=== PATIENT | male | born 2000 | race Two or more races ===

== ENCOUNTER 2021-04-04 16:27 | Emergency (ER) | payer MEDICAID ==
[~2021-04-04] VITALS: Ht 167.6 cm; Wt 114.5 kg
[2021-04-04 16:40] VITALS: BP 131/98
== END 2021-04-04 19:57 | disposition left against medical advice (07) ==
LOC: ER 16:27
DX: R10.9 Unspecified abdominal pain (principal); Z53.21 Procedure and treatment not carried out due to patient leaving prior to being seen by health care provider

== ENCOUNTER 2025-01-29 09:26 | Inpatient (IN) | payer MEDICAID ==
[~2025-01-29] VITALS: Ht 172.7 cm; Wt 105.9 kg
[2025-01-29] VITALS (33 sets, daily range): BP systolic 71–131; BP diastolic 39–104; PULSE 104–149; RESP 17–26; TEMP 93–97; O2SAT 89–100
[2025-01-29] MEDS: MIDAZOLAM DRIP 50 mg/50mL 50 ML IV SCH ×2 (10:00→15:56)
[2025-01-29] MEDS ORDERED: SODIUM CHLORIDE 0.9% 1,000 ML IV ONE ×2 (10:00)
[2025-01-29] MEDS: NOREPINEPHRINE 8 MG/250ML KIT 250 ML IV SCH (10:00)
[2025-01-29] MEDS: SODIUM CHLORIDE 0.9% 1,000 ML IV ONE ×5 (10:00→14:32)
[2025-01-29] MEDS: NOREPINEPHRINE 8 MG/250ML KIT 250 ML IV ONE ×2 (10:03→15:48)
--- NOTE | 2025-01-29 10:04 | ED.PDOC ---
CPR-HPI HPI Comments 24-year-old male, with a history of asthma, is brought in by ambulance from private residence for chief complaint of witnessed cardiac arrest. Per EMS personnel report, mother called at 0837, this morning, after patient stopped breathing in his bed following recent laparoscopy he had performed via outpatient, yesterday. Patient was reported to have been complaining of difficulty breathing in addition to excessive vomiting after returning home from said procedure, last night and this morning. EMS interventions include: Continuous CPR, 1 bicarb, 1 calcium, 5 epinephrine rounds (3 via push), I/O, 7.0 endotracheal intubation at 24 cm at the lip, 2 500 mL NS bolus. Outcome: Spontaneous ROSC achieved after total downtime of 10 minutes; pupils still fixed and dilated. 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 Allergies: Coded Allergies: NO KNOWN ALLERGIES (Unverified , 01/21/14) Information Source: Relative (Mother), Emergency Med Personnel Mode of Arrival: EMS Timing: Hours Onset: At rest, Witnessed Available Hx: Other (Reason outpatient surgical procedure) Treatment: Other (See HPI) Associated signs and symptoms: Other (See HPI) Past Medical History PAST MEDICAL HISTORY: Asthma, Gallstones Surgical History (Other): Laparoscopy-gallstones Family History Family History: Unknown Social History Smoker: Non-Smoker Alcohol: Denies ETOH Use Drugs: Denies Drug Use Lives In: Home All Other Systems: Reviewed and Negative (Comprehensive review of systems are otherwise negative unless stated in HPI.) Physical Exam General Appearance: Severe Distress HEENT: Other (Pupils fixed and dilated) Neck: NOT DONE Respiratory: Respiratory Distress, Other (Intubated) Cardiovascular: Tachycardia Breast Exam: Deferred Gastrointestinal: Distended Genitalia: Deferred Pelvic: Deferred Rectal: Deferred Extremities: NOT DONE Musculoskeletal : Apperance: Normal Neurologic: Other (Unconscious) Cerebellar Function: NOT DONE Reflexes: NOT DONE Skin: Pallor Peripheral Pulses: 3+ Radial (R), 3+ Radial (L) Lymphatic: No Adenopathy Was a procedure done? 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 Indication: Hypotension, Volume resuscitation, Inability to obtain IV Room prepared for procedure: Yes Electron Beam Welder performed hand hygien: Yes Maximal sterile barrier precau: Mask/Eye shield, Sterile gown, Cap, Sterlie gloves, Large sterlie drape Skin Preparation: Chlorhexidine gluconate, Alcohol Skin preparation completely dr: Yes Insertion site: Right, Internal jugular Central line catheter type: [id number] dialysis Number of lumens: 3 Central line exchanged over a: No Antiseptic ointment applied to: No Post Assessment: Chest X-Ray, Proper placement Informed consent obtained: No Risks/benefits/alt described: No Intubation Indication: Respiratory Insufficiency, Airway Protection Prep: Preoxygenation Medicated with: Other (100 mg Rocuronium and 20 mg etomidate) Intubation Approach: Orotracheal (8.0) Intubation size: cm (24cm) Informed consent obtained: No Risks/benefits/alt described: No Notes Patient had to be reintubated, due to suspected airway leakage with previous intubation performed by EMS personnel Differential Dx CPR Differential Diagnosis: Cardiopulmonary arrest, Dysrhythmia, Electrolyte disorder, Myocardial Infarction, Pulmonary Embolus, Respiratory Failure X-Ray, Labs, Meds, VS Vital Signs Date Time Temp Pulse Resp B/P (MAP) Pulse Ox O2 Delivery O2 Flow Rate FiO2 01/29/25 12:00 93.0 127 36 156/56 (89) 100 93.0 01/29/25 12:00 156/56 01/29/25 12:00 156/56 01/29/25 11:55 126 37 134/76 (95) 100 50 01/29/25 11:45 92.8 126 37 134/76 (95) 100 92.8 01/29/25 11:45 134/76 01/29/25 11:30 135/50 01/29/25 11:30 92.8 126 36 117/73 (88) 100 92.8 01/29/25 11:15 127 36 131/55 (80) 100 01/29/25 11:15 165/148 01/29/25 11:10 131/55 01/29/25 11:00 128 34 127/55 (79) 99 01/29/25 11:00 127/55 01/29/25 11:00 127/55 01/29/25 10:45 129/51 01/29/25 10:45 128 29 129/51 (77) 100 01/29/25 10:30 120 14 101/32 (55) 100 01/29/25 10:25 101/32 01/29/25 10:21 120 01/29/25 10:20 82/28 01/29/25 10:15 67/33 01/29/25 10:15 120 11 82/28 (46) 99 01/29/25 10:10 77/32 01/29/25 10:05 68/29 01/29/25 10:00 66/30 01/29/25 10:00 66/30 01/29/25 10:00 121 19 66/30 (42) 94 01/29/25 09:55 116 17 57/33 (41) 97 01/29/25 09:50 116 17 127/71 (89) 97 100 01/29/25 09:50 114 11 64/42 (49) 98 01/29/25 09:42 104 17 99 Mechanical Ventilator+ 60 60 01/29/25 09:42 104 17 134/103 (113) 99 01/29/25 09:26 103 16 127/71 91 Lab Test 01/29/25 11:38 01/29/25 11:28 01/29/25 10:49 01/29/25 09:36 Range/Units Blood Gas Specimen Type Arterial Blood Gas Sample Site Right radial Blood Gas Patient Temperature 37.0 Arterial Blood Date Drawn [id number] Arterial Blood pH 6.856 *L 7.350-7.450 Arterial Blood Partial Pressure CO2 30.4 L 35.0-48.0 mmHg Arterial Blood Partial Pressure O2 334.8 *H 83.0-108.0 mmHg Arterial Blood HCO3 5.3 L 21.0-28.0 mmol/L Arterial Blood Oxygen Saturation 99.0 H 94.0-98.0 % Arterial Blood Base Excess -26.8 L -2.0-3.0 mmol/L Arterial Blood Oxyhemoglobin 97.5 94.0-98.0 % Arterial Blood Carboxyhemoglobin 0.2 L 0.5-1.5 % Arterial Blood Methemoglobin 1.3 0.0-1.5 % Markus Test Modified Blood Gas Total Hemoglobin 8.80 L 13.5-17.5 g/dL Blood Gas Set Respiration Rate 16.0 Blood Gas Modality Vent - ac FiO2 % 100.0 Blood Gas Tidal Volume 500.0 Blood Gas PEEP or CPAP 5.0 Blood Gas Critical Value Read Back Yes Blood Gas Notified Whom dia Abdi Blood Gas Notified Time [id number] Blood Gas Notified By Ballpoint Pen Cartridge Tester yvette gilmore Prothrombin Time 17.5 H 9.3-11.8 sec Prothrombin Time INR 1.74 H 0.9-1.15 Lactic Acid Level 17.9 *H 0.4-2.0 mmol/L Troponin I High Sensitivity 2712 *H 2973 *H </=54 ng/L White Blood Count 20.1 H 4.4-10.8 10^3/uL Red Blood Count 2.69 L 4.5-5.90 10^6/uL Hemoglobin 8.3 L 13.5-17.5 g/dL Hematocrit 28.8 L 41.0-53.0 % Mean Corpuscular Volume 107.4 H 80.0-100.0 fL Mean Corpuscular Hemoglobin 31.0 28.0-32.0 pg Mean Corpuscular Hemoglobin Concent 28.8 L 32.0-36.0 g/dL Red Cell Distribution Width 15.0 H 11.8-14.3 % Platelet Count 234 140-450 10^3/uL Mean Platelet Volume 10.6 6.9-10.8 fL Neutrophils (%) (Auto) 67.3 37.0-80.0 % Lymphocytes (%) (Auto) 19.9 10.0-50.0 % Monocytes (%) (Auto) 12.2 H 0.0-12.0 % Eosinophils (%) (Auto) 0.4 0.0-7.0 % Basophils (%) (Auto) 0.2 0.0-2.0 % Neutrophils # (Auto) 13.6 H 1.6-8.6 10 ^3/uL Lymphocytes # (Auto) 4.0 0.4-5.4 10 ^3/uL Monocytes # (Auto) 2.5 H 0-1.3 10 ^3/uL Eosinophils # (Auto) 0.1 0-0.8 10 ^3/uL Basophils # (Auto) 0 0-0.2 10 ^3/uL Nucleated Red Blood Cells 0.8 % Sodium Level 146 H 136-145 mmol/L Potassium Level 5.6 *H 3.5-5.1 mmol/L Chloride Level 106 98-107 mmol/L Carbon Dioxide Level < 10 *L 20-31 mmol/L Anion Gap 30.44499 H 5-15 Blood Urea Nitrogen 27 H 9-23 mg/dL Creatinine 4.02 H 0.700-1.30 mg/dL Glomerular Filtration Rate Calc 20 >90 mL/min BUN/Creatinine Ratio 6.7 L 10.0-20.0 Serum Glucose 120 H 74-106 mg/dL Calcium Level 10.8 H 8.7-10.4 mg/dL Total Bilirubin 1.3 H 0.2-1.0 mg/dL Aspartate Amino Transferase (AST) 676 H 13-40 U/L Alanine Aminotransferase (ALT) 700 H 7-40 U/L Alkaline Phosphatase 136 H 46-116 U/L Total Protein 4.5 L 5.7-8.2 g/dL Albumin 2.7 L 3.2-4.8 g/dL Current Medications Medications (Trade) Dose Ordered Sig/Serenity Route Start Time Stop Time Status Last Admin Midazolam HCl 50 ml @ 1 mls/hr Q24H IV 01/29/25 10:00 01/29/25 14:28 DC 01/29/25 10:00 Norepinephrine Bitartrate 250 ml @ 3.75 mls/hr Q24H IV 01/29/25 10:00 01/29/25 10:00 Sodium Chloride 1,000 ml @ 1,000 mls/hr Q1H ONCE IV 01/29/25 10:00 01/29/25 10:59 DC 01/29/25 10:00 Sodium Chloride 1,000 ml @ 150 mls/hr Q6H40M ONCE IV 01/29/25 10:00 01/29/25 16:39 DC 01/29/25 10:00 Sodium Bicarbonate 150 ml ONCE ONCE IV 01/29/25 11:00 01/29/25 11:01 DC 01/29/25 11:55 Cefoxitin Sodium 1 gm/Dextrose 50 ml @ 50 mls/hr ONCE ONCE IV 01/29/25 12:45 01/29/25 13:44 DC 01/29/25 13:00 [facility] [id number] [place] [id number] Ph: [phone] DIAGNOSTIC IMAGING Diagnostic Imaging Report : [id number] Signed PATIENT: MARLON PAYNE ACCT: [id number] UNIT: [id number] : 2000 LOC: ER ROOM / BED: / AGE / SEX: 24 / M ADM STATUS: REG ER SERVICE [id number] ORDERING PHYSICIAN: EMIR LIMON MD PROCEDURE(s): CXRP - CHEST PORTABLE REASON: POST INTUBATION ORDER NUMBER(s): [id number], ACCESSION NUMBER(s): [id number] EXAM: XY CHEST PORTABLE Indication: POST INTUBATION Technique: Single frontal view of the chest was obtained Comparison: CT CT CHEST/AB/PL W CON- IV ONLY on DOS: 01/29/25 FINDINGS: Lines and Tubes: Endotracheal tube projects 2.2 cm above the meghan. Right internal jugular central venous catheter tip projects over superior vena cava. Lungs: No focal consolidation. Low lung volumes. Pleura: No effusion. No pneumothorax. Cardiomediastinal contours: Unremarkable Bones: No acute osseous abnormality. IMPRESSION: Lines and tubes as above. Low lung volumes. ATED BY: YURI PURCELL MD DICTATED DATE/TIME: 01/29/25 1034 SIGNED BY: YURI PURCELL MD SIGNED DATE/TIME: 01/29/25 1034 CC: [place] [id number] Ph: [phone] DIAGNOSTIC IMAGING Diagnostic Imaging Report : [id number] Signed PATIENT: MARLON PAYNE ACCT: [id number] UNIT: [id number] : 2000 LOC: ER ROOM / BED: / AGE / SEX: 24 / M ADM STATUS: REG ER SERVICE [id number] ORDERING PHYSICIAN: EMIR LIMON MD PROCEDURE(s): HWOCT - HEAD WITHOUT CONTRAST REASON: altered ORDER NUMBER(s): [id number], ACCESSION NUMBER(s): [id number] EXAM: CT HEAD WITHOUT CONTRAST INDICATION: Altered TECHNIQUE: CT of the head without intravenous contrast. Coronal and sagittal reformatted images are submitted. Radiation Dose : 1. Head: CT Dose: CTDI volume is 20.7 mGy. Dose-length product is 1683.6 mGy*cm The dose indicators for CT are the volume Computed Tomography (CT) Dose Index (CTDIvol) and the Dose Length Product (DLP), and are measured in units of mGy and mGy-cm, respectively. These indicators are not patient dose, but values generated from the CT scanner acquisition factors. The report includes radiation exposure data for exposures received during this examination. All CT scans at this medical facility are performed using dose modulation techniques as appropriate to a performed exam including the following: Automated exposure control was utilized; adjustment of the MA and/or KV according to patient size; and use of iterative reconstruction technique. COMPARISON: None FINDINGS: There is no evidence of acute intracranial hemorrhage, extra-axial collection, mass effect, midline shift, herniation or hydrocephalus. The ventricles, sulci and cisterns are age appropriate. The mario-white differentiation is intact. The visualized paranasal sinuses and mastoid air cells are clear. No depressed calvarial fracture. The surrounding soft tissues are unremarkable. IMPRESSION: 1. No evidence of acute intracranial abnormality. ATED BY: SUSIE TRAORE MD DICTATED DATE/TIME: 01/29/25 111 SIGNED BY: SUSIE TRAORE MD SIGNED DATE/TIME: 01/29/25 1112 CC: Patient unconscious pain Had CPR prior to coming. Pulses return prior to coming to the ER. Pupils fixed and dilated. ET tube not in place. Had to place new ET tube. EKG does not show any acute changes possible CPR induced ischemia. Abdomen is distended. Spent 45 minutes stabilizing the patient at bedside. He will possibly need blood. Possibly bleeding. Will hold off any blood thinners. WBC elevated. Possible sepsis. Establish intravenous access. Was given fluids. Potassium elevated. Recently had surgery [facility]. CT scan of the abdomen reviewed does show bleeding. Blood transfusion. Contacted the surgeon. Continue monitoring. Time of 1ST Reevaluation: 09:57 Reevaluation 1ST: Unchanged Patient Education/Counseling: Other (patient intubated ) Family Education/Counseling: Treatment SEPSIS Sepsis Screen Physician Orders Chest Portable (01/29/25 09:44) Rass Sedation Scale Q1HR (01/29/25 09:47) Norepinephrine 8 Mg/250ml Kit (Levophed) (01/29/25 10:00) Head Without Contrast (01/29/25 09:54) Urinalysis (01/29/25 09:54) Blood Culture (01/29/25 09:54) Ct Chest/Ab/Pl W Con- Iv Only (01/29/25 09:54) Abg W/ Co-Ox (01/29/25 11:00) Respiratory Culture W/ Gs (01/29/25 10:00) Vent Ip Init (01/29/25 09:50) Communication Order (01/29/25 10:05) Electrocardigram (01/29/25 10:23) Sodium Chloride 0.9% (01/29/25 11:00) Packedcells -Active Bleeding (01/29/25 11:19) Type And Screen (01/29/25 11:19) Sepsis Reassesment After Fluid (01/29/25 ) Initiate Sepsis Protocol (01/29/25 ) Communication Order (01/29/25 12:31) Frozen Plasma (01/29/25 13:02) Vital Signs Date Time Temp Pulse Resp B/P (MAP) Pulse Ox O2 Delivery O2 Flow Rate FiO2 01/29/25 12:00 93.0 127 36 156/56 (89) 100 93.0 01/29/25 12:00 156/56 01/29/25 12:00 156/56 01/29/25 11:55 126 37 134/76 (95) 100 50 01/29/25 11:45 92.8 126 37 134/76 (95) 100 92.8 01/29/25 11:45 134/76 01/29/25 11:30 135/50 01/29/25 11:30 92.8 126 36 117/73 (88) 100 92.8 01/29/25 11:15 127 36 131/55 (80) 100 01/29/25 11:15 165/148 01/29/25 11:10 131/55 01/29/25 11:00 128 34 127/55 (79) 99 01/29/25 11:00 127/55 01/29/25 11:00 127/55 01/29/25 10:45 129/51 01/29/25 10:45 128 29 129/51 (77) 100 01/29/25 10:30 120 14 101/32 (55) 100 01/29/25 10:25 101/32 01/29/25 10:21 120 01/29/25 10:20 82/28 01/29/25 10:15 67/33 01/29/25 10:15 120 11 82/28 (46) 99 01/29/25 10:10 77/32 01/29/25 10:05 68/29 01/29/25 10:00 66/30 01/29/25 10:00 66/30 01/29/25 10:00 121 19 66/30 (42) 94 01/29/25 09:55 116 17 57/33 (41) 97 01/29/25 09:50 116 17 127/71 (89) 97 100 01/29/25 09:50 114 11 64/42 (49) 98 01/29/25 09:42 104 17 99 Mechanical Ventilator+ 60 60 01/29/25 09:42 104 17 134/103 (113) 99 01/29/25 09:26 103 16 127/71 91 Laboratory Tests Test 01/29/25 09:36 01/29/25 10:49 White Blood Count 20.1 10^3/uL (4.4-10.8) H Lactic Acid Level 17.9 mmol/L (0.4-2.0) *H Medications Medications Dose Ordered Sig/Serenity Route Start Time Stop Time Status Last Admin Dose Admin Bupivacaine HCl 30 ml STK-MED ONCE IJ 01/29/25 12:10 01/29/25 12:07 DC 01/29/25 12:41 Cefoxitin Sodium 1 gm/Dextrose 50 ml @ 50 mls/hr ONCE ONCE IV 01/29/25 12:45 01/29/25 13:44 DC 01/29/25 13:00 Lidocaine HCl 20 ml STK-MED ONCE .ROUTE 01/29/25 12:10 01/29/25 12:06 DC 01/29/25 12:41 Lidocaine HCl 20 ml STK-MED ONCE .ROUTE 01/29/25 12:48 01/29/25 12:44 DC 01/29/25 12:41 Midazolam HCl 50 ml @ 1 mls/hr Q24H IV 01/29/25 10:00 01/29/25 14:28 DC 01/29/25 10:00 Norepinephrine Bitartrate 250 ml @ 3.75 mls/hr Q24H IV 01/29/25 10:00 01/29/25 10:00 Sodium Bicarbonate 150 ml ONCE ONCE IV 01/29/25 11:00 01/29/25 11:01 DC 01/29/25 11:55 Sodium Chloride 1,000 ml @ 150 mls/hr Q6H40M ONCE IV 01/29/25 10:00 01/29/25 16:39 DC 01/29/25 10:00 Sodium Chloride 1,000 ml @ 1,000 mls/hr Q1H ONCE IV 01/29/25 10:00 01/29/25 10:59 DC 01/29/25 10:00 Departure 1 Departure Time of Disposition: 10:39 Impression: Primary Impression: Acute respiratory failure Qualified Codes: J96.01 - Acute respiratory failure with hypoxia Additional Impressions: Sepsis, unspecified organism Qualified Codes: A41.9 - Sepsis, unspecified organism Hyperkalemia Disposition: ADMITTED INPATIENT Admit to: Med Surg Condition: Guarded Critical Care Note Critical Care Time?: Yes (90 min-critical care time only) Heart Score Heart Score: Heart Score Response (Comments) Value History Highly Suspicious 2 EKG Normal 0 Age <45 0 Risk Factors 1 or 2 risk factors 1 Troponin >3 x's Normal limit 2 Total 5 Stability Stability form required: No I personally scribed for EMIR LIMON MD ([email or web address]) on 01/29/25 at 10:04. Electronically submitted by Dany Cruz ([email or web address]). I personally scribed for EMIR LIMON MD ([email or web address]) on 01/29/25 at 10:56. E lectronically submitted by Dany Cruz ([email or web address]). I personally scribed for EMIR LIMON MD ([email or web address]) on 01/29/25 at 15:30. Electronically submitted by Dany Cruz ([email or web address]). I personally scribed for EMIR LIMON MD ([email or web address]) on 01/29/25 at 15:32. Electronically submitted by Dany Cruz ([email or web address]). EMIR LIMON MD Jan 29, 2025 10:04
[2025-01-29 10:12] LABS: Hematocrit 28.8 % (41.0-53.0); Hemoglobin 8.3 g/dL (13.5-17.5); Mean Corpuscular Hemoglobin 31.0 pg (28.0-32.0); Mean Corpuscular Volume 107.4 fL (80.0-100.0); Nucleated Red Blood Cells % 0.8 %
--- NOTE | 2025-01-29 10:26 | ECG ---
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
[2025-01-29 10:32] LABS: Anion Gap 30.00001 (5-15); BUN/Creatinine Ratio 6.7 (10.0-20.0); Chloride 106 mmol/L (98-107)
[2025-01-29 10:33] LABS: Alanine Aminotransferase 700 U/L (7-40); Albumin 2.7 g/dL (3.2-4.8); Alkaline Phosphatase 136 U/L (46-116); Bilirubin, Total 1.3 mg/dL (0.2-1.0); Blood Urea Nitrogen 27 mg/dL (9-23); Calcium 10.8 mg/dL (8.7-10.4); Glucose 120 mg/dL (74-106); Sodium 146 mmol/L (136-145); Total Protein 4.5 g/dL (5.7-8.2)
--- NOTE | 2025-01-29 10:36 | DVH ---
EXAM: XY CHEST PORTABLE Indication: POST INTUBATION Technique: Single frontal view of the chest was obtained Comparison: CT CT CHEST/AB/PL W CON- IV ONLY on DOS: 01/29/25 FINDINGS: Lines and Tubes: Endotracheal tube projects 2.2 cm above the meghan. Right internal jugular central v enous catheter tip projects over superior vena cava. Lungs: No focal consolidation. Low lung volumes. Pleura: No effusion. No pneumothorax. Cardiomediastinal contours: Unremarkable Bones: No acute osseous abnormality. IMPRESSION: Lines and tubes as above. Low lung volumes.
[2025-01-29 10:38] LABS: Carbon Dioxide < 10 mmol/L (20-31); Potassium 5.6 mmol/L (3.5-5.1)
--- NOTE | 2025-01-29 11:14 | DVH ---
EXAM: CT HEAD WITHOUT CONTRAST INDICATION: Altered TECHNIQUE: CT of the head without intravenous contrast. Coronal and sagittal reformatted images are s ubmitted. Radiation Dose : 1. Head: CT Dose: CTDI volume is 20.7 mGy. Dose-length product is 1683.6 mGy*cm The dose indicators for CT are the volume Computed Tomography (CT) Dose Index (CTDIvol) and the Dose Length Product (DLP), and are measured in units of mGy and mGy-cm, respectively. These indicators are not patient dose, but values generated from the CT scanner acquisition factors. The report includes radiation exposure data for exposures received during this examination. All CT scans at this medical facility are performed using dose modulation techniques as appropriate to a performed exam including the following: Automated exposure control was utilized; adjustment of the MA and/or KV according to patient size; and use of iterative reconstruction technique. COMPARISON: None FINDINGS: There is no evidence of acute intracranial hemorrhage, extra-axial collection, mass effect, midline s hift, herniation or hydrocephalus. The ventricles, sulci and cisterns are age appropriate. The mario-white differentiation is intact. The visualized paranasal sinuses and mastoid air cells are clear. No depressed calvarial fracture. The surrounding soft tissues are unremarkable. IMPRESSION: 1. No evidence of acute intracranial abnormality.
--- NOTE | 2025-01-29 11:32 | DVH ---
CLINICAL INFORMATION: Bleeding. Acute loss of consciousness status post surgery. TECHNIQUE: Axial CT images of the chest, abdomen, and pelvis were obtained after the uneventful admin istration of 100 mL of Omnipaque 350 IV contrast. Coronal and sagittal reformatted images were obtain ed, reviewed, and stored. All CT scans at this medical facility are performed using dose modulation t echniques as appropriate to a performed exam including the following: Automated exposure control was utilized; adjustment of the MA and/or KV according to patient size; and use of iterative reconstructi on technique. CTDIvol = 59.91 mGy DLP = 2876.0 mGy-cm COMPARISON: XY CHEST PORTABLE on DOS: 01/29/25 FINDINGS: CT CHEST: Aorta: No aneurysm or dissection. Cardiac: Heart size is within normal limits. No significant calcification. Mediastinum/ana paula: No mass or adenopathy. Endotracheal tube in place, with the tip above the level of the meghan. Enteric tube reaches the stomach. Lungs: Dependent atelectasis. Respiratory motion artifact limits evaluation for subtle findings. No p neumothorax or pleural effusion visualized. Pulmonary arteries: No gross abnormality. Chest wall: No mass or other abnormality. Bones: No acute fracture or suspicious intraosseous lesions. CT ABDOMEN/PELVIS: Liver: There is a large hematoma involving the central aspect of the liver, including portions of the right and left hepatic lobes, poorly delineated from the adjacent liver parenchyma, but appears to m easure at least 7.6 x 8.6 cm, extending adjacent to the gallbladder fossa and communicating beyond th e anterior and lateral aspects of the liver capsule into the adjacent portions of the abdomen and alisia ng the right pericolic gutter. The hemorrhage appears acute. No definite active extravasation of cont rast demonstrated, although examination was not performed as a CTA. Biliary: Postsurgical changes of cholecystectomy with surgical clips at the gallbladder fossa. No aretha iary ductal dilatation. Spleen: Small amount of perisplenic fluid, may be tracking from the hemorrhage associated with the li mary described above. Pancreas: Unremarkable. No inflammatory changes, ductal dilatation, or mass identified. Adrenal glands: Unremarkable. No mass. Kidneys: Atrophic right kidney. There is no hydronephrosis in either kidney. Aorta: No abdominal aortic aneurysm or dissection. Retroperitoneum: No mass or lymphadenopathy. Bowel/mesentery: There are dilated fluid-filled small bowel loops. No transition point to suggest sma ll bowel obstruction. Appendix is visualized and appears unremarkable. Moderate hemorrhage adjacent to the liver, along the right pericolic gutter, and coursing into the pelvis. Small locules of free i ntraperitoneal gas are seen in the upper abdomen, likely due to recent surgery. Pelvic organs: Grossly unremarkable. Bladder: Underdistended and not well evaluated. Circumferential thickening of the bladder wall may b e due to underdistention. Abdominal wall: Small locules of gas in the upper ventral abdominal wall, likely due to recent surger y. Bones: No acute fracture or focal intraosseous lesion. IMPRESSION: 1. Hepatic hematoma measuring up to approximately 8.6 cm in greatest dimension, as described above, w ith hemorrhage extending beyond the liver capsule and into the right pericolic gutter as well as into the pelvis. No definite active arterial bleeding is seen on this exam, although limited evaluation d ue to the timing of contrast, as this was not a CTA exam. 2. Postsurgical changes of cholecystectomy. 3. Dilated fluid-filled small bowel loops, may be due to postoperative ileus. No small bowel obstruct ion. 4. Small volume pneumoperitoneum, likely due to recent surgery. Small volume of gas are seen in the u pper ventral abdomen from the recent surgery. 5. Dependent atelectasis in the lower lobes. Otherwise, no acute disease in the chest. 6. Endotracheal tube and enteric tube in place. 7. Atrophic right kidney incidentally noted. 8. Additional findings as described above. Critical findings Critical Result: Acute hepatic hematoma with hemorrhage extending beyond the liver capsule into the a djacent portions of the abdomen and into the pelvis as detailed above. Findings discussed with EMIR FLOWERS at 01/29/2025 01:15 PM CDT, and acknowledged receipt an d understanding of the findings. ..
[2025-01-29] MEDS: ROCURONIUM 10MG/ML 10ML VIAL IV ONE ×2 (11:39→12:14)
[2025-01-29] MEDS: MIDAZOLAM HCL 5 MG/ML-1ML VIAL ONE (11:39)
[2025-01-29] MEDS: ETOMIDATE (2MG/ML) 20ML VIAL IV ONE ×2 (11:39→12:13)
[2025-01-29] MEDS ORDERED: fentaNYL CITRATE 5 ML ONE (11:40)
[2025-01-29] MEDS ORDERED: MORPHINE SULF PF 5 MG/10 ML VIAL ONE (11:40)
[2025-01-29] MEDS ORDERED: fentaNYL CITRATE 100 MCG/2 ML VL ONE (11:40)
[2025-01-29] MEDS ORDERED: MIDAZOLAM HCL 2MG/2ML 2ml VIAL (1mg/ml) ONE (11:40)
[2025-01-29] MEDS ORDERED: ROCURONIUM 10MG/ML 10ML VIAL IV ONE (11:40)
[2025-01-29] MEDS ORDERED: KETAMINE 50mg/ML 10ml Vial 10 ML ONE (11:45)
[2025-01-29 11:50] LABS: Base Excess -26.8 mmol/L (-2.0-3.0)
[2025-01-29 11:52] LABS: INR 1.74 (0.9-1.15); Prothrombin Time 17.5 sec (9.3-11.8)
[2025-01-29 11:53] LABS: Lactic Acid w/Reflex 17.9 mmol/L (0.4-2.0)
[2025-01-29] MEDS: SODIUM BICARB 8.4% 50Meq/50ml SYR Vial IV ONE ×7 (11:55→20:00)
[2025-01-29] MEDS: IOHEXOL 300 MG/ML 100ML BOTTLE IJ ONE (12:37)
[2025-01-29] MEDS: MIDAZOLAM DRIP 50 mg/50mL 50 ML IV ONE (12:37)
[2025-01-29] MEDS: VASOPRESSIN 20 UNIT/ML ONE ×2 (12:39→21:17)
[2025-01-29] MEDS: MIDAZOLAM HCL 5 MG/ML-1ML VIAL IV ONE (12:40)
[2025-01-29] MEDS: LIDOCAINE 1% HCL (LOCAL ANESTH.) INJ 20ML MDV ONE ×2 (12:41)
[2025-01-29] MEDS: BUPIVACAINE 0.5% MPF INJ 30ML SDV IJ ONE (12:41)
[2025-01-29] MEDS: GELATIN 1 SPONGE SIZE 100 TOP ONE (12:48)
--- NOTE | 2025-01-29 12:55 | DVHINCON2 ---
DATE OF CONSULTATION: 01/29/2025 REQUESTING PHYSICIAN: Jet Monzon MD CONSULTING PHYSICIAN: Robbin Ledesma MD REASON FOR CONSULTATION: Cardiac arrest, postoperative bleeding. HISTORY OF PRESENT ILLNESS: The patient is a 24-year-old male who underwent an uneventful laparoscopic cholecystectomy yesterday. The patient was discharged with stable vital signs, no signs of hemodynamic instability or bleeding. The patient's mother called this morning stating that he was very somnolent, not waking up, and barely responsive. She was instructed to take him to the nearest Emergency Department. At that time, she had already called the emergency paramedics/personnel. The patient arrived to the hospital and developed a cardiac arrest and he was successfully resuscitated. Workup revealed findings consistent with postoperative bleeding in the gallbladder fossa. The patient's history was obtained from the patient's mother. The patient is currently intubated. The patient's mother stated that he was very hungry yesterday. He ate and drank. He developed some nausea and vomiting but no other symptoms. This morning when she went to see him, he was very lethargic. He did wake up but he was very weak. She denied any signs of bleeding from the dressings and denied any abdominal distention. PAST MEDICAL HISTORY: Significant for gallstone pancreatitis and obesity. No other medical history. SURGICAL HISTORY: Recent laparoscopic cholecystectomy. MEDICATIONS: None. ALLERGIES: No known drug allergies. SOCIAL HISTORY: Denies smoking cigarettes, alcohol use, drug use, marijuana use, or vaping. FAMILY HISTORY: Noncontributory. REVIEW OF SYSTEMS: Unobtainable. The patient is intubated with mechanical ventilatory support and sedated. PHYSICAL EXAMINATION: GENERAL: He is laying in bed. He is sedated. VITAL SIGNS: He is afebrile with hemodynamic instability. He is receiving vasopressor support Levophed 8 mcg. Blood pressure at the time was 156/56. Heart rate was in the 150s. HEART: As above. LUNGS: The patient is intubated with mechanical ventilatory support. ABDOMEN: Soft, distended, nontender. No palpable masses, hernias, or visceromegaly. Dressing is intact without signs of bleeding. EXTREMITIES: No edema or tenderness. LABORATORY DATA: Review of his labs demonstrate white blood cell count 20, hemoglobin 8, hematocrit 28. Sodium 146, potassium 5.6, chloride 106, CO2 less than 10, BUN 27, creatinine 4, glucose 120, alkaline phos 136, ALT 700, AST 776, total bilirubin 1.3, lactic acid 17.9. Troponin 29. INR 1.7, PT 17. ABG: pH 7.8, pCO2 30, PaO2 334, bicarb 5, oxygen saturation 99%, and -26 base deficit. IMAGING DATA: CT scan of the abdomen and pelvis reviewed. Postoperative changes consistent with a cholecystectomy. There is blood in the anterior aspect of the liver, gallbladder fossa extending to right paracolic gutter. ASSESSMENT: A 24-year-old male with postoperative bleeding. PLANS AND RECOMMENDATIONS: I had a very intense discussion with the patient's mother. I recommended an emergent exploratory laparotomy. The patient's mother was aware that the attempt will be to control the bleeding. He may require additional procedures. There is risk of injury, stroke, blood clots in legs/lungs, and/or . All questions were answered. She understood and agreed to proceed. MD LAYA Mora/KHADIJAH TID: [id number] RECEIPT: [id number]
[2025-01-29] MEDS ORDERED: HYDROmorphone HCL 2 MG/ML VL/or syr ONE (13:31)
[2025-01-29] MEDS: fentaNYL Drip 2500mCg/250mlNS 250 ML IV SCH (14:15)
--- NOTE | 2025-01-29 14:16 | DVHINCON2 ---
Date of service: Jan 29, 2025 Reason for Consultation Acute kidney injury History of Present Illness 24 years old male with past medical history gallstone pancreatitis, asthma who underwent laparoscopic cholecystectomy on 01/28/2025 in [facility] patient was discharged on same day,, as per medical records patient found to have nausea vomitings and shortness of breath last night and woke up very weak this morning found to have altered level of consciousness and paramedics were called and patient found to be in cardiac arrest CPR was done ROSc obtained however patient had fixed and dilated pupils per ER documentation on Arrival I was called to assess patient in PACU today after his repeat laparotomy, he is found to have gallbladder fossa bleeding, I am unable to assess his pupils as his eyes were covered in plasters , patient is on Levophed, intubated and sedated, has PATRIZIA drain, with Green catheter and no urine output. No family available bedside Past Medical History As per HPI Past Surgical History As per HPI Allergies: Coded Allergies: NO KNOWN ALLERGIES (Unverified , 01/21/14) Current Medications Current Medications Medications (Trade) Dose Ordered Sig/Serenity Route PRN Reason Start Time Stop Time Status Last Admin Midazolam HCl 50 ml @ 1 mls/hr Q24H IV 01/29/25 10:00 01/29/25 14:28 DC 01/29/25 10:00 Norepinephrine Bitartrate 250 ml @ 3.75 mls/hr Q24H IV 01/29/25 10:00 01/29/25 10:00 Midazolam HCl 50 ml @ 1 mls/hr Q24H IV 01/29/25 14:15 01/29/25 15:56 Fentanyl Citrate 250 ml @ 2.5 mls/hr Q24H IV 01/29/25 14:15 Piperacillin Sod/ Tazobactam Sod 50 ml @ 50 mls/hr Q12HR IV 01/29/25 22:00 01/29/25 15:01 DC Vasopressin 20 units/Sodium Chloride 100 ml @ 9 mls/hr Q11H7M IV 01/29/25 15:00 01/29/25 15:39 Piperacillin Sod/ Tazobactam Sod 100 ml @ 25 mls/hr Q12HR IV 01/29/25 22:00 Pantoprazole Sodium (Protonix) 40 mg DAILY IV 01/30/25 10:00 Review of Systems Unable to obtain H&P Exam Vital Signs/I&O Vital Sign Date Time Temp Pulse Resp B/P (MAP) Pulse Ox O2 Delivery O2 Flow Rate FiO2 01/29/25 16:11 119/62 01/29/25 15:58 93.0 139 18 100 93.0 01/29/25 14:20 50 01/29/25 09:42 Mechanical Ventilator+ Physical Exam General intubated and sedated,, overall very pale HEENT-normocephalic, Respiratory-fair air entry bilateral, [id number] heard, tachycardic Abdominal appears distended has PATRIZIA drain Labs/Diagnostic Data Labs/Diagnostic Data Laboratory Tests Test 01/29/25 15:23 01/29/25 14:30 01/29/25 11:38 01/29/25 11:28 Range/Units Blood Gas Specimen Type Arterial Arterial Blood Gas Sample Site Arterial line Right radial Blood Gas Patient Temperature 37.0 37.0 Arterial Blood Date Drawn [id number] Arterial Blood pH 6.956 *L 6.856 *L 7.350-7.450 Arterial Blood Partial Pressure CO2 39.2 30.4 L 35.0-48.0 mmHg Arterial Blood Partial Pressure O2 136.2 H 334.8 *H 83.0-108.0 mmHg Arterial Blood HCO3 8.5 L 5.3 L 21.0-28.0 mmol/L Arterial Blood Oxygen Saturation 95.9 99.0 H 94.0-98.0 % Arterial Blood Base Excess -21.7 L -26.8 L -2.0-3.0 mmol/L Arterial Blood Oxyhemoglobin 94.5 97.5 94.0-98.0 % Arterial Blood Carboxyhemoglobin 0.3 L 0.2 L 0.5-1.5 % Arterial Blood Methemoglobin 1.2 1.3 0.0-1.5 % Markus Test N/a Modified Blood Gas Total Hemoglobin 6.80 *L 8.80 L 13.5-17.5 g/dL Blood Gas Set Respiration Rate 16.0 16.0 Blood Gas Modality Vent - ac Vent - ac FiO2 % 50.0 100.0 Blood Gas Tidal Volume 550.0 500.0 Blood Gas PEEP or CPAP 5.0 5.0 Blood Gas Critical Value Read Back Yes Yes Blood Gas Notified Whom aranza Landa Md t Blood Gas Notified Time [id number] Blood Gas Notified By Supervisor [facility] yvette gilmore Supervisor [facility] yvette gilmore White Blood Count 19.0 H 4.4-10.8 10^3/uL Red Blood Count 2.11 L 4.5-5.90 10^6/uL Hemoglobin 6.5 #*L 13.5-17.5 g/dL Hematocrit 20.0 #L 41.0-53.0 % Mean Corpuscular Volume 94.6 # 80.0-100.0 fL Mean Corpuscular Hemoglobin 30.9 28.0-32.0 pg Mean Corpuscular Hemoglobin Concent 32.6 32.0-36.0 g/dL Red Cell Distribution Width 13.6 11.8-14.3 % Platelet Count 223 140-450 10^3/uL Mean Platelet Volume 9.3 6.9-10.8 fL Neutrophils (%) (Auto) 37.0-80.0 % Lymphocytes (%) (Auto) 10.0-50.0 % Monocytes (%) (Auto) 0.0-12.0 % Basophils (%) (Auto) 0.0-2.0 % Neutrophils # (Auto) 1.6-8.6 10 ^3/uL Lymphocytes # (Auto) 0.4-5.4 10 ^3/uL Monocytes # (Auto) 0-1.3 10 ^3/uL Differential Total Cells Counted 100.0 100 Neutrophils % (Manual) 54 37.0-80.0 Band Neutrophils % (Manual) 14 Lymphocytes % (Manual) 24 10.0-50.0 Monocytes % (Manual) 7 0-12 Eosinophils % (Manual) 0 0-7 Basophils % (Manual) 0 0.0-2.0 Metamyelocytes % (manual) 1 Myelocytes % (Manual) 0 Promyelocytes % (Manual) 0 Blast Cells % (Manual) 0 Nucleated Red Blood Cells 1.0 % Reactive Lymphocytes 0 Platelet Estimate Adequate Anisocytosis (manual) Slight Prothrombin Time 19.6 H 17.5 H 9.3-11.8 sec Prothrombin Time INR 1.98 H 1.74 H 0.9-1.15 Activated Partial Thromboplast Time 53.8 H 24.5-34.5 SEC Sodium Level 152 #H 136-145 mmol/L Potassium Level 4.6 3.5-5.1 mmol/L Chloride Level 108 H 98-107 mmol/L Carbon Dioxide Level 13 L 20-31 mmol/L Anion Gap 31 H 5-15 Blood Urea Nitrogen 30 H 9-23 mg/dL Creatinine 3.78 H 0.700-1.30 mg/dL Glomerular Filtration Rate Calc 22 >90 mL/min BUN/Creatinine Ratio 7.9 L 10.0-20.0 Serum Glucose 53 L 74-106 mg/dL Lactic Acid Level 17.2 *H 0.4-2.0 mmol/L Calcium Level 7.0 L 8.7-10.4 mg/dL Total Bilirubin 1.3 H 0.2-1.0 mg/dL Aspartate Amino Transferase (AST) 2327 H 13-40 U/L Alanine Aminotransferase (ALT) 2056 H 7-40 U/L Alkaline Phosphatase 160 H 46-116 U/L Troponin I High Sensitivity 4364 *H </=54 ng/L Total Protein 3.1 L 5.7-8.2 g/dL Albumin 1.9 L 3.2-4.8 g/dL Test 01/29/25 10:49 01/29/25 09:36 Range/Units Lactic Acid Level 17.9 *H 0.4-2.0 mmol/L Troponin I High Sensitivity 2712 *H 2973 *H </=54 ng/L White Blood Count 20.1 H 4.4-10.8 10^3/uL Red Blood Count 2.69 L 4.5-5.90 10^6/uL Hemoglobin 8.3 L 13.5-17.5 g/dL Hematocrit 28.8 L 41.0-53.0 % Mean Corpuscular Volume 107.4 H 80.0-100.0 fL Mean Corpuscular Hemoglobin 31.0 28.0-32.0 pg Mean Corpuscular Hemoglobin Concent 28.8 L 32.0-36.0 g/dL Red Cell Distribution Width 15.0 H 11.8-14.3 % Platelet Count 234 140-450 10^3/uL Mean Platelet Volume 10.6 6.9-10.8 fL Neutrophils (%) (Auto) 67.3 37.0-80.0 % Lymphocytes (%) (Auto) 19.9 10.0-50.0 % Monocytes (%) (Auto) 12.2 H 0.0-12.0 % Eosinophils (%) (Auto) 0.4 0.0-7.0 % Basophils (%) (Auto) 0.2 0.0-2.0 % Neutrophils # (Auto) 13.6 H 1.6-8.6 10 ^3/uL Lymphocytes # (Auto) 4.0 0.4-5.4 10 ^3/uL Monocytes # (Auto) 2.5 H 0-1.3 10 ^3/uL Eosinophils # (Auto) 0.1 0-0.8 10 ^3/uL Basophils # (Auto) 0 0-0.2 10 ^3/uL Nucleated Red Blood Cells 0.8 % Sodium Level 146 H 136-145 mmol/L Potassium Level 5.6 *H 3.5-5.1 mmol/L Chloride Level 106 98-107 mmol/L Carbon Dioxide Level < 10 *L 20-31 mmol/L Anion Gap 30.24699 H 5-15 Blood Urea Nitrogen 27 H 9-23 mg/dL Creatinine 4.02 H 0.700-1.30 mg/dL Glomerular Filtration Rate Calc 20 >90 mL/min BUN/Creatinine Ratio 6.7 L 10.0-20.0 Serum Glucose 120 H 74-106 mg/dL Calcium Level 10.8 H 8.7-10.4 mg/dL Total Bilirubin 1.3 H 0.2-1.0 mg/dL Aspartate Amino Transferase (AST) 676 H 13-40 U/L Alanine Aminotransferase (ALT) 700 H 7-40 U/L Alkaline Phosphatase 136 H 46-116 U/L Total Protein 4.5 L 5.7-8.2 g/dL Albumin 2.7 L 3.2-4.8 g/dL Assessment Acute kidney injury likely ischemic ATN in the setting of shock Hyperkalemia secondary to above Metabolic acidosis anion gap secondary to lactic acidosis secondary to reduced perfusion from hemorrhage Hemodynamic shock from bleeding Acute blood loss anemia/post op Status post laparoscopic cholecystectomy on 01/28/25 Positive troponins NSTEMI--likely demand ischemia Ventilator-dependent hypoxic respiratory failure Obesity Recommendations IV bicarb pushes as ordered three amps Bicarb drip for 1 L PH severely acidotic 6.8 Bumex IV one time dose/k better on repeat labs Check BMP later today Consideration for renal replacement therapy if renal parameters get worse by tomorrow No indication for urgent hemodialysis today Reviewed vital signs, lab work, imaging studies, medications, microbiology, other physician recommendations Total time spent 80 minutes More than 50% of the time spent providing direct [id number] care . Thank you for allowing me to participate in the care of your patient. Plan discussed with: Other SILVIA NOONAN MD Jan 29, 2025 14:16
[2025-01-29] MEDS: PIPERACILLIN-TAZOB 3.375GM 100 ML IV ONE (14:33)
[2025-01-29] MEDS: VANCOMYCIN 1GM/250ML KIT 250 ML IV ONE (14:33)
[2025-01-29] MEDS: CALCIUM GLUC 1,000mg/50ml-NS 50 ML IV ONE (14:33)
[2025-01-29 14:42] LABS: Hematocrit 20.0 % (41.0-53.0)
[2025-01-29 14:44] LABS: Mean Corpuscular Hemoglobin 30.9 pg (28.0-32.0); Mean Corpuscular Volume 94.6 fL (80.0-100.0)
--- NOTE | 2025-01-29 14:52 | DVH ---
CHEST RADIOGRAPH Indication: VDRF Technique: Single frontal view of the chest was obtained COMPARISON: CT CT CHEST/AB/PL W CON- IV ONLY on DOS: 01/29/25, XY CHEST PORTABLE on DOS: 01/29/25 FINDINGS: Lines and Tubes: Endotracheal tube, enteric catheter and right central venous catheter in satisfactor y position. Lungs: Congestion Pleura: No effusion. No pneumothorax. Cardiomediastinal contours: Cardiomegaly Bones: Unremarkable IMPRESSION: Lines and tubes in satisfactory position. Mild increased pulmonary vascular congestion
[2025-01-29 14:57] LABS: INR 1.98 (0.9-1.15); Partial Thromboplastin Time 53.8 SEC (24.5-34.5); Prothrombin Time 19.6 sec (9.3-11.8)
[2025-01-29 14:59] LABS: Hemoglobin 6.5 g/dL (13.5-17.5)
[2025-01-29] MEDS: SODIUM BICARB 50mEq/50ml Vial 150 ML in D5W 5% 1,000 ML IV ONE (15:05)
[2025-01-29 15:18] LABS: Anion Gap 31 (5-15)
[2025-01-29 15:24] LABS: BUN/Creatinine Ratio 7.9 (10.0-20.0)
[2025-01-29 15:34] LABS: Alanine Aminotransferase 2056 U/L (7-40); Albumin 1.9 g/dL (3.2-4.8); Alkaline Phosphatase 160 U/L (46-116); Bilirubin, Total 1.3 mg/dL (0.2-1.0); Blood Urea Nitrogen 30 mg/dL (9-23); Calcium 7.0 mg/dL (8.7-10.4); Carbon Dioxide 13 mmol/L (20-31); Chloride 108 mmol/L (98-107); Glucose 53 mg/dL (74-106); Potassium 4.6 mmol/L (3.5-5.1); Sodium 152 mmol/L (136-145); Total Protein 3.1 g/dL (5.7-8.2)
[2025-01-29 15:35] LABS: Base Excess -21.7 mmol/L (-2.0-3.0)
[2025-01-29] MEDS: VASOPRESSIN 20 UNITS in SODIUM CHL 0.9% 99 ML IV SCH (15:39)
[2025-01-29 16:09] LABS: Total Cells Counted 100.0 (100)
[2025-01-29 16:10] LABS: Anisocytosis Slight; Nucleated Red Blood Cells % 1.0 %
[2025-01-29] MEDS: BUMETANIDE 2.5mg/10ml (0.25 mg/ml) INJ IV ONE (16:11)
[2025-01-29] MEDS: PROTHROMBIN COMPLEX CONCENTRAT 2,000 UNIT in STERILE WATER 80 ML IV ONE (16:16)
[2025-01-29] MEDS: PANTOPRAZOLE 40 MG/10 ML VIAL INJ IV ONE (16:20)
[2025-01-29] MEDS: D5W/SOD CHL 0.45% 1,000 ML IV SCH (16:30)
[2025-01-29] MEDS: TRANEXAMIC ACID 1,000 MG in SODIUM CHL 0.9% 100 ML IV ONE (16:35)
--- NOTE | 2025-01-29 16:38 | DVHOP ---
DATE OF SURGERY: 01/29/2025 DATE OF SURGERY: 01/29/2025. PREOPERATIVE DIAGNOSIS: Postoperative bleeding with hemorrhagic shock. POSTOPERATIVE DIAGNOSIS: Postoperative bleeding with hemorrhagic shock. PROCEDURE: Exploratory laparotomy, evacuation of hemoperitoneum. SURGEON: Robbin Ledesma MD. UPHOLSTERY TECHNICIAN: None. ANESTHESIOLOGIST: Dr. Cantu. ANESTHESIA: General by means of endotracheal intubation. INTRAOPERATIVE FINDINGS: Approximately 500-750 mL of thrombus and dark blood. No evidence of active bleeding. ESTIMATED BLOOD LOSS: Minimal from the procedure itself. Approximately 500-750 mL of thrombus and liquefied dark blood in the peritoneal cavity. IV FLUIDS: Per Anesthesia charting. BLOOD PRODUCTS: Per Anesthesia charting. URINE OUTPUT: Not recorded given Green catheter had not been inserted. SPECIMENS: None. COMPLICATIONS: None. DISPOSITION: Procedure well tolerated. Transferred to the recovery room in a critical condition. INDICATIONS FOR PROCEDURE: The patient is a 24-year-old male who underwent an uneventful laparoscopic cholecystectomy yesterday. He remained stable throughout his postoperative course in the recovery room and was discharged home in a stable condition. The patient returned to the emergency department at this institution. Per the patient's mother's report, he was extremely weak and somnolent. He would respond but will fall asleep and therefore, the ambulance was called. He was brought to the emergency department. Reportedly, he developed cardiac arrest requiring resuscitation as well as intubation. The patient was noted to have hemoperitoneum. I was immediately informed about the findings after the CT scan was obtained and immediately scheduled him for emergent intervention. Upon my arrival to the ER, the patient was intubated with mechanical ventilator support as well as vasopressor support. His abdomen was distended. He was found to be anemic with metabolic acidosis, renal failure, and elevated LFTs, all secondary to shock. White blood cell count elevated, likely secondary to hemorrhagic shock and hemoperitoneum. CT scan images were reviewed, identified hemoperitoneum. A lengthy discussion was held with the patient's mother as he was not able to consent for himself. I recommended an emergent laparotomy. The patient's mother was aware that the goal was to identify the source of bleeding and control. She was aware of potential complications such as bleeding, infection, need for additional procedures, injury to internal organs, blood vessels, and/or nerves, requiring additional procedures in the future, blood clot in legs/lungs, heart attack, stroke, and/or . All questions were answered. She understood and agreed to proceed. DESCRIPTION OF PROCEDURE: The patient was taken to the operating room. He was placed in the dorsal decubitus position on the operative room table. Once adequate anesthesia was achieved, all dressings were removed and the abdomen was widely prepped and draped in the usual sterile fashion. The patient received prophylactic antibiotic therapy. My attention was directed to the right subcostal region. A right subcostal incision was made using a #10 blade. The dermis and subcutaneous tissue were incised to the level of the fascia with electrocautery to the full extent of the skin incision. The fascia was then incised to the full extent of the skin incision with electrocautery, gaining access to the musculature. The musculature was divided with electrocautery, obtaining adequate hemostasis. This gained access to the posterior sheath and peritoneum, which were carefully incised with electrocautery while providing anterior abdominal wall retraction to avoid injury to internal organs. Once access to the peritoneal cavity was obtained, I inserted my index finger into the abdominal cavity and retracted the remaining portion of the abdominal wall anteriorly. I incised the remaining portion of the abdominal wall with the electrocautery over my finger to avoid injury to internal structures. At this time, a Bookwalter retractor was placed obtaining excellent visualization of the right upper quadrant region. Dark blood was evacuated with a pool sucker. The patient was noted to have significant thrombus in the gallbladder fossa. The thrombus was evacuated. Approximately 250-300 mL of thrombus were evacuated from the gallbladder fossa. The gallbladder fossa was inspected. There was no evidence of active bleeding from the cystic artery stump or any other area. The area was copiously irrigated with warm sterile saline solution. The fluid was evacuated, obtaining a clear effluent. The abdominal cavity was inspected and observed for over 30 minutes in order to ensure no active bleeding. None was identified. Given that the likely source of bleeding was the operative site, at this time, the gallbladder fossa and given that the most likely etiology of the site of bleeding would be the operative site, particularly the gallbladder fossa and the area of the hepatoduodenal ligament where the cystic artery stump was located, Surgiflo and Surgicel SNoW was applied to the area. A #19 Robby drain was placed in the right upper quadrant region in the posterior aspect of the right hepatic lobe in the area of the gallbladder fossa as well as the hepatoduodenal ligament. It was exteriorized via the right medial laparoscopic trocar site. The drain was secured to the skin by means of a 2-0 silk suture. The abdominal cavity was inspected again for one last time. There was no evidence of active bleeding. The abdominal cavity was inspected for any retained sponges or instruments. None were identified. The instrument and sponge count were correct. At this time, the Bookwalter retractor was removed. The posterior sheath was closed with #0 Vicryl suture x 2. The anterior sheath was closed with double-stranded 0 PDS suture x 2. The wound was washed and dried. Skin was closed with vic. The patient tolerated well the procedure. He was transferred to the recovery room, intubated with mechanical ventilator support and vasopressor support in a critical condition. After the procedure, several consultants were requested to assist in the patient's care. Orders were placed and discussion was held with the patient's family with regard to the intraoperative findings, procedure and they were made aware that the prognosis at this point was uncertain as he remains in a very critical condition. The patient's family understood and were appreciative of the care the patient is receiving. MD LAYA Mora/CLAYTON TID: [id number] RECEIPT: [id number]
--- NOTE | 2025-01-29 16:55 | DVHINCON2 ---
Date of service: Jan 29, 2025 History of Present Illness HPI Patient is a 24-year-old gentleman who was originally brought to the hospital for post arrest. Patient is seen in postop area. Patient is intubated and on multiple pressor supports. Patient is not source of history. Information was obtained by reviewing the chart, talking to patient's family/mother and communicating with staff and reviewing outside records ([facility]). Patient did have elective outpatient laparoscopic cholecystectomy in [facility] on January 28 2025. As per mother, after going home, patient was feeling very hungry and was eating and drinking a lot. He started feeling abdominal pain with nausea at night and in the morning was short of breath. As per mother: patient has stopped breathing in the morning and ad jammie called 911. As per mother, as per guidance of 911, family started CPR until EMS arrived. Patient was intubated and was brought to the hospital by EMS. Since arrival to [facility], patient was seen by surgeon who took the patient to operating room and performed laparotomy (there was hepatic hematoma). Postoperatively, the patient has remained hypotensive. There is signs for multiorgan involvement. Patient was not alert and did not complain of any chest pains. Labs revealed increased troponin. Cardiology is involved for cardiac aspects of care and abnormal troponin. First available EKG reveals sinus tachycardia with no specific ST-T changes. Telemetry had revealed sinus tachycardia throughout the stay. Patient is found to have significant anemia and is receiving blood transfusion at the time of evaluation. It is of note that at the time of evaluation patient does not have any reflexes. Past Medical History Others Reported past medical history includes asthma and obesity. Reportedly, on January 23, 2025: Patient presented to [facility] for abdominal pain/nausea/vomiting. At that point the problems were ongoing for few weeks. In [facility], CT of the abdomen and [facility] were performed. Patient was seen by GI/surgery. Patient was found to have gallstones. Patient was discharged and later on January 28, 2025 presented back to [facility] for elective laparoscopy cholecystectomy. Patient was discharged home from [facility] after laparoscopic cholecystectomy. As per mother, patient does not have baseline history of any cardiac history. As per mother, patient was using marijuana. Mother denies any previous substance abuse besides marijuana. No specific family history is reported Review of Systems Comments Patient is intubated and is not source of history. Details past medical history/family history/review of systems/social history can not be obtained. H&P Exam Vital Signs Vital Signs Date Time Temp Pulse Resp B/P (MAP) Pulse Ox O2 Delivery O2 Flow Rate FiO2 01/29/25 16:11 119/62 01/29/25 15:58 93.0 139 18 100 93.0 01/29/25 14:20 50 01/29/25 09:42 Mechanical Ventilator+ Eye Exam: bilateral eye Other (Nonreflective to light) Pulmonary/Respiratory: Rhonci Cardiovascular/Chest: Tachycardia Labs/Xrays Labs Test 01/29/25 15:23 01/29/25 14:30 01/29/25 09:36 Range/Units Blood Gas Specimen Type Arterial Blood Gas Sample Site Arterial line Blood Gas Patient Temperature 37.0 Arterial Blood Date Drawn [id number] Arterial Blood pH 6.956 *L 7.350-7.450 Arterial Blood Partial Pressure CO2 39.2 35.0-48.0 mmHg Arterial Blood Partial Pressure O2 136.2 H 83.0-108.0 mmHg Arterial Blood HCO3 8.5 L 21.0-28.0 mmol/L Arterial Blood Oxygen Saturation 95.9 94.0-98.0 % Arterial Blood Base Excess -21.7 L -2.0-3.0 mmol/L Arterial Blood Oxyhemoglobin 94.5 94.0-98.0 % Arterial Blood Carboxyhemoglobin 0.3 L 0.5-1.5 % Arterial Blood Methemoglobin 1.2 0.0-1.5 % Markus Test N/a Blood Gas Total Hemoglobin 6.80 *L 13.5-17.5 g/dL Blood Gas Set Respiration Rate 16.0 Blood Gas Modality Vent - ac FiO2 % 50.0 Blood Gas Tidal Volume 550.0 Blood Gas PEEP or CPAP 5.0 Blood Gas Critical Value Read Back Yes Blood Gas Notified Whom aranza Landa Blood Gas Notified Time [id number] Blood Gas Notified By yvette Shepherd White Blood Count 19.0 H 4.4-10.8 10^3/uL Red Blood Count 2.11 L 4.5-5.90 10^6/uL Hemoglobin 6.5 #*L 13.5-17.5 g/dL Hematocrit 20.0 #L 41.0-53.0 % Mean Corpuscular Volume 94.6 # 80.0-100.0 fL Mean Corpuscular Hemoglobin 30.9 28.0-32.0 pg Mean Corpuscular Hemoglobin Concent 32.6 32.0-36.0 g/dL Red Cell Distribution Width 13.6 11.8-14.3 % Platelet Count 223 140-450 10^3/uL Mean Platelet Volume 9.3 6.9-10.8 fL Neutrophils (%) (Auto) 37.0-80.0 % Lymphocytes (%) (Auto) 10.0-50.0 % Monocytes (%) (Auto) 0.0-12.0 % Basophils (%) (Auto) 0.0-2.0 % Neutrophils # (Auto) 1.6-8.6 10 ^3/uL Lymphocytes # (Auto) 0.4-5.4 10 ^3/uL Monocytes # (Auto) 0-1.3 10 ^3/uL Differential Total Cells Counted 100.0 100 Neutrophils % (Manual) 54 37.0-80.0 Band Neutrophils % (Manual) 14 Lymphocytes % (Manual) 24 10.0-50.0 Monocytes % (Manual) 7 0-12 Eosinophils % (Manual) 0 0-7 Basophils % (Manual) 0 0.0-2.0 Metamyelocytes % (manual) 1 Myelocytes % (Manual) 0 Promyelocytes % (Manual) 0 Blast Cells % (Manual) 0 Nucleated Red Blood Cells 1.0 % Reactive Lymphocytes 0 Platelet Estimate Adequate Anisocytosis (manual) Slight Prothrombin Time 19.6 H 9.3-11.8 sec Prothrombin Time INR 1.98 H 0.9-1.15 Activated Partial Thromboplast Time 53.8 H 24.5-34.5 SEC Sodium Level 152 #H 136-145 mmol/L Potassium Level 4.6 3.5-5.1 mmol/L Chloride Level 108 H 98-107 mmol/L Carbon Dioxide Level 13 L 20-31 mmol/L Anion Gap 31 H 5-15 Blood Urea Nitrogen 30 H 9-23 mg/dL Creatinine 3.78 H 0.700-1.30 mg/dL Glomerular Filtration Rate Calc 22 >90 mL/min BUN/Creatinine Ratio 7.9 L 10.0-20.0 Serum Glucose 53 L 74-106 mg/dL Lactic Acid Level 17.2 *H 0.4-2.0 mmol/L Calcium Level 7.0 L 8.7-10.4 mg/dL Total Bilirubin 1.3 H 0.2-1.0 mg/dL Aspartate Amino Transferase (AST) 2327 H 13-40 U/L Alanine Aminotransferase (ALT) 2056 H 7-40 U/L Alkaline Phosphatase 160 H 46-116 U/L Troponin I High Sensitivity 4364 *H </=54 ng/L Total Protein 3.1 L 5.7-8.2 g/dL Albumin 1.9 L 3.2-4.8 g/dL Eosinophils (%) (Auto) 0.4 0.0-7.0 % Eosinophils # (Auto) 0.1 0-0.8 10 ^3/uL Basophils # (Auto) 0 0-0.2 10 ^3/uL Assessment/Plan Plan Patient is a 24-year-old gentleman who was originally brought to the hospital for post arrest. Patient is seen in postop area. Patient is intubated and on multiple pressor supports. Patient is not source of history. Information was obtained by reviewing the chart, talking to patient's family/mother and communicating with staff and reviewing outside records ([facility]). Patient did have elective outpatient laparoscopic cholecystectomy in [facility] on January 28 2025. As per mother, after going home, patient was feeling very hungry and was eating and drinking a lot. He started feeling abdominal pain with nausea at night and in the morning was short of breath. As per mother: patient has stopped breathing in the morning and family called 911. As per mother, as per guidance of 911, family started CPR until EMS arrived. Patient was intubated and was brought to the hospital by EMS. Since arrival to [facility], patient was seen by surgeon who took the patient to operating room and performed laparotomy (there was hepatic hematoma). Postoperatively, the patient has remained hypotensive. There is signs for multiorgan involvement. Patient was not alert and did not complain of any chest pains. Labs revealed increased troponin. Cardiology is involved for cardiac aspects of care and abnormal troponin. First available EKG reveals sinus tachycardia with no specific ST-T changes. Telemetry had revealed sinus tachycardia throughout the stay. Patient is found to have significant anemia and is receiving blood transfusion at the time of evaluation. It is of note that at the time of evaluation patient does not have any reflexes. Intubated. Mucosa pale. Scattered rhonchi in the lungs. Cardiac: Tachycardic. No murmur. Abdomen is covered by dressing. Extremities do not reveal any edema. Dorsalis pedis is 1+ bilateral. Pupils are not reflective to light. Patient does not respond to any painful stimuli Reported past medical history includes asthma and obesity. Reportedly, on January 23, 2025: Patient presented to [facility] for abdominal pain/nausea/vomiting. At that point the problems were ongoing for few weeks. In [facility], CT of the abdomen and MRCP were performed. Patient was seen by GI/surgery. Patient was found to have gallstones. Patient was discharged and later on January 28, 2025 presented back to [facility] for elective laparoscopy cholecystectomy. Patient was discharged home from [facility] after laparoscopic cholecystectomy. As per mother, patient does not have baseline history of any cardiac history. As per mother, patient was using marijuana. Mother denies any previous substance abuse besides marijuana. No specific family history is reported On January 23, 2025, labs in [facility] revealed creatinine of 0.84, hemoglobin of 15.2 and troponin (high sensitive) of <3. At that point EKG was normal WBC: 20.1 - 19.0 Hemoglobin: 8.3 - 6.5 INR: 1.74 - 1.98 Creatinine: 4.02 - 3.78 Potassium: 5.6 - 4.6 AST/ALT: 676/700 - 2327/6 Lactic acid: 17.9 - 17.2 Troponin (high sensitive): 9393 - 3216 - 8282 Chest x-ray revealed: Lines and Tubes: Endotracheal tube projects 2.2 cm above the meghan. Right internal jugular central venous catheter tip projects over superior vena cava. Lungs: No focal consolidation. Low lung volumes. Pleura: No effusion. No pneumothorax. Cardiomediastinal contours: Unremarkable Bones: No acute osseous abnormality. IMPRESSION: Lines and tubes as above. Low lung volumes. Repeat chest x-ray revealed: IMPRESSION: Lines and tubes in satisfactory position. Mild increased pulmonary vascular congestion CT of the chest/abdomen/pelvis revealed: IMPRESSION: 1. Hepatic hematoma measuring up to approximately 8.6 cm in greatest dimension, as described above, with hemorrhage extending beyond the liver capsule and into the right pericolic gutter as well as into the pelvis. No definite active arterial bleeding is seen on this exam, although limited evaluation due to the timing of contrast, as this was not a CTA exam. 2. Postsurgical changes of cholecystectomy. 3. Dilated fluid-filled small bowel loops, may be due to postoperative ileus. No small bowel obstruction. 4. Small volume pneumoperitoneum, likely due to recent surge ry. Small volume of gas are seen in the upper ventral abdomen from the recent surgery. 5. Dependent atelectasis in the lower lobes. Otherwise, no acute disease in the chest. 6. Endotracheal tube and enteric tube in place. 7. Atrophic right kidney incidentally noted. 8. Additional findings as described above. Critical findings Critical Result: Acute hepatic hematoma with hemorrhage extending beyond the liver capsule into the adjacent portions of the abdomen and into the pelvis as detailed above. CT of the head revealed: IMPRESSION: 1. No evidence of acute intracranial abnormality. Arrival EKG revealed sinus tachycardia with nonspecific ST-T changes Tele reveals sinus tachycardia Patient is a 24-year-old gentleman who presented with post arrest. It seems that the patient had hemorrhagic (intra-abdominal) presentation. Patient did have elective laparoscopic cholecystectomy the day before presentation. On the day of presentation, the patient was taken back to operating room and this time brought tati was done for hepatic hematoma. Patient does have multiorgan involvement. Clinically there is no brainstem reflexes. Shock liver/acute renal failure is considered. Troponin has been high. EKG did not reveal any STEMI. Presentation could be high troponin secondary to demand physiology. Patient does not have any risk factors for baseline coronary artery disease. In ideal scenario, ischemic workup/cardiac catheterization could be more revealing. Unfortunately, the patient does have acute renal failure which could be worsened by cardiac catheterization at this point. As there was no higher brain functions the suggestion is to wait and see if patient regains any higher brain function. It is of note that during cardiac catheterization, the patient may need some anticoagulation/antiplatelets. At this point patient is having significant anemia/bleeding and receiving blood transfusion and holding off of scenario forcing Anticoagulation/antiplatelets is advised. I had a long d iscussion with family members and Mother. They also want to wait before any repeat invasive evaluation/management. Clinically patient has multiorgan failure. Secondary to active bleeding, we will avoid anticoagulation/antiplatelets for now s/ p Arrest Intra-abdominal bleeding Hepatic hematoma Multiorgan failure Shock liver Acute renal failure Acute respiratory failure, on vent support Status post laparotomy Status post laparoscopic cholecystectomy Abnormal troponin, evaluated to reflect possible demand physiology History of gallstones History of asthma Obesity History of marijuana abuse Cardiac suggestion for management: Manage in ICU Pressure support (patient on Levophed/vasopressor at the time) Follow-up electrolytes and kidney function tests and correct abnormalities Evaluation and management of respiratory failure as per primary team/Pulmonary Request for urine toxicology Request for echocardiogram Fluid resuscitation/PRBC transfusion Thyroid function tests Neurology evaluation Surgical follow up Secondary to active bleeding, we will avoid anticoagulation/antiplatelets for now Long-term prognosis depends on the above and most importantly regaining of the higher brain function Ischemic workup may be considered only after regaining higher brain function or any special change in clinical presentation Further evaluation and management depends on the above and clinical course A total of 75 minutes was spent reviewing the patient record, examining the patient, making a diagnostic and therapeutic plan, discussing this plan with medical personnel, following up on diagnostic studies and following the patient for clinical stability excluding any and all procedures. At least 50% of this time was spent in direct, [id number] contact. Thank you for allowing me to participate in this patient's care. Further recommendations will depend on patient's clinical course. Please do not hesitate to contact me if you have any questions or concerns. This medical document was created using electronic medical record system with [email or web address] computerized dictation system. Although this document has been carefully reviewed, there may still be some phonetic and typographical errors. These areas are purely typographical due to the imperfection of the software programs, and do not reflect any compromise in the patient's medical care. Plan discussed with: Other (nurse, mother, primary team) KATHLEEN COHEN MD Jan 29, 2025 16:55
--- NOTE | 2025-01-29 17:39 | DVH ---
INDICATION: HARLEEN TECHNIQUE: Multiple real-time sonographic images of the kidneys and bladder were obtained. COMPARISON: None FINDINGS: RIGHT kidney: Not visible. LEFT kidney measures 14.06 cm in length. No hydronephrosis. No large intraluminal masses are seen in the bladder. Green catheter in the bladder in the bladder is empty IMPRESSION: 1. Right kidney not visible. 2. Left kidney is enlarged. 3. No hydronephrosis.
[2025-01-29 17:41] LABS: Base Excess -21.7 mmol/L (-2.0-3.0)
--- NOTE | 2025-01-29 17:49 | DVHHPRES ---
History of Present Illness Resident Creating Document: BLANQUITA DAVILA RESIDENT History of Present Illness This is a 24-year-old male without any significant past medical history, who underwent an elective outpatient laparoscopic cholecystectomy yesterday at [facility] for right upper quadrant pain and cholelithiasis. Postoperative period was uneventful and the patient was discharged around 1:00 p.m. in the afternoon. To the mother the patient was very lethargic but was able to eat p.o. intake. She noticed around 2:00 a.m. in the morning that her son was progressively very lethargic and 8 3:00 a.m. approximately in the morning patient became unresponsive. Mother perform CPR in the field until the EMS arrived and they brought the patient to the [facility] ER for further evaluation. In the ED CT abdomen pelvis without contrast revealed a hepatic hematoma measuring 8.6 cm with hemorrhage extending beyond the liver capsule into the right paracolic gutter as well as the pelvis. The patient was emergently taken back to the surgery by Dr. Ledesma at 4:30 p.m. in the afternoon. There was an evacuation of a large hemoperitoneum and subsequently admitted to ICU. Patient was seen and examined in the recovery room. He is on mechanical ventilation with FiO2 50%, tidal volume 550 mL, peep 5. Currently the patient is on maximum dose of Levophed, vasopressin and phenylephrine. ABG showed severe metabolic acidosis, increase the respiratory rate to 24 and started bicarb drip. Past Medical History Cholelithiasis Past Surgical History: Cholecystectomy Family History: None Past Social History Lives with family Nonsmoker, nonalcoholic and smoke marijuana Review of Systems Review of Systems Could not be assessed as patient is on mechanical ventilation. Allergies: Coded Allergies: NO KNOWN ALLERGIES (Unverified , 01/21/14) Medications Current Medications Medications Dose Ordered Sig/Serenity Route Start Time Stop Time Status Last Admin Dose Admin Norepinephrine Bitartrate 250 ml @ 3.75 mls/hr Q24H IV 01/29/25 10:00 01/29/25 10:00 3.75 MLS/HR Midazolam HCl 50 ml @ 1 mls/hr Q24H IV 01/29/25 14:15 01/29/25 15:56 5 MLS/HR Fentanyl Citrate 250 ml @ 2.5 mls/hr Q24H IV 01/29/25 14:15 Vasopressin 20 units/Sodium Chloride 100 ml @ 9 mls/hr Q11H7M IV 01/29/25 15:00 01/29/25 15:39 9 MLS/HR Piperacillin Sod/ Tazobactam Sod 100 ml @ 25 mls/hr Q12HR IV 01/29/25 22:00 Pantoprazole Sodium 40 mg DAILY IV 01/30/25 10:00 Dextrose/Sodium Chloride 1,000 ml @ 100 mls/hr Q10H IV 01/29/25 16:30 UNV Bumetanide 2.5 mg BIDD IV 01/29/25 18:00 UNV Exam Vital Signs Vital Signs Date Time Temp Pulse Resp B/P (MAP) Pulse Ox O2 Delivery O2 Flow Rate FiO2 01/29/25 17:43 82/54 01/29/25 16:15 140 22 100 50 01/29/25 15:58 93.0 93.0 01/29/25 09:42 Mechanical Ventilator+ Exam General: RASS -3, afebrile, mucosae are moist Cardiovascular: Normal S1 and S2. No murmurs, gallops or rubs Respiratory: Mechanically assisted ventilation, equal bilateral airway entree. Clear lung sounds on auscultation Abdomen: Soft, nontender, no organomegaly, normal bowel sounds MSK/skin: Mobilization of limbs cannot be evaluated. Skin is dry and warm. Neurological: Orientation cannot be assessed. No apparent motor no sensitive deficits. Absent gag reflex, Pupils are dilated and nonreactive Labs/Xrays Labs Test 01/29/25 17:26 01/29/25 14:30 01/29/25 09:36 Range/Units Blood Gas Specimen Type Arterial Blood Gas Sample Site Arterial line Blood Gas Patient Temperature 37.0 Arterial Blood Date Drawn [id number] Arterial Blood pH 7.009 *L 7.350-7.450 Arterial Blood Partial Pressure CO2 33.9 L 35.0-48.0 mmHg Arterial Blood Partial Pressure O2 109.6 H 83.0-108.0 mmHg Arterial Blood HCO3 8.3 L 21.0-28.0 mmol/L Arterial Blood Oxygen Saturation 95.6 94.0-98.0 % Arterial Blood Base Excess -21.7 L -2.0-3.0 mmol/L Arterial Blood Oxyhemoglobin 94.7 94.0-98.0 % Arterial Blood Carboxyhemoglobin 0.2 L 0.5-1.5 % Arterial Blood Methemoglobin 0.7 0.0-1.5 % Markus Test N/a Blood Gas Total Hemoglobin 10.90 L 13.5-17.5 g/dL Blood Gas Set Respiration Rate 22.0 Blood Gas Modality Vent - ac FiO2 % 50.0 Blood Gas Tidal Volume 550.0 Blood Gas PEEP or CPAP 5.0 Specimen Drawn By Laryngologist aileen jhaveri Blood Gas Critical Value Read Back Yes Blood Gas Notified Whom jay Delcid Blood Gas Notified Time [id number] Blood Gas Notified By Laryngologist aileen jhaveri White Blood Count 19.0 H 4.4-10.8 10^3/uL Red Blood Count 2.11 L 4.5-5.90 10^6/uL Hemoglobin 6.5 #*L 13.5-17.5 g/dL Hematocrit 20.0 #L 41.0-53.0 % Mean Corpuscular Volume 94.6 # 80.0-100.0 fL Mean Corpuscular Hemoglobin 30.9 28.0-32.0 pg Mean Corpuscular Hemoglobin Concent 32.6 32.0-36.0 g/dL Red Cell Distribution Width 13.6 11.8-14.3 % Platelet Count 223 140-450 10^3/uL Mean Platelet Volume 9.3 6.9-10.8 fL Neutrophils (%) (Auto) 37.0-80.0 % Lymphocytes (%) (Auto) 10.0-50.0 % Monocytes (%) (Auto) 0.0-12.0 % Basophils (%) (Auto) 0.0-2.0 % Neutrophils # (Auto) 1.6-8.6 10 ^3/uL Lymphocytes # (Auto) 0.4-5.4 10 ^3/uL Monocytes # (Auto) 0-1.3 10 ^3/uL Differential Total Cells Counted 100.0 100 Neutrophils % (Manual) 54 37.0-80.0 Band Neutrophils % (Manual) 14 Lymphocytes % (Manual) 24 10.0-50.0 Monocytes % (Manual) 7 0-12 Eosinophils % (Manual) 0 0-7 Basophils % (Manual) 0 0.0-2.0 Metamyelocytes % (manual) 1 Myelocytes % (Manual) 0 Promyelocytes % (Manual) 0 Blast Cells % (Manual) 0 Nucleated Red Blood Cells 1.0 % Reactive Lymphocytes 0 Platelet Estimate Adequate Anisocytosis (manual) Slight Prothrombin Time 19.6 H 9.3-11.8 sec Prothrombin Time INR 1.98 H 0.9-1.15 Activated Partial Thromboplast Time 53.8 H 24.5-34.5 SEC Fibrinogen 108 L 177-375 mg/dL Sodium Level 152 #H 136-145 mmol/L Potassium Level 4.6 3.5-5.1 mmol/L Chloride Level 108 H 98-107 mmol/L Carbon Dioxide Level 13 L 20-31 mmol/L Anion Gap 31 H 5-15 Blood Urea Nitrogen 30 H 9-23 mg/dL Creatinine 3.78 H 0.700-1.30 mg/dL Glomerular Filtration Rate Calc 22 >90 mL/min BUN/Creatinine Ratio 7.9 L 10.0-20.0 Serum Glucose 53 L 74-106 mg/dL Lactic Acid Level 17.2 *H 0.4-2.0 mmol/L Calcium Level 7.0 L 8.7-10.4 mg/dL Total Bilirubin 1.3 H 0.2-1.0 mg/dL Aspartate Amino Transferase (AST) 2327 H 13-40 U/L Alanine Aminotransferase (ALT) 2056 H 7-40 U/L Alkaline Phosphatase 160 H 46-116 U/L Troponin I High Sensitivity 4364 *H </=54 ng/L Total Protein 3.1 L 5.7-8.2 g/dL Albumin 1.9 L 3.2-4.8 g/dL Thyroid Stimulating Hormone (TSH) 11.05 H 0.55-4.78 uIU/mL Eosinophils (%) (Auto) 0.4 0.0-7.0 % Eosinophils # (Auto) 0.1 0-0.8 10 ^3/uL Basophils # (Auto) 0 0-0.2 10 ^3/uL SEPSIS Sepsis Screen Date sepsis recognized/suspect: Jan 29, 2025 Time Sepsis recognized/suspect: 941 Recent Procedure: Yes (CHOLECYSTECMY 12/28/24) On Antibiotic Therapy: No Respiratory Rate >20: No Heart Rate >90: Yes Temp<36 C (96.8 F) or >38.3 C: No SBP <90 or MAP <65 mmHG: No New Acute Mental Status Change: Yes Is the patient on CPAP, BIPAP,: Yes Physician Orders Rass Sedation Scale Q1HR (01/29/25 09:47) Norepinephrine 8 Mg/250ml Kit (Levophed) (01/29/25 10:00) Head Without Contrast (01/29/25 09:54) Urinalysis (01/29/25 09:54) Blood Culture (01/29/25 09:54) Ct Chest/Ab/Pl W Con- Iv Only (01/29/25 09:54) Abg W/ Co-Ox (01/29/25 11:00) Respiratory Culture W/ Gs (01/29/25 10:00) Vent Ip Init (01/29/25 09:50) Communication Order (01/29/25 10:05) Electrocardigram (01/29/25 10:23) Packedcells -Active Bleeding (01/29/25 11:19) Type And Screen (01/29/25 11:19) Sepsis Reassesment After Fluid (01/29/25 ) Initiate Sepsis Protocol (01/29/25 ) Communication Order (01/29/25 12:31) Frozen Plasma (01/29/25 13:02) Admit (01/29/25 13:50) Notify Md Of Changes From Base (01/29/25 13:50) Regional Transfer Liaison For 24 Hours (01/29/25 13:50) Emergency Dysrhythmia Protocol (01/29/25 13:50) Rhythm Strips Once Every Shift (01/29/25 13:50) Chest Portable (01/29/25 13:50) A Line W/ Monitoring Abp (01/29/25 13:50) Strict I & O QSHIFT (01/29/25 13:50) Ventilator Orders (01/29/25 13:50) Insert/Manage Urinary Catheter QSHIFT (01/29/25 13:50) Zachary Drain To Closed Suction (01/29/25 13:50) Complete Blood Count (01/30/25 04:00) Comprehensive Metabolic Panel (01/30/25 04:00) Prothrombin Time W/ Inr (01/30/25 04:00) Partial Thromboplastin Time (01/30/25 04:00) Abg W/ Co-Ox (01/29/25 13:50) Abg W/ Co-Ox (01/30/25 04:00) Sodium Bicarb 50meq/50ml Vial (01/29/25 14:15) Urinalysis (01/29/25 14:15) Urine Protein (01/29/25 14:15) Urine Sodium (01/29/25 14:15) Urine Creatinine (01/29/25 14:15) Midazolam Drip 50 Mg/50ml (Versed Drip 5 (01/29/25 14:15) Fentanyl Drip 2500mcg/250mlns (01/29/25 14:15) Rass Sedation Scale Q1HR (01/29/25 14:10) Chest Portable (01/30/25 04:00) * Neurology Consult (01/29/25 14:10) *Consult / (01/29/25 14:10) *Dr. Pa [facility] (01/29/25 14:10) Communication Order (01/29/25 14:22) * Cardiology Consult (01/29/25 14:35) * Surgical Consult (01/29/25 ) Sequential Compression Device (01/29/25 14:45) Famotidine Injection (Pepcid Injection) (01/29/25 22:00) Sodium Chl 0.9% (So... W/Vasopressin (01/29/25 15:00) Lactic Acid W/ Reflex Order (01/30/25 04:00) Piperacillin-Tazob 3.375gm (Zosyn 3.375g (01/29/25 22:00) Full Code (01/29/25 15:06) Echo 2d Mode Cardiac Dop (01/29/25 15:06) Electrocardigram (01/29/25 15:06) Frozen Plasma (01/29/25 15:12) Cryoprecipitate (01/29/25 15:12) * Critical Care Consult (01/29/25 15:12) * Internal Medicine Consult (01/29/25 ) Urinalysis (01/29/25 16:49) Pantoprazole (Protonix) (01/30/25 10:00) Troponin-I Hs (01/29/25 18:00) Troponin-I Hs (01/29/25 19:00) Troponin-I Hs (01/29/25 20:00) Troponin-I Hs (01/29/25 21:00) Troponin-I Hs (01/30/25 00:00) Troponin-I Hs (01/30/25 01:00) Troponin-I Hs (01/30/25 02:00) Troponin-I Hs (01/30/25 03:00) Troponin-I Hs (01/30/25 04:00) Troponin-I Hs (01/30/25 05:00) Troponin-I Hs (01/30/25 06:00) Troponin-I Hs (01/30/25 07:00) Troponin-I Hs (01/30/25 08:00) Troponin-I Hs (01/30/25 09:00) Troponin-I Hs (01/30/25 10:00) Troponin-I Hs (01/30/25 11:00) Troponin-I Hs (01/30/25 12:00) Troponin-I Hs (01/30/25 13:00) Troponin-I Hs (01/30/25 14:00) Troponin-I Hs (01/30/25 15:00) Troponin-I Hs (01/30/25 16:00) Troponin-I Hs (01/30/25 17:00) Troponin-I Hs (01/30/25 18:00) Troponin-I Hs (01/30/25 19:00) Troponin-I Hs (01/30/25 20:00) Troponin-I Hs (01/30/25 21:00) Troponin-I Hs (01/30/25 22:00) Troponin-I Hs (01/30/25 23:00) Troponin-I Hs (01/31/25 00:00) Troponin-I Hs (01/31/25 01:00) Troponin-I Hs (01/31/25 02:00) Troponin-I Hs (01/31/25 03:00) Troponin-I Hs (01/31/25 04:00) Troponin-I Hs (01/31/25 05:00) Troponin-I Hs (01/31/25 06:00) Troponin-I Hs (01/31/25 07:00) Troponin-I Hs (01/31/25 08:00) Troponin-I Hs (01/31/25 09:00) Troponin-I Hs (01/31/25 10:00) Troponin-I Hs (01/31/25 11:00) Troponin-I Hs (01/31/25 12:00) Troponin-I Hs (01/31/25 13:00) Troponin-I Hs (01/31/25 14:00) Troponin-I Hs (01/31/25 15:00) Troponin-I Hs (01/31/25 16:00) Troponin-I Hs (01/31/25 17:00) Troponin-I Hs (01/31/25 18:00) Troponin-I Hs (01/31/25 19:00) Troponin-I Hs (01/31/25 20:00) Troponin-I Hs (01/31/25 21:00) Troponin-I Hs (01/31/25 22:00) Troponin-I Hs (01/31/25 23:00) Electrocardigram (01/29/25 16:09) Ventilator Orders (01/29/25 15:40) Pharmacy Clarification: (01/29/25 16:10) Ventilator Orders (01/29/25 16:10) Drug Screen (01/29/25 16:16) Kidney (01/29/25 16:29) D5w/Sod Chl 0.45% (D5w 1/2ns) (01/29/25 16:30) Communication Order (01/29/25 16:29) Basic Metabolic Panel (01/29/25 18:00) Magnesium (01/29/25 18:00) Phosphorus (01/29/25 18:00) Vitamin D, 25-Hydroxy (01/29/25 18:00) Bumetanide Injection (Bumex Injection) (01/29/25 18:00) Abg W/ Co-Ox (01/29/25 17:15) Communication Order (01/29/25 16:57) Communication Order (01/29/25 16:57) * Hematology/Oncology Consult (01/29/25 17:34) Vital Signs Date Time Temp Pulse Resp B/P (MAP) Pulse Ox O2 Delivery O2 Flow Rate FiO2 01/29/25 17:43 82/54 01/29/25 16:59 120/66 01/29/25 16:15 140 22 117/61 (79) 100 50 01/29/25 16:11 119/62 01/29/25 15:58 93.0 139 18 111/40 100 93.0 01/29/25 15:56 103/55 01/29/25 15:39 97/41 01/29/25 14:20 138 16 107/60 (76) 100 50 01/29/25 12:00 93.0 127 36 156/56 (89) 100 93.0 01/29/25 12:00 156/56 01/29/25 12:00 156/56 01/29/25 11:55 126 37 134/76 (95) 100 50 01/29/25 11:45 92.8 126 37 134/76 (95) 100 92.8 01/29/25 11:45 134/76 01/29/25 11:30 135/50 01/29/25 11:30 92.8 126 36 117/73 (88) 100 92.8 01/29/25 11:15 127 36 131/55 (80) 100 01/29/25 11:15 165/148 01/29/25 11:10 131/55 01/29/25 11:00 128 34 127/55 (79) 99 01/29/25 11:00 127/55 01/29/25 11:00 127/55 01/29/25 10:45 129/51 01/29/25 10:45 128 29 129/51 (77) 100 01/29/25 10:30 120 14 101/32 (55) 100 01/29/25 10:25 101/32 01/29/25 10:21 120 01/29/25 10:20 82/28 01/29/25 10:15 67/33 01/29/25 10:15 120 11 82/28 (46) 99 01/29/25 10:10 77/32 01/29/25 10:05 68/29 01/29/25 10:00 66/30 01/29/25 10:00 66/30 01/29/25 10:00 121 19 66/30 (42) 94 01/29/25 09:55 116 17 57/33 (41) 97 01/29/25 09:50 116 17 127/71 (89) 97 100 01/29/25 09:50 114 11 64/42 (49) 98 Laboratory Tests Test 01/29/25 09:36 01/29/25 10:49 9/17/25 14:30 White Blood Count 20.1 10^3/uL (4.4-10.8) H 19.0 10^3/uL (4.4-10.8) H Lactic Acid Level 17.9 mmol/L (0.4-2.0) *H 17.2 mmol/L (0.4-2.0) *H Medications Medications Dose Ordered Sig/Serenity Route Start Time Stop Time Status Last Admin Dose Admin Bumetanide 2 mg ONCE ONCE IV 01/29/25 14:30 01/29/25 14:39 DC 01/29/25 16:11 2 MG Bupivacaine HCl 30 ml STK-MED ONCE IJ 01/29/25 12:10 01/29/25 12:07 DC 01/29/25 12:41 30 ML Cefoxitin Sodium 1 gm/Dextrose 50 ml @ 50 mls/hr ONCE ONCE IV 01/29/25 12:45 01/29/25 13:44 DC 01/29/25 13:00 Lidocaine HCl 20 ml STK-MED ONCE .ROUTE 01/29/25 12:10 01/29/25 12:06 DC 01/29/25 12:41 20 ML Lidocaine HCl 20 ml STK-MED ONCE .ROUTE 01/29/25 12:48 01/29/25 12:44 DC 01/29/25 12:41 10 ML Midazolam HCl 50 ml @ 1 mls/hr Q24H IV 01/29/25 10:00 01/29/25 14:28 DC 01/29/25 10:00 5 MLS/HR Midazolam HCl 50 ml @ 1 mls/hr Q24H IV 01/29/25 14:15 01/29/25 15:56 5 MLS/HR Norepinephrine Bitartrate 250 ml @ 3.75 mls/hr Q24H IV 01/29/25 10:00 01/29/25 10:00 3.75 MLS/HR Pantoprazole Sodium 40 mg ONCE ONCE IV 01/29/25 16:15 01/29/25 16:16 DC 01/29/25 16:20 40 MG Prothrombin Complex Concent (Human) 2000 unit/ Purified Water 80 ml @ 320 mls/hr ONCE ONCE IV 01/29/25 15:45 01/29/25 15:59 DC 01/29/25 16:16 320 MLS/HR Sodium Bicarbonate 150 ml/Dextrose 1,150 ml @ 100 mls/hr ONCE ONCE IV 01/29/25 14:15 01/30/25 01:44 01/29/25 15:05 100 MLS/HR Sodium Bicarbonate 50 ml ONCE ONCE IV 01/29/25 14:15 01/29/25 14:29 DC 01/29/25 15:27 50 ML Sodium Bicarbonate 100 ml ONCE ONCE IV 01/29/25 14:15 01/29/25 14:20 DC 01/29/25 14:30 100 ML Sodium Bicarbonate 150 ml ONCE ONCE IV 01/29/25 11:00 01/29/25 11:01 DC 01/29/25 11:55 150 ML Sodium Chloride 1,000 ml @ 150 mls/hr Q6H40M ONCE IV 01/29/25 10:00 01/29/25 16:39 DC 01/29/25 10:00 150 MLS/HR Sodium Chloride 1,000 ml @ 1,000 mls/hr Q1H ONCE IV 01/29/25 10:00 01/29/25 10:59 DC 01/29/25 10:00 1,000 MLS/HR Sodium Chloride 1,000 ml @ 1,000 mls/hr Q1H ONCE IV 01/29/25 14:30 01/29/25 15:29 DC 01/29/25 14:32 1,000 MLS/HR Tranexamic Acid 1000 mg/Sodium Chloride 110 ml @ 300 mls/hr ONCE ONCE IV 01/29/25 15:15 01/29/25 15:36 DC 01/29/25 16:35 300 MLS/HR Vasopressin 20 units/Sodium Chloride 100 ml @ 9 mls/hr Q11H7M IV 01/29/25 15:00 01/29/25 15:39 9 MLS/HR Assessment/Plan Assessment/Plan Assessment and plan: NEURO: Status post cardiac arrest On mechanical ventilation Possible anoxic brain injury RASS score: -3 CT head without contrast demonstrated no evidence of acute intracranial abnormality. CARDIOVASCULAR: NSTEMI possible type 2 Hypovolemic shock - cardiology on board - Due to recent active bleeding patient is not a suitable candidate for antiplatelet/anticoagulant and has multiorgan failure and coronary angiogram is not possible right now - Pending echo - EKG revealed sinus tachycardia - troponin trends were [id number] PULMONARY: Acute hypoxic respiratory failure on mechanical ventilation - Cxr showed bilateral mild pulmonary vascular congestion GASTROINTESTINAL: Acute transaminitis secondary to hypovolemic shock Coagulopathy Hypoalbuminemia Status post laparoscopic cholecystectomy Status post exploratory laparotomy for hemoperitoneum - CT abdomen pelvis without contrast demonstrated Hepatic hematoma measuring up to approximately 8.6 cm in greatest dimension, as described above, with hemorrhage extending beyond the liver capsule and into the right pericolic gutter as well as into the pelvis. Postsurgical changes of cholecystectomy.Dilated fluid-filled small bowel loops, may be due to postoperative ileus. No small bowel obstruction. Small volume pneumoperitoneum, likely due to recent surgery. Small volume of gas are seen in the upper ventral abdomen from the recent surgery. - Received 3 units of PRBC, 2 units of FFP and 1 unit of cryoprecipitate - GI on board GENITOURINARY: HARLEEN secondary to hypovolemic shock - Nephrology on board - IV Bumex 2.5 mg b.i.d. - Renal ultrasound showed atrophic right kidney, enlarged left kidney and no evidence of hydronephrosis. - continue vasopressor - strict I&O METABOLIC: Severe anion gap metabolic acidosis due to lactic acidosis Hypernatremia Grade 2 obesity, BMI 35.7 kg per m2 Hypoglycemia HEME: Acute blood loss anemia - Received 3 units of PRBC, 2 units of FFP and 1 unit of cryoprecipitate - Monitor H&H INFECTIOUS DISEASE: Leucocytosis Lactic acidosis - cultures are pending - IV Zosyn 3.375 g Q 8 hours DIET: NPO DVT prophylax: Hold GI prophylaxis: Protonix Bowel regimen: Code status: Full code LINES/DRAINS/ACCESS: ETT: Intubated on 01/29/25 IV access: Lt IJ placed on 01/29/25 Drips: Levophed, vasopressin, phenylephrine, Versed, fentanyl, bicarb drip Green catheter: Placed on DISPOSITION: ICU Patient's status discussed with MARY ANN Keatingpersonal care worker time spent more than 83 minutes, including patient care, chart review, and updating the family. Excluding any procedures. Case discussed with Dr. Juan Plan discussed with: Other (Rishabh, RN) BLANQUITA DAVILA RESIDENT Jan 29, 2025 17:49
[2025-01-29] MEDS ORDERED: BUMETANIDE 2.5mg/10ml (0.25 mg/ml) INJ IV SCH (18:00)
--- NOTE | 2025-01-29 18:46 | DVHINCON2 ---
Date of service: Jan 29, 2025 Referring Physician Robbin Ledesma MD Reason for Consultation Post-operative bleeding and coagulopathy management following laparoscopic cholecystectomy History of Present Illness Mr. Gillis is a 24-year-old previously healthy male who underwent an outpatient laparoscopic cholecystectomy on 01/28/25. The procedure was reported as uneventful. However, he returned to the emergency department the following day with progressive weakness, somnolence, and hypotension. On arrival, he was found to be in shock and experienced a cardiac arrest, requiring resuscitation and intubation. He was urgently taken back to the operating room by Dr. Ledesma on 01/29/25. Operative findings included large hemoperitoneum (with ~285523 mL thrombus in the gallbladder fossa). The cystic artery stump and surrounding tissues were visualized and appeared hemostatic. No active arterial or venous source of bleeding was identified. Hemostasis was reinforced, the abdomen irrigated, and a PATRIZIA drain was placed in the RUQ, which has since drained ~150 mL serosanguineous fluid. Following surgery, he remains critically ill in the ICU. He is intubated, sedated, and on vasopressor support (norepinephrine and vasopressin). He demonstrates progressive anemia, coagulopathy, hypofibrinogenemia, lactic acidosis, acute kidney injury, ischemic hepatitis, and elevated troponins consistent with myocardial injury in the setting of hemorrhagic shock. Labs highlight: Hb fell from 8.8 --> 6.5 g/dL Platelets 159k PT 17.519.6 sec, INR 1.741.98, aPTT 53.8 sec Fibrinogen 108 mg/dL Lactate 17.2 mmol/L, pH 6.94, HCO3 8.5 mmol/L AST 2377 U/L, ALT 2056 U/L (shock liver) Cr 3.78 mg/dL (HARLEEN) Troponin I 2712 --> 4364 ng/L Management so far: Transfusions: 3 PRBC, 2 FFP Hemostatic agents: PCC 2000 units, TXA 1000 mg IV Cryoprecipitate ordered but not yet administered Mechanical ventilation + vasopressors ongoing Imaging revealed: CT abdomen/pelvis: 8.6 cm hepatic hematoma with hemorrhage extending beyond capsule into pelvis, but no definite active arterial extravasation. Head CT: no acute intracranial abnormality. CXR: mild pulmonary vascular congestion, tubes/lines in place. Renal US: right kidney not visualized, left kidney enlarged, no hydronephrosis. Renal: Acute kidney injury with creatinine 3.78 mg/dL, oliguria, left kidney enlarged on ultrasound. Hepatic: Transaminitis (AST 2377 U/L, ALT 2056 U/L), consistent with ischemic hepatitis (shock liver). Cardiac: Troponin I markedly elevated (2712 --> 4364 ng/L), consistent with myocardial injury in the setting of shock. Hematologic: Progressive anemia (Hb 8.8 --> 5.1 g/dL), thrombocytopenia borderline (159k), elevated PT/INR (INR ~1.98), prolonged aPTT (53.8 sec), and hypofibrinogenemia (108 mg/dL). Findings are highly concerning for acute consumptive coagulopathy/DIC physiology. Metabolic: Severe lactic acidosis (lactate 17.2 mmol/L, pH 6.94, HCO3 8.5 mmol/L). Pulmonary: Mechanically ventilated, FiO2 50%, ABG showing severe metabolic acidosis with partial compensation. CXR with mild pulmonary vascular congestion. Of note, patient's mother denied any prior history of bleeding in patient. No prior surgical history noted, however no history of epistaxis, easy bruising, or hemarthrosis. Past Medical History Asthma Obesity Past Surgical History Laparoscopic cholecystectomy - 01/28/2025. Exploratory laparotomy for post-op hemorrhage - 01/29/25 Allergies: Coded Allergies: NO KNOWN ALLERGIES (Unverified , 01/21/14) Current Medications Current Medications Medications (Trade) Dose Ordered Sig/Serenity Route PRN Reason Start Time Stop Time Status Last Admin Midazolam HCl 50 ml @ 1 mls/hr Q24H IV 01/29/25 10:00 01/29/25 14:28 DC 01/29/25 10:00 Norepinephrine Bitartrate 250 ml @ 3.75 mls/hr Q24H IV 01/29/25 10:00 01/29/25 10:00 Midazolam HCl 50 ml @ 1 mls/hr Q24H IV 01/29/25 14:15 01/29/25 15:56 Fentanyl Citrate 250 ml @ 2.5 mls/hr Q24H IV 01/29/25 14:15 Piperacillin Sod/ Tazobactam Sod 50 ml @ 50 mls/hr Q12HR IV 01/29/25 22:00 01/29/25 15:01 DC Vasopressin 20 units/Sodium Chloride 100 ml @ 9 mls/hr Q11H7M IV 01/29/25 15:00 01/29/25 15:39 Piperacillin Sod/ Tazobactam Sod 100 ml @ 25 mls/hr Q12HR IV 01/29/25 22:00 Pantoprazole Sodium (Protonix) 40 mg DAILY IV 01/30/25 10:00 Dextrose/Sodium Chloride 1,000 ml @ 100 mls/hr Q10H IV 01/29/25 16:30 Bumetanide (Bumex Injection) 2.5 mg BIDD IV 01/29/25 18:00 Review of Systems Unable to obtain, as patient is intubated and sedated. Vital Signs Vital Signs Date Time Temp Pulse Resp B/P (MAP) Pulse Ox O2 Delivery O2 Flow Rate FiO2 01/29/25 17:43 82/54 01/29/25 16:15 140 22 100 50 01/29/25 15:58 93.0 93.0 01/29/25 09:42 Mechanical Ventilator+ Physical Exam General: Critically ill, intubated, sedated. Neck: No JVD, no lymphadenopathy. Cardiac: Tachycardic, regular. No murmurs. Respiratory: Mechanically ventilated. Breath sounds clear. Abdomen: PATRIZIA drain in RUQ with serosanguinous fluid. Post-op changes. No distension. Extremities: No cyanosis, clubbing, edema. Pulses palpable. Skin: No petechiae, purpura, or ecchymosis. Neuro: Intubated, sedated, no responsiveness. Labs/Diagnostic Data Labs Test 01/29/25 18:05 01/29/25 17:26 01/29/25 14:30 01/29/25 09:36 Range/Units Blood Gas Specimen Type Arterial Blood Gas Sample Site Arterial line Blood Gas Patient Temperature 37.0 Arterial Blood Date Drawn [id number] Arterial Blood pH 7.009 *L 7.350-7.450 Arterial Blood Partial Pressure CO2 33.9 L 35.0-48.0 mmHg Arterial Blood Partial Pressure O2 109.6 H 83.0-108.0 mmHg Arterial Blood HCO3 8.3 L 21.0-28.0 mmol/L Arterial Blood Oxygen Saturation 95.6 94.0-98.0 % Arterial Blood Base Excess -21.7 L -2.0-3.0 mmol/L Arterial Blood Oxyhemoglobin 94.7 94.0-98.0 % Arterial Blood Carboxyhemoglobin 0.2 L 0.5-1.5 % Arterial Blood Methemoglobin 0.7 0.0-1.5 % Markus Test N/a Blood Gas Total Hemoglobin 10.90 L 13.5-17.5 g/dL Blood Gas Set Respiration Rate 22.0 Blood Gas Modality Vent - ac FiO2 % 50.0 Blood Gas Tidal Volume 550.0 Blood Gas PEEP or CPAP 5.0 Specimen Drawn By Destination Specialist aileen jhaveri Blood Gas Critical Value Read Back Yes Blood Gas Notified Whom jay Delcid Blood Gas Notified Time [id number] Blood Gas Notified By Destination Specialist aileen jhaveri White Blood Count 19.0 H 4.4-10.8 10^3/uL Red Blood Count 2.11 L 4.5-5.90 10^6/uL Hemoglobin 6.5 #*L 13.5-17.5 g/dL Hematocrit 20.0 #L 41.0-53.0 % Mean Corpuscular Volume 94.6 # 80.0-100.0 fL Mean Corpuscular Hemoglobin 30.9 28.0-32.0 pg Mean Corpuscular Hemoglobin Concent 32.6 32.0-36.0 g/dL Red Cell Distribution Width 13.6 11.8-14.3 % Platelet Count 223 140-450 10^3/uL Mean Platelet Volume 9.3 6.9-10.8 fL Neutrophils (%) (Auto) 37.0-80.0 % Lymphocytes (%) (Auto) 10.0-50.0 % Monocytes (%) (Auto) 0.0-12.0 % Basophils (%) (Auto) 0.0-2.0 % Neutrophils # (Auto) 1.6-8.6 10 ^3/uL Lymphocytes # (Auto) 0.4-5.4 10 ^3/uL Monocytes # (Auto) 0-1.3 10 ^3/uL Differential Total Cells Counted 100.0 100 Neutrophils % (Manual) 54 37.0-80.0 Band Neutrophils % (Manual) 14 Lymphocytes % (Manual) 24 10.0-50.0 Monocytes % (Manual) 7 0-12 Eosinophils % (Manual) 0 0-7 Basophils % (Manual) 0 0.0-2.0 Metamyelocytes % (manual) 1 Myelocytes % (Manual) 0 Promyelocytes % (Manual) 0 Blast Cells % (Manual) 0 Nucleated Red Blood Cells 1.0 % Reactive Lymphocytes 0 Platelet Estimate Adequate Anisocytosis (manual) Slight Prothrombin Time 19.6 H 9.3-11.8 sec Prothrombin Time INR 1.98 H 0.9-1.15 Activated Partial Thromboplast Time 53.8 H 24.5-34.5 SEC Fibrinogen 108 L 177-375 mg/dL Sodium Level 152 #H 136-145 mmol/L Potassium Level 4.6 3.5-5.1 mmol/L Chloride Level 108 H 98-107 mmol/L Carbon Dioxide Level 13 L 20-31 mmol/L Anion Gap 31 H 5-15 Blood Urea Nitrogen 30 H 9-23 mg/dL Creatinine 3.78 H 0.700-1.30 mg/dL Glomerular Filtration Rate Calc 22 >90 mL/min BUN/Creatinine Ratio 7.9 L 10.0-20.0 Serum Glucose 53 L 74-106 mg/dL Lactic Acid Level 17.2 *H 0.4-2.0 mmol/L Calcium Level 7.0 L 8.7-10.4 mg/dL Total Bilirubin 1.3 H 0.2-1.0 mg/dL Aspartate Amino Transferase (AST) 2327 H 13-40 U/L Alanine Aminotransferase (ALT) 2056 H 7-40 U/L Alkaline Phosphatase 160 H 46-116 U/L Total Protein 3.1 L 5.7-8.2 g/dL Albumin 1.9 L 3.2-4.8 g/dL Thyroid Stimulating Hormone (TSH) 11.05 H 0.55-4.78 uIU/mL Eosinophils (%) (Auto) 0.4 0.0-7.0 % Eosinophils # (Auto) 0.1 0-0.8 10 ^3/uL Basophils # (Auto) 0 0-0.2 10 ^3/uL Assessment Post-Operative Hemorrhage (s/p laparoscopic cholecystectomy 01/28/25, exploratory laparotomy 01/29/25): --Patient presented with large volume hemoperitoneum (704008 mL organized thrombus) without an identifiable arterial or venous bleeding source. --Current drainage output remains serosanguinous. Consumptive Coagulopathy / Disseminated Intravascular Coagulation (DIC physiology): --Lab findings: INR 1.98, aPTT 53.8, fibrinogen 108 mg/dL, Hb 5.1 g/dL. Platelets are currently preserved (159K) but may trend downward. --Consistent with shock-induced consumptive coagulopathy aggravated by surgery, massive tissue injury, and hypoperfusion. --Patient already received: - 3 PRBCs, 2 FFP - PCC (Kcentra 2000 units) for rapid INR correction - TXA 1 g IV --Next critical intervention is cryoprecipitate to raise fibrinogen >200 mg/dL. Multi-Organ Dysfunction due to Shock: --Renal: Acute kidney injury (Cr 3.8, oliguria, left kidney enlargement) likely ischemic ATN. --Hepatic: Severe transaminitis (AST/ALT >2000) consistent with ischemic hepatitis (shock liver). --Cardiac: Elevated troponin (>4300 ng/L), likely type II myocardial injury/demand ischemia in shock setting. --Metabolic: Severe lactic acidosis (lactate 17.2, pH 6.94, HCO?? 8.5) ? ongoing poor tissue perfusion. Hemodynamic Instability: --Currently intubated and sedated, on norepinephrine + vasopressin. --At high risk for further decompensation if bleeding continues or acidosis worsens. Prognosis: --Overall guarded given degree of multi-organ dysfunction, consumptive coagulopathy, and critical illness --Close coordination with ICU, surgery, and nephrology essential. Plan/Recommendation 1. Hemostatic / Transfusion Support --Cryoprecipitate: Administer immediately (goal fibrinogen >200 mg/dL). Recheck fibrinogen in 24 hours (after cryo has been admnistered) and repeat dosing as n eeded. Discussed with nurse. --Fresh Frozen Plasma (FFP): Continue to replace clotting factors (goal INR <1.5). Repeat as guided by INR/PT. --Platelets: Transfuse if platelet count falls <50,000/L in setting of bleeding. Consider higher threshold (>75-100K) if re-exploration is anticipated. --Packed Red Blood Cells (PRBCs): Continue transfusion support to maintain Hb >7 g/dL; given ongoing myocardial injury and shock, a higher target (8 g/dL) may be reasonable. --Monitor labs every 6 hours: CBC, PT/INR, aPTT, fibrinogen, lactate, electrolytes. Trend closely to guide transfusion. --Avoid overcorrection with PCC: Patient has already received Kcentra. No further PCC unless life-threatening bleeding recurs with INR >2. Risk of thrombosis is high in DIC physiology. 2. Pharmacologic Adjuncts --TXA: Already administered. No further doses recommended (limited benefit beyond initial window, higher thrombosis risk with PCC already given). --Desmopressin (DDAVP): Not indicated at present (no antiplatelet use, no chronic uremia, platelets preserved). Could consider if suspicion for platelet dysfunction develops. --Vitamin K: Give 10 mg IV empirically. While coagulopathy here is not vitamin Kdriven, it is safe, and may help if theres any perioperative cholestasis component. 3. Hemodynamic and Critical Care Support --Vasopressors: Continue norepinephrine; titrate vasopressin down if BP stabilizes. Maintain MAP >65 mmHg. --Volume resuscitation: Balanced approach continue transfusion-based resuscitation, avoid excessive crystalloids to minimize dilutional coagulopathy. --Acidosis correction: - Treat underlying shock/bleeding. - Sodium bicarbonate infusion per nephrology. 4. Acute renal injury --Nephrology following. --Avoid nephrotoxins. 5. Demand ischemia --Serial troponins and continuous telemetry. --Elevated troponin most likely type II (demand ischemia) but requires monitoring. --Maintain Hb >8 g/dL in setting of myocardial strain. 6. Shock liver --Transaminases >2000 = shock liver. No specific intervention beyond optimizing perfusion. --Avoid hepatotoxic meds. --Daily LFTs. 9. Post-operative --PATRIZIA drain output: monitor hourly for volume. --If bleeding worsens despite correction of coagulopathy, discuss with surgery/interventional radiology for re-exploration or embolization. Plan discussed with: Other (Discussed with patient's mother with multiple other family members present. Case also discussed with Dr. Ledesma and ICU nurse. ) MARCIN ARCINIEGA MD Jan 29, 2025 18:46
--- NOTE | 2025-01-29 19:03 | RESUS ---
CODE BLUE ASSESSSMENT Initial Information Date: Jan 29, 2025 Time: 16:25 Location of Arrest: Corrine Gastelum Jan 29, 2025 19:03
[2025-01-29 19:06] LABS: Urine Amorphous Crystal FEW /hpf (None Seen); Urine Protein, UAD 2+ (Negative)
[2025-01-29 19:09] LABS: Protein, Urine 245.5 mg/dL (1-14)
[2025-01-29 19:12] LABS: Cannabinoid Screen, Urine Neg (NEGATIVE); Opiate Scree,Urine Neg (NEGATIVE)
[2025-01-29 19:13] LABS: Barbiturate Scree,Urine Neg (NEGATIVE); Phencyclidine Screen, Urine Neg (NEGATIVE)
[2025-01-29 19:14] LABS: Amphetamine Screen, Urine Neg (NEGATIVE); Benzodiazephine Screen, Urine Pos (NEGATIVE); Cocaine Screen, Urine Neg (NEGATIVE)
[2025-01-29] MEDS: PHENYLEPHRINE IV 250 ML IV SCH (19:30)
[2025-01-29] MEDS: PHENYLEPHRINE IV 250 ML IV ONE (19:59)
--- NOTE | 2025-01-29 20:08 | DVHPN2 ---
Progress Note Date Seen: Jan 29, 2025 Has the PT tested + for MRSA If YES, has PT been informed?: No Medical Necessity Reason Pt with a Central, PICC or Fol: Yes The following are medically ne: Central Line, Mora Catheter Reason for mora catheter: Nakul. Abd Surgery Subjective Review of Systems Pt in SDU as ICU overflow. Per RN, A line and Cuff not correlating. A line SBP 74, cuff SBP 119. Sedation has been stopped. He remains with mechanical ventilator and vasopressor support. A lengthy discussion with the patient's mother was had. Inquired about events, as it was relayed to my that the patient had only coded at the ED. Per pt's mother, the patient. was conscious but stopped breathing, She then called 911 and he underwent CPR by EMS, gaining a pulse. She estimated the time to be an hour. Objective vital signs Vital Sign Date Time Temp Pulse Resp B/P (MAP) Pulse Ox O2 Delivery O2 Flow Rate FiO2 01/29/25 19:24 149 22 108/39 (62) 93 50 01/29/25 15:58 93.0 93.0 01/29/25 09:42 Mechanical Ventilator+ medications Current Medications Medications Dose Ordered Sig/Serenity Route Start Time Stop Time Status Last Admin Dose Admin Norepinephrine Bitartrate 250 ml @ 3.75 mls/hr Q24H IV 01/29/25 10:00 01/29/25 10:00 3.75 MLS/HR Midazolam HCl 50 ml @ 1 mls/hr Q24H IV 01/29/25 14:15 01/29/25 15:56 5 MLS/HR Fentanyl Citrate 250 ml @ 2.5 mls/hr Q24H IV 01/29/25 14:15 Vasopressin 20 units/Sodium Chloride 100 ml @ 9 mls/hr Q11H7M IV 01/29/25 15:00 01/29/25 15:39 9 MLS/HR Piperacillin Sod/ Tazobactam Sod 100 ml @ 25 mls/hr Q12HR IV 01/29/25 22:00 Pantoprazole Sodium 40 mg DAILY IV 01/30/25 10:00 Dextrose/Sodium Chloride 1,000 ml @ 100 mls/hr Q10H IV 01/29/25 16:30 Bumetanide 2.5 mg BIDD IV 01/29/25 18:00 Phenylephrine HCl 250 ml @ 30 mls/hr Q8H20M IV 01/29/25 19:30 Examination Neuro. Pupils fixed and dilated. No cough reflex or response to painful stimuli. CV. Tachycardic 130s and hypotensive. Hemodynamically unstable on vasopressor support. Pulmonary: Intubated with mechanical ventilator support. 550/22/40%/+5. GI: Soft, obese, non distended and non tender. Incision C/D/I. Drain with sanguineous fluid. Reportedly approximately 250 mL since surgery. OGT in place. Bilious fluid within. . Moar catheter in place. Scant amount of clear urine. Extremities; No edema. SCD in place. laboratory and microbiology Laboratory Tests 01/29/25 14:30 Test 01/29/25 14:30 Range/Units Serum Glucose 53 L 74-106 mg/dL Labs and/or images reviewed: Labs reviewed by me Problem List/Assessment/Plan Problems(with codes): (1) Hemorrhagic shock (2) Shock liver (3) ARF (acute renal failure) (4) Ventilator dependent (5) Coagulopathy Problem List/Assessment/Plan Neuro: Dilated pupils, no gag reflex or response to painful stimuli. Pending neuro consultation. Poor prognosis. Prolonged CPR (per mother's report). R/O MARGARETTE. CT Brain. Unfortunately, no contrast study given ARF CV: Hemodynamic instability secondary to hemorrhagic shock. Continue vasopressor support.Titrate as needed to maintain MAP 65. Elevated troponin, likely secondary to stress and CPR. Cardiology assistance appreciated. Mechanical DVT prophylaxis.Continue resuscitation with IVF/blood products. Pulmonary: VDRF. Continue ventilator. Pending pulmonary medicine consultation. R/O PE. VQ scan. Can't consider CTA chest given ARF GI: NPO. GI prophylaxis.Hepatic shock. . ARF secondary to hemorrhagic shock. Strict I&O. Mora to gravity. Metabolic acidosis. Appreciate nephrology assistance. Replace/correct electrolytes and NaHCO3 per nephrology. Heme/ID. Hemorrhagic shock and coagulopathy. Correct coagulopathy. Appreciate hematology assistance. Pt's mother made aware he may require additional surgical interventions. However, coagulopathy must be corrected. Prophylactic antibiotics. Endocrine: Tight glycemic control. Skin: Skin care and pressure ulcer precautions. Plan discussed with: Other (Mother) My Orders My Orders Orders - JITENDRA ZAMORA MD Procedure Category Date Status Time Frozen Plasma BBK 01/29/25 Logged 13:02 Admit ADMIT 01/29/25 Transmitted 13:50 Notify Of Changes YANET 01/29/25 In Process From Base 13:50 Peel Oven Tender For YANET 01/29/25 In Process 24 Hours 13:50 Emergency Dysrhythmia YANET 01/29/25 In Process Protocol 13:50 Rhythm Strips Once YANET 01/29/25 In Process Every Shift 13:50 Chest Portable XY 01/29/25 Resulted 13:50 A Line W/ Monitoring ORDERS 01/29/25 Transmitted ABP 13:50 Strict I & O YANET 01/29/25 In Process 13:50 Ventilator Orders RT 01/29/25 Transmitted 13:50 Insert/Manage Urinary YANET 01/29/25 In Process Catheter 13:50 Zachary Drain To Closed YANET 01/29/25 In Process Suction 13:50 Complete Blood Count LAB 01/30/25 Verified 04:00 Comprehensive LAB 01/30/25 Verified Metabolic Panel 04:00 Prothrombin Time W/ LAB 01/30/25 Verified INR 04:00 Partial LAB 01/30/25 Verified Thromboplastin Time 04:00 Abg W/ Co-Ox RT 01/29/25 Logged 13:50 Abg W/ Co-Ox RT 01/30/25 Logged 04:00 Midazolam Drip 50 PHA 01/29/25 In Process Mg/50ml (Versed Drip 5 14:15 Fentanyl Drip PHA 01/29/25 In Process 2500mcg/250mlns 14:15 Rass Sedation Scale YANET 01/29/25 In Process 14:10 Chest Portable XY 01/30/25 Logged 04:00 * Neurology Consult CONS 01/29/25 Transmitted 14:10 *Consult CONS 01/29/25 Transmitted / 14:10 *Dr. [facility] CONS 01/29/25 Transmitted -[place] 14:10 Communication Order ORDERS 01/29/25 Transmitted 14:22 * Cardiology Consult CONS 01/29/25 Transmitted 14:35 * Surgical Consult CONS 01/29/25 Transmitted Sequential YANET 01/29/25 In Process Compression Device 14:45 Famotidine Injection PHA 01/29/25 In Process (Pepcid Injection) 22:00 Lactic Acid W/ Reflex LAB 01/30/25 Verified Order 04:00 Piperacillin-Tazob PHA 01/29/25 In Process 3.375gm (Zosyn 3.375g 22:00 Full Code YANET 01/29/25 In Process 15:06 Electrocardigram EKG 01/29/25 Logged 15:06 Frozen Plasma BBK 01/29/25 Logged 15:12 Cryoprecipitate BBK 01/29/25 Logged 15:12 * Critical Care CONS 01/29/25 Transmitted Consult 15:12 * Internal Medicine CONS 01/29/25 Transmitted Consult Ventilator Orders RT 01/29/25 Transmitted 15:40 Pharmacy YANET 01/29/25 In Process Clarification: 16:10 Ventilator Orders RT 01/29/25 Transmitted 16:10 Abg W/ Co-Ox RT 01/29/25 Logged 17:15 Communication Order ORDERS 01/29/25 Transmitted 16:57 Communication Order ORDERS 01/29/25 Transmitted 16:57 * Hematology/Oncology CONS 01/29/25 Transmitted Consult 17:34 Complete Blood Count LAB 01/29/25 Logged 19:09 Basic Metabolic Panel LAB 01/29/25 Logged 19:09 PTPTT LAB 01/29/25 Logged 19:09 Prothrombin Time W/ LAB 01/29/25 Logged INR 19:09 Phenylephrine Iv PHA 01/29/25 In Process (Phenylephrine/Ns) 19:30 JITENDRA ZAMORA MD Jan 29, 2025 20:08
[2025-01-29] MEDS: IPRATROPIUM BROM 0.5 MG/2.5ML INH SOL ONE (20:13)
[2025-01-29] MEDS: LEVALBUTEROL HCL 1.25 MG/3 ML NEB ONE (20:13)
[2025-01-29] MEDS: VASOPRESSIN 100 UNITS in D5W 5% 495 ML IV SCH (20:15)
[2025-01-29 20:18] LABS: Hematocrit 38.3 % (41.0-53.0); Hemoglobin 12.1 g/dL (13.5-17.5); Mean Corpuscular Hemoglobin 29.6 pg (28.0-32.0); Mean Corpuscular Volume 93.3 fL (80.0-100.0); Nucleated Red Blood Cells % 0.9 %
[2025-01-29] MEDS: SODIUM BICARB 8.4% 50Meq/50ml SYR INJ ONE (20:19)
[2025-01-29 20:21] LABS: Anion Gap 28.00001 (5-15); Potassium 4.8 mmol/L (3.5-5.1)
[2025-01-29 20:27] LABS: BUN/Creatinine Ratio 6.9 (10.0-20.0); Magnesium 1.9 mg/dL (1.6-2.6)
[2025-01-29 20:30] LABS: INR 1.42 (0.9-1.15); Partial Thromboplastin Time 34.0 SEC (24.5-34.5); Prothrombin Time 14.5 sec (9.3-11.8)
[2025-01-29] MEDS ORDERED: VASOPRESSIN 40 UNITS in D5W 5% 198 ML IV SCH (20:30)
[2025-01-29] MEDS ORDERED: VASOPRESSIN 100 UNITS in D5W 5% 495 ML IV SCH (20:45)
--- NOTE | 2025-01-29 20:53 | DVHINCON2 ---
DATE OF CONSULTATION: 01/29/2025 GASTROENTEROLOGY CONSULTATION REFERRING PHYSICIAN: Robbin Ledesma MD REASON FOR CONSULTATION: Evaluation of acute transaminitis. HISTORY OF PRESENT ILLNESS: The patient is a very unfortunate 24-year-old male who underwent an elective outpatient laparoscopic cholecystectomy yesterday at [facility] for right upper quadrant pain and cholelithiasis. The patient was discharged in stable condition without any bleeding complications. The patient was discharged around 1:00 p.m. in the afternoon. The patient's mother, who was at bedside and is the primary historian, states the patient was very lethargic but was able to eat p.o. intake. She noticed at 2:00 this morning he was still very lethargic but requesting food. At approximately 8:30 this morning, the patient became further lethargic and eventually became unresponsive. The patient's mother had to perform CPR in the field up until the time EMS services arrived, at which point he was brought back to [facility] emergently for evaluation. Labs on admission revealed a serum hemoglobin of 6.5, hematocrit 20.0, white blood cell count 19.0, platelet count of 223,000. Diagnostic CT scan of the chest, abdomen, and pelvis revealed a hepatic hematoma measuring 8.6 cm with hemorrhage extending beyond the liver capsule into the right pericolic gutter as well as the pelvis. There is also a small volume pneumoperitoneum, and dependent atelectasis of the lower lobes. The patient was emergently taken back to surgery today by Dr. Ledesma at approximately 4:30 this afternoon. There was an evacuation of a large hemoperitoneum that was noted. He was subsequently admitted to the intensive care unit. At present, the patient is currently on maximum dose of Levophed, vasopressin, and Basilio-Synephrine. The patient does not have any prior history of liver issues preceding this hospital admission. He is currently not on any medication aside from an inhaler. He denies any drugs or alcohol, but the patient's mother stated that the patient did smoke marijuana up until 3 weeks ago due to his right upper quadrant pain. Gastroenterology service has been asked to provide input regarding his symptoms. DRUG ALLERGIES: None listed. HOME MEDICATIONS: None. PAST MEDICAL HISTORY: Recent laparoscopic cholecystectomy yesterday at [facility]. SOCIAL HISTORY: No drugs, alcohol, or tobacco. Recent cannabis use. FAMILY HISTORY: Noncontributory. REVIEW OF SYSTEMS: A 12-point review of systems is unobtainable as the patient is intubated. PHYSICAL EXAMINATION: VITAL SIGNS: He is afebrile. Heart rate is 149. Respiratory rate 22. Blood pressure is 108/39 on vasopressor support. O2 saturation is 93% on 50% FiO2. GENERAL: This is an obese 24-year-old male. He is intubated, sedated. He is unresponsive to verbal or tactile stimuli. HEENT: He has an endotracheal tube. CARDIOVASCULAR EXAM: Tachycardic. RESPIRATORY EXAM: Ventilated breath sounds. GASTROINTESTINAL: Obese abdomen. Recent laparotomy site. EXTREMITIES: No clubbing, no cyanosis. LABORATORY EVALUATION: Most recent hemoglobin is white blood cell count 19.0, hemoglobin 6.5 as of 4:30 p.m., hematocrit 20.0, MCV 94.6, platelet count is 223,000. Basic metabolic panel revealed a sodium of 152, potassium 4.6, chloride 108, bicarbonate 13, BUN 30, creatinine 3.78, blood glucose 53, calcium 7.0, bilirubin 1.3, AST is 2327, ALT is 2056, alkaline phosphatase 160, troponin is 7493, protein is 3.1, albumin 1.9, TSH 11.05, INR is 1.98, protime is 19.6, PTT is 53.8. Toxicology screen is positive for fentanyl and benzodiazepines. Blood gas as of 5:26 p.m. shows a pH of 7.009, pCO2 is 33.9, pO2 is 109.6. ASSESSMENT: * Acute transaminitis secondary to hypovolemic shock resulting in acute transaminitis. * Status post laparoscopic cholecystectomy complicated by hemoperitoneum. * Acute hypoxic respiratory failure. * Cardiogenic shock. * Acute renal failure. * Coagulopathy. * Hypoglycemia. * Hypoalbuminemia. * Leukocytosis. RECOMMENDATIONS: * Aggressive volume resuscitation of packed red blood cells and normal saline. * Correct coagulopathy with fresh frozen plasma and cryoprecipitate. * Obviously strict n.p.o. * Cardiogenic support. * Monitor LFTs with daily labs. * Cardiology evaluation for demand ischemia. * Overall prognosis remains critical. * We will continue to follow up closely. DO ALEXANDRA Garcia TID: [id number] RECEIPT: [id number]
[2025-01-29 21:10] LABS: Blood Urea Nitrogen 27 mg/dL (9-23); Calcium 6.7 mg/dL (8.7-10.4); Carbon Dioxide < 10 mmol/L (20-31); Chloride 109 mmol/L (98-107); Glucose 113 mg/dL (74-106); Sodium 147 mmol/L (136-145)
[2025-01-29] MEDS: SODIUM BICARB 50mEq/50ml Vial 100 ML in D5W 5% 1,000 ML IV SCH (21:30)
[2025-01-29] MEDS ORDERED: PIPERACILLIN-TAZOB 2.25GM 50 ML IV SCH (22:00)
[2025-01-29 22:01] LABS: Base Excess -16.1 mmol/L (-2.0-3.0)
[2025-01-29] MEDS: FAMOTIDINE (10MG/ML) 2ML VL IV ONE (23:10)
[2025-01-29] MEDS: PIPERACILLIN-TAZOB 3.375GM 100 ML IV SCH (23:11)
[2025-01-30] VITALS (97 sets, daily range): BP systolic 75–215; BP diastolic 53–176; PULSE 120–137; RESP 17–27; TEMP 96.1–97.8; O2SAT 96–100
[2025-01-30] MEDS: IPRATROPIUM BROM 0.5 MG/2.5ML INH SOL NEB PRN (00:08)
[2025-01-30] MEDS: LEVALBUTEROL HCL 1.25 MG/3 ML NEB NEB PRN (00:08)
[2025-01-30] MEDS: EPINEPHrine HCL 250 ML IV SCH (00:15)
[2025-01-30 00:46] LABS: Hematocrit 34.5 % (41.0-53.0); Hemoglobin 11.1 g/dL (13.5-17.5); Mean Corpuscular Hemoglobin 29.9 pg (28.0-32.0); Mean Corpuscular Volume 93.1 fL (80.0-100.0)
[2025-01-30 00:49] LABS: Chloride 106 mmol/L (98-107); Potassium 3.9 mmol/L (3.5-5.1)
[2025-01-30 00:50] LABS: Anion Gap 30 (5-15)
[2025-01-30 00:53] LABS: Calcium 6.4 mg/dL (8.7-10.4); Carbon Dioxide 11 mmol/L (20-31); Sodium 147 mmol/L (136-145)
[2025-01-30 00:55] LABS: BUN/Creatinine Ratio 7.6 (10.0-20.0)
[2025-01-30 00:58] LABS: Blood Urea Nitrogen 30 mg/dL (9-23); Glucose 267 mg/dL (74-106)
[2025-01-30 01:01] LABS: INR 1.34 (0.9-1.15); Partial Thromboplastin Time 29.8 SEC (24.5-34.5); Prothrombin Time 13.8 sec (9.3-11.8)
[2025-01-30 01:36] LABS: Total Cells Counted 100.0 (100)
[2025-01-30] MEDS: ROCURONIUM 10MG/ML 10ML VIAL IV ONE (02:45)
[2025-01-30] MEDS ORDERED: SODIUM CHLORIDE LOCK 50 ML ONE (02:48)
[2025-01-30] MEDS ORDERED: KETAMINE 50mg/ML 10ml Vial 10 ML ONE (02:48)
[2025-01-30] MEDS ORDERED: fentaNYL CITRATE 100 MCG/2 ML VL ONE ×2 (02:48→02:49)
[2025-01-30] MEDS ORDERED: ETOMIDATE (2MG/ML) 20ML VIAL IV ONE (02:48)
[2025-01-30] MEDS ORDERED: MIDAZOLAM HCL 2MG/2ML 2ml VIAL (1mg/ml) ONE ×2 (02:48→04:31)
[2025-01-30] MEDS ORDERED: MORPHINE SULF PF 5 MG/10 ML VIAL ONE ×2 (02:48→04:25)
[2025-01-30] MEDS: CALCIUM CHL(10%) 100MG/ML 10ML VIAL IV ONE (03:07)
[2025-01-30] MEDS ORDERED: CALCIUM CHL(10%) 100MG/ML 10ML VIAL IV ONE (03:30)
--- NOTE | 2025-01-30 03:38 | DVHPN2 ---
Progress Note Date Seen: Jan 30, 2025 Has the PT tested + for MRSA If YES, has PT been informed?: No Medical Necessity Reason Pt with a Central, PICC or Fol: Yes The following are medically ne: Central Line, Mora Catheter Reason for mora catheter: Nakul. Abd Surgery Subjective Review of Systems Called by RN at 150 AM with lab and clinical update. Improved coagulation parameters and Hgb. Remains with renal failure and with metabolic acidosis. 300 mL of sanguineous fluid from drain and increased distention. Further discussion was held with mother with regards to timing of events.She stated he was conscious but stopped breathing, She then called 911, the dispatcher recommended to initiate CPR and coached her how to. This was done while he was on his bed until EMS arrived and moved him to the floor and "worked on him for about an hour" before gaining a pulse. Patient's mother states having a strong mosque nicko. She inquired whether if she had called sooner, outcome would have been different. I asked her to not think about that. Brother asked to pray together. We prayed in his room before taking him to the operating room. Objective vital signs Vital Sign Date Time Temp Pulse Resp B/P (MAP) Pulse Ox O2 Delivery O2 Flow Rate FiO2 01/30/25 01:02 116/89 01/30/25 00:30 97.2 129 26 99 207.0 01/30/25 00:14 50 01/29/25 23:56 Mechanical Ventilator+ Total Intake and Output 01/29/25 01/29/25 01/30/25 15:00 23:00 07:00 Intake Total 360 ml 3269.75 ml Output Total 0 ml 180 ml Balance 360 ml 3089.75 ml medications Current Medications Medications Dose Ordered Sig/Serenity Route Start Time Stop Time Status Last Admin Dose Admin Norepinephrine Bitartrate 250 ml @ 3.75 mls/hr Q24H IV 01/29/25 10:00 01/30/25 01:02 56.25 MLS/HR Midazolam HCl 50 ml @ 1 mls/hr Q24H IV 01/29/25 14:15 01/29/25 15:56 5 MLS/HR Fentanyl Citrate 250 ml @ 2.5 mls/hr Q24H IV 01/29/25 14:15 Piperacillin Sod/ Tazobactam Sod 100 ml @ 25 mls/hr Q12HR IV 01/29/25 22:00 01/29/25 23:11 25 MLS/HR Pantoprazole Sodium 40 mg DAILY IV 01/30/25 10:00 Dextrose/Sodium Chloride 1,000 ml @ 100 mls/hr Q10H IV 01/29/25 16:30 01/29/25 16:30 100 MLS/HR Bumetanide 2.5 mg BIDD IV 01/29/25 18:00 Phenylephrine HCl 250 ml @ 30 mls/hr Q8H20M IV 01/29/25 19:30 01/29/25 19:30 30 MLS/HR Levalbuterol HCl 0.625 mg Q4HR PRN NEB 01/29/25 20:00 01/30/25 00:08 0.625 MG Ipratropium [place] 0.5 mg Q4HPRN PRN NEB 01/29/25 20:00 01/30/25 00:08 0.5 MG Sodium Bicarbonate 100 ml/Dextrose 1,100 ml @ 100 mls/hr Q11H IV 01/29/25 20:00 Vasopressin 100 units/Dextrose 500 ml @ 60 mls/hr Q8H20M IV 01/29/25 21:15 01/29/25 20:15 60 MLS/HR Epinephrine HCl 250 ml @ 7.5 mls/hr Q24H IV 01/30/25 00:15 Examination Neuro. Pupils remain fixed and dilated. No gag reflex or response to painful stimuli. CV. Tachycardic 120s and hypotensive. Hemodynamically unstable on vasopressor support. Levophed, Vasopressin and Phenylephrine.A line and BP cuff not correlating. Cuff SBP off (high) by 50 to 60 points. A line with adequate waveform. Pulmonary: Intubated with mechanical ventilator support. 550/26/40%/+5. GI: Soft, obese, distended and non tender. Incision C/D/I. Drain with thin sanguineous fluid. OGT in place. Scant bilious fluid within. . Mora catheter in place. Small amount of clear urine in collection meter. Extremities; No edema. SCD in place. laboratory and microbiology Laboratory Tests 01/30/25 00:23 Test 01/30/25 00:23 Range/Units Serum Glucose 267 #H 74-106 mg/dL Labs and/or images reviewed: Labs reviewed by me Problem List/Assessment/Plan Problems(with codes): (1) Hemorrhagic shock (2) Coagulopathy (3) ARF (acute renal failure) (4) Ventilator dependent (5) Shock liver Problem List/Assessment/Plan Neuro: Dilated pupils, no gag reflex or response to painful stimuli. Pending neuro consultation. Poor prognosis. Prolonged CPR (per mother's report). R/O MARGARETTE. Pending CT Brain. Unfortunately, no contrast study given ARF. Patient's mother and brother aware that prolonged CPR has neurologic sequelae, possibly permanent. At this time uncertain but not reassuring. Waiting for Neuro evaluation. CV: Hemodynamic instability secondary to hemorrhagic shock. Continue vasopressor support.Titrate as needed to maintain MAP 65. Elevated troponin, likely secondary and/or worsened by hemodynamic stress and CPR. Can't rule out ischemia. Cardiology assistance appreciated. Mechanical DVT prophylaxis.Continue resuscitation with IVF/blood products as needed to maintain adequate hemodynamics/perfusion. Pulmonary: VDRF. Continue ventilator. Pending pulmonary medicine consultation. R/O PE. Pending VQ scan. Can't consider CTA chest given ARF. GI: NPO. GI prophylaxis.Hepatic shock. Appreciate GI input . ARF secondary to hemorrhagic shock. Strict I&O. Mora to gravity. Metabolic acidosis. Appreciate nephrology assistance. Replace/correct electrolytes and NaHCO3 gtt per nephrology. Heme/ID. Received TXA, PCC, 3 u PRBC. 3 FFP and 2 u Cryoprecipitate. Hemorrhagic shock and coagulopathy. Hgb 11. Improved coagulopathy. Appreciate hematology assistance. Doubt sepsis. Prophylactic antibiotics. Endocrine: Tight glycemic control. Skin: Skin care and pressure ulcer precautions. I had a lengthy discussion with the patient's mother and brother who were present in the room. They were updated with regards to the improvement of his coagulopathy and hemoglobin. They are aware that his condition still remains critical and prognosis is guarded, as he still has renal failure, liver ischemia and his neurological function remains unchanged. Given abdominal distention and persistent sanguineous fluid drain output, I recommended an exploratory laparotomy, possible packing, possible second look laparotomy to remove packing. They are aware that intraoperative finding will dictate end result of the procedure. They were informed about the procedure, risks and benefits. Questions were answered. They understood and agreed to proceed. Mother signed consent. Plan discussed with: Other (Mother and brother) My Orders My Orders Orders - JITENDRA ZAMORA MD Procedure Category Date Status Time Frozen Plasma BBK 01/29/25 Logged 13:02 Admit ADMIT 01/29/25 Transmitted 13:50 Notify Of Changes YANET 01/29/25 In Process From Base 13:50 Telephone Operator Receptionist For YANET 01/29/25 In Process 24 Hours 13:50 Emergency Dysrhythmia YANET 01/29/25 In Process Protocol 13:50 Rhythm Strips Once YANET 01/29/25 In Process Every Shift 13:50 Chest Portable XY 01/29/25 Resulted 13:50 A Line W/ Monitoring ORDERS 01/29/25 Transmitted ABP 13:50 Strict I & O YANET 01/29/25 In Process 13:50 Ventilator Orders RT 01/29/25 Transmitted 13:50 Insert/Manage Urinary YANET 01/29/25 In Process Catheter 13:50 Zachary Drain To Closed YANET 01/29/25 In Process Suction 13:50 Complete Blood Count LAB 01/30/25 Logged 04:00 Comprehensive LAB 01/30/25 Logged Metabolic Panel 04:00 Prothrombin Time W/ LAB 01/30/25 Logged INR 04:00 Partial LAB 01/30/25 Logged Thromboplastin Time 04:00 Abg W/ Co-Ox RT 01/29/25 Logged 13:50 Abg W/ Co-Ox RT 01/30/25 Logged 04:00 Midazolam Drip 50 PHA 01/29/25 In Process Mg/50ml (Versed Drip 5 14:15 Fentanyl Drip PHA 01/29/25 In Process 2500mcg/250mlns 14:15 * Neurology Consult CONS 01/29/25 Transmitted 14:10 *Consult CONS 01/29/25 Transmitted / 14:10 *Dr. [facility] CONS 01/29/25 Transmitted -[place] 14:10 Communication Order ORDERS 01/29/25 Transmitted 14:22 * Cardiology Consult CONS 01/29/25 Transmitted 14:35 * Surgical Consult CONS 01/29/25 Transmitted Sequential YANET 01/29/25 In Process Compression Device 14:45 Lactic Acid W/ Reflex LAB 01/30/25 Logged Order 04:00 Piperacillin-Tazob PHA 01/29/25 In Process 3.375gm (Zosyn 3.375g 22:00 Full Code YANET 01/29/25 In Process 15:06 Electrocardigram EKG 01/29/25 Logged 15:06 Frozen Plasma BBK 01/29/25 Logged 15:12 Cryoprecipitate BBK 01/29/25 In Process 15:12 * Critical Care CONS 01/29/25 Transmitted Consult 15:12 * Internal Medicine CONS 01/29/25 Transmitted Consult Ventilator Orders RT 01/29/25 Transmitted 15:40 Pharmacy YANET 01/29/25 In Process Clarification: 16:10 Ventilator Orders RT 01/29/25 Transmitted 16:10 Abg W/ Co-Ox RT 01/29/25 Logged 17:15 Communication Order ORDERS 01/29/25 Transmitted 16:57 Communication Order ORDERS 01/29/25 Transmitted 16:57 * Hematology/Oncology CONS 01/29/25 Transmitted Consult 17:34 Phenylephrine Iv PHA 01/29/25 In Process (Phenylephrine/Ns) 19:[address] 01/29/25 Logged 19:40 Nm Vq Scan NM 01/29/25 Logged 19:40 D5w 5% (Dextrose 5%) PHA 01/29/25 In Process W/Vasopressin 21:15 JITENDRA ZAMORA MD Jan 30, 2025 03:38
[2025-01-30] MEDS: LIDOCAINE 1% HCL (LOCAL ANESTH.) INJ 20ML MDV ONE (03:39)
[2025-01-30] MEDS: BUPIVACAINE 0.5% MPF INJ 30ML SDV IJ ONE (03:39)
[2025-01-30] MEDS: VASOPRESSIN 20 UNIT/ML ONE (03:52)
[2025-01-30] MEDS ORDERED: ROCURONIUM 10MG/ML 10ML VIAL IV ONE (04:16)
[2025-01-30 07:22] LABS: Base Excess -13.5 mmol/L (-2.0-3.0)
[2025-01-30] MEDS: VASOPRESSIN 20 UNITS in SODIUM CHL 0.9% 99 ML IV SCH (07:30)
--- NOTE | 2025-01-30 07:43 | DVHPN ---
DATE: 01/30/2025 GASTROENTEROLOGY PROGRESS NOTE REFERRING PHYSICIAN: Dr. Robbin Ledesma SUBJECTIVE: The patient is examined. The patient remains intubated and sedated. He is currently on Levophed and vasopressin. Basilio-Synephrine was discontinued yesterday. The patient was taken back to the OR for abdominal distention yesterday evening. Next, there was no source of the patient's distention. The patient's family at the bedside. ICU nursing staff reports that he has been making urine. PHYSICAL EXAMINATION: Vital signs: Temperature is afebrile, heart rate 125, respirations 26, blood pressure is 151/110, O2 saturation 100% on 55% FiO2. He is a 24-year-old obese male. Intubated, sedated. GI exam is soft. Hyperactive bowel sounds. Recent laparotomy site was not open for evaluation. LABORATORY EVALUATION: White blood cell count 20.6, hemoglobin 11.5, hematocrit 34.5, MCV 93.1, platelet count is 161,000. Basic metabolic panel: Sodium 147, potassium 3.9, chloride 106, bicarbonate 11, BUN 30, creatinine 3.95, blood glucose is 267, calcium is 6.4. His INR 1.34. ProTime is 13.8. ASSESSMENT AND RECOMMENDATIONS: * Transaminitis secondary to hypovolemic shock resulting in transaminitis. * Status post laparoscopic cholecystectomy complicated by hemoperitoneum. * Acute hypoxic respiratory failure. * Cardiogenic shock. * Renal failure. * Coagulopathy. * Hyperglycemia. * Hypoalbuminemia. * Leukocytosis. RECOMMENDATIONS: * He is postoperative day #2. The patient underwent a second surgery for abdominal distention. No evidence of obstruction. * Coagulopathy has been corrected with blood products. * Keep n.p.o. * The patient remains on vasopressin and Levophed. * Monitor LFTs with daily labs. * Overall prognosis remains critical. * Consider TPN over the next 3 days. DO SATHYA Garcia TID: [id number] RECEIPT: [id number]
--- NOTE | 2025-01-30 07:52 | DVHSR ---
APPROVED REPORT EXAM: LIMITED Two-dimensional and M-mode echocardiogram with Doppler and color Doppler. Blood Pressure: 120/66 mmHg INDICATION Elevated Troponin RISK FACTORS Obesity: Height: 5' 8", Weight: 200 DIMENSIONS LVDd4.1 (3.8-5.7cm)LA (2D)3.3 (1.9-4.0cm)Aortic Root (2.0-3.7cm) LVDs2.9 (2.5-4.0cm)LA (MM) (1.9-4.0cm)Aortic Cusp Exc (1.5-2.0cm) EF (%) 56.0 (55-70%)Rt. Atrium4.3 (1.9-4.0cm)Asc. Aorta cm IVSd1.0 (0.7-1.1cm)RV (D) (1.8-2.4cm) PWd0.8 (0.7-1.1cm) Mitral Valve MitralMitral Stenosis E/A ratio0.02D MVAcm2 Tricuspid Valve TR Velocity3.28m/s [id number] Other Information Quality : Technically LimitedRhythm : Technically limited study due to body habitus. Conclusion Technically limited study secondary to poor acoustic windows. Left ventricle: Left ventricle was normal-sized with normal systolic function. LVEF was 55-60%. No gross wall motion abnormality was seen. Right ventricle was mildly dilated with normal systolic function. Left atrium was normal-sized. Rig ht atrium was mildly dilated. Aortic valve: Aortic valve was not well visualized. There was no aortic insufficiency/stenosis. Th ere was no mitral regurgitation. There was trace tricuspid regurgitation. Pulmonary valve was not w ell visualized. IVC was not visualized. Right ventricular systolic pressure was assessed around 48 mm Hg. There was no pericardial effusion.
[2025-01-30 07:59] LABS: Hematocrit 35.7 % (41.0-53.0); Hemoglobin 12.1 g/dL (13.5-17.5); Mean Corpuscular Hemoglobin 30.8 pg (28.0-32.0); Mean Corpuscular Volume 91.2 fL (80.0-100.0); Nucleated Red Blood Cells % 0.2 %
--- NOTE | 2025-01-30 07:59 | ECG ---
[facility] Test Date: 2025-01-29 Test Time: 16:11:50 Pat Name: MARLON PAYNE Department: Room: [address] [place] [address] A Gender: M [employer] Winder: VANDANA : 2000 Requested By: JITENDRA DE JESUS Order Number: [id number] Reading MD: Alex Nguyen Measurements Intervals [place] Rate: 141 P: 69 MT: 132 QRS: 20 QRSD: 92 T: 37 QT: 284 QTc: 434 Interpretive Statements Sinus tachycardia Cannot rule out Inferior infarct , age undetermined Electronically Signed On 01-30-2025 15:09:37 PDT by Alex Nguyen Please click the below link to view image of tracing.
[2025-01-30 08:08] LABS: Anion Gap 24 (5-15)
[2025-01-30 08:09] LABS: Calcium 6.7 mg/dL (8.7-10.4); Carbon Dioxide 14 mmol/L (20-31); Chloride 108 mmol/L (98-107); Potassium 2.9 mmol/L (3.5-5.1); Sodium 146 mmol/L (136-145)
[2025-01-30 08:10] LABS: INR 1.32 (0.9-1.15); Partial Thromboplastin Time 28.7 SEC (24.5-34.5); Prothrombin Time 13.6 sec (9.3-11.8)
[2025-01-30 08:12] LABS: BUN/Creatinine Ratio 6.7 (10.0-20.0)
[2025-01-30 08:13] LABS: Blood Urea Nitrogen 29 mg/dL (9-23); Glucose 279 mg/dL (74-106)
[2025-01-30 08:18] LABS: Lactic Acid w/Reflex 11.4 mmol/L (0.4-2.0)
[2025-01-30 08:28] LABS: Alkaline Phosphatase 137 U/L (46-116)
[2025-01-30 08:29] LABS: Alanine Aminotransferase 2521 U/L (7-40); Albumin 2.5 g/dL (3.2-4.8); Bilirubin, Total 2.6 mg/dL (0.2-1.0); Total Protein 4.3 g/dL (5.7-8.2)
--- NOTE | 2025-01-30 09:00 | DVHPN2 ---
Progress Note - Dictate Date Seen: Jan 30, 2025 Has the PT tested + for MRSA If YES, has PT been informed?: No Medical Necessity Reason Pt with a Central, PICC or Fol: Yes The following are medically ne: Central Line, Mora Catheter Reason for mora catheter: Nakul. Abd Surgery vital signs Vital Sign Date Time Temp Pulse Resp B/P (MAP) Pulse Ox O2 Delivery O2 Flow Rate FiO2 01/30/25 08:09 128 26 142/107 (119) 98 55 01/30/25 06:00 96.8 96.8 01/30/25 06:00 Mechanical Ventilator+ Total Intake and Output 01/29/25 01/29/25 01/30/25 15:00 23:00 07:00 Intake Total 360 ml 3343.75 ml 1166.25 ml Output Total 0 ml 180 ml 1030 ml Balance 360 ml 3163.75 ml 136.25 ml medications Current Medications Medications Dose Ordered Sig/Serenity Route Start Time Stop Time Status Last Admin Dose Admin Norepinephrine Bitartrate 250 ml @ 3.75 mls/hr Q24H IV 01/29/25 10:00 01/30/25 06:00 56.25 MLS/HR Midazolam HCl 50 ml @ 1 mls/hr Q24H IV 01/29/25 14:15 01/29/25 15:56 5 MLS/HR Fentanyl Citrate 250 ml @ 2.5 mls/hr Q24H IV 01/29/25 14:15 Piperacillin Sod/ Tazobactam Sod 100 ml @ 25 mls/hr Q12HR IV 01/29/25 22:00 01/29/25 23:11 25 MLS/HR Pantoprazole Sodium 40 mg DAILY IV 01/30/25 10:00 Dextrose/Sodium Chloride 1,000 ml @ 100 mls/hr Q10H IV 01/29/25 16:30 01/30/25 06:30 100 MLS/HR Bumetanide 2.5 mg BIDD IV 01/29/25 18:00 Phenylephrine HCl 250 ml @ 30 mls/hr Q8H20M IV 01/29/25 19:30 01/30/25 06:05 97.5 MLS/HR Levalbuterol HCl 0.625 mg Q4HR PRN NEB 01/29/25 20:00 01/30/25 00:08 0.625 MG Ipratropium [place] 0.5 mg Q4HPRN PRN NEB 01/29/25 20:00 01/30/25 00:08 0.5 MG Sodium Bicarbonate 100 ml/Dextrose 1,100 ml @ 100 mls/hr Q11H IV 01/29/25 20:00 01/29/25 21:30 100 MLS/HR Epinephrine HCl 250 ml @ 7.5 mls/hr Q24H IV 01/30/25 00:15 Vasopressin 20 units/Sodium Chloride 100 ml @ 9 mls/hr Q11H7M IV 01/30/25 07:30 laboratory and microbiology Laboratory Tests 01/30/25 07:37 Test 01/30/25 07:37 Range/Units Serum Glucose 279 H 74-106 mg/dL Assessment/Plan Being managed in ICU. Was taken to OR again in early AM. Still intubated and on pressure and vent supports. Still no reflexes. Echocardiogram revealed no WMA and also revealed good EF. It also revealed increased Pulmonary Artery Pressure in favor of component of Pulmonary Hypertension. Patient is a 24-year-old gentleman who was originally brought to the hospital for post arrest. Patient is seen in postop area. Patient is intubated and on multiple pressor supports. Patient is not source of history. Information was obtained by reviewing the chart, talking to patient's family/mother and communicating with staff and reviewing outside records ([facility]). Patient did have elective outpatient laparoscopic cholecystectomy in [facility] on January 28 2025. As per mother, after going home, patient was feeling very hungry and was eating and drinking a lot. He started feeling abdominal pain with nausea at night and in the morning was short of breath. As per mother: patient has stopped breathing in the morning and family called 911. As per mother, as per guidance of 911, family started CPR until EMS arrived. Patient was intubated and was brought to the hospital by EMS. Since arrival to [facility], patient was seen by surgeon who took the patient to operating room and performed laparotomy (there was hepatic hematoma). Postoperatively, the patient has remained hypotensive. There is signs for multiorgan involvement. Patient was not alert and did not complain of any chest pains. Labs revealed increased troponin. Cardiology is involved for cardiac aspects of care and abnormal troponin. First available EKG reveals sinus tachycardia with no specific ST-T changes. Telemetry had revealed sinus tachycardia throughout the stay. Patient is found to have significant anemia and is receiving blood transfusion at the time of evaluation. It is of note that at the time of evaluation patient does not have any reflexes. Intubated. Mucosa pale. Scattered rhonchi in the lungs. Cardiac: Tachycardic. No murmur. Abdomen is covered by dressing. Extremities do not reveal any edema. Dorsalis pedis is 1+ bilateral. Pupils are not reflective to light. Patient does not respond to any painful stimuli Reported past medical history includes asthma and obesity. Reportedly, on January 23, 2025: Patient presented to [facility] for abdominal pain/nausea/vomiting. At that point the problems were ongoing for few weeks. In [facility], CT of the abdomen and MRCP were performed. Patient was seen by GI/surgery. Patient was found to have gallstones. Patient was discharged and later on January 28, 2025 presented back to [facility] for elective laparoscopy cholecystectomy. Patient was discharged home from [facility] after laparoscopic cholecystectomy. As per mother, patient does not have baseline history of any cardiac history. As per mother, patient was using marijuana. Mother denies any previous substance abuse besides marijuana. No specific family history is reported On January 23, 2025, labs in [facility] revealed creatinine of 0.84, hemoglobin of 15.2 and troponin (high sensitive) of <3. At that point EKG was normal WBC: 20.1 - 19.0 - 22.7 - 20.6 - 28.4 Hemoglobin: 8.3 - 6.5 - 12.1 - 11.1 - 12.1 INR: 1.74 - 1.98 - 1.42 - 1.34 - 1.32 Fibrinogen: 108 Creatinine: 4.02 - 3.78 - 3.90 - 3.95 - 4.34 Potassium: 5.6 - 4.6 - 4.8 - 3.9 - 2.9 AST/ALT: 676/700 - 2327/2056 - 4636/2521 Lactic acid: 17.9 - 17.2 Troponin (high sensitive): 6603 - 2372 - 4616 - 7086 - 7182 TSH: 11.05 Urine Toxicology: positive for Fentanyl and Benzodiazepine Chest x-ray revealed: Lines and Tubes: Endotracheal tube projects 2.2 cm above the meghan. Right internal jugular central venous catheter tip projects over superior vena cava. Lungs: No focal consolidation. Low lung volumes. Pleura: No effusion. No pneumothorax. Cardiomediastinal contours: Unremarkable Bones: No acute osseous abnormality. IMPRESSION: Lines and tubes as above. Low lung volumes. Repeat chest x-ray revealed: IMPRESSION: Lines and tubes in satisfactory position. Mild increased pulmonary vascular congestion CT of the chest/abdomen/pelvis revealed: IMPRESSION: 1. Hepatic hematoma measuring up to approximately 8.6 cm in greatest dimension, as described above, with hemorrhage extending beyond the liver capsule and into the right pericolic gutter as well as into the pelvis. No definite active arterial bleeding is seen on this exam, although limited evaluation due to the timing of contrast, as this was not a CTA exam. 2. Postsurgical changes of cholecystectomy. 3. Dilated fluid-filled small bowel loops, may be due to postoperative ileus. No small bowel obstruction. 4. Small volume pneumoperitoneum, likely due to recent surgery. Small volume of gas are seen in the upper ventral abdomen from the recent surgery. 5. Dependent atelectasis in the lower lobes. Otherwise, no acute disease in the chest. 6. Endotracheal tube and enteric tube in place. 7. Atrophic right kidney incidentally noted. 8. Additional findings as described above. Critical findings Critical Result: Acute hepatic hematoma with hemorrhage extending beyond the liver capsule into the adjacent portions of the abdomen and into the pelvis as detailed above. CT of the head revealed: IMPRESSION: 1. No evidence of acute intracranial abnormality. Renal Ultrasound revealed: IMPRESSION: 1. Right kidney not visible. 2. Left kidney is enlarged. 3. No hydronephrosis. Arrival EKG revealed sinus tachycardia with nonspecific ST-T changes Tele reveals sinus tachycardia Echocardiogram revealed: Technically limited study secondary to poor acoustic windows. Left ventricle: Left ventricle was normal-sized with normal systolic function. LVEF was 55-60%. No gross wall motion abnormality was seen. Right ventricle was mildly dilated with normal systolic function. Left atrium was normal-sized. Right atrium was mildly dilated. Aortic valve: Aortic valve was not well visualized. There was no aortic insufficiency/stenosis. There was no mitral regurgitation. There was trace tricuspid regurgitation. Pulmonary valve was not well visualized. IVC was not visualized. Right ventricular systolic pressure was assessed around 48 mm Hg. There was no pericardial effusion. Patient is a 24-year-old gentleman who presented with post arrest. It seems that the patient had hemorrhagic (intra-abdominal) presentation. Patient did have elective laparoscopic cholecystectomy the day before presentation. On the day of presentation, the patient was taken back to operating room and this time Laparotomy was done for hepatic hematoma. Patient does have multiorgan involvement. Clinically there is no brainstem reflexes. Shock liver/acute renal failure is considered. Troponin has been high. EKG did not reveal any STEMI. Presentation could be high troponin secondary to demand physiology. Patient does not have any risk factors for baseline coronary artery disease. In ideal scenario, ischemic workup/cardiac catheterization could be more revealing. Unfortunately, the patient does have acute renal failure which could be worsened by cardiac catheterization at this point. As there was no higher brain functions the suggestion is to wait and see if patient regains any higher brain function. It is of note that during cardiac catheterization, the patient may need some anticoagulation/antiplatelets. At this point patient is having significant anemia/bleeding and receiving blood transfusion and holding off of scenario forcing Anticoagulation/antiplatelets is advised. I had a long discussion with family members and Mother (repeatedly). They also want to wait before any repeat invasive evaluation/management. Clinically patient has multiorgan failure. Secondary to active bleeding, we will avoid anticoagulation/antiplatelets for now. Being managed in ICU. Was taken to OR again. Still no reflexes. Echocardiogram revealed no WMA and also revealed good EF. It also revealed increased Pulmonary Artery Pressure in favor of component of Pulmonary Hypertension. Review of Echo images revealed good right ventricular systolic function. Not typical for Pulmonary Emboli. Still, PE cannot be ruled out. If PE is ruled out, then it is possible that patient had Pulmonary Hypertension from before (Baseline history of Asthma may actually reflect it). s/p PRBC transfusion (multiple). Being followed by Surgery, Nephrology, Hematology and GI. Primary team is managing the pulmonary issues s/ p Arrest Intra-abdominal bleeding Hepatic hematoma Multiorgan failure, due to shock Shock liver Lactic Acidosis Acute renal failure Acute respiratory failure, on vent support Status post laparotomy Status post laparoscopic cholecystectomy Abnormal troponin, evaluated to reflect possible demand physiology History of gallstones History of asthma Obesity History of marijuana abuse Consumptive Coagulopathy / DIC Pulmonary Hypertension Cardiac suggestion for management: Manage in ICU Pressure support (patient on Levophed/vasopressor at the time) Follow-up electrolytes and kidney function tests and correct abnormalities Evaluation and management of respiratory failure as per primary team/Pulmonary V/Q scan is suggested. Consider Neurology Evaluation Echocardiogram revealed no WMA and also revealed good EF. It also revealed increased Pulmonary Artery Pressure in favor of component of Pulmonary Hypertension. Hematology follow up (to comment on prophylaxis / treatment of Pulmonary Emboli) Neurology evaluation Surgical follow up Nephrology and Hematology follow up Secondary to active bleeding, we will avoid anticoagulation/antiplatelets for now Long-term prognosis depends on the above and most importantly regaining of the higher brain function Ischemic workup may be considered only after regaining higher brain function or any special change in clinical presentation Further evaluation and management depends on the above and clinical course A total of 75 minutes was spent reviewing the patient record, examining the patient, making a diagnostic and therapeutic plan, discussing this plan with medical personnel, following up on diagnostic studies and following the patient for clinical stability excluding any and all procedures. At least 50% of this time was spent in direct, [id number] contact. Thank you for allowing me to participate in this patient's care. Further recommendations will depend on patient's clinical course. Please do not hesitate to contact me if you have any questions or concerns. This medical document was created using electronic medical record system with [employer] computerized dictation system. Although this document has been carefully reviewed, there may still be some phonetic and typographical errors. These areas are purely typographical due to the imperfection of the software programs, and do not reflect any compromise in the patient's medical care. Plan discussed with: Other (nurse, Mother: at bedside) KATHLEEN COHEN MD Jan 30, 2025 09:00
--- NOTE | 2025-01-30 09:35 | DVHINCON2 ---
Date of service: Jan 30, [address] Baltazar Fried Reason for Consultation CPR, R/O MARGARETTE History of Present Illness Mr. Gillis is a 24 years old gentleman with a history of asthma, gallstone, obesity, the patient was brought to the [facility] on 01/29/2025 with a chief complaint of witnessed cardiopulmonary arrest. At this time, the patient is nonresponsive to strong painful stimuli. The history obtained from his mother He had endoscopic gallstone surgery in the [facility] on 01/28/2025, and the patient was discharged home the same day. At home, the patient was sleepy, he ate a little bit beginning, but later he developed nausea, vomiting, and he sleepiness was worse. Around 830 a.m. on 01/29/2025, the family noticed cardiopulmonary arrest (restless, pulseless) and CPR started by the family, EMS came over in about 5 minutes, but the patient is not resuscitated till 1 hour later In the hospital, the patient is found to have hepatic hematoma, and he was not through exploratory laparoscopy He received 3 units RBC, 2 units of FFP He is on pressor drips for unstable vitals UDS, 01/29/2025 1616: Fentanyl, benzo Urinalysis, 01/29/2025: WBC: 1, urine leukocyte esterase: Negative ABG, 01/29/2025: Metabolic acidosis, 01/30/25: Metabolic acidosis WBC/HB/PLT/MCV, 01/29/2025: 20.1/8.3/234/107.4. 01/30/2025: 28.4/12.1/127/91.2 PT/INR/PTT, 01/29/2025: 19.6/1.98/53.8. 01/30/2025: 13.6/1.32/28.7 Na 01/29/2025: 146, 152, 01/30/2025: 147 BUN/CR, 01/30/2025: 29/4.34 Lactic acid, 01/29/2025: 1749, 01/30/2025: 11.4 Troponin one high sensitivity, 01/29/2025: 2273, 4364, 7474 TBI/AST/ALT/AP, 01/29/2025: 1.3/676/700/136. 9/: 2.10/4635/2521/137 CT head, 01/29/2025:No evidence of acute intracranial abnormality (I see signs suggestive of diffuse brain edema) CT abdomen, pelvis, 01/29/2025: 1. Hepatic hematoma measuring up to approximately 8.6 cm in greatest dimension, as described above, with hemorrhage extending beyond the liver capsule and into the right pericolic gutter as well as into the pelvis. No definite active arterial bleeding is seen on this exam, although limited evaluation due to the timing of contrast, as this was not a CTA exam. 2. Postsurgical changes of cholecystectomy. 3. Dilated fluid-filled small bowel loops, may be due to postoperative ileus. No small bowel obstruction. 4. Small volume pneumoperitoneum, likely due to recent surgery. Small volume of gas are seen in the upper ventral abdomen from the recent surgery. 5. Dependent atelectasis in the lower lobes. Otherwise, no acute disease in the chest. 6. Endotracheal tube and enteric tube in place. 7. Atrophic right kidney incidentally noted. 8. Additional findings as described above. Past Medical History Asthma, gallstone, obesity Past Surgical History Laparoscopy-gallstones reasonably in the [facility], laparotomy in [facility] Family History No major medical problems Social History He smokes marijuana, but no history of tobacco smoke, drug or alcohol abuse Allergies: Coded Allergies: NO KNOWN ALLERGIES (Unverified , 01/21/14) Current Medications Current Medications Medications (Trade) Dose Ordered Sig/Serenity Route PRN Reason Start Time Stop Time Status Last Admin Midazolam HCl 50 ml @ 1 mls/hr Q24H IV 01/29/25 10:00 01/29/25 14:28 DC 01/29/25 10:00 Norepinephrine Bitartrate 250 ml @ 3.75 mls/hr Q24H IV 01/29/25 10:00 01/30/25 06:00 Midazolam HCl 50 ml @ 1 mls/hr Q24H IV 01/29/25 14:15 01/29/25 15:56 Fentanyl Citrate 250 ml @ 2.5 mls/hr Q24H IV 01/29/25 14:15 Piperacillin Sod/ Tazobactam Sod 50 ml @ 50 mls/hr Q12HR IV 01/29/25 22:00 01/29/25 15:01 DC Vasopressin 20 units/Sodium Chloride 100 ml @ 9 mls/hr Q11H7M IV 01/29/25 15:00 01/29/25 20:29 DC 01/29/25 15:39 Piperacillin Sod/ Tazobactam Sod 100 ml @ 25 mls/hr Q12HR IV 01/29/25 22:00 01/29/25 23:11 Pantoprazole Sodium (Protonix) 40 mg DAILY IV 01/30/25 10:00 Dextrose/Sodium Chloride 1,000 ml @ 100 mls/hr Q10H IV 01/29/25 16:30 01/30/25 06:30 Bumetanide (Bumex Injection) 2.5 mg BIDD IV 01/29/25 18:00 Phenylephrine HCl 250 ml @ 30 mls/hr Q8H20M IV 01/29/25 19:30 01/30/25 06:05 Levalbuterol HCl (Xopenex Medneb) 0.625 mg Q4HR PRN NEB SHORTNESS OF BREATH 01/29/25 20:00 01/30/25 00:08 Ipratropium [place] (Atrovent Medneb) 0.5 mg Q4HPRN PRN NEB SHORTNESS OF BREATH 01/29/25 20:00 01/30/25 00:08 Sodium Bicarbonate 100 ml/Dextrose 1,100 ml @ 100 mls/hr Q11H IV 01/29/25 20:00 01/29/25 21:30 Vasopressin 40 units/Dextrose 200 ml @ 60 mls/hr Q3H20M IV 01/29/25 20:30 01/29/25 20:43 DC Vasopressin 100 units/Dextrose 500 ml @ 60 mls/hr Q8H20M IV 01/29/25 20:45 01/29/25 21:10 DC Vasopressin 100 units/Dextrose 500 ml @ 60 mls/hr Q8H20M IV 01/29/25 21:15 01/30/25 07:52 DC 01/30/25 05:15 Epinephrine HCl 250 ml @ 7.5 mls/hr Q24H IV 01/30/25 00:15 Vasopressin 20 units/Sodium Chloride 100 ml @ 9 mls/hr Q11H7M IV 01/30/25 07:30 Review of Systems As above, the other systems are negative Vital Signs Vital Signs Date Time Temp Pulse Resp B/P (MAP) Pulse Ox O2 Delivery O2 Flow Rate FiO2 01/30/25 08:09 128 26 142/107 (119) 98 55 01/30/25 06:00 96.8 96.8 01/30/25 06:00 Mechanical Ventilator+ Physical Exam The patient is well-nourished and well-developed with no distress, he has jaundice. The patient is intubated HEENT: Normocephalic, neck supple, no carotid bruits Lungs: Clear to auscultation Cardiovascular: Regular rate and region, S1, S2, no murmurs Abdomen: Soft, nontender, normal bowel sounds MENTAL STATUS: Not responsive to the surroundings, CRANIAL NERVES: Pupils are equal, round, a and fixed. There are no corneal reflexes, he has questionable doll's eyes phenomenon. No signs of facial weakness. There are no gagging or coughing reflexes SENSATION: No responses to pain stimuli. MOTOR: Normal tone in the upper and lower extremity. Normal muscle bulk. No fasciculations. No spontaneous movement. REFLEXES: Deep tendon reflexes are symmetrical. No pathological reflexes. CEREBELLAR/COORDINATION: Deferred GAIT/STATION: deferred. Labs/Diagnostic Data Labs Test 01/30/25 07:37 01/30/25 07:12 01/30/25 00:23 01/29/25 21:45 Range/Units White Blood Count 28.4 #H 4.4-10.8 10^3/uL Red Blood Count 3.92 L 4.5-5.90 10^6/uL Hemoglobin 12.1 L 13.5-17.5 g/dL Hematocrit 35.7 L 41.0-53.0 % Mean Corpuscular Volume 91.2 80.0-100.0 fL Mean Corpuscular Hemoglobin 30.8 28.0-32.0 pg Mean Corpuscular Hemoglobin Concent 33.7 32.0-36.0 g/dL Red Cell Distribution Width 15.4 H 11.8-14.3 % Platelet Count 127 L 140-450 10^3/uL Mean Platelet Volume 10.2 6.9-10.8 fL Neutrophils (%) (Auto) 93.1 H 37.0-80.0 % Lymphocytes (%) (Auto) 3.1 L 10.0-50.0 % Monocytes (%) (Auto) 3.6 0.0-12.0 % Eosinophils (%) (Auto) 0.1 0.0-7.0 % Basophils (%) (Auto) 0.1 0.0-2.0 % Neutrophils # (Auto) 26.5 H 1.6-8.6 10 ^3/uL Lymphocytes # (Auto) 0.9 0.4-5.4 10 ^3/uL Monocytes # (Auto) 1.0 0-1.3 10 ^3/uL Eosinophils # (Auto) 0 0-0.8 10 ^3/uL Basophils # (Auto) 0 0-0.2 10 ^3/uL Nucleated Red Blood Cells 0.2 % Prothrombin Time 13.6 H 9.3-11.8 sec Prothrombin Time INR 1.32 H 0.9-1.15 Activated Partial Thromboplast Time 28.7 24.5-34.5 SEC Sodium Level 146 H 136-145 mmol/L Potassium Level 2.9 L 3.5-5.1 mmol/L Chloride Level 108 H 98-107 mmol/L Carbon Dioxide Level 14 L 20-31 mmol/L Anion Gap 24 H 5-15 Blood Urea Nitrogen 29 H 9-23 mg/dL Creatinine 4.34 H 0.700-1.30 mg/dL Glomerular Filtration Rate Calc 18 >90 mL/min BUN/Creatinine Ratio 6.7 L 10.0-20.0 Serum Glucose 279 H 74-106 mg/dL Lactic Acid Level 11.4 *H 0.4-2.0 mmol/L Calcium Level 6.7 L 8.7-10.4 mg/dL Total Bilirubin 2.6 H 0.2-1.0 mg/dL Aspartate Amino Transferase (AST) 4636 H 13-40 U/L Alanine Aminotransferase (ALT) 2521 H 7-40 U/L Alkaline Phosphatase 137 H 46-116 U/L Total Protein 4.3 L 5.7-8.2 g/dL Albumin 2.5 L 3.2-4.8 g/dL Blood Gas Specimen Type Arterial Blood Gas Sample Site Arterial line Blood Gas Patient Temperature 37.0 Arterial Blood Date Drawn [id number] Arterial Blood pH 7.274 L 7.350-7.450 Arterial Blood Partial Pressure CO2 26.0 L 35.0-48.0 mmHg Arterial Blood Partial Pressure O2 92.6 83.0-108.0 mmHg Arterial Blood HCO3 11.8 L 21.0-28.0 mmol/L Arterial Blood Oxygen Saturation 96.1 94.0-98.0 % Arterial Blood Base Excess -13.5 L -2.0-3.0 mmol/L Arterial Blood Oxyhemoglobin 95.7 94.0-98.0 % Arterial Blood Carboxyhemoglobin 0.1 L 0.5-1.5 % Arterial Blood Methemoglobin 0.3 0.0-1.5 % Markus Test N/a Blood Gas Total Hemoglobin 11.80 L 13.5-17.5 g/dL Blood Gas Set Respiration Rate 26.0 Blood Gas Modality Vent - ac FiO2 % 55.0 Blood Gas Tidal Volume 550.0 Blood Gas PEEP or CPAP 5.0 Differential Total Cells Counted 100.0 100 Neutrophils % (Manual) 65 37.0-80.0 Band Neutrophils % (Manual) 20 Lymphocytes % (Manual) 10 10.0-50.0 Monocytes % (Manual) 2 0-12 Eosinophils % (Manual) 0 0-7 Basophils % (Manual) 0 0.0-2.0 Metamyelocytes % (manual) 2 Myelocytes % (Manual) 1 Promyelocytes % (Manual) 0 Blast Cells % (Manual) 0 Reactive Lymphocytes 0 Platelet Estimate Adequate Large Platelets Few Specimen Drawn By Postal Clerk aileen jhaveri Blood Gas Critical Value Read Back Yes Blood Gas Notified Whom peterson Levine Blood Gas Notified Time [id number] Blood Gas Notified By Postal Clerk aileen jhaveri Test 01/29/25 20:43 01/29/25 19:50 01/29/25 16:16 01/29/25 14:30 Range/Units Troponin I High Sensitivity 7474 *H </=54 ng/L Vitamin D 25-Hydroxy 16.0 L 30.0-100 ng/mL Phosphorus Level 10.8 H 2.4-5.1 mg/dL Magnesium Level 1.9 1.6-2.6 mg/dL Urine Opiates Screen Neg NEGATIVE Urine Fentanyl Screen Pos NEGATIVE Urine Barbiturates Screen Neg NEGATIVE Urine Phencyclidine Screen Neg NEGATIVE Urine Amphetamines Screen Neg NEGATIVE Urine Benzodiazepines Screen Pos NEGATIVE Urine Cocaine Screen Neg NEGATIVE Urine Cannabinoids Screen Neg NEGATIVE Anisocytosis (manual) Slight Fibrinogen 108 L 177-375 mg/dL Thyroid Stimulating Hormone (TSH) 11.05 H 0.55-4.78 uIU/mL Test 01/29/25 14:15 01/29/25 09:54 Range/Units Urine Creatinine 19.64 L 30.0-125.0 mg/dL Urine Sodium 98 40-220 mmol/L Urine Total Protein 245.5 H 1-14 mg/dL Urine Color Light-orange Yellow Urine Clarity Turbid H Clear Urine pH 5.5 5.0-9.0 Urine Specific [place] 1.017 1.001-1.035 Urine Protein 2+ H Negative Urine Ketones Trace Negative Urine Blood 3+ H Negative /uL Urine Nitrite Negative Negative Urine Bilirubin Negative Negative Urine Urobilinogen Normal Negative mg/dL Urine Leukocyte Esterase Negative Negative /uL Urine RBC 130 0 - 3 /hpf Urine Microscopic WBC < 1 0-3 /HPF Urine Squamous Epithelial Cells Mod <5 /hpf Urine Amorphous Crystals Few None Seen /hpf Urine Bacteria Few H None Seen /hpf Urine Glucose Trace Normal mg/dL Assessment Cardiopulmonary arrest Status post CPR Coma Hypoxic encephalopathy Metabolic encephalopathy Diffuse brain edema Brain herniation Hepatic hematoma Sepsis Septic shock Hypovolemic shock Liver failure Acute kidney failure Anemia Plan/Recommendation Monitoring Supportive treatment Follow-up labs ICU care Respiratory support/vent management Stabilize vitals/pressor drip Oxygen IV antibiotics GI prophylaxis Surgery on case Hematology evaluation Cardiology evaluation Nephrology evaluation More recommendation per clinical course Prognosis: Guarded I have spent time discussing with his mother and brother about his poor prognosis Critical care time spent is 50 minutes This medical document was created using an electronic medical record system with [employer] dictation system. Although this document has been carefully reviewed, there may still be some phonetic and typographical errors. These area s are purely typographical due to imperfections of the software programs, and do not reflect any compromise in the patient's medical care. More recommendation per clinical course Plan discussed with: Other ALONZO MILLARD MD Jan 30, 2025 09:35
--- NOTE | 2025-01-30 09:54 | DVH ---
CT HEAD WITHOUT CONTRAST INDICATION: Unresposiveness. EXAM DATE: 01/30/2025 08:59 AM COMPARISON: CT NECK WITHOUT CONTRAST on DOS: 01/30/25, CT HEAD WITHOUT CONTRAST on DOS: 01/29/25 RADIATION DOSE: CTDIvol: 63 mGy, DLP: 1020 mGy*cm PROCEDURE: CT scans of the head were obtained from the vertex to the skull base. Sagittal and coronal reconstructions were provided. All CT scans at this medical facility are performed using dose modulation techniques as appropriate t o a performed exam including the following: Automated exposure control was utilized; adjustment of th e MA and/or KV according to patient size; and use of iterative reconstruction technique. FINDINGS: Cerebellar tonsilar herniation. There is sulcal and ventricular effacement. The basal cis terns are effaced. Loss of mario-white matter differentiation is noted. The skull and visible facial b ones are intact. The paranasal sinuses, mastoid air cells and middle ear cavities are well-aerated. T he soft tissues of the scalp are unremarkable. IMPRESSION: Diffuse cerebral edema with cerebellar tonsillar herniation. Recommend MRI brain for further evaluati on. Critical Result: above finding Findings discussed with dr. crenshaw at 01/30/2025 09:51 AM and acknowledged receipt and understanding o f the findings.
[2025-01-30] MEDS: PANTOPRAZOLE 40 MG/10 ML VIAL INJ IV SCH (10:28)
[2025-01-30] MEDS: POTASSIUM CHL 20MEQ/100ML 100 ML IV SCH ×2 (10:29→21:22)
--- NOTE | 2025-01-30 11:38 | DVH ---
INDICATION: Mechanical Ventilation TECHNIQUE: Single frontal view of the chest was obtained COMPARISON: XY CHEST PORTABLE on DOS: 01/29/25, CT CT CHEST/AB/PL W CON- IV ONLY on DOS: 01/29/25, XY C HEST PORTABLE on DOS: 01/29/25, XY CHEST PORTABLE on DOS: 01/29/25 FINDINGS: Lines and Tubes: Endotracheal tube, enteric catheter and right central venous catheter in satisfactor y position. Lungs: Congestion Pleura: No effusion. No pneumothorax. Cardiomediastinal contours: Cardiomegaly Bones: Unremarkable IMPRESSION: Lines and tubes in satisfactory position. Mild increased pulmonary vascular congestion
--- NOTE | 2025-01-30 11:44 | DVHINCON2 ---
Date of service: Jan 29, [address] Ledesma History of Present Illness This is a 24-year-old male without any significant past medical history, who underwent an elective outpatient laparoscopic cholecystectomy yesterday at [facility] for right upper quadrant pain and cholelithiasis. Postoperative period was uneventful and the patient was discharged around 1:00 p.m. in the afternoon. To the mother the patient was very lethargic but was able to eat p.o. intake. She noticed around 2:00 a.m. in the morning that her son was progressively very lethargic and 8 3:00 a.m. approximately in the morning patient became unresponsive. Mother perform CPR in the field until the EMS arrived and they brought the patient to the [facility] ER for further evaluation. In the ED CT abdomen pelvis without contrast revealed a hepatic hematoma measuring 8.6 cm with hemorrhage extending beyond the liver capsule into the right paracolic gutter as well as the pelvis. The patient was emergently taken back to the surgery by Dr. Ledesma at 4:30 p.m. in the afternoon. There was an evacuation of a large hemoperitoneum and subsequently admitted to ICU. Patient was seen and examined in the recovery room. He is on mechanical ventilation with FiO2 50%, tidal volume 550 mL, peep 5. Currently the patient is on maximum dose of Levophed, vasopressin and phenylephrine. ABG showed severe metabolic acidosis, increase the respiratory rate to 24 and started bicarb drip. Past Medical History Cholelithiasis Past Surgical History Laparoscopic cholecystectomy Family History Unknown Social History Lives with family Nonsmoker, nonalcoholic and smoke marijuana Allergies: Coded Allergies: NO KNOWN ALLERGIES (Unverified , 01/21/14) Current Medications Current Medications Medications (Trade) Dose Ordered Sig/Serenity Route PRN Reason Start Time Stop Time Status Last Admin Midazolam HCl 50 ml @ 1 mls/hr Q24H IV 01/29/25 14:15 01/29/25 15:56 Fentanyl Citrate 250 ml @ 2.5 mls/hr Q24H IV 01/29/25 14:15 Piperacillin Sod/ Tazobactam Sod 50 ml @ 50 mls/hr Q12HR IV 01/29/25 22:00 01/29/25 15:01 DC Vasopressin 20 units/Sodium Chloride 100 ml @ 9 mls/hr Q11H7M IV 01/29/25 15:00 01/29/25 20:29 DC 01/29/25 15:39 Piperacillin Sod/ Tazobactam Sod 100 ml @ 25 mls/hr Q12HR IV 01/29/25 22:00 01/30/25 10:29 Pantoprazole Sodium (Protonix) 40 mg DAILY IV 01/30/25 10:00 01/30/25 10:28 Dextrose/Sodium Chloride 1,000 ml @ 100 mls/hr Q10H IV 01/29/25 16:30 01/30/25 06:30 Bumetanide (Bumex Injection) 2.5 mg BIDD IV 01/29/25 18:00 Phenylephrine HCl 250 ml @ 30 mls/hr Q8H20M IV 01/29/25 19:30 01/30/25 06:05 Levalbuterol HCl (Xopenex Medneb) 0.625 mg Q4HR PRN NEB SHORTNESS OF BREATH 01/29/25 20:00 01/30/25 00:08 Ipratropium [place] (Atrovent Medneb) 0.5 mg Q4HPRN PRN NEB SHORTNESS OF BREATH 01/29/25 20:00 01/30/25 00:08 Sodium Bicarbonate 100 ml/Dextrose 1,100 ml @ 100 mls/hr Q11H IV 01/29/25 20:00 01/29/25 21:30 Vasopressin 40 units/Dextrose 200 ml @ 60 mls/hr Q3H20M IV 01/29/25 20:30 01/29/25 20:43 DC Vasopressin 100 units/Dextrose 500 ml @ 60 mls/hr Q8H20M IV 01/29/25 20:45 01/29/25 21:10 DC Vasopressin 100 units/Dextrose 500 ml @ 60 mls/hr Q8H20M IV 01/29/25 21:15 01/30/25 07:52 DC 01/30/25 05:15 Epinephrine HCl 250 ml @ 7.5 mls/hr Q24H IV 01/30/25 00:15 Vasopressin 20 units/Sodium Chloride 100 ml @ 9 mls/hr Q11H7M IV 01/30/25 07:30 Potassium Chloride 100 ml @ 50 mls/hr Q2H IV 01/30/25 09:30 01/30/25 13:29 01/30/25 10:29 Review of Systems Could not be assessed as patient is intubated and on ventilator Vital Signs Vital Signs Date Time Temp Pulse Resp B/P (MAP) Pulse Ox O2 Delivery O2 Flow Rate FiO2 01/30/25 09:43 127 26 140/103 (115) 97 55 01/30/25 06:00 96.8 96.8 01/30/25 06:00 Mechanical Ventilator+ Physical Exam Exam General: RASS -3, afebrile, mucosae are moist Cardiovascular: Normal S1 and S2. No murmurs, gallops or rubs Respiratory: Mechanically assisted ventilation, equal bilateral airway entree. Clear lung sounds on auscultation Abdomen: Soft, nontender, no organomegaly, normal bowel sounds MSK/skin: Mobilization of limbs cannot be evaluated. Skin is dry and warm. Neurological: Orientation cannot be assessed. No apparent motor no sensitive deficits. Absent gag reflex, Pupils are dilated and nonreactive Labs/Diagnostic Data Labs Test 01/30/25 07:37 01/30/25 07:12 01/30/25 00:23 01/29/25 21:45 Range/Units White Blood Count 28.4 #H 4.4-10.8 10^3/uL Red Blood Count 3.92 L 4.5-5.90 10^6/uL Hemoglobin 12.1 L 13.5-17.5 g/dL Hematocrit 35.7 L 41.0-53.0 % Mean Corpuscular Volume 91.2 80.0-100.0 fL Mean Corpuscular Hemoglobin 30.8 28.0-32.0 pg Mean Corpuscular Hemoglobin Concent 33.7 32.0-36.0 g/dL Red Cell Distribution Width 15.4 H 11.8-14.3 % Platelet Count 127 L 140-450 10^3/uL Mean Platelet Volume 10.2 6.9-10.8 fL Neutrophils (%) (Auto) 93.1 H 37.0-80.0 % Lymphocytes (%) (Auto) 3.1 L 10.0-50.0 % Monocytes (%) (Auto) 3.6 0.0-12.0 % Eosinophils (%) (Auto) 0.1 0.0-7.0 % Basophils (%) (Auto) 0.1 0.0-2.0 % Neutrophils # (Auto) 26.5 H 1.6-8.6 10 ^3/uL Lymphocytes # (Auto) 0.9 0.4-5.4 10 ^3/uL Monocytes # (Auto) 1.0 0-1.3 10 ^3/uL Eosinophils # (Auto) 0 0-0.8 10 ^3/uL Basophils # (Auto) 0 0-0.2 10 ^3/uL Nucleated Red Blood Cells 0.2 % Prothrombin Time 13.6 H 9.3-11.8 sec Prothrombin Time INR 1.32 H 0.9-1.15 Activated Partial Thromboplast Time 28.7 24.5-34.5 SEC Sodium Level 146 H 136-145 mmol/L Potassium Level 2.9 L 3.5-5.1 mmol/L Chloride Level 108 H 98-107 mmol/L Carbon Dioxide Level 14 L 20-31 mmol/L Anion Gap 24 H 5-15 Blood Urea Nitrogen 29 H 9-23 mg/dL Creatinine 4.34 H 0.700-1.30 mg/dL Glomerular Filtration Rate Calc 18 >90 mL/min BUN/Creatinine Ratio 6.7 L 10.0-20.0 Serum Glucose 279 H 74-106 mg/dL Lactic Acid Level 11.4 *H 0.4-2.0 mmol/L Calcium Level 6.7 L 8.7-10.4 mg/dL Total Bilirubin 2.6 H 0.2-1.0 mg/dL Aspartate Amino Transferase (AST) 4636 H 13-40 U/L Alanine Aminotransferase (ALT) 2521 H 7-40 U/L Alkaline Phosphatase 137 H 46-116 U/L Total Protein 4.3 L 5.7-8.2 g/dL Albumin 2.5 L 3.2-4.8 g/dL Blood Gas Specimen Type Arterial Blood Gas Sample Site Arterial line Blood Gas Patient Temperature 37.0 Arterial Blood Date Drawn [id number] Arterial Blood pH 7.274 L 7.350-7.450 Arterial Blood Partial Pressure CO2 26.0 L 35.0-48.0 mmHg Arterial Blood Partial Pressure O2 92.6 83.0-108.0 mmHg Arterial Blood HCO3 11.8 L 21.0-28.0 mmol/L Arterial Blood Oxygen Saturation 96.1 94.0-98.0 % Arterial Blood Base Excess -13.5 L -2.0-3.0 mmol/L Arterial Blood Oxyhemoglobin 95.7 94.0-98.0 % Arterial Blood Carboxyhemoglobin 0.1 L 0.5-1.5 % Arterial Blood Methemoglobin 0.3 0.0-1.5 % Markus Test N/a Blood Gas Total Hemoglobin 11.80 L 13.5-17.5 g/dL Blood Gas Set Respiration Rate 26.0 Blood Gas Modality Vent - ac FiO2 % 55.0 Blood Gas Tidal Volume 550.0 Blood Gas PEEP or CPAP 5.0 Differential Total Cells Counted 100.0 100 Neutrophils % (Manual) 65 37.0-80.0 Band Neutrophils % (Manual) 20 Lymphocytes % (Manual) 10 10.0-50.0 Monocytes % (Manual) 2 0-12 Eosinophils % (Manual) 0 0-7 Basophils % (Manual) 0 0.0-2.0 Metamyelocytes % (manual) 2 Myelocytes % (Manual) 1 Promyelocytes % (Manual) 0 Blast Cells % (Manual) 0 Reactive Lymphocytes 0 Platelet Estimate Adequate Large Platelets Few Specimen Drawn By Social Secretary aileen jhaveri Blood Gas Critical Value Read Back Yes Blood Gas Notified Whom peterson Levine Blood Gas Notified Time [id number] Blood Gas Notified By Social Secretary aileen jhaveir Test 01/29/25 20:43 01/29/25 19:50 01/29/25 16:16 01/29/25 14:30 Range/Units Troponin I High Sensitivity 7474 *H </=54 ng/L Vitamin D 25-Hydroxy 16.0 L 30.0-100 ng/mL Phosphorus Level 10.8 H 2.4-5.1 mg/dL Magnesium Level 1.9 1.6-2.6 mg/dL Urine Opiates Screen Neg NEGATIVE Urine Fentanyl Screen Pos NEGATIVE Urine Barbiturates Screen Neg NEGATIVE Urine Phencyclidine Screen Neg NEGATIVE Urine Amphetamines Screen Neg NEGATIVE Urine Benzodiazepines Screen Pos NEGATIVE Urine Cocaine Screen Neg NEGATIVE Urine Cannabinoids Screen Neg NEGATIVE Anisocytosis (manual) Slight Fibrinogen 108 L 177-375 mg/dL Thyroid Stimulating Hormone (TSH) 11.05 H 0.55-4.78 uIU/mL Test 01/29/25 14:15 01/29/25 09:54 Range/Units Urine Creatinine 19.64 L 30.0-125.0 mg/dL Urine Sodium 98 40-220 mmol/L Urine Total Protein 245.5 H 1-14 mg/dL Urine Color Light-orange Yellow Urine Clarity Turbid H Clear Urine pH 5.5 5.0-9.0 Urine Specific [place] 1.017 1.001-1.035 Urine Protein 2+ H Negative Urine Ketones Trace Negative Urine Blood 3+ H Negative /uL Urine Nitrite Negative Negative Urine Bilirubin Negative Negative Urine Urobilinogen Normal Negative mg/dL Urine Leukocyte Esterase Negative Negative /uL Urine RBC 130 0 - 3 /hpf Urine Microscopic WBC < 1 0-3 /HPF Urine Squamous Epithelial Cells Mod <5 /hpf Urine Amorphous Crystals Few None Seen /hpf Urine Bacteria Few H None Seen /hpf Urine Glucose Trace Normal mg/dL Microbiology Date/Time Source Procedure Growth Status 01/29/25 10:49 Blood Blood Culture - Preliminary NO GROWTH AFTER 24 HOURS OF INCUBATION. Resulted Assessment Assessment and plan: NEURO: Status post cardiac arrest On mechanical ventilation Possible anoxic brain injury RASS score: -3 CT head without contrast demonstrated no evidence of acute intracranial abnormality. CARDIOVASCULAR: NSTEMI possible type 2 Hypovolemic shock - cardiology on board - Due to recent active bleeding patient is not a suitable candidate for antiplatelet/anticoagulant and has multiorgan failure and coronary angiogram is not possible right now - Pending echo - EKG revealed sinus tachycardia - troponin trends were [id number] PULMONARY: Acute hypoxic respiratory failure on mechanical ventilation - Cxr showed bilateral mild pulmonary vascular congestion GASTROINTESTINAL: Acute transaminitis secondary to hypovolemic shock Coagulopathy Hypoalbuminemia Status post laparoscopic cholecystectomy Status post exploratory laparotomy for hemoperitoneum - CT abdomen pelvis without contrast demonstrated Hepatic hematoma measuring up to approximately 8.6 cm in greatest dimension, as described above, with hemorrhage extending beyond the liver capsule and into the right pericolic gutter as well as into the pelvis. Postsurgical changes of cholecystectomy.Dilated fluid-filled small bowel loops, may be due to postoperative ileus. No small bowel obstruction. Small volume pneumoperitoneum, likely due to recent surgery. Small volume of gas are seen in the upper ventral abdomen from the recent surgery. - Received 3 units of PRBC, 2 units of FFP and 1 unit of cryoprecipitate - GI on board GENITOURINARY: HARLEEN secondary to hypovolemic shock - Nephrology on board - IV Bumex 2.5 mg b.i.d. - Renal ultrasound showed atrophic right kidney, enlarged left kidney and no evidence of hydronephrosis. - continue vasopressor - strict I&O METABOLIC: Severe anion gap metabolic acidosis due to lactic acidosis Hypernatremia Grade 2 obesity, BMI 35.7 kg per m2 Hypoglycemia HEME: Acute blood loss anemia - Received 3 units of PRBC, 2 units of FFP and 1 unit of cryoprecipitate - Monitor H&H INFECTIOUS DISEASE: Leucocytosis Lactic acidosis - cultures are pending - IV Zosyn 3.375 g Q 8 hours DIET: NPO DVT prophylax: Hold GI prophylaxis: Protonix Bowel regimen: Code status: Full code LINES/DRAINS/ACCESS: ETT: Intubated on 01/29/25 IV access: Lt IJ placed on 01/29/25 Drips: Levophed, vasopressin, phenylephrine, Versed, fentanyl, bicarb drip Grene catheter: Placed on DISPOSITION: ICU Patient's status discussed with Rishabh personal carer time spent more than 83 minutes, including patient care, chart review, and updating the family. Excluding any procedures. Case discussed with Dr. Juan Plan discussed with: Other (rishabh, RN) BLANQUITA DAVILA RESIDENT Jan 30, 2025 11:44
--- NOTE | 2025-01-30 11:54 | DVH ---
Indication: RECENT XLAP Technique: CT axial images of the chest, abdomen and pelvis are obtained without contrast. Coronal an d sagittal reformats were obtained. Radiation Dose Information: CTDI volume is 27.82 mGy. Dose-length product is 4.61 mGy*cm Comparison: 01/29/2025 FINDINGS: There is limited interpretation of the chest, abdomen and pelvis without administration of intravenou s contrast. Endotracheal tube tip terminates just at the meghan / left main bronchus. Diffuse bilateral pulmonary airspace consolidation bilaterally significantly increased. Bilateral lo wer lobe lobar consolidation/ atelectasis, increased from prior. Small bilateral pleural effusions. There is extensive edema/ stranding within the upper anterior chest, neck region/supraclavicular dee on. There is some hyperdensity within this region which could represent components of hematoma / blo od products. Heterogeneous appearance of the thyroid gland. Right IJ catheter terminating at the cavoatrial junct ion. Adrenal glands unremarkable in shape. Perisplenic hematoma. Interval postsurgical changes in the right upper quadrant of the abdomen. There appears to be surgice l/gaseous collection within the previous hematoma cavity, likely representing surgicel. There is a r adiopaque density within the resection cavity as well which measures 6.2 x 4.6 cm.. Postoperative ch anges of the right anterior abdomen with soft tissue emphysema. Small amount of pneumoperitoneum Surgical drainage catheter terminating in the right upper quadrant of the abdomen Right renal parenchymal atrophy. Left kidney demonstrates perinephric edema / stranding. No left hydronephrosis. Nasogastric tube projects towards the distal stomach. Moderate distention small bowel loops. Rectal catheter. Moderate distention of the large bowel loops. Normal appendix. Abdominal aorta normal in caliber. Small amount of ascites fluid/ mesenteric edema. Bladder decompressed by Green catheter. Soft tissue edema /anasarca. Mesenteric edema. Small amount of ascites fluid. The osseous structures are stable. IMPRESSION: Limited evaluation without contrast. Interval evacuation of the right upper quadrant hematoma. Surgicel within the resection cavity. No si gnificant interval development of new hematoma. There are 2 radiopaque lap pads within the resection cavity . Findings reviewed with Dr. Ledesma at 1 1:51 a.m. on 01/30/2025 Perisplenic hematoma, similar to previous examination. Extensive bilateral pulmonary airspace consolidation, significantly increased from previous examinati on. Small bilateral pleural effusions. Right upper quadrant drainage catheter. Pneumoperitoneum. Soft tissue edema / anasarca. Small amount of ascites fluid/ mesenteric edema. Extensive edema within the anterior chest, neck region. Heterogeneous appearance thyroid gland. Other findings as described.
--- NOTE | 2025-01-30 11:58 | DVH ---
Indication: SUDDEN NECK SWELLING Technique: CT axial images of the neck are obtained without contrast. Coronal and sagittal reformats were obtained. Radiation Dose Information: CTDI volume is 29 mGy. Dose-length product is 740 mGy*cm Comparison: None FINDINGS: There is limited interpretation of the neck without administration of intravenous contrast. Parotid, histologic technician and parapharyngeal spaces preserved. Right IJ catheter. Endotracheal, orogastric tubes which limits evaluation of the nasopharynx, oropharynx, prevertebral t issues. Extensive soft tissue edema diffusely involving the neck extending into the upper anterior ch est and mediastinum. Opacification of the nasal cavity. Mucosal thickening maxillary sinuses. Retrop haryngeal edema Heterogeneous appearance of the thyroid gland Diffuse edema within the supraclavicular tissues. Bilateral pulmonary airspace consolidation and small bilateral pleural effusions. No acute osseous abnormality. Inferior cerebellar tonsil herniation better seen on the prior CT. IMPRESSION: Limited evaluation without contrast. Extensive soft tissue edema within the neck extending into the anterior / upper chest and anterior me diastinum . Retropharyngeal edema. Heterogeneous appearance of the thyroid gland. Inferior cerebellar tonsillar herniation better seen on the prior CT
[2025-01-30] MEDS ORDERED: BUMETANIDE INJECTION 12.5 MG in GIVE UN-DILUTED 0 ML IV SCH (14:30)
--- NOTE | 2025-01-30 15:52 | DVHPN2 ---
Progress Note Date Seen: Jan 30, 2025 Has the PT tested + for MRSA If YES, has PT been informed?: No Medical Necessity Reason Pt with a Central, PICC or Fol: Yes The following are medically ne: Central Line, Mora Catheter Reason for mora catheter: Nakul. Abd Surgery Subjective Review of Systems: RESPIRATORY:Abnormal Other Systems: Patient seen and examined by myself today in follow-up, patient remained intubated on ventilator Objective vital signs Vital Sign Date Time Temp Pulse Resp B/P (MAP) Pulse Ox O2 Delivery O2 Flow Rate FiO2 01/30/25 14:30 97.7 129 25 94/67 (76) 99 97.7 01/30/25 14:19 55 01/30/25 14:00 Mechanical Ventilator+ Total Intake and Output 01/29/25 01/29/25 01/30/25 14:59 22:59 06:59 Intake Total 360 ml 2932.50 ml 1577.50 ml Output Total 0 ml 180 ml 1030 ml Balance 360 ml 2752.50 ml 547.50 ml medications Current Medications Medications Dose Ordered Sig/Serenity Route Start Time Stop Time Status Last Admin Dose Admin Norepinephrine Bitartrate 250 ml @ 3.75 mls/hr Q24H IV 01/29/25 10:00 01/30/25 06:00 56.25 MLS/HR Midazolam HCl 50 ml @ 1 mls/hr Q24H IV 01/29/25 14:15 01/29/25 15:56 5 MLS/HR Fentanyl Citrate 250 ml @ 2.5 mls/hr Q24H IV 01/29/25 14:15 Piperacillin Sod/ Tazobactam Sod 100 ml @ 25 mls/hr Q12HR IV 01/29/25 22:00 01/30/25 10:29 25 MLS/HR Pantoprazole Sodium 40 mg DAILY IV 01/30/25 10:00 01/30/25 10:28 40 MG Phenylephrine HCl 250 ml @ 30 mls/hr Q8H20M IV 01/29/25 19:30 01/30/25 06:05 97.5 MLS/HR Levalbuterol HCl 0.625 mg Q4HR PRN NEB 01/29/25 20:00 01/30/25 00:08 0.625 MG Ipratropium [place] 0.5 mg Q4HPRN PRN NEB 01/29/25 20:00 01/30/25 00:08 0.5 MG Epinephrine HCl 250 ml @ 7.5 mls/hr Q24H IV 01/30/25 00:15 Vasopressin 20 units/Sodium Chloride 100 ml @ 9 mls/hr Q11H7M IV 01/30/25 07:30 Sodium Bicarbonate 150 ml/Dextrose 1,150 ml @ 120 mls/hr Q9H35M IV 01/30/25 14:30 Bumetanide 12.5 mg/Miscellaneous 50 ml @ 2 mls/hr Q24H IV 01/30/25 14:30 Examination: LUNGS:Normal, CVS:Normal, MSK:Normal laboratory and microbiology Laboratory Tests 01/30/25 07:37 Test 01/30/25 07:37 Range/Units Serum Glucose 279 H 74-106 mg/dL Microbiology Date/Time Source Procedure Growth Status 01/29/25 10:49 Blood Blood Culture - Preliminary NO GROWTH AFTER 24 HOURS OF INCUBATION. Resulted 01/29/25 10:43 Sputum Gram Stain - Final Resulted 01/29/25 10:43 Sputum Respiratory Culture - Preliminary Resulted Problem List/Assessment/Plan Problem List/Assessment/Plan Acute kidney injury likely ischemic ATN in the setting of shock, FeNa > 2%, nonoliguric Acute respiratory failure, intubated on ventilator Status post cardiac arrest Hyperkalemia secondary to above Metabolic acidosis anion gap secondary to lactic acidosis secondary to reduced perfusion from hemorrhage Hemodynamic shock from bleeding Acute blood loss anemia/post op Status post laparoscopic cholecystectomy on 01/28/25 On license of [facility] Status post ex lap, 01/29 Positive troponins NSTEMI--likely demand ischemia Shock liver Hypokalemia Recommendations Kidney function worsened today Increased urine output Mora catheter strict I&Os IVF D5W with three amps of bicarb 120 cc/hour Packed red blood cell transfusion p.r.n. IV antibiotics IV pressors for blood pressure support We will continue to follow closely and assess for need for hemodialysis on daily basis I discussed my plan of care with mother and the primary nurse at the bedside Plan discussed with: Other (Nurse) My Orders My Orders Orders - FELICIANO KHAN MD Procedure Category Date Status Time D5w 5% (Dextrose 5%) PHA 01/30/25 In Process W/Sodium Bicarb 50m 14:30 Give Un-Diluted PHA 01/30/25 In Process (Gi... W/Bumetanide 14:30 Potassium LAB 01/30/25 Logged 15:40 Communication Order ORDERS 01/30/25 Transmitted 15:40 Rt Lower Dvt US 01/30/25 Logged 15:40 FELICIANO KHAN MD Jan 30, 2025 15:52
--- NOTE | 2025-01-30 16:53 | DVH ---
CLINICAL HISTORY: LEG PAIN PRIOR TO ADMISSION PER FAMILY TECHNIQUE: Color and duplex doppler imagine of the right lower extremity veins was performed. Vessel compression if possible was also performed. COMPARISON: None FINDINGS: Right common femoral vein: Normal compressibility and flow. Right superficial femoral vein: Normal compressibility and flow. Right popliteal vein: Normal compressibility and flow. Proximal calf veins are normally compressible. IMPRESSION: NO SONOGRAPHIC EVIDENCE FOR DEEP VENOUS THROMBOSIS IN THE RIGHT LOWER EXTREMITY VEINS.
[2025-01-30] MEDS: SODIUM BICARB 50mEq/50ml Vial 150 ML in D5W 5% 1,000 ML IV SCH (16:55)
--- NOTE | 2025-01-30 17:37 | DVHPN2 ---
Progress Note Date Seen: Jan 30, 2025 Has the PT tested + for MRSA If YES, has PT been informed?: No Medical Necessity Reason Pt with a Central, PICC or Fol: Yes The following are medically ne: Central Line, Mora Catheter Reason for mora catheter: Nakul. Abd Surgery Subjective Review of Systems Called by RN earlier today after CT scan of the brain was completed and read by radiologist. RN stated that the patient had cerebral edema and I was under the impression that there was impending herniation. For this reason I requested emergent transfer to [address] [place] [address] for NeuroSx decompression. However, RN also stated that Dr. Guillen has reviewed the CT and held a conversation with the patient's mother with regards to the findings and basically told her nothing could be done. Clarification was obtained from the mattress spring encaser, stating that Dr. Guillen had stated that the patient had already herniated and surgical treatment would be futile. Therefore, transfer arrangements were canceled. Per RN, Pt has decreased vasopressor requirements. Also has had slight increase in urine output. Per RN only 40 mL of thin sanguineous fluid from drain. I inquired whether the patient had taken prescribed analgesics. The patient's mother stated he did not take any of the tablets, that he had some pain but not enough to take any medications at the time. However, he did complain of right leg pain, pointing to the anterior thigh at 3 or 4 AM. The mother was not able to determine which part of the leg he was having pain. The patient's daughter showed up slightly later with another friend/relative (middle aged woman). She brought it up the leg pain and inquired whether he could have had a PE. I explained to her that I had ordered a VQ scan and CT of the brain yesterday but reportedly the patient was too unstable to undergo the studies. In addition, she was made aware that if he had a PE, we would have not been able to treat it as he had been bleeding. A duplex US was ordered earlier by Dr. Hazel as he had also just found out that the patient had complained of right leg pain during the night before his admission. I discussed with Dr. Hazel whether Mannitol could be considered. His concern was with regards to increased volume and not being able to diurese. He recommended a Bumex gtt and if no improvement, consider HD, which he had already discussed with her, and she accepted. I had a very lengthy discussion with the patient's mother, brother and sister (there was another middle aged female in the room), I discussed the brain CT scan findings and explained that the clinical prognosis was confirmed/concordant with the CT scan findings. They were made aware that his prognosis is extremely poor with regards to survival or even meaningful recovery. MRI of brain not necessary per Dr. Guillen. The patient's mother was made of the high possibility of given tonsillar herniation. She wants to pursue all measure and options. They are aware that the plan will be to remove the packing on Monday. Possible hemodialysis tomorrow if renal function does not improve The patient's sister asked us to pray together. We prayed for him in his room. Objective vital signs Vital Sign Date Time Temp Pulse Resp B/P (MAP) Pulse Ox O2 Delivery O2 Flow Rate FiO2 01/30/25 16:18 132 26 101/76 (84) 98 55 01/30/25 14:30 97.7 97.7 01/30/25 14:00 Mechanical Ventilator+ Total Intake and Output 01/29/25 01/29/25 01/30/25 15:00 23:00 07:00 Intake Total 360 ml 3343.75 ml 1166.25 ml Output Total 0 ml 180 ml 1030 ml Balance 360 ml 3163.75 ml 136.25 ml medications Current Medications Medications Dose Ordered Sig/Serenity Route Start Time Stop Time Status Last Admin Dose Admin Norepinephrine Bitartrate 250 ml @ 3.75 mls/hr Q24H IV 01/29/25 10:00 01/30/25 06:00 56.25 MLS/HR Midazolam HCl 50 ml @ 1 mls/hr Q24H IV 01/29/25 14:15 01/29/25 15:56 5 MLS/HR Fentanyl Citrate 250 ml @ 2.5 mls/hr Q24H IV 01/29/25 14:15 Piperacillin Sod/ Tazobactam Sod 100 ml @ 25 mls/hr Q12HR IV 01/29/25 22:00 01/30/25 10:29 25 MLS/HR Pantoprazole Sodium 40 mg DAILY IV 01/30/25 10:00 01/30/25 10:28 40 MG Phenylephrine HCl 250 ml @ 30 mls/hr Q8H20M IV 01/29/25 19:30 01/30/25 06:05 97.5 MLS/HR Levalbuterol HCl 0.625 mg Q4HR PRN NEB 01/29/25 20:00 01/30/25 00:08 0.625 MG Ipratropium Fowler 0.5 mg Q4HPRN PRN NEB 01/29/25 20:00 01/30/25 00:08 0.5 MG Epinephrine HCl 250 ml @ 7.5 mls/hr Q24H IV 01/30/25 00:15 Vasopressin 20 units/Sodium Chloride 100 ml @ 9 mls/hr Q11H7M IV 01/30/25 07:30 Sodium Bicarbonate 150 ml/Dextrose 1,150 ml @ 120 mls/hr Q9H35M IV 01/30/25 14:30 Bumetanide 12.5 mg/Miscellaneous 50 ml @ 4 mls/hr [id number] IV 01/30/25 16:15 UNV laboratory and microbiology Laboratory Tests 01/30/25 07:37 Test 01/30/25 07:37 Range/Units Serum Glucose 279 H 74-106 mg/dL Microbiology Date/Time Source Procedure Growth Status 01/29/25 10:49 Blood Blood Culture - Preliminary NO GROWTH AFTER 24 HOURS OF INCUBATION. Resulted 01/29/25 10:43 Sputum Gram Stain - Final Resulted 01/29/25 10:43 Sputum Respiratory Culture - Preliminary Resulted Labs and/or images reviewed: Labs reviewed by me, Image(s) reviewed by me Problem List/Assessment/Plan Problems(with codes): (1) Cerebral edema (2) Tonsillar hernia into foramen magnum (3) ARF (acute renal failure) (4) Ventilator dependent (5) Shock liver (6) Coagulopathy (7) Hemorrhagic shock Problem List/Assessment/Plan Neuro: Dilated pupils, no gag reflex or response to painful stimuli. Appreciate neurology input and assistance. CT revealed Cerebral edema and tonsillar herniation. Poor prognosis. Pt too unstable for prolonged MRI study. Per neurology, no surgical decompression indicated. Patient's mother, sister, brother in law and brother aware of CT findings, limited treatment options and poor prognosis. CV: Hemodynamic instability secondary to hemorrhagic shock. Continue vasopressor support.Titrate as needed to maintain MAP 65. Decreased vasopressor requirements. Elevated troponin, likely secondary and/or worsened by hemodynamic stress and CPR. Can't rule out ischemia. Cardiology assistance appreciated. Mechanical DVT prophylaxis. Pulmonary: VDRF. Continue ventilator. Appreciate pulmonary medicine assistance. R/O PE. Pending VQ scan. Unfortunately Pt too unstable for VQ scan and can't consider CTA chest given ARF. GI: NPO. No TF given high vasopressor requirements. No TPN given high fluid volume. Continue GI prophylaxis. Hepatic shock. Appreciate GI assistance. . ARF secondary to hemorrhagic shock. Strict I&O. Mora to gravity. Improving metabolic acidosis. Appreciate nephrology assistance. Replace/correct electrolytes and IVFs per nephrology. Bumex gtt Heme/ID. Received TXA, PCC, 3 u PRBC. 3 FFP and 2 u Cryoprecipitate. Hemorrhagic shock and coagulopathy. Stable Hgb up to 12. Improved coagulopathy. Appreciate hematology assistance. Doubt sepsis. Prophylactic antibiotics. Endocrine: Tight glycemic control. Skin :Skin care and pressure ulcer precautions. CT scan of the neck demonstrated edema. The CT chest edema and pulmonary infiltrates. CT of the of the abdomen and pelvis demonstrated no evidence of bleeding/hematoma, besides unchanged hemoperitoneum in the perisplenic region, intraabdominal packing and hemostatic agents (Surgiflo and Surgicel Snow). Patient's mother/ family wish to pursue with al possible treatment options. They are aware that his condition still remains critical and prognosis is poor. Will proceed with full code and all treatment options available. Patient has been schedule for 2nd look laparotomy and removal of packing on Monday at 7 amI They are aware that intraoperative finding will dictate end result of the procedure. Patient's family questions have been answered. I spent approximately an hour with the patient's family. Plan discussed with: Other (RN, pt's mother, brother, sister and brother in law) My Orders My Orders Orders - JITENDRA ZAMORA MD Procedure Category Date Status Time Abg W/ Co-Ox RT 01/29/25 Logged 17:15 Communication Order ORDERS 01/29/25 Transmitted 16:57 Communication Order ORDERS 01/29/25 Transmitted 16:57 * Hematology/Oncology CONS 01/29/25 Transmitted Consult 17:34 Phenylephrine Iv PHA 01/29/25 In Process (Phenylephrine/Ns) 19:30 Nm Vq Scan NM 01/29/25 Logged 19:40 Obtain Consent For: ORDERS 01/30/25 Transmitted 04:39 Obtain Consent For YANET 01/30/25 In Process Anesthesia 04:[address] 01/30/25 Resulted 05:[address] 01/30/25 Resulted 07:00 Communication Order ORDERS 01/30/25 Transmitted 07:32 Chst Ab Pel Wo Con-No CT 01/30/25 Resulted Iv/Oral 07:38 JITENDRA ZAMORA MD Jan 30, 2025 17:37
--- NOTE | 2025-01-30 17:40 | DVHPNRES ---
Progress Note Date Seen: Jan 30, 2025 Resident Creating Document: BLANQUITA DAVILA RESIDENT Has the PT tested + for MRSA If YES, has PT been informed?: No Medical Necessity Reason Pt with a Central, PICC or Fol: Yes The following are medically ne: Central Line, Mora Catheter Reason for mora catheter: Nakul. Abd Surgery Subjective Review of Systems This is a 24-year-old male without any significant past medical history, who underwent an elective outpatient laparoscopic cholecystectomy yesterday at [facility] for right upper quadrant pain and cholelithiasis. Postoperative period was uneventful and the patient was discharged around 1:00 p.m. in the afternoon. To the mother the patient was very lethargic but was able to eat p.o. intake. She noticed around 2:00 a.m. in the morning that her son was progressively very lethargic and 8 3:00 a.m. approximately in the morning patient became unresponsive. Mother perform CPR in the field until the EMS arrived and they brought the patient to the [facility] ER for further evaluation. In the ED CT abdomen pelvis without contrast revealed a hepatic hematoma measuring 8.6 cm with hemorrhage extending beyond the liver capsule into the right paracolic gutter as well as the pelvis. The patient was emergently taken back to the surgery by Dr. Ldeesma at 4:30 p.m. in the afternoon. There was an evacuation of a large hemoperitoneum and subsequently admitted to ICU. Patient was seen and examined on the bedside. He is on mechanical ventilation with FiO2 45%, tidal volume 550 mL, peep 5. Currently the patient is on Levophed and vasopressin . CT head without contrast showed Diffuse cerebral edema with cerebellar tonsillar herniation. Dr. Zafar discussed the brain CT scan findings and explained that the clinical prognosis was confirmed/concordant with the CT scan findings. They were made aware that his prognosis is extremely poor with regards to survival or even meaningful recovery. MRI of brain not necessary per Dr. Guillen. The patient's mother was made of the high possibility of given tonsillar herniation. She wants to pursue all measure and options. Objective vital signs Vital Sign Date Time Temp Pulse Resp B/P (MAP) Pulse Ox O2 Delivery O2 Flow Rate FiO2 01/30/25 16:18 132 26 101/76 (84) 98 55 01/30/25 14:30 97.7 97.7 01/30/25 14:00 Mechanical Ventilator+ Total Intake and Output 01/29/25 01/29/25 01/30/25 15:00 23:00 07:00 Intake Total 360 ml 3343.75 ml 1332.50 ml Output Total 0 ml 180 ml 1030 ml Balance 360 ml 3163.75 ml 302.50 ml medications Current Medications Medications Dose Ordered Sig/Serenity Route Start Time Stop Time Status Last Admin Dose Admin Norepinephrine Bitartrate 250 ml @ 3.75 mls/hr Q24H IV 01/29/25 10:00 01/30/25 06:00 56.25 MLS/HR Midazolam HCl 50 ml @ 1 mls/hr Q24H IV 01/29/25 14:15 01/29/25 15:56 5 MLS/HR Fentanyl Citrate 250 ml @ 2.5 mls/hr Q24H IV 01/29/25 14:15 Piperacillin Sod/ Tazobactam Sod 100 ml @ 25 mls/hr Q12HR IV 01/29/25 22:00 01/30/25 10:29 25 MLS/HR Pantoprazole Sodium 40 mg DAILY IV 01/30/25 10:00 01/30/25 10:28 40 MG Phenylephrine HCl 250 ml @ 30 mls/hr Q8H20M IV 01/29/25 19:30 01/30/25 06:05 97.5 MLS/HR Levalbuterol HCl 0.625 mg Q4HR PRN NEB 01/29/25 20:00 01/30/25 00:08 0.625 MG Ipratropium [place] 0.5 mg Q4HPRN PRN NEB 01/29/25 20:00 01/30/25 00:08 0.5 MG Epinephrine HCl 250 ml @ 7.5 mls/hr Q24H IV 01/30/25 00:15 Vasopressin 20 units/Sodium Chloride 100 ml @ 9 mls/hr Q11H7M IV 01/30/25 07:30 01/30/25 07:30 9 MLS/HR Sodium Bicarbonate 150 ml/Dextrose 1,150 ml @ 120 mls/hr Q9H35M IV 01/30/25 14:30 01/30/25 16:55 120 MLS/HR Bumetanide 12.5 mg/Miscellaneous 50 ml @ 4 mls/hr [id number] IV 01/30/25 16:15 Examination Exam General: RASS -3, afebrile, mucosae are moist Cardiovascular: Normal S1 and S2. No murmurs, gallops or rubs Respiratory: Soft tissue edema around the neck, Mechanically assisted ventilation, equal bilateral airway entree. Clear lung sounds on auscultation Abdomen: Soft, nontender, no organomegaly, bowel sounds absent MSK/skin: Mobilization of limbs cannot be evaluated. Skin is dry and warm. Neurological: Orientation cannot be assessed. No apparent motor no sensitive deficits. Absent gag reflex, Pupils are dilated and nonreactive laboratory and microbiology Laboratory Tests 01/30/25 16:42 01/30/25 07:37 Test 01/30/25 07:37 Range/Units Serum Glucose 279 H 74-106 mg/dL Microbiology Date/Time Source Procedure Growth Status 01/29/25 10:49 Blood Blood Culture - Preliminary NO GROWTH AFTER 24 HOURS OF INCUBATION. Resulted 01/29/25 10:43 Sputum Gram Stain - Final Resulted 01/29/25 10:43 Sputum Respiratory Culture - Preliminary Resulted Labs and/or images reviewed: Labs reviewed by me, Image(s) reviewed by me Problem List/Assessment/Plan Problem List/Assessment/Plan Assessment and plan: NEURO: Status post cardiac arrest On mechanical ventilation Possible anoxic brain injury RASS score: -3 CT head without contrast demonstrated no evidence of acute intracranial abnormality. CARDIOVASCULAR: NSTEMI possible type 2 Hypovolemic shock - cardiology on board - Due to recent active bleeding patient is not a suitable candidate for antiplatelet/anticoagulant and has multiorgan failure and coronary angiogram is not possible right now - Pending echo - EKG revealed sinus tachycardia - troponin trends were [id number] PULMONARY: Acute hypoxic respiratory failure on mechanical ventilation - Cxr showed bilateral mild pulmonary vascular congestion GASTROINTESTINAL: Acute transaminitis secondary to hypovolemic shock Coagulopathy Hypoalbuminemia Status post laparoscopic cholecystectomy Status post exploratory laparotomy for hemoperitoneum - CT abdomen pelvis without contrast demonstrated Hepatic hematoma measuring up to approximately 8.6 cm in greatest dimension, as described above, with hemorrhage extending beyond the liver capsule and into the right pericolic gutter as well as into the pelvis. Postsurgical changes of cholecystectomy.Dilated fluid-filled small bowel loops, may be due to postoperative ileus. No small bowel obstruction. Small volume pneumoperitoneum, likely due to recent surgery. Small volume of gas are seen in the upper ventral abdomen from the recent surgery. - Received 3 units of PRBC, 2 units of FFP and 1 unit of cryoprecipitate - GI on board GENITOURINARY: HARLEEN secondary to hypovolemic shock - Nephrology on board - IV Bumex 2.5 mg b.i.d. - Renal ultrasound showed atrophic right kidney, enlarged left kidney and no evidence of hydronephrosis. - continue vasopressor - strict I&O METABOLIC: Severe anion gap metabolic acidosis due to lactic acidosis Hypernatremia Grade 2 obesity, BMI 35.7 kg per m2 Hypoglycemia HEME: Acute blood loss anemia - Received 3 units of PRBC, 2 units of FFP and 1 unit of cryoprecipitate - Monitor H&H INFECTIOUS DISEASE: Leucocytosis Lactic acidosis - cultures are pending - IV Zosyn 3.375 g Q 8 hours DIET: NPO DVT prophylax: Hold GI prophylaxis: Protonix Bowel regimen: Code status: Full code LINES/DRAINS/ACCESS: ETT: Intubated on 01/29/25 IV access: Lt IJ placed on 01/29/25 Drips: Levophed, vasopressin, Versed, fentanyl, bicarb drip Mora catheter: Placed on DISPOSITION: ICU Patient's status discussed with Mom, resident care manager time spent more than 83 minutes, including patient care, chart review, and updating the family. Excluding any procedures. Case discussed with Dr. Troy Plan discussed with: Other (Mom, brother, sister, RN) My Orders My Orders Orders - BLANQUITA DAVILA RESIDENT Procedure Category Date Status Time Abg W/ Co-Ox RT 01/30/25 Logged 04:00 Abg W/ Co-Ox RT 01/29/25 Logged 22:00 Ventilator Setup RT 01/29/25 Logged 19:51 Levalbuterol Hcl PHA 01/29/25 In Process (Xopenex Medneb) 20:00 Ipratropium Medneb PHA 01/29/25 In Process (Atrovent Medneb) 20:00 Chest Portable XY 01/30/25 Resulted 09:31 Date of Service: Jan 30, 2025 Billing Provider: JEFFREY TORY MD Common Visit Codes: 59884-JALUMOGK CARE 30-74 MIN, 77964-VOWJBJWE CARE-EACH +30MIN BLANQUITA DAVILA Jan 30, 2025 17:40 JEFFREY TROY MD Feb 01, 2025 12:39
[2025-01-30] MEDS: BUMETANIDE INJECTION 12.5 MG in GIVE UN-DILUTED 0 ML IV SCH (17:55)
[2025-01-30] MEDS: ALBUMIN 25% 100 ML IV ONE (18:36)
--- NOTE | 2025-01-30 20:32 | DVHOP ---
DATE OF SURGERY: 01/30/2025 PREOPERATIVE DIAGNOSIS: Hemoperitoneum. POSTOPERATIVE DIAGNOSIS: Hemoperitoneum. PROCEDURE: Exploratory laparotomy and intra-abdominal packing. SURGEON: Robbin Ledesma MD BLEACHING SUPERVISOR: None. ANESTHESIOLOGIST: Dr. Cantu. ANESTHESIA: General by use of endotracheal intubation. INTRAOPERATIVE FINDINGS: No active source of bleeding identified. No significant hemoperitoneum or thrombus. Distended small bowel. Viable visualized small bowel, colon, and liver. ESTIMATED BLOOD LOSS: Minimal. INTRAVENOUS FLUIDS: Per Anesthesia charting. URINE OUTPUT: Per RN charting. DRAINS: A 19 Robby drain. SPECIMEN: None. COMPLICATIONS: None. DISPOSITION: Procedure well tolerated. Transferred to the Intensive Care Unit in critical condition. INDICATIONS FOR PROCEDURE: The patient is a 24-year-old male who underwent a laparoscopic cholecystectomy on 01/29. He was discharged home. The following morning, the patient became unresponsive, requiring CPR at the site and again in the Emergency Department. Upon arrival to the Emergency Department, he required to be resuscitated. Once again, he was successfully resuscitated. He was hemodynamically unstable, initiated on pressors and intubated, with mechanical ventilatory support. He was noted to have a distended abdomen. His labs revealed anemia, with hemoglobin of 8.3, coagulopathic with severe metabolic acidosis and renal failure. Elevated transaminases and alkaline phosphatase with slightly elevated total bilirubin. A CT scan of the abdomen and pelvis revealed evidence of hemoperitoneum. As soon as I was contacted, I arrived to the Emergency Department, evaluated the patient and reviewed labs and images, and had a lengthy discussion with the patient's mother, recommended an emergent laparotomy. The patient had a laparotomy intraoperatively, approximately 500-750 mL of thrombus and dark blood was identified without an obvious source of bleeding. Hemostatic agents were applied. The patient was taken to the recovery room in a critical condition after the procedure. The patient's coagulopathy worsened. For this reason, Hematology consultation was requested after. He was given prothrombin complex concentrate, tranexamic acid, FFP, and cryoprecipitate. Hematology consultation was requested, who agreed with the actions taken. The patient was subsequently transferred to the Intensive Care Unit. This morning at approximately 1:50 in the morning, I was called by Intensive Care Unit nurse stating that the patient's abdomen appeared to be slightly more distended and he had approximately 300 mL of sanguineous fluid since the patient was transferred to SDU. Given the above-mentioned conditions and findings, I came to the patient's bedside and evaluated the labs. The patient was noted to be significantly improved hemoglobin as well as coagulation parameters. However, remained hemodynamically unstable, with vasopressor support as well as severe metabolic acidosis and renal failure. The patient's neurological condition was unchanged. A lengthy discussion with the patient's mother and brother was held. The clinical condition was discussed. Based on improvement of the coagulation parameters as well as hemoglobin, I recommended a laparotomy to assess for potential bleeding. If identified, then packing will be performed. The procedure, risks and benefits were explained in a detailed and extensive fashion. All of her questions were answered. She understood and agreed to proceed. DESCRIPTION OF PROCEDURE: The patient was taken to the operating room and placed on the operating room table in the dorsal decubitus position. Once adequate anesthesia was achieved, the drain was removed. The abdomen and pelvis were widely prepped and draped in the usual sterile fashion. [place] were removed. The incision was opened. The anterior sheath sutures were cut, gaining access to posterior sheath closure, which was also opened by cutting the suture, gaining access to the peritoneal cavity. A Bookwalter retractor was placed. Approximately 20 mL of thin sanguineous fluid was observed in the gallbladder fossa/posterior aspect of the right lobe of the liver. Hemostatic agents were removed. The area was inspected. There was no obvious source of bleeding observed. The visualized small bowel was distended. However, it was also viable. The portion of the right colon and transverse colon was also viable. The liver was viable. The area was irrigated. The fluid was evacuated. There was no evidence of any arterial bleeding or clear source. FloSeal was again applied to the gallbladder fossa and the hepatoduodenal, where the cystic duct and cystic artery stumps were identified. Then, Surgicel SNoW was applied and to ensure hemostasis, and 2 lap pads used as intra-abdominal packing. These were left in place. The Bookwalter retractor was removed. The posterior sheath was closed with 0 Vicryl x 2. A 19 Robby drain was placed in the posterior aspect of the right hepatic lobe and externalized via the right upper quadrant medial trocar site incision, where the previous drain was located. The drain was secured to the skin by means of a 2-0 silk suture. The posterior sheath was then closed with 0 Vicryl x 2. The anterior sheath was closed with double-stranded 0 PDS suture x 2. The wound was washed and dried. The skin was closed with vic. The abdomen was washed and dried. Sterile dressings were applied. The patient tolerated well the procedure. He was transferred to the Intensive Care Unit remaining in a critical condition. After completion of the procedure, I met with the patient's mother and brother and explained the intraoperative findings and the procedure. They were made aware that he will be taken back to the operating room on Monday morning to remove the packing and reassess. Again, they were informed about the patient's critical condition and the concern for his neurologic function. Once the patient stabilizes, a CT scan of the brain will be obtained pending Neurology consultation. MD LAYA Mora/KELBY/MARIA LUZ TID: [id number] RECEIPT: [id number]
[2025-01-31] VITALS (108 sets, daily range): BP systolic 89–169; BP diastolic 42–120; PULSE 110–128; RESP 13–28; TEMP 96.3–97.8; O2SAT 91–100
[2025-01-31] MEDS: BUMETANIDE INJECTION 50 ML ONE (00:47)
[2025-01-31 04:22] LABS: Hematocrit 27.3 % (41.0-53.0); Hemoglobin 9.3 g/dL (13.5-17.5); Mean Corpuscular Hemoglobin 30.2 pg (28.0-32.0); Mean Corpuscular Volume 88.4 fL (80.0-100.0); Nucleated Red Blood Cells % 0.2 %
[2025-01-31 04:43] LABS: INR 1.5 (0.9-1.15); Partial Thromboplastin Time 36.1 SEC (24.5-34.5); Prothrombin Time 15.3 sec (9.3-11.8)
[2025-01-31 04:44] LABS: Alkaline Phosphatase 103 U/L (46-116); Anion Gap 16 (5-15); BUN/Creatinine Ratio 7.0 (10.0-20.0); Carbon Dioxide 24 mmol/L (20-31); Chloride 103 mmol/L (98-107); Potassium 3.6 mmol/L (3.5-5.1); Sodium 143 mmol/L (136-145)
[2025-01-31 04:53] LABS: Albumin 2.5 g/dL (3.2-4.8); Bilirubin, Total 3.1 mg/dL (0.2-1.0); Blood Urea Nitrogen 38 mg/dL (9-23); Calcium 6.5 mg/dL (8.7-10.4); Glucose 176 mg/dL (74-106); Total Protein 4.0 g/dL (5.7-8.2)
[2025-01-31 04:58] LABS: Alanine Aminotransferase 1996 U/L (7-40)
--- NOTE | 2025-01-31 05:42 | DVH ---
CHEST RADIOGRAPH Indication: MECHANICAL VENTILATION Technique: Single frontal view of the chest was obtained COMPARISON: XY CHEST PORTABLE on DOS: 01/30/25, XY CHEST PORTABLE on DOS: 01/29/25, CT CT CHEST/AB/PL W CON- IV ONLY on DOS: 01/29/25, XY CHEST PORTABLE on DOS: 01/29/25 FINDINGS: Lines and Tubes: Lines and tubes unchanged. Lungs: Low lung volumes with concomitant crowding of the pulmonary vasculature. No evidence of focal consolidation. Pleura: No effusion. No pneumothorax. Cardiomediastinal contours: Unremarkable Bones: Unremarkable IMPRESSION: 1. Low lung volumes with concomitant crowding of the pulmonary vasculature. 2. No evidence of focal consolidation. 3. Lines and tubes unchanged.
[2025-01-31 07:03] LABS: Base Excess 0.3 mmol/L (-2.0-3.0)
--- NOTE | 2025-01-31 10:04 | DVHPN2 ---
Progress Note - Dictate Date Seen: Jan 31, 2025 Has the PT tested + for MRSA If YES, has PT been informed?: No Medical Necessity Reason Pt with a Central, PICC or Fol: Yes The following are medically ne: Central Line, Mora Catheter Reason for mora catheter: Nakul. Abd Surgery vital signs Vital Sign Date Time Temp Pulse Resp B/P (MAP) Pulse Ox O2 Delivery O2 Flow Rate FiO2 01/31/25 09:30 125 22 120/83 (95) 100 30 01/31/25 07:30 97.0 97.0 01/31/25 06:00 Mechanical Ventilator+ Total Intake and Output 01/30/25 01/30/25 01/31/25 15:00 23:00 07:00 Intake Total 1480.00 ml 1002.00 ml 1337.75 ml Output Total 515 ml 610 ml Balance 1480.00 ml 487.00 ml 727.75 ml medications Current Medications Medications Dose Ordered Sig/Serenity Route Start Time Stop Time Status Last Admin Dose Admin Norepinephrine Bitartrate 250 ml @ 3.75 mls/hr Q24H IV 01/29/25 10:00 01/31/25 02:20 30 MLS/HR Midazolam HCl 50 ml @ 1 mls/hr Q24H IV 01/29/25 14:15 01/29/25 15:56 5 MLS/HR Fentanyl Citrate 250 ml @ 2.5 mls/hr Q24H IV 01/29/25 14:15 Piperacillin Sod/ Tazobactam Sod 100 ml @ 25 mls/hr Q12HR IV 01/29/25 22:00 01/30/25 22:23 25 MLS/HR Pantoprazole Sodium 40 mg DAILY IV 01/30/25 10:00 01/30/25 10:28 40 MG Phenylephrine HCl 250 ml @ 30 mls/hr Q8H20M IV 01/29/25 19:30 01/30/25 01:39 116.25 MLS/HR Levalbuterol HCl 0.625 mg Q4HR PRN NEB 01/29/25 20:00 01/30/25 00:08 0.625 MG Ipratropium [place] 0.5 mg Q4HPRN PRN NEB 01/29/25 20:00 01/30/25 00:08 0.5 MG Epinephrine HCl 250 ml @ 7.5 mls/hr Q24H IV 01/30/25 00:15 Vasopressin 20 units/Sodium Chloride 100 ml @ 9 mls/hr Q11H7M IV 01/30/25 07:30 01/30/25 07:30 9 MLS/HR Bumetanide 12.5 mg/Miscellaneous 50 ml @ 4 mls/hr [id number] IV 01/30/25 16:15 01/31/25 00:34 4 MLS/HR laboratory and microbiology Laboratory Tests 01/31/25 03:53 Test 01/31/25 03:53 Range/Units Serum Glucose 176 #H 74-106 mg/dL Assessment/Plan Still being managed in ICU. Still intubated and on pressure and vent supports. Still no reflexes. Has been evaluated by Neurology: hypoxic/metabolic Encephalopathy Echocardiogram revealed no WMA and also revealed good EF. It also revealed increased Pulmonary Artery Pressure in favor of component of Pulmonary Hypertension. Has not been stable to go for V/Q scan. Kidney function has worsened. Patient is a 24-year-old gentleman who was originally brought to the hospital for post arrest. Patient is seen in postop area. Patient is intubated and on multiple pressor supports. Patient is not source of history. Information was obtained by reviewing the chart, talking to patient's family/mother and communicating with staff and reviewing outside records ([facility]). Patient did have elective outpatient laparoscopic cholecystectomy in [facility] on January 28 2025. As per mother, after going home, patient was feeling very hungry and was eating and drinking a lot. He started feeling abdominal pain with nausea at night and in the morning was short of breath. As per mother: patient has stopped breathing in the morning and family called 911. As per mother, as per guidance of 911, family started CPR until EMS arrived. Patient was intubated and was brought to the hospital by EMS. Since arrival to [facility], patient was seen by surgeon who took the patient to operating room and performed laparotomy (there was hepatic hematoma). Postoperatively, the patient has remained hypotensive. There is signs for multiorgan involvement. Patient was not alert and did not complain of any chest pains. Labs revealed increased troponin. Cardiology is involved for cardiac aspects of care and abnormal troponin. First available EKG reveals sinus tachycardia with no specific ST-T changes. Telemetry had revealed sinus tachycardia throughout the stay. Patient is found to have significant anemia and is receiving blood transfusion at the time of evaluation. It is of note that at the time of evaluation patient does not have any reflexes. Intubated. Mucosa pale. Scattered rhonchi in the lungs. Cardiac: Tachycardic. No murmur. Abdomen is covered by dressing. Extremities do not reveal any edema. Dorsalis pedis is 1+ bilateral. Pupils are not reflective to light. Patient does not respond to any painful stimuli Reported past medical history includes asthma and obesity. Reportedly, on January 23, 2025: Patient presented to [facility] for abdominal pain/nausea/vomiting. At that point the problems were ongoing for few weeks. In [facility], CT of the abdomen and MRCP were performed. Patient was seen by GI/surgery. Patient was found to have gallstones. Patient was discharged and later on January 28, 2025 presented back to [facility] for elective laparoscopy cholecystectomy. Patient was discharged home from [facility] after laparoscopic cholecystectomy. As per mother, patient does not have baseline history of any cardiac history. As per mother, patient was using marijuana. Mother denies any previous substance abuse besides marijuana. No specific family history is reported On January 23, 2025, labs in [facility] revealed creatinine of 0.84, hemoglobin of 15.2 and troponin (high sensitive) of <3. At that point EKG was normal WBC: 20.1 - 19.0 - 22.7 - 20.6 - 28.4 - 20.3 Hemoglobin: 8.3 - 6.5 - 12.1 - 11.1 - 12.1 - 9.3 Fibrinogen: 108 Creatinine: 4.02 - 3.78 - 3.90 - 3.95 - 4.34 - 5.44 Potassium: 5.6 - 4.6 - 4.8 - 3.9 - 2.9 - 2.9 - 3.6 AST/ALT: 676/700 - 2327/6 - 7136/2521 - /1995 Lactic acid: 17.9 - 17.2 - 11.4 Troponin (high sensitive): 5648 - 8400 - 3724 - 1667 - 9066 TSH: 11.05 Urine Toxicology: positive for Fentanyl and Benzodiazepine Chest x-ray revealed: Lines and Tubes: Endotracheal tube projects 2.2 cm above the meghan. Right internal jugular central venous catheter tip projects over superior vena cava. Lungs: No focal consolidation. Low lung volumes. Pleura: No effusion. No pneumothorax. Cardiomediastinal contours: Unremarkable Bones: No acute osseous abnormality. IMPRESSION: Lines and tubes as above. Low lung volumes. Repeat chest x-ray revealed: IMPRESSION: Lines and tubes in satisfactory position. Mild increased pulmonary vascular congestion Repeat chest xry revealed: IMPRESSION: Lines and tubes in satisfactory position. Mild increased pulmonary vascular congestion Repeat chest xry revealed: IMPRESSION: 1. Low lung volumes with concomitant crowding of the pulmonary vasculature. 2. No evidence of focal consolidation. 3. Lines and tubes unchanged. CT of the chest/abdomen/pelvis revealed: IMPRESSION: 1. Hepatic hematoma measuring up to approximately 8.6 cm in greatest dimension, as described above, with hemorrhage extending beyond the liver capsule and into the right pericolic gutter as well as into the pelvis. No definite active arterial bleeding is seen on this exam, although limited evaluation due to the timing of contrast, as this was not a CTA exam. 2. Postsurgical changes of cholecystectomy. 3. Dilated fluid-filled small bowel loops, may be due to postoperative ileus. No small bowel obstruction. 4. Small volume pneumoperitoneum, likely due to recent surgery. Small volume of gas are seen in the upper ventral abdomen from the recent surgery. 5. Dependent atelectasis in the lower lobes. Otherwise, no acute disease in the chest. 6. Endotracheal tube and enteric tube in place. 7. Atrophic right kidney incidentally noted. 8. Additional findings as described above. Critical findings Critical Result: Acute hepatic hematoma with hemorrhage extending beyond the liver capsule into the adjacent portions of the abdomen and into the pelvis as detailed above. Repeat CT of chest/abdomen/pelvis revealed: There is limited interpretation of the chest, abdomen and pelvis without administration of intravenous contrast. Endotracheal tube tip terminates just at the meghan / left main bronchus. Diffuse bilateral pulmonary airspace consolidation bilaterally significantly increased. Bilateral lower lobe lobar consolidation/ atelectasis, increased from prior. Small bilateral pleural effusions. There is extensive edema/ stranding within the upper anterior chest, neck region/supraclavicular region. There is some hyperdensity within this region which could represent components of hematoma / blood products. Heterogeneous appearance of the thyroid gland. Right IJ catheter terminating at the cavoatrial junction. Adrenal glands unremarkable in shape. Perisplenic hematoma. Interval postsurgical changes in the right upper quadrant of the abdomen. There appears to be surgicel/gaseous collection within the previous hematoma cavity, likely representing surgicel. There is a radiopaque density within the resection cavity as well which measures 6.2 x 4.6 cm.. Postoperative changes of the right anterior abdomen with soft tissue emphysema. Small amount of pneumoperitoneum Surgical drainage catheter terminating in the right upper quadrant of the abdomen Right renal parenchymal atrophy. Left kidney demonstrates perinephric edema / stranding. No left hydronephrosis. Nasogastric tube projects towards the distal stomach. Moderate distention small bowel loops. Rectal catheter. Moderate distention of the large bowel loops. Normal appendix. Abdominal aorta normal in caliber. Small amount of ascites fluid/ mesenteric edema. Bladder decompressed by Mora catheter. Soft tissue edema /anasarca. Mesenteric edema. Small amount of ascites fluid. The osseous structures are stable. IMPRESSION: Limited evaluation without contrast. Interval evacuation of the right upper quadrant hematoma. Surgicel within the resection cavity. No significant interval development of new hematoma. There are 2 radiopaque lap pads within the resection cavity . Findings reviewed with Dr. Ledesma at 11:51 a.m. on 01/30/2025 Perisplenic hematoma, similar to previous examination. Extensive bilateral pulmonary airspace consolidation, significantly increased from previous examination. Small bilateral pleural effusions. Right upper quadrant drainage catheter. Pneumoperitoneum. Soft tissue edema / anasarca. Small amount of ascites fluid/ mesenteric edema. Extensive edema within the anterior chest, neck region. Heterogeneous appearance thyroid gland. Other findings as described. CT of the head revealed: IMPRESSION: 1. No evidence of acute intracranial abnormality. Repeat CT of head revealed: FINDINGS: Cerebellar tonsilar herniation. There is sulcal and ventricular effacement. The basal cisterns are effaced. Loss of mario-white matter differentiation is noted. The skull and visible facial bones are intact. The paranasal sinuses, mastoid air cells and middle ear cavities are well-aerated. The soft tissues of the scalp are unremarkable. IMPRESSION: Diffuse cerebral edema with cerebellar tonsillar herniation. Recommend MRI brain for further evaluation. CT of Neck revealed: IMPRESSION: Limited evaluation without contrast. Extensive soft tissue edema within the neck extending into the anterior / upper chest and anterior mediastinum . Retropharyngeal edema. Heterogeneous appearance of the thyroid gland. Inferior cerebellar tonsillar herniation better seen on the prior CT Renal Ultrasound revealed: IMPRESSION: 1. Right kidney not visible. 2. Left kidney is enlarged. 3. No hydronephrosis. Venous duplex of lower ext revealed: IMPRESSION: NO SONOGRAPHIC EVIDENCE FOR DEEP VENOUS THROMBOSIS IN THE RIGHT LOWER EXTREMITY VEINS. Arrival EKG revealed sinus tachycardia with nonspecific ST-T changes Tele reveals sinus tachycardia Echocardiogram revealed: Technically limited study secondary to poor acoustic windows. Left ventricle: Left ventricle was normal-sized with normal systolic function. LVEF was 55-60%. No gross wall motion abnormality was seen. Right ventricle was mildly dilated with normal systolic function. Left atrium was normal-sized. Right atrium was mildly dilated. Aortic valve: Aortic valve was not well visualized. There was no aortic insufficiency/stenosis. There was no mitral regurgitation. There was trace tricuspid regurgitation. Pulmonary valve was not well visualized. IVC was not visualized. Right ventricular systolic pressure was assessed around 48 mm Hg. There was no pericardial effusion. Patient is a 24-year-old gentleman who presented with post arrest. It seems that the patient had hemorrhagic (intra-abdominal) presentation. Patient did have elective laparoscopic cholecystectomy the day before presentation. On the day of presentation, the patient was taken back to operating room and this time Laparotomy was done for hepatic hematoma. Patient does have multiorgan involvement. Clinically there is no brainstem reflexes. Shock liver/acute renal failure is considered. Troponin has been high. EKG did not reveal any STEMI. Presentation could be high troponin secondary to demand physiology. Patient does not have any risk factors for baseline coronary artery disease. In ideal scenario, ischemic workup/cardiac catheterization could be more revealing. Unfortunately, the patient does have acute renal failure which could be worsened by cardiac catheterization at this point. As there was no higher brain functions the suggestion is to wait and see if patient regains any higher brain function. It is of note that during cardiac catheterization, the patient may need some anticoagulation/antiplatelets. At this point patient is having significant anemia/bleeding and receiving blood transfusion and holding off of scenario forcing Anticoagulation/antiplatelets is advised. I had a long discussion with family members and Mother (repeatedly). They also want to wait before any repeat invasive evaluation/management. Clinically patient has multiorgan failure. Secondary to active bleeding, we will avoid anticoagulation/antiplatelets for now. Being managed in ICU. Was taken to OR again. Still no reflexes. Echocardiogram revealed no WMA and also revealed good EF. It also revealed increased Pulmonary Artery Pressure in favor of component of Pulmonary Hypertension. Review of Echo images revealed good right ventricular systolic function. Not typical for Pulmonary Emboli. Still, PE cannot be ruled out. If PE is ruled out, then it is possible that patient had Pulmonary Hypertension from before (Baseline history of Asthma may actually reflect it). s/p PRBC transfusion (multiple). Being followed by Surgery, Nephrology, Hematology and GI. Primary team is managing the pulmonary issues. Repeat imaging revealed cerebellar tonsillar herniation. Patient is being followed by Neurology also. Neurology diagnosed Hypoxic/Metabolic Encephalopathy also. s/ p Arrest Intra-abdominal bleeding Hepatic hematoma Multiorgan failure, due to shock Shock liver Lactic Acidosis Acute renal failure Acute respiratory failure, on vent support Status post laparotomy Status post laparoscopic cholecystectomy Abnormal troponin, evaluated to reflect possible demand physiology History of gallstones History of asthma Obesity History of marijuana abuse Consumptive Coagulopathy / DIC Pulmonary Hypertension Cerebellar tonsillar Herniation. Cardiac suggestion for management: Manage in ICU Pressure support (patient on Levophed/vasopressor at the time) Follow-up electrolytes and kidney function tests and correct abnormalities Evaluation and management of respiratory failure as per primary team/Pulmonary Evaluation and management of Cerebellar tonsillar herniation as per Neurology/surgery V/Q scan is suggested. Neurology follow up Echocardiogram revealed no WMA and also revealed good EF. It also revealed increased Pulmonary Artery Pressure in favor of component of Pulmonary Hypertension. Hematology follow up (to comment on prophylaxis / treatment of Pulmonary Emboli) Surgical follow up Nephrology (may need dialysis) and Hematology follow up Secondary to active bleeding, we will avoid anticoagulation/antiplatelets for now Long-term prognosis depends on the above and most importantly regaining of the higher brain function Ischemic workup may be considered only after regaining higher brain function or any special change in clinical presentation Further evaluation and management depends on the above and clinical course A total of 75 minutes was spent reviewing the patient record, examining the patient, making a diagnostic and therapeutic plan, discussing this plan with medical personnel, following up on diagnostic studies and following the patient for clinical stability excluding any and all procedures. At least 50% of this time was spent in direct, [id number] contact. Thank you for allowing me to participate in this patient's care. Further recommendations will depend on patient's clinical course. Please do not hesitate to contact me if you have any questions or concerns. This medical document was created using electronic medical record system with [employer] computerized dictation system. Although this document has been carefully reviewed, there may still be some phonetic and typographical errors. These areas are purely typographical due to the imperfection of the software programs, and do not reflect any compromise in the patient's medical care. Plan discussed with: Other (nurse, mother at bedside) KATHLEEN COHEN MD Jan 31, 2025 10:04
[2025-01-31] MEDS: PHYTONADIONE (VIT K)10 MG/ML 1ML VIAL SUBCUT ONE (10:19)
--- NOTE | 2025-01-31 11:26 | DVHPN2 ---
Progress Note Date Seen: Jan 31, 2025 Has the PT tested + for MRSA If YES, has PT been informed?: No Medical Necessity Reason Pt with a Central, PICC or Fol: Yes The following are medically ne: Central Line, Mora Catheter Reason for mora catheter: Nakul. Abd Surgery Subjective Patient reports: Other (Patient remains intubated mother is bedside) Review of Systems: Deferred Objective vital signs Vital Sign Date Time Temp Pulse Resp B/P (MAP) Pulse Ox O2 Delivery O2 Flow Rate FiO2 01/31/25 09:30 125 22 120/83 (95) 100 30 01/31/25 07:30 97.0 97.0 01/31/25 06:00 Mechanical Ventilator+ Total Intake and Output 01/30/25 01/30/25 01/31/25 15:00 23:00 07:00 Intake Total 1480.00 ml 1002.00 ml 1337.75 ml Output Total 515 ml 610 ml Balance 1480.00 ml 487.00 ml 727.75 ml medications Current Medications Medications Dose Ordered Sig/Serenity Route Start Time Stop Time Status Last Admin Dose Admin Norepinephrine Bitartrate 250 ml @ 3.75 mls/hr Q24H IV 01/29/25 10:00 01/31/25 02:20 30 MLS/HR Midazolam HCl 50 ml @ 1 mls/hr Q24H IV 01/29/25 14:15 01/29/25 15:56 5 MLS/HR Fentanyl Citrate 250 ml @ 2.5 mls/hr Q24H IV 01/29/25 14:15 Piperacillin Sod/ Tazobactam Sod 100 ml @ 25 mls/hr Q12HR IV 01/29/25 22:00 01/31/25 10:20 25 MLS/HR Pantoprazole Sodium 40 mg DAILY IV 01/30/25 10:00 01/31/25 10:19 40 MG Phenylephrine HCl 250 ml @ 30 mls/hr Q8H20M IV 01/29/25 19:30 01/30/25 01:39 116.25 MLS/HR Levalbuterol HCl 0.625 mg Q4HR PRN NEB 01/29/25 20:00 01/30/25 00:08 0.625 MG Ipratropium [place] 0.5 mg Q4HPRN PRN NEB 01/29/25 20:00 01/30/25 00:08 0.5 MG Epinephrine HCl 250 ml @ 7.5 mls/hr Q24H IV 01/30/25 00:15 Vasopressin 20 units/Sodium Chloride 100 ml @ 9 mls/hr Q11H7M IV 01/30/25 07:30 01/30/25 07:30 9 MLS/HR Bumetanide 12.5 mg/Miscellaneous 50 ml @ 4 mls/hr [id number] IV 01/30/25 16:15 01/31/25 00:34 4 MLS/HR Examination: GENERAL:Abnormal, LUNGS:Abnormal, MSK:Abnormal, NEURO:Abnormal laboratory and microbiology Laboratory Tests 01/31/25 03:53 Test 01/31/25 03:53 Range/Units Serum Glucose 176 #H 74-106 mg/dL Microbiology Date/Time Source Procedure Growth Status 01/29/25 10:49 Blood Blood Culture - Preliminary NO GROWTH AFTER 48 HOURS OF INCUBATION. Resulted 01/29/25 10:43 Sputum Gram Stain - Final Resulted 01/29/25 10:43 Sputum Respiratory Culture - Preliminary Resulted Problem List/Assessment/Plan Problem List/Assessment/Plan Acute kidney injury likely ischemic ATN in the setting of shock, FeNa > 2%, nonoliguric Acute respiratory failure, intubated on ventilator Status post cardiac arrest Hyperkalemia secondary to above Metabolic acidosis anion gap secondary to lactic acidosis secondary to reduced perfusion from hemorrhage Hemodynamic shock from bleeding Acute blood loss anemia/post op Status post laparoscopic cholecystectomy on 01/28/25 [facility] Status post ex lap, 01/29 Positive troponins NSTEMI--likely demand ischemia Shock liver Hypokalemia Recommendations Kidney function worsened today Past 24 hours 850 cc urine output around 200 MN from this morning Mora catheter strict I&Os DC bicarb drip,continue diuretics Remains nonoliguric CT scan showing brain herniation--evaluate [employer] needs daily although futile family wants to do everything Plan discussed with: Other Critical Care Time (mins): 50 SILVIA NOONAN MD Jan 31, 2025 11:26
--- NOTE | 2025-01-31 13:26 | DVHPNRES ---
Progress Note Date Seen: Jan 31, 2025 Resident Creating Document: BLANQUITA DAVILA RESIDENT Has the PT tested + for MRSA If YES, has PT been informed?: No Medical Necessity Reason Pt with a Central, PICC or Fol: Yes The following are medically ne: Central Line, Mora Catheter Reason for mora catheter: Nakul. Abd Surgery Subjective Review of Systems This is a 24-year-old male without any significant past medical history, who underwent an elective outpatient laparoscopic cholecystectomy yesterday at [facility] for right upper quadrant pain and cholelithiasis. Postoperative period was uneventful and the patient was discharged around 1:00 p.m. in the afternoon. To the mother the patient was very lethargic but was able to eat p.o. intake. She noticed around 2:00 a.m. in the morning that her son was progressively very lethargic and 8 3:00 a.m. approximately in the morning patient became unresponsive. Mother perform CPR in the field until the EMS arrived and they brought the patient to the [facility] ER for further evaluation. In the ED CT abdomen pelvis without contrast revealed a hepatic hematoma measuring 8.6 cm with hemorrhage extending beyond the liver capsule into the right paracolic gutter as well as the pelvis. The patient was emergently taken back to the surgery by Dr. Ledesma at 4:30 p.m. in the afternoon. There was an evacuation of a large hemoperitoneum and subsequently admitted to ICU. Patient was seen and examined on the bedside. He is on mechanical ventilation with FiO2 30%, tidal volume 500 mL, peep 5, RR 16. Currently the patient is on Levophed and vasopressin . CT head without contrast showed Diffuse cerebral edema with cerebellar tonsillar herniation. Dr. Zafar discussed the brain CT scan findings and explained that the clinical prognosis was confirmed/concordant with the CT scan findings. They were made aware that his prognosis is extremely poor with regards to survival or even meaningful recovery. MRI of brain not necessary per Dr. Guillen. The patient's mother was made of the high possibility of given tonsillar herniation. She wants to pursue all measure and options. she is very adventist and have nicko that her son will come back The patient has 400 mL urine output in last 12 hours, BUN ,creatinine going up. Nephrology will monitor kidney function 1 more days and if needed will start dialysis from tomorrow. Objective vital signs Vital Sign Date Time Temp Pulse Resp B/P (MAP) Pulse Ox O2 Delivery O2 Flow Rate FiO2 01/31/25 12:20 102/73 01/31/25 11:23 125 22 95 30 01/31/25 07:30 97.0 97.0 01/31/25 06:00 Mechanical Ventilator+ Total Intake and Output 01/30/25 01/30/25 01/31/25 15:00 23:00 07:00 Intake Total 1480.00 ml 1002.00 ml 1337.75 ml Output Total 515 ml 610 ml Balance 1480.00 ml 487.00 ml 727.75 ml medications Current Medications Medications Dose Ordered Sig/Serentiy Route Start Time Stop Time Status Last Admin Dose Admin Norepinephrine Bitartrate 250 ml @ 3.75 mls/hr Q24H IV 01/29/25 10:00 01/31/25 02:20 30 MLS/HR Midazolam HCl 50 ml @ 1 mls/hr Q24H IV 01/29/25 14:15 01/29/25 15:56 5 MLS/HR Fentanyl Citrate 250 ml @ 2.5 mls/hr Q24H IV 01/29/25 14:15 Piperacillin Sod/ Tazobactam Sod 100 ml @ 25 mls/hr Q12HR IV 01/29/25 22:00 01/31/25 10:20 25 MLS/HR Pantoprazole Sodium 40 mg DAILY IV 01/30/25 10:00 01/31/25 10:19 40 MG Phenylephrine HCl 250 ml @ 30 mls/hr Q8H20M IV 01/29/25 19:30 01/30/25 01:39 116.25 MLS/HR Levalbuterol HCl 0.625 mg Q4HR PRN NEB 01/29/25 20:00 01/30/25 00:08 0.625 MG Ipratropium [place] 0.5 mg Q4HPRN PRN NEB 01/29/25 20:00 01/30/25 00:08 0.5 MG Epinephrine HCl 250 ml @ 7.5 mls/hr Q24H IV 01/30/25 00:15 Vasopressin 20 units/Sodium Chloride 100 ml @ 9 mls/hr Q11H7M IV 01/30/25 07:30 01/30/25 07:30 9 MLS/HR Bumetanide 12.5 mg/Miscellaneous 50 ml @ 4 mls/hr [id number] IV 01/30/25 16:15 01/31/25 12:20 4 MLS/HR Examination Exam General: RASS -3, afebrile, mucosae are moist Cardiovascular: Normal S1 and S2. No murmurs, gallops or rubs Respiratory: Soft tissue edema around the neck, Mechanically assisted ventilation, equal bilateral airway entree. Clear lung sounds on auscultation Abdomen: Soft, nontender, no organomegaly, bowel sounds absent MSK/skin: Mobilization of limbs cannot be evaluated. Skin is dry and warm. Neurological: Orientation cannot be assessed. No apparent motor no sensitive deficits. Absent gag reflex, Pupils are dilated and nonreactive laboratory and microbiology Laboratory Tests 01/31/25 03:53 Test 01/31/25 03:53 Range/Units Serum Glucose 176 #H 74-106 mg/dL Microbiology Date/Time Source Procedure Growth Status 01/29/25 10:49 Blood Blood Culture - Preliminary NO GROWTH AFTER 48 HOURS OF INCUBATION. Resulted 01/29/25 10:43 Sputum Gram Stain - Final Resulted 01/29/25 10:43 Sputum Respiratory Culture - Preliminary Resulted Labs and/or images reviewed: Labs reviewed by me, Image(s) reviewed by me Problem List/Assessment/Plan Problem List/Assessment/Plan Assessment and plan: NEURO: Status post cardiac arrest On mechanical ventilation Possible anoxic brain injury RASS score: -3 CT head without contrast demonstrated no evidence of acute intracranial abnormality. CARDIOVASCULAR: NSTEMI possible type 2 Hypovolemic shock - cardiology on board - Due to recent active bleeding patient is not a suitable candidate for antiplatelet/anticoagulant and has multiorgan failure and coronary angiogram is not possible right now - Pending echo - EKG revealed sinus tachycardia - troponin trends were [id number] PULMONARY: Acute hypoxic respiratory failure on mechanical ventilation - Cxr showed bilateral mild pulmonary vascular congestion GASTROINTESTINAL: Acute transaminitis secondary to hypovolemic shock Coagulopathy Hypoalbuminemia Status post laparoscopic cholecystectomy Status post exploratory laparotomy for hemoperitoneum - CT abdomen pelvis without contrast demonstrated Hepatic hematoma measuring up to approximately 8.6 cm in greatest dimension, as described above, with hemorrhage extending beyond the liver capsule and into the right pericolic gutter as well as into the pelvis. Postsurgical changes of cholecystectomy.Dilated fluid-filled small bowel loops, may be due to postoperative ileus. No small bowel obstruction. Small volume pneumoperitoneum, likely due to recent surgery. Small volume of gas are seen in the upper ventral abdomen from the recent surgery. - Received 3 units of PRBC, 2 units of FFP and 1 unit of cryoprecipitate - GI on board GENITOURINARY: HARLEEN secondary to hypovolemic shock - Nephrology on board - IV Bumex drip - Renal ultrasound showed atrophic right kidney, enlarged left kidney and no evidence of hydronephrosis. - continue vasopressor - strict I&O METABOLIC: Severe anion gap metabolic acidosis due to lactic acidosis Hypernatremia Grade 2 obesity, BMI 35.7 kg per m2 Hypoglycemia HEME: Acute blood loss anemia - Received 3 units of PRBC, 2 units of FFP and 1 unit of cryoprecipitate - Monitor H&H INFECTIOUS DISEASE: Leucocytosis Lactic acidosis - cultures are pending - IV Zosyn 3.375 g Q 8 hours DIET: NPO DVT prophylax: Hold GI prophylaxis: Protonix Bowel regimen: Code status: Full code LINES/DRAINS/ACCESS: ETT: Intubated on 01/29/25 IV access: Lt IJ placed on 01/29/25 Drips: Levophed, vasopressin, Versed, fentanyl, bicarb drip Mora catheter: Placed on DISPOSITION: ICU Patient's status discussed with Rishabh, special needs caregiver time spent more than 83 minutes, including patient care, chart review, and updating the family. Excluding any procedures. Case discussed with Dr. Juarez Plan discussed with: Other (Mom, brother, RN) My Orders My Orders Orders - BLANQUITA DAVILA Procedure Category Date Status Time Abg W/ Co-Ox RT 01/31/25 Logged 06:00 Ventilator Orders RT 01/31/25 Transmitted 08:50 Date of Service: Jan 31, 2025 Billing Provider: WILL JUAREZ MD Common Visit Codes: NOT BILLABLE BLANQUITA DAVILA Jan 31, 2025 13:26 WILL JUAREZ MD Feb 27, 2025 16:23
[2025-01-31 15:18] LABS: Base Excess 0.4 mmol/L (-2.0-3.0)
--- NOTE | 2025-01-31 15:58 | DVHPN2 ---
Progress Note Date Seen: Jan 31, 2025 Has the PT tested + for MRSA If YES, has PT been informed?: No Medical Necessity Reason Pt with a Central, PICC or Fol: Yes The following are medically ne: Central Line, Mora Catheter Reason for mora catheter: Nakul. Abd Surgery Subjective Review of Systems Pt was seen at 6 AM mother and brother at the room. Sister on the telephone. Per RN this morning, Levo was decreased to 12 (it had been as high as 16 mcg/kg) and vasopressin remained the same. He diuresed with Bumex and facial and neck swelling significantly improved. Labs were reviewed. Will repeat labs later today. I had a lengthy discussion with the family with regards to Derrek still remaining in a critical condition, in spite of small improvements. They are aware that his organ/systems may improve. However, if he survives, it would be unlikely he would gain meaningful neurological recovery, remaining in a coma. They understand and are aware. They have a strong nicko and buddhist beliefs. Mother states he is a fighter and he will get through this. His family still wish to pursue with full code and treatment, including removal of packing which is scheduled for Monday. The patient's family have expressed their gratitude towards the attention, care and services received from all physician's and hospital staff. Only expressed discontent with the delivery of news from the neurologist. They were aware of the findings, they were mainly upset with this approach. I explained to them that I know Dr. 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 He is a kind hearted physician and it could perhaps be a cultural difference. However, I understand the family's concern and I have explained that in this area we are limited with certain specialists, and unfortunately, we don't have an option for a second opinion. They expresed understanding and are appreciative of my presence, service, time and attention. Earlier today Dr. Hernandes inquired about the previously ordered VQ scan. RN stated she called nuclear medicine department and it can't be done because the patient is intubated. It is to be noted he is also hemodynamically unstable on vasopressor support. Patient's sister inquired about VQ scan. They have been informed it can't be done. She asked what could be the consequences of an untreated PE. They were made aware that it could cause his demise if untreated. She then asked if he could be treated for it. I explained to her that I would not recommend pursuing empiric treatment for PE in the current setting. It would be something it could be considered if confirmed, but after the removal of packing and if it does not worsen other systems, particularly from the neurology standpoint. Current shift RN has come down on the Levophed to 10 mcg. HR has been less than 120. He continues diuresing. Objective vital signs Vital Sign Date Time Temp Pulse Resp B/P (MAP) Pulse Ox O2 Delivery O2 Flow Rate FiO2 01/31/25 14:30 116 22 100/69 (79) 95 105/63 (77) 01/31/25 13:37 30 01/31/25 12:00 97.2 97.2 01/31/25 08:15 Mechanical Ventilator+ Total Intake and Output 01/30/25 01/30/25 01/31/25 15:00 23:00 07:00 Intake Total 1480.00 ml 1002.00 ml 1337.75 ml Output Total 515 ml 610 ml Balance 1480.00 ml 487.00 ml 727.75 ml medications Current Medications Medications Dose Ordered Sig/Serenity Route Start Time Stop Time Status Last Admin Dose Admin Norepinephrine Bitartrate 250 ml @ 3.75 mls/hr Q24H IV 01/29/25 10:00 01/31/25 14:17 18.75 MLS/HR Midazolam HCl 50 ml @ 1 mls/hr Q24H IV 01/29/25 14:15 01/29/25 15:56 5 MLS/HR Fentanyl Citrate 250 ml @ 2.5 mls/hr Q24H IV 01/29/25 14:15 Piperacillin Sod/ Tazobactam Sod 100 ml @ 25 mls/hr Q12HR IV 01/29/25 22:00 01/31/25 10:20 25 MLS/HR Pantoprazole Sodium 40 mg DAILY IV 01/30/25 10:00 01/31/25 10:19 40 MG Phenylephrine HCl 250 ml @ 30 mls/hr Q8H20M IV 01/29/25 19:30 01/30/25 01:39 116.25 MLS/HR Levalbuterol HCl 0.625 mg Q4HR PRN NEB 01/29/25 20:00 01/30/25 00:08 0.625 MG Ipratropium [place] 0.5 mg Q4HPRN PRN NEB 01/29/25 20:00 01/30/25 00:08 0.5 MG Epinephrine HCl 250 ml @ 7.5 mls/hr Q24H IV 01/30/25 00:15 Vasopressin 20 units/Sodium Chloride 100 ml @ 9 mls/hr Q11H7M IV 01/30/25 07:30 01/30/25 07:30 9 MLS/HR Bumetanide 12.5 mg/Miscellaneous 50 ml @ 4 mls/hr [id number] IV 01/30/25 16:15 01/31/25 12:20 4 MLS/HR Examination Neuro. Per RN unchanged. Eyes taped. CV. Tachycardic 110s and hypotensive. Hemodynamically unstable on vasopressor support. Levophed and Vasopressin. A line and BP cuff are now correlating. Pulmonary: Intubated with mechanical ventilator support. 550/26/40%/+5. GI: Soft, obese, distended and non tender. Incision C/D/I. Drain with serosanguineous fluid. OGT in place. Small amount of bilious fluid within collection canister. . Mora catheter in place. Improving UO Extremities; No edema. SCD in place. Resolved facial and neck edema. laboratory and microbiology Laboratory Tests 01/31/25 03:53 Test 01/31/25 03:53 Range/Units Serum Glucose 176 #H 74-106 mg/dL Microbiology Date/Time Source Procedure Growth Status 01/30/25 00:00 Nose MRSA Screen - Final Complete 01/29/25 10:49 Blood Blood Culture - Preliminary NO GROWTH AFTER 48 HOURS OF INCUBATION. Resulted 01/29/25 10:43 Sputum Gram Stain - Final Resulted 01/29/25 10:43 Sputum Respiratory Culture - Preliminary Resulted Labs and/or images reviewed: Labs reviewed by me Problem List/Assessment/Plan Problems(with codes): (1) Cerebral edema (2) Tonsillar hernia into foramen magnum (3) Shock liver (4) Ventilator dependent (5) ARF (acute renal failure) (6) Coagulopathy (7) Hemorrhagic shock Problem List/Assessment/Plan Neuro: Dilated pupils, no gag reflex or response to painful stimuli. Appreciate neurology input and assistance. CT revealed Cerebral edema and tonsillar herniation. Poor prognosis. Pt too unstable for prolonged MRI study. Per neurology, no need ror MRI and surgical decompression not indicated. Patient's mother, sister, brother in law and brother aware of CT findings, limited treatment options and poor prognosis. CV: Hemodynamic instability secondary to hemorrhagic shock,improving. Continue vasopressor support.Titrate as needed to maintain MAP 65. Decreasing vasopressor requirements. Elevated troponin, likely secondary and/or worsened by hemodynamic stress and CPR. Can't rule out ischemia. Cardiology assistance appreciated. Mechanical DVT prophylaxis. Pulmonary: VDRF. Continue ventilator. Appreciate pulmonary medicine assistance. R/O PE. VQ scan can't be done. Can't consider CTA chest given ARF. GI: NPO. No TF given high vasopressor requirements. Possible TPN. Would have to discuss with nephrology. Continue GI prophylaxis. Hepatic shock. Improving transaminases. Appreciate GI assistance. . ARF secondary to hemorrhagic shock. Strict I&O. Mora to gravity. Improving metabolic acidosis. Gap is closing. Appreciate nephrology assistance. Replace/correct electrolytes, Bumex gtt and IVFs per nephrology. No HD for now anticipated. Heme/ID. Received TXA, PCC, 3 u PRBC. 3 FFP and 2 u Cryoprecipitate. Hemorrhagic shock and coagulopathy. Hgb 9, thrombocytopenia slightly elevated INR. Repeat labs PM. Appreciate hematology assistance. Doubt sepsis. Prophylactic antibiotics. Endocrine: Tight glycemic control. Skin :Skin care and pressure ulcer precautions. CT scan of the neck demonstrated edema. The CT chest edema and pulmonary infiltrates. CT of the of the abdomen and pelvis demonstrated no evidence of bleeding/hematoma, besides unchanged hemoperitoneum in the perisplenic region, intraabdominal packing and hemostatic agents (Surgiflo and Surgicel Snow). Patient's mother/ family still wish to pursue with all possible treatment options. They are aware that his condition still remains critical and prognosis is poor. Will proceed with full code and all treatment options available. Patient has been schedule for 2nd look laparotomy and removal of packing on Monday at 7 am. They are aware that intraoperative finding will dictate end result of the procedure. Patient's family questions have been answered. I spent approximately an hour this morning and 30-45 mins in the afternoon with the patient and his patient's family. RNs present as well Plan discussed with: Other (Pt's mother, brother, sister and RNs) My Orders My Orders Orders - JITENDRA ZAMORA MD Procedure Category Date Status Time Chest Portable XY 01/31/25 Resulted 04:55 Complete Blood Count LAB 01/31/25 Logged 16:00 Comprehensive LAB 01/31/25 Logged Metabolic Panel 16:00 PTPTT LAB 01/31/25 Logged 16:00 Prothrombin Time W/ LAB 01/31/25 Logged INR 16:00 Pheresis Platelets BBK 02/02/25 Logged 07:00 Frozen Plasma BBK 01/31/25 Logged 06:40 Type And Screen BBK 02/02/25 Logged 04:00 Fibrinogen LAB 01/31/25 Logged 16:00 Cvp Monitoring ED NURSING 01/31/25 Transmitted JITENDRA ZAMORA MD Jan 31, 2025 15:58
[2025-01-31 16:49] LABS: Hematocrit 27.1 % (41.0-53.0); Hemoglobin 9.2 g/dL (13.5-17.5); Mean Corpuscular Hemoglobin 29.5 pg (28.0-32.0); Mean Corpuscular Volume 87.1 fL (80.0-100.0); Nucleated Red Blood Cells % 0.3 %
[2025-01-31 17:01] LABS: Alkaline Phosphatase 116 U/L (46-116); Anion Gap 15 (5-15); BUN/Creatinine Ratio 7.9 (10.0-20.0); Carbon Dioxide 27 mmol/L (20-31); Chloride 101 mmol/L (98-107); Potassium 3.8 mmol/L (3.5-5.1); Sodium 143 mmol/L (136-145)
[2025-01-31 17:03] LABS: Fibrinogen 316.0 mg/dL (177-375); INR 1.41 (0.9-1.15); Partial Thromboplastin Time 36.2 SEC (24.5-34.5); Prothrombin Time 14.4 sec (9.3-11.8)
[2025-01-31 17:13] LABS: Alanine Aminotransferase 1990 U/L (7-40); Albumin 2.6 g/dL (3.2-4.8); Bilirubin, Total 2.9 mg/dL (0.2-1.0); Blood Urea Nitrogen 48 mg/dL (9-23); Calcium 6.5 mg/dL (8.7-10.4); Glucose 136 mg/dL (74-106); Total Protein 4.2 g/dL (5.7-8.2)
--- NOTE | 2025-01-31 23:57 | DVHPN2 ---
Progress Note - Dictate Date Seen: Jan 31, 2025 Has the PT tested + for MRSA If YES, has PT been informed?: No Medical Necessity Reason Pt with a Central, PICC or Fol: Yes The following are medically ne: Central Line, Mora Catheter Reason for mora catheter: Nakul. Abd Surgery Subjective Mr. Gillis is a 24 years old gentleman with a history of asthma, gallstone, obesity, the patient was brought to the [facility] on 01/29/2025 with a chief complaint of witnessed cardiopulmonary arrest. I have seen and examined the patient, I have discussed with his nurse, he is intubated, company nonresponsive to his surroundings, pupil is dilated and nonreactive, no gag reflexes UDS, 01/29/2025 1616: Fentanyl, benzo Urinalysis, 01/29/2025: WBC: 1, urine leukocyte esterase: Negative ABG, 01/29/2025: Metabolic acidosis, 01/30/25: Metabolic acidosis WBC/HB/PLT/MCV, 01/29/2025: 20.1/8.3/234/107.4. 01/30/2025: 28.4/12.1/127/91.2 PT/INR/PTT, 01/29/2025: 19.6/1.98/53.8. 01/30/2025: 13.6/1.32/28.7 Na 01/29/2025: 146, 152, 01/30/2025: 147 BUN/CR, 01/30/2025: 29/4.34 Lactic acid, 01/29/2025: 1749, 01/30/2025: 11.4 Troponin one high sensitivity, 01/29/2025: 2273, 4364, 7474 TBI/AST/ALT/AP, 01/29/2025: 1.3/676/700/136. 01/30/25: 2.10/4635/2521/137 CT head, 01/29/2025:No evidence of acute intracranial abnormality (I see signs suggestive of diffuse brain edema) CT abdomen, pelvis, 01/29/2025: 1. Hepatic hematoma measuring up to approximately 8.6 cm in greatest dimension, as described above, with hemorrhage extending beyond the liver capsule and into the right pericolic gutter as well as into the pelvis. No definite active arterial bleeding is seen on this exam, although limited evaluation due to the timing of contrast, as this was not a CTA exam. 2. Postsurgical changes of cholecystectomy. 3. Dilated fluid-filled small bowel loops, may be due to postoperative ileus. No small bowel obstruction. 4. Small volume pneumoperitoneum, likely due to recent surgery. Small volume of gas are seen in the upper ventral abdomen from the recent surgery. 5. Dependent atelectasis in the lower lobes. Otherwise, no acute disease in the chest. 6. Endotracheal tube and enteric tube in place. 7. Atrophic right kidney incidentally noted. 8. Additional findings as described above vital signs Vital Sign Date Time Temp Pulse Resp B/P (MAP) Pulse Ox O2 Delivery O2 Flow Rate FiO2 01/31/25 22:22 111 14 97/54 (68) 100 35 01/31/25 20:15 97.7 97.7 01/31/25 20:00 Mechanical Ventilator+ Total Intake and Output 01/30/25 01/30/25 01/31/25 15:00 23:00 07:00 Intake Total 1480.00 ml 1002.00 ml 1337.75 ml Output Total 515 ml 610 ml Balance 1480.00 ml 487.00 ml 727.75 ml medications Current Medications Medications Dose Ordered Sig/Serenity Route Start Time Stop Time Status Last Admin Dose Admin Norepinephrine Bitartrate 250 ml @ 3.75 mls/hr Q24H IV 01/29/25 10:00 01/31/25 14:17 18.75 MLS/HR Midazolam HCl 50 ml @ 1 mls/hr Q24H IV 01/29/25 14:15 01/29/25 15:56 5 MLS/HR Fentanyl Citrate 250 ml @ 2.5 mls/hr Q24H IV 01/29/25 14:15 Piperacillin Sod/ Tazobactam Sod 100 ml @ 25 mls/hr Q12HR IV 01/29/25 22:00 01/31/25 21:24 25 MLS/HR Pantoprazole Sodium 40 mg DAILY IV 01/30/25 10:00 01/31/25 10:19 40 MG Phenylephrine HCl 250 ml @ 30 mls/hr Q8H20M IV 01/29/25 19:30 01/30/25 01:39 116.25 MLS/HR Levalbuterol HCl 0.625 mg Q4HR PRN NEB 01/29/25 20:00 01/30/25 00:08 0.625 MG Ipratropium [place] 0.5 mg Q4HPRN PRN NEB 01/29/25 20:00 01/30/25 00:08 0.5 MG Epinephrine HCl 250 ml @ 7.5 mls/hr Q24H IV 01/30/25 00:15 Vasopressin 20 units/Sodium Chloride 100 ml @ 9 mls/hr Q11H7M IV 01/30/25 07:30 01/31/25 17:59 9 MLS/HR Bumetanide 12.5 mg/Miscellaneous 50 ml @ 4 mls/hr [id number] IV 01/30/25 16:15 01/31/25 12:20 4 MLS/HR objective The patient is well-nourished and well-developed with no distress, he has jaundice. The patient is intubated MENTAL STATUS: Subjective CRANIAL NERVES: Pupils are equal, round, dilated and fixed. There are no corneal reflexes, he has questionable doll's eyes phenomenon. No signs of facial weakness. There are no gagging or coughing reflexes SENSATION: No responses to pain stimuli. MOTOR: Normal tone in the upper and lower extremity. Normal muscle bulk. No fasciculations. No spontaneous movement. REFLEXES: Deep tendon reflexes are symmetrical. No pathological reflexes. CEREBELLAR/COORDINATION: Deferred GAIT/STATION: deferred. laboratory and microbiology Laboratory Tests 01/31/25 16:31 Test 01/31/25 16:31 Range/Units Serum Glucose 136 H 74-106 mg/dL Problem List Cardiopulmonary arrest Status post CPR Coma Hypoxic encephalopathy Metabolic encephalopathy Diffuse brain edema Brain herniation Hepatic hematoma Sepsis Septic shock Hypovolemic shock Liver failure Acute kidney failure Anemia Assessment/Plan Monitoring Supportive treatment Follow-up labs EEG Cerebral perfusion tests ICU care Respiratory support/vent management Stabilize vitals/pressor drip Oxygen IV antibiotics GI prophylaxis Surgery on case Hematology evaluation Cardiology evaluation Nephrology evaluation More recommendation per clinical course This medical document was created using an electronic medical record system with [employer] system. Although this document has been carefully reviewed, there may still be some phonetic and typographical errors. These areas are purely typographical due to imperfections of the software programs, and do not reflect any compromise in the patient's medical care. More recommendation per clinical course Prognosis guarded Plan discussed with: Other Critical Care Time(min): 35 ALONZO MILLARD MD Jan 31, 2025 23:57
[2025-02-01] VITALS (109 sets, daily range): BP systolic 80–152; BP diastolic 47–104; PULSE 77–115; RESP 10–15; TEMP 96.4–97.4; O2SAT 96–100
[2025-02-01 03:52] LABS: Hematocrit 26.8 % (41.0-53.0); Hemoglobin 9.1 g/dL (13.5-17.5); Mean Corpuscular Hemoglobin 30.5 pg (28.0-32.0); Mean Corpuscular Volume 89.6 fL (80.0-100.0); Nucleated Red Blood Cells % 0.3 %
[2025-02-01 04:02] LABS: INR 1.29 (0.9-1.15); Partial Thromboplastin Time 34.7 SEC (24.5-34.5); Prothrombin Time 13.3 sec (9.3-11.8)
[2025-02-01 04:04] LABS: Anion Gap 13 (5-15); BUN/Creatinine Ratio 7.6 (10.0-20.0); Carbon Dioxide 28 mmol/L (20-31); Chloride 102 mmol/L (98-107); Potassium 4.9 mmol/L (3.5-5.1); Sodium 143 mmol/L (136-145)
[2025-02-01 04:18] LABS: Alanine Aminotransferase 1821 U/L (7-40); Albumin 2.7 g/dL (3.2-4.8); Alkaline Phosphatase 127 U/L (46-116); Bilirubin, Total 2.4 mg/dL (0.2-1.0); Blood Urea Nitrogen 51 mg/dL (9-23); Calcium 6.7 mg/dL (8.7-10.4); Glucose 130 mg/dL (74-106); Total Protein 4.6 g/dL (5.7-8.2)
--- NOTE | 2025-02-01 05:32 | DVH ---
CHEST RADIOGRAPH Indication: MECHANICAL VENTILATION Technique: Single frontal view of the chest was obtained COMPARISON: XY CHEST PORTABLE on DOS: 01/31/25, XY CHEST PORTABLE on DOS: 01/30/25, XY CHEST PORTABLE o n DOS: 01/29/25, CT CT CHEST/AB/PL W CON- IV ONLY on DOS: 01/29/25, XY CHEST PORTABLE on DOS: 01/29/25 FINDINGS: Lines and Tubes: Slight interval retraction of the endotracheal tube such that the tip now projects a pproximately 4.7 cm above the level of the meghan. Remaining lines and tubes unchanged. Lungs: Persistently diminished lung volumes with concomitant crowding of the pulmonary vasculature. N o evidence of focal consolidation. Pleura: No definite effusion. No pneumothorax. Cardiomediastinal contours: Unremarkable Bones: Unremarkable IMPRESSION: 1. Slight interval retraction of the endotracheal tube such that the tip now projects approximately 4 .7 cm above the level of the meghan. Remaining lines and tubes unchanged. 2. Otherwise no significant change compared to prior exam.
--- NOTE | 2025-02-01 08:06 | DVHPN2 ---
Progress Note Date Seen: Feb 01, 2025 Has the PT tested + for MRSA If YES, has PT been informed?: No Medical Necessity Reason Pt with a Central, PICC or Fol: Yes The following are medically ne: Central Line, Mora Catheter Reason for mora catheter: Nakul. Abd Surgery Subjective Review of Systems Patient was seen earlier this morning. Per RN, mother was comfortable to go home to rest. No changes overnight except decreased u/o. Dr. Guillen requested brain perfusion study and EEG at the request of [facility], as patient is a registered organ donor. However, patient's mother still wants full care/full code. She has not been informed about the purpose the studies. I asked RN to hold the studies until I discuss the purpose of the tests, so she is aware. Per RN 100 mL from NGT. No BM. no facial or neck swelling or abdominal distention. Per RN present during Dr. Mack consultation, pt's mother had stated to Dr. Mack that the patient was having difficulty breathing throughout the night, nausea or vomiting which she had attributed to anesthesia or vomiting. This was verified with her today. She stated he asked her why he was breathing fast.She described the difficulty of breathing as breathing fast at around 10 or 11 PM. She asked him whether she should call an ambulance then. She attributed to the nausea or vomiting. She said he did not complaint of chest pain or pressure. His dressings were clean. No blood. She did not look for abdominal distention. She continues to ask nurses and has asked me a few times whether things would have been different should have she called sooner. She admitted to feeling guilty. I have asked her to please not think about that. Pt's mother witnessed foot twitching and neurologist had told her he had eye movements, she's is taking this as a positive neurologic sign.Per RN, neurologist was referring to "doll's eyes sign", which is not a positive sign and she is aware that the foot twitching was likely an involuntary movement. She remains strong in her nicko in spite of all and wants to continue with full care. RN's informed about the above mentioned information. Per patient's mother's request,l I called her. She feels better and got some rest. I have updated her with regards to his condition. She was made aware of the following. Neurological status hasn't changed, aware the prognosis for meaningful recovery is poor. Accepted brain perfusion study and EEG. Hemodynamic status hasn't changed. Cardio stable within condition, still requiring support. Echo results discussed, mild mitral stenosis, elevated RVSP uncertain etiology but could be secondary to PE. Hence neighborhood aide requesting whether already ordered VQ scan could be done. Unfortunately VQ scan cannot be done secondary to patient's current clinical condition. Family aware empiric treatment for PE increases risk of bleeding, Stable pulmonary function with less support/requirement. GI stable, considering TPN, pending nephrology recommendation. No BM yet Can't be fed via GI tract yet secondary to ileus and still on pressors. Renal function worsening with decreased U/O, may need HD, pending nephrology recommendations. Heme/ID cultures negative, Hgb stable. Slightly decreased platelets, transfuse 1 Plts. 2FFP, 2 PRBC and 1 Plt on hold for tomorrow for packing removal. Stable coagulation parameters. At the end of the telephone conversation She asked if I could pray form him in his room. A prayer will be held in private with his RN (Martha). Objective vital signs Vital Sign Date Time Temp Pulse Resp B/P (MAP) Pulse Ox O2 Delivery O2 Flow Rate FiO2 02/01/25 06:11 110 14 115/72 (86) 100 30 02/01/25 06:00 96.4 96.4 02/01/25 06:00 Mechanical Ventilator+ Total Intake and Output 01/31/25 01/31/25 02/01/25 15:00 23:00 07:00 Intake Total 601.50 ml 254.00 ml 222.25 ml Output Total 525 ml 410 ml Balance 601.50 ml -271.00 ml -187.75 ml medications Current Medications Medications Dose Ordered Sig/Serenity Route Start Time Stop Time Status Last Admin Dose Admin Norepinephrine Bitartrate 250 ml @ 3.75 mls/hr Q24H IV 01/29/25 10:00 02/01/25 04:23 18.75 MLS/HR Midazolam HCl 50 ml @ 1 mls/hr Q24H IV 01/29/25 14:15 01/29/25 15:56 5 MLS/HR Fentanyl Citrate 250 ml @ 2.5 mls/hr Q24H IV 01/29/25 14:15 Piperacillin Sod/ Tazobactam Sod 100 ml @ 25 mls/hr Q12HR IV 01/29/25 22:00 01/31/25 21:24 25 MLS/HR Pantoprazole Sodium 40 mg DAILY IV 01/30/25 10:00 01/31/25 10:19 40 MG Phenylephrine HCl 250 ml @ 30 mls/hr Q8H20M IV 01/29/25 19:30 01/30/25 01:39 116.25 MLS/HR Levalbuterol HCl 0.625 mg Q4HR PRN NEB 01/29/25 20:00 01/30/25 00:08 0.625 MG Ipratropium Tracy 0.5 mg Q4HPRN PRN NEB 01/29/25 20:00 01/30/25 00:08 0.5 MG Epinephrine HCl 250 ml @ 7.5 mls/hr Q24H IV 01/30/25 00:15 Vasopressin 20 units/Sodium Chloride 100 ml @ 9 mls/hr Q11H7M IV 01/30/25 07:30 02/01/25 05:15 9 MLS/HR Bumetanide 12.5 mg/Miscellaneous 50 ml @ 4 mls/hr [id number] IV 01/30/25 16:15 02/01/25 03:24 4 MLS/HR Examination Neuro. Per RN unchanged. Eyes taped. CV. Tachycardic 110s and hypotensive. Hemodynamically unstable on vasopressor support. Levophed and Vasopressin unchanged dose. A line and BP cuff are now correlating. BP cuff on left leg Pulmonary: Intubated with mechanical ventilator support.500/14/30%/+7. GI: Soft, obese, distended and non tender. Incision C/D/I. Drain with serosanguineous fluid. OGT in place. 100mL of bilious fluid within collection canister. . Mora catheter in place. Decreased u/o Extremities; No edema. SCD removed for BP cuff. Requested replacement Resolved facial and neck edema. laboratory and microbiology Laboratory Tests 02/01/25 03:05 Test 02/01/25 03:05 Range/Units Serum Glucose 130 H 74-106 mg/dL Microbiology Date/Time Source Procedure Growth Status 01/30/25 00:00 Nose MRSA Screen - Final Complete 01/29/25 10:49 Blood Blood Culture - Preliminary NO GROWTH AFTER 48 HOURS OF INCUBATION. Resulted 01/29/25 10:43 Sputum Gram Stain - Final Resulted 01/29/25 10:43 Sputum Respiratory Culture - Preliminary Resulted Labs and/or images reviewed: Labs reviewed by me Problem List/Assessment/Plan Problems(with codes): (1) Hemorrhagic shock (2) Coagulopathy (3) ARF (acute renal failure) (4) Ventilator dependent (5) Shock liver (6) Tonsillar hernia into foramen magnum (7) Cerebral edema Problem List/Assessment/Plan Neuro: Appreciate neurology input and assistance. CT revealed Cerebral edema and tonsillar herniation. Poor prognosis. Pt too unstable for prolonged MRI study. Per neurology, no need for MRI and surgical decompression not indicated. Patient's mother, sister, brother in law and brother aware of CT findings, limited treatment options and poor prognosis.Brain studies ordered. Will discuss with patient's mother before proceeding. CV: Hemodynamic instability secondary to hemorrhagic shock,stable. Continue vasopressor support.Titrate as needed to maintain MAP 65. Decreasing vasopressor requirements. Elevated troponin, likely secondary and/or worsened by hemodynamic stress and CPR. Can't rule out ischemia. Cardiology assistance appreciated. Mechanical DVT prophylaxis. Pulmonary: VDRF. Continue ventilator. Appreciate pulmonary medicine assistance. R/O PE. VQ scan can't be done. Can't consider CTA chest given ARF. ETT 4 cm above meghan. Will defer to Pulmonary medicine GI: NPO. No TF given high vasopressor requirements. Possible TPN. will discuss with nephrology. Continue GI prophylaxis. Hepatic shock, improving. Improving transaminases. Appreciate GI assistance. . ARF secondary to hemorrhagic shock. worsening. May need HD. Awaiting nephrology recommendations. Strict I&O. Mora to gravity. Resolved metabolic acidosis. Appreciate nephrology assistance. Replace/correct electrolytes, Bumex gtt and IVFs per nephrology. Heme/ID. Received TXA, PCC, 3 u PRBC. 3 FFP and 2 u Cryoprecipitate. Hemorrhagic shock and coagulopathy. Hgb 9. Stable. proper response to PRBC transfusion given initial postoperative Hgb 6. Expected Hgb would be at 9, not 11 or 12. Thrombocytopenia, slight decrease, possible consumptive.Will transfuse 1 pack. Slightly elevated INR. Repeat labs PM. Appreciate hematology assistance. Cultures negative todate. Prophylactic antibiotics.1 pack of Plts, FFP and 2 u PRBC on hold in preparation for packing removal tomorrow. Endocrine: Tight glycemic control. Skin :Skin care and pressure ulcer precautions. CT scan of the neck demonstrated edema. The CT chest edema and pulmonary infiltrates. CT of the of the abdomen and pelvis demonstrated no evidence of bleeding/hematoma, besides unchanged hemoperitoneum in the perisplenic region, intraabdominal packing and hemostatic agents (Surgiflo and Surgicel Snow). Patient's mother/ family still wish to pursue with all possible treatment options. They are aware that his condition still remains critical and prognosis is poor. Will proceed with full code and all treatment options available. Patient has been schedule for 2nd look laparotomy and removal of packing on Monday at 7 am. They are aware that intraoperative finding will dictate end result of the procedure. Patient's family questions have been answered. I spent approximately 30-45 mins with the patient and RN Plan discussed with: Other (Mother and RNs) My Orders My Orders Orders - JITENDRA ZAMORA MD Procedure Category Date Status Time Pheresis Platelets K 02/02/25 Logged 07:00 Frozen Plasma K 01/31/25 Logged 06:40 Type And Screen K 02/02/25 Logged 04:00 Cvp Monitoring ED NURSING 01/31/25 Transmitted * Wound Consult CONS 01/31/25 Transmitted JITENDRA ZAMORA MD Feb 01, 2025 08:06
--- NOTE | 2025-02-01 09:05 | DVHPN2 ---
Progress Note - Dictate Date Seen: Feb 01, 2025 Has the PT tested + for MRSA If YES, has PT been informed?: No Medical Necessity Reason Pt with a Central, PICC or Fol: Yes The following are medically ne: Central Line, Mora Catheter Reason for mora catheter: Nakul. Abd Surgery vital signs Vital Sign Date Time Temp Pulse Resp B/P (MAP) Pulse Ox O2 Delivery O2 Flow Rate FiO2 02/01/25 08:16 109 14 116/75 (89) 98 30 02/01/25 06:00 96.4 96.4 02/01/25 06:00 Mechanical Ventilator+ Total Intake and Output 01/31/25 01/31/25 02/01/25 15:00 23:00 07:00 Intake Total 601.50 ml 254.00 ml 222.25 ml Output Total 525 ml 410 ml Balance 601.50 ml -271.00 ml -187.75 ml medications Current Medications Medications Dose Ordered Sig/Serenity Route Start Time Stop Time Status Last Admin Dose Admin Norepinephrine Bitartrate 250 ml @ 3.75 mls/hr Q24H IV 01/29/25 10:00 02/01/25 04:23 18.75 MLS/HR Midazolam HCl 50 ml @ 1 mls/hr Q24H IV 01/29/25 14:15 01/29/25 15:56 5 MLS/HR Fentanyl Citrate 250 ml @ 2.5 mls/hr Q24H IV 01/29/25 14:15 Piperacillin Sod/ Tazobactam Sod 100 ml @ 25 mls/hr Q12HR IV 01/29/25 22:00 01/31/25 21:24 25 MLS/HR Pantoprazole Sodium 40 mg DAILY IV 01/30/25 10:00 01/31/25 10:19 40 MG Phenylephrine HCl 250 ml @ 30 mls/hr Q8H20M IV 01/29/25 19:30 01/30/25 01:39 116.25 MLS/HR Levalbuterol HCl 0.625 mg Q4HR PRN NEB 01/29/25 20:00 01/30/25 00:08 0.625 MG Ipratropium Heidrick 0.5 mg Q4HPRN PRN NEB 01/29/25 20:00 01/30/25 00:08 0.5 MG Epinephrine HCl 250 ml @ 7.5 mls/hr Q24H IV 01/30/25 00:15 Vasopressin 20 units/Sodium Chloride 100 ml @ 9 mls/hr Q11H7M IV 01/30/25 07:30 02/01/25 05:15 9 MLS/HR Bumetanide 12.5 mg/Miscellaneous 50 ml @ 4 mls/hr [id number] IV 01/30/25 16:15 02/01/25 03:24 4 MLS/HR laboratory and microbiology Laboratory Tests 02/01/25 03:05 Test 02/01/25 03:05 Range/Units Serum Glucose 130 H 74-106 mg/dL Assessment/Plan Still being managed in ICU. Still intubated and on pressure and vent supports. Still no reflexes. Has been evaluated by Neurology: hypoxic/metabolic Encephalopathy Echocardiogram revealed no WMA and also revealed good EF. It also revealed increased Pulmonary Artery Pressure in favor of component of Pulmonary Hypertension. Has not been stable to go for V/Q scan. Kidney function has worsened. Patient is a 24-year-old gentleman who was originally brought to the hospital for post arrest. Patient is seen in postop area. Patient is intubated and on multiple pressor supports. Patient is not source of history. Information was obtained by reviewing the chart, talking to patient's family/mother and communicating with staff and reviewing outside records ([facility]). Patient did have elective outpatient laparoscopic cholecystectomy in [facility] on January 28 2025. As per mother, after going home, patient was feeling very hungry and was eating and drinking a lot. He started feeling abdominal pain with nausea at night and in the morning was short of breath. As per mother: patient has stopped breathing in the morning and family called 911. As per mother, as per guidance of 911, family started CPR until EMS arrived. Patient was intubated and was brought to the hospital by EMS. Since arrival to [facility], patient was seen by surgeon who took the patient to operating room and performed laparotomy (there was hepatic hematoma). Postoperatively, the patient has remained hypotensive. There is signs for multiorgan involvement. Patient was not alert and did not complain of any chest pains. Labs revealed increased troponin. Cardiology is involved for cardiac aspects of care and abnormal troponin. First available EKG reveals sinus tachycardia with no specific ST-T changes. Telemetry had revealed sinus tachycardia throughout the stay. Patient is found to have significant anemia and is receiving blood transfusion at the time of evaluation. It is of note that at the time of evaluation patient does not have any reflexes. Intubated. Mucosa pale. Scattered rhonchi in the lungs. Cardiac: Tachycardic. No murmur. Abdomen is covered by dressing. Extremities do not reveal any edema. Dorsalis pedis is 1+ bilateral. Pupils are not reflective to light. Patient does not respond to any painful stimuli Reported past medical history includes asthma and obesity. Reportedly, on January 23, 2025: Patient presented to [facility] for abdominal pain/nausea/vomiting. At that point the problems were ongoing for few weeks. In [facility], CT of the abdomen and MRCP were performed. Patient was seen by GI/surgery. Patient was found to have gallstones. Patient was discharged and later on January 28, 2025 presented back to [facility] for elective laparoscopy cholecystectomy. Patient was discharged home from [facility] after laparoscopic cholecystectomy. As per mother, patient does not have baseline history of any cardiac history. As per mother, patient was using marijuana. Mother denies any previous substance abuse besides marijuana. No specific family history is reported On January 23, 2025, labs in [facility] revealed creatinine of 0.84, hemoglobin of 15.2 and troponin (high sensitive) of <3. At that point EKG was normal WBC: 20.1 - 19.0 - 22.7 - 20.6 - 28.4 - 20.3 - 21.0 - 25.2 Hemoglobin: 8.3 - 6.5 - 12.1 - 11.1 - 12.1 - 9.3 - 9.2 - 9.1 Fibrinogen: 108 Creatinine: 4.02 - 3.78 - 3.90 - 3.95 - 4.34 - 5.44 - 6.05 - 6.73 Potassium: 5.6 - 4.6 - 4.8 - 3.9 - 2.9 - 2.9 - 3.6 - 3.8 - 4.9 AST/ALT: 676/700 - 0607/2055 - 2236/5301 - -/1995 - 2499/1989 - 1779/1820 Lactic acid: 17.9 - 17.2 - 11.4 Troponin (high sensitive): 2973 - 2712 - 4364 - 7493 - 7474 TSH: 11.05 Urine Toxicology: positive for Fentanyl and Benzodiazepine Chest x-ray revealed: Lines and Tubes: Endotracheal tube projects 2.2 cm above the meghan. Right internal jugular central venous catheter tip projects over superior vena cava. Lungs: No focal consolidation. Low lung volumes. Pleura: No effusion. No pneumothorax. Cardiomediastinal contours: Unremarkable Bones: No acute osseous abnormality. IMPRESSION: Lines and tubes as above. Low lung volumes. Repeat chest x-ray revealed: IMPRESSION: Lines and tubes in satisfactory position. Mild increased pulmonary vascular congestion Repeat chest xry revealed: IMPRESSION: Lines and tubes in satisfactory position. Mild increased pulmonary vascular congestion Repeat chest xry revealed: IMPRESSION: 1. Low lung volumes with concomitant crowding of the pulmonary vasculature. 2. No evidence of focal consolidation. 3. Lines and tubes unchanged. Repeat chest xry revealed: IMPRESSION: 1. Slight interval retraction of the endotracheal tube such that the tip now projects approximately 4.7 cm above the level of the meghan. Remaining lines and tubes unchanged. 2. Otherwise no significant change compared to prior exam. CT of the chest/abdomen/pelvis revealed: IMPRESSION: 1. Hepatic hematoma measuring up to approximately 8.6 cm in greatest dimension, as described above, with hemorrhage extending beyond the liver capsule and into the right pericolic gutter as well as into the pelvis. No definite active arterial bleeding is seen on this exam, although limited evaluation due to the timing of contrast, as this was not a CTA exam. 2. Postsurgical changes of cholecystectomy. 3. Dilated fluid-filled small bowel loops, may be due to postoperative ileus. No small bowel obstruction. 4. Small volume pneumoperitoneum, likely due to recent surgery. Small volume of gas are seen in the upper ventral abdomen from the recent surgery. 5. Dependent atelectasis in the lower lobes. Otherwise, no acute disease in the chest. 6. Endotracheal tube and enteric tube in place. 7. Atrophic right kidney incidentally noted. 8. Additional findings as described above. Critical findings Critical Result: Acute hepatic hematoma with hemorrhage extending beyond the liver capsule into the adjacent portions of the abdomen and into the pelvis as detailed above. Repeat CT of chest/abdomen/pelvis revealed: There is limited interpretation of the chest, abdomen and pelvis without administration of intravenous contrast. Endotracheal tube tip terminates just at the meghan / left main bronchus. Diffuse bilateral pulmonary airspace consolidation bilaterally significantly increased. Bilateral lower lobe lobar consolidation/ atelectasis, increased from prior. Small bilateral pleural effusions. There is extensive edema/ stranding within the upper anterior chest, neck region/supraclavicular region. There is some hyperdensity within this region which could represent components of hematoma / blood products. Heterogeneous appearance of the thyroid gland. Right IJ catheter terminating at the cavoatrial junction. Adrenal glands unremarkable in shape. Perisplenic hematoma. Interval postsurgical changes in the right upper quadrant of the abdomen. There appears to be surgicel/gaseous collection within the previous hematoma cavity, likely representing surgicel. There is a radiopaque density within the resection cavity as well which measures 6.2 x 4.6 cm.. Postoperative changes of the right anterior abdomen with soft tissue emphysema. Small amount of pneumoperitoneum Surgical drainage catheter terminating in the right upper quadrant of the abdomen Right renal parenchymal atrophy. Left kidney demonstrates perinephric edema / stranding. No left hydronephrosis. Nasogastric tube projects towards the distal stomach. Moderate distention small bowel loops. Rectal catheter. Moderate distention of the large bowel loops. Normal appendix. Abdominal aorta normal in caliber. Small amount of ascites fluid/ mesenteric edema. Bladder decompressed by Mora catheter. Soft tissue edema /anasarca. Mesenteric edema. Small amount of ascites fluid. The osseous structures are stable. IMPRESSION: Limited evaluation without contrast. Interval evacuation of the right upper quadrant hematoma. Surgicel within the resection cavity. No significant interval development of new hematoma. There are 2 radiopaque lap pads within the resection cavity . Findings reviewed with Dr. Ledesma at 11:51 a.m. on 01/30/2025 Perisplenic hematoma, similar to previous examination. Extensive bilateral pulmonary airspace consolidation, significantly increased from previous examination. Small bilateral pleural effusions. Right upper quadrant drainage catheter. Pneumoperitoneum. Soft tissue edema / anasarca. Small amount of ascites fluid/ mesenteric edema. Extensive edema within the anterior chest, neck region. Heterogeneous appearance thyroid gland. Other findings as described. CT of the head revealed: IMPRESSION: 1. No evidence of acute intracranial abnormality. Repeat CT of head revealed: FINDINGS: Cerebellar tonsilar herniation. There is sulcal and ventricular effacement. The basal cisterns are effaced. Loss of mario-white matter differentiation is noted. The skull and visible facial bones are intact. The paranasal sinuses, mastoid air cells and middle ear cavities are well-aerated. The soft tissues of the scalp are unremarkable. IMPRESSION: Diffuse cerebral edema with cerebellar tonsillar herniation. Recommend MRI brain for further evaluation. CT of Neck revealed: IMPRESSION: Limited evaluation without contrast. Extensive soft tissue edema within the neck extending into the anterior / upper chest and anterior mediastinum . Retropharyngeal edema. Heterogeneous appearance of the thyroid gland. Inferior cerebellar tonsillar herniation better seen on the prior CT Renal Ultrasound revealed: IMPRESSION: 1. Right kidney not visible. 2. Left kidney is enlarged. 3. No hydronephrosis. Venous duplex of lower ext revealed: IMPRESSION: NO SONOGRAPHIC EVIDENCE FOR DEEP VENOUS THROMBOSIS IN THE RIGHT LOWER EXTREMITY VEINS. Arrival EKG revealed sinus tachycardia with nonspecific ST-T changes Tele reveals sinus tachycardia Echocardiogram revealed: Technically limited study secondary to poor acoustic windows. Left ventricle: Left ventricle was normal-sized with normal systolic function. LVEF was 55-60%. No gross wall motion abnormality was seen. Right ventricle was mildly dilated with normal systolic function. Left atrium was normal-sized. Right atrium was mildly dilated. Aortic valve: Aortic valve was not well visualized. There was no aortic insufficiency/stenosis. There was no mitral regurgitation. There was trace tricuspid regurgitation. Pulmonary valve was not well visualized. IVC was not visualized. Right ventricular systolic pressure was assessed around 48 mm Hg. There was no pericardial effusion. Patient is a 24-year-old gentleman who presented with post arrest. It seems that the patient had hemorrhagic (intra-abdominal) presentation. Patient did have elective laparoscopic cholecystectomy the day before presentation. On the day of presentation, the patient was taken back to operating room and this time Laparotomy was done for hepatic hematoma. Patient does have multiorgan involvement. Clinically there is no brainstem reflexes. Shock liver/acute renal failure is considered. Troponin has been high. EKG did not reveal any STEMI. Presentation could be high troponin secondary to demand physiology. Patient does not have any risk factors for baseline coronary artery disease. In ideal scenario, ischemic workup/cardiac catheterization could be more revealing. Unfortunately, the patient does have acute renal failure which could be worsened by cardiac catheterization at this point. As there was no higher brain functions the suggestion is to wait and see if patient regains any higher brain function. It is of note that during cardiac catheterization, the patient may need some anticoagulation/antiplatelets. At this point patient is having significant anemia/bleeding and receiving blood transfusion and holding off of scenario forcing Anticoagulation/antiplatelets is advised. I had a long discussion with family members and Mother (repeatedly). They also want to wait before any repeat invasive evaluation/management. Clinically patient has multiorgan failure. Secondary to active bleeding, we will avoid anticoagulation/antiplatelets for now. Being managed in ICU. Was taken to OR again. Still no reflexes. Echocardiogram revealed no WMA and also revealed good EF. It also revealed increased Pulmonary Artery Pressure in favor of component of Pulmonary Hypertension. Review of Echo images revealed good right ventricular systolic function. Not typical for Pulmonary Emboli. Still, PE cannot be ruled out. If PE is ruled out, then it is possible that patient had Pulmonary Hypertension from before (Baseline history of Asthma may actually reflect it). s/p PRBC transfusion (multiple). Being followed by Surgery, Nephrology, Hematology and GI. Primary team is managing the pulmonary issues. Repeat imaging revealed cerebellar tonsillar herniation. Patient is being followed by Neurology also. Neurology diagnosed Hypoxic/Metabolic Encephalopathy also. s/ p Arrest Intra-abdominal bleeding Hepatic hematoma Multiorgan failure, due to shock Shock liver Lactic Acidosis Acute renal failure Acute respiratory failure, on vent support Status post laparotomy Status post laparoscopic cholecystectomy Abnormal troponin, evaluated to reflect possible demand physiology History of gallstones History of asthma Obesity History of marijuana abuse Consumptive Coagulopathy / DIC Pulmonary Hypertension Cerebellar tonsillar Herniation. Cardiac suggestion for management: Manage in ICU Pressure support (patient on Levophed/vasopressor at the time) Follow-up electrolytes and kidney function tests and correct abnormalities Evaluation and management of respiratory failure as per primary team/Pulmonary Evaluation and management of Cerebellar tonsillar herniation as per Neurology/surgery V/Q scan could not be completed Neurology follow up Echocardiogram revealed no WMA and also revealed good EF. It also revealed increased Pulmonary Artery Pressure in favor of component of Pulmonary Hypertension. Hematology follow up (to comment on prophylaxis / treatment of Pulmonary Emboli) Surgical follow up Nephrology (may need dialysis) and Hematology follow up Secondary to active bleeding, we will avoid anticoagulation/antiplatelets for now Long-term prognosis depends on the above and most importantly regaining of the higher brain function Ischemic workup may be considered only after regaining higher brain function or any special change in clinical presentation Further evaluation and management depends on the above and clinical course A total of 75 minutes was spent reviewing the patient record, examining the patient, making a diagnostic and therapeutic plan, discussing this plan with medical personnel, following up on diagnostic studies and following the patient for clinical stability excluding any and all procedures. At least 50% of this time was spent in direct, [id number] contact. Thank you for allowing me to participate in this patient's care. Further recommendations will depend on patient's clinical course. Please do not hesitate to contact me if you have any questions or concerns. This medical document was created using electronic medical record system with [employer] computerized dictation system. Although this document has been carefully reviewed, there may still be some phonetic and typographical errors. These areas are purely typographical due to the imperfection of the software programs, and do not reflect any compromise in the patient's medical care. Plan discussed with: Other (nurse) KATHLEEN COHEN MD Feb 01, 2025 09:05
[2025-02-01] MEDS ORDERED: TPN PER PHARMACY 0 ML IV SCH (11:15)
[2025-02-01] MEDS ORDERED: DEXTROSE (50%) 50ML SYRG IV SCH (12:30)
[2025-02-01 13:17] LABS: Magnesium 1.5 mg/dL (1.6-2.6)
[2025-02-01] MEDS: CALCIUM GLUC 1,000mg/50ml-NS 50 ML IV SCH (14:49)
[2025-02-01] MEDS: BUMETANIDE INJECTION 25 MG in GIVE UN-DILUTED 0 ML IV SCH (15:53)
[2025-02-01] MEDS: MAGNESIUM SULFATE 1GM/100ML 100 ML IV SCH (16:00)
--- NOTE | 2025-02-01 16:10 | DVHPN2 ---
Progress Note - Dictate Date Seen: Feb 01, 2025 Has the PT tested + for MRSA If YES, has PT been informed?: No Medical Necessity Reason Pt with a Central, PICC or Fol: Yes The following are medically ne: Central Line, Mora Catheter Reason for mora catheter: Nakul. Abd Surgery Subjective Mr. Gillis is a 24 years old gentleman with a history of asthma, gallstone, obesity, the patient was brought to the [facility] on 01/29/2025 with a chief complaint of witnessed cardiopulmonary arrest. I have seen and examined the patient, I have discussed with his nurse, he is intubated, nonresponsive to stroke painful stimuli, pupil is dilated and nonreactive, no gag reflexes On pressor drip Light happened meeting with the family, he mother stepmother, stepfather, brother and sister, discussed about his severe brain injury, and the likely poor prognosis for overall/meaningful recovery UDS, 01/29/2025 1616: Fentanyl, benzo Urinalysis, 01/29/2025: WBC: 1, urine leukocyte esterase: Negative ABG, 01/29/2025: Metabolic acidosis, 01/30/25: Metabolic acidosis WBC/HB/PLT/MCV, 01/29/2025: 20.1/8.3/234/107.4. 01/30/2025: 28.4/12.1/127/91.2 PT/INR/PTT, 01/29/2025: 19.6/1.98/53.8. 01/30/2025: 13.6/1.32/28.7 Na 01/29/2025: 146, 152, 01/30/2025: 147 BUN/CR, 01/30/2025: 29/4.34 Lactic acid, 01/29/2025: 1749, 01/30/2025: 11.4 Troponin one high sensitivity, 01/29/2025: 2273, 4364, 7474 TBI/AST/ALT/AP, 01/29/2025: 1.3/676/700/136. 01/30/25: 2.10/4635/2521/137 CT head, 01/29/2025:No evidence of acute intracranial abnormality (I see signs suggestive of diffuse brain edema) CT head 01/30/2025: Diffuse cerebral edema with cerebellar tonsillar herniation. Recommend MRI brain for further evaluation. Critical Result: above finding CT abdomen, pelvis, 01/29/2025: 1. Hepatic hematoma measuring up to approximately 8.6 cm in greatest dimension, as described above, with hemorrhage extending beyond the liver capsule and into the right pericolic gutter as well as into the pelvis. No definite active arterial bleeding is seen on this exam, although limited evaluation due to the timing of contrast, as this was not a CTA exam. 2. Postsurgical changes of cholecystectomy. 3. Dilated fluid-filled small bowel loops, may be due to postoperative ileus. No small bowel obstruction. 4. Small volume pneumoperitoneum, likely due to recent surgery. Small volume of gas are seen in the upper ventral abdomen from the recent surgery. 5. Dependent atelectasis in the lower lobes. Otherwise, no acute disease in the chest. 6. Endotracheal tube and enteric tube in place. 7. Atrophic right kidney incidentally noted. 8. Additional findings as described above vital signs Vital Sign Date Time Temp Pulse Resp B/P (MAP) Pulse Ox O2 Delivery O2 Flow Rate FiO2 02/01/25 15:53 122/80 02/01/25 15:27 77 14 30 02/01/25 14:08 98 02/01/25 13:22 97.0 97.0 02/01/25 06:00 Mechanical Ventilator+ Total Intake and Output 01/31/25 01/31/25 02/01/25 15:00 23:00 07:00 Intake Total 601.50 ml 254.00 ml 222.25 ml Output Total 525 ml 410 ml Balance 601.50 ml -271.00 ml -187.75 ml medications Current Medications Medications Dose Ordered Sig/Serenity Route Start Time Stop Time Status Last Admin Dose Admin Norepinephrine Bitartrate 250 ml @ 3.75 mls/hr Q24H IV 01/29/25 10:00 02/01/25 04:23 18.75 MLS/HR Midazolam HCl 50 ml @ 1 mls/hr Q24H IV 01/29/25 14:15 01/29/25 15:56 5 MLS/HR Fentanyl Citrate 250 ml @ 2.5 mls/hr Q24H IV 01/29/25 14:15 Piperacillin Sod/ Tazobactam Sod 100 ml @ 25 mls/hr Q12HR IV 01/29/25 22:00 02/01/25 11:24 25 MLS/HR Pantoprazole Sodium 40 mg DAILY IV 01/30/25 10:00 02/01/25 11:22 40 MG Phenylephrine HCl 250 ml @ 30 mls/hr Q8H20M IV 01/29/25 19:30 01/30/25 01:39 116.25 MLS/HR Levalbuterol HCl 0.625 mg Q4HR PRN NEB 01/29/25 20:00 01/30/25 00:08 0.625 MG Ipratropium [place] 0.5 mg Q4HPRN PRN NEB 01/29/25 20:00 01/30/25 00:08 0.5 MG Epinephrine HCl 250 ml @ 7.5 mls/hr Q24H IV 01/30/25 00:15 Vasopressin 20 units/Sodium Chloride 100 ml @ 9 mls/hr Q11H7M IV 01/30/25 07:30 02/01/25 11:21 9 MLS/HR Amino Acids 0 ml @ 0 mls/hr PER PHARMACY IV 02/01/25 11:15 Diagnostic Test (Pha) 1 strip Q6HR 02/01/25 18:00 Insulin Human Regular FOLLOW SLIDING SCALE Q6HR SC 02/01/25 18:00 Dextrose 50 ml UD IV 02/01/25 12:30 Magnesium Sulfate/ Dextrose 100 ml @ 100 mls/hr Q1HR IV 02/01/25 15:00 02/01/25 16:59 Calcium Gluconate 4.65 meq/ Magnesium Sulfate 16 meq/ Multivitamins 10 ml/Amino Acids/ Dextrose 824 ml @ 34 mls/hr [id number] IV 02/01/25 22:00 02/02/25 21:59 Bumetanide 25 mg/ Miscellaneous 100 ml @ 4 mls/hr Q24H IV 02/01/25 14:00 02/01/25 15:53 4 MLS/HR objective The patient is well-nourished and well-developed with no distress, he has jaundice. The patient is intubated MENTAL STATUS: Subjective CRANIAL NERVES: Pupils are equal, round, dilated and fixed. There are no corneal reflexes, he has questionable doll's eyes phenomenon. No signs of facial weakness. There are no gagging or coughing reflexes SENSATION: No responses to pain stimuli. MOTOR: Normal tone in the upper and lower extremity. Normal muscle bulk. No fasciculations. No spontaneous movement. REFLEXES: Deep tendon reflexes are symmetrical. No pathological reflexes. CEREBELLAR/COORDINATION: Deferred GAIT/STATION: deferred. laboratory and microbiology Laboratory Tests 02/01/25 03:05 Test 02/01/25 03:05 Range/Units Serum Glucose 130 H 74-106 mg/dL Problem List Cardiopulmonary arrest Status post CPR Coma Hypoxic encephalopathy Metabolic encephalopathy Diffuse brain edema Brain herniation Hepatic hematoma Sepsis Septic shock Hypovolemic shock Liver failure Acute kidney failure Anemia Assessment/Plan Monitoring Supportive treatment Follow-up labs EEG Cerebral perfusion tests ICU care Respiratory support/vent management Stabilize vitals/pressor drip Oxygen IV antibiotics GI prophylaxis Surgery on case Hematology evaluation Cardiology evaluation Nephrology evaluation More recommendation per clinical course This medical document was created using an electronic medical record system with Dinn[employer] dictation system. Although this document has been carefully reviewed, there may still be some phonetic and typographical errors. These areas are purely typographical due to imperfections of the software programs, and do not reflect any compromise in the patient's medical care. More recommendation per clinical course Prognosis Guarded Plan discussed with: Other Critical Care Time(min): 40 ALONZO MILLARD MD Feb 01, 2025 16:10
--- NOTE | 2025-02-01 16:31 | DVHEEG2 ---
Neurology EEG Procedural Note Procedural Note EXAM DATE: 02/01/2025 REFERRING DOCTOR: Dr. Millard TECHNIQUE: Eighteen channels of EEG, 2 channels of EOG, and 1 channel of EKG were recorded using the International 10/20 system. CLINICAL DATA: The patient was referred for an EEG evaluation for the evidence of seizure disorder. MEDICATIONS: Sedated chart BACKGROUND ACTIVITY: There was significant amount of environmental and electrode artifacts. This record showed low-amplitude mixed delta and theta activity that was not reactive to external stimuli ACTIVATION: Hyperventilation: Not done Photic Stimulation: Not done Sleep: Nonresponsiveness IMPRESSION: This is a remarkably abnormal EEG, this EEG seen in severe cerebral dysfunction due to metabolic/hypoxic encephalopathy or medication effects, unless this is caused by reversible etiology, this EEG is suggestive of a poor prognosis for meaningful recovery, please correlate clinically. The EKG channel showed a regular heart rate of 108 per minute. [place] [address] ALOZNO MILLARD MD Feb 01, 2025 16:31
--- NOTE | 2025-02-01 16:44 | DVHPN2 ---
Progress Note Date Seen: Feb 01, 2025 Has the PT tested + for MRSA If YES, has PT been informed?: No Medical Necessity Reason Pt with a Central, PICC or Fol: Yes The following are medically ne: Central Line, Mora Catheter Reason for mora catheter: Nakul. Abd Surgery Subjective Patient reports: Other (intubated) Review of Systems: Deferred Objective vital signs Vital Sign Date Time Temp Pulse Resp B/P (MAP) Pulse Ox O2 Delivery O2 Flow Rate FiO2 02/01/25 15:53 122/80 02/01/25 15:27 77 14 30 02/01/25 14:08 98 02/01/25 13:22 97.0 97.0 02/01/25 06:00 Mechanical Ventilator+ Total Intake and Output 01/31/25 01/31/25 02/01/25 15:00 23:00 07:00 Intake Total 601.50 ml 254.00 ml 222.25 ml Output Total 525 ml 410 ml Balance 601.50 ml -271.00 ml -187.75 ml medications Current Medications Medications Dose Ordered Sig/Serenity Route Start Time Stop Time Status Last Admin Dose Admin Norepinephrine Bitartrate 250 ml @ 3.75 mls/hr Q24H IV 01/29/25 10:00 02/01/25 04:23 18.75 MLS/HR Midazolam HCl 50 ml @ 1 mls/hr Q24H IV 01/29/25 14:15 01/29/25 15:56 5 MLS/HR Fentanyl Citrate 250 ml @ 2.5 mls/hr Q24H IV 01/29/25 14:15 Piperacillin Sod/ Tazobactam Sod 100 ml @ 25 mls/hr Q12HR IV 01/29/25 22:00 02/01/25 11:24 25 MLS/HR Pantoprazole Sodium 40 mg DAILY IV 01/30/25 10:00 02/01/25 11:22 40 MG Phenylephrine HCl 250 ml @ 30 mls/hr Q8H20M IV 01/29/25 19:30 01/30/25 01:39 116.25 MLS/HR Levalbuterol HCl 0.625 mg Q4HR PRN NEB 01/29/25 20:00 01/30/25 00:08 0.625 MG Ipratropium [place] 0.5 mg Q4HPRN PRN NEB 01/29/25 20:00 01/30/25 00:08 0.5 MG Epinephrine HCl 250 ml @ 7.5 mls/hr Q24H IV 01/30/25 00:15 Vasopressin 20 units/Sodium Chloride 100 ml @ 9 mls/hr Q11H7M IV 01/30/25 07:30 02/01/25 11:21 9 MLS/HR Amino Acids 0 ml @ 0 mls/hr PER PHARMACY IV 02/01/25 11:15 Diagnostic Test (Pha) 1 strip Q6HR 02/01/25 18:00 Insulin Human Regular FOLLOW SLIDING SCALE Q6HR SC 02/01/25 18:00 Dextrose 50 ml UD IV 02/01/25 12:30 Magnesium Sulfate/ Dextrose 100 ml @ 100 mls/hr Q1HR IV 02/01/25 15:00 02/01/25 16:59 Calcium Gluconate 4.65 meq/ Magnesium Sulfate 16 meq/ Multivitamins 10 ml/Amino Acids/ Dextrose 824 ml @ 34 mls/hr [id number] IV 02/01/25 22:00 02/02/25 21:59 Bumetanide 25 mg/ Miscellaneous 100 ml @ 4 mls/hr Q24H IV 02/01/25 14:00 02/01/25 15:53 4 MLS/HR Examination: GENERAL:Abnormal, LUNGS:Abnormal, MSK:Abnormal, SKIN:Abnormal, NEURO:Abnormal laboratory and microbiology Laboratory Tests 02/01/25 03:05 Test 02/01/25 03:05 Range/Units Serum Glucose 130 H 74-106 mg/dL Microbiology Date/Time Source Procedure Growth Status 01/30/25 00:00 Nose MRSA Screen - Final Complete 01/29/25 10:49 Blood Blood Culture - Preliminary NO GROWTH AFTER 72 HOURS OF INCUBATION. Resulted 01/29/25 10:43 Sputum Gram Stain - Final Complete 01/29/25 10:43 Sputum Respiratory Culture - Final Complete Problem List/Assessment/Plan Problem List/Assessment/Plan Acute kidney injury likely ischemic ATN in the setting of shock, FeNa > 2%, nonoliguric Acute respiratory failure, intubated on ventilator Status post cardiac arrest Hyperkalemia secondary to above Metabolic acidosis anion gap secondary to lactic acidosis secondary to reduced perfusion from hemorrhage Hemodynamic shock from bleeding Acute blood loss anemia/post op Status post laparoscopic cholecystectomy on 01/28/25 examined [facility] Status post ex lap, 01/29 Positive troponins NSTEMI--likely demand ischemia Shock liver Hypokalemia Recommendations Kidney function worsened today Mora catheter strict I&Os DC bicarb drip,continue diuretics Remains nonoliguric CT scan showing brain herniation-- HD pending cath placement --for solute clearance Plan discussed with: Other My Orders My Orders Orders - SILVIA NOONAN MD Procedure Category Date Status Time Communication Order ORDERS 02/01/25 Transmitted 07:52 SILVIA NOONAN MD Feb 01, 2025 16:44
[2025-02-01] MEDS: ACCU-CHEK COMFORT CURVE STRIP VI SCH (16:58)
[2025-02-01] MEDS: InsuLIN REG 1unit/0.01ml Soln (100units/ml) SC SCH (17:02)
[2025-02-01 18:17] LABS: Hemoglobin 8.4 g/dL (13.5-17.5)
[2025-02-01 18:19] LABS: Hematocrit 25.0 % (41.0-53.0); Mean Corpuscular Hemoglobin 30.3 pg (28.0-32.0); Mean Corpuscular Volume 90.6 fL (80.0-100.0)
[2025-02-01 18:22] LABS: Chloride 104 mmol/L (98-107); Sodium 142 mmol/L (136-145)
[2025-02-01 18:23] LABS: Anion Gap 11 (5-15); Carbon Dioxide 27 mmol/L (20-31)
[2025-02-01 18:26] LABS: Calcium 7.0 mg/dL (8.7-10.4); Potassium 5.4 mmol/L (3.5-5.1)
[2025-02-01 18:28] LABS: BUN/Creatinine Ratio 8.5 (10.0-20.0)
[2025-02-01 18:31] LABS: Blood Urea Nitrogen 62 mg/dL (9-23); Glucose 128 mg/dL (74-106)
[2025-02-01 18:38] LABS: Total Cells Counted 100.0 (100)
[2025-02-01 18:39] LABS: Anisocytosis Slight
--- NOTE | 2025-02-01 19:18 | DVHPN2 ---
Progress Note Date Seen: Feb 01, 2025 Has the PT tested + for MRSA If YES, has PT been informed?: No Medical Necessity Reason Pt with a Central, PICC or Fol: Yes The following are medically ne: Central Line, Mora Catheter Reason for mora catheter: Nakul. Abd Surgery Subjective Review of Systems Earlier today Dr. Marie had a discussion with the pt's mother, brother and sister with regards to the patient's current condition and prognosis. EEG was done demonstrating no electrical activity. I came at approximately 4:47 PM. We went to the quiet room with Martha REESE and addressed the same information with them and gave them their options without any coercion. They were made again aware that his prognosis is extremely poor with regards to meaningful recovery. However, patient's family would like to complete the neurologic workup recommended before making any decisions. They would like to continue with full code and full treatment until completing studies. The family remains with strong sabianism beliefs and nicko. They acknowledged the conditions and prognosis but they would like to proceed with confirmatory brain perfusion scan. Family made aware of Echo results and Dr. Hernandes's assessment. Pulmonary HTN (acute vs chronic) Can't exclude PE or pre-existing condition. Since he is initiating HD, could proceed with CTA to R/O PE. However cannot exclude possibility of further affecting his kidneys. Pt's mother refused for now. Dr. Guillen recommended against the apnea test, as he feels it would be counterproductive. He recommended to pursue the brain perfusion study. We will wait until Monday to determine whether it can be done. The patient has been scheduled for removal of packing tomorrow morning. It was an emotional meeting. We prayed for his wellbeing as well as wellbeing of the family. Afterwards, mother and son expressed gratitude for my care and attention, stated they had no ill will against me and were not faulting me for this. We had a very lengthy discussion about nicko and purpose. They are also very appreciative of Corinne, Adams, and are grateful for all other physician's assisting in Derrek's care. They then asked me to speak to Derrek. Upon arrival to the room. A prayer was held with the the family, Martha REESE and the Generator Assembler in which he applied holy rites (holy water and oil). I spoke to Derrek with the family. I spent approximately 2 hrs with the family. Levo now 8. Vasopressin unchanged. CVP 15. HR 100s. Dr. Javier will place HD catheter. TPN will initiate tonight. Hgb 8.4. Plts slightly over 50. Worsening renal Fx. Drain remains with ss fluid 55 mL Objective vital signs Vital Sign Date Time Temp Pulse Resp B/P (MAP) Pulse Ox O2 Delivery O2 Flow Rate FiO2 02/01/25 18:17 105 14 132/87 (102) 97 30 02/01/25 16:00 97.3 97.3 02/01/25 06:00 Mechanical Ventilator+ Total Intake and Output 01/31/25 01/31/25 02/01/25 15:00 23:00 07:00 Intake Total 601.50 ml 254.00 ml 250.00 ml Output Total 525 ml 410 ml Balance 601.50 ml -271.00 ml -160.00 ml medications Current Medications Medications Dose Ordered Sig/Serenity Route Start Time Stop Time Status Last Admin Dose Admin Norepinephrine Bitartrate 250 ml @ 3.75 mls/hr Q24H IV 01/29/25 10:00 02/01/25 17:06 15 MLS/HR Midazolam HCl 50 ml @ 1 mls/hr Q24H IV 01/29/25 14:15 01/29/25 15:56 5 MLS/HR Fentanyl Citrate 250 ml @ 2.5 mls/hr Q24H IV 01/29/25 14:15 Piperacillin Sod/ Tazobactam Sod 100 ml @ 25 mls/hr Q12HR IV 01/29/25 22:00 02/01/25 11:24 25 MLS/HR Pantoprazole Sodium 40 mg DAILY IV 01/30/25 10:00 02/01/25 11:22 40 MG Phenylephrine HCl 250 ml @ 30 mls/hr Q8H20M IV 01/29/25 19:30 01/30/25 01:39 116.25 MLS/HR Levalbuterol HCl 0.625 mg Q4HR PRN NEB 01/29/25 20:00 01/30/25 00:08 0.625 MG Ipratropium [place] 0.5 mg Q4HPRN PRN NEB 01/29/25 20:00 01/30/25 00:08 0.5 MG Epinephrine HCl 250 ml @ 7.5 mls/hr Q24H IV 01/30/25 00:15 Vasopressin 20 units/Sodium Chloride 100 ml @ 9 mls/hr Q11H7M IV 01/30/25 07:30 02/01/25 15:05 9 MLS/HR Amino Acids 0 ml @ 0 mls/hr PER PHARMACY IV 02/01/25 11:15 Diagnostic Test (Pha) 1 strip Q6HR 02/01/25 18:00 02/01/25 16:58 1 STRIP Insulin Human Regular FOLLOW SLIDING SCALE Q6HR SC 02/01/25 18:00 Dextrose 50 ml UD IV 02/01/25 12:30 Calcium Gluconate 4.65 meq/ Magnesium Sulfate 16 meq/ Multivitamins 10 ml/Amino Acids/ Dextrose 824 ml @ 34 mls/hr [id number] IV 02/01/25 22:00 02/02/25 21:59 Bumetanide 25 mg/ Miscellaneous 100 ml @ 4 mls/hr Q24H IV 02/01/25 14:00 02/01/25 15:53 4 MLS/HR laboratory and microbiology Laboratory Tests 02/01/25 17:53 Test 02/01/25 17:53 Range/Units Serum Glucose Pending Microbiology Date/Time Source Procedure Growth Status 01/30/25 00:00 Nose MRSA Screen - Final Complete 01/29/25 10:49 Blood Blood Culture - Preliminary NO GROWTH AFTER 72 HOURS OF INCUBATION. Resulted 01/29/25 10:43 Sputum Gram Stain - Final Complete 01/29/25 10:43 Sputum Respiratory Culture - Final Complete Labs and/or images reviewed: Labs reviewed by me Problem List/Assessment/Plan Problem List/Assessment/Plan Neuro: Appreciate neurology input and assistance. CT revealed Cerebral edema and tonsillar herniation. Poor prognosis. Pt too unstable for prolonged MRI study. Per neurology, no need for MRI and surgical decompression not indicated. Patient's mother, sister, brother in law and brother aware of CT findings, limited treatment options and poor prognosis.Brain studies ordered. Will discuss with patient's mother before proceeding. CV: Hemodynamic instability secondary to hemorrhagic shock,stable. Continue vasopressor support.Titrate as needed to maintain MAP 65. Decreasing vasopressor requirements. Elevated troponin, likely secondary and/or worsened by hemodynamic stress and CPR. Can't rule out ischemia. Cardiology assistance appreciated. Mechanical DVT prophylaxis. Pulmonary: VDRF. Continue ventilator. Appreciate pulmonary medicine assistance. R/O PE. VQ scan can't be done. Can't consider CTA chest given ARF. ETT 4 cm above meghan. Will defer to Pulmonary medicine GI: NPO. No TF given high vasopressor requirements. Possible TPN. will discuss with nephrology. Continue GI prophylaxis. Hepatic shock, improving. Improving transaminases. Appreciate GI assistance. . ARF secondary to hemorrhagic shock. worsening. May need HD. Awaiting nephrology recommendations. Strict I&O. Mora to gravity. Resolved metabolic acidosis. Appreciate nephrology assistance. Replace/correct electrolytes, Bumex gtt and IVFs per nephrology. Heme/ID. Received TXA, PCC, 3 u PRBC. 3 FFP and 2 u Cryoprecipitate. Hemorrhagic shock and coagulopathy. Hgb 9. Stable. proper response to PRBC transfusion given initial postoperative Hgb 6. Expected Hgb would be at 9, not 11 or 12. Thrombocytopenia, slight decrease, possible consumptive.Will transfuse 1 pack. Slightly elevated INR. Repeat labs PM. Appreciate hematology assistance. Cultures negative todate. Prophylactic antibiotics.1 pack of Plts, FFP and 2 u PRBC on hold in preparation for packing removal tomorrow. Endocrine: Tight glycemic control. Skin :Skin care and pressure ulcer precautions. CT scan of the neck demonstrated edema. The CT chest edema and pulmonary infiltrates. CT of the of the abdomen and pelvis demonstrated no evidence of bleeding/hematoma, besides unchanged hemoperitoneum in the perisplenic region, intraabdominal packing and hemostatic agents (Surgiflo and Surgicel Snow). Patient's mother/ family still wish to pursue with all possible treatment options. They are aware that his condition still remains critical and prognosis is poor. Will proceed with full code and all treatment options available. Patient has been schedule for 2nd look laparotomy and removal of packing on Monday at 7 am. They are aware that intraoperative finding will dictate end result of the procedure. Patient's family questions have been answered. I spent approximately 30-45 mins with the patient and RN Plan discussed with: Other (RN, Mother, sister, brother in law and brother.) My Orders My Orders Orders - JITENDRA ZAMORA MD Procedure Category Date Status Time * Wound Consult CONS 01/31/25 Transmitted Complete Blood Count LAB 02/01/25 In Process 18:00 Comprehensive LAB 02/02/25 Verified Metabolic Panel 04:00 Basic Metabolic Panel LAB 02/01/25 In Process 18:00 Complete Blood Count LAB 02/02/25 Verified 04:00 Prothrombin Time W/ LAB 02/02/25 Verified INR 04:00 Partial LAB 02/02/25 Verified Thromboplastin Time 04:00 Fibrinogen LAB 02/02/25 Verified 04:00 Type And Screen BBK 02/01/25 In Process 07:25 Tpn Per Pharmacy PHA 02/01/25 In Process 11:15 Glucose Blood PHA 02/01/25 In Process (Accu-Chek Comfort 18:00 Insulin R (Human) PHA 02/01/25 In Process (Insulin R) 18:00 Dextrose 50% Syringe PHA 02/01/25 In Process 12:30 Amino Acid PHA 02/01/25 In Process Infusion... W/Calcium 22:00 Magnesium LAB 02/02/25 Verified 04:00 Phosphorus LAB 02/02/25 Verified 04:00 Triglycerides LAB 02/02/25 Verified 04:00 Tpn Per Pharmacy YANET 02/01/25 In Process 22:00 Manual Differential LAB 02/01/25 In Process 17:53 Dietary Evaluation Review Recommendations by RD: PPN/TPN Comments: 1) Increase TPN rate to meet at least 75% of estimated daily needs 2) Advance to renal cardiac diet when medically feasible, pending ST approval 3) Follow-up with cardiology, pulmonology, nephrology, neurology, and gastroenterology 4) Continue to monitor I&O, labs, and skin integrity Expected Outcomes/Goals: 1) nutritional support to meet at least 75% of estimated daily needs 2) labs and wound to improve 3) diet to advance 4) gradual wt loss 5) f/u in 2-3 days JITENDRA ZAMORA MD Feb 01, 2025 19:18
--- NOTE | 2025-02-01 20:14 | DVHPN2 ---
Subjective DOS: 02/01/2025 Patient seen and examined at bedside. Sedated, intubated on mechanical ventilator. Overnight events reviewed. HPI: A 24-year-old man with past medical history of asthma and gallstone pancreatitis who underwent laparoscopic cholecystectomy on 01/28/2025 in [facility]. Patient was discharged on same day; and as per medical records he developed nausea, vomiting and shortness of breath the night prior to presentation and woke up very weak; noted on AM of presentation with altered level of consciousness. Paramedics were called and patient was found to be in cardiac arrest. CPR was done, ROSC obtained; however patient had fixed and dilated pupils per ER documentation on arrival. CT abdomen/pelvis without contrast in ED revealed a hepatic hematoma measuring 8.6 cm with hemorrhage extending beyond the liver capsule into the right paracolic gutter as well as the pelvis. The patient was emergently taken back to surgery and underwent evacuation of a large hemoperitoneum,. was subsequently admitted to ICU. Pulmonary consultation is requested for evaluation and management of acute hypoxic respiratory failure requiring mechanical ventilator. Past Medical History: Asthma and gallstone pancreatitis Past Surgical History: Laparoscopic cholecystectomy on 01/28/2025 at [facility] Medications: Reviewed. Allergies: No known drug allergies. Family History: No family history of premature CAD. No family history of lung disorders. Social History: Nonsmoker. No alcohol or illicit drug use. Changes from previous H/P or p: No Changes Objective Vitals Vital Signs Date Time Temp Pulse Resp B/P (MAP) Pulse Ox O2 Delivery O2 Flow Rate FiO2 02/01/25 20:03 124/81 02/01/25 18:17 105 14 97 30 02/01/25 16:00 97.3 97.3 02/01/25 06:00 Mechanical Ventilator+ Intake/Output Intake and Output 02/01/25 07:00 Intake Total 1105.50 ml Output Total 935 ml Balance 170.50 ml Intake Oral 0 ml IV Total 1105.50 ml Output Urine Total 650 ml Gastric Drainage Total 150 ml Drainage Total 135 ml Exam Gen.: Patient lying in bed in medical ICU. Sedated, intubated on mechanical ventilator. Head: Normocephalic, atraumatic. Eyes: PERRLA. Ears: Normal external anatomy. Throat: Endotracheal tube and orogastric tube in place. Neck: Supple, trachea midline. Chest: Transmitted breath sounds bilaterally. Decreased air entry bilaterally. No wheezing. Bibasilar crackles. Cardiovascular: Positive S1, positive S2. Regular rate and rhythm. Abdomen: Positive bowel sounds in all 4 quadrants. Soft, nontender, nondistended. : Green in place. Normal external genitalia. Rectal: Deferred. Skin: Warm, dry. Intact. Extremities: 2+ radial pulses bilaterally. No lower extremity edema. Neuro: Sedated. Medications Current Medications Medications Dose Ordered Sig/Serenity Route Start Time Stop Time Status Last Admin Dose Admin Norepinephrine Bitartrate 250 ml @ 3.75 mls/hr Q24H IV 01/29/25 10:00 02/01/25 17:06 15 MLS/HR Midazolam HCl 50 ml @ 1 mls/hr Q24H IV 01/29/25 14:15 01/29/25 15:56 5 MLS/HR Fentanyl Citrate 250 ml @ 2.5 mls/hr Q24H IV 01/29/25 14:15 Piperacillin Sod/ Tazobactam Sod 100 ml @ 25 mls/hr Q12HR IV 01/29/25 22:00 02/01/25 11:24 25 MLS/HR Pantoprazole Sodium 40 mg DAILY IV 01/30/25 10:00 02/01/25 11:22 40 MG Phenylephrine HCl 250 ml @ 30 mls/hr Q8H20M IV 01/29/25 19:30 01/30/25 01:39 116.25 MLS/HR Levalbuterol HCl 0.625 mg Q4HR PRN NEB 01/29/25 20:00 01/30/25 00:08 0.625 MG Ipratropium Finger 0.5 mg Q4HPRN PRN NEB 01/29/25 20:00 01/30/25 00:08 0.5 MG Epinephrine HCl 250 ml @ 7.5 mls/hr Q24H IV 01/30/25 00:15 Vasopressin 20 units/Sodium Chloride 100 ml @ 9 mls/hr Q11H7M IV 01/30/25 07:30 02/01/25 15:05 9 MLS/HR Amino Acids 0 ml @ 0 mls/hr PER PHARMACY IV 02/01/25 11:15 Diagnostic Test (Pha) 1 strip Q6HR 02/01/25 18:00 02/01/25 16:58 1 STRIP Insulin Human Regular FOLLOW SLIDING SCALE Q6HR SC 02/01/25 18:00 Dextrose 50 ml UD IV 02/01/25 12:30 Calcium Gluconate 4.65 meq/ Magnesium Sulfate 16 meq/ Multivitamins 10 ml/Amino Acids/ Dextrose 824 ml @ 34 mls/hr [id number] IV 02/01/25 22:00 02/02/25 21:59 Bumetanide 25 mg/ Miscellaneous 100 ml @ 4 mls/hr Q24H IV 02/01/25 14:00 02/01/25 15:53 4 MLS/HR Laboratory Results Laboratory Tests 02/01/25 17:53 Chemistry Test 02/01/25 03:05 02/01/25 12:51 02/01/25 17:53 Albumin 2.7 g/dL (3.2-4.8) L Calcium Level 6.7 mg/dL (8.7-10.4) L 7.0 mg/dL (8.7-10.4) L Total Protein 4.6 g/dL (5.7-8.2) L Magnesium Level 1.5 mg/dL (1.6-2.6) L Phosphorus Level 3.7 mg/dL (2.4-5.1) Coagulation Test 02/01/25 03:05 Prothrombin Time 13.3 sec (9.3-11.8) H Prothrombin Time INR 1.29 (0.9-1.15) H Activated Partial Thromboplast Time 34.7 SEC (24.5-34.5) H LFT Test 02/01/25 03:05 Alanine Aminotransferase (ALT) 1821 U/L (7-40) H Alkaline Phosphatase 127 U/L (46-116) H Aspartate Amino Transferase (AST) 1780 U/L (13-40) H Total Bilirubin 2.4 mg/dL (0.2-1.0) H Urinalysis Test 01/29/25 09:54 01/29/25 14:15 01/30/25 16:16 Urine Amorphous Crystals Few /hpf (None Seen) Urine Creatinine 19.64 mg/dL (30.0-125.0) L Urine Sodium 98 mmol/L (40-220) Urine Total Protein 245.5 mg/dL (1-14) H Urine Color Pending Urine Clarity Pending Urine pH Pending Urine Specific [place] Pending Urine Protein Pending Urine Ketones Pending Urine Blood Pending Urine Nitrite Pending Urine Bilirubin Pending Urine Urobilinogen Pending Urine Leukocyte Esterase Pending Urine RBC Pending Urine Microscopic WBC Pending Urine Squamous Epithelial Cells Pending Urine Bacteria Pending Urine Glucose Pending Microbiology Microbiology Date/Time Source Procedure Growth Status 01/30/25 00:00 Nose MRSA Screen - Final Complete 01/29/25 10:49 Blood Blood Culture - Preliminary NO GROWTH AFTER 72 HOURS OF INCUBATION. Resulted 01/29/25 10:43 Sputum Gram Stain - Final Complete 01/29/25 10:43 Sputum Respiratory Culture - Final Complete Assessment/Plan Assessment/Plan Impression: Acute hypoxic respiratory failure On mechanical ventilator Status post cardiac arrest Possible anoxic brain injury NSTEMI, possible type 2 Hypovolemic shock Acute kidney injury secondary to hypovolemic shock Obesity, BMI 30.4 Multiorgan failure Plan: s/p intubation on mechanical ventilator CXR image and report reviewed. ABG reviewed. Compensated On assist control with respiratory rate of 14, tidal 500, PEEP of 7, FiO2 of 40% Titrate FIO2 to keep O2 saturation above 92%. VAP bundle Daily ABG and CXR while intubated. Sedate for ventilatory synchrony Start pressors if necessary for hemodynamic support. On pressors for hemodynamic support. Titrate to keep MAP above 65 mmHg/SBP above 90 mmHg. Continue antibiotics. F/u cultures. Blood cultures no growth after 72 hours Sputum culture grew normal oropharyngeal slava. Monitor hemoglobin Monitor renal function due to Acute kidney injury. Monitor electrolytes. Supplement as necessary. Continue diuresis per Nephrology Monitor ins and outs HD per nephrology Plan for large-bore central line placement of hemodialysis access Nutritional support. Accu-Cheks, ISS. GI/DVT prophylaxis. Condition: Critical Prognosis: Poor given multiple comorbidities. Rest of plan per hospitalist and other consultants. A total of 35 minutes of critical care time was spent reviewing the patient record, examining the patient, making a diagnostic and therapeutic plan, discussing this plan with the medical personnel, following up on diagnostic studies and following the patient for clinical stability excluding any and all procedures. At least 50% of this time was spent in direct, [id number] contact. Thank you for allowing me to participate in this patient's care. Further recommendations will depend on patient's clinical course. Please do not hesitate to contact me if you have any questions or concerns. This medical document was created using an electronic medical record system with [employer] computerized dictation system. Although this document has been carefully reviewed, there may still be some phonetic and typographical errors. These areas are purely typographical due to imperfections of the software programs, and do not reflect any compromise in the patient's medical care. Plan discussed with: Other (MARY ANN Damon) Date of Service: Feb 01, 2025 Billing Provider: NEHEMIAS BEASLEY MD Common Visit Codes: 35033-[id number] INP/OBS CARE(HIGH), 11828-[id number] CARE 30-74 MIN Procedure Codes: 99981-HBDYUC NON-TUNNEL CV CATH (22045 US ADD ON) NEHEMIAS BEASLEY MD Feb 01, 2025 20:14
[2025-02-01] MEDS: [UNRECOGNIZED DRUG - OTHER] IV SCH (22:37)
[2025-02-01] MEDS: MAGNESIUM SULF IV SCH (22:37)
[2025-02-01] MEDS: CALCIUM GLUC IV SCH (22:37)
[2025-02-01] MEDS ORDERED: HEPARIN 1,000 UNITS/ml 1ML VIAL IV ONE (22:45)
--- NOTE | 2025-02-01 23:05 | DVH ---
CHEST RADIOGRAPH Indication: YOLIS CATH PLACEMENT VERIFICATION Technique: Single frontal view of the chest was obtained Comparison: XY CHEST PORTABLE on DOS: 02/01/25, XY CHEST PORTABLE on DOS: 01/31/25, XY CHEST PORTABLE o n DOS: 01/30/25 FINDINGS: Lines and Tubes: Endotracheal tube 3.1 cm above the meghan. Right internal jugular catheter in place within the right atrium or cavoatrial junction. Enteric tube below the left diaphragm in the stomach Lungs: Bibasilar areas of atelectasis or airspace disease Pleura: No effusion. No pneumothorax. Cardiomediastinal contours: Unremarkable Bones: No acute osseous abnormality. IMPRESSION: 1. . Endotracheal tube 3.1 cm above the meghan 2. Enteric tube in the stomach 3. Internal jugular catheter(Yolis catheter) in place at the cavoatrial junction or within the righ t atrium. 4. Bibasilar areas atelectasis or airspace disease
--- NOTE | 2025-02-01 23:49 | DVHNC2 ---
Procedure - Procedure: Left Subclavian Vein Kevin Catheter placement Date: 02/01/2025 Time: 10:16 PM. Procedure Performed by Physician performing procedure: Nehemias Javier MD Procedure Summary Procedure Summary: Left Subclavian Vein Large bore Central Line Procedure Note INDICATION: Administration of medications, hemodynamic monitoring, Access for Hemodialysis PROCEDURE PATTERN CHANGER: Dr Ro Javier CONSENT: Consent was obtained from patient's health care proxy prior to the procedure. Indications, risks, and benefits were explained at length. Time out time: Risks and benefits of the procedure and sedation options and risks were discussed with the patient/patient's HCP. All questions were answered and informed consent was obtained. Patient identification and proposed procedure were verified prior to the procedure by the physician, and the nurse in the patient's room. PROCEDURE SUMMARY: A time out was performed. My hands were washed immediately prior to the procedure. I wore a surgical cap, mask with protective eyewear, full gown and sterile gloves throughout the procedure. The patient was placed in Trendelenburg position. LEFT chest region was prepped using chlorhexidine scrub and draped in sterile fashion using a full drape and sterile probe cover employed. The medial and lateral heads of the sternocleidomastoid muscle were identified as was the carotid pulse. The Subclavian vein was identified using the ultrasound. Anesthesia was achieved over the vein using 1% lidocaine. Using real-time out of plane guidance, the introducer needle was inserted into the Subclavian vein under direct ultrasound visualization. Venous blood was withdrawn. The syringe was removed and a guidewire was advanced into the introducer needle. The gu idewire was visualized in the Subclavian vein by ultrasound. A small incision was made at the skin surface with a scalpel and the introducer needle was exchanged for a dilator over the guidewire. After appropriate dilation was obtained, the dilator was exchanged over the wire for a 12 Turkish double lumen central venous catheter. The wire was removed and the catheter was sutured in place at 13 cm. A sterile BIO-PATCH and Tegaderm were placed over the catheter at the insertion site. The patient tolerated the procedure without any hemodynamic compromise. At time of procedure completion, all ports aspirated and flushed properly. Post-procedure chest x-ray image is pending at time of writing this note. Estimated blood loss is less than 5 mL. CPT 11034 Central venous catheter insertion CPT 19904 US Add On CPT 98314 CXR interpretation NEHEMIAS JAVIER MD Feb 01, 2025 23:49
[2025-02-02] VITALS (106 sets, daily range): BP systolic 86–151; BP diastolic 51–100; PULSE 87–114; RESP 12–28; TEMP 96.5–98.8; O2SAT 95–98
[2025-02-02] MEDS: HEPARIN 1,000 UNITS/ml 1ML VIAL IV ONE (00:16)
[2025-02-02 05:04] LABS: Anion Gap 12 (5-15); BUN/Creatinine Ratio 8.4 (10.0-20.0); Carbon Dioxide 27 mmol/L (20-31); Chloride 102 mmol/L (98-107); Magnesium 2.1 mg/dL (1.6-2.6); Sodium 141 mmol/L (136-145); Triglycerides 97 mg/dL (< 150)
[2025-02-02 05:14] LABS: Hematocrit 26.4 % (41.0-53.0); Hemoglobin 9.0 g/dL (13.5-17.5); Mean Corpuscular Hemoglobin 29.8 pg (28.0-32.0); Mean Corpuscular Volume 87.8 fL (80.0-100.0)
[2025-02-02 05:16] LABS: INR 1.14 (0.9-1.15); Partial Thromboplastin Time 34.7 SEC (24.5-34.5); Prothrombin Time 11.9 sec (9.3-11.8)
[2025-02-02 05:28] LABS: Alanine Aminotransferase 995 U/L (7-40); Albumin 2.8 g/dL (3.2-4.8); Alkaline Phosphatase 153 U/L (46-116); Bilirubin, Total 1.3 mg/dL (0.2-1.0); Blood Urea Nitrogen 65 mg/dL (9-23); Calcium 7.3 mg/dL (8.7-10.4); Glucose 135 mg/dL (74-106); Total Protein 5.0 g/dL (5.7-8.2)
[2025-02-02 05:29] LABS: Potassium 6.0 mmol/L (3.5-5.1)
[2025-02-02] MEDS: DEXTROSE (50%) 50ML SYRG IV ONE (05:44)
[2025-02-02] MEDS: InsuLIN REG 1unit/0.01ml Soln (100units/ml) IV ONE (05:45)
--- NOTE | 2025-02-02 06:09 | DVH ---
CHEST RADIOGRAPH Indication: INTUBATED Technique: Single frontal view of the chest was obtained COMPARISON: XY CHEST PORTABLE on DOS: 02/01/25, XY CHEST PORTABLE on DOS: 02/01/25, XY CHEST PORTABLE o n DOS: 01/31/25, XY CHEST PORTABLE on DOS: 01/30/25, XY CHEST PORTABLE on DOS: 01/29/25 FINDINGS: Lines and Tubes: Slight interval advancement of endotracheal tube such that the tip now projects appr oximately 1.7 cm above the level of the meghan. Remaining lines and tubes are unchanged. Lungs: Persistently diminished lung volumes with concomitant crowding of the pulmonary vasculature. N o evidence of focal consolidation. Pleura: No effusion. No pneumothorax. Cardiomediastinal contours: Unremarkable Bones: Unremarkable IMPRESSION: 1. Slight interval advancement of endotracheal tube such that the tip now projects approximately 1.7 cm above the level of the meghan. Remaining lines and tubes unchanged. 2. Otherwise no significant change compared to prior exam.
[2025-02-02 06:37] LABS: Nucleated Red Blood Cells % 2.0 %; Total Cells Counted 100.0 (100)
[2025-02-02] MEDS: SODIUM CHL 0.9% 1000 ML BAG XX ONE (07:00)
[2025-02-02 07:13] LABS: Base Excess 0.4 mmol/L (-2.0-3.0)
[2025-02-02 08:47] LABS: Fibrinogen 537.0 mg/dL (177-375)
[2025-02-02] MEDS: CALCIUM GLUC 1,000mg/50ml-NS 50 ML IV ONE (13:44)
[2025-02-02] MEDS: ALBUMIN 25% 100 ML IV PRN (13:52)
--- NOTE | 2025-02-02 16:20 | DVHPN2 ---
Progress Note - Dictate Date Seen: Feb 02, 2025 Has the PT tested + for MRSA If YES, has PT been informed?: No Medical Necessity Reason Pt with a Central, PICC or Fol: Yes The following are medically ne: Central Line, Mora Catheter Reason for mora catheter: Nakul. Abd Surgery vital signs Vital Sign Date Time Temp Pulse Resp B/P (MAP) Pulse Ox O2 Delivery O2 Flow Rate FiO2 02/02/25 15:51 103 14 114/68 (83) 96 30 02/02/25 14:00 Mechanical Ventilator+ 02/02/25 07:30 97.0 97.0 Total Intake and Output 02/01/25 02/01/25 02/02/25 15:00 23:00 07:00 Intake Total 782.50 ml 667.25 ml 1077.25 ml Output Total 405 ml 460 ml Balance 782.50 ml 262.25 ml 617.25 ml medications Current Medications Medications Dose Ordered Sig/Serenity Route Start Time Stop Time Status Last Admin Dose Admin Norepinephrine Bitartrate 250 ml @ 3.75 mls/hr Q24H IV 01/29/25 10:00 02/01/25 17:06 15 MLS/HR Midazolam HCl 50 ml @ 1 mls/hr Q24H IV 01/29/25 14:15 01/29/25 15:56 5 MLS/HR Fentanyl Citrate 250 ml @ 2.5 mls/hr Q24H IV 01/29/25 14:15 Piperacillin Sod/ Tazobactam Sod 100 ml @ 25 mls/hr Q12HR IV 01/29/25 22:00 02/02/25 09:57 25 MLS/HR Pantoprazole Sodium 40 mg DAILY IV 01/30/25 10:00 02/02/25 09:57 40 MG Phenylephrine HCl 250 ml @ 30 mls/hr Q8H20M IV 01/29/25 19:30 01/30/25 01:39 116.25 MLS/HR Levalbuterol HCl 0.625 mg Q4HR PRN NEB 01/29/25 20:00 02/02/25 06:23 0.625 MG Ipratropium [place] 0.5 mg Q4HPRN PRN NEB 01/29/25 20:00 02/02/25 06:23 0.5 MG Epinephrine HCl 250 ml @ 7.5 mls/hr Q24H IV 01/30/25 00:15 Vasopressin 20 units/Sodium Chloride 100 ml @ 9 mls/hr Q11H7M IV 01/30/25 07:30 02/02/25 10:41 9 MLS/HR Amino Acids 0 ml @ 0 mls/hr PER PHARMACY IV 02/01/25 11:15 Diagnostic Test (Pha) 1 strip Q6HR 02/01/25 18:00 02/02/25 11:33 1 STRIP Insulin Human Regular FOLLOW SLIDING SCALE Q6HR SC 02/01/25 18:00 02/02/25 11:36 2 UNITS Dextrose 50 ml UD IV 02/01/25 12:30 Calcium Gluconate 4.65 meq/ Magnesium Sulfate 16 meq/ Multivitamins 10 ml/Amino Acids/ Dextrose 824 ml @ 34 mls/hr [id number] IV 02/01/25 22:00 02/02/25 21:59 02/01/25 22:37 34 MLS/HR Bumetanide 25 mg/ Miscellaneous 100 ml @ 4 mls/hr Q24H IV 02/01/25 14:00 02/02/25 14:25 4 MLS/HR Albumin Human 100 ml @ 100 mls/hr PRN PRN IV 02/02/25 09:45 02/02/25 13:52 100 MLS/HR Sodium Chloride 10 meq/Calcium Gluconate 4.65 meq/Magnesium Sulfate 8 meq/ Multivitamins 10 ml/Amino Acids/ Dextrose 924.5 ml @ 39 mls/hr [id number] IV 02/02/25 22:00 02/03/25 21:59 laboratory and microbiology Laboratory Tests 02/02/25 06:10 02/02/25 04:40 Test 02/02/25 04:40 Range/Units Serum Glucose 135 H 74-106 mg/dL Assessment/Plan Still being managed in ICU. Still intubated and on pressure and vent supports. Still no reflexes. Undergone another procedure by surgeon today Has been evaluated by Neurology: hypoxic/metabolic Encephalopathy Echocardiogram revealed no WMA and also revealed good EF. It also revealed increased Pulmonary Artery Pressure in favor of component of Pulmonary Hypertension. s/p Hemodialysis Patient is a 24-year-old gentleman who was originally brought to the hospital for post arrest. Patient is seen in postop area. Patient is intubated and on multiple pressor supports. Patient is not source of history. Information was obtained by reviewing the chart, talking to patient's family/mother and communicating with staff and reviewing outside records ([facility]). Patient did have elective outpatient laparoscopic cholecystectomy in [facility] on January 28 2025. As per mother, after going home, patient was feeling very hungry and was eating and drinking a lot. He started feeling abdominal pain with nausea at night and in the morning was short of breath. As per mother: patient has stopped breathing in the morning and family called 911. As per mother, as per guidance of 911, family started CPR until EMS arrived. Patient was intubated and was brought to the hospital by EMS. Since arrival to [facility], patient was seen by surgeon who took the patient to operating room and performed laparotomy (there was hepatic hematoma). Postoperatively, the patient has remained hypotensive. There is signs for multiorgan involvement. Patient was not alert and did not complain of any chest pains. Labs revealed increased troponin. Cardiology is involved for cardiac aspects of care and abnormal troponin. First available EKG reveals sinus tachycardia with no specific ST-T changes. Telemetry had revealed sinus tachycardia throughout the stay. Patient is found to have significant anemia and is receiving blood transfusion at the time of evaluation. It is of note that at the time of evaluation patient does not have any reflexes. Intubated. Mucosa pale. Scattered rhonchi in the lungs. Cardiac: Tachycardic. No murmur. Abdomen is covered by dressing. Extremities do not reveal any edema. Dorsalis pedis is 1+ bilateral. Pupils are not reflective to light. Patient does not respond to any painful stimuli Reported past medical history includes asthma and obesity. Reportedly, on January 23, 2025: Patient presented to [facility] for abdominal pain/nausea/vomiting. At that point the problems were ongoing for few weeks. In [facility], CT of the abdomen and MRCP were performed. Patient was seen by GI/surgery. Patient was found to have gallstones. Patient was discharged and later on January 28, 2025 presented back to [facility] for elective laparoscopy cholecystectomy. Patient was discharged home from [facility] after laparoscopic cholecystectomy. As per mother, patient does not have baseline history of any cardiac history. As per mother, patient was using marijuana. Mother denies any previous substance abuse besides marijuana. No specific family history is reported On January 23, 2025, labs in [facility] revealed creatinine of 0.84, hemoglobin of 15.2 and troponin (high sensitive) of <3. At that point EKG was normal WBC: 20.1 - 19.0 - 22.7 - 20.6 - 28.4 - 20.3 - 21.0 - 25.2 Hemoglobin: 8.3 - 6.5 - 12.1 - 11.1 - 12.1 - 9.3 - 9.2 - 9.1 Fibrinogen: 108 Creatinine: 4.02 - 3.78 - 3.90 - 3.95 - 4.34 - 5.44 - 6.05 - 6.73 Potassium: 5.6 - 4.6 - 4.8 - 3.9 - 2.9 - 2.9 - 3.6 - 3.8 - 4.9 AST/ALT: 676/700 - 2327/2055 - 4636/2521 - -/1995 - 2499/1989 - 1779/1820 Lactic acid: 17.9 - 17.2 - 11.4 Troponin (high sensitive): 2973 - 1242 - 4363 - 2248 - 0389 TSH: 11.05 Urine Toxicology: positive for Fentanyl and Benzodiazepine Chest x-ray revealed: Lines and Tubes: Endotracheal tube projects 2.2 cm above the meghan. Right internal jugular central venous catheter tip projects over superior vena cava. Lungs: No focal consolidation. Low lung volumes. Pleura: No effusion. No pneumothorax. Cardiomediastinal contours: Unremarkable Bones: No acute osseous abnormality. IMPRESSION: Lines and tubes as above. Low lung volumes. Repeat chest x-ray revealed: IMPRESSION: Lines and tubes in satisfactory position. Mild increased pulmonary vascular congestion Repeat chest xry revealed: IMPRESSION: Lines and tubes in satisfactory position. Mild increased pulmonary vascular congestion Repeat chest xry revealed: IMPRESSION: 1. Low lung volumes with concomitant crowding of the pulmonary vasculature. 2. No evidence of focal consolidation. 3. Lines and tubes unchanged. Repeat chest xry revealed: IMPRESSION: 1. Slight interval retraction of the endotracheal tube such that the tip now projects approximately 4.7 cm above the level of the meghan. Remaining lines and tubes unchanged. 2. Otherwise no significant change compared to prior exam. CT of the chest/abdomen/pelvis revealed: IMPRESSION: 1. Hepatic hematoma measuring up to approximately 8.6 cm in greatest dimension, as described above, with hemorrhage extending beyond the liver capsule and into the right pericolic gutter as well as into the pelvis. No definite active arterial bleeding is seen on this exam, although limited evaluation due to the timing of contrast, as this was not a CTA exam. 2. Postsurgical changes of cholecystectomy. 3. Dilated fluid-filled small bowel loops, may be due to postoperative ileus. No small bowel obstruction. 4. Small volume pneumoperitoneum, likely due to recent surgery. Small volume of gas are seen in the upper ventral abdomen from the recent surgery. 5. Dependent atelectasis in the lower lobes. Otherwise, no acute disease in the chest. 6. Endotracheal tube and enteric tube in place. 7. Atrophic right kidney incidentally noted. 8. Additional findings as described above. Critical findings Critical Result: Acute hepatic hematoma with hemorrhage extending beyond the liver capsule into the adjacent portions of the abdomen and into the pelvis as detailed above. Repeat CT of chest/abdomen/pelvis revealed: There is limited interpretation of the chest, abdomen and pelvis without administration of intravenous contrast. Endotracheal tube tip terminates just at the meghan / left main bronchus. Diffuse bilateral pulmonary airspace consolidation bilaterally significantly increased. Bilateral lower lobe lobar consolidation/ atelectasis, increased from prior. Small bilateral pleural effusions. There is extensive edema/ stranding within the upper anterior chest, neck region/supraclavicular region. There is some hyperdensity within this region which could represent components of hematoma / blood products. Heterogeneous appearance of the thyroid gland. Right IJ catheter terminating at the cavoatrial junction. Adrenal glands unremarkable in shape. Perisplenic hematoma. Interval postsurgical changes in the right upper quadrant of the abdomen. There appears to be surgicel/gaseous collection within the previous hematoma cavity, likely representing surgicel. There is a radiopaque density within the resection cavity as well which measures 6.2 x 4.6 cm.. Postoperative changes of the right anterior abdomen with soft tissue emphysema. Small amount of pneumoperitoneum Surgical drainage catheter terminating in the right upper quadrant of the abdomen Right renal parenchymal atrophy. Left kidney demonstrates perinephric edema / stranding. No left hydronephrosis. Nasogastric tube projects towards the distal stomach. Moderate distention small bowel loops. Rectal catheter. Moderate distention of the large bowel loops. Normal appendix. Abdominal aorta normal in caliber. Small amount of ascites fluid/ mesenteric edema. Bladder decompressed by Mora catheter. Soft tissue edema /anasarca. Mesenteric edema. Small amount of ascites fluid. The osseous structures are stable. IMPRESSION: Limited evaluation without contrast. Interval evacuation of the right upper quadrant hematoma. Surgicel within the resection cavity. No significant interval development of new hematoma. There are 2 radiopaque lap pads within the resection cavity . Findings reviewed with Dr. Ledesma at 11:51 a.m. on 01/30/2025 Perisplenic hematoma, similar to previous examination. Extensive bilateral pulmonary airspace consolidation, significantly increased from previous examination. Small bilateral pleural effusions. Right upper quadrant drainage catheter. Pneumoperitoneum. Soft tissue edema / anasarca. Small amount of ascites fluid/ mesenteric edema. Extensive edema within the anterior chest, neck region. Heterogeneous appearance thyroid gland. Other findings as described. CT of the head revealed: IMPRESSION: 1. No evidence of acute intracranial abnormality. Repeat CT of head revealed: FINDINGS: Cerebellar tonsilar herniation. There is sulcal and ventricular effacement. The basal cisterns are effaced. Loss of mario-white matter differentiation is noted. The skull and visible facial bones are intact. The paranasal sinuses, mastoid air cells and middle ear cavities are well-aerated. The soft tissues of the scalp are unremarkable. IMPRESSION: Diffuse cerebral edema with cerebellar tonsillar herniation. Recommend MRI brain for further evaluation. CT of Neck revealed: IMPRESSION: Limited evaluation without contrast. Extensive soft tissue edema within the neck extending into the anterior / upper chest and anterior mediastinum . Retropharyngeal edema. Heterogeneous appearance of the thyroid gland. Inferior cerebellar tonsillar herniation better seen on the prior CT Renal Ultrasound revealed: IMPRESSION: 1. Right kidney not visible. 2. Left kidney is enlarged. 3. No hydronephrosis. Venous duplex of lower ext revealed: IMPRESSION: NO SONOGRAPHIC EVIDENCE FOR DEEP VENOUS THROMBOSIS IN THE RIGHT LOWER EXTREMITY VEINS. EEG reported: This is a remarkably abnormal EEG, this EEG seen in severe cerebral dysfunction due to metabolic/hypoxic encephalopathy or medication effects, unless this is caused by reversible etiology, this EEG is suggestive of a poor prognosis for meaningful recovery, please correlate clinically. Arrival EKG revealed sinus tachycardia with nonspecific ST-T changes Tele reveals sinus tachycardia Echocardiogram revealed: Technically limited study secondary to poor acoustic windows. Left ventricle: Left ventricle was normal-sized with normal systolic function. LVEF was 55-60%. No gross wall motion abnormality was seen. Right ventricle was mildly dilated with normal systolic function. Left atrium was normal-sized. Right atrium was mildly dilated. Aortic valve: Aortic valve was not well visualized. There was no aortic insufficiency/stenosis. There was no mitral regurgitation. There was trace tricuspid regurgitation. Pulmonary valve was not well visualized. IVC was not visualized. Right ventricular systolic pressure was assessed around 48 mm Hg. There was no pericardial effusion. Patient is a 24-year-old gentleman who presented with post arrest. It seems that the patient had hemorrhagic (intra-abdominal) presentation. Patient did have elective laparoscopic cholecystectomy the day before presentation. On the day of presentation, the patient was taken back to operating room and this time Laparotomy was done for hepatic hematoma. Patient does have multiorgan involvement. Clinically there is no brainstem reflexes. Shock liver/acute renal failure is considered. Troponin has been high. EKG did not reveal any STEMI. Presentation could be high troponin secondary to demand physiology. Patient does not have any risk factors for baseline coronary artery disease. In ideal scenario, ischemic workup/cardiac catheterization could be more revealing. Unfortunately, the patient does have acute renal failure which could be worsened by cardiac catheterization at this point. As there was no higher brain functions the suggestion is to wait and see if patient regains any higher brain function. It is of note that during cardiac catheterization, the patient may need some anticoagulation/antiplatelets. At this point patient is having significant anemia/bleeding and receiving blood transfusion and holding off of scenario forcing Anticoagulation/antiplatelets is advised. I had a long discussion with family members and Mother (repeatedly). Clinically patient has multiorgan failure. Secondary to active bleeding, we will avoid anticoagulation/antiplatelets for now. Being managed in ICU. Was taken to OR repeatedly. Still no reflexes. Echocardiogram revealed no WMA and also revealed good EF. It also revealed increased Pulmonary Artery Pressure in favor of component of Pulmonary Hypertension. Review of Echo images revealed good right ventricular systolic function. Not typical for Pulmonary Emboli. Still, PE cannot be ruled out. If PE is ruled out, then it is possible that patient had Pulmonary Hypertension from before (Baseline history of Asthma may actually reflect it). s/p PRBC transfusion (multiple). Being followed by Surgery, Nephrology, Hematology, Pulmonary, Neurology and GI. . Repeat imaging revealed cerebellar tonsillar herniation. Neurology diagnosed Hypoxic/Metabolic Encephalopathy also. EEG findings question meaningful recovery. s/ p Arrest Intra-abdominal bleeding Hepatic hematoma Multiorgan failure, due to shock Shock liver Lactic Acidosis Acute renal failure Acute respiratory failure, on vent support Status post laparotomy Status post laparoscopic cholecystectomy Abnormal troponin, evaluated to reflect possible demand physiology History of gallstones History of asthma Obesity History of marijuana abuse Consumptive Coagulopathy / DIC Pulmonary Hypertension Cerebellar tonsillar Herniation. Cardiac suggestion for management: Manage in ICU Pressure support (patient on Levophed/vasopressor at the time) Follow-up electrolytes and kidney function tests and correct abnormalities Evaluation and management of respiratory failure as per Pulmonary Evaluation and management of Cerebellar tonsillar herniation as per Neurology/surgery V/Q scan could not be completed Neurology follow up Echocardiogram revealed no WMA and also revealed good EF. It also revealed increased Pulmonary Artery Pressure in favor of component of Pulmonary Hypertension. Hematology follow up (to comment on prophylaxis / treatment of Pulmonary Emboli) Surgical follow up Nephrology (may need dialysis) and Hematology follow up Secondary to active bleeding, we will avoid anticoagulation/antiplatelets for now Long-term prognosis depends on the above and most importantly regaining of the higher brain function: looks very grim Ischemic workup may be considered only after regaining higher brain function or any special change in clinical presentation Further evaluation and management depends on the above and clinical course A total of 75 minutes was spent reviewing the patient record, examining the patient, making a diagnostic and therapeutic plan, discussing this plan with medical personnel, following up on diagnostic studies and following the patient for clinical stability excluding any and all procedures. At least 50% of this time was spent in direct, [id number] contact. Thank you for allowing me to participate in this patient's care. Further recommendations will depend on patient's clinical course. Please do not hesitate to contact me if you have any questions or concerns. This medical document was created using electronic medical record system with [employer] computerized dictation system. Although this document has been carefully reviewed, there may still be some phonetic and typographical errors. These areas are purely typographical due to the imperfection of the software programs, and do not reflect any compromise in the patient's medical care. Dietary Evaluation Review Recommendations by RD: PPN/TPN Comments: 1) Increase TPN rate to meet at least 75% of estimated daily needs 2) Advance to renal cardiac diet when medically feasible, pending ST approval 3) Follow-up with cardiology, pulmonology, nephrology, neurology, and gastroenterology 4) Continue to monitor I&O, labs, and skin integrity Expected Outcomes/Goals: 1) nutritional support to meet at least 75% of estimated daily needs 2) labs and wound to improve 3) diet to advance 4) gradual wt loss 5) f/u in 2-3 days Plan discussed with: Other (nurse) KATHLEEN COHEN MD Feb 02, 2025 16:20
--- NOTE | 2025-02-02 17:07 | DVHINCON2 ---
Date of service: Feb 02, [address] Ledesma Reason for Consultation Critically ill patient desired by Dr. Ledesma to be taken to surgery. Allergies: Coded Allergies: NO KNOWN ALLERGIES (Unverified , 01/21/14) Current Medications Current Medications Medications (Trade) Dose Ordered Sig/Serenity Route PRN Reason Start Time Stop Time Status Last Admin Diagnostic Test (Pha) (Accu-Chek Comfort Curve T) 1 strip Q6HR 02/01/25 18:00 02/02/25 11:33 Insulin Human Regular (InsuLIN R) FOLLOW SLIDING SCALE Q6HR SC 02/01/25 18:00 02/02/25 11:36 Calcium Gluconate 4.65 meq/ Magnesium Sulfate 16 meq/ Multivitamins 10 ml/Amino Acids/ Dextrose 824 ml @ 34 mls/hr [id number] IV 02/01/25 22:00 02/02/25 21:59 02/01/25 22:37 Albumin Human 100 ml @ 100 mls/hr PRN PRN IV HYPOTENSION DURING HD TX 02/02/25 09:45 02/02/25 13:52 Sodium Chloride 10 meq/Calcium Gluconate 4.65 meq/Magnesium Sulfate 8 meq/ Multivitamins 10 ml/Amino Acids/ Dextrose 924.5 ml @ 39 mls/hr [id number] IV 02/02/25 22:00 02/03/25 21:59 Vital Signs Vital Signs Date Time Temp Pulse Resp B/P (MAP) Pulse Ox O2 Delivery O2 Flow Rate FiO2 02/02/25 16:00 30 02/02/25 16:00 14 96 Mechanical Ventilator+ 02/02/25 15:51 103 114/68 (83) 02/02/25 07:30 97.0 97.0 Labs/Diagnostic Data Labs Test 02/02/25 13:30 02/02/25 11:31 02/02/25 07:05 02/02/25 06:10 Range/Units POC Glucose 135 H 70-106 mg/dl Blood Gas Specimen Type Arterial Blood Gas Sample Site Left radial Blood Gas Patient Temperature 37.0 Arterial Blood Date Drawn [id number] Arterial Blood pH 7.350 7.350-7.450 Arterial Blood Partial Pressure CO2 48.8 H 35.0-48.0 mmHg Arterial Blood Partial Pressure O2 90.4 83.0-108.0 mmHg Arterial Blood HCO3 26.3 21.0-28.0 mmol/L Arterial Blood Oxygen Saturation 95.8 94.0-98.0 % Arterial Blood Base Excess 0.4 -2.0-3.0 mmol/L Arterial Blood Oxyhemoglobin 95.3 94.0-98.0 % Arterial Blood Carboxyhemoglobin 0.3 L 0.5-1.5 % Arterial Blood Methemoglobin 0.2 0.0-1.5 % Markus Test Yes Blood Gas Total Hemoglobin 10.10 L 13.5-17.5 g/dL Blood Gas Set Respiration Rate 14.0 Blood Gas Modality Vent - ac FiO2 % 30.0 Blood Gas Tidal Volume 500.0 Blood Gas PEEP or CPAP 7.0 Potassium Level 5.1 3.5-5.1 mmol/L Test 02/02/25 04:40 02/01/25 17:53 02/01/25 03:05 01/31/25 06:37 Range/Units White Blood Count 29.5 H 4.4-10.8 10^3/uL Red Blood Count 3.01 L 4.5-5.90 10^6/uL Hemoglobin 9.0 L 13.5-17.5 g/dL Hematocrit 26.4 L 41.0-53.0 % Mean Corpuscular Volume 87.8 80.0-100.0 fL Mean Corpuscular Hemoglobin 29.8 28.0-32.0 pg Mean Corpuscular Hemoglobin Concent 34.0 32.0-36.0 g/dL Red Cell Distribution Width 15.2 H 11.8-14.3 % Platelet Count 61 L 140-450 10^3/uL Mean Platelet Volume 9.3 6.9-10.8 fL Neutrophils (%) (Auto) 37.0-80.0 % Lymphocytes (%) (Auto) 10.0-50.0 % Monocytes (%) (Auto) 0.0-12.0 % Basophils (%) (Auto) 0.0-2.0 % Neutrophils # (Auto) 1.6-8.6 10 ^3/uL Lymphocytes # (Auto) 0.4-5.4 10 ^3/uL Monocytes # (Auto) 0-1.3 10 ^3/uL Differential Total Cells Counted 100.0 100 Neutrophils % (Manual) 90 H 37.0-80.0 Band Neutrophils % (Manual) 0 Lymphocytes % (Manual) 6 L 10.0-50.0 Monocytes % (Manual) 4 0-12 Eosinophils % (Manual) 0 0-7 Basophils % (Manual) 0 0.0-2.0 Metamyelocytes % (manual) 0 Myelocytes % (Manual) 0 Promyelocytes % (Manual) 0 Blast Cells % (Manual) 0 Nucleated Red Blood Cells 2.0 % Reactive Lymphocytes 0 Platelet Estimate Decreased Prothrombin Time 11.9 H 9.3-11.8 sec Prothrombin Time INR 1.14 0.9-1.15 Activated Partial Thromboplast Time 34.7 H 24.5-34.5 SEC Fibrinogen 537 H 177-375 mg/dL Sodium Level 141 136-145 mmol/L Chloride Level 102 98-107 mmol/L Carbon Dioxide Level 27 20-31 mmol/L Anion Gap 12 5-15 Blood Urea Nitrogen 65 H 9-23 mg/dL Creatinine 7.77 H 0.700-1.30 mg/dL Glomerular Filtration Rate Calc 9 >90 mL/min BUN/Creatinine Ratio 8.4 L 10.0-20.0 Serum Glucose 135 H 74-106 mg/dL Calcium Level 7.3 L 8.7-10.4 mg/dL Phosphorus Level 4.8 2.4-5.1 mg/dL Magnesium Level 2.1 1.6-2.6 mg/dL Total Bilirubin 1.3 H 0.2-1.0 mg/dL Aspartate Amino Transferase (AST) 808 H 13-40 U/L Alanine Aminotransferase (ALT) 995 H 7-40 U/L Alkaline Phosphatase 153 H 46-116 U/L Total Protein 5.0 L 5.7-8.2 g/dL Albumin 2.8 L 3.2-4.8 g/dL Triglycerides Level 97 < 150 mg/dL Anisocytosis (manual) Slight Vicky Cells Few Schistocytes Few Eosinophils (%) (Auto) 0.0 0.0-7.0 % Eosinophils # (Auto) 0 0-0.8 10 ^3/uL Basophils # (Auto) 0 0-0.2 10 ^3/uL Blood Gas Critical Value Read Back Yes Blood Gas Notified Whom Lola pearce md Blood Gas Notified Time [id number] Blood Gas Notified By Tufting Creeler lola Morris 01/30/25 07:37 01/30/25 00:23 01/29/25 21:45 01/29/25 20:43 Range/Units Lactic Acid Level 11.4 *H 0.4-2.0 mmol/L Large Platelets Few Specimen Drawn By Tufting Creeler aileen jhaveri Troponin I High Sensitivity 7474 *H </=54 ng/L Vitamin D 25-Hydroxy 16.0 L 30.0-100 ng/mL Test 01/29/25 16:16 01/29/25 14:30 01/29/25 14:15 01/29/25 09:54 Range/Units Urine Opiates Screen Neg NEGATIVE Urine Fentanyl Screen Pos NEGATIVE Urine Barbiturates Screen Neg NEGATIVE Urine Phencyclidine Screen Neg NEGATIVE Urine Amphetamines Screen Neg NEGATIVE Urine Benzodiazepines Screen Pos NEGATIVE Urine Cocaine Screen Neg NEGATIVE Urine Cannabinoids Screen Neg NEGATIVE Thyroid Stimulating Hormone (TSH) 11.05 H 0.55-4.78 uIU/mL Urine Creatinine 19.64 L 30.0-125.0 mg/dL Urine Sodium 98 40-220 mmol/L Urine Total Protein 245.5 H 1-14 mg/dL Urine Color Light-orange Yellow Urine Clarity Turbid H Clear Urine pH 5.5 5.0-9.0 Urine Specific [place] 1.017 1.001-1.035 Urine Protein 2+ H Negative Urine Ketones Trace Negative Urine Blood 3+ H Negative /uL Urine Nitrite Negative Negative Urine Bilirubin Negative Negative Urine Urobilinogen Normal Negative mg/dL Urine Leukocyte Esterase Negative Negative /uL Urine RBC 130 0 - 3 /hpf Urine Microscopic WBC < 1 0-3 /HPF Urine Squamous Epithelial Cells Mod <5 /hpf Urine Amorphous Crystals Few None Seen /hpf Urine Bacteria Few H None Seen /hpf Urine Glucose Trace Normal mg/dL Microbiology Date/Time Source Procedure Growth Status 01/30/25 00:00 Nose MRSA Screen - Final Complete 01/29/25 10:49 Blood Blood Culture - Preliminary NO GROWTH AFTER 72 HOURS OF INCUBATION. Resulted 01/29/25 10:43 Sputum Gram Stain - Final Complete 01/29/25 10:43 Sputum Respiratory Culture - Final Complete Plan discussed with: Other ADDENDUM ADDENDUM ADDENDUM At 0655 this morning, met with Dr. Ledesma to discuss status of patient and the desire to proceed with surgery. Patient history, current status, and current medical history were discussed. After reviewing the completed treatments, current status and most recent labs, it is decided that the patient is a high risk candidate for surgery but is still a candidate. Vital signs have improved with the patient no longer requiring 3 vasopressor medications to maintain homeostasis, he is currently on one. Coagulation studies have improved. Unfortunately, hepatic and renal measures are continuing to worsen. Upon conclusion of our discussion, I go to the ICU to assess the patient further and obtain consents. Once in the ICU (07), patient is ID'd, reports and updates are obtained from MAR[facility] RUBBER and RT. Chart is reviewed extensively. Patient's mother is at the bedside. She is greeted and the anesthesia plan is discussed. Time was allowed for questions to be asked and answered. The seriousness of proceeding with surgery and the high risk nature of proceeding were discussed at length. Mother is accepting of the risks and wishes to proceed with the surgery. All medication infusions were checked, airway states was checked, and current vent setting obtained. Surgical team arrives at the bedside. Patient is placed on transport monitors and oxygen via ambubag/ett. Vital signs are stable. Patient is unevent fully transported to the OR. SRUTHI HAND CRNA Feb 02, 2025 17:07
[2025-02-02 18:05] LABS: Hematocrit 28.3 % (41.0-53.0); Hemoglobin 9.5 g/dL (13.5-17.5); Mean Corpuscular Hemoglobin 30.6 pg (28.0-32.0); Mean Corpuscular Volume 91.4 fL (80.0-100.0)
[2025-02-02 18:10] LABS: Chloride 102 mmol/L (98-107); Sodium 141 mmol/L (136-145)
[2025-02-02 18:11] LABS: Anion Gap 10 (5-15); Carbon Dioxide 29 mmol/L (20-31)
[2025-02-02 18:16] LABS: BUN/Creatinine Ratio 8.4 (10.0-20.0)
[2025-02-02 18:20] LABS: Blood Urea Nitrogen 56 mg/dL (9-23); Calcium 7.6 mg/dL (8.7-10.4); Glucose 118 mg/dL (74-106); Potassium 5.3 mmol/L (3.5-5.1)
[2025-02-02 18:43] LABS: Total Cells Counted 100.0 (100)
--- NOTE | 2025-02-02 19:06 | DVHPN2 ---
Progress Note Date Seen: Feb 02, 2025 Has the PT tested + for MRSA If YES, has PT been informed?: No Medical Necessity Reason Pt with a Central, PICC or Fol: Yes The following are medically ne: Central Line, Mora Catheter Reason for mora catheter: Nakul. Abd Surgery Subjective Patient reports: Other (remains intubated) Review of Systems: Deferred Objective vital signs Vital Sign Date Time Temp Pulse Resp B/P (MAP) Pulse Ox O2 Delivery O2 Flow Rate FiO2 02/02/25 18:45 103 16 118/71 (87) 96 121/75 (90) 02/02/25 18:26 30 02/02/25 18:00 Mechanical Ventilator+ 02/02/25 16:00 97.6 97.6 Total Intake and Output 02/01/25 02/01/25 02/02/25 14:59 22:59 06:59 Intake Total 786.25 ml 604.25 ml 1117.25 ml Output Total 405 ml 460 ml Balance 786.25 ml 199.25 ml 657.25 ml medications Current Medications Medications Dose Ordered Sig/Serenity Route Start Time Stop Time Status Last Admin Dose Admin Norepinephrine Bitartrate 250 ml @ 3.75 mls/hr Q24H IV 01/29/25 10:00 02/01/25 17:06 15 MLS/HR Midazolam HCl 50 ml @ 1 mls/hr Q24H IV 01/29/25 14:15 01/29/25 15:56 5 MLS/HR Fentanyl Citrate 250 ml @ 2.5 mls/hr Q24H IV 01/29/25 14:15 Piperacillin Sod/ Tazobactam Sod 100 ml @ 25 mls/hr Q12HR IV 01/29/25 22:00 02/02/25 09:57 25 MLS/HR Pantoprazole Sodium 40 mg DAILY IV 01/30/25 10:00 02/02/25 09:57 40 MG Phenylephrine HCl 250 ml @ 30 mls/hr Q8H20M IV 01/29/25 19:30 01/30/25 01:39 116.25 MLS/HR Levalbuterol HCl 0.625 mg Q4HR PRN NEB 01/29/25 20:00 02/02/25 06:23 0.625 MG Ipratropium [place] 0.5 mg Q4HPRN PRN NEB 01/29/25 20:00 02/02/25 06:23 0.5 MG Epinephrine HCl 250 ml @ 7.5 mls/hr Q24H IV 01/30/25 00:15 Vasopressin 20 units/Sodium Chloride 100 ml @ 9 mls/hr Q11H7M IV 01/30/25 07:30 02/02/25 10:41 9 MLS/HR Amino Acids 0 ml @ 0 mls/hr PER PHARMACY IV 02/01/25 11:15 Diagnostic Test (Pha) 1 strip Q6HR 02/01/25 18:00 02/02/25 17:50 1 STRIP Insulin Human Regular FOLLOW SLIDING SCALE Q6HR SC 02/01/25 18:00 02/02/25 11:36 2 UNITS Dextrose 50 ml UD IV 02/01/25 12:30 Calcium Gluconate 4.65 meq/ Magnesium Sulfate 16 meq/ Multivitamins 10 ml/Amino Acids/ Dextrose 824 ml @ 34 mls/hr [id number] IV 02/01/25 22:00 02/02/25 21:59 02/01/25 22:37 34 MLS/HR Bumetanide 25 mg/ Miscellaneous 100 ml @ 4 mls/hr Q24H IV 02/01/25 14:00 02/02/25 14:25 4 MLS/HR Albumin Human 100 ml @ 100 mls/hr PRN PRN IV 02/02/25 09:45 02/02/25 13:52 100 MLS/HR Sodium Chloride 10 meq/Calcium Gluconate 4.65 meq/Magnesium Sulfate 8 meq/ Multivitamins 10 ml/Amino Acids/ Dextrose 924.5 ml @ 39 mls/hr [id number] IV 02/02/25 22:00 02/03/25 21:59 Examination: GENERAL:Abnormal, HEENT:Abnormal, MSK:Abnormal, SKIN:Abnormal, NEURO:Abnormal laboratory and microbiology Laboratory Tests 02/02/25 17:47 Test 02/02/25 17:47 Range/Units Serum Glucose 118 H 74-106 mg/dL Microbiology Date/Time Source Procedure Growth Status 01/30/25 00:00 Nose MRSA Screen - Final Complete 01/29/25 10:49 Blood Blood Culture - Preliminary NO GROWTH AFTER 72 HOURS OF INCUBATION. Resulted 01/29/25 10:43 Sputum Gram Stain - Final Complete 01/29/25 10:43 Sputum Respiratory Culture - Final Complete Problem List/Assessment/Plan Problem List/Assessment/Plan Acute kidney injury likely ischemic ATN in the setting of shock, FeNa > 2%, nonoliguric Acute respiratory failure, intubated on ventilator Status post cardiac arrest Anoxic encephalopathy//brain herniation Hyperkalemia secondary to above Metabolic acidosis anion gap secondary to lactic acidosis secondary to reduced perfusion from hemorrhage Hemodynamic shock from bleeding Acute blood loss anemia/post op Status post laparoscopic cholecystectomy on 01/28/25 [facility] Status post ex lap, 01/29 Positive troponins NSTEMI--likely demand ischemia Shock liver Hypokalemia Recommendations Hemodialysis today for solute clearance Family aware dialysis is futile and does not fix his underlying condition--however patient family wanted to continue everything for now Pending brain perfusion study Anoxic encephalopathy/pupils fixed and dilated Next dialysis will be on Monday Kevin catheter by Dr. Javier Plan discussed with: Other My Orders My Orders Orders - SILVIA NOONAN MD Procedure Category Date Status Time Hemodialysis Orders ORDERS 02/02/25 Transmitted 07:00 Dialysis Nursing YANET 02/02/25 In Process Message 07:00 Document Fluid Input YANET 02/02/25 In Process And Outpu 07:00 Albumin 25% (Albutein) PHA 02/02/25 In Process 09:45 Hepatitis B Surface LAB 02/02/25 In Process Antigen 09:44 Dietary Evaluation Review Recommendations by RD: PPN/TPN Comments: 1) Increase TPN rate to meet at least 75% of estimated daily needs 2) Advance to renal cardiac diet when medically feasible, pending ST approval 3) Follow-up with cardiology, pulmonology, nephrology, neurology, and gastroenterology 4) Continue to monitor I&O, labs, and skin integrity Expected Outcomes/Goals: 1) nutritional support to meet at least 75% of estimated daily needs 2) labs and wound to improve 3) diet to advance 4) gradual wt loss 5) f/u in 2-3 days Critical Care Time (mins): 39 SILVIA NOONAN MD Feb 02, 2025 19:06
--- NOTE | 2025-02-02 19:25 | DVHPN2 ---
Progress Note Date Seen: Feb 02, 2025 Has the PT tested + for MRSA If YES, has PT been informed?: No Medical Necessity Reason Pt with a Central, PICC or Fol: Yes The following are medically ne: Central Line, Mora Catheter Reason for mora catheter: Nakul. Abd Surgery Subjective Review of Systems Pt's condition unchanged.Per RN. underwent HD. 3 L withdrawn. Tolerated well. However, required Levophed support in addition to Vasopressin. Currently 2 mgg/kg of Levo. 300 mL u/o. 40 mL of ss fluid from drain. Pt's mother and brother at the bedside. Mother asked for a prayer. Prayer held with mother, brother and Scott (RN). Objective vital signs Vital Sign Date Time Temp Pulse Resp B/P (MAP) Pulse Ox O2 Delivery O2 Flow Rate FiO2 02/02/25 18:45 103 16 118/71 (87) 96 121/75 (90) 02/02/25 18:26 30 02/02/25 18:00 Mechanical Ventilator+ 02/02/25 16:00 97.6 97.6 Total Intake and Output 02/01/25 02/01/25 02/02/25 15:00 23:00 07:00 Intake Total 782.50 ml 667.25 ml 1077.25 ml Output Total 405 ml 460 ml Balance 782.50 ml 262.25 ml 617.25 ml medications Current Medications Medications Dose Ordered Sig/Serenity Route Start Time Stop Time Status Last Admin Dose Admin Norepinephrine Bitartrate 250 ml @ 3.75 mls/hr Q24H IV 01/29/25 10:00 02/01/25 17:06 15 MLS/HR Midazolam HCl 50 ml @ 1 mls/hr Q24H IV 01/29/25 14:15 01/29/25 15:56 5 MLS/HR Fentanyl Citrate 250 ml @ 2.5 mls/hr Q24H IV 01/29/25 14:15 Piperacillin Sod/ Tazobactam Sod 100 ml @ 25 mls/hr Q12HR IV 01/29/25 22:00 02/02/25 09:57 25 MLS/HR Pantoprazole Sodium 40 mg DAILY IV 01/30/25 10:00 02/02/25 09:57 40 MG Phenylephrine HCl 250 ml @ 30 mls/hr Q8H20M IV 01/29/25 19:30 01/30/25 01:39 116.25 MLS/HR Levalbuterol HCl 0.625 mg Q4HR PRN NEB 01/29/25 20:00 02/02/25 06:23 0.625 MG Ipratropium [place] 0.5 mg Q4HPRN PRN NEB 01/29/25 20:00 02/02/25 06:23 0.5 MG Epinephrine HCl 250 ml @ 7.5 mls/hr Q24H IV 01/30/25 00:15 Vasopressin 20 units/Sodium Chloride 100 ml @ 9 mls/hr Q11H7M IV 01/30/25 07:30 02/02/25 10:41 9 MLS/HR Amino Acids 0 ml @ 0 mls/hr PER PHARMACY IV 02/01/25 11:15 Diagnostic Test (Pha) 1 strip Q6HR 02/01/25 18:00 02/02/25 17:50 1 STRIP Insulin Human Regular FOLLOW SLIDING SCALE Q6HR SC 02/01/25 18:00 02/02/25 11:36 2 UNITS Dextrose 50 ml UD IV 02/01/25 12:30 Calcium Gluconate 4.65 meq/ Magnesium Sulfate 16 meq/ Multivitamins 10 ml/Amino Acids/ Dextrose 824 ml @ 34 mls/hr [id number] IV 02/01/25 22:00 02/02/25 21:59 02/01/25 22:37 34 MLS/HR Bumetanide 25 mg/ Miscellaneous 100 ml @ 4 mls/hr Q24H IV 02/01/25 14:00 02/02/25 14:25 4 MLS/HR Albumin Human 100 ml @ 100 mls/hr PRN PRN IV 02/02/25 09:45 02/02/25 13:52 100 MLS/HR Sodium Chloride 10 meq/Calcium Gluconate 4.65 meq/Magnesium Sulfate 8 meq/ Multivitamins 10 ml/Amino Acids/ Dextrose 924.5 ml @ 39 mls/hr [id number] IV 02/02/25 22:00 02/03/25 21:59 Examination Neuro. Unchanged. Dilated fixed pupils. CV. Tachycardic 100s and hypotensive. Hemodynamically unstable on vasopressor support. Levophed at 2 mcg/kg and Vasopressin unchanged dose. CVP 5-8 Pulmonary: Intubated with mechanical ventilator support. GI: Soft, obese, non distended and non tender. Dressing C/D/I. Drain with scant serosanguineous fluid. OGT in place. . Mora catheter in place. Extremities; No edema Resolved facial and neck edema. laboratory and microbiology Laboratory Tests 02/02/25 17:47 Test 02/02/25 17:47 Range/Units Serum Glucose 118 H 74-106 mg/dL Microbiology Date/Time Source Procedure Growth Status 01/30/25 00:00 Nose MRSA Screen - Final Complete 01/29/25 10:49 Blood Blood Culture - Preliminary NO GROWTH AFTER 72 HOURS OF INCUBATION. Resulted 01/29/25 10:43 Sputum Gram Stain - Final Complete 01/29/25 10:43 Sputum Respiratory Culture - Final Complete Labs and/or images reviewed: Labs reviewed by me Problem List/Assessment/Plan Problems(with codes): (1) Thrombocytopenia (2) Cerebral edema (3) Tonsillar hernia into foramen magnum (4) Shock liver (5) Ventilator dependent (6) ARF (acute renal failure) Problem List/Assessment/Plan Neuro: Appreciate neurology input and assistance. CT revealed Cerebral edema and tonsillar herniation. Poor prognosis. Pt too unstable for prolonged MRI study. Per neurology, no need for MRI and surgical decompression not indicated. Patient's mother, sister, brother in law and brother aware of CT findings, limited treatment options and poor prognosis. Dr. Guillen and I met with pt's family yesterday/. EEG no electric activity. Family requested to proceed with cerebral perfusion study. Pt's mother discussed her feelings about her interaction with him during his initial consultation. He apologized, stating he was affected by the situation, that he did not realize nor he intended to come across in a non empathetic manner. He was emotionally affected by the current patient's situation. He stated he would remember this from now on. Pt's mother and son were very grateful for the discussion and accepted his apology. CV: Hemodynamic instability secondary to hemorrhagic shock,stable. Continue vasopressor support.Titrate as needed to maintain MAP 65. Decreasing vasopressor requirements. Elevated troponin, likely secondary and/or worsened by hemodynamic stress and CPR. Can't rule out ischemia. Cardiology assistance appreciated. Mechanical DVT prophylaxis. Pulmonary: VDRF. Continue ventilator. Appreciate pulmonary medicine assistance. R/O PE. VQ scan can't be done. Can't consider CTA chest given ARF. Now that he is on HD, option given to patient's mother to proceed with CTA. However iit could further affect kidneys. She refused at the time. GI: NPO. No TF given high vasopressor requirements. Continue TPN. Continue GI prophylaxis. Hepatic shock, improving. Improving transaminases. Appreciate GI assistance. . ARF secondary to hemorrhagic shock. worsening. May need HD. Awaiting nephrology recommendations. Strict I&O. Mora to gravity. Resolved metabolic acidosis. Appreciate nephrology assistance. Replace/correct electrolytes, Bumex gtt and IVFs per nephrology. Heme/ID. Received TXA, PCC, 4 u PRBC. 3 FFP and 2 u Cryoprecipitate, 1 Plt. Hemorrhagic shock and coagulopathy.Coagulopathy resolving. Hgb stable. Thrombocytopenia, possible consumptive. Repeat labs AM. Appreciate hematology assistance. Leukocytosis, likely reactie. Repeat Blood Cx and obtain UCx. Prophylactic antibiotics. Endocrine: Tight glycemic control. Skin :Skin care and pressure ulcer precautions. Patient's mother/ family still wish to pursue with all possible treatment options. They are aware that his condition still remains critical and prognosis is poor. Will proceed with full code and all treatment options available. Tolerated packing removal well. Patient's family questions have been answered. I spent approximately 30-45 mins with the patient and RN Plan discussed with: Other (Mother, brother and RN) My Orders My Orders Orders - JITENDRA ZAMORA MD Procedure Category Date Status Time Chest Portable XY 02/02/25 Resulted 04:00 Complete Blood Count LAB 02/03/25 Verified 04:00 Comprehensive LAB 02/03/25 Verified Metabolic Panel 04:00 Prothrombin Time W/ LAB 02/03/25 Verified INR 04:00 Partial LAB 02/03/25 Verified Thromboplastin Time 04:00 Amino Acid PHA 02/02/25 In Process Infusion... W/Sodium 22:00 Phosphorus LAB 02/03/25 Verified 04:00 Magnesium LAB 02/03/25 Verified 04:00 Triglycerides LAB 02/03/25 Verified 04:00 Tpn Per Pharmacy YANET 02/02/25 In Process 22:00 Blood Culture EDMUNDO 02/02/25 Logged 19:02 Urine Bacterial EDMUNDO 02/02/25 Logged Culture 19:04 Dietary Evaluation Review Recommendations by RD: PPN/TPN Comments: 1) Increase TPN rate to meet at least 75% of estimated daily needs 2) Advance to renal cardiac diet when medically feasible, pending ST approval 3) Follow-up with cardiology, pulmonology, nephrology, neurology, and gastroenterology 4) Continue to monitor I&O, labs, and skin integrity Expected Outcomes/Goals: 1) nutritional support to meet at least 75% of estimated daily needs 2) labs and wound to improve 3) diet to advance 4) gradual wt loss 5) f/u in 2-3 days JITENDRA ZAMORA MD Feb 02, 2025 19:25
[2025-02-02] MEDS: CALCIUM GLUC IV NR (21:52)
[2025-02-02] MEDS: [UNRECOGNIZED DRUG - OTHER] IV NR (21:52)
[2025-02-02] MEDS: SODIUM CHLORIDE IV NR (21:52)
[2025-02-03] VITALS (104 sets, daily range): BP systolic 95–135; BP diastolic 54–85; PULSE 92–122; RESP 13–21; TEMP 97.2–98.4; O2SAT 92–100
[2025-02-03 03:52] LABS: Hematocrit 26.4 % (41.0-53.0); Hemoglobin 8.8 g/dL (13.5-17.5); Mean Corpuscular Hemoglobin 29.9 pg (28.0-32.0); Mean Corpuscular Volume 90.2 fL (80.0-100.0)
[2025-02-03 04:00] LABS: INR 1.04 (0.9-1.15); Partial Thromboplastin Time 31.4 SEC (24.5-34.5); Prothrombin Time 11.0 sec (9.3-11.8)
[2025-02-03 04:04] LABS: Anion Gap 10 (5-15); BUN/Creatinine Ratio 8.5 (10.0-20.0); Chloride 100 mmol/L (98-107); Sodium 141 mmol/L (136-145); Triglycerides 93 mg/dL (< 150)
[2025-02-03 04:05] LABS: Bilirubin, Total 1.0 mg/dL (0.2-1.0)
[2025-02-03 04:25] LABS: Magnesium 2.2 mg/dL (1.6-2.6)
[2025-02-03 04:26] LABS: Alanine Aminotransferase 735 U/L (7-40); Albumin 3.2 g/dL (3.2-4.8); Alkaline Phosphatase 172 U/L (46-116); Blood Urea Nitrogen 62 mg/dL (9-23); Calcium 7.7 mg/dL (8.7-10.4); Carbon Dioxide 31 mmol/L (20-31); Glucose 115 mg/dL (74-106); Potassium 6.1 mmol/L (3.5-5.1); Total Protein 5.4 g/dL (5.7-8.2)
[2025-02-03 04:38] LABS: Nucleated Red Blood Cells % 3.0 %; Smudge Cells 1 /100 WBC; Total Cells Counted 100.0 (100)
[2025-02-03] MEDS: DEXTROSE (50%) 50ML SYRG IV ONE (05:00)
[2025-02-03] MEDS: InsuLIN REG 1unit/0.01ml Soln (100units/ml) SC ONE (05:02)
--- NOTE | 2025-02-03 05:26 | DVH ---
CHEST RADIOGRAPH Indication: PT IS INTUBATED Technique: Single frontal view of the chest was obtained COMPARISON: XY CHEST PORTABLE on DOS: 02/02/25, XY CHEST PORTABLE on DOS: 02/01/25, XY CHEST PORTABLE o n DOS: 02/01/25, XY CHEST PORTABLE on DOS: 01/31/25, XY CHEST PORTABLE on DOS: 01/30/25 FINDINGS: Lines and Tubes: Slight interval retraction of the endotracheal tube such that the tip now projects a pproximately 3.3 cm above the level of the [place]ghan. Remaining lines and tubes unchanged. Lungs: Clear Pleura: No effusion. No pneumothorax. Cardiomediastinal contours: Unremarkable Bones: Unremarkable IMPRESSION: 1. Slight interval retraction of the endotracheal tube such that the tip now projects approximately 3 .3 cm above the level of the [place]ghan. Remaining lines and tubes unchanged. 2. No evidence of acute cardiopulmonary process.
--- NOTE | 2025-02-03 05:54 | DVHOP ---
DATE OF SURGERY: 02/02/2025 PREOPERATIVE DIAGNOSES: Hemoperitoneum, status post laparotomy with intra-abdominal packing. POSTOPERATIVE DIAGNOSES: Hemoperitoneum, status post laparotomy with intra-abdominal packing. PROCEDURE: Exploratory laparotomy with removal of intra-abdominal packing. SURGEON: Robbin Ledesma MD FOOD AND BEVERAGE SERVER: None. ANESTHESIOLOGIST: Clayton Zuleta CRNA ANESTHESIA: General by mean of endotracheal intubation. INTRAOPERATIVE FINDINGS: Two lap pads within the abdominal wall, which were removed at the completion of the procedure. Upon removal of the packing, there was no active bleeding from the liver bed. There was a very small oozing from the hepatoduodenal ligament, suspected to be from removing the packing from the posterior aspect of the liver, visualized parts of small bowel, colon and liver are viable. No small bowel distention. No active source of bleeding identified. ESTIMATED BLOOD LOSS: Minimal. IV FLUIDS: Per anesthesia charting. URINE OUTPUT: Per RN charting. DRAINS: A 19 Robby drain. SPECIMENS: None. COMPLICATIONS: None. DISPOSITION: Procedure well tolerated, transferred to the Intensive Care Unit in critical condition. INDICATIONS FOR PROCEDURE: The patient is a 24-year-old male who underwent a laparoscopic cholecystectomy on 01/29. Postoperatively, he was stable for discharge. He was discharged home. Per mother, the patient was hungry, but had some nausea and vomiting. He developed some shortness of breath and right leg pain approximately 10:00 to 11:00 p.m. She called at 8:30 in the morning stating that he was short of breath. Shortly thereafter, the patient collapsed, calling 911. The patient's mother provided CPR to the best of her abilities. EMS arrived to the patient's house, placed him on the floor, and proceed with CPR. Per the patient's mother, it took approximately an hour to gain a pulse. He was then transported to the Emergency Department at this institution where he once again arrested, requiring resuscitation. Reported downtime was 10 minutes at that time. The patient, upon arrival, had fixed and dilated pupils, clinically consistent with anoxic brain injury. His workup revealed a low hemoglobin, severe acidosis, cardiomyopathy, and elevated transaminases consistent with hepatic shock. The patient was immediately taken to the operating room, where a laparotomy was performed. Approximately 500-750 mL of thrombus and dark pink sanguineous fluid was identified. The thrombus and dark sanguineous fluid was evacuated without any active source of bleeding. At that time, the patient had Surgiflo and FloSeal placed, and he was transferred to the recovery room after completion of the procedure. He was given packed red blood cells, FFP, prothrombin complex concentrate, as well as tranexamic acid as he was found to be further coagulopathic. He was then transferred to the Step-Down Unit as overflow ICU. Night labs demonstrated improvement of the coagulopathy, with stable hemoglobin. The nurse's assessment at the time was the patient had developed a distended midabdomen and the drain had collected 300 mL of thin red sanguineous fluid. Given the assessment of the nurse, the patient was taken back to the operating room for a laparotomy. At that time, no active source was identified without any hemoperitoneum or thrombus. The decision was made to pack the operative site with 2 lap pads and closed the abdomen for a take back in 48 hours. The patient's condition has somewhat improved from the hepatic standpoint and coagulopathy. His drain has collected serosanguineous fluid throughout the procedure. Hemoglobin had been stable. This morning, hemoglobin was 8.4, suspected to be from multiple blood draws as the drain still collected serosanguineous fluid. However, the renal function has worsened and the patient will be initiating hemodialysis. A very lengthy discussion also had with the patient yesterday along with Dr. Guillen. The patient's family are aware of the extremely poor prognosis with regards to meaningful recovery. EEG supports the clinical findings. However, the patient's mother states that she would like to proceed with the serial perfusion test and remain with full treatment and Full Code until the completion of the studies in order to make final decisions. She still has a very strong hoahaoism belief and nicko. Given the patient's family's request, we will continue with her wishes. Therefore, the patient was scheduled for removal of the packing as planned. I met with the patient's mother this morning. The procedure, risks, and benefits were explained. She had no questions at that time. She still has very strong nicko and believes that he can recover, although she has been made aware since admission of his poor prognosis. At the time, the patient remained intubated on mechanical ventilator support. Levophed drip has been discontinued. He has been initiated on TPN. A left subclavian hemodialysis catheter was placed. He remains on vasopressin. The drain observed serosanguineous fluid within the bulb. Abdomen remained nondistended. Face and neck are not swollen. Potassium this morning was 6. He was given 10 units of insulin and 0.5 amp of D50, with a repeat potassium of 5.1. Shortly after assessment and discussion with the patient's mother, the patient was taken to the operating room in order to proceed with the scheduled intervention. Again, the patient's mother had no questions at the time and she agreed to proceed. DESCRIPTION OF PROCEDURE: The patient was taken to the operating room and placed in the dorsal decubitus position on the operating table. Once adequate anesthesia was achieved, the drain was removed. The abdomen and pelvis were widely prepped and draped in the usual sterile fashion. The vic were removed. The skin was , getting access to the anterior sheath suture, which was cut, and unraveled/removed giving access to the posterior sheath closure, which suture was cut, also unraveled and removed, gaining access to the peritoneal cavity. A Bookwalter retractor was placed, obtaining adequate visualization of the abdominal cavity. Upon opening, there was no serosanguineous fluid within the abdominal cavity observed. The omentum was retracted, observing a very small amount of thin serosanguineous-appearing fluid in the posterior aspect of the right hepatic lobe . The omentum was observing the previously placed lap pads in the right upper quadrant region/posterior aspect of the right hepatic lobe. The abdominal cavity was copiously irrigated with warm sterile saline solution. The sponges were carefully and slowly removed from the abdominal cavity. Two sponges in total were removed. The fluid was evacuated, showing a small amount of serosanguineous fluid in the area. The gallbladder fossa was found to be hemostatic. There was no evidence of any active bleeding at the time. However, upon careful inspection, a small amount of bleeding was noted from the hepatoduodenal ligament, which I suspected to be from the retrieval of the lap pads. At this time, Surgiflo was applied to the hepatoduodenal ligament as well as the right posterior aspect of the right hepatic lobe/gallbladder fossa. Surgicel SNoW was also applied to the area. The abdominal cavity was carefully observed for approximately 20-30 minutes. There was no clear source of active bleeding after a careful detailed inspection. A 19 Robby was placed in the posterior aspect of the right hepatic lobe. It was exteriorized through the right upper quadrant medial trocar site and fixated through the skin by means of 2-0 silk suture. The posterior sheath was closed with double-stranded 0 Vicryl suture. The anterior sheath was closed with a double-stranded 1 PDS suture x 2. The wound was washed and dried and skin was closed with vic. The abdomen was washed and dried and sterile dressings were applied. The patient tolerated well the procedure. He was transferred to the Intensive Care Unit, remaining in a critical condition. The patient's mother will be informed about the intraoperative findings and procedure. MD LAYA Mora/PRASANNA TID: [id number] RECEIPT: [id number] MTDD
--- NOTE | 2025-02-03 06:23 | DVHPN2 ---
Progress Note Date Seen: Feb 03, 2025 Has the PT tested + for MRSA If YES, has PT been informed?: No Medical Necessity Reason Pt with a Central, PICC or Fol: Yes The following are medically ne: Central Line, Mora Catheter Reason for mora catheter: Nakul. Abd Surgery Subjective Review of Systems Per RN, pt's condition unchanged. Pt's mother sleeping at the bedside. I did not want to disturb her, as she in probably not getting much rest. Objective vital signs Vital Sign Date Time Temp Pulse Resp B/P (MAP) Pulse Ox O2 Delivery O2 Flow Rate FiO2 02/03/25 05:47 14 97 Mechanical Ventilator+ 30 30 02/03/25 05:47 99 02/03/25 05:45 112/66 (81) 120/73 (89) 02/03/25 00:00 97.3 97.3 Total Intake and Output 02/02/25 02/02/25 02/03/25 14:59 22:59 06:59 Intake Total 624.75 ml 347.50 ml 154 ml Output Total 3000 ml 540 ml 380 ml Balance -2375.25 ml -192.50 ml -226 ml medications Current Medications Medications Dose Ordered Sig/Serenity Route Start Time Stop Time Status Last Admin Dose Admin Norepinephrine Bitartrate 250 ml @ 3.75 mls/hr Q24H IV 01/29/25 10:00 02/01/25 17:06 15 MLS/HR Midazolam HCl 50 ml @ 1 mls/hr Q24H IV 01/29/25 14:15 01/29/25 15:56 5 MLS/HR Fentanyl Citrate 250 ml @ 2.5 mls/hr Q24H IV 01/29/25 14:15 Piperacillin Sod/ Tazobactam Sod 100 ml @ 25 mls/hr Q12HR IV 01/29/25 22:00 02/02/25 21:31 25 MLS/HR Pantoprazole Sodium 40 mg DAILY IV 01/30/25 10:00 02/02/25 09:57 40 MG Phenylephrine HCl 250 ml @ 30 mls/hr Q8H20M IV 01/29/25 19:30 01/30/25 01:39 116.25 MLS/HR Levalbuterol HCl 0.625 mg Q4HR PRN NEB 01/29/25 20:00 02/02/25 06:23 0.625 MG Ipratropium Cotuit 0.5 mg Q4HPRN PRN NEB 01/29/25 20:00 02/02/25 06:23 0.5 MG Epinephrine HCl 250 ml @ 7.5 mls/hr Q24H IV 01/30/25 00:15 Vasopressin 20 units/Sodium Chloride 100 ml @ 9 mls/hr Q11H7M IV 01/30/25 07:30 02/02/25 21:30 9 MLS/HR Amino Acids 0 ml @ 0 mls/hr PER PHARMACY IV 02/01/25 11:15 Diagnostic Test (Pha) 1 strip Q6HR 02/01/25 18:00 02/03/25 05:07 1 STRIP Insulin Human Regular FOLLOW SLIDING SCALE Q6HR SC 02/01/25 18:00 02/02/25 11:36 2 UNITS Dextrose 50 ml UD IV 02/01/25 12:30 Bumetanide 25 mg/ Miscellaneous 100 ml @ 4 mls/hr Q24H IV 02/01/25 14:00 02/02/25 14:25 4 MLS/HR Albumin Human 100 ml @ 100 mls/hr PRN PRN IV 02/02/25 09:45 02/02/25 13:52 100 MLS/HR Sodium Chloride 10 meq/Calcium Gluconate 4.65 meq/Magnesium Sulfate 8 meq/ Multivitamins 10 ml/Amino Acids/ Dextrose 924.5 ml @ 39 mls/hr [id number] IV 02/02/25 22:00 02/03/25 21:59 02/02/25 21:52 39 MLS/HR Examination Neuro. Unchanged. Dilated fixed pupils. CV. Mildly tachycardic 90s and hypotensive. Hemodynamically unstable on vasopressor support. Levophed off and Vasopressin unchanged dose. CVP 8 Pulmonary: Intubated with mechanical ventilator support 500/14/30%/+7. GI: Soft, obese, non distended and non tender. Dressing C/D/I. Drain with thin serosanguineous fluid. OGT in place. . Mora catheter in place.U/O 300 mL Extremities; No edema Resolved facial and neck edema. Mild orbital edema laboratory and microbiology Laboratory Tests 02/03/25 03:15 Test 02/03/25 03:15 Range/Units Serum Glucose 115 H 74-106 mg/dL Microbiology Date/Time Source Procedure Growth Status 01/30/25 00:00 Nose MRSA Screen - Final Complete 01/29/25 10:49 Blood Blood Culture - Preliminary NO GROWTH AFTER 72 HOURS OF INCUBATION. Resulted 01/29/25 10:43 Sputum Gram Stain - Final Complete 01/29/25 10:43 Sputum Respiratory Culture - Final Complete Labs and/or images reviewed: Labs reviewed by me Problem List/Assessment/Plan Problems(with codes): (1) ARF (acute renal failure) (2) Ventilator dependent (3) Shock liver (4) Tonsillar hernia into foramen magnum (5) Cerebral edema (6) Thrombocytopenia Problem List/Assessment/Plan Neuro: Appreciate neurology input and assistance. CT revealed Cerebral edema and tonsillar herniation. Poor prognosis. Pt too unstable for prolonged MRI study. Per neurology, no need for MRI and surgical decompression not indicated. Patient's mother, sister, brother in law and brother aware of CT findings, limited treatment options and poor prognosis. Dr. Guillen and I met with pt's family. EEG no electric activity. Family requested to proceed with cerebral perfusion study. If not possible only other option would be CTA brain. Would have to discuss with the pt's mother, to inform her about kidney effects. CV: Hemodynamic instability secondary to hemorrhagic shock, stable. Continue vasopressor support.Titrate as needed to maintain MAP 65. Decreasing vasopressor requirements. Elevated troponin, likely secondary and/or worsened by hemodynamic stress and CPR. Can't rule out ischemia. Cardiology assistance appreciated. Mechanical DVT prophylaxis. Pulmonary: VDRF. Continue ventilator. Appreciate pulmonary medicine assistance. R/O PE. VQ scan can't be done. Can't consider CTA chest given ARF. Now that he is on HD, option given to patient's mother to proceed with CTA. However iit could further affect kidneys. She refused at the time. GI: NPO. No TF given high vasopressor requirements. Continue TPN. Continue GI prophylaxis. Hepatic shock, improving. Improving transaminases. Appreciate GI assistance. . ARF secondary to hemorrhagic shock. worsening. May need HD. Awaiting nephrology recommendations. Strict I&O. Mora to gravity. Resolved metabolic acidosis. Appreciate nephrology assistance. Replace/correct electrolytes. HD Bumex gtt and IVFs per nephrology. Hyperkalemia. Insulin and 1/2 amp D50 given. Heme/ID. Received TXA, PCC, 4 u PRBC. 3 FFP and 2 u Cryoprecipitate, 1 Plt. Hemorrhagic shock and coagulopathy.Coagulopathy resolving. Hgb stable. Thrombocytopenia, possible consumptive. Repeat labs AM. Appreciate hematology assistance. Leukocytosis, likely reactive. Previous Cx negative todate. Pending Blood Cx and UCx. Prophylactic antibiotics. Endocrine: Tight glycemic control. Skin :Skin care and pressure ulcer precautions. Patient's mother/ family still wish to pursue with all possible treatment options. They are aware that his condition still remains critical and prognosis is poor. Will proceed with full code and all treatment options available. Tolerated packing removal well. Will discuss pt status with mother later today and address any questions. I spent approximately 25 mins with the patient and RN Plan discussed with: Other (RN) My Orders My Orders Orders - JITENDRA ZAMORA MD Procedure Category Date Status Time Amino Acid PHA 02/02/25 In Process Infusion... W/Sodium 22:00 Tpn Per Pharmacy YANET 02/02/25 In Process 22:00 Blood Culture EDMUNDO 02/02/25 In Process 19:02 Urine Bacterial EDMUNDO 02/02/25 In Process Culture 19:04 Chest Portable XY 02/03/25 Resulted 04:00 Dietary Evaluation Review Recommendations by RD: PPN/TPN Comments: 1) Increase TPN rate to meet at least 75% of estimated daily needs 2) Advance to renal cardiac diet when medically feasible, pending ST approval 3) Follow-up with cardiology, pulmonology, nephrology, neurology, and gastroenterology 4) Continue to monitor I&O, labs, and skin integrity Expected Outcomes/Goals: 1) nutritional support to meet at least 75% of estimated daily needs 2) labs and wound to improve 3) diet to advance 4) gradual wt loss 5) f/u in 2-3 days JITENDRA ZAMORA MD Feb 03, 2025 06:22
[2025-02-03 07:13] LABS: Base Excess 4.7 mmol/L (-2.0-3.0)
--- NOTE | 2025-02-03 08:27 | DVHPN2 ---
Progress Note - Dictate Date Seen: Feb 03, 2025 Has the PT tested + for MRSA If YES, has PT been informed?: No Medical Necessity Reason Pt with a Central, PICC or Fol: Yes The following are medically ne: Central Line, Mora Catheter Reason for mora catheter: Nakul. Abd Surgery vital signs Vital Sign Date Time Temp Pulse Resp B/P (MAP) Pulse Ox O2 Delivery O2 Flow Rate FiO2 02/03/25 08:00 92 14 120/75 (90) 98 30 02/03/25 05:47 Mechanical Ventilator+ 02/03/25 04:00 97.3 97.3 Total Intake and Output 02/02/25 02/02/25 02/03/25 15:00 23:00 07:00 Intake Total 636.00 ml 366.25 ml 77 ml Output Total 3000 ml 540 ml 380 ml Balance -2364.00 ml -173.75 ml -303 ml medications Current Medications Medications Dose Ordered Sig/Serenity Route Start Time Stop Time Status Last Admin Dose Admin Norepinephrine Bitartrate 250 ml @ 3.75 mls/hr Q24H IV 01/29/25 10:00 02/01/25 17:06 15 MLS/HR Midazolam HCl 50 ml @ 1 mls/hr Q24H IV 01/29/25 14:15 01/29/25 15:56 5 MLS/HR Fentanyl Citrate 250 ml @ 2.5 mls/hr Q24H IV 01/29/25 14:15 Piperacillin Sod/ Tazobactam Sod 100 ml @ 25 mls/hr Q12HR IV 01/29/25 22:00 02/02/25 21:31 25 MLS/HR Pantoprazole Sodium 40 mg DAILY IV 01/30/25 10:00 02/02/25 09:57 40 MG Phenylephrine HCl 250 ml @ 30 mls/hr Q8H20M IV 01/29/25 19:30 01/30/25 01:39 116.25 MLS/HR Levalbuterol HCl 0.625 mg Q4HR PRN NEB 01/29/25 20:00 02/02/25 06:23 0.625 MG Ipratropium Carmel 0.5 mg Q4HPRN PRN NEB 01/29/25 20:00 02/02/25 06:23 0.5 MG Epinephrine HCl 250 ml @ 7.5 mls/hr Q24H IV 01/30/25 00:15 Vasopressin 20 units/Sodium Chloride 100 ml @ 9 mls/hr Q11H7M IV 01/30/25 07:30 02/02/25 21:30 9 MLS/HR Amino Acids 0 ml @ 0 mls/hr PER PHARMACY IV 02/01/25 11:15 Diagnostic Test (Pha) 1 strip Q6HR 02/01/25 18:00 02/03/25 05:07 1 STRIP Insulin Human Regular FOLLOW SLIDING SCALE Q6HR SC 02/01/25 18:00 02/02/25 11:36 2 UNITS Dextrose 50 ml UD IV 02/01/25 12:30 Bumetanide 25 mg/ Miscellaneous 100 ml @ 4 mls/hr Q24H IV 02/01/25 14:00 02/02/25 14:25 4 MLS/HR Albumin Human 100 ml @ 100 mls/hr PRN PRN IV 02/02/25 09:45 02/02/25 13:52 100 MLS/HR Sodium Chloride 10 meq/Calcium Gluconate 4.65 meq/Magnesium Sulfate 8 meq/ Multivitamins 10 ml/Amino Acids/ Dextrose 924.5 ml @ 39 mls/hr [id number] IV 02/02/25 22:00 02/03/25 21:59 02/02/25 21:52 39 MLS/HR laboratory and microbiology Laboratory Tests 02/03/25 03:15 Test 02/03/25 03:15 Range/Units Serum Glucose 115 H 74-106 mg/dL Assessment/Plan Still being managed in ICU. Still intubated and on pressure and vent supports. Still no reflexes. Pupils dilated and fixed Has been evaluated by Neurology: hypoxic/metabolic Encephalopathy Echocardiogram revealed no WMA and also revealed good EF. It also revealed increased Pulmonary Artery Pressure in favor of component of Pulmonary Hypertension. s/p Hemodialysis Patient is a 24-year-old gentleman who was originally brought to the hospital for post arrest. Patient is seen in postop area. Patient is intubated and on multiple pressor supports. Patient is not source of history. Information was obtained by reviewing the chart, talking to patient's family/mother and communicating with staff and reviewing outside records ([facility]). Patient did have elective outpatient laparoscopic cholecystectomy in [facility] on January 28 2025. As per mother, after going home, patient was feeling very hungry and was eating and drinking a lot. He started feeling abdominal pain with nausea at night and in the morning was short of breath. As per mother: patient has stopped breathing in the morning and family called 911. As per mother, as per guidance of 911, family started CPR until EMS arrived. Patient was intubated and was brought to the hospital by EMS. Since arrival to [facility], patient was seen by surgeon who took the patient to operating room and performed laparotomy (there was hepatic hematoma). Postoperatively, the patient has remained hypotensive. There is signs for multiorgan involvement. Patient was not alert and did not complain of any chest pains. Labs revealed increased troponin. Cardiology is involved for cardiac aspects of care and abnormal troponin. First available EKG reveals sinus tachycardia with no specific ST-T changes. Telemetry had revealed sinus tachycardia throughout the stay. Patient is found to have significant anemia and is receiving blood transfusion at the time of evaluation. It is of note that at the time of evaluation patient does not have any reflexes. Intubated. Mucosa pale. Dilated and fixed pupils, Scattered rhonchi in the lungs. Cardiac: Tachycardic. No murmur. Abdomen is covered by dressing. Extremities do not reveal any edema. Dorsalis pedis is 1+ bilateral. Patient does not respond to any stimuli. Reported past medical history includes asthma and obesity. Reportedly, on January 23, 2025: Patient presented to [facility] for abdominal pain/nausea/vomiting. At that point the problems were ongoing for few weeks. In [facility], CT of the abdomen and MRCP were performed. Patient was seen by GI/surgery. Patient was found to have gallstones. Patient was discharged and later on January 28, 2025 presented back to [facility] for elective laparoscopy cholecystectomy. Patient was discharged home from [facility] after laparoscopic cholecystectomy. As per mother, patient does not have baseline history of any cardiac history. As per mother, patient was using marijuana. Mother denies any previous substance abuse besides marijuana. No specific family history is reported On January 23, 2025, labs in [facility] revealed creatinine of 0.84, hemoglobin of 15.2 and troponin (high sensitive) of <3. At that point EKG was normal WBC: 20.1 - 19.0 - 22.7 - 20.6 - 28.4 - 20.3 - 21.0 - 25.2 - 29.8 - 29.5 - 29.0 - 26.2 Hemoglobin: 8.3 - 6.5 - 12.1 - 11.1 - 12.1 - 9.3 - 9.2 - 9.1 - 8.4 - 9.0 - 9.5 - 8.8 Fibrinogen: 108 - 316 - 537 Creatinine: 4.02 - 3.78 - 3.90 - 3.95 - 4.34 - 5.44 - 6.05 - 6.73 - 7.31 - 7.77 - 6.64 - 7.30 Potassium: 5.6 - 4.6 - 4.8 - 3.9 - 2.9 - 2.9 - 3.6 - 3.8 - 4.9 - 5.4 - 6.0 - 5.1 - 5.3 - 6.1 AST/ALT: 676/700 - 2327/6 - 4636/2521 - -/1995 - 2500/1989 - 1780/1821 - 808/995 - 586/735 Lactic acid: 17.9 - 17.2 - 11.4 Troponin (high sensitive): 4450 - 6666 - 5104 - 3099 - 6115 TSH: 11.05 Urine Toxicology: positive for Fentanyl and Benzodiazepine Chest x-ray revealed: Lines and Tubes: Endotracheal tube projects 2.2 cm above the meghan. Right internal jugular central venous catheter tip projects over superior vena cava. Lungs: No focal consolidation. Low lung volumes. Pleura: No effusion. No pneumothorax. Cardiomediastinal contours: Unremarkable Bones: No acute osseous abnormality. IMPRESSION: Lines and tubes as above. Low lung volumes. Repeat chest x-ray revealed: IMPRESSION: Lines and tubes in satisfactory position. Mild increased pulmonary vascular congestion Repeat chest xry revealed: IMPRESSION: Lines and tubes in satisfactory position. Mild increased pulmonary vascular congestion Repeat chest xry revealed: IMPRESSION: 1. Low lung volumes with concomitant crowding of the pulmonary vasculature. 2. No evidence of focal consolidation. 3. Lines and tubes unchanged. Repeat chest xry revealed: IMPRESSION: 1. Slight interval retraction of the endotracheal tube such that the tip now projects approximately 4.7 cm above the level of the meghan. Remaining lines and tubes unchanged. 2. Otherwise no significant change compared to prior exam. Repeat chest xry revealed: IMPRESSION: 1. Slight interval advancement of endotracheal tube such that the tip now projects approximately 1.7 cm above the level of the meghan. Remaining lines and tubes unchanged. 2. Otherwise no significant change compared to prior exam. Repeat chest xry revealed: IMPRESSION: 1. Slight interval retraction of the endotracheal tube such that the tip now projects approximately 3.3 cm above the level of the meghan. Remaining lines and tubes unchanged. 2. No evidence of acute cardiopulmonary process. CT of the chest/abdomen/pelvis revealed: IMPRESSION: 1. Hepatic hematoma measuring up to approximately 8.6 cm in greatest dimension, as described above, with hemorrhage extending beyond the liver capsule and into the right pericolic gutter as well as into the pelvis. No definite active arterial bleeding is seen on this exam, although limited evaluation due to the timing of contrast, as this was not a CTA exam. 2. Postsurgical changes of cholecystectomy. 3. Dilated fluid-filled small bowel loops, may be due to postoperative ileus. No small bowel obstruction. 4. Small volume pneumoperitoneum, likely due to recent surgery. Small volume of gas are seen in the upper ventral abdomen from the recent surgery. 5. Dependent atelectasis in the lower lobes. Otherwise, no acute disease in the chest. 6. Endotracheal tube and enteric tube in place. 7. Atrophic right kidney incidentally noted. 8. Additional findings as described above. Critical findings Critical Result: Acute hepatic hematoma with hemorrhage extending beyond the liver capsule into the adjacent portions of the abdomen and into the pelvis as detailed above. Repeat CT of chest/abdomen/pelvis revealed: There is limited interpretation of the chest, abdomen and pelvis without administration of intravenous contrast. Endotracheal tube tip terminates just at the meghan / left main bronchus. Diffuse bilateral pulmonary airspace consolidation bilaterally significantly increased. Bilateral lower lobe lobar consolidation/ atelectasis, increased from prior. Small bilateral pleural effusions. There is extensive edema/ stranding within the upper anterior chest, neck region/supraclavicular region. There is some hyperdensity within this region which could represent components of hematoma / blood products. Heterogeneous appearance of the thyroid gland. Right IJ catheter terminating at the cavoatrial junction. Adrenal glands unremarkable in shape. Perisplenic hematoma. Interval postsurgical changes in the right upper quadrant of the abdomen. There appears to be surgicel/gaseous collection within the previous hematoma cavity, likely representing surgicel. There is a radiopaque density within the resection cavity as well which measures 6.2 x 4.6 cm.. Postoperative changes of the right anterior abdomen with soft tissue emphysema. Small amount of pneumoperitoneum Surgical drainage catheter terminating in the right upper quadrant of the abdomen Right renal parenchymal atrophy. Left kidney demonstrates perinephric edema / stranding. No left hydronephrosis. Nasogastric tube projects towards the distal stomach. Moderate distention small bowel loops. Rectal catheter. Moderate distention of the large bowel loops. Normal appendix. Abdominal aorta normal in caliber. Small amount of ascites fluid/ mesenteric edema. Bladder decompressed by Mora catheter. Soft tissue edema /anasarca. Mesenteric edema. Small amount of ascites fluid. The osseous structures are stable. IMPRESSION: Limited evaluation without contrast. Interval evacuation of the right upper quadrant hematoma. Surgicel within the resection cavity. No significant interval development of new hematoma. There are 2 radiopaque lap pads within the resection cavity . Findings reviewed with Dr. Ledesma at 11:51 a.m. on 01/30/2025 Perisplenic hematoma, similar to previous examination. Extensive bilateral pulmonary airspace consolidation, significantly increased from previous examination. Small bilateral pleural effusions. Right upper quadrant drainage catheter. Pneumoperitoneum. Soft tissue edema / anasarca. Small amount of ascites fluid/ mesenteric edema. Extensive edema within the anterior chest, neck region. Heterogeneous appearance thyroid gland. Other findings as described. CT of the head revealed: IMPRESSION: 1. No evidence of acute intracranial abnormality. Repeat CT of head revealed: FINDINGS: Cerebellar tonsilar herniation. There is sulcal and ventricular effacement. The basal cisterns are effaced. Loss of mario-white matter differentiation is noted. The skull and visible facial bones are intact. The paranasal sinuses, mastoid air cells and middle ear cavities are well-aerated. The soft tissues of the scalp are unremarkable. IMPRESSION: Diffuse cerebral edema with cerebellar tonsillar herniation. Recommend MRI brain for further evaluation. CT of Neck revealed: IMPRESSION: Limited evaluation without contrast. Extensive soft tissue edema within the neck extending into the anterior / upper chest and anterior mediastinum . Retropharyngeal edema. Heterogeneous appearance of the thyroid gland. Inferior cerebellar tonsillar herniation better seen on the prior CT Renal Ultrasound revealed: IMPRESSION: 1. Right kidney not visible. 2. Left kidney is enlarged. 3. No hydronephrosis. Venous duplex of lower ext revealed: IMPRESSION: NO SONOGRAPHIC EVIDENCE FOR DEEP VENOUS THROMBOSIS IN THE RIGHT LOWER EXTREMITY VEINS. EEG reported: This is a remarkably abnormal EEG, this EEG seen in severe cerebral dysfunction due to metabolic/hypoxic encephalopathy or medication effects, unless this is caused by reversible etiology, this EEG is suggestive of a poor prognosis for meaningful recovery, please correlate clinically. Arrival EKG revealed sinus tachycardia with nonspecific ST-T changes Tele reveals sinus tachycardia Echocardiogram revealed: Technically limited study secondary to poor acoustic windows. Left ventricle: Left ventricle was normal-sized with normal systolic function. LVEF was 55-60%. No gross wall motion abnormality was seen. Right ventricle was mildly dilated with normal systolic function. Left atrium was normal-sized. Right atrium was mildly dilated. Aortic valve: Aortic valve was not well visualized. There was no aortic insufficiency/stenosis. There was no mitral regurgitation. There was trace tricuspid regurgitation. Pulmonary valve was not well visualized. IVC was not visualized. Right ventricular systolic pressure was assessed around 48 mm Hg. There was no pericardial effusion. Patient is a 24-year-old gentleman who presented with post arrest. It seems that the patient had hemorrhagic (intra-abdominal) presentation. Patient did have elective laparoscopic cholecystectomy the day before presentation. On the day of presentation, the patient was taken back to operating room and this time Laparotomy was done for hepatic hematoma. Patient does have multiorgan involvement. Clinically there is no brainstem reflexes. Shock liver/acute renal failure is considered. Troponin has been high. EKG did not reveal any STEMI. Presentation could be high troponin secondary to demand physiology. Patient does not have any risk factors for baseline coronary artery disease. In ideal scenario, ischemic workup/cardiac catheterization could be more revealing. Unfortunately, the patient does have acute renal failure which could be worsened by cardiac catheterization at this point. As there was no higher brain functions the suggestion is to wait and see if patient regains any higher brain function. It is of note that during cardiac catheterization, the patient may need some anticoagulation/antiplatelets. At this point patient is having significant anemia/bleeding and receiving blood transfusion and holding off of scenario forcing Anticoagulation/antiplatelets is advised. I had a long discussion with family members and Mother (repeatedly). Clinically patient has multiorgan failure. Secondary to active bleeding, we will avoid anticoagulation/antiplatelets for now. Being managed in ICU. Was taken to OR repeatedly. Still no reflexes. Echocardiogram revealed no WMA and also revealed good EF. It also revealed increased Pulmonary Artery Pressure in favor of component of Pulmonary Hypertension. Review of Echo images revealed good right ventricular systolic function. Not typical for Pulmonary Emboli. Still, PE cannot be ruled out. If PE is ruled out, then it is possible that patient had Pulmonary Hypertension from before (Baseline history of Asthma may actually reflect it). s/p PRBC transfusion (multiple). Being followed by Surgery, Nephrology, Hematology, Pulmonary, Neurology and GI. . Repeat imaging revealed cerebellar tonsillar herniation. Neurology diagnosed Hypoxic/Metabolic Encephalopathy also. EEG findings question meaningful recovery. s/ p Arrest Intra-abdominal bleeding Hepatic hematoma Multiorgan failure, due to shock Shock liver Lactic Acidosis Acute renal failure Acute respiratory failure, on vent support Status post laparotomy Status post laparoscopic cholecystectomy Abnormal troponin, evaluated to reflect possible demand physiology History of gallstones History of asthma Obesity History of marijuana abuse Consumptive Coagulopathy / DIC Pulmonary Hypertension Cerebellar tonsillar Herniation. Encephalopathy, hypoxic/metabolic Renal failure, started on hemodialysis Cardiac suggestion for management: Manage in ICU Pressure support (patient on Levophed/vasopressor at the time) Follow-up electrolytes and kidney function tests and correct abnormalities Evaluation and management of respiratory failure as per Pulmonary Evaluation and management of Cerebellar tonsillar herniation as per Neurology/surgery V/Q scan could not be completed Neurology follow up, to comment on possibility of brain ? Echocardiogram revealed no WMA and also revealed good EF. It also revealed increased Pulmonary Artery Pressure in favor of component of Pulmonary Hypertension. Hematology follow up (to comment on prophylaxis / treatment of Pulmonary Emboli) Surgical follow up Nephrology follow up (started on hemodialysis) and Hematology follow up Secondary to active bleeding, we will avoid anticoagulation/antiplatelets for now Long-term prognosis depends on the above and most importantly regaining of the higher brain function: looks very grim Ischemic workup may be considered only after regaining higher brain function or any special change in clinical presentation Further evaluation and management depends on the above and clinical course A total of 75 minutes was spent reviewing the patient record, examining the patient, making a diagnostic and therapeutic plan, discussing this plan with medical personnel, following up on diagnostic studies and following the patient for clinical stability excluding any and all procedures. At least 50% of this time was spent in direct, [id number] contact. Thank you for allowing me to participate in this patient's care. Further recommendations will depend on patient's clinical course. Please do not hesitate to contact me if you have any questions or concerns. This medical document was created using electronic medical record system with [employer] computerized dictation system. Although this document has been carefully reviewed, there may still be some phonetic and typographical errors. These areas are purely typographical due to the imperfection of the software programs, and do not reflect any compromise in the patient's medical care. Dietary Evaluation Review Recommendations by RD: PPN/TPN Comments: 1) Increase TPN rate to meet at least 75% of estimated daily needs 2) Advance to renal cardiac diet when medically feasible, pending ST approval 3) Follow-up with cardiology, pulmonology, nephrology, neurology, and gastroenterology 4) Continue to monitor I&O, labs, and skin integrity Expected Outcomes/Goals: 1) nutritional support to meet at least 75% of estimated daily needs 2) labs and wound to improve 3) diet to advance 4) gradual wt loss 5) f/u in 2-3 days Plan discussed with: Other (nurse) KTAHLEEN COHEN MD Feb 03, 2025 08:27
--- NOTE | 2025-02-03 08:40 | DVHPN2 ---
Subjective DOS: 02/02/2025 [facility] Patient seen and examined at bedside. Sedated, intubated on mechanical ventilator. Overnight events reviewed. HPI: A 24-year-old man with past medical history of asthma and gallstone pancreatitis who underwent laparoscopic cholecystectomy on 01/28/2025 in [facility]. Patient was discharged on same day; and as per medical records he developed nausea, vomiting and shortness of breath the night prior to presentation and woke up very weak; noted on AM of presentation with altered level of consciousness. Paramedics were called and patient was found to be in cardiac arrest. CPR was done, ROSC obtained; however patient had fixed and dilated pupils per ER documentation on arrival. CT abdomen/pelvis without contrast in ED revealed a hepatic hematoma measuring 8.6 cm with hemorrhage extending beyond the liver capsule into the right paracolic gutter as well as the pelvis. The patient was emergently taken back to surgery and underwent evacuation of a large hemoperitoneum,. was subsequently admitted to ICU. Pulmonary consultation is requested for evaluation and management of acute hypoxic respiratory failure requiring mechanical ventilator. Past Medical History: Asthma and gallstone pancreatitis Past Surgical History: Laparoscopic cholecystectomy on 01/28/2025 at [facility] Medications: Reviewed. Allergies: No known drug allergies. Family History: No family history of premature CAD. No family history of lung disorders. Social History: Nonsmoker. No alcohol or illicit drug use. Changes from previous H/P or p: No Changes Objective Vitals Vital Signs Date Time Temp Pulse Resp B/P (MAP) Pulse Ox O2 Delivery O2 Flow Rate FiO2 02/03/25 08:00 92 14 120/75 (90) 98 30 02/03/25 05:47 Mechanical Ventilator+ 02/03/25 04:00 97.3 97.3 Intake/Output Intake and Output 02/03/25 07:00 Intake Total 1079.25 ml Output Total 3920 ml Balance -2840.75 ml IV Total 1079.25 ml Output Urine Total 725 ml Gastric Drainage Total 75 ml Drainage Total 120 ml Other 3000 ml Exam Gen.: Patient lying in bed in medical ICU. Sedated, intubated on mechanical ventilator. Head: Normocephalic, atraumatic. Eyes: PERRLA. Ears: Normal external anatomy. Throat: Endotracheal tube and orogastric tube in place. Neck: Supple, trachea midline. Chest: Transmitted breath sounds bilaterally. Decreased air entry bilaterally. No wheezing. Bibasilar crackles. Cardiovascular: Positive S1, positive S2. Regular rate and rhythm. Abdomen: Positive bowel sounds in all 4 quadrants. Soft, nontender, nondistended. : Green in place. Normal external genitalia. Rectal: Deferred. Skin: Warm, dry. Intact. Extremities: 2+ radial pulses bilaterally. No lower extremity edema. Neuro: Sedated. Medications Current Medications Medications Dose Ordered Sig/Serenity Route Start Time Stop Time Status Last Admin Dose Admin Norepinephrine Bitartrate 250 ml @ 3.75 mls/hr Q24H IV 01/29/25 10:00 02/01/25 17:06 15 MLS/HR Midazolam HCl 50 ml @ 1 mls/hr Q24H IV 01/29/25 14:15 01/29/25 15:56 5 MLS/HR Fentanyl Citrate 250 ml @ 2.5 mls/hr Q24H IV 01/29/25 14:15 Piperacillin Sod/ Tazobactam Sod 100 ml @ 25 mls/hr Q12HR IV 01/29/25 22:00 02/02/25 21:31 25 MLS/HR Pantoprazole Sodium 40 mg DAILY IV 01/30/25 10:00 02/02/25 09:57 40 MG Phenylephrine HCl 250 ml @ 30 mls/hr Q8H20M IV 01/29/25 19:30 01/30/25 01:39 116.25 MLS/HR Levalbuterol HCl 0.625 mg Q4HR PRN NEB 01/29/25 20:00 02/02/25 06:23 0.625 MG Ipratropium [place] 0.5 mg Q4HPRN PRN NEB 01/29/25 20:00 02/02/25 06:23 0.5 MG Epinephrine HCl 250 ml @ 7.5 mls/hr Q24H IV 01/30/25 00:15 Vasopressin 20 units/Sodium Chloride 100 ml @ 9 mls/hr Q11H7M IV 01/30/25 07:30 02/02/25 21:30 9 MLS/HR Amino Acids 0 ml @ 0 mls/hr PER PHARMACY IV 02/01/25 11:15 Diagnostic Test (Pha) 1 strip Q6HR 02/01/25 18:00 02/03/25 05:07 1 STRIP Insulin Human Regular FOLLOW SLIDING SCALE Q6HR SC 02/01/25 18:00 02/02/25 11:36 2 UNITS Dextrose 50 ml UD IV 02/01/25 12:30 Bumetanide 25 mg/ Miscellaneous 100 ml @ 4 mls/hr Q24H IV 02/01/25 14:00 02/02/25 14:25 4 MLS/HR Albumin Human 100 ml @ 100 mls/hr PRN PRN IV 02/02/25 09:45 02/02/25 13:52 100 MLS/HR Sodium Chloride 10 meq/Calcium Gluconate 4.65 meq/Magnesium Sulfate 8 meq/ Multivitamins 10 ml/Amino Acids/ Dextrose 924.5 ml @ 39 mls/hr [id number] IV 02/02/25 22:00 02/03/25 21:59 02/02/25 21:52 39 MLS/HR Laboratory Results Laboratory Tests 02/03/25 03:15 Chemistry Test 02/02/25 17:47 02/03/25 03:15 Calcium Level 7.6 mg/dL (8.7-10.4) L 7.7 mg/dL (8.7-10.4) L Albumin 3.2 g/dL (3.2-4.8) Magnesium Level 2.2 mg/dL (1.6-2.6) Phosphorus Level 5.6 mg/dL (2.4-5.1) H Total Protein 5.4 g/dL (5.7-8.2) L Coagulation Test 02/03/25 03:15 Prothrombin Time 11.0 sec (9.3-11.8) Prothrombin Time INR 1.04 (0.9-1.15) Activated Partial Thromboplast Time 31.4 SEC (24.5-34.5) Lipid panel Test 02/03/25 03:15 Triglycerides Level 93 mg/dL (< 150) LFT Test 02/03/25 03:15 Alanine Aminotransferase (ALT) 735 U/L (7-40) H Alkaline Phosphatase 172 U/L (46-116) H Aspartate Amino Transferase (AST) 586 U/L (13-40) H Total Bilirubin 1.0 mg/dL (0.2-1.0) Urinalysis Test 01/29/25 09:54 01/29/25 14:15 Urine Color Light-orange (Yellow) Urine Clarity Turbid (Clear) H Urine pH 5.5 (5.0-9.0) Urine Specific [place] 1.017 (1.001-1.035) Urine Protein 2+ (Negative) H Urine Ketones Trace (Negative) Urine Blood 3+ /uL (Negative) H Urine Nitrite Negative (Negative) Urine Bilirubin Negative (Negative) Urine Urobilinogen Normal mg/dL (Negative) Urine Leukocyte Esterase Negative /uL (Negative) Urine RBC 130 /hpf (0 - 3) Urine Microscopic WBC < 1 /HPF (0-3) Urine Squamous Epithelial Cells Mod /hpf (<5) Urine Amorphous Crystals Few /hpf (None Seen) Urine Bacteria Few /hpf (None Seen) H Urine Glucose Trace mg/dL (Normal) Urine Creatinine 19.64 mg/dL (30.0-125.0) L Urine Sodium 98 mmol/L (40-220) Urine Total Protein 245.5 mg/dL (1-14) H Blood Gas Results Test 02/03/25 07:08 Arterial Blood pH 7.344 (7.350-7.450) FiO2 % 30.0 Microbiology Microbiology Date/Time Source Procedure Growth Status 01/30/25 00:00 Nose MRSA Screen - Final Complete 01/29/25 10:49 Blood Blood Culture - Preliminary NO GROWTH AFTER 72 HOURS OF INCUBATION. Resulted 01/29/25 10:43 Sputum Gram Stain - Final Complete 01/29/25 10:43 Sputum Respiratory Culture - Final Complete Assessment/Plan Assessment/Plan Impression: Acute hypoxic respiratory failure On mechanical ventilator Status post cardiac arrest Possible anoxic brain injury NSTEMI, possible type 2 Hypovolemic shock Acute kidney injury secondary to hypovolemic shock Obesity, BMI 30.4 Multiorgan failure Events: Remains on vent support AC mode with RR 14, VT 500, PEEP 7, FiO2 30% Improved FIO2 requirements ABG notable for acidemia CXR reviewed; Slight interval retraction of the endotracheal tube such that the tip now projects approximately 3.3 cm above the level of the meghan. No evidence of acute cardiopulmonary process. Continue antibiotics. Continue Protonix for GI ppx HD per Nephrology Monitor renal function Monitor electrolytes. Supplement as necessary. Monitor ins and outs. Monitor hemoglobin - currently 8.8 g/dL Transfuse if less than 7.0 g/dL Labs and imaging reviewed. Rest of plan as noted below. Plan: s/p intubation on mechanical ventilator On assist control with respiratory rate of 14, tidal volume 500, PEEP of 7, FiO2 of 30% Titrate FIO2 to keep O2 saturation above 92%. VAP bundle Daily ABG and CXR while intubated. Sedate for ventilatory synchrony Start pressors if necessary for hemodynamic support. On pressors for hemodynamic support. Titrate to keep MAP above 65 mmHg/SBP above 90 mmHg. Continue antibiotics. F/u cultures. Blood cultures no growth thus far Sputum culture grew normal oropharyngeal slava. Monitor hemoglobin Monitor renal function due to acute kidney injury. Monitor electrolytes. Supplement as necessary. Continue diuresis per Nephrology Monitor ins and outs HD per nephrology Plan for large-bore central line placement of hemodialysis access Nutritional support. Accu-Cheks, ISS. GI/DVT prophylaxis. Condition: Critical Prognosis: Poor given multiple comorbidities. Rest of plan per hospitalist and other consultants. A total of 35 minutes of critical care time was spent reviewing the patient record, examining the patient, making a diagnostic and therapeutic plan, discussing this plan with the medical personnel, following up on diagnostic studies and following the patient for clinical stability excluding any and all procedures. At least 50% of this time was spent in direct, [id number] contact. Thank you for allowing me to participate in this patient's care. Further recommendations will depend on patient's clinical course. Please do not hesitate to contact me if you have any questions or concerns. This medical document was created using an electronic medical record system with [employer] dictation system. Although this document has been carefully reviewed, there may still be some phonetic and typographical errors. These areas are purely typographical due to imperfections of the software programs, and do not reflect any compromise in the patient's medical care. Plan discussed with: Other (RN) My Orders Orders - NEHEMIAS BEASLEY MD Procedure Category Date Status Time Abg W/ Co-Ox RT 02/03/25 Logged 05:39 Ventilator Orders RT 02/03/25 Transmitted 05:39 Date of Service: Feb 02, 2025 Billing Provider: NEHEMIAS BEASLEY MD Common Visit Codes: [id number] INP/OBS CARE(HIGH) NEHEMIAS BEASLEY MD Feb 03, 2025 08:40
[2025-02-03] MEDS: ALBUTEROL SULF 2.5 MG/0.5ML(0.5%) NEB SOLN NEB ONE (09:17)
[2025-02-03] MEDS ORDERED: SODIUM BICARB 8.4% 50Meq/50ml SYR Vial IV ONE (09:45)
[2025-02-03] MEDS ORDERED: DEXTROSE (50%) 50ML SYRG IV ONE (09:45)
[2025-02-03] MEDS ORDERED: InsuLIN REG 1unit/0.01ml Soln (100units/ml) IV ONE (09:45)
--- NOTE | 2025-02-03 09:53 | DVHPN2 ---
Progress Note Date Seen: Feb 03, 2025 Has the PT tested + for MRSA If YES, has PT been informed?: No Medical Necessity Reason Pt with a Central, PICC or Fol: Yes The following are medically ne: Central Line, Mora Catheter Reason for mora catheter: Nakul. Abd Surgery Subjective Changes from previous H/P or p: Changes (K still elevated) Review of Systems: Deferred Objective vital signs Vital Sign Date Time Temp Pulse Resp B/P (MAP) Pulse Ox O2 Delivery O2 Flow Rate FiO2 02/03/25 09:25 96 14 126/66 (86) 99 30 02/03/25 05:47 Mechanical Ventilator+ 02/03/25 04:00 97.3 97.3 Total Intake and Output 02/02/25 02/02/25 02/03/25 15:00 23:00 07:00 Intake Total 636.00 ml 366.25 ml 77 ml Output Total 3000 ml 540 ml 380 ml Balance -2364.00 ml -173.75 ml -303 ml medications Current Medications Medications Dose Ordered Sig/Serenity Route Start Time Stop Time Status Last Admin Dose Admin Norepinephrine Bitartrate 250 ml @ 3.75 mls/hr Q24H IV 01/29/25 10:00 02/01/25 17:06 15 MLS/HR Midazolam HCl 50 ml @ 1 mls/hr Q24H IV 01/29/25 14:15 01/29/25 15:56 5 MLS/HR Fentanyl Citrate 250 ml @ 2.5 mls/hr Q24H IV 01/29/25 14:15 Piperacillin Sod/ Tazobactam Sod 100 ml @ 25 mls/hr Q12HR IV 01/29/25 22:00 02/03/25 09:29 25 MLS/HR Pantoprazole Sodium 40 mg DAILY IV 01/30/25 10:00 02/03/25 09:28 40 MG Phenylephrine HCl 250 ml @ 30 mls/hr Q8H20M IV 01/29/25 19:30 01/30/25 01:39 116.25 MLS/HR Levalbuterol HCl 0.625 mg Q4HR PRN NEB 01/29/25 20:00 02/02/25 06:23 0.625 MG Ipratropium [place] 0.5 mg Q4HPRN PRN NEB 01/29/25 20:00 02/02/25 06:23 0.5 MG Epinephrine HCl 250 ml @ 7.5 mls/hr Q24H IV 01/30/25 00:15 Vasopressin 20 units/Sodium Chloride 100 ml @ 9 mls/hr Q11H7M IV 01/30/25 07:30 02/02/25 21:30 9 MLS/HR Amino Acids 0 ml @ 0 mls/hr PER PHARMACY IV 02/01/25 11:15 Diagnostic Test (Pha) 1 strip Q6HR 02/01/25 18:00 02/03/25 05:07 1 STRIP Insulin Human Regular FOLLOW SLIDING SCALE Q6HR SC 02/01/25 18:00 02/02/25 11:36 2 UNITS Dextrose 50 ml UD IV 02/01/25 12:30 Bumetanide 25 mg/ Miscellaneous 100 ml @ 4 mls/hr Q24H IV 02/01/25 14:00 02/02/25 14:25 4 MLS/HR Albumin Human 100 ml @ 100 mls/hr PRN PRN IV 02/02/25 09:45 02/02/25 13:52 100 MLS/HR Sodium Chloride 10 meq/Calcium Gluconate 4.65 meq/Magnesium Sulfate 8 meq/ Multivitamins 10 ml/Amino Acids/ Dextrose 924.5 ml @ 39 mls/hr [id number] IV 02/02/25 22:00 02/03/25 21:59 02/02/25 21:52 39 MLS/HR Fat Emulsion Intravenous 50 ml/ Calcium Gluconate 7 meq/Magnesium Sulfate 8 meq/ Multivitamins 10 ml/Amino Acids/ Dextrose 1,177.0537 ml @ 49 mls/hr Q24H2M IV 02/03/25 22:00 02/04/25 21:59 Examination: LUNGS:Abnormal, NEURO:Abnormal laboratory and microbiology Laboratory Tests 02/03/25 08:10 02/03/25 03:15 Test 02/03/25 03:15 Range/Units Serum Glucose 115 H 74-106 mg/dL Microbiology Date/Time Source Procedure Growth Status 01/30/25 00:00 Nose MRSA Screen - Final Complete 01/29/25 10:49 Blood Blood Culture - Preliminary NO GROWTH AFTER 72 HOURS OF INCUBATION. Resulted 01/29/25 10:43 Sputum Gram Stain - Final Complete 01/29/25 10:43 Sputum Respiratory Culture - Final Complete Problem List/Assessment/Plan Problem List/Assessment/Plan Acute kidney injury likely ischemic ATN in the setting of shock, FeNa > 2%, nonoliguric Acute respiratory failure, intubated on ventilator Status post cardiac arrest Anoxic encephalopathy//brain herniation Hyperkalemia secondary to above Metabolic acidosis anion gap secondary to lactic acidosis secondary to reduced perfusion from hemorrhage Hemodynamic shock from bleeding Acute blood loss anemia/post op Status post laparoscopic cholecystectomy on 01/28/25 [facility] Status post ex lap, 01/29 Positive troponins NSTEMI--likely demand ischemia Shock liver Hemodialysis today for solute clearance, no fluid removal today. treatment of elevated potassium Pending brain perfusion study Anoxic encephalopathy/pupils fixed and dilated uop slight response to bumex drip surgery recs noted will monitor fluid balance YARY for anemia poor overall prognosis, medical decisions based on new information as it presents Plan discussed with: Other (mother) My Orders My Orders Orders - SABINE ALLEN MD Procedure Category Date Status Time Insulin R (Human) PHA 02/03/25 Logged (Insulin R) 09:45 Dextrose 50% Syringe PHA 02/03/25 Logged 09:45 Sodium Bicarb PHA 02/03/25 Logged 50meq/50ml Vial 09:45 Complete Blood Count LAB 02/03/25 Logged 09:44 Dietary Evaluation Review Recommendations by RD: PPN/TPN Comments: 1) Increase TPN rate to meet at least 75% of estimated daily needs 2) Advance to renal cardiac diet when medically feasible, pending ST approval 3) Follow-up with cardiology, pulmonology, nephrology, neurology, and gastroenterology 4) Continue to monitor I&O, labs, and skin integrity Expected Outcomes/Goals: 1) nutritional support to meet at least 75% of estimated daily needs 2) labs and wound to improve 3) diet to advance 4) gradual wt loss 5) f/u in 2-3 days Critical Care Time (mins): 33 SABINE ALLEN MD Feb 03, 2025 09:53
[2025-02-03] MEDS: SODIUM CHL 0.9% 1000 ML BAG XX ONE (10:00)
--- NOTE | 2025-02-03 12:20 | DVHPNRES ---
Progress Note Date Seen: Feb 04, 2025 Resident Creating Document: ARNOLD MUHAMMAD DALE Has the PT tested + for MRSA If YES, has PT been informed?: No Medical Necessity Reason Pt with a Central, PICC or Fol: Yes The following are medically ne: Central Line, Mora Catheter Reason for mora catheter: Nakul. Abd Surgery Subjective Review of Systems Patient seen and examined at the bedside. Patient is sedated and on mechanical ventilation Objective vital signs Vital Sign Date Time Temp Pulse Resp B/P (MAP) Pulse Ox O2 Delivery O2 Flow Rate FiO2 02/03/25 11:10 113 14 109/58 (75) 94 30 02/03/25 10:00 Mechanical Ventilator+ 02/03/25 08:00 97.2 97.2 Total Intake and Output 02/02/25 02/02/25 02/03/25 14:59 22:59 06:59 Intake Total 624.75 ml 347.50 ml 154 ml Output Total 3000 ml 540 ml 380 ml Balance -2375.25 ml -192.50 ml -226 ml medications Current Medications Medications Dose Ordered Sig/Serenity Route Start Time Stop Time Status Last Admin Dose Admin Norepinephrine Bitartrate 250 ml @ 3.75 mls/hr Q24H IV 01/29/25 10:00 02/01/25 17:06 15 MLS/HR Midazolam HCl 50 ml @ 1 mls/hr Q24H IV 01/29/25 14:15 01/29/25 15:56 5 MLS/HR Fentanyl Citrate 250 ml @ 2.5 mls/hr Q24H IV 01/29/25 14:15 Pantoprazole Sodium 40 mg DAILY IV 01/30/25 10:00 02/03/25 09:28 40 MG Phenylephrine HCl 250 ml @ 30 mls/hr Q8H20M IV 01/29/25 19:30 01/30/25 01:39 116.25 MLS/HR Levalbuterol HCl 0.625 mg Q4HR PRN NEB 01/29/25 20:00 02/02/25 06:23 0.625 MG Ipratropium [place] 0.5 mg Q4HPRN PRN NEB 01/29/25 20:00 02/02/25 06:23 0.5 MG Epinephrine HCl 250 ml @ 7.5 mls/hr Q24H IV 01/30/25 00:15 Vasopressin 20 units/Sodium Chloride 100 ml @ 9 mls/hr Q11H7M IV 01/30/25 07:30 02/02/25 21:30 9 MLS/HR Amino Acids 0 ml @ 0 mls/hr PER PHARMACY IV 02/01/25 11:15 Diagnostic Test (Pha) 1 strip Q6HR 02/01/25 18:00 02/03/25 11:27 1 STRIP Insulin Human Regular FOLLOW SLIDING SCALE Q6HR [place] 02/01/25 18:00 02/02/25 11:36 2 UNITS Dextrose 50 ml UD IV 02/01/25 12:30 Bumetanide 25 mg/ Miscellaneous 100 ml @ 4 mls/hr Q24H IV 02/01/25 14:00 02/02/25 14:25 4 MLS/HR Albumin Human 100 ml @ 100 mls/hr PRN PRN IV 02/02/25 09:45 02/02/25 13:52 100 MLS/HR Sodium Chloride 10 meq/Calcium Gluconate 4.65 meq/Magnesium Sulfate 8 meq/ Multivitamins 10 ml/Amino Acids/ Dextrose 924.5 ml @ 39 mls/hr [id number] IV 02/02/25 22:00 02/03/25 21:59 02/02/25 21:52 39 MLS/HR Fat Emulsion Intravenous 50 ml/ Calcium Gluconate 7 meq/Magnesium Sulfate 8 meq/ Multivitamins 10 ml/Amino Acids/ Dextrose 1,177.0537 ml @ 49 mls/hr Q24H2M IV 02/03/25 22:00 02/04/25 21:59 Epoetin Gunnar-epbx 4,000 unit MWF@2100 MN 02/03/25 21:00 Piperacillin Sod/ Tazobactam Sod 100 ml @ 25 mls/hr Q8HR IV 02/03/25 14:00 Examination General: RASS -5, afebrile, mucosae are moist Cardiovascular: Normal S1 and S2. No murmurs, gallops or rubs Respiratory: Mechanically assisted ventilation, equal bilateral airway entree. Clear lung sounds on auscultation Abdomen: Soft, nontender, no organomegaly, with surgical wound on abdomin MSK/skin: Mobilization of limbs cannot be evaluated. Skin is dry and warm. Neurological: Orientation cannot be assessed. Pupils are dilated and nonreactive to light, absent brainstem reflexes laboratory and microbiology Laboratory Tests 02/03/25 08:10 02/03/25 03:15 Test 02/03/25 03:15 Range/Units Serum Glucose 115 H 74-106 mg/dL Microbiology Date/Time Source Procedure Growth Status 02/02/25 22:00 Urine - [place] Urine Culture - Preliminary Resulted 01/30/25 00:00 Nose MRSA Screen - Final Complete 01/29/25 10:49 Blood Blood Culture - Final NO GROWTH AFTER 5 DAYS OF INCUBATION. Complete 01/29/25 10:43 Sputum Gram Stain - Final Complete 01/29/25 10:43 Sputum Respiratory Culture - Final Complete Problem List/Assessment/Plan Problem List/Assessment/Plan This is a 24-year-old male with no significant past medical history underwent elective laparoscopic cholecystectomy on 01/28 at [facility] (due to cholelithiasis), on 2nd day postop at home became lethargic and subsequently coded. ROSC was achieved with CPR, abdominal CT scan showed intra-abdominal hematoma, underwent emergent laparotomy and drained about 500-750 thrombosed and dark blood. NEURO: Hypoxic encephalopathy, due to cardiac arrest Possible anoxic brain injury * RASS Score -5 * Head CT from 01/30 shows, Cerebellar tonsilar herniation. There is sulcal and ventricular effacement. The basal cisterns are effaced. Loss of mario-white matter differentiation is noted. * BRNNM-brain imaging flu, shows absence of serum blood flow- findings suggest brain in the appropriate clinical setting CARDIOVASCULAR: NSTEMI possible type 2 Status post cardiac arrest Distributive shock (vasoplegia)/neurogenic shock/septic shock vasopressin * Cardiology on the board, recommended medical management * Echo from 01/30 shows,Technically limited study secondary to poor acoustic windows, normal LV size and function, 55-60% PULMONARY: Acute hypoxic respiratory failure, likely due to anoxic brain injury Cxr showed bilateral mild pulmonary vascular congestion GASTROINTESTINAL: Acute transaminitis secondary to hypovolemic shock Coagulopathy Hypoalbuminemia Status post laparoscopic cholecystectomy Status post exploratory laparotomy for hemoperitoneum GENITOURINARY: HARLEEN secondary to hypovolemic shock * Nephrology on the board, performed dialysis on 02/03 * IV Bumex drip METABOLIC: Severe anion gap metabolic acidosis due to lactic acidosis Hypernatremia Grade 2 obesity, BMI 35.7 kg per m2 Hypoglycemia HEME: Severe anemia, due to bleeding * Received 3 units of PRBC, 2 units of FFP and 1 unit of cryoprecipitate * Monitor H&H INFECTIOUS DISEASE: Leucocytosis Lactic acidosis * Urine culture, blood culture and respiratory culture shows no growth * On Zosyn DIET: TPN DVT prophylax: Hold GI prophylaxis: Protonix Code status: Full code LINES/DRAINS/ACCESS: ETT: Intubated on 01/29 IV access: Lt IJ placed on 01/29/25 left subclavian Drips: On vasopressin Mora catheter: Placed on 01/29 DISPOSITION: ICU status Patient's status discussed with the patient's mother at the bedside. Critical care time spent more than 54 minutes, including patient care, chart review, and updating the family. Excluding any procedures. Case discussed with Dr. Troy Plan discussed with: Patient, Other (On) Dietary Evaluation Review Recommendations by RD: PPN/TPN Comments: 1) Increase TPN rate to meet at least 75% of estimated daily needs 2) Advance to renal cardiac diet when medically feasible, pending ST approval 3) Follow-up with cardiology, pulmonology, nephrology, neurology, and gastroenterology 4) Continue to monitor I&O, labs, and skin integrity Expected Outcomes/Goals: 1) nutritional support to meet at least 75% of estimated daily needs 2) labs and wound to improve 3) diet to advance 4) gradual wt loss 5) f/u in 2-3 days Date of Service: Feb 03, 2025 Billing Provider: JEFFREY TROY MD Common Visit Codes: [id number] CARE 30-74 MIN ARNOLD MUHAMMAD RESDIENT Feb 03, 2025 12:20 JEFFREY TROY MD Feb 04, 2025 15:10
--- NOTE | 2025-02-03 15:50 | DVH ---
CLINICAL INFORMATION: Brain diagnosis. TECHNIQUE: 30.4 mCi of technetium DTPA was injected. Frontal view images of the head and neck were o btained at 4 second intervals for a total of 1 minute. Anterior, posterior, left lateral, and bilateral delayed images of the head and neck were also obtain ed. COMPARISON: CT HEAD WITHOUT CONTRAST on DOS: 01/30/25, CT HEAD WITHOUT CONTRAST on DOS: 01/29/25 FINDINGS: Absence of cerebral blood flow is noted along with no brain parenchymal radiotracer uptake . Increased activity is seen in the central face likely representing vascular shunting consistent wit h the so-called "hot nose" sign. Findings suggest brain however clinical correlation is necessa ry. IMPRESSION: Findings described above, which would be consistent with brain in the appropriate clinical sett ing, however clinical correlation is needed.
[2025-02-03] MEDS: PIPERACILLIN-TAZOB 2.25GM 100 ML IV SCH (15:56)
[2025-02-03 18:17] LABS: Chloride 101 mmol/L (98-107); Potassium 4.6 mmol/L (3.5-5.1); Sodium 141 mmol/L (136-145)
[2025-02-03 18:19] LABS: Anion Gap 8 (5-15); Hematocrit 25.5 % (41.0-53.0); Hemoglobin 8.4 g/dL (13.5-17.5); Mean Corpuscular Hemoglobin 30.3 pg (28.0-32.0); Mean Corpuscular Volume 91.4 fL (80.0-100.0)
[2025-02-03 18:24] LABS: BUN/Creatinine Ratio 6.5 (10.0-20.0)
[2025-02-03 18:26] LABS: Blood Urea Nitrogen 32 mg/dL (9-23); Calcium 7.9 mg/dL (8.7-10.4); Carbon Dioxide 32 mmol/L (20-31); Glucose 126 mg/dL (74-106)
[2025-02-03 19:35] LABS: Total Cells Counted 100.0 (100)
[2025-02-03 19:36] LABS: Anisocytosis Slight
--- NOTE | 2025-02-03 20:56 | DVHPN2 ---
Progress Note - Dictate Date Seen: Feb 03, 2025 Has the PT tested + for MRSA If YES, has PT been informed?: No Medical Necessity Reason Pt with a Central, PICC or Fol: Yes The following are medically ne: Central Line, Mora Catheter Reason for mora catheter: Nakul. Abd Surgery Subjective Mr. Gillis is a 24 years old gentleman with a history of asthma, gallstone, obesity, the patient was brought to the [facility] on 01/29/2025 with a chief complaint of witnessed cardiopulmonary arrest. I have seen and examined the patient, I have discussed with his nurse, I have discussed with his nurse and family. He is intubated, nonresponsive to stroke painful stimuli, pupil is dilated and nonreactive, no gag reflexes I have discussed with nuclear medicine UDS, 01/29/2025 1616: Fentanyl, benzo Urinalysis, 01/29/2025: WBC: 1, urine leukocyte esterase: Negative ABG, 01/29/2025: Metabolic acidosis, 01/30/25: Metabolic acidosis WBC/HB/PLT/MCV, 01/29/2025: 20.1/8.3/234/107.4. 01/30/2025: 28.4/12.1/127/91.2 PT/INR/PTT, 01/29/2025: 19.6/1.98/53.8. 01/30/2025: 13.6/1.32/28.7 Na 01/29/2025: 146, 152, 01/30/2025: 147 BUN/CR, 01/30/2025: 29/4.34 Lactic acid, 01/29/2025: 1749, 01/30/2025: 11.4 Troponin one high sensitivity, 01/29/2025: 2273, 4364, 7474 TBI/AST/ALT/AP, 01/29/2025: 1.3/676/700/136. /: 2.10/4635/2521/137 CT head, 01/29/2025:No evidence of acute intracranial abnormality (I see signs suggestive of diffuse brain edema) CT head 01/30/2025: Diffuse cerebral edema with cerebellar tonsillar herniation. Recommend MRI brain for further evaluation. Critical Result: above finding CT abdomen, pelvis, 01/29/2025: 1. Hepatic hematoma measuring up to approximately 8.6 cm in greatest dimension, as described above, with hemorrhage extending beyond the liver capsule and into the right pericolic gutter as well as into the pelvis. No definite active arterial bleeding is seen on this exam, although limited evaluation due to the timing of contrast, as this was not a CTA exam. 2. Postsurgical changes of cholecystectomy. 3. Dilated fluid-filled small bowel loops, may be due to postoperative ileus. No small bowel obstruction. 4. Small volume pneumoperitoneum, likely due to recent surgery. Small volume of gas are seen in the upper ventral abdomen from the recent surgery. 5. Dependent atelectasis in the lower lobes. Otherwise, no acute disease in the chest. 6. Endotracheal tube and enteric tube in place. 7. Atrophic right kidney incidentally noted. 8. Additional findings as described above Brain imaging flow, 02/03/2025: Findings described above, which would be consistent with brain in the appropriate clinical setting, however clinical correlation is needed. vital signs Vital Sign Date Time Temp Pulse Resp B/P (MAP) Pulse Ox O2 Delivery O2 Flow Rate FiO2 02/03/25 19:30 105 17 108/62 (77) 97 30 02/03/25 18:00 Mechanical Ventilator+ 02/03/25 16:00 97.5 97.5 Total Intake and Output 02/02/25 02/02/25 02/03/25 14:59 22:59 06:59 Intake Total 624.75 ml 347.50 ml 154 ml Output Total 3000 ml 540 ml 380 ml Balance -2375.25 ml -192.50 ml -226 ml medications Current Medications Medications Dose Ordered Sig/Serenity Route Start Time Stop Time Status Last Admin Dose Admin Norepinephrine Bitartrate 250 ml @ 3.75 mls/hr Q24H IV 01/29/25 10:00 02/01/25 17:06 15 MLS/HR Midazolam HCl 50 ml @ 1 mls/hr Q24H IV 01/29/25 14:15 01/29/25 15:56 5 MLS/HR Fentanyl Citrate 250 ml @ 2.5 mls/hr Q24H IV 01/29/25 14:15 Pantoprazole Sodium 40 mg DAILY IV 01/30/25 10:00 02/03/25 09:28 40 MG Phenylephrine HCl 250 ml @ 30 mls/hr Q8H20M IV 01/29/25 19:30 01/30/25 01:39 116.25 MLS/HR Levalbuterol HCl 0.625 mg Q4HR PRN NEB 01/29/25 20:00 02/02/25 06:23 0.625 MG Ipratropium [place] 0.5 mg Q4HPRN PRN NEB 01/29/25 20:00 02/02/25 06:23 0.5 MG Epinephrine HCl 250 ml @ 7.5 mls/hr Q24H IV 01/30/25 00:15 Vasopressin 20 units/Sodium Chloride 100 ml @ 9 mls/hr Q11H7M IV 01/30/25 07:30 02/03/25 13:09 9 MLS/HR Amino Acids 0 ml @ 0 mls/hr PER PHARMACY IV 02/01/25 11:15 Diagnostic Test (Pha) 1 strip Q6HR 02/01/25 18:00 02/03/25 17:28 1 STRIP Insulin Human Regular FOLLOW SLIDING SCALE Q6HR [place] 02/01/25 18:00 02/02/25 11:36 2 UNITS Dextrose 50 ml UD IV 02/01/25 12:30 Bumetanide 25 mg/ Miscellaneous 100 ml @ 4 mls/hr Q24H IV 02/01/25 14:00 02/03/25 13:09 4 MLS/HR Albumin Human 100 ml @ 100 mls/hr PRN PRN IV 02/02/25 09:45 02/02/25 13:52 100 MLS/HR Sodium Chloride 10 meq/Calcium Gluconate 4.65 meq/Magnesium Sulfate 8 meq/ Multivitamins 10 ml/Amino Acids/ Dextrose 924.5 ml @ 39 mls/hr [id number] IV 02/02/25 22:00 02/03/25 21:59 02/02/25 21:52 39 MLS/HR Fat Emulsion Intravenous 50 ml/ Calcium Gluconate 7 meq/Magnesium Sulfate 8 meq/ Multivitamins 10 ml/Amino Acids/ Dextrose 1,177.0537 ml @ 49 mls/hr Q24H2M IV 02/03/25 22:00 02/04/25 21:59 Epoetin Gunnar-epbx 4,000 unit MWF@2100 AK 02/03/25 21:00 Piperacillin Sod/ Tazobactam Sod 100 ml @ 25 mls/hr Q8HR IV 02/03/25 14:00 02/03/25 15:56 25 MLS/HR objective The patient is well-nourished and well-developed with no distress, he has jaundice. The patient is intubated MENTAL STATUS: Subjective CRANIAL NERVES: Pupils are equal, round, dilated and fixed. There are no corneal reflexes, no doll's eyes phenomenon. No signs of facial weakness. There are no gagging or coughing reflexes SENSATION: No responses to pain stimuli. MOTOR: Normal tone in the upper and lower extremity. Normal muscle bulk. No fasciculations. No spontaneous movement. REFLEXES: Deep tendon reflexes are symmetrical. No pathological reflexes. CEREBELLAR/COORDINATION: Deferred GAIT/STATION: deferred. laboratory and microbiology Laboratory Tests 02/03/25 18:00 Test 02/03/25 18:00 Range/Units Serum Glucose 126 H 74-106 mg/dL Problem List Cardiopulmonary arrest Status post CPR Coma Hypoxic encephalopathy Metabolic encephalopathy Diffuse brain edema Brain herniation Hepatic hematoma Sepsis Septic shock Hypovolemic shock Liver failure Acute kidney failure Anemia Brain Assessment/Plan Monitoring Supportive treatment Follow-up labs ICU care Respiratory support/vent management Stabilize vitals/pressor drip Oxygen IV antibiotics GI prophylaxis Surgery on case Infectious disease on case Cardiology on case Nephrology on case Pulmonolog on case More recommendation per clinical course This medical document was created using an electronic medical record system with [employer] dictation system. Although this document has been carefully reviewed, there may still be some phonetic and typographical errors. These areas are purely typographical due to imperfections of the software programs, and do not reflect any compromise in the patient's medical care. More recommendation per clinical course Prognosis Guarded Dietary Evaluation Review Recommendations by RD: PPN/TPN Comments: 1) Increase TPN rate to meet at least 75% of estimated daily needs 2) Advance to renal cardiac diet when medically feasible, pending ST approval 3) Follow-up with cardiology, pulmonology, nephrology, neurology, and gastroenterology 4) Continue to monitor I&O, labs, and skin integrity Expected Outcomes/Goals: 1) nutritional support to meet at least 75% of estimated daily needs 2) labs and wound to improve 3) diet to advance 4) gradual wt loss 5) f/u in 2-3 days Plan discussed with: Other Critical Care Time(min): 45 ALONZO MILLARD MD Feb 03, 2025 20:56
[2025-02-03 21:04] LABS: Base Excess 6.2 mmol/L (-2.0-3.0)
--- NOTE | 2025-02-03 21:28 | DVHPN2 ---
Progress Note Date Seen: Feb 03, 2025 Has the PT tested + for MRSA If YES, has PT been informed?: No Medical Necessity Reason Pt with a Central, PICC or Fol: Yes The following are medically ne: Central Line, Mora Catheter Reason for mora catheter: Nakul. Abd Surgery Subjective Review of Systems Arrived at 620 PM. Pt's mother, sister and brother at the bedside. Per RN. No changes. Unfortunately Plts have not been administered. Have to get them from [place]. Still pending. Decreased Vasopressin requirements. Had volume neutral HD for hyperkalemia. Cerebral perfusion scan results discussed with the pt's mother, sister and brother. Aware of no cerebral perfusion, concordant with clinical findings and EEG. I spent nearly 3 hrs with the patient and his family.Comforted mother, brother and sister separately as they comforted me as well. They exprressed gratitude for everything done for him. We all prayed together with the High Rigger, RN present as well. Last rites were administered. Had a separate discussion with Angely (pt's older sister). She inquired about next steps. Given 3 options. I made he aware that he was identified as a registered organ donor. [facility] [employer] has been informed and they will make their assessment with regards to candidacy when pt's family is ready. Angely and I agree the patient's mother is not ready at this time. She believes organ donation is a beautiful thing as he would continue living on as he helps someone else in need. the other option is comfort measure/compassionate extubation, which would likely lead to respiratory arrest and his physical demise. The last option would be to proceed with tracheostomy and PEG, likely remaining on a ventilator in persistent vegetative state (coma). The patient's mother had already refused this option as she does not want to extend his suffering. Angely, agrees with this. Objective vital signs Vital Sign Date Time Temp Pulse Resp B/P (MAP) Pulse Ox O2 Delivery O2 Flow Rate FiO2 02/03/25 19:30 105 17 108/62 (77) 97 30 02/03/25 18:00 Mechanical Ventilator+ 02/03/25 16:00 97.5 97.5 Total Intake and Output 02/02/25 02/02/25 02/03/25 15:00 23:00 07:00 Intake Total 636.00 ml 366.25 ml 129 ml Output Total 3000 ml 540 ml 380 ml Balance -2364.00 ml -173.75 ml -251 ml medications Current Medications Medications Dose Ordered Sig/Serenity Route Start Time Stop Time Status Last Admin Dose Admin Norepinephrine Bitartrate 250 ml @ 3.75 mls/hr Q24H IV 01/29/25 10:00 02/01/25 17:06 15 MLS/HR Midazolam HCl 50 ml @ 1 mls/hr Q24H IV 01/29/25 14:15 01/29/25 15:56 5 MLS/HR Fentanyl Citrate 250 ml @ 2.5 mls/hr Q24H IV 01/29/25 14:15 Pantoprazole Sodium 40 mg DAILY IV 01/30/25 10:00 02/03/25 09:28 40 MG Phenylephrine HCl 250 ml @ 30 mls/hr Q8H20M IV 01/29/25 19:30 01/30/25 01:39 116.25 MLS/HR Levalbuterol HCl 0.625 mg Q4HR PRN NEB 01/29/25 20:00 02/02/25 06:23 0.625 MG Ipratropium [place] 0.5 mg Q4HPRN PRN NEB 01/29/25 20:00 02/02/25 06:23 0.5 MG Epinephrine HCl 250 ml @ 7.5 mls/hr Q24H IV 01/30/25 00:15 Vasopressin 20 units/Sodium Chloride 100 ml @ 9 mls/hr Q11H7M IV 01/30/25 07:30 02/03/25 13:09 9 MLS/HR Amino Acids 0 ml @ 0 mls/hr PER PHARMACY IV 02/01/25 11:15 Diagnostic Test (Pha) 1 strip Q6HR 02/01/25 18:00 02/03/25 17:28 1 STRIP Insulin Human Regular FOLLOW SLIDING SCALE Q6HR SC 02/01/25 18:00 02/02/25 11:36 2 UNITS Dextrose 50 ml UD IV 02/01/25 12:30 Bumetanide 25 mg/ Miscellaneous 100 ml @ 4 mls/hr Q24H IV 02/01/25 14:00 02/03/25 13:09 4 MLS/HR Albumin Human 100 ml @ 100 mls/hr PRN PRN IV 02/02/25 09:45 02/02/25 13:52 100 MLS/HR Sodium Chloride 10 meq/Calcium Gluconate 4.65 meq/Magnesium Sulfate 8 meq/ Multivitamins 10 ml/Amino Acids/ Dextrose 924.5 ml @ 39 mls/hr [id number] IV 02/02/25 22:00 02/03/25 21:59 02/02/25 21:52 39 MLS/HR Fat Emulsion Intravenous 50 ml/ Calcium Gluconate 7 meq/Magnesium Sulfate 8 meq/ Multivitamins 10 ml/Amino Acids/ Dextrose 1,177.0537 ml @ 49 mls/hr Q24H2M IV 02/03/25 22:00 02/04/25 21:59 Epoetin Gunnar-epbx 4,000 unit MWF@2100 [place] 02/03/25 21:00 Piperacillin Sod/ Tazobactam Sod 100 ml @ 25 mls/hr Q8HR IV 02/03/25 14:00 02/03/25 15:56 25 MLS/HR Examination Neuro. Unable to examine at the time. Pt's mother grieving at the pt's side. CV. Mildly tachycardic 100s and hypotensive. Hemodynamically unstable on vasopressor support. Levophed off and Vasopressin down to 0.2. Pulmonary: Intubated with mechanical ventilator support 500/14/30%/+7. Changed rate to 16 GI: Deferred . Mora catheter in place. Extremities; No edema Resolved facial and neck edema. laboratory and microbiology Laboratory Tests 02/03/25 18:00 Test 02/03/25 18:00 Range/Units Serum Glucose 126 H 74-106 mg/dL Microbiology Date/Time Source Procedure Growth Status 02/02/25 22:00 Urine - [place] Urine Culture - Preliminary Resulted 02/02/25 19:20 Blood Blood Culture - Preliminary NO GROWTH AFTER 24 HOURS OF INCUBATION. Resulted 01/30/25 00:00 Nose MRSA Screen - Final Complete 01/29/25 10:43 Sputum Gram Stain - Final Complete 01/29/25 10:43 Sputum Respiratory Culture - Final Complete Labs and/or images reviewed: Labs reviewed by me Problem List/Assessment/Plan Problems(with codes): (1) Thrombocytopenia (2) Cerebral edema (3) Tonsillar hernia into foramen magnum (4) Shock liver (5) Ventilator dependent (6) ARF (acute renal failure) Problem List/Assessment/Plan Neuro: Appreciate neurology input and assistance. CT revealed Cerebral edema and tonsillar herniation.EEG no electric activity. Cerebral perfusion study confirmed no perfusion concordant with clinical diagnosis and EEG. CV: Hemodynamic instability secondary to hemorrhagic shock Continue vasopressor support.Titrate as needed to maintain MAP 65. Decreasing vasopressor requirements. Elevated troponin, likely secondary and/or worsened by hemodynamic stress and CPR. Can't rule out ischemia. Cardiology assistance appreciated. Mechanical DVT prophylaxis. Pulmonary: VDRF. Continue ventilator. Appreciate pulmonary medicine assistance. GI: NPO. Continue TPN. Continue GI prophylaxis. Hepatic shock, improving. Improving transaminases. Appreciate GI assistance. . ARF secondary to hemorrhagic shock. Strict I&O. Mora to gravity. Appreciate nephrology assistance. Replace/correct electrolytes. HD Bumex gtt and IVFs per nephrology. Heme/ID. Received TXA, PCC, 4 u PRBC. 3 FFP and 2 u Cryoprecipitate, 1 Plt. Pending 1 u Plts from [place]. Hemorrhagic shock and coagulopathy. Coagulopathy resolved. Hgb slowly decreasing. Thrombocytopenia may be impacting ability to form thrombus given recent surgery and plats below 50k. Thrombocytopenia, possible consumptive and compounded with hepatic shock, lack of thrombopoietin. Repeat labs AM. Appreciate hematology assistance. Leukocytosis, likely reactive. All Cx negative todate. Continue prophylactic antibiotics. Endocrine: Tight glycemic control. Skin :Skin care and pressure ulcer precautions. Plan discussed with: Other (RN, mother, brother and sister) My Orders My Orders Orders - JITENDRA ZAMORA MD Procedure Category Date Status Time Complete Blood Count LAB 02/04/25 Verified 04:00 Comprehensive LAB 02/04/25 Verified Metabolic Panel 04:00 Amino Acid PHA 02/03/25 In Process Infusion... W/Fat 22:00 Tpn Per Pharmacy YANET 02/03/25 In Process 22:00 Comprehensive LAB 02/04/25 Verified Metabolic Panel 05:00 Magnesium LAB 02/04/25 Verified 05:00 Phosphorus LAB 02/04/25 Verified 05:00 Piperacillin-Tazob PHA 02/03/25 In Process 2.25gm (Zosyn 2.25gm) 14:00 Ventilator Orders RT 02/03/25 Transmitted 19:23 Abg W/ Co-Ox RT 02/03/25 Logged 21:00 Dietary Evaluation Review Recommendations by RD: PPN/TPN Comments: 1) Increase TPN rate to meet at least 75% of estimated daily needs 2) Advance to renal cardiac diet when medically feasible, pending ST approval 3) Follow-up with cardiology, pulmonology, nephrology, neurology, and gastroenterology 4) Continue to monitor I&O, labs, and skin integrity Expected Outcomes/Goals: 1) nutritional support to meet at least 75% of estimated daily needs 2) labs and wound to improve 3) diet to advance 4) gradual wt loss 5) f/u in 2-3 days JITENDRA ZAMORA MD Feb 03, 2025 21:28
[2025-02-03] MEDS: EPOETIN ALFA-EPBX 4,000 UNIT/ML VIAL SC SCH (22:04)
[2025-02-03] MEDS: TPN PER PHARMACY IV NR (22:16)
--- NOTE | 2025-02-03 22:58 | DVHPN2 ---
Subjective DOS: 02/03/2025 [facility] Patient seen and examined at bedside. Intubated on mechanical ventilator. Overnight events reviewed. HPI: A 24-year-old man with past medical history of asthma and gallstone pancreatitis who underwent laparoscopic cholecystectomy on 01/28/2025 in [facility]. Patient was discharged on same day; and as per medical records he developed nausea, vomiting and shortness of breath the night prior to presentation and woke up very weak; noted on AM of presentation with altered level of consciousness. Paramedics were called and patient was found to be in cardiac arrest. CPR was done, ROSC obtained; however patient had fixed and dilated pupils per ER documentation on arrival. CT abdomen/pelvis without contrast in ED revealed a hepatic hematoma measuring 8.6 cm with hemorrhage extending beyond the liver capsule into the right paracolic gutter as well as the pelvis. The patient was emergently taken back to surgery and underwent evacuation of a large hemoperitoneum,. was subsequently admitted to ICU. Pulmonary consultation is requested for evaluation and management of acute hypoxic respiratory failure requiring mechanical ventilator. Past Medical History: Asthma and gallstone pancreatitis Past Surgical History: Laparoscopic cholecystectomy on 01/28/2025 at [facility] Medications: Reviewed. Allergies: No known drug allergies. Family History: No family history of premature CAD. No family history of lung disorders. Social History: Nonsmoker. No alcohol or illicit drug use. Changes from previous H/P or p: No Changes Objective Vitals Vital Signs Date Time Temp Pulse Resp B/P (MAP) Pulse Ox O2 Delivery O2 Flow Rate FiO2 02/03/25 22:40 98.4 103 18 123/71 98.4 02/03/25 22:10 97 30 02/03/25 18:00 Mechanical Ventilator+ Intake/Output Intake and Output 02/03/25 07:00 Intake Total 1131.25 ml Output Total 3920 ml Balance -2788.75 ml IV Total 1131.25 ml Output Urine Total 725 ml Gastric Drainage Total 75 ml Drainage Total 120 ml Other 3000 ml Exam Gen.: Patient lying in bed in medical ICU. Sedated, intubated on mechanical ventilator. Head: Normocephalic, atraumatic. Eyes: Pupils fixed and blown Ears: Normal external anatomy. Throat: Endotracheal tube and orogastric tube in place. Neck: Supple, trachea midline. Chest: Transmitted breath sounds bilaterally. Decreased air entry bilaterally. No wheezing. Bibasilar crackles. Cardiovascular: Positive S1, positive S2. Regular rate and rhythm. Abdomen: Positive bowel sounds in all 4 quadrants. Soft, nontender, nondistended. : Green in place. Normal external genitalia. Rectal: Deferred. Skin: Warm, dry. Intact. Extremities: 2+ radial pulses bilaterally. No lower extremity edema. Neuro: No responses to painful stimuli. Medications Current Medications Medications Dose Ordered Sig/Serenity Route Start Time Stop Time Status Last Admin Dose Admin Norepinephrine Bitartrate 250 ml @ 3.75 mls/hr Q24H IV 01/29/25 10:00 02/01/25 17:06 15 MLS/HR Midazolam HCl 50 ml @ 1 mls/hr Q24H IV 01/29/25 14:15 01/29/25 15:56 5 MLS/HR Fentanyl Citrate 250 ml @ 2.5 mls/hr Q24H IV 01/29/25 14:15 Pantoprazole Sodium 40 mg DAILY IV 01/30/25 10:00 02/03/25 09:28 40 MG Phenylephrine HCl 250 ml @ 30 mls/hr Q8H20M IV 01/29/25 19:30 01/30/25 01:39 116.25 MLS/HR Levalbuterol HCl 0.625 mg Q4HR PRN NEB 01/29/25 20:00 02/02/25 06:23 0.625 MG Ipratropium [place] 0.5 mg Q4HPRN PRN NEB 01/29/25 20:00 02/02/25 06:23 0.5 MG Epinephrine HCl 250 ml @ 7.5 mls/hr Q24H IV 01/30/25 00:15 Vasopressin 20 units/Sodium Chloride 100 ml @ 9 mls/hr Q11H7M IV 01/30/25 07:30 02/03/25 13:09 9 MLS/HR Amino Acids 0 ml @ 0 mls/hr PER PHARMACY IV 02/01/25 11:15 Diagnostic Test (Pha) 1 strip Q6HR 02/01/25 18:00 02/03/25 17:28 1 STRIP Insulin Human Regular FOLLOW SLIDING SCALE Q6HR SC 02/01/25 18:00 02/02/25 11:36 2 UNITS Dextrose 50 ml UD IV 02/01/25 12:30 Bumetanide 25 mg/ Miscellaneous 100 ml @ 4 mls/hr Q24H IV 02/01/25 14:00 02/03/25 13:09 4 MLS/HR Albumin Human 100 ml @ 100 mls/hr PRN PRN IV 02/02/25 09:45 02/02/25 13:52 100 MLS/HR Fat Emulsion Intravenous 50 ml/ Calcium Gluconate 7 meq/Magnesium Sulfate 8 meq/ Multivitamins 10 ml/Amino Acids/ Dextrose 1,177.0537 ml @ 49 mls/hr Q24H2M IV 02/03/25 22:00 02/04/25 21:59 02/03/25 22:16 49 MLS/HR Epoetin Gunnar-epbx 4,000 unit MWF@2100 SC 02/03/25 21:00 02/03/25 22:04 4,000 UNIT Piperacillin Sod/ Tazobactam Sod 100 ml @ 25 mls/hr Q8HR IV 02/03/25 14:00 02/03/25 22:03 25 MLS/HR Laboratory Results Laboratory Tests 02/03/25 18:00 Chemistry Test 02/03/25 03:15 02/03/25 18:00 Albumin 3.2 g/dL (3.2-4.8) Calcium Level 7.7 mg/dL (8.7-10.4) L 7.9 mg/dL (8.7-10.4) L Magnesium Level 2.2 mg/dL (1.6-2.6) Phosphorus Level 5.6 mg/dL (2.4-5.1) H Total Protein 5.4 g/dL (5.7-8.2) L Coagulation Test 02/03/25 03:15 Prothrombin Time 11.0 sec (9.3-11.8) Prothrombin Time INR 1.04 (0.9-1.15) Activated Partial Thromboplast Time 31.4 SEC (24.5-34.5) Lipid panel Test 02/03/25 03:15 Triglycerides Level 93 mg/dL (< 150) LFT Test 02/03/25 03:15 Alanine Aminotransferase (ALT) 735 U/L (7-40) H Alkaline Phosphatase 172 U/L (46-116) H Aspartate Amino Transferase (AST) 586 U/L (13-40) H Total Bilirubin 1.0 mg/dL (0.2-1.0) Urinalysis Test 01/29/25 09:54 01/29/25 14:15 Urine Color Light-orange (Yellow) Urine Clarity Turbid (Clear) H Urine pH 5.5 (5.0-9.0) Urine Specific [place] 1.017 (1.001-1.035) Urine Protein 2+ (Negative) H Urine Ketones Trace (Negative) Urine Blood 3+ /uL (Negative) H Urine Nitrite Negative (Negative) Urine Bilirubin Negative (Negative) Urine Urobilinogen Normal mg/dL (Negative) Urine Leukocyte Esterase Negative /uL (Negative) Urine RBC 130 /hpf (0 - 3) Urine Microscopic WBC < 1 /HPF (0-3) Urine Squamous Epithelial Cells Mod /hpf (<5) Urine Amorphous Crystals Few /hpf (None Seen) Urine Bacteria Few /hpf (None Seen) H Urine Glucose Trace mg/dL (Normal) Urine Creatinine 19.64 mg/dL (30.0-125.0) L Urine Sodium 98 mmol/L (40-220) Urine Total Protein 245.5 mg/dL (1-14) H Blood Gas Results Test 02/03/25 07:08 02/03/25 20:50 Arterial Blood pH 7.344 (7.350-7.450) 7.468 (7.350-7.450) FiO2 % 30.0 30.0 Microbiology Microbiology Date/Time Source Procedure Growth Status 02/02/25 22:00 Urine - [place] Urine Culture - Preliminary Resulted 02/02/25 19:20 Blood Blood Culture - Preliminary NO GROWTH AFTER 24 HOURS OF INCUBATION. Resulted 01/30/25 00:00 Nose MRSA Screen - Final Complete 01/29/25 10:43 Sputum Gram Stain - Final Complete 01/29/25 10:43 Sputum Respiratory Culture - Final Complete Assessment/Plan Assessment/Plan Impression: Acute hypoxic respiratory failure On mechanical ventilator Status post cardiac arrest Possible anoxic brain injury NSTEMI, possible type 2 Hypovolemic shock Acute kidney injury secondary to hypovolemic shock Obesity, BMI 30.4 Multiorgan failure Events: Remains on vent support AC mode with RR 14, VT 500, PEEP 7, FiO2 30% Improved FIO2 requirements ABG notable for acidemia CXR reviewed; Slight interval retraction of the endotracheal tube such that the tip now projects approximately 3.3 cm above the level of the meghan. No evidence of acute cardiopulmonary process. Continue antibiotics. Continue Protonix for GI ppx HD per Nephrology - HD per Nephro yesterday and today Monitor renal function Monitor electrolytes. Supplement as necessary. Monitor ins and outs. Monitor hemoglobin - currently 8.4 g/dL Transfuse if less than 7.0 g/dL Note, patient with pupils fixed and blown NM brain perfusion study c/w anoxic brain injury Poor chance of meaningful recovery Neurology recommendations appreciated. Labs and imaging reviewed. Rest of plan as noted below. Plan: s/p intubation on mechanical ventilator On assist control with respiratory rate of 14, tidal volume 500, PEEP of 7, FiO2 of 30% Titrate FIO2 to keep O2 saturation above 92%. VAP bundle Daily ABG and CXR while intubated. Start pressors if necessary for hemodynamic support. On pressors for hemodynamic support. Titrate to keep MAP above 65 mmHg/SBP above 90 mmHg. Continue antibiotics. F/u cultures. Blood cultures no growth thus far Sputum culture grew normal oropharyngeal slava. Monitor hemoglobin Monitor renal function due to acute kidney injury. Monitor electrolytes. Supplement as necessary. Continue diuresis per Nephrology Monitor ins and outs Hemodialysis per nephrology Nutritional support. Accu-Cheks, ISS. GI/DVT prophylaxis. Condition: Critical Prognosis: Poor given multiple comorbidities. Rest of plan per hospitalist and other consultants. A total of 35 minutes of critical care time was spent reviewing the patient record, examining the patient, making a diagnostic and therapeutic plan, discussing this plan with the medical personnel, following up on diagnostic studies and following the patient for clinical stability excluding any and all procedures. At least 50% of this time was spent in direct, [id number] contact. Thank you for allowing me to participate in this patient's care. Further recommendations will depend on patient's clinical course. Please do not hesitate to contact me if you have any questions or concerns. This medical document was created using an electronic medical record system with [employer] system. Although this document has been carefully reviewed, there may still be some phonetic and typographical errors. These areas are purely typographical due to imperfections of the software programs, and do not reflect any compromise in the patient's medical care. Plan discussed with: Other (MARY ANN Berrios) My Orders Orders - NEHEMIAS BEASLEY MD Procedure Category Date Status Time Abg W/ Co-Ox RT 02/03/25 Logged 05:39 Ventilator Orders RT 02/03/25 Transmitted 05:39 Date of Service: Feb 03, 2025 Billing Provider: NEHEIMAS BEASLEY MD Common Visit Codes: [id number] INP/OBS CARE(HIGH), 84102-UPTAQSSM CARE 30-74 MIN NEHEMIAS BEASLEY MD Feb 03, 2025 22:58
[2025-02-04] VITALS (114 sets, daily range): BP systolic 106–145; BP diastolic 51–86; PULSE 87–106; RESP 14–22; TEMP 97.5–98.8; O2SAT 94–99
[2025-02-04 04:23] LABS: Hematocrit 23.9 % (41.0-53.0); Hemoglobin 8.0 g/dL (13.5-17.5); Mean Corpuscular Hemoglobin 30.1 pg (28.0-32.0); Mean Corpuscular Volume 89.6 fL (80.0-100.0)
[2025-02-04 04:35] LABS: Anion Gap 10 (5-15); BUN/Creatinine Ratio 8.8 (10.0-20.0); Carbon Dioxide 30 mmol/L (20-31); Chloride 102 mmol/L (98-107); Glucose 101 mg/dL (74-106); Magnesium 2.2 mg/dL (1.6-2.6); Potassium 4.4 mmol/L (3.5-5.1); Sodium 142 mmol/L (136-145)
[2025-02-04 04:36] LABS: Bilirubin, Total 0.9 mg/dL (0.2-1.0)
--- NOTE | 2025-02-04 04:41 | DVH ---
CHEST RADIOGRAPH Indication: intubated patient Technique: Single frontal view of the chest was obtained COMPARISON: XY CHEST PORTABLE on DOS: 02/03/25, XY CHEST PORTABLE on DOS: 02/02/25, XY CHEST PORTABLE o n DOS: 02/01/25, XY CHEST PORTABLE on DOS: 02/01/25, XY CHEST PORTABLE on DOS: 01/31/25 FINDINGS: Lines and Tubes: Endotracheal tube tip projects approximately 1.9 cm above the level of the meghan. Remaining lines and tubes unchanged. Lungs: Clear Pleura: No effusion. No pneumothorax. Cardiomediastinal contours: Unremarkable Bones: Unremarkable IMPRESSION: 1. Endotracheal tube in appropriate position. Remaining lines and tubes unchanged. 2. No evidence of acute cardiopulmonary process.
[2025-02-04 04:42] LABS: Alanine Aminotransferase 444 U/L (7-40); Albumin 2.9 g/dL (3.2-4.8); Alkaline Phosphatase 175 U/L (46-116); Blood Urea Nitrogen 47 mg/dL (9-23); Calcium 8.0 mg/dL (8.7-10.4); Total Protein 5.1 g/dL (5.7-8.2)
[2025-02-04 05:31] LABS: Nucleated Red Blood Cells % 1.0 %; Total Cells Counted 100.0 (100)
[2025-02-04] MEDS ORDERED: TRANEXAMIC ACID 1,000 MG in SODIUM CHL 0.9% 100 ML IV ONE (06:00)
--- NOTE | 2025-02-04 06:33 | DVHPN2 ---
Progress Note Date Seen: Feb 04, 2025 Has the PT tested + for MRSA If YES, has PT been informed?: No Medical Necessity Reason Pt with a Central, PICC or Fol: Yes The following are medically ne: Central Line, Mora Catheter Reason for mora catheter: Nakul. Abd Surgery Subjective Review of Systems No significant events overnight. Per RN. Pt's mother and brother went home to rest. A sister from [place] came to stay with him. Already went home. He is off pressors. 35mL ss fluid from drain. Hgb 8. Plts 60. Blood Cx GPC clustes in two sets Objective vital signs Vital Sign Date Time Temp Pulse Resp B/P (MAP) Pulse Ox O2 Delivery O2 Flow Rate FiO2 02/04/25 04:05 105 20 126/72 (90) 95 30 02/04/25 04:00 Mechanical Ventilator+ 02/04/25 00:48 98.2 98.2 Total Intake and Output 02/03/25 02/03/25 02/04/25 14:59 22:59 06:59 Intake Total 416 ml 495 ml 546 ml Output Total 550 ml 545 ml Balance 416 ml -55 ml 1 ml medications Current Medications Medications Dose Ordered Sig/Serenity Route Start Time Stop Time Status Last Admin Dose Admin Norepinephrine Bitartrate 250 ml @ 3.75 mls/hr Q24H IV 01/29/25 10:00 02/01/25 17:06 15 MLS/HR Midazolam HCl 50 ml @ 1 mls/hr Q24H IV 01/29/25 14:15 01/29/25 15:56 5 MLS/HR Fentanyl Citrate 250 ml @ 2.5 mls/hr Q24H IV 01/29/25 14:15 Pantoprazole Sodium 40 mg DAILY IV 01/30/25 10:00 02/03/25 09:28 40 MG Phenylephrine HCl 250 ml @ 30 mls/hr Q8H20M IV 01/29/25 19:30 01/30/25 01:39 116.25 MLS/HR Levalbuterol HCl 0.625 mg Q4HR PRN NEB 01/29/25 20:00 02/02/25 06:23 0.625 MG Ipratropium [place] 0.5 mg Q4HPRN PRN NEB 01/29/25 20:00 02/02/25 06:23 0.5 MG Epinephrine HCl 250 ml @ 7.5 mls/hr Q24H IV 01/30/25 00:15 Vasopressin 20 units/Sodium Chloride 100 ml @ 9 mls/hr Q11H7M IV 01/30/25 07:30 02/03/25 13:09 9 MLS/HR Amino Acids 0 ml @ 0 mls/hr PER PHARMACY IV 02/01/25 11:15 Diagnostic Test (Pha) 1 strip Q6HR 02/01/25 18:00 02/04/25 05:53 1 STRIP Insulin Human Regular FOLLOW SLIDING SCALE Q6HR NV 02/01/25 18:00 02/02/25 11:36 2 UNITS Dextrose 50 ml UD IV 02/01/25 12:30 Bumetanide 25 mg/ Miscellaneous 100 ml @ 4 mls/hr Q24H IV 02/01/25 14:00 02/03/25 13:09 4 MLS/HR Albumin Human 100 ml @ 100 mls/hr PRN PRN IV 02/02/25 09:45 02/02/25 13:52 100 MLS/HR Fat Emulsion Intravenous 50 ml/ Calcium Gluconate 7 meq/Magnesium Sulfate 8 meq/ Multivitamins 10 ml/Amino Acids/ Dextrose 1,177.0537 ml @ 49 mls/hr Q24H2M IV 02/03/25 22:00 02/04/25 21:59 02/03/25 22:16 49 MLS/HR Epoetin Gunnar-epbx 4,000 unit MWF@2100 NV 02/03/25 21:00 02/03/25 22:04 4,000 UNIT Piperacillin Sod/ Tazobactam Sod 100 ml @ 25 mls/hr Q8HR IV 02/03/25 14:00 02/04/25 05:46 25 MLS/HR Vancomycin HCl 0 ml @ 0 mls/hr UD IV 02/04/25 09:00 UNV Examination Neuro. Unchanged. Dilated fixed pupils. No refleses CV. Mildly tachycardic 100s and normotensive. Hemodynamically stable.Vasopressors held. CVP 10-11. A line, RIJ TLC and LSCV catheter exit sites clean, willy and intact. No erythema Pulmonary: Intubated with mechanical ventilator support 500/14/30%/+7. GI: Soft, obese, non distended and non tender. Dressing C/D/I. Drain with thin serosanguineous fluid. OGT in place. Bilious fluid within . Mora catheter in place. Extremities; No edema Resolved facial and neck edema. Mild orbital edema laboratory and microbiology Laboratory Tests 02/04/25 03:30 Test 02/04/25 03:30 Range/Units Serum Glucose 101 74-106 mg/dL Microbiology Date/Time Source Procedure Growth Status 02/02/25 22:00 Urine - [place] Urine Culture - Preliminary Resulted 02/02/25 19:20 Blood Blood Culture - Preliminary Resulted 01/30/25 00:00 Nose MRSA Screen - Final Complete 01/29/25 10:43 Sputum Gram Stain - Final Complete 01/29/25 10:43 Sputum Respiratory Culture - Final Complete Labs and/or images reviewed: Labs reviewed by me Problem List/Assessment/Plan Problems(with codes): (1) Thrombocytopenia (2) Cerebral edema (3) Tonsillar hernia into foramen magnum (4) Ventilator dependent (5) ARF (acute renal failure) Problem List/Assessment/Plan Neuro: Appreciate neurology input and assistance. CT revealed Cerebral edema and tonsillar herniation.EEG no electric activity. Cerebral perfusion study confirmed no perfusion radiographically consistent with brain , and concordant with initial clinical diagnosis and EEG.Neuro to confirm, in the event pt's becomes organ donor. Awaiting family to grieve and process. Will keep in touch with pt's family later today. CV: Hemodynamic instability secondary to hemorrhagic shock. Resolved. Vasopressors on hold. Elevated troponin, likely secondary and/or worsened by hemodynamic stress and CPR. Can't rule out ischemia. Cardiology assistance appreciated. Mechanical DVT prophylaxis. Pulmonary: VDRF. Continue ventilator. Appreciate pulmonary medicine assistance. GI: NPO. Continue TPN. Continue GI prophylaxis. Hepatic shock, improving. Improving transaminases. Appreciate GI assistance. . ARF secondary to hemorrhagic shock. Strict I&O. Mora to gravity. Appreciate nephrology assistance. Replace/correct electrolytes. HD Bumex gtt and IVFs per nephrology. Heme/ID. Received TXA, PCC, 4 u PRBC. 3 FFP and 2 u Cryoprecipitate, 1 pack of Plts transfused. Hemorrhagic shock and coagulopathy. Coagulopathy resolved. Hgb 8. No signs of bleeding. Will give 500 mg of TXA (renal dose) and 1 u PRBC.. Thrombocytopenia may be impacting ability to form thrombus given recent surgery and plts below 50k. Thrombocytopenia, possible consumptive and compounded with hepatic shock, lack of thrombopoietin. Plts 60 today. Repeat labs AM. Appreciate hematology assistance. Leukocytosis, slightly improved. Repeat set of Bld Cx GPC clusters. Will add Vancomycin renal dose to antibiotic regimen. Change TLC to PICC. May have to consider changing LSCV HD catheter and L radial A line. Endocrine: Tight glycemic control. Skin: Skin care and pressure ulcer precautions. Plan discussed with: Other (RN) My Orders My Orders Orders - JITENDRA ZAMORA MD Procedure Category Date Status Time Amino Acid PHA 02/03/25 In Process Infusion... W/Fat 22:00 Tpn Per Pharmacy YANET 02/03/25 In Process 22:00 Piperacillin-Tazob PHA 02/03/25 In Process 2.25gm (Zosyn 2.25gm) 14:00 Ventilator Orders RT 02/03/25 Transmitted 19:23 Abg W/ Co-Ox RT 02/03/25 Logged 21:00 Chest Portable XY 02/04/25 Resulted 04:00 Vancomycin Per PHA 02/04/25 Pending Pharmacy 09:00 Tranexamic Acid PHA 02/04/25 In Process (Tranexamic Acid) 06:00 Dietary Evaluation Review Recommendations by RD: PPN/TPN Comments: 1) Increase TPN rate to meet at least 75% of estimated daily needs 2) Advance to renal cardiac diet when medically feasible, pending ST approval 3) Follow-up with cardiology, pulmonology, nephrology, neurology, and gastroenterology 4) Continue to monitor I&O, labs, and skin integrity Expected Outcomes/Goals: 1) nutritional support to meet at least 75% of estimated daily needs 2) labs and wound to improve 3) diet to advance 4) gradual wt loss 5) f/u in 2-3 days JITENDRA ZAMORA MD Feb 04, 2025 06:33
[2025-02-04] MEDS: TRANEXAMIC ACID IV ONE (07:40)
[2025-02-04] MEDS: SODIUM CHL 0.9% IV ONE (07:40)
--- NOTE | 2025-02-04 08:20 | DVHPN2 ---
Progress Note - Dictate Date Seen: Feb 04, 2025 Has the PT tested + for MRSA If YES, has PT been informed?: No Medical Necessity Reason Pt with a Central, PICC or Fol: Yes The following are medically ne: Central Line, Mora Catheter Reason for mora catheter: Nakul. Abd Surgery vital signs Vital Sign Date Time Temp Pulse Resp B/P (MAP) Pulse Ox O2 Delivery O2 Flow Rate FiO2 02/04/25 07:05 98.8 106 16 129/73 98.8 02/04/25 06:30 95 02/04/25 06:12 30 02/04/25 06:00 Mechanical Ventilator+ Total Intake and Output 02/03/25 02/03/25 02/04/25 15:00 23:00 07:00 Intake Total 416 ml 527 ml 752 ml Output Total 550 ml 545 ml Balance 416 ml -23 ml 207 ml medications Current Medications Medications Dose Ordered Sig/Serenity Route Start Time Stop Time Status Last Admin Dose Admin Norepinephrine Bitartrate 250 ml @ 3.75 mls/hr Q24H IV 01/29/25 10:00 02/01/25 17:06 15 MLS/HR Midazolam HCl 50 ml @ 1 mls/hr Q24H IV 01/29/25 14:15 01/29/25 15:56 5 MLS/HR Fentanyl Citrate 250 ml @ 2.5 mls/hr Q24H IV 01/29/25 14:15 Pantoprazole Sodium 40 mg DAILY IV 01/30/25 10:00 02/03/25 09:28 40 MG Phenylephrine HCl 250 ml @ 30 mls/hr Q8H20M IV 01/29/25 19:30 01/30/25 01:39 116.25 MLS/HR Levalbuterol HCl 0.625 mg Q4HR PRN NEB 01/29/25 20:00 02/02/25 06:23 0.625 MG Ipratropium [place] 0.5 mg Q4HPRN PRN NEB 01/29/25 20:00 02/02/25 06:23 0.5 MG Epinephrine HCl 250 ml @ 7.5 mls/hr Q24H IV 01/30/25 00:15 Vasopressin 20 units/Sodium Chloride 100 ml @ 9 mls/hr Q11H7M IV 01/30/25 07:30 02/03/25 13:09 9 MLS/HR Amino Acids 0 ml @ 0 mls/hr PER PHARMACY IV 02/01/25 11:15 Diagnostic Test (Pha) 1 strip Q6HR 02/01/25 18:00 02/04/25 05:53 1 STRIP Insulin Human Regular FOLLOW SLIDING SCALE Q6HR SC 02/01/25 18:00 02/02/25 11:36 2 UNITS Dextrose 50 ml UD IV 02/01/25 12:30 Bumetanide 25 mg/ Miscellaneous 100 ml @ 4 mls/hr Q24H IV 02/01/25 14:00 02/03/25 13:09 4 MLS/HR Albumin Human 100 ml @ 100 mls/hr PRN PRN IV 02/02/25 09:45 02/02/25 13:52 100 MLS/HR Fat Emulsion Intravenous 50 ml/ Calcium Gluconate 7 meq/Magnesium Sulfate 8 meq/ Multivitamins 10 ml/Amino Acids/ Dextrose 1,177.0537 ml @ 49 mls/hr Q24H2M IV 02/03/25 22:00 02/04/25 21:59 02/03/25 22:16 49 MLS/HR Epoetin Gunnar-epbx 4,000 unit MWF@2100 MI 02/03/25 21:00 02/03/25 22:04 4,000 UNIT Piperacillin Sod/ Tazobactam Sod 100 ml @ 25 mls/hr Q8HR IV 02/03/25 14:00 02/04/25 05:46 25 MLS/HR Vancomycin HCl 0 ml @ 0 mls/hr UD IV 02/04/25 09:00 UNV laboratory and microbiology Laboratory Tests 02/04/25 03:30 Test 02/04/25 03:30 Range/Units Serum Glucose 101 74-106 mg/dL Assessment/Plan Still being managed in ICU. Still intubated and on vent support. Still no reflexes. Pupils dilated and fixed Has been evaluated by Neurology: hypoxic/metabolic Encephalopathy Echocardiogram revealed no WMA and also revealed good EF. It also revealed increased Pulmonary Artery Pressure in favor of component of Pulmonary Hypertension. s/p Hemodialysis Received blood and platelet transfusion Brain scan questions brain , needs Neurology follow up Patient is a 24-year-old gentleman who was originally brought to the hospital for post arrest. Patient is seen in postop area. Patient is intubated and on multiple pressor supports. Patient is not source of history. Information was obtained by reviewing the chart, talking to patient's family/mother and communicating with staff and reviewing outside records ([facility]). Patient did have elective outpatient laparoscopic cholecystectomy in [facility] on January 28 2025. As per mother, after going home, patient was feeling very hungry and was eating and drinking a lot. He started feeling abdominal pain with nausea at night and in the morning was short of breath. As per mother: patient has stopped breathing in the morning and family called 911. As per mother, as per guidance of 911, family started CPR until EMS arrived. Patient was intubated and was brought to the hospital by EMS. Since arrival to [facility], patient was seen by surgeon who took the patient to operating room and performed laparotomy (there was hepatic hematoma). Postoperatively, the patient has remained hypotensive. There is signs for multiorgan involvement. Patient was not alert and did not complain of any chest pains. Labs revealed increased troponin. Cardiology is involved for cardiac aspects of care and abnormal troponin. First available EKG reveals sinus tachycardia with no specific ST-T changes. Telemetry had revealed sinus tachycardia throughout the stay. Patient is found to have significant anemia and is receiving blood transfusion at the time of evaluation. It is of note that at the time of evaluation patient does not have any reflexes. Intubated. Mucosa pale. Dilated and fixed pupils, Scattered rhonchi in the lungs. Cardiac: Tachycardic. No murmur. Abdomen is covered by dressing. Extremities do not reveal any edema. Dorsalis pedis is 1+ bilateral. Patient does not respond to any stimuli. Reported past medical history includes asthma and obesity. Reportedly, on January 23, 2025: Patient presented to [facility] for abdominal pain/nausea/vomiting. At that point the problems were ongoing for few weeks. In [facility], CT of the abdomen and MRCP were performed. Patient was seen by GI/surgery. Patient was found to have gallstones. Patient was discharged and later on January 28, 2025 presented back to [facility] for elective laparoscopy cholecystectomy. Patient was discharged home from [facility] after laparoscopic cholecystectomy. As per mother, patient does not have baseline history of any cardiac history. As per mother, patient was using marijuana. Mother denies any previous substance abuse besides marijuana. No specific family history is reported On January 23, 2025, labs in [facility] revealed creatinine of 0.84, hemoglobin of 15.2 and troponin (high sensitive) of <3. At that point EKG was normal WBC: 20.1 - 19.0 - 22.7 - 20.6 - 28.4 - 20.3 - 21.0 - 25.2 - 29.8 - 29.5 - 29.0 - 26.2 - 21.7 - 19.7 Hemoglobin: 8.3 - 6.5 - 12.1 - 11.1 - 12.1 - 9.3 - 9.2 - 9.1 - 8.4 - 9.0 - 9.5 - 8.8 - 8.4 - 8.0 Fibrinogen: 108 - 316 - 537 Creatinine: 4.02 - 3.78 - 3.90 - 3.95 - 4.34 - 5.44 - 6.05 - 6.73 - 7.31 - 7.77 - 6.64 - 7.30 - 4.91 - 5.32 Potassium: 5.6 - 4.6 - 4.8 - 3.9 - 2.9 - 2.9 - 3.6 - 3.8 - 4.9 - 5.4 - 6.0 - 5.1 - 5.3 - 6.1 - 6.0 - 4.6 - 4.4 AST/ALT: 676/700 - 2327/6 - 4636/2521 - -/1995 - 2500/1989 - 1780/1821 - 808/995 - 586/735 - 456/444 Lactic acid: 17.9 - 17.2 - 11.4 Troponin (high sensitive): 2973 - 2712 - 4364 - 7493 - 7474 TSH: 11.05 Urine Toxicology: positive for Fentanyl and Benzodiazepine Chest x-ray revealed: Lines and Tubes: Endotracheal tube projects 2.2 cm above the meghan. Right internal jugular central venous catheter tip projects over superior vena cava. Lungs: No focal consolidation. Low lung volumes. Pleura: No effusion. No pneumothorax. Cardiomediastinal contours: Unremarkable Bones: No acute osseous abnormality. IMPRESSION: Lines and tubes as above. Low lung volumes. Repeat chest x-ray revealed: IMPRESSION: Lines and tubes in satisfactory position. Mild increased pulmonary vascular congestion Repeat chest xry revealed: IMPRESSION: Lines and tubes in satisfactory position. Mild increased pulmonary vascular congestion Repeat chest xry revealed: IMPRESSION: 1. Low lung volumes with concomitant crowding of the pulmonary vasculature. 2. No evidence of focal consolidation. 3. Lines and tubes unchanged. Repeat chest xry revealed: IMPRESSION: 1. Slight interval retraction of the endotracheal tube such that the tip now projects approximately 4.7 cm above the level of the meghan. Remaining lines and tubes unchanged. 2. Otherwise no significant change compared to prior exam. Repeat chest xry revealed: IMPRESSION: 1. Slight interval advancement of endotracheal tube such that the tip now projects approximately 1.7 cm above the level of the meghan. Remaining lines and tubes unchanged. 2. Otherwise no significant change compared to prior exam. Repeat chest xry revealed: IMPRESSION: 1. Slight interval retraction of the endotracheal tube such that the tip now projects approximately 3.3 cm above the level of the meghan. Remaining lines and tubes unchanged. 2. No evidence of acute cardiopulmonary process. Repeat chest xry revealed: IMPRESSION: 1. Endotracheal tube in appropriate position. Remaining lines and tubes unchanged. 2. No evidence of acute cardiopulmonary process. Brain scan revealed: FINDINGS: Absence of cerebral blood flow is noted along with no brain parenchymal radiotracer uptake. Increased activity is seen in the central face likely representing vascular shunting consistent with the so-called "hot nose" sign. Findings suggest brain however clinical correlation is necessary. IMPRESSION: Findings described above, which would be consistent with brain in the appropriate clinical setting, however clinical correlation is needed. CT of the chest/abdomen/pelvis revealed: IMPRESSION: 1. Hepatic hematoma measuring up to approximately 8.6 cm in greatest dimension, as described above, with hemorrhage extending beyond the liver capsule and into the right pericolic gutter as well as into the pelvis. No definite active arterial bleeding is seen on this exam, although limited evaluation due to the timing of contrast, as this was not a CTA exam. 2. Postsurgical changes of cholecystectomy. 3. Dilated fluid-filled small bowel loops, may be due to postoperative ileus. No small bowel obstruction. 4. Small volume pneumoperitoneum, likely due to recent surgery. Small volume of gas are seen in the upper ventral abdomen from the recent surgery. 5. Dependent atelectasis in the lower lobes. Otherwise, no acute disease in the chest. 6. Endotracheal tube and enteric tube in place. 7. Atrophic right kidney incidentally noted. 8. Additional findings as described above. Critical findings Critical Result: Acute hepatic hematoma with hemorrhage extending beyond the liver capsule into the adjacent portions of the abdomen and into the pelvis as detailed above. Repeat CT of chest/abdomen/pelvis revealed: There is limited interpretation of the chest, abdomen and pelvis without administration of intravenous contrast. Endotracheal tube tip terminates just at the meghan / left main bronchus. Diffuse bilateral pulmonary airspace consolidation bilaterally significantly increased. Bilateral lower lobe lobar consolidation/ atelectasis, increased from prior. Small bilateral pleural effusions. There is extensive edema/ stranding within the upper anterior chest, neck region/supraclavicular region. There is some hyperdensity within this region which could represent components of hematoma / blood products. Heterogeneous appearance of the thyroid gland. Right IJ catheter terminating at the cavoatrial junction. Adrenal glands unremarkable in shape. Perisplenic hematoma. Interval postsurgical changes in the right upper quadrant of the abdomen. There appears to be surgicel/gaseous collection within the previous hematoma cavity, likely representing surgicel. There is a radiopaque density within the resection cavity as well which measures 6.2 x 4.6 cm.. Postoperative changes of the right anterior abdomen with soft tissue emphysema. Small amount of pneumoperitoneum Surgical drainage catheter terminating in the right upper quadrant of the abdomen Right renal parenchymal atrophy. Left kidney demonstrates perinephric edema / stranding. No left hydronephrosis. Nasogastric tube projects towards the distal stomach. Moderate distention small bowel loops. Rectal catheter. Moderate distention of the large bowel loops. Normal appendix. Abdominal aorta normal in caliber. Small amount of ascites fluid/ mesenteric edema. Bladder decompressed by Mora catheter. Soft tissue edema /anasarca. Mesenteric edema. Small amount of ascites fluid. The osseous structures are stable. IMPRESSION: Limited evaluation without contrast. Interval evacuation of the right upper quadrant hematoma. Surgicel within the resection cavity. No significant interval development of new hematoma. There are 2 radiopaque lap pads within the resection cavity . Findings reviewed with Dr. Ledesma at 11:51 a.m. on 01/30/2025 Perisplenic hematoma, similar to previous examination. Extensive bilateral pulmonary airspace consolidation, significantly increased from previous examination. Small bilateral pleural effusions. Right upper quadrant drainage catheter. Pneumoperitoneum. Soft tissue edema / anasarca. Small amount of ascites fluid/ mesenteric edema. Extensive edema within the anterior chest, neck region. Heterogeneous appearance thyroid gland. Other findings as described. CT of the head revealed: IMPRESSION: 1. No evidence of acute intracranial abnormality. Repeat CT of head revealed: FINDINGS: Cerebellar tonsilar herniation. There is sulcal and ventricular effacement. The basal cisterns are effaced. Loss of mario-white matter differentiation is noted. The skull and visible facial bones are intact. The paranasal sinuses, mastoid air cells and middle ear cavities are well-aerated. The soft tissues of the scalp are unremarkable. IMPRESSION: Diffuse cerebral edema with cerebellar tonsillar herniation. Recommend MRI brain for further evaluation. CT of Neck revealed: IMPRESSION: Limited evaluation without contrast. Extensive soft tissue edema within the neck extending into the anterior / upper chest and anterior mediastinum . Retropharyngeal edema. Heterogeneous appearance of the thyroid gland. Inferior cerebellar tonsillar herniation better seen on the prior CT Renal Ultrasound revealed: IMPRESSION: 1. Right kidney not visible. 2. Left kidney is enlarged. 3. No hydronephrosis. Venous duplex of lower ext revealed: IMPRESSION: NO SONOGRAPHIC EVIDENCE FOR DEEP VENOUS THROMBOSIS IN THE RIGHT LOWER EXTREMITY VEINS. EEG reported: This is a remarkably abnormal EEG, this EEG seen in severe cerebral dysfunction due to metabolic/hypoxic encephalopathy or medication effects, unless this is caused by reversible etiology, this EEG is suggestive of a poor prognosis for meaningful recovery, please correlate clinically. Arrival EKG revealed sinus tachycardia with nonspecific ST-T changes Tele reveals sinus tachycardia Echocardiogram revealed: Technically limited study secondary to poor acoustic windows. Left ventricle: Left ventricle was normal-sized with normal systolic function. LVEF was 55-60%. No gross wall motion abnormality was seen. Right ventricle was mildly dilated with normal systolic function. Left atrium was normal-sized. Right atrium was mildly dilated. Aortic valve: Aortic valve was not well visualized. There was no aortic insufficiency/stenosis. There was no mitral regurgitation. There was trace tricuspid regurgitation. Pulmonary valve was not well visualized. IVC was not visualized. Right ventricular systolic pressure was assessed around 48 mm Hg. There was no pericardial effusion. Patient is a 24-year-old gentleman who presented with post arrest. It seems that the patient had hemorrhagic (intra-abdominal) presentation. Patient did have elective laparoscopic cholecystectomy the day before presentation. On the day of presentation, the patient was taken back to operating room and this time Laparotomy was done for hepatic hematoma. Patient does have multiorgan involvement. Clinically there is no brainstem reflexes. Shock liver/acute renal failure is considered. Troponin has been high. EKG did not reveal any STEMI. Presentation could be high troponin secondary to demand physiology. Patient does not have any risk factors for baseline coronary artery disease. In ideal scenario, ischemic workup/cardiac catheterization could be more revealing. Unfortunately, the patient does have acute renal failure which could be worsened by cardiac catheterization at this point. As there was no higher brain functions the suggestion is to wait and see if patient regains any higher brain function. It is of note that during cardiac catheterization, the patient may need some anticoagulation/antiplatelets. At this point patient is having significant anemia/bleeding and receiving blood transfusion and holding off of scenario forcing Anticoagulation/antiplatelets is advised. I had a long discussion with family members and Mother (repeatedly). Clinically patient has multiorgan failure. Secondary to active bleeding, we will avoid anticoagulation/antiplatelets for now. Being managed in ICU. Was taken to OR repeatedly. Still no reflexes. Echocardiogram revealed no WMA and also revealed good EF. It also revealed increased Pulmonary Artery Pressure in favor of component of Pulmonary Hypertension. Review of Echo images revealed good right ventricular systolic function. Not typical for Pulmonary Emboli. Still, PE cannot be ruled out. If PE is ruled out, then it is possible that patient had Pulmonary Hypertension from before (Baseline history of Asthma may actually reflect it). s/p PRBC transfusion (multiple). Being followed by Surgery, Nephrology, Hematology, Pulmonary, Neurology and GI. . Repeat imaging revealed cerebellar tonsillar herniation. Neurology diagnosed Hypoxic/Metabolic Encephalopathy also. EEG findings question meaningful recovery. s/ p Arrest Intra-abdominal bleeding Hepatic hematoma Multiorgan failure, due to shock Shock liver Lactic Acidosis Acute renal failure Acute respiratory failure, on vent support Status post laparotomy Status post laparoscopic cholecystectomy Abnormal troponin, evaluated to reflect possible demand physiology History of gallstones History of asthma Obesity History of marijuana abuse Consumptive Coagulopathy / DIC Pulmonary Hypertension Cerebellar tonsillar Herniation. Encephalopathy, hypoxic/metabolic Renal failure, started on hemodialysis Brain scan questions brain Cardiac suggestion for management: Manage in ICU Pressure support (patient on Levophed/vasopressor at the time) Follow-up electrolytes and kidney function tests and correct abnormalities Evaluation and management of respiratory failure as per Pulmonary Evaluation and management of Cerebellar tonsillar herniation as per Neurology/surgery V/Q scan could not be completed Neurology follow up, to comment on possibility of brain ? Brain scan questions brain , needs Neurology follow up Echocardiogram revealed no WMA and also revealed good EF. It also revealed increased Pulmonary Artery Pressure in favor of component of Pulmonary Hypertension. Hematology follow up (to comment on prophylaxis / treatment of Pulmonary Emboli) Surgical follow up Nephrology follow up (started on hemodialysis) and Hematology follow up Secondary to active bleeding, we will avoid anticoagulation/antiplatelets for now Long-term prognosis depends on the above and most importantly regaining of the higher brain function: looks very grim Ischemic workup may be considered only after regaining higher brain function or any special change in clinical presentation Further evaluation and management depends on the above and clinical course A total of 75 minutes was spent reviewing the patient record, examining the patient, making a diagnostic and therapeutic plan, discussing this plan with medical personnel, following up on diagnostic studies and following the patient for clinical stability excluding any and all procedures. At least 50% of this time was spent in direct, [id number] contact. Thank you for allowing me to participate in this patient's care. Further recommendations will depend on patient's clinical course. Please do not hesitate to contact me if you have any questions or concerns. This medical document was created using electronic medical record system with [employer] computerized dictation system. Although this document has been carefully reviewed, there may still be some phonetic and typographical errors. These areas are purely typographical due to the imperfection of the software programs, and do not reflect any compromise in the patient's medical care. Dietary Evaluation Review Recommendations by RD: PPN/TPN Comments: 1) Increase TPN rate to meet at least 75% of estimated daily needs 2) Advance to renal cardiac diet when medically feasible, pending ST approval 3) Follow-up with cardiology, pulmonology, nephrology, neurology, and gastroenterology 4) Continue to monitor I&O, labs, and skin integrity Expected Outcomes/Goals: 1) nutritional support to meet at least 75% of estimated daily needs 2) labs and wound to improve 3) diet to advance 4) gradual wt loss 5) f/u in 2-3 days Plan discussed with: Other (nurse) KATHLEEN COHEN MD Feb 04, 2025 08:20
[2025-02-04] MEDS ORDERED: VANCOMYCIN PER PHARMACY 0 MG IV SCH (09:00)
--- NOTE | 2025-02-04 09:32 | DVHPN2 ---
Progress Note Date Seen: Feb 04, 2025 Has the PT tested + for MRSA If YES, has PT been informed?: No Medical Necessity Reason Pt with a Central, PICC or Fol: Yes The following are medically ne: Central Line, Mora Catheter Reason for mora catheter: Nakul. Abd Surgery Subjective Changes from previous H/P or p: No Changes Review of Systems: NEURO:Abnormal Objective vital signs Vital Sign Date Time Temp Pulse Resp B/P (MAP) Pulse Ox O2 Delivery O2 Flow Rate FiO2 02/04/25 08:44 98.4 101 16 125/68 98.4 02/04/25 08:18 97 30 02/04/25 06:00 Mechanical Ventilator+ Total Intake and Output 02/03/25 02/03/25 02/04/25 15:00 23:00 07:00 Intake Total 416 ml 527 ml 752 ml Output Total 550 ml 545 ml Balance 416 ml -23 ml 207 ml medications Current Medications Medications Dose Ordered Sig/Serenity Route Start Time Stop Time Status Last Admin Dose Admin Norepinephrine Bitartrate 250 ml @ 3.75 mls/hr Q24H IV 01/29/25 10:00 02/01/25 17:06 15 MLS/HR Midazolam HCl 50 ml @ 1 mls/hr Q24H IV 01/29/25 14:15 01/29/25 15:56 5 MLS/HR Fentanyl Citrate 250 ml @ 2.5 mls/hr Q24H IV 01/29/25 14:15 Pantoprazole Sodium 40 mg DAILY IV 01/30/25 10:00 02/03/25 09:28 40 MG Phenylephrine HCl 250 ml @ 30 mls/hr Q8H20M IV 01/29/25 19:30 01/30/25 01:39 116.25 MLS/HR Levalbuterol HCl 0.625 mg Q4HR PRN NEB 01/29/25 20:00 02/02/25 06:23 0.625 MG Ipratropium [place] 0.5 mg Q4HPRN PRN NEB 01/29/25 20:00 02/02/25 06:23 0.5 MG Epinephrine HCl 250 ml @ 7.5 mls/hr Q24H IV 01/30/25 00:15 Vasopressin 20 units/Sodium Chloride 100 ml @ 9 mls/hr Q11H7M IV 01/30/25 07:30 02/03/25 13:09 9 MLS/HR Amino Acids 0 ml @ 0 mls/hr PER PHARMACY IV 02/01/25 11:15 Diagnostic Test (Pha) 1 strip Q6HR 02/01/25 18:00 02/04/25 05:53 1 STRIP Insulin Human Regular FOLLOW SLIDING SCALE Q6HR SC 02/01/25 18:00 02/02/25 11:36 2 UNITS Dextrose 50 ml UD IV 02/01/25 12:30 Bumetanide 25 mg/ Miscellaneous 100 ml @ 4 mls/hr Q24H IV 02/01/25 14:00 02/03/25 13:09 4 MLS/HR Albumin Human 100 ml @ 100 mls/hr PRN PRN IV 02/02/25 09:45 02/02/25 13:52 100 MLS/HR Fat Emulsion Intravenous 50 ml/ Calcium Gluconate 7 meq/Magnesium Sulfate 8 meq/ Multivitamins 10 ml/Amino Acids/ Dextrose 1,177.0537 ml @ 49 mls/hr Q24H2M IV 02/03/25 22:00 02/04/25 21:59 02/03/25 22:16 49 MLS/HR Epoetin Gunnar-epbx 4,000 unit MWF@2100 MN 02/03/25 21:00 02/03/25 22:04 4,000 UNIT Piperacillin Sod/ Tazobactam Sod 100 ml @ 25 mls/hr Q8HR IV 02/03/25 14:00 02/04/25 05:46 25 MLS/HR Vancomycin HCl 0 ml @ 0 mls/hr UD IV 02/04/25 09:00 Examination: GENERAL:Abnormal, LUNGS:Abnormal, NEURO:Abnormal laboratory and microbiology Laboratory Tests 02/04/25 03:30 Test 02/04/25 03:30 Range/Units Serum Glucose 101 74-106 mg/dL Microbiology Date/Time Source Procedure Growth Status 02/02/25 22:00 Urine - Mora Port Urine Culture - Preliminary Resulted 02/02/25 19:20 Blood Blood Culture - Preliminary Resulted 01/30/25 00:00 Nose MRSA Screen - Final Complete 01/29/25 10:43 Sputum Gram Stain - Final Complete 01/29/25 10:43 Sputum Respiratory Culture - Final Complete Problem List/Assessment/Plan Problem List/Assessment/Plan Acute kidney injury likely ischemic ATN in the setting of shock, FeNa > 2%, nonoliguric Acute respiratory failure, intubated on ventilator Status post cardiac arrest Anoxic encephalopathy//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 Status post ex lap, 01/29 Positive troponins NSTEMI--likely demand ischemia Shock liver no indication for dialysis today, will eval condition daily brain perfusion study consistent with brain surgery recs noted will monitor fluid balance YARY for anemia grim overall prognosis, medical decisions and end of life care to be considered Plan discussed with: Other My Orders My Orders Orders - SABINE ALLEN MD Procedure Category Date Status Time Hemodialysis Orders ORDERS 02/03/25 Transmitted 09:53 Dialysis Nursing YANET 02/03/25 In Process Message 09:53 Document Fluid Input YANET 02/03/25 In Process And Outpu 09:53 Epoetin Gunnar-Epbx PHA 02/03/25 In Process (Retacrit) 21:00 Dietary Evaluation Review Recommendations by RD: PPN/TPN Comments: 1) Increase TPN rate to meet at least 75% of estimated daily needs 2) Advance to renal cardiac diet when medically feasible, pending ST approval 3) Follow-up with cardiology, pulmonology, nephrology, neurology, and gastroenterology 4) Continue to monitor I&O, labs, and skin integrity Expected Outcomes/Goals: 1) nutritional support to meet at least 75% of estimated daily needs 2) labs and wound to improve 3) diet to advance 4) gradual wt loss 5) f/u in 2-3 days Critical Care Time (mins): 33 SABINE ALLEN MD Feb 04, 2025 09:32
[2025-02-04] MEDS: VANCOMYCIN 1.75GM/350ML 350 ML IV ONE (10:18)
[2025-02-04 10:21] LABS: Base Excess 7.9 mmol/L (-2.0-3.0)
--- NOTE | 2025-02-04 10:25 | DVHPN2 ---
Progress Note - Dictate Date Seen: Feb 04, 2025 Has the PT tested + for MRSA If YES, has PT been informed?: No Medical Necessity Reason Pt with a Central, PICC or Fol: Yes The following are medically ne: Central Line, Mora Catheter Reason for mora catheter: Nakul. Abd Surgery Subjective Mr. Gillis is a 24 years old gentleman with a history of asthma, gallstone, obesity, the patient was brought to the [facility] on 01/29/2025 with a chief complaint of witnessed cardiopulmonary arrest. I have seen and examined the patient, I have discussed with his nurse, I have discussed with his nurse and family. He is intubated, nonresponsive to stroke painful stimuli, pupils are dilated and fixed, no corneal reflexes, no doll's eye, no gag reflexes UDS, 01/29/2025 1616: Fentanyl, benzo Urinalysis, 01/29/2025: WBC: 1, urine leukocyte esterase: Negative ABG, 01/29/2025: Metabolic acidosis, 01/30/25: Metabolic acidosis WBC/HB/PLT/MCV, 01/29/2025: 20.1/8.3/234/107.4. 01/30/2025: 28.4/12.1/127/91.2 PT/INR/PTT, 01/29/2025: 19.6/1.98/53.8. 01/30/2025: 13.6/1.32/28.7 Na 01/29/2025: 146, 152, 01/30/2025: 147 BUN/CR, 01/30/2025: 29/4.34 Lactic acid, 01/29/2025: 1749, 01/30/2025: 11.4 Troponin one high sensitivity, 01/29/2025: 2273, 4364, 7474 TBI/AST/ALT/AP, 01/29/2025: 1.3/676/700/136. /: 2.10/4635/2521/137 EEG, 02/01/2025: This is a remarkably abnormal EEG, this EEG seen in severe cerebral dysfunction due to metabolic/hypoxic encephalopathy or medication effects, unless this is caused by reversible etiology, this EEG is suggestive of a poor prognosis for meaningful recovery, please correlate clinically. CT head, 01/29/2025:No evidence of acute intracranial abnormality (I see signs suggestive of diffuse brain edema) CT head 01/30/2025: Diffuse cerebral edema with cerebellar tonsillar herniation. Recommend MRI brain for further evaluation. Critical Result: above finding CT abdomen, pelvis, 01/29/2025: 1. Hepatic hematoma measuring up to approximately 8.6 cm in greatest dimension, as described above, with hemorrhage extending beyond the liver capsule and into the right pericolic gutter as well as into the pelvis. No definite active arterial bleeding is seen on this exam, although limited evaluation due to the timing of contrast, as this was not a CTA exam. 2. Postsurgical changes of cholecystectomy. 3. Dilated fluid-filled small bowel loops, may be due to postoperative ileus. No small bowel obstruction. 4. Small volume pneumoperitoneum, likely due to recent surgery. Small volume of gas are seen in the upper ventral abdomen from the recent surgery. 5. Dependent atelectasis in the lower lobes. Otherwise, no acute disease in the chest. 6. Endotracheal tube and enteric tube in place. 7. Atrophic right kidney incidentally noted. 8. Additional findings as described above Brain imaging flow, 02/03/2025: Findings described above, which would be consistent with brain in the appropriate clinical setting, however clinical correlation is needed. vital signs Vital Sign Date Time Temp Pulse Resp B/P (MAP) Pulse Ox O2 Delivery O2 Flow Rate FiO2 02/04/25 09:48 98.1 98 16 123/70 98.1 02/04/25 08:18 97 30 02/04/25 06:00 Mechanical Ventilator+ Total Intake and Output 02/03/25 02/03/25 02/04/25 15:00 23:00 07:00 Intake Total 416 ml 527 ml 752 ml Output Total 550 ml 545 ml Balance 416 ml -23 ml 207 ml medications Current Medications Medications Dose Ordered Sig/Serenity Route Start Time Stop Time Status Last Admin Dose Admin Norepinephrine Bitartrate 250 ml @ 3.75 mls/hr Q24H IV 01/29/25 10:00 02/01/25 17:06 15 MLS/HR Midazolam HCl 50 ml @ 1 mls/hr Q24H IV 01/29/25 14:15 01/29/25 15:56 5 MLS/HR Fentanyl Citrate 250 ml @ 2.5 mls/hr Q24H IV 01/29/25 14:15 Pantoprazole Sodium 40 mg DAILY IV 01/30/25 10:00 02/04/25 09:33 40 MG Phenylephrine HCl 250 ml @ 30 mls/hr Q8H20M IV 01/29/25 19:30 01/30/25 01:39 116.25 MLS/HR Levalbuterol HCl 0.625 mg Q4HR PRN NEB 01/29/25 20:00 02/02/25 06:23 0.625 MG Ipratropium [place] 0.5 mg Q4HPRN PRN NEB 01/29/25 20:00 02/02/25 06:23 0.5 MG Epinephrine HCl 250 ml @ 7.5 mls/hr Q24H IV 01/30/25 00:15 Vasopressin 20 units/Sodium Chloride 100 ml @ 9 mls/hr Q11H7M IV 01/30/25 07:30 02/03/25 13:09 9 MLS/HR Amino Acids 0 ml @ 0 mls/hr PER PHARMACY IV 02/01/25 11:15 Diagnostic Test (Pha) 1 strip Q6HR 02/01/25 18:00 02/04/25 05:53 1 STRIP Insulin Human Regular FOLLOW SLIDING SCALE Q6HR SC 02/01/25 18:00 02/02/25 11:36 2 UNITS Dextrose 50 ml UD IV 02/01/25 12:30 Bumetanide 25 mg/ Miscellaneous 100 ml @ 4 mls/hr Q24H IV 02/01/25 14:00 02/03/25 13:09 4 MLS/HR Albumin Human 100 ml @ 100 mls/hr PRN PRN IV 02/02/25 09:45 02/02/25 13:52 100 MLS/HR Fat Emulsion Intravenous 50 ml/ Calcium Gluconate 7 meq/Magnesium Sulfate 8 meq/ Multivitamins 10 ml/Amino Acids/ Dextrose 1,177.0537 ml @ 49 mls/hr Q24H2M IV 02/03/25 22:00 02/04/25 21:59 02/03/25 22:16 49 MLS/HR Epoetin Gunnar-epbx 4,000 unit MWF@2100 SC 02/03/25 21:00 02/03/25 22:04 4,000 UNIT Piperacillin Sod/ Tazobactam Sod 100 ml @ 25 mls/hr Q8HR IV 02/03/25 14:00 02/04/25 05:46 25 MLS/HR Vancomycin HCl 0 ml @ 0 mls/hr UD IV 02/04/25 09:00 Fat Emulsion Intravenous 50 ml/ Calcium Gluconate 4.65 meq/ Magnesium Sulfate 8 meq/ Multivitamins 10 ml/Amino Acids/ Dextrose 1,272 ml @ 53 mls/hr Q24H IV 02/04/25 22:00 02/05/25 21:59 objective The patient is well-nourished and well-developed with no distress, he has jaundice. The patient is intubated MENTAL STATUS: Subjective CRANIAL NERVES: Pupils are equal, round, dilated and fixed. There are no corneal reflexes, no doll's eyes phenomenon. No signs of facial weakness. There are no gagging or coughing reflexes SENSATION: No responses to pain stimuli. MOTOR: Normal tone in the upper and lower extremity. Normal muscle bulk. No fasciculations. No spontaneous movement. REFLEXES: Deep tendon reflexes are symmetrical. No pathological reflexes. CEREBELLAR/COORDINATION: Deferred GAIT/STATION: deferred. laboratory and microbiology Laboratory Tests 02/04/25 03:30 Test 02/04/25 03:30 Range/Units Serum Glucose 101 74-106 mg/dL Problem List Cardiopulmonary arrest Status post CPR Coma Hypoxic encephalopathy Metabolic encephalopathy Diffuse brain edema Brain herniation Hepatic hematoma Sepsis Septic shock Hypovolemic shock Liver failure Acute kidney failure Anemia Brain Assessment/Plan Monitoring Supportive treatment Follow-up labs ICU care Respiratory support/vent management Stabilize vitals/pressor drip Oxygen IV antibiotics GI prophylaxis Surgery on case Infectious disease on case Cardiology on case Nephrology on case Pulmonolog on case More recommendation per clinical course This medical document was created using an electronic medical record system with [employer] dictation system. Although this document has been carefully reviewed, there may still be some phonetic and typographical errors. These areas are purely typographical due to imperfections of the software programs, and do not reflect any compromise in the patient's medical care. More recommendation per clinical course Prognosis Guarded Dietary Evaluation Review Recommendations by RD: PPN/TPN Comments: 1) Increase TPN rate to meet at least 75% of estimated daily needs 2) Advance to renal cardiac diet when medically feasible, pending ST approval 3) Follow-up with cardiology, pulmonology, nephrology, neurology, and gastroenterology 4) Continue to monitor I&O, labs, and skin integrity Expected Outcomes/Goals: 1) nutritional support to meet at least 75% of estimated daily needs 2) labs and wound to improve 3) diet to advance 4) gradual wt loss 5) f/u in 2-3 days Plan discussed with: Other ALONZO MILLARD MD Feb 04, 2025 10:25
[2025-02-04] MEDS: LIDOCAINE 1% (LOCAL ANESTH.) PF 5ml SDV ID ONE (13:19)
[2025-02-04 13:25] LABS: Base Excess 6.1 mmol/L (-2.0-3.0)
--- NOTE | 2025-02-04 18:39 | DVHPN2 ---
Progress Note Date Seen: Feb 04, 2025 Has the PT tested + for MRSA If YES, has PT been informed?: No Medical Necessity Reason Pt with a Central, PICC or Fol: Yes The following are medically ne: Central Line, Mora Catheter Reason for mora catheter: Nakul. Abd Surgery Subjective Review of Systems Pt seen this evening. Mother and brother at the bedside. Per RN. 45 mL of ss fluid. RTLC removed, PICC placed.Condition remains unchanged and with poor prognosis. Mother asked to pray. RN, Mother and sister on the phone prayed. Pt's mother and son still have nicko that Derrek will recover. Mother has asked for patience. I have told her there is no robledo for her to make any decisions. They were made again aware that statistically/medically and humanly speaking his recovery prognosis is nil. They understand but they still believe that God is the only on who can see ahead and they have hope he will recover. Objective vital signs Vital Sign Date Time Temp Pulse Resp B/P (MAP) Pulse Ox O2 Delivery O2 Flow Rate FiO2 02/04/25 18:10 98 Mechanical Ventilator+ 30 30 02/04/25 18:10 91 17 123/57 (79) 02/04/25 15:17 15.0 02/04/25 12:00 98.2 98.2 Total Intake and Output 02/03/25 02/03/25 02/04/25 15:00 23:00 07:00 Intake Total 416 ml 527 ml 905 ml Output Total 550 ml 545 ml Balance 416 ml -23 ml 360 ml medications Current Medications Medications Dose Ordered Sig/Serenity Route Start Time Stop Time Status Last Admin Dose Admin Norepinephrine Bitartrate 250 ml @ 3.75 mls/hr Q24H IV 01/29/25 10:00 02/01/25 17:06 15 MLS/HR Midazolam HCl 50 ml @ 1 mls/hr Q24H IV 01/29/25 14:15 01/29/25 15:56 5 MLS/HR Fentanyl Citrate 250 ml @ 2.5 mls/hr Q24H IV 01/29/25 14:15 Pantoprazole Sodium 40 mg DAILY IV 01/30/25 10:00 02/04/25 09:33 40 MG Phenylephrine HCl 250 ml @ 30 mls/hr Q8H20M IV 01/29/25 19:30 01/30/25 01:39 116.25 MLS/HR Levalbuterol HCl 0.625 mg Q4HR PRN NEB 01/29/25 20:00 02/02/25 06:23 0.625 MG Ipratropium [place] 0.5 mg Q4HPRN PRN NEB 01/29/25 20:00 02/02/25 06:23 0.5 MG Epinephrine HCl 250 ml @ 7.5 mls/hr Q24H IV 01/30/25 00:15 Vasopressin 20 units/Sodium Chloride 100 ml @ 9 mls/hr Q11H7M IV 01/30/25 07:30 02/03/25 13:09 9 MLS/HR Amino Acids 0 ml @ 0 mls/hr PER PHARMACY IV 02/01/25 11:15 Diagnostic Test (Pha) 1 strip Q6HR 02/01/25 18:00 02/04/25 17:47 1 STRIP Insulin Human Regular FOLLOW SLIDING SCALE Q6HR IN 02/01/25 18:00 02/02/25 11:36 2 UNITS Dextrose 50 ml UD IV 02/01/25 12:30 Bumetanide 25 mg/ Miscellaneous 100 ml @ 4 mls/hr Q24H IV 02/01/25 14:00 02/04/25 14:26 4 MLS/HR Albumin Human 100 ml @ 100 mls/hr PRN PRN IV 02/02/25 09:45 02/02/25 13:52 100 MLS/HR Fat Emulsion Intravenous 50 ml/ Calcium Gluconate 7 meq/Magnesium Sulfate 8 meq/ Multivitamins 10 ml/Amino Acids/ Dextrose 1,177.0537 ml @ 49 mls/hr Q24H2M IV 02/03/25 22:00 02/04/25 21:59 02/03/25 22:16 49 MLS/HR Epoetin Gunnar-epbx 4,000 unit MWF@2100 [place] 02/03/25 21:00 02/03/25 22:04 4,000 UNIT Piperacillin Sod/ Tazobactam Sod 100 ml @ 25 mls/hr Q8HR IV 02/03/25 14:00 02/04/25 13:39 25 MLS/HR Vancomycin HCl 0 ml @ 0 mls/hr UD IV 02/04/25 09:00 Fat Emulsion Intravenous 50 ml/ Calcium Gluconate 4.65 meq/ Magnesium Sulfate 8 meq/ Multivitamins 10 ml/Amino Acids/ Dextrose 1,272 ml @ 53 mls/hr Q24H IV 02/04/25 22:00 02/05/25 21:59 Sodium Chloride 10 ml QSHIFT@10,22 IV 02/04/25 22:00 Examination Neuro. Unchanged. Dilated fixed pupils. No refleXes CV. Mildly tachycardic 90s and normotensive. Hemodynamically stable.Vasopressors held. CVP 8-9. Before Right TLC. A line, LSCV catheter exit sites clean, dry and intact. No erythema Pulmonary: Intubated with mechanical ventilator support 500/14/30%/+7. GI: Soft, obese, non distended and non tender. Dressing C/D/I. Drain with thin serosanguineous fluid. OGT in place. Bilious fluid within . Mora catheter in place. Extremities; No edema Resolved facial and neck edema. Mild orbital edema laboratory and microbiology Laboratory Tests 02/04/25 03:30 Test 02/04/25 03:30 Range/Units Serum Glucose 101 74-106 mg/dL Microbiology Date/Time Source Procedure Growth Status 02/02/25 22:00 Urine - Mora [place] Urine Culture - Preliminary Resulted 02/02/25 19:20 Blood Blood Culture - Preliminary Resulted 01/30/25 00:00 Nose MRSA Screen - Final Complete 01/29/25 10:43 Sputum Gram Stain - Final Complete 01/29/25 10:43 Sputum Respiratory Culture - Final Complete Labs and/or images reviewed: Labs reviewed by ct Problem List/Assessment/Plan Problems(with codes): (1) Thrombocytopenia (2) Cerebral edema (3) Tonsillar hernia into foramen magnum (4) Shock liver (5) Ventilator dependent (6) ARF (acute renal failure) (7) Coagulopathy Problem List/Assessment/Plan Neuro: Appreciate neurology input and assistance. CT revealed Cerebral edema and tonsillar herniation.EEG no electric activity. Cerebral perfusion study confirmed no perfusion radiographically consistent with brain , and concordant with initial clinical diagnosis and EEG. Based on above adjunct and clinical assessment, pt's condition is compatible with brain . Pt has been identified as organ donor. Awaiting family to grieve and process. [employer] representative has scheduled meeting tomorrow with pt's daughter to address process and any questions she may have. CV: Hemodynamic instability secondary to hemorrhagic shock. Resolved. Vasopressors on hold. Elevated troponin, likely secondary and/or worsened by hemodynamic stress and CPR. Can't rule out ischemia. Cardiology assistance appreciated. Mechanical DVT prophylaxis. Pulmonary: VDRF. Continue ventilator. Appreciate pulmonary medicine assistance. GI: NPO. Continue TPN. Continue GI prophylaxis. Hepatic shock, improving. Improving transaminases. Appreciate GI assistance. . ARF secondary to hemorrhagic shock. Strict I&O. Mora to gravity. Appreciate nephrology assistance. Replace/correct electrolytes. HD Bumex gtt and IVFs per nephrology. Heme/ID. Received TXA, PCC, 4 u PRBC. 3 FFP and 2 u Cryoprecipitate, 1 pack of Plts transfused last night. Hemorrhagic shock and coagulopathy. Coagulopathy resolved. Hgb 8. No signs of bleeding. 500 mg of TXA (renal dose) and 1 u PRBC given. Thrombocytopenia may be impacting ability to form thrombus given recent surgery and plts below 50k. Thrombocytopenia, possible consumptive and compounded with hepatic shock, lack of thrombopoietin. Plts 60 today. Repeat labs AM. Appreciate hematology assistance. Leukocytosis, slightly improved. Repeat set of Bld Cx GPC clusters. Vancomycin renal dose and Zosyn.PICC placed and RTLC removed. May have to consider changing LSCV HD catheter. Dr. Javier will change a line later today. Endocrine: Tight glycemic control. Skin: Skin care and pressure ulcer precautions. Plan discussed with: Other (Mother, brother, RN) My Orders My Orders Orders - JITENDRA ZAMORA MD Procedure Category Date Status Time Ventilator Orders RT 02/03/25 Transmitted 19:23 Abg W/ Co-Ox RT 02/03/25 Logged 21:00 Chest Portable XY 02/04/25 Resulted 04:00 Vancomycin Per PHA 02/04/25 In Process Pharmacy 09:00 * Picc Line Consult CONS 02/04/25 Transmitted 06:29 Complete Blood Count LAB 02/05/25 Verified 04:00 Creatinine LAB 02/05/25 Verified 04:00 Vancomycin,Random LAB 02/05/25 Verified 04:00 Amino Acid PHA 02/04/25 In Process Infusion... W/Fat 22:00 Comprehensive LAB 02/05/25 Verified Metabolic Panel 04:00 Magnesium LAB 02/05/25 Verified 04:00 Phosphorus LAB 02/05/25 Verified 04:00 Tpn Per Pharmacy [facility] 02/04/25 In Process 22:00 Ventilator Orders RT 02/04/25 Transmitted 10:54 Abg W/ Co-Ox RT 02/04/25 Logged 11:59 Us Guided Vascular US 02/04/25 Logged Access 12:50 Nursing Protocol Picc YANET 02/04/25 In Process 12:50 PICC BD 02/04/25 Transmitted 12:50 Sodium Chloride Lock PHA 02/04/25 In Process (Saline Lock Ns) 22:00 Do Not Use Picc For [facility] 02/04/25 In Process Blood Cult 12:50 May Draw Blood From [facility] 02/04/25 In Process Picc 12:50 Ok To Use Picc [facility] 02/04/25 In Process 12:50 Change Picc Dressing [facility] 02/04/25 In Process Q7 Days 12:50 Dietary Evaluation Review Recommendations by RD: PPN/TPN Comments: 1) Increase TPN rate to meet at least 75% of estimated daily needs 2) Advance to renal cardiac diet when medically feasible, pending ST approval 3) Follow-up with cardiology, pulmonology, nephrology, neurology, and gastroenterology 4) Continue to monitor I&O, labs, and skin integrity Expected Outcomes/Goals: 1) nutritional support to meet at least 75% of estimated daily needs 2) labs and wound to improve 3) diet to advance 4) gradual wt loss 5) f/u in 2-3 days JITENDRA ZAMORA MD Feb 04, 2025 18:39
--- NOTE | 2025-02-04 19:16 | DVHPNRES ---
Progress Note Date Seen: Feb 04, 2025 Resident Creating Document: ARNOLD MUHAMMAD DALE Has the PT tested + for MRSA If YES, has PT been informed?: No Medical Necessity Reason Pt with a Central, PICC or Fol: Yes The following are medically ne: Central Line, Mora Catheter Reason for mora catheter: Nakul. Abd Surgery Subjective Review of Systems Patient seen and examined at the bedside. Patient is sedated and on mechanical ventilation Objective vital signs Vital Sign Date Time Temp Pulse Resp B/P (MAP) Pulse Ox O2 Delivery O2 Flow Rate FiO2 02/04/25 18:45 92 18 122/56 (78) 97 02/04/25 18:10 Mechanical Ventilator+ 30 30 02/04/25 16:00 97.5 97.5 02/04/25 15:17 15.0 Total Intake and Output 02/03/25 02/03/25 02/04/25 15:00 23:00 07:00 Intake Total 416 ml 527 ml 905 ml Output Total 550 ml 545 ml Balance 416 ml -23 ml 360 ml medications Current Medications Medications Dose Ordered Sig/Serenity Route Start Time Stop Time Status Last Admin Dose Admin Norepinephrine Bitartrate 250 ml @ 3.75 mls/hr Q24H IV 01/29/25 10:00 02/01/25 17:06 15 MLS/HR Midazolam HCl 50 ml @ 1 mls/hr Q24H IV 01/29/25 14:15 01/29/25 15:56 5 MLS/HR Fentanyl Citrate 250 ml @ 2.5 mls/hr Q24H IV 01/29/25 14:15 Pantoprazole Sodium 40 mg DAILY IV 01/30/25 10:00 02/04/25 09:33 40 MG Phenylephrine HCl 250 ml @ 30 mls/hr Q8H20M IV 01/29/25 19:30 01/30/25 01:39 116.25 MLS/HR Levalbuterol HCl 0.625 mg Q4HR PRN NEB 01/29/25 20:00 02/02/25 06:23 0.625 MG Ipratropium Mott 0.5 mg Q4HPRN PRN NEB 01/29/25 20:00 02/02/25 06:23 0.5 MG Epinephrine HCl 250 ml @ 7.5 mls/hr Q24H IV 01/30/25 00:15 Vasopressin 20 units/Sodium Chloride 100 ml @ 9 mls/hr Q11H7M IV 01/30/25 07:30 02/03/25 13:09 9 MLS/HR Amino Acids 0 ml @ 0 mls/hr PER PHARMACY IV 02/01/25 11:15 Diagnostic Test (Pha) 1 strip Q6HR 02/01/25 18:00 02/04/25 17:47 1 STRIP Insulin Human Regular FOLLOW SLIDING SCALE Q6HR [place] 02/01/25 18:00 02/02/25 11:36 2 UNITS Dextrose 50 ml UD IV 02/01/25 12:30 Bumetanide 25 mg/ Miscellaneous 100 ml @ 4 mls/hr Q24H IV 02/01/25 14:00 02/04/25 14:26 4 MLS/HR Albumin Human 100 ml @ 100 mls/hr PRN PRN IV 02/02/25 09:45 02/02/25 13:52 100 MLS/HR Fat Emulsion Intravenous 50 ml/ Calcium Gluconate 7 meq/Magnesium Sulfate 8 meq/ Multivitamins 10 ml/Amino Acids/ Dextrose 1,177.0537 ml @ 49 mls/hr Q24H2M IV 02/03/25 22:00 02/04/25 21:59 02/03/25 22:16 49 MLS/HR Epoetin Gunnar-epbx 4,000 unit MWF@2100 [place] 02/03/25 21:00 02/03/25 22:04 4,000 UNIT Piperacillin Sod/ Tazobactam Sod 100 ml @ 25 mls/hr Q8HR IV 02/03/25 14:00 02/04/25 13:39 25 MLS/HR Vancomycin HCl 0 ml @ 0 mls/hr UD IV 02/04/25 09:00 Fat Emulsion Intravenous 50 ml/ Calcium Gluconate 4.65 meq/ Magnesium Sulfate 8 meq/ Multivitamins 10 ml/Amino Acids/ Dextrose 1,272 ml @ 53 mls/hr Q24H IV 02/04/25 22:00 02/05/25 21:59 Sodium Chloride 10 ml QSHIFT@10,22 IV 02/04/25 22:00 Examination General: RASS -5, afebrile, mucosae are moist Cardiovascular: Normal S1 and S2. No murmurs, gallops or rubs Respiratory: Mechanically assisted ventilation, equal bilateral airway entree. Clear lung sounds on auscultation Abdomen: Soft, nontender, no organomegaly, with surgical wound on abdomin MSK/skin: Mobilization of limbs cannot be evaluated. Skin is dry and warm. Neurological: Orientation cannot be assessed. Pupils are dilated and nonreactive to light, absent brainstem reflexes laboratory and microbiology Laboratory Tests 02/04/25 03:30 Test 02/04/25 03:30 Range/Units Serum Glucose 101 74-106 mg/dL Microbiology Date/Time Source Procedure Growth Status 02/02/25 22:00 Urine - Mora Port Urine Culture - Preliminary Resulted 02/02/25 19:20 Blood Blood Culture - Preliminary Resulted 01/30/25 00:00 Nose MRSA Screen - Final Complete 01/29/25 10:43 Sputum Gram Stain - Final Complete 01/29/25 10:43 Sputum Respiratory Culture - Final Complete Problem List/Assessment/Plan Problem List/Assessment/Plan This is a 24-year-old male with no significant past medical history underwent elective laparoscopic cholecystectomy on 01/28 at [facility] (due to cholelithiasis), on 2nd day postop at home became lethargic and subsequently coded. ROSC was achieved with CPR, abdominal CT scan showed intra-abdominal hematoma, underwent emergent laparotomy and drained about 500-750 thrombosed and dark blood. NEURO: Hypoxic encephalopathy, due to cardiac arrest Possible anoxic brain injury * RASS Score -5 * Head CT from 01/30 shows, Cerebellar tonsilar herniation. There is sulcal and ventricular effacement. The basal cisterns are effaced. Loss of mario-white matter differentiation is noted. * BRNNM-brain imaging flu, shows absence of serum bili flu findings suggest brain in the appropriate clinical setting CARDIOVASCULAR: NSTEMI possible type 2 Status post cardiac arrest Distributive shock (vasoplegia)/neurogenic shock/septic shock vasopressin * Cardiology on the board, recommended medical management * Echo from 01/30 shows,Technically limited study secondary to poor acoustic windows, normal LV size and function, 55-60% PULMONARY: Acute hypoxic respiratory failure, likely due to anoxic brain injury Cxr showed bilateral mild pulmonary vascular congestion GASTROINTESTINAL: Acute transaminitis secondary to hypovolemic shock Coagulopathy Hypoalbuminemia Status post laparoscopic cholecystectomy Status post exploratory laparotomy for hemoperitoneum GENITOURINARY: HARLEEN secondary to hypovolemic shock * Nephrology on the board, performed dialysis on 02/03 * IV Bumex drip METABOLIC: Severe anion gap metabolic acidosis due to lactic acidosis Hypernatremia Grade 2 obesity, BMI 35.7 kg per m2 Hypoglycemia HEME: Severe anemia, due to bleeding * Received 3 units of PRBC, 2 units of FFP and 1 unit of cryoprecipitate * Monitor H&H INFECTIOUS DISEASE: Leucocytosis Lactic acidosis * Urine culture, blood culture and respiratory culture shows no growth * On Zosyn DIET: TPN DVT prophylax: Hold GI prophylaxis: Protonix Code status: Full code LINES/DRAINS/ACCESS: ETT: Intubated on 01/29 IV access: Lt IJ placed on 01/29/25 left subclavian Drips: On vasopressin Mora catheter: Placed on 01/29 DISPOSITION: ICU status Patient's status discussed with the patient's mother at the bedside. Critical care time spent more than 52 minutes, including patient care, chart review, and updating the family. Excluding any procedures. Case discussed with Dr. Troy Plan discussed with: Patient Dietary Evaluation Review Recommendations by RD: PPN/TPN Comments: 1) Increase TPN rate to meet at least 75% of estimated daily needs 2) Advance to renal cardiac diet when medically feasible, pending ST approval 3) Follow-up with cardiology, pulmonology, nephrology, neurology, and gastroenterology 4) Continue to monitor I&O, labs, and skin integrity Expected Outcomes/Goals: 1) nutritional support to meet at least 75% of estimated daily needs 2) labs and wound to improve 3) diet to advance 4) gradual wt loss 5) f/u in 2-3 days Date of Service: Feb 04, 2025 Billing Provider: JEFFREY TROY MD Common Visit Codes: [id number] CARE 30-74 MIN ARNOLD MUHAMMAD RESDIENT Feb 04, 2025 19:16 JEFFREY TROY MD Feb 05, 2025 15:14
--- NOTE | 2025-02-04 21:03 | DVHNC2 ---
Procedure - Radial arterial line procedure note Indication: Hemodynamic monitoring, frequent blood ABG draws. Liaison Inspection Laboratory Assistant: Dr. Javier Date: 02/04/2025 Time: 2044 pm Consent: Consent was obtained from patient's healthcare proxy prior to procedure. Indications, risks, and benefits were explained at length. Patient medications and allergies reviewed. The risks and benefits of the procedure and the sedation options and risk were discussed with the patient's healthcare proxy. All questions were answered and informed consent was obtained. Patient identification and proposed procedure were verified prior to the procedure by the physician, and a nurse in the patient's room. The heart rate, respiratory rate, oxygen saturations, blood pressure, adequacy of pulmonary ventilation, and response to care were monitored throughout the procedure. The physical status of the patient was reassessed after the procedure. Procedure summary: A time-out was performed. My hands were washed immediately prior to the procedure. I wore surgical cap, mask with protective eyewear, sterile gown and sterile gloves throughout the procedure. After an Markus test was performed to ensure adequate perfusion, the RIGHT wrist was prepped using chlorhexidine scrub and draped in sterile fashion using sterile towels. The radial pulse was identified with the use of ultrasound. The wrist was positioned in the usual fashion. Anesthesia was achieved using 1% lidocaine. Using the radial arterial line kit, needle was inserted into the radial artery using ultrasound guidance. Arterial blood flow was seen to pulsate in the flash chamber. The internal guidewire was advanced easily into the radial artery. The catheter was then advanced over the wire and the needle and wire were withdrawn. The catheter was sutured into place with 1 sutures. A sterile Biopatch and Tegaderm was placed over the catheter at the insertion site. The patient tolerated the procedure without any hemodynamic compromise. At the time of procedure completion, the catheter was connected to the monitoring coordinator and calibrated. Appropriate waveform and blood pressure tracing was observed. Estimated blood loss is less than 5 mL. CPT: 01722 Arterial line insertion CPT: 74857 US add-on NEHEMIAS JAVIER MD Feb 04, 2025 21:03
--- NOTE | 2025-02-04 21:04 | DVHPN2 ---
Subjective DOS: 02/04/2025 [facility] Patient seen and examined at bedside. Intubated on mechanical ventilator. Overnight events reviewed. HPI: A 24-year-old man with past medical history of asthma and gallstone pancreatitis who underwent laparoscopic cholecystectomy on 01/28/2025 in [facility]. Patient was discharged on same day; and as per medical records he developed nausea, vomiting and shortness of breath the night prior to presentation and woke up very weak; noted on AM of presentation with altered level of consciousness. Paramedics were called and patient was found to be in cardiac arrest. CPR was done, ROSC obtained; however patient had fixed and dilated pupils per ER documentation on arrival. CT abdomen/pelvis without contrast in ED revealed a hepatic hematoma measuring 8.6 cm with hemorrhage extending beyond the liver capsule into the right paracolic gutter as well as the pelvis. The patient was emergently taken back to surgery and underwent evacuation of a large hemoperitoneum,. was subsequently admitted to ICU. Pulmonary consultation is requested for evaluation and management of acute hypoxic respiratory failure requiring mechanical ventilator. Past Medical History: Asthma and gallstone pancreatitis Past Surgical History: Laparoscopic cholecystectomy on 01/28/2025 at [facility] Medications: Reviewed. Allergies: No known drug allergies. Family History: No family history of premature CAD. No family history of lung disorders. Social History: Nonsmoker. No alcohol or illicit drug use. Changes from previous H/P or p: No Changes Objective Vitals Vital Signs Date Time Temp Pulse Resp B/P (MAP) Pulse Ox O2 Delivery O2 Flow Rate FiO2 02/04/25 19:56 91 17 125/58 (80) 96 30 02/04/25 18:10 Mechanical Ventilator+ 02/04/25 16:00 97.5 97.5 02/04/25 15:17 15.0 Intake/Output Intake and Output 02/04/25 07:00 Intake Total 1848 ml Output Total 1095 ml Balance 753 ml IV Total 1548 ml Blood Product 300 ml Output Urine Total 875 ml Gastric Drainage Total 125 ml Drainage Total 95 ml Exam Gen.: Patient lying in bed in medical ICU. Sedated, intubated on mechanical ventilator. Head: Normocephalic, atraumatic. Eyes: Pupils fixed and blown Ears: Normal external anatomy. Throat: Endotracheal tube and orogastric tube in place. Neck: Supple, trachea midline. Chest: Transmitted breath sounds bilaterally. Decreased air entry bilaterally. No wheezing. Bibasilar crackles. Cardiovascular: Positive S1, positive S2. Regular rate and rhythm. Abdomen: Positive bowel sounds in all 4 quadrants. Soft, nontender, nondistended. : Green in place. Normal external genitalia. Rectal: Deferred. Skin: Warm, dry. Intact. Extremities: 2+ radial pulses bilaterally. No lower extremity edema. Neuro: No responses to painful stimuli. Medications Current Medications Medications Dose Ordered Sig/Serenity Route Start Time Stop Time Status Last Admin Dose Admin Norepinephrine Bitartrate 250 ml @ 3.75 mls/hr Q24H IV 01/29/25 10:00 02/01/25 17:06 15 MLS/HR Midazolam HCl 50 ml @ 1 mls/hr Q24H IV 01/29/25 14:15 01/29/25 15:56 5 MLS/HR Fentanyl Citrate 250 ml @ 2.5 mls/hr Q24H IV 01/29/25 14:15 Pantoprazole Sodium 40 mg DAILY IV 01/30/25 10:00 02/04/25 09:33 40 MG Phenylephrine HCl 250 ml @ 30 mls/hr Q8H20M IV 01/29/25 19:30 01/30/25 01:39 116.25 MLS/HR Levalbuterol HCl 0.625 mg Q4HR PRN NEB 01/29/25 20:00 02/02/25 06:23 0.625 MG Ipratropium [place] 0.5 mg Q4HPRN PRN NEB 01/29/25 20:00 02/02/25 06:23 0.5 MG Epinephrine HCl 250 ml @ 7.5 mls/hr Q24H IV 01/30/25 00:15 Vasopressin 20 units/Sodium Chloride 100 ml @ 9 mls/hr Q11H7M IV 01/30/25 07:30 02/03/25 13:09 9 MLS/HR Amino Acids 0 ml @ 0 mls/hr PER PHARMACY IV 02/01/25 11:15 Diagnostic Test (Pha) 1 strip Q6HR 02/01/25 18:00 02/04/25 17:47 1 STRIP Insulin Human Regular FOLLOW SLIDING SCALE Q6HR SC 02/01/25 18:00 02/02/25 11:36 2 UNITS Dextrose 50 ml UD IV 02/01/25 12:30 Bumetanide 25 mg/ Miscellaneous 100 ml @ 4 mls/hr Q24H IV 02/01/25 14:00 02/04/25 14:26 4 MLS/HR Albumin Human 100 ml @ 100 mls/hr PRN PRN IV 02/02/25 09:45 02/02/25 13:52 100 MLS/HR Fat Emulsion Intravenous 50 ml/ Calcium Gluconate 7 meq/Magnesium Sulfate 8 meq/ Multivitamins 10 ml/Amino Acids/ Dextrose 1,177.0537 ml @ 49 mls/hr Q24H2M IV 02/03/25 22:00 02/04/25 21:59 02/03/25 22:16 49 MLS/HR Epoetin Gunnar-epbx 4,000 unit MWF@2100 [place] 02/03/25 21:00 02/03/25 22:04 4,000 UNIT Piperacillin Sod/ Tazobactam Sod 100 ml @ 25 mls/hr Q8HR IV 02/03/25 14:00 02/04/25 13:39 25 MLS/HR Vancomycin HCl 0 ml @ 0 mls/hr UD IV 02/04/25 09:00 Fat Emulsion Intravenous 50 ml/ Calcium Gluconate 4.65 meq/ Magnesium Sulfate 8 meq/ Multivitamins 10 ml/Amino Acids/ Dextrose 1,272 ml @ 53 mls/hr Q24H IV 02/04/25 22:00 02/05/25 21:59 Sodium Chloride 10 ml QSHIFT@10,22 IV 02/04/25 22:00 Laboratory Results Laboratory Tests 02/04/25 03:30 Chemistry Test 02/04/25 03:30 Albumin 2.9 g/dL (3.2-4.8) L Calcium Level 8.0 mg/dL (8.7-10.4) L Magnesium Level 2.2 mg/dL (1.6-2.6) Phosphorus Level 3.2 mg/dL (2.4-5.1) Total Protein 5.1 g/dL (5.7-8.2) L LFT Test 02/04/25 03:30 Alanine Aminotransferase (ALT) 444 U/L (7-40) H Alkaline Phosphatase 175 U/L (46-116) H Aspartate Amino Transferase (AST) 456 U/L (13-40) H Total Bilirubin 0.9 mg/dL (0.2-1.0) Urinalysis Test 01/29/25 09:54 01/29/25 14:15 Urine Color Light-orange (Yellow) Urine Clarity Turbid (Clear) H Urine pH 5.5 (5.0-9.0) Urine Specific Buckner 1.017 (1.001-1.035) Urine Protein 2+ (Negative) H Urine Ketones Trace (Negative) Urine Blood 3+ /uL (Negative) H Urine Nitrite Negative (Negative) Urine Bilirubin Negative (Negative) Urine Urobilinogen Normal mg/dL (Negative) Urine Leukocyte Esterase Negative /uL (Negative) Urine RBC 130 /hpf (0 - 3) Urine Microscopic WBC < 1 /HPF (0-3) Urine Squamous Epithelial Cells Mod /hpf (<5) Urine Amorphous Crystals Few /hpf (None Seen) Urine Bacteria Few /hpf (None Seen) H Urine Glucose Trace mg/dL (Normal) Urine Creatinine 19.64 mg/dL (30.0-125.0) L Urine Sodium 98 mmol/L (40-220) Urine Total Protein 245.5 mg/dL (1-14) H Blood Gas Results Test 02/04/25 10:15 02/04/25 13:12 Arterial Blood pH 7.491 (7.350-7.450) 7.467 (7.350-7.450) FiO2 % 30.0 30.0 Microbiology Microbiology Date/Time Source Procedure Growth Status 02/02/25 22:00 Urine - [place] Urine Culture - Preliminary Resulted 02/02/25 19:20 Blood Blood Culture - Preliminary Resulted 01/30/25 00:00 Nose MRSA Screen - Final Complete 01/29/25 10:43 Sputum Gram Stain - Final Complete 01/29/25 10:43 Sputum Respiratory Culture - Final Complete Assessment/Plan Assessment/Plan Impression: Acute hypoxic respiratory failure On mechanical ventilator Status post cardiac arrest Possible anoxic brain injury NSTEMI, possible type 2 Hypovolemic shock Acute kidney injury secondary to hypovolemic shock Obesity, BMI 30.4 Multiorgan failure Events: Remains on vent support AC mode with RR 14, VT 500, PEEP 7, FiO2 30% S/p PICC line exchange Replaced arterial line - see separate procedure note for details. ABG notable for acidemia Continue antibiotics. Monitor cultures Continue Protonix for GI ppx HD per Nephrology - s/p HD yesterday Monitor renal function Monitor electrolytes. Supplement as necessary. Monitor ins and outs. Monitor hemoglobin - currently 8.4 g/dL Transfuse if less than 7.0 g/dL Note, patient with pupils fixed and blown NM brain perfusion study c/w anoxic brain injury Poor chance of meaningful recovery Patient declared brain . Neurology recommendations appreciated. Labs and imaging reviewed. Rest of plan as noted below. Plan: s/p intubation on mechanical ventilator On assist control with respiratory rate of 14, tidal volume 500, PEEP of 7, FiO2 of 30% Titrate FIO2 to keep O2 saturation above 92%. VAP bundle Daily ABG and CXR while intubated. Start pressors if necessary for hemodynamic support. On pressors for hemodynamic support. Titrate to keep MAP above 65 mmHg/SBP above 90 mmHg. Continue antibiotics. F/u cultures. Blood cultures no growth thus far Sputum culture grew normal oropharyngeal slava. Monitor hemoglobin Monitor renal function due to acute kidney injury. Monitor electrolytes. Supplement as necessary. Continue diuresis per Nephrology Monitor ins and outs Hemodialysis per nephrology Nutritional support. Accu-Cheks, ISS. GI/DVT prophylaxis. Condition: Critical Prognosis: Poor given multiple comorbidities. Rest of plan per hospitalist and other consultants. A total of 35 minutes of critical care time was spent reviewing the patient record, examining the patient, making a diagnostic and therapeutic plan, discussing this plan with the medical personnel, following up on diagnostic studies and following the patient for clinical stability excluding any and all procedures. At least 50% of this time was spent in direct, [id number] contact. Thank you for allowing me to participate in this patient's care. Further recommendations will depend on patient's clinical course. Please do not hesitate to contact me if you have any questions or concerns. This medical document was created using an electronic medical record system with Stripe dictation system. Although this document has been carefully reviewed, there may still be some phonetic and typographical errors. These areas are purely typographical due to imperfections of the software programs, and do not reflect any compromise in the patient's medical care. Plan discussed with: Other (MARY ANN Pulliam) My Orders Orders - NEHEMIAS BEASLEY MD Procedure Category Date Status Time Abg W/ Co-Ox RT 02/04/25 Logged 05:19 Date of Service: Feb 04, 2025 Billing Provider: NEHEMIAS BEASLEY MD Common Visit Codes: [id number] INP/OBS CARE(HIGH), [id number] CARE 30-74 MIN Procedure Codes: [id number] LINE ([place] [address]) NEHEMIAS BEASLEY MD Feb 04, 2025 21:04
[2025-02-04] MEDS: TPN PER PHARMACY IV NR (21:59)
[2025-02-04] MEDS: SODIUM CHLOR 0.9% PF (SALINE LOCK) 10ML VIAL/SYR IV SCH (22:00)
[2025-02-05] VITALS (113 sets, daily range): BP systolic 97–200; BP diastolic 42–162; PULSE 85–177; RESP 14–32; TEMP 97.3–98.4; O2SAT 95–100
[2025-02-05 04:13] LABS: Hematocrit 28.8 % (41.0-53.0); Hemoglobin 9.7 g/dL (13.5-17.5); Mean Corpuscular Hemoglobin 29.5 pg (28.0-32.0); Mean Corpuscular Volume 87.5 fL (80.0-100.0)
[2025-02-05 04:21] LABS: Anion Gap 13 (5-15); BUN/Creatinine Ratio 10.7 (10.0-20.0); Carbon Dioxide 29 mmol/L (20-31); Chloride 98 mmol/L (98-107); Glucose 90 mg/dL (74-106); Magnesium 2.5 mg/dL (1.6-2.6); Potassium 4.3 mmol/L (3.5-5.1); Sodium 140 mmol/L (136-145)
[2025-02-05 04:22] LABS: Alanine Aminotransferase 290 U/L (7-40); Albumin 2.9 g/dL (3.2-4.8); Alkaline Phosphatase 160 U/L (46-116); Blood Urea Nitrogen 79 mg/dL (9-23); Calcium 8.4 mg/dL (8.7-10.4); Total Protein 5.2 g/dL (5.7-8.2)
[2025-02-05 04:31] LABS: Bilirubin, Total 0.8 mg/dL (0.2-1.0)
[2025-02-05 04:49] LABS: Total Cells Counted 100.0 (100)
--- NOTE | 2025-02-05 05:18 | DVH ---
CHEST RADIOGRAPH Indication: intubated patient Technique: Single frontal view of the chest was obtained COMPARISON: XY CHEST PORTABLE on DOS: 02/04/25, XY CHEST PORTABLE on DOS: 02/03/25, XY CHEST PORTABLE o n DOS: 02/02/25, XY CHEST PORTABLE on DOS: 02/01/25, XY CHEST PORTABLE on DOS: 02/01/25 FINDINGS: Lines and Tubes: Unchanged. Lungs: Small right pleural effusion. Otherwise clear lungs. No pneumothorax. Cardiomediastinal contours: Unremarkable Bones: Unremarkable IMPRESSION: 1. Small right pleural effusion. 2. Lines and tubes unchanged.
[2025-02-05 06:44] LABS: Base Excess 2.9 mmol/L (-2.0-3.0)
--- NOTE | 2025-02-05 06:48 | DVHPN2 ---
Progress Note Date Seen: Feb 05, 2025 Has the PT tested + for MRSA If YES, has PT been informed?: No Medical Necessity Reason Pt with a Central, PICC or Fol: Yes The following are medically ne: Central Line, Mora Catheter Reason for mora catheter: Nakul. Abd Surgery Subjective Review of Systems Pt's condition unchanged. Per RN 40 mL drain output. Yesterday evening I spent some time with the pt's mother and brother. They still have strong tenriism belief and hope he will recover. They were kindly reminded that medically statistically his meaningful recover is extremely unlikely, medically nil. They understand but believe God will make a miracle. Objective vital signs Vital Sign Date Time Temp Pulse Resp B/P (MAP) Pulse Ox O2 Delivery O2 Flow Rate FiO2 02/05/25 05:56 88 18 143/67 (92) 97 30 02/05/25 04:00 Mechanical Ventilator+ 02/05/25 04:00 97.3 97.3 02/04/25 15:17 15.0 Total Intake and Output 02/04/25 02/04/25 02/05/25 14:59 22:59 06:59 Intake Total 1029 ml 424 ml 499 ml Output Total 595 ml Balance 1029 ml -171 ml 499 ml medications Current Medications Medications Dose Ordered Sig/Serenity Route Start Time Stop Time Status Last Admin Dose Admin Norepinephrine Bitartrate 250 ml @ 3.75 mls/hr Q24H IV 01/29/25 10:00 02/01/25 17:06 15 MLS/HR Midazolam HCl 50 ml @ 1 mls/hr Q24H IV 01/29/25 14:15 01/29/25 15:56 5 MLS/HR Fentanyl Citrate 250 ml @ 2.5 mls/hr Q24H IV 01/29/25 14:15 Pantoprazole Sodium 40 mg DAILY IV 01/30/25 10:00 02/04/25 09:33 40 MG Phenylephrine HCl 250 ml @ 30 mls/hr Q8H20M IV 01/29/25 19:30 01/30/25 01:39 116.25 MLS/HR Levalbuterol HCl 0.625 mg Q4HR PRN NEB 01/29/25 20:00 02/02/25 06:23 0.625 MG Ipratropium [place] 0.5 mg Q4HPRN PRN NEB 01/29/25 20:00 02/02/25 06:23 0.5 MG Epinephrine HCl 250 ml @ 7.5 mls/hr Q24H IV 01/30/25 00:15 Vasopressin 20 units/Sodium Chloride 100 ml @ 9 mls/hr Q11H7M IV 01/30/25 07:30 02/03/25 13:09 9 MLS/HR Amino Acids 0 ml @ 0 mls/hr PER PHARMACY IV 02/01/25 11:15 Diagnostic Test (Pha) 1 strip Q6HR 02/01/25 18:00 02/05/25 06:26 1 STRIP Insulin Human Regular FOLLOW SLIDING SCALE Q6HR SC 02/01/25 18:00 02/02/25 11:36 2 UNITS Dextrose 50 ml UD IV 02/01/25 12:30 Bumetanide 25 mg/ Miscellaneous 100 ml @ 4 mls/hr Q24H IV 02/01/25 14:00 02/04/25 14:26 4 MLS/HR Albumin Human 100 ml @ 100 mls/hr PRN PRN IV 02/02/25 09:45 02/02/25 13:52 100 MLS/HR Epoetin Gunnar-epbx 4,000 unit MWF@2100 RI 02/03/25 21:00 02/03/25 22:04 4,000 UNIT Piperacillin Sod/ Tazobactam Sod 100 ml @ 25 mls/hr Q8HR IV 02/03/25 14:00 02/05/25 06:26 25 MLS/HR Vancomycin HCl 0 ml @ 0 mls/hr UD IV 02/04/25 09:00 Fat Emulsion Intravenous 50 ml/ Calcium Gluconate 4.65 meq/ Magnesium Sulfate 8 meq/ Multivitamins 10 ml/Amino Acids/ Dextrose 1,272 ml @ 53 mls/hr Q24H IV 02/04/25 22:00 02/05/25 21:59 02/04/25 21:59 53 MLS/HR Sodium Chloride 10 ml QSHIFT@10,22 IV 02/04/25 22:00 02/04/25 22:00 10 ML Examination Neuro. Unchanged. Dilated fixed pupils. No reflexes. CV. Normal HR 80's and normotensive. Hemodynamically stable. LSCV catheter exit sites clean, dry and intact. No erythema Pulmonary: Intubated with mechanical ventilator support 500/14/30%/+7. RR17 to 18 GI: Soft, obese, non distended and non tender. Dressing C/D/I. Drain with thin serosanguineous fluid, slightly more sanguineous today. OGT in place. Bilious fluid within. No BM per RN . Mora catheter in place. Extremities; No edema Resolved facial and neck edema. Orbital edema resolved laboratory and microbiology Laboratory Tests 02/05/25 03:30 Test 02/05/25 03:30 Range/Units Serum Glucose 90 74-106 mg/dL Microbiology Date/Time Source Procedure Growth Status 02/02/25 22:00 Urine - Mor[place] Urine Culture - Preliminary Resulted 02/02/25 19:20 Blood Blood Culture - Preliminary Resulted 01/30/25 00:00 Nose MRSA Screen - Final Complete 01/29/25 10:43 Sputum Gram Stain - Final Complete 01/29/25 10:43 Sputum Respiratory Culture - Final Complete Labs and/or images reviewed: Labs reviewed by me, Image(s) reviewed by me Problem List/Assessment/Plan Problems(with codes): (1) Thrombocytopenia (2) Cerebral edema (3) Tonsillar hernia into foramen magnum (4) Shock liver (5) Ventilator dependent (6) ARF (acute renal failure) Problem List/Assessment/Plan Neuro: Appreciate neurology input and assistance. CT revealed Cerebral edema and tonsillar herniation.EEG no electric activity. Cerebral perfusion study confirmed no perfusion radiographically consistent with brain , and concordant with initial clinical diagnosis and EEG. Based on above adjunct and clinical assessment, pt's condition is compatible with brain . Pt has been identified as organ donor. Awaiting family to grieve and process. [employer] claims representative has scheduled meeting tomorrow with pt's daughter to address process and any questions she may have. CV: Hemodynamic instability secondary to hemorrhagic shock. Resolved. Vasopressors on hold. Elevated troponin, likely secondary and/or worsened by hemodynamic stress and CPR. Can't rule out ischemia. Cardiology assistance appreciated. Mechanical DVT prophylaxis. Pulmonary: VDRF. Continue ventilator. Appreciate pulmonary medicine assistance. CXR R pleural effusion. Pending ABG results GI: NPO. Continue TPN. Continue GI prophylaxis. Hepatic shock, continues improving. Improving transaminases. Appreciate GI assistance. . ARF secondary to hemorrhagic shock. Strict I&O. Mora to gravity. Appreciate nephrology assistance. Replace/correct electrolytes. HD Bumex gtt and IVFs per nephrology. Heme/ID. Hemorrhagic shock resolved. Hgb 9.7. Drain with slightly more sanguineous appearance.Thrombocytopenia, possible consumptive and compounded with hepatic shock, lack of thrombopoietin. Plts improving >70. Attempting to decrease blood draw frequency to avoid worsening iatrogenic induced anemia. Will reserve blood draws for daily and only if clinically indicated at any given moment. Repeat labs AM. Appreciate hematology assistance. Leukocytosis, improving. Repeat set of Bld Cx GPC clusters, pending ID. Vancomycin renal dose and Zosyn.High Vanco trough. Will need to be held. Endocrine: Tight glycemic control. Skin: Skin care and pressure ulcer precautions. Plan discussed with: Other (RN) My Orders My Orders Orders - JITENDRA ZAMORA MD Procedure Category Date Status Time Amino Acid PHA 02/04/25 In Process Infusion... W/Fat 22:00 Tpn Per Pharmacy YANET 02/04/25 In Process 22:00 Ventilator Orders RT 02/04/25 Transmitted 10:54 Abg W/ Co-Ox RT 02/04/25 Logged 11:59 Us Guided Vascular US 02/04/25 Logged Access 12:50 Nursing Protocol Picc YANET 02/04/25 In Process 12:50 PICC BD 02/04/25 Transmitted 12:50 Sodium Chloride Lock PHA 02/04/25 In Process (Saline Lock Ns) 22:00 Do Not Use Picc For [facility] 02/04/25 In Process Blood Cult 12:50 May Draw Blood From [facility] 02/04/25 In Process Picc 12:50 Ok To Use Picc [facility] 02/04/25 In Process 12:50 Change Picc Dressing [facility] 02/04/25 In Process Q7 Days 12:50 Chest Portable XY 02/05/25 Resulted 04:00 Abg W/ Co-Ox RT 02/05/25 Logged 05:38 Complete Blood Count LAB 02/06/25 Verified 04:00 Prothrombin Time W/ LAB 02/06/25 Verified INR 04:00 Partial LAB 02/06/25 Verified Thromboplastin Time 04:00 Comprehensive LAB 02/06/25 Verified Metabolic Panel 04:00 Dietary Evaluation Review Recommendations by RD: PPN/TPN Comments: 1) Increase TPN rate to meet at least 75% of estimated daily needs 2) Advance to renal cardiac diet when medically feasible, pending ST approval 3) Follow-up with cardiology, pulmonology, nephrology, neurology, and gastroenterology 4) Continue to monitor I&O, labs, and skin integrity Expected Outcomes/Goals: 1) nutritional support to meet at least 75% of estimated daily needs 2) labs and wound to improve 3) diet to advance 4) gradual wt loss 5) f/u in 2-3 days JITENDRA ZAMORA MD Feb 05, 2025 06:48
--- NOTE | 2025-02-05 07:29 | DVHPN2 ---
Progress Note - Dictate Date Seen: Feb 05, 2025 Has the PT tested + for MRSA If YES, has PT been informed?: No Medical Necessity Reason Pt with a Central, PICC or Fol: Yes The following are medically ne: Central Line, Mora Catheter Reason for mora catheter: Nakul. Abd Surgery vital signs Vital Sign Date Time Temp Pulse Resp B/P (MAP) Pulse Ox O2 Delivery O2 Flow Rate FiO2 02/05/25 06:45 88 17 133/64 (87) 97 02/05/25 06:00 Mechanical Ventilator+ 30 30 02/05/25 04:00 97.3 97.3 02/04/25 15:17 15.0 Total Intake and Output 02/04/25 02/04/25 02/05/25 15:00 23:00 07:00 Intake Total 929 ml 453 ml 474 ml Output Total 595 ml 665 ml Balance 929 ml -142 ml -191 ml medications Current Medications Medications Dose Ordered Sig/Serenity Route Start Time Stop Time Status Last Admin Dose Admin Norepinephrine Bitartrate 250 ml @ 3.75 mls/hr Q24H IV 01/29/25 10:00 02/01/25 17:06 15 MLS/HR Midazolam HCl 50 ml @ 1 mls/hr Q24H IV 01/29/25 14:15 01/29/25 15:56 5 MLS/HR Fentanyl Citrate 250 ml @ 2.5 mls/hr Q24H IV 01/29/25 14:15 Pantoprazole Sodium 40 mg DAILY IV 01/30/25 10:00 02/04/25 09:33 40 MG Phenylephrine HCl 250 ml @ 30 mls/hr Q8H20M IV 01/29/25 19:30 01/30/25 01:39 116.25 MLS/HR Levalbuterol HCl 0.625 mg Q4HR PRN NEB 01/29/25 20:00 02/02/25 06:23 0.625 MG Ipratropium Hamilton 0.5 mg Q4HPRN PRN NEB 01/29/25 20:00 02/02/25 06:23 0.5 MG Epinephrine HCl 250 ml @ 7.5 mls/hr Q24H IV 01/30/25 00:15 Vasopressin 20 units/Sodium Chloride 100 ml @ 9 mls/hr Q11H7M IV 01/30/25 07:30 02/03/25 13:09 9 MLS/HR Amino Acids 0 ml @ 0 mls/hr PER PHARMACY IV 02/01/25 11:15 Diagnostic Test (Pha) 1 strip Q6HR 02/01/25 18:00 02/05/25 06:26 1 STRIP Insulin Human Regular FOLLOW SLIDING SCALE Q6HR SC 02/01/25 18:00 02/02/25 11:36 2 UNITS Dextrose 50 ml UD IV 02/01/25 12:30 Bumetanide 25 mg/ Miscellaneous 100 ml @ 4 mls/hr Q24H IV 02/01/25 14:00 02/04/25 14:26 4 MLS/HR Albumin Human 100 ml @ 100 mls/hr PRN PRN IV 02/02/25 09:45 02/02/25 13:52 100 MLS/HR Epoetin Gunnar-epbx 4,000 unit MWF@2100 MD 02/03/25 21:00 02/03/25 22:04 4,000 UNIT Piperacillin Sod/ Tazobactam Sod 100 ml @ 25 mls/hr Q8HR IV 02/03/25 14:00 02/05/25 06:26 25 MLS/HR Vancomycin HCl 0 ml @ 0 mls/hr UD IV 02/04/25 09:00 Fat Emulsion Intravenous 50 ml/ Calcium Gluconate 4.65 meq/ Magnesium Sulfate 8 meq/ Multivitamins 10 ml/Amino Acids/ Dextrose 1,272 ml @ 53 mls/hr Q24H IV 02/04/25 22:00 02/05/25 21:59 02/04/25 21:59 53 MLS/HR Sodium Chloride 10 ml QSHIFT@10,22 IV 02/04/25 22:00 02/04/25 22:00 10 ML laboratory and microbiology Laboratory Tests 02/05/25 03:30 Test 02/05/25 03:30 Range/Units Serum Glucose 90 74-106 mg/dL Assessment/Plan Patient is declared brain by Neurology. Cardiac vidales, will sign off. Please call for follow up if any change in clinical presentation. Still being managed in ICU. Still intubated and on vent support. Still no reflexes. Pupils dilated and fixed Has been evaluated by Neurology: hypoxic/metabolic Encephalopathy Echocardiogram revealed no WMA and also revealed good EF. It also revealed increased Pulmonary Artery Pressure in favor of component of Pulmonary Hypertension. s/p Hemodialysis Received blood and platelet transfusion Brain scan questions brain , needs Neurology follow up Patient is a 24-year-old gentleman who was originally brought to the hospital for post arrest. Patient is seen in postop area. Patient is intubated and on multiple pressor supports. Patient is not source of history. Information was obtained by reviewing the chart, talking to patient's family/mother and communicating with staff and reviewing outside records ([facility]). Patient did have elective outpatient laparoscopic cholecystectomy in [facility] on January 28 2025. As per mother, after going home, patient was feeling very hungry and was eating and drinking a lot. He started feeling abdominal pain with nausea at night and in the morning was short of breath. As per mother: patient has stopped breathing in the morning and family called 911. As per mother, as per guidance of 911, family started CPR until EMS arrived. Patient was intubated and was brought to the hospital by EMS. Since arrival to [facility], patient was seen by surgeon who took the patient to operating room and performed laparotomy (there was hepatic hematoma). Postoperatively, the patient has remained hypotensive. There is signs for multiorgan involvement. Patient was not alert and did not complain of any chest pains. Labs revealed increased troponin. Cardiology is involved for cardiac aspects of care and abnormal troponin. First available EKG reveals sinus tachycardia with no specific ST-T changes. Telemetry had revealed sinus tachycardia throughout the stay. Patient is found to have significant anemia and is receiving blood transfusion at the time of evaluation. It is of note that at the time of evaluation patient does not have any reflexes. Intubated. Mucosa pale. Dilated and fixed pupils, Scattered rhonchi in the lungs. Cardiac: Tachycardic. No murmur. Abdomen is covered by dressing. Extremities do not reveal any edema. Dorsalis pedis is 1+ bilateral. Patient does not respond to any stimuli. Reported past medical history includes asthma and obesity. Reportedly, on January 23, 2025: Patient presented to [facility] for abdominal pain/nausea/vomiting. At that point the problems were ongoing for few weeks. In [facility], CT of the abdomen and MRCP were performed. Patient was seen by GI/surgery. Patient was found to have gallstones. Patient was discharged and later on January 28, 2025 presented back to [facility] for elective laparoscopy cholecystectomy. Patient was discharged home from [facility] after laparoscopic cholecystectomy. As per mother, patient does not have baseline history of any cardiac history. As per mother, patient was using marijuana. Mother denies any previous substance abuse besides marijuana. No specific family history is reported On January 23, 2025, labs in [facility] revealed creatinine of 0.84, hemoglobin of 15.2 and troponin (high sensitive) of <3. At that point EKG was normal WBC: 20.1 - 19.0 - 22.7 - 20.6 - 28.4 - 20.3 - 21.0 - 25.2 - 29.8 - 29.5 - 29.0 - 26.2 - 21.7 - 19.7 - 17.7 Hemoglobin: 8.3 - 6.5 - 12.1 - 11.1 - 12.1 - 9.3 - 9.2 - 9.1 - 8.4 - 9.0 - 9.5 - 8.8 - 8.4 - 8.0 - 9.7 Fibrinogen: 108 - 316 - 537 Creatinine: 4.02 - 3.78 - 3.90 - 3.95 - 4.34 - 5.44 - 6.05 - 6.73 - 7.31 - 7.77 - 6.64 - 7.30 - 4.91 - 5.32 - 7.40 Potassium: 5.6 - 4.6 - 4.8 - 3.9 - 2.9 - 2.9 - 3.6 - 3.8 - 4.9 - 5.4 - 6.0 - 5.1 - 5.3 - 6.1 - 6.0 - 4.6 - 4.4 - 4.3 AST/ALT: 676/700 - 1217/6 - 5436/2521 - -/1995 - 2499/1989 - 0/1821 - 808/995 - 586/735 - 456/444 - 312/290 Lactic acid: 17.9 - 17.2 - 11.4 Troponin (high sensitive): 8683 - 1328 - 7841 - 2957 - 1918 TSH: 11.05 Urine Toxicology: positive for Fentanyl and Benzodiazepine Chest x-ray revealed: Lines and Tubes: Endotracheal tube projects 2.2 cm above the meghan. Right internal jugular central venous catheter tip projects over superior vena cava. Lungs: No focal consolidation. Low lung volumes. Pleura: No effusion. No pneumothorax. Cardiomediastinal contours: Unremarkable Bones: No acute osseous abnormality. IMPRESSION: Lines and tubes as above. Low lung volumes. Repeat chest x-ray revealed: IMPRESSION: Lines and tubes in satisfactory position. Mild increased pulmonary vascular congestion Repeat chest xry revealed: IMPRESSION: Lines and tubes in satisfactory position. Mild increased pulmonary vascular congestion Repeat chest xry revealed: IMPRESSION: 1. Low lung volumes with concomitant crowding of the pulmonary vasculature. 2. No evidence of focal consolidation. 3. Lines and tubes unchanged. Repeat chest xry revealed: IMPRESSION: 1. Slight interval retraction of the endotracheal tube such that the tip now projects approximately 4.7 cm above the level of the meghan. Remaining lines and tubes unchanged. 2. Otherwise no significant change compared to prior exam. Repeat chest xry revealed: IMPRESSION: 1. Slight interval advancement of endotracheal tube such that the tip now projects approximately 1.7 cm above the level of the meghan. Remaining lines and tubes unchanged. 2. Otherwise no significant change compared to prior exam. Repeat chest xry revealed: IMPRESSION: 1. Slight interval retraction of the endotracheal tube such that the tip now projects approximately 3.3 cm above the level of the meghan. Remaining lines and tubes unchanged. 2. No evidence of acute cardiopulmonary process. Repeat chest xry revealed: IMPRESSION: 1. Endotracheal tube in appropriate position. Remaining lines and tubes unchanged. 2. No evidence of acute cardiopulmonary process. Repeat chest xry revealed: IMPRESSION: 1. Small right pleural effusion. 2. Lines and tubes unchanged. Brain scan revealed: FINDINGS: Absence of cerebral blood flow is noted along with no brain parenchymal radiotracer uptake. Increased activity is seen in the central face likely representing vascular shunting consistent with the so-called "hot nose" sign. Findings suggest brain however clinical correlation is necessary. IMPRESSION: Findings described above, which would be consistent with brain in the appropriate clinical setting, however clinical correlation is needed. CT of the chest/abdomen/pelvis revealed: IMPRESSION: 1. Hepatic hematoma measuring up to approximately 8.6 cm in greatest dimension, as described above, with hemorrhage extending beyond the liver capsule and into the right pericolic gutter as well as into the pelvis. No definite active arterial bleeding is seen on this exam, although limited evaluation due to the timing of contrast, as this was not a CTA exam. 2. Postsurgical changes of cholecystectomy. 3. Dilated fluid-filled small bowel loops, may be due to postoperative ileus. No small bowel obstruction. 4. Small volume pneumoperitoneum, likely due to recent surgery. Small volume of gas are seen in the upper ventral abdomen from the recent surgery. 5. Dependent atelectasis in the lower lobes. Otherwise, no acute disease in the chest. 6. Endotracheal tube and enteric tube in place. 7. Atrophic right kidney incidentally noted. 8. Additional findings as described above. Critical findings Critical Result: Acute hepatic hematoma with hemorrhage extending beyond the liver capsule into the adjacent portions of the abdomen and into the pelvis as detailed above. Repeat CT of chest/abdomen/pelvis revealed: There is limited interpretation of the chest, abdomen and pelvis without administration of intravenous contrast. Endotracheal tube tip terminates just at the meghan / left main bronchus. Diffuse bilateral pulmonary airspace consolidation bilaterally significantly increased. Bilateral lower lobe lobar consolidation/ atelectasis, increased from prior. Small bilateral pleural effusions. There is extensive edema/ stranding within the upper anterior chest, neck region/supraclavicular region. There is some hyperdensity within this region which could represent components of hematoma / blood products. Heterogeneous appearance of the thyroid gland. Right IJ catheter terminating at the cavoatrial junction. Adrenal glands unremarkable in shape. Perisplenic hematoma. Interval postsurgical changes in the right upper quadrant of the abdomen. There appears to be surgicel/gaseous collection within the previous hematoma cavity, likely representing surgicel. There is a radiopaque density within the resection cavity as well which measures 6.2 x 4.6 cm.. Postoperative changes of the right anterior abdomen with soft tissue emphysema. Small amount of pneumoperitoneum Surgical drainage catheter terminating in the right upper quadrant of the abdomen Right renal parenchymal atrophy. Left kidney demonstrates perinephric edema / stranding. No left hydronephrosis. Nasogastric tube projects towards the distal stomach. Moderate distention small bowel loops. Rectal catheter. Moderate distention of the large bowel loops. Normal appendix. Abdominal aorta normal in caliber. Small amount of ascites fluid/ mesenteric edema. Bladder decompressed by Mora catheter. Soft tissue edema /anasarca. Mesenteric edema. Small amount of ascites fluid. The osseous structures are stable. IMPRESSION: Limited evaluation without contrast. Interval evacuation of the right upper quadrant hematoma. Surgicel within the resection cavity. No significant interval development of new hematoma. There are 2 radiopaque lap pads within the resection cavity . Findings reviewed with Dr. Ledesma at 11:51 a.m. on 01/30/2025 Perisplenic hematoma, similar to previous examination. Extensive bilateral pulmonary airspace consolidation, significantly increased from previous examination. Small bilateral pleural effusions. Right upper quadrant drainage catheter. Pneumoperitoneum. Soft tissue edema / anasarca. Small amount of ascites fluid/ mesenteric edema. Extensive edema within the anterior chest, neck region. Heterogeneous appearance thyroid gland. Other findings as described. CT of the head revealed: IMPRESSION: 1. No evidence of acute intracranial abnormality. Repeat CT of head revealed: FINDINGS: Cerebellar tonsilar herniation. There is sulcal and ventricular effacement. The basal cisterns are effaced. Loss of mario-white matter differentiation is noted. The skull and visible facial bones are intact. The paranasal sinuses, mastoid air cells and middle ear cavities are well-aerated. The soft tissues of the scalp are unremarkable. IMPRESSION: Diffuse cerebral edema with cerebellar tonsillar herniation. Recommend MRI brain for further evaluation. CT of Neck revealed: IMPRESSION: Limited evaluation without contrast. Extensive soft tissue edema within the neck extending into the anterior / upper chest and anterior mediastinum . Retropharyngeal edema. Heterogeneous appearance of the thyroid gland. Inferior cerebellar tonsillar herniation better seen on the prior CT Renal Ultrasound revealed: IMPRESSION: 1. Right kidney not visible. 2. Left kidney is enlarged. 3. No hydronephrosis. Venous duplex of lower ext revealed: IMPRESSION: NO SONOGRAPHIC EVIDENCE FOR DEEP VENOUS THROMBOSIS IN THE RIGHT LOWER EXTREMITY VEINS. EEG reported: This is a remarkably abnormal EEG, this EEG seen in severe cerebral dysfunction due to metabolic/hypoxic encephalopathy or medication effects, unless this is caused by reversible etiology, this EEG is suggestive of a poor prognosis for meaningful recovery, please correlate clinically. Arrival EKG revealed sinus tachycardia with nonspecific ST-T changes Tele reveals sinus tachycardia Echocardiogram revealed: Technically limited study secondary to poor acoustic windows. Left ventricle: Left ventricle was normal-sized with normal systolic function. LVEF was 55-60%. No gross wall motion abnormality was seen. Right ventricle was mildly dilated with normal systolic function. Left atrium was normal-sized. Right atrium was mildly dilated. Aortic valve: Aortic valve was not well visualized. There was no aortic insufficiency/stenosis. There was no mitral regurgitation. There was trace tricuspid regurgitation. Pulmonary valve was not well visualized. IVC was not visualized. Right ventricular systolic pressure was assessed around 48 mm Hg. There was no pericardial effusion. Patient is a 24-year-old gentleman who presented with post arrest. It seems that the patient had hemorrhagic (intra-abdominal) presentation. Patient did have elective laparoscopic cholecystectomy the day before presentation. On the day of presentation, the patient was taken back to operating room and this time Laparotomy was done for hepatic hematoma. Patient does have multiorgan involvement. Clinically there is no brainstem reflexes. Shock liver/acute renal failure is considered. Troponin has been high. EKG did not reveal any STEMI. Presentation could be high troponin secondary to demand physiology. Patient does not have any risk factors for baseline coronary artery disease. In ideal scenario, ischemic workup/cardiac catheterization could be more revealing. Unfortunately, the patient does have acute renal failure which could be worsened by cardiac catheterization at this point. As there was no higher brain functions the suggestion is to wait and see if patient regains any higher brain function. It is of note that during cardiac catheterization, the patient may need some anticoagulation/antiplatelets. At this point patient is having significant anemia/bleeding and receiving blood transfusion and holding off of scenario forcing Anticoagulation/antiplatelets is advised. I had a long discussion with family members and Mother (repeatedly). Clinically patient has multiorgan failure. Secondary to active bleeding, we will avoid anticoagulation/antiplatelets for now. Being managed in ICU. Was taken to OR repeatedly. Still no reflexes. Echocardiogram revealed no WMA and also revealed good EF. It also revealed increased Pulmonary Artery Pressure in favor of component of Pulmonary Hypertension. Review of Echo images revealed good right ventricular systolic function. Not typical for Pulmonary Emboli. Still, PE cannot be ruled out. If PE is ruled out, then it is possible that patient had Pulmonary Hypertension from before (Baseline history of Asthma may actually reflect it). s/p PRBC transfusion (multiple). Being followed by Surgery, Nephrology, Hematology, Pulmonary, Neurology and GI. . Repeat imaging revealed cerebellar tonsillar herniation. Neurology diagnosed Hypoxic/Metabolic Encephalopathy also. EEG findings question meaningful recovery. Neurology declared patient: brain . s/ p Arrest Intra-abdominal bleeding Hepatic hematoma Multiorgan failure, due to shock Shock liver Lactic Acidosis Acute renal failure Acute respiratory failure, on vent support Status post laparotomy Status post laparoscopic cholecystectomy Abnormal troponin, evaluated to reflect possible demand physiology History of gallstones History of asthma Obesity History of marijuana abuse Consumptive Coagulopathy / DIC Pulmonary Hypertension Cerebellar tonsillar Herniation. Encephalopathy, hypoxic/metabolic Renal failure, started on hemodialysis Brain scan questions brain Cardiac suggestion for management: Manage in ICU Pressure support (patient on Levophed/vasopressor at the time) Follow-up electrolytes and kidney function tests and correct abnormalities Evaluation and management of respiratory failure as per Pulmonary Evaluation and management of Cerebellar tonsillar herniation as per Neurology/surgery V/Q scan could not be completed Patient is declared brain by Neurology. Cardiac vidales, will sign off. Please call for follow up if any change in clinical presentation. Echocardiogram revealed no WMA and also revealed good EF. It also revealed increased Pulmonary Artery Pressure in favor of component of Pulmonary Hypertension. Hematology follow up (to comment on prophylaxis / treatment of Pulmonary Emboli) Surgical follow up Nephrology follow up (started on hemodialysis) and Hematology follow up Secondary to active bleeding, we will avoid anticoagulation/antiplatelets for now Long-term prognosis depends on the above and most importantly regaining of the higher brain function: looks very grim Ischemic workup may be considered only after regaining higher brain function or any special change in clinical presentation Further evaluation and management depends on the above and clinical course A total of 75 minutes was spent reviewing the patient record, examining the patient, making a diagnostic and therapeutic plan, discussing this plan with medical personnel, following up on diagnostic studies and following the patient for clinical stability excluding any and all procedures. At least 50% of this time was spent in direct, [id number] contact. Thank you for allowing me to participate in this patient's care. Further recommendations will depend on patient's clinical course. Please do not hesitate to contact me if you have any questions or concerns. This medical document was created using electronic medical record system with [employer] computerized dictation system. Although this document has been carefully reviewed, there may still be some phonetic and typographical errors. These areas are purely typographical due to the imperfection of the software programs, and do not reflect any compromise in the patient's medical care. Dietary Evaluation Review Recommendations by RD: PPN/TPN Comments: 1) Increase TPN rate to meet at least 75% of estimated daily needs 2) Advance to renal cardiac diet when medically feasible, pending ST approval 3) Follow-up with cardiology, pulmonology, nephrology, neurology, and gastroenterology 4) Continue to monitor I&O, labs, and skin integrity Expected Outcomes/Goals: 1) nutritional support to meet at least 75% of estimated daily needs 2) labs and wound to improve 3) diet to advance 4) gradual wt loss 5) f/u in 2-3 days Plan discussed with: Other (nurse) KATHLEEN COHEN MD Feb 05, 2025 07:29
--- NOTE | 2025-02-05 10:36 | DVHPN2 ---
Progress Note - Dictate Date Seen: Feb 05, 2025 Has the PT tested + for MRSA If YES, has PT been informed?: No Medical Necessity Reason Pt with a Central, PICC or Fol: Yes The following are medically ne: Central Line, Mora Catheter Reason for mora catheter: Nakul. Abd Surgery Subjective Mr. Gillis is a 24 years old gentleman with a history of asthma, gallstone, obesity, the patient was brought to the [facility] on 01/29/2025 with a chief complaint of witnessed cardiopulmonary arrest. I have seen and examined the patient, I have discussed with his nurse, I have discussed with his nurse and family. He is intubated, nonresponsive to strong painful stimuli, pupils are fixed, no corneal reflexes, no doll's eye, no gag reflexes He is going through hemodialysis UDS, 01/29/2025 1616: Fentanyl, benzo Urinalysis, 01/29/2025: WBC: 1, urine leukocyte esterase: Negative ABG, 01/29/2025: Metabolic acidosis, 01/30/25: Metabolic acidosis WBC/HB/PLT/MCV, 01/29/2025: 20.1/8.3/234/107.4. 01/30/2025: 28.4/12.1/127/91.2 PT/INR/PTT, 01/29/2025: 19.6/1.98/53.8. 01/30/2025: 13.6/1.32/28.7 Na 01/29/2025: 146, 152, 01/30/2025: 147 BUN/CR, 01/30/2025: 29/4.34 Lactic acid, 01/29/2025: 1749, 01/30/2025: 11.4 Troponin one high sensitivity, 01/29/2025: 2273, 4364, 7474 TBI/AST/ALT/AP, 01/29/2025: 1.3/676/700/136. /: 2.10/4635/2521/137 EEG, 02/01/2025: This is a remarkably abnormal EEG, this EEG seen in severe cerebral dysfunction due to metabolic/hypoxic encephalopathy or medication effects, unless this is caused by reversible etiology, this EEG is suggestive of a poor prognosis for meaningful recovery, please correlate clinically. CT head, 01/29/2025:No evidence of acute intracranial abnormality (I see signs suggestive of diffuse brain edema) CT head 01/30/2025: Diffuse cerebral edema with cerebellar tonsillar herniation. Recommend MRI brain for further evaluation. Critical Result: above finding CT abdomen, pelvis, 01/29/2025: 1. Hepatic hematoma measuring up to approximately 8.6 cm in greatest dimension, as described above, with hemorrhage extending beyond the liver capsule and into the right pericolic gutter as well as into the pelvis. No definite active arterial bleeding is seen on this exam, although limited evaluation due to the timing of contrast, as this was not a CTA exam. 2. Postsurgical changes of cholecystectomy. 3. Dilated fluid-filled small bowel loops, may be due to postoperative ileus. No small bowel obstruction. 4. Small volume pneumoperitoneum, likely due to recent surgery. Small volume of gas are seen in the upper ventral abdomen from the recent surgery. 5. Dependent atelectasis in the lower lobes. Otherwise, no acute disease in the chest. 6. Endotracheal tube and enteric tube in place. 7. Atrophic right kidney incidentally noted. 8. Additional findings as described above Brain imaging flow, 02/03/2025: Findings described above, which would be consistent with brain in the appropriate clinical setting, however clinical correlation is needed. vital signs Vital Sign Date Time Temp Pulse Resp B/P (MAP) Pulse Ox O2 Delivery O2 Flow Rate FiO2 02/05/25 10:00 90 02/05/25 10:00 30 02/05/25 09:40 18 165/89 (114) 99 02/05/25 06:00 Mechanical Ventilator+ 02/05/25 04:00 97.3 97.3 02/04/25 15:17 15.0 Total Intake and Output 02/04/25 02/04/25 02/05/25 15:00 23:00 07:00 Intake Total 929 ml 453 ml 474 ml Output Total 595 ml 665 ml Balance 929 ml -142 ml -191 ml medications Current Medications Medications Dose Ordered Sig/Serenity Route Start Time Stop Time Status Last Admin Dose Admin Norepinephrine Bitartrate 250 ml @ 3.75 mls/hr Q24H IV 01/29/25 10:00 02/01/25 17:06 15 MLS/HR Midazolam HCl 50 ml @ 1 mls/hr Q24H IV 01/29/25 14:15 01/29/25 15:56 5 MLS/HR Fentanyl Citrate 250 ml @ 2.5 mls/hr Q24H IV 01/29/25 14:15 Pantoprazole Sodium 40 mg DAILY IV 01/30/25 10:00 02/04/25 09:33 40 MG Phenylephrine HCl 250 ml @ 30 mls/hr Q8H20M IV 01/29/25 19:30 01/30/25 01:39 116.25 MLS/HR Levalbuterol HCl 0.625 mg Q4HR PRN NEB 01/29/25 20:00 02/02/25 06:23 0.625 MG Ipratropium [place] 0.5 mg Q4HPRN PRN NEB 01/29/25 20:00 02/02/25 06:23 0.5 MG Epinephrine HCl 250 ml @ 7.5 mls/hr Q24H IV 01/30/25 00:15 Vasopressin 20 units/Sodium Chloride 100 ml @ 9 mls/hr Q11H7M IV 01/30/25 07:30 02/03/25 13:09 9 MLS/HR Amino Acids 0 ml @ 0 mls/hr PER PHARMACY IV 02/01/25 11:15 Diagnostic Test (Pha) 1 strip Q6HR 02/01/25 18:00 02/05/25 06:26 1 STRIP Insulin Human Regular FOLLOW SLIDING SCALE Q6HR MS 02/01/25 18:00 02/02/25 11:36 2 UNITS Dextrose 50 ml UD IV 02/01/25 12:30 Bumetanide 25 mg/ Miscellaneous 100 ml @ 4 mls/hr Q24H IV 02/01/25 14:00 02/04/25 14:26 4 MLS/HR Albumin Human 100 ml @ 100 mls/hr PRN PRN IV 02/02/25 09:45 02/02/25 13:52 100 MLS/HR Epoetin Gunnar-epbx 4,000 unit MWF@2100 MS 02/03/25 21:00 02/03/25 22:04 4,000 UNIT Piperacillin Sod/ Tazobactam Sod 100 ml @ 25 mls/hr Q8HR IV 02/03/25 14:00 02/05/25 06:26 25 MLS/HR Vancomycin HCl 0 ml @ 0 mls/hr UD IV 02/04/25 09:00 Fat Emulsion Intravenous 50 ml/ Calcium Gluconate 4.65 meq/ Magnesium Sulfate 8 meq/ Multivitamins 10 ml/Amino Acids/ Dextrose 1,272 ml @ 53 mls/hr Q24H IV 02/04/25 22:00 02/05/25 21:59 02/04/25 21:59 53 MLS/HR Sodium Chloride 10 ml QSHIFT@10,22 IV 02/04/25 22:00 02/04/25 22:00 10 ML Fat Emulsion Intravenous 50 ml/ Calcium Gluconate 4.65 meq/ Magnesium Sulfate 8 meq/ Multivitamins 10 ml/Chromium/ Copper/Manganese/ Zinc 1 ml/Amino Acids/Dextrose 1,323 ml @ 56 mls/hr [id number] IV 02/05/25 22:00 02/06/25 21:59 objective The patient is well-nourished and well-developed with no distress, he has jaundice. The patient is intubated MENTAL STATUS: Subjective CRANIAL NERVES: Pupils are equal, round, dilated and fixed. There are no corneal reflexes, no doll's eyes phenomenon. No signs of facial weakness. There are no gagging or coughing reflexes SENSATION: No responses to pain stimuli. MOTOR: Normal tone in the upper and lower extremity. Normal muscle bulk. No fasciculations. No spontaneous movement. REFLEXES: Deep tendon reflexes are symmetrical. No pathological reflexes. CEREBELLAR/COORDINATION: Deferred GAIT/STATION: deferred. laboratory and microbiology Laboratory Tests 02/05/25 03:30 Test 02/05/25 03:30 Range/Units Serum Glucose 90 74-106 mg/dL Problem List Cardiopulmonary arrest Status post CPR Coma Hypoxic encephalopathy Metabolic encephalopathy Diffuse brain edema Brain herniation Hepatic hematoma Sepsis Septic shock Hypovolemic shock Liver failure Acute kidney failure Anemia Brain Assessment/Plan Monitoring Supportive treatment Follow-up labs ICU care Respiratory support/vent management Stabilize vitals/pressor drip Oxygen IV antibiotics GI prophylaxis Surgery on case Infectious disease on case Cardiology on case Nephrology on case Pulmonolog on case More recommendation per clinical course This medical document was created using an electronic medical record system with Dashbook dictation system. Although this document has been carefully reviewed, there may still be some phonetic and typographical errors. These areas are purely typographical due to imperfections of the software programs, and do not reflect any compromise in the patient's medical care. More recommendation per clinical course Prognosis guarded Dietary Evaluation Review Recommendations by RD: PPN/TPN Comments: 1) Increase TPN rate to meet at least 75% of estimated daily needs 2) Advance to renal cardiac diet when medically feasible, pending ST approval 3) Follow-up with cardiology, pulmonology, nephrology, neurology, and gastroenterology 4) Continue to monitor I&O, labs, and skin integrity Expected Outcomes/Goals: 1) nutritional support to meet at least 75% of estimated daily needs 2) labs and wound to improve 3) diet to advance 4) gradual wt loss 5) f/u in 2-3 days Plan discussed with: Other ALONZO MILLARD MD Feb 05, 2025 10:36
--- NOTE | 2025-02-05 14:47 | DVHPN2 ---
Progress Note Date Seen: Feb 05, 2025 Has the PT tested + for MRSA If YES, has PT been informed?: No Medical Necessity Reason Pt with a Central, PICC or Fol: Yes The following are medically ne: Central Line, Mora Catheter Reason for mora catheter: Nakul. Abd Surgery Subjective Changes from previous H/P or p: No Changes Review of Systems: Deferred Objective vital signs Vital Sign Date Time Temp Pulse Resp B/P (MAP) Pulse Ox O2 Delivery O2 Flow Rate FiO2 02/05/25 13:35 89 16 130/64 (86) 96 30 02/05/25 08:00 98.2 98.2 02/05/25 08:00 Mechanical Ventilator+ 02/04/25 15:17 15.0 Total Intake and Output 02/04/25 02/04/25 02/05/25 15:00 23:00 07:00 Intake Total 929 ml 453 ml 474 ml Output Total 595 ml 665 ml Balance 929 ml -142 ml -191 ml medications Current Medications Medications Dose Ordered Sig/Serenity Route Start Time Stop Time Status Last Admin Dose Admin Norepinephrine Bitartrate 250 ml @ 3.75 mls/hr Q24H IV 01/29/25 10:00 02/01/25 17:06 15 MLS/HR Midazolam HCl 50 ml @ 1 mls/hr Q24H IV 01/29/25 14:15 01/29/25 15:56 5 MLS/HR Fentanyl Citrate 250 ml @ 2.5 mls/hr Q24H IV 01/29/25 14:15 Pantoprazole Sodium 40 mg DAILY IV 01/30/25 10:00 02/05/25 11:17 40 MG Phenylephrine HCl 250 ml @ 30 mls/hr Q8H20M IV 01/29/25 19:30 01/30/25 01:39 116.25 MLS/HR Levalbuterol HCl 0.625 mg Q4HR PRN NEB 01/29/25 20:00 02/02/25 06:23 0.625 MG Ipratropium [place] 0.5 mg Q4HPRN PRN NEB 01/29/25 20:00 02/02/25 06:23 0.5 MG Epinephrine HCl 250 ml @ 7.5 mls/hr Q24H IV 01/30/25 00:15 Vasopressin 20 units/Sodium Chloride 100 ml @ 9 mls/hr Q11H7M IV 01/30/25 07:30 02/03/25 13:09 9 MLS/HR Amino Acids 0 ml @ 0 mls/hr PER PHARMACY IV 02/01/25 11:15 Diagnostic Test (Pha) 1 strip Q6HR 02/01/25 18:00 02/05/25 11:47 1 STRIP Insulin Human Regular FOLLOW SLIDING SCALE Q6HR SC 02/01/25 18:00 02/02/25 11:36 2 UNITS Dextrose 50 ml UD IV 02/01/25 12:30 Bumetanide 25 mg/ Miscellaneous 100 ml @ 4 mls/hr Q24H IV 02/01/25 14:00 02/05/25 11:08 4 MLS/HR Albumin Human 100 ml @ 100 mls/hr PRN PRN IV 02/02/25 09:45 02/05/25 11:13 100 MLS/HR Epoetin Gunnar-epbx 4,000 unit MWF@2100 [place] 02/03/25 21:00 02/03/25 22:04 4,000 UNIT Piperacillin Sod/ Tazobactam Sod 100 ml @ 25 mls/hr Q8HR IV 02/03/25 14:00 02/05/25 14:30 25 MLS/HR Vancomycin HCl 0 ml @ 0 mls/hr UD IV 02/04/25 09:00 Fat Emulsion Intravenous 50 ml/ Calcium Gluconate 4.65 meq/ Magnesium Sulfate 8 meq/ Multivitamins 10 ml/Amino Acids/ Dextrose 1,272 ml @ 53 mls/hr Q24H IV 02/04/25 22:00 02/05/25 21:59 02/04/25 21:59 53 MLS/HR Sodium Chloride 10 ml QSHIFT@10,22 IV 02/04/25 22:00 02/05/25 11:17 10 ML Fat Emulsion Intravenous 50 ml/ Calcium Gluconate 4.65 meq/ Multivitamins 10 ml/Chromium/ Copper/Manganese/ Zinc 1 ml/Amino Acids/Dextrose 1,271 ml @ 53 mls/hr [id number] IV 02/05/25 22:00 02/06/25 21:59 Examination: GENERAL:Abnormal, LUNGS:Abnormal, CVS:Abnormal, ABDOMEN:Abnormal, SKIN:Abnormal, NEURO:Abnormal laboratory and microbiology Laboratory Tests 02/05/25 03:30 Test 02/05/25 03:30 Range/Units Serum Glucose 90 74-106 mg/dL Microbiology Date/Time Source Procedure Growth Status 02/02/25 22:00 Urine - [place] Urine Culture - Final Complete 02/02/25 19:20 Blood Blood Culture - Final Staphylococcus epidermidis Complete 01/30/25 00:00 Nose MRSA Screen - Final Complete 01/29/25 10:43 Sputum Gram Stain - Final Complete 01/29/25 10:43 Sputum Respiratory Culture - Final Complete Problem List/Assessment/Plan Problem List/Assessment/Plan Acute kidney injury likely ischemic ATN in the setting of shock, FeNa > 2%, nonoliguric Acute respiratory failure, intubated on ventilator Status post cardiac arrest Anoxic encephalopathy//brain herniation--> brain Hyperkalemia secondary to above Metabolic acidosis anion gap secondary to lactic acidosis secondary to reduced perfusion from hemorrhage Hemodynamic shock from bleeding Acute blood loss anemia/post op Status post laparoscopic cholecystectomy on 01/28/25 [facility] Status post ex lap, 01/29 Positive troponins NSTEMI--likely demand ischemia Shock liver HD for metabolic clearance today, dialysis will not change patient overall prognosis brain perfusion study consistent with brain surgery recs noted will monitor fluid balance YARY for anemia grim overall prognosis, medical decisions and end of life care to be considered Plan discussed with: Other (nurse) Dietary Evaluation Review Recommendations by RD: PPN/TPN Comments: 1) Increase TPN rate to meet at least 75% of estimated daily needs 2) Advance to renal cardiac diet when medically feasible, pending ST approval 3) Follow-up with cardiology, pulmonology, nephrology, neurology, and gastroenterology 4) Continue to monitor I&O, labs, and skin integrity Expected Outcomes/Goals: 1) nutritional support to meet at least 75% of estimated daily needs 2) labs and wound to improve 3) diet to advance 4) gradual wt loss 5) f/u in 2-3 days Critical Care Time (mins): 33 SABINE ALLEN MD Feb 05, 2025 14:47
--- NOTE | 2025-02-05 17:41 | DVHPN2 ---
Progress Note Date Seen: Feb 05, 2025 Has the PT tested + for MRSA If YES, has PT been informed?: No Medical Necessity Reason Pt with a Central, PICC or Fol: Yes The following are medically ne: Central Line, Mora Catheter Reason for mora catheter: Nakul. Abd Surgery Subjective Review of Systems Pt seen earlier today. Per RN 80 mL from drain. Had HD today.No heparin during HD. Otherwise unchanged. RN notified me that pt has has RR above set rate on ventilator. Conversation held with [facility] representative phlebotomy services. Organ donation processes will be held as he seems to be demonstrating brain stem function. Will request neurology follow up evaluation. Pt's family also requested a second opinion from neurologist. site manager arranged tele-neurologist, which just stated he cannot do brain assessment via telemedicine. I spoke to Dr. Meneses to see if he could assist with the assessment and address any questions the family may have. He will try to come tomorrow. Family still hanging on to shinto beliefs and nicko and still believe he will recover. They are still aware that brain stem function does not necessarily mean he will have meaningful recovery. Objective vital signs Vital Sign Date Time Temp Pulse Resp B/P (MAP) Pulse Ox O2 Delivery O2 Flow Rate FiO2 02/05/25 15:34 89 17 117/51 (73) 97 30 02/05/25 08:00 98.2 98.2 02/05/25 08:00 Mechanical Ventilator+ 02/04/25 15:17 15.0 Total Intake and Output 02/04/25 02/04/25 02/05/25 15:00 23:00 07:00 Intake Total 929 ml 453 ml 474 ml Output Total 595 ml 665 ml Balance 929 ml -142 ml -191 ml medications Current Medications Medications Dose Ordered Sig/Serenity Route Start Time Stop Time Status Last Admin Dose Admin Norepinephrine Bitartrate 250 ml @ 3.75 mls/hr Q24H IV 01/29/25 10:00 02/01/25 17:06 15 MLS/HR Midazolam HCl 50 ml @ 1 mls/hr Q24H IV 01/29/25 14:15 01/29/25 15:56 5 MLS/HR Fentanyl Citrate 250 ml @ 2.5 mls/hr Q24H IV 01/29/25 14:15 Pantoprazole Sodium 40 mg DAILY IV 01/30/25 10:00 02/05/25 11:17 40 MG Phenylephrine HCl 250 ml @ 30 mls/hr Q8H20M IV 01/29/25 19:30 01/30/25 01:39 116.25 MLS/HR Levalbuterol HCl 0.625 mg Q4HR PRN NEB 01/29/25 20:00 02/02/25 06:23 0.625 MG Ipratropium [place] 0.5 mg Q4HPRN PRN NEB 01/29/25 20:00 02/02/25 06:23 0.5 MG Epinephrine HCl 250 ml @ 7.5 mls/hr Q24H IV 01/30/25 00:15 Vasopressin 20 units/Sodium Chloride 100 ml @ 9 mls/hr Q11H7M IV 01/30/25 07:30 02/03/25 13:09 9 MLS/HR Amino Acids 0 ml @ 0 mls/hr PER PHARMACY IV 02/01/25 11:15 Diagnostic Test (Pha) 1 strip Q6HR 02/01/25 18:00 02/05/25 11:47 1 STRIP Insulin Human Regular FOLLOW SLIDING SCALE Q6HR [place] 02/01/25 18:00 02/02/25 11:36 2 UNITS Dextrose 50 ml UD IV 02/01/25 12:30 Bumetanide 25 mg/ Miscellaneous 100 ml @ 4 mls/hr Q24H IV 02/01/25 14:00 02/05/25 11:08 4 MLS/HR Albumin Human 100 ml @ 100 mls/hr PRN PRN IV 02/02/25 09:45 02/05/25 11:13 100 MLS/HR Epoetin Gunnar-epbx 4,000 unit MWF@2100 [place] 02/03/25 21:00 02/03/25 22:04 4,000 UNIT Piperacillin Sod/ Tazobactam Sod 100 ml @ 25 mls/hr Q8HR IV 02/03/25 14:00 02/05/25 14:30 25 MLS/HR Vancomycin HCl 0 ml @ 0 mls/hr UD IV 02/04/25 09:00 Fat Emulsion Intravenous 50 ml/ Calcium Gluconate 4.65 meq/ Magnesium Sulfate 8 meq/ Multivitamins 10 ml/Amino Acids/ Dextrose 1,272 ml @ 53 mls/hr Q24H IV 02/04/25 22:00 02/05/25 21:59 02/04/25 21:59 53 MLS/HR Sodium Chloride 10 ml QSHIFT@10,22 IV 02/04/25 22:00 02/05/25 11:17 10 ML Fat Emulsion Intravenous 50 ml/ Calcium Gluconate 4.65 meq/ Multivitamins 10 ml/Chromium/ Copper/Manganese/ Zinc 1 ml/Amino Acids/Dextrose 1,271 ml @ 53 mls/hr [id number] IV 02/05/25 22:00 02/06/25 21:59 Examination Set vent RR 14. Pt RR 17 to 18 at bedside. Drain has more sanguineous appearing fluid. laboratory and microbiology Laboratory Tests 02/05/25 03:30 Test 02/05/25 03:30 Range/Units Serum Glucose 90 74-106 mg/dL Microbiology Date/Time Source Procedure Growth Status 02/02/25 22:00 Urine - [place] Urine Culture - Final Complete 02/02/25 19:20 Blood Blood Culture - Final Staphylococcus epidermidis Complete 01/30/25 00:00 Nose MRSA Screen - Final Complete 01/29/25 10:43 Sputum Gram Stain - Final Complete 01/29/25 10:43 Sputum Respiratory Culture - Final Complete Problem List/Assessment/Plan Problems(with codes): (1) Thrombocytopenia (2) Cerebral edema (3) Tonsillar hernia into foramen magnum (4) Shock liver (5) Ventilator dependent (6) ARF (acute renal failure) Problem List/Assessment/Plan Neuro: Appreciate neurology input and assistance. CT revealed Cerebral edema and tonsillar herniation.EEG no electric activity. Cerebral perfusion study confirmed no perfusion radiographically consistent with brain , concordant with initial clinical diagnosis and EEG. However, pt has demonstrated brain stem function as he is breathing over vent set rate of 14. RR 17 to 18. RN witnessed up to 21. Pt has been identified as organ donor. Awaiting family to grieve and process. [facility] representative phlebotomy services has been informed and process has been placed on hold.Pt family requested second neurology opinion. Pending tomorrow from Dr. Meneses. CV: Hemodynamic instability secondary to hemorrhagic shock. Resolved. Vasopressors on hold. Elevated troponin, likely secondary and/or worsened by hemodynamic stress and CPR. Can't rule out ischemia. Cardiology assistance appreciated. Mechanical DVT prophylaxis. Pulmonary: VDRF. Continue ventilator. Appreciate pulmonary medicine assistance. CXR R pleural effusion. Pending ABG results GI: NPO. Continue TPN. Continue GI prophylaxis. Hepatic shock, continues improving. Improving transaminases. Appreciate GI assistance. . ARF secondary to hemorrhagic shock. Strict I&O. Mora to gravity. Appreciate nephrology assistance. Replace/correct electrolytes. HD Bumex gtt and IVFs per nephrology. Heme/ID. Hemorrhagic shock resolved. Hgb 9.7. Drain increased sanguineous output.Thrombocytopenia, possible consumptive and compounded with hepatic shock, lack of thrombopoietin. Plts improving >70. Attempting to decrease blood draw frequency to avoid worsening iatrogenic induced anemia. Will reserve blood draws for daily and only if clinically indicated at any given moment. Repeat labs AM. Appreciate hematology assistance. Leukocytosis, improving. Repeat set of Bld Cx St[place]h epi, sensitive to Vancomycin renal dose. Continue Zosyn.High Vanco trough. Will need to be held. Endocrine: Tight glycemic control. Skin: Skin care and pressure ulcer precautions. Plan discussed with: Other (RN, Mother, sister, brother and [employer] representative phlebotomy services.) My Orders My Orders Orders - JITENDRA ZAMORA MD Procedure Category Date Status Time Chest Portable XY 02/05/25 Resulted 04:00 Abg W/ Co-Ox RT 02/05/25 Logged 05:38 Complete Blood Count LAB 02/06/25 Verified 04:00 Prothrombin Time W/ LAB 02/06/25 Verified INR 04:00 Partial LAB 02/06/25 Verified Thromboplastin Time 04:00 Comprehensive LAB 02/06/25 Verified Metabolic Panel 04:00 Amino Acid PHA 02/05/25 In Process Infusion... W/Fat 22:00 Magnesium LAB 02/06/25 Verified 04:00 Phosphorus LAB 02/06/25 Verified 04:00 Tpn Per Pharmacy YANET 02/05/25 In Process 22:00 Vancomycin,Random LAB 02/06/25 Verified 04:00 [place] Neuro Consult CONS 02/05/25 Transmitted 15:25 Dietary Evaluation Review Recommendations by RD: PPN/TPN Comments: 1) Increase TPN rate to meet at least 75% of estimated daily needs 2) Advance to renal cardiac diet when medically feasible, pending ST approval 3) Follow-up with cardiology, pulmonology, nephrology, neurology, and gastroenterology 4) Continue to monitor I&O, labs, and skin integrity Expected Outcomes/Goals: 1) nutritional support to meet at least 75% of estimated daily needs 2) labs and wound to improve 3) diet to advance 4) gradual wt loss 5) f/u in 2-3 days JITENDRA ZAMORA MD Feb 05, 2025 17:40
--- NOTE | 2025-02-05 18:46 | DVHPNRES ---
Progress Note Date Seen: Feb 05, 2025 Resident Creating Document: ARNOLD MUHAMMAD DALE Has the PT tested + for MRSA If YES, has PT been informed?: No Medical Necessity Reason Pt with a Central, PICC or Fol: Yes The following are medically ne: Central Line, Mora Catheter Reason for mora catheter: Nakul. Abd Surgery Subjective Review of Systems Patient seen and examined at the bedside. Patient is sedated and on mechanical ventilation Objective vital signs Vital Sign Date Time Temp Pulse Resp B/P (MAP) Pulse Ox O2 Delivery O2 Flow Rate FiO2 02/05/25 18:30 90 18 129/72 (91) 98 30 02/05/25 16:30 98.2 98.2 02/05/25 16:10 Mechanical Ventilator+ 02/04/25 15:17 15.0 Total Intake and Output 02/04/25 02/04/25 02/05/25 15:00 23:00 07:00 Intake Total 929 ml 453 ml 531 ml Output Total 595 ml 665 ml Balance 929 ml -142 ml -134 ml medications Current Medications Medications Dose Ordered Sig/[place] Route Start Time Stop Time Status Last Admin Dose Admin Norepinephrine Bitartrate 250 ml @ 3.75 mls/hr Q24H IV 01/29/25 10:00 02/01/25 17:06 15 MLS/HR Midazolam HCl 50 ml @ 1 mls/hr Q24H IV 01/29/25 14:15 01/29/25 15:56 5 MLS/HR Fentanyl Citrate 250 ml @ 2.5 mls/hr Q24H IV 01/29/25 14:15 Pantoprazole Sodium 40 mg DAILY IV 01/30/25 10:00 02/05/25 11:17 40 MG Phenylephrine HCl 250 ml @ 30 mls/hr Q8H20M IV 01/29/25 19:30 01/30/25 01:39 116.25 MLS/HR Levalbuterol HCl 0.625 mg Q4HR PRN NEB 01/29/25 20:00 02/02/25 06:23 0.625 MG Ipratropium [place] 0.5 mg Q4HPRN PRN NEB 01/29/25 20:00 02/02/25 06:23 0.5 MG Epinephrine HCl 250 ml @ 7.5 mls/hr Q24H IV 01/30/25 00:15 Vasopressin 20 units/Sodium Chloride 100 ml @ 9 mls/hr Q11H7M IV 01/30/25 07:30 02/03/25 13:09 9 MLS/HR Amino Acids 0 ml @ 0 mls/hr PER PHARMACY IV 02/01/25 11:15 Diagnostic Test (Pha) 1 strip Q6HR 02/01/25 18:00 02/05/25 18:07 1 STRIP Insulin Human Regular FOLLOW SLIDING SCALE Q6HR HI 02/01/25 18:00 02/02/25 11:36 2 UNITS Dextrose 50 ml UD IV 02/01/25 12:30 Bumetanide 25 mg/ Miscellaneous 100 ml @ 4 mls/hr Q24H IV 02/01/25 14:00 02/05/25 11:08 4 MLS/HR Albumin Human 100 ml @ 100 mls/hr PRN PRN IV 02/02/25 09:45 02/05/25 11:13 100 MLS/HR Epoetin Gunnar-epbx 4,000 unit MWF@2100 HI 02/03/25 21:00 02/03/25 22:04 4,000 UNIT Piperacillin Sod/ Tazobactam Sod 100 ml @ 25 mls/hr Q8HR IV 02/03/25 14:00 02/05/25 14:30 25 MLS/HR Vancomycin HCl 0 ml @ 0 mls/hr UD IV 02/04/25 09:00 Fat Emulsion Intravenous 50 ml/ Calcium Gluconate 4.65 meq/ Magnesium Sulfate 8 meq/ Multivitamins 10 ml/Amino Acids/ Dextrose 1,272 ml @ 53 mls/hr Q24H IV 02/04/25 22:00 02/05/25 21:59 02/04/25 21:59 53 MLS/HR Sodium Chloride 10 ml QSHIFT@10,22 IV 02/04/25 22:00 02/05/25 11:17 10 ML Fat Emulsion Intravenous 50 ml/ Calcium Gluconate 4.65 meq/ Multivitamins 10 ml/Chromium/ Copper/Manganese/ Zinc 1 ml/Amino Acids/Dextrose 1,271 ml @ 53 mls/hr [id number] IV 02/05/25 22:00 02/06/25 21:59 Examination General: RASS -5, afebrile, mucosae are moist Cardiovascular: Normal S1 and S2. No murmurs, gallops or rubs Respiratory: Mechanically assisted ventilation, equal bilateral airway entree. Clear lung sounds on auscultation Abdomen: Soft, nontender, no organomegaly, with surgical wound on abdomin MSK/skin: Mobilization of limbs cannot be evaluated. Skin is dry and warm. Neurological: Orientation cannot be assessed. Pupils are dilated and nonreactive to light, absent brainstem reflexes laboratory and microbiology Laboratory Tests 02/05/25 03:30 Test 02/05/25 03:30 Range/Units Serum Glucose 90 74-106 mg/dL Microbiology Date/Time Source Procedure Growth Status 02/02/25 22:00 Urine - [place] Urine Culture - Final Complete 02/02/25 19:20 Blood Blood Culture - Final Staphylococcus epidermidis Complete 01/30/25 00:00 Nose MRSA Screen - Final Complete 01/29/25 10:43 Sputum Gram Stain - Final Complete 01/29/25 10:43 Sputum Respiratory Culture - Final Complete Problem List/Assessment/Plan Problem List/Assessment/Plan This is a 24-year-old male with no significant past medical history underwent elective laparoscopic cholecystectomy on 01/28 at [facility] (due to cholelithiasis), on 2nd day postop at home became lethargic and subsequently coded. ROSC was achieved with CPR, abdominal CT scan showed intra-abdominal hematoma, underwent emergent laparotomy and drained about 500-750 thrombosed and dark blood. NEURO: Hypoxic encephalopathy, due to cardiac arrest Possible anoxic brain injury * RASS Score -5 * Head CT from 01/30 shows, Cerebellar tonsilar herniation. There is sulcal and ventricular effacement. The basal cisterns are effaced. Loss of mario-white matter differentiation is noted. * BRNNM-brain imaging, shows absence blood flow, findings suggest brain in the appropriate clinical setting CARDIOVASCULAR: NSTEMI possible type 2 Status post cardiac arrest Distributive shock (vasoplegia)/neurogenic shock/septic shock vasopressin * Cardiology on the board, recommended medical management * Echo from 01/30 shows,Technically limited study secondary to poor acoustic windows, normal LV size and function, 55-60% PULMONARY: Acute hypoxic respiratory failure, likely due to anoxic brain injury Cxr showed bilateral mild pulmonary vascular congestion GASTROINTESTINAL: Acute transaminitis secondary to hypovolemic shock Coagulopathy Hypoalbuminemia Status post laparoscopic cholecystectomy Status post exploratory laparotomy for hemoperitoneum GENITOURINARY: HARLEEN secondary to hypovolemic shock * Nephrology on the board, performed dialysis on 02/03 * IV Bumex drip METABOLIC: Severe anion gap metabolic acidosis due to lactic acidosis Hypernatremia Grade 2 obesity, BMI 35.7 kg per m2 Hypoglycemia HEME: Severe anemia, due to bleeding * Received 3 units of PRBC, 2 units of FFP and 1 unit of cryoprecipitate * Monitor H&H INFECTIOUS DISEASE: Leucocytosis Lactic acidosis * Urine culture, blood culture and respiratory culture shows no growth * On Zosyn DIET: TPN DVT prophylax: Hold GI prophylaxis: Protonix Code status: Full code LINES/DRAINS/ACCESS: ETT: Intubated on 01/29 IV access: Lt IJ placed on 01/29/25 left subclavian Drips: On Levophed Mora catheter: Placed on 01/29 DISPOSITION: ICU status Patient's status discussed with the patient's mother at the bedside. Critical care time spent more than 51 minutes, including patient care, chart review, and updating the family. Excluding any procedures. Case discussed with Dr. Troy Plan discussed with: Patient Dietary Evaluation Review Recommendations by RD: PPN/TPN Comments: 1) Increase TPN rate to meet at least 75% of estimated daily needs 2) Advance to renal cardiac diet when medically feasible, pending ST approval 3) Follow-up with cardiology, pulmonology, nephrology, neurology, and gastroenterology 4) Continue to monitor I&O, labs, and skin integrity Expected Outcomes/Goals: 1) nutritional support to meet at least 75% of estimated daily needs 2) labs and wound to improve 3) diet to advance 4) gradual wt loss 5) f/u in 2-3 days Date of Service: Feb 05, 2025 Billing Provider: JEFFREY TROY MD Common Visit Codes: [id number] CARE 30-74 MIN ARNOLD MUHAMMAD RESDIENT Feb 05, 2025 18:46 JEFFREY TROY MD Feb 06, 2025 11:51
--- NOTE | 2025-02-05 20:29 | BSKYNEURO ---
[place] [facility] Note # Demographics Consult Type: General Neurology Patient Location: Inpatient First Name: Derrek Last Name: Carlin Date of : 2000 Age: 24 Gender: Male Facility: [facility] Time of Initial Page (): 02/05/2025 16:41 First Contact with Site (): 02/05/2025 16:42 Phone Only Consult: I discussed with the team that it would be an incomplete/inaccurate exam to perform it over the tele and that I would be unable to declare brain . Phone Agreement: - phone consult deemed mutually sufficient for patient care # Assessment Impression: - Encephalopathy Differential Diagnosis: - Encephalopathy # Plan Other: - If patient has any neurological deterioration please call me back immediately # Logistics Attestation of consult completion: The patient is located at: [facility]. I performed this phone consultation from my offsite office Total time spent in telemedicine encounter: I spent 20 minutes in reviewing clinical data and/or imaging, obtaining history, communicating with the onsite care team, and in preparation of this report. # Demographics First Name: Derrek Last Name: Carlin Facility: [facility] Electronically signed at 02/05/2025 19:04 () by MD Hawa Garvin VAMSHI KRISHNA SAI III [facility] [place] 2024 20:29
[2025-02-05] MEDS: TPN PER PHARMACY IV NR (21:43)
--- NOTE | 2025-02-05 22:55 | DVHPN2 ---
Subjective DOS: 02/05/2025 [facility] Patient seen and examined at bedside. Intubated on mechanical ventilator. Overnight events reviewed. HPI: A 24-year-old man with past medical history of asthma and gallstone pancreatitis who underwent laparoscopic cholecystectomy on 01/28/2025 in [facility]. Patient was discharged on same day; and as per medical records he developed nausea, vomiting and shortness of breath the night prior to presentation and woke up very weak; noted on AM of presentation with altered level of consciousness. Paramedics were called and patient was found to be in cardiac arrest. CPR was done, ROSC obtained; however patient had fixed and dilated pupils per ER documentation on arrival. CT abdomen/pelvis without contrast in ED revealed a hepatic hematoma measuring 8.6 cm with hemorrhage extending beyond the liver capsule into the right paracolic gutter as well as the pelvis. The patient was emergently taken back to surgery and underwent evacuation of a large hemoperitoneum,. was subsequently admitted to ICU. Pulmonary consultation is requested for evaluation and management of acute hypoxic respiratory failure requiring mechanical ventilator. Past Medical History: Asthma and gallstone pancreatitis Past Surgical History: Laparoscopic cholecystectomy on 01/28/2025 at [facility] Medications: Reviewed. Allergies: No known drug allergies. Family History: No family history of premature CAD. No family history of lung disorders. Social History: Nonsmoker. No alcohol or illicit drug use. Changes from previous H/P or p: No Changes Objective Vitals Vital Signs Date Time Temp Pulse Resp B/P (MAP) Pulse Ox O2 Delivery O2 Flow Rate FiO2 02/05/25 22:34 89 18 108/69 (82) 95 30 02/05/25 18:10 Mechanical Ventilator+ 02/05/25 16:30 98.2 98.2 02/04/25 15:17 15.0 Intake/Output Intake and Output 02/05/25 07:00 Intake Total 1913 ml Output Total 1260 ml Balance 653 ml IV Total 1613 ml Blood Product 300 ml Output Urine Total 1000 ml Gastric Drainage Total 150 ml Drainage Total 110 ml Exam Gen.: Patient lying in bed in medical ICU. Intubated on mechanical ventilator. Head: Normocephalic, atraumatic. Eyes: Pupils fixed and blown Ears: Normal external anatomy. Throat: Endotracheal tube and orogastric tube in place. Neck: Supple, trachea midline. Chest: Transmitted breath sounds bilaterally. Decreased air entry bilaterally. No wheezing. Bibasilar crackles. Cardiovascular: Positive S1, positive S2. Regular rate and rhythm. Abdomen: Positive bowel sounds in all 4 quadrants. Soft, nontender, nondistended. : Green in place. Normal external genitalia. Rectal: Deferred. Skin: Warm, dry. Intact. Extremities: 2+ radial pulses bilaterally. No lower extremity edema. Neuro: No responses to painful stimuli. Medications Current Medications Medications Dose Ordered Sig/[facility] Route Start Time Stop Time Status Last Admin Dose Admin Norepinephrine Bitartrate 250 ml @ 3.75 mls/hr Q24H IV 01/29/25 10:00 02/05/25 08:10 3.75 MLS/HR Midazolam HCl 50 ml @ 1 mls/hr Q24H IV 01/29/25 14:15 01/29/25 15:56 5 MLS/HR Fentanyl Citrate 250 ml @ 2.5 mls/hr Q24H IV 01/29/25 14:15 Pantoprazole Sodium 40 mg DAILY IV 01/30/25 10:00 02/05/25 11:17 40 MG Phenylephrine HCl 250 ml @ 30 mls/hr Q8H20M IV 01/29/25 19:30 01/30/25 01:39 116.25 MLS/HR Levalbuterol HCl 0.625 mg Q4HR PRN NEB 01/29/25 20:00 02/02/25 06:23 0.625 MG Ipratropium [place] 0.5 mg Q4HPRN PRN NEB 01/29/25 20:00 02/02/25 06:23 0.5 MG Epinephrine HCl 250 ml @ 7.5 mls/hr Q24H IV 01/30/25 00:15 Vasopressin 20 units/Sodium Chloride 100 ml @ 9 mls/hr Q11H7M IV 01/30/25 07:30 02/03/25 13:09 9 MLS/HR Amino Acids 0 ml @ 0 mls/hr PER PHARMACY IV 02/01/25 11:15 Diagnostic Test (Pha) 1 strip Q6HR 02/01/25 18:00 02/05/25 18:07 1 STRIP Insulin Human Regular FOLLOW SLIDING SCALE Q6HR SC 02/01/25 18:00 02/02/25 11:36 2 UNITS Dextrose 50 ml UD IV 02/01/25 12:30 Bumetanide 25 mg/ Miscellaneous 100 ml @ 4 mls/hr Q24H IV 02/01/25 14:00 02/05/25 11:08 4 MLS/HR Albumin Human 100 ml @ 100 mls/hr PRN PRN IV 02/02/25 09:45 02/05/25 11:13 100 MLS/HR Epoetin Gunnar-epbx 4,000 unit MWF@2100 SC 02/03/25 21:00 02/05/25 21:42 4,000 UNIT Piperacillin Sod/ Tazobactam Sod 100 ml @ 25 mls/hr Q8HR IV 02/03/25 14:00 02/05/25 21:43 25 MLS/HR Vancomycin HCl 0 ml @ 0 mls/hr UD IV 02/04/25 09:00 Sodium Chloride 10 ml QSHIFT@10,22 IV 02/04/25 22:00 02/05/25 21:43 10 ML Fat Emulsion Intravenous 50 ml/ Calcium Gluconate 4.65 meq/ Multivitamins 10 ml/Chromium/ Copper/Manganese/ Zinc 1 ml/Amino Acids/Dextrose 1,271 ml @ 53 mls/hr [id number] IV 02/05/25 22:00 02/06/25 21:59 02/05/25 21:43 53 MLS/HR Neomycin/ Polymyxin/ Bacitracin 1 applic DAILY TOP 02/06/25 10:00 Laboratory Results Laboratory Tests 02/05/25 03:30 Chemistry Test 02/05/25 03:30 Albumin 2.9 g/dL (3.2-4.8) L Calcium Level 8.4 mg/dL (8.7-10.4) L Magnesium Level 2.5 mg/dL (1.6-2.6) Phosphorus Level 3.4 mg/dL (2.4-5.1) Total Protein 5.2 g/dL (5.7-8.2) L LFT Test 02/05/25 03:30 Alanine Aminotransferase (ALT) 290 U/L (7-40) H Alkaline Phosphatase 160 U/L (46-116) H Aspartate Amino Transferase (AST) 312 U/L (13-40) H Total Bilirubin 0.8 mg/dL (0.2-1.0) Urinalysis Test 01/29/25 09:54 01/29/25 14:15 Urine Color Light-orange (Yellow) Urine Clarity Turbid (Clear) H Urine pH 5.5 (5.0-9.0) Urine Specific [place] 1.017 (1.001-1.035) Urine Protein 2+ (Negative) H Urine Ketones Trace (Negative) Urine Blood 3+ /uL (Negative) H Urine Nitrite Negative (Negative) Urine Bilirubin Negative (Negative) Urine Urobilinogen Normal mg/dL (Negative) Urine Leukocyte Esterase Negative /uL (Negative) Urine RBC 130 /hpf (0 - 3) Urine Microscopic WBC < 1 /HPF (0-3) Urine Squamous Epithelial Cells Mod /hpf (<5) Urine Amorphous Crystals Few /hpf (None Seen) Urine Bacteria Few /hpf (None Seen) H Urine Glucose Trace mg/dL (Normal) Urine Creatinine 19.64 mg/dL (30.0-125.0) L Urine Sodium 98 mmol/L (40-220) Urine Total Protein 245.5 mg/dL (1-14) H Blood Gas Results Test 02/05/25 06:40 Arterial Blood pH 7.462 (7.350-7.450) FiO2 % 30.0 Microbiology Microbiology Date/Time Source Procedure Growth Status 02/02/25 22:00 Urine - [place] Urine Culture - Final Complete 02/02/25 19:20 Blood Blood Culture - Final Staphylococcus epidermidis Complete 01/30/25 00:00 Nose MRSA Screen - Final Complete 01/29/25 10:43 Sputum Gram Stain - Final Complete 01/29/25 10:43 Sputum Respiratory Culture - Final Complete Assessment/Plan Assessment/Plan Impression: Acute hypoxic respiratory failure On mechanical ventilator Status post cardiac arrest Possible anoxic brain injury NSTEMI, possible type 2 Hypovolemic shock Acute kidney injury secondary to hypovolemic shock Obesity, BMI 30.4 Multiorgan failure Events: Remains on vent support AC mode with RR 14, VT 500, PEEP 7, FiO2 30% Patient noted to be overbreathing the vent Absent brainstem reflexes Signs of anoxic brain injury Poor chance of meaningful recovery. Follow up second opinion Neurology consult ABG notable for alkalemia d/t metabolic alkalosis. Continue antibiotics. Monitor cultures Continue bronchodilators Continue Protonix for GI ppx TPN for nutritional support Bumex drip for diuresis Follow up Nephrology recs Monitor renal function Monitor electrolytes. Supplement as necessary. Monitor ins and outs. Monitor hemoglobin - 8.4 g/dL Transfuse if less than 7.0 g/dL Note, patient with pupils fixed and blown NM brain perfusion study c/w anoxic brain injury Poor chance of meaningful recovery Patient declared brain - f/u second-opinion Neurology consult Labs and imaging reviewed. Rest of plan as noted below. Plan: s/p intubation on mechanical ventilator On assist control with respiratory rate of 14, tidal volume 500, PEEP of 7, FiO2 of 30% Titrate FIO2 to keep O2 saturation above 92%. VAP bundle Daily ABG and CXR while intubated. Start pressors if necessary for hemodynamic support. On pressors for hemodynamic support. Titrate to keep MAP above 65 mmHg/SBP above 90 mmHg. Continue antibiotics. F/u cultures. Blood cultures no growth thus far Sputum culture grew normal oropharyngeal slava. Monitor hemoglobin Monitor renal function due to acute kidney injury. Monitor electrolytes. Supplement as necessary. Continue diuresis per Nephrology Monitor ins and outs Hemodialysis per nephrology Nutritional support. Accu-Cheks, ISS. GI/DVT prophylaxis. Condition: Critical Prognosis: Poor given multiple comorbidities. Rest of plan per hospitalist and other consultants. A total of 35 minutes of critical care time was spent reviewing the patient record, examining the patient, making a diagnostic and therapeutic plan, discussing this plan with the medical personnel, following up on diagnostic studies and following the patient for clinical stability excluding any and all procedures. At least 50% of this time was spent in direct, [id number] contact. Thank you for allowing me to participate in this patient's care. Further recommendations will depend on patient's clinical course. Please do not hesitate to contact me if you have any questions or concerns. This medical document was created using an electronic medical record system with [employer] dictation system. Although this document has been carefully reviewed, there may still be some phonetic and typographical errors. These areas are purely typographical due to imperfections of the software programs, and do not reflect any compromise in the patient's medical care. Plan discussed with: Other (MARY ANN Turner) Date of Service: Feb 05, 2025 Billing Provider: NEHEMIAS BEASLEY MD Common Visit Codes: [id number] INP/OBS CARE(HIGH), [id number] CARE 30-74 MIN NEHEMIAS BEASLEY MD Feb 05, 2025 22:55
[2025-02-06] VITALS (110 sets, daily range): BP systolic 83–228; BP diastolic -4–109; PULSE 81–91; RESP 16–20; TEMP 97.2–98.8; O2SAT 95–99
[2025-02-06 04:42] LABS: Hematocrit 28.8 % (41.0-53.0); Hemoglobin 9.6 g/dL (13.5-17.5); Mean Corpuscular Hemoglobin 29.9 pg (28.0-32.0); Mean Corpuscular Volume 89.4 fL (80.0-100.0)
[2025-02-06 04:49] LABS: INR 1.11 (0.9-1.15); Partial Thromboplastin Time 34.5 SEC (24.5-34.5); Prothrombin Time 11.6 sec (9.3-11.8)
[2025-02-06 04:59] LABS: Anion Gap 14 (5-15); BUN/Creatinine Ratio 10.4 (10.0-20.0); Carbon Dioxide 29 mmol/L (20-31); Glucose 98 mg/dL (74-106); Magnesium 2.4 mg/dL (1.6-2.6); Potassium 3.5 mmol/L (3.5-5.1); Sodium 141 mmol/L (136-145)
[2025-02-06 05:00] LABS: Bilirubin, Total 1.1 mg/dL (0.2-1.0)
[2025-02-06 05:02] LABS: Alanine Aminotransferase 163 U/L (7-40); Albumin 3.0 g/dL (3.2-4.8); Alkaline Phosphatase 317 U/L (46-116); Blood Urea Nitrogen 62 mg/dL (9-23); Calcium 8.6 mg/dL (8.7-10.4); Chloride 98 mmol/L (98-107); Total Protein 5.2 g/dL (5.7-8.2)
[2025-02-06 05:44] LABS: Total Cells Counted 100.0 (100)
--- NOTE | 2025-02-06 07:35 | DVHPN2 ---
Progress Note Date Seen: Feb 06, 2025 Has the PT tested + for MRSA If YES, has PT been informed?: No Medical Necessity Reason Pt with a Central, PICC or Fol: Yes The following are medically ne: Central Line, Mora Catheter Reason for mora catheter: Nakul. Abd Surgery Subjective Review of Systems Pt seen earlier. Family is not present. RN giving report. Objective vital signs Vital Sign Date Time Temp Pulse Resp B/P (MAP) Pulse Ox O2 Delivery O2 Flow Rate FiO2 02/06/25 05:50 83 17 126/67 (86) 98 30 02/06/25 04:00 97.7 97.7 02/06/25 04:00 Mechanical Ventilator+ 02/04/25 15:17 15.0 Total Intake and Output 02/05/25 02/05/25 02/06/25 15:00 23:00 07:00 Intake Total 763.25 ml 506 ml 392 ml Output Total 1230 ml 640 ml Balance 763.25 ml -724 ml -248 ml medications Current Medications Medications Dose Ordered Sig/Serenity Route Start Time Stop Time Status Last Admin Dose Admin Norepinephrine Bitartrate 250 ml @ 3.75 mls/hr Q24H IV 01/29/25 10:00 02/05/25 08:10 3.75 MLS/HR Midazolam HCl 50 ml @ 1 mls/hr Q24H IV 01/29/25 14:15 01/29/25 15:56 5 MLS/HR Fentanyl Citrate 250 ml @ 2.5 mls/hr Q24H IV 01/29/25 14:15 Pantoprazole Sodium 40 mg DAILY IV 01/30/25 10:00 02/05/25 11:17 40 MG Phenylephrine HCl 250 ml @ 30 mls/hr Q8H20M IV 01/29/25 19:30 01/30/25 01:39 116.25 MLS/HR Levalbuterol HCl 0.625 mg Q4HR PRN NEB 01/29/25 20:00 02/02/25 06:23 0.625 MG Ipratropium [place] 0.5 mg Q4HPRN PRN NEB 01/29/25 20:00 02/02/25 06:23 0.5 MG Epinephrine HCl 250 ml @ 7.5 mls/hr Q24H IV 01/30/25 00:15 Vasopressin 20 units/Sodium Chloride 100 ml @ 9 mls/hr Q11H7M IV 01/30/25 07:30 02/03/25 13:09 9 MLS/HR Amino Acids 0 ml @ 0 mls/hr PER PHARMACY IV 02/01/25 11:15 Diagnostic Test (Pha) 1 strip Q6HR 02/01/25 18:00 02/06/25 06:08 1 STRIP Insulin Human Regular FOLLOW SLIDING SCALE Q6HR SC 02/01/25 18:00 02/02/25 11:36 2 UNITS Dextrose 50 ml UD IV 02/01/25 12:30 Bumetanide 25 mg/ Miscellaneous 100 ml @ 4 mls/hr Q24H IV 02/01/25 14:00 02/05/25 11:08 4 MLS/HR Albumin Human 100 ml @ 100 mls/hr PRN PRN IV 02/02/25 09:45 02/05/25 11:13 100 MLS/HR Epoetin Gunnar-epbx 4,000 unit MWF@2100 TN 02/03/25 21:00 02/05/25 21:42 4,000 UNIT Piperacillin Sod/ Tazobactam Sod 100 ml @ 25 mls/hr Q8HR IV 02/03/25 14:00 02/06/25 06:08 25 MLS/HR Vancomycin HCl 0 ml @ 0 mls/hr UD IV 02/04/25 09:00 Sodium Chloride 10 ml QSHIFT@10,22 IV 02/04/25 22:00 02/05/25 21:43 10 ML Fat Emulsion Intravenous 50 ml/ Calcium Gluconate 4.65 meq/ Multivitamins 10 ml/Chromium/ Copper/Manganese/ Zinc 1 ml/Amino Acids/Dextrose 1,271 ml @ 53 mls/hr [id number] IV 02/05/25 22:00 02/06/25 21:59 02/05/25 21:43 53 MLS/HR Neomycin/ Polymyxin/ Bacitracin 1 applic DAILY TOP 02/06/25 10:00 Examination Neuro. Unchanged. Dilated fixed pupils. No reflexes. CV. Normal HR 80's and normotensive. Hemodynamically stable. LSCV catheter exit sites clean, dry and intact. No erythema Pulmonary: Intubated with mechanical ventilator support 500/14/30%/+7. RR17 to 18 GI: Soft, obese, non distended and non tender. Dressing C/D/I. Drain with scant sanguineous fluid. Uncertain output. RN not availabel at this moment and can't find drain output record. OGT in place. Bilious fluid within, low output. . Mora catheter in place. Extremities; No edema Resolved facial and neck edema. Orbital edema resolved laboratory and microbiology Laboratory Tests 02/06/25 03:23 Test 02/06/25 03:23 Range/Units Serum Glucose 98 74-106 mg/dL Microbiology Date/Time Source Procedure Growth Status 02/02/25 22:00 Urine - [place] Urine Culture - Final Complete 02/02/25 19:20 Blood Blood Culture - Final Staphylococcus epidermidis Complete 01/30/25 00:00 Nose MRSA Screen - Final Complete 01/29/25 10:43 Sputum Gram Stain - Final Complete 01/29/25 10:43 Sputum Respiratory Culture - Final Complete Labs and/or images reviewed: Labs reviewed by me Problem List/Assessment/Plan Problems(with codes): (1) Cerebral edema (2) Thrombocytopenia (3) Tonsillar hernia into foramen magnum (4) Shock liver (5) Ventilator dependent (6) ARF (acute renal failure) Problem List/Assessment/Plan Neuro: Appreciate neurology input and assistance. CT revealed Cerebral edema and tonsillar herniation.EEG no electric activity. Cerebral perfusion study confirmed no perfusion radiographically consistent with brain , concordant with initial clinical diagnosis and EEG. However, pt has demonstrated brain stem function as he is breathing over vent set rate of 14. RR remains 17 to 18. RR witnessed up to 20s by family. Pt has been identified as organ donor. However, given breathing over vent set RR, he is demonstrating some neurological activity which voids previous brain assessment. [employer] client account representative has been informed and process has been placed on hold.Pt family requested second neurology opinion. Pending for later from Dr. Meneses. CV: Hemodynamic instability secondary to hemorrhagic shock. Resolved. Elevated troponin, likely secondary and/or worsened by hemodynamic stress and CPR. Can't rule out ischemia. Cardiology assistance appreciated. Mechanical DVT prophylaxis. Pulmonary: VDRF. Continue ventilator. Appreciate pulmonary medicine assistance. CXR R pleural effusion. Pending new CXR and ABG results. May need tracheostomy. Pending second neuro evaluation. A discussion will be held with the patient's family afterwards to determine the course of action. GI: NPO. Continue TPN. Continue GI prophylaxis. Hepatic shock, continues improving. Improving transaminases. Appreciate GI assistance. May need PEG/gastrostomy. Pending second neuro evaluation. A discussion will be mari with pt's family afterwards to determine course of action. . ARF secondary to hemorrhagic shock. Strict I&O. Mora to gravity. Appreciate nephrology assistance. Replace/correct electrolytes. HD Bumex gtt and IVFs per nephrology. Heme/ID. Hemorrhagic shock resolved. Drain had increased sanguineous appearing output. Appears to have intermittent bleeding. However, Hgb remains stable. Thrombocytopenia, remains stable. Possible consumptive and compounded with hepatic shock, lack of thrombopoietin. Plts remain>70. Minimizing blood draw frequency to avoid worsening anemia. Will reserve blood draws for daily and only if clinically indicated at any given moment. Repeat labs AM. Appreciate hematology assistance. Leukocytosis continues improving. Repeat set of Bld Cx Staph epi, sensitive to Vancomycin renal dose. Continue Zosyn and Vancomycin. Vancomycin adjustment by pharmacy. Endocrine: Tight glycemic control. Skin: Skin care and pressure ulcer precautions. Will update family later Plan discussed with: Other (N/A) My Orders My Orders Orders - JITENDRA ZAMORA MD Procedure Category Date Status Time Amino Acid PHA 02/05/25 In Process Infusion... W/Fat 22:00 Tpn Per Pharmacy YANET 02/05/25 In Process 22:00 [place] Neuro Consult CONS 02/05/25 Transmitted 15:25 * Neurology Consult CONS 02/05/25 Transmitted 17:32 [id number] PHA 02/06/25 In Process (Triple An 10:00 Abg W/ Co-Ox RT 02/06/25 Logged 05:15 Dietary Evaluation Review Recommendations by RD: PPN/TPN Comments: 1) Increase TPN rate to meet at least 75% of estimated daily needs 2) Advance to renal cardiac diet when medically feasible, pending ST approval 3) Follow-up with cardiology, pulmonology, nephrology, neurology, and gastroenterology 4) Continue to monitor I&O, labs, and skin integrity Expected Outcomes/Goals: 1) nutritional support to meet at least 75% of estimated daily needs 2) labs and wound to improve 3) diet to advance 4) gradual wt loss 5) f/u in 2-3 days JITENDRA ZAMORA MD Feb 06, 2025 07:35
[2025-02-06 07:42] LABS: Base Excess 3.9 mmol/L (-2.0-3.0)
--- NOTE | 2025-02-06 07:58 | DVHPN2 ---
Progress Note - Dictate Date Seen: Feb 06, 2025 Has the PT tested + for MRSA If YES, has PT been informed?: No Medical Necessity Reason Pt with a Central, PICC or Fol: Yes The following are medically ne: Central Line, Mora Catheter Reason for mora catheter: Nakul. Abd Surgery vital signs Vital Sign Date Time Temp Pulse Resp B/P (MAP) Pulse Ox O2 Delivery O2 Flow Rate FiO2 02/06/25 07:15 81 17 165/103 (123) 97 126/68 (87) 02/06/25 06:00 30 02/06/25 06:00 Mechanical Ventilator+ 02/06/25 04:00 97.7 97.7 02/04/25 15:17 15.0 Total Intake and Output 02/05/25 02/05/25 02/06/25 15:00 23:00 07:00 Intake Total 763.25 ml 506 ml 531 ml Output Total 1230 ml 640 ml Balance 763.25 ml -724 ml -109 ml medications Current Medications Medications Dose Ordered Sig/Serenity Route Start Time Stop Time Status Last Admin Dose Admin Norepinephrine Bitartrate 250 ml @ 3.75 mls/hr Q24H IV 01/29/25 10:00 02/05/25 08:10 3.75 MLS/HR Midazolam HCl 50 ml @ 1 mls/hr Q24H IV 01/29/25 14:15 01/29/25 15:56 5 MLS/HR Fentanyl Citrate 250 ml @ 2.5 mls/hr Q24H IV 01/29/25 14:15 Pantoprazole Sodium 40 mg DAILY IV 01/30/25 10:00 02/05/25 11:17 40 MG Phenylephrine HCl 250 ml @ 30 mls/hr Q8H20M IV 01/29/25 19:30 01/30/25 01:39 116.25 MLS/HR Levalbuterol HCl 0.625 mg Q4HR PRN NEB 01/29/25 20:00 02/02/25 06:23 0.625 MG Ipratropium [place] 0.5 mg Q4HPRN PRN NEB 01/29/25 20:00 02/02/25 06:23 0.5 MG Epinephrine HCl 250 ml @ 7.5 mls/hr Q24H IV 01/30/25 00:15 Vasopressin 20 units/Sodium Chloride 100 ml @ 9 mls/hr Q11H7M IV 01/30/25 07:30 02/03/25 13:09 9 MLS/HR Amino Acids 0 ml @ 0 mls/hr PER PHARMACY IV 02/01/25 11:15 Diagnostic Test (Pha) 1 strip Q6HR 02/01/25 18:00 02/06/25 06:08 1 STRIP Insulin Human Regular FOLLOW SLIDING SCALE Q6HR SC 02/01/25 18:00 02/02/25 11:36 2 UNITS Dextrose 50 ml UD IV 02/01/25 12:30 Bumetanide 25 mg/ Miscellaneous 100 ml @ 4 mls/hr Q24H IV 02/01/25 14:00 02/05/25 11:08 4 MLS/HR Albumin Human 100 ml @ 100 mls/hr PRN PRN IV 02/02/25 09:45 02/05/25 11:13 100 MLS/HR Epoetin Gunnar-epbx 4,000 unit MWF@2100 GA 02/03/25 21:00 02/05/25 21:42 4,000 UNIT Piperacillin Sod/ Tazobactam Sod 100 ml @ 25 mls/hr Q8HR IV 02/03/25 14:00 02/06/25 06:08 25 MLS/HR Vancomycin HCl 0 ml @ 0 mls/hr UD IV 02/04/25 09:00 Sodium Chloride 10 ml QSHIFT@10,22 IV 02/04/25 22:00 02/05/25 21:43 10 ML Fat Emulsion Intravenous 50 ml/ Calcium Gluconate 4.65 meq/ Multivitamins 10 ml/Chromium/ Copper/Manganese/ Zinc 1 ml/Amino Acids/Dextrose 1,271 ml @ 53 mls/hr [id number] IV 02/05/25 22:00 02/06/25 21:59 02/05/25 21:43 53 MLS/HR Neomycin/ Polymyxin/ Bacitracin 1 applic DAILY TOP 02/06/25 10:00 laboratory and microbiology Laboratory Tests 02/06/25 03:23 Test 02/06/25 03:23 Range/Units Serum Glucose 98 74-106 mg/dL Assessment/Plan Patient is declared brain by Neurology. It seems that they want second opinion on Brain status. Still in ICU. On vent support. Blood pressure stable. Off any pressure support. No gross higher brain reflexes. Pupils are dilated and fixed. No reported arrhythmia overnight If proven Brain , no Cardiac intervention will be successful to change any outcome. Echocardiogram revealed no WMA and also revealed good EF. It also revealed increased Pulmonary Artery Pressure in favor of component of Pulmonary Hypertension. s/p Hemodialysis Received blood and platelet transfusion Brain scan questions brain , needs Neurology follow up Patient is a 24-year-old gentleman who was originally brought to the hospital for post arrest. Patient is seen in postop area. Patient is intubated and on multiple pressor supports. Patient is not source of history. Information was obtained by reviewing the chart, talking to patient's family/mother and communicating with staff and reviewing outside records ([facility]). Patient did have elective outpatient laparoscopic cholecystectomy in [facility] on January 28 2025. As per mother, after going home, patient was feeling very hungry and was eating and drinking a lot. He started feeling abdominal pain with nausea at night and in the morning was short of breath. As per mother: patient has stopped breathing in the morning and family called 911. As per mother, as per guidance of 911, family started CPR until EMS arrived. Patient was intubated and was brought to the hospital by EMS. Since arrival to [facility], patient was seen by surgeon who took the patient to operating room and performed laparotomy (there was hepatic hematoma). Postoperatively, the patient has remained hypotensive. There is signs for multiorgan involvement. Patient was not alert and did not complain of any chest pains. Labs revealed increased troponin. Cardiology is involved for cardiac aspects of care and abnormal troponin. First available EKG reveals sinus tachycardia with no specific ST-T changes. Telemetry had revealed sinus tachycardia throughout the stay. Patient is found to have significant anemia and is receiving blood transfusion at the time of evaluation. It is of note that at the time of evaluation patient does not have any reflexes. Intubated. Mucosa pale. Dilated and fixed pupils, Scattered rhonchi in the lungs. Cardiac: Tachycardic. No murmur. Abdomen is covered by dressing. Extremities do not reveal any edema. Dorsalis pedis is 1+ bilateral. Patient does not respond to any stimuli. Reported past medical history includes asthma and obesity. Reportedly, on January 23, 2025: Patient presented to [facility] for abdominal pain/nausea/vomiting. At that point the problems were ongoing for few weeks. In [facility], CT of the abdomen and MRCP were performed. Patient was seen by GI/surgery. Patient was found to have gallstones. Patient was discharged and later on January 28, 2025 presented back to [facility] for elective laparoscopy cholecystectomy. Patient was discharged home from [facility] after laparoscopic cholecystectomy. As per mother, patient does not have baseline history of any cardiac history. As per mother, patient was using marijuana. Mother denies any previous substance abuse besides marijuana. No specific family history is reported On January 23, 2025, labs in [facility] revealed creatinine of 0.84, hemoglobin of 15.2 and troponin (high sensitive) of <3. At that point EKG was normal WBC: 20.1 - 19.0 - 22.7 - 20.6 - 28.4 - 20.3 - 21.0 - 25.2 - 29.8 - 29.5 - 29.0 - 26.2 - 21.7 - 19.7 - 17.7 - 15.3 Hemoglobin: 8.3 - 6.5 - 12.1 - 11.1 - 12.1 - 9.3 - 9.2 - 9.1 - 8.4 - 9.0 - 9.5 - 8.8 - 8.4 - 8.0 - 9.7 - 9.6 Fibrinogen: 108 - 316 - 537 Creatinine: 4.02 - 3.78 - 3.90 - 3.95 - 4.34 - 5.44 - 6.05 - 6.73 - 7.31 - 7.77 - 6.64 - 7.30 - 4.91 - 5.32 - 7.40 - 5.98 Potassium: 5.6 - 4.6 - 4.8 - 3.9 - 2.9 - 2.9 - 3.6 - 3.8 - 4.9 - 5.4 - 6.0 - 5.1 - 5.3 - 6.1 - 6.0 - 4.6 - 4.4 - 4.3 - 3.5 AST/ALT: 676/324 - 5706/4781 - 3493/0871 - -/1995 - 2499/1989 - 0/1820 - 808/995 - 586/735 - 456/444 - 312/290 - 237/163 Lactic acid: 17.9 - 17.2 - 11.4 Troponin (high sensitive): 8563 - 3551 - 9713 - 0298 - 6521 TSH: 11.05 Urine Toxicology: positive for Fentanyl and Benzodiazepine Chest x-ray revealed: Lines and Tubes: Endotracheal tube projects 2.2 cm above the meghan. Right internal jugular central venous catheter tip projects over superior vena cava. Lungs: No focal consolidation. Low lung volumes. Pleura: No effusion. No pneumothorax. Cardiomediastinal contours: Unremarkable Bones: No acute osseous abnormality. IMPRESSION: Lines and tubes as above. Low lung volumes. Repeat chest x-ray revealed: IMPRESSION: Lines and tubes in satisfactory position. Mild increased pulmonary vascular congestion Repeat chest xry revealed: IMPRESSION: Lines and tubes in satisfactory position. Mild increased pulmonary vascular congestion Repeat chest xry revealed: IMPRESSION: 1. Low lung volumes with concomitant crowding of the pulmonary vasculature. 2. No evidence of focal consolidation. 3. Lines and tubes unchanged. Repeat chest xry revealed: IMPRESSION: 1. Slight interval retraction of the endotracheal tube such that the tip now projects approximately 4.7 cm above the level of the meghan. Remaining lines and tubes unchanged. 2. Otherwise no significant change compared to prior exam. Repeat chest xry revealed: IMPRESSION: 1. Slight interval advancement of endotracheal tube such that the tip now projects approximately 1.7 cm above the level of the meghan. Remaining lines and tubes unchanged. 2. Otherwise no significant change compared to prior exam. Repeat chest xry revealed: IMPRESSION: 1. Slight interval retraction of the endotracheal tube such that the tip now projects approximately 3.3 cm above the level of the meghan. Remaining lines and tubes unchanged. 2. No evidence of acute cardiopulmonary process. Repeat chest xry revealed: IMPRESSION: 1. Endotracheal tube in appropriate position. Remaining lines and tubes unchanged. 2. No evidence of acute cardiopulmonary process. Repeat chest xry revealed: IMPRESSION: 1. Small right pleural effusion. 2. Lines and tubes unchanged. Brain scan revealed: FINDINGS: Absence of cerebral blood flow is noted along with no brain parenchymal radiotracer uptake. Increased activity is seen in the central face likely representing vascular shunting consistent with the so-called "hot nose" sign. Findings suggest brain however clinical correlation is necessary. IMPRESSION: Findings described above, which would be consistent with brain in the appropriate clinical setting, however clinical correlation is needed. CT of the chest/abdomen/pelvis revealed: IMPRESSION: 1. Hepatic hematoma measuring up to approximately 8.6 cm in greatest dimension, as described above, with hemorrhage extending beyond the liver capsule and into the right pericolic gutter as well as into the pelvis. No definite active arterial bleeding is seen on this exam, although limited evaluation due to the timing of contrast, as this was not a CTA exam. 2. Postsurgical changes of cholecystectomy. 3. Dilated fluid-filled small bowel loops, may be due to postoperative ileus. No small bowel obstruction. 4. Small volume pneumoperitoneum, likely due to recent surgery. Small volume of gas are seen in the upper ventral abdomen from the recent surgery. 5. Dependent atelectasis in the lower lobes. Otherwise, no acute disease in the chest. 6. Endotracheal tube and enteric tube in place. 7. Atrophic right kidney incidentally noted. 8. Additional findings as described above. Critical findings Critical Result: Acute hepatic hematoma with hemorrhage extending beyond the liver capsule into the adjacent portions of the abdomen and into the pelvis as detailed above. Repeat CT of chest/abdomen/pelvis revealed: There is limited interpretation of the chest, abdomen and pelvis without administration of intravenous contrast. Endotracheal tube tip terminates just at the meghan / left main bronchus. Diffuse bilateral pulmonary airspace consolidation bilaterally significantly increased. Bilateral lower lobe lobar consolidation/ atelectasis, increased from prior. Small bilateral pleural effusions. There is extensive edema/ stranding within the upper anterior chest, neck region/supraclavicular region. There is some hyperdensity within this region which could represent components of hematoma / blood products. Heterogeneous appearance of the thyroid gland. Right IJ catheter terminating at the cavoatrial junction. Adrenal glands unremarkable in shape. Perisplenic hematoma. Interval postsurgical changes in the right upper quadrant of the abdomen. There appears to be surgicel/gaseous collection within the previous hematoma cavity, likely representing surgicel. There is a radiopaque density within the resection cavity as well which measures 6.2 x 4.6 cm.. Postoperative changes of the right anterior abdomen with soft tissue emphysema. Small amount of pneumoperitoneum Surgical drainage catheter terminating in the right upper quadrant of the abdomen Right renal parenchymal atrophy. Left kidney demonstrates perinephric edema / stranding. No left hydronephrosis. Nasogastric tube projects towards the distal stomach. Moderate distention small bowel loops. Rectal catheter. Moderate distention of the large bowel loops. Normal appendix. Abdominal aorta normal in caliber. Small amount of ascites fluid/ mesenteric edema. Bladder decompressed by Mora catheter. Soft tissue edema /anasarca. Mesenteric edema. Small amount of ascites fluid. The osseous structures are stable. IMPRESSION: Limited evaluation without contrast. Interval evacuation of the right upper quadrant hematoma. Surgicel within the resection cavity. No significant interval development of new hematoma. There are 2 radiopaque lap pads within the resection cavity . Findings reviewed with Dr. Ledesma at 11:51 a.m. on 01/30/2025 Perisplenic hematoma, similar to previous examination. Extensive bilateral pulmonary airspace consolidation, significantly increased from previous examination. Small bilateral pleural effusions. Right upper quadrant drainage catheter. Pneumoperitoneum. Soft tissue edema / anasarca. Small amount of ascites fluid/ mesenteric edema. Extensive edema within the anterior chest, neck region. Heterogeneous appearance thyroid gland. Other findings as described. CT of the head revealed: IMPRESSION: 1. No evidence of acute intracranial abnormality. Repeat CT of head revealed: FINDINGS: Cerebellar tonsilar herniation. There is sulcal and ventricular effacement. The basal cisterns are effaced. Loss of mario-white matter differentiation is noted. The skull and visible facial bones are intact. The paranasal sinuses, mastoid air cells and middle ear cavities are well-aerated. The soft tissues of the scalp are unremarkable. IMPRESSION: Diffuse cerebral edema with cerebellar tonsillar herniation. Recommend MRI brain for further evaluation. CT of Neck revealed: IMPRESSION: Limited evaluation without contrast. Extensive soft tissue edema within the neck extending into the anterior / upper chest and anterior mediastinum . Retropharyngeal edema. Heterogeneous appearance of the thyroid gland. Inferior cerebellar tonsillar herniation better seen on the prior CT Renal Ultrasound revealed: IMPRESSION: 1. Right kidney not visible. 2. Left kidney is enlarged. 3. No hydronephrosis. Venous duplex of lower ext revealed: IMPRESSION: NO SONOGRAPHIC EVIDENCE FOR DEEP VENOUS THROMBOSIS IN THE RIGHT LOWER EXTREMITY VEINS. EEG reported: This is a remarkably abnormal EEG, this EEG seen in severe cerebral dysfunction due to metabolic/hypoxic encephalopathy or medication effects, unless this is caused by reversible etiology, this EEG is suggestive of a poor prognosis for meaningful recovery, please correlate clinically. Arrival EKG revealed sinus tachycardia with nonspecific ST-T changes Tele reveals sinus tachycardia Echocardiogram revealed: Technically limited study secondary to poor acoustic windows. Left ventricle: Left ventricle was normal-sized with normal systolic function. LVEF was 55-60%. No gross wall motion abnormality was seen. Right ventricle was mildly dilated with normal systolic function. Left atrium was normal-sized. Right atrium was mildly dilated. Aortic valve: Aortic valve was not well visualized. There was no aortic insufficiency/stenosis. There was no mitral regurgitation. There was trace tricuspid regurgitation. Pulmonary valve was not well visualized. IVC was not visualized. Right ventricular systolic pressure was assessed around 48 mm Hg. There was no pericardial effusion. Patient is a 24-year-old gentleman who presented with post arrest. It seems that the patient had hemorrhagic (intra-abdominal) presentation. Patient did have elective laparoscopic cholecystectomy the day before presentation. On the day of presentation, the patient was taken back to operating room and this time Laparotomy was done for hepatic hematoma. Patient does have multiorgan involvement. Clinically there is no brainstem reflexes. Shock liver/acute renal failure is considered. Troponin has been high. EKG did not reveal any STEMI. Presentation could be high troponin secondary to demand physiology. Patient does not have any risk factors for baseline coronary artery disease. In ideal scenario, ischemic workup/cardiac catheterization could be more revealing. Unfortunately, the patient does have acute renal failure which could be worsened by cardiac catheterization at this point. As there was no higher brain functions the suggestion is to wait and see if patient regains any higher brain function. It is of note that during cardiac catheterization, the patient may need some anticoagulation/antiplatelets. At this point patient is having significant anemia/bleeding and receiving blood transfusion and holding off of scenario forcing Anticoagulation/antiplatelets is advised. I had a long discussion with family members and Mother (repeatedly). Clinically patient has multiorgan failure. Secondary to active bleeding, we will avoid anticoagulation/antiplatelets for now. Being managed in ICU. Was taken to OR repeatedly. Still no reflexes. Echocardiogram revealed no WMA and also revealed good EF. It also revealed increased Pulmonary Artery Pressure in favor of component of Pulmonary Hypertension. Review of Echo images revealed good right ventricular systolic function. Not typical for Pulmonary Emboli. Still, PE cannot be ruled out. If PE is ruled out, then it is possible that patient had Pulmonary Hypertension from before (Baseline history of Asthma may actually reflect it). s/p PRBC transfusion (multiple). Being followed by Surgery, Nephrology, Hematology, Pulmonary, Neurology and GI. . Repeat imaging revealed cerebellar tonsillar herniation. Neurology diagnosed Hypoxic/Metabolic Encephalopathy also. EEG findings question meaningful recovery. Neurology declared patient: brain . s/ p Arrest Intra-abdominal bleeding Hepatic hematoma Multiorgan failure, due to shock Shock liver Lactic Acidosis Acute renal failure Acute respiratory failure, on vent support Status post laparotomy Status post laparoscopic cholecystectomy Abnormal troponin, evaluated to reflect possible demand physiology History of gallstones History of asthma Obesity History of marijuana abuse Consumptive Coagulopathy / DIC Pulmonary Hypertension Cerebellar tonsillar Herniation. Encephalopathy, hypoxic/metabolic Renal failure, started on hemodialysis Brain scan questions brain Cardiac suggestion for management: Manage in ICU Follow-up electrolytes and kidney function tests and correct abnormalities Evaluation and management of respiratory failure as per Pulmonary Evaluation and management of Cerebellar tonsillar herniation as per Neurology/surgery V/Q scan could not be completed Patient is declared brain by Neurology. It seems that they want second opinion on Brain status. If proven Brain , no Cardiac intervention will be successful to change any outcome. Echocardiogram revealed no WMA and also revealed good EF. It also revealed increased Pulmonary Artery Pressure in favor of component of Pulmonary Hypertension. Hematology follow up (to comment on prophylaxis / treatment of Pulmonary Emboli) Surgical follow up Nephrology follow up (started on hemodialysis) and Hematology follow up Secondary to active bleeding, we will avoid anticoagulation/antiplatelets for now Long-term prognosis depends on the above and most importantly regaining of the higher brain function: looks very grim Ischemic workup may be considered only after regaining higher brain function or any special change in clinical presentation Further evaluation and management depends on the above and clinical course A total of 75 minutes was spent reviewing the patient record, examining the patient, making a diagnostic and therapeutic plan, discussing this plan with medical personnel, following up on diagnostic studies and following the patient for clinical stability excluding any and all procedures. At least 50% of this time was spent in direct, [id number] contact. Thank you for allowing me to participate in this patient's care. Further recommendations will depend on patient's clinical course. Please do not hesitate to contact me if you have any questions or concerns. This medical document was created using electronic medical record system with [employer] dictation system. Although this document has been carefully reviewed, there may still be some phonetic and typographical errors. These areas are purely typographical due to the imperfection of the software programs, and do not reflect any compromise in the patient's medical care. Dietary Evaluation Review Recommendations by RD: PPN/TPN Comments: 1) Increase TPN rate to meet at least 75% of estimated daily needs 2) Advance to renal cardiac diet when medically feasible, pending ST approval 3) Follow-up with cardiology, pulmonology, nephrology, neurology, and gastroenterology 4) Continue to monitor I&O, labs, and skin integrity Expected Outcomes/Goals: 1) nutritional support to meet at least 75% of estimated daily needs 2) labs and wound to improve 3) diet to advance 4) gradual wt loss 5) f/u in 2-3 days Plan discussed with: Other (nurse) KATHLEEN COHEN MD Feb 06, 2025 07:58
[2025-02-06] MEDS: NEOMYCIN-BACITRACIN-POLYM UNITDOSE PKG TOP OINT TOP SCH (10:07)
--- NOTE | 2025-02-06 10:55 | MEDREC ---
[facility] ASP Intervention Section I [facility] ASP Intervention: Review courses of therapy (Blood cultures 2/2 bottle final for staphylococcus epidermidis. Vancomycin is sensitive to the organism however EDMUNOD = 2, the upper limit. May consider repeat blood cultures as S.epidermidis is typically due to contamination and may consider changing vancomycin to daptomycin if/when clinically appropriate.) BOBBI MENA [facility] RESIDENT Feb 06, 2025 10:55
--- NOTE | 2025-02-06 13:05 | DVH ---
CHEST RADIOGRAPH Indication: ASSESS PICC LINE PLACEMENT Technique: Single frontal view of the chest was obtained Comparison: XY CHEST PORTABLE on DOS: 02/05/25, XY CHEST PORTABLE on DOS: 02/04/25, XY CHEST PORTABLE o n DOS: 02/03/25, XY CHEST PORTABLE on DOS: 02/02/25, XY CHEST PORTABLE on DOS: 02/01/25, XY CHEST PORTAB LE on DOS: 02/05/25 FINDINGS: Lines and Tubes: Unchanged. Lungs: Small right pleural effusion. Otherwise clear lungs. No pneumothorax. Cardiomediastinal contours: Unremarkable Bones: Unremarkable IMPRESSION: 1. Small right pleural effusion. 2. Lines and tubes unchanged.
--- NOTE | 2025-02-06 15:19 | DVHPN2 ---
Progress Note Date Seen: Feb 06, 2025 Has the PT tested + for MRSA If YES, has PT been informed?: No Medical Necessity Reason Pt with a Central, PICC or Fol: Yes The following are medically ne: Central Line, Mora Catheter Reason for mora catheter: Nakul. Abd Surgery Subjective Changes from previous H/P or p: Changes (over breathing vent per nurse) Review of Systems: Deferred Objective vital signs Vital Sign Date Time Temp Pulse Resp B/P (MAP) Pulse Ox O2 Delivery O2 Flow Rate FiO2 02/06/25 15:00 98.6 89 18 111/48 (69) 97 98.6 110/58 (75) 02/06/25 14:08 30 02/06/25 13:35 Mechanical Ventilator+ 02/04/25 15:17 15.0 Total Intake and Output 02/05/25 02/05/25 02/06/25 15:00 23:00 07:00 Intake Total 763.25 ml 506 ml 588 ml Output Total 1230 ml 640 ml Balance 763.25 ml -724 ml -52 ml medications Current Medications Medications Dose Ordered Sig/Serenity Route Start Time Stop Time Status Last Admin Dose Admin Norepinephrine Bitartrate 250 ml @ 3.75 mls/hr Q24H IV 01/29/25 10:00 02/05/25 08:10 3.75 MLS/HR Midazolam HCl 50 ml @ 1 mls/hr Q24H IV 01/29/25 14:15 01/29/25 15:56 5 MLS/HR Fentanyl Citrate 250 ml @ 2.5 mls/hr Q24H IV 01/29/25 14:15 Pantoprazole Sodium 40 mg DAILY IV 01/30/25 10:00 02/06/25 10:08 40 MG Phenylephrine HCl 250 ml @ 30 mls/hr Q8H20M IV 01/29/25 19:30 01/30/25 01:39 116.25 MLS/HR Levalbuterol HCl 0.625 mg Q4HR PRN NEB 01/29/25 20:00 02/02/25 06:23 0.625 MG Ipratropium [place] 0.5 mg Q4HPRN PRN NEB 01/29/25 20:00 02/02/25 06:23 0.5 MG Epinephrine HCl 250 ml @ 7.5 mls/hr Q24H IV 01/30/25 00:15 Vasopressin 20 units/Sodium Chloride 100 ml @ 9 mls/hr Q11H7M IV 01/30/25 07:30 02/03/25 13:09 9 MLS/HR Amino Acids 0 ml @ 0 mls/hr PER PHARMACY IV 02/01/25 11:15 Diagnostic Test (Pha) 1 strip Q6HR 02/01/25 18:00 02/06/25 12:11 1 STRIP Insulin Human Regular FOLLOW SLIDING SCALE Q6HR SC 02/01/25 18:00 02/02/25 11:36 2 UNITS Dextrose 50 ml UD IV 02/01/25 12:30 Bumetanide 25 mg/ Miscellaneous 100 ml @ 4 mls/hr Q24H IV 02/01/25 14:00 02/06/25 07:59 4 MLS/HR Albumin Human 100 ml @ 100 mls/hr PRN PRN IV 02/02/25 09:45 02/05/25 11:13 100 MLS/HR Epoetin Gunnar-epbx 4,000 unit MWF@2100 [place] 02/03/25 21:00 02/05/25 21:42 4,000 UNIT Piperacillin Sod/ Tazobactam Sod 100 ml @ 25 mls/hr Q8HR IV 02/03/25 14:00 02/06/25 14:25 25 MLS/HR Vancomycin HCl 0 ml @ 0 mls/hr UD IV 02/04/25 09:00 Sodium Chloride 10 ml QSHIFT@10,22 IV 02/04/25 22:00 02/06/25 10:08 10 ML Fat Emulsion Intravenous 50 ml/ Calcium Gluconate 4.65 meq/ Multivitamins 10 ml/Chromium/ Copper/Manganese/ Zinc 1 ml/Amino Acids/Dextrose 1,271 ml @ 53 mls/hr [id number] IV 02/05/25 22:00 02/06/25 21:59 02/05/25 21:43 53 MLS/HR Neomycin/ Polymyxin/ Bacitracin 1 applic DAILY TOP 02/06/25 10:00 02/06/25 10:07 1 APPLIC Fat Emulsion Intravenous 50 ml/ Potassium Phosphate 11 meq/ Calcium Gluconate 4.6 meq/ Multivitamins 10 ml/Amino Acids/ Dextrose 1,272.3924 ml @ 53 mls/hr Q24H1M IV 02/06/25 22:00 02/07/25 21:59 Examination: GENERAL:Abnormal, LUNGS:Abnormal, NEURO:Abnormal laboratory and microbiology Laboratory Tests 02/06/25 03:23 Test 02/06/25 03:23 Range/Units Serum Glucose 98 74-106 mg/dL Microbiology Date/Time Source Procedure Growth Status 02/02/25 22:00 Urine - [place] Urine Culture - Final Complete 02/02/25 19:20 Blood Blood Culture - Final Staphylococcus epidermidis Complete 01/30/25 00:00 Nose MRSA Screen - Final Complete 01/29/25 10:43 Sputum Gram Stain - Final Complete 01/29/25 10:43 Sputum Respiratory Culture - Final Complete Problem List/Assessment/Plan Problem List/Assessment/Plan Acute kidney injury likely ischemic ATN in the setting of shock, FeNa > 2%, nonoliguric Acute respiratory failure, intubated on ventilator Status post cardiac arrest Anoxic encephalopathy//brain herniation--> first MRI reported brain Hemodynamic shock from bleeding Acute blood loss anemia/post op Status post laparoscopic cholecystectomy on 01/28/25 [facility] Status post ex lap, 01/29 Positive troponins NSTEMI--likely demand ischemia Shock liver per nurse over breathing vent today, neurology second opinion is noted planned for brain eval continue diuretics, HD assessment will be made based on labs no treatment today surgery recs noted will monitor fluid balance YARY for anemia grim overall prognosis/ rec palliative care Plan discussed with: Other (family) My Orders My Orders Orders - SABINE ALLEN MD Procedure Category Date Status Time Hemodialysis Orders ORDERS 02/05/25 Transmitted 08:08 Dietary Evaluation Review Recommendations by RD: PPN/TPN Comments: 1) Increase TPN rate to meet at least 75% of estimated daily needs 2) Advance to renal cardiac diet when medically feasible, pending ST approval 3) Follow-up with cardiology, pulmonology, nephrology, neurology, and gastroenterology 4) Continue to monitor I&O, labs, and skin integrity Expected Outcomes/Goals: 1) nutritional support to meet at least 75% of estimated daily needs 2) labs and wound to improve 3) diet to advance 4) gradual wt loss 5) f/u in 2-3 days Critical Care Time (mins): 33 SABINE ALLEN MD Feb 06, 2025 15:19
--- NOTE | 2025-02-06 16:41 | DVHPN2 ---
Progress Note Date Seen: Feb 06, 2025 Has the PT tested + for MRSA If YES, has PT been informed?: No Medical Necessity Reason Pt with a Central, PICC or Fol: Yes The following are medically ne: Central Line, Mora Catheter Reason for mora catheter: Nakul. Abd Surgery Subjective Review of Systems Pt was seen earlier today at around 9 AM, then at around 11AM and now, with mother at the bedside. Mother updated. Essentially no changes. At around 11 Am she was concerned because he had bleeding from the R PICC site. Dressing removed and there was no further bleeding at the time. RN replaced dressing. No further bleeding noted. Pending Second Neurology opinion from Dr. Meneses. Objective vital signs Vital Sign Date Time Temp Pulse Resp B/P (MAP) Pulse Ox O2 Delivery O2 Flow Rate FiO2 02/06/25 16:05 89 17 107/52 (70) 97 30 02/06/25 15:44 Mechanical Ventilator+ 02/06/25 15:00 98.6 98.6 02/04/25 15:17 15.0 Total Intake and Output 02/05/25 02/05/25 02/06/25 15:00 23:00 07:00 Intake Total 763.25 ml 506 ml 588 ml Output Total 1230 ml 640 ml Balance 763.25 ml -724 ml -52 ml medications Current Medications Medications Dose Ordered Sig/Serenity Route Start Time Stop Time Status Last Admin Dose Admin Norepinephrine Bitartrate 250 ml @ 3.75 mls/hr Q24H IV 01/29/25 10:00 02/05/25 08:10 3.75 MLS/HR Midazolam HCl 50 ml @ 1 mls/hr Q24H IV 01/29/25 14:15 01/29/25 15:56 5 MLS/HR Fentanyl Citrate 250 ml @ 2.5 mls/hr Q24H IV 01/29/25 14:15 Pantoprazole Sodium 40 mg DAILY IV 01/30/25 10:00 02/06/25 10:08 40 MG Phenylephrine HCl 250 ml @ 30 mls/hr Q8H20M IV 01/29/25 19:30 01/30/25 01:39 116.25 MLS/HR Levalbuterol HCl 0.625 mg Q4HR PRN NEB 01/29/25 20:00 02/02/25 06:23 0.625 MG Ipratropium [place] 0.5 mg Q4HPRN PRN NEB 01/29/25 20:00 02/02/25 06:23 0.5 MG Epinephrine HCl 250 ml @ 7.5 mls/hr Q24H IV 01/30/25 00:15 Vasopressin 20 units/Sodium Chloride 100 ml @ 9 mls/hr Q11H7M IV 01/30/25 07:30 02/03/25 13:09 9 MLS/HR Amino Acids 0 ml @ 0 mls/hr PER PHARMACY IV 02/01/25 11:15 Diagnostic Test (Pha) 1 strip Q6HR 02/01/25 18:00 02/06/25 12:11 1 STRIP Insulin Human Regular FOLLOW SLIDING SCALE Q6HR SC 02/01/25 18:00 02/02/25 11:36 2 UNITS Dextrose 50 ml UD IV 02/01/25 12:30 Bumetanide 25 mg/ Miscellaneous 100 ml @ 4 mls/hr Q24H IV 02/01/25 14:00 02/06/25 07:59 4 MLS/HR Albumin Human 100 ml @ 100 mls/hr PRN PRN IV 02/02/25 09:45 02/05/25 11:13 100 MLS/HR Epoetin [place]-epbx 4,000 unit MWF@2100 [place] 02/03/25 21:00 02/05/25 21:42 4,000 UNIT Piperacillin Sod/ Tazobactam Sod 100 ml @ 25 mls/hr Q8HR IV 02/03/25 14:00 02/06/25 14:25 25 MLS/HR Vancomycin HCl 0 ml @ 0 mls/hr UD IV 02/04/25 09:00 Sodium Chloride 10 ml QSHIFT@10,22 IV 02/04/25 22:00 02/06/25 10:08 10 ML Fat Emulsion Intravenous 50 ml/ Calcium Gluconate 4.65 meq/ Multivitamins 10 ml/Chromium/ Copper/Manganese/ Zinc 1 ml/Amino Acids/Dextrose 1,271 ml @ 53 mls/hr [id number] IV 02/05/25 22:00 02/06/25 21:59 02/05/25 21:43 53 MLS/HR Neomycin/ Polymyxin/ Bacitracin 1 applic DAILY TOP 02/06/25 10:00 02/06/25 10:07 1 APPLIC Fat Emulsion Intravenous 50 ml/ Potassium Phosphate 11 meq/ Calcium Gluconate 4.6 meq/ Multivitamins 10 ml/Amino Acids/ Dextrose 1,272.3924 ml @ 53 mls/hr Q24H1M IV 02/06/25 22:00 02/07/25 21:59 Examination Neuro. Unchanged. Dilated fixed pupils. No reflexes. CV. Normal HR 80's and normotensive. Hemodynamically stable. LSCV catheter exit sites clean, dry and intact. No erythema. Pulmonary: Intubated with mechanical ventilator support 500/14/30%/+7. RR17 to 19 GI: Soft, obese, non distended and non tender. Dressing C/D/I. Drain with scant sanguineous fluid. Minimal output up to now. RN not available at this moment and can't find drain output record. OGT in place. Bilious fluid within, low output. . Mora catheter in place. Extremities; No edema Resolved facial and neck edema. Orbital edema resolved laboratory and microbiology Laboratory Tests 02/06/25 03:23 Test 02/06/25 03:23 Range/Units Serum Glucose 98 74-106 mg/dL Microbiology Date/Time Source Procedure Growth Status 02/02/25 22:00 Urine - [place] Urine Culture - Final Complete 02/02/25 19:20 Blood Blood Culture - Final Staphylococcus epidermidis Complete 01/30/25 00:00 Nose MRSA Screen - Final Complete 01/29/25 10:43 Sputum Gram Stain - Final Complete 01/29/25 10:43 Sputum Respiratory Culture - Final Complete Labs and/or images reviewed: Labs reviewed by me, Image(s) reviewed by me Problem List/Assessment/Plan Problems(with codes): (1) Thrombocytopenia (2) Cerebral edema (3) Tonsillar hernia into foramen magnum (4) Shock liver (5) Ventilator dependent (6) ARF (acute renal failure) (7) Coagulopathy Problem List/Assessment/Plan Neuro: Appreciate neurology input and assistance. CT revealed Cerebral edema and tonsillar herniation.EEG no electric activity. Cerebral perfusion study confirmed no perfusion radiographically consistent with brain , concordant with initial clinical diagnosis and EEG. However, pt has demonstrated brain stem function as he is breathing over vent set rate of 14. RR remains 17 to 18. RR witnessed up to 20s by family. Pt has been identified as organ donor. However, given breathing over vent set RR, he is demonstrating some neurological activity which voids previous brain assessment. [employer] sales representative has been informed and process has been placed on hold.Pt family requested second neurology opinion. Dr. Meneses soon to see pt.. CV: Hemodynamic instability secondary to hemorrhagic shock. Resolved. Elevated troponin, likely secondary and/or worsened by hemodynamic stress and CPR. Can't rule out ischemia. Cardiology assistance appreciated. Mechanical DVT prophylaxis. Pulmonary: VDRF. Continue ventilator. Appreciate pulmonary medicine assistance. CXR R pleural effusion. Pending new CXR and ABG results. May need tracheostomy. Pending second neuro evaluation. A discussion will be held with the patient's family afterwards to determine the course of action. GI: NPO. Continue TPN. Continue GI prophylaxis. Hepatic shock, continues improving. Improving transaminases. Appreciate GI assistance. May need PEG/gastrostomy. Pending second neuro evaluation. A discussion will be mari with pt's family afterwards to determine course of action. . ARF secondary to hemorrhagic shock. Strict I&O. Mora to gravity. Appreciate nephrology assistance. Replace/correct electrolytes. HD Bumex gtt and IVFs per nephrology. Heme/ID. Hemorrhagic shock resolved. Drain had decreased sanguineous appearing output. Appears to have intermittent bleeding. Bled from PICC site as well. Currently not bleeding. Hgb remains stable. Thrombocytopenia, remains stable. Possible consumptive and compounded with hepatic shock, lack of thrombopoietin. Plts remain>70. Minimizing blood draw frequency to avoid worsening anemia. Will reserve blood draws for daily and only if clinically indicated at any given moment. Repeat labs AM. Appreciate hematology assistance. Leukocytosis continues improving. Repeat set of Bld Cx Staph epi, sensitive to Vancomycin renal dose. Continue Zosyn and Vancomycin. Vancomycin adjustment by pharmacy. Endocrine: Tight glycemic control. Skin: Skin care and pressure ulcer precautions. Family updated. Plan discussed with: Other (RN, Mother and brother) My Orders My Orders Orders - JITENDRA ZAMORA MD Procedure Category Date Status Time * Neurology Consult CONS 02/05/25 Transmitted 17:32 Rfgtihrw-Efailynyls-Drossiyrq PHA 02/06/25 In Process (Triple An 10:00 Abg W/ Co-Ox RT 02/06/25 Logged 05:15 Complete Blood Count LAB 02/07/25 Verified 04:00 Comprehensive LAB 02/07/25 Verified Metabolic Panel 04:00 Amino Acid PHA 02/06/25 In Process Infusion... W/Fat 22:00 Magnesium LAB 02/07/25 Verified 04:00 Phosphorus LAB 02/07/25 Verified 04:00 Tpn Per Pharmacy YANET 02/06/25 In Process 10:28 Vancomycin,Random LAB 02/07/25 Verified 04:00 Dietary Evaluation Review Recommendations by RD: PPN/TPN Comments: 1) Increase TPN rate to meet at least 75% of estimated daily needs 2) Advance to renal cardiac diet when medically feasible, pending ST approval 3) Follow-up with cardiology, pulmonology, nephrology, neurology, and gastroenterology 4) Continue to monitor I&O, labs, and skin integrity Expected Outcomes/Goals: 1) nutritional support to meet at least 75% of estimated daily needs 2) labs and wound to improve 3) diet to advance 4) gradual wt loss 5) f/u in 2-3 days JITENDRA ZAMORA MD Feb 06, 2025 16:41
--- NOTE | 2025-02-06 16:57 | DVHINCON2 ---
Date of service: Feb 06, 2025 Referring Physician Bunny Ledesma MD Reason for Consultation Unresponsiveness History of Present Illness The patient is a 24-year-old male seen for evaluation regarding unresponsiveness. The patient is seen today for second opinion regarding determination of neurological prognosis. In brief, the patient recently underwent uncomplicated laparoscopic cholecystectomy at [facility] on January 28, which was reportedly uneventful. Subsequently, the patient went home with no significant problems aside from abdominal discomfort. Within a short time, was noted to be increasingly lethargic and weak on the day of admission, progressing to shortness of breath and was found to become apneic. CPR was reportedly done at home prior to EMS arrival, who found the patient in full cardiopulmonary arrest. He was subsequently brought to [facility] for further care. He was successfully eventually resuscitated with ROSC, intubated and put on ventilator support. He was eventually seen by surgery service, and exploratory laparotomy was carried out. Initial head CT scan performed on admission was unremarkable, however, a repeat head CT scan done the day after revealed diffuse cerebral edema consistent with severe anoxic encephalopathy. The patient had remained unresponsive since admission, with apparently no spontaneous respirations. A nuclear medicine cerebral perfusion scan was performed subsequently, which reportedly showed no cerebral blood flow. Of note is that an apnea test could not be performed prior to this, due to the fact that the patient was too hemodynamically unstable. Sedation has been weaned off over the past couple of days, and it had been noted that the patient had been having spontaneous respiratory effort, overbreathing the ventilator. However, no concomitant further,more meaningful responses have been noted. Past Medical History Sniffing for asthma, obesity Past Surgical History Uncomplicated laparoscopic cholecystectomy on January 28 Family History Noncontributory Social History Apparently no recent smoking or alcohol history Allergies: Coded Allergies: NO KNOWN ALLERGIES (Unverified , 01/21/14) Current Medications Current Medications Medications (Trade) Dose Ordered Sig/Serenity Route PRN Reason Start Time Stop Time Status Last Admin Fat Emulsion Intravenous 50 ml/ Calcium Gluconate 4.65 meq/ Multivitamins 10 ml/Chromium/ Copper/Manganese/ Zinc 1 ml/Amino Acids/Dextrose 1,271 ml @ 53 mls/hr [id number] IV 02/05/25 22:00 02/06/25 21:59 02/05/25 21:43 Neomycin/ Polymyxin/ Bacitracin (Triple Antibiotic) 1 applic DAILY TOP 02/06/25 10:00 02/06/25 10:07 Fat Emulsion Intravenous 50 ml/ Potassium Phosphate 11 meq/ Calcium Gluconate 4.6 meq/ Multivitamins 10 ml/Amino Acids/ Dextrose 1,272.3924 ml @ 53 mls/hr Q24H1M IV 02/06/25 22:00 02/07/25 21:59 Review of Systems Unobtainable Vital Signs Vital Signs Date Time Temp Pulse Resp B/P (MAP) Pulse Ox O2 Delivery O2 Flow Rate FiO2 02/06/25 16:05 89 17 107/52 (70) 97 30 02/06/25 15:44 Mechanical Ventilator+ 02/06/25 15:00 98.6 98.6 02/04/25 15:17 15.0 Physical Exam Mental status: The patient is totally unresponsive to any form of stimulation. Cranial nerves II through XII: Pupils are 5 mm nonreactive to light. No doll's eye reflex elicited. No gag reflex elicited. No corneal reflex elicited. Motor examination: No movements of arms and legs to pain stimulation. Sensory examination: No response to deep sternal pressure. Deep tendon reflexes: Absent all over. Toes neutral to plantar stimulation. Cerebellar: Unable to assess. Labs/Diagnostic Data Labs Test 02/06/25 12:10 02/06/25 07:37 02/06/25 03:23 02/04/25 03:30 Range/Units POC Glucose 83 70-106 mg/dl Blood Gas Specimen Type Arterial Blood Gas Sample Site Arterial line Blood Gas Patient Temperature 37.0 Arterial Blood Date Drawn [id number] Arterial Blood pH 7.474 H 7.350-7.450 Arterial Blood Partial Pressure CO2 38.5 35.0-48.0 mmHg Arterial Blood Partial Pressure O2 101.9 83.0-108.0 mmHg Arterial Blood HCO3 27.6 21.0-28.0 mmol/L Arterial Blood Oxygen Saturation 97.5 94.0-98.0 % Arterial Blood Base Excess 3.9 H -2.0-3.0 mmol/L Arterial Blood Oxyhemoglobin 96.9 94.0-98.0 % Arterial Blood Carboxyhemoglobin 0.6 0.5-1.5 % Arterial Blood Methemoglobin 0.0 0.0-1.5 % Markus Test N/a Blood Gas Total Hemoglobin 11.00 L 13.5-17.5 g/dL Blood Gas Set Respiration Rate 14.0 Blood Gas Modality Vent - ac FiO2 % 30.0 Blood Gas Tidal Volume 500.0 Blood Gas PEEP or CPAP 7.0 White Blood Count 15.3 H 4.4-10.8 10^3/uL Red Blood Count 3.22 L 4.5-5.90 10^6/uL Hemoglobin 9.6 L 13.5-17.5 g/dL Hematocrit 28.8 L 41.0-53.0 % Mean Corpuscular Volume 89.4 80.0-100.0 fL Mean Corpuscular Hemoglobin 29.9 28.0-32.0 pg Mean Corpuscular Hemoglobin Concent 33.5 32.0-36.0 g/dL Red Cell Distribution Width 16.0 H 11.8-14.3 % Platelet Count 72 L 140-450 10^3/uL Mean Platelet Volume 10.0 6.9-10.8 fL Neutrophils (%) (Auto) 37.0-80.0 % Lymphocytes (%) (Auto) 10.0-50.0 % Monocytes (%) (Auto) 0.0-12.0 % Basophils (%) (Auto) 0.0-2.0 % Neutrophils # (Auto) 1.6-8.6 10 ^3/uL Lymphocytes # (Auto) 0.4-5.4 10 ^3/uL Monocytes # (Auto) 0-1.3 10 ^3/uL Differential Total Cells Counted 100.0 100 Neutrophils % (Manual) 71 37.0-80.0 Band Neutrophils % (Manual) 3 Lymphocytes % (Manual) 12 10.0-50.0 Monocytes % (Manual) 11 0-12 Eosinophils % (Manual) 3 0-7 Basophils % (Manual) 0 0.0-2.0 Metamyelocytes % (manual) 0 Myelocytes % (Manual) 0 Promyelocytes % (Manual) 0 Blast Cells % (Manual) 0 Reactive Lymphocytes 0 Platelet Estimate Decreased Large Platelets Few Prothrombin Time 11.6 9.3-11.8 sec Prothrombin Time INR 1.11 0.9-1.15 Activated Partial Thromboplast Time 34.5 24.5-34.5 SEC Sodium Level 141 136-145 mmol/L Potassium Level 3.5 3.5-5.1 mmol/L Chloride Level 98 98-107 mmol/L Carbon Dioxide Level 29 20-31 mmol/L Anion Gap 14 5-15 Blood Urea Nitrogen 62 #H 9-23 mg/dL Creatinine 5.98 H 0.700-1.30 mg/dL Glomerular Filtration Rate Calc 13 >90 mL/min BUN/Creatinine Ratio 10.4 10.0-20.0 Serum Glucose 98 74-106 mg/dL Calcium Level 8.6 L 8.7-10.4 mg/dL Phosphorus Level 2.5 2.4-5.1 mg/dL Magnesium Level 2.4 1.6-2.6 mg/dL Total Bilirubin 1.1 H 0.2-1.0 mg/dL Aspartate Amino Transferase (AST) 237 H 13-40 U/L Alanine Aminotransferase (ALT) 163 H 7-40 U/L Alkaline Phosphatase 317 H 46-116 U/L Total Protein 5.2 L 5.7-8.2 g/dL Albumin 3.0 L 3.2-4.8 g/dL Random Vancomycin Level 19.0 H 5-10 ug/mL Nucleated Red Blood Cells 1.0 % Test 02/03/25 18:00 02/03/25 11:25 02/03/25 03:15 02/02/25 13:30 Range/Units Anisocytosis (manual) Slight Ammonia < 10 L 11-32 umol/L Smudge Cells 1 /100 WBC Triglycerides Level 93 < 150 mg/dL Hepatitis B Surface Antigen Negative Negative Test 02/02/25 04:40 02/01/25 17:53 02/01/25 03:05 01/31/25 06:37 Range/Units Fibrinogen 537 H 177-375 mg/dL Vicky Cells Few Schistocytes Few Eosinophils (%) (Auto) 0.0 0.0-7.0 % Eosinophils # (Auto) 0 0-0.8 10 ^3/uL Basophils # (Auto) 0 0-0.2 10 ^3/uL Blood Gas Critical Value Read Back Yes Blood Gas Notified Whom Lola pearce md Blood Gas Notified Time [id number] Blood Gas Notified By Mowing Machine Operator lola alanis Test 01/30/25 07:37 01/29/25 21:45 01/29/25 20:43 01/29/25 16:16 Range/Units Lactic Acid Level 11.4 *H 0.4-2.0 mmol/L Specimen Drawn By Mowing Machine Operator aileen jhaveri Troponin I High Sensitivity 7474 *H </=54 ng/L Vitamin D 25-Hydroxy 16.0 L 30.0-100 ng/mL Urine Opiates Screen Neg NEGATIVE Urine Fentanyl Screen Pos NEGATIVE Urine Barbiturates Screen Neg NEGATIVE Urine Phencyclidine Screen Neg NEGATIVE Urine Amphetamines Screen Neg NEGATIVE Urine Benzodiazepines Screen Pos NEGATIVE Urine Cocaine Screen Neg NEGATIVE Urine Cannabinoids Screen Neg NEGATIVE Test 01/29/25 14:30 01/29/25 14:15 01/29/25 09:54 Range/Units Thyroid Stimulating Hormone (TSH) 11.05 H 0.55-4.78 uIU/mL Urine Creatinine 19.64 L 30.0-125.0 mg/dL Urine Sodium 98 40-220 mmol/L Urine Total Protein 245.5 H 1-14 mg/dL Urine Color Light-orange Yellow Urine Clarity Turbid H Clear Urine pH 5.5 5.0-9.0 Urine Specific [place] 1.017 1.001-1.035 Urine Protein 2+ H Negative Urine Ketones Trace Negative Urine Blood 3+ H Negative /uL Urine Nitrite Negative Negative Urine Bilirubin Negative Negative Urine Urobilinogen Normal Negative mg/dL Urine Leukocyte Esterase Negative Negative /uL Urine RBC 130 0 - 3 /hpf Urine Microscopic WBC < 1 0-3 /HPF Urine Squamous Epithelial Cells Mod <5 /hpf Urine Amorphous Crystals Few None Seen /hpf Urine Bacteria Few H None Seen /hpf Urine Glucose Trace Normal mg/dL Microbiology Date/Time Source Procedure Growth Status 02/02/25 22:00 Urine - [place] Urine Culture - Final Complete 02/02/25 19:20 Blood Blood Culture - Final Staphylococcus epidermidis Complete 01/30/25 00:00 Nose MRSA Screen - Final Complete 01/29/25 10:43 Sputum Gram Stain - Final Complete 01/29/25 10:43 Sputum Respiratory Culture - Final Complete Problems(with codes): (1) Hypoxic ischemic encephalopathy due to cardiac arrest (2) Cardiopulmonary arrest with successful resuscitation (3) Coma after cardiorespiratory arrest (4) Cerebral edema due to anoxia (5) Acute respiratory failure (6) Cerebral edema (7) Shock liver (8) Ventilator dependent (9) ARF (acute renal failure) Plan/Recommendation By definition, declaration of brain cannot be made at this point in time due to persistence of respiratory effort, signifying some amount of brainstem functioning. It should be said however, that totality of clinical picture implies the presence of irreversible severe hypoxic ischemic encephalopathy and prognosis for any meaningful neurological recovery or survival is dismal, and the foreseeable best case scenario, if the patient survives, will be a severe persistent vegetative state. It was explained to the patient's family that no further intervention, at this time, can be done to reverse severe anoxic brain injury. All questions were answered to the family satisfaction. Plan discussed with: Other (Mother, sister, brother) LÓPEZ ATKINS MD Feb 06, 2025 16:56
[2025-02-06] MEDS: BUMETANIDE 1mg/4ml VIAL (0.25mg/ml) IV SCH (18:42)
--- NOTE | 2025-02-06 19:36 | DVHPNRES ---
Progress Note Date Seen: Feb 06, 2025 Resident Creating Document: ARNOLD MUHAMMAD DALE Has the PT tested + for MRSA If YES, has PT been informed?: No Medical Necessity Reason Pt with a Central, PICC or Fol: Yes The following are medically ne: Central Line, Mora Catheter Reason for mora catheter: Nakul. Abd Surgery Subjective Review of Systems Patient seen and examined at the bedside. Patient is sedated and on mechanical ventilation Objective vital signs Vital Sign Date Time Temp Pulse Resp B/P (MAP) Pulse Ox O2 Delivery O2 Flow Rate FiO2 02/06/25 18:46 90 18 98/46 (63) 96 02/06/25 18:06 30 02/06/25 18:00 Mechanical Ventilator+ 02/06/25 16:00 98.8 98.8 02/04/25 15:17 15.0 Total Intake and Output 02/05/25 02/05/25 02/06/25 15:00 23:00 07:00 Intake Total 763.25 ml 506 ml 588 ml Output Total 1230 ml 640 ml Balance 763.25 ml -724 ml -52 ml medications Current Medications Medications Dose Ordered Sig/Serenity Route Start Time Stop Time Status Last Admin Dose Admin Norepinephrine Bitartrate 250 ml @ 3.75 mls/hr Q24H IV 01/29/25 10:00 02/05/25 08:10 3.75 MLS/HR Midazolam HCl 50 ml @ 1 mls/hr Q24H IV 01/29/25 14:15 01/29/25 15:56 5 MLS/HR Fentanyl Citrate 250 ml @ 2.5 mls/hr Q24H IV 01/29/25 14:15 Pantoprazole Sodium 40 mg DAILY IV 01/30/25 10:00 02/06/25 10:08 40 MG Phenylephrine HCl 250 ml @ 30 mls/hr Q8H20M IV 01/29/25 19:30 01/30/25 01:39 116.25 MLS/HR Levalbuterol HCl 0.625 mg Q4HR PRN NEB 01/29/25 20:00 02/02/25 06:23 0.625 MG Ipratropium [place] 0.5 mg Q4HPRN PRN NEB 01/29/25 20:00 02/02/25 06:23 0.5 MG Epinephrine HCl 250 ml @ 7.5 mls/hr Q24H IV 01/30/25 00:15 Vasopressin 20 units/Sodium Chloride 100 ml @ 9 mls/hr Q11H7M IV 01/30/25 07:30 02/03/25 13:09 9 MLS/HR Amino Acids 0 ml @ 0 mls/hr PER PHARMACY IV 02/01/25 11:15 Diagnostic Test (Pha) 1 strip Q6HR 02/01/25 18:00 02/06/25 17:17 1 STRIP Insulin Human Regular FOLLOW SLIDING SCALE Q6HR SC 02/01/25 18:00 02/02/25 11:36 2 UNITS Dextrose 50 ml UD IV 02/01/25 12:30 Albumin Human 100 ml @ 100 mls/hr PRN PRN IV 02/02/25 09:45 02/05/25 11:13 100 MLS/HR Epoetin Gunnar-epbx 4,000 unit MWF@2100 CT 02/03/25 21:00 02/05/25 21:42 4,000 UNIT Piperacillin Sod/ Tazobactam Sod 100 ml @ 25 mls/hr Q8HR IV 02/03/25 14:00 02/06/25 14:25 25 MLS/HR Vancomycin HCl 0 ml @ 0 mls/hr UD IV 02/04/25 09:00 Sodium Chloride 10 ml QSHIFT@10,22 IV 02/04/25 22:00 02/06/25 10:08 10 ML Fat Emulsion Intravenous 50 ml/ Calcium Gluconate 4.65 meq/ Multivitamins 10 ml/Chromium/ Copper/Manganese/ Zinc 1 ml/Amino Acids/Dextrose 1,271 ml @ 53 mls/hr [id number] IV 02/05/25 22:00 02/06/25 21:59 02/05/25 21:43 53 MLS/HR Neomycin/ Polymyxin/ Bacitracin 1 applic DAILY TOP 02/06/25 10:00 02/06/25 10:07 1 APPLIC Fat Emulsion Intravenous 50 ml/ Potassium Phosphate 11 meq/ Calcium Gluconate 4.6 meq/ Multivitamins 10 ml/Amino Acids/ Dextrose 1,272.3924 ml @ 53 mls/hr Q24H1M IV 02/06/25 22:00 02/07/25 21:59 Bumetanide 2 mg BIDD IV 02/06/25 18:00 02/06/25 18:42 2 MG Examination General: RASS -5, afebrile, mucosae are moist Cardiovascular: Normal S1 and S2. No murmurs, gallops or rubs Respiratory: Mechanically assisted ventilation, equal bilateral airway entree. Clear lung sounds on auscultation Abdomen: Soft, nontender, no organomegaly, with surgical wound on abdomin MSK/skin: Mobilization of limbs cannot be evaluated. Skin is dry and warm. Neurological: Orientation cannot be assessed. Pupils are dilated and nonreactive to light, absent brainstem reflexes laboratory and microbiology Laboratory Tests 02/06/25 03:23 Test 02/06/25 03:23 Range/Units Serum Glucose 98 74-106 mg/dL Microbiology Date/Time Source Procedure Growth Status 02/02/25 22:00 Urine - [place] Urine Culture - Final Complete 02/02/25 19:20 Blood Blood Culture - Final Staphylococcus epidermidis Complete 01/30/25 00:00 Nose MRSA Screen - Final Complete 01/29/25 10:43 Sputum Gram Stain - Final Complete 01/29/25 10:43 Sputum Respiratory Culture - Final Complete Labs and/or images reviewed: Labs reviewed by me Problem List/Assessment/Plan Problem List/Assessment/Plan This is a 24-year-old male with no significant past medical history underwent elective laparoscopic cholecystectomy on 01/28 at [facility] (due to cholelithiasis), on 2nd day postop at home became lethargic and subsequently coded. ROSC was achieved with CPR, abdominal CT scan showed intra-abdominal hematoma, underwent emergent laparotomy and drained about 500-750 thrombosed and dark blood. NEURO: Hypoxic encephalopathy, due to cardiac arrest Possible anoxic brain injury * RASS Score -5 * Head CT from 01/30 shows, Cerebellar tonsilar herniation. There is sulcal and ventricular effacement. The basal cisterns are effaced. Loss of mario-white matter differentiation is noted. * BRNNM-brain imaging, shows absence blood flow, findings suggest brain in the appropriate clinical setting CARDIOVASCULAR: NSTEMI possible type 2 Status post cardiac arrest Distributive shock (vasoplegia)/neurogenic shock/septic shock vasopressin * Cardiology on the board, recommended medical management * Echo from 01/30 shows,Technically limited study secondary to poor acoustic windows, normal LV size and function, 55-60% PULMONARY: Acute hypoxic respiratory failure, likely due to anoxic brain injury Cxr showed bilateral mild pulmonary vascular congestion GASTROINTESTINAL: Acute transaminitis secondary to hypovolemic shock Coagulopathy Hypoalbuminemia Status post laparoscopic cholecystectomy Status post exploratory laparotomy for hemoperitoneum GENITOURINARY: HARLEEN secondary to hypovolemic shock * Nephrology on the board, performed dialysis on 02/03 * IV Bumex drip METABOLIC: Severe anion gap metabolic acidosis due to lactic acidosis Hypernatremia Grade 2 obesity, BMI 35.7 kg per m2 Hypoglycemia HEME: Severe anemia, due to bleeding * Received 3 units of PRBC, 2 units of FFP and 1 unit of cryoprecipitate * Monitor H&H INFECTIOUS DISEASE: Leucocytosis Lactic acidosis * Urine culture, blood culture and respiratory culture shows no growth * On Zosyn and vancomycin DIET: TPN DVT prophylax: Hold GI prophylaxis: Protonix Code status: Full code LINES/DRAINS/ACCESS: ETT: Intubated on 01/29 IV access: Lt IJ placed on 01/29/25 left subclavian Drips: On Levophed Mora catheter: Placed on 01/29 DISPOSITION: ICU status Patient's status discussed with the patient's mother at the bedside. Critical care time spent more than 53 minutes, including patient care, chart review, and updating the family. Excluding any procedures. Case discussed with Dr. Troy Plan discussed with: Patient Dietary Evaluation Review Recommendations by RD: PPN/TPN Comments: 1) Increase TPN rate to meet at least 75% of estimated daily needs 2) Advance to renal cardiac diet when medically feasible, pending ST approval 3) Follow-up with cardiology, pulmonology, nephrology, neurology, and gastroenterology 4) Continue to monitor I&O, labs, and skin integrity Expected Outcomes/Goals: 1) nutritional support to meet at least 75% of estimated daily needs 2) labs and wound to improve 3) diet to advance 4) gradual wt loss 5) f/u in 2-3 days Date of Service: Feb 06, 2025 Billing Provider: JEFFREY TROY MD Common Visit Codes: [id number] CARE 30-74 MIN SABINAMARAMULU RESDIENT Feb 06, 2025 19:36 JEFFREY TROY MD Feb 09, 2025 11:05
[2025-02-06] MEDS: TPN PER PHARMACY IV NR (22:03)
--- NOTE | 2025-02-06 22:53 | DVHPN2 ---
Subjective DOS: 02/06/2025 [facility] Patient seen and examined at bedside. Intubated on mechanical ventilator. Overnight events reviewed. HPI: A 24-year-old man with past medical history of asthma and gallstone pancreatitis who underwent laparoscopic cholecystectomy on 01/28/2025 in [facility]. Patient was discharged on same day; and as per medical records he developed nausea, vomiting and shortness of breath the night prior to presentation and woke up very weak; noted on AM of presentation with altered level of consciousness. Paramedics were called and patient was found to be in cardiac arrest. CPR was done, ROSC obtained; however patient had fixed and dilated pupils per ER documentation on arrival. CT abdomen/pelvis without contrast in ED revealed a hepatic hematoma measuring 8.6 cm with hemorrhage extending beyond the liver capsule into the right paracolic gutter as well as the pelvis. The patient was emergently taken back to surgery and underwent evacuation of a large hemoperitoneum,. was subsequently admitted to ICU. Pulmonary consultation is requested for evaluation and management of acute hypoxic respiratory failure requiring mechanical ventilator. Past Medical History: Asthma and gallstone pancreatitis Past Surgical History: Laparoscopic cholecystectomy on 01/28/2025 at [facility] Medications: Reviewed. Allergies: No known drug allergies. Family History: No family history of premature CAD. No family history of lung disorders. Social History: Nonsmoker. No alcohol or illicit drug use. Changes from previous H/P or p: No Changes Objective Vitals Vital Signs Date Time Temp Pulse Resp B/P (MAP) Pulse Ox O2 Delivery O2 Flow Rate FiO2 02/06/25 20:21 90 17 104/47 (66) 97 30 02/06/25 20:00 Mechanical Ventilator+ 02/06/25 20:00 98.8 98.8 02/04/25 15:17 15.0 Intake/Output Intake and Output 02/06/25 07:00 Intake Total 1857.25 ml Output Total 1870 ml Balance -12.75 ml IV Total 1857.25 ml Output Urine Total 900 ml Gastric Drainage Total 100 ml Drainage Total 120 ml Other 750 ml Exam Gen.: Patient lying in bed in medical ICU. Intubated on mechanical ventilator. Head: Normocephalic, atraumatic. Eyes: Pupils fixed and blown Ears: Normal external anatomy. Throat: Endotracheal tube and orogastric tube in place. Neck: Supple, trachea midline. Chest: Transmitted breath sounds bilaterally. Decreased air entry bilaterally. No wheezing. Bibasilar crackles. Cardiovascular: Positive S1, positive S2. Regular rate and rhythm. Abdomen: Positive bowel sounds in all 4 quadrants. Soft, nontender, nondistended. : Green in place. Normal external genitalia. Rectal: Deferred. Skin: Warm, dry. Intact. Extremities: 2+ radial pulses bilaterally. No lower extremity edema. Neuro: No responses to painful stimuli. Medications Current Medications Medications Dose Ordered Sig/Serenity Route Start Time Stop Time Status Last Admin Dose Admin Norepinephrine Bitartrate 250 ml @ 3.75 mls/hr Q24H IV 01/29/25 10:00 02/05/25 08:10 3.75 MLS/HR Midazolam HCl 50 ml @ 1 mls/hr Q24H IV 01/29/25 14:15 01/29/25 15:56 5 MLS/HR Fentanyl Citrate 250 ml @ 2.5 mls/hr Q24H IV 01/29/25 14:15 Pantoprazole Sodium 40 mg DAILY IV 01/30/25 10:00 02/06/25 10:08 40 MG Phenylephrine HCl 250 ml @ 30 mls/hr Q8H20M IV 01/29/25 19:30 01/30/25 01:39 116.25 MLS/HR Levalbuterol HCl 0.625 mg Q4HR PRN NEB 01/29/25 20:00 02/02/25 06:23 0.625 MG Ipratropium [place] 0.5 mg Q4HPRN PRN NEB 01/29/25 20:00 02/02/25 06:23 0.5 MG Epinephrine HCl 250 ml @ 7.5 mls/hr Q24H IV 01/30/25 00:15 Vasopressin 20 units/Sodium Chloride 100 ml @ 9 mls/hr Q11H7M IV 01/30/25 07:30 02/03/25 13:09 9 MLS/HR Amino Acids 0 ml @ 0 mls/hr PER PHARMACY IV 02/01/25 11:15 Diagnostic Test (Pha) 1 strip Q6HR 02/01/25 18:00 02/06/25 17:17 1 STRIP Insulin Human Regular FOLLOW SLIDING SCALE Q6HR SC 02/01/25 18:00 02/02/25 11:36 2 UNITS Dextrose 50 ml UD IV 02/01/25 12:30 Albumin Human 100 ml @ 100 mls/hr PRN PRN IV 02/02/25 09:45 02/05/25 11:13 100 MLS/HR Epoetin Gunnar-epbx 4,000 unit MWF@2100 SC 02/03/25 21:00 02/05/25 21:42 4,000 UNIT Piperacillin Sod/ Tazobactam Sod 100 ml @ 25 mls/hr Q8HR IV 02/03/25 14:00 02/06/25 22:02 25 MLS/HR Vancomycin HCl 0 ml @ 0 mls/hr UD IV 02/04/25 09:00 Sodium Chloride 10 ml QSHIFT@10,22 IV 02/04/25 22:00 02/06/25 22:02 10 ML Neomycin/ Polymyxin/ Bacitracin 1 applic DAILY TOP 02/06/25 10:00 02/06/25 10:07 1 APPLIC Fat Emulsion Intravenous 50 ml/ Potassium Phosphate 11 meq/ Calcium Gluconate 4.6 meq/ Multivitamins 10 ml/Amino Acids/ Dextrose 1,272.3924 ml @ 53 mls/hr Q24H1M IV 02/06/25 22:00 02/07/25 21:59 02/06/25 22:03 53 MLS/HR Bumetanide 2 mg BIDD IV 02/06/25 18:00 02/06/25 18:42 2 MG Laboratory Results Laboratory Tests 02/06/25 03:23 Chemistry Test 02/06/25 03:23 Albumin 3.0 g/dL (3.2-4.8) L Calcium Level 8.6 mg/dL (8.7-10.4) L Magnesium Level 2.4 mg/dL (1.6-2.6) Phosphorus Level 2.5 mg/dL (2.4-5.1) Total Protein 5.2 g/dL (5.7-8.2) L Coagulation Test 02/06/25 03:23 Prothrombin Time 11.6 sec (9.3-11.8) Prothrombin Time INR 1.11 (0.9-1.15) Activated Partial Thromboplast Time 34.5 SEC (24.5-34.5) LFT Test 02/06/25 03:23 Alanine Aminotransferase (ALT) 163 U/L (7-40) H Alkaline Phosphatase 317 U/L (46-116) H Aspartate Amino Transferase (AST) 237 U/L (13-40) H Total Bilirubin 1.1 mg/dL (0.2-1.0) H Urinalysis Test 01/29/25 09:54 01/29/25 14:15 Urine Color Light-orange (Yellow) Urine Clarity Turbid (Clear) H Urine pH 5.5 (5.0-9.0) Urine Specific [place] 1.017 (1.001-1.035) Urine Protein 2+ (Negative) H Urine Ketones Trace (Negative) Urine Blood 3+ /uL (Negative) H Urine Nitrite Negative (Negative) Urine Bilirubin Negative (Negative) Urine Urobilinogen Normal mg/dL (Negative) Urine Leukocyte Esterase Negative /uL (Negative) Urine RBC 130 /hpf (0 - 3) Urine Microscopic WBC < 1 /HPF (0-3) Urine Squamous Epithelial Cells Mod /hpf (<5) Urine Amorphous Crystals Few /hpf (None Seen) Urine Bacteria Few /hpf (None Seen) H Urine Glucose Trace mg/dL (Normal) Urine Creatinine 19.64 mg/dL (30.0-125.0) L Urine Sodium 98 mmol/L (40-220) Urine Total Protein 245.5 mg/dL (1-14) H Blood Gas Results Test 02/06/25 07:37 Arterial Blood pH 7.474 (7.350-7.450) FiO2 % 30.0 Microbiology Microbiology Date/Time Source Procedure Growth Status 02/02/25 22:00 Urine - [place] Urine Culture - Final Complete 02/02/25 19:20 Blood Blood Culture - Final Staphylococcus epidermidis Complete 01/30/25 00:00 Nose MRSA Screen - Final Complete 01/29/25 10:43 Sputum Gram Stain - Final Complete 01/29/25 10:43 Sputum Respiratory Culture - Final Complete Assessment/Plan Assessment/Plan Impression: Acute hypoxic respiratory failure On mechanical ventilator Status post cardiac arrest Possible anoxic brain injury NSTEMI, possible type 2 Hypovolemic shock Acute kidney injury secondary to hypovolemic shock Obesity, BMI 30.4 Multiorgan failure Events: Remains on vent support AC mode with RR 14, VT 500, PEEP 7, FiO2 30% Patient noted to be overbreathing the vent Absent brainstem reflexes Signs of anoxic brain injury Poor chance of meaningful recovery. Second opinion Neurology consult recs appreciated - findings not c/w brain per Neuro ABG notable for alkalemia d/t metabolic alkalosis. Chest x-ray demonstrates small right pleural effusion. Devices in place. Continue antibiotics - Zosyn. Monitor cultures Continue bronchodilators Continue Protonix for GI ppx TPN for nutritional support Continue Bumex drip for diuresis Follow up Nephrology recs Monitor renal function Monitor electrolytes. Supplement as necessary. Monitor ins and outs. TPN for nutritional support Monitor hemoglobin - 9.6 g/dL Transfuse if less than 7.0 g/dL Note, patient with pupils fixed and blown NM brain perfusion study c/w anoxic brain injury Poor chance of meaningful recovery Neurology recommendations appreciated Consider LTAC vs. trach/PEG vs. compassionate extubation. Labs and imaging reviewed. Rest of plan as noted below. Plan: s/p intubation on mechanical ventilator On assist control with respiratory rate of 14, tidal volume 500, PEEP of 7, FiO2 of 30% Titrate FIO2 to keep O2 saturation above 92%. VAP bundle Daily ABG and CXR while intubated. Pressors as necessary for hemodynamic support. Titrate to keep MAP above 65 mmHg/SBP above 90 mmHg. Continue antibiotics. F/u cultures. Blood cultures no growth thus far Sputum culture grew normal oropharyngeal slava. Monitor hemoglobin Monitor renal function due to acute kidney injury. Monitor electrolytes. Supplement as necessary. Continue diuresis per Nephrology Monitor ins and outs Hemodialysis per nephrology Nutritional support. Accu-Cheks, ISS. GI/DVT prophylaxis. Condition: Critical Prognosis: Poor given multiple comorbidities. Rest of plan per hospitalist and other consultants. A total of 35 minutes of critical care time was spent reviewing the patient record, examining the patient, making a diagnostic and therapeutic plan, discussing this plan with the medical personnel, following up on diagnostic studies and following the patient for clinical stability excluding any and all procedures. At least 50% of this time was spent in direct, [id number] contact. Thank you for allowing me to participate in this patient's care. Further recommendations will depend on patient's clinical course. Please do not hesitate to contact me if you have any questions or concerns. This medical document was created using an electronic medical record system with [employer] system. Although this document has been carefully reviewed, there may still be some phonetic and typographical errors. These areas are purely typographical due to imperfections of the software programs, and do not reflect any compromise in the patient's medical care. Plan discussed with: Other (MARY ANN Turner) Date of Service: Feb 06, 2025 Billing Provider: NEHEMIAS BEASLEY MD Common Visit Codes: [id number] INP/OBS CARE(HIGH), [id number] CARE 30-74 MIN NEHEMIAS BEASLEY MD Feb 06, 2025 22:53
[2025-02-07] VITALS (109 sets, daily range): BP systolic 78–204; BP diastolic 40–118; PULSE 81–103; RESP 13–24; TEMP 97–98.6; O2SAT 96–100
[2025-02-07 03:57] LABS: Hematocrit 28.8 % (41.0-53.0); Hemoglobin 9.8 g/dL (13.5-17.5); Mean Corpuscular Hemoglobin 30.0 pg (28.0-32.0); Mean Corpuscular Volume 88.6 fL (80.0-100.0)
[2025-02-07 04:08] LABS: Anion Gap 14 (5-15); BUN/Creatinine Ratio 11.4 (10.0-20.0); Calcium 8.8 mg/dL (8.7-10.4); Carbon Dioxide 28 mmol/L (20-31); Glucose 103 mg/dL (74-106); Magnesium 2.4 mg/dL (1.6-2.6); Sodium 139 mmol/L (136-145)
[2025-02-07 04:12] LABS: Alanine Aminotransferase 125 U/L (7-40); Albumin 2.8 g/dL (3.2-4.8); Alkaline Phosphatase 574 U/L (46-116); Bilirubin, Total 3.2 mg/dL (0.2-1.0); Chloride 97 mmol/L (98-107); Potassium 3.4 mmol/L (3.5-5.1); Total Protein 5.3 g/dL (5.7-8.2)
[2025-02-07 04:14] LABS: Blood Urea Nitrogen 87 mg/dL (9-23)
[2025-02-07 05:13] LABS: Nucleated Red Blood Cells % 1.0 %; Total Cells Counted 100.0 (100)
--- NOTE | 2025-02-07 06:37 | DVHPN2 ---
Progress Note - Dictate Date Seen: Feb 07, 2025 Has the PT tested + for MRSA If YES, has PT been informed?: No Medical Necessity Reason Pt with a Central, PICC or Fol: Yes The following are medically ne: Central Line, Mora Catheter Reason for mora catheter: Nakul. Abd Surgery vital signs Vital Sign Date Time Temp Pulse Resp B/P (MAP) Pulse Ox O2 Delivery O2 Flow Rate FiO2 02/07/25 06:10 83 16 113/60 (77) 97 30 02/07/25 02:33 Mechanical Ventilator+ 02/07/25 00:00 97.7 97.7 Total Intake and Output 02/06/25 02/06/25 02/07/25 15:00 23:00 07:00 Intake Total 556 ml 536 ml 234 ml Output Total 585 ml Balance 556 ml -49 ml 234 ml medications Current Medications Medications Dose Ordered Sig/Serenity Route Start Time Stop Time Status Last Admin Dose Admin Norepinephrine Bitartrate 250 ml @ 3.75 mls/hr Q24H IV 01/29/25 10:00 02/05/25 08:10 3.75 MLS/HR Midazolam HCl 50 ml @ 1 mls/hr Q24H IV 01/29/25 14:15 01/29/25 15:56 5 MLS/HR Fentanyl Citrate 250 ml @ 2.5 mls/hr Q24H IV 01/29/25 14:15 Pantoprazole Sodium 40 mg DAILY IV 01/30/25 10:00 02/06/25 10:08 40 MG Phenylephrine HCl 250 ml @ 30 mls/hr Q8H20M IV 01/29/25 19:30 01/30/25 01:39 116.25 MLS/HR Levalbuterol HCl 0.625 mg Q4HR PRN NEB 01/29/25 20:00 02/02/25 06:23 0.625 MG Ipratropium [place] 0.5 mg Q4HPRN PRN NEB 01/29/25 20:00 02/02/25 06:23 0.5 MG Epinephrine HCl 250 ml @ 7.5 mls/hr Q24H IV 01/30/25 00:15 Vasopressin 20 units/Sodium Chloride 100 ml @ 9 mls/hr Q11H7M IV 01/30/25 07:30 02/03/25 13:09 9 MLS/HR Amino Acids 0 ml @ 0 mls/hr PER PHARMACY IV 02/01/25 11:15 Diagnostic Test (Pha) 1 strip Q6HR 02/01/25 18:00 02/07/25 05:45 1 STRIP Insulin Human Regular FOLLOW SLIDING SCALE Q6HR SC 02/01/25 18:00 02/02/25 11:36 2 UNITS Dextrose 50 ml UD IV 02/01/25 12:30 Albumin Human 100 ml @ 100 mls/hr PRN PRN IV 02/02/25 09:45 02/05/25 11:13 100 MLS/HR Epoetin Gunnar-epbx 4,000 unit MWF@2100 [place] 02/03/25 21:00 02/05/25 21:42 4,000 UNIT Piperacillin Sod/ Tazobactam Sod 100 ml @ 25 mls/hr Q8HR IV 02/03/25 14:00 02/07/25 05:45 25 MLS/HR Vancomycin HCl 0 ml @ 0 mls/hr UD IV 02/04/25 09:00 Sodium Chloride 10 ml QSHIFT@10,22 IV 02/04/25 22:00 02/06/25 22:02 10 ML Neomycin/ Polymyxin/ Bacitracin 1 applic DAILY TOP 02/06/25 10:00 02/06/25 10:07 1 APPLIC Fat Emulsion Intravenous 50 ml/ Potassium Phosphate 11 meq/ Calcium Gluconate 4.6 meq/ Multivitamins 10 ml/Amino Acids/ Dextrose 1,272.3924 ml @ 53 mls/hr Q24H1M IV 02/06/25 22:00 02/07/25 21:59 02/06/25 22:03 53 MLS/HR Bumetanide 2 mg BIDD IV 02/06/25 18:00 02/07/25 05:45 2 MG laboratory and microbiology Laboratory Tests 02/07/25 03:32 Test 02/07/25 03:32 Range/Units Serum Glucose 103 74-106 mg/dL Assessment/Plan Patient was declared brain by Neurology. As patient was breathing over the vent, Neurology second opinion was requested. Awaiting Neurology second opinion Still in ICU. On vent support. Blood pressure stable. Off any pressure support. No gross higher brain reflexes. Pupils are dilated and fixed. No reported arrhythmia overnight If proven Brain , no Cardiac intervention will be successful to change any outcome. Echocardiogram revealed no WMA and also revealed good EF. It also revealed increased Pulmonary Artery Pressure in favor of component of Pulmonary Hypertension. s/p Hemodialysis Received blood and platelet transfusion Brain scan questions brain , needs Neurology follow up Patient is a 24-year-old gentleman who was originally brought to the hospital for post arrest. Patient is seen in postop area. Patient is intubated and on multiple pressor supports. Patient is not source of history. Information was obtained by reviewing the chart, talking to patient's family/mother and communicating with staff and reviewing outside records ([facility]). Patient did have elective outpatient laparoscopic cholecystectomy in [facility] on January 28 2025. As per mother, after going home, patient was feeling very hungry and was eating and drinking a lot. He started feeling abdominal pain with nausea at night and in the morning was short of breath. As per mother: patient has stopped breathing in the morning and family called 911. As per mother, as per guidance of 911, family started CPR until EMS arrived. Patient was intubated and was brought to the hospital by EMS. Since arrival to [facility], patient was seen by surgeon who took the patient to operating room and performed laparotomy (there was hepatic hematoma). Postoperatively, the patient has remained hypotensive. There is signs for multiorgan involvement. Patient was not alert and did not complain of any chest pains. Labs revealed increased troponin. Cardiology is involved for cardiac aspects of care and abnormal troponin. First available EKG reveals sinus tachycardia with no specific ST-T changes. Telemetry had revealed sinus tachycardia throughout the stay. Patient is found to have significant anemia and is receiving blood transfusion at the time of evaluation. It is of note that at the time of evaluation patient does not have any reflexes. Intubated. Mucosa pale. Dilated and fixed pupils, Scattered rhonchi in the lungs. Cardiac: Tachycardic. No murmur. Abdomen is covered by dressing. Extremities do not reveal any edema. Dorsalis pedis is 1+ bilateral. Patient does not respond to any stimuli. Reported past medical history includes asthma and obesity. Reportedly, on January 23, 2025: Patient presented to [facility] for abdominal pain/nausea/vomiting. At that point the problems were ongoing for few weeks. In [facility], CT of the abdomen and MRCP were performed. Patient was seen by GI/surgery. Patient was found to have gallstones. Patient was discharged and later on January 28, 2025 presented back to [facility] for elective laparoscopy cholecystectomy. Patient was discharged home from [facility] after laparoscopic cholecystectomy. As per mother, patient does not have baseline history of any cardiac history. As per mother, patient was using marijuana. Mother denies any previous substance abuse besides marijuana. No specific family history is reported On January 23, 2025, labs in [facility] revealed creatinine of 0.84, hemoglobin of 15.2 and troponin (high sensitive) of <3. At that point EKG was normal WBC: 20.1 - 19.0 - 22.7 - 20.6 - 28.4 - 20.3 - 21.0 - 25.2 - 29.8 - 29.5 - 29.0 - 26.2 - 21.7 - 19.7 - 17.7 - 15.3 - 12.2 Hemoglobin: 8.3 - 6.5 - 12.1 - 11.1 - 12.1 - 9.3 - 9.2 - 9.1 - 8.4 - 9.0 - 9.5 - 8.8 - 8.4 - 8.0 - 9.7 - 9.6 - 9.8 Fibrinogen: 108 - 316 - 537 Creatinine: 4.02 - 3.78 - 3.90 - 3.95 - 4.34 - 5.44 - 6.05 - 6.73 - 7.31 - 7.77 - 6.64 - 7.30 - 4.91 - 5.32 - 7.40 - 5.98 - 7.66 Potassium: 5.6 - 4.6 - 4.8 - 3.9 - 2.9 - 2.9 - 3.6 - 3.8 - 4.9 - 5.4 - 6.0 - 5.1 - 5.3 - 6.1 - 6.0 - 4.6 - 4.4 - 4.3 - 3.5 - 3.4 AST/ALT: 676/871 - 8607/4501 - 1436/0101 - -/1995 - 2500/1990 - 1780/1821 - 808/995 - 586/735 - 456/444 - 312/290 - 237/163 - 215/125 Lactic acid: 17.9 - 17.2 - 11.4 Troponin (high sensitive): 5243 - 6774 - 2845 - 1363 - 7499 TSH: 11.05 Urine Toxicology: positive for Fentanyl and Benzodiazepine Chest x-ray revealed: Lines and Tubes: Endotracheal tube projects 2.2 cm above the meghan. Right internal jugular central venous catheter tip projects over superior vena cava. Lungs: No focal consolidation. Low lung volumes. Pleura: No effusion. No pneumothorax. Cardiomediastinal contours: Unremarkable Bones: No acute osseous abnormality. IMPRESSION: Lines and tubes as above. Low lung volumes. Repeat chest x-ray revealed: IMPRESSION: Lines and tubes in satisfactory position. Mild increased pulmonary vascular congestion Repeat chest xry revealed: IMPRESSION: Lines and tubes in satisfactory position. Mild increased pulmonary vascular congestion Repeat chest xry revealed: IMPRESSION: 1. Low lung volumes with concomitant crowding of the pulmonary vasculature. 2. No evidence of focal consolidation. 3. Lines and tubes unchanged. Repeat chest xry revealed: IMPRESSION: 1. Slight interval retraction of the endotracheal tube such that the tip now projects approximately 4.7 cm above the level of the meghan. Remaining lines and tubes unchanged. 2. Otherwise no significant change compared to prior exam. Repeat chest xry revealed: IMPRESSION: 1. Slight interval advancement of endotracheal tube such that the tip now projects approximately 1.7 cm above the level of the meghan. Remaining lines and tubes unchanged. 2. Otherwise no significant change compared to prior exam. Repeat chest xry revealed: IMPRESSION: 1. Slight interval retraction of the endotracheal tube such that the tip now projects approximately 3.3 cm above the level of the meghan. Remaining lines and tubes unchanged. 2. No evidence of acute cardiopulmonary process. Repeat chest xry revealed: IMPRESSION: 1. Endotracheal tube in appropriate position. Remaining lines and tubes unchanged. 2. No evidence of acute cardiopulmonary process. Repeat chest xry revealed: IMPRESSION: 1. Small right pleural effusion. 2. Lines and tubes unchanged. Repeat chest xry revealed: IMPRESSION: 1. Small right pleural effusion. 2. Lines and tubes unchanged. Brain scan revealed: FINDINGS: Absence of cerebral blood flow is noted along with no brain parenchymal radiotracer uptake. Increased activity is seen in the central face likely representing vascular shunting consistent with the so-called "hot nose" sign. Findings suggest brain however clinical correlation is necessary. IMPRESSION: Findings described above, which would be consistent with brain in the appropriate clinical setting, however clinical correlation is needed. CT of the chest/abdomen/pelvis revealed: IMPRESSION: 1. Hepatic hematoma measuring up to approximately 8.6 cm in greatest dimension, as described above, with hemorrhage extending beyond the liver capsule and into the right pericolic gutter as well as into the pelvis. No definite active arterial bleeding is seen on this exam, although limited evaluation due to the timing of contrast, as this was not a CTA exam. 2. Postsurgical changes of cholecystectomy. 3. Dilated fluid-filled small bowel loops, may be due to postoperative ileus. No small bowel obstruction. 4. Small volume pneumoperitoneum, likely due to recent surgery. Small volume of gas are seen in the upper ventral abdomen from the recent surgery. 5. Dependent atelectasis in the lower lobes. Otherwise, no acute disease in the chest. 6. Endotracheal tube and enteric tube in place. 7. Atrophic right kidney incidentally noted. 8. Additional findings as described above. Critical findings Critical Result: Acute hepatic hematoma with hemorrhage extending beyond the liver capsule into the adjacent portions of the abdomen and into the pelvis as detailed above. Repeat CT of chest/abdomen/pelvis revealed: There is limited interpretation of the chest, abdomen and pelvis without administration of intravenous contrast. Endotracheal tube tip terminates just at the meghan / left main bronchus. Diffuse bilateral pulmonary airspace consolidation bilaterally significantly increased. Bilateral lower lobe lobar consolidation/ atelectasis, increased from prior. Small bilateral pleural effusions. There is extensive edema/ stranding within the upper anterior chest, neck region/supraclavicular region. There is some hyperdensity within this region which could represent components of hematoma / blood products. Heterogeneous appearance of the thyroid gland. Right IJ catheter terminating at the cavoatrial junction. Adrenal glands unremarkable in shape. Perisplenic hematoma. Interval postsurgical changes in the right upper quadrant of the abdomen. There appears to be surgicel/gaseous collection within the previous hematoma cavity, likely representing surgicel. There is a radiopaque density within the resection cavity as well which measures 6.2 x 4.6 cm.. Postoperative changes of the right anterior abdomen with soft tissue emphysema. Small amount of pneumoperitoneum Surgical drainage catheter terminating in the right upper quadrant of the abdomen Right renal parenchymal atrophy. Left kidney demonstrates perinephric edema / stranding. No left hydronephrosis. Nasogastric tube projects towards the distal stomach. Moderate distention small bowel loops. Rectal catheter. Moderate distention of the large bowel loops. Normal appendix. Abdominal aorta normal in caliber. Small amount of ascites fluid/ mesenteric edema. Bladder decompressed by Mora catheter. Soft tissue edema /anasarca. Mesenteric edema. Small amount of ascites fluid. The osseous structures are stable. IMPRESSION: Limited evaluation without contrast. Interval evacuation of the right upper quadrant hematoma. Surgicel within the resection cavity. No significant interval development of new hematoma. There are 2 radiopaque lap pads within the resection cavity . Findings reviewed with Dr. Ledesma at 11:51 a.m. on 01/30/2025 Perisplenic hematoma, similar to previous examination. Extensive bilateral pulmonary airspace consolidation, significantly increased from previous examination. Small bilateral pleural effusions. Right upper quadrant drainage catheter. Pneumoperitoneum. Soft tissue edema / anasarca. Small amount of ascites fluid/ mesenteric edema. Extensive edema within the anterior chest, neck region. Heterogeneous appearance thyroid gland. Other findings as described. CT of the head revealed: IMPRESSION: 1. No evidence of acute intracranial abnormality. Repeat CT of head revealed: FINDINGS: Cerebellar tonsilar herniation. There is sulcal and ventricular effacement. The basal cisterns are effaced. Loss of mario-white matter differentiation is noted. The skull and visible facial bones are intact. The paranasal sinuses, mastoid air cells and middle ear cavities are well-aerated. The soft tissues of the scalp are unremarkable. IMPRESSION: Diffuse cerebral edema with cerebellar tonsillar herniation. Recommend MRI brain for further evaluation. CT of Neck revealed: IMPRESSION: Limited evaluation without contrast. Extensive soft tissue edema within the neck extending into the anterior / upper chest and anterior mediastinum . Retropharyngeal edema. Heterogeneous appearance of the thyroid gland. Inferior cerebellar tonsillar herniation better seen on the prior CT Renal Ultrasound revealed: IMPRESSION: 1. Right kidney not visible. 2. Left kidney is enlarged. 3. No hydronephrosis. Venous duplex of lower ext revealed: IMPRESSION: NO SONOGRAPHIC EVIDENCE FOR DEEP VENOUS THROMBOSIS IN THE RIGHT LOWER EXTREMITY VEINS. EEG reported: This is a remarkably abnormal EEG, this EEG seen in severe cerebral dysfunction due to metabolic/hypoxic encephalopathy or medication effects, unless this is caused by reversible etiology, this EEG is suggestive of a poor prognosis for meaningful recovery, please correlate clinically. Arrival EKG revealed sinus tachycardia with nonspecific ST-T changes Tele reveals sinus tachycardia Echocardiogram revealed: Technically limited study secondary to poor acoustic windows. Left ventricle: Left ventricle was normal-sized with normal systolic function. LVEF was 55-60%. No gross wall motion abnormality was seen. Right ventricle was mildly dilated with normal systolic function. Left atrium was normal-sized. Right atrium was mildly dilated. Aortic valve: Aortic valve was not well visualized. There was no aortic insufficiency/stenosis. There was no mitral regurgitation. There was trace tricuspid regurgitation. Pulmonary valve was not well visualized. IVC was not visualized. Right ventricular systolic pressure was assessed around 48 mm Hg. There was no pericardial effusion. Patient is a 24-year-old gentleman who presented with post arrest. It seems that the patient had hemorrhagic (intra-abdominal) presentation. Patient did have elective laparoscopic cholecystectomy the day before presentation. On the day of presentation, the patient was taken back to operating room and this time Laparotomy was done for hepatic hematoma. Patient does have multiorgan involvement. Clinically there is no brainstem reflexes. Shock liver/acute renal failure is considered. Troponin has been high. EKG did not reveal any STEMI. Presentation could be high troponin secondary to demand physiology. Patient does not have any risk factors for baseline coronary artery disease. In ideal scenario, ischemic workup/cardiac catheterization could be more revealing. Unfortunately, the patient does have acute renal failure which could be worsened by cardiac catheterization at this point. As there was no higher brain functions the suggestion is to wait and see if patient regains any higher brain function. It is of note that during cardiac catheterization, the patient may need some anticoagulation/antiplatelets. At this point patient is having significant anemia/bleeding and receiving blood transfusion and holding off of scenario forcing Anticoagulation/antiplatelets is advised. I had a long discussion with family members and Mother (repeatedly). Clinically patient has multiorgan failure. Secondary to active bleeding, we will avoid anticoagulation/antiplatelets for now. Being managed in ICU. Was taken to OR repeatedly. Still no reflexes. Echocardiogram revealed no WMA and also revealed good EF. It also revealed increased Pulmonary Artery Pressure in favor of component of Pulmonary Hypertension. Review of Echo images revealed good right ventricular systolic function. Not typical for Pulmonary Emboli. Still, PE cannot be ruled out. If PE is ruled out, then it is possible that patient had Pulmonary Hypertension from before (Baseline history of Asthma may actually reflect it). s/p PRBC transfusion (multiple). Being followed by Surgery, Nephrology, Hematology, Pulmonary, Neurology and GI. . Repeat imaging revealed cerebellar tonsillar herniation. Neurology diagnosed Hypoxic/Metabolic Encephalopathy also. EEG findings question meaningful recovery. Neurology declared patient: brain . s/ p Arrest Intra-abdominal bleeding Hepatic hematoma Multiorgan failure, due to shock Shock liver Lactic Acidosis Acute renal failure Acute respiratory failure, on vent support Status post laparotomy Status post laparoscopic cholecystectomy Abnormal troponin, evaluated to reflect possible demand physiology History of gallstones History of asthma Obesity History of marijuana abuse Consumptive Coagulopathy / DIC Pulmonary Hypertension Cerebellar tonsillar Herniation. Encephalopathy, hypoxic/metabolic Renal failure, started on hemodialysis Brain scan questions brain Anoxic Encephalopathy Cardiac suggestion for management: Manage in ICU Follow-up electrolytes and kidney function tests and correct abnormalities Evaluation and management of respiratory failure as per Pulmonary Evaluation and management of Cerebellar tonsillar herniation as per Neurology/surgery V/Q scan could not be completed Patient was declared brain by Neurology. As patient was breathing over the vent, Neurology second opinion was requested. Awaiting Neurology second opinion If proven Brain , no Cardiac intervention will be successful to change any outcome. At least: Anoxic Encephalopathy Echocardiogram revealed no WMA and also revealed good EF. It also revealed increased Pulmonary Artery Pressure in favor of component of Pulmonary Hypertension. Hematology follow up (to comment on prophylaxis / treatment of Pulmonary Emboli) Surgical follow up Nephrology follow up (started on hemodialysis) and Hematology follow up Secondary to active bleeding, we will avoid anticoagulation/antiplatelets for now Long-term prognosis depends on the above and most importantly regaining of the higher brain function: looks very grim Ischemic workup may be considered only after regaining higher brain function or any special change in clinical presentation Further evaluation and management depends on the above and clinical course A total of 75 minutes was spent reviewing the patient record, examining the patient, making a diagnostic and therapeutic plan, discussing this plan with medical personnel, following up on diagnostic studies and following the patient for clinical stability excluding any and all procedures. At least 50% of this time was spent in direct, [id number] contact. Thank you for allowing me to participate in this patient's care. Further recommendations will depend on patient's clinical course. Please do not hesitate to contact me if you have any questions or concerns. This medical document was created using electronic medical record system with [employer] dictation system. Although this document has been carefully reviewed, there may still be some phonetic and typographical errors. These areas are purely typographical due to the imperfection of the software programs, and do not reflect any compromise in the patient's medical care. Dietary Evaluation Review Recommendations by RD: PPN/TPN Comments: 1) Increase TPN rate to meet at least 75% of estimated daily needs 2) Advance to renal cardiac diet when medically feasible, pending ST approval 3) Follow-up with cardiology, pulmonology, nephrology, neurology, and gastroenterology 4) Continue to monitor I&O, labs, and skin integrity Expected Outcomes/Goals: 1) nutritional support to meet at least 75% of estimated daily needs 2) labs and wound to improve 3) diet to advance 4) gradual wt loss 5) f/u in 2-3 days Plan discussed with: Other (nurse) KATHLEEN COHEN MD Feb 07, 2025 06:37
--- NOTE | 2025-02-07 07:13 | DVHPN2 ---
Progress Note Date Seen: Feb 07, 2025 Has the PT tested + for MRSA If YES, has PT been informed?: No Medical Necessity Reason Pt with a Central, PICC or Fol: Yes The following are medically ne: Central Line, Mora Catheter Reason for mora catheter: Nakul. Abd Surgery Subjective Review of Systems Pt seen this morning. Per RN no events overnight. 40 mL drain output Objective vital signs Vital Sign Date Time Temp Pulse Resp B/P (MAP) Pulse Ox O2 Delivery O2 Flow Rate FiO2 02/07/25 06:10 83 16 113/60 (77) 97 30 02/07/25 02:33 Mechanical Ventilator+ 02/07/25 00:00 97.7 97.7 Total Intake and Output 02/06/25 02/06/25 02/07/25 15:00 23:00 07:00 Intake Total 556 ml 536 ml 234 ml Output Total 585 ml Balance 556 ml -49 ml 234 ml medications Current Medications Medications Dose Ordered Sig/Serenity Route Start Time Stop Time Status Last Admin Dose Admin Norepinephrine Bitartrate 250 ml @ 3.75 mls/hr Q24H IV 01/29/25 10:00 02/05/25 08:10 3.75 MLS/HR Midazolam HCl 50 ml @ 1 mls/hr Q24H IV 01/29/25 14:15 01/29/25 15:56 5 MLS/HR Fentanyl Citrate 250 ml @ 2.5 mls/hr Q24H IV 01/29/25 14:15 Pantoprazole Sodium 40 mg DAILY IV 01/30/25 10:00 02/06/25 10:08 40 MG Phenylephrine HCl 250 ml @ 30 mls/hr Q8H20M IV 01/29/25 19:30 01/30/25 01:39 116.25 MLS/HR Levalbuterol HCl 0.625 mg Q4HR PRN NEB 01/29/25 20:00 02/02/25 06:23 0.625 MG Ipratropium [place] 0.5 mg Q4HPRN PRN NEB 01/29/25 20:00 02/02/25 06:23 0.5 MG Epinephrine HCl 250 ml @ 7.5 mls/hr Q24H IV 01/30/25 00:15 Vasopressin 20 units/Sodium Chloride 100 ml @ 9 mls/hr Q11H7M IV 01/30/25 07:30 02/03/25 13:09 9 MLS/HR Amino Acids 0 ml @ 0 mls/hr PER PHARMACY IV 02/01/25 11:15 Diagnostic Test (Pha) 1 strip Q6HR 02/01/25 18:00 02/07/25 05:45 1 STRIP Insulin Human Regular FOLLOW SLIDING SCALE Q6HR SC 02/01/25 18:00 02/02/25 11:36 2 UNITS Dextrose 50 ml UD IV 02/01/25 12:30 Albumin Human 100 ml @ 100 mls/hr PRN PRN IV 02/02/25 09:45 02/05/25 11:13 100 MLS/HR Epoetin Gunnar-epbx 4,000 unit MWF@2100 [place] 02/03/25 21:00 02/05/25 21:42 4,000 UNIT Piperacillin Sod/ Tazobactam Sod 100 ml @ 25 mls/hr Q8HR IV 02/03/25 14:00 02/07/25 05:45 25 MLS/HR Vancomycin HCl 0 ml @ 0 mls/hr UD IV 02/04/25 09:00 Sodium Chloride 10 ml QSHIFT@10,22 IV 02/04/25 22:00 02/06/25 22:02 10 ML Neomycin/ Polymyxin/ Bacitracin 1 applic DAILY TOP 02/06/25 10:00 02/06/25 10:07 1 APPLIC Fat Emulsion Intravenous 50 ml/ Potassium Phosphate 11 meq/ Calcium Gluconate 4.6 meq/ Multivitamins 10 ml/Amino Acids/ Dextrose 1,272.3924 ml @ 53 mls/hr Q24H1M IV 02/06/25 22:00 02/07/25 21:59 02/06/25 22:03 53 MLS/HR Bumetanide 2 mg BIDD IV 02/06/25 18:00 02/07/25 05:45 2 MG Examination Neuro. Unchanged. Dilated fixed pupils. No reflexes. CV. Normal HR 80's and normotensive. Hemodynamically stable. LSCV catheter exit site with dry blood stain.No erythema. Pulmonary: Intubated with mechanical ventilator support 500/14/30%/+7. RR 14 GI: Soft, obese, non distended and non tender. Dressing C/D/I. Drain with scant sanguineous fluid. 40 mL output overnight. OGT in place. Bilious fluid within, low output. . Mora catheter in place. Extremities; No edema Resolved facial and neck edema. Mild orbital edema laboratory and microbiology Laboratory Tests 02/07/25 03:32 Test 02/07/25 03:32 Range/Units Serum Glucose 103 74-106 mg/dL Microbiology Date/Time Source Procedure Growth Status 02/02/25 22:00 Urine - [place] Urine Culture - Final Complete 02/02/25 19:20 Blood Blood Culture - Final Staphylococcus epidermidis Complete 01/30/25 00:00 Nose MRSA Screen - Final Complete 01/29/25 10:43 Sputum Gram Stain - Final Complete 01/29/25 10:43 Sputum Respiratory Culture - Final Complete Labs and/or images reviewed: Labs reviewed by me Problem List/Assessment/Plan Problems(with codes): (1) Thrombocytopenia (2) Cerebral edema (3) Tonsillar hernia into foramen magnum (4) Shock liver (5) Ventilator dependent (6) ARF (acute renal failure) Problem List/Assessment/Plan Neuro: Appreciate neurology input and assistance. CT revealed Cerebral edema and tonsillar herniation.EEG no electric activity. Cerebral perfusion study confirmed no perfusion radiographically consistent with brain , concordant with initial clinical diagnosis and EEG. However, pt has demonstrated brain stem function as he is breathing over vent set rate of 14. RR witnessed up to 20s by family. Pt has been identified as organ donor. However, given breathing over vent set RR, he is demonstrating some neurological activity which voids previous brain assessment. [employer] sales representative has been informed and process has been placed on hold.Pt family requested second neurology opinion. Dr. Meneses evaluated the patient. He then informed the family Mother, brother present and sister (Angely) on telephone) about his findings being concordant with previous assessments. They are aware that the patient's prognosis is poor with regards to meaningful recovery, that he will likely remain in a comatose state. I was present during the examination and discussion At the completion of the discussion, they were given time for questions. they had none. In the evening mother asked for Dr. Meneses to speak to pt's sister (Angely), as she had some questions. I can't provide is personal number without his authorization. However, I provided his office number and also told her I would try to facilitate a call from Dr. Zaira Au. CV: Hemodynamic instability secondary to hemorrhagic shock. Resolved. Elevated troponin, likely secondary and/or worsened by hemodynamic stress and CPR. Can't rule out ischemia. Cardiology assistance appreciated. Mechanical DVT prophylaxis. Unlikely PE (can't rulet it out) but patient oxygenating well, no tachycardia. Pulmonary hypertension possibly unknowingly preexistent. Pulmonary: VDRF. Continue ventilator. Appreciate pulmonary medicine assistance. CXR small R pleural effusion. Pending today's CXR and ABG. Will have a discussion with family to discuss course of action. Pt's mother had previously stated she did not want the patient to remain on PVS (coma) as she didn't want to prolong his suffering. However, per RN. After conversation with Branden Gray (we had already left) pt's mother made a comment with regards to her thoughts moving forward seemingly wanting to continue with full code, in which case, he will need a tracheostomy. GI: NPO. Continue TPN. Continue GI prophylaxis. Hepatic shock, transaminases continues improving, although TB and ALP slightly higher. Appreciate GI assistance. May need PEG/gastrostomy. A discussion will be held with pt's family to determine course of action. Seems mother is leaning towards continuing care, in spite of previously stating she would not want to prolong his suffering if he remained in a coma. . ARF secondary to hemorrhagic shock. Strict I&O. Mora to gravity. Appreciate nephrology assistance. Replace/correct electrolytes. HD Bumex and IVFs per nephrology. Heme/ID. Hemorrhagic shock resolved. Drain with sanguineous appearing output. Appears to have intermittent bleeding. Bled from PICC site yesterday, currently no bleeding. Blood stain at LSCV HD catheter site. However, Hgb remains stable. Thrombocytopenia, remains stable. Possible consumptive and compounded with hepatic shock, lack of thrombopoietin and uremia. Plts >90. Minimizing blood draw frequency to avoid worsening anemia. Will reserve blood draws for daily and only if clinically indicated at any given moment. Repeat labs AM. Appreciate hematology assistance. Leukocytosis continues improving. Repeat set of Bld Cx Staph epi, sensitive to Vancomycin renal dose. Continue Zosyn and Vancomycin. Vancomycin adjustment by pharmacy. Endocrine: Tight glycemic control. Skin: Skin care and pressure ulcer precautions. Plan discussed with: Other (RN) My Orders My Orders Orders - JITENDRA ZAMORA MD Procedure Category Date Status Time Amino Acid PHA 02/06/25 In Process Infusion... W/Fat 22:00 Tpn Per Pharmacy YANET 02/06/25 In Process 10:28 Abg W/ Co-Ox RT 02/07/25 Logged 05:29 Dietary Evaluation Review Recommendations by RD: PPN/TPN Comments: 1) Increase TPN rate to meet at least 75% of estimated daily needs 2) Advance to renal cardiac diet when medically feasible, pending ST approval 3) Follow-up with cardiology, pulmonology, nephrology, neurology, and gastroenterology 4) Continue to monitor I&O, labs, and skin integrity Expected Outcomes/Goals: 1) nutritional support to meet at least 75% of estimated daily needs 2) labs and wound to improve 3) diet to advance 4) gradual wt loss 5) f/u in 2-3 days JITENDRA ZAMORA MD Feb 07, 2025 07:13
[2025-02-07 08:25] LABS: Base Excess 2.6 mmol/L (-2.0-3.0)
[2025-02-07] MEDS ORDERED: ALBUMIN 25% 100 ML IV PRN (10:00)
[2025-02-07] MEDS: NOREPINEPHRINE 8 MG/250ML KIT 250 ML IV SCH (10:20)
--- NOTE | 2025-02-07 14:10 | DVHPN2 ---
Progress Note - Dictate Date Seen: Feb 07, 2025 Has the PT tested + for MRSA If YES, has PT been informed?: No Medical Necessity Reason Pt with a Central, PICC or Fol: Yes The following are medically ne: Central Line, Mora Catheter Reason for mora catheter: Nakul. Abd Surgery Subjective Intubated, unresponsive, isovolemic dialysis treatment this morning noteable for labile swings in blood pressure. vital signs Vital Sign Date Time Temp Pulse Resp B/P (MAP) Pulse Ox O2 Delivery O2 Flow Rate FiO2 02/07/25 12:00 84 02/07/25 12:00 30 02/07/25 12:00 97.0 18 151/83 (105) 98 97.0 163/87 (112) 02/07/25 12:00 Mechanical Ventilator+ Total Intake and Output 02/06/25 02/06/25 02/07/25 15:00 23:00 07:00 Intake Total 556 ml 536 ml 524 ml Output Total 585 ml 490 ml Balance 556 ml -49 ml 34 ml medications Current Medications Medications Dose Ordered Sig/Serenity Route Start Time Stop Time Status Last Admin Dose Admin Midazolam HCl 50 ml @ 1 mls/hr Q24H IV 01/29/25 14:15 01/29/25 15:56 5 MLS/HR Fentanyl Citrate 250 ml @ 2.5 mls/hr Q24H IV 01/29/25 14:15 Pantoprazole Sodium 40 mg DAILY IV 01/30/25 10:00 02/07/25 09:12 40 MG Phenylephrine HCl 250 ml @ 30 mls/hr Q8H20M IV 01/29/25 19:30 01/30/25 01:39 116.25 MLS/HR Levalbuterol HCl 0.625 mg Q4HR PRN NEB 01/29/25 20:00 02/02/25 06:23 0.625 MG Ipratropium [place] 0.5 mg Q4HPRN PRN NEB 01/29/25 20:00 02/02/25 06:23 0.5 MG Epinephrine HCl 250 ml @ 7.5 mls/hr Q24H IV 01/30/25 00:15 Vasopressin 20 units/Sodium Chloride 100 ml @ 9 mls/hr Q11H7M IV 01/30/25 07:30 02/03/25 13:09 9 MLS/HR Amino Acids 0 ml @ 0 mls/hr PER PHARMACY IV 02/01/25 11:15 Diagnostic Test (Pha) 1 strip Q6HR 02/01/25 18:00 02/07/25 12:34 1 STRIP Insulin Human Regular FOLLOW SLIDING SCALE Q6HR SC 02/01/25 18:00 02/02/25 11:36 2 UNITS Dextrose 50 ml UD IV 02/01/25 12:30 Albumin Human 100 ml @ 100 mls/hr PRN PRN IV 02/02/25 09:45 02/07/25 23:59 02/07/25 11:25 100 MLS/HR Epoetin Gunnar-epbx 4,000 unit MWF@2100 [place] 02/03/25 21:00 02/05/25 21:42 4,000 UNIT Piperacillin Sod/ Tazobactam Sod 100 ml @ 25 mls/hr Q8HR IV 02/03/25 14:00 02/07/25 05:45 25 MLS/HR Vancomycin HCl 0 ml @ 0 mls/hr UD IV 02/04/25 09:00 Sodium Chloride 10 ml QSHIFT@10,22 IV 02/04/25 22:00 02/07/25 09:12 10 ML Neomycin/ Polymyxin/ Bacitracin 1 applic DAILY TOP 02/06/25 10:00 02/07/25 09:11 1 APPLIC Fat Emulsion Intravenous 50 ml/ Potassium Phosphate 11 meq/ Calcium Gluconate 4.6 meq/ Multivitamins 10 ml/Amino Acids/ Dextrose 1,272.3924 ml @ 53 mls/hr Q24H1M IV 02/06/25 22:00 02/07/25 21:59 02/06/25 22:03 53 MLS/HR Bumetanide 2 mg BIDD IV 02/06/25 18:00 02/07/25 05:45 2 MG Albumin Human 100 ml @ 100 mls/hr ONCE PRN IV 02/07/25 10:00 02/07/25 23:59 Fat Emulsion Intravenous 50 ml/ Potassium Chloride 10 meq/ Potassium Phosphate 5 meq/ Calcium Gluconate 4 meq/Magnesium Sulfate 2 meq/ Multivitamins 10 ml/Amino Acids/ Dextrose 1,175.2385 ml @ 49 mls/hr Q24H IV 02/07/25 22:00 9/27/25 21:59 Norepinephrine Bitartrate 250 ml @ 0.938 mls/ hr Q24H IV 02/07/25 11:30 02/07/25 10:30 0.938 MLS/HR objective gen: intubated, lungs: occ ronchi cvs: no rub ext: trace edema laboratory and microbiology Laboratory Tests 02/07/25 03:32 Test 02/07/25 03:32 Range/Units Serum Glucose 103 74-106 mg/dL Assessment/Plan Problem List/Assessment/Plan 1) HARLEEN / ischemic ATN. 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 4) Respiratory failure REC: - will continue to monitor for signs of meaningful kidney recovery - daily evaluation for [facility] needs Dietary Evaluation Review Recommendations by RD: PPN/TPN Comments: 1) Increase TPN rate to meet at least 75% of estimated daily needs 2) Advance to renal cardiac diet when medically feasible, pending ST approval 3) Follow-up with cardiology, pulmonology, nephrology, neurology, and gastroenterology 4) Continue to monitor I&O, labs, and skin integrity Expected Outcomes/Goals: 1) nutritional support to meet at least 75% of estimated daily needs 2) labs and wound to improve 3) diet to advance 4) gradual wt loss 5) f/u in 2-3 days Plan discussed with: Other JACINDA RUSH MD Feb 07, 2025 14:10
[2025-02-07] MEDS: POTASSIUM CHL 20MEQ/100ML 100 ML IV ONE (14:18)
--- NOTE | 2025-02-07 16:11 | DVHPN2 ---
Progress Note Date Seen: Feb 07, 2025 Has the PT tested + for MRSA If YES, has PT been informed?: No Medical Necessity Reason Pt with a Central, PICC or Fol: Yes The following are medically ne: Central Line, Mora Catheter Reason for mora catheter: Nakul. Abd Surgery Subjective Review of Systems Pt seen again. Mother and brother at the bedside. Per RN has had a labile blood pressure, becoming hypotensive (SBP 80s) and hypertensive (190s) during HD. Required Levophed for some period of time. Currently off. Objective vital signs Vital Sign Date Time Temp Pulse Resp B/P (MAP) Pulse Ox O2 Delivery O2 Flow Rate FiO2 02/07/25 14:27 84 19 137/76 96 30 02/07/25 12:00 97.0 97.0 02/07/25 12:00 Mechanical Ventilator+ Total Intake and Output 02/06/25 02/06/25 02/07/25 15:00 23:00 07:00 Intake Total 556 ml 536 ml 524 ml Output Total 585 ml 490 ml Balance 556 ml -49 ml 34 ml medications Current Medications Medications Dose Ordered Sig/Serenity Route Start Time Stop Time Status Last Admin Dose Admin Midazolam HCl 50 ml @ 1 mls/hr Q24H IV 01/29/25 14:15 01/29/25 15:56 5 MLS/HR Fentanyl Citrate 250 ml @ 2.5 mls/hr Q24H IV 01/29/25 14:15 Pantoprazole Sodium 40 mg DAILY IV 01/30/25 10:00 02/07/25 09:12 40 MG Phenylephrine HCl 250 ml @ 30 mls/hr Q8H20M IV 01/29/25 19:30 01/30/25 01:39 116.25 MLS/HR Levalbuterol HCl 0.625 mg Q4HR PRN NEB 01/29/25 20:00 02/02/25 06:23 0.625 MG Ipratropium [place] 0.5 mg Q4HPRN PRN NEB 01/29/25 20:00 02/02/25 06:23 0.5 MG Epinephrine HCl 250 ml @ 7.5 mls/hr Q24H IV 01/30/25 00:15 Vasopressin 20 units/Sodium Chloride 100 ml @ 9 mls/hr Q11H7M IV 01/30/25 07:30 02/03/25 13:09 9 MLS/HR Amino Acids 0 ml @ 0 mls/hr PER PHARMACY IV 02/01/25 11:15 Diagnostic Test (Pha) 1 strip Q6HR 02/01/25 18:00 02/07/25 12:34 1 STRIP Insulin Human Regular FOLLOW SLIDING SCALE Q6HR SC 02/01/25 18:00 02/02/25 11:36 2 UNITS Dextrose 50 ml UD IV 02/01/25 12:30 Albumin Human 100 ml @ 100 mls/hr PRN PRN IV 02/02/25 09:45 02/07/25 23:59 02/07/25 11:25 100 MLS/HR Epoetin Gunnar-epbx 4,000 unit MWF@2100 [place] 02/03/25 21:00 02/05/25 21:42 4,000 UNIT Piperacillin Sod/ Tazobactam Sod 100 ml @ 25 mls/hr Q8HR IV 02/03/25 14:00 02/07/25 15:07 25 MLS/HR Vancomycin HCl 0 ml @ 0 mls/hr UD IV 02/04/25 09:00 Sodium Chloride 10 ml QSHIFT@10,22 IV 02/04/25 22:00 02/07/25 09:12 10 ML Neomycin/ Polymyxin/ Bacitracin 1 applic DAILY TOP 02/06/25 10:00 02/07/25 09:11 1 APPLIC Fat Emulsion Intravenous 50 ml/ Potassium Phosphate 11 meq/ Calcium Gluconate 4.6 meq/ Multivitamins 10 ml/Amino Acids/ Dextrose 1,272.3924 ml @ 53 mls/hr Q24H1M IV 02/06/25 22:00 02/07/25 21:59 02/06/25 22:03 53 MLS/HR Bumetanide 2 mg BIDD IV 02/06/25 18:00 02/07/25 05:45 2 MG Albumin Human 100 ml @ 100 mls/hr ONCE PRN IV 02/07/25 10:00 02/07/25 23:59 Fat Emulsion Intravenous 50 ml/ Potassium Chloride 10 meq/ Potassium Phosphate 5 meq/ Calcium Gluconate 4 meq/Magnesium Sulfate 2 meq/ Multivitamins 10 ml/Amino Acids/ Dextrose 1,175.2385 ml @ 49 mls/hr Q24H IV 02/07/25 22:00 02/08/25 21:59 Norepinephrine Bitartrate 250 ml @ 0.938 mls/ hr Q24H IV 02/07/25 11:30 02/07/25 10:20 0.938 MLS/HR Examination Neuro. Unchanged. Dilated fixed pupils. No reflexes. CV. Normal HR 80's and normotensive. Hemodynamically stable. LSCV catheter exit site with stable dry blood stain. RN instructed to change. Pulmonary: Intubated with mechanical ventilator support %/+7. RR 14 GI: Soft, obese, non distended and non tender. Incision and dressing C/D/I. Drain with scant serosanguineous fluid. OGT in place. Bilious fluid within, low output. . Mora catheter in place. Extremities; No edema Resolved facial and neck edema. Mild orbital edema laboratory and microbiology Laboratory Tests 02/07/25 03:32 Test 02/07/25 03:32 Range/Units Serum Glucose 103 74-106 mg/dL Microbiology Date/Time Source Procedure Growth Status 02/02/25 22:00 Urine - [place] Urine Culture - Final Complete 02/02/25 19:20 Blood Blood Culture - Final Staphylococcus epidermidis Complete 01/30/25 00:00 Nose MRSA Screen - Final Complete 01/29/25 10:43 Sputum Gram Stain - Final Complete 01/29/25 10:43 Sputum Respiratory Culture - Final Complete Problem List/Assessment/Plan Problems(with codes): (1) Thrombocytopenia (2) Cerebral edema (3) Tonsillar hernia into foramen magnum (4) Shock liver (5) Ventilator dependent (6) ARF (acute renal failure) Problem List/Assessment/Plan Neuro: Appreciate neurology input and assistance. CT revealed Cerebral edema and tonsillar herniation.EEG no electric activity. Cerebral perfusion study confirmed no perfusion radiographically consistent with brain , concordant with initial clinical diagnosis and EEG. However, pt has demonstrated brain stem function as he is breathing over vent set rate of 14. RR witnessed up to 20s by family. Pt has been identified as organ donor. However, given breathing over vent set RR, he is demonstrating some neurological activity which voids previous brain assessment. [facility] sales representative has been informed and process has been placed on hold.Pt family requested second neurology opinion. Dr. Meneses evaluated the patient. He then informed the family Mother, brother present and sister (Angely) on telephone) about his findings being concordant with previous assessments. They are aware that the patient's prognosis is poor with regards to meaningful recovery, that he will likely remain in a comatose state. I was present during the examination and discussion At the completion of the discussion, they were given time for questions. they had none. In the evening mother asked for Dr. Meneses to speak to pt's sister (Angely), as she had some questions.Dr. Meneses called Angely and addressed her questions. Angely and pt's mother are requesting a neurosurgery consultation to address some questions. Unfortunately those services are not available in this institution.An attempt was previously made by casework manager and it was rejected by [facility] secondary to herniation has already occurred. However, casework manager will find out if she can have that arrangement done with insurance for tele neurosurgery, if services availabel and ultimately approved by insurance. However, she isn't optimistic this will be possible, but she will do her best. She will have some information on Monday morning, and we will reconvene in the afternoon to discuss limited options. I was also asked by Angely and mother to contact a cousin (Minda) to update her and answer any questions she may have. I called, she did not pickup. A message was left on her vm with instructions on how to get a hold of me. CV: Hemodynamic instability secondary to hemorrhagic shock. Resolved. Elevated troponin, likely secondary and/or worsened by hemodynamic stress and CPR. Can't rule out ischemia. Cardiology assistance appreciated. Mechanical DVT prophylaxis. Unlikely PE (can't rulet it out) but patient oxygenating well, no tachycardia. Pulmonary hypertension possibly unknowingly preexistent. Hyper/hypotension possibly autonomic dysregulation from brain injury. Currently stable. Will continue to observe. Pulmonary: VDRF. Continue ventilator. Appreciate pulmonary medicine assistance. CXR small R pleural effusion. Pending today's CXR and ABG. Will have a discussion with family to discuss course of action. Pt's mother had previously stated she did not want the patient to remain on PVS (coma) as she didn't want to prolong his suffering. However, per RN. After conversation with Branden Gray (we had already left) pt's mother made a comment with regards to her thoughts moving forward seemingly wanting to continue with full code, in which case, he will need a tracheostomy. GI: NPO. Continue TPN. Continue GI prophylaxis. Hepatic shock, transaminases continues improving, although TB and ALP slightly higher. Appreciate GI assistance. May need PEG/gastrostomy. A discussion will be held with pt's family to determine course of action. Seems mother is leaning towards continuing care, in spite of previously stating she would not want to prolong his suffering if he remained in a coma. . ARF secondary to hemorrhagic shock. Strict I&O. Mora to gravity. Appreciate nephrology assistance. Replace/correct electrolytes. HD Bumex and IVFs per nephrology. Heme/ID. Hemorrhagic shock resolved. Drain with thin serosanguineous fluid. Currently, no bleeding. Hgb remains stable. Thrombocytopenia, improving. Plts >90. Minimizing blood draw frequency to avoid worsening anemia. Will reserve blood draws for daily and only if clinically indicated at any given moment. Repeat labs AM. Appreciate hematology assistance. Leukocytosis continues improving. Repeat set of Bld Cx Staph epi, sensitive to Vancomycin renal dose. Continue Zosyn and Vancomycin. Vancomycin adjustment by pharmacy. Endocrine: Tight glycemic control. Skin: Skin care and pressure ulcer precautions. Plan discussed with: Other (RN, mother, brother and Angely (over telephone)) My Orders My Orders Orders - JITENDRA ZAMORA MD Procedure Category Date Status Time Abg W/ Co-Ox RT 02/07/25 Logged 05:29 Abg W/ Co-Ox RT 02/07/25 Logged 05:00 Abg W/ Co-Ox RT 02/08/25 Logged 05:00 Abg W/ Co-Ox RT 02/09/25 Logged 05:00 Abg W/ Co-Ox RT 02/10/25 Logged 05:00 Abg W/ Co-Ox RT 02/11/25 Logged 05:00 Abg W/ Co-Ox RT 02/12/25 Logged 05:00 Abg W/ Co-Ox RT 02/13/25 Logged 05:00 Abg W/ Co-Ox RT 02/14/25 Logged 05:00 Complete Blood Count LAB 02/08/25 Verified 04:00 Comprehensive LAB 02/08/25 Verified Metabolic Panel 04:00 Vancomycin,Random LAB 02/08/25 Verified 04:00 Amino Acid PHA 02/07/25 In Process Infusion... W/Fat 22:00 Magnesium LAB 02/08/25 Verified 04:00 Phosphorus LAB 02/08/25 Verified 04:00 Tpn Per Pharmacy YANET 02/07/25 In Process 22:00 Dietary Evaluation Review Recommendations by RD: PPN/TPN Comments: 1) Increase TPN rate to meet at least 75% of estimated daily needs 2) Advance to renal cardiac diet when medically feasible, pending ST approval 3) Follow-up with cardiology, pulmonology, nephrology, neurology, and gastroenterology 4) Continue to monitor I&O, labs, and skin integrity Expected Outcomes/Goals: 1) nutritional support to meet at least 75% of estimated daily needs 2) labs and wound to improve 3) diet to advance 4) gradual wt loss 5) f/u in 2-3 days JITENDRA ZAMORA MD Feb 07, 2025 16:11
--- NOTE | 2025-02-07 17:25 | DVHPNRES ---
Progress Note Date Seen: Feb 07, 2025 Resident Creating Document: ARNOLD MUHAMMAD RESDIENT Has the PT tested + for MRSA If YES, has PT been informed?: No Medical Necessity Reason Pt with a Central, PICC or Fol: Yes The following are medically ne: Central Line, Mora Catheter Reason for mora catheter: Nakul. Abd Surgery Subjective Review of Systems Patient seen and examined at the bedside. Patient is on mechanical ventilation, off from sedation. Objective vital signs Vital Sign Date Time Temp Pulse Resp B/P (MAP) Pulse Ox O2 Delivery O2 Flow Rate FiO2 02/07/25 16:08 83 20 132/76 (94) 97 30 02/07/25 16:00 Mechanical Ventilator+ 02/07/25 16:00 97.9 97.9 Total Intake and Output 02/06/25 02/06/25 02/07/25 14:59 22:59 06:59 Intake Total 613 ml 540 ml 524 ml Output Total 585 ml 490 ml Balance 613 ml -45 ml 34 ml medications Current Medications Medications Dose Ordered Sig/Serenity Route Start Time Stop Time Status Last Admin Dose Admin Midazolam HCl 50 ml @ 1 mls/hr Q24H IV 01/29/25 14:15 01/29/25 15:56 5 MLS/HR Pantoprazole Sodium 40 mg DAILY IV 01/30/25 10:00 02/07/25 09:12 40 MG Phenylephrine HCl 250 ml @ 30 mls/hr Q8H20M IV 01/29/25 19:30 01/30/25 01:39 116.25 MLS/HR Levalbuterol HCl 0.625 mg Q4HR PRN NEB 01/29/25 20:00 02/02/25 06:23 0.625 MG Ipratropium [place] 0.5 mg Q4HPRN PRN NEB 01/29/25 20:00 02/02/25 06:23 0.5 MG Epinephrine HCl 250 ml @ 7.5 mls/hr Q24H IV 01/30/25 00:15 Vasopressin 20 units/Sodium Chloride 100 ml @ 9 mls/hr Q11H7M IV 01/30/25 07:30 02/03/25 13:09 9 MLS/HR Amino Acids 0 ml @ 0 mls/hr PER PHARMACY IV 02/01/25 11:15 Diagnostic Test (Pha) 1 strip Q6HR 02/01/25 18:00 02/07/25 12:34 1 STRIP Insulin Human Regular FOLLOW SLIDING SCALE Q6HR SC 02/01/25 18:00 02/02/25 11:36 2 UNITS Dextrose 50 ml UD IV 02/01/25 12:30 Albumin Human 100 ml @ 100 mls/hr PRN PRN IV 02/02/25 09:45 02/07/25 23:59 02/07/25 11:25 100 MLS/HR Epoetin Gunnar-epbx 4,000 unit MWF@2100 [place] 02/03/25 21:00 02/05/25 21:42 4,000 UNIT Piperacillin Sod/ Tazobactam Sod 100 ml @ 25 mls/hr Q8HR IV 02/03/25 14:00 02/07/25 15:07 25 MLS/HR Vancomycin HCl 0 ml @ 0 mls/hr UD IV 02/04/25 09:00 Sodium Chloride 10 ml QSHIFT@10,22 IV 02/04/25 22:00 02/07/25 09:12 10 ML Neomycin/ Polymyxin/ Bacitracin 1 applic DAILY TOP 02/06/25 10:00 02/07/25 09:11 1 APPLIC Fat Emulsion Intravenous 50 ml/ Potassium Phosphate 11 meq/ Calcium Gluconate 4.6 meq/ Multivitamins 10 ml/Amino Acids/ Dextrose 1,272.3924 ml @ 53 mls/hr Q24H1M IV 02/06/25 22:00 02/07/25 21:59 02/06/25 22:03 53 MLS/HR Bumetanide 2 mg BIDD IV 02/06/25 18:00 02/07/25 05:45 2 MG Albumin Human 100 ml @ 100 mls/hr ONCE PRN IV 02/07/25 10:00 02/07/25 23:59 Fat Emulsion Intravenous 50 ml/ Potassium Chloride 10 meq/ Potassium Phosphate 5 meq/ Calcium Gluconate 4 meq/Magnesium Sulfate 2 meq/ Multivitamins 10 ml/Amino Acids/ Dextrose 1,175.2385 ml @ 49 mls/hr Q24H IV 02/07/25 22:00 02/08/25 21:59 Norepinephrine Bitartrate 250 ml @ 0.938 mls/ hr Q24H IV 02/07/25 11:30 02/07/25 10:20 0.938 MLS/HR Examination General: RASS -5, afebrile, mucosae are moist Cardiovascular: Normal S1 and S2. No murmurs, gallops or rubs Respiratory: Mechanically assisted ventilation, equal bilateral airway entree. Clear lung sounds on auscultation Abdomen: Soft, nontender, no organomegaly, with surgical wound on abdomin MSK/skin: Mobilization of limbs cannot be evaluated. Skin is dry and warm. Neurological: Orientation cannot be assessed. Pupils are dilated and nonreactive to light, absent brainstem reflexes laboratory and microbiology Laboratory Tests 02/07/25 03:32 Test 02/07/25 03:32 Range/Units Serum Glucose 103 74-106 mg/dL Microbiology Date/Time Source Procedure Growth Status 02/02/25 22:00 Urine - [place] Urine Culture - Final Complete 02/02/25 19:20 Blood Blood Culture - Final Staphylococcus epidermidis Complete 01/30/25 00:00 Nose MRSA Screen - Final Complete 01/29/25 10:43 Sputum Gram Stain - Final Complete 01/29/25 10:43 Sputum Respiratory Culture - Final Complete Problem List/Assessment/Plan Problem List/Assessment/Plan This is a 24-year-old male with no significant past medical history underwent elective laparoscopic cholecystectomy on 01/28 at [facility] (due to cholelithiasis), on 2nd day postop at home became lethargic and subsequently coded. ROSC was achieved with CPR, abdominal CT scan showed intra-abdominal hematoma, underwent emergent laparotomy and drained about 500-750 thrombosed and dark blood. NEURO: Hypoxic encephalopathy, due to cardiac arrest Possible anoxic brain injury * RASS Score -5 * Head CT from 01/30 shows, Cerebellar tonsilar herniation. There is sulcal and ventricular effacement. The basal cisterns are effaced. Loss of mario-white matter differentiation is noted. * BRNNM-brain imaging, shows absence blood flow, findings suggest brain in the appropriate clinical setting * Due to some brainstem reflexes (overriding the ventilation), brain can not be confirmed, family is requesting neurosurgery evaluation CARDIOVASCULAR: NSTEMI possible type 2 Status post cardiac arrest Distributive shock (vasoplegia)/neurogenic shock/septic shock vasopressin * Cardiology on the board, recommended medical management * Echo from 01/30 shows,Technically limited study secondary to poor acoustic windows, normal LV size and function, 55-60% PULMONARY: Acute hypoxic respiratory failure, likely due to anoxic brain injury Cxr showed bilateral mild pulmonary vascular congestion GASTROINTESTINAL: Acute transaminitis secondary to hypovolemic shock Coagulopathy Hypoalbuminemia Status post laparoscopic cholecystectomy Status post exploratory laparotomy for hemoperitoneum GENITOURINARY: HARLEEN secondary to hypovolemic shock * Nephrology on the board, performed dialysis on 02/03 * IV Bumex drip METABOLIC: Severe anion gap metabolic acidosis due to lactic acidosis Hypernatremia Grade 2 obesity, BMI 35.7 kg per m2 Hypoglycemia HEME: Severe anemia, due to bleeding * Received 3 units of PRBC, 2 units of FFP and 1 unit of cryoprecipitate * Monitor H&H INFECTIOUS DISEASE: Leucocytosis Lactic acidosis * Urine culture, blood culture and respiratory culture shows no growth * On Zosyn and vancomycin DIET: TPN DVT prophylax: Hold GI prophylaxis: Protonix Code status: Full code LINES/DRAINS/ACCESS: ETT: Intubated on 01/29 IV access: Lt IJ placed on 01/29/25 left subclavian Drips: On Levophed Mora catheter: Placed on 01/29 DISPOSITION: ICU status Patient's status discussed with the patient's mother at the bedside. Critical care time spent more than 53 minutes, including patient care, chart review, and updating the family. Excluding any procedures. Case discussed with Dr. Moss Plan discussed with: Other Dietary Evaluation Review Recommendations by RD: PPN/TPN Comments: 1) Increase TPN rate to meet at least 75% of estimated daily needs 2) Advance to renal cardiac diet when medically feasible, pending ST approval 3) Follow-up with cardiology, pulmonology, nephrology, neurology, and gastroenterology 4) Continue to monitor I&O, labs, and skin integrity Expected Outcomes/Goals: 1) nutritional support to meet at least 75% of estimated daily needs 2) labs and wound to improve 3) diet to advance 4) gradual wt loss 5) f/u in 2-3 days ARNOLD MUHAMMAD Feb 07, 2025 17:25
[2025-02-07] MEDS: SODIUM CHL 0.9% 1000 ML BAG XX ONE (19:49)
[2025-02-07] MEDS: TPN PER PHARMACY IV NR (21:45)
[2025-02-08] VITALS (114 sets, daily range): BP systolic 68–212; BP diastolic 30–142; PULSE 77–109; RESP 13–22; TEMP 97–97.7; O2SAT 96–100
[2025-02-08 03:47] LABS: Hematocrit 28.2 % (41.0-53.0); Hemoglobin 9.6 g/dL (13.5-17.5); Mean Corpuscular Hemoglobin 29.7 pg (28.0-32.0); Mean Corpuscular Volume 87.3 fL (80.0-100.0); Nucleated Red Blood Cells % 0.0 %
[2025-02-08 04:02] LABS: Anion Gap 12 (5-15); BUN/Creatinine Ratio 11.0 (10.0-20.0); Calcium 8.9 mg/dL (8.7-10.4); Carbon Dioxide 28 mmol/L (20-31); Chloride 100 mmol/L (98-107); Glucose 105 mg/dL (74-106); Magnesium 2.1 mg/dL (1.6-2.6); Potassium 3.7 mmol/L (3.5-5.1); Sodium 140 mmol/L (136-145)
[2025-02-08 04:03] LABS: Alanine Aminotransferase 87 U/L (7-40); Albumin 3.0 g/dL (3.2-4.8); Alkaline Phosphatase 421 U/L (46-116); Bilirubin, Total 2.4 mg/dL (0.2-1.0); Blood Urea Nitrogen 69 mg/dL (9-23); Total Protein 5.4 g/dL (5.7-8.2)
--- NOTE | 2025-02-08 05:45 | DVH ---
CHEST RADIOGRAPH Indication: VDRF Technique: Single frontal view of the chest was obtained COMPARISON: XY CHEST XRAY 1 VIEW on DOS: 02/06/25, XY CHEST PORTABLE on DOS: 02/05/25, XY CHEST PORTABL E on DOS: 02/04/25, XY CHEST PORTABLE on DOS: 02/03/25, XY CHEST PORTABLE on DOS: 02/02/25 FINDINGS: Lines and Tubes: Unchanged. Lungs: Diminished lung volumes with concomitant crowding of the pulmonary vasculature. Small bilatera l pleural effusions. No pneumothorax. Cardiomediastinal contours: Unremarkable Bones: Unremarkable IMPRESSION: 1. Small bilateral pleural effusions. 2. Lines and tubes unchanged.
[2025-02-08 07:00] LABS: Base Excess 2.4 mmol/L (-2.0-3.0)
--- NOTE | 2025-02-08 07:43 | DVHPN2 ---
Progress Note Date Seen: Feb 08, 2025 Has the PT tested + for MRSA If YES, has PT been informed?: No Medical Necessity Reason Pt with a Central, PICC or Fol: Yes The following are medically ne: Central Line, Mora Catheter Reason for mora catheter: Nakul. Abd Surgery Subjective Review of Systems Pt seen earlier this morning. No family atbedside. Per RN 10 mL of ss drainaeg from drain. Improving u/o and remains with labile BP, requiring intermittent vasopressor support. No further bleeding from any site Objective vital signs Vital Sign Date Time Temp Pulse Resp B/P (MAP) Pulse Ox O2 Delivery O2 Flow Rate FiO2 02/08/25 06:20 79 22 107/71 (83) 98 30 02/08/25 06:00 Mechanical Ventilator+ 02/08/25 04:00 97.0 97.0 Total Intake and Output 02/07/25 02/07/25 02/08/25 15:00 23:00 07:00 Intake Total 561.189 ml 541 ml 395.876 ml Output Total 620 ml 660 ml Balance 561.189 ml -79 ml -264.124 ml medications Current Medications Medications Dose Ordered Sig/Serenity Route Start Time Stop Time Status Last Admin Dose Admin Midazolam HCl 50 ml @ 1 mls/hr Q24H IV 01/29/25 14:15 01/29/25 15:56 5 MLS/HR Pantoprazole Sodium 40 mg DAILY IV 01/30/25 10:00 02/07/25 09:12 40 MG Phenylephrine HCl 250 ml @ 30 mls/hr Q8H20M IV 01/29/25 19:30 01/30/25 01:39 116.25 MLS/HR Levalbuterol HCl 0.625 mg Q4HR PRN NEB 01/29/25 20:00 02/02/25 06:23 0.625 MG Ipratropium [place] 0.5 mg Q4HPRN PRN NEB 01/29/25 20:00 02/02/25 06:23 0.5 MG Epinephrine HCl 250 ml @ 7.5 mls/hr Q24H IV 01/30/25 00:15 Vasopressin 20 units/Sodium Chloride 100 ml @ 9 mls/hr Q11H7M IV 01/30/25 07:30 02/03/25 13:09 9 MLS/HR Amino Acids 0 ml @ 0 mls/hr PER PHARMACY IV 02/01/25 11:15 Diagnostic Test (Pha) 1 strip Q6HR 02/01/25 18:00 02/08/25 05:16 1 STRIP Insulin Human Regular FOLLOW SLIDING SCALE Q6HR SC 02/01/25 18:00 02/02/25 11:36 2 UNITS Dextrose 50 ml UD IV 02/01/25 12:30 Epoetin Gunnar-epbx 4,000 unit MWF@2100 [place] 02/03/25 21:00 02/07/25 21:38 4,000 UNIT Piperacillin Sod/ Tazobactam Sod 100 ml @ 25 mls/hr Q8HR IV 02/03/25 14:00 02/08/25 05:18 25 MLS/HR Vancomycin HCl 0 ml @ 0 mls/hr UD IV 02/04/25 09:00 Sodium Chloride 10 ml QSHIFT@10,22 IV 02/04/25 22:00 02/08/25 00:00 10 ML Neomycin/ Polymyxin/ Bacitracin 1 applic DAILY TOP 02/06/25 10:00 02/07/25 09:11 1 APPLIC Bumetanide 2 mg BIDD IV 02/06/25 18:00 02/08/25 05:18 2 MG Fat Emulsion Intravenous 50 ml/ Potassium Chloride 10 meq/ Potassium Phosphate 5 meq/ Calcium Gluconate 4 meq/Magnesium Sulfate 2 meq/ Multivitamins 10 ml/Amino Acids/ Dextrose 1,175.2385 ml @ 49 mls/hr Q24H IV 02/07/25 22:00 02/08/25 21:59 02/07/25 21:45 49 MLS/HR Norepinephrine Bitartrate 250 ml @ 0.938 mls/ hr Q24H IV 02/07/25 11:30 02/07/25 10:20 0.938 MLS/HR Examination Neuro. Unchanged. Dilated fixed pupils. No reflexes. CV. Normal HR 80's and normotensive. Hemodynamically stable. Episodes of hypotension requiering intermittend vasopressor support. SBP as low an 80s. LSCV and right PICC catheter exit site C/D/I. Pulmonary: Intubated with mechanical ventilator support 450/14/30%/+7. RR 20s GI: Soft, obese, non distended and non tender. Incision and dressing C/D/I. Drain with scant serosanguineous fluid. OGT in place. Bilious fluid within, low output. . Mora catheter in place. Extremities; No edema Resolved facial and neck edema. Mild orbital edema laboratory and microbiology Laboratory Tests 02/08/25 03:00 Test 02/08/25 03:00 Range/Units Serum Glucose 105 74-106 mg/dL Microbiology Date/Time Source Procedure Growth Status 02/02/25 22:00 Urine - [place] Urine Culture - Final Complete 02/02/25 19:20 Blood Blood Culture - Final Staphylococcus epidermidis Complete 01/30/25 00:00 Nose MRSA Screen - Final Complete 01/29/25 10:43 Sputum Gram Stain - Final Complete 01/29/25 10:43 Sputum Respiratory Culture - Final Complete Labs and/or images reviewed: Labs reviewed by me, Image(s) reviewed by me Problem List/Assessment/Plan Problems(with codes): (1) Thrombocytopenia (2) Tonsillar hernia into foramen magnum (3) Cerebral edema (4) Shock liver (5) Ventilator dependent (6) ARF (acute renal failure) Problem List/Assessment/Plan Neuro: Appreciate neurology input and assistance. CT revealed cerebral edema and tonsilar herniation.EEG no electric activity. Cerebral perfusion study confirmed no perfusion radiographically consistent with brain which was concordant with initial clinical diagnosis and EEG. However, pt continues demonstrating brain stem function as he is breathing over vent set rate of 14. RR, also witnessed up to 20s by family. 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 However, given breathing over vent set RR, he is demonstrating some neurological activity which voids previous brain assessment. [facility] inbound call center representative has been informed and process has been placed on hold.Pt family requested second neurology opinion. Dr. Meneses evaluated the patient. He then informed the family Mother, brother present and sister (Angely, on telephone) about his findings being concordant with previous assessments. They are aware that the patient's prognosis is poor with regards to meaningful recovery, that he will likely remain in a comatose state. I was present during the examination and discussion At the completion of the discussion, they were given time for questions. they had none. In the evening mother asked for Dr. Meneses to speak to pt's sister (Angely), as she had some questions. Dr. Meneses called Angely and addressed her questions. Angely and pt's mother are requesting a neurosurgery consultation to address some questions. Unfortunately those services are not available in this institution. An attempt was previously made by insurance case manager and it was rejected by [facility] secondary to herniation had already occurred. However, insurance case manager will find out if she can have a neurosurgery tele consult arranged with insurance. She will have some information on Monday morning, and we will reconvene in the afternoon to discuss limited options. I was also asked by Angely and mother to contact a cousin (Minda) to update her and answer any questions she may have. I called, she did not pickup. A message was left on her voice mail with instructions on how to get a hold of me to address any questions she may have. CV: Hemodynamically stable at this time. Episodes of hypo/hypertension, likely autonomic deregulation secondary to brain injury. Intermittent vasopressor support. Cardiology assistance appreciated. Mechanical DVT prophylaxis. Unlikely PE (can't rulet it out) but patient oxygenating well, no tachycardia. Pulmonary hypertension possibly unknowingly preexistent. Pulmonary: VDRF. Continue ventilator. Appreciate pulmonary medicine assistance. CXR R pleural effusion. Respiratory alkalosis. May need to further decrease RR. Defer to pulmonary medicine.Will have a discussion with family on Monday to discuss course of action.outreach manager will attempt to make arrangments for neurosurgery teleconsultation to address family's questions. Pt's mother had previously stated she did not want the patient to remain on PVS (coma) as she didn't want to prolong his suffering. Mother and family still feel they have not exhausted all possibilities, in spite of multiple discussions about his meaningful recovery expectations and prognosis. GI: Continue NPO. Continue TPN. Continue GI prophylaxis. Hepatic shock, LFT improving. Appreciate GI assistance. May need PEG/gastrostomy. A discussion will be held on Monday with pt's family to determine course of action. Mother and family continuing full care, in spite of multiple discussions about his prognosis. They still have strong nicko and beliefs he will recover. . ARF secondary to hemorrhagic shock. Strict I&O. Improving u/o. Mora to gravity. Appreciate nephrology assistance. Replace/correct electrolytes. HD Bumex and IVFs per nephrology. Heme/ID. Hemorrhagic shock resolved. Drain with thin serosanguineous fluid. Currently, no bleeding. Hgb remains stable. Thrombocytopenia, improving. Plts >110. Minimizing blood draw frequency to avoid worsening anemia. Will reserve blood draws for daily and only if clinically indicated at any given moment. Repeat labs AM. Appreciate hematology assistance. Leukocytosis resolved. Repeat set of Bld Cx tomorrow. Staph epi bacteremia, sensitive to Vancomycin renal dose. Continue Zosyn and Vancomycin. Vancomycin adjustment by pharmacy. Endocrine: Tight glycemic control. Skin: Skin care and pressure ulcer precautions. Plan discussed with: Other (RN) My Orders My Orders Orders - JITENDRA ZAMORA MD Procedure Category Date Status Time Amino Acid PHA 02/07/25 In Process Infusion... W/Fat 22:00 Tpn Per Pharmacy YANET 02/07/25 In Process 22:00 Chest Portable XY 02/08/25 Resulted 05:00 Chest Portable XY 02/09/25 Logged 05:00 Chest Portable XY 02/10/25 Logged 05:00 Chest Portable XY 02/11/25 Logged 05:00 Chest Portable XY 02/12/25 Logged 05:00 Chest Portable XY 02/13/25 Logged 05:00 Chest Portable XY 02/14/25 Logged 05:00 Abg W/ Co-Ox RT 02/08/25 Logged 05:39 Dietary Evaluation Review Recommendations by RD: PPN/TPN Comments: 1) Increase TPN rate to meet at least 75% of estimated daily needs 2) Advance to renal cardiac diet when medically feasible, pending ST approval 3) Follow-up with cardiology, pulmonology, nephrology, neurology, and gastroenterology 4) Continue to monitor I&O, labs, and skin integrity Expected Outcomes/Goals: 1) nutritional support to meet at least 75% of estimated daily needs 2) labs and wound to improve 3) diet to advance 4) gradual wt loss 5) f/u in 2-3 days JITENDRA ZAMORA MD Feb 08, 2025 07:43
[2025-02-08] MEDS: POTASSIUM PHOSPHATE 22 MEQ in SODIUM CHL 0.9% 100 ML IV ONE (14:02)
--- NOTE | 2025-02-08 14:06 | DVHPN2 ---
Progress Note - Dictate Date Seen: Feb 08, 2025 Has the PT tested + for MRSA If YES, has PT been informed?: No Medical Necessity Reason Pt with a Central, PICC or Fol: Yes The following are medically ne: Central Line, Mora Catheter Reason for mora catheter: Nakul. Abd Surgery Subjective Clinically unchanged, urine volumes nonoliguric vital signs Vital Sign Date Time Temp Pulse Resp B/P (MAP) Pulse Ox O2 Delivery O2 Flow Rate FiO2 02/08/25 12:20 17 98 Mechanical Ventilator+ 30 30 02/08/25 11:59 80 92/43 (59) 02/08/25 08:00 97.3 97.3 Total Intake and Output 02/07/25 02/07/25 02/08/25 15:00 23:00 07:00 Intake Total 561.189 ml 541 ml 395.876 ml Output Total 620 ml 660 ml Balance 561.189 ml -79 ml -264.124 ml medications Current Medications Medications Dose Ordered Sig/Serenity Route Start Time Stop Time Status Last Admin Dose Admin Midazolam HCl 50 ml @ 1 mls/hr Q24H IV 01/29/25 14:15 01/29/25 15:56 5 MLS/HR Pantoprazole Sodium 40 mg DAILY IV 01/30/25 10:00 02/08/25 09:37 40 MG Phenylephrine HCl 250 ml @ 30 mls/hr Q8H20M IV 01/29/25 19:30 01/30/25 01:39 116.25 MLS/HR Levalbuterol HCl 0.625 mg Q4HR PRN NEB 01/29/25 20:00 02/02/25 06:23 0.625 MG Ipratropium [place] 0.5 mg Q4HPRN PRN NEB 01/29/25 20:00 02/02/25 06:23 0.5 MG Epinephrine HCl 250 ml @ 7.5 mls/hr Q24H IV 01/30/25 00:15 Vasopressin 20 units/Sodium Chloride 100 ml @ 9 mls/hr Q11H7M IV 01/30/25 07:30 02/03/25 13:09 9 MLS/HR Amino Acids 0 ml @ 0 mls/hr PER PHARMACY IV 02/01/25 11:15 Diagnostic Test (Pha) 1 strip Q6HR 02/01/25 18:00 02/08/25 12:07 1 STRIP Insulin Human Regular FOLLOW SLIDING SCALE Q6HR [place] 02/01/25 18:00 02/02/25 11:36 2 UNITS Dextrose 50 ml UD IV 02/01/25 12:30 Epoetin Gunnar-epbx 4,000 unit MWF@2100 [place] 02/03/25 21:00 02/07/25 21:38 4,000 UNIT Piperacillin Sod/ Tazobactam Sod 100 ml @ 25 mls/hr Q8HR IV 02/03/25 14:00 02/08/25 14:02 25 MLS/HR Vancomycin HCl 0 ml @ 0 mls/hr UD IV 02/04/25 09:00 Sodium Chloride 10 ml QSHIFT@, IV 02/04/25 22:00 02/08/25 09:38 10 ML Neomycin/ Polymyxin/ Bacitracin 1 applic DAILY TOP 02/06/25 10:00 02/08/25 09:37 1 APPLIC Bumetanide 2 mg BIDD IV 02/06/25 18:00 02/08/25 05:18 2 MG Fat Emulsion Intravenous 50 ml/ Potassium Chloride 10 meq/ Potassium Phosphate 5 meq/ Calcium Gluconate 4 meq/Magnesium Sulfate 2 meq/ Multivitamins 10 ml/Amino Acids/ Dextrose 1,175.2385 ml @ 49 mls/hr Q24H IV 02/07/25 22:00 02/08/25 21:59 02/07/25 21:45 49 MLS/HR Norepinephrine Bitartrate 250 ml @ 0.938 mls/ hr Q24H IV 02/07/25 11:30 02/07/25 10:20 0.938 MLS/HR Artificial Tears 1 drop Q4HP PRN EACHEYE 02/08/25 07:30 Fat Emulsion Intravenous 50 ml/ Potassium Chloride 10 meq/ Potassium Phosphate 11 meq/ Magnesium Sulfate 2 meq/ Multivitamins 10 ml/Amino Acids/ Dextrose 1,168 ml @ 49 mls/hr [id number] IV 02/08/25 22:00 02/09/25 21:59 objective gen: intubated, unresponsive lungs: occ ronchi cvs: no rub ext: Without significant edema laboratory and microbiology Laboratory Tests 02/08/25 03:00 Test 02/08/25 03:00 Range/Units Serum Glucose 105 74-106 mg/dL Assessment/Plan Problem List/Assessment/Plan 1) HARLEEN / ischemic ATN. 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 4) Respiratory failure REC: -urine volumes slightly increased when compared to previous 24 hours. -we will monitor off of dialysis to evaluate current degree of renal function, possible recovery from ATN. Dietary Evaluation Review Recommendations by RD: PPN/TPN Comments: 1) Increase TPN rate to meet at least 75% of estimated daily needs 2) Advance to renal cardiac diet when medically feasible, pending ST approval 3) Follow-up with cardiology, pulmonology, nephrology, neurology, and gastroenterology 4) Continue to monitor I&O, labs, and skin integrity Expected Outcomes/Goals: 1) nutritional support to meet at least 75% of estimated daily needs 2) labs and wound to improve 3) diet to advance 4) gradual wt loss 5) f/u in 2-3 days Plan discussed with: Other JACINDA RUSH MD Feb 08, 2025 14:06
--- NOTE | 2025-02-08 17:08 | DVHPN2 ---
Progress Note Date Seen: Feb 08, 2025 Has the PT tested + for MRSA If YES, has PT been informed?: No Medical Necessity Reason Pt with a Central, PICC or Fol: Yes The following are medically ne: Central Line, Mora Catheter Reason for mora catheter: [place]. Abd Surgery Subjective Review of Systems Pt seen slightly earlier. Angely walked in with me. She had arrived at around 10 AM. No changes since this morning. Angely still has nicko and hope he can get better. She states she doesn't know what to do. She is aware that options are limited, if they decide to maintain current course, he will need a tracheostomy and PEG. We will discuss on Monday. manager urgent care will attempt to make arrangements for a tele NeurSx session to address any questions they may have. However, she expressed that those services may not be available. Minda (cousin" BEATRIZ MCKEON from [place] called and I discussed the pt's case with her, based on Pt's sister's and mother's request. She agrees prognosis is poor and understood why neurosx intervention not possible (tonsilar herniation). She would like to talk to Dr. Guillen. Unfortunately, I do not have his contact information. I directed her to the hospital staff, they may be able to arrange a call with him. Objective vital signs Vital Sign Date Time Temp Pulse Resp B/P (MAP) Pulse Ox O2 Delivery O2 Flow Rate FiO2 02/08/25 16:38 79 20 99/63 (75) 97 30 02/08/25 12:20 Mechanical Ventilator+ 02/08/25 08:00 97.3 97.3 Total Intake and Output 02/07/25 02/07/25 02/08/25 15:00 23:00 07:00 Intake Total 561.189 ml 541 ml 395.876 ml Output Total 620 ml 660 ml Balance 561.189 ml -79 ml -264.124 ml medications Current Medications Medications Dose Ordered Sig/Serenity Route Start Time Stop Time Status Last Admin Dose Admin Midazolam HCl 50 ml @ 1 mls/hr Q24H IV 01/29/25 14:15 01/29/25 15:56 5 MLS/HR Phenylephrine HCl 250 ml @ 30 mls/hr Q8H20M IV 01/29/25 19:30 01/30/25 01:39 116.25 MLS/HR Levalbuterol HCl 0.625 mg Q4HR PRN NEB 01/29/25 20:00 02/02/25 06:23 0.625 MG Ipratropium [place] 0.5 mg Q4HPRN PRN NEB 01/29/25 20:00 02/02/25 06:23 0.5 MG Epinephrine HCl 250 ml @ 7.5 mls/hr Q24H IV 01/30/25 00:15 Vasopressin 20 units/Sodium Chloride 100 ml @ 9 mls/hr Q11H7M IV 01/30/25 07:30 02/03/25 13:09 9 MLS/HR Amino Acids 0 ml @ 0 mls/hr PER PHARMACY IV 02/01/25 11:15 Diagnostic Test (Pha) 1 strip Q6HR 02/01/25 18:00 02/08/25 12:07 1 STRIP Insulin Human Regular FOLLOW SLIDING SCALE Q6HR NV 02/01/25 18:00 02/02/25 11:36 2 UNITS Dextrose 50 ml UD IV 02/01/25 12:30 Epoetin Gunnar-epbx 4,000 unit MWF@2100 NV 02/03/25 21:00 02/07/25 21:38 4,000 UNIT Piperacillin Sod/ Tazobactam Sod 100 ml @ 25 mls/hr Q8HR IV 02/03/25 14:00 02/08/25 14:02 25 MLS/HR Vancomycin HCl 0 ml @ 0 mls/hr UD IV 02/04/25 09:00 Sodium Chloride 10 ml QSHIFT@10,22 IV 02/04/25 22:00 02/08/25 09:38 10 ML Neomycin/ Polymyxin/ Bacitracin 1 applic DAILY TOP 02/06/25 10:00 02/08/25 09:37 1 APPLIC Bumetanide 2 mg BIDD IV 02/06/25 18:00 02/08/25 05:18 2 MG Fat Emulsion Intravenous 50 ml/ Potassium Chloride 10 meq/ Potassium Phosphate 5 meq/ Calcium Gluconate 4 meq/Magnesium Sulfate 2 meq/ Multivitamins 10 ml/Amino Acids/ Dextrose 1,175.2385 ml @ 49 mls/hr Q24H IV 02/07/25 22:00 02/08/25 21:59 02/07/25 21:45 49 MLS/HR Norepinephrine Bitartrate 250 ml @ 0.938 mls/ hr Q24H IV 02/07/25 11:30 02/07/25 10:20 0.938 MLS/HR Artificial Tears 1 drop Q4HP PRN EACHEYE 02/08/25 07:30 Fat Emulsion Intravenous 50 ml/ Potassium Chloride 10 meq/ Potassium Phosphate 11 meq/ Magnesium Sulfate 2 meq/ Multivitamins 10 ml/Amino Acids/ Dextrose 1,168 ml @ 49 mls/hr [id number] IV 02/08/25 22:00 02/09/25 21:59 Pantoprazole Sodium 40 mg Q12HR IV 02/08/25 22:00 UNV Examination Neuro. Unchanged. Dilated fixed pupils. No reflexes. CV. Hr 90 to 100 and normotensive. Remains hemodynamically stable. Episodes of hypotension requiring intermitted vasopressor support. SBP as low an 80s. LSCV and right PICC catheter exit site C/D/I. Pulmonary: Intubated with mechanical ventilator support 450/14/30%/+7. RR 14 now. GI: Soft, obese, non distended and non tender. Incision and dressing C/D/I. Drain with approximately 20 mL of sanguineous fluid. OGT in place. small amount of sanguineous fluid. . Mora catheter in place. Extremities; No edema Resolved facial and neck edema. Mild orbital edema laboratory and microbiology Laboratory Tests 02/08/25 03:00 Test 02/08/25 03:00 Range/Units Serum Glucose 105 74-106 mg/dL Microbiology Date/Time Source Procedure Growth Status 02/02/25 22:00 Urine - [place] Urine Culture - Final Complete 02/02/25 19:20 Blood Blood Culture - Final Staphylococcus epidermidis Complete 01/30/25 00:00 Nose MRSA Screen - Final Complete 01/29/25 10:43 Sputum Gram Stain - Final Complete 01/29/25 10:43 Sputum Respiratory Culture - Final Complete Problem List/Assessment/Plan Problems(with codes): (1) Thrombocytopenia (2) Cerebral edema (3) Tonsillar hernia into foramen magnum (4) Shock liver (5) Cerebral edema due to anoxia (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 CT revealed cerebral edema and tonsillar herniation.EEG no electric activity. Cerebral perfusion study confirmed no perfusion radiographically consistent with brain which was concordant with initial clinical diagnosis and EEG. However, pt continues demonstrating brain stem function as he is breathing over vent set rate of 14. RR, also witnessed up to 20s by family. 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 However, given breathing over vent set RR, he is demonstrating some neurological activity which voids previous brain assessment. [facility] provider relations representative has been informed and process has been placed on hold.Pt family requested second neurology opinion. Dr. Meneses evaluated the patient. He then informed the family Mother, brother present and sister (Angely, on telephone) about his findings being concordant with previous assessments. They are aware that the patient's prognosis is poor with regards to meaningful recovery, that he will likely remain in a comatose state. I was present during the examination and discussion At the completion of the discussion, they were given time for questions. they had none. In the evening mother asked for Dr. Meneses to speak to pt's sister (Angely), as she had some questions. Dr. Meneses called Angely and addressed her questions. Angely and pt's mother are requesting a neurosurgery consultation to address some questions. Unfortunately those services are not available in this institution. An attempt was previously made by medical case worker and it was rejected by [facility] secondary to herniation had already occurred. However, medical case worker will find out if she can have a neurosurgery tele consult arranged with insurance. She will have some information on Monday morning, and we will reconvene in the afternoon to discuss limited options. As requested per Pt's mother and sister, I received a call from her cousin, Minda (BEATRIZ MCKEON form [place]). The case was discussed to the best of my abilities as I can't speak for the neuro aspect of his condition, other than the basic information that has already been disclosed to the family before. CV: Hemodynamically stable at this time. 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 Intermittent vasopressor support. Cardiology assistance appreciated. Mechanical DVT prophylaxis. Unlikely PE (can't rulet it out) but patient oxygenating well, no tachycardia. Pulmonary hypertension possibly unknowingly preexistent. Pulmonary: VDRF. Continue ventilator. Appreciate pulmonary medicine assistance. CXR R pleural effusion. Respiratory alkalosis. May need to further decrease RR. Deferred to pulmonary medicine.Will get ABG now to assess current status. Will have a discussion with family on Monday to discuss course of action.manager urgent care will attempt to make arrangements for neurosurgery teleconsultation to address family's questions. Pt's mother had previously stated she did not want the patient to remain on PVS (coma) as she didn't want to prolong his suffering. Mother and family still feel they have not exhausted all possibilities, in spite of multiple discussions about his meaningful recovery expectations and prognosis. GI: Continue NPO. Continue TPN. BID GI prophylaxis (small amount of blood in OGT). Hepatic shock, LFT improving. Appreciate GI assistance. May need PEG/gastrostomy. A discussion will be held on Monday with pt's family to determine course of action. Mother and family continuing full care, in spite of multiple discussions about his prognosis. They still have strong nicko and beliefs he will recover. . ARF secondary to hemorrhagic shock. Strict I&O. Improving u/o. Mora to gravity. Appreciate nephrology assistance. Replace/correct electrolytes. HD Bumex and IVFs per nephrology. Heme/ID. Hemorrhagic shock resolved. Drain with sanguineous fluid again, only 20 mL. Very small amount of blood in OGT. Hgb remains stable. Thrombocytopenia, improving. Plts >110. Minimizing blood draw frequency to avoid worsening anemia. Will reserve blood draws for daily and only if clinically indicated at any given moment. Repeat labs AM. Appreciate hematology assistance. Leukocytosis resolved. Repeat set of Bld Cx tomorrow. Staph epi bacteremia, sensitive to Vancomycin renal dose. Continue Zosyn and Vancomycin. Vancomycin adjustment by pharmacy. Endocrine: Tight glycemic control. Skin: Skin care and pressure ulcer precautions. Plan discussed with: Other (Mother, sister, brother and RN) My Orders My Orders Orders - JITENDRA ZAMORA MD Procedure Category Date Status Time Abg W/ Co-Ox RT 02/08/25 Logged 05:39 Blood Culture EDMUNDO 02/09/25 Logged (Pediatric) 04:00 Artificial Tear 15ml PHA 02/08/25 In Process Opthalmic (Tears Na 07:30 Comprehensive LAB 02/09/25 Verified Metabolic Panel 04:00 Magnesium LAB 02/09/25 Verified 04:00 Phosphorus LAB 02/09/25 Verified 04:00 Amino Acid PHA 02/08/25 In Process Infusion... W/Fat 22:00 Tpn Per Pharmacy YANET 02/08/25 In Process 22:00 Cleanse Wound With YANET 02/08/25 In Process Wound Clean 12:43 Vancomycin 500mg/100ml PHA 02/08/25 In Process 17:00 Vancomycin,Random LAB 02/09/25 Verified 04:00 Pantoprazole PHA 02/08/25 Logged (Protonix) 22:00 Prothrombin Time W/ LAB 02/09/25 Verified INR 04:00 Partial LAB 02/09/25 Verified Thromboplastin Time 04:00 Fibrinogen LAB 02/09/25 Verified 04:00 Dietary Evaluation Review Recommendations by RD: PPN/TPN Comments: 1) Increase TPN rate to meet at least 75% of estimated daily needs 2) Advance to renal cardiac diet when medically feasible, pending ST approval 3) Follow-up with cardiology, pulmonology, nephrology, neurology, and gastroenterology 4) Continue to monitor I&O, labs, and skin integrity Expected Outcomes/Goals: 1) nutritional support to meet at least 75% of estimated daily needs 2) labs and wound to improve 3) diet to advance 4) gradual wt loss 5) f/u in 2-3 days JITENDRA ZAMORA MD Feb 08, 2025 17:08
[2025-02-08 17:18] LABS: Base Excess 0.7 mmol/L (-2.0-3.0)
[2025-02-08] MEDS: VANCOMYCIN 500mg/100mL 100 ML IV ONE (18:11)
[2025-02-08 19:12] LABS: Base Excess 1.2 mmol/L (-2.0-3.0)
--- NOTE | 2025-02-08 20:23 | DVHPN2 ---
Progress Note - Dictate Date Seen: Feb 08, 2025 Has the PT tested + for MRSA If YES, has PT been informed?: No Medical Necessity Reason Pt with a Central, PICC or Fol: Yes The following are medically ne: Central Line, Mora Catheter Reason for mora catheter: Nakul. Abd Surgery Subjective Patient seen and examined at the bedside within ICU. Vital signs stable. Chart reviewed. Patient's medications, allergies, past medical, surgical, social and family histories were obtained and reviewed as appropriate. vital signs Vital Sign Date Time Temp Pulse Resp B/P (MAP) Pulse Ox O2 Delivery O2 Flow Rate FiO2 02/08/25 20:08 80 14 109/54 (72) 98 30 02/08/25 18:26 Mechanical Ventilator+ 02/08/25 16:45 97.2 97.2 Total Intake and Output 02/07/25 02/07/25 02/08/25 15:00 23:00 07:00 Intake Total 561.189 ml 541 ml 444.876 ml Output Total 620 ml 660 ml Balance 561.189 ml -79 ml -215.124 ml medications Current Medications Medications Dose Ordered Sig/Serenity Route Start Time Stop Time Status Last Admin Dose Admin Midazolam HCl 50 ml @ 1 mls/hr Q24H IV 01/29/25 14:15 01/29/25 15:56 5 MLS/HR Phenylephrine HCl 250 ml @ 30 mls/hr Q8H20M IV 01/29/25 19:30 01/30/25 01:39 116.25 MLS/HR Levalbuterol HCl 0.625 mg Q4HR PRN NEB 01/29/25 20:00 02/02/25 06:23 0.625 MG Ipratropium [place] 0.5 mg Q4HPRN PRN NEB 01/29/25 20:00 02/02/25 06:23 0.5 MG Epinephrine HCl 250 ml @ 7.5 mls/hr Q24H IV 01/30/25 00:15 Vasopressin 20 units/Sodium Chloride 100 ml @ 9 mls/hr Q11H7M IV 01/30/25 07:30 02/03/25 13:09 9 MLS/HR Amino Acids 0 ml @ 0 mls/hr PER PHARMACY IV 02/01/25 11:15 Diagnostic Test (Pha) 1 strip Q6HR 02/01/25 18:00 02/08/25 17:52 1 STRIP Insulin Human Regular FOLLOW SLIDING SCALE Q6HR SC 02/01/25 18:00 02/02/25 11:36 2 UNITS Dextrose 50 ml UD IV 02/01/25 12:30 Epoetin Gunnar-epbx 4,000 unit MWF@2100 MA 02/03/25 21:00 02/07/25 21:38 4,000 UNIT Piperacillin Sod/ Tazobactam Sod 100 ml @ 25 mls/hr Q8HR IV 02/03/25 14:00 02/08/25 14:02 25 MLS/HR Vancomycin HCl 0 ml @ 0 mls/hr UD IV 02/04/25 09:00 Sodium Chloride 10 ml QSHIFT@10,22 IV 02/04/25 22:00 02/08/25 09:38 10 ML Neomycin/ Polymyxin/ Bacitracin 1 applic DAILY TOP 02/06/25 10:00 02/08/25 09:37 1 APPLIC Bumetanide 2 mg BIDD IV 02/06/25 18:00 02/08/25 18:14 2 MG Fat Emulsion Intravenous 50 ml/ Potassium Chloride 10 meq/ Potassium Phosphate 5 meq/ Calcium Gluconate 4 meq/Magnesium Sulfate 2 meq/ Multivitamins 10 ml/Amino Acids/ Dextrose 1,175.2385 ml @ 49 mls/hr Q24H IV 02/07/25 22:00 02/08/25 21:59 02/07/25 21:45 49 MLS/HR Norepinephrine Bitartrate 250 ml @ 0.938 mls/ hr Q24H IV 02/07/25 11:30 02/07/25 10:20 0.938 MLS/HR Artificial Tears 1 drop Q4HP PRN EACHEYE 02/08/25 07:30 Fat Emulsion Intravenous 50 ml/ Potassium Chloride 10 meq/ Potassium Phosphate 11 meq/ Magnesium Sulfate 2 meq/ Multivitamins 10 ml/Amino Acids/ Dextrose 1,168 ml @ 49 mls/hr [id number] IV 02/08/25 22:00 02/09/25 21:59 Pantoprazole Sodium 40 mg Q12HR IV 02/08/25 22:00 objective Review of Systems: Review of systems unable to be completed as the patient is intubated. Physical Exam: Heart: S1 and S2 present. The patient is in sinus rhythm. Lungs: Clear to auscultation Abdomen: Benign. Extremities: Distal pulses palpable, 2+. Trace pedal edema laboratory and microbiology Laboratory Tests 02/08/25 03:00 Test 02/08/25 03:00 Range/Units Serum Glucose 105 74-106 mg/dL Assessment/Plan Patient was declared brain by Neurology. As patient was breathing over the vent, Neurology second opinion was requested. Awaiting Neurology second opinion Still in ICU. On vent support. Blood pressure stable. Off any pressure support. No gross higher brain reflexes. Pupils are dilated and fixed. No reported arrhythmia overnight If proven Brain , no Cardiac intervention will be successful to change any outcome. Echocardiogram revealed no WMA and also revealed good EF. It also revealed increased Pulmonary Artery Pressure in favor of component of Pulmonary Hypertension. s/p Hemodialysis Received blood and platelet transfusion Brain scan questions brain , needs Neurology follow up Patient is a 24-year-old gentleman who was originally brought to the hospital for post arrest. Patient is seen in postop area. Patient is intubated and on multiple pressor supports. Patient is not source of history. Information was obtained by reviewing the chart, talking to patient's family/mother and communicating with staff and reviewing outside records ([facility]). Patient did have elective outpatient laparoscopic cholecystectomy in [facility] on January 28 2025. As per mother, after going home, patient was feeling very hungry and was eating and drinking a lot. He started feeling abdominal pain with nausea at night and in the morning was short of breath. As per mother: patient has stopped breathing in the morning and family called 911. As per mother, as per guidance of 911, family started CPR until EMS arrived. Patient was intubated and was brought to the hospital by EMS. Since arrival to [facility], patient was seen by surgeon who took the patient to operating room and performed laparotomy (there was hepatic hematoma). Postoperatively, the patient has remained hypotensive. There is signs for multiorgan involvement. Patient was not alert and did not complain of any chest pains. Labs revealed increased troponin. Cardiology is involved for cardiac aspects of care and abnormal troponin. First available EKG reveals sinus tachycardia with no specific ST-T changes. Telemetry had revealed sinus tachycardia throughout the stay. Patient is found to have significant anemia and is receiving blood transfusion at the time of evaluation. It is of note that at the time of evaluation patient does not have any reflexes. Intubated. Mucosa pale. Dilated and fixed pupils, Scattered rhonchi in the lungs. Cardiac: Tachycardic. No murmur. Abdomen is covered by dressing. Extremities do not reveal any edema. Dorsalis pedis is 1+ bilateral. Patient does not respond to any stimuli. Reported past medical history includes asthma and obesity. Reportedly, on January 23, 2025: Patient presented to [facility] for abdominal pain/nausea/vomiting. At that point the problems were ongoing for few weeks. In [facility], CT of the abdomen and MRCP were performed. Patient was seen by GI/surgery. Patient was found to have gallstones. Patient was discharged and later on January 28, 2025 presented back to [facility] for elective laparoscopy cholecystectomy. Patient was discharged home from [facility] after laparoscopic cholecystectomy. As per mother, patient does not have baseline history of any cardiac history. As per mother, patient was using marijuana. Mother denies any previous substance abuse besides marijuana. No specific family history is reported On January 23, 2025, labs in [facility] revealed creatinine of 0.84, hemoglobin of 15.2 and troponin (high sensitive) of <3. At that point EKG was normal WBC: 20.1 - 19.0 - 22.7 - 20.6 - 28.4 - 20.3 - 21.0 - 25.2 - 29.8 - 29.5 - 29.0 - 26.2 - 21.7 - 19.7 - 17.7 - 15.3 - 12.2 Hemoglobin: 8.3 - 6.5 - 12.1 - 11.1 - 12.1 - 9.3 - 9.2 - 9.1 - 8.4 - 9.0 - 9.5 - 8.8 - 8.4 - 8.0 - 9.7 - 9.6 - 9.8 Fibrinogen: 108 - 316 - 537 Creatinine: 4.02 - 3.78 - 3.90 - 3.95 - 4.34 - 5.44 - 6.05 - 6.73 - 7.31 - 7.77 - 6.64 - 7.30 - 4.91 - 5.32 - 7.40 - 5.98 - 7.66 Potassium: 5.6 - 4.6 - 4.8 - 3.9 - 2.9 - 2.9 - 3.6 - 3.8 - 4.9 - 5.4 - 6.0 - 5.1 - 5.3 - 6.1 - 6.0 - 4.6 - 4.4 - 4.3 - 3.5 - 3.4 AST/ALT: 676/700 - 2327/2055 - 4636/2521 - -/1995 - 2499/1989 - 1780/1821 - 808/995 - 586/735 - 456/444 - 312/290 - 237/163 - 215/125 Lactic acid: 17.9 - 17.2 - 11.4 Troponin (high sensitive): 5938 - 2560 - 1801 - 3712 - 7727 TSH: 11.05 Urine Toxicology: positive for Fentanyl and Benzodiazepine Chest x-ray revealed: Lines and Tubes: Endotracheal tube projects 2.2 cm above the meghan. Right internal jugular central venous catheter tip projects over superior vena cava. Lungs: No focal consolidation. Low lung volumes. Pleura: No effusion. No pneumothorax. Cardiomediastinal contours: Unremarkable Bones: No acute osseous abnormality. IMPRESSION: Lines and tubes as above. Low lung volumes. Repeat chest x-ray revealed: IMPRESSION: Lines and tubes in satisfactory position. Mild increased pulmonary vascular congestion Repeat chest xry revealed: IMPRESSION: Lines and tubes in satisfactory position. Mild increased pulmonary vascular congestion Repeat chest xry revealed: IMPRESSION: 1. Low lung volumes with concomitant crowding of the pulmonary vasculature. 2. No evidence of focal consolidation. 3. Lines and tubes unchanged. Repeat chest xry revealed: IMPRESSION: 1. Slight interval retraction of the endotracheal tube such that the tip now projects approximately 4.7 cm above the level of the meghan. Remaining lines and tubes unchanged. 2. Otherwise no significant change compared to prior exam. Repeat chest xry revealed: IMPRESSION: 1. Slight interval advancement of endotracheal tube such that the tip now projects approximately 1.7 cm above the level of the meghan. Remaining lines and tubes unchanged. 2. Otherwise no significant change compared to prior exam. Repeat chest xry revealed: IMPRESSION: 1. Slight interval retraction of the endotracheal tube such that the tip now projects approximately 3.3 cm above the level of the meghan. Remaining lines and tubes unchanged. 2. No evidence of acute cardiopulmonary process. Repeat chest xry revealed: IMPRESSION: 1. Endotracheal tube in appropriate position. Remaining lines and tubes unchanged. 2. No evidence of acute cardiopulmonary process. Repeat chest xry revealed: IMPRESSION: 1. Small right pleural effusion. 2. Lines and tubes unchanged. Repeat chest xry revealed: IMPRESSION: 1. Small right pleural effusion. 2. Lines and tubes unchanged. Brain scan revealed: FINDINGS: Absence of cerebral blood flow is noted along with no brain parenchymal radiotracer uptake. Increased activity is seen in the central face likely representing vascular shunting consistent with the so-called "hot nose" sign. Findings suggest brain however clinical correlation is necessary. IMPRESSION: Findings described above, which would be consistent with brain in the appropriate clinical setting, however clinical correlation is needed. CT of the chest/abdomen/pelvis revealed: IMPRESSION: 1. Hepatic hematoma measuring up to approximately 8.6 cm in greatest dimension, as described above, with hemorrhage extending beyond the liver capsule and into the right pericolic gutter as well as into the pelvis. No definite active arterial bleeding is seen on this exam, although limited evaluation due to the timing of contrast, as this was not a CTA exam. 2. Postsurgical changes of cholecystectomy. 3. Dilated fluid-filled small bowel loops, may be due to postoperative ileus. No small bowel obstruction. 4. Small volume pneumoperitoneum, likely due to recent surgery. Small volume of gas are seen in the upper ventral abdomen from the recent surgery. 5. Dependent atelectasis in the lower lobes. Otherwise, no acute disease in the chest. 6. Endotracheal tube and enteric tube in place. 7. Atrophic right kidney incidentally noted. 8. Additional findings as described above. Critical findings Critical Result: Acute hepatic hematoma with hemorrhage extending beyond the liver capsule into the adjacent portions of the abdomen and into the pelvis as detailed above. Repeat CT of chest/abdomen/pelvis revealed: There is limited interpretation of the chest, abdomen and pelvis without administration of intravenous contrast. Endotracheal tube tip terminates just at the meghan / left main bronchus. Diffuse bilateral pulmonary airspace consolidation bilaterally significantly increased. Bilateral lower lobe lobar consolidation/ atelectasis, increased from prior. Small bilateral pleural effusions. There is extensive edema/ stranding within the upper anterior chest, neck region/supraclavicular region. There is some hyperdensity within this region which could represent components of hematoma / blood products. Heterogeneous appearance of the thyroid gland. Right IJ catheter terminating at the cavoatrial junction. Adrenal glands unremarkable in shape. Perisplenic hematoma. Interval postsurgical changes in the right upper quadrant of the abdomen. There appears to be surgicel/gaseous collection within the previous hematoma cavity, likely representing surgicel. There is a radiopaque density within the resection cavity as well which measures 6.2 x 4.6 cm.. Postoperative changes of the right anterior abdomen with soft tissue emphysema. Small amount of pneumoperitoneum Surgical drainage catheter terminating in the right upper quadrant of the abdomen Right renal parenchymal atrophy. Left kidney demonstrates perinephric edema / stranding. No left hydronephrosis. Nasogastric tube projects towards the distal stomach. Moderate distention small bowel loops. Rectal catheter. Moderate distention of the large bowel loops. Normal appendix. Abdominal aorta normal in caliber. Small amount of ascites fluid/ mesenteric edema. Bladder decompressed by Mora catheter. Soft tissue edema /anasarca. Mesenteric edema. Small amount of ascites fluid. The osseous structures are stable. IMPRESSION: Limited evaluation without contrast. Interval evacuation of the right upper quadrant hematoma. Surgicel within the resection cavity. No significant interval development of new hematoma. There are 2 radiopaque lap pads within the resection cavity . Findings reviewed with Dr. Ledesma at 11:51 a.m. on 01/30/2025 Perisplenic hematoma, similar to previous examination. Extensive bilateral pulmonary airspace consolidation, significantly increased from previous examination. Small bilateral pleural effusions. Right upper quadrant drainage catheter. Pneumoperitoneum. Soft tissue edema / anasarca. Small amount of ascites fluid/ mesenteric edema. Extensive edema within the anterior chest, neck region. Heterogeneous appearance thyroid gland. Other findings as described. CT of the head revealed: IMPRESSION: 1. No evidence of acute intracranial abnormality. Repeat CT of head revealed: FINDINGS: Cerebellar tonsilar herniation. There is sulcal and ventricular effacement. The basal cisterns are effaced. Loss of mario-white matter differentiation is noted. The skull and visible facial bones are intact. The paranasal sinuses, mastoid air cells and middle ear cavities are well-aerated. The soft tissues of the scalp are unremarkable. IMPRESSION: Diffuse cerebral edema with cerebellar tonsillar herniation. Recommend MRI brain for further evaluation. CT of Neck revealed: IMPRESSION: Limited evaluation without contrast. Extensive soft tissue edema within the neck extending into the anterior / upper chest and anterior mediastinum . Retropharyngeal edema. Heterogeneous appearance of the thyroid gland. Inferior cerebellar tonsillar herniation better seen on the prior CT Renal Ultrasound revealed: IMPRESSION: 1. Right kidney not visible. 2. Left kidney is enlarged. 3. No hydronephrosis. Venous duplex of lower ext revealed: IMPRESSION: NO SONOGRAPHIC EVIDENCE FOR DEEP VENOUS THROMBOSIS IN THE RIGHT LOWER EXTREMITY VEINS. EEG reported: This is a remarkably abnormal EEG, this EEG seen in severe cerebral dysfunction due to metabolic/hypoxic encephalopathy or medication effects, unless this is caused by reversible etiology, this EEG is suggestive of a poor prognosis for meaningful recovery, please correlate clinically. Arrival EKG revealed sinus tachycardia with nonspecific ST-T changes Tele reveals sinus tachycardia Echocardiogram revealed: Technically limited study secondary to poor acoustic windows. Left ventricle: Left ventricle was normal-sized with normal systolic function. LVEF was 55-60%. No gross wall motion abnormality was seen. Right ventricle was mildly dilated with normal systolic function. Left atrium was normal-sized. Right atrium was mildly dilated. Aortic valve: Aortic valve was not well visualized. There was no aortic insufficiency/stenosis. There was no mitral regurgitation. There was trace tricuspid regurgitation. Pulmonary valve was not well visualized. IVC was not visualized. Right ventricular systolic pressure was assessed around 48 mm Hg. There was no pericardial effusion. Patient is a 24-year-old gentleman who presented with post arrest. It seems that the patient had hemorrhagic (intra-abdominal) presentation. Patient did have elective laparoscopic cholecystectomy the day before presentation. On the day of presentation, the patient was taken back to operating room and this time Laparotomy was done for hepatic hematoma. Patient does have multiorgan involvement. Clinically there is no brainstem reflexes. Shock liver/acute renal failure is considered. Troponin has been high. EKG did not reveal any STEMI. Presentation could be high troponin secondary to demand physiology. Patient does not have any risk factors for baseline coronary artery disease. In ideal scenario, ischemic workup/cardiac catheterization could be more revealing. Unfortunately, the patient does have acute renal failure which could be worsened by cardiac catheterization at this point. As there was no higher brain functions the suggestion is to wait and see if patient regains any higher brain function. It is of note that during cardiac catheterization, the patient may need some anticoagulation/antiplatelets. At this point patient is having significant anemia/bleeding and receiving blood transfusion and holding off of scenario forcing Anticoagulation/antiplatelets is advised. I had a long discussion with family members and Mother (repeatedly). Clinically patient has multiorgan failure. Secondary to active bleeding, we will avoid anticoagulation/antiplatelets for now. Being managed in ICU. Was taken to OR repeatedly. Still no reflexes. Echocardiogram revealed no WMA and also revealed good EF. It also revealed increased Pulmonary Artery Pressure in favor of component of Pulmonary Hypertension. Review of Echo images revealed good right ventricular systolic function. Not typical for Pulmonary Emboli. Still, PE cannot be ruled out. If PE is ruled out, then it is possible that patient had Pulmonary Hypertension from before (Baseline history of Asthma may actually reflect it). s/p PRBC transfusion (multiple). Being followed by Surgery, Nephrology, Hematology, Pulmonary, Neurology and GI. . Repeat imaging revealed cerebellar tonsillar herniation. Neurology diagnosed Hypoxic/Metabolic Encephalopathy also. EEG findings question meaningful recovery. Neurology declared patient: brain . s/ p Arrest Intra-abdominal bleeding Hepatic hematoma Multiorgan failure, due to shock Shock liver Lactic Acidosis Acute renal failure Acute respiratory failure, on vent support Status post laparotomy Status post laparoscopic cholecystectomy Abnormal troponin, evaluated to reflect possible demand physiology History of gallstones History of asthma Obesity History of marijuana abuse Consumptive Coagulopathy / DIC Pulmonary Hypertension Cerebellar tonsillar Herniation. Encephalopathy, hypoxic/metabolic Renal failure, started on hemodialysis Brain scan questions brain Anoxic Encephalopathy Cardiac suggestion for management: Evaluation and management of respiratory failure as per Pulmonary Evaluation and management of Cerebellar tonsillar herniation as per Neurology/surgery V/Q scan could not be completed Patient was declared brain by Neurology. As patient was breathing over the vent, Neurology second opinion was requested. Awaiting Neurology second opinion If proven Brain , no Cardiac intervention will be successful to change any outcome. At least: Anoxic Encephalopathy Echocardiogram revealed no WMA and also revealed good EF. It also revealed increased Pulmonary Artery Pressure in favor of component of Pulmonary Hypertension. Hematology follow up (to comment on prophylaxis / treatment of Pulmonary Emboli) Surgical follow up Nephrology follow up (started on hemodialysis) and Hematology follow up Secondary to active bleeding, we will avoid anticoagulation/antiplatelets for now Long-term prognosis depends on the above and most importantly regaining of the higher brain function: looks very grim Ischemic workup may be considered only after regaining higher brain function or any special change in clinical presentation Further evaluation and management depends on the above and clinical course Proceed with close observation for overt signs of fluid overload Proceed with strict intakes, outputs, and daily weights Proceed with close rate and rhythm surveillance Proceed with close hemodynamic surveillance Proceed with optimized blood pressure control Transfuse to sustain HGB levels above 7.0 Sustain Magnesium level greater than 2.0 Sustain Potassium level greater than 4.0 Follow up renal function and electrolytes Management in ICU Follow up recruiting operations consultant recommendations Will proceed to follow from a cardiac perspective Further recommendations per clinical progression All available labs, EKGs, and images were personally reviewed Patient's status, findings, and plan of care was discussed and reviewed with supervising physician Dr. Hall, who is in agreement with current plan of care. Plan of care discussed with and agreed upon by patient/family/Primary RN. Prognosis: Guarded Thank you for allowing me to participate in the care of this patient. Further recommendations will depend on clinical progression, hospitalist, and other consultants. Will continue to follow with Primary. If you have any questions, please do not hesitate to contact me. A total of 75 minutes was spent reviewing the patient record, examining the patient, making a diagnostic and therapeutic plan, discussing this plan with medical personnel, following up on diagnostic studies and following the patient for clinical stability excluding any and all procedures. At least 50% of this time was spent in direct, [id number] contact. Dietary Evaluation Review Recommendations by RD: PPN/TPN Comments: 1) Increase TPN rate to meet at least 75% of estimated daily needs 2) Advance to renal cardiac diet when medically feasible, pending ST approval 3) Follow-up with cardiology, pulmonology, nephrology, neurology, and gastroenterology 4) Continue to monitor I&O, labs, and skin integrity Expected Outcomes/Goals: 1) nutritional support to meet at least 75% of estimated daily needs 2) labs and wound to improve 3) diet to advance 4) gradual wt loss 5) f/u in 2-3 days Plan discussed with: Other (Mother ) [employer] Feb 08, 2025 20:23
[2025-02-08] MEDS: PANTOPRAZOLE 40 MG/10 ML VIAL INJ IV SCH (21:28)
[2025-02-08] MEDS: TPN PER PHARMACY IV NR (21:31)
[2025-02-09] VITALS (112 sets, daily range): BP systolic 74–200; BP diastolic 35–111; PULSE 82–115; RESP 13–17; TEMP 97–97.8; O2SAT 95–99
[2025-02-09 04:45] LABS: Anion Gap 14 (5-15); BUN/Creatinine Ratio 11.3 (10.0-20.0); Calcium 9.1 mg/dL (8.7-10.4); Carbon Dioxide 27 mmol/L (20-31); Chloride 98 mmol/L (98-107); Glucose 95 mg/dL (74-106); Magnesium 2.2 mg/dL (1.6-2.6); Potassium 4.5 mmol/L (3.5-5.1); Sodium 139 mmol/L (136-145); Total Protein 5.9 g/dL (5.7-8.2)
[2025-02-09 04:48] LABS: INR 1.08 (0.9-1.15); Partial Thromboplastin Time 33.3 SEC (24.5-34.5); Prothrombin Time 11.4 sec (9.3-11.8)
[2025-02-09 04:54] LABS: Alanine Aminotransferase 74 U/L (7-40); Albumin 3.0 g/dL (3.2-4.8); Alkaline Phosphatase 416 U/L (46-116); Bilirubin, Total 2.1 mg/dL (0.2-1.0)
[2025-02-09 04:55] LABS: Blood Urea Nitrogen 87 mg/dL (9-23)
[2025-02-09 05:07] LABS: Fibrinogen 689.0 mg/dL (177-375)
--- NOTE | 2025-02-09 05:36 | DVH ---
CHEST RADIOGRAPH Indication: VDRF Technique: Single frontal view of the chest was obtained COMPARISON: XY CHEST PORTABLE on DOS: 02/08/25, XY CHEST XRAY 1 VIEW on DOS: 02/06/25, XY CHEST PORTABL E on DOS: 02/05/25, XY CHEST PORTABLE on DOS: 02/04/25, XY CHEST PORTABLE on DOS: 02/03/25 FINDINGS: Lines and Tubes: Slight interval advancement of the endotracheal tube such that the tip now projects approximately 2.1 cm above the level of the meghan. Remaining lines and tubes unchanged. Lungs: Persistently diminished lung volumes without evidence of acute cardiopulmonary process. Pleura: No effusion. No pneumothorax. Cardiomediastinal contours: Unremarkable Bones: Unremarkable IMPRESSION: 1. Slight interval advancement of the endotracheal tube. Remaining lines and tubes unchanged. 2. No evidence of acute cardiopulmonary process.
--- NOTE | 2025-02-09 06:37 | DVHPN2 ---
Progress Note Date Seen: Feb 09, 2025 Has the PT tested + for MRSA If YES, has PT been informed?: No Medical Necessity Reason Pt with a Central, PICC or Fol: Yes The following are medically ne: Central Line, Mora Catheter Reason for mora catheter: Nakul. Abd Surgery Subjective Review of Systems Pt seen this morning. Per. RN became hypotensive with SBP as low as 70. Currently on Levophed at .5mcg/kg with SBP >100. HR 90s. U/O 500 mL, OGT non sanguineous 20 mL and drain with 20 mL. BP has been labile. Objective vital signs Vital Sign Date Time Temp Pulse Resp B/P (MAP) Pulse Ox O2 Delivery O2 Flow Rate FiO2 02/09/25 06:00 30 02/09/25 06:00 97.5 91 15 128/69 (88) 99 97.5 110/65 (80) 02/09/25 06:00 Mechanical Ventilator+ Total Intake and Output 02/08/25 02/08/25 02/09/25 15:00 23:00 07:00 Intake Total 646 ml 595.75 ml 365.50 ml Output Total 570 ml 550 ml Balance 646 ml 25.75 ml -184.50 ml medications Current Medications Medications Dose Ordered Sig/Serenity Route Start Time Stop Time Status Last Admin Dose Admin Midazolam HCl 50 ml @ 1 mls/hr Q24H IV 01/29/25 14:15 01/29/25 15:56 5 MLS/HR Phenylephrine HCl 250 ml @ 30 mls/hr Q8H20M IV 01/29/25 19:30 01/30/25 01:39 116.25 MLS/HR Levalbuterol HCl 0.625 mg Q4HR PRN NEB 01/29/25 20:00 02/09/25 02:14 0.625 MG Ipratropium [place] 0.5 mg Q4HPRN PRN NEB 01/29/25 20:00 02/09/25 02:14 0.5 MG Epinephrine HCl 250 ml @ 7.5 mls/hr Q24H IV 01/30/25 00:15 Vasopressin 20 units/Sodium Chloride 100 ml @ 9 mls/hr Q11H7M IV 01/30/25 07:30 02/03/25 13:09 9 MLS/HR Amino Acids 0 ml @ 0 mls/hr PER PHARMACY IV 02/01/25 11:15 Diagnostic Test (Pha) 1 strip Q6HR 02/01/25 18:00 02/09/25 05:08 1 STRIP Insulin Human Regular FOLLOW SLIDING SCALE Q6HR ND 02/01/25 18:00 02/02/25 11:36 2 UNITS Dextrose 50 ml UD IV 02/01/25 12:30 Epoetin Gunnar-epbx 4,000 unit MWF@2100 ND 02/03/25 21:00 02/07/25 21:38 4,000 UNIT Piperacillin Sod/ Tazobactam Sod 100 ml @ 25 mls/hr Q8HR IV 02/03/25 14:00 02/09/25 05:09 25 MLS/HR Vancomycin HCl 0 ml @ 0 mls/hr UD IV 02/04/25 09:00 Sodium Chloride 10 ml QSHIFT@10,22 IV 02/04/25 22:00 02/08/25 21:29 10 ML Neomycin/ Polymyxin/ Bacitracin 1 applic DAILY TOP 02/06/25 10:00 02/08/25 09:37 1 APPLIC Bumetanide 2 mg BIDD IV 02/06/25 18:00 02/09/25 05:50 2 MG Norepinephrine Bitartrate 250 ml @ 0.938 mls/ hr Q24H IV 02/07/25 11:30 02/07/25 10:20 0.938 MLS/HR Artificial Tears 1 drop Q4HP PRN EACHEYE 02/08/25 07:30 Fat Emulsion Intravenous 50 ml/ Potassium Chloride 10 meq/ Potassium Phosphate 11 meq/ Magnesium Sulfate 2 meq/ Multivitamins 10 ml/Amino Acids/ Dextrose 1,168 ml @ 49 mls/hr [id number] IV 02/08/25 22:00 02/09/25 21:59 02/08/25 21:31 49 MLS/HR Pantoprazole Sodium 40 mg Q12HR IV 02/08/25 22:00 02/08/25 21:28 40 MG Examination Neuro. Unchanged. Dilated fixed pupils. No reflexes. CV. Hr 90 to 100 and hypotensive. Levophed at 0.5 mcg/kg. SBP fluctuating between 80s to 212 last 24 hrs. LSCV and right PICC catheter exit sites remain C/D/I. Pulmonary: Intubated with mechanical ventilator support 500/14/30%/+7. RR 14 to 19 last 24 hrs. Currently 14/min.. GI: Soft, obese, non distended and non tender. Incision and dressing C/D/I. Drain with approximately 20 mL of thinner sanguineous/serosanguienous fluid. OGT in place, flushed/irrigated with 60 mL of saline solution, no further sanguineous ouput.. . Mora catheter in place. Extremities; No edema Resolved facial and neck edema. Mild orbital edema laboratory and microbiology Laboratory Tests 02/09/25 04:00 02/08/25 03:00 Test 02/09/25 04:00 Range/Units Serum Glucose 95 74-106 mg/dL Microbiology Date/Time Source Procedure Growth Status 02/02/25 22:00 Urine - Mora [place] Urine Culture - Final Complete 02/02/25 19:20 Blood Blood Culture - Final Staphylococcus epidermidis Complete 01/30/25 00:00 Nose MRSA Screen - Final Complete 01/29/25 10:43 Sputum Gram Stain - Final Complete 01/29/25 10:43 Sputum Respiratory Culture - Final Complete Labs and/or images reviewed: Labs reviewed by me, Image(s) reviewed by me Problem List/Assessment/Plan Problems(with codes): (1) Coma after cardiorespiratory arrest (2) 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 CT revealed cerebral edema and tonsillar herniation.EEG no electric activity. Cerebral perfusion study confirmed no perfusion radiographically consistent with brain which was concordant with initial clinical diagnosis and EEG. However, pt continues demonstrating brain stem function as he is breathing over vent set rate of 14. RR, also witnessed up to 20s by family. 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 However, given breathing over vent set RR, he is demonstrating some neurological activity which voids previous brain assessment. [employer] service representative has been informed and process has been placed on hold.Pt family requested second neurology opinion. Dr. Meneses evaluated the patient. He then informed the family Mother, brother present and sister (Angely, on telephone) about his findings being concordant with previous assessments. They are aware that the patient's prognosis is poor with regards to meaningful recovery, that he will likely remain in a comatose state. I was present during the examination and discussion At the completion of the discussion, they were given time for questions. they had none. In the evening mother asked for Dr. Meneses to speak to pt's sister (Angely), as she had some questions. Dr. Meneses called Angely and addressed her questions. Angely and pt's mother are requesting a neurosurgery consultation to address some questions. Unfortunately those services are not available in this institution. An attempt for transfer had been made was previously made by immigration case manager and it was rejected by [facility] secondary to herniation had already occurred. However, immigration case manager will find out if she can have a neurosurgery tele consult arranged with insurance. She will have some information on Monday morning, and we will reconvene in the afternoon to discuss limited options. As requested per Pt's mother and sister, I received a call from her cousin, Minda (BEATRIZ MCKEON form [place]). The case was discussed to the best of my abilities as I can't speak for the neuro aspect of his condition, other than the basic information that has already been disclosed to the family before. CV: Hemodynamically stable at this time. 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 Now requiring vasopressor support. Cardiology assistance appreciated. Mechanical DVT prophylaxis. Unlikely PE (can't rulet it out) but patient oxygenating well, no tachycardia. Pulmonary hypertension possibly unknowingly preexistent. Pulmonary: VDRF. Continue ventilator. Appreciate pulmonary medicine assistance. CXR no effusion. Respiratory alkalosis resolved spontanouesly. Follow up ABG revealed respiratory acidosis. Therefore, increased Vt to 500. F/U ABG stable. Pulmonary medicine following.Will ask if VQ scan can be done to complete workup. Will have a discussion with family on Monday to discuss course of action.housing manager will attempt to make arrangements for neurosurgery teleconsultation to address family's questions. Pt's mother had previously stated she did not want the patient to remain on PVS (coma) as she didn't want to prolong his suffering. Mother and family still feel they have not exhausted all possibilities, in spite of multiple discussions about his meaningful recovery expectations and prognosis. GI: Continue NPO. Continue TPN. Continue BID GI prophylaxis. Hepatic shock, LFTs improving. Appreciate GI assistance. May need PEG/gastrostomy. A discussion will be held on Monday with pt's family to determine course of action. Mother and family continuing full care, in spite of multiple discussions about his prognosis. They still have strong nicko and beliefs he will recover. . ARF secondary to hemorrhagic shock. Worsening uremia. Strict I&O. Improving u/o. Mora to gravity. Appreciate nephrology assistance. Replace/correct electrolytes. HD Bumex and IVFs per nephrology. Heme/ID. Hemorrhagic shock resolved. Worsening uremia, which may impact platelet function. Drain with sanguineous fluid again, thinner today, only 20 mL last shift. CBC will be ordered. RN was asked to call me with results. No further sanguineous drainage from OGT. Pending CBC. Thrombocytopenia, has been improving. Plts >110 yesterday RN instructed to call with results. Minimizing blood draw frequency to avoid worsening anemia. Will reserve blood draws for daily and only if clinically indicated at any given moment. Repeat labs AM. Appreciate hematology assistance. Leukocytosis resolved. Repeat Bld Cx done, pending results. Staph epi bacteremia, sensitive to Vancomycin renal dose. Continue Zosyn and Vancomycin. Vancomycin adjustment by pharmacy. Endocrine: Tight glycemic control. Skin: Skin care and pressure ulcer precautions. Plan discussed with: Other (RN) My Orders My Orders Orders - JITENDRA ZAMORA MD Procedure Category Date Status Time Blood Culture EDMUNDO 02/09/25 In Process (Pediatric) 04:00 Artificial Tear 15ml PHA 02/08/25 In Process Opthalmic (Tears Na 07:30 Amino Acid PHA 02/08/25 In Process Infusion... W/Fat 22:00 Tpn Per Pharmacy YANET 02/08/25 In Process 22:00 Cleanse Wound With YANET 02/08/25 In Process Wound Clean 12:43 Pantoprazole PHA 02/08/25 In Process (Protonix) 22:00 Abg W/ Co-Ox RT 02/08/25 Logged 16:28 Ventilator Orders RT 02/08/25 Transmitted 17:20 Abg W/ Co-Ox RT 02/08/25 Logged 18:30 Abg W/ Co-Ox RT 02/08/25 Logged 18:30 Complete Blood Count LAB 02/10/25 Verified 05:00 Complete Blood Count LAB 02/11/25 Verified 05:00 Complete Blood Count LAB 02/12/25 Verified 05:00 Complete Blood Count LAB 02/13/25 Verified 05:00 Complete Blood Count LAB 02/14/25 Verified 05:00 Dietary Evaluation Review Recommendations by RD: PPN/TPN Comments: 1) Increase TPN rate to meet at least 75% of estimated daily needs 2) Advance to renal cardiac diet when medically feasible, pending ST approval 3) Follow-up with cardiology, pulmonology, nephrology, neurology, and gastroenterology 4) Continue to monitor I&O, labs, and skin integrity Expected Outcomes/Goals: 1) nutritional support to meet at least 75% of estimated daily needs 2) labs and wound to improve 3) diet to advance 4) gradual wt loss 5) f/u in 2-3 days JITENDRA ZAMORA MD Feb 09, 2025 06:37
[2025-02-09 08:17] LABS: Base Excess 0.7 mmol/L (-2.0-3.0)
[2025-02-09 09:43] LABS: Hematocrit 28.8 % (41.0-53.0); Hemoglobin 9.7 g/dL (13.5-17.5); Mean Corpuscular Hemoglobin 29.4 pg (28.0-32.0); Mean Corpuscular Volume 87.2 fL (80.0-100.0); Nucleated Red Blood Cells % 0.0 %
--- NOTE | 2025-02-09 11:19 | DVHPN2 ---
Progress Note - Dictate Date Seen: Feb 09, 2025 Has the PT tested + for MRSA If YES, has PT been informed?: No Medical Necessity Reason Pt with a Central, PICC or Fol: Yes The following are medically ne: Central Line, Mora Catheter Reason for mora catheter: Nakul. Abd Surgery Subjective Continues to generate proximally 400-500 mL of urine per 12 hour shift. Has required therapy with low-dose norepinephrine. vital signs Vital Sign Date Time Temp Pulse Resp B/P (MAP) Pulse Ox O2 Delivery O2 Flow Rate FiO2 02/09/25 10:22 97 Mechanical Ventilator+ 30 30 02/09/25 10:15 91 14 140/77 (98) 02/09/25 08:00 97.8 97.8 Total Intake and Output 02/08/25 02/08/25 02/09/25 15:00 23:00 07:00 Intake Total 646 ml 595.75 ml 365.50 ml Output Total 570 ml 550 ml Balance 646 ml 25.75 ml -184.50 ml medications Current Medications Medications Dose Ordered Sig/Serenity Route Start Time Stop Time Status Last Admin Dose Admin Midazolam HCl 50 ml @ 1 mls/hr Q24H IV 01/29/25 14:15 01/29/25 15:56 5 MLS/HR Phenylephrine HCl 250 ml @ 30 mls/hr Q8H20M IV 01/29/25 19:30 01/30/25 01:39 116.25 MLS/HR Levalbuterol HCl 0.625 mg Q4HR PRN NEB 01/29/25 20:00 02/09/25 10:20 0.625 MG Ipratropium [place] 0.5 mg Q4HPRN PRN NEB 01/29/25 20:00 02/09/25 10:20 0.5 MG Epinephrine HCl 250 ml @ 7.5 mls/hr Q24H IV 01/30/25 00:15 Vasopressin 20 units/Sodium Chloride 100 ml @ 9 mls/hr Q11H7M IV 01/30/25 07:30 02/03/25 13:09 9 MLS/HR Amino Acids 0 ml @ 0 mls/hr PER PHARMACY IV 02/01/25 11:15 Diagnostic Test (Pha) 1 strip Q6HR 02/01/25 18:00 02/09/25 05:08 1 STRIP Insulin Human Regular FOLLOW SLIDING SCALE Q6HR CA 02/01/25 18:00 02/02/25 11:36 2 UNITS Dextrose 50 ml UD IV 02/01/25 12:30 Epoetin Gunnar-epbx 4,000 unit MWF@2100 CA 02/03/25 21:00 02/07/25 21:38 4,000 UNIT Piperacillin Sod/ Tazobactam Sod 100 ml @ 25 mls/hr Q8HR IV 02/03/25 14:00 02/09/25 05:09 25 MLS/HR Vancomycin HCl 0 ml @ 0 mls/hr UD IV 02/04/25 09:00 Sodium Chloride 10 ml QSHIFT@10,22 IV 02/04/25 22:00 02/09/25 10:39 10 ML Neomycin/ Polymyxin/ Bacitracin 1 applic DAILY TOP 02/06/25 10:00 02/09/25 10:39 1 APPLIC Bumetanide 2 mg BIDD IV 02/06/25 18:00 02/09/25 05:50 2 MG Norepinephrine Bitartrate 250 ml @ 0.938 mls/ hr Q24H IV 02/07/25 11:30 02/07/25 10:20 0.938 MLS/HR Artificial Tears 1 drop Q4HP PRN EACHEYE 02/08/25 07:30 Fat Emulsion Intravenous 50 ml/ Potassium Chloride 10 meq/ Potassium Phosphate 11 meq/ Magnesium Sulfate 2 meq/ Multivitamins 10 ml/Amino Acids/ Dextrose 1,168 ml @ 49 mls/hr [id number] IV 02/08/25 22:00 02/09/25 21:59 02/08/25 21:31 49 MLS/HR Pantoprazole Sodium 40 mg Q12HR IV 02/08/25 22:00 02/09/25 10:39 40 MG Fat Emulsion Intravenous 100 ml/Sodium Chloride 20 meq/ Potassium Chloride 10 meq/ Magnesium Sulfate 2 meq/ Multivitamins 10 ml/Amino Acids/ Dextrose 1,220.5 ml @ 51 mls/hr [id number] IV 02/09/25 22:00 02/10/25 21:59 objective gen: intubated, unresponsive lungs: occ ronchi cvs: no rub ext: no edema laboratory and microbiology Laboratory Tests 02/09/25 09:27 02/09/25 04:00 Test 02/09/25 04:00 Range/Units Serum Glucose 95 74-106 mg/dL Assessment/Plan Problem List/Assessment/Plan 1) HARLEEN / ischemic ATN. 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 4) Respiratory failure REC: - rate of rise in serum creatinine in BUN still indicative of poor [place] kidney function and need for ongoing intermittent dialysis support - tentatively for dialysis MondayFebruary 10. Dietary Evaluation Review Recommendations by RD: PPN/TPN Comments: 1) Increase TPN rate to meet at least 75% of estimated daily needs 2) Advance to renal cardiac diet when medically feasible, pending ST approval 3) Follow-up with cardiology, pulmonology, nephrology, neurology, and gastroenterology 4) Continue to monitor I&O, labs, and skin integrity Expected Outcomes/Goals: 1) nutritional support to meet at least 75% of estimated daily needs 2) labs and wound to improve 3) diet to advance 4) gradual wt loss 5) f/u in 2-3 days Plan discussed with: Other JACINDA RUSH MD Feb 09, 2025 11:18
--- NOTE | 2025-02-09 12:02 | DVHPN2 ---
Progress Note - Dictate Date Seen: Feb 09, 2025 Has the PT tested + for MRSA If YES, has PT been informed?: No Medical Necessity Reason Pt with a Central, PICC or Fol: Yes The following are medically ne: Central Line, Mora Catheter Reason for mora catheter: Nakul. Abd Surgery Subjective Patient seen and examined at the bedside within ICU. Patient was hypotensive, Levophed currently infusing at 0.9 mls/hr. Chart reviewed. Otherwise no changes. Patient's medications, allergies, past medical, surgical, social and family histories were obtained and reviewed as appropriate. vital signs Vital Sign Date Time Temp Pulse Resp B/P (MAP) Pulse Ox O2 Delivery O2 Flow Rate FiO2 02/09/25 11:30 98 14 123/64 (83) 97 117/67 (84) 02/09/25 10:22 Mechanical Ventilator+ 02/09/25 08:00 97.8 97.8 Total Intake and Output 02/08/25 02/08/25 02/09/25 15:00 23:00 07:00 Intake Total 646 ml 595.75 ml 365.50 ml Output Total 570 ml 550 ml Balance 646 ml 25.75 ml -184.50 ml medications Current Medications Medications Dose Ordered Sig/Serenity Route Start Time Stop Time Status Last Admin Dose Admin Midazolam HCl 50 ml @ 1 mls/hr Q24H IV 01/29/25 14:15 01/29/25 15:56 5 MLS/HR Phenylephrine HCl 250 ml @ 30 mls/hr Q8H20M IV 01/29/25 19:30 01/30/25 01:39 116.25 MLS/HR Levalbuterol HCl 0.625 mg Q4HR PRN NEB 01/29/25 20:00 02/09/25 10:20 0.625 MG Ipratropium [place] 0.5 mg Q4HPRN PRN NEB 01/29/25 20:00 02/09/25 10:20 0.5 MG Epinephrine HCl 250 ml @ 7.5 mls/hr Q24H IV 01/30/25 00:15 Vasopressin 20 units/Sodium Chloride 100 ml @ 9 mls/hr Q11H7M IV 01/30/25 07:30 02/03/25 13:09 9 MLS/HR Amino Acids 0 ml @ 0 mls/hr PER PHARMACY IV 02/01/25 11:15 Diagnostic Test (Pha) 1 strip Q6HR 02/01/25 18:00 02/09/25 05:08 1 STRIP Insulin Human Regular FOLLOW SLIDING SCALE Q6HR SC 02/01/25 18:00 02/02/25 11:36 2 UNITS Dextrose 50 ml UD IV 02/01/25 12:30 Epoetin Gunnar-epbx 4,000 unit MWF@2100 TN 02/03/25 21:00 02/07/25 21:38 4,000 UNIT Piperacillin Sod/ Tazobactam Sod 100 ml @ 25 mls/hr Q8HR IV 02/03/25 14:00 02/09/25 05:09 25 MLS/HR Vancomycin HCl 0 ml @ 0 mls/hr UD IV 02/04/25 09:00 Sodium Chloride 10 ml QSHIFT@10,22 IV 02/04/25 22:00 02/09/25 10:39 10 ML Neomycin/ Polymyxin/ Bacitracin 1 applic DAILY TOP 02/06/25 10:00 02/09/25 10:39 1 APPLIC Bumetanide 2 mg BIDD IV 02/06/25 18:00 02/09/25 05:50 2 MG Norepinephrine Bitartrate 250 ml @ 0.938 mls/ hr Q24H IV 02/07/25 11:30 02/07/25 10:20 0.938 MLS/HR Artificial Tears 1 drop Q4HP PRN EACHEYE 02/08/25 07:30 Fat Emulsion Intravenous 50 ml/ Potassium Chloride 10 meq/ Potassium Phosphate 11 meq/ Magnesium Sulfate 2 meq/ Multivitamins 10 ml/Amino Acids/ Dextrose 1,168 ml @ 49 mls/hr [id number] IV 02/08/25 22:00 02/09/25 21:59 02/08/25 21:31 49 MLS/HR Pantoprazole Sodium 40 mg Q12HR IV 02/08/25 22:00 02/09/25 10:39 40 MG Fat Emulsion Intravenous 100 ml/Sodium Chloride 20 meq/ Potassium Chloride 10 meq/ Magnesium Sulfate 2 meq/ Multivitamins 10 ml/Amino Acids/ Dextrose 1,220.5 ml @ 51 mls/hr [id number] IV 02/09/25 22:00 02/10/25 21:59 objective Review of Systems: Review of systems unable to be completed as the patient is intubated. Physical Exam: Heart: S1 and S2 present. The patient is in sinus rhythm. Lungs: Clear to auscultation Abdomen: Benign. Extremities: Distal pulses palpable, 2+. Trace pedal edema laboratory and microbiology Laboratory Tests 02/09/25 09:27 02/09/25 04:00 Test 02/09/25 04:00 Range/Units Serum Glucose 95 74-106 mg/dL Assessment/Plan Patient was declared brain by Neurology. As patient was breathing over the vent, Neurology second opinion was requested. Awaiting Neurology second opinion Still in ICU. On vent support. Blood pressure stable. Off any pressure support. No gross higher brain reflexes. Pupils are dilated and fixed. No reported arrhythmia overnight If proven Brain , no Cardiac intervention will be successful to change any outcome. Echocardiogram revealed no WMA and also revealed good EF. It also revealed increased Pulmonary Artery Pressure in favor of component of Pulmonary Hypertension. s/p Hemodialysis Received blood and platelet transfusion Brain scan questions brain , needs Neurology follow up Patient is a 24-year-old gentleman who was originally brought to the hospital for post arrest. Patient is seen in postop area. Patient is intubated and on multiple pressor supports. Patient is not source of history. Information was obtained by reviewing the chart, talking to patient's family/mother and communicating with staff and reviewing outside records ([facility]). Patient did have elective outpatient laparoscopic cholecystectomy in [facility] on January 28 2025. As per mother, after going home, patient was feeling very hungry and was eating and drinking a lot. He started feeling abdominal pain with nausea at night and in the morning was short of breath. As per mother: patient has stopped breathing in the morning and family called 911. As per mother, as per guidance of 911, family started CPR until EMS arrived. Patient was intubated and was brought to the hospital by EMS. Since arrival to [facility], patient was seen by surgeon who took the patient to operating room and performed laparotomy (there was hepatic hematoma). Postoperatively, the patient has remained hypotensive. There is signs for multiorgan involvement. Patient was not alert and did not complain of any chest pains. Labs revealed increased troponin. Cardiology is involved for cardiac aspects of care and abnormal troponin. First available EKG reveals sinus tachycardia with no specific ST-T changes. Telemetry had revealed sinus tachycardia throughout the stay. Patient is found to have significant anemia and is receiving blood transfusion at the time of evaluation. It is of note that at the time of evaluation patient does not have any reflexes. Intubated. Mucosa pale. Dilated and fixed pupils, Scattered rhonchi in the lungs. Cardiac: Tachycardic. No murmur. Abdomen is covered by dressing. Extremities do not reveal any edema. Dorsalis pedis is 1+ bilateral. Patient does not respond to any stimuli. Reported past medical history includes asthma and obesity. Reportedly, on January 23, 2025: Patient presented to [facility] for abdominal pain/nausea/vomiting. At that point the problems were ongoing for few weeks. In [facility], CT of the abdomen and MRCP were performed. Patient was seen by GI/surgery. Patient was found to have gallstones. Patient was discharged and later on January 28, 2025 presented back to [facility] for elective laparoscopy cholecystectomy. Patient was discharged home from [facility] after laparoscopic cholecystectomy. As per mother, patient does not have baseline history of any cardiac history. As per mother, patient was using marijuana. Mother denies any previous substance abuse besides marijuana. No specific family history is reported On January 23, 2025, labs in [facility] revealed creatinine of 0.84, hemoglobin of 15.2 and troponin (high sensitive) of <3. At that point EKG was normal WBC: 20.1 - 19.0 - 22.7 - 20.6 - 28.4 - 20.3 - 21.0 - 25.2 - 29.8 - 29.5 - 29.0 - 26.2 - 21.7 - 19.7 - 17.7 - 15.3 - 12.2 Hemoglobin: 8.3 - 6.5 - 12.1 - 11.1 - 12.1 - 9.3 - 9.2 - 9.1 - 8.4 - 9.0 - 9.5 - 8.8 - 8.4 - 8.0 - 9.7 - 9.6 - 9.8 Fibrinogen: 108 - 316 - 537 Creatinine: 4.02 - 3.78 - 3.90 - 3.95 - 4.34 - 5.44 - 6.05 - 6.73 - 7.31 - 7.77 - 6.64 - 7.30 - 4.91 - 5.32 - 7.40 - 5.98 - 7.66 Potassium: 5.6 - 4.6 - 4.8 - 3.9 - 2.9 - 2.9 - 3.6 - 3.8 - 4.9 - 5.4 - 6.0 - 5.1 - 5.3 - 6.1 - 6.0 - 4.6 - 4.4 - 4.3 - 3.5 - 3.4 AST/ALT: 676/700 - 2327/2055 - 4636/2521 - -/1995 - 2500/1989 - 1780/1821 - 808/995 - 586/735 - 456/444 - 312/290 - 237/163 - 215/125 Lactic acid: 17.9 - 17.2 - 11.4 Troponin (high sensitive): 6993 - 0059 - 9694 - 9055 - 1549 TSH: 11.05 Urine Toxicology: positive for Fentanyl and Benzodiazepine Chest x-ray revealed: Lines and Tubes: Endotracheal tube projects 2.2 cm above the meghan. Right internal jugular central venous catheter tip projects over superior vena cava. Lungs: No focal consolidation. Low lung volumes. Pleura: No effusion. No pneumothorax. Cardiomediastinal contours: Unremarkable Bones: No acute osseous abnormality. IMPRESSION: Lines and tubes as above. Low lung volumes. Repeat chest x-ray revealed: IMPRESSION: Lines and tubes in satisfactory position. Mild increased pulmonary vascular congestion Repeat chest xry revealed: IMPRESSION: Lines and tubes in satisfactory position. Mild increased pulmonary vascular congestion Repeat chest xry revealed: IMPRESSION: 1. Low lung volumes with concomitant crowding of the pulmonary vasculature. 2. No evidence of focal consolidation. 3. Lines and tubes unchanged. Repeat chest xry revealed: IMPRESSION: 1. Slight interval retraction of the endotracheal tube such that the tip now projects approximately 4.7 cm above the level of the meghan. Remaining lines and tubes unchanged. 2. Otherwise no significant change compared to prior exam. Repeat chest xry revealed: IMPRESSION: 1. Slight interval advancement of endotracheal tube such that the tip now projects approximately 1.7 cm above the level of the meghan. Remaining lines and tubes unchanged. 2. Otherwise no significant change compared to prior exam. Repeat chest xry revealed: IMPRESSION: 1. Slight interval retraction of the endotracheal tube such that the tip now projects approximately 3.3 cm above the level of the meghan. Remaining lines and tubes unchanged. 2. No evidence of acute cardiopulmonary process. Repeat chest xry revealed: IMPRESSION: 1. Endotracheal tube in appropriate position. Remaining lines and tubes unchanged. 2. No evidence of acute cardiopulmonary process. Repeat chest xry revealed: IMPRESSION: 1. Small right pleural effusion. 2. Lines and tubes unchanged. Repeat chest xry revealed: IMPRESSION: 1. Small right pleural effusion. 2. Lines and tubes unchanged. Brain scan revealed: FINDINGS: Absence of cerebral blood flow is noted along with no brain parenchymal radiotracer uptake. Increased activity is seen in the central face likely representing vascular shunting consistent with the so-called "hot nose" sign. Findings suggest brain however clinical correlation is necessary. IMPRESSION: Findings described above, which would be consistent with brain in the appropriate clinical setting, however clinical correlation is needed. CT of the chest/abdomen/pelvis revealed: IMPRESSION: 1. Hepatic hematoma measuring up to approximately 8.6 cm in greatest dimension, as described above, with hemorrhage extending beyond the liver capsule and into the right pericolic gutter as well as into the pelvis. No definite active arterial bleeding is seen on this exam, although limited evaluation due to the timing of contrast, as this was not a CTA exam. 2. Postsurgical changes of cholecystectomy. 3. Dilated fluid-filled small bowel loops, may be due to postoperative ileus. No small bowel obstruction. 4. Small volume pneumoperitoneum, likely due to recent surgery. Small volume of gas are seen in the upper ventral abdomen from the recent surgery. 5. Dependent atelectasis in the lower lobes. Otherwise, no acute disease in the chest. 6. Endotracheal tube and enteric tube in place. 7. Atrophic right kidney incidentally noted. 8. Additional findings as described above. Critical findings Critical Result: Acute hepatic hematoma with hemorrhage extending beyond the liver capsule into the adjacent portions of the abdomen and into the pelvis as detailed above. Repeat CT of chest/abdomen/pelvis revealed: There is limited interpretation of the chest, abdomen and pelvis without administration of intravenous contrast. Endotracheal tube tip terminates just at the meghan / left main bronchus. Diffuse bilateral pulmonary airspace consolidation bilaterally significantly increased. Bilateral lower lobe lobar consolidation/ atelectasis, increased from prior. Small bilateral pleural effusions. There is extensive edema/ stranding within the upper anterior chest, neck region/supraclavicular region. There is some hyperdensity within this region which could represent components of hematoma / blood products. Heterogeneous appearance of the thyroid gland. Right IJ catheter terminating at the cavoatrial junction. Adrenal glands unremarkable in shape. Perisplenic hematoma. Interval postsurgical changes in the right upper quadrant of the abdomen. There appears to be surgicel/gaseous collection within the previous hematoma cavity, likely representing surgicel. There is a radiopaque density within the resection cavity as well which measures 6.2 x 4.6 cm.. Postoperative changes of the right anterior abdomen with soft tissue emphysema. Small amount of pneumoperitoneum Surgical drainage catheter terminating in the right upper quadrant of the abdomen Right renal parenchymal atrophy. Left kidney demonstrates perinephric edema / stranding. No left hydronephrosis. Nasogastric tube projects towards the distal stomach. Moderate distention small bowel loops. Rectal catheter. Moderate distention of the large bowel loops. Normal appendix. Abdominal aorta normal in caliber. Small amount of ascites fluid/ mesenteric edema. Bladder decompressed by Mora catheter. Soft tissue edema /anasarca. Mesenteric edema. Small amount of ascites fluid. The osseous structures are stable. IMPRESSION: Limited evaluation without contrast. Interval evacuation of the right upper quadrant hematoma. Surgicel within the resection cavity. No significant interval development of new hematoma. There are 2 radiopaque lap pads within the resection cavity . Findings reviewed with Dr. Ledesma at 11:51 a.m. on 01/30/2025 Perisplenic hematoma, similar to previous examination. Extensive bilateral pulmonary airspace consolidation, significantly increased from previous examination. Small bilateral pleural effusions. Right upper quadrant drainage catheter. Pneumoperitoneum. Soft tissue edema / anasarca. Small amount of ascites fluid/ mesenteric edema. Extensive edema within the anterior chest, neck region. Heterogeneous appearance thyroid gland. Other findings as described. CT of the head revealed: IMPRESSION: 1. No evidence of acute intracranial abnormality. Repeat CT of head revealed: FINDINGS: Cerebellar tonsilar herniation. There is sulcal and ventricular effacement. The basal cisterns are effaced. Loss of mario-white matter differentiation is noted. The skull and visible facial bones are intact. The paranasal sinuses, mastoid air cells and middle ear cavities are well-aerated. The soft tissues of the scalp are unremarkable. IMPRESSION: Diffuse cerebral edema with cerebellar tonsillar herniation. Recommend MRI brain for further evaluation. CT of Neck revealed: IMPRESSION: Limited evaluation without contrast. Extensive soft tissue edema within the neck extending into the anterior / upper chest and anterior mediastinum . Retropharyngeal edema. Heterogeneous appearance of the thyroid gland. Inferior cerebellar tonsillar herniation better seen on the prior CT Renal Ultrasound revealed: IMPRESSION: 1. Right kidney not visible. 2. Left kidney is enlarged. 3. No hydronephrosis. Venous duplex of lower ext revealed: IMPRESSION: NO SONOGRAPHIC EVIDENCE FOR DEEP VENOUS THROMBOSIS IN THE RIGHT LOWER EXTREMITY VEINS. EEG reported: This is a remarkably abnormal EEG, this EEG seen in severe cerebral dysfunction due to metabolic/hypoxic encephalopathy or medication effects, unless this is caused by reversible etiology, this EEG is suggestive of a poor prognosis for meaningful recovery, please correlate clinically. Arrival EKG revealed sinus tachycardia with nonspecific ST-T changes Tele reveals sinus tachycardia Echocardiogram revealed: Technically limited study secondary to poor acoustic windows. Left ventricle: Left ventricle was normal-sized with normal systolic function. LVEF was 55-60%. No gross wall motion abnormality was seen. Right ventricle was mildly dilated with normal systolic function. Left atrium was normal-sized. Right atrium was mildly dilated. Aortic valve: Aortic valve was not well visualized. There was no aortic insufficiency/stenosis. There was no mitral regurgitation. There was trace tricuspid regurgitation. Pulmonary valve was not well visualized. IVC was not visualized. Right ventricular systolic pressure was assessed around 48 mm Hg. There was no pericardial effusion. Patient is a 24-year-old gentleman who presented with post arrest. It seems that the patient had hemorrhagic (intra-abdominal) presentation. Patient did have elective laparoscopic cholecystectomy the day before presentation. On the day of presentation, the patient was taken back to operating room and this time Laparotomy was done for hepatic hematoma. Patient does have multiorgan involvement. Clinically there is no brainstem reflexes. Shock liver/acute renal failure is considered. Troponin has been high. EKG did not reveal any STEMI. Presentation could be high troponin secondary to demand physiology. Patient does not have any risk factors for baseline coronary artery disease. In ideal scenario, ischemic workup/cardiac catheterization could be more revealing. Unfortunately, the patient does have acute renal failure which could be worsened by cardiac catheterization at this point. As there was no higher brain functions the suggestion is to wait and see if patient regains any higher brain function. It is of note that during cardiac catheterization, the patient may need some anticoagulation/antiplatelets. At this point patient is having significant anemia/bleeding and receiving blood transfusion and holding off of scenario forcing Anticoagulation/antiplatelets is advised. I had a long discussion with family members and Mother (repeatedly). Clinically patient has multiorgan failure. Secondary to active bleeding, we will avoid anticoagulation/antiplatelets for now. Being managed in ICU. Was taken to OR repeatedly. Still no reflexes. Echocardiogram revealed no WMA and also revealed good EF. It also revealed increased Pulmonary Artery Pressure in favor of component of Pulmonary Hypertension. Review of Echo images revealed good right ventricular systolic function. Not typical for Pulmonary Emboli. Still, PE cannot be ruled out. If PE is ruled out, then it is possible that patient had Pulmonary Hypertension from before (Baseline history of Asthma may actually reflect it). s/p PRBC transfusion (multiple). Being followed by Surgery, Nephrology, Hematology, Pulmonary, Neurology and GI. . Repeat imaging revealed cerebellar tonsillar herniation. Neurology diagnosed Hypoxic/Metabolic Encephalopathy also. EEG findings question meaningful recovery. Neurology declared patient: brain . s/ p Arrest Intra-abdominal bleeding Hepatic hematoma Multiorgan failure, due to shock Shock liver Lactic Acidosis Acute renal failure Acute respiratory failure, on vent support Status post laparotomy Status post laparoscopic cholecystectomy Abnormal troponin, evaluated to reflect possible demand physiology History of gallstones History of asthma Obesity History of marijuana abuse Consumptive Coagulopathy / DIC Pulmonary Hypertension Cerebellar tonsillar Herniation. Encephalopathy, hypoxic/metabolic Renal failure, started on hemodialysis Brain scan questions brain Anoxic Encephalopathy Cardiac suggestion for management: Evaluation and management of respiratory failure as per Pulmonary Evaluation and management of Cerebellar tonsillar herniation as per Neurology/surgery V/Q scan could not be completed Patient was declared brain by Neurology. As patient was breathing over the vent, Neurology second opinion was requested. Awaiting Neurology second opinion If proven Brain , no Cardiac intervention will be successful to change any outcome. At least: Anoxic Encephalopathy Echocardiogram revealed no WMA and also revealed good EF. It also revealed increased Pulmonary Artery Pressure in favor of component of Pulmonary Hypertension. Hematology follow up (to comment on prophylaxis / treatment of Pulmonary Emboli) Surgical follow up Nephrology follow up (started on hemodialysis) and Hematology follow up Secondary to active bleeding, we will avoid anticoagulation/antiplatelets for now Long-term prognosis depends on the above and most importantly regaining of the higher brain function: looks very grim Ischemic workup may be considered only after regaining higher brain function or any special change in clinical presentation Further evaluation and management depends on the above and clinical course Proceed with close observation for overt signs of fluid overload Proceed with strict intakes, outputs, and daily weights Proceed with close rate and rhythm surveillance Proceed with close hemodynamic surveillance Proceed with optimized blood pressure control Transfuse to sustain HGB levels above 7.0 Sustain Magnesium level greater than 2.0 Sustain Potassium level greater than 4.0 Follow up renal function and electrolytes Management in ICU Follow up wardrobe image consultant recommendations Will proceed to follow from a cardiac perspective Further recommendations per clinical progression All available labs, EKGs, and images were personally reviewed Patient's status, findings, and plan of care was discussed and reviewed with supervising physician Dr. Hall, who is in agreement with current plan of care. Plan of care discussed with and agreed upon by patient/family/Primary RN. Prognosis: Guarded Thank you for allowing me to participate in the care of this patient. Further recommendations will depend on clinical progression, hospitalist, and other consultants. Will continue to follow with Primary. If you have any questions, please do not hesitate to contact me. A total of 75 minutes was spent reviewing the patient record, examining the patient, making a diagnostic and therapeutic plan, discussing this plan with medical personnel, following up on diagnostic studies and following the patient for clinical stability excluding any and all procedures. At least 50% of this time was spent in direct, [id number] contact. Dietary Evaluation Review Recommendations by RD: PPN/TPN Comments: 1) Increase TPN rate to meet at least 75% of estimated daily needs 2) Advance to renal cardiac diet when medically feasible, pending ST approval 3) Follow-up with cardiology, pulmonology, nephrology, neurology, and gastroenterology 4) Continue to monitor I&O, labs, and skin integrity Expected Outcomes/Goals: 1) nutritional support to meet at least 75% of estimated daily needs 2) labs and wound to improve 3) diet to advance 4) gradual wt loss 5) f/u in 2-3 days Plan discussed with: Other (Mother ) EPIFANIO WHITAKER NP Feb 09, 2025 12:02
--- NOTE | 2025-02-09 19:17 | DVHPN2 ---
Progress Note Date Seen: Feb 09, 2025 Has the PT tested + for MRSA If YES, has PT been informed?: No Medical Necessity Reason Pt with a Central, PICC or Fol: Yes The following are medically ne: Central Line, Mora Catheter Reason for mora catheter: Nakul. Abd Surgery Subjective Review of Systems Pt seen at approximately 6 PM. Mother and brother present and updated. No changes. Remains with .5mcg/kg Levophed with labile BP. 550 mL u/o. 20 mL ss drain output. Objective vital signs Vital Sign Date Time Temp Pulse Resp B/P (MAP) Pulse Ox O2 Delivery O2 Flow Rate FiO2 02/09/25 18:45 98 14 149/79 (102) 97 145/87 (106) 02/09/25 18:10 Mechanical Ventilator+ 30 30 02/09/25 16:45 97.7 97.7 Total Intake and Output 02/08/25 02/08/25 02/09/25 15:00 23:00 07:00 Intake Total 646 ml 595.75 ml 415.438 ml Output Total 570 ml 550 ml Balance 646 ml 25.75 ml -134.562 ml medications Current Medications Medications Dose Ordered Sig/Serenity Route Start Time Stop Time Status Last Admin Dose Admin Midazolam HCl 50 ml @ 1 mls/hr Q24H IV 01/29/25 14:15 01/29/25 15:56 5 MLS/HR Phenylephrine HCl 250 ml @ 30 mls/hr Q8H20M IV 01/29/25 19:30 01/30/25 01:39 116.25 MLS/HR Levalbuterol HCl 0.625 mg Q4HR PRN NEB 01/29/25 20:00 02/09/25 10:20 0.625 MG Ipratropium [place] 0.5 mg Q4HPRN PRN NEB 01/29/25 20:00 02/09/25 10:20 0.5 MG Epinephrine HCl 250 ml @ 7.5 mls/hr Q24H IV 01/30/25 00:15 Vasopressin 20 units/Sodium Chloride 100 ml @ 9 mls/hr Q11H7M IV 01/30/25 07:30 02/03/25 13:09 9 MLS/HR Amino Acids 0 ml @ 0 mls/hr PER PHARMACY IV 02/01/25 11:15 Diagnostic Test (Pha) 1 strip Q6HR 02/01/25 18:00 02/09/25 18:06 1 STRIP Insulin Human Regular FOLLOW SLIDING SCALE Q6HR SC 02/01/25 18:00 02/02/25 11:36 2 UNITS Dextrose 50 ml UD IV 02/01/25 12:30 Epoetin Gunnar-epbx 4,000 unit MWF@2100 [place] 02/03/25 21:00 02/07/25 21:38 4,000 UNIT Piperacillin Sod/ Tazobactam Sod 100 ml @ 25 mls/hr Q8HR IV 02/03/25 14:00 02/09/25 14:04 25 MLS/HR Vancomycin HCl 0 ml @ 0 mls/hr UD IV 02/04/25 09:00 Sodium Chloride 10 ml QSHIFT@10,22 IV 02/04/25 22:00 02/09/25 10:39 10 ML Neomycin/ Polymyxin/ Bacitracin 1 applic DAILY TOP 02/06/25 10:00 02/09/25 10:39 1 APPLIC Bumetanide 2 mg BIDD IV 02/06/25 18:00 02/09/25 18:06 2 MG Norepinephrine Bitartrate 250 ml @ 0.938 mls/ hr Q24H IV 02/07/25 11:30 02/09/25 10:20 0.938 MLS/HR Artificial Tears 1 drop Q4HP PRN EACHEYE 02/08/25 07:30 Fat Emulsion Intravenous 50 ml/ Potassium Chloride 10 meq/ Potassium Phosphate 11 meq/ Magnesium Sulfate 2 meq/ Multivitamins 10 ml/Amino Acids/ Dextrose 1,168 ml @ 49 mls/hr [id number] IV 02/08/25 22:00 02/09/25 21:59 02/08/25 21:31 49 MLS/HR Pantoprazole Sodium 40 mg Q12HR IV 02/08/25 22:00 02/09/25 10:39 40 MG Fat Emulsion Intravenous 100 ml/Sodium Chloride 20 meq/ Potassium Chloride 10 meq/ Magnesium Sulfate 2 meq/ Multivitamins 10 ml/Amino Acids/ Dextrose 1,220.5 ml @ 51 mls/hr [id number] IV 02/09/25 22:00 02/10/25 21:59 Examination Neuro. Unchanged. Dilated fixed pupils. No reflexes. CV. Hr 90s, mildly hypotensive. Levophed at 0.5 mcg/kg. SBP fluctuating between 80s to 200s. LSCV and right PICC catheter exit sites remain C/D/I. Pulmonary: Intubated with mechanical ventilator support 500/14/30%/+7. RR 14.min now. GI: Soft, obese, non distended and non tender. Incision and dressing C/D/I. Drain with approximately 20 mL of thin serosanguienous fluid. OGT in place, 100 mL output, no further sanguineous ouput. ETT suction tubing with some sanguineous fluid. . Mora catheter in place. Clear yellow urine in collection bag Extremities; No edema Resolved facial and neck edema. Mild orbital edema laboratory and microbiology Laboratory Tests 02/09/25 09:27 02/09/25 04:00 Test 02/09/25 04:00 Range/Units Serum Glucose 95 74-106 mg/dL Microbiology Date/Time Source Procedure Growth Status 02/02/25 22:00 Urine - Mora Port Urine Culture - Final Complete 02/02/25 19:20 Blood Blood Culture - Final Staphylococcus epidermidis Complete 01/30/25 00:00 Nose MRSA Screen - Final Complete 01/29/25 10:43 Sputum Gram Stain - Final Complete 01/29/25 10:43 Sputum Respiratory Culture - Final Complete Labs and/or images reviewed: Labs reviewed by me Problem List/Assessment/Plan Problem List/Assessment/Plan Neuro: Appreciate neurology input and assistance. CT revealed cerebral edema and tonsillar herniation.EEG no electric activity. Cerebral perfusion study confirmed no perfusion radiographically consistent with brain which was concordant with initial clinical diagnosis and EEG. However, pt continues demonstrating brain stem function as he is breathing over vent set rate of 14. RR, also witnessed up to 20s by family. 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 However, given breathing over vent set RR, he is demonstrating some neurological activity which voids previous brain assessment. [employer] business representative has been informed and process has been placed on hold.Pt family requested second neurology opinion. Dr. Meneses evaluated the patient. He then informed the family Mother, brother present and sister (Angely, on telephone) about his findings being concordant with previous assessments. They are aware that the patient's prognosis is poor with regards to meaningful recovery, that he will likely remain in a comatose state. I was present during the examination and discussion At the completion of the discussion, they were given time for questions. they had none. In the evening mother asked for Dr. Meneses to speak to pt's sister (Angely), as she had some questions. Dr. Meneses called Angely and addressed her questions. Angely and pt's mother are requesting a neurosurgery consultation to address some questions. Unfortunately those services are not available in this institution. An attempt for transfer had been made was previously made by clinical case manager and it was rejected by [facility] secondary to herniation had already occurred. However, clinical case manager will find out if she can have a neurosurgery tele consult arranged with insurance. She will have some information on Monday morning, and we will reconvene in the afternoon to discuss limited options. As requested per Pt's mother and sister, I received a call from her cousin, Minda (BEATRIZ MCKEON form [employer]). The case was discussed to the best of my abilities as I can't speak for the neuro aspect of his condition, other than the basic information that has already been disclosed to the family before. CV: Hemodynamically stable at this time. 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 Now requiring vasopressor support. Cardiology assistance appreciated. Mechanical DVT prophylaxis. Unlikely PE (can't rulet it out) but patient oxygenating well, no tachycardia. Pulmonary hypertension possibly unknowingly preexistent. Pulmonary: VDRF. Continue ventilator. Appreciate pulmonary medicine assistance. CXR no effusion. Respiratory alkalosis resolved spontanouesly. Follow up ABG revealed respiratory acidosis. Therefore, increased Vt to 500. F/U ABG stable. Pulmonary medicine following.Will ask if VQ scan can be done to complete workup. Will have a discussion with family on Monday to discuss course of action.manager in training will attempt to make arrangements for neurosurgery teleconsultation to address family's questions. Pt's mother had previously stated she did not want the patient to remain on PVS (coma) as she didn't want to prolong his suffering. Mother and family still feel they have not exhausted all possibilities, in spite of multiple discussions about his meaningful recovery expectations and prognosis. GI: Continue NPO. Continue TPN. Continue BID GI prophylaxis. Hepatic shock, LFTs improving. Appreciate GI assistance. May need PEG/gastrostomy. A discussion will be held on Monday with pt's family to determine course of action. Mother and family continuing full care, in spite of multiple discussions about his prognosis. They still have strong nicko and beliefs he will recover. . ARF/ATN secondary to hemorrhagic shock. Worsening uremia. HD scheduled for tomorrow. Strict I&O. Stable u/o. Mora to gravity. Appreciate nephrology assistance. Replace/correct electrolytes. HD, Bumex and IVFs per nephrology. Heme/ID. Hemorrhagic shock resolved. Uremia, which may impact platelet function. Drain back to thin serosanguineous fluid, 20 mL this shift.No further sanguineous drainage from OGT. some sanguineous drainage from ETT suction tubing. Stable Hgb and thrombocytopenia, has resolved. Plts >150. Minimizing blood draw frequency to avoid worsening anemia. Will reserve blood draws for daily and only if clinically indicated at any given moment. Repeat labs AM. Appreciate hematology assistance. Mild leukocytosis. Repeat Bld Cx done, pending results. Staph epi bacteremia, sensitive to Vancomycin renal dose. Continue Zosyn and Vancomycin. Vancomycin adjustment by pharmacy. Endocrine: Tight glycemic control. Skin: Skin care and pressure ulcer precautions. Plan discussed with: Other (Mother, brother and RN) My Orders My Orders Orders - JITENDRA ZAMORA MD Procedure Category Date Status Time Complete Blood Count LAB 02/10/25 Verified 05:00 Complete Blood Count LAB 02/11/25 Verified 05:00 Complete Blood Count LAB 02/12/25 Verified 05:00 Complete Blood Count LAB 02/13/25 Verified 05:00 Complete Blood Count LAB 02/14/25 Verified 05:00 Nm Vq Scan NM 02/09/25 Logged 06:18 Amino Acid PHA 02/09/25 In Process Infusion... W/Fat 22:00 Comprehensive LAB 02/10/25 Verified Metabolic Panel 04:00 Magnesium LAB 02/10/25 Verified 04:00 Phosphorus LAB 02/10/25 Verified 04:00 Triglycerides LAB 02/10/25 Verified 04:00 Tpn Per Pharmacy YANET 02/09/25 In Process 22:00 Vancomycin,Random LAB 02/10/25 Verified 04:00 Dietary Evaluation Review Recommendations by RD: PPN/TPN Comments: 1) Increase TPN rate to meet at least 75% of estimated daily needs 2) Advance to renal cardiac diet when medically feasible, pending ST approval 3) Follow-up with cardiology, pulmonology, nephrology, neurology, and gastroenterology 4) Continue to monitor I&O, labs, and skin integrity Expected Outcomes/Goals: 1) nutritional support to meet at least 75% of estimated daily needs 2) labs and wound to improve 3) diet to advance 4) gradual wt loss 5) f/u in 2-3 days JITENDRA ZAMORA MD Feb 09, 2025 19:17
--- NOTE | 2025-02-09 19:24 | DVHPN2 ---
Subjective DOS: 02/07/2025 [facility] Patient seen and examined at bedside. Intubated on mechanical ventilator. Overnight events reviewed. HPI: A 24-year-old man with past medical history of asthma and gallstone pancreatitis who underwent laparoscopic cholecystectomy on 01/28/2025 in [facility]. Patient was discharged on same day; and as per medical records he developed nausea, vomiting and shortness of breath the night prior to presentation and woke up very weak; noted on AM of presentation with altered level of consciousness. Paramedics were called and patient was found to be in cardiac arrest. CPR was done, ROSC obtained; however patient had fixed and dilated pupils per ER documentation on arrival. CT abdomen/pelvis without contrast in ED revealed a hepatic hematoma measuring 8.6 cm with hemorrhage extending beyond the liver capsule into the right paracolic gutter as well as the pelvis. The patient was emergently taken back to surgery and underwent evacuation of a large hemoperitoneum,. was subsequently admitted to ICU. Pulmonary consultation is requested for evaluation and management of acute hypoxic respiratory failure requiring mechanical ventilator. Past Medical History: Asthma and gallstone pancreatitis Past Surgical History: Laparoscopic cholecystectomy on 01/28/2025 at [facility] Medications: Reviewed. Allergies: No known drug allergies. Family History: No family history of premature CAD. No family history of lung disorders. Social History: Nonsmoker. No alcohol or illicit drug use. Changes from previous H/P or p: No Changes Objective Vitals Vital Signs Date Time Temp Pulse Resp B/P (MAP) Pulse Ox O2 Delivery O2 Flow Rate FiO2 02/09/25 18:53 96 Mechanical Ventilator+ 30 30 02/09/25 18:53 97 14 131/67 (88) 02/09/25 16:45 97.7 97.7 Intake/Output Intake and Output 02/09/25 07:00 Intake Total 1657.188 ml Output Total 1120 ml Balance 537.188 ml IV Total 1657.188 ml Output Urine Total 1000 ml Gastric Drainage Total 80 ml Drainage Total 40 ml Exam Gen.: Patient lying in bed in medical ICU. Intubated on mechanical ventilator. Head: Normocephalic, atraumatic. Eyes: Pupils fixed and blown Ears: Normal external anatomy. Throat: Endotracheal tube and orogastric tube in place. Neck: Supple, trachea midline. Chest: Transmitted breath sounds bilaterally. Decreased air entry bilaterally. No wheezing. Bibasilar crackles. Cardiovascular: Positive S1, positive S2. Regular rate and rhythm. Abdomen: Positive bowel sounds in all 4 quadrants. Soft, nontender, nondistended. : Green in place. Normal external genitalia. Rectal: Deferred. Skin: Warm, dry. Intact. Extremities: 2+ radial pulses bilaterally. No lower extremity edema. Neuro: No responses to painful stimuli. Medications Current Medications Medications Dose Ordered Sig/Serenity Route Start Time Stop Time Status Last Admin Dose Admin Midazolam HCl 50 ml @ 1 mls/hr Q24H IV 01/29/25 14:15 01/29/25 15:56 5 MLS/HR Phenylephrine HCl 250 ml @ 30 mls/hr Q8H20M IV 01/29/25 19:30 01/30/25 01:39 116.25 MLS/HR Levalbuterol HCl 0.625 mg Q4HR PRN NEB 01/29/25 20:00 02/09/25 10:20 0.625 MG Ipratropium [place] 0.5 mg Q4HPRN PRN NEB 01/29/25 20:00 02/09/25 10:20 0.5 MG Epinephrine HCl 250 ml @ 7.5 mls/hr Q24H IV 01/30/25 00:15 Vasopressin 20 units/Sodium Chloride 100 ml @ 9 mls/hr Q11H7M IV 01/30/25 07:30 02/03/25 13:09 9 MLS/HR Amino Acids 0 ml @ 0 mls/hr PER PHARMACY IV 02/01/25 11:15 Diagnostic Test (Pha) 1 strip Q6HR 02/01/25 18:00 02/09/25 18:06 1 STRIP Insulin Human Regular FOLLOW SLIDING SCALE Q6HR [place] 02/01/25 18:00 02/02/25 11:36 2 UNITS Dextrose 50 ml UD IV 02/01/25 12:30 Epoetin Gunnar-epbx 4,000 unit MWF@2100 [place] 02/03/25 21:00 02/07/25 21:38 4,000 UNIT Piperacillin Sod/ Tazobactam Sod 100 ml @ 25 mls/hr Q8HR IV 02/03/25 14:00 02/09/25 14:04 25 MLS/HR Vancomycin HCl 0 ml @ 0 mls/hr UD IV 02/04/25 09:00 Sodium Chloride 10 ml QSHIFT@10,22 IV 02/04/25 22:00 02/09/25 10:39 10 ML Neomycin/ Polymyxin/ Bacitracin 1 applic DAILY TOP 02/06/25 10:00 02/09/25 10:39 1 APPLIC Bumetanide 2 mg BIDD IV 02/06/25 18:00 02/09/25 18:06 2 MG Norepinephrine Bitartrate 250 ml @ 0.938 mls/ hr Q24H IV 02/07/25 11:30 02/09/25 10:20 0.938 MLS/HR Artificial Tears 1 drop Q4HP PRN EACHEYE 02/08/25 07:30 Fat Emulsion Intravenous 50 ml/ Potassium Chloride 10 meq/ Potassium Phosphate 11 meq/ Magnesium Sulfate 2 meq/ Multivitamins 10 ml/Amino Acids/ Dextrose 1,168 ml @ 49 mls/hr [id number] IV 02/08/25 22:00 02/09/25 21:59 02/08/25 21:31 49 MLS/HR Pantoprazole Sodium 40 mg Q12HR IV 02/08/25 22:00 02/09/25 10:39 40 MG Fat Emulsion Intravenous 100 ml/Sodium Chloride 20 meq/ Potassium Chloride 10 meq/ Magnesium Sulfate 2 meq/ Multivitamins 10 ml/Amino Acids/ Dextrose 1,220.5 ml @ 51 mls/hr [id number] IV 02/09/25 22:00 02/10/25 21:59 Laboratory Results Laboratory Tests 02/09/25 04:00 02/09/25 09:27 Chemistry Test 02/09/25 04:00 Albumin 3.0 g/dL (3.2-4.8) L Calcium Level 9.1 mg/dL (8.7-10.4) Magnesium Level 2.2 mg/dL (1.6-2.6) Phosphorus Level 4.6 mg/dL (2.4-5.1) Total Protein 5.9 g/dL (5.7-8.2) Coagulation Test 02/09/25 04:00 Prothrombin Time 11.4 sec (9.3-11.8) Prothrombin Time INR 1.08 (0.9-1.15) Activated Partial Thromboplast Time 33.3 SEC (24.5-34.5) Fibrinogen 689 mg/dL (177-375) H LFT Test 02/09/25 04:00 Alanine Aminotransferase (ALT) 74 U/L (7-40) H Alkaline Phosphatase 416 U/L (46-116) H Aspartate Amino Transferase (AST) 200 U/L (13-40) H Total Bilirubin 2.1 mg/dL (0.2-1.0) H Urinalysis Test 01/29/25 09:54 01/29/25 14:15 Urine Color Light-orange (Yellow) Urine Clarity Turbid (Clear) H Urine pH 5.5 (5.0-9.0) Urine Specific [place] 1.017 (1.001-1.035) Urine Protein 2+ (Negative) H Urine Ketones Trace (Negative) Urine Blood 3+ /uL (Negative) H Urine Nitrite Negative (Negative) Urine Bilirubin Negative (Negative) Urine Urobilinogen Normal mg/dL (Negative) Urine Leukocyte Esterase Negative /uL (Negative) Urine RBC 130 /hpf (0 - 3) Urine Microscopic WBC < 1 /HPF (0-3) Urine Squamous Epithelial Cells Mod /hpf (<5) Urine Amorphous Crystals Few /hpf (None Seen) Urine Bacteria Few /hpf (None Seen) H Urine Glucose Trace mg/dL (Normal) Urine Creatinine 19.64 mg/dL (30.0-125.0) L Urine Sodium 98 mmol/L (40-220) Urine Total Protein 245.5 mg/dL (1-14) H Blood Gas Results Test 02/09/25 08:06 Arterial Blood pH 7.383 (7.350-7.450) FiO2 % 30.0 Microbiology Microbiology Date/Time Source Procedure Growth Status 02/02/25 22:00 Urine - [place] Urine Culture - Final Complete 02/02/25 19:20 Blood Blood Culture - Final Staphylococcus epidermidis Complete 01/30/25 00:00 Nose MRSA Screen - Final Complete 01/29/25 10:43 Sputum Gram Stain - Final Complete 01/29/25 10:43 Sputum Respiratory Culture - Final Complete Assessment/Plan Assessment/Plan Impression: Acute hypoxic respiratory failure On mechanical ventilator Status post cardiac arrest Possible anoxic brain injury NSTEMI, possible type 2 Hypovolemic shock Acute kidney injury secondary to hypovolemic shock Obesity, BMI 30.4 Multiorgan failure Events: Remains on vent support AC mode with RR 14, VT 500, PEEP 7, FiO2 30% ABG notable for alkalemia d/t metabolic alkalosis. VT was reduced to 450 mL. Pressors for hemodynamic support. On Levophed 3 mcg/min Titrate to keep MAP above 65 mmHg/SBP above 90 mmHg. Continue antibiotics - Zosyn. Monitor cultures Continue bronchodilators Continue Protonix for GI ppx TPN for nutritional support Continue Bumex drip for diuresis Follow up Nephrology recs Monitor renal function Monitor electrolytes. Supplement as necessary. Monitor ins and outs. TPN for nutritional support Monitor hemoglobin Transfuse if less than 7.0 g/dL Absent brainstem reflexes Signs of anoxic brain injury Poor chance of meaningful recovery. Second opinion Neurology consult recs appreciated - findings not c/w brain per Neuro Note, patient with pupils fixed and blown NM brain perfusion study c/w anoxic brain injury Poor chance of meaningful recovery Neurology recommendations appreciated Consider LTAC vs. trach/PEG vs. compassionate extubation. No cough or gag. Placed on CPAP with PS 20, PEEP 7. Patient noted to be overbreathing the vent Note, signing off care. Please re-consult as necessary. Dr. Moss, Dr. Juan covering. Please re-consult as necessary Labs and imaging reviewed. Rest of plan as noted below. Plan: s/p intubation on mechanical ventilator On assist control with respiratory rate of 14, tidal volume 500-->450, PEEP of 7, FiO2 of 30% Titrate FIO2 to keep O2 saturation above 92%. VAP bundle Daily ABG and CXR while intubated. Pressors as necessary for hemodynamic support. Titrate to keep MAP above 65 mmHg/SBP above 90 mmHg. Continue antibiotics. F/u cultures. Blood cultures no growth thus far Sputum culture grew normal oropharyngeal slava. Monitor hemoglobin Monitor renal function due to acute kidney injury. Monitor electrolytes. Supplement as necessary. Continue diuresis per Nephrology Monitor ins and outs Hemodialysis per nephrology Nutritional support. Accu-Cheks, ISS. GI/DVT prophylaxis. Condition: Critical Prognosis: Poor given multiple comorbidities. Rest of plan per hospitalist and other consultants. A total of 35 minutes of critical care time was spent reviewing the patient record, examining the patient, making a diagnostic and therapeutic plan, discussing this plan with the medical personnel, following up on diagnostic studies and following the patient for clinical stability excluding any and all procedures. At least 50% of this time was spent in direct, [id number] contact. Thank you for allowing me to participate in this patient's care. Further recommendations will depend on patient's clinical course. Please do not hesitate to contact me if you have any questions or concerns. This medical document was created using an electronic medical record system with [employer] dictation system. Although this document has been carefully reviewed, there may still be some phonetic and typographical errors. These areas are purely typographical due to imperfections of the software programs, and do not reflect any compromise in the patient's medical care. Plan discussed with: Other (MARY ANN Wood/) Date of Service: Feb 07, 2025 Billing Provider: NEHEMIAS BEASLEY MD Common Visit Codes: [id number] INP/OBS CARE(HIGH), [id number] CARE 30-74 MIN NEHEMIAS BEASLEY MD Feb 09, 2025 19:24
[2025-02-09] MEDS: TPN PER PHARMACY IV NR (21:49)
--- NOTE | 2025-02-09 23:01 | DVHPN2 ---
Subjective DOS: 02/08/2025 [facility] Patient seen and examined at bedside. Intubated on mechanical ventilator. Overnight events reviewed. HPI: A 24-year-old man with past medical history of asthma and gallstone pancreatitis who underwent laparoscopic cholecystectomy on 01/28/2025 in [facility]. Patient was discharged on same day; and as per medical records he developed nausea, vomiting and shortness of breath the night prior to presentation and woke up very weak; noted on AM of presentation with altered level of consciousness. Paramedics were called and patient was found to be in cardiac arrest. CPR was done, ROSC obtained; however patient had fixed and dilated pupils per ER documentation on arrival. CT abdomen/pelvis without contrast in ED revealed a hepatic hematoma measuring 8.6 cm with hemorrhage extending beyond the liver capsule into the right paracolic gutter as well as the pelvis. The patient was emergently taken back to surgery and underwent evacuation of a large hemoperitoneum,. was subsequently admitted to ICU. Pulmonary consultation is requested for evaluation and management of acute hypoxic respiratory failure requiring mechanical ventilator. Past Medical History: Asthma and gallstone pancreatitis Past Surgical History: Laparoscopic cholecystectomy on 01/28/2025 at [facility] Medications: Reviewed. Allergies: No known drug allergies. Family History: No family history of premature CAD. No family history of lung disorders. Social History: Nonsmoker. No alcohol or illicit drug use. Changes from previous H/P or p: No Changes Objective Vitals Vital Signs Date Time Temp Pulse Resp B/P (MAP) Pulse Ox O2 Delivery O2 Flow Rate FiO2 02/09/25 22:09 97 14 139/73 (95) 97 30 02/09/25 18:53 Mechanical Ventilator+ 02/09/25 16:45 97.7 97.7 Intake/Output Intake and Output 02/09/25 07:00 Intake Total 1657.188 ml Output Total 1120 ml Balance 537.188 ml IV Total 1657.188 ml Output Urine Total 1000 ml Gastric Drainage Total 80 ml Drainage Total 40 ml Exam Gen.: Patient lying in bed in medical ICU. Intubated on mechanical ventilator. Head: Normocephalic, atraumatic. Eyes: Pupils fixed and blown Ears: Normal external anatomy. Throat: Endotracheal tube and orogastric tube in place. Neck: Supple, trachea midline. Chest: Transmitted breath sounds bilaterally. Decreased air entry bilaterally. No wheezing. Bibasilar crackles. Cardiovascular: Positive S1, positive S2. Regular rate and rhythm. Abdomen: Positive bowel sounds in all 4 quadrants. Soft, nontender, nondistended. : Green in place. Normal external genitalia. Rectal: Deferred. Skin: Warm, dry. Intact. Extremities: 2+ radial pulses bilaterally. No lower extremity edema. Neuro: No responses to painful stimuli. Medications Current Medications Medications Dose Ordered Sig/Serenity Route Start Time Stop Time Status Last Admin Dose Admin Midazolam HCl 50 ml @ 1 mls/hr Q24H IV 01/29/25 14:15 01/29/25 15:56 5 MLS/HR Phenylephrine HCl 250 ml @ 30 mls/hr Q8H20M IV 01/29/25 19:30 01/30/25 01:39 116.25 MLS/HR Levalbuterol HCl 0.625 mg Q4HR PRN NEB 01/29/25 20:00 02/09/25 22:14 0.625 MG Ipratropium [place] 0.5 mg Q4HPRN PRN NEB 01/29/25 20:00 02/09/25 22:14 0.5 MG Epinephrine HCl 250 ml @ 7.5 mls/hr Q24H IV 01/30/25 00:15 Vasopressin 20 units/Sodium Chloride 100 ml @ 9 mls/hr Q11H7M IV 01/30/25 07:30 02/03/25 13:09 9 MLS/HR Amino Acids 0 ml @ 0 mls/hr PER PHARMACY IV 02/01/25 11:15 Diagnostic Test (Pha) 1 strip Q6HR 02/01/25 18:00 02/09/25 18:06 1 STRIP Insulin Human Regular FOLLOW SLIDING SCALE Q6HR AR 02/01/25 18:00 02/02/25 11:36 2 UNITS Dextrose 50 ml UD IV 02/01/25 12:30 Epoetin Gunnar-epbx 4,000 unit MWF@2100 [place] 02/03/25 21:00 02/07/25 21:38 4,000 UNIT Piperacillin Sod/ Tazobactam Sod 100 ml @ 25 mls/hr Q8HR IV 02/03/25 14:00 02/09/25 21:47 25 MLS/HR Vancomycin HCl 0 ml @ 0 mls/hr UD IV 02/04/25 09:00 Sodium Chloride 10 ml QSHIFT@10,22 IV 02/04/25 22:00 02/09/25 21:50 10 ML Neomycin/ Polymyxin/ Bacitracin 1 applic DAILY TOP 02/06/25 10:00 02/09/25 10:39 1 APPLIC Bumetanide 2 mg BIDD IV 02/06/25 18:00 02/09/25 18:06 2 MG Norepinephrine Bitartrate 250 ml @ 0.938 mls/ hr Q24H IV 02/07/25 11:30 02/09/25 10:20 0.938 MLS/HR Artificial Tears 1 drop Q4HP PRN EACHEYE 02/08/25 07:30 Pantoprazole Sodium 40 mg Q12HR IV 02/08/25 22:00 02/09/25 21:47 40 MG Fat Emulsion Intravenous 100 ml/Sodium Chloride 20 meq/ Potassium Chloride 10 meq/ Magnesium Sulfate 2 meq/ Multivitamins 10 ml/Amino Acids/ Dextrose 1,220.5 ml @ 51 mls/hr [id number] IV 02/09/25 22:00 02/10/25 21:59 02/09/25 21:49 51 MLS/HR Laboratory Results Laboratory Tests 02/09/25 04:00 02/09/25 09:27 Chemistry Test 02/09/25 04:00 Albumin 3.0 g/dL (3.2-4.8) L Calcium Level 9.1 mg/dL (8.7-10.4) Magnesium Level 2.2 mg/dL (1.6-2.6) Phosphorus Level 4.6 mg/dL (2.4-5.1) Total Protein 5.9 g/dL (5.7-8.2) Coagulation Test 02/09/25 04:00 Prothrombin Time 11.4 sec (9.3-11.8) Prothrombin Time INR 1.08 (0.9-1.15) Activated Partial Thromboplast Time 33.3 SEC (24.5-34.5) Fibrinogen 689 mg/dL (177-375) H LFT Test 02/09/25 04:00 Alanine Aminotransferase (ALT) 74 U/L (7-40) H Alkaline Phosphatase 416 U/L (46-116) H Aspartate Amino Transferase (AST) 200 U/L (13-40) H Total Bilirubin 2.1 mg/dL (0.2-1.0) H Urinalysis Test 01/29/25 09:54 01/29/25 14:15 Urine Color Light-orange (Yellow) Urine Clarity Turbid (Clear) H Urine pH 5.5 (5.0-9.0) Urine Specific [place] 1.017 (1.001-1.035) Urine Protein 2+ (Negative) H Urine Ketones Trace (Negative) Urine Blood 3+ /uL (Negative) H Urine Nitrite Negative (Negative) Urine Bilirubin Negative (Negative) Urine Urobilinogen Normal mg/dL (Negative) Urine Leukocyte Esterase Negative /uL (Negative) Urine RBC 130 /hpf (0 - 3) Urine Microscopic WBC < 1 /HPF (0-3) Urine Squamous Epithelial Cells Mod /hpf (<5) Urine Amorphous Crystals Few /hpf (None Seen) Urine Bacteria Few /hpf (None Seen) H Urine Glucose Trace mg/dL (Normal) Urine Creatinine 19.64 mg/dL (30.0-125.0) L Urine Sodium 98 mmol/L (40-220) Urine Total Protein 245.5 mg/dL (1-14) H Blood Gas Results Test 02/09/25 08:06 Arterial Blood pH 7.383 (7.350-7.450) FiO2 % 30.0 Microbiology Microbiology Date/Time Source Procedure Growth Status 02/02/25 22:00 Urine - [place] Urine Culture - Final Complete 02/02/25 19:20 Blood Blood Culture - Final Staphylococcus epidermidis Complete 01/30/25 00:00 Nose MRSA Screen - Final Complete 01/29/25 10:43 Sputum Gram Stain - Final Complete 01/29/25 10:43 Sputum Respiratory Culture - Final Complete Assessment/Plan Assessment/Plan Impression: Acute hypoxic respiratory failure On mechanical ventilator Status post cardiac arrest Possible anoxic brain injury NSTEMI, possible type 2 Hypovolemic shock Acute kidney injury secondary to hypovolemic shock Obesity, BMI 30.4 Multiorgan failure Events: Remains on vent support AC mode with RR 14, VT 450, PEEP 7, FiO2 30% Pressors for hemodynamic support. On Levophed 0.5 mcg/min Titrate to keep MAP above 65 mmHg/SBP above 90 mmHg. Improved pressor requirements Continue antibiotics - Zosyn. Monitor cultures Continue bronchodilators Continue Protonix for GI ppx TPN for nutritional support Continue Bumex drip for diuresis Follow up Nephrology recs Monitor renal function Monitor electrolytes. Supplement as necessary. Monitor ins and outs. TPN for nutritional support Monitor hemoglobin Transfuse if less than 7.0 g/dL Absent brainstem reflexes Signs of anoxic brain injury Second opinion Neurology consult recs appreciated - findings not c/w brain per Neuro Note, patient with pupils fixed and blown NM brain perfusion study c/w anoxic brain injury Poor chance of meaningful recovery Neurology recommendations appreciated Consider LTAC vs. trach/PEG vs. compassionate extubation. No cough or gag. Patient noted to be overbreathing the vent Overall poor prognosis w/ poor chance of meaningful recovery Labs and imaging reviewed. Rest of plan as noted below. Plan: s/p intubation on mechanical ventilator On assist control with respiratory rate of 14, tidal volume 450, PEEP of 7, FiO2 of 30% Titrate FIO2 to keep O2 saturation above 92%. VAP bundle Daily ABG and CXR while intubated. Pressors as necessary for hemodynamic support. Titrate to keep MAP above 65 mmHg/SBP above 90 mmHg. Continue antibiotics. F/u cultures. Blood cultures no growth thus far Sputum culture grew normal oropharyngeal slava. Monitor hemoglobin Monitor renal function due to acute kidney injury. Monitor electrolytes. Supplement as necessary. Continue diuresis per Nephrology Monitor ins and outs Hemodialysis per nephrology Nutritional support. Accu-Cheks, ISS. GI/DVT prophylaxis. Condition: Critical Prognosis: Poor given multiple comorbidities. Rest of plan per hospitalist and other consultants. A total of 35 minutes of critical care time was spent reviewing the patient record, examining the patient, making a diagnostic and therapeutic plan, discussing this plan with the medical personnel, following up on diagnostic studies and following the patient for clinical stability excluding any and all procedures. At least 50% of this time was spent in direct, [id number] contact. Thank you for allowing me to participate in this patient's care. Further recommendations will depend on patient's clinical course. Please do not hesitate to contact me if you have any questions or concerns. This medical document was created using an electronic medical record system with [employer] system. Although this document has been carefully reviewed, there may still be some phonetic and typographical errors. These areas are purely typographical due to imperfections of the software programs, and do not reflect any compromise in the patient's medical care. Plan discussed with: Other (MARY ANN Ospina) Date of Service: Feb 08, 2025 Billing Provider: NEHEMIAS BEASLEY MD Common Visit Codes: [id number] INP/OBS CARE(HIGH), [id number] CARE 30-74 MIN NEHEMIAS BEASLEY MD Feb 09, 2025 23:01
--- NOTE | 2025-02-09 23:36 | DVHPN2 ---
Subjective DOS: 02/09/2025 [facility] Patient seen and examined at bedside. Intubated on mechanical ventilator. Overnight events reviewed. HPI: A 24-year-old man with past medical history of asthma and gallstone pancreatitis who underwent laparoscopic cholecystectomy on 01/28/2025 in [facility]. Patient was discharged on same day; and as per medical records he developed nausea, vomiting and shortness of breath the night prior to presentation and woke up very weak; noted on AM of presentation with altered level of consciousness. Paramedics were called and patient was found to be in cardiac arrest. CPR was done, ROSC obtained; however patient had fixed and dilated pupils per ER documentation on arrival. CT abdomen/pelvis without contrast in ED revealed a hepatic hematoma measuring 8.6 cm with hemorrhage extending beyond the liver capsule into the right paracolic gutter as well as the pelvis. The patient was emergently taken back to surgery and underwent evacuation of a large hemoperitoneum,. was subsequently admitted to ICU. Pulmonary consultation is requested for evaluation and management of acute hypoxic respiratory failure requiring mechanical ventilator. Past Medical History: Asthma and gallstone pancreatitis Past Surgical History: Laparoscopic cholecystectomy on 01/28/2025 at [facility] Medications: Reviewed. Allergies: No known drug allergies. Family History: No family history of premature CAD. No family history of lung disorders. Social History: Nonsmoker. No alcohol or illicit drug use. Changes from previous H/P or p: No Changes Objective Vitals Vital Signs Date Time Temp Pulse Resp B/P (MAP) Pulse Ox O2 Delivery O2 Flow Rate FiO2 02/09/25 23:00 99 14 164/89 (114) 99 123/73 (90) 02/09/25 22:09 30 02/09/25 22:00 Mechanical Ventilator+ 02/09/25 20:00 97.0 97.0 Intake/Output Intake and Output 02/09/25 07:00 Intake Total 1657.188 ml Output Total 1120 ml Balance 537.188 ml IV Total 1657.188 ml Output Urine Total 1000 ml Gastric Drainage Total 80 ml Drainage Total 40 ml Exam Gen.: Patient lying in bed in medical ICU. Intubated on mechanical ventilator. Head: Normocephalic, atraumatic. Eyes: Pupils fixed and blown Ears: Normal external anatomy. Throat: Endotracheal tube and orogastric tube in place. Neck: Supple, trachea midline. Chest: Transmitted breath sounds bilaterally. Decreased air entry bilaterally. No wheezing. Bibasilar crackles. Cardiovascular: Positive S1, positive S2. Regular rate and rhythm. Abdomen: Positive bowel sounds in all 4 quadrants. Soft, nontender, nondistended. : Green in place. Normal external genitalia. Rectal: Deferred. Skin: Warm, dry. Intact. Extremities: 2+ radial pulses bilaterally. No lower extremity edema. Neuro: No responses to painful stimuli. Medications Current Medications Medications Dose Ordered Sig/Serenity Route Start Time Stop Time Status Last Admin Dose Admin Midazolam HCl 50 ml @ 1 mls/hr Q24H IV 01/29/25 14:15 01/29/25 15:56 5 MLS/HR Phenylephrine HCl 250 ml @ 30 mls/hr Q8H20M IV 01/29/25 19:30 01/30/25 01:39 116.25 MLS/HR Levalbuterol HCl 0.625 mg Q4HR PRN NEB 01/29/25 20:00 02/09/25 22:14 0.625 MG Ipratropium [place] 0.5 mg Q4HPRN PRN NEB 01/29/25 20:00 02/09/25 22:14 0.5 MG Epinephrine HCl 250 ml @ 7.5 mls/hr Q24H IV 01/30/25 00:15 Vasopressin 20 units/Sodium Chloride 100 ml @ 9 mls/hr Q11H7M IV 01/30/25 07:30 02/03/25 13:09 9 MLS/HR Amino Acids 0 ml @ 0 mls/hr PER PHARMACY IV 02/01/25 11:15 Diagnostic Test (Pha) 1 strip Q6HR 02/01/25 18:00 02/09/25 18:06 1 STRIP Insulin Human Regular FOLLOW SLIDING SCALE Q6HR SC 02/01/25 18:00 02/02/25 11:36 2 UNITS Dextrose 50 ml UD IV 02/01/25 12:30 Epoetin Gunnar-epbx 4,000 unit MWF@2100 [place] 02/03/25 21:00 02/07/25 21:38 4,000 UNIT Piperacillin Sod/ Tazobactam Sod 100 ml @ 25 mls/hr Q8HR IV 02/03/25 14:00 02/09/25 21:47 25 MLS/HR Vancomycin HCl 0 ml @ 0 mls/hr UD IV 02/04/25 09:00 Sodium Chloride 10 ml QSHIFT@10,22 IV 02/04/25 22:00 02/09/25 21:50 10 ML Neomycin/ Polymyxin/ Bacitracin 1 applic DAILY TOP 02/06/25 10:00 02/09/25 10:39 1 APPLIC Bumetanide 2 mg BIDD IV 02/06/25 18:00 02/09/25 18:06 2 MG Norepinephrine Bitartrate 250 ml @ 0.938 mls/ hr Q24H IV 02/07/25 11:30 02/09/25 10:20 0.938 MLS/HR Artificial Tears 1 drop Q4HP PRN EACHEYE 02/08/25 07:30 Pantoprazole Sodium 40 mg Q12HR IV 02/08/25 22:00 02/09/25 21:47 40 MG Fat Emulsion Intravenous 100 ml/Sodium Chloride 20 meq/ Potassium Chloride 10 meq/ Magnesium Sulfate 2 meq/ Multivitamins 10 ml/Amino Acids/ Dextrose 1,220.5 ml @ 51 mls/hr [id number] IV 02/09/25 22:00 02/10/25 21:59 02/09/25 21:49 51 MLS/HR Laboratory Results Laboratory Tests 02/09/25 04:00 02/09/25 09:27 Chemistry Test 02/09/25 04:00 Albumin 3.0 g/dL (3.2-4.8) L Calcium Level 9.1 mg/dL (8.7-10.4) Magnesium Level 2.2 mg/dL (1.6-2.6) Phosphorus Level 4.6 mg/dL (2.4-5.1) Total Protein 5.9 g/dL (5.7-8.2) Coagulation Test 02/09/25 04:00 Prothrombin Time 11.4 sec (9.3-11.8) Prothrombin Time INR 1.08 (0.9-1.15) Activated Partial Thromboplast Time 33.3 SEC (24.5-34.5) Fibrinogen 689 mg/dL (177-375) H LFT Test 02/09/25 04:00 Alanine Aminotransferase (ALT) 74 U/L (7-40) H Alkaline Phosphatase 416 U/L (46-116) H Aspartate Amino Transferase (AST) 200 U/L (13-40) H Total Bilirubin 2.1 mg/dL (0.2-1.0) H Urinalysis Test 01/29/25 09:54 01/29/25 14:15 Urine Color Light-orange (Yellow) Urine Clarity Turbid (Clear) H Urine pH 5.5 (5.0-9.0) Urine Specific [place] 1.017 (1.001-1.035) Urine Protein 2+ (Negative) H Urine Ketones Trace (Negative) Urine Blood 3+ /uL (Negative) H Urine Nitrite Negative (Negative) Urine Bilirubin Negative (Negative) Urine Urobilinogen Normal mg/dL (Negative) Urine Leukocyte Esterase Negative /uL (Negative) Urine RBC 130 /hpf (0 - 3) Urine Microscopic WBC < 1 /HPF (0-3) Urine Squamous Epithelial Cells Mod /hpf (<5) Urine Amorphous Crystals Few /hpf (None Seen) Urine Bacteria Few /hpf (None Seen) H Urine Glucose Trace mg/dL (Normal) Urine Creatinine 19.64 mg/dL (30.0-125.0) L Urine Sodium 98 mmol/L (40-220) Urine Total Protein 245.5 mg/dL (1-14) H Blood Gas Results Test 02/09/25 08:06 Arterial Blood pH 7.383 (7.350-7.450) FiO2 % 30.0 Microbiology Microbiology Date/Time Source Procedure Growth Status 02/02/25 22:00 Urine - [place] Urine Culture - Final Complete 02/02/25 19:20 Blood Blood Culture - Final Staphylococcus epidermidis Complete 01/30/25 00:00 Nose MRSA Screen - Final Complete 01/29/25 10:43 Sputum Gram Stain - Final Complete 01/29/25 10:43 Sputum Respiratory Culture - Final Complete Assessment/Plan Assessment/Plan Impression: Acute hypoxic respiratory failure On mechanical ventilator Status post cardiac arrest Possible anoxic brain injury NSTEMI, possible type 2 Hypovolemic shock Acute kidney injury secondary to hypovolemic shock Obesity, BMI 30.4 Multiorgan failure Events: Remains on vent support AC mode with RR 14, VT 450, PEEP 7, FiO2 30% Pressors for hemodynamic support. On Levophed 0.5 mcg/min Titrate to keep MAP above 65 mmHg/SBP above 90 mmHg. Improved pressor requirements Continue antibiotics - Zosyn. Monitor cultures Continue bronchodilators Continue Protonix for GI ppx TPN for nutritional support Continue Bumex drip for diuresis Follow up Nephrology recs Monitor renal function Monitor electrolytes. Supplement as necessary. Monitor ins and outs. TPN for nutritional support Monitor hemoglobin Transfuse if less than 7.0 g/dL Absent brainstem reflexes Signs of anoxic brain injury Second opinion Neurology consult recs appreciated - findings not c/w brain per Neuro Note, patient with pupils fixed and blown NM brain perfusion study c/w anoxic brain injury Poor chance of meaningful recovery Neurology recommendations appreciated Consider LTAC vs. trach/PEG vs. compassionate extubation. No cough or gag. Patient noted to be overbreathing the vent Overall poor prognosis w/ poor chance of meaningful recovery Labs and imaging reviewed. Rest of plan as noted below. Plan: s/p intubation on mechanical ventilator On assist control with respiratory rate of 14, tidal volume 450, PEEP of 7, FiO2 of 30% Titrate FIO2 to keep O2 saturation above 92%. VAP bundle Daily ABG and CXR while intubated. Pressors as necessary for hemodynamic support. Titrate to keep MAP above 65 mmHg/SBP above 90 mmHg. Continue antibiotics. F/u cultures. Blood cultures no growth thus far Sputum culture grew normal oropharyngeal slava. Monitor hemoglobin Monitor renal function due to acute kidney injury. Monitor electrolytes. Supplement as necessary. Continue diuresis per Nephrology Monitor ins and outs Hemodialysis per nephrology Nutritional support. Accu-Cheks, ISS. GI/DVT prophylaxis. Overall poor prognosis w/ poor chance of meaningful recovery Condition: Critical Prognosis: Poor given multiple comorbidities. Rest of plan per hospitalist and other consultants. A total of 35 minutes of critical care time was spent reviewing the patient record, examining the patient, making a diagnostic and therapeutic plan, discussing this plan with the medical personnel, following up on diagnostic studies and following the patient for clinical stability excluding any and all procedures. At least 50% of this time was spent in direct, [id number] contact. Thank you for allowing me to participate in this patient's care. Further recommendations will depend on patient's clinical course. Please do not hesitate to contact me if you have any questions or concerns. This medical document was created using an electronic medical record system with [employer] system. Although this document has been carefully reviewed, there may still be some phonetic and typographical errors. These areas are purely typographical due to imperfections of the software programs, and do not reflect any compromise in the patient's medical care. Plan discussed with: Other (MARY ANN Ospina) Date of Service: Feb 09, 2025 Billing Provider: NEHEMIAS BEASLEY MD Common Visit Codes: [id number] INP/OBS CARE(HIGH), [id number] CARE 30-74 MIN NEHEMIAS BEASLEY MD Feb 09, 2025 23:36
[2025-02-10] VITALS (108 sets, daily range): BP systolic 86–235; BP diastolic 43–130; PULSE 85–116; RESP 12–20; TEMP 96.8–98.6; O2SAT 95–100
[2025-02-10 03:57] LABS: Albumin 3.2 g/dL (3.2-4.8); Anion Gap 12 (5-15); BUN/Creatinine Ratio 12.2 (10.0-20.0); Calcium 9.3 mg/dL (8.7-10.4); Carbon Dioxide 27 mmol/L (20-31); Magnesium 2.5 mg/dL (1.6-2.6); Sodium 136 mmol/L (136-145); Total Protein 6.5 g/dL (5.7-8.2)
[2025-02-10 04:03] LABS: Alanine Aminotransferase 66 U/L (7-40); Alkaline Phosphatase 440 U/L (46-116); Bilirubin, Total 1.5 mg/dL (0.2-1.0); Chloride 97 mmol/L (98-107); Glucose 109 mg/dL (74-106)
[2025-02-10 04:04] LABS: Blood Urea Nitrogen 106 mg/dL (9-23); Potassium 5.7 mmol/L (3.5-5.1)
[2025-02-10 04:09] LABS: Hematocrit 28.8 % (41.0-53.0); Hemoglobin 9.8 g/dL (13.5-17.5); Mean Corpuscular Hemoglobin 30.1 pg (28.0-32.0); Mean Corpuscular Volume 88.1 fL (80.0-100.0)
--- NOTE | 2025-02-10 04:23 | DVH ---
CHEST RADIOGRAPH Indication: VDRF Technique: Single frontal view of the chest was obtained COMPARISON: XY CHEST PORTABLE on DOS: 02/09/25, XY CHEST PORTABLE on DOS: 02/08/25, XY CHEST XRAY 1 VIE W on DOS: 02/06/25, XY CHEST PORTABLE on DOS: 02/05/25, XY CHEST PORTABLE on DOS: 02/04/25 FINDINGS: Lines and Tubes: Slight interval retraction of the endotracheal tube such that the tip now projects a pproximately 3.3 cm above the level of the [place]ghan. Remaining lines and tubes unchanged. Lungs: Clear Pleura: No effusion. No pneumothorax. Cardiomediastinal contours: Unremarkable Bones: Unremarkable IMPRESSION: 1. Slight interval retraction of the endotracheal tube such that the tip now projects approximately 3 .3 cm above the level of the [place]ghan. Remaining lines and tubes unchanged. 2. No evidence of acute cardiopulmonary process.
[2025-02-10 05:20] LABS: Total Cells Counted 100.0 (100)
[2025-02-10 05:39] LABS: Triglycerides 183 mg/dL (< 150)
--- NOTE | 2025-02-10 06:22 | DVHPN2 ---
Progress Note Date Seen: Feb 10, 2025 Has the PT tested + for MRSA If YES, has PT been informed?: No Medical Necessity Reason Pt with a Central, PICC or Fol: Yes The following are medically ne: Central Line, Mora Catheter Reason for mora catheter: Nakul. Abd Surgery Subjective Review of Systems Pt seen at 555AM. No family at the bedside. Per RN no new events. Remains with labile BP, fluctuating between hypo and hypertension. Remains at Levo .5 mcg/kg. Some minimal bleeding/blood tinged has been noted with oral care and nostril care, in addition from ETT suction and previously noted self limited oozing from PICC and LSCV HD. Drain with minimal ss fluid Objective vital signs Vital Sign Date Time Temp Pulse Resp B/P (MAP) Pulse Ox O2 Delivery O2 Flow Rate FiO2 02/10/25 04:13 105 14 153/83 (106) 97 30 02/10/25 02:00 Mechanical Ventilator+ 02/10/25 00:00 97.2 97.2 Total Intake and Output 02/09/25 02/09/25 02/10/25 15:00 23:00 07:00 Intake Total 499.504 ml 428.814 ml 283 ml Output Total 590 ml 700 ml Balance 499.504 ml -161.186 ml -417 ml medications Current Medications Medications Dose Ordered Sig/Serenity Route Start Time Stop Time Status Last Admin Dose Admin Midazolam HCl 50 ml @ 1 mls/hr Q24H IV 01/29/25 14:15 01/29/25 15:56 5 MLS/HR Phenylephrine HCl 250 ml @ 30 mls/hr Q8H20M IV 01/29/25 19:30 01/30/25 01:39 116.25 MLS/HR Levalbuterol HCl 0.625 mg Q4HR PRN NEB 01/29/25 20:00 02/09/25 22:14 0.625 MG Ipratropium [place] 0.5 mg Q4HPRN PRN NEB 01/29/25 20:00 02/09/25 22:14 0.5 MG Epinephrine HCl 250 ml @ 7.5 mls/hr Q24H IV 01/30/25 00:15 Vasopressin 20 units/Sodium Chloride 100 ml @ 9 mls/hr Q11H7M IV 01/30/25 07:30 02/03/25 13:09 9 MLS/HR Amino Acids 0 ml @ 0 mls/hr PER PHARMACY IV 02/01/25 11:15 Diagnostic Test (Pha) 1 strip Q6HR 02/01/25 18:00 02/10/25 00:00 1 STRIP Insulin Human Regular FOLLOW SLIDING SCALE Q6HR RI 02/01/25 18:00 02/02/25 11:36 2 UNITS Dextrose 50 ml UD IV 02/01/25 12:30 Epoetin Gunnar-epbx 4,000 unit MWF@2100 RI 02/03/25 21:00 02/07/25 21:38 4,000 UNIT Piperacillin Sod/ Tazobactam Sod 100 ml @ 25 mls/hr Q8HR IV 02/03/25 14:00 02/09/25 21:47 25 MLS/HR Vancomycin HCl 0 ml @ 0 mls/hr UD IV 02/04/25 09:00 Sodium Chloride 10 ml QSHIFT@10,22 IV 02/04/25 22:00 02/09/25 21:50 10 ML Neomycin/ Polymyxin/ Bacitracin 1 applic DAILY TOP 02/06/25 10:00 02/09/25 10:39 1 APPLIC Bumetanide 2 mg BIDD IV 02/06/25 18:00 02/09/25 18:06 2 MG Norepinephrine Bitartrate 250 ml @ 0.938 mls/ hr Q24H IV 02/07/25 11:30 02/09/25 10:20 0.938 MLS/HR Artificial Tears 1 drop Q4HP PRN EACHEYE 02/08/25 07:30 Pantoprazole Sodium 40 mg Q12HR IV 02/08/25 22:00 02/09/25 21:47 40 MG Fat Emulsion Intravenous 100 ml/Sodium Chloride 20 meq/ Potassium Chloride 10 meq/ Magnesium Sulfate 2 meq/ Multivitamins 10 ml/Amino Acids/ Dextrose 1,220.5 ml @ 51 mls/hr [id number] IV 02/09/25 22:00 02/10/25 21:59 02/09/25 21:49 51 MLS/HR Examination Neuro. Unchanged. Dilated fixed pupils. No reflexes. CV. Hr 90s. Levophed at 0.5 mcg/kg. SBP fluctuating between 80s to 200s. LSCV and right PICC catheter exit sites remain C/D/I. Pulmonary: Intubated with mechanical ventilator support 500/14/30%/+7. Has remained with RR 14/min GI: Soft, obese, non distended and non tender. Incision and dressing C/D/I. Drain again thin serosanguineous fluid. OGT in place, no further sanguineous ouput. ETT suction tubing clean. However, RN stated there is some blood tinged fluid with suctioning.. . Mora catheter in place. Clear yellow urine in collection bag Extremities; No edema Resolved facial and neck edema. Mild orbital edema laboratory and microbiology Laboratory Tests 02/10/25 03:27 Test 02/10/25 03:27 Range/Units Serum Glucose 109 H 74-106 mg/dL Microbiology Date/Time Source Procedure Growth Status 02/09/25 03:40 Blood Blood Culture - Preliminary NO GROWTH AFTER 24 HOURS OF INCUBATION. 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 CT revealed cerebral edema and tonsillar herniation.EEG no electric activity. Cerebral perfusion study confirmed no perfusion radiographically consistent with brain which was concordant with initial clinical diagnosis and EEG. However, pt continues demonstrating brain stem function as he is breathing over vent set rate of 14. RR, also witnessed up to 20s by family. There seems to be autonomic dysfunction. Pt's BP fluctuating and RR has been closer to set vent rate, with some occasional witnessed above the vent rates up to 19 to 20/min. Will discuss with neuro. 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 However, given breathing over vent set RR, he is demonstrating some neurological activity which voids previous brain assessment. [employer] sales representative has been informed and process has been placed on hold.Pt family requested second neurology opinion. Dr. Meneses evaluated the patient. He then informed the family Mother, brother present and sister (Angely, on telephone) about his findings being concordant with previous assessments. They are aware that the patient's prognosis is poor with regards to meaningful recovery, that he will likely remain in a comatose state. I was present during the examination and discussion At the completion of the discussion, they were given time for questions. they had none. In the evening mother asked for Dr. Meneses to speak to pt's sister (Angely), as she had some questions. Dr. Meneses called Angely and addressed her questions. Angely and pt's mother are requesting a neurosurgery consultation to address some questions. Unfortunately those services are not available in this institution. An attempt for transfer had been made was previously made by counter caser and it was rejected by [facility] secondary to herniation had already occurred. However, counter caser will find out if she can have a neurosurgery tele consult arranged with insurance. She will attempt to arrange this morning. W will reconvene in the afternoon to discuss limited options. As requested per Pt's mother and sister, I received a call from her cousin, Minda (BEATRIZ MCKEON form [place]). The case was discussed to the best of my abilities as I can't speak for the neuro aspect of his condition, other than the basic information that has already been disclosed to the family before. CV: Hemodynamically stable at this time. 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 Now requiring vasopressor support. Cardiology assistance appreciated. Mechanical DVT prophylaxis. Unlikely PE (can't rulet it out) but patient oxygenating well, no tachycardia. Pulmonary hypertension possibly unknowingly preexistent. Pulmonary: VDRF. Continue ventilator. Appreciate pulmonary medicine assistance. CXR no effusion. ABG stable. Pulmonary medicine following. Second request for VQ scan denied as pt in on the ventilator and reportedly cannot be done because of that. Meeting later today to discuss course of action.biofuels technology manager will attempt to make arrangements for neurosurgery teleconsultation to address family's questions. Pt's mother had previously stated she did not want the patient to remain on PVS (coma) as she didn't want to prolong his suffering. Mother and family still feel they have not exhausted all possibilities, in spite of multiple discussions about his meaningful recovery expectations and prognosis. GI: Continue NPO. Continue TPN. Continue BID GI prophylaxis. Hepatic shock, LFTs improving. Appreciate GI assistance. May need PEG/gastrostomy. A discussion will be held on Monday with pt's family to determine course of action. Mother and family continuing full care, in spite of multiple discussions about his prognosis. They still have strong nicko and beliefs he will recover. . ARF/ATN secondary to hemorrhagic shock. Worsening uremia and hyperkalemia. HD scheduled for today. Strict I&O. Stable u/o. Mora to gravity. Appreciate nephrology assistance. Replace/correct electrolytes. HD, Bumex and IVFs per nephrology. Heme/ID. Hemorrhagic shock resolved. Uremia, which may impact platelet function. Drain with thin serosanguineous fluid. No further sanguineous drainage from OGT. some sanguineous drainage from ETT suction tubing. Stable Hgb and thrombocytopenia has resolved. Minimizing blood draw frequency to avoid worsening anemia. Will reserve blood draws for daily and only if clinically indicated at any given moment. Repeat labs AM. Appreciate hematology assistance. Mild leukocytosis. Repeat Bld Cx done, Negative todate. Leukocytosis 13. Staph epi bacteremia, sensitive to Vancomycin renal dose. Continue Zosyn and Vancomycin. Vancomycin adjustment by pharmacy. Endocrine: Tight glycemic control. Skin: Skin care and pressure ulcer precautions. Plan discussed with: Other (RN) My Orders My Orders Orders - JITENDRA ZAMORA MD Procedure Category Date Status Time Complete Blood Count LAB 02/11/25 Verified 05:00 Complete Blood Count LAB 02/12/25 Verified 05:00 Complete Blood Count LAB 02/13/25 Verified 05:00 Complete Blood Count LAB 02/14/25 Verified 05:00 Nm Vq Scan NM 02/09/25 Logged 06:18 Amino Acid PHA 02/09/25 In Process Infusion... W/Fat 22:00 Tpn Per Pharmacy YANET 02/09/25 In Process 22:00 Dietary Evaluation Review Recommendations by RD: PPN/TPN Comments: 1) Increase TPN rate to meet at least 75% of estimated daily needs 2) Advance to renal cardiac diet when medically feasible, pending ST approval 3) Follow-up with cardiology, pulmonology, nephrology, neurology, and gastroenterology 4) Continue to monitor I&O, labs, and skin integrity Expected Outcomes/Goals: 1) nutritional support to meet at least 75% of estimated daily needs 2) labs and wound to improve 3) diet to advance 4) gradual wt loss 5) f/u in 2-3 days JITENDRA ZAMORA MD Feb 10, 2025 06:22
[2025-02-10 07:21] LABS: Base Excess -3.2 mmol/L (-2.0-3.0)
--- NOTE | 2025-02-10 09:10 | DVHPN2 ---
Progress Note - Dictate Date Seen: Feb 10, 2025 Has the PT tested + for MRSA If YES, has PT been informed?: No Medical Necessity Reason Pt with a Central, PICC or Fol: Yes The following are medically ne: Central Line, Mora Catheter Reason for mora catheter: Nakul. Abd Surgery vital signs Vital Sign Date Time Temp Pulse Resp B/P (MAP) Pulse Ox O2 Delivery O2 Flow Rate FiO2 02/10/25 07:33 89 14 96/54 (68) 98 30 02/10/25 06:00 Mechanical Ventilator+ 02/10/25 04:00 97.2 97.2 Total Intake and Output 02/09/25 02/09/25 02/10/25 15:00 23:00 07:00 Intake Total 499.504 ml 428.814 ml 439 ml Output Total 590 ml 700 ml Balance 499.504 ml -161.186 ml -261 ml medications Current Medications Medications Dose Ordered Sig/Serenity Route Start Time Stop Time Status Last Admin Dose Admin Midazolam HCl 50 ml @ 1 mls/hr Q24H IV 01/29/25 14:15 01/29/25 15:56 5 MLS/HR Phenylephrine HCl 250 ml @ 30 mls/hr Q8H20M IV 01/29/25 19:30 01/30/25 01:39 116.25 MLS/HR Levalbuterol HCl 0.625 mg Q4HR PRN NEB 01/29/25 20:00 02/10/25 06:08 0.625 MG Ipratropium Bucklin 0.5 mg Q4HPRN PRN NEB 01/29/25 20:00 02/10/25 06:08 0.5 MG Epinephrine HCl 250 ml @ 7.5 mls/hr Q24H IV 01/30/25 00:15 Vasopressin 20 units/Sodium Chloride 100 ml @ 9 mls/hr Q11H7M IV 01/30/25 07:30 02/03/25 13:09 9 MLS/HR Amino Acids 0 ml @ 0 mls/hr PER PHARMACY IV 02/01/25 11:15 Diagnostic Test (Pha) 1 strip Q6HR 02/01/25 18:00 02/10/25 06:00 1 STRIP Insulin Human Regular FOLLOW SLIDING SCALE Q6HR SC 02/01/25 18:00 02/02/25 11:36 2 UNITS Dextrose 50 ml UD IV 02/01/25 12:30 Epoetin Gunnar-epbx 4,000 unit MWF@2100 SC 02/03/25 21:00 02/07/25 21:38 4,000 UNIT Piperacillin Sod/ Tazobactam Sod 100 ml @ 25 mls/hr Q8HR IV 02/03/25 14:00 02/09/25 21:47 25 MLS/HR Vancomycin HCl 0 ml @ 0 mls/hr UD IV 02/04/25 09:00 Sodium Chloride 10 ml QSHIFT@10,22 IV 02/04/25 22:00 02/09/25 21:50 10 ML Neomycin/ Polymyxin/ Bacitracin 1 applic DAILY TOP 02/06/25 10:00 02/09/25 10:39 1 APPLIC Bumetanide 2 mg BIDD IV 02/06/25 18:00 02/09/25 18:06 2 MG Norepinephrine Bitartrate 250 ml @ 0.938 mls/ hr Q24H IV 02/07/25 11:30 02/09/25 10:20 0.938 MLS/HR Artificial Tears 1 drop Q4HP PRN EACHEYE 02/08/25 07:30 Pantoprazole Sodium 40 mg Q12HR IV 02/08/25 22:00 02/09/25 21:47 40 MG Fat Emulsion Intravenous 100 ml/Sodium Chloride 20 meq/ Potassium Chloride 10 meq/ Magnesium Sulfate 2 meq/ Multivitamins 10 ml/Amino Acids/ Dextrose 1,220.5 ml @ 51 mls/hr [id number] IV 02/09/25 22:00 02/10/25 21:59 02/09/25 21:49 51 MLS/HR laboratory and microbiology Laboratory Tests 02/10/25 03:27 Test 02/10/25 03:27 Range/Units Serum Glucose 109 H 74-106 mg/dL Assessment/Plan Still in ICU. On vent support. Blood pressure stable. Off any pressure support. No gross higher brain reflexes. Pupils are dilated and fixed. Seen by Neurology: Hypoxic Encephalopathy No reported arrhythmia overnight Echocardiogram revealed no WMA and also revealed good EF. It also revealed increased Pulmonary Artery Pressure in favor of component of Pulmonary Hypertension. s/p Hemodialysis Received blood and platelet transfusion Patient is a 24-year-old gentleman who was originally brought to the hospital for post arrest. Patient is seen in postop area. Patient is intubated and on multiple pressor supports. Patient is not source of history. Information was obtained by reviewing the chart, talking to patient's family/mother and communicating with staff and reviewing outside records ([facility]). Patient did have elective outpatient laparoscopic cholecystectomy in [facility] on January 28 2025. As per mother, after going home, patient was feeling very hungry and was eating and drinking a lot. He started feeling abdominal pain with nausea at night and in the morning was short of breath. As per mother: patient has stopped breathing in the morning and family called 911. As per mother, as per guidance of 911, family started CPR until EMS arrived. Patient was intubated and was brought to the hospital by EMS. Since arrival to [facility], patient was seen by surgeon who took the patient to operating room and performed laparotomy (there was hepatic hematoma). Postoperatively, the patient has remained hypotensive. There is signs for multiorgan involvement. Patient was not alert and did not complain of any chest pains. Labs revealed increased troponin. Cardiology is involved for cardiac aspects of care and abnormal troponin. First available EKG reveals sinus tachycardia with no specific ST-T changes. Telemetry had revealed sinus tachycardia throughout the stay. Patient is found to have significant anemia and is receiving blood transfusion at the time of evaluation. It is of note that at the time of evaluation patient does not have any reflexes. Intubated. Mucosa pale. Dilated and fixed pupils, Scattered rhonchi in the lungs. Cardiac: Tachycardic. No murmur. Abdomen is covered by dressing. Extremities do not reveal any edema. Dorsalis pedis is 1+ bilateral. Patient does not respond to any stimuli. Reported past medical history includes asthma and obesity. Reportedly, on January 23, 2025: Patient presented to [facility] for abdominal pain/nausea/vomiting. At that point the problems were ongoing for few weeks. In [facility], CT of the abdomen and MRCP were performed. Patient was seen by GI/surgery. Patient was found to have gallstones. Patient was discharged and later on January 28, 2025 presented back to [facility] for elective laparoscopy cholecystectomy. Patient was discharged home from [facility] after laparoscopic cholecystectomy. As per mother, patient does not have baseline history of any cardiac history. As per mother, patient was using marijuana. Mother denies any previous substance abuse besides marijuana. No specific family history is reported On January 23, 2025, labs in [facility] revealed creatinine of 0.84, hemoglobin of 15.2 and troponin (high sensitive) of <3. At that point EKG was normal WBC: 20.1 - 19.0 - 22.7 - 20.6 - 28.4 - 20.3 - 21.0 - 25.2 - 29.8 - 29.5 - 29.0 - 26.2 - 21.7 - 19.7 - 17.7 - 15.3 - 12.2 - 10.5 - 11.2 - 13.0 Hemoglobin: 8.3 - 6.5 - 12.1 - 11.1 - 12.1 - 9.3 - 9.2 - 9.1 - 8.4 - 9.0 - 9.5 - 8.8 - 8.4 - 8.0 - 9.7 - 9.6 - 9.8 - 9.6 - 9.7 - 9.8 Fibrinogen: 108 - 316 - 537 - 689 Creatinine: 4.02 - 3.78 - 3.90 - 3.95 - 4.34 - 5.44 - 6.05 - 6.73 - 7.31 - 7.77 - 6.64 - 7.30 - 4.91 - 5.32 - 7.40 - 5.98 - 7.66 - 6.28 - 7.71 - 8.67 Potassium: 5.6 - 4.6 - 4.8 - 3.9 - 2.9 - 2.9 - 3.6 - 3.8 - 4.9 - 5.4 - 6.0 - 5.1 - 5.3 - 6.1 - 6.0 - 4.6 - 4.4 - 4.3 - 3.5 - 3.4 - 3.7 - 4.5 - 5.7 AST/ALT: 686/042 - 1987/6 - 3636/2521 - -/1995 - 2500/1989 - 1780/1821 - 808/995 - 586/735 - 456/444 - 312/290 - 237/163 - 215/125 - 190/87 - 200/74 - 202/66 Lactic acid: 17.9 - 17.2 - 11.4 Troponin (high sensitive): 2973 - 2712 - 4364 - 7493 - 7474 TSH: 11.05 Urine Toxicology: positive for Fentanyl and Benzodiazepine Chest x-ray revealed: Lines and Tubes: Endotracheal tube projects 2.2 cm above the meghan. Right internal jugular central venous catheter tip projects over superior vena cava. Lungs: No focal consolidation. Low lung volumes. Pleura: No effusion. No pneumothorax. Cardiomediastinal contours: Unremarkable Bones: No acute osseous abnormality. IMPRESSION: Lines and tubes as above. Low lung volumes. Repeat chest x-ray revealed: IMPRESSION: Lines and tubes in satisfactory position. Mild increased pulmonary vascular congestion Repeat chest xry revealed: IMPRESSION: Lines and tubes in satisfactory position. Mild increased pulmonary vascular congestion Repeat chest xry revealed: IMPRESSION: 1. Low lung volumes with concomitant crowding of the pulmonary vasculature. 2. No evidence of focal consolidation. 3. Lines and tubes unchanged. Repeat chest xry revealed: IMPRESSION: 1. Slight interval retraction of the endotracheal tube such that the tip now projects approximately 4.7 cm above the level of the meghan. Remaining lines and tubes unchanged. 2. Otherwise no significant change compared to prior exam. Repeat chest xry revealed: IMPRESSION: 1. Slight interval advancement of endotracheal tube such that the tip now projects approximately 1.7 cm above the level of the meghan. Remaining lines and tubes unchanged. 2. Otherwise no significant change compared to prior exam. Repeat chest xry revealed: IMPRESSION: 1. Slight interval retraction of the endotracheal tube such that the tip now projects approximately 3.3 cm above the level of the meghan. Remaining lines and tubes unchanged. 2. No evidence of acute cardiopulmonary process. Repeat chest xry revealed: IMPRESSION: 1. Endotracheal tube in appropriate position. Remaining lines and tubes unchanged. 2. No evidence of acute cardiopulmonary process. Repeat chest xry revealed: IMPRESSION: 1. Small right pleural effusion. 2. Lines and tubes unchanged. Repeat chest xry revealed: IMPRESSION: 1. Small right pleural effusion. 2. Lines and tubes unchanged. Repeat chest xry revealed: IMPRESSION: 1. Small bilateral pleural effusions. 2. Lines and tubes unchanged. Repeat chest xry revealed: IMPRESSION: 1. Slight interval advancement of the endotracheal tube. Remaining lines and tubes unchanged. 2. No evidence of acute cardiopulmonary process. Repeat chest xry revealed: IMPRESSION: 1. Slight interval retraction of the endotracheal tube such that the tip now projects approximately 3.3 cm above the level of the meghan. Remaining lines and tubes unchanged. 2. No evidence of acute cardiopulmonary process. Brain scan revealed: FINDINGS: Absence of cerebral blood flow is noted along with no brain parenchymal radiotracer uptake. Increased activity is seen in the central face likely representing vascular shunting consistent with the so-called "hot nose" sign. Findings suggest brain however clinical correlation is necessary. IMPRESSION: Findings described above, which would be consistent with brain in the appropriate clinical setting, however clinical correlation is needed. CT of the chest/abdomen/pelvis revealed: IMPRESSION: 1. Hepatic hematoma measuring up to approximately 8.6 cm in greatest dimension, as described above, with hemorrhage extending beyond the liver capsule and into the right pericolic gutter as well as into the pelvis. No definite active arterial bleeding is seen on this exam, although limited evaluation due to the timing of contrast, as this was not a CTA exam. 2. Postsurgical changes of cholecystectomy. 3. Dilated fluid-filled small bowel loops, may be due to postoperative ileus. No small bowel obstruction. 4. Small volume pneumoperitoneum, likely due to recent surgery. Small volume of gas are seen in the upper ventral abdomen from the recent surgery. 5. Dependent atelectasis in the lower lobes. Otherwise, no acute disease in the chest. 6. Endotracheal tube and enteric tube in place. 7. Atrophic right kidney incidentally noted. 8. Additional findings as described above. Critical findings Critical Result: Acute hepatic hematoma with hemorrhage extending beyond the liver capsule into the adjacent portions of the abdomen and into the pelvis as detailed above. Repeat CT of chest/abdomen/pelvis revealed: There is limited interpretation of the chest, abdomen and pelvis without administration of intravenous contrast. Endotracheal tube tip terminates just at the meghan / left main bronchus. Diffuse bilateral pulmonary airspace consolidation bilaterally significantly increased. Bilateral lower lobe lobar consolidation/ atelectasis, increased from prior. Small bilateral pleural effusions. There is extensive edema/ stranding within the upper anterior chest, neck region/supraclavicular region. There is some hyperdensity within this region which could represent components of hematoma / blood products. Heterogeneous appearance of the thyroid gland. Right IJ catheter terminating at the cavoatrial junction. Adrenal glands unremarkable in shape. Perisplenic hematoma. Interval postsurgical changes in the right upper quadrant of the abdomen. There appears to be surgicel/gaseous collection within the previous hematoma cavity, likely representing surgicel. There is a radiopaque density within the resection cavity as well which measures 6.2 x 4.6 cm.. Postoperative changes of the right anterior abdomen with soft tissue emphysema. Small amount of pneumoperitoneum Surgical drainage catheter terminating in the right upper quadrant of the abdomen Right renal parenchymal atrophy. Left kidney demonstrates perinephric edema / stranding. No left hydronephrosis. Nasogastric tube projects towards the distal stomach. Moderate distention small bowel loops. Rectal catheter. Moderate distention of the large bowel loops. Normal appendix. Abdominal aorta normal in caliber. Small amount of ascites fluid/ mesenteric edema. Bladder decompressed by Mora catheter. Soft tissue edema /anasarca. Mesenteric edema. Small amount of ascites fluid. The osseous structures are stable. IMPRESSION: Limited evaluation without contrast. Interval evacuation of the right upper quadrant hematoma. Surgicel within the resection cavity. No significant interval development of new hematoma. There are 2 radiopaque lap pads within the resection cavity . Findings reviewed with Dr. Ledesma at 11:51 a.m. on 01/30/2025 Perisplenic hematoma, similar to previous examination. Extensive bilateral pulmonary airspace consolidation, significantly increased from previous examination. Small bilateral pleural effusions. Right upper quadrant drainage catheter. Pneumoperitoneum. Soft tissue edema / anasarca. Small amount of ascites fluid/ mesenteric edema. Extensive edema within the anterior chest, neck region. Heterogeneous appearance thyroid gland. Other findings as described. CT of the head revealed: IMPRESSION: 1. No evidence of acute intracranial abnormality. Repeat CT of head revealed: FINDINGS: Cerebellar tonsilar herniation. There is sulcal and ventricular effacement. The basal cisterns are effaced. Loss of mario-white matter differentiation is noted. The skull and visible facial bones are intact. The paranasal sinuses, mastoid air cells and middle ear cavities are well-aerated. The soft tissues of the scalp are unremarkable. IMPRESSION: Diffuse cerebral edema with cerebellar tonsillar herniation. Recommend MRI brain for further evaluation. CT of Neck revealed: IMPRESSION: Limited evaluation without contrast. Extensive soft tissue edema within the neck extending into the anterior / upper chest and anterior mediastinum . Retropharyngeal edema. Heterogeneous appearance of the thyroid gland. Inferior cerebellar tonsillar herniation better seen on the prior CT Renal Ultrasound revealed: IMPRESSION: 1. Right kidney not visible. 2. Left kidney is enlarged. 3. No hydronephrosis. Venous duplex of lower ext revealed: IMPRESSION: NO SONOGRAPHIC EVIDENCE FOR DEEP VENOUS THROMBOSIS IN THE RIGHT LOWER EXTREMITY VEINS. EEG reported: This is a remarkably abnormal EEG, this EEG seen in severe cerebral dysfunction due to metabolic/hypoxic encephalopathy or medication effects, unless this is caused by reversible etiology, this EEG is suggestive of a poor prognosis for meaningful recovery, please correlate clinically. Arrival EKG revealed sinus tachycardia with nonspecific ST-T changes Tele reveals sinus tachycardia Echocardiogram revealed: Technically limited study secondary to poor acoustic windows. Left ventricle: Left ventricle was normal-sized with normal systolic function. LVEF was 55-60%. No gross wall motion abnormality was seen. Right ventricle was mildly dilated with normal systolic function. Left atrium was normal-sized. Right atrium was mildly dilated. Aortic valve: Aortic valve was not well visualized. There was no aortic insufficiency/stenosis. There was no mitral regurgitation. There was trace tricuspid regurgitation. Pulmonary valve was not well visualized. IVC was not visualized. Right ventricular systolic pressure was assessed around 48 mm Hg. There was no pericardial effusion. Patient is a 24-year-old gentleman who presented with post arrest. It seems that the patient had hemorrhagic (intra-abdominal) presentation. Patient did have elective laparoscopic cholecystectomy the day before presentation. On the day of presentation, the patient was taken back to operating room and this time Laparotomy was done for hepatic hematoma. Patient does have multiorgan involvement. Clinically there is no brainstem reflexes. Shock liver/acute renal failure is considered. Troponin has been high. EKG did not reveal any STEMI. Presentation could be high troponin secondary to demand physiology. Patient does not have any risk factors for baseline coronary artery disease. In ideal scenario, ischemic workup/cardiac catheterization could be more revealing. Unfortunately, the patient does have acute renal failure which could be worsened by cardiac catheterization at this point. As there was no higher brain functions the suggestion is to wait and see if patient regains any higher brain function. It is of note that during cardiac catheterization, the patient may need some anticoagulation/antiplatelets. At this point patient is having significant anemia/bleeding and receiving blood transfusion and holding off of scenario forcing Anticoagulation/antiplatelets is advised. I had a long discussion with family members and Mother (repeatedly). Clinically patient has multiorgan failure. Secondary to active bleeding, we will avoid anticoagulation/antiplatelets for now. Being managed in ICU. Was taken to OR repeatedly. Still no reflexes. Echocardiogram revealed no WMA and also revealed good EF. It also revealed increased Pulmonary Artery Pressure in favor of component of Pulmonary Hypertension. Review of Echo images revealed good right ventricular systolic function. Not typical for Pulmonary Emboli. Still, PE cannot be ruled out. If PE is ruled out, then it is possible that patient had Pulmonary Hypertension from before (Baseline history of Asthma may actually reflect it). s/p PRBC transfusion (multiple). Being followed by Surgery, Nephrology, Hematology, Pulmonary, Neurology and GI. . Repeat imaging revealed cerebellar tonsillar herniation. Neurology diagnosed Hypoxic/Metabolic Encephalopathy also. EEG findings question meaningful recovery. Neurology declared patient: brain . s/ p Arrest Intra-abdominal bleeding Hepatic hematoma Multiorgan failure, due to shock Shock liver Lactic Acidosis Acute renal failure Acute respiratory failure, on vent support Status post laparotomy Status post laparoscopic cholecystectomy Abnormal troponin, evaluated to reflect possible demand physiology History of gallstones History of asthma Obesity History of marijuana abuse Consumptive Coagulopathy / DIC Pulmonary Hypertension Cerebellar tonsillar Herniation. Encephalopathy, hypoxic/metabolic Renal failure, started on hemodialysis Brain scan questions brain Anoxic Encephalopathy Cardiac suggestion for management: Manage in ICU Follow-up electrolytes and kidney function tests and correct abnormalities Evaluation and management of respiratory failure as per Pulmonary Evaluation and management of Cerebellar tonsillar herniation as per Neurology/surgery V/Q scan could not be completed Anoxic/Hypoxic Encephalopathy Echocardiogram revealed no WMA and also revealed good EF. It also revealed increased Pulmonary Artery Pressure in favor of component of Pulmonary Hypertension. Hematology follow up (to comment on prophylaxis / treatment of Pulmonary Emboli) Surgical follow up Nephrology follow up (started on hemodialysis) and Hematology follow up Secondary to active bleeding, we will avoid anticoagulation/antiplatelets for now Long-term prognosis depends on the above and most importantly regaining of the higher brain function: looks very grim Ischemic workup may be considered only after regaining higher brain function or any special change in clinical presentation Further evaluation and management depends on the above and clinical course A total of 75 minutes was spent reviewing the patient record, examining the patient, making a diagnostic and therapeutic plan, discussing this plan with medical personnel, following up on diagnostic studies and following the patient for clinical stability excluding any and all procedures. At least 50% of this time was spent in direct, [id number] contact. Thank you for allowing me to participate in this patient's care. Further recommendations will depend on patient's clinical course. Please do not hesitate to contact me if you have any questions or concerns. This medical document was created using electronic medical record system with [employer] computerized dictation system. Although this document has been carefully reviewed, there may still be some phonetic and typographical errors. These areas are purely typographical due to the imperfection of the software programs, and do not reflect any compromise in the patient's medical care. Dietary Evaluation Review Recommendations by RD: PPN/TPN Comments: 1) Increase TPN rate to meet at least 75% of estimated daily needs 2) Advance to renal cardiac diet when medically feasible, pending ST approval 3) Follow-up with cardiology, pulmonology, nephrology, neurology, and gastroenterology 4) Continue to monitor I&O, labs, and skin integrity Expected Outcomes/Goals: 1) nutritional support to meet at least 75% of estimated daily needs 2) labs and wound to improve 3) diet to advance 4) gradual wt loss 5) f/u in 2-3 days Plan discussed with: Other (nurse) KATHLEEN COHEN MD Feb 10, 2025 09:10
[2025-02-10] MEDS: VANCOMYCIN 500mg/100mL 100 ML IV ONE (11:34)
--- NOTE | 2025-02-10 12:28 | DVH ---
Date: 02/10/2025 11:06 AM Examination: XY CHEST PORTABLE History: OGT PLACEMENT Comparison: XY CHEST PORTABLE on DOS: 02/10/25, XY CHEST PORTABLE on DOS: 02/09/25, XY CHEST PORTABLE o n DOS: 02/08/25, XY CHEST XRAY 1 VIEW on DOS: 02/06/25, XY CHEST PORTABLE on DOS: 02/05/25 TECHNIQUE: Frontal views of the abdomen was obtained. FINDINGS/IMPRESSION: Bowel gas pattern is unremarkable. Enteric tube tip projects over the expected region of the stomach. The lung bases demonstrates bibasilar atelectasis. The lower pelvis is collimated from field of view. No acute osseous abnormality identified.
--- NOTE | 2025-02-10 17:06 | DVHPN2 ---
Progress Note Date Seen: Feb 10, 2025 Has the PT tested + for MRSA If YES, has PT been informed?: No Medical Necessity Reason Pt with a Central, PICC or Fol: Yes The following are medically ne: Central Line, Mora Catheter Reason for mora catheter: Nakul. Abd Surgery Subjective Review of Systems Patient is sedated and intubated. Patient has received multiple blood products over this admission: PRBCs on 01/29 (3 units), 02/03, 02/04. Platelets (pheresis, psoralen-treated) on 02/01 and 02/02. Cryoprecipitate on 01/29 (to correct hypofibrinogenemia). FFP on 01/29 and 02/02. Total: At least 5 units PRBCs, 2 units FFP, 1 unit cryo, 2 platelet transfusions. Patient continues to have minimal oozing from several sites. Notably, his hemoglobin has remained stable without requiring blood transfusions for over a week. Objective vital signs Vital Sign Date Time Temp Pulse Resp B/P (MAP) Pulse Ox O2 Delivery O2 Flow Rate FiO2 02/10/25 16:15 93 14 153/87 (109) 99 02/10/25 16:00 30 02/10/25 16:00 Mechanical Ventilator+ 02/10/25 15:00 97.3 97.3 Total Intake and Output 02/09/25 02/09/25 02/10/25 15:00 23:00 07:00 Intake Total 499.504 ml 428.814 ml 490.938 ml Output Total 590 ml 700 ml Balance 499.504 ml -161.186 ml -209.062 ml medications Current Medications Medications Dose Ordered Sig/Serenity Route Start Time Stop Time Status Last Admin Dose Admin Midazolam HCl 50 ml @ 1 mls/hr Q24H IV 01/29/25 14:15 01/29/25 15:56 5 MLS/HR Phenylephrine HCl 250 ml @ 30 mls/hr Q8H20M IV 01/29/25 19:30 01/30/25 01:39 116.25 MLS/HR Levalbuterol HCl 0.625 mg Q4HR PRN NEB 01/29/25 20:00 02/10/25 06:08 0.625 MG Ipratropium [place] 0.5 mg Q4HPRN PRN NEB 01/29/25 20:00 02/10/25 06:08 0.5 MG Epinephrine HCl 250 ml @ 7.5 mls/hr Q24H IV 01/30/25 00:15 Vasopressin 20 units/Sodium Chloride 100 ml @ 9 mls/hr Q11H7M IV 01/30/25 07:30 02/03/25 13:09 9 MLS/HR Amino Acids 0 ml @ 0 mls/hr PER PHARMACY IV 02/01/25 11:15 Diagnostic Test (Pha) 1 strip Q6HR 02/01/25 18:00 02/10/25 11:33 1 STRIP Insulin Human Regular FOLLOW SLIDING SCALE Q6HR SC 02/01/25 18:00 02/02/25 11:36 2 UNITS Dextrose 50 ml UD IV 02/01/25 12:30 Epoetin Gunnar-epbx 4,000 unit MWF@2100 PR 02/03/25 21:00 02/07/25 21:38 4,000 UNIT Piperacillin Sod/ Tazobactam Sod 100 ml @ 25 mls/hr Q8HR IV 02/03/25 14:00 02/10/25 13:30 25 MLS/HR Vancomycin HCl 0 ml @ 0 mls/hr UD IV 02/04/25 09:00 Sodium Chloride 10 ml QSHIFT@10,22 IV 02/04/25 22:00 02/10/25 10:31 10 ML Neomycin/ Polymyxin/ Bacitracin 1 applic DAILY TOP 02/06/25 10:00 02/10/25 10:31 1 APPLIC Bumetanide 2 mg BIDD IV 02/06/25 18:00 02/10/25 10:30 2 MG Norepinephrine Bitartrate 250 ml @ 0.938 mls/ hr Q24H IV 02/07/25 11:30 02/10/25 10:31 0.938 MLS/HR Artificial Tears 1 drop Q4HP PRN EACHEYE 02/08/25 07:30 Pantoprazole Sodium 40 mg Q12HR IV 02/08/25 22:00 02/10/25 10:30 40 MG Fat Emulsion Intravenous 100 ml/Sodium Chloride 20 meq/ Potassium Chloride 10 meq/ Magnesium Sulfate 2 meq/ Multivitamins 10 ml/Amino Acids/ Dextrose 1,220.5 ml @ 51 mls/hr [id number] IV 02/09/25 22:00 02/10/25 21:59 02/09/25 21:49 51 MLS/HR Fat Emulsion Intravenous 100 ml/Sodium Chloride 30 meq/ Multivitamins 10 ml/Amino Acids/ Dextrose 1,217.5 ml @ 51 mls/hr [id number] IV 02/10/25 22:00 02/11/25 21:59 Examination Neuro. Unchanged. Dilated fixed pupils. No reflexes. Pulmonary: Intubated with mechanical ventilator support. GI: Soft, obese, non distended and non tender. Incision and dressing C/D/I. Drain again minimal serosanguineous fluid. OGT in place, dark ouput. ETT suction tubing clean. . Mora catheter in place. Clear yellow urine in collection bag Extremities; No edema Right PICC catheter exit sites remain C/D/I. laboratory and microbiology Laboratory Tests 02/10/25 03:27 Test 02/10/25 03:27 Range/Units Serum Glucose 109 H 74-106 mg/dL Microbiology Date/Time Source Procedure Growth Status 02/09/25 03:40 Blood Blood Culture - Preliminary NO GROWTH AFTER 24 HOURS OF INCUBATION. Resulted 02/02/25 22:00 Urine - [place] Urine Culture - Final Complete 01/30/25 00:00 Nose MRSA Screen - Final Complete 01/29/25 10:43 Sputum Gram Stain - Final Complete 01/29/25 10:43 Sputum Respiratory Culture - Final Complete Labs and/or images reviewed: Labs reviewed by nj Problem List/Assessment/Plan Problem List/Assessment/Plan Mr. Gillis is a 24-year-old man s/p laparoscopic cholecystectomy (01/28/25) complicated by postoperative hemorrhage and hemorrhagic shock, requiring re- exploration (01/29/25). His ICU course has been marked by progressive anemia, initial consumptive coagulopathy/DIC physiology, ischemic hepatitis, severe HARLEEN, lactic acidosis, and myocardial injury. Coagulation parameters have normalized (INR 1.08, fibrinogen >600, platelets >200K), but patient continues to ooze from IV sites and mucosa. This is most consistent with qualitative platelet dysfunction in the setting of severe uremia and critical illness/endothelial injury. No evidence to suggest inherited bleeding disorder or TTP. Bleeding/Coagulopathy: --Initially consistent with shock-induced DIC: prolonged PT/aPTT, hypofibrinogenemia, thrombocytopenia, schistocytes. --With aggressive transfusion support, INR and aPTT normalized, fibrinogen now elevated (>600), and platelets recovered to 205K. --Despite this, he continues to ooze from IV sites and mucosa. This bleeding is not explained by current coagulation parameters. --Most consistent with qualitative platelet dysfunction from severe uremia (BUN >100, Cr ~8) and critical illness/endothelial injury. --Occasional schistocytes seen, but overall clinical/laboratory trajectory does not support TTP (platelets improved without plasma exchange, no ongoing MAHA, clinical context fits shock/DIC rather than primary microangiopathy). --Inherited bleeding disorder is also very unlikely (no personal/family history). Other organ dysfunction: --Renal: Severe HARLEEN, likely ischemic ATN; contributing to bleeding diathesis. --Hepatic: Ischemic hepatitis with transaminitis (AST >200, ALT 66, Alk Phos 440). --Cardiac: Myocardial injury with elevated troponin. --Metabolic: Lactic acidosis improving but persistent. --Overall: Multiorgan dysfunction with poor prognosis. Extensive discussion with patient's family regarding current bleeding status and potential underlying causes. Family expressed significant distress regarding the patient's condition and surgical complications. I explained that the patient's bleeding profile has significantly improved with normalization of clotting parameters and stable hemoglobin without need for further transfusions. While initial presentation was concerning for DIC (disseminated intravascular coagulation), this appears to have resolved. Current minimal oozing is not clinically significant enough to warrant additional interventions at this time. Family reports patient has no prior history of bleeding disorders, though paternal family history is limited. To provide complete evaluation and reassurance, will check for von Willebrand disease, though clinical suspicion is low given patient's age and lack of prior bleeding history. Plan: Hematology / Coagulopathy Management --No further cryoprecipitate or FFP indicated at this time (fibrinogen elevated, INR/PTT normal). --Maintain hemoglobin >8 g/dL (higher target may be reasonable given myocardial injury). --Platelets: transfuse only if <50K (or <41303Y if re-exploration/active bleeding). --Trial of DDAVP 0.3 mcg/kg IV once to address uremic platelet dysfunction; repeat dose only if clear clinical benefit. --Avoid additional PCC unless life-threatening bleeding with INR >2. --Given ongoing oozing, will check for von Willebrand disorder as well. --No additional hematologic interventions indicated at this time given stable hemoglobin and normalized clotting parameters --Continue current supportive care including vasopressor support and antibiotics --Will return to evaluate patient if test results are abnormal or if bleeding status changes Prognosis / Communication --Overall prognosis remains poor given multiorgan dysfunction and ongoing bleeding despite laboratory correction. --Recommend continued close communication with family regarding goals of care. Plan discussed with: Other (Discussed with patient's mother and patient's brother.) Dietary Evaluation Review Recommendations by RD: PPN/TPN Comments: 1) Increase TPN rate to meet at least 75% of estimated daily needs 2) Advance to renal cardiac diet when medically feasible, pending ST approval 3) Follow-up with cardiology, pulmonology, nephrology, neurology, and gastroenterology 4) Continue to monitor I&O, labs, and skin integrity Expected Outcomes/Goals: 1) nutritional support to meet at least 75% of estimated daily needs 2) labs and wound to improve 3) diet to advance 4) gradual wt loss 5) f/u in 2-3 days MARCIN ARCINIEGA MD Feb 10, 2025 17:06
--- NOTE | 2025-02-10 18:43 | DVHPN2 ---
Progress Note Date Seen: Feb 10, 2025 Has the PT tested + for MRSA If YES, has PT been informed?: No Medical Necessity Reason Pt with a Central, PICC or Fol: Yes The following are medically ne: Central Line, Mora Catheter Reason for mora catheter: Nakul. Abd Surgery Subjective Review of Systems Pt condition remains unchanged. Still with Levo at .05 mcg/kg. No further bleeding.Meeting held with Mother, brother, Ivana (YUE), Zaira Gray and myself. Per YUE plan of care being inquired by insurance. Pt's family still with questions on reason for arrest, whether he had PE, whether he had a CT of the brain upon admission, why was a second CT ordered, why no further imaging were recommended or pursued, why could he not have a neurosurgery consultation and why was he denied transfer for Neuro Sx. Questions answered. Seemingly to satisfaction. No further questions at the end of the meeting. Pt's family leaning towards continuing full code and care. They are leaning towards proceeding with tracheostomy and PEG. Aware that he would have to go to an LTAC facility afterwards. They will discuss amongst themselves and determine final decision. Family claims he is moving much more, reportedly responding to verbal and physical stimuli. Based on their statements a follow up CT brain w/to contrast will be requested. Objective vital signs Vital Sign Date Time Temp Pulse Resp B/P (MAP) Pulse Ox O2 Delivery O2 Flow Rate FiO2 02/10/25 17:21 111/58 02/10/25 17:00 89 15 97 02/10/25 16:45 97.7 97.7 02/10/25 16:00 30 02/10/25 16:00 Mechanical Ventilator+ Total Intake and Output 02/09/25 02/09/25 02/10/25 15:00 23:00 07:00 Intake Total 499.504 ml 428.814 ml 490.938 ml Output Total 590 ml 700 ml Balance 499.504 ml -161.186 ml -209.062 ml medications Current Medications Medications Dose Ordered Sig/Serenity Route Start Time Stop Time Status Last Admin Dose Admin Midazolam HCl 50 ml @ 1 mls/hr Q24H IV 01/29/25 14:15 01/29/25 15:56 5 MLS/HR Phenylephrine HCl 250 ml @ 30 mls/hr Q8H20M IV 01/29/25 19:30 01/30/25 01:39 116.25 MLS/HR Levalbuterol HCl 0.625 mg Q4HR PRN NEB 01/29/25 20:00 02/10/25 06:08 0.625 MG Ipratropium [place] 0.5 mg Q4HPRN PRN NEB 01/29/25 20:00 02/10/25 06:08 0.5 MG Epinephrine HCl 250 ml @ 7.5 mls/hr Q24H IV 01/30/25 00:15 Vasopressin 20 units/Sodium Chloride 100 ml @ 9 mls/hr Q11H7M IV 01/30/25 07:30 02/03/25 13:09 9 MLS/HR Amino Acids 0 ml @ 0 mls/hr PER PHARMACY IV 02/01/25 11:15 Diagnostic Test (Pha) 1 strip Q6HR 02/01/25 18:00 02/10/25 17:21 1 STRIP Insulin Human Regular FOLLOW SLIDING SCALE Q6HR SC 02/01/25 18:00 02/02/25 11:36 2 UNITS Dextrose 50 ml UD IV 02/01/25 12:30 Epoetin Gunnar-epbx 4,000 unit MWF@2100 SC 02/03/25 21:00 02/07/25 21:38 4,000 UNIT Piperacillin Sod/ Tazobactam Sod 100 ml @ 25 mls/hr Q8HR IV 02/03/25 14:00 02/10/25 13:30 25 MLS/HR Vancomycin HCl 0 ml @ 0 mls/hr UD IV 02/04/25 09:00 Sodium Chloride 10 ml QSHIFT@10,22 IV 02/04/25 22:00 02/10/25 10:31 10 ML Neomycin/ Polymyxin/ Bacitracin 1 applic DAILY TOP 02/06/25 10:00 02/10/25 10:31 1 APPLIC Bumetanide 2 mg BIDD IV 02/06/25 18:00 02/10/25 17:21 2 MG Norepinephrine Bitartrate 250 ml @ 0.938 mls/ hr Q24H IV 02/07/25 11:30 02/10/25 10:31 0.938 MLS/HR Artificial Tears 1 drop Q4HP PRN EACHEYE 02/08/25 07:30 Pantoprazole Sodium 40 mg Q12HR IV 02/08/25 22:00 02/10/25 10:30 40 MG Fat Emulsion Intravenous 100 ml/Sodium Chloride 20 meq/ Potassium Chloride 10 meq/ Magnesium Sulfate 2 meq/ Multivitamins 10 ml/Amino Acids/ Dextrose 1,220.5 ml @ 51 mls/hr [id number] IV 02/09/25 22:00 02/10/25 21:59 02/09/25 21:49 51 MLS/HR Fat Emulsion Intravenous 100 ml/Sodium Chloride 30 meq/ Multivitamins 10 ml/Amino Acids/ Dextrose 1,217.5 ml @ 51 mls/hr [id number] IV 02/10/25 22:00 02/11/25 21:59 Examination Neuro. Unchanged. Dilated fixed pupils. No reflexes. CV. Hr 90s. Levophed at 0.5 mcg/kg. SBP continues fluctuating. LSCV and right PICC catheter exit sites remain C/D/I. Pulmonary: Intubated with mechanical ventilator support 500/14/30%/+7. Has remained with RR 14/min. Witnessed RR 16 GI: Soft, obese, non distended and non tender. Incision and dressing C/D/I. Drain again thin serosanguineous fluid. OGT in place, no further sanguineous ouput. ETT suction tubing clean. . Mora catheter in place. Clear yellow urine in collection bag Extremities; No edema Resolved facial and neck edema. Mild orbital edema laboratory and microbiology Laboratory Tests 02/10/25 03:27 Test 02/10/25 03:27 Range/Units Serum Glucose 109 H 74-106 mg/dL Microbiology Date/Time Source Procedure Growth Status 02/09/25 03:40 Blood Blood Culture - Preliminary NO GROWTH AFTER 24 HOURS OF INCUBATION. 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 CT revealed cerebral edema and tonsillar herniation.EEG no electric activity. Cerebral perfusion study confirmed no perfusion radiographically consistent with brain which was concordant with initial clinical diagnosis and EEG. However, pt continues demonstrating brain stem function as he is breathing over vent set rate of 14. RR, also witnessed up to 20s by family. There seems to be autonomic dysfunction. Pt's BP fluctuating and RR has been closer to set vent rate, with some occasional witnessed above the vent rates up to 19 to 20/min. Will discuss with neuro. 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 However, given breathing over vent set RR, he is demonstrating some neurological activity which voids previous brain assessment. [facility] [employer] enrollment representative has been informed and process has been placed on hold.Pt family requested second neurology opinion. Dr. Meneses evaluated the patient. He then informed the family Mother, brother present and sister (Angely, on telephone) about his findings being concordant with previous assessments. They are aware that the patient's prognosis is poor with regards to meaningful recovery, that he will likely remain in a comatose state. I was present during the examination and discussion At the completion of the discussion, they were given time for questions. they had none. In the evening mother asked for Dr. Meneses to speak to pt's sister (Angely), as she had some questions. Dr. Meneses called Angely and addressed her questions. Angely and pt's mother are requesting a neurosurgery consultation to address some questions. Unfortunately those services are not available in this institution. An attempt for transfer had been made was previously made by correctional case manager and it was rejected by [facility] secondary to herniation had already occurred. However, correctional case manager will find out if she can have a neurosurgery tele consult arranged with insurance-pending. With permission of pt's mother and sister, I spoke to cousin, Minda (BEATRIZ MCKEON form [facility]). The case was discussed to the best of my abilities as I can't speak for the neuro aspect of his condition, other than the basic information that has already been disclosed to the family before. Pt's family state that he has been responding to verbal and physical stimuli. Will request CT brain w/o contrast. 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 Now requiring minimal vasopressor support. Cardiology assistance appreciated. Mechanical DVT prophylaxis. Unlikely PE (can't rulet it out) but patient oxygenating well, no tachycardia. Pulmonary hypertension possibly unknowingly preexistent. Pulmonary: VDRF. Continue ventilator. Appreciate pulmonary medicine assistance. CXR no effusion. ABG stable. Pulmonary medicine following. Second request for VQ scan denied as pt in on the ventilator and reportedly cannot be done because of that. Pt's mother had previously stated she did not want the patient to remain on PVS (coma) as she didn't want to prolong his suffering. Mother and family still feel they have not exhausted all possibilities, in spite of multiple discussions about his meaningful recovery expectations and prognosis. They are leaning to proceed with tracheostomy and PEG. GI: Continue NPO. Continue TPN. Continue BID GI prophylaxis. Hepatic shock, LFTs improving. Appreciate GI assistance. Possible PEG/gastrostomy- pending final family decision.Mother and family continuing full care, in spite of multiple discussions about his prognosis. They still have strong nicko and beliefs he will recover. . ARF/ATN secondary to hemorrhagic shock. Worsening uremia and hyperkalemia. HD scheduled for today. Strict I&O. Stable u/o. Mora to gravity. Appreciate nephrology assistance. Replace/correct electrolytes. HD, Bumex and IVFs per nephrology. Heme/ID. Hemorrhagic shock resolved. Uremia, which may impact platelet function. Drain with thin serosanguineous fluid. No further sanguineous drainage from OGT or ETT suction tubing. Uremia can cause plts dysfunction.Stable Hgb and thrombocytopenia has resolved. Minimizing blood draw frequency to avoid worsening anemia. Will reserve blood draws for daily and only if clinically indicated at any given moment. Repeat labs AM. Appreciate hematology assistance. Mild leukocytosis. Repeat Bld Cx done, Negative todate. Leukocytosis 13. Staph epi bacteremia, sensitive to Vancomycin renal dose. Continue Zosyn and Vancomycin. Vancomycin adjustment by pharmacy. Endocrine: Tight glycemic control. Skin: Skin care and pressure ulcer precautions. Plan discussed with: Other (Mother, brother, sister, CM, Dr. Man) My Orders My Orders Orders - JITENDRA ZAMORA MD Procedure Category Date Status Time Amino Acid PHA 02/10/25 In Process Infusion... W/Fat 22:00 Comprehensive LAB 02/11/25 Verified Metabolic Panel 05:00 Magnesium LAB 02/11/25 Verified 05:00 Phosphorus LAB 02/11/25 Verified 05:00 Tpn Per Pharmacy YANET 02/10/25 In Process 09:31 Vancomycin,Random LAB 02/11/25 Verified 04:00 Chest Portable XY 02/10/25 Resulted 11:04 Ventilator Orders RT 02/10/25 Transmitted 05:[address] 02/10/25 Logged 18:14 Dietary Evaluation Review Recommendations by RD: PPN/TPN Comments: 1) Increase TPN rate to meet at least 75% of estimated daily needs 2) Advance to renal cardiac diet when medically feasible, pending ST approval 3) Follow-up with cardiology, pulmonology, nephrology, neurology, and gastroenterology 4) Continue to monitor I&O, labs, and skin integrity Expected Outcomes/Goals: 1) nutritional support to meet at least 75% of estimated daily needs 2) labs and wound to improve 3) diet to advance 4) gradual wt loss 5) f/u in 2-3 days JITENDRA ZAMORA MD Feb 10, 2025 18:43
--- NOTE | 2025-02-10 19:33 | DVHPNRES ---
Progress Note Date Seen: Feb 10, 2025 Resident Creating Document: ARNOLD MUHAMMAD RESZENENT Has the PT tested + for MRSA If YES, has PT been informed?: No Medical Necessity Reason Pt with a Central, PICC or Fol: Yes The following are medically ne: Central Line, Mora Catheter Reason for mora catheter: Nakul. Abd Surgery Subjective Review of Systems Patient seen and examined at the bedside. Patient is on mechanical ventilation, off from sedation. Objective vital signs Vital Sign Date Time Temp Pulse Resp B/P (MAP) Pulse Ox O2 Delivery O2 Flow Rate FiO2 02/10/25 18:45 95 15 149/87 (107) 97 139/91 (107) 02/10/25 18:30 98.1 98.1 02/10/25 18:14 30 02/10/25 18:13 Mechanical Ventilator Total Intake and Output 02/09/25 02/09/25 02/10/25 15:00 23:00 07:00 Intake Total 499.504 ml 428.814 ml 490.938 ml Output Total 590 ml 700 ml Balance 499.504 ml -161.186 ml -209.062 ml medications Current Medications Medications Dose Ordered Sig/Serenity Route Start Time Stop Time Status Last Admin Dose Admin Midazolam HCl 50 ml @ 1 mls/hr Q24H IV 01/29/25 14:15 01/29/25 15:56 5 MLS/HR Phenylephrine HCl 250 ml @ 30 mls/hr Q8H20M IV 01/29/25 19:30 01/30/25 01:39 116.25 MLS/HR Levalbuterol HCl 0.625 mg Q4HR PRN NEB 01/29/25 20:00 02/10/25 06:08 0.625 MG Ipratropium [place] 0.5 mg Q4HPRN PRN NEB 01/29/25 20:00 02/10/25 06:08 0.5 MG Epinephrine HCl 250 ml @ 7.5 mls/hr Q24H IV 01/30/25 00:15 Vasopressin 20 units/Sodium Chloride 100 ml @ 9 mls/hr Q11H7M IV 01/30/25 07:30 02/03/25 13:09 9 MLS/HR Amino Acids 0 ml @ 0 mls/hr PER PHARMACY IV 02/01/25 11:15 Diagnostic Test (Pha) 1 strip Q6HR 02/01/25 18:00 02/10/25 17:21 1 STRIP Insulin Human Regular FOLLOW SLIDING SCALE Q6HR SC 02/01/25 18:00 02/02/25 11:36 2 UNITS Dextrose 50 ml UD IV 02/01/25 12:30 Epoetin Gunnar-epbx 4,000 unit MWF@2100 [place] 02/03/25 21:00 02/07/25 21:38 4,000 UNIT Piperacillin Sod/ Tazobactam Sod 100 ml @ 25 mls/hr Q8HR IV 02/03/25 14:00 02/10/25 13:30 25 MLS/HR Vancomycin HCl 0 ml @ 0 mls/hr UD IV 02/04/25 09:00 Sodium Chloride 10 ml QSHIFT@10,22 IV 02/04/25 22:00 02/10/25 10:31 10 ML Neomycin/ Polymyxin/ Bacitracin 1 applic DAILY TOP 02/06/25 10:00 02/10/25 10:31 1 APPLIC Bumetanide 2 mg BIDD IV 02/06/25 18:00 02/10/25 17:21 2 MG Norepinephrine Bitartrate 250 ml @ 0.938 mls/ hr Q24H IV 02/07/25 11:30 02/10/25 10:31 0.938 MLS/HR Artificial Tears 1 drop Q4HP PRN EACHEYE 02/08/25 07:30 Pantoprazole Sodium 40 mg Q12HR IV 02/08/25 22:00 02/10/25 10:30 40 MG Fat Emulsion Intravenous 100 ml/Sodium Chloride 20 meq/ Potassium Chloride 10 meq/ Magnesium Sulfate 2 meq/ Multivitamins 10 ml/Amino Acids/ Dextrose 1,220.5 ml @ 51 mls/hr [id number] IV 02/09/25 22:00 02/10/25 21:59 02/09/25 21:49 51 MLS/HR Fat Emulsion Intravenous 100 ml/Sodium Chloride 30 meq/ Multivitamins 10 ml/Amino Acids/ Dextrose 1,217.5 ml @ 51 mls/hr [id number] IV 02/10/25 22:00 02/11/25 21:59 Examination General: RASS -5, afebrile, mucosae are moist Cardiovascular: Normal S1 and S2. No murmurs, gallops or rubs Respiratory: Mechanically assisted ventilation, equal bilateral airway entree. Clear lung sounds on auscultation Abdomen: Soft, nontender, no organomegaly, with surgical wound on abdomin MSK/skin: Mobilization of limbs cannot be evaluated. Skin is dry and warm. Neurological: Orientation cannot be assessed. Pupils are dilated and nonreactive to light, absent brainstem reflexes laboratory and microbiology Laboratory Tests 02/10/25 03:27 Test 02/10/25 03:27 Range/Units Serum Glucose 109 H 74-106 mg/dL Microbiology Date/Time Source Procedure Growth Status 02/09/25 03:40 Blood Blood Culture - Preliminary NO GROWTH AFTER 24 HOURS OF INCUBATION. Resulted 02/02/25 22:00 Urine - [place] Urine Culture - Final Complete 01/30/25 00:00 Nose MRSA Screen - Final Complete 01/29/25 10:43 Sputum Gram Stain - Final Complete 01/29/25 10:43 Sputum Respiratory Culture - Final Complete Labs and/or images reviewed: Labs reviewed by me, Image(s) reviewed by me Problem List/Assessment/Plan Problem List/Assessment/Plan This is a 24-year-old male with no significant past medical history underwent elective laparoscopic cholecystectomy on 01/28 at [facility] (due to cholelithiasis), on 2nd day postop at home became lethargic and subsequently coded. ROSC was achieved with CPR, abdominal CT scan showed intra-abdominal hematoma, underwent emergent laparotomy and drained about 500-750 thrombosed and dark blood. NEURO: Hypoxic encephalopathy, due to cardiac arrest Possible anoxic brain injury * RASS Score -5 * Head CT from 01/30 shows, Cerebellar tonsilar herniation. There is sulcal and ventricular effacement. The basal cisterns are effaced. Loss of mario-white matter differentiation is noted. * BRNNM-brain imaging, shows absence blood flow, findings suggest brain in the appropriate clinical setting * Family discussion CARDIOVASCULAR: NSTEMI possible type 2 Status post cardiac arrest Distributive shock (vasoplegia)/neurogenic shock/septic shock vasopressin * Cardiology on the board, recommended medical management * Echo from 01/30 shows,Technically limited study secondary to poor acoustic windows, normal LV size and function, 55-60% PULMONARY: Acute hypoxic respiratory failure, likely due to anoxic brain injury Cxr showed bilateral mild pulmonary vascular congestion GASTROINTESTINAL: Acute transaminitis secondary to hypovolemic shock Coagulopathy Hypoalbuminemia Status post laparoscopic cholecystectomy Status post exploratory laparotomy for hemoperitoneum GENITOURINARY: HARLEEN secondary to hypovolemic shock * Nephrology on the board, performed dialysis on 02/03 * IV Bumex drip METABOLIC: Severe anion gap metabolic acidosis due to lactic acidosis Hypernatremia Grade 2 obesity, BMI 35.7 kg per m2 Hypoglycemia HEME: Severe anemia, due to bleeding * Received 3 units of PRBC, 2 units of FFP and 1 unit of cryoprecipitate * Monitor H&H INFECTIOUS DISEASE: Leucocytosis Lactic acidosis * Urine culture, blood culture and respiratory culture shows no growth * On Zosyn and vancomycin DIET: TPN DVT prophylax: Hold GI prophylaxis: Protonix Code status: Full code LINES/DRAINS/ACCESS: ETT: Intubated on 01/29 IV access: Lt IJ placed on 01/29/25 left subclavian Drips: On Levophed Mora catheter: Placed on 01/29 DISPOSITION: ICU status Patient's status discussed with the patient's mother at the bedside. Critical care time spent more than 53 minutes, including patient care, chart review, and updating the family. Excluding any procedures. Case discussed with Dr. Troy Plan discussed with: Patient Dietary Evaluation Review Recommendations by RD: PPN/TPN Comments: 1) Increase TPN rate to meet at least 75% of estimated daily needs 2) Advance to renal cardiac diet when medically feasible, pending ST approval 3) Follow-up with cardiology, pulmonology, nephrology, neurology, and gastroenterology 4) Continue to monitor I&O, labs, and skin integrity Expected Outcomes/Goals: 1) nutritional support to meet at least 75% of estimated daily needs 2) labs and wound to improve 3) diet to advance 4) gradual wt loss 5) f/u in 2-3 days Date of Service: Feb 10, 2025 Billing Provider: JEFFREY TROY MD Common Visit Codes: [id number] CARE 30-74 MIN ARNOLD MUHAMMAD Feb 10, 2025 19:33 JEFFREY TROY MD Feb 11, 2025 12:41
[2025-02-10] MEDS: TPN PER PHARMACY IV NR (21:55)
--- NOTE | 2025-02-10 22:09 | DVHPN2 ---
Progress Note Date Seen: Feb 10, 2025 Has the PT tested + for MRSA If YES, has PT been informed?: No Medical Necessity Reason Pt with a Central, PICC or Fol: Yes The following are medically ne: Central Line, Mora Catheter Reason for mora catheter: Nakul. Abd Surgery Subjective Patient reports: Other (Remains intubated mother is bedside) Review of Systems: Deferred Objective vital signs Vital Sign Date Time Temp Pulse Resp B/P (MAP) Pulse Ox O2 Delivery O2 Flow Rate FiO2 02/10/25 21:54 93 14 109/59 (76) 96 30 02/10/25 20:00 98.6 98.6 02/10/25 20:00 Mechanical Ventilator+ Total Intake and Output 02/09/25 02/09/25 02/10/25 15:00 23:00 07:00 Intake Total 499.504 ml 428.814 ml 490.938 ml Output Total 590 ml 700 ml Balance 499.504 ml -161.186 ml -209.062 ml medications Current Medications Medications Dose Ordered Sig/Serenity Route Start Time Stop Time Status Last Admin Dose Admin Midazolam HCl 50 ml @ 1 mls/hr Q24H IV 01/29/25 14:15 01/29/25 15:56 5 MLS/HR Phenylephrine HCl 250 ml @ 30 mls/hr Q8H20M IV 01/29/25 19:30 01/30/25 01:39 116.25 MLS/HR Levalbuterol HCl 0.625 mg Q4HR PRN NEB 01/29/25 20:00 02/10/25 06:[address] [place] 0.5 mg Q4HPRN PRN NEB 01/29/25 20:00 02/10/25 06:08 0.5 MG Epinephrine HCl 250 ml @ 7.5 mls/hr Q24H IV 01/30/25 00:15 Vasopressin 20 units/Sodium Chloride 100 ml @ 9 mls/hr Q11H7M IV 01/30/25 07:30 02/03/25 13:09 9 MLS/HR Amino Acids 0 ml @ 0 mls/hr PER PHARMACY IV 02/01/25 11:15 Diagnostic Test (Pha) 1 strip Q6HR 02/01/25 18:00 02/10/25 17:21 1 STRIP Insulin Human Regular FOLLOW SLIDING SCALE Q6HR SC 02/01/25 18:00 02/02/25 11:36 2 UNITS Dextrose 50 ml UD IV 02/01/25 12:30 Epoetin Gunnar-epbx 4,000 unit MWF@2100 [place] 02/03/25 21:00 02/10/25 21:36 4,000 UNIT Piperacillin Sod/ Tazobactam Sod 100 ml @ 25 mls/hr Q8HR IV 02/03/25 14:00 02/10/25 21:38 25 MLS/HR Vancomycin HCl 0 ml @ 0 mls/hr UD IV 02/04/25 09:00 Sodium Chloride 10 ml QSHIFT@10,22 IV 02/04/25 22:00 02/10/25 21:38 10 ML Neomycin/ Polymyxin/ Bacitracin 1 applic DAILY TOP 02/06/25 10:00 02/10/25 10:31 1 APPLIC Bumetanide 2 mg BIDD IV 02/06/25 18:00 02/10/25 17:21 2 MG Norepinephrine Bitartrate 250 ml @ 0.938 mls/ hr Q24H IV 02/07/25 11:30 02/10/25 10:31 0.938 MLS/HR Artificial Tears 1 drop Q4HP PRN EACHEYE 02/08/25 07:30 Pantoprazole Sodium 40 mg Q12HR IV 02/08/25 22:00 02/10/25 21:38 40 MG Fat Emulsion Intravenous 100 ml/Sodium Chloride 30 meq/ Multivitamins 10 ml/Amino Acids/ Dextrose 1,217.5 ml @ 51 mls/hr [id number] IV 02/10/25 22:00 02/11/25 21:59 02/10/25 21:55 51 MLS/HR Examination: GENERAL:Abnormal, MSK:Abnormal, NEURO:Normal laboratory and microbiology Laboratory Tests 02/10/25 03:27 Test 02/10/25 03:27 Range/Units Serum Glucose 109 H 74-106 mg/dL Microbiology Date/Time Source Procedure Growth Status 02/09/25 03:40 Blood Blood Culture - Preliminary NO GROWTH AFTER 24 HOURS OF INCUBATION. Resulted 02/02/25 22:00 Urine - [place] Urine Culture - Final Complete 01/30/25 00:00 Nose MRSA Screen - Final Complete 01/29/25 10:43 Sputum Gram Stain - Final Complete 01/29/25 10:43 Sputum Respiratory Culture - Final Complete Problem List/Assessment/Plan Problem List/Assessment/Plan Acute kidney injury likely ischemic ATN in the setting of shock, FeNa > 2%, nonoliguric Acute respiratory failure, intubated on ventilator Status post cardiac arrest Anoxic encephalopathy//brain herniation Hyperkalemia secondary to above Metabolic acidosis anion gap secondary to lactic acidosis secondary to reduced perfusion from hemorrhage Hemodynamic shock from bleeding Acute blood loss anemia/post op Status post laparoscopic cholecystectomy on 01/28/25 [facility] Status post ex lap, 01/29 Positive troponins NSTEMI--likely demand ischemia Shock liver Hypokalemia Recommendations Hemodialysis today and tomorrow We will follow closely Plan discussed with: Other Dietary Evaluation Review Recommendations by RD: PPN/TPN Comments: 1) Increase TPN rate to meet at least 75% of estimated daily needs 2) Advance to renal cardiac diet when medically feasible, pending ST approval 3) Follow-up with cardiology, pulmonology, nephrology, neurology, and gastroenterology 4) Continue to monitor I&O, labs, and skin integrity Expected Outcomes/Goals: 1) nutritional support to meet at least 75% of estimated daily needs 2) labs and wound to improve 3) diet to advance 4) gradual wt loss 5) f/u in 2-3 days SILVIA NOONAN MD Feb 10, 2025 22:09
--- NOTE | 2025-02-10 22:34 | DVHPN2 ---
Subjective DOS: 02/10/2025 [facility] Patient seen and examined at bedside. Intubated on mechanical ventilator. Overnight events reviewed. HPI: A 24-year-old man with past medical history of asthma and gallstone pancreatitis who underwent laparoscopic cholecystectomy on 01/28/2025 in [facility]. Patient was discharged on same day; and as per medical records he developed nausea, vomiting and shortness of breath the night prior to presentation and woke up very weak; noted on AM of presentation with altered level of consciousness. Paramedics were called and patient was found to be in cardiac arrest. CPR was done, ROSC obtained; however patient had fixed and dilated pupils per ER documentation on arrival. CT abdomen/pelvis without contrast in ED revealed a hepatic hematoma measuring 8.6 cm with hemorrhage extending beyond the liver capsule into the right paracolic gutter as well as the pelvis. The patient was emergently taken back to surgery and underwent evacuation of a large hemoperitoneum,. was subsequently admitted to ICU. Pulmonary consultation is requested for evaluation and management of acute hypoxic respiratory failure requiring mechanical ventilator. Past Medical History: Asthma and gallstone pancreatitis Past Surgical History: Laparoscopic cholecystectomy on 01/28/2025 at [facility] Medications: Reviewed. Allergies: No known drug allergies. Family History: No family history of premature CAD. No family history of lung disorders. Social History: Nonsmoker. No alcohol or illicit drug use. Changes from previous H/P or p: No Changes Objective Vitals Vital Signs Date Time Temp Pulse Resp B/P (MAP) Pulse Ox O2 Delivery O2 Flow Rate FiO2 02/10/25 21:54 93 14 109/59 (76) 96 30 02/10/25 20:00 98.6 98.6 02/10/25 20:00 Mechanical Ventilator+ Intake/Output Intake and Output 02/10/25 07:00 Intake Total 1419.256 ml Output Total 1290 ml Balance 129.256 ml IV Total 1419.256 ml Output Urine Total 1260 ml Gastric Drainage Total 10 ml Drainage Total 20 ml Exam Gen.: Patient lying in bed in medical ICU. Intubated on mechanical ventilator. Head: Normocephalic, atraumatic. Eyes: Pupils fixed and blown Ears: Normal external anatomy. Throat: Endotracheal tube and orogastric tube in place. Neck: Supple, trachea midline. Chest: Transmitted breath sounds bilaterally. Decreased air entry bilaterally. No wheezing. Bibasilar crackles. Cardiovascular: Positive S1, positive S2. Regular rate and rhythm. Abdomen: Positive bowel sounds in all 4 quadrants. Soft, nontender, nondistended. : Green in place. Normal external genitalia. Rectal: Deferred. Skin: Warm, dry. Intact. Extremities: 2+ radial pulses bilaterally. No lower extremity edema. Neuro: No responses to painful stimuli. Medications Current Medications Medications Dose Ordered Sig/Serenity Route Start Time Stop Time Status Last Admin Dose Admin Midazolam HCl 50 ml @ 1 mls/hr Q24H IV 01/29/25 14:15 01/29/25 15:56 5 MLS/HR Phenylephrine HCl 250 ml @ 30 mls/hr Q8H20M IV 01/29/25 19:30 01/30/25 01:39 116.25 MLS/HR Levalbuterol HCl 0.625 mg Q4HR PRN NEB 01/29/25 20:00 02/10/25 06:08 0.625 MG Ipratropium [place] 0.5 mg Q4HPRN PRN NEB 01/29/25 20:00 02/10/25 06:08 0.5 MG Epinephrine HCl 250 ml @ 7.5 mls/hr Q24H IV 01/30/25 00:15 Vasopressin 20 units/Sodium Chloride 100 ml @ 9 mls/hr Q11H7M IV 01/30/25 07:30 02/03/25 13:09 9 MLS/HR Amino Acids 0 ml @ 0 mls/hr PER PHARMACY IV 02/01/25 11:15 Diagnostic Test (Pha) 1 strip Q6HR 02/01/25 18:00 02/10/25 17:21 1 STRIP Insulin Human Regular FOLLOW SLIDING SCALE Q6HR [place] 02/01/25 18:00 02/02/25 11:36 2 UNITS Dextrose 50 ml UD IV 02/01/25 12:30 Epoetin Gunnar-epbx 4,000 unit MWF@2100 [place] 02/03/25 21:00 02/10/25 21:36 4,000 UNIT Piperacillin Sod/ Tazobactam Sod 100 ml @ 25 mls/hr Q8HR IV 02/03/25 14:00 02/10/25 21:38 25 MLS/HR Vancomycin HCl 0 ml @ 0 mls/hr UD IV 02/04/25 09:00 Sodium Chloride 10 ml QSHIFT@10,22 IV 02/04/25 22:00 02/10/25 21:38 10 ML Neomycin/ Polymyxin/ Bacitracin 1 applic DAILY TOP 02/06/25 10:00 02/10/25 10:31 1 APPLIC Bumetanide 2 mg BIDD IV 02/06/25 18:00 02/10/25 17:21 2 MG Norepinephrine Bitartrate 250 ml @ 0.938 mls/ hr Q24H IV 02/07/25 11:30 02/10/25 10:31 0.938 MLS/HR Artificial Tears 1 drop Q4HP PRN EACHEYE 02/08/25 07:30 Pantoprazole Sodium 40 mg Q12HR IV 02/08/25 22:00 02/10/25 21:38 40 MG Fat Emulsion Intravenous 100 ml/Sodium Chloride 30 meq/ Multivitamins 10 ml/Amino Acids/ Dextrose 1,217.5 ml @ 51 mls/hr [id number] IV 02/10/25 22:00 02/11/25 21:59 02/10/25 21:55 51 MLS/HR Laboratory Results Laboratory Tests 02/10/25 03:27 Chemistry Test 02/10/25 03:27 Albumin 3.2 g/dL (3.2-4.8) Calcium Level 9.3 mg/dL (8.7-10.4) Magnesium Level 2.5 mg/dL (1.6-2.6) Phosphorus Level 7.8 mg/dL (2.4-5.1) H Total Protein 6.5 g/dL (5.7-8.2) Lipid panel Test 02/10/25 03:27 Triglycerides Level 183 mg/dL (< 150) H LFT Test 02/10/25 03:27 Alanine Aminotransferase (ALT) 66 U/L (7-40) H Alkaline Phosphatase 440 U/L (46-116) H Aspartate Amino Transferase (AST) 202 U/L (13-40) H Total Bilirubin 1.5 mg/dL (0.2-1.0) H Urinalysis Test 01/29/25 09:54 01/29/25 14:15 Urine Color Light-orange (Yellow) Urine Clarity Turbid (Clear) H Urine pH 5.5 (5.0-9.0) Urine Specific Desha 1.017 (1.001-1.035) Urine Protein 2+ (Negative) H Urine Ketones Trace (Negative) Urine Blood 3+ /uL (Negative) H Urine Nitrite Negative (Negative) Urine Bilirubin Negative (Negative) Urine Urobilinogen Normal mg/dL (Negative) Urine Leukocyte Esterase Negative /uL (Negative) Urine RBC 130 /hpf (0 - 3) Urine Microscopic WBC < 1 /HPF (0-3) Urine Squamous Epithelial Cells Mod /hpf (<5) Urine Amorphous Crystals Few /hpf (None Seen) Urine Bacteria Few /hpf (None Seen) H Urine Glucose Trace mg/dL (Normal) Urine Creatinine 19.64 mg/dL (30.0-125.0) L Urine Sodium 98 mmol/L (40-220) Urine Total Protein 245.5 mg/dL (1-14) H Blood Gas Results Test 02/10/25 07:12 Arterial Blood pH 7.275 (7.350-7.450) FiO2 % 30.0 Microbiology Microbiology Date/Time Source Procedure Growth Status 02/09/25 03:40 Blood Blood Culture - Preliminary NO GROWTH AFTER 24 HOURS OF INCUBATION. Resulted 02/02/25 22:00 Urine - [place] Urine Culture - Final Complete 01/30/25 00:00 Nose MRSA Screen - Final Complete 01/29/25 10:43 Sputum Gram Stain - Final Complete 01/29/25 10:43 Sputum Respiratory Culture - Final Complete Assessment/Plan Assessment/Plan Impression: Acute hypoxic respiratory failure On mechanical ventilator Status post cardiac arrest Possible anoxic brain injury NSTEMI, possible type 2 Hypovolemic shock Acute kidney injury secondary to hypovolemic shock Obesity, BMI 30.4 Multiorgan failure Events: Remains on vent support AC mode with RR 14, VT 450, PEEP 7, FiO2 30% Follow up head CT results. Continue antibiotics - Zosyn. Monitor cultures Continue bronchodilators Continue Protonix for GI ppx TPN for nutritional support Continue Bumex drip for diuresis Follow up Nephrology recs Monitor renal function Monitor electrolytes. Supplement as necessary. Monitor ins and outs. Monitor hemoglobin Transfuse if less than 7.0 g/dL Absent brainstem reflexes Signs of anoxic brain injury Second opinion Neurology consult recs appreciated. No cough or gag. Respiratory drive persists. Patient noted to be overbreathing the vent Patient with pupils fixed and blown NM brain perfusion study c/w anoxic brain injury Poor chance of meaningful recovery Neurology recommendations appreciated Family meeting today to discuss goals of care. Plan for trach/PEG. Overall poor prognosis with multiorgan dysfunction, poor chance of meaningful recovery Labs and imaging reviewed. Rest of plan as noted below. Plan: s/p intubation on mechanical ventilator On assist control with respiratory rate of 14, tidal volume 450, PEEP of 7, FiO2 of 30% Titrate FIO2 to keep O2 saturation above 92%. VAP bundle Daily ABG and CXR while intubated. Pressors as necessary for hemodynamic support. Titrate to keep MAP above 65 mmHg/SBP above 90 mmHg. Continue antibiotics. F/u cultures. Blood cultures no growth thus far Sputum culture grew normal oropharyngeal slava. Monitor hemoglobin Monitor renal function due to acute kidney injury. Monitor electrolytes. Supplement as necessary. Continue diuresis per Nephrology Monitor ins and outs Hemodialysis per nephrology Nutritional support. Accu-Cheks, ISS. GI/DVT prophylaxis. Overall poor prognosis w/ poor chance of meaningful recovery Condition: Critical Prognosis: Poor given multiple comorbidities. Rest of plan per hospitalist and other consultants. A total of 35 minutes of critical care time was spent reviewing the patient record, examining the patient, making a diagnostic and therapeutic plan, discussing this plan with the medical personnel, following up on diagnostic studies and following the patient for clinical stability excluding any and all procedures. At least 50% of this time was spent in direct, [id number] contact. Thank you for allowing me to participate in this patient's care. Further recommendations will depend on patient's clinical course. Please do not hesitate to contact me if you have any questions or concerns. This medical document was created using an electronic medical record system with [employer] dictation system. Although this document has been carefully reviewed, there may still be some phonetic and typographical errors. These areas are purely typographical due to imperfections of the software programs, and do not reflect any compromise in the patient's medical care. Plan discussed with: Other (MARY ANN Singh) Date of Service: Feb 10, 2025 Billing Provider: NEHEMIAS BEASLEY MD Common Visit Codes: [id number] INP/OBS CARE(HIGH), [id number] CARE 30-74 MIN NEHEMIAS BEASLEY MD Feb 10, 2025 22:34
[2025-02-11] VITALS (119 sets, daily range): BP systolic 61–222; BP diastolic 39–193; PULSE 82–119; RESP 13–27; TEMP 96.6–98.8; O2SAT 79–100
--- NOTE | 2025-02-11 00:49 | DVH ---
CT HEAD WITHOUT CONTRAST INDICATION: Anoxic brain injury, Family states pt is voluntarily moving EXAM DATE: 02/10/2025 11:00 PM COMPARISON: NM BRAIN IMAGING FLOW on DOS: 02/03/25, CT NECK WITHOUT CONTRAST on DOS: 01/30/25, CT HEAD WITHOUT CONTRAST on DOS: 01/30/25, CT HEAD WITHOUT CONTRAST on DOS: 01/29/25 RADIATION DOSE: CTDIvol: 62.73 mGy, DLP: 62.73 mGy*cm PROCEDURE: CT scans of the head were obtained from the vertex to the skull base. Sagittal and coronal reconstructions were provided. All CT scans at this medical facility are performed using dose modulation techniques as appropriate t o a performed exam including the following: Automated exposure control was utilized; adjustment of th e MA and/or KV according to patient size; and use of iterative reconstruction technique. FINDINGS: There is diffuse low attenuation throughout the brain with increased effacement of the ventricles and complete sulcal effacement. There is cerebellar tonsillar herniation. The orbits are normal. There is moderate mucosal thickening within the paranasal sinuses and mastoid air cells. The soft tissues and osseous structures appear within normal limits. IMPRESSION: 1. Findings as above suggesting worsening diffuse cerebral edema in the setting of anoxic brain injur y in the given clinical setting. Further clinical correlation is suggested.
[2025-02-11 03:59] LABS: Hematocrit 27.0 % (41.0-53.0); Hemoglobin 9.1 g/dL (13.5-17.5); Mean Corpuscular Hemoglobin 29.8 pg (28.0-32.0); Mean Corpuscular Volume 88.4 fL (80.0-100.0); Nucleated Red Blood Cells % 0.1 %
[2025-02-11 04:14] LABS: INR 1.04 (0.9-1.15); Prothrombin Time 11.0 sec (9.3-11.8)
[2025-02-11 04:17] LABS: BUN/Creatinine Ratio 10.8 (10.0-20.0); Calcium 8.9 mg/dL (8.7-10.4); Carbon Dioxide 28 mmol/L (20-31); Glucose 98 mg/dL (74-106); Magnesium 2.4 mg/dL (1.6-2.6); Total Protein 6.4 g/dL (5.7-8.2)
[2025-02-11 04:18] LABS: Alanine Aminotransferase 53 U/L (7-40); Albumin 3.0 g/dL (3.2-4.8); Alkaline Phosphatase 502 U/L (46-116); Bilirubin, Total 1.9 mg/dL (0.2-1.0); Blood Urea Nitrogen 74 mg/dL (9-23)
[2025-02-11 04:26] LABS: Anion Gap 14 (5-15); Sodium 138 mmol/L (136-145)
[2025-02-11 04:28] LABS: Chloride 96 mmol/L (98-107); Potassium 5.2 mmol/L (3.5-5.1)
--- NOTE | 2025-02-11 04:59 | DVH ---
CHEST RADIOGRAPH Indication: VDRF Technique: Single frontal view of the chest was obtained COMPARISON: XY CHEST PORTABLE on DOS: 02/10/25, XY CHEST PORTABLE on DOS: 02/10/25, XY CHEST PORTABLE o n DOS: 02/09/25, XY CHEST PORTABLE on DOS: 02/08/25, XY CHEST XRAY 1 VIEW on DOS: 02/06/25 FINDINGS: Lines and Tubes: Endotracheal tube tip projects approximately 5.1 cm above the level of the meghan. Enteric catheter terminates within the gastric lumen. Right peripherally inserted central catheter ti p and left subclavian central venous catheter tip project over the distal superior vena cava. Lungs: Clear Pleura: No effusion. No pneumothorax. Cardiomediastinal contours: Unremarkable Bones: Unremarkable IMPRESSION: 1. No radiographic evidence of acute cardiopulmonary abnormality. 2. Lines and tubes as above.
[2025-02-11 05:01] LABS: Fibrinogen > 860 mg/dL (177-375)
--- NOTE | 2025-02-11 06:17 | DVHPN2 ---
Progress Note Date Seen: Feb 11, 2025 Has the PT tested + for MRSA If YES, has PT been informed?: No Medical Necessity Reason Pt with a Central, PICC or Fol: Yes The following are medically ne: Central Line, Mora Catheter Reason for mora catheter: Nakul. Abd Surgery Subjective Review of Systems Pt seen earlier this morning. Per RN, hemodynamically stable. Vasopressor held. No further drain output and had a BM Objective vital signs Vital Sign Date Time Temp Pulse Resp B/P (MAP) Pulse Ox O2 Delivery O2 Flow Rate FiO2 02/11/25 04:45 84 14 121/65 (83) 98 118/68 (85) 02/11/25 04:03 30 02/11/25 04:00 Mechanical Ventilator+ 02/11/25 04:00 96.6 96.6 Total Intake and Output 02/10/25 02/10/25 02/11/25 15:00 23:00 07:00 Intake Total 565.504 ml 515.814 ml 280 ml Output Total 525 ml Balance 565.504 ml -9.186 ml 280 ml medications Current Medications Medications Dose Ordered Sig/Serenity Route Start Time Stop Time Status Last Admin Dose Admin Midazolam HCl 50 ml @ 1 mls/hr Q24H IV 01/29/25 14:15 01/29/25 15:56 5 MLS/HR Phenylephrine HCl 250 ml @ 30 mls/hr Q8H20M IV 01/29/25 19:30 01/30/25 01:39 116.25 MLS/HR Levalbuterol HCl 0.625 mg Q4HR PRN NEB 01/29/25 20:00 02/10/25 06:08 0.625 MG Ipratropium Aurora 0.5 mg Q4HPRN PRN NEB 01/29/25 20:00 02/10/25 06:08 0.5 MG Epinephrine HCl 250 ml @ 7.5 mls/hr Q24H IV 01/30/25 00:15 Vasopressin 20 units/Sodium Chloride 100 ml @ 9 mls/hr Q11H7M IV 01/30/25 07:30 02/03/25 13:09 9 MLS/HR Amino Acids 0 ml @ 0 mls/hr PER PHARMACY IV 02/01/25 11:15 Diagnostic Test (Pha) 1 strip Q6HR 02/01/25 18:00 02/11/25 00:00 1 STRIP Insulin Human Regular FOLLOW SLIDING SCALE Q6HR WI 02/01/25 18:00 02/02/25 11:36 2 UNITS Dextrose 50 ml UD IV 02/01/25 12:30 Epoetin Gunnar-epbx 4,000 unit MWF@2100 WI 02/03/25 21:00 02/10/25 21:36 4,000 UNIT Piperacillin Sod/ Tazobactam Sod 100 ml @ 25 mls/hr Q8HR IV 02/03/25 14:00 02/10/25 21:38 25 MLS/HR Vancomycin HCl 0 ml @ 0 mls/hr UD IV 02/04/25 09:00 Sodium Chloride 10 ml QSHIFT@10,22 IV 02/04/25 22:00 02/10/25 21:38 10 ML Neomycin/ Polymyxin/ Bacitracin 1 applic DAILY TOP 02/06/25 10:00 02/10/25 10:31 1 APPLIC Bumetanide 2 mg BIDD IV 02/06/25 18:00 02/10/25 17:21 2 MG Norepinephrine Bitartrate 250 ml @ 0.938 mls/ hr Q24H IV 02/07/25 11:30 02/10/25 10:31 0.938 MLS/HR Artificial Tears 1 drop Q4HP PRN EACHEYE 02/08/25 07:30 Pantoprazole Sodium 40 mg Q12HR IV 02/08/25 22:00 02/10/25 21:38 40 MG Fat Emulsion Intravenous 100 ml/Sodium Chloride 30 meq/ Multivitamins 10 ml/Amino Acids/ Dextrose 1,217.5 ml @ 51 mls/hr [id number] IV 02/10/25 22:00 02/11/25 21:59 02/10/25 21:55 51 MLS/HR Examination Neuro. Unchanged. Dilated fixed pupils. No reflexes. CV. Hr 80s. Hemodynamically stable. LSCV and right PICC catheter exit sites remain C/D/I. Pulmonary: Intubated with mechanical ventilator support 500/14/30%/+7. Currently RR 14/min. Last night witnessed RR 16-17 GI: Soft, obese, non distended and non tender. Incision and dressing C/D/I. Drain with scant thin serosanguineous fluid. OGT in place, no further sanguineous ouput. ETT suction tubing clean. . Mora catheter in place. Clear yellow urine in collection bag Extremities; No edema Resolved facial and neck edema. Mild orbital edema laboratory and microbiology Laboratory Tests 02/11/25 03:09 Test 02/11/25 03:09 Range/Units Serum Glucose 98 74-106 mg/dL Microbiology Date/Time Source Procedure Growth Status 02/09/25 03:40 Blood Blood Culture - Preliminary NO GROWTH AFTER 48 HOURS OF INCUBATION. 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 CT revealed cerebral edema and tonsillar herniation.EEG no electric activity. Cerebral perfusion study confirmed no perfusion radiographically consistent with brain which was concordant with initial clinical diagnosis and EEG. However, pt continues demonstrating brain stem function as he is breathing over vent set rate of 14. RR, also witnessed up to 20s by family. There seems to be autonomic dysfunction. Pt's BP fluctuating and RR has been closer to set vent rate, with some occasional witnessed above the vent rates up to 19 to 20/min. Will discuss with neuro. 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 However, given breathing over vent set RR, he is demonstrating some neurological activity which voids previous brain assessment. [employer] representative has been informed and process has been placed on hold.Pt family requested second neurology opinion. Dr. Meneses evaluated the patient. He then informed the family Mother, brother present and sister (Angely, on telephone) about his findings being concordant with previous assessments. They are aware that the patient's prognosis is poor with regards to meaningful recovery, that he will likely remain in a comatose state. I was present during the examination and discussion At the completion of the discussion, they were given time for questions. they had none. In the evening mother asked for Dr. Meneses to speak to pt's sister (Angely), as she had some questions. Dr. Meneses called Angely and addressed her questions. Angely and pt's mother are requesting a neurosurgery consultation to address some questions. Unfortunately those services are not available in this institution. An attempt for transfer had been made was previously made by case technician and it was rejected by [facility] secondary to herniation had already occurred. However, case technician will find out if she can have a neurosurgery tele consult arranged with insurance-pending. With permission of pt's mother and sister, I spoke to cousin, Minda (BEATRIZ MCKEON form [place]). The case was discussed to the best of my abilities as I can't speak for the neuro aspect of his condition, other than the basic information that has already been disclosed to the family before. Pt's family state that he has been responding to verbal and physical stimuli. CT brain worsening cerebral edema and tonsillar herniation. 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 Now requiring minimal vasopressor support. Cardiology assistance appreciated. Mechanical DVT prophylaxis. Unlikely PE (can't rule it out) but patient oxygenating well, no tachycardia. Pulmonary hypertension possibly unknowingly preexistent. Pulmonary: VDRF. Continue ventilator. Appreciate pulmonary medicine assistance. CXR no effusion. ABG stable. Pulmonary medicine following. Second request for VQ scan denied as pt in on the ventilator and reportedly cannot be done because of that. Family aware. Pt's mother had previously stated she did not want the patient to remain on PVS (coma) as she didn't want to prolong his suffering. Mother and family still feel they have not exhausted all possibilities, in spite of multiple discussions about his meaningful recovery expectations and prognosis. They are leaning to proceed with tracheostomy and PEG. GI: Trickle feeding via OGT (20mL/hr). Measure residual volume every 6 hrs. Hold for RV of 150 mL. Continue TPN until ensuring tolerance. Continue BID GI prophylaxis. Hepatic shock, transaminases improving. ALP and Tb slight elevation. Appreciate GI assistance. Possible PEG/gastrostomy- pending final family decision. Mother and family continuing full care, in spite of multiple discussions about his prognosis. They still have strong nicko and beliefs he will recover. . ARF/ATN secondary to hemorrhagic shock. Uremia and hyperkalemia. Strict I&O. Stable u/o. Mora to gravity. Appreciate nephrology assistance. Replace/correct electrolytes. HD, Bumex and IVFs per nephrology. Heme/ID. Hemorrhagic shock resolved. Uremia, which may impact platelet function. Drain with scant thin serosanguineous fluid. No further sanguineous drainage from IV access, OGT or ETT suction tubing. Uremia can cause plt dysfunction. Hgb 9.1. Thrombocytopenia has resolved. Minimizing blood draw frequency to avoid worsening anemia. Will reserve blood draws for daily and only if clinically indicated at any given moment. Repeat labs AM. Appreciate hematology assistance. Repeat Bld Cx done, Negative todate. Leukocytosis resolved. Staph epi bacteremia, sensitive to Vancomycin renal dose. Continue Zosyn and Vancomycin. Vancomycin adjustment by pharmacy. Will request HD catheter change. Pt may need tunneled catheter if pt's family decides to proceed with full code/care. Endocrine: Tight glycemic control. Skin: Skin care and pressure ulcer precautions. Plan discussed with: Other (RN) My Orders My Orders Orders - JITENDRA ZAMORA MD Procedure Category Date Status Time Amino Acid PHA 02/10/25 In Process Infusion... W/Fat 22:00 Tpn Per Pharmacy YANET 02/10/25 In Process 09:31 Chest Portable XY 02/10/25 Resulted 11:04 Ventilator Orders RT 02/10/25 Transmitted 05:[address] 02/10/25 Resulted 18:14 Dietary Evaluation Review Recommendations by RD: PPN/TPN Comments: 1) Increase TPN rate to meet at least 75% of estimated daily needs 2) Advance to renal cardiac diet when medically feasible, pending ST approval 3) Follow-up with cardiology, pulmonology, nephrology, neurology, and gastroenterology 4) Continue to monitor I&O, labs, and skin integrity Expected Outcomes/Goals: 1) nutritional support to meet at least 75% of estimated daily needs 2) labs and wound to improve 3) diet to advance 4) gradual wt loss 5) f/u in 2-3 days JITENDRA ZAMORA MD Feb 11, 2025 06:17
--- NOTE | 2025-02-11 08:29 | DVHPN2 ---
Progress Note - Dictate Date Seen: Feb 11, 2025 Has the PT tested + for MRSA If YES, has PT been informed?: No Medical Necessity Reason Pt with a Central, PICC or Fol: Yes The following are medically ne: Central Line, Mora Catheter Reason for mora catheter: Nakul. Abd Surgery vital signs Vital Sign Date Time Temp Pulse Resp B/P (MAP) Pulse Ox O2 Delivery O2 Flow Rate FiO2 02/11/25 07:57 89 16 113/60 (77) 100 30 02/11/25 07:00 98.4 98.4 02/11/25 06:00 Mechanical Ventilator+ Total Intake and Output 02/10/25 02/10/25 02/11/25 15:00 23:00 07:00 Intake Total 565.504 ml 515.814 ml 382 ml Output Total 525 ml 600 ml Balance 565.504 ml -9.186 ml -218 ml medications Current Medications Medications Dose Ordered Sig/Serenity Route Start Time Stop Time Status Last Admin Dose Admin Midazolam HCl 50 ml @ 1 mls/hr Q24H IV 01/29/25 14:15 01/29/25 15:56 5 MLS/HR Phenylephrine HCl 250 ml @ 30 mls/hr Q8H20M IV 01/29/25 19:30 01/30/25 01:39 116.25 MLS/HR Levalbuterol HCl 0.625 mg Q4HR PRN NEB 01/29/25 20:00 02/10/25 06:08 0.625 MG Ipratropium [place] 0.5 mg Q4HPRN PRN NEB 01/29/25 20:00 02/10/25 06:08 0.5 MG Epinephrine HCl 250 ml @ 7.5 mls/hr Q24H IV 01/30/25 00:15 Vasopressin 20 units/Sodium Chloride 100 ml @ 9 mls/hr Q11H7M IV 01/30/25 07:30 02/03/25 13:09 9 MLS/HR Amino Acids 0 ml @ 0 mls/hr PER PHARMACY IV 02/01/25 11:15 Diagnostic Test (Pha) 1 strip Q6HR 02/01/25 18:00 02/11/25 06:25 1 STRIP Insulin Human Regular FOLLOW SLIDING SCALE Q6HR SC 02/01/25 18:00 02/02/25 11:36 2 UNITS Dextrose 50 ml UD IV 02/01/25 12:30 Epoetin Gunnar-epbx 4,000 unit MWF@2100 SC 02/03/25 21:00 02/10/25 21:36 4,000 UNIT Piperacillin Sod/ Tazobactam Sod 100 ml @ 25 mls/hr Q8HR IV 02/03/25 14:00 02/11/25 06:22 25 MLS/HR Vancomycin HCl 0 ml @ 0 mls/hr UD IV 02/04/25 09:00 Sodium Chloride 10 ml QSHIFT@10,22 IV 02/04/25 22:00 02/10/25 21:38 10 ML Neomycin/ Polymyxin/ Bacitracin 1 applic DAILY TOP 02/06/25 10:00 02/10/25 10:31 1 APPLIC Bumetanide 2 mg BIDD IV 02/06/25 18:00 02/11/25 06:23 2 MG Norepinephrine Bitartrate 250 ml @ 0.938 mls/ hr Q24H IV 02/07/25 11:30 02/10/25 10:31 0.938 MLS/HR Artificial Tears 1 drop Q4HP PRN EACHEYE 02/08/25 07:30 Pantoprazole Sodium 40 mg Q12HR IV 02/08/25 22:00 02/10/25 21:38 40 MG Fat Emulsion Intravenous 100 ml/Sodium Chloride 30 meq/ Multivitamins 10 ml/Amino Acids/ Dextrose 1,217.5 ml @ 51 mls/hr [id number] IV 02/10/25 22:00 02/11/25 21:59 02/10/25 21:55 51 MLS/HR laboratory and microbiology Laboratory Tests 02/11/25 03:09 Test 02/11/25 03:09 Range/Units Serum Glucose 98 74-106 mg/dL Assessment/Plan Still in ICU. On vent support. Blood pressure stable. Off any pressure support. No gross higher brain reflexes. Pupils are dilated and fixed. Seen by Neurology: Hypoxic Encephalopathy No reported arrhythmia overnight Echocardiogram revealed no WMA and also revealed good EF. It also revealed increased Pulmonary Artery Pressure in favor of component of Pulmonary Hypertension. s/p Hemodialysis Received blood and platelet transfusion Patient is a 24-year-old gentleman who was originally brought to the hospital for post arrest. Patient is seen in postop area. Patient is intubated and on multiple pressor supports. Patient is not source of history. Information was obtained by reviewing the chart, talking to patient's family/mother and communicating with staff and reviewing outside records ([facility]). Patient did have elective outpatient laparoscopic cholecystectomy in [facility] on January 28 2025. As per mother, after going home, patient was feeling very hungry and was eating and drinking a lot. He started feeling abdominal pain with nausea at night and in the morning was short of breath. As per mother: patient has stopped breathing in the morning and family called 911. As per mother, as per guidance of 911, family started CPR until EMS arrived. Patient was intubated and was brought to the hospital by EMS. Since arrival to [facility], patient was seen by surgeon who took the patient to operating room and performed laparotomy (there was hepatic hematoma). Postoperatively, the patient has remained hypotensive. There is signs for multiorgan involvement. Patient was not alert and did not complain of any chest pains. Labs revealed increased troponin. Cardiology is involved for cardiac aspects of care and abnormal troponin. First available EKG reveals sinus tachycardia with no specific ST-T changes. Telemetry had revealed sinus tachycardia throughout the stay. Patient is found to have significant anemia and is receiving blood transfusion at the time of evaluation. It is of note that at the time of evaluation patient does not have any reflexes. Intubated. Mucosa pale. Dilated and fixed pupils, Scattered rhonchi in the lungs. Cardiac: Tachycardic. No murmur. Abdomen is covered by dressing. Extremities do not reveal any edema. Dorsalis pedis is 1+ bilateral. Patient does not respond to any stimuli. Reported past medical history includes asthma and obesity. Reportedly, on January 23, 2025: Patient presented to [facility] for abdominal pain/nausea/vomiting. At that point the problems were ongoing for few weeks. In [facility], CT of the abdomen and MRCP were performed. Patient was seen by GI/surgery. Patient was found to have gallstones. Patient was discharged and later on January 28, 2025 presented back to [facility] for elective laparoscopy cholecystectomy. Patient was discharged home from [facility] after laparoscopic cholecystectomy. As per mother, patient does not have baseline history of any cardiac history. As per mother, patient was using marijuana. Mother denies any previous substance abuse besides marijuana. No specific family history is reported On January 23, 2025, labs in [facility] revealed creatinine of 0.84, hemoglobin of 15.2 and troponin (high sensitive) of <3. At that point EKG was normal WBC: 20.1 - 19.0 - 22.7 - 20.6 - 28.4 - 20.3 - 21.0 - 25.2 - 29.8 - 29.5 - 29.0 - 26.2 - 21.7 - 19.7 - 17.7 - 15.3 - 12.2 - 10.5 - 11.2 - 13.0 - 10.7 Hemoglobin: 8.3 - 6.5 - 12.1 - 11.1 - 12.1 - 9.3 - 9.2 - 9.1 - 8.4 - 9.0 - 9.5 - 8.8 - 8.4 - 8.0 - 9.7 - 9.6 - 9.8 - 9.6 - 9.7 - 9.8 - 9.1 Fibrinogen: 108 - 316 - 537 - 689 - >860 Creatinine: 4.02 - 3.78 - 3.90 - 3.95 - 4.34 - 5.44 - 6.05 - 6.73 - 7.31 - 7.77 - 6.64 - 7.30 - 4.91 - 5.32 - 7.40 - 5.98 - 7.66 - 6.28 - 7.71 - 8.67 - 6.87 Potassium: 5.6 - 4.6 - 4.8 - 3.9 - 2.9 - 2.9 - 3.6 - 3.8 - 4.9 - 5.4 - 6.0 - 5.1 - 5.3 - 6.1 - 6.0 - 4.6 - 4.4 - 4.3 - 3.5 - 3.4 - 3.7 - 4.5 - 5.7 - 5.2 AST/ALT: 676/806 - 5317/2055 - 5868/7281 - -/1995 - 2500/1990 - 1780/1821 - 808/995 - 586/735 - 456/444 - 312/290 - 237/163 - 215/125 - 190/87 - 200/74 - 202/66 - 189/53 Lactic acid: 17.9 - 17.2 - 11.4 Troponin (high sensitive): 5873 - 2498 - 5664 - 3967 - 4393 TSH: 11.05 Urine Toxicology: positive for Fentanyl and Benzodiazepine Chest x-ray revealed: Lines and Tubes: Endotracheal tube projects 2.2 cm above the meghan. Right internal jugular central venous catheter tip projects over superior vena cava. Lungs: No focal consolidation. Low lung volumes. Pleura: No effusion. No pneumothorax. Cardiomediastinal contours: Unremarkable Bones: No acute osseous abnormality. IMPRESSION: Lines and tubes as above. Low lung volumes. Repeat chest x-ray revealed: IMPRESSION: Lines and tubes in satisfactory position. Mild increased pulmonary vascular congestion Repeat chest xry revealed: IMPRESSION: Lines and tubes in satisfactory position. Mild increased pulmonary vascular congestion Repeat chest xry revealed: IMPRESSION: 1. Low lung volumes with concomitant crowding of the pulmonary vasculature. 2. No evidence of focal consolidation. 3. Lines and tubes unchanged. Repeat chest xry revealed: IMPRESSION: 1. Slight interval retraction of the endotracheal tube such that the tip now projects approximately 4.7 cm above the level of the meghan. Remaining lines and tubes unchanged. 2. Otherwise no significant change compared to prior exam. Repeat chest xry revealed: IMPRESSION: 1. Slight interval advancement of endotracheal tube such that the tip now projects approximately 1.7 cm above the level of the meghan. Remaining lines and tubes unchanged. 2. Otherwise no significant change compared to prior exam. Repeat chest xry revealed: IMPRESSION: 1. Slight interval retraction of the endotracheal tube such that the tip now projects approximately 3.3 cm above the level of the meghan. Remaining lines and tubes unchanged. 2. No evidence of acute cardiopulmonary process. Repeat chest xry revealed: IMPRESSION: 1. Endotracheal tube in appropriate position. Remaining lines and tubes unchanged. 2. No evidence of acute cardiopulmonary process. Repeat chest xry revealed: IMPRESSION: 1. Small right pleural effusion. 2. Lines and tubes unchanged. Repeat chest xry revealed: IMPRESSION: 1. Small right pleural effusion. 2. Lines and tubes unchanged. Repeat chest xry revealed: IMPRESSION: 1. Small bilateral pleural effusions. 2. Lines and tubes unchanged. Repeat chest xry revealed: IMPRESSION: 1. Slight interval advancement of the endotracheal tube. Remaining lines and tubes unchanged. 2. No evidence of acute cardiopulmonary process. Repeat chest xry revealed: IMPRESSION: 1. Slight interval retraction of the endotracheal tube such that the tip now projects approximately 3.3 cm above the level of the meghan. Remaining lines and tubes unchanged. 2. No evidence of acute cardiopulmonary process. Repeat chest xry revealed: Bowel gas pattern is unremarkable. Enteric tube tip projects over the expected region of the stomach. The lung bases demonstrates bibasilar atelectasis. The lower pelvis is collimated from field of view. No acute osseous abnormality identified. Repeat chest xry revealed: Lines and Tubes: Endotracheal tube tip projects approximately 5.1 cm above the level of the meghan. Enteric catheter terminates within the gastric lumen. Right peripherally inserted central catheter tip and left subclavian central venous catheter tip project over the distal superior vena cava. Lungs: Clear Pleura: No effusion. No pneumothorax. Cardiomediastinal contours: Unremarkable Bones: Unremarkable IMPRESSION: 1. No radiographic evidence of acute cardiopulmonary abnormality. 2. Lines and tubes as above. Brain scan revealed: FINDINGS: Absence of cerebral blood flow is noted along with no brain parenchymal radiotracer uptake. Increased activity is seen in the central face likely representing vascular shunting consistent with the so-called "hot nose" sign. Findings suggest brain however clinical correlation is necessary. IMPRESSION: Findings described above, which would be consistent with brain in the appropriate clinical setting, however clinical correlation is needed. CT of the chest/abdomen/pelvis revealed: IMPRESSION: 1. Hepatic hematoma measuring up to approximately 8.6 cm in greatest dimension, as described above, with hemorrhage extending beyond the liver capsule and into the right pericolic gutter as well as into the pelvis. No definite active arterial bleeding is seen on this exam, although limited evaluation due to the timing of contrast, as this was not a CTA exam. 2. Postsurgical changes of cholecystectomy. 3. Dilated fluid-filled small bowel loops, may be due to postoperative ileus. No small bowel obstruction. 4. Small volume pneumoperitoneum, likely due to recent surgery. Small volume of gas are seen in the upper ventral abdomen from the recent surgery. 5. Dependent atelectasis in the lower lobes. Otherwise, no acute disease in the chest. 6. Endotracheal tube and enteric tube in place. 7. Atrophic right kidney incidentally noted. 8. Additional findings as described above. Critical findings Critical Result: Acute hepatic hematoma with hemorrhage extending beyond the liver capsule into the adjacent portions of the abdomen and into the pelvis as detailed above. Repeat CT of chest/abdomen/pelvis revealed: There is limited interpretation of the chest, abdomen and pelvis without administration of intravenous contrast. Endotracheal tube tip terminates just at the meghan / left main bronchus. Diffuse bilateral pulmonary airspace consolidation bilaterally significantly increased. Bilateral lower lobe lobar consolidation/ atelectasis, increased from prior. Small bilateral pleural effusions. There is extensive edema/ stranding within the upper anterior chest, neck region/supraclavicular region. There is some hyperdensity within this region which could represent components of hematoma / blood products. Heterogeneous appearance of the thyroid gland. Right IJ catheter terminating at the cavoatrial junction. Adrenal glands unremarkable in shape. Perisplenic hematoma. Interval postsurgical changes in the right upper quadrant of the abdomen. There appears to be surgicel/gaseous collection within the previous hematoma cavity, likely representing surgicel. There is a radiopaque density within the resection cavity as well which measures 6.2 x 4.6 cm.. Postoperative changes of the right anterior abdomen with soft tissue emphysema. Small amount of pneumoperitoneum Surgical drainage catheter terminating in the right upper quadrant of the abdomen Right renal parenchymal atrophy. Left kidney demonstrates perinephric edema / stranding. No left hydronephrosis. Nasogastric tube projects towards the distal stomach. Moderate distention small bowel loops. Rectal catheter. Moderate distention of the large bowel loops. Normal appendix. Abdominal aorta normal in caliber. Small amount of ascites fluid/ mesenteric edema. Bladder decompressed by Mora catheter. Soft tissue edema /anasarca. Mesenteric edema. Small amount of ascites fluid. The osseous structures are stable. IMPRESSION: Limited evaluation without contrast. Interval evacuation of the right upper quadrant hematoma. Surgicel within the resection cavity. No significant interval development of new hematoma. There are 2 radiopaque lap pads within the resection cavity . Findings reviewed with Dr. Ledesma at 11:51 a.m. on 01/30/2025 Perisplenic hematoma, similar to previous examination. Extensive bilateral pulmonary airspace consolidation, significantly increased from previous examination. Small bilateral pleural effusions. Right upper quadrant drainage catheter. Pneumoperitoneum. Soft tissue edema / anasarca. Small amount of ascites fluid/ mesenteric edema. Extensive edema within the anterior chest, neck region. Heterogeneous appearance thyroid gland. Other findings as described. CT of the head revealed: IMPRESSION: 1. No evidence of acute intracranial abnormality. Repeat CT of head revealed: FINDINGS: Cerebellar tonsilar herniation. There is sulcal and ventricular effacement. The basal cisterns are effaced. Loss of mario-white matter differentiation is noted. The skull and visible facial bones are intact. The paranasal sinuses, mastoid air cells and middle ear cavities are well-aerated. The soft tissues of the scalp are unremarkable. IMPRESSION: Diffuse cerebral edema with cerebellar tonsillar herniation. Recommend MRI brain for further evaluation. Repeat CT of head revealed: FINDINGS: There is diffuse low attenuation throughout the brain with increased effacement of the ventricles and complete sulcal effacement. There is cerebellar tonsillar herniation. The orbits are normal. There is moderate mucosal thickening within the paranasal sinuses and mastoid air cells. The soft tissues and osseous structures appear within normal limits. IMPRESSION: 1. Findings as above suggesting worsening diffuse cerebral edema in the setting of anoxic brain injury in the given clinical setting. Further clinical correlation is suggested. CT of Neck revealed: IMPRESSION: Limited evaluation without contrast. Extensive soft tissue edema within the neck extending into the anterior / upper chest and anterior mediastinum . Retropharyngeal edema. Heterogeneous appearance of the thyroid gland. Inferior cerebellar tonsillar herniation better seen on the prior CT Renal Ultrasound revealed: IMPRESSION: 1. Right kidney not visible. 2. Left kidney is enlarged. 3. No hydronephrosis. Venous duplex of lower ext revealed: IMPRESSION: NO SONOGRAPHIC EVIDENCE FOR DEEP VENOUS THROMBOSIS IN THE RIGHT LOWER EXTREMITY VEINS. EEG reported: This is a remarkably abnormal EEG, this EEG seen in severe cerebral dysfunction due to metabolic/hypoxic encephalopathy or medication effects, unless this is caused by reversible etiology, this EEG is suggestive of a poor prognosis for meaningful recovery, please correlate clinically. Arrival EKG revealed sinus tachycardia with nonspecific ST-T changes Tele reveals sinus tachycardia Echocardiogram revealed: Technically limited study secondary to poor acoustic windows. Left ventricle: Left ventricle was normal-sized with normal systolic function. LVEF was 55-60%. No gross wall motion abnormality was seen. Right ventricle was mildly dilated with normal systolic function. Left atrium was normal-sized. Right atrium was mildly dilated. Aortic valve: Aortic valve was not well visualized. There was no aortic insufficiency/stenosis. There was no mitral regurgitation. There was trace tricuspid regurgitation. Pulmonary valve was not well visualized. IVC was not visualized. Right ventricular systolic pressure was assessed around 48 mm Hg. There was no pericardial effusion. Patient is a 24-year-old gentleman who presented with post arrest. It seems that the patient had hemorrhagic (intra-abdominal) presentation. Patient did have elective laparoscopic cholecystectomy the day before presentation. On the day of presentation, the patient was taken back to operating room and this time Laparotomy was done for hepatic hematoma. Patient does have multiorgan involvement. Clinically there is no brainstem reflexes. Shock liver/acute renal failure is considered. Troponin has been high. EKG did not reveal any STEMI. Presentation could be high troponin secondary to demand physiology. Patient does not have any risk factors for baseline coronary artery disease. In ideal scenario, ischemic workup/cardiac catheterization could be more revealing. Unfortunately, the patient does have acute renal failure which could be worsened by cardiac catheterization at this point. As there was no higher brain functions the suggestion is to wait and see if patient regains any higher brain function. It is of note that during cardiac catheterization, the patient may need some anticoagulation/antiplatelets. At this point patient is having significant anemia/bleeding and receiving blood transfusion and holding off of scenario forcing Anticoagulation/antiplatelets is advised. I had a long discussion with family members and Mother (repeatedly). Clinically patient has multiorgan failure. Secondary to active bleeding, we will avoid anticoagulation/antiplatelets for now. Being managed in ICU. Was taken to OR repeatedly. Still no reflexes. Echocardiogram revealed no WMA and also revealed good EF. It also revealed increased Pulmonary Artery Pressure in favor of component of Pulmonary Hypertension. Review of Echo images revealed good right ventricular systolic function. Not typical for Pulmonary Emboli. Still, PE cannot be ruled out. If PE is ruled out, then it is possible that patient had Pulmonary Hypertension from before (Baseline history of Asthma may actually reflect it). s/p PRBC transfusion (multiple). Being followed by Surgery, Nephrology, Hematology, Pulmonary, Neurology and GI. . Repeat imaging revealed cerebellar tonsillar herniation. Neurology diagnosed Hypoxic/Metabolic Encephalopathy also. EEG findings question meaningful recovery. Neurology declared patient: brain . Neurology second opinion was in favor of Anoxic/Hypoxic Encephalopathy. Repeat imaging of brain revealed worsening diffuse cerebral edema and also again revealed cerebellar tonsillar herniation. s/ p Arrest Intra-abdominal bleeding Hepatic hematoma Multiorgan failure, due to shock Shock liver Lactic Acidosis Acute renal failure Acute respiratory failure, on vent support Status post laparotomy Status post laparoscopic cholecystectomy Abnormal troponin, evaluated to reflect possible demand physiology History of gallstones History of asthma Obesity History of marijuana abuse Consumptive Coagulopathy / DIC Pulmonary Hypertension Cerebellar tonsillar Herniation. Encephalopathy, hypoxic/metabolic Renal failure, started on hemodialysis Brain scan questions brain Anoxic Encephalopathy Cardiac suggestion for management: Manage in ICU Follow-up electrolytes and kidney function tests and correct abnormalities Evaluation and management of respiratory failure as per Pulmonary Evaluation and management of Cerebellar tonsillar herniation and worsening cerebral edema as per Neurology/surgery/primary team V/Q scan could not be completed Anoxic/Hypoxic Encephalopathy Echocardiogram revealed no WMA and also revealed good EF. It also revealed increased Pulmonary Artery Pressure in favor of component of Pulmonary Hypertension. Hematology follow up (to comment on prophylaxis / treatment of Pulmonary Emboli) Surgical follow up Nephrology follow up (started on hemodialysis) and Hematology follow up Secondary to active bleeding, we will avoid anticoagulation/antiplatelets for now Long-term prognosis depends on the above and most importantly regaining of the higher brain function: looks very grim Ischemic workup may be considered only after regaining higher brain function or any special change in clinical presentation Further evaluation and management depends on the above and clinical course A total of 75 minutes was spent reviewing the patient record, examining the patient, making a diagnostic and therapeutic plan, discussing this plan with medical personnel, following up on diagnostic studies and following the patient for clinical stability excluding any and all procedures. At least 50% of this time was spent in direct, [id number] contact. Thank you for allowing me to participate in this patient's care. Further recommendations will depend on patient's clinical course. Please do not hesitate to contact me if you have any questions or concerns. This medical document was created using electronic medical record system with [employer] computerized dictation system. Although this document has been carefully reviewed, there may still be some phonetic and typographical errors. These areas are purely typographical due to the imperfection of the software programs, and do not reflect any compromise in the patient's medical care. Dietary Evaluation Review Recommendations by RD: PPN/TPN Comments: 1) Increase TPN rate to meet at least 75% of estimated daily needs 2) Advance to renal cardiac diet when medically feasible, pending ST approval 3) Follow-up with cardiology, pulmonology, nephrology, neurology, and gastroenterology 4) Continue to monitor I&O, labs, and skin integrity Expected Outcomes/Goals: 1) nutritional support to meet at least 75% of estimated daily needs 2) labs and wound to improve 3) diet to advance 4) gradual wt loss 5) f/u in 2-3 days Plan discussed with: Other (nurse) KATHLEEN COHEN MD Feb 11, 2025 08:29
[2025-02-11 08:38] LABS: Base Excess 0.7 mmol/L (-2.0-3.0)
[2025-02-11] MEDS: ALBUMIN 25% 100 ML IV ONE (11:09)
[2025-02-11] MEDS ORDERED: CATHFLO ACTIVASE (ALTEPLASE) 2 MG VIAL IV ONE (12:15)
[2025-02-11] MEDS: VANCOMYCIN 500mg/100mL 100 ML IV ONE (13:53)
--- NOTE | 2025-02-11 18:40 | DVHPNRES ---
Progress Note Date Seen: Feb 11, 2025 Resident Creating Document: ARNOLD MUHAMMAD RESLOUIS Has the PT tested + for MRSA If YES, has PT been informed?: No Medical Necessity Reason Pt with a Central, PICC or Fol: Yes The following are medically ne: Central Line, Mora Catheter Reason for mora catheter: Nakul. Abd Surgery Subjective Review of Systems Patient seen and examined at the bedside. Patient is on mechanical ventilation, off from sedation. Objective vital signs Vital Sign Date Time Temp Pulse Resp B/P (MAP) Pulse Ox O2 Delivery O2 Flow Rate FiO2 02/11/25 18:15 97.7 85 15 107/63 (78) 97 97.7 106/57 (73) 02/11/25 18:00 30 02/11/25 18:00 Mechanical Ventilator+ Total Intake and Output 02/10/25 02/10/25 02/11/25 15:00 23:00 07:00 Intake Total 565.504 ml 515.814 ml 433 ml Output Total 525 ml 600 ml Balance 565.504 ml -9.186 ml -167 ml medications Current Medications Medications Dose Ordered Sig/Serenity Route Start Time Stop Time Status Last Admin Dose Admin Midazolam HCl 50 ml @ 1 mls/hr Q24H IV 01/29/25 14:15 01/29/25 15:56 5 MLS/HR Phenylephrine HCl 250 ml @ 30 mls/hr Q8H20M IV 01/29/25 19:30 01/30/25 01:39 116.25 MLS/HR Levalbuterol HCl 0.625 mg Q4HR PRN NEB 01/29/25 20:00 02/10/25 06:08 0.625 MG Ipratropium [place] 0.5 mg Q4HPRN PRN NEB 01/29/25 20:00 02/10/25 06:08 0.5 MG Epinephrine HCl 250 ml @ 7.5 mls/hr Q24H IV 01/30/25 00:15 Vasopressin 20 units/Sodium Chloride 100 ml @ 9 mls/hr Q11H7M IV 01/30/25 07:30 02/03/25 13:09 9 MLS/HR Amino Acids 0 ml @ 0 mls/hr PER PHARMACY IV 02/01/25 11:15 Diagnostic Test (Pha) 1 strip Q6HR 02/01/25 18:00 02/11/25 17:31 1 STRIP Insulin Human Regular FOLLOW SLIDING SCALE Q6HR [place] 02/01/25 18:00 02/02/25 11:36 2 UNITS Dextrose 50 ml UD IV 02/01/25 12:30 Epoetin Gunnar-epbx 4,000 unit MWF@2100 [place] 02/03/25 21:00 02/10/25 21:36 4,000 UNIT Piperacillin Sod/ Tazobactam Sod 100 ml @ 25 mls/hr Q8HR IV 02/03/25 14:00 02/11/25 14:39 25 MLS/HR Vancomycin HCl 0 ml @ 0 mls/hr UD IV 02/04/25 09:00 Sodium Chloride 10 ml QSHIFT@10,22 IV 02/04/25 22:00 02/11/25 10:00 10 ML Neomycin/ Polymyxin/ Bacitracin 1 applic DAILY TOP 02/06/25 10:00 02/11/25 13:52 1 APPLIC Bumetanide 2 mg BIDD IV 02/06/25 18:00 02/11/25 17:32 2 MG Norepinephrine Bitartrate 250 ml @ 0.938 mls/ hr Q24H IV 02/07/25 11:30 02/11/25 12:02 0.938 MLS/HR Artificial Tears 1 drop Q4HP PRN EACHEYE 02/08/25 07:30 Pantoprazole Sodium 40 mg Q12HR IV 02/08/25 22:00 02/11/25 13:52 40 MG Fat Emulsion Intravenous 100 ml/Sodium Chloride 30 meq/ Multivitamins 10 ml/Amino Acids/ Dextrose 1,217.5 ml @ 51 mls/hr [id number] IV 02/10/25 22:00 02/11/25 21:59 02/10/25 21:55 51 MLS/HR Fat Emulsion Intravenous 100 ml/Sodium Chloride 40 meq/ Multivitamins 10 ml/Amino Acids/ Dextrose 1,320 ml @ 55 mls/hr Q24H IV 02/11/25 22:00 02/12/25 21:59 Examination General: RASS -5, afebrile, mucosae are moist Cardiovascular: Normal S1 and S2. No murmurs, gallops or rubs Respiratory: Mechanically assisted ventilation, equal bilateral airway entree. Clear lung sounds on auscultation Abdomen: Soft, nontender, no organomegaly, with surgical wound on abdomin MSK/skin: Mobilization of limbs cannot be evaluated. Skin is dry and warm. Neurological: Orientation cannot be assessed. Pupils are dilated and nonreactive to light, absent brainstem reflexes laboratory and microbiology Laboratory Tests 02/11/25 03:09 Test 02/11/25 03:09 Range/Units Serum Glucose 98 74-106 mg/dL Microbiology Date/Time Source Procedure Growth Status 02/09/25 03:40 Blood Blood Culture - Preliminary NO GROWTH AFTER 48 HOURS OF INCUBATION. Resulted 02/02/25 22:00 Urine - [place] Urine Culture - Final Complete 01/30/25 00:00 Nose MRSA Screen - Final Complete 01/29/25 10:43 Sputum Gram Stain - Final Complete 01/29/25 10:43 Sputum Respiratory Culture - Final Complete Problem List/Assessment/Plan Problem List/Assessment/Plan This is a 24-year-old male with no significant past medical history underwent elective laparoscopic cholecystectomy on 01/28 at [facility] (due to cholelithiasis), on 2nd day postop at home became lethargic and subsequently coded. ROSC was achieved with CPR, abdominal CT scan showed intra-abdominal hematoma, underwent emergent laparotomy and drained about 500-750 thrombosed and dark blood. NEURO: Hypoxic encephalopathy, due to cardiac arrest Possible anoxic brain injury * RASS Score -5 * Head CT from 01/30 shows, Cerebellar tonsilar herniation. There is sulcal and ventricular effacement. The basal cisterns are effaced. Loss of mario-white matter differentiation is noted. * BRNNM-brain imaging, shows absence blood flow, findings suggest brain in the appropriate clinical setting * Family discussion CARDIOVASCULAR: NSTEMI possible type 2 Status post cardiac arrest Distributive shock (vasoplegia)/neurogenic shock/septic shock vasopressin * Cardiology on the board, recommended medical management * Echo from 01/30 shows,Technically limited study secondary to poor acoustic windows, normal LV size and function, 55-60% PULMONARY: Acute hypoxic respiratory failure, likely due to anoxic brain injury Cxr showed bilateral mild pulmonary vascular congestion GASTROINTESTINAL: Acute transaminitis secondary to hypovolemic shock Coagulopathy Hypoalbuminemia Status post laparoscopic cholecystectomy Status post exploratory laparotomy for hemoperitoneum GENITOURINARY: HARLEEN secondary to hypovolemic shock * Nephrology on the board, performed dialysis on 02/03 * IV Bumex drip METABOLIC: Severe anion gap metabolic acidosis due to lactic acidosis Hypernatremia Grade 2 obesity, BMI 35.7 kg per m2 Hypoglycemia HEME: Severe anemia, due to bleeding * Received 3 units of PRBC, 2 units of FFP and 1 unit of cryoprecipitate * Monitor H&H INFECTIOUS DISEASE: Leucocytosis Lactic acidosis * Urine culture, blood culture and respiratory culture shows no growth * On Zosyn and vancomycin DIET: TPN DVT prophylax: Hold GI prophylaxis: Protonix Code status: Full code LINES/DRAINS/ACCESS: ETT: Intubated on 01/29 IV access: Lt IJ placed on 01/29/25 left subclavian Drips: On Levophed Mora catheter: Placed on 01/29 DISPOSITION: ICU status Patient's status discussed with the patient's mother at the bedside. Critical care time spent more than 57 minutes, including patient care, chart review, and updating the family. Excluding any procedures. Case discussed with Dr. Troy Plan discussed with: Patient Dietary Evaluation Review Recommendations by RD: PPN/TPN Comments: 1) Increase TPN rate to meet at least 75% of estimated daily needs 2) Advance to renal cardiac diet when medically feasible, pending ST approval 3) Follow-up with cardiology, pulmonology, nephrology, neurology, and gastroenterology 4) Continue to monitor I&O, labs, and skin integrity Expected Outcomes/Goals: 1) nutritional support to meet at least 75% of estimated daily needs 2) labs and wound to improve 3) diet to advance 4) gradual wt loss 5) f/u in 2-3 days Date of Service: Feb 11, 2025 Billing Provider: JEFFREY TROY MD Common Visit Codes: 09821-[id number] CARE 30-74 MIN ARNOLD MUHAMMAD RESDIENT Feb 11, 2025 18:40 JEFFREY TROY MD Feb 12, 2025 13:31
--- NOTE | 2025-02-11 20:54 | DVHPN2 ---
Subjective DOS: 02/11/2025 [facility] Patient seen and examined at bedside. Intubated on mechanical ventilator. Overnight events reviewed. HPI: A 24-year-old man with past medical history of asthma and gallstone pancreatitis who underwent laparoscopic cholecystectomy on 01/28/2025 in . Patient was discharged on same day; and as per medical records he developed nausea, vomiting and shortness of breath the night prior to presentation and woke up very weak; noted on AM of presentation with altered level of consciousness. Paramedics were called and patient was found to be in cardiac arrest. CPR was done, ROSC obtained; however patient had fixed and dilated pupils per ER documentation on arrival. CT abdomen/pelvis without contrast in ED revealed a hepatic hematoma measuring 8.6 cm with hemorrhage extending beyond the liver capsule into the right paracolic gutter as well as the pelvis. The patient was emergently taken back to surgery and underwent evacuation of a large hemoperitoneum,. was subsequently admitted to ICU. Pulmonary consultation is requested for evaluation and management of acute hypoxic respiratory failure requiring mechanical ventilator. Past Medical History: Asthma and gallstone pancreatitis Past Surgical History: Laparoscopic cholecystectomy on 01/28/2025 at [facility] Medications: Reviewed. Allergies: No known drug allergies. Family History: No family history of premature CAD. No family history of lung disorders. Social History: Nonsmoker. No alcohol or illicit drug use. Changes from previous H/P or p: No Changes Objective Vitals Vital Signs Date Time Temp Pulse Resp B/P (MAP) Pulse Ox O2 Delivery O2 Flow Rate FiO2 02/11/25 19:12 98 Mechanical Ventilator+ 30 30 02/11/25 19:12 84 15 125/73 (90) 02/11/25 18:15 97.7 97.7 Intake/Output Intake and Output 02/11/25 07:00 Intake Total 1514.318 ml Output Total 1125 ml Balance 389.318 ml IV Total 1514.318 ml Output Urine Total 1075 ml Gastric Drainage Total 40 ml Drainage Total 10 ml Exam Gen.: Patient lying in bed in medical ICU. Intubated on mechanical ventilator. Head: Normocephalic, atraumatic. Eyes: Pupils fixed and blown Ears: Normal external anatomy. Throat: Endotracheal tube and orogastric tube in place. Neck: Supple, trachea midline. Chest: Transmitted breath sounds bilaterally. Decreased air entry bilaterally. No wheezing. Bibasilar crackles. Cardiovascular: Positive S1, positive S2. Regular rate and rhythm. Abdomen: Positive bowel sounds in all 4 quadrants. Soft, nontender, nondistended. : Green in place. Normal external genitalia. Rectal: Deferred. Skin: Warm, dry. Intact. Extremities: 2+ radial pulses bilaterally. No lower extremity edema. Neuro: No responses to painful stimuli. Medications Current Medications Medications Dose Ordered Sig/Serenity Route Start Time Stop Time Status Last Admin Dose Admin Midazolam HCl 50 ml @ 1 mls/hr Q24H IV 01/29/25 14:15 01/29/25 15:56 5 MLS/HR Phenylephrine HCl 250 ml @ 30 mls/hr Q8H20M IV 01/29/25 19:30 01/30/25 01:39 116.25 MLS/HR Levalbuterol HCl 0.625 mg Q4HR PRN NEB 01/29/25 20:00 02/10/25 06:08 0.625 MG Ipratropium [place] 0.5 mg Q4HPRN PRN NEB 01/29/25 20:00 02/10/25 06:08 0.5 MG Epinephrine HCl 250 ml @ 7.5 mls/hr Q24H IV 01/30/25 00:15 Vasopressin 20 units/Sodium Chloride 100 ml @ 9 mls/hr Q11H7M IV 01/30/25 07:30 02/03/25 13:09 9 MLS/HR Amino Acids 0 ml @ 0 mls/hr PER PHARMACY IV 02/01/25 11:15 Diagnostic Test (Pha) 1 strip Q6HR 02/01/25 18:00 02/11/25 17:31 1 STRIP Insulin Human Regular FOLLOW SLIDING SCALE Q6HR [place] 02/01/25 18:00 02/02/25 11:36 2 UNITS Dextrose 50 ml UD IV 02/01/25 12:30 Epoetin Gunnar-epbx 4,000 unit MWF@2100 [place] 02/03/25 21:00 02/10/25 21:36 4,000 UNIT Piperacillin Sod/ Tazobactam Sod 100 ml @ 25 mls/hr Q8HR IV 02/03/25 14:00 02/11/25 14:39 25 MLS/HR Vancomycin HCl 0 ml @ 0 mls/hr UD IV 02/04/25 09:00 Sodium Chloride 10 ml QSHIFT@10,22 IV 02/04/25 22:00 02/11/25 10:00 10 ML Neomycin/ Polymyxin/ Bacitracin 1 applic DAILY TOP 02/06/25 10:00 02/11/25 13:52 1 APPLIC Bumetanide 2 mg BIDD IV 02/06/25 18:00 02/11/25 17:32 2 MG Norepinephrine Bitartrate 250 ml @ 0.938 mls/ hr Q24H IV 02/07/25 11:30 02/11/25 12:02 0.938 MLS/HR Artificial Tears 1 drop Q4HP PRN EACHEYE 02/08/25 07:30 Pantoprazole Sodium 40 mg Q12HR IV 02/08/25 22:00 02/11/25 13:52 40 MG Fat Emulsion Intravenous 100 ml/Sodium Chloride 30 meq/ Multivitamins 10 ml/Amino Acids/ Dextrose 1,217.5 ml @ 51 mls/hr [id number] IV 02/10/25 22:00 02/11/25 21:59 02/10/25 21:55 51 MLS/HR Fat Emulsion Intravenous 100 ml/Sodium Chloride 40 meq/ Multivitamins 10 ml/Amino Acids/ Dextrose 1,320 ml @ 55 mls/hr Q24H IV 02/11/25 22:00 02/12/25 21:59 Laboratory Results Laboratory Tests 02/11/25 03:09 Chemistry Test 02/11/25 03:09 Albumin 3.0 g/dL (3.2-4.8) L Calcium Level 8.9 mg/dL (8.7-10.4) Magnesium Level 2.4 mg/dL (1.6-2.6) Phosphorus Level 6.5 mg/dL (2.4-5.1) H Total Protein 6.4 g/dL (5.7-8.2) Coagulation Test 02/11/25 03:09 Prothrombin Time 11.0 sec (9.3-11.8) Prothrombin Time INR 1.04 (0.9-1.15) Fibrinogen > 860 mg/dL (177-375) H von Willebrand Factor Antigen Pending LFT Test 02/11/25 03:09 Alanine Aminotransferase (ALT) 53 U/L (7-40) H Alkaline Phosphatase 502 U/L (46-116) H Aspartate Amino Transferase (AST) 189 U/L (13-40) H Total Bilirubin 1.9 mg/dL (0.2-1.0) H Urinalysis Test 01/29/25 09:54 01/29/25 14:15 Urine Color Light-orange (Yellow) Urine Clarity Turbid (Clear) H Urine pH 5.5 (5.0-9.0) Urine Specific [place] 1.017 (1.001-1.035) Urine Protein 2+ (Negative) H Urine Ketones Trace (Negative) Urine Blood 3+ /uL (Negative) H Urine Nitrite Negative (Negative) Urine Bilirubin Negative (Negative) Urine Urobilinogen Normal mg/dL (Negative) Urine Leukocyte Esterase Negative /uL (Negative) Urine RBC 130 /hpf (0 - 3) Urine Microscopic WBC < 1 /HPF (0-3) Urine Squamous Epithelial Cells Mod /hpf (<5) Urine Amorphous Crystals Few /hpf (None Seen) Urine Bacteria Few /hpf (None Seen) H Urine Glucose Trace mg/dL (Normal) Urine Creatinine 19.64 mg/dL (30.0-125.0) L Urine Sodium 98 mmol/L (40-220) Urine Total Protein 245.5 mg/dL (1-14) H Blood Gas Results Test 02/11/25 07:39 Arterial Blood pH 7.328 (7.350-7.450) FiO2 % 30.0 Microbiology Microbiology Date/Time Source Procedure Growth Status 02/09/25 03:40 Blood Blood Culture - Preliminary NO GROWTH AFTER 48 HOURS OF INCUBATION. Resulted 02/02/25 22:00 Urine - [place] Urine Culture - Final Complete 01/30/25 00:00 Nose MRSA Screen - Final Complete 01/29/25 10:43 Sputum Gram Stain - Final Complete 01/29/25 10:43 Sputum Respiratory Culture - Final Complete Assessment/Plan Assessment/Plan Impression: Acute hypoxic respiratory failure On mechanical ventilator Status post cardiac arrest Possible anoxic brain injury NSTEMI, possible type 2 Hypovolemic shock Acute kidney injury secondary to hypovolemic shock Obesity, BMI 30.4 Multiorgan failure Events: Remains on vent support AC mode with RR 14, VT 450-->500, PEEP 7, FiO2 30% Remains on pressors for hemodynamic support. On Levophed 0.5 mcg/min Titrate to keep MAP above 65 mmHg/SBP above [address] results reviewed; worsening diffuse cerebral edema in the setting of anoxic brain injury in the given clinical setting. Continue antibiotics - Zosyn. Monitor cultures Continue bronchodilators Continue Protonix for GI ppx TPN for nutritional support Continue Bumex drip for diuresis Follow up Nephrology recs Monitor renal function Monitor electrolytes. Supplement as necessary. Monitor ins and outs. Monitor hemoglobin Transfuse if less than 7.0 g/dL Absent brainstem reflexes Signs of anoxic brain injury Second opinion Neurology consult recs appreciated. No cough or gag. Respiratory drive persists. Patient noted to be overbreathing the vent Patient with pupils fixed and blown NM brain perfusion study c/w anoxic brain injury Poor chance of meaningful recovery Neurology recommendations appreciated Family deciding on goals of care. Mother at bedside. Plan for possible trach/PEG. Overall poor prognosis with multiorgan dysfunction, poor chance of meaningful recovery Labs and imaging reviewed. Rest of plan as noted below. Plan: s/p intubation on mechanical ventilator On assist control with respiratory rate of 14, tidal volume 500, PEEP of 7, FiO2 of 30% Titrate FIO2 to keep O2 saturation above 92%. VAP bundle Daily ABG and CXR while intubated. Pressors as necessary for hemodynamic support. Titrate to keep MAP above 65 mmHg/SBP above 90 mmHg. Continue antibiotics. F/u cultures. Repeat blood cultures, no growth x48 hours Sputum culture grew normal oropharyngeal slava. Monitor hemoglobin Monitor renal function due to acute kidney injury. Monitor electrolytes. Supplement as necessary. Continue diuresis per Nephrology Monitor ins and outs Hemodialysis per nephrology Nutritional support. Accu-Cheks, ISS. GI/DVT prophylaxis. Overall poor prognosis w/ poor chance of meaningful recovery Condition: Critical Prognosis: Poor given multiple comorbidities. Rest of plan per hospitalist and other consultants. A total of 35 minutes of critical care time was spent reviewing the patient record, examining the patient, making a diagnostic and therapeutic plan, discussing this plan with the medical personnel, following up on diagnostic studies and following the patient for clinical stability excluding any and all procedures. At least 50% of this time was spent in direct, [id number] contact. Thank you for allowing me to participate in this patient's care. Further recommendations will depend on patient's clinical course. Please do not hesitate to contact me if you have any questions or concerns. This medical document was created using an electronic medical record system with [employer] dictation system. Although this document has been carefully reviewed, there may still be some phonetic and typographical errors. These areas are purely typographical due to imperfections of the software programs, and do not reflect any compromise in the patient's medical care. Plan discussed with: Other (MARY ANN Singh/ROHIT) Visit Coding Pulmonary Billing Provider: NEHEMIAS BEASLEY MD Date of Service if different f: Feb 11, 2025 Common Visit Codes: 12740-[id number] INP/OBS CARE(HIGH), 69659-[id number] CARE 30-74 MIN NEHEMIAS BEASLEY MD Feb 11, 2025 20:54
--- NOTE | 2025-02-11 21:05 | DVHPN2 ---
Progress Note Date Seen: Feb 11, 2025 Has the PT tested + for MRSA If YES, has PT been informed?: No Medical Necessity Reason Pt with a Central, PICC or Fol: Yes The following are medically ne: Central Line, Mora Catheter Reason for mora catheter: Nakul. Abd Surgery Subjective Review of Systems Pt seen slightly earlier. Mother and brother at [facility]. Per RN, has remained stable. Only had brief period of Levophed during HD. TF will be initiated later tonight or tomorrow. No drain output. Objective vital signs Vital Sign Date Time Temp Pulse Resp B/P (MAP) Pulse Ox O2 Delivery O2 Flow Rate FiO2 02/11/25 20:30 92 15 161/90 (113) 98 30 02/11/25 19:12 Mechanical Ventilator+ 02/11/25 18:15 97.7 97.7 Total Intake and Output 02/10/25 02/10/25 02/11/25 15:00 23:00 07:00 Intake Total 565.504 ml 515.814 ml 433 ml Output Total 525 ml 600 ml Balance 565.504 ml -9.186 ml -167 ml medications Current Medications Medications Dose Ordered Sig/Serenity Route Start Time Stop Time Status Last Admin Dose Admin Midazolam HCl 50 ml @ 1 mls/hr Q24H IV 01/29/25 14:15 01/29/25 15:56 5 MLS/HR Phenylephrine HCl 250 ml @ 30 mls/hr Q8H20M IV 01/29/25 19:30 01/30/25 01:39 116.25 MLS/HR Levalbuterol HCl 0.625 mg Q4HR PRN NEB 01/29/25 20:00 02/10/25 06:08 0.625 MG Ipratropium Marion 0.5 mg Q4HPRN PRN NEB 01/29/25 20:00 02/10/25 06:08 0.5 MG Epinephrine HCl 250 ml @ 7.5 mls/hr Q24H IV 01/30/25 00:15 Vasopressin 20 units/Sodium Chloride 100 ml @ 9 mls/hr Q11H7M IV 01/30/25 07:30 02/03/25 13:09 9 MLS/HR Amino Acids 0 ml @ 0 mls/hr PER PHARMACY IV 02/01/25 11:15 Diagnostic Test (Pha) 1 strip Q6HR 02/01/25 18:00 02/11/25 17:31 1 STRIP Insulin Human Regular FOLLOW SLIDING SCALE Q6HR SC 02/01/25 18:00 02/02/25 11:36 2 UNITS Dextrose 50 ml UD IV 02/01/25 12:30 Epoetin Gunnar-epbx 4,000 unit MWF@2100 ND 02/03/25 21:00 02/10/25 21:36 4,000 UNIT Piperacillin Sod/ Tazobactam Sod 100 ml @ 25 mls/hr Q8HR IV 02/03/25 14:00 02/11/25 14:39 25 MLS/HR Vancomycin HCl 0 ml @ 0 mls/hr UD IV 02/04/25 09:00 Sodium Chloride 10 ml QSHIFT@10,22 IV 02/04/25 22:00 02/11/25 10:00 10 ML Neomycin/ Polymyxin/ Bacitracin 1 applic DAILY TOP 02/06/25 10:00 02/11/25 13:52 1 APPLIC Bumetanide 2 mg BIDD IV 02/06/25 18:00 02/11/25 17:32 2 MG Norepinephrine Bitartrate 250 ml @ 0.938 mls/ hr Q24H IV 02/07/25 11:30 02/11/25 12:02 0.938 MLS/HR Artificial Tears 1 drop Q4HP PRN EACHEYE 02/08/25 07:30 Pantoprazole Sodium 40 mg Q12HR IV 02/08/25 22:00 02/11/25 13:52 40 MG Fat Emulsion Intravenous 100 ml/Sodium Chloride 30 meq/ Multivitamins 10 ml/Amino Acids/ Dextrose 1,217.5 ml @ 51 mls/hr [id number] IV 02/10/25 22:00 02/11/25 21:59 02/10/25 21:55 51 MLS/HR Fat Emulsion Intravenous 100 ml/Sodium Chloride 40 meq/ Multivitamins 10 ml/Amino Acids/ Dextrose 1,320 ml @ 55 mls/hr Q24H IV 02/11/25 22:00 02/12/25 21:59 Examination Neuro. Unchanged. Dilated fixed pupils. No reflexes. CV. Hr 80s. Hemodynamically stable. LSCV and right PICC catheter exit sites remain C/D/I. Pulmonary: Intubated with mechanical ventilator support 500/14/30%/+7. RR 17 GI: Soft, obese, non distended and non tender. Incision and dressing C/D/I. Drain with scant thin serosanguineous fluid. OGT in place, no further sanguineous ouput. ETT suction tubing clean. . Mora catheter in place. Clear yellow urine in collection bag Extremities; No edema Resolved facial and neck edema. Mild orbital edema laboratory and microbiology Laboratory Tests 02/11/25 03:09 Test 02/11/25 03:09 Range/Units Serum Glucose 98 74-106 mg/dL Microbiology Date/Time Source Procedure Growth Status 02/09/25 03:40 Blood Blood Culture - Preliminary NO GROWTH AFTER 48 HOURS OF INCUBATION. Resulted 02/02/25 22:00 Urine - Mora Port Urine Culture - Final Complete 01/30/25 00:00 Nose MRSA Screen - Final Complete 01/29/25 10:43 Sputum Gram Stain - Final Complete 01/29/25 10:43 Sputum Respiratory Culture - Final Complete Problem List/Assessment/Plan Problem List/Assessment/Plan Neuro: Appreciate neurology input and assistance. CT revealed cerebral edema and tonsillar herniation.EEG no electric activity. Cerebral perfusion study confirmed no perfusion radiographically consistent with brain which was concordant with initial clinical diagnosis and EEG. However, pt continues demonstrating brain stem function as he is breathing over vent set rate of 14. RR, also witnessed up to 20s by family. There seems to be autonomic dysfunction. Pt's BP fluctuating and RR has been closer to set vent rate, with some occasional witnessed above the vent rates up to 19 to 20/min. Will discuss with neuro. 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 However, given breathing over vent set RR, he is demonstrating some neurological activity which voids previous brain assessment. [employer] insurance claim representative has been informed and process has been placed on hold.Pt family requested second neurology opinion. Dr. Meneses evaluated the patient. He then informed the family Mother, brother present and sister (Angely, on telephone) about his findings being concordant with previous assessments. They are aware that the patient's prognosis is poor with regards to meaningful recovery, that he will likely remain in a comatose state. I was present during the examination and discussion At the completion of the discussion, they were given time for questions. they had none. In the evening mother asked for Dr. Meneses to speak to pt's sister (Angely), as she had some questions. Dr. Meneses called Angely and addressed her questions. Angely and pt's mother are requesting a neurosurgery consultation to address some questions. Unfortunately those services are not available in this institution. An attempt for transfer had been made was previously made by patient case coordinator and it was rejected by [facility] secondary to herniation had already occurred. However, patient case coordinator will find out if she can have a neurosurgery tele consult arranged with insurance-pending. With permission of pt's mother and sister, I spoke to cousin, Minda (BEATRIZ MCKEON form [employer]). The case was discussed to the best of my abilities as I can't speak for the neuro aspect of his condition, other than the basic information that has already been disclosed to the family before. Pt's family state that he has been responding to verbal and physical stimuli. CT brain worsening cerebral edema and tonsillar herniation. Mother and brother informed. 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 Now requiring minimal vasopressor support. Cardiology assistance appreciated. Mechanical DVT prophylaxis. Unlikely PE (can't rule it out) but patient oxygenating well, no tachycardia. Pulmonary hypertension possibly unknowingly preexistent. Pulmonary: VDRF. Continue ventilator. Appreciate pulmonary medicine assistance. CXR no effusion. ABG stable. Pulmonary medicine following. Second request for VQ scan denied as pt in on the ventilator and reportedly cannot be done because of that. Family aware. Pt's mother had previously stated she did not want the patient to remain on PVS (coma) as she didn't want to prolong his suffering. Mother and family still feel they have not exhausted all possibilities, in spite of multiple discussions about his meaningful recovery expectations and prognosis. They are leaning to proceed with tracheostomy and PEG. GI: Trickle feeding via OGT (20mL/hr). Measure residual volume every 6 hrs. Hold for RV of 150 mL. Continue TPN until ensuring tolerance. Continue BID GI prophylaxis. Hepatic shock, transaminases improving. ALP and TB slight elevation. Appreciate GI assistance. Possible PEG/gastrostomy- pending final family decision. Mother and family continuing full care, in spite of multiple discussions about his prognosis. They still have strong nicko and beliefs he will recover. . ARF/ATN secondary to hemorrhagic shock. Uremia and hyperkalemia. Strict I&O. Stable u/o. Mora to gravity. Appreciate nephrology assistance. Replace/correct electrolytes. HD, Bumex and IVFs per nephrology. Heme/ID. Hemorrhagic shock resolved. Uremia, which may impact platelet function. Drain with scant thin serosanguineous fluid. No further sanguineous drainage from IV access, OGT or ETT suction tubing. Uremia can cause plt dysfunction. Hgb 9.1. Thrombocytopenia has resolved. Minimizing blood draw frequency to avoid worsening anemia. Will reserve blood draws for daily and only if clinically indicated at any given moment. Repeat labs AM. Appreciate hematology assistance. Repeat Bld Cx done, Negative todate. Leukocytosis resolved. Staph epi bacteremia, sensitive to Vancomycin renal dose. Continue Zosyn and Vancomycin. Vancomycin adjustment by pharmacy. Will request HD catheter change. Pt may need tunneled catheter if pt's family decides to proceed with full code/care. Endocrine: Tight glycemic control. Skin: Skin care and pressure ulcer precautions. Plan discussed with: Other (Mother, brother and RN) My Orders My Orders Orders - JITENDRA ZAMORA MD Procedure Category Date Status Time Communication Order ORDERS 02/11/25 Transmitted 06:06 * Dietary Consult CONS 02/11/25 Transmitted 06:21 Amino Acid PHA 02/11/25 In Process Infusion... W/Fat 22:00 Comprehensive LAB 02/12/25 Verified Metabolic Panel 05:00 Magnesium LAB 02/12/25 Verified 05:00 Phosphorus LAB 02/12/25 Verified 05:00 Vancomycin,Random LAB 02/12/25 Verified 04:00 Tpn Per Pharmacy YANET 02/11/25 In Process 10:44 Dietary Evaluation Review Recommendations by RD: PPN/TPN Comments: 1) Increase TPN rate to meet at least 75% of estimated daily needs 2) Advance to renal cardiac diet when medically feasible, pending ST approval 3) Follow-up with cardiology, pulmonology, nephrology, neurology, and gastroenterology 4) Continue to monitor I&O, labs, and skin integrity Expected Outcomes/Goals: 1) nutritional support to meet at least 75% of estimated daily needs 2) labs and wound to improve 3) diet to advance 4) gradual wt loss 5) f/u in 2-3 days JITENDRA ZAMORA MD Feb 11, 2025 21:05
--- NOTE | 2025-02-11 21:41 | DVHPN2 ---
Progress Note Date Seen: Feb 11, 2025 Has the PT tested + for MRSA If YES, has PT been informed?: No Medical Necessity Reason Pt with a Central, PICC or Fol: Yes The following are medically ne: Central Line, Mora Catheter Reason for mora catheter: Nakul. Abd Surgery Subjective Patient reports: Other (intubated) Review of Systems: Deferred Objective vital signs Vital Sign Date Time Temp Pulse Resp B/P (MAP) Pulse Ox O2 Delivery O2 Flow Rate FiO2 02/11/25 20:30 92 15 161/90 (113) 98 30 02/11/25 20:00 Mechanical Ventilator+ 02/11/25 18:15 97.7 97.7 Total Intake and Output 02/10/25 02/10/25 02/11/25 15:00 23:00 07:00 Intake Total 565.504 ml 515.814 ml 433 ml Output Total 525 ml 600 ml Balance 565.504 ml -9.186 ml -167 ml medications Current Medications Medications Dose Ordered Sig/Serenity Route Start Time Stop Time Status Last Admin Dose Admin Midazolam HCl 50 ml @ 1 mls/hr Q24H IV 01/29/25 14:15 01/29/25 15:56 5 MLS/HR Phenylephrine HCl 250 ml @ 30 mls/hr Q8H20M IV 01/29/25 19:30 01/30/25 01:39 116.25 MLS/HR Levalbuterol HCl 0.625 mg Q4HR PRN NEB 01/29/25 20:00 02/10/25 06:08 0.625 MG Ipratropium Sargent 0.5 mg Q4HPRN PRN NEB 01/29/25 20:00 02/10/25 06:08 0.5 MG Epinephrine HCl 250 ml @ 7.5 mls/hr Q24H IV 01/30/25 00:15 Vasopressin 20 units/Sodium Chloride 100 ml @ 9 mls/hr Q11H7M IV 01/30/25 07:30 02/03/25 13:09 9 MLS/HR Amino Acids 0 ml @ 0 mls/hr PER PHARMACY IV 02/01/25 11:15 Diagnostic Test (Pha) 1 strip Q6HR 02/01/25 18:00 02/11/25 17:31 1 STRIP Insulin Human Regular FOLLOW SLIDING SCALE Q6HR SC 02/01/25 18:00 02/02/25 11:36 2 UNITS Dextrose 50 ml UD IV 02/01/25 12:30 Epoetin Gunnar-epbx 4,000 unit MWF@2100 SC 02/03/25 21:00 02/10/25 21:36 4,000 UNIT Piperacillin Sod/ Tazobactam Sod 100 ml @ 25 mls/hr Q8HR IV 02/03/25 14:00 02/11/25 14:39 25 MLS/HR Vancomycin HCl 0 ml @ 0 mls/hr UD IV 02/04/25 09:00 Sodium Chloride 10 ml QSHIFT@10,22 IV 02/04/25 22:00 02/11/25 10:00 10 ML Neomycin/ Polymyxin/ Bacitracin 1 applic DAILY TOP 02/06/25 10:00 02/11/25 13:52 1 APPLIC Bumetanide 2 mg BIDD IV 02/06/25 18:00 02/11/25 17:32 2 MG Norepinephrine Bitartrate 250 ml @ 0.938 mls/ hr Q24H IV 02/07/25 11:30 02/11/25 12:02 0.938 MLS/HR Artificial Tears 1 drop Q4HP PRN EACHEYE 02/08/25 07:30 Pantoprazole Sodium 40 mg Q12HR IV 02/08/25 22:00 02/11/25 13:52 40 MG Fat Emulsion Intravenous 100 ml/Sodium Chloride 30 meq/ Multivitamins 10 ml/Amino Acids/ Dextrose 1,217.5 ml @ 51 mls/hr [id number] IV 02/10/25 22:00 02/11/25 21:59 02/10/25 21:55 51 MLS/HR Fat Emulsion Intravenous 100 ml/Sodium Chloride 40 meq/ Multivitamins 10 ml/Amino Acids/ Dextrose 1,320 ml @ 55 mls/hr Q24H IV 02/11/25 22:00 02/12/25 21:59 Examination: GENERAL:Abnormal, LUNGS:Abnormal, MSK:Abnormal, NEURO:Abnormal laboratory and microbiology Laboratory Tests 02/11/25 03:09 Test 02/11/25 03:09 Range/Units Serum Glucose 98 74-106 mg/dL Microbiology Date/Time Source Procedure Growth Status 02/09/25 03:40 Blood Blood Culture - Preliminary NO GROWTH AFTER 48 HOURS OF INCUBATION. Resulted 02/02/25 22:00 Urine - Mora Port Urine Culture - Final Complete 01/30/25 00:00 Nose MRSA Screen - Final Complete 01/29/25 10:43 Sputum Gram Stain - Final Complete 01/29/25 10:43 Sputum Respiratory Culture - Final Complete Problem List/Assessment/Plan Problem List/Assessment/Plan Acute kidney injury likely ischemic ATN in the setting of shock, FeNa > 2%, nonoliguric Acute respiratory failure, intubated on ventilator Status post cardiac arrest Anoxic encephalopathy//brain herniation Hyperkalemia secondary to above Metabolic acidosis anion gap secondary to lactic acidosis secondary to reduced perfusion from hemorrhage Hemodynamic shock from bleeding Acute blood loss anemia/post op Status post laparoscopic cholecystectomy on 01/28/25 [facility] Status post ex lap, 01/29 Positive troponins NSTEMI--likely demand ischemia Shock liver Hypokalemia Recommendations Hemodialysis today /next dialysis We will follow closely Plan discussed with: Other My Orders My Orders Orders - SILVIA NOONAN MD Procedure Category Date Status Time Hemodialysis Orders ORDERS 02/11/25 Transmitted 04:00 Dietary Evaluation Review Recommendations by RD: PPN/TPN Comments: 1) Increase TPN rate to meet at least 75% of estimated daily needs 2) Advance to renal cardiac diet when medically feasible, pending ST approval 3) Follow-up with cardiology, pulmonology, nephrology, neurology, and gastroenterology 4) Continue to monitor I&O, labs, and skin integrity Expected Outcomes/Goals: 1) nutritional support to meet at least 75% of estimated daily needs 2) labs and wound to improve 3) diet to advance 4) gradual wt loss 5) f/u in 2-3 days SILVIA NOONAN MD Feb 11, 2025 21:41
[2025-02-11] MEDS: TPN PER PHARMACY IV NR (22:29)
[2025-02-12] VITALS (113 sets, daily range): BP systolic 74–223; BP diastolic 27–146; PULSE 72–104; RESP 14–19; TEMP 96.4–98.6; O2SAT 96–100
[2025-02-12 03:34] LABS: Hematocrit 25.2 % (41.0-53.0); Hemoglobin 8.5 g/dL (13.5-17.5); Mean Corpuscular Hemoglobin 30.1 pg (28.0-32.0); Mean Corpuscular Volume 89.3 fL (80.0-100.0); Nucleated Red Blood Cells % 0.3 %
[2025-02-12 03:52] LABS: Anion Gap 11 (5-15); BUN/Creatinine Ratio 8.9 (10.0-20.0); Calcium 9.0 mg/dL (8.7-10.4); Carbon Dioxide 29 mmol/L (20-31); Chloride 101 mmol/L (98-107); Glucose 96 mg/dL (74-106); Magnesium 2.2 mg/dL (1.6-2.6); Potassium 4.0 mmol/L (3.5-5.1); Sodium 141 mmol/L (136-145); Total Protein 6.2 g/dL (5.7-8.2)
[2025-02-12 03:58] LABS: Alanine Aminotransferase 44 U/L (7-40); Albumin 2.9 g/dL (3.2-4.8); Alkaline Phosphatase 573 U/L (46-116); Bilirubin, Total 2.8 mg/dL (0.2-1.0); Blood Urea Nitrogen 50 mg/dL (9-23)
--- NOTE | 2025-02-12 05:10 | DVH ---
CHEST RADIOGRAPH Indication: VDRF Technique: Single frontal view of the chest was obtained Comparison: XY CHEST PORTABLE on DOS: 02/11/25 FINDINGS: Lines and Tubes: There is a right PICC with its tip terminating in the superior vena cava. There is a left central venous catheter with is tip terminating in the superior vena cava. The enteric tube terminates in the stomach. The endotracheal tube terminates 3.7 cm above the meghan. Lungs: Bibasilar airspace disease. Pleura: Suspect bilateral small pleural effusions. No pneumothorax. Cardiomediastinal contours: Cardiomegaly. Bones: No acute osseous abnormality. IMPRESSION: 1. Stable position of the support lines and tubes. 2. Bibasilar airspace disease which may reflect atelectasis and/or pneumonia. Possible small bilatera l pleural effusions.
--- NOTE | 2025-02-12 06:38 | DVHPN2 ---
Progress Note Date Seen: Feb 12, 2025 Has the PT tested + for MRSA If YES, has PT been informed?: No Medical Necessity Reason Pt with a Central, PICC or Fol: Yes The following are medically ne: Central Line, Mora Catheter Reason for mora catheter: Nakul. Abd Surgery Subjective Review of Systems Pt seen earlier this morning. Per RN no changes. No drain output. Remains with fluctuating episodes of hypertension. No bleeding for IV/catheter sites, ETT suction tubing or OGT. Some small clots in mouth with oral care. Good u/o Objective vital signs Vital Sign Date Time Temp Pulse Resp B/P (MAP) Pulse Ox O2 Delivery O2 Flow Rate FiO2 02/12/25 06:12 105/58 02/12/25 04:10 81 14 98 30 02/12/25 00:00 98.6 98.6 02/12/25 00:00 Mechanical Ventilator+ Total Intake and Output 02/11/25 02/11/25 02/12/25 15:00 23:00 07:00 Intake Total 440.502 ml 490.814 ml Output Total 1000 ml 480 ml Balance -559.498 ml 10.814 ml medications Current Medications Medications Dose Ordered Sig/Serenity Route Start Time Stop Time Status Last Admin Dose Admin Midazolam HCl 50 ml @ 1 mls/hr Q24H IV 01/29/25 14:15 01/29/25 15:56 5 MLS/HR Phenylephrine HCl 250 ml @ 30 mls/hr Q8H20M IV 01/29/25 19:30 01/30/25 01:39 116.25 MLS/HR Levalbuterol HCl 0.625 mg Q4HR PRN NEB 01/29/25 20:00 02/10/25 06:08 0.625 MG Ipratropium [place] 0.5 mg Q4HPRN PRN NEB 01/29/25 20:00 02/10/25 06:08 0.5 MG Epinephrine HCl 250 ml @ 7.5 mls/hr Q24H IV 01/30/25 00:15 Vasopressin 20 units/Sodium Chloride 100 ml @ 9 mls/hr Q11H7M IV 01/30/25 07:30 02/03/25 13:09 9 MLS/HR Amino Acids 0 ml @ 0 mls/hr PER PHARMACY IV 02/01/25 11:15 Diagnostic Test (Pha) 1 strip Q6HR 02/01/25 18:00 02/12/25 06:12 1 STRIP Insulin Human Regular FOLLOW SLIDING SCALE Q6HR SC 02/01/25 18:00 02/02/25 11:36 2 UNITS Dextrose 50 ml UD IV 02/01/25 12:30 Epoetin Gunnar-epbx 4,000 unit MWF@2100 [place] 02/03/25 21:00 02/10/25 21:36 4,000 UNIT Piperacillin Sod/ Tazobactam Sod 100 ml @ 25 mls/hr Q8HR IV 02/03/25 14:00 02/12/25 06:11 25 MLS/HR Vancomycin HCl 0 ml @ 0 mls/hr UD IV 02/04/25 09:00 Sodium Chloride 10 ml QSHIFT@10,22 IV 02/04/25 22:00 02/11/25 22:29 10 ML Neomycin/ Polymyxin/ Bacitracin 1 applic DAILY TOP 02/06/25 10:00 02/11/25 13:52 1 APPLIC Bumetanide 2 mg BIDD IV 02/06/25 18:00 02/12/25 06:12 2 MG Norepinephrine Bitartrate 250 ml @ 0.938 mls/ hr Q24H IV 02/07/25 11:30 02/11/25 12:02 0.938 MLS/HR Artificial Tears 1 drop Q4HP PRN EACHEYE 02/08/25 07:30 Pantoprazole Sodium 40 mg Q12HR IV 02/08/25 22:00 02/11/25 22:29 40 MG Fat Emulsion Intravenous 100 ml/Sodium Chloride 40 meq/ Multivitamins 10 ml/Amino Acids/ Dextrose 1,320 ml @ 55 mls/hr Q24H IV 02/11/25 22:00 02/12/25 21:59 02/11/25 22:29 55 MLS/HR Enteral Nutritional Formula 1,000 ml 20 NG 02/11/25 23:15 Examination Neuro. Unchanged. Dilated fixed pupils. No reflexes. CV. Hr 80s. Hemodynamically stable. LSCV and right PICC catheter exit sites remain C/D/I. Pulmonary: Intubated with mechanical ventilator support 500/14/30%/+7. RR 14. ETT suction tubing clean. GI: Soft, obese, non distended and non tender. Incision and dressing C/D/I. Drain with scant thin serosanguineous fluid. Removed. No complications. Dressing applied. OGT in place, no further sanguineous ouput. . Mora catheter in place. Clear yellow urine in collection bag Extremities; No edema Resolved facial and neck edema. Mild orbital edema laboratory and microbiology Laboratory Tests 02/12/25 02:53 Test 02/12/25 02:53 Range/Units Serum Glucose 96 74-106 mg/dL Microbiology Date/Time Source Procedure Growth Status 02/09/25 03:40 Blood Blood Culture - Preliminary NO GROWTH AFTER 72 HOURS OF INCUBATION. 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 CT revealed cerebral edema and tonsillar herniation.EEG no electric activity. Cerebral perfusion study confirmed no perfusion radiographically consistent with brain which was concordant with initial clinical diagnosis and EEG. However, pt continues demonstrating brain stem function as he is breathing over vent set rate of 14. RR. There seems to be autonomic dysfunction. Pt's BP fluctuating and RR. 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 However, given breathing over vent set RR, he is demonstrating some neurological activity which voids previous brain assessment. [employer] representative has been informed and process has been placed on hold. Pt family requested second neurology opinion. Dr. Meneses evaluated the patient. He then informed pt's Mother, brother present and sister (Angely, on telephone) about his findings being concordant with previous assessments. They are aware that the patient's prognosis is poor with regards to meaningful recovery, that he will likely remain in a comatose state. I was present during the examination and discussion. Angely and pt's mother are requested a neurosurgery consultation to address some questions. Unfortunately those services are not available in this institution. An attempt for transfer had been made was previously made by showcase maker and it was rejected by [facility] secondary to herniation had already occurred. However, showcase maker will find out if she can have a neurosurgery tele consult arranged with insurance-pending. With permission of pt's mother and sister, I spoke to cousin, Minda (BEATRIZ MCKEON form [place]). The case was discussed to the best of my abilities as I can't speak for the neuro aspect of his condition, other than the basic information that has already been disclosed to the family before. Pt's family state that he has been responding to verbal and physical stimuli. CT brain worsening cerebral edema and tonsillar herniation. Mother and brother informed last night. 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 Now requiring minimal vasopressor support. Cardiology assistance appreciated. Mechanical DVT prophylaxis. Unlikely PE (can't rule it out) but patient oxygenating well, no tachycardia. Pulmonary hypertension possibly unknowingly preexistent. Pulmonary: VDRF. Continue ventilator. Appreciate pulmonary medicine assistance. ABG yesterday respiratory acidosis. CXR ATX or PNA. No expectoration/phlegm upon suctioning. Pending ABG today. Pulmonary medicine following. Second request for VQ scan denied as pt in on the ventilator and reportedly cannot be done because of that. Family aware. Pt's mother had previously stated she did not want the patient to remain on PVS (coma) as she didn't want to prolong his suffering. Mother and family still feel they have not exhausted all possibilities, in spite of multiple discussions about his meaningful recovery expectations and prognosis. They are leaning to proceed with tracheostomy and PEG. GI: Trickle feeding via OGT (20mL/hr). Measure residual volume every 6 hrs. Hold for RV of 150 mL. Continue TPN until ensuring tolerance. Continue BID GI prophylaxis. Hepatic shock, stable. Appreciate GI assistance. Possible PEG/gastrostomy- pending final family decision. Mother and family continuing full care, in spite of multiple discussions about his prognosis. They still have strong nicko and beliefs he will recover. . ARF/ATN secondary to hemorrhagic shock. Uremia and hyperkalemia. Strict I&O. Stable u/o. Mora to gravity. Appreciate nephrology assistance. Replace/correct electrolytes. HD, Bumex and IVFs per nephrology. May need permanent HD catheter. Will discuss with nephrology. Heme/ID. Hemorrhagic shock resolved. Uremia, which may impact platelet function. No further sanguineous drainage from IV access, OGT or ETT suction tubing. Uremia can cause plt dysfunction. Hgb 8.5, likely from phlebotomy. No evidence of active bleeding. Thrombocytopenia has resolved. Minimizing blood draw frequency to avoid worsening anemia. Will reserve blood draws for daily and only if clinically indicated at any given moment. Repeat labs AM. Appreciate hematology assistance. Repeat Bld Cx done, Negative todate. Leukocytosis resolved. Staph epi bacteremia, sensitive to Vancomycin renal dose. Continue Zosyn and Vancomycin. Vancomycin adjustment by pharmacy. Endocrine: Tight glycemic control. Skin: Skin care and pressure ulcer precautions. Plan discussed with: Other (RN) My Orders My Orders Orders - JITENDRA ZAMORA MD Procedure Category Date Status Time Amino Acid PHA 02/11/25 In Process Infusion... W/Fat 22:00 Tpn Per Pharmacy YANET 02/11/25 In Process 10:44 Nutritional PHA 02/11/25 In Process Supplements (Nepro 23:15 Dietary Evaluation Review Recommendations by RD: PPN/TPN Comments: 1) Increase TPN rate to meet at least 75% of estimated daily needs 2) Advance to renal cardiac diet when medically feasible, pending ST approval 3) Follow-up with cardiology, pulmonology, nephrology, neurology, and gastroenterology 4) Continue to monitor I&O, labs, and skin integrity Expected Outcomes/Goals: 1) nutritional support to meet at least 75% of estimated daily needs 2) labs and wound to improve 3) diet to advance 4) gradual wt loss 5) f/u in 2-3 days JITENDRA ZAMORA MD Feb 12, 2025 06:38
--- NOTE | 2025-02-12 07:47 | DVHPN2 ---
Progress Note - Dictate Date Seen: Feb 12, 2025 Has the PT tested + for MRSA If YES, has PT been informed?: No Medical Necessity Reason Pt with a Central, PICC or Fol: Yes The following are medically ne: Central Line, Mora Catheter Reason for mora catheter: Nakul. Abd Surgery vital signs Vital Sign Date Time Temp Pulse Resp B/P (MAP) Pulse Ox O2 Delivery O2 Flow Rate FiO2 02/12/25 06:45 82 14 93/52 (66) 97 98/47 (64) 02/12/25 06:17 30 02/12/25 06:00 Mechanical Ventilator+ 02/12/25 04:00 98.4 98.4 Total Intake and Output 02/11/25 02/11/25 02/12/25 15:00 23:00 07:00 Intake Total 440.502 ml 490.814 ml 385 ml Output Total 1000 ml 480 ml 510 ml Balance -559.498 ml 10.814 ml -125 ml medications Current Medications Medications Dose Ordered Sig/Serenity Route Start Time Stop Time Status Last Admin Dose Admin Midazolam HCl 50 ml @ 1 mls/hr Q24H IV 01/29/25 14:15 01/29/25 15:56 5 MLS/HR Phenylephrine HCl 250 ml @ 30 mls/hr Q8H20M IV 01/29/25 19:30 01/30/25 01:39 116.25 MLS/HR Levalbuterol HCl 0.625 mg Q4HR PRN NEB 01/29/25 20:00 02/10/25 06:08 0.625 MG Ipratropium [place] 0.5 mg Q4HPRN PRN NEB 01/29/25 20:00 02/10/25 06:08 0.5 MG Epinephrine HCl 250 ml @ 7.5 mls/hr Q24H IV 01/30/25 00:15 Vasopressin 20 units/Sodium Chloride 100 ml @ 9 mls/hr Q11H7M IV 01/30/25 07:30 02/03/25 13:09 9 MLS/HR Amino Acids 0 ml @ 0 mls/hr PER PHARMACY IV 02/01/25 11:15 Diagnostic Test (Pha) 1 strip Q6HR 02/01/25 18:00 02/12/25 06:12 1 STRIP Insulin Human Regular FOLLOW SLIDING SCALE Q6HR SC 02/01/25 18:00 02/02/25 11:36 2 UNITS Dextrose 50 ml UD IV 02/01/25 12:30 Epoetin Gunnar-epbx 4,000 unit MWF@2100 [place] 02/03/25 21:00 02/10/25 21:36 4,000 UNIT Piperacillin Sod/ Tazobactam Sod 100 ml @ 25 mls/hr Q8HR IV 02/03/25 14:00 02/12/25 06:11 25 MLS/HR Vancomycin HCl 0 ml @ 0 mls/hr UD IV 02/04/25 09:00 Sodium Chloride 10 ml QSHIFT@10,22 IV 02/04/25 22:00 02/11/25 22:29 10 ML Neomycin/ Polymyxin/ Bacitracin 1 applic DAILY TOP 02/06/25 10:00 02/11/25 13:52 1 APPLIC Bumetanide 2 mg BIDD IV 02/06/25 18:00 02/12/25 06:12 2 MG Norepinephrine Bitartrate 250 ml @ 0.938 mls/ hr Q24H IV 02/07/25 11:30 02/11/25 12:02 0.938 MLS/HR Artificial Tears 1 drop Q4HP PRN EACHEYE 02/08/25 07:30 Pantoprazole Sodium 40 mg Q12HR IV 02/08/25 22:00 02/11/25 22:29 40 MG Fat Emulsion Intravenous 100 ml/Sodium Chloride 40 meq/ Multivitamins 10 ml/Amino Acids/ Dextrose 1,320 ml @ 55 mls/hr Q24H IV 02/11/25 22:00 02/12/25 21:59 02/11/25 22:29 55 MLS/HR Enteral Nutritional Formula 1,000 ml 20 NG 02/11/25 23:15 laboratory and microbiology Laboratory Tests 02/12/25 02:53 Test 02/12/25 02:53 Range/Units Serum Glucose 96 74-106 mg/dL Assessment/Plan Still in ICU. On vent support. Blood pressure stable. Off any pressure support. No gross higher brain reflexes. Pupils are dilated and fixed. Seen by Neurology: Hypoxic Encephalopathy No reported arrhythmia overnight Echocardiogram revealed no WMA and also revealed good EF. It also revealed increased Pulmonary Artery Pressure in favor of component of Pulmonary Hypertension. s/p Hemodialysis Received blood and platelet transfusion repeatedly Patient is a 24-year-old gentleman who was originally brought to the hospital for post arrest. Patient is seen in postop area. Patient is intubated and on multiple pressor supports. Patient is not source of history. Information was obtained by reviewing the chart, talking to patient's family/mother and communicating with staff and reviewing outside records ([facility]). Patient did have elective outpatient laparoscopic cholecystectomy in [facility] on January 28 2025. As per mother, after going home, patient was feeling very hungry and was eating and drinking a lot. He started feeling abdominal pain with nausea at night and in the morning was short of breath. As per mother: patient has stopped breathing in the morning and family called 911. As per mother, as per guidance of 911, family started CPR until EMS arrived. Patient was intubated and was brought to the hospital by EMS. Since arrival to [facility], patient was seen by surgeon who took the patient to operating room and performed laparotomy (there was hepatic hematoma). Postoperatively, the patient has remained hypotensive. There is signs for multiorgan involvement. Patient was not alert and did not complain of any chest pains. Labs revealed increased troponin. Cardiology is involved for cardiac aspects of care and abnormal troponin. First available EKG reveals sinus tachycardia with no specific ST-T changes. Telemetry had revealed sinus tachycardia throughout the stay. Patient is found to have significant anemia and is receiving blood transfusion at the time of evaluation. It is of note that at the time of evaluation patient does not have any reflexes. Intubated. Mucosa pale. Dilated and fixed pupils, Scattered rhonchi in the lungs. Cardiac: Tachycardic. No murmur. Abdomen is covered by dressing. Extremities do not reveal any edema. Dorsalis pedis is 1+ bilateral. Patient does not respond to any stimuli. Reported past medical history includes asthma and obesity. Reportedly, on January 23, 2025: Patient presented to [facility] for abdominal pain/nausea/vomiting. At that point the problems were ongoing for few weeks. In [facility], CT of the abdomen and MRCP were performed. Patient was seen by GI/surgery. Patient was found to have gallstones. Patient was discharged and later on January 28, 2025 presented back to [facility] for elective laparoscopy cholecystectomy. Patient was discharged home from [facility] after laparoscopic cholecystectomy. As per mother, patient does not have baseline history of any cardiac history. As per mother, patient was using marijuana. Mother denies any previous substance abuse besides marijuana. No specific family history is reported On January 23, 2025, labs in [facility] revealed creatinine of 0.84, hemoglobin of 15.2 and troponin (high sensitive) of <3. At that point EKG was normal WBC: 20.1 - 19.0 - 22.7 - 20.6 - 28.4 - 20.3 - 21.0 - 25.2 - 29.8 - 29.5 - 29.0 - 26.2 - 21.7 - 19.7 - 17.7 - 15.3 - 12.2 - 10.5 - 11.2 - 13.0 - 10.7 - 9.0 Hemoglobin: 8.3 - 6.5 - 12.1 - 11.1 - 12.1 - 9.3 - 9.2 - 9.1 - 8.4 - 9.0 - 9.5 - 8.8 - 8.4 - 8.0 - 9.7 - 9.6 - 9.8 - 9.6 - 9.7 - 9.8 - 9.1 - 8.5 Fibrinogen: 108 - 316 - 537 - 689 - >860 Creatinine: 4.02 - 3.78 - 3.90 - 3.95 - 4.34 - 5.44 - 6.05 - 6.73 - 7.31 - 7.77 - 6.64 - 7.30 - 4.91 - 5.32 - 7.40 - 5.98 - 7.66 - 6.28 - 7.71 - 8.67 - 6.87 - 5.62 Potassium: 5.6 - 4.6 - 4.8 - 3.9 - 2.9 - 2.9 - 3.6 - 3.8 - 4.9 - 5.4 - 6.0 - 5.1 - 5.3 - 6.1 - 6.0 - 4.6 - 4.4 - 4.3 - 3.5 - 3.4 - 3.7 - 4.5 - 5.7 - 5.2 - 4.0 AST/ALT: 684/123 - 9612/4238 - 7353/2521 - -/1995 - 2500/1989 - 1780/1821 - 808/995 - 586/735 - 456/444 - 312/290 - 237/163 - 215/125 - 190/87 - 200/74 - 202/66 - 189/53 - 186/44 Lactic acid: 17.9 - 17.2 - 11.4 Troponin (high sensitive): 0394 - 9286 - 9375 - 1884 - 6747 TSH: 11.05 Urine Toxicology: positive for Fentanyl and Benzodiazepine Chest x-ray revealed: Lines and Tubes: Endotracheal tube projects 2.2 cm above the meghan. Right internal jugular central venous catheter tip projects over superior vena cava. Lungs: No focal consolidation. Low lung volumes. Pleura: No effusion. No pneumothorax. Cardiomediastinal contours: Unremarkable Bones: No acute osseous abnormality. IMPRESSION: Lines and tubes as above. Low lung volumes. Repeat chest x-ray revealed: IMPRESSION: Lines and tubes in satisfactory position. Mild increased pulmonary vascular congestion Repeat chest xry revealed: IMPRESSION: Lines and tubes in satisfactory position. Mild increased pulmonary vascular congestion Repeat chest xry revealed: IMPRESSION: 1. Low lung volumes with concomitant crowding of the pulmonary vasculature. 2. No evidence of focal consolidation. 3. Lines and tubes unchanged. Repeat chest xry revealed: IMPRESSION: 1. Slight interval retraction of the endotracheal tube such that the tip now projects approximately 4.7 cm above the level of the meghan. Remaining lines and tubes unchanged. 2. Otherwise no significant change compared to prior exam. Repeat chest xry revealed: IMPRESSION: 1. Slight interval advancement of endotracheal tube such that the tip now projects approximately 1.7 cm above the level of the meghna. Remaining lines and tubes unchanged. 2. Otherwise no significant change compared to prior exam. Repeat chest xry revealed: IMPRESSION: 1. Slight interval retraction of the endotracheal tube such that the tip now projects approximately 3.3 cm above the level of the meghan. Remaining lines and tubes unchanged. 2. No evidence of acute cardiopulmonary process. Repeat chest xry revealed: IMPRESSION: 1. Endotracheal tube in appropriate position. Remaining lines and tubes unchanged. 2. No evidence of acute cardiopulmonary process. Repeat chest xry revealed: IMPRESSION: 1. Small right pleural effusion. 2. Lines and tubes unchanged. Repeat chest xry revealed: IMPRESSION: 1. Small right pleural effusion. 2. Lines and tubes unchanged. Repeat chest xry revealed: IMPRESSION: 1. Small bilateral pleural effusions. 2. Lines and tubes unchanged. Repeat chest xry revealed: IMPRESSION: 1. Slight interval advancement of the endotracheal tube. Remaining lines and tubes unchanged. 2. No evidence of acute cardiopulmonary process. Repeat chest xry revealed: IMPRESSION: 1. Slight interval retraction of the endotracheal tube such that the tip now projects approximately 3.3 cm above the level of the meghan. Remaining lines and tubes unchanged. 2. No evidence of acute cardiopulmonary process. Repeat chest xry revealed: Bowel gas pattern is unremarkable. Enteric tube tip projects over the expected region of the stomach. The lung bases demonstrates bibasilar atelectasis. The lower pelvis is collimated from field of view. No acute osseous abnormality identified. Repeat chest xry revealed: Lines and Tubes: Endotracheal tube tip projects approximately 5.1 cm above the level of the meghan. Enteric catheter terminates within the gastric lumen. Right peripherally inserted central catheter tip and left subclavian central venous catheter tip project over the distal superior vena cava. Lungs: Clear Pleura: No effusion. No pneumothorax. Cardiomediastinal contours: Unremarkable Bones: Unremarkable IMPRESSION: 1. No radiographic evidence of acute cardiopulmonary abnormality. 2. Lines and tubes as above. Repeat chest xry revealed: IMPRESSION: 1. Stable position of the support lines and tubes. 2. Bibasilar airspace disease which may reflect atelectasis and/or pneumonia. Possible small bilateral pleural effusions. Brain scan revealed: FINDINGS: Absence of cerebral blood flow is noted along with no brain parenchymal radiotracer uptake. Increased activity is seen in the central face likely representing vascular shunting consistent with the so-called "hot nose" sign. Findings suggest brain however clinical correlation is necessary. IMPRESSION: Findings described above, which would be consistent with brain in the appropriate clinical setting, however clinical correlation is needed. CT of the chest/abdomen/pelvis revealed: IMPRESSION: 1. Hepatic hematoma measuring up to approximately 8.6 cm in greatest dimension, as described above, with hemorrhage extending beyond the liver capsule and into the right pericolic gutter as well as into the pelvis. No definite active arterial bleeding is seen on this exam, although limited evaluation due to the timing of contrast, as this was not a CTA exam. 2. Postsurgical changes of cholecystectomy. 3. Dilated fluid-filled small bowel loops, may be due to postoperative ileus. No small bowel obstruction. 4. Small volume pneumoperitoneum, likely due to recent surgery. Small volume of gas are seen in the upper ventral abdomen from the recent surgery. 5. Dependent atelectasis in the lower lobes. Otherwise, no acute disease in the chest. 6. Endotracheal tube and enteric tube in place. 7. Atrophic right kidney incidentally noted. 8. Additional findings as described above. Critical findings Critical Result: Acute hepatic hematoma with hemorrhage extending beyond the liver capsule into the adjacent portions of the abdomen and into the pelvis as detailed above. Repeat CT of chest/abdomen/pelvis revealed: There is limited interpretation of the chest, abdomen and pelvis without administration of intravenous contrast. Endotracheal tube tip terminates just at the meghan / left main bronchus. Diffuse bilateral pulmonary airspace consolidation bilaterally significantly increased. Bilateral lower lobe lobar consolidation/ atelectasis, increased from prior. Small bilateral pleural effusions. There is extensive edema/ stranding within the upper anterior chest, neck region/supraclavicular region. There is some hyperdensity within this region which could represent components of hematoma / blood products. Heterogeneous appearance of the thyroid gland. Right IJ catheter terminating at the cavoatrial junction. Adrenal glands unremarkable in shape. Perisplenic hematoma. Interval postsurgical changes in the right upper quadrant of the abdomen. There appears to be surgicel/gaseous collection within the previous hematoma cavity, likely representing surgicel. There is a radiopaque density within the resection cavity as well which measures 6.2 x 4.6 cm.. Postoperative changes of the right anterior abdomen with soft tissue emphysema. Small amount of pneumoperitoneum Surgical drainage catheter terminating in the right upper quadrant of the abdomen Right renal parenchymal atrophy. Left kidney demonstrates perinephric edema / stranding. No left hydronephrosis. Nasogastric tube projects towards the distal stomach. Moderate distention small bowel loops. Rectal catheter. Moderate distention of the large bowel loops. Normal appendix. Abdominal aorta normal in caliber. Small amount of ascites fluid/ mesenteric edema. Bladder decompressed by Mora catheter. Soft tissue edema /anasarca. Mesenteric edema. Small amount of ascites fluid. The osseous structures are stable. IMPRESSION: Limited evaluation without contrast. Interval evacuation of the right upper quadrant hematoma. Surgicel within the resection cavity. No significant interval development of new hematoma. There are 2 radiopaque lap pads within the resection cavity . Findings reviewed with Dr. Ledesma at 11:51 a.m. on 01/30/2025 Perisplenic hematoma, similar to previous examination. Extensive bilateral pulmonary airspace consolidation, significantly increased from previous examination. Small bilateral pleural effusions. Right upper quadrant drainage catheter. Pneumoperitoneum. Soft tissue edema / anasarca. Small amount of ascites fluid/ mesenteric edema. Extensive edema within the anterior chest, neck region. Heterogeneous appearance thyroid gland. Other findings as described. CT of the head revealed: IMPRESSION: 1. No evidence of acute intracranial abnormality. Repeat CT of head revealed: FINDINGS: Cerebellar tonsilar herniation. There is sulcal and ventricular effacement. The basal cisterns are effaced. Loss of mario-white matter differentiation is noted. The skull and visible facial bones are intact. The paranasal sinuses, mastoid air cells and middle ear cavities are well-aerated. The soft tissues of the scalp are unremarkable. IMPRESSION: Diffuse cerebral edema with cerebellar tonsillar herniation. Recommend MRI brain for further evaluation. Repeat CT of head revealed: FINDINGS: There is diffuse low attenuation throughout the brain with increased effacement of the ventricles and complete sulcal effacement. There is cerebellar tonsillar herniation. The orbits are normal. There is moderate mucosal thickening within the paranasal sinuses and mastoid air cells. The soft tissues and osseous structures appear within normal limits. IMPRESSION: 1. Findings as above suggesting worsening diffuse cerebral edema in the setting of anoxic brain injury in the given clinical setting. Further clinical correlation is suggested. CT of Neck revealed: IMPRESSION: Limited evaluation without contrast. Extensive soft tissue edema within the neck extending into the anterior / upper chest and anterior mediastinum . Retropharyngeal edema. Heterogeneous appearance of the thyroid gland. Inferior cerebellar tonsillar herniation better seen on the prior CT Renal Ultrasound revealed: IMPRESSION: 1. Right kidney not visible. 2. Left kidney is enlarged. 3. No hydronephrosis. Venous duplex of lower ext revealed: IMPRESSION: NO SONOGRAPHIC EVIDENCE FOR DEEP VENOUS THROMBOSIS IN THE RIGHT LOWER EXTREMITY VEINS. EEG reported: This is a remarkably abnormal EEG, this EEG seen in severe cerebral dysfunction due to metabolic/hypoxic encephalopathy or medication effects, unless this is caused by reversible etiology, this EEG is suggestive of a poor prognosis for meaningful recovery, please correlate clinically. Arrival EKG revealed sinus tachycardia with nonspecific ST-T changes Tele reveals sinus tachycardia Echocardiogram revealed: Technically limited study secondary to poor acoustic windows. Left ventricle: Left ventricle was normal-sized with normal systolic function. LVEF was 55-60%. No gross wall motion abnormality was seen. Right ventricle was mildly dilated with normal systolic function. Left atrium was normal-sized. Right atrium was mildly dilated. Aortic valve: Aortic valve was not well visualized. There was no aortic insufficiency/stenosis. There was no mitral regurgitation. There was trace tricuspid regurgitation. Pulmonary valve was not well visualized. IVC was not visualized. Right ventricular systolic pressure was assessed around 48 mm Hg. There was no pericardial effusion. Patient is a 24-year-old gentleman who presented with post arrest. It seems that the patient had hemorrhagic (intra-abdominal) presentation. Patient did have elective laparoscopic cholecystectomy the day before presentation. On the day of presentation, the patient was taken back to operating room and this time Laparotomy was done for hepatic hematoma. Patient does have multiorgan involvement. Clinically there is no brainstem reflexes. Shock liver/acute renal failure is considered. Troponin has been high. EKG did not reveal any STEMI. Presentation could be high troponin secondary to demand physiology. Patient does not have any risk factors for baseline coronary artery disease. In ideal scenario, ischemic workup/cardiac catheterization could be more revealing. Unfortunately, the patient does have acute renal failure which could be worsened by cardiac catheterization at this point. As there was no higher brain functions the suggestion is to wait and see if patient regains any higher brain function. It is of note that during cardiac catheterization, the patient may need some anticoagulation/antiplatelets. At this point patient is having significant anemia/bleeding and receiving blood transfusion and holding off of scenario forcing Anticoagulation/antiplatelets is advised. I had a long discussion with family members and Mother (repeatedly). Clinically patient has multiorgan failure. Secondary to active bleeding, we will avoid anticoagulation/antiplatelets for now. Being managed in ICU. Was taken to OR repeatedly. Still no reflexes. Echocardiogram revealed no WMA and also revealed good EF. It also revealed increased Pulmonary Artery Pressure in favor of component of Pulmonary Hypertension. Review of Echo images revealed good right ventricular systolic function. Not typical for Pulmonary Emboli. Still, PE cannot be ruled out. If PE is ruled out, then it is possible that patient had Pulmonary Hypertension from before (Baseline history of Asthma may actually reflect it). s/p PRBC transfusion (multiple). Being followed by Surgery, Nephrology, Hematology, Pulmonary, Neurology and GI. . Repeat imaging revealed cerebellar tonsillar herniation. Neurology diagnosed Hypoxic/Metabolic Encephalopathy also. EEG findings question meaningful recovery. Neurology declared patient: brain . Neurology second opinion was in favor of Anoxic/Hypoxic Encephalopathy. Repeat imaging of brain revealed worsening diffuse cerebral edema and also again revealed cerebellar tonsillar herniation. s/ p Arrest Intra-abdominal bleeding Hepatic hematoma Multiorgan failure, due to shock Shock liver Lactic Acidosis Acute renal failure Acute respiratory failure, on vent support Status post laparotomy Status post laparoscopic cholecystectomy Abnormal troponin, evaluated to reflect possible demand physiology History of gallstones History of asthma Obesity History of marijuana abuse Consumptive Coagulopathy / DIC Pulmonary Hypertension Cerebellar tonsillar Herniation. Encephalopathy, hypoxic/metabolic Renal failure, started on hemodialysis Brain scan questions brain Anoxic Encephalopathy Cardiac suggestion for management: Manage in ICU Follow-up electrolytes and kidney function tests and correct abnormalities Evaluation and management of respiratory failure as per Pulmonary Evaluation and management of Cerebellar tonsillar herniation and worsening cerebral edema as per Neurology/surgery/primary team V/Q scan could not be completed Anoxic/Hypoxic Encephalopathy Echocardiogram revealed no WMA and also revealed good EF. It also revealed increased Pulmonary Artery Pressure in favor of component of Pulmonary Hypertension. Hematology follow up (to comment on prophylaxis / treatment of Pulmonary Emboli) Surgical follow up Nephrology follow up (started on hemodialysis) and Hematology follow up Long-term prognosis depends on the above and most importantly regaining of the higher brain function: looks very grim Ischemic workup may be considered only after regaining higher brain function or any special change in clinical presentation Further evaluation and management depends on the above and clinical course A total of 75 minutes was spent reviewing the patient record, examining the patient, making a diagnostic and therapeutic plan, discussing this plan with medical personnel, following up on diagnostic studies and following the patient for clinical stability excluding any and all procedures. At least 50% of this time was spent in direct, [id number] contact. Thank you for allowing me to participate in this patient's care. Further recommendations will depend on patient's clinical course. Please do not hesitate to contact me if you have any questions or concerns. This medical document was created using electronic medical record system with [employer] dictation system. Although this document has been carefully reviewed, there may still be some phonetic and typographical errors. These areas are purely typographical due to the imperfection of the software programs, and do not reflect any compromise in the patient's medical care. Dietary Evaluation Review Recommendations by RD: PPN/TPN Comments: 1) Increase TPN rate to meet at least 75% of estimated daily needs 2) Advance to renal cardiac diet when medically feasible, pending ST approval 3) Follow-up with cardiology, pulmonology, nephrology, neurology, and gastroenterology 4) Continue to monitor I&O, labs, and skin integrity Expected Outcomes/Goals: 1) nutritional support to meet at least 75% of estimated daily needs 2) labs and wound to improve 3) diet to advance 4) gradual wt loss 5) f/u in 2-3 days Plan discussed with: Other (nurse) KATHLEEN COHEN MD Feb 12, 2025 07:47
[2025-02-12 07:50] LABS: Base Excess 2.7 mmol/L (-2.0-3.0)
[2025-02-12] MEDS: Nepro With Carb Steady 1 Liter Bottle NG SCH (09:15)
--- NOTE | 2025-02-12 16:09 | DVHPNRES ---
Progress Note Date Seen: Feb 12, 2025 Resident Creating Document: ARNOLD MUHAMMAD DALE Has the PT tested + for MRSA If YES, has PT been informed?: No Medical Necessity Reason Pt with a Central, PICC or Fol: Yes The following are medically ne: Central Line, Mora Catheter Reason for mora catheter: Nakul. Abd Surgery Subjective Review of Systems Patient seen and examined at the bedside. Patient is on mechanical ventilation, off from sedation. Objective vital signs Vital Sign Date Time Temp Pulse Resp B/P (MAP) Pulse Ox O2 Delivery O2 Flow Rate FiO2 02/12/25 15:57 75 14 99/53 (68) 97 30 02/12/25 14:10 Mechanical Ventilator+ 02/12/25 12:30 97.2 97.2 Total Intake and Output 02/11/25 02/11/25 02/12/25 15:00 23:00 07:00 Intake Total 440.502 ml 490.814 ml 1840 ml Output Total 1000 ml 480 ml 510 ml Balance -559.498 ml 10.814 ml 1330 ml medications Current Medications Medications Dose Ordered Sig/Serenity Route Start Time Stop Time Status Last Admin Dose Admin Midazolam HCl 50 ml @ 1 mls/hr Q24H IV 01/29/25 14:15 01/29/25 15:56 5 MLS/HR Phenylephrine HCl 250 ml @ 30 mls/hr Q8H20M IV 01/29/25 19:30 01/30/25 01:39 116.25 MLS/HR Levalbuterol HCl 0.625 mg Q4HR PRN NEB 01/29/25 20:00 02/12/25 09:49 0.625 MG Ipratropium [place] 0.5 mg Q4HPRN PRN NEB 01/29/25 20:00 02/10/25 06:08 0.5 MG Epinephrine HCl 250 ml @ 7.5 mls/hr Q24H IV 01/30/25 00:15 Vasopressin 20 units/Sodium Chloride 100 ml @ 9 mls/hr Q11H7M IV 01/30/25 07:30 02/03/25 13:09 9 MLS/HR Amino Acids 0 ml @ 0 mls/hr PER PHARMACY IV 02/01/25 11:15 Diagnostic Test (Pha) 1 strip Q6HR 02/01/25 18:00 02/12/25 12:20 1 STRIP Insulin Human Regular FOLLOW SLIDING SCALE Q6HR HI 02/01/25 18:00 02/02/25 11:36 2 UNITS Dextrose 50 ml UD IV 02/01/25 12:30 Epoetin Gunnar-epbx 4,000 unit MWF@2100 HI 02/03/25 21:00 02/10/25 21:36 4,000 UNIT Piperacillin Sod/ Tazobactam Sod 100 ml @ 25 mls/hr Q8HR IV 02/03/25 14:00 02/12/25 13:46 25 MLS/HR Vancomycin HCl 0 ml @ 0 mls/hr UD IV 02/04/25 09:00 Sodium Chloride 10 ml QSHIFT@, IV 02/04/25 22:00 02/12/25 09:50 10 ML Neomycin/ Polymyxin/ Bacitracin 1 applic DAILY TOP 02/06/25 10:00 02/12/25 09:50 1 APPLIC Bumetanide 2 mg BIDD IV 02/06/25 18:00 02/12/25 06:12 2 MG Norepinephrine Bitartrate 250 ml @ 0.938 mls/ hr Q24H IV 02/07/25 11:30 02/11/25 12:02 0.938 MLS/HR Artificial Tears 1 drop Q4HP PRN EACHEYE 02/08/25 07:30 Pantoprazole Sodium 40 mg Q12HR IV 02/08/25 22:00 02/12/25 09:50 40 MG Fat Emulsion Intravenous 100 ml/Sodium Chloride 40 meq/ Multivitamins 10 ml/Amino Acids/ Dextrose 1,320 ml @ 55 mls/hr Q24H IV 02/11/25 22:00 02/12/25 21:59 02/11/25 22:29 55 MLS/HR Enteral Nutritional Formula 1,000 ml 20 NG 02/11/25 23:15 02/12/25 09:15 1,000 ML Fat Emulsion Intravenous 100 ml/Multivitamins 10 ml/Amino Acids/ Dextrose 1,410 ml @ 59 mls/hr [id number] IV 02/12/25 22:00 02/13/25 21:59 Examination General: RASS -5, afebrile, mucosae are moist Cardiovascular: Normal S1 and S2. No murmurs, gallops or rubs Respiratory: Mechanically assisted ventilation, equal bilateral airway entree. Clear lung sounds on auscultation Abdomen: Soft, nontender, no organomegaly, with surgical wound on abdomin MSK/skin: Mobilization of limbs cannot be evaluated. Skin is dry and warm. Neurological: Orientation cannot be assessed. Pupils are dilated and nonreactive to light, absent brainstem reflexes laboratory and microbiology Laboratory Tests 02/12/25 02:53 Test 02/12/25 02:53 Range/Units Serum Glucose 96 74-106 mg/dL Microbiology Date/Time Source Procedure Growth Status 02/09/25 03:40 Blood Blood Culture - Preliminary NO GROWTH AFTER 72 HOURS OF INCUBATION. Resulted 02/02/25 22:00 Urine - [place] Urine Culture - Final Complete 01/30/25 00:00 Nose MRSA Screen - Final Complete 01/29/25 10:43 Sputum Gram Stain - Final Complete 01/29/25 10:43 Sputum Respiratory Culture - Final Complete Labs and/or images reviewed: Labs reviewed by me, Image(s) reviewed by me Problem List/Assessment/Plan Problem List/Assessment/Plan This is a 24-year-old male with no significant past medical history underwent elective laparoscopic cholecystectomy on 01/28 at [facility] (due to cholelithiasis), on 2nd day postop at home became lethargic and subsequently coded. ROSC was achieved with CPR, abdominal CT scan showed intra-abdominal hematoma, underwent emergent laparotomy and drained about 500-750 thrombosed and dark blood. NEURO: Hypoxic encephalopathy, due to cardiac arrest Possible anoxic brain injury * RASS Score -5 * Head CT from 01/30 shows, Cerebellar tonsilar herniation. There is sulcal and ventricular effacement. The basal cisterns are effaced. Loss of mario-white matter differentiation is noted. * BRNNM-brain imaging, shows absence blood flow, findings suggest brain in the appropriate clinical setting * Family discussion CARDIOVASCULAR: NSTEMI possible type 2 Status post cardiac arrest Distributive shock (vasoplegia)/neurogenic shock/septic shock vasopressin * Cardiology on the board, recommended medical management * Echo from 01/30 shows,Technically limited study secondary to poor acoustic windows, normal LV size and function, 55-60% PULMONARY: Acute hypoxic respiratory failure, likely due to anoxic brain injury Cxr showed bilateral mild pulmonary vascular congestion GASTROINTESTINAL: Acute transaminitis secondary to hypovolemic shock Coagulopathy Hypoalbuminemia Status post laparoscopic cholecystectomy Status post exploratory laparotomy for hemoperitoneum GENITOURINARY: HARLEEN secondary to hypovolemic shock * Nephrology on the board, performed dialysis on 02/03 * IV Bumex drip METABOLIC: Severe anion gap metabolic acidosis due to lactic acidosis Hypernatremia Grade 2 obesity, BMI 35.7 kg per m2 Hypoglycemia HEME: Severe anemia, due to bleeding * Received 3 units of PRBC, 2 units of FFP and 1 unit of cryoprecipitate * Monitor H&H INFECTIOUS DISEASE: Leucocytosis Lactic acidosis * Urine culture, blood culture and respiratory culture shows no growth * On Zosyn and vancomycin DIET: TPN DVT prophylax: Hold GI prophylaxis: Protonix Code status: Full code LINES/DRAINS/ACCESS: ETT: Intubated on 01/29 IV access: Lt IJ placed on 01/29/25 left subclavian Drips: On Levophed Mora catheter: Placed on 01/29 DISPOSITION: ICU status Patient's status discussed with the patient's mother at the bedside. Critical care time spent more than 47 minutes, including patient care, chart review, and updating the family. Excluding any procedures. Case discussed with Dr. Troy Plan discussed with: Patient Dietary Evaluation Review Recommendations by RD: PPN/TPN Comments: 1) Increase TPN rate to meet at least 75% of estimated daily needs 2) Advance to renal cardiac diet when medically feasible, pending ST approval 3) Follow-up with cardiology, pulmonology, nephrology, neurology, and gastroenterology 4) Continue to monitor I&O, labs, and skin integrity Expected Outcomes/Goals: 1) nutritional support to meet at least 75% of estimated daily needs 2) labs and wound to improve 3) diet to advance 4) gradual wt loss 5) f/u in 2-3 days Date of Service: Feb 12, 2025 Billing Provider: JEFFREY TROY MD Common Visit Codes: 44460-[id number] CARE 30-74 MIN ARNOLD MUHAMMAD Feb 12, 2025 16:09 JEFFREY TROY MD Feb 13, 2025 11:09
--- NOTE | 2025-02-12 16:44 | DVHPN2 ---
Progress Note Date Seen: Feb 12, 2025 Has the PT tested + for MRSA If YES, has PT been informed?: No Medical Necessity Reason Pt with a Central, PICC or Fol: Yes The following are medically ne: Central Line, Mora Catheter Reason for mora catheter: Nakul. Abd Surgery Subjective Patient reports: Other (mom bedside) Review of Systems: Deferred Objective vital signs Vital Sign Date Time Temp Pulse Resp B/P (MAP) Pulse Ox O2 Delivery O2 Flow Rate FiO2 02/12/25 15:57 75 14 99/53 (68) 97 30 02/12/25 14:10 Mechanical Ventilator+ 02/12/25 12:30 97.2 97.2 Total Intake and Output 02/11/25 02/11/25 02/12/25 15:00 23:00 07:00 Intake Total 440.502 ml 490.814 ml 1840 ml Output Total 1000 ml 480 ml 510 ml Balance -559.498 ml 10.814 ml 1330 ml medications Current Medications Medications Dose Ordered Sig/Serenity Route Start Time Stop Time Status Last Admin Dose Admin Midazolam HCl 50 ml @ 1 mls/hr Q24H IV 01/29/25 14:15 01/29/25 15:56 5 MLS/HR Phenylephrine HCl 250 ml @ 30 mls/hr Q8H20M IV 01/29/25 19:30 01/30/25 01:39 116.25 MLS/HR Levalbuterol HCl 0.625 mg Q4HR PRN NEB 01/29/25 20:00 02/12/25 09:49 0.625 MG Ipratropium [place] 0.5 mg Q4HPRN PRN NEB 01/29/25 20:00 02/10/25 06:08 0.5 MG Epinephrine HCl 250 ml @ 7.5 mls/hr Q24H IV 01/30/25 00:15 Vasopressin 20 units/Sodium Chloride 100 ml @ 9 mls/hr Q11H7M IV 01/30/25 07:30 02/03/25 13:09 9 MLS/HR Amino Acids 0 ml @ 0 mls/hr PER PHARMACY IV 02/01/25 11:15 Diagnostic Test (Pha) 1 strip Q6HR 02/01/25 18:00 02/12/25 12:20 1 STRIP Insulin Human Regular FOLLOW SLIDING SCALE Q6HR SC 02/01/25 18:00 02/02/25 11:36 2 UNITS Dextrose 50 ml UD IV 02/01/25 12:30 Epoetin Gunnar-epbx 4,000 unit MWF@2100 ME 02/03/25 21:00 02/10/25 21:36 4,000 UNIT Piperacillin Sod/ Tazobactam Sod 100 ml @ 25 mls/hr Q8HR IV 02/03/25 14:00 02/12/25 13:46 25 MLS/HR Vancomycin HCl 0 ml @ 0 mls/hr UD IV 02/04/25 09:00 Sodium Chloride 10 ml QSHIFT@,22 IV 02/04/25 22:00 02/12/25 09:50 10 ML Neomycin/ Polymyxin/ Bacitracin 1 applic DAILY TOP 02/06/25 10:00 02/12/25 09:50 1 APPLIC Bumetanide 2 mg BIDD IV 02/06/25 18:00 02/12/25 06:12 2 MG Norepinephrine Bitartrate 250 ml @ 0.938 mls/ hr Q24H IV 02/07/25 11:30 02/11/25 12:02 0.938 MLS/HR Artificial Tears 1 drop Q4HP PRN EACHEYE 02/08/25 07:30 Pantoprazole Sodium 40 mg Q12HR IV 02/08/25 22:00 02/12/25 09:50 40 MG Fat Emulsion Intravenous 100 ml/Sodium Chloride 40 meq/ Multivitamins 10 ml/Amino Acids/ Dextrose 1,320 ml @ 55 mls/hr Q24H IV 02/11/25 22:00 02/12/25 21:59 02/11/25 22:29 55 MLS/HR Enteral Nutritional Formula 1,000 ml 20 NG 02/11/25 23:15 02/12/25 09:15 1,000 ML Fat Emulsion Intravenous 100 ml/Multivitamins 10 ml/Amino Acids/ Dextrose 1,410 ml @ 59 mls/hr [id number] IV 02/12/25 22:00 02/13/25 21:59 Examination: GENERAL:Abnormal, HEENT:Abnormal, LUNGS:Abnormal, MSK:Abnormal, NEURO:Abnormal laboratory and microbiology Laboratory Tests 02/12/25 02:53 Test 02/12/25 02:53 Range/Units Serum Glucose 96 74-106 mg/dL Microbiology Date/Time Source Procedure Growth Status 02/09/25 03:40 Blood Blood Culture - Preliminary NO GROWTH AFTER 72 HOURS OF INCUBATION. Resulted 02/02/25 22:00 Urine - [place] Urine Culture - Final Complete 01/30/25 00:00 Nose MRSA Screen - Final Complete 01/29/25 10:43 Sputum Gram Stain - Final Complete 01/29/25 10:43 Sputum Respiratory Culture - Final Complete Problem List/Assessment/Plan Problem List/Assessment/Plan Acute kidney injury likely ischemic ATN in the setting of shock, FeNa > 2%, nonoliguric Acute respiratory failure, intubated on ventilator Status post cardiac arrest Anoxic encephalopathy//brain herniation Hyperkalemia secondary to above Metabolic acidosis anion gap secondary to lactic acidosis secondary to reduced perfusion from hemorrhage Hemodynamic shock from bleeding Acute blood loss anemia/post op Status post laparoscopic cholecystectomy on 01/28/[address] [facility] Status post ex lap, 01/29 Positive troponins NSTEMI--likely demand ischemia Shock liver Hypokalemia Recommendations Hemodialysis We will follow closely Plan discussed with: Other Dietary Evaluation Review Recommendations by RD: PPN/TPN Comments: 1) Increase TPN rate to meet at least 75% of estimated daily needs 2) Advance to renal cardiac diet when medically feasible, pending ST approval 3) Follow-up with cardiology, pulmonology, nephrology, neurology, and gastroenterology 4) Continue to monitor I&O, labs, and skin integrity Expected Outcomes/Goals: 1) nutritional support to meet at least 75% of estimated daily needs 2) labs and wound to improve 3) diet to advance 4) gradual wt loss 5) f/u in 2-3 days SILVIA NOONAN MD Feb 12, 2025 16:44
--- NOTE | 2025-02-12 18:52 | DVHPN2 ---
Progress Note Date Seen: Feb 12, 2025 Has the PT tested + for MRSA If YES, has PT been informed?: No Medical Necessity Reason Pt with a Central, PICC or Fol: Yes The following are medically ne: Central Line, Mora Catheter Reason for mora catheter: Nakul. Abd Surgery Subjective Review of Systems Pt and brother at the bedside. No changes other than intolerance to TF. High RV. Pt's mother inquiring about services provided by insurance as he want him to go home. She also inquired whether there will be a physician overseeing his care at home and could make home visits. She was made aware that she would have to ask the insurance. However, I could assist in the event something is needed at home. At this time It remains uncertain if he can be discharged home as it depends on multiple factors (ventilator, dialysis, medications, nursing care, etc). Will address with Ivana TURNER. Objective vital signs Vital Sign Date Time Temp Pulse Resp B/P (MAP) Pulse Ox O2 Delivery O2 Flow Rate FiO2 02/12/25 18:30 72 14 98/52 (67) 99 30 02/12/25 14:10 Mechanical Ventilator+ 02/12/25 12:30 97.2 97.2 Total Intake and Output 02/11/25 02/11/25 02/12/25 15:00 23:00 07:00 Intake Total 440.502 ml 490.814 ml 1840 ml Output Total 1000 ml 480 ml 510 ml Balance -559.498 ml 10.814 ml 1330 ml medications Current Medications Medications Dose Ordered Sig/Serenity Route Start Time Stop Time Status Last Admin Dose Admin Midazolam HCl 50 ml @ 1 mls/hr Q24H IV 01/29/25 14:15 01/29/25 15:56 5 MLS/HR Phenylephrine HCl 250 ml @ 30 mls/hr Q8H20M IV 01/29/25 19:30 01/30/25 01:39 116.25 MLS/HR Levalbuterol HCl 0.625 mg Q4HR PRN NEB 01/29/25 20:00 02/12/25 09:49 0.625 MG Ipratropium [place] 0.5 mg Q4HPRN PRN NEB 01/29/25 20:00 02/10/25 06:08 0.5 MG Epinephrine HCl 250 ml @ 7.5 mls/hr Q24H IV 01/30/25 00:15 Vasopressin 20 units/Sodium Chloride 100 ml @ 9 mls/hr Q11H7M IV 01/30/25 07:30 02/03/25 13:09 9 MLS/HR Amino Acids 0 ml @ 0 mls/hr PER PHARMACY IV 02/01/25 11:15 Diagnostic Test (Pha) 1 strip Q6HR 02/01/25 18:00 02/12/25 18:19 1 STRIP Insulin Human Regular FOLLOW SLIDING SCALE Q6HR SC 02/01/25 18:00 02/02/25 11:36 2 UNITS Dextrose 50 ml UD IV 02/01/25 12:30 Epoetin Gunnar-epbx 4,000 unit MWF@2100 OR 02/03/25 21:00 02/10/25 21:36 4,000 UNIT Piperacillin Sod/ Tazobactam Sod 100 ml @ 25 mls/hr Q8HR IV 02/03/25 14:00 02/12/25 13:46 25 MLS/HR Vancomycin HCl 0 ml @ 0 mls/hr UD IV 02/04/25 09:00 Sodium Chloride 10 ml QSHIFT@10,22 IV 02/04/25 22:00 02/12/25 09:50 10 ML Neomycin/ Polymyxin/ Bacitracin 1 applic DAILY TOP 02/06/25 10:00 02/12/25 09:50 1 APPLIC Bumetanide 2 mg BIDD IV 02/06/25 18:00 02/12/25 06:12 2 MG Norepinephrine Bitartrate 250 ml @ 0.938 mls/ hr Q24H IV 02/07/25 11:30 02/11/25 12:02 0.938 MLS/HR Artificial Tears 1 drop Q4HP PRN EACHEYE 02/08/25 07:30 Pantoprazole Sodium 40 mg Q12HR IV 02/08/25 22:00 02/12/25 09:50 40 MG Fat Emulsion Intravenous 100 ml/Sodium Chloride 40 meq/ Multivitamins 10 ml/Amino Acids/ Dextrose 1,320 ml @ 55 mls/hr Q24H IV 02/11/25 22:00 02/12/25 21:59 02/11/25 22:29 55 MLS/HR Enteral Nutritional Formula 1,000 ml 20 NG 02/11/25 23:15 10/1/25 09:15 1,000 ML Fat Emulsion Intravenous 100 ml/Multivitamins 10 ml/Amino Acids/ Dextrose 1,410 ml @ 59 mls/hr [id number] IV 02/12/25 22:00 02/13/25 21:59 Examination Neuro. Unchanged. Dilated fixed pupils. No reflexes. CV. Hr 70s. Hemodynamically stable. LSCV and right PICC catheter exit sites remain C/D/I. Pulmonary: Intubated with mechanical ventilator support 500/14/30%/+7. RR 14. ETT suction tubing clean. GI: Soft, obese, non distended and non tender. Incision and dressing C/D/I. OGT in place, no further sanguineous ouput. . Mora catheter in place. Clear yellow urine in collection bag Extremities; No edema Resolved facial and neck edema. Mild orbital edema laboratory and microbiology Laboratory Tests 02/12/25 02:53 Test 02/12/25 02:53 Range/Units Serum Glucose 96 74-106 mg/dL Microbiology Date/Time Source Procedure Growth Status 02/09/25 03:40 Blood Blood Culture - Preliminary NO GROWTH AFTER 72 HOURS OF INCUBATION. Resulted 02/02/25 22:00 Urine - [place] Urine Culture - Final Complete 01/30/25 00:00 Nose MRSA Screen - Final Complete 01/29/25 10:43 Sputum Gram Stain - Final Complete 01/29/25 10:43 Sputum Respiratory Culture - Final Complete Problem List/Assessment/Plan Problem List/Assessment/Plan Neuro: Appreciate neurology input and assistance. CT revealed cerebral edema and tonsillar herniation.EEG no electric activity. Cerebral perfusion study confirmed no perfusion radiographically consistent with brain which was concordant with initial clinical diagnosis and EEG. However, pt continues demonstrating brain stem function as he is breathing over vent set rate of 14. RR. There seems to be autonomic dysfunction. Pt's BP fluctuating and RR. 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 However, given breathing over vent set RR, he is demonstrating some neurological activity which voids previous brain assessment. [employer] help desk representative has been informed and process has been placed on hold. Pt family requested second neurology opinion. Dr. Meneses evaluated the patient. He then informed pt's Mother, brother present and sister (Angely, on telephone) about his findings being concordant with previous assessments. They are aware that the patient's prognosis is poor with regards to meaningful recovery, that he will likely remain in a comatose state. I was present during the examination and discussion. Angely and pt's mother are requested a neurosurgery consultation to address some questions. Unfortunately those services are not available in this institution. An attempt for transfer had been made was previously made by porter sample case and it was rejected by [facility] secondary to herniation had already occurred. However, porter sample case will find out if she can have a neurosurgery tele consult arranged with insurance-pending. With permission of pt's mother and sister, I spoke to cousin, Minda (BEATRIZ MCKEON form [place]). The case was discussed to the best of my abilities as I can't speak for the neuro aspect of his condition, other than the basic information that has already been disclosed to the family before. Pt's family state that he has been responding to verbal and physical stimuli. CT brain worsening cerebral edema and tonsillar herniation. Mother and brother informed last night. 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 Now requiring minimal vasopressor support. Cardiology assistance appreciated. Mechanical DVT prophylaxis. Unlikely PE (can't rule it out) but patient oxygenating well, no tachycardia. Pulmonary hypertension possibly unknowingly preexistent. Pulmonary: VDRF. Continue ventilator. Appreciate pulmonary medicine assistance. CXR ATX or PNA. No expectoration/phlegm upon suctioning. ABG today improved. Pulmonary medicine following. Second request for VQ scan denied as pt in on the ventilator and reportedly cannot be done because of that. Family aware. Pt's mother had previously stated she did not want the patient to remain on PVS (coma) as she didn't want to prolong his suffering. Mother and family still feel they have not exhausted all possibilities, in spite of multiple discussions about his meaningful recovery expectations and prognosis. They are leaning to proceed with tracheostomy and PEG and attemp to go home. GI: TF intolerance. Will attempt trickle feeding later. Continue TPN. Continue BID GI prophylaxis. Hepatic shock, stable. Appreciate GI assistance. Possible PEG/gastrostomy- pending final family decision. Mother and family continuing full care, in spite of multiple discussions about his prognosis. They still have strong nicko and beliefs he will recover. . ARF/ATN secondary to hemorrhagic shock. Uremia. Strict I&O. Stable u/o. Mora to gravity. Appreciate nephrology assistance. Replace/correct electrolytes. HD, Bumex and IVFs per nephrology. D/W with nephrology, pt will need permacath. Will request IR assistance. Heme/ID. Hemorrhagic shock resolved. Uremia, which may impact platelet function. No further sanguineous drainage from IV access, OGT or ETT suction tubing. Uremia can cause plt dysfunction. Hgb 8.5, likely from phlebotomy. No evidence of active bleeding. Thrombocytopenia has resolved. Minimizing blood draw frequency to avoid worsening anemia. Will reserve blood draws for daily and only if clinically indicated at any given moment. Repeat labs AM. Appreciate hematology assistance. Repeat Bld Cx done, Negative todate. Leukocytosis resolved. Staph epi bacteremia, sensitive to Vancomycin renal dose. Continue Zosyn and Vancomycin. Vancomycin adjustment by pharmacy. Endocrine: Tight glycemic control. Skin: Skin care and pressure ulcer precautions. Plan discussed with: Other (Mother and brother) My Orders My Orders Orders - JITENDRA ZAMORA MD Procedure Category Date Status Time Nutritional PHA 02/11/25 In Process Supplements (Nepro 23:15 Amino Acid PHA 02/12/25 In Process Infusion... W/Fat 22:00 Magnesium LAB 02/13/25 Verified 05:00 Phosphorus LAB 02/13/25 Verified 05:00 Tpn Per Pharmacy YANET 02/12/25 In Process 08:58 Comprehensive LAB 02/13/25 Verified Metabolic Panel 05:00 Vancomycin,Random LAB 02/13/25 Verified 04:00 Creatinine LAB 02/13/25 Verified 04:00 Dietary Evaluation Review Recommendations by RD: PPN/TPN Comments: 1) Increase TPN rate to meet at least 75% of estimated daily needs 2) Advance to renal cardiac diet when medically feasible, pending ST approval 3) Follow-up with cardiology, pulmonology, nephrology, neurology, and gastroenterology 4) Continue to monitor I&O, labs, and skin integrity Expected Outcomes/Goals: 1) nutritional support to meet at least 75% of estimated daily needs 2) labs and wound to improve 3) diet to advance 4) gradual wt loss 5) f/u in 2-3 days JITENDRA ZAMORA MD Feb 12, 2025 18:52
--- NOTE | 2025-02-12 21:02 | DVHPN2 ---
Subjective DOS: 02/12/2025 [facility] Patient seen and examined at bedside. Intubated on mechanical ventilator. Overnight events reviewed. HPI: A 24-year-old man with past medical history of asthma and gallstone pancreatitis who underwent laparoscopic cholecystectomy on 01/28/2025 in [facility]. Patient was discharged on same day; and as per medical records he developed nausea, vomiting and shortness of breath the night prior to presentation and woke up very weak; noted on AM of presentation with altered level of consciousness. Paramedics were called and patient was found to be in cardiac arrest. CPR was done, ROSC obtained; however patient had fixed and dilated pupils per ER documentation on arrival. CT abdomen/pelvis without contrast in ED revealed a hepatic hematoma measuring 8.6 cm with hemorrhage extending beyond the liver capsule into the right paracolic gutter as well as the pelvis. The patient was emergently taken back to surgery and underwent evacuation of a large hemoperitoneum,. was subsequently admitted to ICU. Pulmonary consultation is requested for evaluation and management of acute hypoxic respiratory failure requiring mechanical ventilator. Past Medical History: Asthma and gallstone pancreatitis Past Surgical History: Laparoscopic cholecystectomy on 01/28/2025 at [facility] Medications: Reviewed. Allergies: No known drug allergies. Family History: No family history of premature CAD. No family history of lung disorders. Social History: Nonsmoker. No alcohol or illicit drug use. Changes from previous H/P or p: No Changes Objective Vitals Vital Signs Date Time Temp Pulse Resp B/P (MAP) Pulse Ox O2 Delivery O2 Flow Rate FiO2 02/12/25 20:00 74 14 95/48 (64) 99 30 02/12/25 18:15 Mechanical Ventilator+ 02/12/25 16:15 96.6 96.6 Intake/Output Intake and Output 02/12/25 07:00 Intake Total 2771.316 ml Output Total 1990 ml Balance 781.316 ml IV Total 2771.316 ml Output Urine Total 985 ml Drainage Total 5 ml Other 1000 ml # Bowel Movements 2 Exam Gen.: Patient lying in bed in medical ICU. Intubated on mechanical ventilator. Head: Normocephalic, atraumatic. Eyes: Pupils fixed and blown Ears: Normal external anatomy. Throat: Endotracheal tube and orogastric tube in place. Neck: Supple, trachea midline. Chest: Transmitted breath sounds bilaterally. Decreased air entry bilaterally. No wheezing. Bibasilar crackles. Cardiovascular: Positive S1, positive S2. Regular rate and rhythm. Abdomen: Positive bowel sounds in all 4 quadrants. Soft, nontender, nondistended. : Green in place. Normal external genitalia. Rectal: Deferred. Skin: Warm, dry. Intact. Extremities: 2+ radial pulses bilaterally. No lower extremity edema. Neuro: No responses to painful stimuli. Medications Current Medications Medications Dose Ordered Sig/Serenity Route Start Time Stop Time Status Last Admin Dose Admin Midazolam HCl 50 ml @ 1 mls/hr Q24H IV 01/29/25 14:15 01/29/25 15:56 5 MLS/HR Phenylephrine HCl 250 ml @ 30 mls/hr Q8H20M IV 01/29/25 19:30 01/30/25 01:39 116.25 MLS/HR Levalbuterol HCl 0.625 mg Q4HR PRN NEB 01/29/25 20:00 02/12/25 09:49 0.625 MG Ipratropium [place] 0.5 mg Q4HPRN PRN [facility] 01/29/25 20:00 02/10/25 06:08 0.5 MG Epinephrine HCl 250 ml @ 7.5 mls/hr Q24H IV 01/30/25 00:15 Vasopressin 20 units/Sodium Chloride 100 ml @ 9 mls/hr Q11H7M IV 01/30/25 07:30 02/03/25 13:09 9 MLS/HR Amino Acids 0 ml @ 0 mls/hr PER PHARMACY IV 02/01/25 11:15 Diagnostic Test (Pha) 1 strip Q6HR 02/01/25 18:00 02/12/25 18:19 1 STRIP Insulin Human Regular FOLLOW SLIDING SCALE Q6HR CO 02/01/25 18:00 02/02/25 11:36 2 UNITS Dextrose 50 ml UD IV 02/01/25 12:30 Epoetin Gunnar-epbx 4,000 unit MWF@2100 CO 02/03/25 21:00 02/10/25 21:36 4,000 UNIT Piperacillin Sod/ Tazobactam Sod 100 ml @ 25 mls/hr Q8HR IV 02/03/25 14:00 02/12/25 13:46 25 MLS/HR Vancomycin HCl 0 ml @ 0 mls/hr UD IV 02/04/25 09:00 Sodium Chloride 10 ml QSHIFT@10,22 IV 02/04/25 22:00 02/12/25 09:50 10 ML Neomycin/ Polymyxin/ Bacitracin 1 applic DAILY TOP 02/06/25 10:00 02/12/25 09:50 1 APPLIC Bumetanide 2 mg BIDD IV 02/06/25 18:00 02/12/25 06:12 2 MG Norepinephrine Bitartrate 250 ml @ 0.938 mls/ hr Q24H IV 02/07/25 11:30 02/11/25 12:02 0.938 MLS/HR Artificial Tears 1 drop Q4HP PRN EACHEYE 02/08/25 07:30 Pantoprazole Sodium 40 mg Q12HR IV 02/08/25 22:00 02/12/25 09:50 40 MG Fat Emulsion Intravenous 100 ml/Sodium Chloride 40 meq/ Multivitamins 10 ml/Amino Acids/ Dextrose 1,320 ml @ 55 mls/hr Q24H IV 02/11/25 22:00 02/12/25 21:59 02/11/25 22:29 55 MLS/HR Enteral Nutritional Formula 1,000 ml 20 NG 02/11/25 23:15 02/12/25 09:15 1,000 ML Fat Emulsion Intravenous 100 ml/Multivitamins 10 ml/Amino Acids/ Dextrose 1,410 ml @ 59 mls/hr [id number] IV 02/12/25 22:00 02/13/25 21:59 Laboratory Results Laboratory Tests 02/12/25 02:53 Chemistry Test 02/12/25 02:53 Albumin 2.9 g/dL (3.2-4.8) L Calcium Level 9.0 mg/dL (8.7-10.4) Magnesium Level 2.2 mg/dL (1.6-2.6) Phosphorus Level 4.0 mg/dL (2.4-5.1) Total Protein 6.2 g/dL (5.7-8.2) LFT Test 02/12/25 02:53 Alanine Aminotransferase (ALT) 44 U/L (7-40) H Alkaline Phosphatase 573 U/L (46-116) H Aspartate Amino Transferase (AST) 186 U/L (13-40) H Total Bilirubin 2.8 mg/dL (0.2-1.0) H Urinalysis Test 01/29/25 09:54 01/29/25 14:15 Urine Color Light-orange (Yellow) Urine Clarity Turbid (Clear) H Urine pH 5.5 (5.0-9.0) Urine Specific [place] 1.017 (1.001-1.035) Urine Protein 2+ (Negative) H Urine Ketones Trace (Negative) Urine Blood 3+ /uL (Negative) H Urine Nitrite Negative (Negative) Urine Bilirubin Negative (Negative) Urine Urobilinogen Normal mg/dL (Negative) Urine Leukocyte Esterase Negative /uL (Negative) Urine RBC 130 /hpf (0 - 3) Urine Microscopic WBC < 1 /HPF (0-3) Urine Squamous Epithelial Cells Mod /hpf (<5) Urine Amorphous Crystals Few /hpf (None Seen) Urine Bacteria Few /hpf (None Seen) H Urine Glucose Trace mg/dL (Normal) Urine Creatinine 19.64 mg/dL (30.0-125.0) L Urine Sodium 98 mmol/L (40-220) Urine Total Protein 245.5 mg/dL (1-14) H Blood Gas Results Test 02/12/25 07:38 Arterial Blood pH 7.379 (7.350-7.450) FiO2 % 30.0 Microbiology Microbiology Date/Time Source Procedure Growth Status 02/09/25 03:40 Blood Blood Culture - Preliminary NO GROWTH AFTER 72 HOURS OF INCUBATION. Resulted 02/02/25 22:00 Urine - [place] Urine Culture - Final Complete 01/30/25 00:00 Nose MRSA Screen - Final Complete 01/29/25 10:43 Sputum Gram Stain - Final Complete 01/29/25 10:43 Sputum Respiratory Culture - Final Complete Assessment/Plan Assessment/Plan Impression: Acute hypoxic respiratory failure On mechanical ventilator Status post cardiac arrest Possible anoxic brain injury NSTEMI, possible type 2 Hypovolemic shock Acute kidney injury secondary to hypovolemic shock Obesity, BMI 30.4 Multiorgan failure Events: Remains on vent support AC mode with RR 14, VT 500, PEEP 7, FiO2 30% ABG reviewed, compensated. Pressors for hemodynamic support. Titrate to keep MAP above 65 mmHg/SBP above 90 mmHg. Of note, patient's blood pressure fluctuates; requiring Levophed at times. Not triggering vent Possible evolution of anoxic brain injury that is now affecting the brainstem completely. Head CT on 02/10/25 revealed worsening diffuse cerebral edema in the setting of anoxic brain injury in the given clinical setting. CXR today demonstrates bibasilar airspace disease which may reflect atelectasis and/or pneumonia. Possible small bilateral pleural effusions. Continue antibiotics - Zosyn. Monitor cultures Continue bronchodilators Continue Protonix for GI ppx TPN for nutritional support Continue Bumex drip for diuresis Follow up Nephrology recs Monitor renal function Monitor electrolytes. Supplement as necessary. Monitor ins and outs. Monitor hemoglobin Transfuse if less than 7.0 g/dL Absent brainstem reflexes Signs of anoxic brain injury Second opinion Neurology consult recs appreciated. No cough or gag. Respiratory drive persists. Patient noted to be overbreathing the vent Patient with pupils fixed and blown NM brain perfusion study c/w anoxic brain injury Poor chance of meaningful recovery Neurology recommendations appreciated Family deciding on goals of care. Plan for possible trach/PEG. Overall poor prognosis with multiorgan dysfunction, poor chance of meaningful recovery Labs and imaging reviewed. Rest of plan as noted below. Plan: s/p intubation on mechanical ventilator On assist control with respiratory rate of 14, tidal volume 500, PEEP of 7, FiO2 of 30% Titrate FIO2 to keep O2 saturation above 92%. VAP bundle Daily ABG and CXR while intubated. Pressors as necessary for hemodynamic support. Titrate to keep MAP above 65 mmHg/SBP above 90 mmHg. Continue antibiotics. F/u cultures. Repeat blood cultures, no growth x72 hours Sputum culture grew normal oropharyngeal slava. Monitor hemoglobin Monitor renal function due to acute kidney injury. Monitor electrolytes. Supplement as necessary. Continue diuresis per Nephrology Monitor ins and outs Hemodialysis per nephrology Nutritional support. Accu-Cheks, ISS. GI/DVT prophylaxis. Overall poor prognosis w/ poor chance of meaningful recovery Condition: Critical Prognosis: Poor given multiple comorbidities. Rest of plan per hospitalist and other consultants. A total of 35 minutes of critical care time was spent reviewing the patient record, examining the patient, making a diagnostic and therapeutic plan, discussing this plan with the medical personnel, following up on diagnostic studies and following the patient for clinical stability excluding any and all procedures. At least 50% of this time was spent in direct, [id number] contact. Thank you for allowing me to participate in this patient's care. Further recommendations will depend on patient's clinical course. Please do not hesitate to contact me if you have any questions or concerns. This medical document was created using an electronic medical record system with [employer] dictation system. Although this document has been carefully reviewed, there may still be some phonetic and typographical errors. These areas are purely typographical due to imperfections of the software programs, and do not reflect any compromise in the patient's medical care. Plan discussed with: Other (MARY ANN Ospina) Visit Coding Pulmonary Billing Provider: NEHEMIAS BEASLEY MD Date of Service if different f: Feb 12, 2025 Common Visit Codes: [id number] INP/OBS CARE(HIGH), 30987-[id number] CARE 30-74 MIN NEHEMIAS BEASLEY MD Feb 12, 2025 21:02
[2025-02-12] MEDS: TPN PER PHARMACY IV NR (23:34)
[2025-02-13] VITALS (71 sets, daily range): BP systolic 91–118; BP diastolic 40–66; PULSE 77–94; RESP 14–99; TEMP 98.2–99; O2SAT 96–100
[2025-02-13 03:46] LABS: Hematocrit 26.4 % (41.0-53.0); Hemoglobin 8.8 g/dL (13.5-17.5); Mean Corpuscular Hemoglobin 29.8 pg (28.0-32.0); Mean Corpuscular Volume 89.0 fL (80.0-100.0); Nucleated Red Blood Cells % 0.3 %
[2025-02-13 04:09] LABS: Anion Gap 13 (5-15); BUN/Creatinine Ratio 9.5 (10.0-20.0); Calcium 9.4 mg/dL (8.7-10.4); Carbon Dioxide 28 mmol/L (20-31); Chloride 99 mmol/L (98-107); Glucose 99 mg/dL (74-106); Magnesium 2.2 mg/dL (1.6-2.6); Potassium 3.8 mmol/L (3.5-5.1); Sodium 140 mmol/L (136-145); Total Protein 6.5 g/dL (5.7-8.2)
[2025-02-13 04:21] LABS: Alanine Aminotransferase 45 U/L (7-40); Albumin 3.0 g/dL (3.2-4.8); Alkaline Phosphatase 573 U/L (46-116); Bilirubin, Total 2.9 mg/dL (0.2-1.0); Blood Urea Nitrogen 72 mg/dL (9-23)
--- NOTE | 2025-02-13 05:37 | DVH ---
CHEST RADIOGRAPH Indication: VDRF Technique: Single frontal view of the chest was obtained COMPARISON: XY CHEST PORTABLE on DOS: 02/12/25, XY CHEST PORTABLE on DOS: 02/11/25, XY CHEST PORTABLE o n DOS: 02/10/25, XY CHEST PORTABLE on DOS: 02/10/25, XY CHEST PORTABLE on DOS: 02/09/25 FINDINGS: Lines and Tubes: Unchanged. Lungs: Diminished lung volumes with persistent concomitant exaggeration of the pulmonary vasculature. Pleura: No effusion. No pneumothorax. Cardiomediastinal contours: Unremarkable Bones: Unremarkable IMPRESSION: 1. Lines and tubes unchanged. 2. Persistently diminished lung volumes with concomitant exaggeration of the pulmonary vasculature. No evidence of acute cardiopulmonary process.
--- NOTE | 2025-02-13 06:19 | DVHPN2 ---
Progress Note Date Seen: Feb 13, 2025 Has the PT tested + for MRSA If YES, has PT been informed?: No Medical Necessity Reason Pt with a Central, PICC or Fol: Yes The following are medically ne: Central Line, Omra Catheter Reason for mora catheter: Nakul. Abd Surgery Subjective Review of Systems Pt seen early this morning. Per RN continues having episodes of labile BP, SBP 80s then corrects to 100s. Has not needed vasopressor support. Continues with adequate u/o. No bleeding from IV sites, ETT or OGT. OGT has been clamped.scant output. Had another BM. Objective vital signs Vital Sign Date Time Temp Pulse Resp B/P (MAP) Pulse Ox O2 Delivery O2 Flow Rate FiO2 02/13/25 04:07 89 14 97/43 (61) 97 30 02/13/25 00:00 Mechanical Ventilator+ 02/12/25 23:45 97.7 97.7 Total Intake and Output 02/12/25 02/12/25 02/13/25 15:00 23:00 07:00 Intake Total 540 ml 165 ml Output Total 500 ml Balance 540 ml -335 ml medications Current Medications Medications Dose Ordered Sig/Serenity Route Start Time Stop Time Status Last Admin Dose Admin Midazolam HCl 50 ml @ 1 mls/hr Q24H IV 01/29/25 14:15 01/29/25 15:56 5 MLS/HR Phenylephrine HCl 250 ml @ 30 mls/hr Q8H20M IV 01/29/25 19:30 01/30/25 01:39 116.25 MLS/HR Levalbuterol HCl 0.625 mg Q4HR PRN NEB 01/29/25 20:00 02/12/25 09:49 0.625 MG Ipratropium [place] 0.5 mg Q4HPRN PRN NEB 01/29/25 20:00 02/10/25 06:08 0.5 MG Epinephrine HCl 250 ml @ 7.5 mls/hr Q24H IV 01/30/25 00:15 Vasopressin 20 units/Sodium Chloride 100 ml @ 9 mls/hr Q11H7M IV 01/30/25 07:30 02/03/25 13:09 9 MLS/HR Amino Acids 0 ml @ 0 mls/hr PER PHARMACY IV 02/01/25 11:15 Diagnostic Test (Pha) 1 strip Q6HR 02/01/25 18:00 02/12/25 23:43 1 STRIP Insulin Human Regular FOLLOW SLIDING SCALE Q6HR SC 02/01/25 18:00 02/02/25 11:36 2 UNITS Dextrose 50 ml UD IV 02/01/25 12:30 Epoetin Gunnar-epbx 4,000 unit MWF@2100 [place] 02/03/25 21:00 02/12/25 23:44 4,000 UNIT Piperacillin Sod/ Tazobactam Sod 100 ml @ 25 mls/hr Q8HR IV 02/03/25 14:00 02/12/25 23:42 25 MLS/HR Vancomycin HCl 0 ml @ 0 mls/hr UD IV 02/04/25 09:00 Sodium Chloride 10 ml QSHIFT@,22 IV 02/04/25 22:00 02/12/25 23:43 10 ML Neomycin/ Polymyxin/ Bacitracin 1 applic DAILY TOP 02/06/25 10:00 02/12/25 09:50 1 APPLIC Bumetanide 2 mg BIDD IV 02/06/25 18:00 02/12/25 06:12 2 MG Norepinephrine Bitartrate 250 ml @ 0.938 mls/ hr Q24H IV 02/07/25 11:30 02/11/25 12:02 0.938 MLS/HR Artificial Tears 1 drop Q4HP PRN EACHEYE 02/08/25 07:30 Pantoprazole Sodium 40 mg Q12HR IV 02/08/25 22:00 02/12/25 23:43 40 MG Enteral Nutritional Formula 1,000 ml 20 NG 02/11/25 23:15 02/12/25 09:15 1,000 ML Fat Emulsion Intravenous 100 ml/Multivitamins 10 ml/Amino Acids/ Dextrose 1,410 ml @ 59 mls/hr [id number] IV 02/12/25 22:00 02/13/25 21:59 02/12/25 23:34 59 MLS/HR Examination Neuro. Unchanged. Dilated fixed pupils. No reflexes. CV. Hr 70s. Hemodynamically stable. LSCV and right PICC catheter exit sites remain C/D/I. Pulmonary: Intubated with mechanical ventilator support 500/14/30%/+7. RR 14. ETT suction tubing clean. GI: Soft, obese, non distended and non tender. Incision and dressing C/D/I. OGT clamped, no further sanguineous ouput. . Mora catheter in place. Clear yellow urine in collection bag Extremities; No edema Resolved facial and neck edema. Mild orbital edema laboratory and microbiology Laboratory Tests 02/13/25 02:52 Test 02/13/25 02:52 Range/Units Serum Glucose 99 74-106 mg/dL Microbiology Date/Time Source Procedure Growth Status 02/09/25 03:40 Blood Blood Culture - Preliminary NO GROWTH AFTER 72 HOURS OF INCUBATION. Resulted 02/02/25 22:00 Urine - [place] Urine Culture - Final Complete 01/30/25 00:00 Nose MRSA Screen - Final Complete 01/29/25 10:43 Sputum Gram Stain - Final Complete 01/29/25 10:43 Sputum Respiratory Culture - Final Complete Labs and/or images reviewed: Labs reviewed by me Problem List/Assessment/Plan Problem List/Assessment/Plan Neuro: Appreciate neurology input and assistance. CT revealed cerebral edema and tonsillar herniation.EEG no electric activity. Cerebral perfusion study confirmed no perfusion radiographically consistent with brain which was concordant with initial clinical diagnosis and EEG. However, pt continues demonstrating brainstem function as he is breathing over vent set rate of 14. RR. There seems to be autonomic dysfunction. Pt's BP fluctuating and RR. bus transportation manager will find out if she can have a neurosurgery tele consult arranged with insurance-pending. Pt's family state that he has been responding to verbal and physical stimuli. F/U (3rd) CT brain worsening cerebral edema and tonsillar herniation. Mother and brother informed. CV: Has been demonstrating episodes hypotension, likely autonomic deregulation secondary to brain injury. Cardiology assistance appreciated. Mechanical DVT prophylaxis. Unlikely PE (can't rule it out) but patient oxygenating well, no tachycardia. Pulmonary hypertension possibly unknowingly preexistent. Pulmonary: VDRF. Continue ventilator. Appreciate pulmonary medicine assistance. CXR PVC. No expectoration/phlegm upon suctioning. ABG pending. Pulmonary medicine following. Mother and family still feel they have not exhausted all possibilities, in spite of multiple discussions about his meaningful recovery expectations and prognosis. They are leaning to proceed with tracheostomy and PEG and attempt to go home. GI: TF at 10 mL.Measure residual volume every 6 hrs. Hold TF if >150 mL. Continue TPN. Continue BID GI prophylaxis. Hepatic shock, stable. Appreciate GI assistance. Possible PEG/gastrostomy. Mother and family continuing full care, in spite of multiple discussions about his prognosis. They still have strong nicko and beliefs he will recover. . ARF/ATN secondary to hemorrhagic shock. Uremia. Strict I&O. Stable u/o. Mora to gravity. Appreciate nephrology assistance. Replace/correct electrolytes. HD per nephrology. D/W with nephrology, pt will need permacath. Will request IR assistance. Heme/ID. Hemorrhagic shock resolved. Uremia, which may impact platelet function. No further sanguineous drainage from IV access, OGT or ETT suction tubing. Uremia can cause plt dysfunction. Hgb stable 8.8. No evidence of active bleeding. Minimizing blood draw frequency to avoid worsening anemia. Will reserve blood draws for daily and only if clinically indicated at any given moment. Repeat labs AM. Appreciate hematology assistance. Repeat Bld Cx done, Remain negative. Leukocytosis resolved. Staph epi bacteremia, sensitive to Vancomycin renal dose. Continue Zosyn and Vancomycin. Vancomycin adjustment by pharmacy. Endocrine: Tight glycemic control. Skin: Skin care and pressure ulcer precautions. Plan discussed with: Other (RN) My Orders My Orders Orders - JITENDRA ZAMORA MD Procedure Category Date Status Time Amino Acid PHA 02/12/25 In Process Infusion... W/Fat 22:00 Tpn Per Pharmacy YANET 02/12/25 In Process 08:58 Dietary Evaluation Review Recommendations by RD: PPN/TPN Comments: 1) Increase TPN rate to meet at least 75% of estimated daily needs 2) Advance to renal cardiac diet when medically feasible, pending ST approval 3) Follow-up with cardiology, pulmonology, nephrology, neurology, and gastroenterology 4) Continue to monitor I&O, labs, and skin integrity Expected Outcomes/Goals: 1) nutritional support to meet at least 75% of estimated daily needs 2) labs and wound to improve 3) diet to advance 4) gradual wt loss 5) f/u in 2-3 days JITENDRA ZAMORA MD Feb 13, 2025 06:19
--- NOTE | 2025-02-13 07:46 | DVHPN2 ---
Progress Note - Dictate Date Seen: Feb 13, 2025 Has the PT tested + for MRSA If YES, has PT been informed?: No Medical Necessity Reason Pt with a Central, PICC or Fol: Yes The following are medically ne: Central Line, Mora Catheter Reason for mora catheter: Nakul. Abd Surgery vital signs Vital Sign Date Time Temp Pulse Resp B/P (MAP) Pulse Ox O2 Delivery O2 Flow Rate FiO2 02/13/25 07:30 85 16 94/49 (64) 98 02/13/25 06:41 30 02/13/25 06:00 Mechanical Ventilator+ 02/13/25 05:00 98.6 98.6 Total Intake and Output 02/12/25 02/12/25 02/13/25 15:00 23:00 07:00 Intake Total 540 ml 165 ml 633 ml Output Total 500 ml 350 ml Balance 540 ml -335 ml 283 ml medications Current Medications Medications Dose Ordered Sig/Serenity Route Start Time Stop Time Status Last Admin Dose Admin Midazolam HCl 50 ml @ 1 mls/hr Q24H IV 01/29/25 14:15 01/29/25 15:56 5 MLS/HR Phenylephrine HCl 250 ml @ 30 mls/hr Q8H20M IV 01/29/25 19:30 01/30/25 01:39 116.25 MLS/HR Levalbuterol HCl 0.625 mg Q4HR PRN NEB 01/29/25 20:00 02/12/25 09:49 0.625 MG Ipratropium [place] 0.5 mg Q4HPRN PRN NEB 01/29/25 20:00 02/10/25 06:08 0.5 MG Epinephrine HCl 250 ml @ 7.5 mls/hr Q24H IV 01/30/25 00:15 Vasopressin 20 units/Sodium Chloride 100 ml @ 9 mls/hr Q11H7M IV 01/30/25 07:30 02/03/25 13:09 9 MLS/HR Amino Acids 0 ml @ 0 mls/hr PER PHARMACY IV 02/01/25 11:15 Diagnostic Test (Pha) 1 strip Q6HR 02/01/25 18:00 02/13/25 06:24 1 STRIP Insulin Human Regular FOLLOW SLIDING SCALE Q6HR SC 02/01/25 18:00 02/02/25 11:36 2 UNITS Dextrose 50 ml UD IV 02/01/25 12:30 Epoetin Gunnar-epbx 4,000 unit MWF@2100 SC 02/03/25 21:00 02/12/25 23:44 4,000 UNIT Piperacillin Sod/ Tazobactam Sod 100 ml @ 25 mls/hr Q8HR IV 02/03/25 14:00 02/13/25 06:15 25 MLS/HR Vancomycin HCl 0 ml @ 0 mls/hr UD IV 02/04/25 09:00 Sodium Chloride 10 ml QSHIFT@10,22 IV 02/04/25 22:00 02/12/25 23:43 10 ML Neomycin/ Polymyxin/ Bacitracin 1 applic DAILY TOP 02/06/25 10:00 02/12/25 09:50 1 APPLIC Bumetanide 2 mg BIDD IV 02/06/25 18:00 02/13/25 06:24 2 MG Norepinephrine Bitartrate 250 ml @ 0.938 mls/ hr Q24H IV 02/07/25 11:30 02/11/25 12:02 0.938 MLS/HR Artificial Tears 1 drop Q4HP PRN EACHEYE 02/08/25 07:30 Pantoprazole Sodium 40 mg Q12HR IV 02/08/25 22:00 02/12/25 23:43 40 MG Enteral Nutritional Formula 1,000 ml 20 NG 02/11/25 23:15 02/12/25 09:15 1,000 ML Fat Emulsion Intravenous 100 ml/Multivitamins 10 ml/Amino Acids/ Dextrose 1,410 ml @ 59 mls/hr [id number] IV 02/12/25 22:00 02/13/25 21:59 02/12/25 23:34 59 MLS/HR laboratory and microbiology Laboratory Tests 02/13/25 02:52 Test 02/13/25 02:52 Range/Units Serum Glucose 99 74-106 mg/dL Assessment/Plan Still in ICU. On vent support. Blood pressure stable. Off any pressure support. No gross higher brain reflexes. Pupils are dilated and fixed. Anoxic/Hypoxic Encephalopathy No reported arrhythmia overnight Echocardiogram revealed no WMA and also revealed good EF. It also revealed increased Pulmonary Artery Pressure in favor of component of Pulmonary Hypertension. s/p Hemodialysis Received blood and platelet transfusion repeatedly Patient is a 24-year-old gentleman who was originally brought to the hospital for post arrest. Patient is seen in postop area. Patient is intubated and on multiple pressor supports. Patient is not source of history. Information was obtained by reviewing the chart, talking to patient's family/mother and communicating with staff and reviewing outside records ([facility]). Patient did have elective outpatient laparoscopic cholecystectomy in [facility] on January 28 2025. As per mother, after going home, patient was feeling very hungry and was eating and drinking a lot. He started feeling abdominal pain with nausea at night and in the morning was short of breath. As per mother: patient has stopped breathing in the morning and family called 911. As per mother, as per guidance of 911, family started CPR until EMS arrived. Patient was intubated and was brought to the hospital by EMS. Since arrival to [facility], patient was seen by surgeon who took the patient to operating room and performed laparotomy (there was hepatic hematoma). Postoperatively, the patient has remained hypotensive. There is signs for multiorgan involvement. Patient was not alert and did not complain of any chest pains. Labs revealed increased troponin. Cardiology is involved for cardiac aspects of care and abnormal troponin. First available EKG reveals sinus tachycardia with no specific ST-T changes. Telemetry had revealed sinus tachycardia throughout the stay. Patient is found to have significant anemia and is receiving blood transfusion at the time of evaluation. It is of note that at the time of evaluation patient does not have any reflexes. Intubated. Mucosa pale. Dilated and fixed pupils, Scattered rhonchi in the lungs. Cardiac: Tachycardic. No murmur. Abdomen is covered by dressing. Extremities do not reveal any edema. Dorsalis pedis is 1+ bilateral. Patient does not respond to any stimuli. Reported past medical history includes asthma and obesity. Reportedly, on January 23, 2025: Patient presented to [facility] for abdominal pain/nausea/vomiting. At that point the problems were ongoing for few weeks. In [facility], CT of the abdomen and MRCP were performed. Patient was seen by GI/surgery. Patient was found to have gallstones. Patient was discharged and later on January 28, 2025 presented back to [facility] for elective laparoscopy cholecystectomy. Patient was discharged home from [facility] after laparoscopic cholecystectomy. As per mother, patient does not have baseline history of any cardiac history. As per mother, patient was using marijuana. Mother denies any previous substance abuse besides marijuana. No specific family history is reported On January 23, 2025, labs in [facility] revealed creatinine of 0.84, hemoglobin of 15.2 and troponin (high sensitive) of <3. At that point EKG was normal WBC: 20.1 - 19.0 - 22.7 - 20.6 - 28.4 - 20.3 - 21.0 - 25.2 - 29.8 - 29.5 - 29.0 - 26.2 - 21.7 - 19.7 - 17.7 - 15.3 - 12.2 - 10.5 - 11.2 - 13.0 - 10.7 - 9.0 - 9.0 Hemoglobin: 8.3 - 6.5 - 12.1 - 11.1 - 12.1 - 9.3 - 9.2 - 9.1 - 8.4 - 9.0 - 9.5 - 8.8 - 8.4 - 8.0 - 9.7 - 9.6 - 9.8 - 9.6 - 9.7 - 9.8 - 9.1 - 8.5 - 8.8 Fibrinogen: 108 - 316 - 537 - 689 - >860 Creatinine: 4.02 - 3.78 - 3.90 - 3.95 - 4.34 - 5.44 - 6.05 - 6.73 - 7.31 - 7.77 - 6.64 - 7.30 - 4.91 - 5.32 - 7.40 - 5.98 - 7.66 - 6.28 - 7.71 - 8.67 - 6.87 - 5.62 - 7.59 Potassium: 5.6 - 4.6 - 4.8 - 3.9 - 2.9 - 2.9 - 3.6 - 3.8 - 4.9 - 5.4 - 6.0 - 5.1 - 5.3 - 6.1 - 6.0 - 4.6 - 4.4 - 4.3 - 3.5 - 3.4 - 3.7 - 4.5 - 5.7 - 5.2 - 4.0 - 3.8 AST/ALT: 806/594 - 8060/2056 - 4636/2521 - -/1995 - 2500/1989 - 1780/1821 - 808/995 - 586/735 - 456/444 - 312/290 - 237/163 - 215/125 - 190/87 - 200/74 - 202/66 - 189/53 - 186/44 - 186/45 Lactic acid: 17.9 - 17.2 - 11.4 Troponin (high sensitive): 0237 - 4663 - 4225 - 2534 - 5371 TSH: 11.05 Urine Toxicology: positive for Fentanyl and Benzodiazepine Chest x-ray revealed: Lines and Tubes: Endotracheal tube projects 2.2 cm above the meghan. Right internal jugular central venous catheter tip projects over superior vena cava. Lungs: No focal consolidation. Low lung volumes. Pleura: No effusion. No pneumothorax. Cardiomediastinal contours: Unremarkable Bones: No acute osseous abnormality. IMPRESSION: Lines and tubes as above. Low lung volumes. Repeat chest x-ray revealed: IMPRESSION: Lines and tubes in satisfactory position. Mild increased pulmonary vascular congestion Repeat chest xry revealed: IMPRESSION: Lines and tubes in satisfactory position. Mild increased pulmonary vascular congestion Repeat chest xry revealed: IMPRESSION: 1. Low lung volumes with concomitant crowding of the pulmonary vasculature. 2. No evidence of focal consolidation. 3. Lines and tubes unchanged. Repeat chest xry revealed: IMPRESSION: 1. Slight interval retraction of the endotracheal tube such that the tip now projects approximately 4.7 cm above the level of the meghan. Remaining lines and tubes unchanged. 2. Otherwise no significant change compared to prior exam. Repeat chest xry revealed: IMPRESSION: 1. Slight interval advancement of endotracheal tube such that the tip now projects approximately 1.7 cm above the level of the meghan. Remaining lines and tubes unchanged. 2. Otherwise no significant change compared to prior exam. Repeat chest xry revealed: IMPRESSION: 1. Slight interval retraction of the endotracheal tube such that the tip now projects approximately 3.3 cm above the level of the meghan. Remaining lines and tubes unchanged. 2. No evidence of acute cardiopulmonary process. Repeat chest xry revealed: IMPRESSION: 1. Endotracheal tube in appropriate position. Remaining lines and tubes unchanged. 2. No evidence of acute cardiopulmonary process. Repeat chest xry revealed: IMPRESSION: 1. Small right pleural effusion. 2. Lines and tubes unchanged. Repeat chest xry revealed: IMPRESSION: 1. Small right pleural effusion. 2. Lines and tubes unchanged. Repeat chest xry revealed: IMPRESSION: 1. Small bilateral pleural effusions. 2. Lines and tubes unchanged. Repeat chest xry revealed: IMPRESSION: 1. Slight interval advancement of the endotracheal tube. Remaining lines and tubes unchanged. 2. No evidence of acute cardiopulmonary process. Repeat chest xry revealed: IMPRESSION: 1. Slight interval retraction of the endotracheal tube such that the tip now projects approximately 3.3 cm above the level of the meghan. Remaining lines and tubes unchanged. 2. No evidence of acute cardiopulmonary process. Repeat chest xry revealed: Bowel gas pattern is unremarkable. Enteric tube tip projects over the expected region of the stomach. The lung bases demonstrates bibasilar atelectasis. The lower pelvis is collimated from field of view. No acute osseous abnormality identified. Repeat chest xry revealed: Lines and Tubes: Endotracheal tube tip projects approximately 5.1 cm above the level of the meghan. Enteric catheter terminates within the gastric lumen. Right peripherally inserted central catheter tip and left subclavian central venous catheter tip project over the distal superior vena cava. Lungs: Clear Pleura: No effusion. No pneumothorax. Cardiomediastinal contours: Unremarkable Bones: Unremarkable IMPRESSION: 1. No radiographic evidence of acute cardiopulmonary abnormality. 2. Lines and tubes as above. Repeat chest xry revealed: IMPRESSION: 1. Stable position of the support lines and tubes. 2. Bibasilar airspace disease which may reflect atelectasis and/or pneumonia. Possible small bilateral pleural effusions. Repeat chest xry revealed: IMPRESSION: 1. Lines and tubes unchanged. 2. Persistently diminished lung volumes with concomitant exaggeration of the pulmonary vasculature. No evidence of acute cardiopulmonary process. Brain scan revealed: FINDINGS: Absence of cerebral blood flow is noted along with no brain parenchymal radiotracer uptake. Increased activity is seen in the central face likely representing vascular shunting consistent with the so-called "hot nose" sign. Findings suggest brain however clinical correlation is necessary. IMPRESSION: Findings described above, which would be consistent with brain in the appropriate clinical setting, however clinical correlation is needed. CT of the chest/abdomen/pelvis revealed: IMPRESSION: 1. Hepatic hematoma measuring up to approximately 8.6 cm in greatest dimension, as described above, with hemorrhage extending beyond the liver capsule and into the right pericolic gutter as well as into the pelvis. No definite active arterial bleeding is seen on this exam, although limited evaluation due to the timing of contrast, as this was not a CTA exam. 2. Postsurgical changes of cholecystectomy. 3. Dilated fluid-filled small bowel loops, may be due to postoperative ileus. No small bowel obstruction. 4. Small volume pneumoperitoneum, likely due to recent surgery. Small volume of gas are seen in the upper ventral abdomen from the recent surgery. 5. Dependent atelectasis in the lower lobes. Otherwise, no acute disease in the chest. 6. Endotracheal tube and enteric tube in place. 7. Atrophic right kidney incidentally noted. 8. Additional findings as described above. Critical findings Critical Result: Acute hepatic hematoma with hemorrhage extending beyond the liver capsule into the adjacent portions of the abdomen and into the pelvis as detailed above. Repeat CT of chest/abdomen/pelvis revealed: There is limited interpretation of the chest, abdomen and pelvis without administration of intravenous contrast. Endotracheal tube tip terminates just at the meghan / left main bronchus. Diffuse bilateral pulmonary airspace consolidation bilaterally significantly increased. Bilateral lower lobe lobar consolidation/ atelectasis, increased from prior. Small bilateral pleural effusions. There is extensive edema/ stranding within the upper anterior chest, neck region/supraclavicular region. There is some hyperdensity within this region which could represent components of hematoma / blood products. Heterogeneous appearance of the thyroid gland. Right IJ catheter terminating at the cavoatrial junction. Adrenal glands unremarkable in shape. Perisplenic hematoma. Interval postsurgical changes in the right upper quadrant of the abdomen. There appears to be surgicel/gaseous collection within the previous hematoma cavity, likely representing surgicel. There is a radiopaque density within the resection cavity as well which measures 6.2 x 4.6 cm.. Postoperative changes of the right anterior abdomen with soft tissue emphysema. Small amount of pneumoperitoneum Surgical drainage catheter terminating in the right upper quadrant of the abdomen Right renal parenchymal atrophy. Left kidney demonstrates perinephric edema / stranding. No left hydronephrosis. Nasogastric tube projects towards the distal stomach. Moderate distention small bowel loops. Rectal catheter. Moderate distention of the large bowel loops. Normal appendix. Abdominal aorta normal in caliber. Small amount of ascites fluid/ mesenteric edema. Bladder decompressed by Mora catheter. Soft tissue edema /anasarca. Mesenteric edema. Small amount of ascites fluid. The osseous structures are stable. IMPRESSION: Limited evaluation without contrast. Interval evacuation of the right upper quadrant hematoma. Surgicel within the resection cavity. No significant interval development of new hematoma. There are 2 radiopaque lap pads within the resection cavity . Findings reviewed with Dr. Ledesma at 11:51 a.m. on 01/30/2025 Perisplenic hematoma, similar to previous examination. Extensive bilateral pulmonary airspace consolidation, significantly increased from previous examination. Small bilateral pleural effusions. Right upper quadrant drainage catheter. Pneumoperitoneum. Soft tissue edema / anasarca. Small amount of ascites fluid/ mesenteric edema. Extensive edema within the anterior chest, neck region. Heterogeneous appearance thyroid gland. Other findings as described. CT of the head revealed: IMPRESSION: 1. No evidence of acute intracranial abnormality. Repeat CT of head revealed: FINDINGS: Cerebellar tonsilar herniation. There is sulcal and ventricular effacement. The basal cisterns are effaced. Loss of mario-white matter differentiation is noted. The skull and visible facial bones are intact. The paranasal sinuses, mastoid air cells and middle ear cavities are well-aerated. The soft tissues of the scalp are unremarkable. IMPRESSION: Diffuse cerebral edema with cerebellar tonsillar herniation. Recommend MRI brain for further evaluation. Repeat CT of head revealed: FINDINGS: There is diffuse low attenuation throughout the brain with increased effacement of the ventricles and complete sulcal effacement. There is cerebellar tonsillar herniation. The orbits are normal. There is moderate mucosal thickening within the paranasal sinuses and mastoid air cells. The soft tissues and osseous structures appear within normal limits. IMPRESSION: 1. Findings as above suggesting worsening diffuse cerebral edema in the setting of anoxic brain injury in the given clinical setting. Further clinical correlation is suggested. CT of Neck revealed: IMPRESSION: Limited evaluation without contrast. Extensive soft tissue edema within the neck extending into the anterior / upper chest and anterior mediastinum . Retropharyngeal edema. Heterogeneous appearance of the thyroid gland. Inferior cerebellar tonsillar herniation better seen on the prior CT Renal Ultrasound revealed: IMPRESSION: 1. Right kidney not visible. 2. Left kidney is enlarged. 3. No hydronephrosis. Venous duplex of lower ext revealed: IMPRESSION: NO SONOGRAPHIC EVIDENCE FOR DEEP VENOUS THROMBOSIS IN THE RIGHT LOWER EXTREMITY VEINS. EEG reported: This is a remarkably abnormal EEG, this EEG seen in severe cerebral dysfunction due to metabolic/hypoxic encephalopathy or medication effects, unless this is caused by reversible etiology, this EEG is suggestive of a poor prognosis for meaningful recovery, please correlate clinically. Arrival EKG revealed sinus tachycardia with nonspecific ST-T changes Tele reveals sinus tachycardia Echocardiogram revealed: Technically limited study secondary to poor acoustic windows. Left ventricle: Left ventricle was normal-sized with normal systolic function. LVEF was 55-60%. No gross wall motion abnormality was seen. Right ventricle was mildly dilated with normal systolic function. Left atrium was normal-sized. Right atrium was mildly dilated. Aortic valve: Aortic valve was not well visualized. There was no aortic insufficiency/stenosis. There was no mitral regurgitation. There was trace tricuspid regurgitation. Pulmonary valve was not well visualized. IVC was not visualized. Right ventricular systolic pressure was assessed around 48 mm Hg. There was no pericardial effusion. Patient is a 24-year-old gentleman who presented with post arrest. It seems that the patient had hemorrhagic (intra-abdominal) presentation. Patient did have elective laparoscopic cholecystectomy the day before presentation. On the day of presentation, the patient was taken back to operating room and this time Laparotomy was done for hepatic hematoma. Patient does have multiorgan involvement. Clinically there is no brainstem reflexes. Shock liver/acute renal failure is considered. Troponin has been high. EKG did not reveal any STEMI. Presentation could be high troponin secondary to demand physiology. Patient does not have any risk factors for baseline coronary artery disease. In ideal scenario, ischemic workup/cardiac catheterization could be more revealing. Unfortunately, the patient does have acute renal failure which could be worsened by cardiac catheterization at this point. As there was no higher brain functions the suggestion is to wait and see if patient regains any higher brain function. It is of note that during cardiac catheterization, the patient may need some anticoagulation/antiplatelets. At this point patient is having significant anemia/bleeding and receiving blood transfusion and holding off of scenario forcing Anticoagulation/antiplatelets is advised. I had a long discussion with family members and Mother (repeatedly). Clinically patient has multiorgan failure. Secondary to active bleeding, we will avoid anticoagulation/antiplatelets for now. Being managed in ICU. Was taken to OR repeatedly. Still no reflexes. Echocardiogram revealed no WMA and also revealed good EF. It also revealed increased Pulmonary Artery Pressure in favor of component of Pulmonary Hypertension. Review of Echo images revealed good right ventricular systolic function. Not typical for Pulmonary Emboli. Still, PE cannot be ruled out. If PE is ruled out, then it is possible that patient had Pulmonary Hypertension from before (Baseline history of Asthma may actually reflect it). s/p PRBC transfusion (multiple). Being followed by Surgery, Nephrology, Hematology, Pulmonary, Neurology and GI. . Repeat imaging revealed cerebellar tonsillar herniation. Neurology diagnosed Hypoxic/Metabolic Encephalopathy also. EEG findings question meaningful recovery. Neurology declared patient: brain . Neurology second opinion was in favor of Anoxic/Hypoxic Encephalopathy. Repeat imaging of brain revealed worsening diffuse cerebral edema and also again revealed cerebellar tonsillar herniation. s/ p Arrest Intra-abdominal bleeding Hepatic hematoma Multiorgan failure, due to shock Shock liver Lactic Acidosis Acute renal failure Acute respiratory failure, on vent support Status post laparotomy Status post laparoscopic cholecystectomy Abnormal troponin, evaluated to reflect possible demand physiology History of gallstones History of asthma Obesity History of marijuana abuse Consumptive Coagulopathy / DIC Pulmonary Hypertension Cerebellar tonsillar Herniation. Encephalopathy, hypoxic/metabolic Renal failure, started on hemodialysis Brain scan questions brain Anoxic Encephalopathy Cardiac suggestion for management: Manage in ICU Follow-up electrolytes and kidney function tests and correct abnormalities Evaluation and management of respiratory failure as per Pulmonary Evaluation and management of Cerebellar tonsillar herniation and worsening cerebral edema as per Neurology/surgery/primary team V/Q scan could not be completed Anoxic/Hypoxic Encephalopathy Echocardiogram revealed no WMA and also revealed good EF. It also revealed increased Pulmonary Artery Pressure in favor of component of Pulmonary Hypertension. Hematology follow up (to comment on prophylaxis / treatment of Pulmonary Emboli) Surgical follow up Nephrology follow up (started on hemodialysis) and Hematology follow up Long-term prognosis depends on the above and most importantly regaining of the higher brain function: looks very grim Ischemic workup may be considered only after regaining higher brain function or any special change in clinical presentation Further evaluation and management depends on the above and clinical course A total of 75 minutes was spent reviewing the patient record, examining the patient, making a diagnostic and therapeutic plan, discussing this plan with medical personnel, following up on diagnostic studies and following the patient for clinical stability excluding any and all procedures. At least 50% of this time was spent in direct, [id number] contact. Thank you for allowing me to participate in this patient's care. Further recommendations will depend on patient's clinical course. Please do not hesitate to contact me if you have any questions or concerns. This medical document was created using electronic medical record system with [employer] dictation system. Although this document has been carefully reviewed, there may still be some phonetic and typographical errors. These areas are purely typographical due to the imperfection of the software programs, and do not reflect any compromise in the patient's medical care. Dietary Evaluation Review Recommendations by RD: PPN/TPN Comments: 1) Increase TPN rate to meet at least 75% of estimated daily needs 2) Advance to renal cardiac diet when medically feasible, pending ST approval 3) Follow-up with cardiology, pulmonology, nephrology, neurology, and gastroenterology 4) Continue to monitor I&O, labs, and skin integrity Expected Outcomes/Goals: 1) nutritional support to meet at least 75% of estimated daily needs 2) labs and wound to improve 3) diet to advance 4) gradual wt loss 5) f/u in 2-3 days Plan discussed with: Other (nurse) KATHLEEN COHEN MD Feb 13, 2025 07:46
[2025-02-13 09:08] LABS: Base Excess 2.0 mmol/L (-2.0-3.0)
--- NOTE | 2025-02-13 10:31 | DVHPN2 ---
Progress Note Date Seen: Feb 13, 2025 Has the PT tested + for MRSA If YES, has PT been informed?: No Medical Necessity Reason Pt with a Central, PICC or Fol: Yes The following are medically ne: Central Line, Mora Catheter Reason for mora catheter: Nakul. Abd Surgery Subjective Patient reports: Other (Remains intubated) Review of Systems: Deferred Objective vital signs Vital Sign Date Time Temp Pulse Resp B/P (MAP) Pulse Ox O2 Delivery O2 Flow Rate FiO2 02/13/25 09:30 87 16 98/50 (66) 98 02/13/25 08:58 30 02/13/25 08:00 Mechanical Ventilator+ 02/13/25 08:00 98.8 98.8 Total Intake and Output 02/12/25 02/12/25 02/13/25 15:00 23:00 07:00 Intake Total 540 ml 165 ml 702 ml Output Total 500 ml 350 ml Balance 540 ml -335 ml 352 ml medications Current Medications Medications Dose Ordered Sig/Serenity Route Start Time Stop Time Status Last Admin Dose Admin Midazolam HCl 50 ml @ 1 mls/hr Q24H IV 01/29/25 14:15 01/29/25 15:56 5 MLS/HR Phenylephrine HCl 250 ml @ 30 mls/hr Q8H20M IV 01/29/25 19:30 01/30/25 01:39 116.25 MLS/HR Levalbuterol HCl 0.625 mg Q4HR PRN NEB 01/29/25 20:00 02/12/25 09:49 0.625 MG Ipratropium [place] 0.5 mg Q4HPRN PRN NEB 01/29/25 20:00 02/10/25 06:08 0.5 MG Epinephrine HCl 250 ml @ 7.5 mls/hr Q24H IV 01/30/25 00:15 Vasopressin 20 units/Sodium Chloride 100 ml @ 9 mls/hr Q11H7M IV 01/30/25 07:30 02/03/25 13:09 9 MLS/HR Amino Acids 0 ml @ 0 mls/hr PER PHARMACY IV 02/01/25 11:15 Diagnostic Test (Pha) 1 strip Q6HR 02/01/25 18:00 02/13/25 06:24 1 STRIP Insulin Human Regular FOLLOW SLIDING SCALE Q6HR SC 02/01/25 18:00 02/02/25 11:36 2 UNITS Dextrose 50 ml UD IV 02/01/25 12:30 Epoetin Gunnar-epbx 4,000 unit MWF@2100 SC 02/03/25 21:00 02/12/25 23:44 4,000 UNIT Piperacillin Sod/ Tazobactam Sod 100 ml @ 25 mls/hr Q8HR IV 02/03/25 14:00 02/13/25 06:15 25 MLS/HR Vancomycin HCl 0 ml @ 0 mls/hr UD IV 02/04/25 09:00 Sodium Chloride 10 ml QSHIFT@, IV 02/04/25 22:00 02/13/25 09:06 10 ML Neomycin/ Polymyxin/ Bacitracin 1 applic DAILY TOP 02/06/25 10:00 02/13/25 09:06 1 APPLIC Bumetanide 2 mg BIDD IV 02/06/25 18:00 02/13/25 06:24 2 MG Norepinephrine Bitartrate 250 ml @ 0.938 mls/ hr Q24H IV 02/07/25 11:30 02/11/25 12:02 0.938 MLS/HR Artificial Tears 1 drop Q4HP PRN EACHEYE 02/08/25 07:30 Pantoprazole Sodium 40 mg Q12HR IV 02/08/25 22:00 02/13/25 09:06 40 MG Enteral Nutritional Formula 1,000 ml 20 NG 02/11/25 23:15 02/12/25 09:15 1,000 ML Fat Emulsion Intravenous 100 ml/Multivitamins 10 ml/Amino Acids/ Dextrose 1,410 ml @ 59 mls/hr [id number] IV 02/12/25 22:00 02/13/25 21:59 02/12/25 23:34 59 MLS/HR Examination: GENERAL:Abnormal, LUNGS:Abnormal, MSK:Abnormal, SKIN:Abnormal, NEURO:Abnormal laboratory and microbiology Laboratory Tests 02/13/25 02:52 Test 02/13/25 02:52 Range/Units Serum Glucose 99 74-106 mg/dL Microbiology Date/Time Source Procedure Growth Status 02/09/25 03:40 Blood Blood Culture - Preliminary NO GROWTH AFTER 72 HOURS OF INCUBATION. Resulted 02/02/25 22:00 Urine - [place] Urine Culture - Final Complete 01/30/25 00:00 Nose MRSA Screen - Final Complete 01/29/25 10:43 Sputum Gram Stain - Final Complete 01/29/25 10:43 Sputum Respiratory Culture - Final Complete Problem List/Assessment/Plan Problem List/Assessment/Plan Acute kidney injury likely ischemic ATN in the setting of shock, FeNa > 2%, nonoliguric Acute respiratory failure, intubated on ventilator Status post cardiac arrest Anoxic encephalopathy//brain herniation Hyperkalemia secondary to above Metabolic acidosis anion gap secondary to lactic acidosis secondary to reduced perfusion from hemorrhage Hemodynamic shock from bleeding Acute blood loss anemia/post op Status post laparoscopic cholecystectomy on 01/28/25 [facility] Status post ex lap, 01/29 Positive troponins NSTEMI--likely demand ischemia Shock liver Hypokalemia Recommendations Hemodialysis will be on Monday Tunneled catheter for dialysis IR consulted Chair time arrangement pending disposition We will follow closely Plan discussed with: Other My Orders My Orders Orders - SILVIA NOONAN MD Procedure Category Date Status Time Hemodialysis Orders ORDERS 02/13/25 Transmitted 04:00 Dietary Evaluation Review Recommendations by RD: PPN/TPN Comments: 1) Increase TPN rate to meet at least 75% of estimated daily needs 2) Advance to renal cardiac diet when medically feasible, pending ST approval 3) Follow-up with cardiology, pulmonology, nephrology, neurology, and gastroenterology 4) Continue to monitor I&O, labs, and skin integrity Expected Outcomes/Goals: 1) nutritional support to meet at least 75% of estimated daily needs 2) labs and wound to improve 3) diet to advance 4) gradual wt loss 5) f/u in 2-3 days SILVIA NOONAN MD Feb 13, 2025 10:31
--- NOTE | 2025-02-13 19:33 | DVHPNRES ---
Progress Note Date Seen: Feb 13, 2025 Resident Creating Document: ARNOLD MUHAMMAD DALE Has the PT tested + for MRSA If YES, has PT been informed?: No Medical Necessity Reason Pt with a Central, PICC or Fol: Yes The following are medically ne: Central Line, Mora Catheter Reason for mora catheter: Nakul. Abd Surgery Subjective Review of Systems Patient seen and examined at the bedside. Patient is on mechanical ventilation, off from sedation. Objective vital signs Vital Sign Date Time Temp Pulse Resp B/P (MAP) Pulse Ox O2 Delivery O2 Flow Rate FiO2 02/13/25 18:30 92 18 108/56 (73) 97 02/13/25 18:18 30 02/13/25 18:00 Mechanical Ventilator+ 02/13/25 18:00 99.0 99.0 Total Intake and Output 02/12/25 02/12/25 02/13/25 15:00 23:00 07:00 Intake Total 540 ml 165 ml 702 ml Output Total 500 ml 350 ml Balance 540 ml -335 ml 352 ml medications Current Medications Medications Dose Ordered Sig/Serenity Route Start Time Stop Time Status Last Admin Dose Admin Midazolam HCl 50 ml @ 1 mls/hr Q24H IV 01/29/25 14:15 01/29/25 15:56 5 MLS/HR Phenylephrine HCl 250 ml @ 30 mls/hr Q8H20M IV 01/29/25 19:30 01/30/25 01:39 116.25 MLS/HR Levalbuterol HCl 0.625 mg Q4HR PRN NEB 01/29/25 20:00 02/12/25 09:49 0.625 MG Ipratropium [place] 0.5 mg Q4HPRN PRN NEB 01/29/25 20:00 02/10/25 06:08 0.5 MG Epinephrine HCl 250 ml @ 7.5 mls/hr Q24H IV 01/30/25 00:15 Vasopressin 20 units/Sodium Chloride 100 ml @ 9 mls/hr Q11H7M IV 01/30/25 07:30 02/03/25 13:09 9 MLS/HR Amino Acids 0 ml @ 0 mls/hr PER PHARMACY IV 02/01/25 11:15 Diagnostic Test (Pha) 1 strip Q6HR 02/01/25 18:00 02/13/25 18:00 1 STRIP Insulin Human Regular FOLLOW SLIDING SCALE Q6HR SC 02/01/25 18:00 02/02/25 11:36 2 UNITS Dextrose 50 ml UD IV 02/01/25 12:30 Epoetin Gunnar-epbx 4,000 unit MWF@2100 SC 02/03/25 21:00 02/12/25 23:44 4,000 UNIT Piperacillin Sod/ Tazobactam Sod 100 ml @ 25 mls/hr Q8HR IV 02/03/25 14:00 02/13/25 06:15 25 MLS/HR Vancomycin HCl 0 ml @ 0 mls/hr UD IV 02/04/25 09:00 Sodium Chloride 10 ml QSHIFT@, IV 02/04/25 22:00 02/13/25 09:06 10 ML Neomycin/ Polymyxin/ Bacitracin 1 applic DAILY TOP 02/06/25 10:00 02/13/25 09:06 1 APPLIC Bumetanide 2 mg BIDD IV 02/06/25 18:00 02/13/25 18:00 2 MG Norepinephrine Bitartrate 250 ml @ 0.938 mls/ hr Q24H IV 02/07/25 11:30 02/11/25 12:02 0.938 MLS/HR Artificial Tears 1 drop Q4HP PRN EACHEYE 02/08/25 07:30 Pantoprazole Sodium 40 mg Q12HR IV 02/08/25 22:00 02/13/25 09:06 40 MG Enteral Nutritional Formula 1,000 ml 20 NG 02/11/25 23:15 02/12/25 09:15 1,000 ML Fat Emulsion Intravenous 100 ml/Multivitamins 10 ml/Amino Acids/ Dextrose 1,410 ml @ 59 mls/hr [id number] IV 02/12/25 22:00 02/13/25 21:59 02/12/25 23:34 59 MLS/HR Fat Emulsion Intravenous 100 ml/Potassium Chloride 20 meq/ Multivitamins 10 ml/Chromium/ Copper/Manganese/ Zinc 1 ml/Amino Acids/Dextrose 1,521 ml @ 63 mls/hr Q24H9M IV 02/13/25 22:00 02/14/25 21:59 Examination General: RASS -5, afebrile, mucosae are moist Cardiovascular: Normal S1 and S2. No murmurs, gallops or rubs Respiratory: Mechanically assisted ventilation, equal bilateral airway entree. Clear lung sounds on auscultation Abdomen: Soft, nontender, no organomegaly, with surgical wound on abdomin MSK/skin: Mobilization of limbs cannot be evaluated. Skin is dry and warm. Neurological: Orientation cannot be assessed. Pupils are dilated and nonreactive to light, absent brainstem reflexes laboratory and microbiology Laboratory Tests 02/13/25 02:52 Test 02/13/25 02:52 Range/Units Serum Glucose 99 74-106 mg/dL Microbiology Date/Time Source Procedure Growth Status 02/09/25 03:40 Blood Blood Culture - Preliminary NO GROWTH AFTER 72 HOURS OF INCUBATION. Resulted 02/02/25 22:00 Urine - [place] Urine Culture - Final Complete 01/30/25 00:00 Nose MRSA Screen - Final Complete 01/29/25 10:43 Sputum Gram Stain - Final Complete 01/29/25 10:43 Sputum Respiratory Culture - Final Complete Problem List/Assessment/Plan Problem List/Assessment/Plan This is a 24-year-old male with no significant past medical history underwent elective laparoscopic cholecystectomy on 01/[address] [facility] (due to cholelithiasis), on 2nd day postop at home became lethargic and subsequently coded. ROSC was achieved with CPR, abdominal CT scan showed intra-abdominal hematoma, underwent emergent laparotomy and drained about 500-750 thrombosed and dark blood. NEURO: Hypoxic encephalopathy, due to cardiac arrest Possible anoxic brain injury * RASS Score -5 * Head CT from 01/30 shows, Cerebellar tonsilar herniation. There is sulcal and ventricular effacement. The basal cisterns are effaced. Loss of mario-white matter differentiation is noted. * BRNNM-brain imaging, shows absence blood flow, findings suggest brain in the appropriate clinical setting * Family discussion CARDIOVASCULAR: NSTEMI possible type 2 Status post cardiac arrest Distributive shock (vasoplegia)/neurogenic shock/septic shock vasopressin * Cardiology on the board, recommended medical management * Echo from 01/30 shows,Technically limited study secondary to poor acoustic windows, normal LV size and function, 55-60% PULMONARY: Acute hypoxic respiratory failure, likely due to anoxic brain injury Cxr showed bilateral mild pulmonary vascular congestion GASTROINTESTINAL: Acute transaminitis secondary to hypovolemic shock Coagulopathy Hypoalbuminemia Status post laparoscopic cholecystectomy Status post exploratory laparotomy for hemoperitoneum GENITOURINARY: HARLEEN secondary to hypovolemic shock * Nephrology on the board, performed dialysis on 02/03 * IV Bumex drip METABOLIC: Severe anion gap metabolic acidosis due to lactic acidosis Hypernatremia Grade 2 obesity, BMI 35.7 kg per m2 Hypoglycemia HEME: Severe anemia, due to bleeding * Received 3 units of PRBC, 2 units of FFP and 1 unit of cryoprecipitate * Monitor H&H INFECTIOUS DISEASE: Leucocytosis Lactic acidosis * Urine culture, blood culture and respiratory culture shows no growth * On Zosyn and vancomycin DIET: TPN DVT prophylax: Hold GI prophylaxis: Protonix Code status: Full code LINES/DRAINS/ACCESS: ETT: Intubated on 01/29 IV access: Lt IJ placed on 01/29/25 left subclavian Drips: On Levophed Mora catheter: Placed on 01/29 DISPOSITION: ICU status Patient's status discussed with the patient's mother at the bedside. Critical care time spent more than 47 minutes, including patient care, chart review, and updating the family. Excluding any procedures. Case discussed with Dr. Troy Plan discussed with: Other Dietary Evaluation Review Recommendations by RD: PPN/TPN Comments: 1) Increase TPN rate to meet at least 75% of estimated daily needs 2) Advance to renal cardiac diet when medically feasible, pending ST approval 3) Follow-up with cardiology, pulmonology, nephrology, neurology, and gastroenterology 4) Continue to monitor I&O, labs, and skin integrity Expected Outcomes/Goals: 1) nutritional support to meet at least 75% of estimated daily needs 2) labs and wound to improve 3) diet to advance 4) gradual wt loss 5) f/u in 2-3 days Date of Service: Feb 13, 2025 Billing Provider: JEFFREY TROY MD Common Visit Codes: 49578-[id number] CARE 30-74 MIN ARNOLD MUHAMMAD RESLOUIS Feb 13, 2025 19:33 JEFFREY TROY MD Feb 15, 2025 11:34
--- NOTE | 2025-02-13 20:39 | DVHPN2 ---
Progress Note Date Seen: Feb 13, 2025 Has the PT tested + for MRSA If YES, has PT been informed?: No Medical Necessity Reason Pt with a Central, PICC or Fol: Yes The following are medically ne: Central Line, Mora Catheter Reason for mora catheter: Nakul. Abd Surgery Subjective Review of Systems No changes. Pt's mother and brother at the bedside. PC will be placed by IR tomorrow. No TF given today. Pt's mother changed her mind about taking the patient home, agrees to transfer to [facility]. CM it applications manager making arrangements for transfer to [facility] facility and possibly have Tracheostomy and PEG placed there. Objective vital signs Vital Sign Date Time Temp Pulse Resp B/P (MAP) Pulse Ox O2 Delivery O2 Flow Rate FiO2 02/13/25 20:19 89 16 105/56 (72) 98 30 02/13/25 18:00 Mechanical Ventilator+ 02/13/25 18:00 99.0 99.0 Total Intake and Output 02/12/25 02/12/25 02/13/25 15:00 23:00 07:00 Intake Total 540 ml 165 ml 702 ml Output Total 500 ml 350 ml Balance 540 ml -335 ml 352 ml medications Current Medications Medications Dose Ordered Sig/Serenity Route Start Time Stop Time Status Last Admin Dose Admin Midazolam HCl 50 ml @ 1 mls/hr Q24H IV 01/29/25 14:15 01/29/25 15:56 5 MLS/HR Phenylephrine HCl 250 ml @ 30 mls/hr Q8H20M IV 01/29/25 19:30 01/30/25 01:39 116.25 MLS/HR Levalbuterol HCl 0.625 mg Q4HR PRN NEB 01/29/25 20:00 02/12/25 09:49 0.625 MG Ipratropium [place] 0.5 mg Q4HPRN PRN NEB 01/29/25 20:00 02/10/25 06:08 0.5 MG Epinephrine HCl 250 ml @ 7.5 mls/hr Q24H IV 01/30/25 00:15 Vasopressin 20 units/Sodium Chloride 100 ml @ 9 mls/hr Q11H7M IV 01/30/25 07:30 02/03/25 13:09 9 MLS/HR Amino Acids 0 ml @ 0 mls/hr PER PHARMACY IV 02/01/25 11:15 Diagnostic Test (Pha) 1 strip Q6HR 02/01/25 18:00 02/13/25 18:00 1 STRIP Insulin Human Regular FOLLOW SLIDING SCALE Q6HR SC 02/01/25 18:00 02/02/25 11:36 2 UNITS Dextrose 50 ml UD IV 02/01/25 12:30 Epoetin Gunnar-epbx 4,000 unit MWF@2100 SC 02/03/25 21:00 02/12/25 23:44 4,000 UNIT Piperacillin Sod/ Tazobactam Sod 100 ml @ 25 mls/hr Q8HR IV 02/03/25 14:00 02/13/25 06:15 25 MLS/HR Vancomycin HCl 0 ml @ 0 mls/hr UD IV 02/04/25 09:00 Sodium Chloride 10 ml QSHIFT@, IV 02/04/25 22:00 02/13/25 09:06 10 ML Neomycin/ Polymyxin/ Bacitracin 1 applic DAILY TOP 02/06/25 10:00 02/13/25 09:06 1 APPLIC Bumetanide 2 mg BIDD IV 02/06/25 18:00 02/13/25 18:00 2 MG Norepinephrine Bitartrate 250 ml @ 0.938 mls/ hr Q24H IV 02/07/25 11:30 02/11/25 12:02 0.938 MLS/HR Artificial Tears 1 drop Q4HP PRN EACHEYE 02/08/25 07:30 Pantoprazole Sodium 40 mg Q12HR IV 02/08/25 22:00 02/13/25 09:06 40 MG Enteral Nutritional Formula 1,000 ml 20 NG 02/11/25 23:15 02/12/25 09:15 1,000 ML Fat Emulsion Intravenous 100 ml/Multivitamins 10 ml/Amino Acids/ Dextrose 1,410 ml @ 59 mls/hr [id number] IV 02/12/25 22:00 02/13/25 21:59 02/12/25 23:34 59 MLS/HR Fat Emulsion Intravenous 100 ml/Potassium Chloride 20 meq/ Multivitamins 10 ml/Chromium/ Copper/Manganese/ Zinc 1 ml/Amino Acids/Dextrose 1,521 ml @ 63 mls/hr Q24H9M IV 02/13/25 22:00 02/14/25 21:59 Examination AFVSS. laboratory and microbiology Laboratory Tests 02/13/25 02:52 Test 02/13/25 02:52 Range/Units Serum Glucose 99 74-106 mg/dL Microbiology Date/Time Source Procedure Growth Status 02/09/25 03:40 Blood Blood Culture - Preliminary NO GROWTH AFTER 72 HOURS OF INCUBATION. 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 CT revealed cerebral edema and tonsillar herniation.EEG no electric activity. Cerebral perfusion study confirmed no perfusion radiographically consistent with brain which was concordant with initial clinical diagnosis and EEG. However, pt continues demonstrating brainstem function as he is breathing over vent set rate of 14. RR. There seems to be autonomic dysfunction. Pt's BP fluctuating and RR. Pt's family believe that he has been responding to verbal and physical stimuli. F/U (3rd) CT brain worsening cerebral edema and tonsillar herniation. Mother and brother informed. CV: Has been demonstrating episodes hypotension, likely autonomic deregulation secondary to brain injury. Cardiology assistance appreciated. Mechanical DVT prophylaxis. Unlikely PE (can't rule it out) but patient oxygenating well, no tachycardia. Pulmonary hypertension possibly unknowingly preexistent. Pulmonary: VDRF. Continue ventilator. Appreciate pulmonary medicine assistance. CXR PVC. No expectoration/phlegm upon suctioning. ABG pending. Pulmonary medicine following. Mother and family still feel they have not exhausted all possibilities, in spite of multiple discussions about his meaningful recovery expectations and prognosis. Mother wants to proceed with tracheostomy and PEG. CM working for [facility] and have it done there. GI: TF at 10 mL.Measure residual volume every 6 hrs. Hold TF if >150 mL. Continue TPN. Continue BID GI prophylaxis. Hepatic shock, stable. Appreciate GI assistance. Will need PEG/gastrostomy. Mother and family continuing full care, in spite of multiple discussions about his prognosis. They still have strong nicko and beliefs he will recover. Arrangement . ARF/ATN secondary to hemorrhagic shock. Uremia. Strict I&O. Stable u/o. Mora to gravity. Appreciate nephrology assistance. Replace/correct electrolytes. HD per nephrology. D/W with nephrology. PC tomorrow. Heme/ID. Hemorrhagic shock resolved. Uremia, which may impact platelet function. No further sanguineous drainage from IV access, OGT or ETT suction tubing. Hgb stable 8.8. No evidence of active bleeding. Minimizing blood draw frequency to avoid worsening anemia. Will reserve blood draws for daily and only if clinically indicated at any given moment. Repeat labs AM. Appreciate hematology assistance. Repeat Bld Cx done, Remain negative. will consider D/C Zosyn and Vancomycin tomorrow. Endocrine: Tight glycemic control. Skin: Skin care and pressure ulcer precautions. Plan discussed with: Other (Mother and brother) My Orders My Orders Orders - JITENDRA ZAMORA MD Procedure Category Date Status Time Communication Order ORDERS 02/13/25 Transmitted 06:09 * Radiologist Consult CONS 02/13/25 Transmitted 08:00 Obtain Consent For: ORDERS 02/13/25 Transmitted 08:00 Amino Acid PHA 02/13/25 In Process Infusion... W/Fat 22:00 Comprehensive LAB 02/14/25 Verified Metabolic Panel 05:00 Magnesium LAB 02/14/25 Verified 05:00 Phosphorus LAB 02/14/25 Verified 05:00 Tpn Per Pharmacy YANET 02/13/25 In Process 22:00 Vancomycin,Random LAB 02/14/25 Verified 05:00 Dietary Evaluation Review Recommendations by RD: PPN/TPN Comments: 1) Increase TPN rate to meet at least 75% of estimated daily needs 2) Advance to renal cardiac diet when medically feasible, pending ST approval 3) Follow-up with cardiology, pulmonology, nephrology, neurology, and gastroenterology 4) Continue to monitor I&O, labs, and skin integrity Expected Outcomes/Goals: 1) nutritional support to meet at least 75% of estimated daily needs 2) labs and wound to improve 3) diet to advance 4) gradual wt loss 5) f/u in 2-3 days JITENDRA ZAMORA MD Feb 13, 2025 20:39
[2025-02-13] MEDS: TPN PER PHARMACY IV NR (23:05)
--- NOTE | 2025-02-13 23:08 | DVHPN2 ---
Subjective DOS: 02/13/2025 [facility] Patient seen and examined at bedside. Intubated on mechanical ventilator. Overnight events reviewed. HPI: A 24-year-old man with past medical history of asthma and gallstone pancreatitis who underwent laparoscopic cholecystectomy on 01/28/2025 in [facility]. Patient was discharged on same day; and as per medical records he developed nausea, vomiting and shortness of breath the night prior to presentation and woke up very weak; noted on AM of presentation with altered level of consciousness. Paramedics were called and patient was found to be in cardiac arrest. CPR was done, ROSC obtained; however patient had fixed and dilated pupils per ER documentation on arrival. CT abdomen/pelvis without contrast in ED revealed a hepatic hematoma measuring 8.6 cm with hemorrhage extending beyond the liver capsule into the right paracolic gutter as well as the pelvis. The patient was emergently taken back to surgery and underwent evacuation of a large hemoperitoneum,. was subsequently admitted to ICU. Pulmonary consultation is requested for evaluation and management of acute hypoxic respiratory failure requiring mechanical ventilator. Past Medical History: Asthma and gallstone pancreatitis Past Surgical History: Laparoscopic cholecystectomy on 01/28/2025 at [facility] Medications: Reviewed. Allergies: No known drug allergies. Family History: No family history of premature CAD. No family history of lung disorders. Social History: Nonsmoker. No alcohol or illicit drug use. Changes from previous H/P or p: No Changes Objective Vitals Vital Signs Date Time Temp Pulse Resp B/P (MAP) Pulse Ox O2 Delivery O2 Flow Rate FiO2 02/13/25 22:13 88 15 109/60 (76) 98 30 02/13/25 20:00 Mechanical Ventilator+ 02/13/25 18:00 99.0 99.0 Intake/Output Intake and Output 02/13/25 07:00 Intake Total 1407 ml Output Total 850 ml Balance 557 ml Intake Oral 0 ml IV Total 1287 ml Tube Feeding 120 ml Output Urine Total 850 ml # Bowel Movements 2 Exam Gen.: Patient lying in bed in medical ICU. Intubated on mechanical ventilator. Head: Normocephalic, atraumatic. Eyes: Pupils fixed and blown Ears: Normal external anatomy. Throat: Endotracheal tube and orogastric tube in place. Neck: Supple, trachea midline. Chest: Transmitted breath sounds bilaterally. Decreased air entry bilaterally. No wheezing. Bibasilar crackles. Cardiovascular: Positive S1, positive S2. Regular rate and rhythm. Abdomen: Positive bowel sounds in all 4 quadrants. Soft, nontender, nondistended. : Green in place. Normal external genitalia. Rectal: Deferred. Skin: Warm, dry. Intact. Extremities: 2+ radial pulses bilaterally. No lower extremity edema. Neuro: No responses to painful stimuli. Medications Current Medications Medications Dose Ordered Sig/Serentiy Route Start Time Stop Time Status Last Admin Dose Admin Midazolam HCl 50 ml @ 1 mls/hr Q24H IV 01/29/25 14:15 01/29/25 15:56 5 MLS/HR Phenylephrine HCl 250 ml @ 30 mls/hr Q8H20M IV 01/29/25 19:30 01/30/25 01:39 116.25 MLS/HR Levalbuterol HCl 0.625 mg Q4HR PRN NEB 01/29/25 20:00 02/13/25 22:12 0.625 MG Ipratropium [place] 0.5 mg Q4HPRN PRN [facility] 01/29/25 20:00 02/13/25 22:12 0.5 MG Epinephrine HCl 250 ml @ 7.5 mls/hr Q24H IV 01/30/25 00:15 Vasopressin 20 units/Sodium Chloride 100 ml @ 9 mls/hr Q11H7M IV 01/30/25 07:30 02/03/25 13:09 9 MLS/HR Amino Acids 0 ml @ 0 mls/hr PER PHARMACY IV 02/01/25 11:15 Diagnostic Test (Pha) 1 strip Q6HR 02/01/25 18:00 02/13/25 18:00 1 STRIP Insulin Human Regular FOLLOW SLIDING SCALE Q6HR NE 02/01/25 18:00 02/02/25 11:36 2 UNITS Dextrose 50 ml UD IV 02/01/25 12:30 Epoetin Gunnar-epbx 4,000 unit MWF@2100 NE 02/03/25 21:00 02/12/25 23:44 4,000 UNIT Piperacillin Sod/ Tazobactam Sod 100 ml @ 25 mls/hr Q8HR IV 02/03/25 14:00 02/13/25 06:15 25 MLS/HR Vancomycin HCl 0 ml @ 0 mls/hr UD IV 02/04/25 09:00 Sodium Chloride 10 ml QSHIFT@10,22 IV 02/04/25 22:00 02/13/25 09:06 10 ML Neomycin/ Polymyxin/ Bacitracin 1 applic DAILY TOP 02/06/25 10:00 02/13/25 09:06 1 APPLIC Bumetanide 2 mg BIDD IV 02/06/25 18:00 02/13/25 18:00 2 MG Norepinephrine Bitartrate 250 ml @ 0.938 mls/ hr Q24H IV 02/07/25 11:30 02/11/25 12:02 0.938 MLS/HR Artificial Tears 1 drop Q4HP PRN EACHEYE 02/08/25 07:30 Pantoprazole Sodium 40 mg Q12HR IV 02/08/25 22:00 02/13/25 09:06 40 MG Enteral Nutritional Formula 1,000 ml 20 NG 02/11/25 23:15 02/12/25 09:15 1,000 ML Fat Emulsion Intravenous 100 ml/Potassium Chloride 20 meq/ Multivitamins 10 ml/Chromium/ Copper/Manganese/ Zinc 1 ml/Amino Acids/Dextrose 1,521 ml @ 63 mls/hr Q24H9M IV 02/13/25 22:00 02/14/25 21:59 02/13/25 23:05 63 MLS/HR Laboratory Results Laboratory Tests 02/13/25 02:52 Chemistry Test 02/13/25 02:52 Albumin 3.0 g/dL (3.2-4.8) L Calcium Level 9.4 mg/dL (8.7-10.4) Magnesium Level 2.2 mg/dL (1.6-2.6) Phosphorus Level 4.5 mg/dL (2.4-5.1) Total Protein 6.5 g/dL (5.7-8.2) LFT Test 02/13/25 02:52 Alanine Aminotransferase (ALT) 45 U/L (7-40) H Alkaline Phosphatase 573 U/L (46-116) H Aspartate Amino Transferase (AST) 186 U/L (13-40) H Total Bilirubin 2.9 mg/dL (0.2-1.0) H Urinalysis Test 01/29/25 09:54 01/29/25 14:15 Urine Color Light-orange (Yellow) Urine Clarity Turbid (Clear) H Urine pH 5.5 (5.0-9.0) Urine Specific [place] 1.017 (1.001-1.035) Urine Protein 2+ (Negative) H Urine Ketones Trace (Negative) Urine Blood 3+ /uL (Negative) H Urine Nitrite Negative (Negative) Urine Bilirubin Negative (Negative) Urine Urobilinogen Normal mg/dL (Negative) Urine Leukocyte Esterase Negative /uL (Negative) Urine RBC 130 /hpf (0 - 3) Urine Microscopic WBC < 1 /HPF (0-3) Urine Squamous Epithelial Cells Mod /hpf (<5) Urine Amorphous Crystals Few /hpf (None Seen) Urine Bacteria Few /hpf (None Seen) H Urine Glucose Trace mg/dL (Normal) Urine Creatinine 19.64 mg/dL (30.0-125.0) L Urine Sodium 98 mmol/L (40-220) Urine Total Protein 245.5 mg/dL (1-14) H Blood Gas Results Test 02/13/25 08:58 Arterial Blood pH 7.399 (7.350-7.450) FiO2 % 30.0 Microbiology Microbiology Date/Time Source Procedure Growth Status 02/09/25 03:40 Blood Blood Culture - Preliminary NO GROWTH AFTER 72 HOURS OF INCUBATION. Resulted 02/02/25 22:00 Urine - [place] Urine Culture - Final Complete 01/30/25 00:00 Nose MRSA Screen - Final Complete 01/29/25 10:43 Sputum Gram Stain - Final Complete 01/29/25 10:43 Sputum Respiratory Culture - Final Complete Assessment/Plan Assessment/Plan Impression: Acute hypoxic respiratory failure On mechanical ventilator Status post cardiac arrest Possible anoxic brain injury NSTEMI, possible type 2 Hypovolemic shock Acute kidney injury secondary to hypovolemic shock Obesity, BMI 30.4 Multiorgan failure Events: Remains on vent support AC mode with RR 14, VT 500, PEEP 7, FiO2 30% Pressors for hemodynamic support. Titrate to keep MAP above 65 mmHg/SBP above 90 mmHg. Of note, patient's blood pressure fluctuates; requiring Levophed at times. Not triggering vent Possible evolution of anoxic brain injury that is now affecting the brainstem completely. CXR today demonstrates bibasilar airspace disease which may reflect atelectasis and/or pneumonia. Possible small bilateral pleural effusions. ABG reviewed, compensated Head CT on 02/10/25 revealed worsening diffuse cerebral edema in the setting of anoxic brain injury in the given clinical setting. Continue antibiotics - Zosyn. Monitor cultures Continue bronchodilators Continue Protonix for GI ppx TPN for nutritional support Continue Bumex drip for diuresis Follow up Nephrology recs Monitor renal function Monitor electrolytes. Supplement as necessary. Monitor ins and outs. Monitor hemoglobin - currently 8.8 g/dL Transfuse if less than 7.0 g/dL Absent brainstem reflexes Signs of anoxic brain injury Second opinion Neurology consult recs appreciated. No cough or gag. Respiratory drive persists. Patient noted to be overbreathing the vent Patient with pupils fixed and blown NM brain perfusion study c/w anoxic brain injury Poor chance of meaningful recovery Neurology recommendations appreciated Overall poor prognosis with multiorgan dysfunction, poor chance of meaningful recovery Family agrees with plan for transfer to LTAC, possible trach and PEG placement there. Labs and imaging reviewed. Rest of plan as noted below. Plan: s/p intubation on mechanical ventilator On assist control with respiratory rate of 14, tidal volume 500, PEEP of 7, FiO2 of 30% Titrate FIO2 to keep O2 saturation above 92%. VAP bundle Daily ABG and CXR while intubated. Pressors as necessary for hemodynamic support. Titrate to keep MAP above 65 mmHg/SBP above 90 mmHg. Continue antibiotics. F/u cultures. Repeat blood cultures, no growth x72 hours Sputum culture grew normal oropharyngeal slava. Monitor hemoglobin Monitor renal function due to acute kidney injury. Monitor electrolytes. Supplement as necessary. Continue diuresis per Nephrology Monitor ins and outs Hemodialysis per nephrology Nutritional support. Accu-Cheks, ISS. GI/DVT prophylaxis. Overall poor prognosis w/ poor chance of meaningful recovery Condition: Critical Prognosis: Poor given multiple comorbidities. Rest of plan per hospitalist and other consultants. A total of 35 minutes of critical care time was spent reviewing the patient record, examining the patient, making a diagnostic and therapeutic plan, discussing this plan with the medical personnel, following up on diagnostic studies and following the patient for clinical stability excluding any and all procedures. At least 50% of this time was spent in direct, [id number] contact. Thank you for allowing me to participate in this patient's care. Further recommendations will depend on patient's clinical course. Please do not hesitate to contact me if you have any questions or concerns. This medical document was created using an electronic medical record system with [employer] system. Although this document has been carefully reviewed, there may still be some phonetic and typographical errors. These areas are purely typographical due to imperfections of the software programs, and do not reflect any compromise in the patient's medical care. Plan discussed with: Other (RN/NOK) Visit Coding Pulmonary Billing Provider: NEHEMIAS BEASLEY MD Date of Service if different f: Feb 13, 2025 Common Visit Codes: [id number] INP/OBS CARE(HIGH), [id number] CARE 30-74 MIN NEHEMIAS BEASLEY MD Feb 13, 2025 23:08
[2025-02-14] VITALS (63 sets, daily range): BP systolic 79–133; BP diastolic 40–85; PULSE 80–102; RESP 14–20; TEMP 97.3–99; O2SAT 96–100
[2025-02-14 04:18] LABS: Hematocrit 25.8 % (41.0-53.0); Hemoglobin 8.9 g/dL (13.5-17.5); Mean Corpuscular Hemoglobin 30.4 pg (28.0-32.0); Mean Corpuscular Volume 88.4 fL (80.0-100.0); Nucleated Red Blood Cells % 0.2 %
[2025-02-14 04:44] LABS: Alanine Aminotransferase 38 U/L (7-40); Anion Gap 16 (5-15); BUN/Creatinine Ratio 9.9 (10.0-20.0); Calcium 9.7 mg/dL (8.7-10.4); Carbon Dioxide 25 mmol/L (20-31); Magnesium 2.4 mg/dL (1.6-2.6); Potassium 4.1 mmol/L (3.5-5.1); Sodium 139 mmol/L (136-145); Total Protein 6.5 g/dL (5.7-8.2)
--- NOTE | 2025-02-14 05:41 | DVH ---
CHEST RADIOGRAPH Indication: VDRF Technique: Single frontal view of the chest was obtained COMPARISON: XY CHEST PORTABLE on DOS: 02/13/25, XY CHEST PORTABLE on DOS: 02/12/25, XY CHEST PORTABLE o n DOS: 02/11/25, XY CHEST PORTABLE on DOS: 02/10/25, XY CHEST PORTABLE on DOS: 02/10/25 FINDINGS: Lines and Tubes: No endotracheal tube tip projects approximately 4.1 cm above the level of the meghan . Enteric catheter terminates within the gastric lumen. Right peripherally inserted central cathete r and left subclavian central venous line tips project over the distal superior vena cava. ne Lungs: Clear Pleura: No effusion. No pneumothorax. Cardiomediastinal contours: Unremarkable Bones: Unremarkable IMPRESSION: 1. No acute cardiopulmonary disease. 2. Lines and tubes as above.
[2025-02-14 06:15] LABS: Albumin 2.8 g/dL (3.2-4.8); Alkaline Phosphatase 610 U/L (46-116); Bilirubin, Total 3.2 mg/dL (0.2-1.0); Chloride 98 mmol/L (98-107); Glucose 115 mg/dL (74-106)
[2025-02-14 06:17] LABS: Blood Urea Nitrogen 89 mg/dL (9-23)
--- NOTE | 2025-02-14 07:30 | DVHPN2 ---
Progress Note - Dictate Date Seen: Feb 14, 2025 Has the PT tested + for MRSA If YES, has PT been informed?: No Medical Necessity Reason Pt with a Central, PICC or Fol: Yes The following are medically ne: Central Line, Mora Catheter Reason for mora catheter: Nakul. Abd Surgery vital signs Vital Sign Date Time Temp Pulse Resp B/P (MAP) Pulse Ox O2 Delivery O2 Flow Rate FiO2 02/14/25 06:36 92 19 97/46 (63) 97 30 02/14/25 06:00 97.5 97.5 02/14/25 06:00 Mechanical Ventilator+ Total Intake and Output 02/13/25 02/13/25 02/14/25 15:00 23:00 07:00 Intake Total 572 ml 472 ml 451 ml Output Total 600 ml 650 ml Balance 572 ml -128 ml -199 ml medications Current Medications Medications Dose Ordered Sig/Serenity Route Start Time Stop Time Status Last Admin Dose Admin Midazolam HCl 50 ml @ 1 mls/hr Q24H IV 01/29/25 14:15 01/29/25 15:56 5 MLS/HR Phenylephrine HCl 250 ml @ 30 mls/hr Q8H20M IV 01/29/25 19:30 01/30/25 01:39 116.25 MLS/HR Levalbuterol HCl 0.625 mg Q4HR PRN NEB 01/29/25 20:00 02/13/25 22:[address] 0.5 mg Q4HPRN PRN NEB 01/29/25 20:00 02/13/25 22:12 0.5 MG Epinephrine HCl 250 ml @ 7.5 mls/hr Q24H IV 01/30/25 00:15 Vasopressin 20 units/Sodium Chloride 100 ml @ 9 mls/hr Q11H7M IV 01/30/25 07:30 02/03/25 13:09 9 MLS/HR Amino Acids 0 ml @ 0 mls/hr PER PHARMACY IV 02/01/25 11:15 Diagnostic Test (Pha) 1 strip Q6HR 02/01/25 18:00 02/14/25 05:47 1 STRIP Insulin Human Regular FOLLOW SLIDING SCALE Q6HR SC 02/01/25 18:00 02/02/25 11:36 2 UNITS Dextrose 50 ml UD IV 02/01/25 12:30 Epoetin Gunnar-epbx 4,000 unit MWF@2100 SC 02/03/25 21:00 02/12/25 23:44 4,000 UNIT Piperacillin Sod/ Tazobactam Sod 100 ml @ 25 mls/hr Q8HR IV 02/03/25 14:00 02/14/25 05:46 25 MLS/HR Vancomycin HCl 0 ml @ 0 mls/hr UD IV 02/04/25 09:00 Sodium Chloride 10 ml QSHIFT@,22 IV 02/04/25 22:00 02/13/25 23:06 10 ML Neomycin/ Polymyxin/ Bacitracin 1 applic DAILY TOP 02/06/25 10:00 02/13/25 09:06 1 APPLIC Bumetanide 2 mg BIDD IV 02/06/25 18:00 02/14/25 05:47 2 MG Norepinephrine Bitartrate 250 ml @ 0.938 mls/ hr Q24H IV 02/07/25 11:30 02/11/25 12:02 0.938 MLS/HR Artificial Tears 1 drop Q4HP PRN EACHEYE 02/08/25 07:30 Pantoprazole Sodium 40 mg Q12HR IV 02/08/25 22:00 02/13/25 23:06 40 MG Enteral Nutritional Formula 1,000 ml 20 NG 02/11/25 23:15 02/12/25 09:15 1,000 ML Fat Emulsion Intravenous 100 ml/Potassium Chloride 20 meq/ Multivitamins 10 ml/Chromium/ Copper/Manganese/ Zinc 1 ml/Amino Acids/Dextrose 1,521 ml @ 63 mls/hr Q24H9M IV 02/13/25 22:00 02/14/25 21:59 02/13/25 23:05 63 MLS/HR laboratory and microbiology Laboratory Tests 02/14/25 03:30 Test 02/14/25 03:30 Range/Units Serum Glucose 115 H 74-106 mg/dL Assessment/Plan Still in ICU. On vent support. Blood pressure stable. Off any pressure support. No gross higher brain reflexes. Pupils are dilated and fixed. Anoxic/Hypoxic Encephalopathy No reported arrhythmia overnight Echocardiogram revealed no WMA and also revealed good EF. It also revealed increased Pulmonary Artery Pressure in favor of component of Pulmonary Hypertension. s/p Hemodialysis Received blood and platelet transfusion repeatedly Patient is a 24-year-old gentleman who was originally brought to the hospital for post arrest. Patient is seen in postop area. Patient is intubated and on multiple pressor supports. Patient is not source of history. Information was obtained by reviewing the chart, talking to patient's family/mother and communicating with staff and reviewing outside records ([facility]). Patient did have elective outpatient laparoscopic cholecystectomy in [facility] on January 28 2025. As per mother, after going home, patient was feeling very hungry and was eating and drinking a lot. He started feeling abdominal pain with nausea at night and in the morning was short of breath. As per mother: patient has stopped breathing in the morning and family called 911. As per mother, as per guidance of 911, family started CPR until EMS arrived. Patient was intubated and was brought to the hospital by EMS. Since arrival to [facility], patient was seen by surgeon who took the patient to operating room and performed laparotomy (there was hepatic hematoma). Postoperatively, the patient has remained hypotensive. There is signs for multiorgan involvement. Patient was not alert and did not complain of any chest pains. Labs revealed increased troponin. Cardiology is involved for cardiac aspects of care and abnormal troponin. First available EKG reveals sinus tachycardia with no specific ST-T changes. Telemetry had revealed sinus tachycardia throughout the stay. Patient is found to have significant anemia and is receiving blood transfusion at the time of evaluation. It is of note that at the time of evaluation patient does not have any reflexes. Intubated. Mucosa pale. Dilated and fixed pupils, Scattered rhonchi in the lungs. Cardiac: Tachycardic. No murmur. Abdomen is covered by dressing. Extremities do not reveal any edema. Dorsalis pedis is 1+ bilateral. Patient does not respond to any stimuli. Reported past medical history includes asthma and obesity. Reportedly, on January 23, 2025: Patient presented to [facility] for abdominal pain/nausea/vomiting. At that point the problems were ongoing for few weeks. In [facility], CT of the abdomen and MRCP were performed. Patient was seen by GI/surgery. Patient was found to have gallstones. Patient was discharged and later on January 28, 2025 presented back to [facility] for elective laparoscopy cholecystectomy. Patient was discharged home from [facility] after laparoscopic cholecystectomy. As per mother, patient does not have baseline history of any cardiac history. As per mother, patient was using marijuana. Mother denies any previous substance abuse besides marijuana. No specific family history is reported On January 23, 2025, labs in [facility] revealed creatinine of 0.84, hemoglobin of 15.2 and troponin (high sensitive) of <3. At that point EKG was normal WBC: 20.1 - 19.0 - 22.7 - 20.6 - 28.4 - 20.3 - 21.0 - 25.2 - 29.8 - 29.5 - 29.0 - 26.2 - 21.7 - 19.7 - 17.7 - 15.3 - 12.2 - 10.5 - 11.2 - 13.0 - 10.7 - 9.0 - 9.0 - 10.3 Hemoglobin: 8.3 - 6.5 - 12.1 - 11.1 - 12.1 - 9.3 - 9.2 - 9.1 - 8.4 - 9.0 - 9.5 - 8.8 - 8.4 - 8.0 - 9.7 - 9.6 - 9.8 - 9.6 - 9.7 - 9.8 - 9.1 - 8.5 - 8.8 - 8.9 Fibrinogen: 108 - 316 - 537 - 689 - >860 Creatinine: 4.02 - 3.78 - 3.90 - 3.95 - 4.34 - 5.44 - 6.05 - 6.73 - 7.31 - 7.77 - 6.64 - 7.30 - 4.91 - 5.32 - 7.40 - 5.98 - 7.66 - 6.28 - 7.71 - 8.67 - 6.87 - 5.62 - 7.59 - 8.95 Potassium: 5.6 - 4.6 - 4.8 - 3.9 - 2.9 - 2.9 - 3.6 - 3.8 - 4.9 - 5.4 - 6.0 - 5.1 - 5.3 - 6.1 - 6.0 - 4.6 - 4.4 - 4.3 - 3.5 - 3.4 - 3.7 - 4.5 - 5.7 - 5.2 - 4.0 - 3.8 - 4.1 AST/ALT: 676/700 - 2327/6 - 4636/2521 - -/1995 - 2500/1989 - 1780/1821 - 808/995 - 586/735 - 456/444 - 312/290 - 237/163 - 215/125 - 190/87 - 200/74 - 202/66 - 189/53 - 186/44 - 186/45 - 192/38 Lactic acid: 17.9 - 17.2 - 11.4 Troponin (high sensitive): 2973 - 2712 - 4367 - 8371 - 9543 TSH: 11.05 Urine Toxicology: positive for Fentanyl and Benzodiazepine Chest x-ray revealed: Lines and Tubes: Endotracheal tube projects 2.2 cm above the meghan. Right internal jugular central venous catheter tip projects over superior vena cava. Lungs: No focal consolidation. Low lung volumes. Pleura: No effusion. No pneumothorax. Cardiomediastinal contours: Unremarkable Bones: No acute osseous abnormality. IMPRESSION: Lines and tubes as above. Low lung volumes. Repeat chest x-ray revealed: IMPRESSION: Lines and tubes in satisfactory position. Mild increased pulmonary vascular congestion Repeat chest xry revealed: IMPRESSION: Lines and tubes in satisfactory position. Mild increased pulmonary vascular congestion Repeat chest xry revealed: IMPRESSION: 1. Low lung volumes with concomitant crowding of the pulmonary vasculature. 2. No evidence of focal consolidation. 3. Lines and tubes unchanged. Repeat chest xry revealed: IMPRESSION: 1. Slight interval retraction of the endotracheal tube such that the tip now projects approximately 4.7 cm above the level of the meghan. Remaining lines and tubes unchanged. 2. Otherwise no significant change compared to prior exam. Repeat chest xry revealed: IMPRESSION: 1. Slight interval advancement of endotracheal tube such that the tip now projects approximately 1.7 cm above the level of the meghan. Remaining lines and tubes unchanged. 2. Otherwise no significant change compared to prior exam. Repeat chest xry revealed: IMPRESSION: 1. Slight interval retraction of the endotracheal tube such that the tip now projects approximately 3.3 cm above the level of the meghan. Remaining lines and tubes unchanged. 2. No evidence of acute cardiopulmonary process. Repeat chest xry revealed: IMPRESSION: 1. Endotracheal tube in appropriate position. Remaining lines and tubes unchanged. 2. No evidence of acute cardiopulmonary process. Repeat chest xry revealed: IMPRESSION: 1. Small right pleural effusion. 2. Lines and tubes unchanged. Repeat chest xry revealed: IMPRESSION: 1. Small right pleural effusion. 2. Lines and tubes unchanged. Repeat chest xry revealed: IMPRESSION: 1. Small bilateral pleural effusions. 2. Lines and tubes unchanged. Repeat chest xry revealed: IMPRESSION: 1. Slight interval advancement of the endotracheal tube. Remaining lines and tubes unchanged. 2. No evidence of acute cardiopulmonary process. Repeat chest xry revealed: IMPRESSION: 1. Slight interval retraction of the endotracheal tube such that the tip now projects approximately 3.3 cm above the level of the meghan. Remaining lines and tubes unchanged. 2. No evidence of acute cardiopulmonary process. Repeat chest xry revealed: Bowel gas pattern is unremarkable. Enteric tube tip projects over the expected region of the stomach. The lung bases demonstrates bibasilar atelectasis. The lower pelvis is collimated from field of view. No acute osseous abnormality identified. Repeat chest xry revealed: Lines and Tubes: Endotracheal tube tip projects approximately 5.1 cm above the level of the meghan. Enteric catheter terminates within the gastric lumen. Right peripherally inserted central catheter tip and left subclavian central venous catheter tip project over the distal superior vena cava. Lungs: Clear Pleura: No effusion. No pneumothorax. Cardiomediastinal contours: Unremarkable Bones: Unremarkable IMPRESSION: 1. No radiographic evidence of acute cardiopulmonary abnormality. 2. Lines and tubes as above. Repeat chest xry revealed: IMPRESSION: 1. Stable position of the support lines and tubes. 2. Bibasilar airspace disease which may reflect atelectasis and/or pneumonia. Possible small bilateral pleural effusions. Repeat chest xry revealed: IMPRESSION: 1. Lines and tubes unchanged. 2. Persistently diminished lung volumes with concomitant exaggeration of the pulmonary vasculature. No evidence of acute cardiopulmonary process. Repeat chest xry revealed: IMPRESSION: 1. No acute cardiopulmonary disease. 2. Lines and tubes as above. Brain scan revealed: FINDINGS: Absence of cerebral blood flow is noted along with no brain parenchymal radiotracer uptake. Increased activity is seen in the central face likely representing vascular shunting consistent with the so-called "hot nose" sign. Findings suggest brain however clinical correlation is necessary. IMPRESSION: Findings described above, which would be consistent with brain in the appropriate clinical setting, however clinical correlation is needed. CT of the chest/abdomen/pelvis revealed: IMPRESSION: 1. Hepatic hematoma measuring up to approximately 8.6 cm in greatest dimension, as described above, with hemorrhage extending beyond the liver capsule and into the right pericolic gutter as well as into the pelvis. No definite active arterial bleeding is seen on this exam, although limited evaluation due to the timing of contrast, as this was not a CTA exam. 2. Postsurgical changes of cholecystectomy. 3. Dilated fluid-filled small bowel loops, may be due to postoperative ileus. No small bowel obstruction. 4. Small volume pneumoperitoneum, likely due to recent surgery. Small volume of gas are seen in the upper ventral abdomen from the recent surgery. 5. Dependent atelectasis in the lower lobes. Otherwise, no acute disease in the chest. 6. Endotracheal tube and enteric tube in place. 7. Atrophic right kidney incidentally noted. 8. Additional findings as described above. Critical findings Critical Result: Acute hepatic hematoma with hemorrhage extending beyond the liver capsule into the adjacent portions of the abdomen and into the pelvis as detailed above. Repeat CT of chest/abdomen/pelvis revealed: There is limited interpretation of the chest, abdomen and pelvis without administration of intravenous contrast. Endotracheal tube tip terminates just at the meghan / left main bronchus. Diffuse bilateral pulmonary airspace consolidation bilaterally significantly increased. Bilateral lower lobe lobar consolidation/ atelectasis, increased from prior. Small bilateral pleural effusions. There is extensive edema/ stranding within the upper anterior chest, neck region/supraclavicular region. There is some hyperdensity within this region which could represent components of hematoma / blood products. Heterogeneous appearance of the thyroid gland. Right IJ catheter terminating at the cavoatrial junction. Adrenal glands unremarkable in shape. Perisplenic hematoma. Interval postsurgical changes in the right upper quadrant of the abdomen. There appears to be surgicel/gaseous collection within the previous hematoma cavity, likely representing surgicel. There is a radiopaque density within the resection cavity as well which measures 6.2 x 4.6 cm.. Postoperative changes of the right anterior abdomen with soft tissue emphysema. Small amount of pneumoperitoneum Surgical drainage catheter terminating in the right upper quadrant of the abdomen Right renal parenchymal atrophy. Left kidney demonstrates perinephric edema / stranding. No left hydronephrosis. Nasogastric tube projects towards the distal stomach. Moderate distention small bowel loops. Rectal catheter. Moderate distention of the large bowel loops. Normal appendix. Abdominal aorta normal in caliber. Small amount of ascites fluid/ mesenteric edema. Bladder decompressed by Mora catheter. Soft tissue edema /anasarca. Mesenteric edema. Small amount of ascites fluid. The osseous structures are stable. IMPRESSION: Limited evaluation without contrast. Interval evacuation of the right upper quadrant hematoma. Surgicel within the resection cavity. No significant interval development of new hematoma. There are 2 radiopaque lap pads within the resection cavity . Findings reviewed with Dr. Ledesma at 11:51 a.m. on 01/30/2025 Perisplenic hematoma, similar to previous examination. Extensive bilateral pulmonary airspace consolidation, significantly increased from previous examination. Small bilateral pleural effusions. Right upper quadrant drainage catheter. Pneumoperitoneum. Soft tissue edema / anasarca. Small amount of ascites fluid/ mesenteric edema. Extensive edema within the anterior chest, neck region. Heterogeneous appearance thyroid gland. Other findings as described. CT of the head revealed: IMPRESSION: 1. No evidence of acute intracranial abnormality. Repeat CT of head revealed: FINDINGS: Cerebellar tonsilar herniation. There is sulcal and ventricular effacement. The basal cisterns are effaced. Loss of mario-white matter differentiation is noted. The skull and visible facial bones are intact. The paranasal sinuses, mastoid air cells and middle ear cavities are well-aerated. The soft tissues of the scalp are unremarkable. IMPRESSION: Diffuse cerebral edema with cerebellar tonsillar herniation. Recommend MRI brain for further evaluation. Repeat CT of head revealed: FINDINGS: There is diffuse low attenuation throughout the brain with increased effacement of the ventricles and complete sulcal effacement. There is cerebellar tonsillar herniation. The orbits are normal. There is moderate mucosal thickening within the paranasal sinuses and mastoid air cells. The soft tissues and osseous structures appear within normal limits. IMPRESSION: 1. Findings as above suggesting worsening diffuse cerebral edema in the setting of anoxic brain injury in the given clinical setting. Further clinical correlation is suggested. CT of Neck revealed: IMPRESSION: Limited evaluation without contrast. Extensive soft tissue edema within the neck extending into the anterior / upper chest and anterior mediastinum . Retropharyngeal edema. Heterogeneous appearance of the thyroid gland. Inferior cerebellar tonsillar herniation better seen on the prior CT Renal Ultrasound revealed: IMPRESSION: 1. Right kidney not visible. 2. Left kidney is enlarged. 3. No hydronephrosis. Venous duplex of lower ext revealed: IMPRESSION: NO SONOGRAPHIC EVIDENCE FOR DEEP VENOUS THROMBOSIS IN THE RIGHT LOWER EXTREMITY VEINS. EEG reported: This is a remarkably abnormal EEG, this EEG seen in severe cerebral dysfunction due to metabolic/hypoxic encephalopathy or medication effects, unless this is caused by reversible etiology, this EEG is suggestive of a poor prognosis for meaningful recovery, please correlate clinically. Arrival EKG revealed sinus tachycardia with nonspecific ST-T changes Tele reveals sinus tachycardia Echocardiogram revealed: Technically limited study secondary to poor acoustic windows. Left ventricle: Left ventricle was normal-sized with normal systolic function. LVEF was 55-60%. No gross wall motion abnormality was seen. Right ventricle was mildly dilated with normal systolic function. Left atrium was normal-sized. Right atrium was mildly dilated. Aortic valve: Aortic valve was not well visualized. There was no aortic insufficiency/stenosis. There was no mitral regurgitation. There was trace tricuspid regurgitation. Pulmonary valve was not well visualized. IVC was not visualized. Right ventricular systolic pressure was assessed around 48 mm Hg. There was no pericardial effusion. Patient is a 24-year-old gentleman who presented with post arrest. It seems that the patient had hemorrhagic (intra-abdominal) presentation. Patient did have elective laparoscopic cholecystectomy the day before presentation. On the day of presentation, the patient was taken back to operating room and this time Laparotomy was done for hepatic hematoma. Patient does have multiorgan involvement. Clinically there is no brainstem reflexes. Shock liver/acute renal failure is considered. Troponin has been high. EKG did not reveal any STEMI. Presentation could be high troponin secondary to demand physiology. Patient does not have any risk factors for baseline coronary artery disease. In ideal scenario, ischemic workup/cardiac catheterization could be more revealing. Unfortunately, the patient does have acute renal failure which could be worsened by cardiac catheterization at this point. As there was no higher brain functions the suggestion is to wait and see if patient regains any higher brain function. It is of note that during cardiac catheterization, the patient may need some anticoagulation/antiplatelets. At this point patient is having significant anemia/bleeding and receiving blood transfusion and holding off of scenario forcing Anticoagulation/antiplatelets is advised. I had a long discussion with family members and Mother (repeatedly). Clinically patient has multiorgan failure. Secondary to active bleeding, we will avoid anticoagulation/antiplatelets for now. Being managed in ICU. Was taken to OR repeatedly. Still no reflexes. Echocardiogram revealed no WMA and also revealed good EF. It also revealed increased Pulmonary Artery Pressure in favor of component of Pulmonary Hypertension. Review of Echo images revealed good right ventricular systolic function. Not typical for Pulmonary Emboli. Still, PE cannot be ruled out. If PE is ruled out, then it is possible that patient had Pulmonary Hypertension from before (Baseline history of Asthma may actually reflect it). s/p PRBC transfusion (multiple). Being followed by Surgery, Nephrology, Hematology, Pulmonary, Neurology and GI. . Repeat imaging revealed cerebellar tonsillar herniation. Neurology diagnosed Hypoxic/Metabolic Encephalopathy also. EEG findings question meaningful recovery. Neurology declared patient: brain . Neurology second opinion was in favor of Anoxic/Hypoxic Encephalopathy. Repeat imaging of brain revealed worsening diffuse cerebral edema and also again revealed cerebellar tonsillar herniation. s/ p Arrest Intra-abdominal bleeding Hepatic hematoma Multiorgan failure, due to shock Shock liver Lactic Acidosis Acute renal failure Acute respiratory failure, on vent support Status post laparotomy Status post laparoscopic cholecystectomy Abnormal troponin, evaluated to reflect possible demand physiology History of gallstones History of asthma Obesity History of marijuana abuse Consumptive Coagulopathy / DIC Pulmonary Hypertension Cerebellar tonsillar Herniation. Encephalopathy, hypoxic/metabolic Renal failure, started on hemodialysis Brain scan questions brain Anoxic Encephalopathy Cardiac suggestion for management: Manage in ICU Follow-up electrolytes and kidney function tests and correct abnormalities Evaluation and management of respiratory failure as per Pulmonary Evaluation and management of Cerebellar tonsillar herniation and worsening cerebral edema as per Neurology/surgery/primary team V/Q scan could not be completed Anoxic/Hypoxic Encephalopathy Echocardiogram revealed no WMA and also revealed good EF. It also revealed increased Pulmonary Artery Pressure in favor of component of Pulmonary Hypertension. Hematology follow up (to comment on prophylaxis / treatment of Pulmonary Emboli) Surgical follow up Nephrology follow up (started on hemodialysis) and Hematology follow up DVT prophylaxis as per primary team (compression stocking Vs Lovenox..) Long-term prognosis depends on the above and most importantly regaining of the higher brain function: looks very grim Ischemic workup may be considered only after regaining higher brain function or any special change in clinical presentation Further evaluation and management depends on the above and clinical course A total of 75 minutes was spent reviewing the patient record, examining the patient, making a diagnostic and therapeutic plan, discussing this plan with medical personnel, following up on diagnostic studies and following the patient for clinical stability excluding any and all procedures. At least 50% of this time was spent in direct, [id number] contact. Thank you for allowing me to participate in this patient's care. Further recommendations will depend on patient's clinical course. Please do not hesitate to contact me if you have any questions or concerns. This medical document was created using electronic medical record system with [employer] computerized dictation system. Although this document has been carefully reviewed, there may still be some phonetic and typographical errors. These areas are purely typographical due to the imperfection of the software programs, and do not reflect any compromise in the patient's medical care. Dietary Evaluation Review Recommendations by RD: PPN/TPN Comments: 1) Increase TPN rate to meet at least 75% of estimated daily needs 2) Advance to renal cardiac diet when medically feasible, pending ST approval 3) Follow-up with cardiology, pulmonology, nephrology, neurology, and gastroenterology 4) Continue to monitor I&O, labs, and skin integrity Expected Outcomes/Goals: 1) nutritional support to meet at least 75% of estimated daily needs 2) labs and wound to improve 3) diet to advance 4) gradual wt loss 5) f/u in 2-3 days Plan discussed with: Other (nurse) KATHLEEN COHEN MD Feb 14, 2025 07:30
--- NOTE | 2025-02-14 08:38 | DVHPN2 ---
Progress Note Date Seen: Feb 14, 2025 Has the PT tested + for MRSA If YES, has PT been informed?: No Medical Necessity Reason Pt with a Central, PICC or Fol: Yes The following are medically ne: Central Line, Mora Catheter Reason for mora catheter: Nakul. Abd Surgery Subjective Review of Systems Pt condition unchanged. Per RN no events. Tolerating TF at 10 mL/hr Objective vital signs Vital Sign Date Time Temp Pulse Resp B/P (MAP) Pulse Ox O2 Delivery O2 Flow Rate FiO2 02/14/25 06:36 92 19 97/46 (63) 97 30 02/14/25 06:00 97.5 97.5 02/14/25 06:00 Mechanical Ventilator+ Total Intake and Output 02/13/25 02/13/25 02/14/25 15:00 23:00 07:00 Intake Total 572 ml 472 ml 451 ml Output Total 600 ml 650 ml Balance 572 ml -128 ml -199 ml medications Current Medications Medications Dose Ordered Sig/Serenity Route Start Time Stop Time Status Last Admin Dose Admin Midazolam HCl 50 ml @ 1 mls/hr Q24H IV 01/29/25 14:15 01/29/25 15:56 5 MLS/HR Phenylephrine HCl 250 ml @ 30 mls/hr Q8H20M IV 01/29/25 19:30 01/30/25 01:39 116.25 MLS/HR Levalbuterol HCl 0.625 mg Q4HR PRN NEB 01/29/25 20:00 02/13/25 22:12 0.625 [address] [place] 0.5 mg Q4HPRN PRN NEB 01/29/25 20:00 02/13/25 22:12 0.5 MG Epinephrine HCl 250 ml @ 7.5 mls/hr Q24H IV 01/30/25 00:15 Vasopressin 20 units/Sodium Chloride 100 ml @ 9 mls/hr Q11H7M IV 01/30/25 07:30 02/03/25 13:09 9 MLS/HR Amino Acids 0 ml @ 0 mls/hr PER PHARMACY IV 02/01/25 11:15 Diagnostic Test (Pha) 1 strip Q6HR 02/01/25 18:00 02/14/25 05:47 1 STRIP Insulin Human Regular FOLLOW SLIDING SCALE Q6HR SC 02/01/25 18:00 02/02/25 11:36 2 UNITS Dextrose 50 ml UD IV 02/01/25 12:30 Epoetin Gunnar-epbx 4,000 unit MWF@2100 SC 02/03/25 21:00 02/12/25 23:44 4,000 UNIT Piperacillin Sod/ Tazobactam Sod 100 ml @ 25 mls/hr Q8HR IV 02/03/25 14:00 02/14/25 05:46 25 MLS/HR Vancomycin HCl 0 ml @ 0 mls/hr UD IV 02/04/25 09:00 Sodium Chloride 10 ml QSHIFT@10,22 IV 02/04/25 22:00 02/13/25 23:06 10 ML Neomycin/ Polymyxin/ Bacitracin 1 applic DAILY TOP 02/06/25 10:00 02/13/25 09:06 1 APPLIC Bumetanide 2 mg BIDD IV 02/06/25 18:00 02/14/25 05:47 2 MG Norepinephrine Bitartrate 250 ml @ 0.938 mls/ hr Q24H IV 02/07/25 11:30 02/11/25 12:02 0.938 MLS/HR Artificial Tears 1 drop Q4HP PRN EACHEYE 02/08/25 07:30 Pantoprazole Sodium 40 mg Q12HR IV 02/08/25 22:00 02/13/25 23:06 40 MG Enteral Nutritional Formula 1,000 ml 20 NG 02/11/25 23:15 02/12/25 09:15 1,000 ML Fat Emulsion Intravenous 100 ml/Potassium Chloride 20 meq/ Multivitamins 10 ml/Chromium/ Copper/Manganese/ Zinc 1 ml/Amino Acids/Dextrose 1,521 ml @ 63 mls/hr Q24H9M IV 02/13/25 22:00 02/14/25 21:59 02/13/25 23:05 63 MLS/HR Examination Neuro. Unchanged. Dilated fixed pupils. No reflexes. CV. Hr 80s. Hemodynamically stable. LSCV and right PICC catheter exit sites remain C/D/I. Pulmonary: Intubated with mechanical ventilator support 500/14/30%/+7. RR 17. ETT suction tubing clean. GI: Soft, obese, non distended and non tender. Incisions and dressing C/D/I. TF at 10 mL/hr via OGT. Tolerating,No further sanguineous output. . Mora catheter in place. Clear yellow urine in collection bag Extremities; No edema Resolved facial and neck edema. Mild orbital edema laboratory and microbiology Laboratory Tests 02/14/25 03:30 Test 02/14/25 03:30 Range/Units Serum Glucose 115 H 74-106 mg/dL Microbiology Date/Time Source Procedure Growth Status 02/09/25 03:40 Blood Blood Culture - Final NO GROWTH AFTER 5 DAYS OF INCUBATION. 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 CT revealed cerebral edema and tonsillar herniation.EEG no electric activity. Cerebral perfusion study confirmed no perfusion radiographically consistent with brain which was concordant with initial clinical diagnosis and EEG. However, pt continues demonstrating brainstem function as he is breathing over vent set rate of 14. RR. There seems to be autonomic dysfunction. Pt's BP fluctuating and RR. Pt's family believe that he has been responding to verbal and physical stimuli. F/U (3rd) CT brain worsening cerebral edema and tonsillar herniation. Mother and brother informed. CV: Has been demonstrating episodes hypotension, likely autonomic deregulation secondary to brain injury. Cardiology assistance appreciated. Mechanical DVT prophylaxis. Unlikely PE (can't rule it out) but patient oxygenating well, no tachycardia. Pulmonary hypertension possibly unknowingly preexistent. Pulmonary: VDRF. Continue ventilator. Appreciate pulmonary medicine assistance. No expectoration/phlegm upon suctioning. Pulmonary medicine following. Mother and family still feel they have not exhausted all possibilities, in spite of multiple discussions about his meaningful recovery expectations and prognosis. Mother wants to proceed with tracheostomy and PEG. CM working for transfer [facility] and have it done there. GI: TF at 10 mL. Measure residual volume every 6 hrs. Hold TF if >150 mL. Tolerating. Continue TPN. Will assess tolerance over next 24 hrs to determine whether TF can be advanced. Continue BID GI prophylaxis. Hepatic shock, stable. Appreciate GI assistance. Will need PEG/gastrostomy. Mother and family continuing full care, in spite of multiple discussions about his prognosis. They still have strong nicko and beliefs he will recover. Arrangement . ARF/ATN secondary to hemorrhagic shock. Uremia and elevated crea.. Strict I&O. Stable u/o. Mora to gravity. Appreciate nephrology assistance. Replace/correct electrolytes. HD per nephrology. PC scheduled for today by IR. Lyndsey/HASEEB. Hemorrhagic shock resolved. Uremia, which may impact platelet function. No further sanguineous drainage from IV access, OGT or ETT suction tubing. Hgb stable 8.9. No evidence of active bleeding. Minimizing blood draw frequency to avoid worsening anemia. Will reserve bmp and ABG for daily and only if clinically indicated at any given moment. Repeat labs AM. CBC every other day or as clinically indicated. Appreciate hematology assistance. Repeat Bld Cx done, Remain negative. will D/C Zosyn. More than 14 day Tx. Complete 14 day treatment of Vancomycin. Endocrine: Tight glycemic control. Skin: Skin care and pressure ulcer precautions. Plan discussed with: Other (RN) My Orders My Orders Orders - JITENDRA ZAMORA MD Procedure Category Date Status Time Amino Acid PHA 02/13/25 In Process Infusion... W/Fat 22:00 Tpn Per Pharmacy YANET 02/13/25 In Process 22:00 Dietary Evaluation Review Recommendations by RD: PPN/TPN Comments: 1) Increase TPN rate to meet at least 75% of estimated daily needs 2) Advance to renal cardiac diet when medically feasible, pending ST approval 3) Follow-up with cardiology, pulmonology, nephrology, neurology, and gastroenterology 4) Continue to monitor I&O, labs, and skin integrity Expected Outcomes/Goals: 1) nutritional support to meet at least 75% of estimated daily needs 2) labs and wound to improve 3) diet to advance 4) gradual wt loss 5) f/u in 2-3 days JITENDRA ZAMORA MD Feb 14, 2025 08:38
[2025-02-14 09:32] LABS: Base Excess 0.5 mmol/L (-2.0-3.0)
[2025-02-14] MEDS: LIDOCAINE 2%HCL (LOCAL ANESTH.) INJ 20ML MDV ONE (11:18)
[2025-02-14] MEDS: HEPARIN SODIUM (PORCINE) 5000 UNITS/ML 1ML VIAL ONE (11:18)
--- NOTE | 2025-02-14 12:12 | DVH ---
XY Insertion of Venous Cath, HISTORY: TD CATH PL PROCEDURE: Informed consent was obtained. The patient was placed supine on the interventional table. A limited localization ultrasound of the right neck base was obtained. The right neck base and upper chest were prepped with chlorhexidine which was allowed to dry and draped in the usual sterile fashio n. Time out was performed. IV sedation was administered. The skin and the soft tissues were infiltrat ed with 1% Lidocaine. With real-time ultrasound guidance, the internal jugular vein was accessed with a micropuncture kit, and an image documenting patency was recorded to PACS. A subcutaneous tunneled tract was created from the right upper chest to the venotomy site. A 14.5 [place] Path, 19 cm lo ng hemodialysis catheter was advanced through the tunneled tract. Fluoroscopy was used to advance a guidewire through the internal jugular vein into the inferior vena cava. Following serial dilatation, a 15 [place] peel-away sheath was introduced, though which was adva nced the catheter into the right atrium. The catheter tip position was confirmed with fluoroscopy. Th ere was satisfactory flow in both lumens. The catheter lumens were flushed with saline and heparin wa s left indwelling in the catheter. A post-procedure image of the chest was obtained. The neck incisio n site was closed with a Vicryl suture and dressed sterilely. The catheter was sutured at the skin wagner rface and exit site also dressed sterilely. No immediate complication was identified. DAP 95 FLUOROSCOPY TIME: 1.1 minutes. SEDATION: Dr. Lyssa Guillen was personally responsible for the administration of moderate sedation during the procedure performed, including the use of an independent trained observer who had no other duties during the procedure. The drugs utilized were IV fentanyl and versed (see nursing log for details). The total time of supervision by the attending physician was approximately 30 minutes. FINDINGS: Widely patent right IJV. Post procedure image demonstrates smooth course of the hemodialysi s catheter with the tip in the right atrium. IMPRESSION: Successful placement of 14.5 burkin[place] Path, 19 cm long hemodialysis catheter through right tax intern al jugular vein. Plan: Please contact IR for removal when no longer needed.
--- NOTE | 2025-02-14 13:35 | DVHPN2 ---
Progress Note Date Seen: Feb 14, 2025 Has the PT tested + for MRSA If YES, has PT been informed?: No Medical Necessity Reason Pt with a Central, PICC or Fol: Yes The following are medically ne: Central Line, Mora Catheter Reason for mora catheter: Nakul. Abd Surgery Subjective Changes from previous H/P or p: No Changes Review of Systems: Deferred Objective vital signs Vital Sign Date Time Temp Pulse Resp B/P (MAP) Pulse Ox O2 Delivery O2 Flow Rate FiO2 02/14/25 11:00 98 17 98 02/14/25 10:30 30 02/14/25 10:00 Mechanical Ventilator+ 02/14/25 08:00 98.0 98.0 Total Intake and Output 02/13/25 02/13/25 02/14/25 15:00 23:00 07:00 Intake Total 572 ml 472 ml 514 ml Output Total 600 ml 650 ml Balance 572 ml -128 ml -136 ml medications Current Medications Medications Dose Ordered Sig/Serenity Route Start Time Stop Time Status Last Admin Dose Admin Midazolam HCl 50 ml @ 1 mls/hr Q24H IV 01/29/25 14:15 01/29/25 15:56 5 MLS/HR Phenylephrine HCl 250 ml @ 30 mls/hr Q8H20M IV 01/29/25 19:30 01/30/25 01:39 116.25 MLS/HR Levalbuterol HCl 0.625 mg Q4HR PRN NEB 01/29/25 20:00 02/13/25 22:12 0.625 MG Ipratropium [place] 0.5 mg Q4HPRN PRN NEB 01/29/25 20:00 02/13/25 22:12 0.5 MG Epinephrine HCl 250 ml @ 7.5 mls/hr Q24H IV 01/30/25 00:15 Vasopressin 20 units/Sodium Chloride 100 ml @ 9 mls/hr Q11H7M IV 01/30/25 07:30 02/03/25 13:09 9 MLS/HR Amino Acids 0 ml @ 0 mls/hr PER PHARMACY IV 02/01/25 11:15 Diagnostic Test (Pha) 1 strip Q6HR 02/01/25 18:00 02/14/25 05:47 1 STRIP Insulin Human Regular FOLLOW SLIDING SCALE Q6HR SC 02/01/25 18:00 02/02/25 11:36 2 UNITS Dextrose 50 ml UD IV 02/01/25 12:30 Epoetin Gunnar-epbx 4,000 unit MWF@2100 SC 02/03/25 21:00 02/12/25 23:44 4,000 UNIT Vancomycin HCl 0 ml @ 0 mls/hr UD IV 02/04/25 09:00 Sodium Chloride 10 ml QSHIFT@10,22 IV 02/04/25 22:00 02/14/25 09:32 10 ML Neomycin/ Polymyxin/ Bacitracin 1 applic DAILY TOP 02/06/25 10:00 02/14/25 09:32 1 APPLIC Bumetanide 2 mg BIDD IV 02/06/25 18:00 02/14/25 05:47 2 MG Norepinephrine Bitartrate 250 ml @ 0.938 mls/ hr Q24H IV 02/07/25 11:30 02/11/25 12:02 0.938 MLS/HR Artificial Tears 1 drop Q4HP PRN EACHEYE 02/08/25 07:30 Pantoprazole Sodium 40 mg Q12HR IV 02/08/25 22:00 02/14/25 09:32 40 MG Enteral Nutritional Formula 1,000 ml 20 NG 02/11/25 23:15 02/12/25 09:15 1,000 ML Fat Emulsion Intravenous 100 ml/Potassium Chloride 20 meq/ Multivitamins 10 ml/Chromium/ Copper/Manganese/ Zinc 1 ml/Amino Acids/Dextrose 1,521 ml @ 63 mls/hr Q24H9M IV 02/13/25 22:00 02/14/25 21:59 02/13/25 23:05 63 MLS/HR Fat Emulsion Intravenous 100 ml/Sodium Chloride 20 meq/ Potassium Acetate 20 meq/ Multivitamins 10 ml/Amino Acids/ Dextrose 1,525 ml @ 64 mls/hr [id number] IV 02/14/25 22:00 02/15/25 21:59 Examination: GENERAL:Abnormal, LUNGS:Abnormal, SKIN:Abnormal, NEURO:Abnormal laboratory and microbiology Laboratory Tests 02/14/25 03:30 Test 02/14/25 03:30 Range/Units Serum Glucose 115 H 74-106 mg/dL Microbiology Date/Time Source Procedure Growth Status 02/09/25 03:40 Blood Blood Culture - Final NO GROWTH AFTER 5 DAYS OF INCUBATION. Complete 02/02/25 22:00 Urine - [place] Urine Culture - Final Complete 01/30/25 00:00 Nose MRSA Screen - Final Complete 01/29/25 10:43 Sputum Gram Stain - Final Complete 01/29/25 10:43 Sputum Respiratory Culture - Final Complete Problem List/Assessment/Plan Problem List/Assessment/Plan Acute kidney injury likely ischemic ATN in the setting of shock, FeNa > 2%, nonoliguric Acute respiratory failure, intubated on ventilator Status post cardiac arrest Anoxic encephalopathy//brain herniation--> first MRI reported brain Hemodynamic shock from bleeding Acute blood loss anemia/post op Status post laparoscopic cholecystectomy on 01/28/25 [facility] Status post ex lap, 01/29 Positive troponins NSTEMI--likely demand ischemia Shock liver HD today for metabolic clearance. fluid removal as tolerated there is no evidence of renal recovery at this point will group home care is explained and expected recommend obtain tunnel catheter and outpatient dialysis at a chronic care facility. Local dialysis units will be unable to provide dialysis for ventilated patient per primary team surgery recs noted will monitor fluid balance YARY for anemia Plan discussed with: Other (nurse) Dietary Evaluation Review Recommendations by RD: PPN/TPN Comments: 1) Increase TPN rate to meet at least 75% of estimated daily needs 2) Advance to renal cardiac diet when medically feasible, pending ST approval 3) Follow-up with cardiology, pulmonology, nephrology, neurology, and gastroenterology 4) Continue to monitor I&O, labs, and skin integrity Expected Outcomes/Goals: 1) nutritional support to meet at least 75% of estimated daily needs 2) labs and wound to improve 3) diet to advance 4) gradual wt loss 5) f/u in 2-3 days Critical Care Time (mins): 33 SABINE ALLEN MD Feb 14, 2025 13:35
[2025-02-14] MEDS: ALBUMIN 25% 100 ML IV SCH (15:21)
--- NOTE | 2025-02-14 15:21 | DVHPNRES ---
Progress Note Date Seen: Feb 14, 2025 Resident Creating Document: ARNOLD MUHAMMAD RESDIENT Has the PT tested + for MRSA If YES, has PT been informed?: No Medical Necessity Reason Pt with a Central, PICC or Fol: Yes The following are medically ne: Central Line, Mora Catheter Reason for mora catheter: Nakul. Abd Surgery Subjective Review of Systems Patient seen and examined at the bedside. Patient is on mechanical ventilation, off from sedation. Objective vital signs Vital Sign Date Time Temp Pulse Resp B/P (MAP) Pulse Ox O2 Delivery O2 Flow Rate FiO2 02/14/25 14:20 85 15 97/56 (70) 100 30 02/14/25 10:00 Mechanical Ventilator+ 02/14/25 08:00 98.0 98.0 Total Intake and Output 02/13/25 02/13/25 02/14/25 15:00 23:00 07:00 Intake Total 572 ml 472 ml 514 ml Output Total 600 ml 650 ml Balance 572 ml -128 ml -136 ml medications Current Medications Medications Dose Ordered Sig/Serenity Route Start Time Stop Time Status Last Admin Dose Admin Midazolam HCl 50 ml @ 1 mls/hr Q24H IV 01/29/25 14:15 01/29/25 15:56 5 MLS/HR Phenylephrine HCl 250 ml @ 30 mls/hr Q8H20M IV 01/29/25 19:30 01/30/25 01:39 116.25 MLS/HR Levalbuterol HCl 0.625 mg Q4HR PRN NEB 01/29/25 20:00 02/13/25 22:12 0.625 MG Ipratropium [place] 0.5 mg Q4HPRN PRN NEB 01/29/25 20:00 02/13/25 22:12 0.5 MG Epinephrine HCl 250 ml @ 7.5 mls/hr Q24H IV 01/30/25 00:15 Vasopressin 20 units/Sodium Chloride 100 ml @ 9 mls/hr Q11H7M IV 01/30/25 07:30 02/03/25 13:09 9 MLS/HR Amino Acids 0 ml @ 0 mls/hr PER PHARMACY IV 02/01/25 11:15 Diagnostic Test (Pha) 1 strip Q6HR 02/01/25 18:00 02/14/25 05:47 1 STRIP Insulin Human Regular FOLLOW SLIDING SCALE Q6HR SC 02/01/25 18:00 02/02/25 11:36 2 UNITS Dextrose 50 ml UD IV 02/01/25 12:30 Epoetin Gunnar-epbx 4,000 unit MWF@2100 [place] 02/03/25 21:00 02/12/25 23:44 4,000 UNIT Vancomycin HCl 0 ml @ 0 mls/hr UD IV 02/04/25 09:00 Sodium Chloride 10 ml QSHIFT@10,22 IV 02/04/25 22:00 02/14/25 09:32 10 ML Neomycin/ Polymyxin/ Bacitracin 1 applic DAILY TOP 02/06/25 10:00 02/14/25 09:32 1 APPLIC Bumetanide 2 mg BIDD IV 02/06/25 18:00 02/14/25 05:47 2 MG Norepinephrine Bitartrate 250 ml @ 0.938 mls/ hr Q24H IV 02/07/25 11:30 02/11/25 12:02 0.938 MLS/HR Artificial Tears 1 drop Q4HP PRN EACHEYE 02/08/25 07:30 Pantoprazole Sodium 40 mg Q12HR IV 02/08/25 22:00 02/14/25 09:32 40 MG Enteral Nutritional Formula 1,000 ml 20 NG 02/11/25 23:15 02/12/25 09:15 1,000 ML Fat Emulsion Intravenous 100 ml/Potassium Chloride 20 meq/ Multivitamins 10 ml/Chromium/ Copper/Manganese/ Zinc 1 ml/Amino Acids/Dextrose 1,521 ml @ 63 mls/hr Q24H9M IV 02/13/25 22:00 02/14/25 21:59 02/13/25 23:05 63 MLS/HR Fat Emulsion Intravenous 100 ml/Sodium Chloride 20 meq/ Potassium Acetate 20 meq/ Multivitamins 10 ml/Amino Acids/ Dextrose 1,525 ml @ 64 mls/hr [id number] IV 02/14/25 22:00 02/15/25 21:59 Albumin Human 100 ml @ 100 mls/hr Q1HR IV 02/14/25 15:00 02/14/25 16:59 Examination General: RASS -5, afebrile, mucosae are moist Cardiovascular: Normal S1 and S2. No murmurs, gallops or rubs Respiratory: Mechanically assisted ventilation, equal bilateral airway entree. Clear lung sounds on auscultation Abdomen: Soft, nontender, no organomegaly, with surgical wound on abdomin MSK/skin: Mobilization of limbs cannot be evaluated. Skin is dry and warm. Neurological: Orientation cannot be assessed. Pupils are dilated and nonreactive to light, absent brainstem reflexes laboratory and microbiology Laboratory Tests 02/14/25 03:30 Test 02/14/25 03:30 Range/Units Serum Glucose 115 H 74-106 mg/dL Microbiology Date/Time Source Procedure Growth Status 02/09/25 03:40 Blood Blood Culture - Final NO GROWTH AFTER 5 DAYS OF INCUBATION. Complete 02/02/25 22:00 Urine - [place] Urine Culture - Final Complete 01/30/25 00:00 Nose MRSA Screen - Final Complete 01/29/25 10:43 Sputum Gram Stain - Final Complete 01/29/25 10:43 Sputum Respiratory Culture - Final Complete Labs and/or images reviewed: Labs reviewed by me, Image(s) reviewed by me Problem List/Assessment/Plan Problem List/Assessment/Plan This is a 24-year-old male with no significant past medical history underwent elective laparoscopic cholecystectomy on 01/[facility] at [facility] (due to cholelithiasis), on 2nd day postop at home became lethargic and subsequently coded. ROSC was achieved with CPR, abdominal CT scan showed intra-abdominal hematoma, underwent emergent laparotomy and drained about 500-750 thrombosed and dark blood. NEURO: Hypoxic encephalopathy, due to cardiac arrest Anoxic brain injury * RASS Score -5 * Head CT from 01/30 shows, Cerebellar tonsilar herniation. There is sulcal and ventricular effacement. The basal cisterns are effaced. Loss of mario-white matter differentiation is noted. * Head CT on 02/11 shows worsening diffuse cerebral edema in the setting of anoxic brain injury * BRNNM-brain imaging, shows absence blood flow, findings suggest brain in the appropriate clinical setting * Plan: Tracheostomy and transferred to LTAC CARDIOVASCULAR: NSTEMI possible type 2 Status post cardiac arrest Distributive shock (vasoplegia)/neurogenic shock/septic shock vasopressin * Cardiology on the board, recommended medical management * Echo from 01/30 shows,Technically limited study secondary to poor acoustic windows, normal LV size and function, 55-60% PULMONARY: Acute hypoxic respiratory failure, likely due to anoxic brain injury Cxr showed bilateral mild pulmonary vascular congestion GASTROINTESTINAL: Acute transaminitis secondary to hypovolemic shock Coagulopathy Hypoalbuminemia Status post laparoscopic cholecystectomy Status post exploratory laparotomy for hemoperitoneum GENITOURINARY: HARLEEN secondary to hypovolemic shock * Nephrology on the board, performed dialysis on 02/03 * IV Bumex drip METABOLIC: Severe anion gap metabolic acidosis due to lactic acidosis Hypernatremia Grade 2 obesity, BMI 35.7 kg per m2 Hypoglycemia HEME: Severe anemia, due to bleeding * Received 3 units of PRBC, 2 units of FFP and 1 unit of cryoprecipitate * Monitor H&H INFECTIOUS DISEASE: Leucocytosis Lactic acidosis * Urine culture, blood culture and respiratory culture shows no growth * On Zosyn and vancomycin DIET: TPN DVT prophylax: Hold GI prophylaxis: Protonix Code status: Full code LINES/DRAINS/ACCESS: ETT: Intubated on 01/29 IV access: Lt IJ placed on 01/29/25 left subclavian, tunneled dialysis catheter placed on 02/14 Drips: On Levophed Mora catheter: Placed on 01/29 DISPOSITION: ICU status Patient's status discussed with the patient's mother at the bedside. Critical care time spent more than 57 minutes, including patient care, chart review, and updating the family. Excluding any procedures. Case discussed with Dr. Kay Plan discussed with: Other Dietary Evaluation Review Recommendations by RD: PPN/TPN Comments: 1) Increase TPN rate to meet at least 75% of estimated daily needs 2) Advance to renal cardiac diet when medically feasible, pending ST approval 3) Follow-up with cardiology, pulmonology, nephrology, neurology, and gastroenterology 4) Continue to monitor I&O, labs, and skin integrity Expected Outcomes/Goals: 1) nutritional support to meet at least 75% of estimated daily needs 2) labs and wound to improve 3) diet to advance 4) gradual wt loss 5) f/u in 2-3 days Date of Service: Feb 14, 2025 Billing Provider: WILL JIMENEZ MD Common Visit Codes: NOT BILLABLE ARNOLD MUHAMMAD Feb 14, 2025 15:21 WILL JIMENEZ MD Feb 27, 2025 16:34
--- NOTE | 2025-02-14 20:50 | DVHPN2 ---
Progress Note Date Seen: Feb 14, 2025 Has the PT tested + for MRSA If YES, has PT been informed?: No Medical Necessity Reason Pt with a Central, PICC or Fol: Yes The following are medically ne: Central Line, Mora Catheter Reason for mora catheter: Nakul. Abd Surgery Subjective Review of Systems Pt's mother and brother at the bedside. Pt's mother extremely happy and relieved that her son was able to get a bed in the subacute care facility with inpatient HD. She's very grateful to her airport guide and Ivana TURNER for the efforts and helping her get this approved. Per RN last BM last night. Tolerating TF Objective vital signs Vital Sign Date Time Temp Pulse Resp B/P (MAP) Pulse Ox O2 Delivery O2 Flow Rate FiO2 02/14/25 20:30 133/85 02/14/25 20:08 94 18 99 30 02/14/25 18:00 98.0 98.0 02/14/25 18:00 Mechanical Ventilator+ Total Intake and Output 02/13/25 02/13/25 02/14/25 15:00 23:00 07:00 Intake Total 572 ml 472 ml 514 ml Output Total 600 ml 650 ml Balance 572 ml -128 ml -136 ml medications Current Medications Medications Dose Ordered Sig/Serenity Route Start Time Stop Time Status Last Admin Dose Admin Midazolam HCl 50 ml @ 1 mls/hr Q24H IV 01/29/25 14:15 01/29/25 15:56 5 MLS/HR Phenylephrine HCl 250 ml @ 30 mls/hr Q8H20M IV 01/29/25 19:30 01/30/25 01:39 116.25 MLS/HR Levalbuterol HCl 0.625 mg Q4HR PRN NEB 01/29/25 20:00 02/13/25 22:12 0.625 MG Ipratropium [place] 0.5 mg Q4HPRN PRN NEB 01/29/25 20:00 02/13/25 22:12 0.5 MG Epinephrine HCl 250 ml @ 7.5 mls/hr Q24H IV 01/30/25 00:15 Vasopressin 20 units/Sodium Chloride 100 ml @ 9 mls/hr Q11H7M IV 01/30/25 07:30 02/03/25 13:09 9 MLS/HR Amino Acids 0 ml @ 0 mls/hr PER PHARMACY IV 02/01/25 11:15 Diagnostic Test (Pha) 1 strip Q6HR 02/01/25 18:00 02/14/25 17:36 1 STRIP Insulin Human Regular FOLLOW SLIDING SCALE Q6HR SC 02/01/25 18:00 02/02/25 11:36 2 UNITS Dextrose 50 ml UD IV 02/01/25 12:30 Epoetin Gunnar-epbx 4,000 unit MWF@2100 CA 02/03/25 21:00 02/12/25 23:44 4,000 UNIT Vancomycin HCl 0 ml @ 0 mls/hr UD IV 02/04/25 09:00 Sodium Chloride 10 ml QSHIFT@10,22 IV 02/04/25 22:00 02/14/25 09:32 10 ML Neomycin/ Polymyxin/ Bacitracin 1 applic DAILY TOP 02/06/25 10:00 02/14/25 09:32 1 APPLIC Bumetanide 2 mg BIDD IV 02/06/25 18:00 02/14/25 17:37 2 MG Norepinephrine Bitartrate 250 ml @ 0.938 mls/ hr Q24H IV 02/07/25 11:30 02/14/25 15:38 0.938 MLS/HR Artificial Tears 1 drop Q4HP PRN EACHEYE 02/08/25 07:30 Pantoprazole Sodium 40 mg Q12HR IV 02/08/25 22:00 02/14/25 09:32 40 MG Enteral Nutritional Formula 1,000 ml 20 NG 02/11/25 23:15 02/12/25 09:15 1,000 ML Fat Emulsion Intravenous 100 ml/Potassium Chloride 20 meq/ Multivitamins 10 ml/Chromium/ Copper/Manganese/ Zinc 1 ml/Amino Acids/Dextrose 1,521 ml @ 63 mls/hr Q24H9M IV 02/13/25 22:00 02/14/25 21:59 02/13/25 23:05 63 MLS/HR Fat Emulsion Intravenous 100 ml/Sodium Chloride 20 meq/ Potassium Acetate 20 meq/ Multivitamins 10 ml/Amino Acids/ Dextrose 1,525 ml @ 64 mls/hr [id number] IV 02/14/25 22:00 02/15/25 21:59 Examination Neuro. Unchanged. Dilated fixed pupils. No reflexes. CV. Hr 90s. Hemodynamically unstable after HD.Levophed at 3 mcg/kg. SBP 133. Rn instructed to wean Levophed to off as tolerated. Right PICC and RIJ PC catheter exit sites remain C/D/I. Pulmonary: Intubated with mechanical ventilator support 500/14/30%/+7. ETT suction tubing clean. GI: TF at 10 mL/hr via OGT. Tolerating, No further sanguineous output. . Mora catheter in place. Clear yellow urine in collection bag Extremities: Deferred laboratory and microbiology Laboratory Tests 02/14/25 03:30 Test 02/14/25 03:30 Range/Units Serum Glucose 115 H 74-106 mg/dL Microbiology Date/Time Source Procedure Growth Status 02/09/25 03:40 Blood Blood Culture - Final NO GROWTH AFTER 5 DAYS OF INCUBATION. 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 CT revealed cerebral edema and tonsillar herniation.EEG no electric activity. Cerebral perfusion study confirmed no perfusion radiographically consistent with brain which was concordant with initial clinical diagnosis and EEG. However, pt continues demonstrating brainstem function as he is breathing over vent set rate of 14. RR. There seems to be autonomic dysfunction. Pt's BP fluctuating and RR. Pt's family believe that he has been responding to verbal and physical stimuli. F/U (3rd) CT brain worsening cerebral edema and tonsillar herniation. Mother and brother informed. CV: Has been demonstrating episodes hypotension, likely autonomic deregulation secondary to brain injury. Cardiology assistance appreciated. Mechanical DVT prophylaxis. Unlikely PE (can't rule it out) but patient oxygenating well, no tachycardia. Pulmonary hypertension possibly unknowingly preexistent. Pulmonary: VDRF. Continue ventilator. Appreciate pulmonary medicine assistance. No expectoration/phlegm upon suctioning. Pulmonary medicine following. Will try to schedule for tracheostomy on Monday. Pt approved for preferred [facility] facility with inpatient HD. GI: TF at 10 mL. Measure residual volume every 6 hrs. Hold TF if >150 mL. Tolerating. Continue TPN. Will assess tolerance tomorrow to determine whether TF can be advanced. Continue BID GI prophylaxis. Hepatic shock, stable. GI will evaluate for PEG. . ARF/ATN secondary to hemorrhagic shock. Uremia and elevated crea.. Strict I&O. Stable u/o. Mora to gravity. Appreciate nephrology assistance. Replace/correct electrolytes. HD per nephrology. PC placed by IR. Chaya SCV HD catheter removed. Heme/ID. Hemorrhagic shock resolved. Uremia, which may impact platelet function. No further sanguineous drainage from IV access, OGT or ETT suction tubing. Hgb stable 8.9. No evidence of active bleeding. Minimizing blood draw frequency to avoid worsening anemia. Will reserve bmp and ABG for daily and only if clinically indicated at any given moment. Repeat labs AM. CBC every other day or as clinically indicated. Appreciate hematology assistance. Repeat Bld Cx done, Remain negative. will D/C Zosyn. More than 14 day Tx. Complete 14 day treatment of Vancomycin. Endocrine: Tight glycemic control. Skin: Skin care and pressure ulcer precautions. Plan discussed with: Other (Mother, brother and RN) My Orders My Orders Orders - JITENDRA ZAMORA MD Procedure Category Date Status Time Amino Acid PHA 02/14/25 In Process Infusion... W/Fat 22:00 Comprehensive LAB 02/15/25 Verified Metabolic Panel 04:00 Phosphorus LAB 02/15/25 Verified 04:00 Magnesium LAB 02/15/25 Verified 04:00 Vancomycin,Random LAB 02/15/25 Verified 04:00 Tpn Per Pharmacy [facility] 02/14/25 In Process 22:00 Insertion Of Venous XY 02/14/25 Resulted Cath 11:55 * Retail Advertising Executive CONS 02/14/25 Transmitted Consult Dietary Evaluation Review Recommendations by RD: PPN/TPN Comments: 1) Increase TPN rate to meet at least 75% of estimated daily needs 2) Advance to renal cardiac diet when medically feasible, pending ST approval 3) Follow-up with cardiology, pulmonology, nephrology, neurology, and gastroenterology 4) Continue to monitor I&O, labs, and skin integrity Expected Outcomes/Goals: 1) nutritional support to meet at least 75% of estimated daily needs 2) labs and wound to improve 3) diet to advance 4) gradual wt loss 5) f/u in 2-3 days JITENDRA ZAMORA MD Feb 14, 2025 20:50
[2025-02-14] MEDS: TPN PER PHARMACY IV NR (22:00)
[2025-02-15] VITALS (76 sets, daily range): BP systolic 89–152; BP diastolic 36–105; PULSE 86–118; RESP 14–21; TEMP 98.1–99.1; O2SAT 94–100
[2025-02-15 04:22] LABS: Hematocrit 25.6 % (41.0-53.0); Hemoglobin 8.7 g/dL (13.5-17.5); Mean Corpuscular Hemoglobin 30.0 pg (28.0-32.0); Mean Corpuscular Volume 87.8 fL (80.0-100.0); Nucleated Red Blood Cells % 0.1 %
[2025-02-15 04:43] LABS: Alanine Aminotransferase 34 U/L (7-40); Albumin 3.4 g/dL (3.2-4.8); Anion Gap 14 (5-15); BUN/Creatinine Ratio 9.6 (10.0-20.0); Calcium 9.7 mg/dL (8.7-10.4); Carbon Dioxide 27 mmol/L (20-31); Glucose 93 mg/dL (74-106); Magnesium 2.1 mg/dL (1.6-2.6); Potassium 4.5 mmol/L (3.5-5.1); Sodium 138 mmol/L (136-145); Total Protein 7.0 g/dL (5.7-8.2)
[2025-02-15 04:47] LABS: Alkaline Phosphatase 594 U/L (46-116); Bilirubin, Total 4.2 mg/dL (0.2-1.0); Blood Urea Nitrogen 72 mg/dL (9-23); Chloride 97 mmol/L (98-107)
--- NOTE | 2025-02-15 05:23 | DVHPN2 ---
Progress Note Date Seen: Feb 15, 2025 Has the PT tested + for MRSA If YES, has PT been informed?: No Medical Necessity Reason Pt with a Central, PICC or Fol: Yes The following are medically ne: Central Line, Mora Catheter Reason for mora catheter: Nakul. Abd Surgery Subjective Review of Systems Per RN no changes other than labile pressure, from hypertension to normotension. TF had to be held. Residual volume 300 mL. Previously only 20 mL. Had a smear of a BM Objective vital signs Vital Sign Date Time Temp Pulse Resp B/P (MAP) Pulse Ox O2 Delivery O2 Flow Rate FiO2 02/15/25 04:11 87 18 101/54 (70) 98 30 02/15/25 04:00 Mechanical Ventilator+ 02/15/25 04:00 98.1 98.1 Total Intake and Output 02/14/25 02/14/25 02/15/25 15:00 23:00 07:00 Intake Total 504 ml 420.250 ml Output Total 500 ml Balance 504 ml -79.750 ml medications Current Medications Medications Dose Ordered Sig/Serenity Route Start Time Stop Time Status Last Admin Dose Admin Midazolam HCl 50 ml @ 1 mls/hr Q24H IV 01/29/25 14:15 01/29/25 15:56 5 MLS/HR Phenylephrine HCl 250 ml @ 30 mls/hr Q8H20M IV 01/29/25 19:30 01/30/25 01:39 116.25 MLS/HR Levalbuterol HCl 0.625 mg Q4HR PRN NEB 01/29/25 20:00 02/13/25 22:12 0.625 MG Ipratropium [place] 0.5 mg Q4HPRN PRN NEB 01/29/25 20:00 02/13/25 22:12 0.5 MG Epinephrine HCl 250 ml @ 7.5 mls/hr Q24H IV 01/30/25 00:15 Vasopressin 20 units/Sodium Chloride 100 ml @ 9 mls/hr Q11H7M IV 01/30/25 07:30 02/03/25 13:09 9 MLS/HR Amino Acids 0 ml @ 0 mls/hr PER PHARMACY IV 02/01/25 11:15 Diagnostic Test (Pha) 1 strip Q6HR 02/01/25 18:00 02/14/25 22:55 1 STRIP Insulin Human Regular FOLLOW SLIDING SCALE Q6HR PA 02/01/25 18:00 02/02/25 11:36 2 UNITS Dextrose 50 ml UD IV 02/01/25 12:30 Epoetin Gunnar-epbx 4,000 unit MWF@2100 PA 02/03/25 21:00 02/15/25 01:39 4,000 UNIT Vancomycin HCl 0 ml @ 0 mls/hr UD IV 02/04/25 09:00 Sodium Chloride 10 ml QSHIFT@10,22 IV 02/04/25 22:00 02/14/25 22:55 10 ML Neomycin/ Polymyxin/ Bacitracin 1 applic DAILY TOP 02/06/25 10:00 02/14/25 09:32 1 APPLIC Bumetanide 2 mg BIDD IV 02/06/25 18:00 02/14/25 17:37 2 MG Norepinephrine Bitartrate 250 ml @ 0.938 mls/ hr Q24H IV 02/07/25 11:30 02/14/25 15:38 0.938 MLS/HR Artificial Tears 1 drop Q4HP PRN EACHEYE 02/08/25 07:30 Pantoprazole Sodium 40 mg Q12HR IV 02/08/25 22:00 02/14/25 22:55 40 MG Enteral Nutritional Formula 1,000 ml 20 NG 02/11/25 23:15 02/12/25 09:15 1,000 ML Fat Emulsion Intravenous 100 ml/Sodium Chloride 20 meq/ Potassium Acetate 20 meq/ Multivitamins 10 ml/Amino Acids/ Dextrose 1,525 ml @ 64 mls/hr [id number] IV 02/14/25 22:00 02/15/25 21:59 02/14/25 22:00 64 MLS/HR Examination Neuro. Unchanged. Dilated fixed pupils. No reflexes. CV. Hr 80-90s. Hemodynamically stable.Right PC and PICC catheter exit sites remain C/D/I. Pulmonary: Intubated with mechanical ventilator support 500/14/30%/+7. RR 15 to 20/min. ETT suction tubing clean. GI: Soft, obese, distended and non tender. Incisions and dressing C/D/I. TF held. OGT. No further sanguineous output. . Mora catheter in place. Clear yellow urine in collection bag Extremities; No edema Resolved facial and neck edema. Mild orbital edema laboratory and microbiology Laboratory Tests 02/15/25 02:45 Test 02/15/25 02:45 Range/Units Serum Glucose 93 74-106 mg/dL Microbiology Date/Time Source Procedure Growth Status 02/09/25 03:40 Blood Blood Culture - Final NO GROWTH AFTER 5 DAYS OF INCUBATION. 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 CT revealed cerebral edema and tonsillar herniation.EEG no electric activity. Cerebral perfusion study confirmed no perfusion radiographically consistent with brain which was concordant with initial clinical diagnosis and EEG. However, pt continues demonstrating brainstem function as he is breathing over vent set rate of 14. RR. There seems to be autonomic dysfunction. Pt's BP fluctuating and RR. Pt's family believe that he has been responding to verbal and physical stimuli. F/U (3rd) CT brain worsening cerebral edema and tonsillar herniation. Mother and brother informed. CV: Has been demonstrating episodes hypotension, likely autonomic deregulation secondary to brain injury. Cardiology assistance appreciated. Mechanical DVT prophylaxis. Unlikely PE (can't rule it out) but patient oxygenating well, no tachycardia. Pulmonary hypertension possibly unknowingly preexistent. Pulmonary: VDRF. Continue ventilator. Appreciate pulmonary medicine assistance. No expectoration/phlegm upon suctioning. Pulmonary medicine following. Will try to schedule for tracheostomy on Monday. Pt approved for preferred subacute [facility] facility with inpatient HD. GI: TF held. High RV. OGT to suction. Continue TPN. Continue BID GI prophylaxis. Hepatic shock, GI will evaluate for PEG. . ARF/ATN secondary to hemorrhagic shock. Uremia and elevated crea.. Strict I&O. Stable u/o. Mora to gravity. Appreciate nephrology assistance. Replace/correct electrolytes. HD per nephrology. PC placed by IR. L SCV HD catheter removed. Heme/ID. Hemorrhagic shock resolved. Uremia, which may impact platelet function. No further sanguineous drainage from IV access, OGT or ETT suction tubing. Hgb stable 8.7. No evidence of active bleeding. Minimizing blood draw frequency to avoid worsening anemia. Error on previous note. Intent was for CBC to be held not BMP or ABG. Repeat labs AM. Appreciate hematology assistance. Repeat Bld Cx done, Remain negative. Complete 14 day treatment of Vancomycin. Endocrine: Tight glycemic control. Skin: Skin care and pressure ulcer precautions. Plan discussed with: Other (RN) My Orders My Orders Orders - JITEDNRA ZAMORA MD Procedure Category Date Status Time Amino Acid PHA 02/14/25 In Process Infusion... W/Fat 22:00 Tpn Per Pharmacy [facility] 02/14/25 In Process 22:00 Insertion Of Venous XY 02/14/25 Resulted Cath 11:55 * Commercial Diver CONS 02/14/25 Transmitted Consult Chest Portable XY 02/15/25 Taken 04:00 Dietary Evaluation Review Recommendations by RD: PPN/TPN Comments: 1) Increase TPN rate to meet at least 75% of estimated daily needs 2) Advance to renal cardiac diet when medically feasible, pending ST approval 3) Follow-up with cardiology, pulmonology, nephrology, neurology, and gastroenterology 4) Continue to monitor I&O, labs, and skin integrity Expected Outcomes/Goals: 1) nutritional support to meet at least 75% of estimated daily needs 2) labs and wound to improve 3) diet to advance 4) gradual wt loss 5) f/u in 2-3 days JITENDRA ZAMORA MD Feb 15, 2025 05:23
--- NOTE | 2025-02-15 05:34 | DVH ---
CHEST RADIOGRAPH Indication: INTUBATED Technique: 1 view Comparison: XY CHEST PORTABLE on DOS: 02/14/25, XY CHEST PORTABLE on DOS: 02/13/25, XY CHEST PORTABLE o n DOS: 02/12/25, XY CHEST PORTABLE on DOS: 02/11/25, XY CHEST PORTABLE on DOS: 02/10/25 FINDINGS: Lines and Tubes: Intervally placed right IJ catheter terminating over the superior cavoatrial junctio n. Right upper extremity PICC, endotracheal and enteric tubes are unchanged. Lungs/Pleura: Unchanged. Cardiomediastinum: Unchanged. Other: Unchanged. IMPRESSION: 1. Intervally placed right IJ catheter projects in appropriate remaining support devices are stable. 2. No other significant change from the previous study. Persistent low lung volumes with vascular document preparer microfilming wding and basilar atelectasis.
--- NOTE | 2025-02-15 08:30 | DVHPN ---
DATE: 02/15/2025 GASTROENTEROLOGY PROGRESS NOTE SUBJECTIVE: The patient is seen and examined. The patient remains in the intensive care unit. I reviewed the case with Dr. Ledesma, who is the admitting attending. The patient reportedly has placement for long-term acute care and is scheduled to undergo tracheostomy. GI consultation for consideration of endoscopic gastrostomy tube placement. The patient remains intubated and sedated, very poor neurologic function. PHYSICAL EXAMINATION: VITAL SIGNS: Temperature is afebrile, heart rate 91, respirations 18, blood pressure 101/47, O2 saturation 96% on 30% FiO2. GENERAL; This is a 24-year-old obese male. He is intubated, sedated, unresponsive to verbal and tactile stimuli. GASTROINTESTINAL: He has a scar in the right upper quadrant from a recent open cholecystectomy. EXTREMITIES: No clubbing or cyanosis. LABORATORY EXAM: White blood cell count 10.3, hemoglobin 8.7, hematocrit 25.6, MCV 87.8, platelet count 300,000. Basic metabolic panel within normal limits. BUN 72, creatinine 7.51. Liver transaminases showed alkaline phosphatase 594, ALT 34, AST 193, bilirubin 4.2, magnesium 2.1, phosphorus 5.0. No recent coags, which will be obtained. ASSESSMENT: * Status post laparoscopic cholecystectomy complicated by hemoperitoneum requiring surgical evacuation. * Acute hypoxic respiratory failure. * Cardiogenic shock. * Renal failure, currently on hemodialysis. * Hypoalbuminemia. * Leukocytosis. * Encephalopathy likely secondary to ischemia from cardiac arrest. * Cerebral edema. * Shock liver. RECOMMENDATIONS: * I will discuss the risks, benefits, and alternatives of the attempted esophagogastroduodenoscopy with percutaneous endoscopic gastrostomy tube placement with the patient's family. The risks that will be discussed include perforation, bleeding, infection, need for immediate surgery, and from all related complications. The patient's family will be given an option to choose between endoscopic placement and surgery. * We will obtain STAT PT/INR. * The patient is currently on vancomycin and Zosyn combination. No additional antibiotics will be given prior to PEG tube placement. * Once the patient's family is agreeable to gastrostomy tube placement, we will proceed with the attempted placement. If it cannot be done endoscopically, he will be deferred to general surgery. * Further recommendations based on the patient's family to agree with this procedure. DO KAPIL Garcia/DANA TID: [id number] RECEIPT: [id number]
[2025-02-15 08:56] LABS: INR 1.09 (0.9-1.15); Prothrombin Time 11.5 sec (9.3-11.8)
--- NOTE | 2025-02-15 10:39 | DVHPN2 ---
Progress Note - Dictate Date Seen: Feb 15, 2025 Has the PT tested + for MRSA If YES, has PT been informed?: No Medical Necessity Reason Pt with a Central, PICC or Fol: Yes The following are medically ne: Central Line, Mora Catheter Reason for mora catheter: Nakul. Abd Surgery vital signs Vital Sign Date Time Temp Pulse Resp B/P (MAP) Pulse Ox O2 Delivery O2 Flow Rate FiO2 02/15/25 10:00 100 02/15/25 10:00 14 100 Mechanical Ventilator+ 30 30 02/15/25 09:43 99/57 (71) 02/15/25 08:00 98.9 98.9 Total Intake and Output 02/14/25 02/14/25 02/15/25 15:00 23:00 07:00 Intake Total 504 ml 420.250 ml 20 ml Output Total 500 ml 550 ml Balance 504 ml -79.750 ml -530 ml medications Current Medications Medications Dose Ordered Sig/Serenity Route Start Time Stop Time Status Last Admin Dose Admin Midazolam HCl 50 ml @ 1 mls/hr Q24H IV 01/29/25 14:15 01/29/25 15:56 5 MLS/HR Phenylephrine HCl 250 ml @ 30 mls/hr Q8H20M IV 01/29/25 19:30 01/30/25 01:39 116.25 MLS/HR Levalbuterol HCl 0.625 mg Q4HR PRN NEB 01/29/25 20:00 02/13/25 22:12 0.625 MG Ipratropium [place] 0.5 mg Q4HPRN PRN NEB 01/29/25 20:00 02/13/25 22:12 0.5 MG Epinephrine HCl 250 ml @ 7.5 mls/hr Q24H IV 01/30/25 00:15 Vasopressin 20 units/Sodium Chloride 100 ml @ 9 mls/hr Q11H7M IV 01/30/25 07:30 02/03/25 13:09 9 MLS/HR Amino Acids 0 ml @ 0 mls/hr PER PHARMACY IV 02/01/25 11:15 Diagnostic Test (Pha) 1 strip Q6HR 02/01/25 18:00 02/14/25 22:55 1 STRIP Insulin Human Regular FOLLOW SLIDING SCALE Q6HR SC 02/01/25 18:00 02/02/25 11:36 2 UNITS Dextrose 50 ml UD IV 02/01/25 12:30 Epoetin Gunnar-epbx 4,000 unit MWF@2100 SC 02/03/25 21:00 02/15/25 01:39 4,000 UNIT Vancomycin HCl 0 ml @ 0 mls/hr UD IV 02/04/25 09:00 Sodium Chloride 10 ml QSHIFT@10,22 IV 02/04/25 22:00 02/15/25 09:07 10 ML Neomycin/ Polymyxin/ Bacitracin 1 applic DAILY TOP 02/06/25 10:00 02/15/25 09:06 1 APPLIC Bumetanide 2 mg BIDD IV 02/06/25 18:00 02/15/25 06:04 2 MG Norepinephrine Bitartrate 250 ml @ 0.938 mls/ hr Q24H IV 02/07/25 11:30 02/14/25 15:38 0.938 MLS/HR Artificial Tears 1 drop Q4HP PRN EACHEYE 02/08/25 07:30 Pantoprazole Sodium 40 mg Q12HR IV 02/08/25 22:00 02/15/25 09:06 40 MG Enteral Nutritional Formula 1,000 ml 20 NG 02/11/25 23:15 02/12/25 09:15 1,000 ML Fat Emulsion Intravenous 100 ml/Sodium Chloride 20 meq/ Potassium Acetate 20 meq/ Multivitamins 10 ml/Amino Acids/ Dextrose 1,525 ml @ 64 mls/hr [id number] IV 02/14/25 22:00 02/15/25 21:59 02/14/25 22:00 64 MLS/HR Fat Emulsion Intravenous 100 ml/Sodium Chloride 40 meq/ Magnesium Sulfate 2 meq/ Multivitamins 10 ml/Amino Acids/ Dextrose 1,520.5 ml @ 63 mls/hr Q24H9M IV 02/15/25 22:00 02/16/25 21:59 laboratory and microbiology Laboratory Tests 02/15/25 02:45 Test 02/15/25 02:45 Range/Units Serum Glucose 93 74-106 mg/dL Assessment/Plan Still in ICU. On vent support. Blood pressure stable. Off any pressure support. No gross higher brain reflexes. Pupils are dilated and fixed. Anoxic/Hypoxic Encephalopathy No reported arrhythmia overnight Family are contemplating Trach/PEG Echocardiogram revealed no WMA and also revealed good EF. It also revealed increased Pulmonary Artery Pressure in favor of component of Pulmonary Hypertension. s/p Hemodialysis Received blood and platelet transfusion repeatedly Patient is a 24-year-old gentleman who was originally brought to the hospital for post arrest. Patient is seen in postop area. Patient is intubated and on multiple pressor supports. Patient is not source of history. Information was obtained by reviewing the chart, talking to patient's family/mother and communicating with staff and reviewing outside records ([facility]). Patient did have elective outpatient laparoscopic cholecystectomy in [facility] on January 28 2025. As per mother, after going home, patient was feeling very hungry and was eating and drinking a lot. He started feeling abdominal pain with nausea at night and in the morning was short of breath. As per mother: patient has stopped breathing in the morning and family called 911. As per mother, as per guidance of 911, family started CPR until EMS arrived. Patient was intubated and was brought to the hospital by EMS. Since arrival to [facility], patient was seen by surgeon who took the patient to operating room and performed laparotomy (there was hepatic hematoma). Postoperatively, the patient has remained hypotensive. There is signs for multiorgan involvement. Patient was not alert and did not complain of any chest pains. Labs revealed increased troponin. Cardiology is involved for cardiac aspects of care and abnormal troponin. First available EKG reveals sinus tachycardia with no specific ST-T changes. Telemetry had revealed sinus tachycardia throughout the stay. Patient is found to have significant anemia and is receiving blood transfusion at the time of evaluation. It is of note that at the time of evaluation patient does not have any reflexes. Intubated. Mucosa pale. Dilated and fixed pupils, Scattered rhonchi in the lungs. Cardiac: Tachycardic. No murmur. Abdomen is covered by dressing. Extremities do not reveal any edema. Dorsalis pedis is 1+ bilateral. Patient does not respond to any stimuli. Reported past medical history includes asthma and obesity. Reportedly, on January 23, 2025: Patient presented to [facility] for abdominal pain/nausea/vomiting. At that point the problems were ongoing for few weeks. In [facility], CT of the abdomen and MRCP were performed. Patient was seen by GI/surgery. Patient was found to have gallstones. Patient was discharged and later on January 28, 2025 presented back to [facility] for elective laparoscopy cholecystectomy. Patient was discharged home from [facility] after laparoscopic cholecystectomy. As per mother, patient does not have baseline history of any cardiac history. As per mother, patient was using marijuana. Mother denies any previous substance abuse besides marijuana. No specific family history is reported On January 23, 2025, labs in [facility] revealed creatinine of 0.84, hemoglobin of 15.2 and troponin (high sensitive) of <3. At that point EKG was normal WBC: 20.1 - 19.0 - 22.7 - 20.6 - 28.4 - 20.3 - 21.0 - 25.2 - 29.8 - 29.5 - 29.0 - 26.2 - 21.7 - 19.7 - 17.7 - 15.3 - 12.2 - 10.5 - 11.2 - 13.0 - 10.7 - 9.0 - 9.0 - 10.3 - 10.3 Hemoglobin: 8.3 - 6.5 - 12.1 - 11.1 - 12.1 - 9.3 - 9.2 - 9.1 - 8.4 - 9.0 - 9.5 - 8.8 - 8.4 - 8.0 - 9.7 - 9.6 - 9.8 - 9.6 - 9.7 - 9.8 - 9.1 - 8.5 - 8.8 - 8.9 - 8.7 Fibrinogen: 108 - 316 - 537 - 689 - >860 Creatinine: 4.02 - 3.78 - 3.90 - 3.95 - 4.34 - 5.44 - 6.05 - 6.73 - 7.31 - 7.77 - 6.64 - 7.30 - 4.91 - 5.32 - 7.40 - 5.98 - 7.66 - 6.28 - 7.71 - 8.67 - 6.87 - 5.62 - 7.59 - 8.95 - 7.51 Potassium: 5.6 - 4.6 - 4.8 - 3.9 - 2.9 - 2.9 - 3.6 - 3.8 - 4.9 - 5.4 - 6.0 - 5.1 - 5.3 - 6.1 - 6.0 - 4.6 - 4.4 - 4.3 - 3.5 - 3.4 - 3.7 - 4.5 - 5.7 - 5.2 - 4.0 - 3.8 - 4.1 - 4.5 AST/ALT: 676/700 - 2327/6 - 4636/2521 - -/1995 - 2500/1989 - 1780/1821 - 808/995 - 586/735 - 456/444 - 312/290 - 237/163 - 215/125 - 190/87 - 200/74 - 202/66 - 189/53 - 186/44 - 186/45 - 192/38 - 193/34 Lactic acid: 17.9 - 17.2 - 11.4 Troponin (high sensitive): 4088 - 4253 - 6586 - 3556 - 9894 TSH: 11.05 Urine Toxicology: positive for Fentanyl and Benzodiazepine Chest x-ray revealed: Lines and Tubes: Endotracheal tube projects 2.2 cm above the meghan. Right internal jugular central venous catheter tip projects over superior vena cava. Lungs: No focal consolidation. Low lung volumes. Pleura: No effusion. No pneumothorax. Cardiomediastinal contours: Unremarkable Bones: No acute osseous abnormality. IMPRESSION: Lines and tubes as above. Low lung volumes. Repeat chest x-ray revealed: IMPRESSION: Lines and tubes in satisfactory position. Mild increased pulmonary vascular congestion Repeat chest xry revealed: IMPRESSION: Lines and tubes in satisfactory position. Mild increased pulmonary vascular congestion Repeat chest xry revealed: IMPRESSION: 1. Low lung volumes with concomitant crowding of the pulmonary vasculature. 2. No evidence of focal consolidation. 3. Lines and tubes unchanged. Repeat chest xry revealed: IMPRESSION: 1. Slight interval retraction of the endotracheal tube such that the tip now projects approximately 4.7 cm above the level of the meghan. Remaining lines and tubes unchanged. 2. Otherwise no significant change compared to prior exam. Repeat chest xry revealed: IMPRESSION: 1. Slight interval advancement of endotracheal tube such that the tip now projects approximately 1.7 cm above the level of the meghan. Remaining lines and tubes unchanged. 2. Otherwise no significant change compared to prior exam. Repeat chest xry revealed: IMPRESSION: 1. Slight interval retraction of the endotracheal tube such that the tip now projects approximately 3.3 cm above the level of the meghan. Remaining lines and tubes unchanged. 2. No evidence of acute cardiopulmonary process. Repeat chest xry revealed: IMPRESSION: 1. Endotracheal tube in appropriate position. Remaining lines and tubes unchanged. 2. No evidence of acute cardiopulmonary process. Repeat chest xry revealed: IMPRESSION: 1. Small right pleural effusion. 2. Lines and tubes unchanged. Repeat chest xry revealed: IMPRESSION: 1. Small right pleural effusion. 2. Lines and tubes unchanged. Repeat chest xry revealed: IMPRESSION: 1. Small bilateral pleural effusions. 2. Lines and tubes unchanged. Repeat chest xry revealed: IMPRESSION: 1. Slight interval advancement of the endotracheal tube. Remaining lines and tubes unchanged. 2. No evidence of acute cardiopulmonary process. Repeat chest xry revealed: IMPRESSION: 1. Slight interval retraction of the endotracheal tube such that the tip now projects approximately 3.3 cm above the level of the meghan. Remaining lines and tubes unchanged. 2. No evidence of acute cardiopulmonary process. Repeat chest xry revealed: Bowel gas pattern is unremarkable. Enteric tube tip projects over the expected region of the stomach. The lung bases demonstrates bibasilar atelectasis. The lower pelvis is collimated from field of view. No acute osseous abnormality identified. Repeat chest xry revealed: Lines and Tubes: Endotracheal tube tip projects approximately 5.1 cm above the level of the meghan. Enteric catheter terminates within the gastric lumen. Right peripherally inserted central catheter tip and left subclavian central venous catheter tip project over the distal superior vena cava. Lungs: Clear Pleura: No effusion. No pneumothorax. Cardiomediastinal contours: Unremarkable Bones: Unremarkable IMPRESSION: 1. No radiographic evidence of acute cardiopulmonary abnormality. 2. Lines and tubes as above. Repeat chest xry revealed: IMPRESSION: 1. Stable position of the support lines and tubes. 2. Bibasilar airspace disease which may reflect atelectasis and/or pneumonia. Possible small bilateral pleural effusions. Repeat chest xry revealed: IMPRESSION: 1. Lines and tubes unchanged. 2. Persistently diminished lung volumes with concomitant exaggeration of the pulmonary vasculature. No evidence of acute cardiopulmonary process. Repeat chest xry revealed: IMPRESSION: 1. No acute cardiopulmonary disease. 2. Lines and tubes as above. Repeat chest xry revealed: IMPRESSION: 1. Intervally placed right IJ catheter projects in appropriate remaining support devices are stable.2. No other significant change from the previous study. Persistent low lung volumes with vascular crowding and basilar atelectasis. Brain scan revealed: FINDINGS: Absence of cerebral blood flow is noted along with no brain parenchymal radiotracer uptake. Increased activity is seen in the central face likely representing vascular shunting consistent with the so-called "hot nose" sign. Findings suggest brain however clinical correlation is necessary. IMPRESSION: Findings described above, which would be consistent with brain in the appropriate clinical setting, however clinical correlation is needed. CT of the chest/abdomen/pelvis revealed: IMPRESSION: 1. Hepatic hematoma measuring up to approximately 8.6 cm in greatest dimension, as described above, with hemorrhage extending beyond the liver capsule and into the right pericolic gutter as well as into the pelvis. No definite active arterial bleeding is seen on this exam, although limited evaluation due to the timing of contrast, as this was not a CTA exam. 2. Postsurgical changes of cholecystectomy. 3. Dilated fluid-filled small bowel loops, may be due to postoperative ileus. No small bowel obstruction. 4. Small volume pneumoperitoneum, likely due to recent surgery. Small volume of gas are seen in the upper ventral abdomen from the recent surgery. 5. Dependent atelectasis in the lower lobes. Otherwise, no acute disease in the chest. 6. Endotracheal tube and enteric tube in place. 7. Atrophic right kidney incidentally noted. 8. Additional findings as described above. Critical findings Critical Result: Acute hepatic hematoma with hemorrhage extending beyond the liver capsule into the adjacent portions of the abdomen and into the pelvis as detailed above. Repeat CT of chest/abdomen/pelvis revealed: There is limited interpretation of the chest, abdomen and pelvis without administration of intravenous contrast. Endotracheal tube tip terminates just at the meghan / left main bronchus. Diffuse bilateral pulmonary airspace consolidation bilaterally significantly increased. Bilateral lower lobe lobar consolidation/ atelectasis, increased from prior. Small bilateral pleural effusions. There is extensive edema/ stranding within the upper anterior chest, neck region/supraclavicular region. There is some hyperdensity within this region which could represent components of hematoma / blood products. Heterogeneous appearance of the thyroid gland. Right IJ catheter terminating at the cavoatrial junction. Adrenal glands unremarkable in shape. Perisplenic hematoma. Interval postsurgical changes in the right upper quadrant of the abdomen. There appears to be surgicel/gaseous collection within the previous hematoma cavity, likely representing surgicel. There is a radiopaque density within the resection cavity as well which measures 6.2 x 4.6 cm.. Postoperative changes of the right anterior abdomen with soft tissue emphysema. Small amount of pneumoperitoneum Surgical drainage catheter terminating in the right upper quadrant of the abdomen Right renal parenchymal atrophy. Left kidney demonstrates perinephric edema / stranding. No left hydronephrosis. Nasogastric tube projects towards the distal stomach. Moderate distention small bowel loops. Rectal catheter. Moderate distention of the large bowel loops. Normal appendix. Abdominal aorta normal in caliber. Small amount of ascites fluid/ mesenteric edema. Bladder decompressed by Mora catheter. Soft tissue edema /anasarca. Mesenteric edema. Small amount of ascites fluid. The osseous structures are stable. IMPRESSION: Limited evaluation without contrast. Interval evacuation of the right upper quadrant hematoma. Surgicel within the resection cavity. No significant interval development of new hematoma. There are 2 radiopaque lap pads within the resection cavity . Findings reviewed with Dr. Ledesma at 11:51 a.m. on 01/30/2025 Perisplenic hematoma, similar to previous examination. Extensive bilateral pulmonary airspace consolidation, significantly increased from previous examination. Small bilateral pleural effusions. Right upper quadrant drainage catheter. Pneumoperitoneum. Soft tissue edema / anasarca. Small amount of ascites fluid/ mesenteric edema. Extensive edema within the anterior chest, neck region. Heterogeneous appearance thyroid gland. Other findings as described. CT of the head revealed: IMPRESSION: 1. No evidence of acute intracranial abnormality. Repeat CT of head revealed: FINDINGS: Cerebellar tonsilar herniation. There is sulcal and ventricular effacement. The basal cisterns are effaced. Loss of mario-white matter differentiation is noted. The skull and visible facial bones are intact. The paranasal sinuses, mastoid air cells and middle ear cavities are well-aerated. The soft tissues of the scalp are unremarkable. IMPRESSION: Diffuse cerebral edema with cerebellar tonsillar herniation. Recommend MRI brain for further evaluation. Repeat CT of head revealed: FINDINGS: There is diffuse low attenuation throughout the brain with increased effacement of the ventricles and complete sulcal effacement. There is cerebellar tonsillar herniation. The orbits are normal. There is moderate mucosal thickening within the paranasal sinuses and mastoid air cells. The soft tissues and osseous structures appear within normal limits. IMPRESSION: 1. Findings as above suggesting worsening diffuse cerebral edema in the setting of anoxic brain injury in the given clinical setting. Further clinical correlation is suggested. CT of Neck revealed: IMPRESSION: Limited evaluation without contrast. Extensive soft tissue edema within the neck extending into the anterior / upper chest and anterior mediastinum . Retropharyngeal edema. Heterogeneous appearance of the thyroid gland. Inferior cerebellar tonsillar herniation better seen on the prior CT Renal Ultrasound revealed: IMPRESSION: 1. Right kidney not visible. 2. Left kidney is enlarged. 3. No hydronephrosis. Venous duplex of lower ext revealed: IMPRESSION: NO SONOGRAPHIC EVIDENCE FOR DEEP VENOUS THROMBOSIS IN THE RIGHT LOWER EXTREMITY VEINS. EEG reported: This is a remarkably abnormal EEG, this EEG seen in severe cerebral dysfunction due to metabolic/hypoxic encephalopathy or medication effects, unless this is caused by reversible etiology, this EEG is suggestive of a poor prognosis for meaningful recovery, please correlate clinically. Arrival EKG revealed sinus tachycardia with nonspecific ST-T changes Tele reveals sinus tachycardia Echocardiogram revealed: Technically limited study secondary to poor acoustic windows. Left ventricle: Left ventricle was normal-sized with normal systolic function. LVEF was 55-60%. No gross wall motion abnormality was seen. Right ventricle was mildly dilated with normal systolic function. Left atrium was normal-sized. Right atrium was mildly dilated. Aortic valve: Aortic valve was not well visualized. There was no aortic insufficiency/stenosis. There was no mitral regurgitation. There was trace tricuspid regurgitation. Pulmonary valve was not well visualized. IVC was not visualized. Right ventricular systolic pressure was assessed around 48 mm Hg. There was no pericardial effusion. Patient is a 24-year-old gentleman who presented with post arrest. It seems that the patient had hemorrhagic (intra-abdominal) presentation. Patient did have elective laparoscopic cholecystectomy the day before presentation. On the day of presentation, the patient was taken back to operating room and this time Laparotomy was done for hepatic hematoma. Patient does have multiorgan involvement. Clinically there is no brainstem reflexes. Shock liver/acute renal failure is considered. Troponin has been high. EKG did not reveal any STEMI. Presentation could be high troponin secondary to demand physiology. Patient does not have any risk factors for baseline coronary artery disease. In ideal scenario, ischemic workup/cardiac catheterization could be more revealing. Unfortunately, the patient does have acute renal failure which could be worsened by cardiac catheterization at this point. As there was no higher brain functions the suggestion is to wait and see if patient regains any higher brain function. It is of note that during cardiac catheterization, the patient may need some anticoagulation/antiplatelets. At this point patient is having significant anemia/bleeding and receiving blood transfusion and holding off of scenario forcing Anticoagulation/antiplatelets is advised. I had a long discussion with family members and Mother (repeatedly). Clinically patient has multiorgan failure. Secondary to active bleeding, we will avoid anticoagulation/antiplatelets for now. Being managed in ICU. Was taken to OR repeatedly. Still no reflexes. Echocardiogram revealed no WMA and also revealed good EF. It also revealed increased Pulmonary Artery Pressure in favor of component of Pulmonary Hypertension. Review of Echo images revealed good right ventricular systolic function. Not typical for Pulmonary Emboli. Still, PE cannot be ruled out. If PE is ruled out, then it is possible that patient had Pulmonary Hypertension from before (Baseline history of Asthma may actually reflect it). s/p PRBC transfusion (multiple). Being followed by Surgery, Nephrology, Hematology, Pulmonary, Neurology and GI. . Repeat imaging revealed cerebellar tonsillar herniation. Neurology diagnosed Hypoxic/Metabolic Encephalopathy also. EEG findings question meaningful recovery. Neurology declared patient: brain . Neurology second opinion was in favor of Anoxic/Hypoxic Encephalopathy. Repeat imaging of brain revealed worsening diffuse cerebral edema and also again revealed cerebellar tonsillar herniation. Family are contemplating Trach/PEG. Patient is seen by GI s/ p Arrest Intra-abdominal bleeding Hepatic hematoma Multiorgan failure, due to shock Shock liver Lactic Acidosis Acute renal failure Acute respiratory failure, on vent support Status post laparotomy Status post laparoscopic cholecystectomy Abnormal troponin, evaluated to reflect possible demand physiology History of gallstones History of asthma Obesity History of marijuana abuse Consumptive Coagulopathy / DIC Pulmonary Hypertension Cerebellar tonsillar Herniation. Encephalopathy, hypoxic/metabolic Renal failure, started on hemodialysis Brain scan questions brain Anoxic Encephalopathy Cardiac suggestion for management: Manage in ICU Follow-up electrolytes and kidney function tests and correct abnormalities Evaluation and management of respiratory failure as per Pulmonary Evaluation and management of Cerebellar tonsillar herniation and worsening cerebral edema as per Neurology/surgery/primary team V/Q scan could not be completed Anoxic/Hypoxic Encephalopathy Echocardiogram revealed no WMA and also revealed good EF. It also revealed increased Pulmonary Artery Pressure in favor of component of Pulmonary Hypertension. Hematology follow up (to comment on prophylaxis / treatment of Pulmonary Emboli) Surgical follow up Nephrology follow up (started on hemodialysis) and Hematology follow up Family are contemplating Trach/PEG. Patient is seen by GI Cardiac vidales, moderate risk patient for Tracheostomy and PEG placement procedures. Avoid Hypotension. DVT prophylaxis as per primary team (compression stocking Vs Lovenox..) Long-term prognosis depends on the above and most importantly regaining of the higher brain function: looks very grim Ischemic workup may be considered only after regaining higher brain function or any special change in clinical presentation Further evaluation and management depends on the above and clinical course A total of 75 minutes was spent reviewing the patient record, examining the patient, making a diagnostic and therapeutic plan, discussing this plan with medical personnel, following up on diagnostic studies and following the patient for clinical stability excluding any and all procedures. At least 50% of this time was spent in direct, [id number] contact. Thank you for allowing me to participate in this patient's care. Further recommendations will depend on patient's clinical course. Please do not hesitate to contact me if you have any questions or concerns. This medical document was created using electronic medical record system with [employer] computerized dictation system. Although this document has been carefully reviewed, there may still be some phonetic and typographical errors. These areas are purely typographical due to the imperfection of the software programs, and do not reflect any compromise in the patient's medical care. Dietary Evaluation Review Recommendations by RD: PPN/TPN Comments: 1) Increase TPN rate to meet at least 75% of estimated daily needs 2) Advance to renal cardiac diet when medically feasible, pending ST approval 3) Follow-up with cardiology, pulmonology, nephrology, neurology, and gastroenterology 4) Continue to monitor I&O, labs, and skin integrity Expected Outcomes/Goals: 1) nutritional support to meet at least 75% of estimated daily needs 2) labs and wound to improve 3) diet to advance 4) gradual wt loss 5) f/u in 2-3 days Plan discussed with: Other (nurse and mother (at bedside)) KATHLEEN COHEN MD Feb 15, 2025 10:39
--- NOTE | 2025-02-15 11:02 | DVHPN2 ---
Progress Note Date Seen: Feb 15, 2025 Has the PT tested + for MRSA If YES, has PT been informed?: No Medical Necessity Reason Pt with a Central, PICC or Fol: Yes The following are medically ne: Central Line, Mora Catheter Reason for mora catheter: Nakul. Abd Surgery Subjective Review of Systems: Deferred Objective vital signs Vital Sign Date Time Temp Pulse Resp B/P (MAP) Pulse Ox O2 Delivery O2 Flow Rate FiO2 02/15/25 10:00 100 02/15/25 10:00 14 100 Mechanical Ventilator+ 30 30 02/15/25 09:43 99/57 (71) 02/15/25 08:00 98.9 98.9 Total Intake and Output 02/14/25 02/14/25 02/15/25 15:00 23:00 07:00 Intake Total 504 ml 420.250 ml 20 ml Output Total 500 ml 550 ml Balance 504 ml -79.750 ml -530 ml medications Current Medications Medications Dose Ordered Sig/Serenity Route Start Time Stop Time Status Last Admin Dose Admin Midazolam HCl 50 ml @ 1 mls/hr Q24H IV 01/29/25 14:15 01/29/25 15:56 5 MLS/HR Phenylephrine HCl 250 ml @ 30 mls/hr Q8H20M IV 01/29/25 19:30 01/30/25 01:39 116.25 MLS/HR Levalbuterol HCl 0.625 mg Q4HR PRN NEB 01/29/25 20:00 02/13/25 22:12 0.625 MG Ipratropium [place] 0.5 mg Q4HPRN PRN NEB 01/29/25 20:00 02/13/25 22:12 0.5 MG Epinephrine HCl 250 ml @ 7.5 mls/hr Q24H IV 01/30/25 00:15 Vasopressin 20 units/Sodium Chloride 100 ml @ 9 mls/hr Q11H7M IV 01/30/25 07:30 02/03/25 13:09 9 MLS/HR Amino Acids 0 ml @ 0 mls/hr PER PHARMACY IV 02/01/25 11:15 Diagnostic Test (Pha) 1 strip Q6HR 02/01/25 18:00 02/14/25 22:55 1 STRIP Insulin Human Regular FOLLOW SLIDING SCALE Q6HR SC 02/01/25 18:00 02/02/25 11:36 2 UNITS Dextrose 50 ml UD IV 02/01/25 12:30 Epoetin Gunnar-epbx 4,000 unit MWF@2100 SC 02/03/25 21:00 02/15/25 01:39 4,000 UNIT Vancomycin HCl 0 ml @ 0 mls/hr UD IV 02/04/25 09:00 Sodium Chloride 10 ml QSHIFT@10,22 IV 02/04/25 22:00 02/15/25 09:07 10 ML Neomycin/ Polymyxin/ Bacitracin 1 applic DAILY TOP 02/06/25 10:00 02/15/25 09:06 1 APPLIC Bumetanide 2 mg BIDD IV 02/06/25 18:00 02/15/25 06:04 2 MG Norepinephrine Bitartrate 250 ml @ 0.938 mls/ hr Q24H IV 02/07/25 11:30 02/14/25 15:38 0.938 MLS/HR Artificial Tears 1 drop Q4HP PRN EACHEYE 02/08/25 07:30 Pantoprazole Sodium 40 mg Q12HR IV 02/08/25 22:00 02/15/25 09:06 40 MG Enteral Nutritional Formula 1,000 ml 20 NG 02/11/25 23:15 02/12/25 09:15 1,000 ML Fat Emulsion Intravenous 100 ml/Sodium Chloride 20 meq/ Potassium Acetate 20 meq/ Multivitamins 10 ml/Amino Acids/ Dextrose 1,525 ml @ 64 mls/hr [id number] IV 02/14/25 22:00 02/15/25 21:59 02/14/25 22:00 64 MLS/HR Fat Emulsion Intravenous 100 ml/Sodium Chloride 40 meq/ Magnesium Sulfate 2 meq/ Multivitamins 10 ml/Amino Acids/ Dextrose 1,520.5 ml @ 63 mls/hr Q24H9M IV 02/15/25 22:00 02/16/25 21:59 laboratory and microbiology Laboratory Tests 02/15/25 02:45 Test 02/15/25 02:45 Range/Units Serum Glucose 93 74-106 mg/dL Microbiology Date/Time Source Procedure Growth Status 02/09/25 03:40 Blood Blood Culture - Final NO GROWTH AFTER 5 DAYS OF INCUBATION. Complete 02/02/25 22:00 Urine - [place] Urine Culture - Final Complete 01/30/25 00:00 Nose MRSA Screen - Final Complete 01/29/25 10:43 Sputum Gram Stain - Final Complete 01/29/25 10:43 Sputum Respiratory Culture - Final Complete Problem List/Assessment/Plan Problem List/Assessment/Plan Acute kidney injury likely ischemic ATN in the setting of shock, FeNa > 2%, nonoliguric Acute respiratory failure, intubated on ventilator Status post cardiac arrest Anoxic encephalopathy//brain herniation--> first MRI reported brain Hemodynamic shock Acute blood loss anemia/post op Status post laparoscopic cholecystectomy on 01/28/25 [facility] Status post ex lap, 01/29 Positive troponins NSTEMI--likely demand ischemia Shock liver HD treatments scheduled routinely based on assessment no indication for HD today No evidence of renal recovery, still produces 1L UOP daily continue IV bumex outpatient dialysis facility recommended, SW on case pending PEG and trac s/p TC , remove temporary HD catheter today continue YARY 3x week sub Q increase to 8000units surgery recs noted will monitor fluid balance defer all other medical conditions to primary attending Plan discussed with: Other (mother) My Orders My Orders Orders - SABINE ALLEN MD Procedure Category Date Status Time Communication Order ORDERS 02/15/25 Transmitted 10:51 Dietary Evaluation Review Recommendations by RD: PPN/TPN Comments: 1) Increase TPN rate to meet at least 75% of estimated daily needs 2) Advance to renal cardiac diet when medically feasible, pending ST approval 3) Follow-up with cardiology, pulmonology, nephrology, neurology, and gastroenterology 4) Continue to monitor I&O, labs, and skin integrity Expected Outcomes/Goals: 1) nutritional support to meet at least 75% of estimated daily needs 2) labs and wound to improve 3) diet to advance 4) gradual wt loss 5) f/u in 2-3 days Critical Care Time (mins): 33 SABINE ALLEN MD Feb 15, 2025 11:02
[2025-02-15] MEDS: VANCOMYCIN 500mg/100mL 100 ML IV ONE (13:00)
--- NOTE | 2025-02-15 17:07 | DVHPN2 ---
Subjective I am assuming the care of the patient from today onwards who was under the care of the hospitalist team. Chart reviewed surgical notes reviewed plan of care discussed with the patient's bedside RN as well as patient's mom and brother at bedside. Patient is currently intubated and comatose. Changes from previous H/P or p: No Changes Objective Vitals Vital Signs Date Time Temp Pulse Resp B/P (MAP) Pulse Ox O2 Delivery O2 Flow Rate FiO2 02/15/25 16:30 86 15 97/50 (66) 98 02/15/25 16:00 30 02/15/25 16:00 Mechanical Ventilator+ 02/15/25 16:00 98.6 98.6 Intake/Output Intake and Output 02/15/25 06:59 Intake Total 1007.250 ml Output Total 1050 ml Balance -42.750 ml Intake Oral 0 ml IV Total 867.250 ml Tube Feeding 140 ml Output Urine Total 1050 ml # Bowel Movements 1 Exam Pupils are fixed and dilated Neck is supple CV is S1-S2 regular rate and rhythm Respiratory diminished breath sounds bases GI sluggish bowel sounds Extremities no pedal edema [employer] comatose Medications Current Medications Medications Dose Ordered Sig/Serenity Route Start Time Stop Time Status Last Admin Dose Admin Midazolam HCl 50 ml @ 1 mls/hr Q24H IV 01/29/25 14:15 01/29/25 15:56 5 MLS/HR Phenylephrine HCl 250 ml @ 30 mls/hr Q8H20M IV 01/29/25 19:30 01/30/25 01:39 116.25 MLS/HR Levalbuterol HCl 0.625 mg Q4HR PRN NEB 01/29/25 20:00 02/13/25 22:12 0.625 MG Ipratropium [place] 0.5 mg Q4HPRN PRN NEB 01/29/25 20:00 02/13/25 22:12 0.5 MG Epinephrine HCl 250 ml @ 7.5 mls/hr Q24H IV 01/30/25 00:15 Vasopressin 20 units/Sodium Chloride 100 ml @ 9 mls/hr Q11H7M IV 01/30/25 07:30 02/03/25 13:09 9 MLS/HR Amino Acids 0 ml @ 0 mls/hr PER PHARMACY IV 02/01/25 11:15 Diagnostic Test (Pha) 1 strip Q6HR 02/01/25 18:00 02/15/25 12:22 1 STRIP Insulin Human Regular FOLLOW SLIDING SCALE Q6HR SC 02/01/25 18:00 02/02/25 11:36 2 UNITS Dextrose 50 ml UD IV 02/01/25 12:30 Vancomycin HCl 0 ml @ 0 mls/hr UD IV 02/04/25 09:00 Sodium Chloride 10 ml QSHIFT@ IV 02/04/25 22:00 02/15/25 09:07 10 ML Neomycin/ Polymyxin/ Bacitracin 1 applic DAILY TOP 02/06/25 10:00 02/15/25 09:06 1 APPLIC Bumetanide 2 mg BIDD IV 02/06/25 18:00 02/15/25 06:04 2 MG Norepinephrine Bitartrate 250 ml @ 0.938 mls/ hr Q24H IV 02/07/25 11:30 02/14/25 15:38 0.938 MLS/HR Artificial Tears 1 drop Q4HP PRN EACHEYE 02/08/25 07:30 Pantoprazole Sodium 40 mg Q12HR IV 02/08/25 22:00 02/15/25 09:06 40 MG Enteral Nutritional Formula 1,000 ml 20 NG 02/11/25 23:15 02/12/25 09:15 1,000 ML Fat Emulsion Intravenous 100 ml/Sodium Chloride 20 meq/ Potassium Acetate 20 meq/ Multivitamins 10 ml/Amino Acids/ Dextrose 1,525 ml @ 64 mls/hr [id number] IV 02/14/25 22:00 02/15/25 21:59 02/14/25 22:00 64 MLS/HR Fat Emulsion Intravenous 100 ml/Sodium Chloride 40 meq/ Magnesium Sulfate 2 meq/ Multivitamins 10 ml/Amino Acids/ Dextrose 1,520.5 ml @ 63 mls/hr Q24H9M IV 02/15/25 22:00 02/16/25 21:59 Epoetin Gunnar-epbx 8,000 unit MWF@2100 MT 02/17/25 21:00 Laboratory Results Laboratory Tests 02/15/25 02:45 Chemistry Test 02/15/25 02:45 Albumin 3.4 g/dL (3.2-4.8) Calcium Level 9.7 mg/dL (8.7-10.4) Magnesium Level 2.1 mg/dL (1.6-2.6) Phosphorus Level 5.0 mg/dL (2.4-5.1) Total Protein 7.0 g/dL (5.7-8.2) Coagulation Test 02/15/25 08:13 Prothrombin Time 11.5 sec (9.3-11.8) Prothrombin Time INR 1.09 (0.9-1.15) LFT Test 02/15/25 02:45 Alanine Aminotransferase (ALT) 34 U/L (7-40) Alkaline Phosphatase 594 U/L (46-116) H Aspartate Amino Transferase (AST) 193 U/L (13-40) H Total Bilirubin 4.2 mg/dL (0.2-1.0) H Urinalysis Test 01/29/25 09:54 01/29/25 14:15 Urine Color Light-orange (Yellow) Urine Clarity Turbid (Clear) H Urine pH 5.5 (5.0-9.0) Urine Specific [place] 1.017 (1.001-1.035) Urine Protein 2+ (Negative) H Urine Ketones Trace (Negative) Urine Blood 3+ /uL (Negative) H Urine Nitrite Negative (Negative) Urine Bilirubin Negative (Negative) Urine Urobilinogen Normal mg/dL (Negative) Urine Leukocyte Esterase Negative /uL (Negative) Urine RBC 130 /hpf (0 - 3) Urine Microscopic WBC < 1 /HPF (0-3) Urine Squamous Epithelial Cells Mod /hpf (<5) Urine Amorphous Crystals Few /hpf (None Seen) Urine Bacteria Few /hpf (None Seen) H Urine Glucose Trace mg/dL (Normal) Urine Creatinine 19.64 mg/dL (30.0-125.0) L Urine Sodium 98 mmol/L (40-220) Urine Total Protein 245.5 mg/dL (1-14) H Microbiology Microbiology Date/Time Source Procedure Growth Status 02/09/25 03:40 Blood Blood Culture - Final NO GROWTH AFTER 5 DAYS OF INCUBATION. Complete 02/02/25 22:00 Urine - [place] Urine Culture - Final Complete 01/30/25 00:00 Nose MRSA Screen - Final Complete 01/29/25 10:43 Sputum Gram Stain - Final Complete 01/29/25 10:43 Sputum Respiratory Culture - Final Complete Assessment/Plan Assessment/Plan 24-year-old male who had a recent laparoscopic cholecystectomy for gallstone induced pancreatitis, brought in by paramedics with a witnessed cardiac arrest with a down time around 10 minutes as per documentation, status post ROSC after five rounds of ACLS protocol intubated on mechanical ventilation . Patient was diagnosed with postoperative bleeding status post exploratory laparotomy with the evacuation of hemoperitoneum on01/29, status post revised exploratory laparotomy with intra-abdominal packing on01/30, status post exploratory laparotomy with the removal of intra-abdominal packing on02/02. 1. Acute hypoxic/anoxic encephalopathy secondary to cardiopulmonary arrest , CT findings consistent with cerebral edema with a cerebellar tonsillar herniation 2. Cardiopulmonary arrest status post CPR with the ACLS protocol, currently remains intubated on mechanical ventilation 3. Postoperative bleeding status post exploratory laparotomy with the evacuation of hemoperitoneum on01/29, status post revised exploratory laparotomy with intra- abdominal packing on01/30, status post exploratory laparotomy with the removal of intra-abdominal packing on02/02. 4. Acute hypoxic respiratory failure requiring intubation on mechanical ventilation 5. Acute kidney injury secondary to vasomotor nephropathy/ATN, currently on hemodialysis 6. Anemia with a intra-abdominal bleeding status post multiple units of packed RBC/FFP 7. Anion gap metabolic acidosis secondary to hypovolemia due to hemoperitoneum, currently resolved 8. Lactic acidosis 9. Leukocytosis likely reactive resolved -continue vent support, daily ABG, chest x-ray, nutrition with TPN, patient is currently scheduled for PEG and tracheostomy. -patient's brain finding and other studies are consistent with a suspected brain with some brainstem functioning left as patient's has been breathing over the vent sometimes- -patient's has a severe hypoxic/anoxic encephalopathy, very grave prognosis as patient's may not attain meaningful neurological recovery, if patient's 's he is going to probably be in persistent vegetative state. -patient's family was updated at bedside including brother and mom. Plan discussed with: Other Date of Service: Feb 15, 2025 Billing Provider: LAUREN FARAH MD Common Visit Codes: [id number] INP/OBS CARE(HIGH) LAUREN FARAH MD Feb 15, 2025 17:07
--- NOTE | 2025-02-15 18:32 | DVHPN2 ---
Progress Note - Dictate Date Seen: Feb 15, 2025 Has the PT tested + for MRSA If YES, has PT been informed?: No Medical Necessity Reason Pt with a Central, PICC or Fol: Yes The following are medically ne: Central Line, Mora Catheter Reason for mora catheter: Nakul. Abd Surgery vital signs Vital Sign Date Time Temp Pulse Resp B/P (MAP) Pulse Ox O2 Delivery O2 Flow Rate FiO2 02/15/25 18:15 87 18 111/62 (78) 97 02/15/25 18:12 30 02/15/25 18:00 Mechanical Ventilator+ 02/15/25 16:00 98.6 98.6 Total Intake and Output 02/14/25 02/14/25 02/15/25 15:00 23:00 07:00 Intake Total 504 ml 420.250 ml 84 ml Output Total 500 ml 550 ml Balance 504 ml -79.750 ml -466 ml medications Current Medications Medications Dose Ordered Sig/Serenity Route Start Time Stop Time Status Last Admin Dose Admin Midazolam HCl 50 ml @ 1 mls/hr Q24H IV 01/29/25 14:15 01/29/25 15:56 5 MLS/HR Phenylephrine HCl 250 ml @ 30 mls/hr Q8H20M IV 01/29/25 19:30 01/30/25 01:39 116.25 MLS/HR Levalbuterol HCl 0.625 mg Q4HR PRN NEB 01/29/25 20:00 02/13/25 22:12 0.625 MG Ipratropium [place] 0.5 mg Q4HPRN PRN NEB 01/29/25 20:00 02/13/25 22:12 0.5 MG Epinephrine HCl 250 ml @ 7.5 mls/hr Q24H IV 01/30/25 00:15 Vasopressin 20 units/Sodium Chloride 100 ml @ 9 mls/hr Q11H7M IV 01/30/25 07:30 02/03/25 13:09 9 MLS/HR Amino Acids 0 ml @ 0 mls/hr PER PHARMACY IV 02/01/25 11:15 Diagnostic Test (Pha) 1 strip Q6HR 02/01/25 18:00 02/15/25 18:17 1 STRIP Insulin Human Regular FOLLOW SLIDING SCALE Q6HR SC 02/01/25 18:00 02/02/25 11:36 2 UNITS Dextrose 50 ml UD IV 02/01/25 12:30 Vancomycin HCl 0 ml @ 0 mls/hr UD IV 02/04/25 09:00 Sodium Chloride 10 ml QSHIFT@10,22 IV 02/04/25 22:00 02/15/25 09:07 10 ML Neomycin/ Polymyxin/ Bacitracin 1 applic DAILY TOP 02/06/25 10:00 02/15/25 09:06 1 APPLIC Bumetanide 2 mg BIDD IV 02/06/25 18:00 02/15/25 17:52 2 MG Norepinephrine Bitartrate 250 ml @ 0.938 mls/ hr Q24H IV 02/07/25 11:30 02/14/25 15:38 0.938 MLS/HR Artificial Tears 1 drop Q4HP PRN EACHEYE 02/08/25 07:30 Pantoprazole Sodium 40 mg Q12HR IV 02/08/25 22:00 02/15/25 09:06 40 MG Enteral Nutritional Formula 1,000 ml 20 NG 02/11/25 23:15 02/12/25 09:15 1,000 ML Fat Emulsion Intravenous 100 ml/Sodium Chloride 20 meq/ Potassium Acetate 20 meq/ Multivitamins 10 ml/Amino Acids/ Dextrose 1,525 ml @ 64 mls/hr [id number] IV 02/14/25 22:00 02/15/25 21:59 02/14/25 22:00 64 MLS/HR Fat Emulsion Intravenous 100 ml/Sodium Chloride 40 meq/ Magnesium Sulfate 2 meq/ Multivitamins 10 ml/Amino Acids/ Dextrose 1,520.5 ml @ 63 mls/hr Q24H9M IV 02/15/25 22:00 02/16/25 21:59 Epoetin Gunnar-epbx 8,000 unit MWF@2100 SC 02/17/25 21:00 laboratory and microbiology Laboratory Tests 02/15/25 02:45 Test 02/15/25 02:45 Range/Units Serum Glucose 93 74-106 mg/dL Assessment/Plan Impression Acute hypoxemic respiratory failure S/p cardiac arrest Hypovolemic shock Morbid obesity HARLEEN Patient seen and examined in ICU Events On mechanical ventilation S/p intubation PEEP 5, FiO2 30% No cough or gag. Respiratory drive persists. Patient with pupils fixed and dilated NM brain perfusion study c/w anoxic brain injury Poor chance of meaningful recovery Neurology recommendations appreciated Labs and imaging reviewed ABG reviewed Management Vent support Titrate to maintain sats 90% or above Sedation for vent synchrony Continue antibiotics Bronchodilators Monitor renal function HD as per nephrology Management deferred Monitor electrolytes Supplement as needed Pressors as needed for hemodynamic support To maintain a mean arterial pressure of 65 mmHg Overall poor prognosis with multiorgan dysfunction, poor chance of meaningful recovery Family agrees with plan for transfer to LTAC, possible trach and PEG placement there DVT prophylaxis Critical care time 35 minutes Dietary Evaluation Review Recommendations by RD: PPN/TPN Comments: 1) Increase TPN rate to meet at least 75% of estimated daily needs 2) Advance to renal cardiac diet when medically feasible, pending ST approval 3) Follow-up with cardiology, pulmonology, nephrology, neurology, and gastroenterology 4) Continue to monitor I&O, labs, and skin integrity Expected Outcomes/Goals: 1) nutritional support to meet at least 75% of estimated daily needs 2) labs and wound to improve 3) diet to advance 4) gradual wt loss 5) f/u in 2-3 days Plan discussed with: Other (Rn) WILL JIMENEZ MD Feb 15, 2025 18:32
--- NOTE | 2025-02-15 20:46 | DVHPN2 ---
Progress Note Date Seen: Feb 15, 2025 Has the PT tested + for MRSA If YES, has PT been informed?: No Medical Necessity Reason Pt with a Central, PICC or Fol: Yes The following are medically ne: Central Line, Mora Catheter Reason for mora catheter: Nakul. Abd Surgery Medical Necessity Reason Per RN, Family left at around 715 PM. Mother called to inform me she was leaving. I updated her from rounds this morning. Pt OGT was clamped instead of suction. RN informed, she connected it to suction now. No further BM. Developed epistaxis. Reportedly PEG tomorrow. Objective vital signs Vital Sign Date Time Temp Pulse Resp B/P (MAP) Pulse Ox O2 Delivery O2 Flow Rate FiO2 02/15/25 20:12 91 17 117/75 (89) 97 30 02/15/25 18:00 Mechanical Ventilator+ 02/15/25 16:00 98.6 98.6 Total Intake and Output 02/14/25 02/14/25 02/15/25 15:00 23:00 07:00 Intake Total 504 ml 420.250 ml 84 ml Output Total 500 ml 550 ml Balance 504 ml -79.750 ml -466 ml medications Current Medications Medications Dose Ordered Sig/Serenity Route Start Time Stop Time Status Last Admin Dose Admin Midazolam HCl 50 ml @ 1 mls/hr Q24H IV 01/29/25 14:15 01/29/25 15:56 5 MLS/HR Phenylephrine HCl 250 ml @ 30 mls/hr Q8H20M IV 01/29/25 19:30 01/30/25 01:39 116.25 MLS/HR Levalbuterol HCl 0.625 mg Q4HR PRN NEB 01/29/25 20:00 02/13/25 22:12 0.625 MG Ipratropium [place] 0.5 mg Q4HPRN PRN NEB 01/29/25 20:00 02/13/25 22:12 0.5 MG Epinephrine HCl 250 ml @ 7.5 mls/hr Q24H IV 01/30/25 00:15 Vasopressin 20 units/Sodium Chloride 100 ml @ 9 mls/hr Q11H7M IV 01/30/25 07:30 02/03/25 13:09 9 MLS/HR Amino Acids 0 ml @ 0 mls/hr PER PHARMACY IV 02/01/25 11:15 Diagnostic Test (Pha) 1 strip Q6HR 02/01/25 18:00 02/15/25 18:17 1 STRIP Insulin Human Regular FOLLOW SLIDING SCALE Q6HR SC 02/01/25 18:00 02/02/25 11:36 2 UNITS Dextrose 50 ml UD IV 02/01/25 12:30 Vancomycin HCl 0 ml @ 0 mls/hr UD IV 02/04/25 09:00 Sodium Chloride 10 ml QSHIFT@10,22 IV 02/04/25 22:00 02/15/25 09:07 10 ML Neomycin/ Polymyxin/ Bacitracin 1 applic DAILY TOP 02/06/25 10:00 02/15/25 09:06 1 APPLIC Bumetanide 2 mg BIDD IV 02/06/25 18:00 02/15/25 17:52 2 MG Norepinephrine Bitartrate 250 ml @ 0.938 mls/ hr Q24H IV 02/07/25 11:30 02/14/25 15:38 0.938 MLS/HR Artificial Tears 1 drop Q4HP PRN EACHEYE 02/08/25 07:30 Pantoprazole Sodium 40 mg Q12HR IV 02/08/25 22:00 02/15/25 09:06 40 MG Enteral Nutritional Formula 1,000 ml 20 NG 02/11/25 23:15 02/12/25 09:15 1,000 ML Fat Emulsion Intravenous 100 ml/Sodium Chloride 20 meq/ Potassium Acetate 20 meq/ Multivitamins 10 ml/Amino Acids/ Dextrose 1,525 ml @ 64 mls/hr [id number] IV 02/14/25 22:00 02/15/25 21:59 02/14/25 22:00 64 MLS/HR Fat Emulsion Intravenous 100 ml/Sodium Chloride 40 meq/ Magnesium Sulfate 2 meq/ Multivitamins 10 ml/Amino Acids/ Dextrose 1,520.5 ml @ 63 mls/hr Q24H9M IV 02/15/25 22:00 02/16/25 21:59 Epoetin Gunnar-epbx 8,000 unit MWF@2100 [place] 02/17/25 21:00 Examination Neuro. Unchanged. Dilated fixed pupils. No reflexes. CV. Hr 80s. Hemodynamically unstable. Levophed at 2 mcg/kg .Right PC and PICC catheter exit sites remain C/D/I. Mild epistaxis. Not active at this moment Pulmonary: Intubated with mechanical ventilator support 500/14/30%/+7. RR 15 to 17/min. ETT suction tubing clean. GI: Soft, obese, distended and non tender. Incisions and dressing C/D/I. TF held. OGT was still clamped. Connected to suction. Foudn to be clogged, Flushed. Working well. Clear fluid with TF tinge drainage. No further sanguineous output. . Mora catheter in place. Clear yellow urine in collection bag Extremities; No edema Resolved facial and neck edema. Mild orbital edema laboratory and microbiology Laboratory Tests 02/15/25 02:45 Test 02/15/25 02:45 Range/Units Serum Glucose 93 74-106 mg/dL Microbiology Date/Time Source Procedure Growth Status 02/09/25 03:40 Blood Blood Culture - Final NO GROWTH AFTER 5 DAYS OF INCUBATION. 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 CT revealed cerebral edema and tonsillar herniation.EEG no electric activity. Cerebral perfusion study confirmed no perfusion radiographically consistent with brain which was concordant with initial clinical diagnosis and EEG. However, pt continues demonstrating brainstem function as he is breathing over vent set rate of 14. RR. There seems to be autonomic dysfunction. Pt's BP fluctuating and RR. Pt's family believe that he has been responding to verbal and physical stimuli. F/U (3rd) CT brain worsening cerebral edema and tonsillar herniation. Mother and brother informed. CV: Has been demonstrating episodes hypotension, likely autonomic deregulation secondary to brain injury.Wean vasopressor as tolerated. Cardiology assistance appreciated. Mechanical DVT prophylaxis. Unlikely PE (can't rule it out) but patient oxygenating well, no tachycardia. Pulmonary hypertension possibly unknowingly preexistent. Pulmonary: VDRF. Continue ventilator. Appreciate pulmonary medicine assistance. No expectoration/phlegm upon suctioning. Pulmonary medicine following. Will try to schedule for tracheostomy on Monday. Pt approved for preferred [facility] facility with inpatient HD. GI: OGT to suction. Continue TPN. Continue BID GI prophylaxis. Hepatic shock. PEG possible tomorrow. . ARF/ATN secondary to hemorrhagic shock. Uremia and elevated crea.. Strict I&O. Stable u/o. Mora to gravity. Appreciate nephrology assistance. Replace/correct electrolytes. HD per nephrology. PC placed by IR. L SCV HD catheter removed. Heme/ID. Hemorrhagic shock resolved. Uremia, which may impact platelet function. No further sanguineous drainage from IV access, OGT or ETT suction tubing. Hgb stable 8.7. No evidence of active bleeding. Epistaxis. VW antigen high. INR, PT and PTT normal. Minimizing blood draw frequency to avoid worsening anemia. Repeat labs AM. Appreciate hematology assistance. Repeat Bld Cx done, Remain negative. Complete 14 day treatment of Vancomycin. Endocrine: Tight glycemic control. Skin: Skin care and pressure ulcer precautions. Plan discussed with: Other (Mother and RN) My Orders My Orders Orders - JITENDRA ZAMORA MD Procedure Category Date Status Time Chest Portable XY 02/15/25 Resulted 04:00 Complete Blood Count LAB 02/16/25 Verified 05:00 Complete Blood Count LAB 02/17/25 Verified 05:00 Complete Blood Count LAB 02/18/25 Verified 05:00 Complete Blood Count LAB 02/19/25 Verified 05:00 Complete Blood Count LAB 02/20/25 Verified 05:00 Complete Blood Count LAB 02/21/25 Verified 05:00 Basic Metabolic Panel LAB 02/17/25 Verified 05:00 Basic Metabolic Panel LAB 02/18/25 Verified 05:00 Basic Metabolic Panel LAB 02/19/25 Verified 05:00 Basic Metabolic Panel LAB 02/20/25 Verified 05:00 Basic Metabolic Panel LAB 02/21/25 Verified 05:00 Ng To Lcs YANET 02/15/25 In Process 05:17 Amino Acid PHA 02/15/25 In Process Infusion... W/Fat 22:00 Comprehensive LAB 02/16/25 Verified Metabolic Panel 04:00 Magnesium LAB 02/16/25 Verified 04:00 Phosphorus LAB 02/16/25 Verified 04:00 Tpn Per Pharmacy YANET 02/15/25 In Process 22:00 Vancomycin,Random LAB 02/16/25 Verified 04:00 Dietary Evaluation Review Recommendations by RD: PPN/TPN Comments: 1) Increase TPN rate to meet at least 75% of estimated daily needs 2) Advance to renal cardiac diet when medically feasible, pending ST approval 3) Follow-up with cardiology, pulmonology, nephrology, neurology, and gastroenterology 4) Continue to monitor I&O, labs, and skin integrity Expected Outcomes/Goals: 1) nutritional support to meet at least 75% of estimated daily needs 2) labs and wound to improve 3) diet to advance 4) gradual wt loss 5) f/u in 2-3 days JITENDRA ZAMORA MD Feb 15, 2025 20:46
[2025-02-15] MEDS: TPN PER PHARMACY IV NR (22:01)
[2025-02-16] VITALS (105 sets, daily range): BP systolic 85–117; BP diastolic 40–69; PULSE 71–94; RESP 12–27; TEMP 96.6–99.5; O2SAT 93–99
[2025-02-16 04:26] LABS: Hematocrit 25.2 % (41.0-53.0); Hemoglobin 8.8 g/dL (13.5-17.5); Mean Corpuscular Hemoglobin 29.9 pg (28.0-32.0); Mean Corpuscular Volume 86.2 fL (80.0-100.0); Nucleated Red Blood Cells % 0.5 %
[2025-02-16 04:28] LABS: Alanine Aminotransferase 34 U/L (7-40); Anion Gap 14 (5-15); BUN/Creatinine Ratio 11.6 (10.0-20.0); Calcium 10.1 mg/dL (8.7-10.4); Carbon Dioxide 27 mmol/L (20-31); Glucose 98 mg/dL (74-106); Magnesium 2.1 mg/dL (1.6-2.6); Potassium 4.9 mmol/L (3.5-5.1); Sodium 137 mmol/L (136-145); Total Protein 7.0 g/dL (5.7-8.2)
[2025-02-16 04:31] LABS: Alkaline Phosphatase 619 U/L (46-116); Chloride 96 mmol/L (98-107)
[2025-02-16 04:32] LABS: Albumin 3.1 g/dL (3.2-4.8); Bilirubin, Total 3.6 mg/dL (0.2-1.0); Blood Urea Nitrogen 105 mg/dL (9-23)
--- NOTE | 2025-02-16 07:08 | DVH ---
CHEST RADIOGRAPH Indication: MECHANICAL VENTILATION Technique: Single frontal view of the chest was obtained Comparison: XY CHEST PORTABLE on DOS: 02/15/25, XY CHEST PORTABLE on DOS: 02/14/25, XY CHEST PORTABLE o n DOS: 02/13/25 IMPRESSION: Heart is stable in size. There are low lung volumes with probable small left pleural effusion and bi basilar atelectasis. Support lines and tubes appear unchanged in satisfactory position. No pneumotho rax. No significant interval change.
--- NOTE | 2025-02-16 07:16 | DVHPN2 ---
Progress Note Date Seen: Feb 16, 2025 Has the PT tested + for MRSA If YES, has PT been informed?: No Medical Necessity Reason Pt with a Central, PICC or Fol: Yes The following are medically ne: Central Line, Mora Catheter Reason for mora catheter: Nakul. Abd Surgery Subjective Review of Systems Per RN, epistaxis resolved, OGT output 300 mL and u/o 900 mL Objective vital signs Vital Sign Date Time Temp Pulse Resp B/P (MAP) Pulse Ox O2 Delivery O2 Flow Rate FiO2 02/16/25 06:33 88 17 100/56 (71) 99 30 02/16/25 05:37 Mechanical Ventilator+ 02/16/25 04:00 97.7 97.7 Total Intake and Output 02/15/25 02/15/25 02/16/25 15:00 23:00 07:00 Intake Total 514.813 ml 281.250 ml 450.375 ml Output Total 600 ml 2400 ml Balance 514.813 ml -318.750 ml -1949.625 ml medications Current Medications Medications Dose Ordered Sig/Serenity Route Start Time Stop Time Status Last Admin Dose Admin Midazolam HCl 50 ml @ 1 mls/hr Q24H IV 01/29/25 14:15 01/29/25 15:56 5 MLS/HR Phenylephrine HCl 250 ml @ 30 mls/hr Q8H20M IV 01/29/25 19:30 01/30/25 01:39 116.25 MLS/HR Levalbuterol HCl 0.625 mg Q4HR PRN NEB 01/29/25 20:00 02/13/25 22:12 0.625 MG Ipratropium [place] 0.5 mg Q4HPRN PRN NEB 01/29/25 20:00 02/13/25 22:12 0.5 MG Epinephrine HCl 250 ml @ 7.5 mls/hr Q24H IV 01/30/25 00:15 Vasopressin 20 units/Sodium Chloride 100 ml @ 9 mls/hr Q11H7M IV 01/30/25 07:30 02/03/25 13:09 9 MLS/HR Amino Acids 0 ml @ 0 mls/hr PER PHARMACY IV 02/01/25 11:15 Diagnostic Test (Pha) 1 strip Q6HR 02/01/25 18:00 02/16/25 05:49 1 STRIP Insulin Human Regular FOLLOW SLIDING SCALE Q6HR SC 02/01/25 18:00 02/02/25 11:36 2 UNITS Dextrose 50 ml UD IV 02/01/25 12:30 Vancomycin HCl 0 ml @ 0 mls/hr UD IV 02/04/25 09:00 Sodium Chloride 10 ml QSHIFT@10,22 IV 02/04/25 22:00 02/15/25 21:56 10 ML Neomycin/ Polymyxin/ Bacitracin 1 applic DAILY TOP 02/06/25 10:00 02/15/25 09:06 1 APPLIC Bumetanide 2 mg BIDD IV 02/06/25 18:00 02/16/25 05:30 2 MG Norepinephrine Bitartrate 250 ml @ 0.938 mls/ hr Q24H IV 02/07/25 11:30 02/14/25 15:38 0.938 MLS/HR Artificial Tears 1 drop Q4HP PRN EACHEYE 02/08/25 07:30 Pantoprazole Sodium 40 mg Q12HR IV 02/08/25 22:00 02/15/25 21:56 40 MG Enteral Nutritional Formula 1,000 ml 20 NG 02/11/25 23:15 02/12/25 09:15 1,000 ML Fat Emulsion Intravenous 100 ml/Sodium Chloride 40 meq/ Magnesium Sulfate 2 meq/ Multivitamins 10 ml/Amino Acids/ Dextrose 1,520.5 ml @ 63 mls/hr Q24H9M IV 02/15/25 22:00 02/16/25 21:59 02/15/25 22:01 63 MLS/HR Epoetin Gunnar-epbx 8,000 unit MWF@2100 [place] 02/17/25 21:00 Examination Neuro. Unchanged. Dilated fixed pupils. No reflexes. CV. Hr 80s. Hemodynamically unstable. Levophed at 1 mcg/kg .Right PC and PICC catheter exit sites remain C/D/I. Epistaxis, resolved Pulmonary: Intubated with mechanical ventilator support 500/14/30%/+7. RR 17/min. ETT suction tubing clean. GI: Soft, obese, distended and non tender. Incisions and dressing C/D/I. TF held. OGT output TF tinged fluid. Mostly mucus,saliva like. No further sanguineous output. . Mora catheter in place. Clear yellow urine in collection bag Extremities. No edema Resolved facial and neck edema. Mild orbital edema laboratory and microbiology Laboratory Tests 02/16/25 03:30 Test 02/16/25 03:30 Range/Units Serum Glucose 98 74-106 mg/dL Microbiology Date/Time Source Procedure Growth Status 02/09/25 03:40 Blood Blood Culture - Final NO GROWTH AFTER 5 DAYS OF INCUBATION. Complete 02/02/25 22:00 Urine - [place] Urine Culture - Final Complete 01/30/25 00:00 Nose MRSA Screen - Final Complete 01/29/25 10:43 Sputum Gram Stain - Final Complete 01/29/25 10:43 Sputum Respiratory Culture - Final Complete Labs and/or images reviewed: Labs reviewed by me Problem List/Assessment/Plan Problem List/Assessment/Plan Neuro: Appreciate neurology input and assistance. CT revealed cerebral edema and tonsillar herniation.EEG no electric activity. Cerebral perfusion study confirmed no perfusion radiographically consistent with brain which was concordant with initial clinical diagnosis and EEG. However, pt continues demonstrating brainstem function as he is breathing over vent set rate of 14. RR. There seems to be autonomic dysfunction. Pt's BP fluctuating and RR. Pt's family believe that he has been responding to verbal and physical stimuli. F/U (3rd) CT brain worsening cerebral edema and tonsillar herniation. Mother and brother informed. CV: Has been demonstrating episodes hypotension, likely autonomic deregulation secondary to brain injury.Wean vasopressor as tolerated. Cardiology assistance appreciated. Mechanical DVT prophylaxis. Unlikely PE (can't rule it out) but patient oxygenating well, no tachycardia. Pulmonary hypertension possibly unknowingly preexistent. Pulmonary: VDRF. Continue ventilator. Appreciate pulmonary medicine assistance. No expectoration/phlegm upon suctioning. Pulmonary medicine following. Possible tracheostomy tomorrow. Pt approved for preferred subacute [facility] facility with inpatient HD. GI: OGT to suction. Continue TPN. Continue BID GI prophylaxis. Hepatic shock. Possible PEG today. . ARF/ATN secondary to hemorrhagic shock. Uremia and elevated crea.. Strict I&O. Stable u/o. Mora to gravity. Appreciate nephrology assistance. Replace/correct electrolytes. HD per nephrology. Heme/ID. Hemorrhagic shock resolved. Uremia, which may impact platelet function. No further sanguineous drainage from IV access, OGT or ETT suction tubing. Hgb stable. No evidence of active bleeding. Epistaxis resolved. VW antigen high. INR, PT and PTT normal. Minimizing blood draw frequency to avoid worsening anemia. Repeat labs AM. Appreciate hematology assistance. Repeat Bld Cx done, Remain negative. Complete 14 day treatment of Vancomycin. Endocrine: Tight glycemic control. Skin: Skin care and pressure ulcer precautions. Plan discussed with: Other (RN) My Orders My Orders Orders - JITENDRA ZAMORA MD Procedure Category Date Status Time Amino Acid PHA 02/15/25 In Process Infusion... W/Fat 22:00 Tpn Per Pharmacy YANET 02/15/25 In Process 22:00 Chest Portable XY 02/16/25 Resulted 04:00 Abg W/ Co-Ox RT 02/16/25 Logged 04:00 Dietary Evaluation Review Recommendations by RD: PPN/TPN Comments: 1) Increase TPN rate to meet at least 75% of estimated daily needs 2) Advance to renal cardiac diet when medically feasible, pending ST approval 3) Follow-up with cardiology, pulmonology, nephrology, neurology, and gastroenterology 4) Continue to monitor I&O, labs, and skin integrity Expected Outcomes/Goals: 1) nutritional support to meet at least 75% of estimated daily needs 2) labs and wound to improve 3) diet to advance 4) gradual wt loss 5) f/u in 2-3 days JITENDRA ZAMORA MD Feb 16, 2025 07:16
--- NOTE | 2025-02-16 07:42 | DVHPN2 ---
Progress Note - Dictate Date Seen: Feb 16, 2025 Has the PT tested + for MRSA If YES, has PT been informed?: No Medical Necessity Reason Pt with a Central, PICC or Fol: Yes The following are medically ne: Central Line, Mora Catheter Reason for mora catheter: Nakul. Abd Surgery vital signs Vital Sign Date Time Temp Pulse Resp B/P (MAP) Pulse Ox O2 Delivery O2 Flow Rate FiO2 02/16/25 06:33 88 17 100/56 (71) 99 30 02/16/25 05:37 Mechanical Ventilator+ 02/16/25 04:00 97.7 97.7 Total Intake and Output 02/15/25 02/15/25 02/16/25 15:00 23:00 07:00 Intake Total 514.813 ml 281.250 ml 519.000 ml Output Total 600 ml 2400 ml Balance 514.813 ml -318.750 ml -1881.000 ml medications Current Medications Medications Dose Ordered Sig/Serenity Route Start Time Stop Time Status Last Admin Dose Admin Midazolam HCl 50 ml @ 1 mls/hr Q24H IV 01/29/25 14:15 01/29/25 15:56 5 MLS/HR Phenylephrine HCl 250 ml @ 30 mls/hr Q8H20M IV 01/29/25 19:30 01/30/25 01:39 116.25 MLS/HR Levalbuterol HCl 0.625 mg Q4HR PRN NEB 01/29/25 20:00 02/13/25 22:12 0.625 MG Ipratropium Ewing 0.5 mg Q4HPRN PRN NEB 01/29/25 20:00 02/13/25 22:12 0.5 MG Epinephrine HCl 250 ml @ 7.5 mls/hr Q24H IV 01/30/25 00:15 Vasopressin 20 units/Sodium Chloride 100 ml @ 9 mls/hr Q11H7M IV 01/30/25 07:30 02/03/25 13:09 9 MLS/HR Amino Acids 0 ml @ 0 mls/hr PER PHARMACY IV 02/01/25 11:15 Diagnostic Test (Pha) 1 strip Q6HR 02/01/25 18:00 02/16/25 05:49 1 STRIP Insulin Human Regular FOLLOW SLIDING SCALE Q6HR SC 02/01/25 18:00 02/02/25 11:36 2 UNITS Dextrose 50 ml UD IV 02/01/25 12:30 Vancomycin HCl 0 ml @ 0 mls/hr UD IV 02/04/25 09:00 Sodium Chloride 10 ml QSHIFT@10,22 IV 02/04/25 22:00 02/15/25 21:56 10 ML Neomycin/ Polymyxin/ Bacitracin 1 applic DAILY TOP 02/06/25 10:00 02/15/25 09:06 1 APPLIC Bumetanide 2 mg BIDD IV 02/06/25 18:00 02/16/25 05:30 2 MG Norepinephrine Bitartrate 250 ml @ 0.938 mls/ hr Q24H IV 02/07/25 11:30 02/14/25 15:38 0.938 MLS/HR Artificial Tears 1 drop Q4HP PRN EACHEYE 02/08/25 07:30 Pantoprazole Sodium 40 mg Q12HR IV 02/08/25 22:00 02/15/25 21:56 40 MG Enteral Nutritional Formula 1,000 ml 20 NG 02/11/25 23:15 02/12/25 09:15 1,000 ML Fat Emulsion Intravenous 100 ml/Sodium Chloride 40 meq/ Magnesium Sulfate 2 meq/ Multivitamins 10 ml/Amino Acids/ Dextrose 1,520.5 ml @ 63 mls/hr Q24H9M IV 02/15/25 22:00 02/16/25 21:59 02/15/25 22:01 63 MLS/HR Epoetin Gunnar-epbx 8,000 unit MWF@2100 SC 02/17/25 21:00 laboratory and microbiology Laboratory Tests 02/16/25 03:30 Test 02/16/25 03:30 Range/Units Serum Glucose 98 74-106 mg/dL Assessment/Plan Still in ICU. On vent support. Blood pressure stable. Off any pressure support. No gross higher brain reflexes. Pupils are dilated and fixed. Anoxic/Hypoxic Encephalopathy No reported arrhythmia overnight Family are contemplating Trach/PEG Echocardiogram revealed no WMA and also revealed good EF. It also revealed increased Pulmonary Artery Pressure in favor of component of Pulmonary Hypertension. s/p Hemodialysis Received blood and platelet transfusion repeatedly Patient is a 24-year-old gentleman who was originally brought to the hospital for post arrest. Patient is seen in postop area. Patient is intubated and on multiple pressor supports. Patient is not source of history. Information was obtained by reviewing the chart, talking to patient's family/mother and communicating with staff and reviewing outside records ([facility]). Patient did have elective outpatient laparoscopic cholecystectomy in [facility] on January 28 2025. As per mother, after going home, patient was feeling very hungry and was eating and drinking a lot. He started feeling abdominal pain with nausea at night and in the morning was short of breath. As per mother: patient has stopped breathing in the morning and family called 911. As per mother, as per guidance of 911, family started CPR until EMS arrived. Patient was intubated and was brought to the hospital by EMS. Since arrival to [facility], patient was seen by surgeon who took the patient to operating room and performed laparotomy (there was hepatic hematoma). Postoperatively, the patient has remained hypotensive. There is signs for multiorgan involvement. Patient was not alert and did not complain of any chest pains. Labs revealed increased troponin. Cardiology is involved for cardiac aspects of care and abnormal troponin. First available EKG reveals sinus tachycardia with no specific ST-T changes. Telemetry had revealed sinus tachycardia throughout the stay. Patient is found to have significant anemia and is receiving blood transfusion at the time of evaluation. It is of note that at the time of evaluation patient does not have any reflexes. Intubated. Mucosa pale. Dilated and fixed pupils, Scattered rhonchi in the lungs. Cardiac: Tachycardic. No murmur. Abdomen is covered by dressing. Extremities do not reveal any edema. Dorsalis pedis is 1+ bilateral. Patient does not respond to any stimuli. Reported past medical history includes asthma and obesity. Reportedly, on January 23, 2025: Patient presented to [facility] for abdominal pain/nausea/vomiting. At that point the problems were ongoing for few weeks. In [facility], CT of the abdomen and MRCP were performed. Patient was seen by GI/surgery. Patient was found to have gallstones. Patient was discharged and later on January 28, 2025 presented back to [facility] for elective laparoscopy cholecystectomy. Patient was discharged home from [facility] after laparoscopic cholecystectomy. As per mother, patient does not have baseline history of any cardiac history. As per mother, patient was using marijuana. Mother denies any previous substance abuse besides marijuana. No specific family history is reported On January 23, 2025, labs in [facility] revealed creatinine of 0.84, hemoglobin of 15.2 and troponin (high sensitive) of <3. At that point EKG was normal WBC: 20.1 - 19.0 - 22.7 - 20.6 - 28.4 - 20.3 - 21.0 - 25.2 - 29.8 - 29.5 - 29.0 - 26.2 - 21.7 - 19.7 - 17.7 - 15.3 - 12.2 - 10.5 - 11.2 - 13.0 - 10.7 - 9.0 - 9.0 - 10.3 - 10.3 - 10.1 Hemoglobin: 8.3 - 6.5 - 12.1 - 11.1 - 12.1 - 9.3 - 9.2 - 9.1 - 8.4 - 9.0 - 9.5 - 8.8 - 8.4 - 8.0 - 9.7 - 9.6 - 9.8 - 9.6 - 9.7 - 9.8 - 9.1 - 8.5 - 8.8 - 8.9 - 8.7 - 8.8 Fibrinogen: 108 - 316 - 537 - 689 - >860 Creatinine: 4.02 - 3.78 - 3.90 - 3.95 - 4.34 - 5.44 - 6.05 - 6.73 - 7.31 - 7.77 - 6.64 - 7.30 - 4.91 - 5.32 - 7.40 - 5.98 - 7.66 - 6.28 - 7.71 - 8.67 - 6.87 - 5.62 - 7.59 - 8.95 - 7.51 Potassium: 5.6 - 4.6 - 4.8 - 3.9 - 2.9 - 2.9 - 3.6 - 3.8 - 4.9 - 5.4 - 6.0 - 5.1 - 5.3 - 6.1 - 6.0 - 4.6 - 4.4 - 4.3 - 3.5 - 3.4 - 3.7 - 4.5 - 5.7 - 5.2 - 4.0 - 3.8 - 4.1 - 4.5 AST/ALT: 676/700 - 1147/2056 - 4636/2521 - -/1995 - 2500/1989 - 1780/1821 - 808/995 - 586/735 - 456/444 - 312/290 - 237/163 - 215/125 - 190/87 - 200/74 - 202/66 - 189/53 - 186/44 - 186/45 - 192/38 - 193/34 - 214/34 Lactic acid: 17.9 - 17.2 - 11.4 Troponin (high sensitive): 0473 - 7118 - 5480 - 3167 - 2616 TSH: 11.05 Urine Toxicology: positive for Fentanyl and Benzodiazepine Chest x-ray revealed: Lines and Tubes: Endotracheal tube projects 2.2 cm above the meghan. Right internal jugular central venous catheter tip projects over superior vena cava. Lungs: No focal consolidation. Low lung volumes. Pleura: No effusion. No pneumothorax. Cardiomediastinal contours: Unremarkable Bones: No acute osseous abnormality. IMPRESSION: Lines and tubes as above. Low lung volumes. Repeat chest x-ray revealed: IMPRESSION: Lines and tubes in satisfactory position. Mild increased pulmonary vascular congestion Repeat chest xry revealed: IMPRESSION: Lines and tubes in satisfactory position. Mild increased pulmonary vascular congestion Repeat chest xry revealed: IMPRESSION: 1. Low lung volumes with concomitant crowding of the pulmonary vasculature. 2. No evidence of focal consolidation. 3. Lines and tubes unchanged. Repeat chest xry revealed: IMPRESSION: 1. Slight interval retraction of the endotracheal tube such that the tip now projects approximately 4.7 cm above the level of the meghan. Remaining lines and tubes unchanged. 2. Otherwise no significant change compared to prior exam. Repeat chest xry revealed: IMPRESSION: 1. Slight interval advancement of endotracheal tube such that the tip now projects approximately 1.7 cm above the level of the meghan. Remaining lines and tubes unchanged. 2. Otherwise no significant change compared to prior exam. Repeat chest xry revealed: IMPRESSION: 1. Slight interval retraction of the endotracheal tube such that the tip now projects approximately 3.3 cm above the level of the meghan. Remaining lines and tubes unchanged. 2. No evidence of acute cardiopulmonary process. Repeat chest xry revealed: IMPRESSION: 1. Endotracheal tube in appropriate position. Remaining lines and tubes unchanged. 2. No evidence of acute cardiopulmonary process. Repeat chest xry revealed: IMPRESSION: 1. Small right pleural effusion. 2. Lines and tubes unchanged. Repeat chest xry revealed: IMPRESSION: 1. Small right pleural effusion. 2. Lines and tubes unchanged. Repeat chest xry revealed: IMPRESSION: 1. Small bilateral pleural effusions. 2. Lines and tubes unchanged. Repeat chest xry revealed: IMPRESSION: 1. Slight interval advancement of the endotracheal tube. Remaining lines and tubes unchanged. 2. No evidence of acute cardiopulmonary process. Repeat chest xry revealed: IMPRESSION: 1. Slight interval retraction of the endotracheal tube such that the tip now projects approximately 3.3 cm above the level of the meghan. Remaining lines and tubes unchanged. 2. No evidence of acute cardiopulmonary process. Repeat chest xry revealed: Bowel gas pattern is unremarkable. Enteric tube tip projects over the expected region of the stomach. The lung bases demonstrates bibasilar atelectasis. The lower pelvis is collimated from field of view. No acute osseous abnormality identified. Repeat chest xry revealed: Lines and Tubes: Endotracheal tube tip projects approximately 5.1 cm above the level of the meghan. Enteric catheter terminates within the gastric lumen. Right peripherally inserted central catheter tip and left subclavian central venous catheter tip project over the distal superior vena cava. Lungs: Clear Pleura: No effusion. No pneumothorax. Cardiomediastinal contours: Unremarkable Bones: Unremarkable IMPRESSION: 1. No radiographic evidence of acute cardiopulmonary abnormality. 2. Lines and tubes as above. Repeat chest xry revealed: IMPRESSION: 1. Stable position of the support lines and tubes. 2. Bibasilar airspace disease which may reflect atelectasis and/or pneumonia. Possible small bilateral pleural effusions. Repeat chest xry revealed: IMPRESSION: 1. Lines and tubes unchanged. 2. Persistently diminished lung volumes with concomitant exaggeration of the pulmonary vasculature. No evidence of acute cardiopulmonary process. Repeat chest xry revealed: IMPRESSION: 1. No acute cardiopulmonary disease. 2. Lines and tubes as above. Repeat chest xry revealed: IMPRESSION: 1. Intervally placed right IJ catheter projects in appropriate remaining support devices are stable.2. No other significant change from the previous study. Persistent low lung volumes with vascular crowding and basilar atelectasis. Repeat chest xry revealed: IMPRESSION: Heart is stable in size. There are low lung volumes with probable small left pleural effusion and bibasilar atelectasis. Support lines and tubes appear unchanged in satisfactory position. No pneumothorax. No significant interval change. Brain scan revealed: FINDINGS: Absence of cerebral blood flow is noted along with no brain parenchymal radiotracer uptake. Increased activity is seen in the central face likely representing vascular shunting consistent with the so-called "hot nose" sign. Findings suggest brain however clinical correlation is necessary. IMPRESSION: Findings described above, which would be consistent with brain in the appropriate clinical setting, however clinical correlation is needed. CT of the chest/abdomen/pelvis revealed: IMPRESSION: 1. Hepatic hematoma measuring up to approximately 8.6 cm in greatest dimension, as described above, with hemorrhage extending beyond the liver capsule and into the right pericolic gutter as well as into the pelvis. No definite active arterial bleeding is seen on this exam, although limited evaluation due to the timing of contrast, as this was not a CTA exam. 2. Postsurgical changes of cholecystectomy. 3. Dilated fluid-filled small bowel loops, may be due to postoperative ileus. No small bowel obstruction. 4. Small volume pneumoperitoneum, likely due to recent surgery. Small volume of gas are seen in the upper ventral abdomen from the recent surgery. 5. Dependent atelectasis in the lower lobes. Otherwise, no acute disease in the chest. 6. Endotracheal tube and enteric tube in place. 7. Atrophic right kidney incidentally noted. 8. Additional findings as described above. Critical findings Critical Result: Acute hepatic hematoma with hemorrhage extending beyond the liver capsule into the adjacent portions of the abdomen and into the pelvis as detailed above. Repeat CT of chest/abdomen/pelvis revealed: There is limited interpretation of the chest, abdomen and pelvis without administration of intravenous contrast. Endotracheal tube tip terminates just at the meghan / left main bronchus. Diffuse bilateral pulmonary airspace consolidation bilaterally significantly increased. Bilateral lower lobe lobar consolidation/ atelectasis, increased from prior. Small bilateral pleural effusions. There is extensive edema/ stranding within the upper anterior chest, neck region/supraclavicular region. There is some hyperdensity within this region which could represent components of hematoma / blood products. Heterogeneous appearance of the thyroid gland. Right IJ catheter terminating at the cavoatrial junction. Adrenal glands unremarkable in shape. Perisplenic hematoma. Interval postsurgical changes in the right upper quadrant of the abdomen. There appears to be surgicel/gaseous collection within the previous hematoma cavity, likely representing surgicel. There is a radiopaque density within the resection cavity as well which measures 6.2 x 4.6 cm.. Postoperative changes of the right anterior abdomen with soft tissue emphysema. Small amount of pneumoperitoneum Surgical drainage catheter terminating in the right upper quadrant of the abdomen Right renal parenchymal atrophy. Left kidney demonstrates perinephric edema / stranding. No left hydronephrosis. Nasogastric tube projects towards the distal stomach. Moderate distention small bowel loops. Rectal catheter. Moderate distention of the large bowel loops. Normal appendix. Abdominal aorta normal in caliber. Small amount of ascites fluid/ mesenteric edema. Bladder decompressed by Mora catheter. Soft tissue edema /anasarca. Mesenteric edema. Small amount of ascites fluid. The osseous structures are stable. IMPRESSION: Limited evaluation without contrast. Interval evacuation of the right upper quadrant hematoma. Surgicel within the resection cavity. No significant interval development of new hematoma. There are 2 radiopaque lap pads within the resection cavity . Findings reviewed with Dr. Ledesma at 11:51 a.m. on 01/30/2025 Perisplenic hematoma, similar to previous examination. Extensive bilateral pulmonary airspace consolidation, significantly increased from previous examination. Small bilateral pleural effusions. Right upper quadrant drainage catheter. Pneumoperitoneum. Soft tissue edema / anasarca. Small amount of ascites fluid/ mesenteric edema. Extensive edema within the anterior chest, neck region. Heterogeneous appearance thyroid gland. Other findings as described. CT of the head revealed: IMPRESSION: 1. No evidence of acute intracranial abnormality. Repeat CT of head revealed: FINDINGS: Cerebellar tonsilar herniation. There is sulcal and ventricular effacement. The basal cisterns are effaced. Loss of mario-white matter differentiation is noted. The skull and visible facial bones are intact. The paranasal sinuses, mastoid air cells and middle ear cavities are well-aerated. The soft tissues of the scalp are unremarkable. IMPRESSION: Diffuse cerebral edema with cerebellar tonsillar herniation. Recommend MRI brain for further evaluation. Repeat CT of head revealed: FINDINGS: There is diffuse low attenuation throughout the brain with increased effacement of the ventricles and complete sulcal effacement. There is cerebellar tonsillar herniation. The orbits are normal. There is moderate mucosal thickening within the paranasal sinuses and mastoid air cells. The soft tissues and osseous structures appear within normal limits. IMPRESSION: 1. Findings as above suggesting worsening diffuse cerebral edema in the setting of anoxic brain injury in the given clinical setting. Further clinical correlation is suggested. CT of Neck revealed: IMPRESSION: Limited evaluation without contrast. Extensive soft tissue edema within the neck extending into the anterior / upper chest and anterior mediastinum . Retropharyngeal edema. Heterogeneous appearance of the thyroid gland. Inferior cerebellar tonsillar herniation better seen on the prior CT Renal Ultrasound revealed: IMPRESSION: 1. Right kidney not visible. 2. Left kidney is enlarged. 3. No hydronephrosis. Venous duplex of lower ext revealed: IMPRESSION: NO SONOGRAPHIC EVIDENCE FOR DEEP VENOUS THROMBOSIS IN THE RIGHT LOWER EXTREMITY VEINS. EEG reported: This is a remarkably abnormal EEG, this EEG seen in severe cerebral dysfunction due to metabolic/hypoxic encephalopathy or medication effects, unless this is caused by reversible etiology, this EEG is suggestive of a poor prognosis for meaningful recovery, please correlate clinically. Arrival EKG revealed sinus tachycardia with nonspecific ST-T changes Tele reveals sinus tachycardia Echocardiogram revealed: Technically limited study secondary to poor acoustic windows. Left ventricle: Left ventricle was normal-sized with normal systolic function. LVEF was 55-60%. No gross wall motion abnormality was seen. Right ventricle was mildly dilated with normal systolic function. Left atrium was normal-sized. Right atrium was mildly dilated. Aortic valve: Aortic valve was not well visualized. There was no aortic insufficiency/stenosis. There was no mitral regurgitation. There was trace tricuspid regurgitation. Pulmonary valve was not well visualized. IVC was not visualized. Right ventricular systolic pressure was assessed around 48 mm Hg. There was no pericardial effusion. Patient is a 24-year-old gentleman who presented with post arrest. It seems that the patient had hemorrhagic (intra-abdominal) presentation. Patient did have elective laparoscopic cholecystectomy the day before presentation. On the day of presentation, the patient was taken back to operating room and this time Laparotomy was done for hepatic hematoma. Patient does have multiorgan involvement. Clinically there is no brainstem reflexes. Shock liver/acute renal failure is considered. Troponin has been high. EKG did not reveal any STEMI. Presentation could be high troponin secondary to demand physiology. Patient does not have any risk factors for baseline coronary artery disease. In ideal scenario, ischemic workup/cardiac catheterization could be more revealing. Unfortunately, the patient does have acute renal failure which could be worsened by cardiac catheterization at this point. As there was no higher brain functions the suggestion is to wait and see if patient regains any higher brain function. It is of note that during cardiac catheterization, the patient may need some anticoagulation/antiplatelets. At this point patient is having significant anemia/bleeding and receiving blood transfusion and holding off of scenario forcing Anticoagulation/antiplatelets is advised. I had a long discussion with family members and Mother (repeatedly). Clinically patient has multiorgan failure. Secondary to active bleeding, we will avoid anticoagulation/antiplatelets for now. Being managed in ICU. Was taken to OR repeatedly. Still no reflexes. Echocardiogram revealed no WMA and also revealed good EF. It also revealed increased Pulmonary Artery Pressure in favor of component of Pulmonary Hypertension. Review of Echo images revealed good right ventricular systolic function. Not typical for Pulmonary Emboli. Still, PE cannot be ruled out. If PE is ruled out, then it is possible that patient had Pulmonary Hypertension from before (Baseline history of Asthma may actually reflect it). s/p PRBC transfusion (multiple). Being followed by Surgery, Nephrology, Hematology, Pulmonary, Neurology and GI. . Repeat imaging revealed cerebellar tonsillar herniation. Neurology diagnosed Hypoxic/Metabolic Encephalopathy also. EEG findings question meaningful recovery. Neurology declared patient: brain . Neurology second opinion was in favor of Anoxic/Hypoxic Encephalopathy. Repeat imaging of brain revealed worsening diffuse cerebral edema and also again revealed cerebellar tonsillar herniation. Family are contemplating Trach/PEG. Patient is seen by GI s/ p Arrest Intra-abdominal bleeding Hepatic hematoma Multiorgan failure, due to shock Shock liver Lactic Acidosis Acute renal failure Acute respiratory failure, on vent support Status post laparotomy Status post laparoscopic cholecystectomy Abnormal troponin, evaluated to reflect possible demand physiology History of gallstones History of asthma Obesity History of marijuana abuse Consumptive Coagulopathy / DIC Pulmonary Hypertension Cerebellar tonsillar Herniation. Encephalopathy, hypoxic/metabolic Renal failure, started on hemodialysis Brain scan questions brain Anoxic Encephalopathy Cardiac suggestion for management: Manage in ICU Follow-up electrolytes and kidney function tests and correct abnormalities Evaluation and management of respiratory failure as per Pulmonary Evaluation and management of Cerebellar tonsillar herniation and worsening cerebral edema as per Neurology/surgery/primary team V/Q scan could not be completed Anoxic/Hypoxic Encephalopathy Echocardiogram revealed no WMA and also revealed good EF. It also revealed increased Pulmonary Artery Pressure in favor of component of Pulmonary Hypertension. Hematology follow up (to comment on prophylaxis / treatment of Pulmonary Emboli) Surgical follow up Nephrology follow up (started on hemodialysis) and Hematology follow up Family are contemplating Trach/PEG. Patient is seen by GI Cardiac vidales, moderate risk patient for Tracheostomy and PEG placement procedures. Avoid Hypotension. DVT prophylaxis as per primary team (compression stocking Vs Lovenox..) Long-term prognosis depends on the above and most importantly regaining of the higher brain function: looks very grim Ischemic workup may be considered only after regaining higher brain function or any special change in clinical presentation Further evaluation and management depends on the above and clinical course A total of 75 minutes was spent reviewing the patient record, examining the patient, making a diagnostic and therapeutic plan, discussing this plan with medical personnel, following up on diagnostic studies and following the patient for clinical stability excluding any and all procedures. At least 50% of this time was spent in direct, [id number] contact. Thank you for allowing me to participate in this patient's care. Further recommendations will depend on patient's clinical course. Please do not hesitate to contact me if you have any questions or concerns. This medical document was created using electronic medical record system with [employer] computerized dictation system. Although this document has been carefully reviewed, there may still be some phonetic and typographical errors. These areas are purely typographical due to the imperfection of the software programs, and do not reflect any compromise in the patient's medical care. Dietary Evaluation Review Recommendations by RD: PPN/TPN Comments: 1) Increase TPN rate to meet at least 75% of estimated daily needs 2) Advance to renal cardiac diet when medically feasible, pending ST approval 3) Follow-up with cardiology, pulmonology, nephrology, neurology, and gastroenterology 4) Continue to monitor I&O, labs, and skin integrity Expected Outcomes/Goals: 1) nutritional support to meet at least 75% of estimated daily needs 2) labs and wound to improve 3) diet to advance 4) gradual wt loss 5) f/u in 2-3 days Plan discussed with: Other (nurse) KATHLEEN COHEN MD Feb 16, 2025 07:42
[2025-02-16 07:56] LABS: Base Excess 1.3 mmol/L (-2.0-3.0)
[2025-02-16] MEDS ORDERED: SODIUM CHLORIDE LOCK 0 ML ONE (08:23)
[2025-02-16] MEDS ORDERED: MIDAZOLAM HCL 5 MG/ML-1ML VIAL ONE (08:24)
[2025-02-16] MEDS ORDERED: diphenhdrAMINE HCL 50 MG/1 ML VL ONE (08:24)
[2025-02-16] MEDS ORDERED: fentaNYL CITRATE 100 MCG/2 ML VL ONE (08:24)
[2025-02-16] MEDS ORDERED: FLUMAZENIL 0.1 MG/ML INJ 10ML MDV IV ONE (08:25)
[2025-02-16] MEDS ORDERED: NALOXONE HCL 0.4 MG/ML VIAL ONE (08:25)
--- NOTE | 2025-02-16 11:26 | DVHPN2 ---
Subjective No acute events overnight , patient's mental seen and evaluated by me. Bedside RN Alex removing the vic. Patient is currently on TPN. Changes from previous H/P or p: No Changes Objective Vitals Vital Signs Date Time Temp Pulse Resp B/P (MAP) Pulse Ox O2 Delivery O2 Flow Rate FiO2 02/16/25 10:13 86 14 96/52 (67) 96 30 02/16/25 08:00 Mechanical Ventilator+ 02/16/25 08:00 97.9 97.9 Intake/Output Intake and Output 02/16/25 07:00 Intake Total 1315.063 ml Output Total 3000 ml Balance -1684.937 ml IV Total 1315.063 ml Output Urine Total 2400 ml Gastric Drainage Total 600 ml Exam Pupils are fixed and dilated Neck is supple CV is S1-S2 regular rate and rhythm Respiratory diminished breath sounds bases GI sluggish bowel sounds Extremities no pedal edema COORDINATOR OF EVALUATION comatose Medications Current Medications Medications Dose Ordered Sig/Serenity Route Start Time Stop Time Status Last Admin Dose Admin Midazolam HCl 50 ml @ 1 mls/hr Q24H IV 01/29/25 14:15 01/29/25 15:56 5 MLS/HR Phenylephrine HCl 250 ml @ 30 mls/hr Q8H20M IV 01/29/25 19:30 01/30/25 01:39 116.25 MLS/HR Levalbuterol HCl 0.625 mg Q4HR PRN NEB 01/29/25 20:00 02/13/25 22:12 0.625 MG Ipratropium [place] 0.5 mg Q4HPRN PRN NEB 01/29/25 20:00 02/13/25 22:12 0.5 MG Epinephrine HCl 250 ml @ 7.5 mls/hr Q24H IV 01/30/25 00:15 Vasopressin 20 units/Sodium Chloride 100 ml @ 9 mls/hr Q11H7M IV 01/30/25 07:30 02/03/25 13:09 9 MLS/HR Amino Acids 0 ml @ 0 mls/hr PER PHARMACY IV 02/01/25 11:15 Diagnostic Test (Pha) 1 strip Q6HR 02/01/25 18:00 02/16/25 05:49 1 STRIP Insulin Human Regular FOLLOW SLIDING SCALE Q6HR SC 02/01/25 18:00 02/02/25 11:36 2 UNITS Dextrose 50 ml UD IV 02/01/25 12:30 Vancomycin HCl 0 ml @ 0 mls/hr UD IV 02/04/25 09:00 Sodium Chloride 10 ml QSHIFT@10,22 IV 02/04/25 22:00 02/16/25 10:00 10 ML Neomycin/ Polymyxin/ Bacitracin 1 applic DAILY TOP 02/06/25 10:00 02/16/25 10:47 1 APPLIC Bumetanide 2 mg BIDD IV 02/06/25 18:00 02/16/25 05:30 2 MG Norepinephrine Bitartrate 250 ml @ 0.938 mls/ hr Q24H IV 02/07/25 11:30 02/14/25 15:38 0.938 MLS/HR Artificial Tears 1 drop Q4HP PRN EACHEYE 02/08/25 07:30 Pantoprazole Sodium 40 mg Q12HR IV 02/08/25 22:00 02/16/25 10:46 40 MG Enteral Nutritional Formula 1,000 ml 20 NG 02/11/25 23:15 02/12/25 09:15 1,000 ML Fat Emulsion Intravenous 100 ml/Sodium Chloride 40 meq/ Magnesium Sulfate 2 meq/ Multivitamins 10 ml/Amino Acids/ Dextrose 1,520.5 ml @ 63 mls/hr Q24H9M IV 02/15/25 22:00 02/16/25 21:59 02/15/25 22:01 63 MLS/HR Epoetin Gunnar-epbx 8,000 unit MWF@2100 SC 02/17/25 21:00 Fat Emulsion Intravenous 100 ml/Sodium Chloride 60 meq/ Magnesium Sulfate 2 meq/ Multivitamins 10 ml/Amino Acids/ Dextrose 1,475.5 ml @ 60 mls/hr [id number] IV 02/16/25 22:00 02/17/25 21:59 Laboratory Results Laboratory Tests 02/16/25 03:30 Chemistry Test 02/16/25 03:30 Albumin 3.1 g/dL (3.2-4.8) L Calcium Level 10.1 mg/dL (8.7-10.4) Magnesium Level 2.1 mg/dL (1.6-2.6) Phosphorus Level 6.5 mg/dL (2.4-5.1) H Total Protein 7.0 g/dL (5.7-8.2) Coagulation Test 02/15/25 20:55 Activated Partial Thromboplast Time 32.1 SEC (24.5-34.5) LFT Test 02/16/25 03:30 Alanine Aminotransferase (ALT) 34 U/L (7-40) Alkaline Phosphatase 619 U/L (46-116) H Aspartate Amino Transferase (AST) 214 U/L (13-40) H Total Bilirubin 3.6 mg/dL (0.2-1.0) H Urinalysis Test 01/29/25 09:54 01/29/25 14:15 Urine Color Light-orange (Yellow) Urine Clarity Turbid (Clear) H Urine pH 5.5 (5.0-9.0) Urine Specific Only 1.017 (1.001-1.035) Urine Protein 2+ (Negative) H Urine Ketones Trace (Negative) Urine Blood 3+ /uL (Negative) H Urine Nitrite Negative (Negative) Urine Bilirubin Negative (Negative) Urine Urobilinogen Normal mg/dL (Negative) Urine Leukocyte Esterase Negative /uL (Negative) Urine RBC 130 /hpf (0 - 3) Urine Microscopic WBC < 1 /HPF (0-3) Urine Squamous Epithelial Cells Mod /hpf (<5) Urine Amorphous Crystals Few /hpf (None Seen) Urine Bacteria Few /hpf (None Seen) H Urine Glucose Trace mg/dL (Normal) Urine Creatinine 19.64 mg/dL (30.0-125.0) L Urine Sodium 98 mmol/L (40-220) Urine Total Protein 245.5 mg/dL (1-14) H Blood Gas Results Test 02/16/25 07:44 Arterial Blood pH 7.393 (7.350-7.450) FiO2 % 30.0 Microbiology Microbiology Date/Time Source Procedure Growth Status 02/09/25 03:40 Blood Blood Culture - Final NO GROWTH AFTER 5 DAYS OF INCUBATION. Complete 02/02/25 22:00 Urine - [place] Urine Culture - Final Complete 01/30/25 00:00 Nose MRSA Screen - Final Complete 01/29/25 10:43 Sputum Gram Stain - Final Complete 01/29/25 10:43 Sputum Respiratory Culture - Final Complete Assessment/Plan Assessment/Plan 24-year-old male who had a recent laparoscopic cholecystectomy for gallstone induced pancreatitis, brought in by paramedics with a witnessed cardiac arrest with a down time around 10 minutes as per documentation, status post ROSC after five rounds of ACLS protocol intubated on mechanical ventilation . Patient was diagnosed with postoperative bleeding status post exploratory laparotomy with the evacuation of hemoperitoneum on01/29, status post revised exploratory laparotomy with intra-abdominal packing on01/30, status post exploratory laparotomy with the removal of intra-abdominal packing on02/02. 1. Acute hypoxic/anoxic encephalopathy secondary to cardiopulmonary arrest , CT findings consistent with cerebral edema with a cerebellar tonsillar herniation 2. Cardiopulmonary arrest status post CPR with the ACLS protocol, currently remains intubated on mechanical ventilation 3. Postoperative bleeding status post exploratory laparotomy with the evacuation of hemoperitoneum on01/29, status post revised exploratory laparotomy with intra- abdominal packing on01/30, status post exploratory laparotomy with the removal of intra-abdominal packing on02/02. 4. Acute hypoxic respiratory failure requiring intubation on mechanical ventilation 5. Acute kidney injury secondary to vasomotor nephropathy/ATN, currently on hemodialysis 6. Anemia with a intra-abdominal bleeding status post multiple units of packed RBC/FFP 7. Anion gap metabolic acidosis secondary to hypovolemia due to hemoperitoneum, currently resolved 8. Lactic acidosis 9. Leukocytosis likely reactive resolved -continue vent support, daily ABG, chest x-ray, nutrition with TPN, patient is currently scheduled for PEG and tracheostomy. -patient's brain finding and other studies are consistent with a suspected brain with some brainstem functioning left as patient's has been breathing over the vent sometimes- -patient's has a severe hypoxic/anoxic encephalopathy, very grave prognosis as patient's may not attain meaningful neurological recovery, if patient's 's he is going to probably be in persistent vegetative state. -patient's family was updated at bedside including brother and mom. Plan discussed with: Other Date of Service: Feb 16, 2025 Billing Provider: LAUREN FARAH MD Common Visit Codes: [id number] INP/OBS CARE(HIGH) LAUREN FARAH MD Feb 16, 2025 11:26
--- NOTE | 2025-02-16 12:28 | DVHPN2 ---
Progress Note Date Seen: Feb 16, 2025 Has the PT tested + for MRSA If YES, has PT been informed?: No Medical Necessity Reason Pt with a Central, PICC or Fol: Yes The following are medically ne: Central Line, Mora Catheter Reason for mora catheter: Nakul. Abd Surgery Subjective Review of Systems: Deferred Objective vital signs Vital Sign Date Time Temp Pulse Resp B/P (MAP) Pulse Ox O2 Delivery O2 Flow Rate FiO2 02/16/25 11:45 85 14 98/48 (65) 96 02/16/25 10:13 30 02/16/25 08:00 Mechanical Ventilator+ 02/16/25 08:00 97.9 97.9 Total Intake and Output 02/15/25 02/15/25 02/16/25 15:00 23:00 07:00 Intake Total 514.813 ml 281.250 ml 519.000 ml Output Total 600 ml 2400 ml Balance 514.813 ml -318.750 ml -1881.000 ml medications Current Medications Medications Dose Ordered Sig/Serenity Route Start Time Stop Time Status Last Admin Dose Admin Midazolam HCl 50 ml @ 1 mls/hr Q24H IV 01/29/25 14:15 01/29/25 15:56 5 MLS/HR Phenylephrine HCl 250 ml @ 30 mls/hr Q8H20M IV 01/29/25 19:30 01/30/25 01:39 116.25 MLS/HR Levalbuterol HCl 0.625 mg Q4HR PRN NEB 01/29/25 20:00 02/16/25 12:12 0.625 MG Ipratropium [place] 0.5 mg Q4HPRN PRN NEB 01/29/25 20:00 02/16/25 12:13 0.5 MG Epinephrine HCl 250 ml @ 7.5 mls/hr Q24H IV 01/30/25 00:15 Vasopressin 20 units/Sodium Chloride 100 ml @ 9 mls/hr Q11H7M IV 01/30/25 07:30 02/03/25 13:09 9 MLS/HR Amino Acids 0 ml @ 0 mls/hr PER PHARMACY IV 02/01/25 11:15 Diagnostic Test (Pha) 1 strip Q6HR 02/01/25 18:00 02/16/25 11:44 1 STRIP Insulin Human Regular FOLLOW SLIDING SCALE Q6HR SC 02/01/25 18:00 02/02/25 11:36 2 UNITS Dextrose 50 ml UD IV 02/01/25 12:30 Vancomycin HCl 0 ml @ 0 mls/hr UD IV 02/04/25 09:00 Sodium Chloride 10 ml QSHIFT@10,22 IV 02/04/25 22:00 02/16/25 10:00 10 ML Neomycin/ Polymyxin/ Bacitracin 1 applic DAILY TOP 02/06/25 10:00 02/16/25 10:47 1 APPLIC Bumetanide 2 mg BIDD IV 02/06/25 18:00 02/16/25 05:30 2 MG Norepinephrine Bitartrate 250 ml @ 0.938 mls/ hr Q24H IV 02/07/25 11:30 02/16/25 11:44 0.938 MLS/HR Artificial Tears 1 drop Q4HP PRN EACHEYE 02/08/25 07:30 Pantoprazole Sodium 40 mg Q12HR IV 02/08/25 22:00 02/16/25 10:46 40 MG Enteral Nutritional Formula 1,000 ml 20 NG 02/11/25 23:15 02/12/25 09:15 1,000 ML Fat Emulsion Intravenous 100 ml/Sodium Chloride 40 meq/ Magnesium Sulfate 2 meq/ Multivitamins 10 ml/Amino Acids/ Dextrose 1,520.5 ml @ 63 mls/hr Q24H9M IV 02/15/25 22:00 02/16/25 21:59 02/15/25 22:01 63 MLS/HR Epoetin Gunnar-epbx 8,000 unit MWF@2100 PR 02/17/25 21:00 Fat Emulsion Intravenous 100 ml/Sodium Chloride 60 meq/ Magnesium Sulfate 2 meq/ Multivitamins 10 ml/Amino Acids/ Dextrose 1,475.5 ml @ 60 mls/hr [id number] IV 02/16/25 22:00 02/17/25 21:59 Examination: GENERAL:Abnormal, LUNGS:Abnormal, ABDOMEN:Abnormal, SKIN:Abnormal laboratory and microbiology Laboratory Tests 02/16/25 03:30 Test 02/16/25 03:30 Range/Units Serum Glucose 98 74-106 mg/dL Microbiology Date/Time Source Procedure Growth Status 02/09/25 03:40 Blood Blood Culture - Final NO GROWTH AFTER 5 DAYS OF INCUBATION. Complete 02/02/25 22:00 Urine - [place] Urine Culture - Final Complete 01/30/25 00:00 Nose MRSA Screen - Final Complete 01/29/25 10:43 Sputum Gram Stain - Final Complete 01/29/25 10:43 Sputum Respiratory Culture - Final Complete Problem List/Assessment/Plan Problem List/Assessment/Plan Acute kidney injury likely ischemic ATN in the setting of shock, FeNa > 2%, nonoliguric Acute respiratory failure, intubated on ventilator Status post cardiac arrest Anoxic encephalopathy//brain herniation--> first MRI reported brain Hemodynamic shock Acute blood loss anemia/post op Status post laparoscopic cholecystectomy on 01/28/[address] [facility] Status post ex lap, 01/29 Positive troponins NSTEMI--likely demand ischemia Shock liver HD today No evidence of renal recovery, still produces 1L UOP daily continue IV bumex outpatient dialysis facility recommended, SW on case pending PEG and trac s/p TC , remove temporary HD catheter today continue YARY 3x week sub Q increase to 8000units surgery recs noted will monitor fluid balance defer all other medical conditions to primary attending Plan discussed with: Other Dietary Evaluation Review Recommendations by RD: PPN/TPN Comments: 1) Increase TPN rate to meet at least 75% of estimated daily needs 2) Advance to renal cardiac diet when medically feasible, pending ST approval 3) Follow-up with cardiology, pulmonology, nephrology, neurology, and gastroenterology 4) Continue to monitor I&O, labs, and skin integrity Expected Outcomes/Goals: 1) nutritional support to meet at least 75% of estimated daily needs 2) labs and wound to improve 3) diet to advance 4) gradual wt loss 5) f/u in 2-3 days Critical Care Time (mins): 33 SABINE ALLEN MD Feb 16, 2025 12:28
[2025-02-16] MEDS: ALBUMIN 25% 100 ML IV ONE (13:00)
--- NOTE | 2025-02-16 13:28 | DVHPN2 ---
Progress Note Date Seen: Feb 16, 2025 Has the PT tested + for MRSA If YES, has PT been informed?: No Medical Necessity Reason Pt with a Central, PICC or Fol: Yes The following are medically ne: Central Line, Mora Catheter Reason for mora catheter: Nakul. Abd Surgery Subjective Review of Systems Pt's mother, sister, brother and brother in law at bedside. They had questions with regards to PEG versus gastrostomy. Bother procedures explained. They were made aware about PEG being least invasive versus gastrostomy requiring surgical approach. Sister asked her , who is a surgical technologist. He agreed with least invasive approach (PEG). Pt's mother decided to proceed with PEG. Will discuss with Dr. Mack. Per RN, good U/O and Levophed reduced to .5 mcg/kg Objective vital signs Vital Sign Date Time Temp Pulse Resp B/P (MAP) Pulse Ox O2 Delivery O2 Flow Rate FiO2 02/16/25 11:58 86 14 96/52 (67) 96 30 02/16/25 10:00 Mechanical Ventilator+ 02/16/25 08:00 97.9 97.9 Total Intake and Output 02/15/25 02/15/25 02/16/25 14:59 22:59 06:59 Intake Total 512 ml 283.188 ml 519.000 ml Output Total 600 ml 2400 ml Balance 512 ml -316.812 ml -1881.000 ml medications Current Medications Medications Dose Ordered Sig/Serenity Route Start Time Stop Time Status Last Admin Dose Admin Midazolam HCl 50 ml @ 1 mls/hr Q24H IV 01/29/25 14:15 01/29/25 15:56 5 MLS/HR Phenylephrine HCl 250 ml @ 30 mls/hr Q8H20M IV 01/29/25 19:30 01/30/25 01:39 116.25 MLS/HR Levalbuterol HCl 0.625 mg Q4HR PRN NEB 01/29/25 20:00 02/16/25 12:12 0.625 MG Ipratropium [place] 0.5 mg Q4HPRN PRN NEB 01/29/25 20:00 02/16/25 12:13 0.5 MG Epinephrine HCl 250 ml @ 7.5 mls/hr Q24H IV 01/30/25 00:15 Vasopressin 20 units/Sodium Chloride 100 ml @ 9 mls/hr Q11H7M IV 01/30/25 07:30 02/03/25 13:09 9 MLS/HR Amino Acids 0 ml @ 0 mls/hr PER PHARMACY IV 02/01/25 11:15 Diagnostic Test (Pha) 1 strip Q6HR 02/01/25 18:00 02/16/25 11:44 1 STRIP Insulin Human Regular FOLLOW SLIDING SCALE Q6HR SC 02/01/25 18:00 02/02/25 11:36 2 UNITS Dextrose 50 ml UD IV 02/01/25 12:30 Vancomycin HCl 0 ml @ 0 mls/hr UD IV 02/04/25 09:00 Sodium Chloride 10 ml QSHIFT@ IV 02/04/25 22:00 02/16/25 10:00 10 ML Neomycin/ Polymyxin/ Bacitracin 1 applic DAILY TOP 02/06/25 10:00 02/16/25 10:47 1 APPLIC Bumetanide 2 mg BIDD IV 02/06/25 18:00 02/16/25 05:30 2 MG Norepinephrine Bitartrate 250 ml @ 0.938 mls/ hr Q24H IV 02/07/25 11:30 02/16/25 11:44 0.938 MLS/HR Artificial Tears 1 drop Q4HP PRN EACHEYE 02/08/25 07:30 Pantoprazole Sodium 40 mg Q12HR IV 02/08/25 22:00 02/16/25 10:46 40 MG Enteral Nutritional Formula 1,000 ml 20 NG 02/11/25 23:15 02/12/25 09:15 1,000 ML Fat Emulsion Intravenous 100 ml/Sodium Chloride 40 meq/ Magnesium Sulfate 2 meq/ Multivitamins 10 ml/Amino Acids/ Dextrose 1,520.5 ml @ 63 mls/hr Q24H9M IV 02/15/25 22:00 02/16/25 21:59 02/15/25 22:01 63 MLS/HR Epoetin Gunnar-epbx 8,000 unit MWF@2100 NM 02/17/25 21:00 Fat Emulsion Intravenous 100 ml/Sodium Chloride 60 meq/ Magnesium Sulfate 2 meq/ Multivitamins 10 ml/Amino Acids/ Dextrose 1,475.5 ml @ 60 mls/hr [id number] IV 02/16/25 22:00 02/17/25 21:59 Examination Neuro. Unchanged. Dilated fixed pupils. No reflexes. CV. Hr 80s. Hemodynamically unstable. Levophed at .5 mcg/kg. LSCV catheter remains in place. Covered by dressings and not readily visible, C/DI site. Right PC and PICC catheter exit sites remain C/D/I. Epistaxis, resolved. Some minimal blood during oral care. Pulmonary: Intubated with mechanical ventilator support 500/14/30%/+7. RR 14/min. ETT suction tubing clean. GI: Soft, obese, mildly distended and non tender. Incisions and dressing C/D/I. OGT no output. No further sanguineous output. . Mora catheter in place. Clear yellow urine in collection bag Extremities. No edema Resolved facial and neck edema. Mild orbital edema laboratory and microbiology Laboratory Tests 02/16/25 03:30 Test 02/16/25 03:30 Range/Units Serum Glucose 98 74-106 mg/dL Microbiology Date/Time Source Procedure Growth Status 02/09/25 03:40 Blood Blood Culture - Final NO GROWTH AFTER 5 DAYS OF INCUBATION. Complete 02/02/25 22:00 Urine - [place] Urine Culture - Final Complete 01/30/25 00:00 Nose MRSA Screen - Final Complete 01/29/25 10:43 Sputum Gram Stain - Final Complete 01/29/25 10:43 Sputum Respiratory Culture - Final Complete Labs and/or images reviewed: Labs reviewed by me Problem List/Assessment/Plan Problem List/Assessment/Plan Neuro: Appreciate neurology input and assistance. CT revealed cerebral edema and tonsillar herniation.EEG no electric activity. Cerebral perfusion study confirmed no perfusion radiographically consistent with brain which was concordant with initial clinical diagnosis and EEG. However, pt continues demonstrating brainstem function as he is breathing over vent set rate of 14. RR. There seems to be autonomic dysfunction. Pt's BP fluctuating and RR. Pt's family believe that he has been responding to verbal and physical stimuli. F/U (3rd) CT brain worsening cerebral edema and tonsillar herniation. Mother and brother informed. CV: Has been demonstrating episodes hypotension, likely autonomic deregulation secondary to brain injury.Wean vasopressor as tolerated. Cardiology assistance appreciated. Mechanical DVT prophylaxis. Unlikely PE (can't rule it out) but patient oxygenating well, no tachycardia. Pulmonary hypertension possibly unknowingly preexistent. Pulmonary: VDRF. Continue ventilator. Appreciate pulmonary medicine assistance. No expectoration/phlegm upon suctioning. Pulmonary medicine following. Tentatively scheduled for tracheostomy tomorrow. I had a lengthy discussion with the pt's family. RN present. I explained the procedure, risks and benefits. They were made aware of potential complications such as: bleeding, infection, need for additional procedures, injury to surrounding structures, tracheoinnominate fistula, loss of airway and/or . They are also steele that surgical intervention does not guarantee success and complications are not intended. The option was also given for a second opinion or another surgeon to perform the tracheostomy, if they had any reservations for me to perform the procedure. Pt's mother verbalized understanding and agreed to proceed. He will get HD today to address uremia to reduce risk of perioperative bleeding. Pt approved for preferred [facility] facility with inpatient HD. GI: OGT to suction. Continue TPN. Continue BID GI prophylaxis. Hepatic shock. PEG postponed secondary to epistaxis and uremia. . ARF/ATN secondary to hemorrhagic shock. Uremia and elevated crea. Strict I&O. Stable u/o. Mora to gravity. Appreciate nephrology assistance. Replace/correct electrolytes. HD per nephrology. Heme/ID. Hemorrhagic shock resolved. Uremia, which may impact platelet function. No further sanguineous drainage from IV access, OGT or ETT suction tubing. Some during oral care. Hgb stable. No evidence of active bleeding. Epistaxis resolved. VW Ag high. Inflammatory reaction. Dr. Barry will discuss with pt family tomorrow. INR, PT and PTT normal. Minimizing blood draw frequency to avoid worsening anemia. Repeat labs AM. Appreciate hematology assistance. Repeat Bld Cx done, Remain negative. Complete 14 day treatment of Vancomycin. Endocrine: Tight glycemic control. Skin: Skin care and pressure ulcer precautions. Plan discussed with: Other (Mother, sister, brother, brother in law and RN present during entire conversation) My Orders My Orders Orders - JITENDRA ZAMORA MD Procedure Category Date Status Time Chest Portable XY 02/16/25 Resulted 04:00 Abg W/ Co-Ox RT 02/16/25 Logged 04:00 D/C [place]/[facility] YANET 02/16/25 In Process 07:07 Amino Acid PHA 02/16/25 In Process Infusion... W/Fat 22:00 Comprehensive LAB 02/17/25 Verified Metabolic Panel 04:00 Magnesium LAB 02/17/25 Verified 04:00 Phosphorus LAB 02/17/25 Verified 04:00 Triglycerides LAB 02/17/25 Verified 04:00 Tpn Per Pharmacy YANET 02/16/25 In Process 22:00 Communication Order ORDERS 02/16/25 Transmitted 07:10 Dietary Evaluation Review Recommendations by RD: PPN/TPN Comments: 1) Increase TPN rate to meet at least 75% of estimated daily needs 2) Advance to renal cardiac diet when medically feasible, pending ST approval 3) Follow-up with cardiology, pulmonology, nephrology, neurology, and gastroenterology 4) Continue to monitor I&O, labs, and skin integrity Expected Outcomes/Goals: 1) nutritional support to meet at least 75% of estimated daily needs 2) labs and wound to improve 3) diet to advance 4) gradual wt loss 5) f/u in 2-3 days JITENDRA ZAMORA MD Feb 16, 2025 13:28
--- NOTE | 2025-02-16 14:42 | DVHPN2 ---
Progress Note - Dictate Date Seen: Feb 16, 2025 Has the PT tested + for MRSA If YES, has PT been informed?: No Medical Necessity Reason Pt with a Central, PICC or Fol: Yes The following are medically ne: Central Line, Mora Catheter Reason for mora catheter: Nakul. Abd Surgery vital signs Vital Sign Date Time Temp Pulse Resp B/P (MAP) Pulse Ox O2 Delivery O2 Flow Rate FiO2 02/16/25 14:00 87 02/16/25 14:00 30 02/16/25 14:00 14 95 Mechanical Ventilator+ 02/16/25 11:58 96/52 (67) 02/16/25 08:00 97.9 97.9 Total Intake and Output 02/15/25 02/15/25 02/16/25 15:00 23:00 07:00 Intake Total 514.813 ml 281.250 ml 519.000 ml Output Total 600 ml 2400 ml Balance 514.813 ml -318.750 ml -1881.000 ml medications Current Medications Medications Dose Ordered Sig/Serenity Route Start Time Stop Time Status Last Admin Dose Admin Midazolam HCl 50 ml @ 1 mls/hr Q24H IV 01/29/25 14:15 01/29/25 15:56 5 MLS/HR Phenylephrine HCl 250 ml @ 30 mls/hr Q8H20M IV 01/29/25 19:30 01/30/25 01:39 116.25 MLS/HR Levalbuterol HCl 0.625 mg Q4HR PRN NEB 01/29/25 20:00 02/16/25 12:12 0.625 MG Ipratropium [place] 0.5 mg Q4HPRN PRN NEB 01/29/25 20:00 02/16/25 12:13 0.5 MG Epinephrine HCl 250 ml @ 7.5 mls/hr Q24H IV 01/30/25 00:15 Vasopressin 20 units/Sodium Chloride 100 ml @ 9 mls/hr Q11H7M IV 01/30/25 07:30 02/03/25 13:09 9 MLS/HR Amino Acids 0 ml @ 0 mls/hr PER PHARMACY IV 02/01/25 11:15 Diagnostic Test (Pha) 1 strip Q6HR 02/01/25 18:00 02/16/25 11:44 1 STRIP Insulin Human Regular FOLLOW SLIDING SCALE Q6HR SC 02/01/25 18:00 02/02/25 11:36 2 UNITS Dextrose 50 ml UD IV 02/01/25 12:30 Vancomycin HCl 0 ml @ 0 mls/hr UD IV 02/04/25 09:00 Sodium Chloride 10 ml QSHIFT@10,22 IV 02/04/25 22:00 02/16/25 10:00 10 ML Neomycin/ Polymyxin/ Bacitracin 1 applic DAILY TOP 02/06/25 10:00 02/16/25 10:47 1 APPLIC Bumetanide 2 mg BIDD IV 02/06/25 18:00 02/16/25 05:30 2 MG Norepinephrine Bitartrate 250 ml @ 0.938 mls/ hr Q24H IV 02/07/25 11:30 02/16/25 11:44 0.938 MLS/HR Artificial Tears 1 drop Q4HP PRN EACHEYE 02/08/25 07:30 Pantoprazole Sodium 40 mg Q12HR IV 02/08/25 22:00 02/16/25 10:46 40 MG Enteral Nutritional Formula 1,000 ml 20 NG 02/11/25 23:15 02/12/25 09:15 1,000 ML Fat Emulsion Intravenous 100 ml/Sodium Chloride 40 meq/ Magnesium Sulfate 2 meq/ Multivitamins 10 ml/Amino Acids/ Dextrose 1,520.5 ml @ 63 mls/hr Q24H9M IV 02/15/25 22:00 02/16/25 21:59 02/15/25 22:01 63 MLS/HR Epoetin Gunnar-epbx 8,000 unit MWF@2100 KS 02/17/25 21:00 Fat Emulsion Intravenous 100 ml/Sodium Chloride 60 meq/ Magnesium Sulfate 2 meq/ Multivitamins 10 ml/Amino Acids/ Dextrose 1,475.5 ml @ 60 mls/hr [id number] IV 02/16/25 22:00 02/17/25 21:59 laboratory and microbiology Laboratory Tests 02/16/25 03:30 Test 02/16/25 03:30 Range/Units Serum Glucose 98 74-106 mg/dL Assessment/Plan Impression Acute hypoxemic respiratory failure S/p cardiac arrest Hypovolemic shock Morbid obesity HARLEEN Patient seen and examined in ICU Events On mechanical ventilation S/p intubation PEEP 5, FiO2 30% No cough or gag. Respiratory drive persists. Patient with pupils fixed and dilated NM brain perfusion study c/w anoxic brain injury Poor chance of meaningful recovery Neurology recommendations appreciated Labs and imaging reviewed ABG reviewed Management Vent support Titrate to maintain sats 90% or above Sedation holiday daily Continue antibiotics Bronchodilators Monitor renal function HD as per nephrology Management deferred Monitor electrolytes Supplement as needed Pressors as needed for hemodynamic support To maintain a mean arterial pressure of 65 mmHg Overall poor prognosis with multiorgan dysfunction, poor chance of meaningful recovery Family agrees with plan for transfer to LTAC, possible trach and PEG placement there DVT prophylaxis Critical care time 35 minutes Dietary Evaluation Review Recommendations by RD: PPN/TPN Comments: 1) Increase TPN rate to meet at least 75% of estimated daily needs 2) Advance to renal cardiac diet when medically feasible, pending ST approval 3) Follow-up with cardiology, pulmonology, nephrology, neurology, and gastroenterology 4) Continue to monitor I&O, labs, and skin integrity Expected Outcomes/Goals: 1) nutritional support to meet at least 75% of estimated daily needs 2) labs and wound to improve 3) diet to advance 4) gradual wt loss 5) f/u in 2-3 days Plan discussed with: Other (Rn) WILL JIMENEZ MD Feb 16, 2025 14:42
[2025-02-16] MEDS: TPN PER PHARMACY IV NR (22:18)
[2025-02-17] VITALS (104 sets, daily range): BP systolic 90–132; BP diastolic 42–93; PULSE 77–108; RESP 14–26; TEMP 97.2–99.4; O2SAT 90–100
[2025-02-17 03:01] LABS: Hematocrit 29.2 % (41.0-53.0); Hemoglobin 9.7 g/dL (13.5-17.5); Mean Corpuscular Hemoglobin 29.4 pg (28.0-32.0); Mean Corpuscular Volume 88.1 fL (80.0-100.0); Nucleated Red Blood Cells % 0.3 %
[2025-02-17 03:22] LABS: Alanine Aminotransferase 30 U/L (7-40); Albumin 3.3 g/dL (3.2-4.8); Alkaline Phosphatase 524 U/L (46-116); Anion Gap 10 (5-15); BUN/Creatinine Ratio 8.7 (10.0-20.0); Blood Urea Nitrogen 54 mg/dL (9-23); Calcium 9.6 mg/dL (8.7-10.4); Carbon Dioxide 29 mmol/L (20-31); Chloride 97 mmol/L (98-107); Glucose 100 mg/dL (74-106); Magnesium 2.0 mg/dL (1.6-2.6); Potassium 4.7 mmol/L (3.5-5.1); Sodium 136 mmol/L (136-145); Total Protein 7.4 g/dL (5.7-8.2)
[2025-02-17 03:23] LABS: Bilirubin, Total 1.6 mg/dL (0.2-1.0)
[2025-02-17 04:52] LABS: Triglycerides 167 mg/dL (< 150)
[2025-02-17] MEDS ORDERED: HYDROmorphone HCL 2 MG/ML VL/or syr ONE (06:59)
[2025-02-17] MEDS ORDERED: ETOMIDATE (2MG/ML) 20ML VIAL IV ONE (07:00)
[2025-02-17] MEDS ORDERED: MIDAZOLAM HCL 2MG/2ML 2ml VIAL (1mg/ml) ONE (07:00)
[2025-02-17] MEDS ORDERED: fentaNYL CITRATE 5 ML ONE (07:00)
[2025-02-17] MEDS ORDERED: SODIUM CHLORIDE LOCK 50 ML ONE (07:00)
[2025-02-17] MEDS ORDERED: fentaNYL CITRATE 100 MCG/2 ML VL ONE (07:00)
[2025-02-17] MEDS ORDERED: LIDOCAINE 1% INJ PF 5ML AMP ONE (07:00)
[2025-02-17] MEDS: BUPIVACAINE HCL 50 ML ONE (07:16)
[2025-02-17] MEDS: LIDOCAINE 1% HCL (LOCAL ANESTH.) INJ 20ML MDV ONE (07:16)
--- NOTE | 2025-02-17 08:51 | DVHPN2 ---
Progress Note - Dictate Date Seen: Feb 17, 2025 Has the PT tested + for MRSA If YES, has PT been informed?: No Medical Necessity Reason Pt with a Central, PICC or Fol: Yes The following are medically ne: Central Line, Mora Catheter Reason for mora catheter: Nakul. Abd Surgery vital signs Vital Sign Date Time Temp Pulse Resp B/P (MAP) Pulse Ox O2 Delivery O2 Flow Rate FiO2 02/17/25 08:00 82 14 96 Mechanical Ventilator+ 30 30 02/17/25 06:32 97/48 02/17/25 04:00 97.5 97.5 Total Intake and Output 02/16/25 02/16/25 02/17/25 15:00 23:00 07:00 Intake Total 451.316 ml 519.925 ml 446.25 ml Output Total 750 ml 465 ml Balance 451.316 ml -230.075 ml -18.75 ml medications Current Medications Medications Dose Ordered Sig/Serenity Route Start Time Stop Time Status Last Admin Dose Admin Midazolam HCl 50 ml @ 1 mls/hr Q24H IV 01/29/25 14:15 01/29/25 15:56 5 MLS/HR Phenylephrine HCl 250 ml @ 30 mls/hr Q8H20M IV 01/29/25 19:30 01/30/25 01:39 116.25 MLS/HR Levalbuterol HCl 0.625 mg Q4HR PRN NEB 01/29/25 20:00 02/16/25 12:12 0.625 MG Ipratropium Krebs 0.5 mg Q4HPRN PRN NEB 01/29/25 20:00 02/16/25 12:13 0.5 MG Epinephrine HCl 250 ml @ 7.5 mls/hr Q24H IV 01/30/25 00:15 Vasopressin 20 units/Sodium Chloride 100 ml @ 9 mls/hr Q11H7M IV 01/30/25 07:30 02/03/25 13:09 9 MLS/HR Amino Acids 0 ml @ 0 mls/hr PER PHARMACY IV 02/01/25 11:15 Diagnostic Test (Pha) 1 strip Q6HR 02/01/25 18:00 02/17/25 06:33 1 STRIP Insulin Human Regular FOLLOW SLIDING SCALE Q6HR SC 02/01/25 18:00 02/02/25 11:36 2 UNITS Dextrose 50 ml UD IV 02/01/25 12:30 Vancomycin HCl 0 ml @ 0 mls/hr UD IV 02/04/25 09:00 Sodium Chloride 10 ml QSHIFT@10,22 IV 02/04/25 22:00 02/16/25 22:21 10 ML Neomycin/ Polymyxin/ Bacitracin 1 applic DAILY TOP 02/06/25 10:00 02/16/25 10:47 1 APPLIC Bumetanide 2 mg BIDD IV 02/06/25 18:00 02/17/25 06:32 2 MG Norepinephrine Bitartrate 250 ml @ 0.938 mls/ hr Q24H IV 02/07/25 11:30 02/16/25 11:44 0.938 MLS/HR Artificial Tears 1 drop Q4HP PRN EACHEYE 02/08/25 07:30 Pantoprazole Sodium 40 mg Q12HR IV 02/08/25 22:00 02/16/25 22:29 40 MG Enteral Nutritional Formula 1,000 ml 20 NG 02/11/25 23:15 02/12/25 09:15 1,000 ML Epoetin Gunnar-epbx 8,000 unit MWF@2100 SC 02/17/25 21:00 Fat Emulsion Intravenous 100 ml/Sodium Chloride 60 meq/ Magnesium Sulfate 2 meq/ Multivitamins 10 ml/Amino Acids/ Dextrose 1,475.5 ml @ 60 mls/hr [id number] IV 02/16/25 22:00 02/17/25 21:59 02/16/25 22:18 60 MLS/HR laboratory and microbiology Laboratory Tests 02/17/25 02:40 Test 02/17/25 02:40 Range/Units Serum Glucose 100 74-106 mg/dL Assessment/Plan Still in ICU. On vent support. No gross higher brain reflexes. Pupils are dilated and fixed. Anoxic/Hypoxic Encephalopathy No reported arrhythmia overnight Had Tracheostomy earlier today AM (successfully) Back on low dose Levophed Echocardiogram revealed no WMA and also revealed good EF. It also revealed increased Pulmonary Artery Pressure in favor of component of Pulmonary Hypertension. s/p Hemodialysis Received blood and platelet transfusion repeatedly Patient is a 24-year-old gentleman who was originally brought to the hospital for post arrest. Patient is seen in postop area. Patient is intubated and on multiple pressor supports. Patient is not source of history. Information was obtained by reviewing the chart, talking to patient's family/mother and communicating with staff and reviewing outside records ([facility]). Patient did have elective outpatient laparoscopic cholecystectomy in [facility] on January 28 2025. As per mother, after going home, patient was feeling very hungry and was eating and drinking a lot. He started feeling abdominal pain with nausea at night and in the morning was short of breath. As per mother: patient has stopped breathing in the morning and family called 911. As per mother, as per guidance of 911, family started CPR until EMS arrived. Patient was intubated and was brought to the hospital by EMS. Since arrival to [facility], patient was seen by surgeon who took the patient to operating room and performed laparotomy (there was hepatic hematoma). Postoperatively, the patient has remained hypotensive. There is signs for multiorgan involvement. Patient was not alert and did not complain of any chest pains. Labs revealed increased troponin. Cardiology is involved for cardiac aspects of care and abnormal troponin. First available EKG reveals sinus tachycardia with no specific ST-T changes. Telemetry had revealed sinus tachycardia throughout the stay. Patient is found to have significant anemia and is receiving blood transfusion at the time of evaluation. It is of note that at the time of evaluation patient does not have any reflexes. Intubated. Mucosa pale. Dilated and fixed pupils, Scattered rhonchi in the lungs. Cardiac: Tachycardic. No murmur. Abdomen is covered by dressing. Extremities do not reveal any edema. Dorsalis pedis is 1+ bilateral. Patient does not respond to any stimuli. Reported past medical history includes asthma and obesity. Reportedly, on January 23, 2025: Patient presented to [facility] for abdominal pain/nausea/vomiting. At that point the problems were ongoing for few weeks. In [facility], CT of the abdomen and MRCP were performed. Patient was seen by GI/surgery. Patient was found to have gallstones. Patient was discharged and later on January 28, 2025 presented back to [facility] for elective laparoscopy cholecystectomy. Patient was discharged home from [facility] after laparoscopic cholecystectomy. As per mother, patient does not have baseline history of any cardiac history. As per mother, patient was using marijuana. Mother denies any previous substance abuse besides marijuana. No specific family history is reported On January 23, 2025, labs in [facility] revealed creatinine of 0.84, hemoglobin of 15.2 and troponin (high sensitive) of <3. At that point EKG was normal WBC: 20.1 - 19.0 - 22.7 - 20.6 - 28.4 - 20.3 - 21.0 - 25.2 - 29.8 - 29.5 - 29.0 - 26.2 - 21.7 - 19.7 - 17.7 - 15.3 - 12.2 - 10.5 - 11.2 - 13.0 - 10.7 - 9.0 - 9.0 - 10.3 - 10.3 - 10.1 - 11.0 Hemoglobin: 8.3 - 6.5 - 12.1 - 11.1 - 12.1 - 9.3 - 9.2 - 9.1 - 8.4 - 9.0 - 9.5 - 8.8 - 8.4 - 8.0 - 9.7 - 9.6 - 9.8 - 9.6 - 9.7 - 9.8 - 9.1 - 8.5 - 8.8 - 8.9 - 8.7 - 8.8 - 9.7 Fibrinogen: 108 - 316 - 537 - 689 - >860 Creatinine: 4.02 - 3.78 - 3.90 - 3.95 - 4.34 - 5.44 - 6.05 - 6.73 - 7.31 - 7.77 - 6.64 - 7.30 - 4.91 - 5.32 - 7.40 - 5.98 - 7.66 - 6.28 - 7.71 - 8.67 - 6.87 - 5.62 - 7.59 - 8.95 - 7.51 - 9.04 - 6.23 Potassium: 5.6 - 4.6 - 4.8 - 3.9 - 2.9 - 2.9 - 3.6 - 3.8 - 4.9 - 5.4 - 6.0 - 5.1 - 5.3 - 6.1 - 6.0 - 4.6 - 4.4 - 4.3 - 3.5 - 3.4 - 3.7 - 4.5 - 5.7 - 5.2 - 4.0 - 3.8 - 4.1 - 4.5 - 4.9 - 4.7 AST/ALT: 676/700 - 2327/2056 - 4636/2521 - -/1995 - 2500/1989 - 1780/1821 - 808/995 - 586/735 - 456/444 - 312/290 - 237/163 - 215/125 - 190/87 - 200/74 - 202/66 - 189/53 - 186/44 - 186/45 - 192/38 - 193/34 - 214/34 - 195/30 Lactic acid: 17.9 - 17.2 - 11.4 Troponin (high sensitive): 5413 - 2712 - 436 - 7019 - 9265 TSH: 11.05 Urine Toxicology: positive for Fentanyl and Benzodiazepine Chest x-ray revealed: Lines and Tubes: Endotracheal tube projects 2.2 cm above the meghan. Right internal jugular central venous catheter tip projects over superior vena cava. Lungs: No focal consolidation. Low lung volumes. Pleura: No effusion. No pneumothorax. Cardiomediastinal contours: Unremarkable Bones: No acute osseous abnormality. IMPRESSION: Lines and tubes as above. Low lung volumes. Repeat chest x-ray revealed: IMPRESSION: Lines and tubes in satisfactory position. Mild increased pulmonary vascular congestion Repeat chest xry revealed: IMPRESSION: Lines and tubes in satisfactory position. Mild increased pulmonary vascular congestion Repeat chest xry revealed: IMPRESSION: 1. Low lung volumes with concomitant crowding of the pulmonary vasculature. 2. No evidence of focal consolidation. 3. Lines and tubes unchanged. Repeat chest xry revealed: IMPRESSION: 1. Slight interval retraction of the endotracheal tube such that the tip now projects approximately 4.7 cm above the level of the meghan. Remaining lines and tubes unchanged. 2. Otherwise no significant change compared to prior exam. Repeat chest xry revealed: IMPRESSION: 1. Slight interval advancement of endotracheal tube such that the tip now projects approximately 1.7 cm above the level of the meghan. Remaining lines and tubes unchanged. 2. Otherwise no significant change compared to prior exam. Repeat chest xry revealed: IMPRESSION: 1. Slight interval retraction of the endotracheal tube such that the tip now projects approximately 3.3 cm above the level of the meghan. Remaining lines and tubes unchanged. 2. No evidence of acute cardiopulmonary process. Repeat chest xry revealed: IMPRESSION: 1. Endotracheal tube in appropriate position. Remaining lines and tubes unchanged. 2. No evidence of acute cardiopulmonary process. Repeat chest xry revealed: IMPRESSION: 1. Small right pleural effusion. 2. Lines and tubes unchanged. Repeat chest xry revealed: IMPRESSION: 1. Small right pleural effusion. 2. Lines and tubes unchanged. Repeat chest xry revealed: IMPRESSION: 1. Small bilateral pleural effusions. 2. Lines and tubes unchanged. Repeat chest xry revealed: IMPRESSION: 1. Slight interval advancement of the endotracheal tube. Remaining lines and tubes unchanged. 2. No evidence of acute cardiopulmonary process. Repeat chest xry revealed: IMPRESSION: 1. Slight interval retraction of the endotracheal tube such that the tip now projects approximately 3.3 cm above the level of the meghan. Remaining lines and tubes unchanged. 2. No evidence of acute cardiopulmonary process. Repeat chest xry revealed: Bowel gas pattern is unremarkable. Enteric tube tip projects over the expected region of the stomach. The lung bases demonstrates bibasilar atelectasis. The lower pelvis is collimated from field of view. No acute osseous abnormality identified. Repeat chest xry revealed: Lines and Tubes: Endotracheal tube tip projects approximately 5.1 cm above the level of the meghan. Enteric catheter terminates within the gastric lumen. Right peripherally inserted central catheter tip and left subclavian central venous catheter tip project over the distal superior vena cava. Lungs: Clear Pleura: No effusion. No pneumothorax. Cardiomediastinal contours: Unremarkable Bones: Unremarkable IMPRESSION: 1. No radiographic evidence of acute cardiopulmonary abnormality. 2. Lines and tubes as above. Repeat chest xry revealed: IMPRESSION: 1. Stable position of the support lines and tubes. 2. Bibasilar airspace disease which may reflect atelectasis and/or pneumonia. Possible small bilateral pleural effusions. Repeat chest xry revealed: IMPRESSION: 1. Lines and tubes unchanged. 2. Persistently diminished lung volumes with concomitant exaggeration of the pulmonary vasculature. No evidence of acute cardiopulmonary process. Repeat chest xry revealed: IMPRESSION: 1. No acute cardiopulmonary disease. 2. Lines and tubes as above. Repeat chest xry revealed: IMPRESSION: 1. Intervally placed right IJ catheter projects in appropriate remaining support devices are stable.2. No other significant change from the previous study. Persistent low lung volumes with vascular crowding and basilar atelectasis. Repeat chest xry revealed: IMPRESSION: Heart is stable in size. There are low lung volumes with probable small left pleural effusion and bibasilar atelectasis. Support lines and tubes appear unchanged in satisfactory position. No pneumothorax. No significant interval change. Brain scan revealed: FINDINGS: Absence of cerebral blood flow is noted along with no brain parenchymal radiotracer uptake. Increased activity is seen in the central face likely representing vascular shunting consistent with the so-called "hot nose" sign. Findings suggest brain however clinical correlation is necessary. IMPRESSION: Findings described above, which would be consistent with brain in the appropriate clinical setting, however clinical correlation is needed. CT of the chest/abdomen/pelvis revealed: IMPRESSION: 1. Hepatic hematoma measuring up to approximately 8.6 cm in greatest dimension, as described above, with hemorrhage extending beyond the liver capsule and into the right pericolic gutter as well as into the pelvis. No definite active arterial bleeding is seen on this exam, although limited evaluation due to the timing of contrast, as this was not a CTA exam. 2. Postsurgical changes of cholecystectomy. 3. Dilated fluid-filled small bowel loops, may be due to postoperative ileus. No small bowel obstruction. 4. Small volume pneumoperitoneum, likely due to recent surgery. Small volume of gas are seen in the upper ventral abdomen from the recent surgery. 5. Dependent atelectasis in the lower lobes. Otherwise, no acute disease in the chest. 6. Endotracheal tube and enteric tube in place. 7. Atrophic right kidney incidentally noted. 8. Additional findings as described above. Critical findings Critical Result: Acute hepatic hematoma with hemorrhage extending beyond the liver capsule into the adjacent portions of the abdomen and into the pelvis as detailed above. Repeat CT of chest/abdomen/pelvis revealed: There is limited interpretation of the chest, abdomen and pelvis without administration of intravenous contrast. Endotracheal tube tip terminates just at the meghan / left main bronchus. Diffuse bilateral pulmonary airspace consolidation bilaterally significantly increased. Bilateral lower lobe lobar consolidation/ atelectasis, increased from prior. Small bilateral pleural effusions. There is extensive edema/ stranding within the upper anterior chest, neck region/supraclavicular region. There is some hyperdensity within this region which could represent components of hematoma / blood products. Heterogeneous appearance of the thyroid gland. Right IJ catheter terminating at the cavoatrial junction. Adrenal glands unremarkable in shape. Perisplenic hematoma. Interval postsurgical changes in the right upper quadrant of the abdomen. There appears to be surgicel/gaseous collection within the previous hematoma cavity, likely representing surgicel. There is a radiopaque density within the resection cavity as well which measures 6.2 x 4.6 cm.. Postoperative changes of the right anterior abdomen with soft tissue emphysema. Small amount of pneumoperitoneum Surgical drainage catheter terminating in the right upper quadrant of the abdomen Right renal parenchymal atrophy. Left kidney demonstrates perinephric edema / stranding. No left hydronephrosis. Nasogastric tube projects towards the distal stomach. Moderate distention small bowel loops. Rectal catheter. Moderate distention of the large bowel loops. Normal appendix. Abdominal aorta normal in caliber. Small amount of ascites fluid/ mesenteric edema. Bladder decompressed by Mora catheter. Soft tissue edema /anasarca. Mesenteric edema. Small amount of ascites fluid. The osseous structures are stable. IMPRESSION: Limited evaluation without contrast. Interval evacuation of the right upper quadrant hematoma. Surgicel within the resection cavity. No significant interval development of new hematoma. There are 2 radiopaque lap pads within the resection cavity . Findings reviewed with Dr. Ledesma at 11:51 a.m. on 01/30/2025 Perisplenic hematoma, similar to previous examination. Extensive bilateral pulmonary airspace consolidation, significantly increased from previous examination. Small bilateral pleural effusions. Right upper quadrant drainage catheter. Pneumoperitoneum. Soft tissue edema / anasarca. Small amount of ascites fluid/ mesenteric edema. Extensive edema within the anterior chest, neck region. Heterogeneous appearance thyroid gland. Other findings as described. CT of the head revealed: IMPRESSION: 1. No evidence of acute intracranial abnormality. Repeat CT of head revealed: FINDINGS: Cerebellar tonsilar herniation. There is sulcal and ventricular effacement. The basal cisterns are effaced. Loss of mario-white matter differentiation is noted. The skull and visible facial bones are intact. The paranasal sinuses, mastoid air cells and middle ear cavities are well-aerated. The soft tissues of the scalp are unremarkable. IMPRESSION: Diffuse cerebral edema with cerebellar tonsillar herniation. Recommend MRI brain for further evaluation. Repeat CT of head revealed: FINDINGS: There is diffuse low attenuation throughout the brain with increased effacement of the ventricles and complete sulcal effacement. There is cerebellar tonsillar herniation. The orbits are normal. There is moderate mucosal thickening within the paranasal sinuses and mastoid air cells. The soft tissues and osseous structures appear within normal limits. IMPRESSION: 1. Findings as above suggesting worsening diffuse cerebral edema in the setting of anoxic brain injury in the given clinical setting. Further clinical correlation is suggested. CT of Neck revealed: IMPRESSION: Limited evaluation without contrast. Extensive soft tissue edema within the neck extending into the anterior / upper chest and anterior mediastinum . Retropharyngeal edema. Heterogeneous appearance of the thyroid gland. Inferior cerebellar tonsillar herniation better seen on the prior CT Renal Ultrasound revealed: IMPRESSION: 1. Right kidney not visible. 2. Left kidney is enlarged. 3. No hydronephrosis. Venous duplex of lower ext revealed: IMPRESSION: NO SONOGRAPHIC EVIDENCE FOR DEEP VENOUS THROMBOSIS IN THE RIGHT LOWER EXTREMITY VEINS. EEG reported: This is a remarkably abnormal EEG, this EEG seen in severe cerebral dysfunction due to metabolic/hypoxic encephalopathy or medication effects, unless this is caused by reversible etiology, this EEG is suggestive of a poor prognosis for meaningful recovery, please correlate clinically. Arrival EKG revealed sinus tachycardia with nonspecific ST-T changes Tele reveals sinus tachycardia Echocardiogram revealed: Technically limited study secondary to poor acoustic windows. Left ventricle: Left ventricle was normal-sized with normal systolic function. LVEF was 55-60%. No gross wall motion abnormality was seen. Right ventricle was mildly dilated with normal systolic function. Left atrium was normal-sized. Right atrium was mildly dilated. Aortic valve: Aortic valve was not well visualized. There was no aortic insufficiency/stenosis. There was no mitral regurgitation. There was trace tricuspid regurgitation. Pulmonary valve was not well visualized. IVC was not visualized. Right ventricular systolic pressure was assessed around 48 mm Hg. There was no pericardial effusion. Patient is a 24-year-old gentleman who presented with post arrest. It seems that the patient had hemorrhagic (intra-abdominal) presentation. Patient did have elective laparoscopic cholecystectomy the day before presentation. On the day of presentation, the patient was taken back to operating room and this time Laparotomy was done for hepatic hematoma. Patient does have multiorgan involvement. Clinically there is no brainstem reflexes. Shock liver/acute renal failure is considered. Troponin has been high. EKG did not reveal any STEMI. Presentation could be high troponin secondary to demand physiology. Patient does not have any risk factors for baseline coronary artery disease. In ideal scenario, ischemic workup/cardiac catheterization could be more revealing. Unfortunately, the patient does have acute renal failure which could be worsened by cardiac catheterization at this point. As there was no higher brain functions the suggestion is to wait and see if patient regains any higher brain function. It is of note that during cardiac catheterization, the patient may need some anticoagulation/antiplatelets. At this point patient is having significant anemia/bleeding and receiving blood transfusion and holding off of scenario forcing Anticoagulation/antiplatelets is advised. I had a long discussion with family members and Mother (repeatedly). Clinically patient has multiorgan failure. Secondary to active bleeding, we will avoid anticoagulation/antiplatelets for now. Being managed in ICU. Was taken to OR repeatedly. Still no reflexes. Echocardiogram revealed no WMA and also revealed good EF. It also revealed increased Pulmonary Artery Pressure in favor of component of Pulmonary Hypertension. Review of Echo images revealed good right ventricular systolic function. Not typical for Pulmonary Emboli. Still, PE cannot be ruled out. If PE is ruled out, then it is possible that patient had Pulmonary Hypertension from before (Baseline history of Asthma may actually reflect it). s/p PRBC transfusion (multiple). Being followed by Surgery, Nephrology, Hematology, Pulmonary, Neurology and GI. . Repeat imaging revealed cerebellar tonsillar herniation. Neurology diagnosed Hypoxic/Metabolic Encephalopathy also. EEG findings question meaningful recovery. Neurology declared patient: brain . Neurology second opinion was in favor of Anoxic/Hypoxic Encephalopathy. Repeat imaging of brain revealed worsening diffuse cerebral edema and also again revealed cerebellar tonsillar herniation. Family are contemplating Trach/PEG. Patient is seen by GI. s/p Tracheostomy s/ p Arrest Intra-abdominal bleeding Hepatic hematoma Multiorgan failure, due to shock Shock liver Lactic Acidosis Acute renal failure Acute respiratory failure, on vent support Status post laparotomy Status post laparoscopic cholecystectomy Abnormal troponin, evaluated to reflect possible demand physiology History of gallstones History of asthma Obesity History of marijuana abuse Consumptive Coagulopathy / DIC Pulmonary Hypertension Cerebellar tonsillar Herniation. Encephalopathy, hypoxic/metabolic Renal failure, started on hemodialysis Brain scan questions brain Anoxic Encephalopathy s/p Tracheostomy Cardiac suggestion for management: Manage in ICU Follow-up electrolytes and kidney function tests and correct abnormalities Evaluation and management of respiratory failure as per Pulmonary Evaluation and management of Cerebellar tonsillar herniation and worsening cerebral edema as per Neurology/surgery/primary team V/Q scan could not be completed Anoxic/Hypoxic Encephalopathy Echocardiogram revealed no WMA and also revealed good EF. It also revealed increased Pulmonary Artery Pressure in favor of component of Pulmonary Hypertension. Hematology follow up (to comment on prophylaxis / treatment of Pulmonary Emboli) Surgical follow up Nephrology follow up (started on hemodialysis) and Hematology follow up Family are contemplating Trach/PEG. Patient is seen by GI Cardiac vidales, moderate risk patient for PEG placement. Avoid Hypotension. DVT prophylaxis as per primary team (compression stocking Vs Lovenox..) Long-term prognosis depends on the above and most importantly regaining of the higher brain function: looks very grim Ischemic workup may be considered only after regaining higher brain function or any special change in clinical presentation Further evaluation and management depends on the above and clinical course A total of 75 minutes was spent reviewing the patient record, examining the patient, making a diagnostic and therapeutic plan, discussing this plan with medical personnel, following up on diagnostic studies and following the patient for clinical stability excluding any and all procedures. At least 50% of this time was spent in direct, [id number] contact. Thank you for allowing me to participate in this patient's care. Further recommendations will depend on patient's clinical course. Please do not hesitate to contact me if you have any questions or concerns. This medical document was created using electronic medical record system with [employer] computerized dictation system. Although this document has been carefully reviewed, there may still be some phonetic and typographical errors. These areas are purely typographical due to the imperfection of the software programs, and do not reflect any compromise in the patient's medical care. Dietary Evaluation Review Recommendations by RD: PPN/TPN Comments: 1) Increase TPN rate to meet at least 75% of estimated daily needs 2) Advance to renal cardiac diet when medically feasible, pending ST approval 3) Follow-up with cardiology, pulmonology, nephrology, neurology, and gastroenterology 4) Continue to monitor I&O, labs, and skin integrity Expected Outcomes/Goals: 1) nutritional support to meet at least 75% of estimated daily needs 2) labs and wound to improve 3) diet to advance 4) gradual wt loss 5) f/u in 2-3 days Plan discussed with: Other (nurse, also (mother at bedside)) KATHLEEN COHEN MD Feb 17, 2025 08:51
[2025-02-17 09:34] LABS: Base Excess 1.9 mmol/L (-2.0-3.0)
--- NOTE | 2025-02-17 09:35 | DVHPN2 ---
Progress Note Date Seen: Feb 17, 2025 Has the PT tested + for MRSA If YES, has PT been informed?: No Medical Necessity Reason Pt with a Central, PICC or Fol: Yes The following are medically ne: Mora Catheter Reason for mora catheter: Nakul. Abd Surgery, Strict I&O, Total Immobilization Subjective Review of Systems Pt seen earlier this morning before surgery. Per RN no events overnight. Levophed at 2 mcg/kg Objective vital signs Vital Sign Date Time Temp Pulse Resp B/P (MAP) Pulse Ox O2 Delivery O2 Flow Rate FiO2 02/17/25 08:00 82 14 96 Mechanical Ventilator+ 30 30 02/17/25 08:00 97.6 100/50 (67) 97.6 Total Intake and Output 02/16/25 02/16/25 02/17/25 14:59 22:59 06:59 Intake Total 451.316 ml 521.050 ml 510.00 ml Output Total 750 ml 465 ml Balance 451.316 ml -228.950 ml 45.00 ml medications Current Medications Medications Dose Ordered Sig/Serenity Route Start Time Stop Time Status Last Admin Dose Admin Midazolam HCl 50 ml @ 1 mls/hr Q24H IV 01/29/25 14:15 01/29/25 15:56 5 MLS/HR Phenylephrine HCl 250 ml @ 30 mls/hr Q8H20M IV 01/29/25 19:30 01/30/25 01:39 116.25 MLS/HR Levalbuterol HCl 0.625 mg Q4HR PRN NEB 01/29/25 20:00 02/16/25 12:12 0.625 MG Ipratropium G[place] 0.5 mg Q4HPRN PRN NEB 01/29/25 20:00 02/16/25 12:13 0.5 MG Epinephrine HCl 250 ml @ 7.5 mls/hr Q24H IV 01/30/25 00:15 Vasopressin 20 units/Sodium Chloride 100 ml @ 9 mls/hr Q11H7M IV 01/30/25 07:30 02/03/25 13:09 9 MLS/HR Amino Acids 0 ml @ 0 mls/hr PER PHARMACY IV 02/01/25 11:15 Diagnostic Test (Pha) 1 strip Q6HR 02/01/25 18:00 02/17/25 06:33 1 STRIP Insulin Human Regular FOLLOW SLIDING SCALE Q6HR SC 02/01/25 18:00 02/02/25 11:36 2 UNITS Dextrose 50 ml UD IV 02/01/25 12:30 Vancomycin HCl 0 ml @ 0 mls/hr UD IV 02/04/25 09:00 Sodium Chloride 10 ml QSHIFT@10,22 IV 02/04/25 22:00 02/16/25 22:21 10 ML Neomycin/ Polymyxin/ Bacitracin 1 applic DAILY TOP 02/06/25 10:00 02/16/25 10:47 1 APPLIC Bumetanide 2 mg BIDD IV 02/06/25 18:00 02/17/25 06:32 2 MG Norepinephrine Bitartrate 250 ml @ 0.938 mls/ hr Q24H IV 02/07/25 11:30 02/16/25 11:44 0.938 MLS/HR Artificial Tears 1 drop Q4HP PRN EACHEYE 02/08/25 07:30 Pantoprazole Sodium 40 mg Q12HR IV 02/08/25 22:00 02/16/25 22:29 40 MG Enteral Nutritional Formula 1,000 ml 20 NG 02/11/25 23:15 02/12/25 09:15 1,000 ML Epoetin Gunnar-epbx 8,000 unit MWF@2100 KS 02/17/25 21:00 Fat Emulsion Intravenous 100 ml/Sodium Chloride 60 meq/ Magnesium Sulfate 2 meq/ Multivitamins 10 ml/Amino Acids/ Dextrose 1,475.5 ml @ 60 mls/hr [id number] IV 02/16/25 22:00 02/17/25 21:59 02/16/25 22:18 60 MLS/HR Fat Emulsion Intravenous 100 ml/Sodium Chloride 80 meq/ Magnesium Sulfate 2 meq/ Multivitamins 10 ml/Amino Acids/ Dextrose 1,480.5 ml @ 62 mls/hr [id number] IV 02/17/25 22:00 02/18/25 21:59 Examination Neuro. Unchanged. Dilated fixed pupils. No reflexes. CV. Hr 90s. Hemodynamically unstable. Levophed at 2 mcg/kg. LSCV catheter remains in place, in spite of asking RN last night to remove it. C/DI site. Right PC and PICC catheter exit sites remain C/D/I. Epistaxis, resolved. Some minimal blood during oral care. Pulmonary: Intubated with mechanical ventilator support 500/14/30%/+7. RR 15/min. ETT suction tubing clean. GI: Soft, obese, mildly distended and non tender. Incisions and dressing C/D/I. OGT no output. No further sanguineous output. . Mora catheter in place. Clear yellow urine in collection bag Extremities. No edema Resolved facial and neck edema. Mild orbital edema laboratory and microbiology Laboratory Tests 02/17/25 02:40 Test 02/17/25 02:40 Range/Units Serum Glucose 100 74-106 mg/dL Microbiology Date/Time Source Procedure Growth Status 02/09/25 03:40 Blood Blood Culture - Final NO GROWTH AFTER 5 DAYS OF INCUBATION. 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 CT revealed cerebral edema and tonsillar herniation.EEG no electric activity. Cerebral perfusion study confirmed no perfusion radiographically consistent with brain which was concordant with initial clinical diagnosis and EEG. However, pt continues demonstrating brainstem function as he is breathing over vent set rate of 14. RR. There seems to be autonomic dysfunction. Pt's BP fluctuating and RR. F/U (3rd) CT brain worsening cerebral edema and tonsillar herniation. Mother and brother informed. CV: Has been demonstrating episodes hypotension, likely autonomic deregulation secondary to brain injury.Wean vasopressor as tolerated. Cardiology assistance appreciated. Mechanical DVT prophylaxis. Unlikely PE (can't rule it out) but patient oxygenating well, no tachycardia. Pulmonary hypertension possibly unknowingly preexistent. Pulmonary: VDRF. Continue ventilator. Appreciate pulmonary medicine assistance. No expectoration/phlegm upon suctioning. Pulmonary medicine following. Tracheostomy completed. CXR reviewed. Pending official report. Mother and brother made aware. Pt approved for preferred subacute [facility] facility with inpatient HD. GI: OGT to suction. Continue TPN. Continue BID GI prophylaxis. Hepatic shock. Pending PEG for discharge. . ARF/ATN secondary to hemorrhagic shock. Uremia and elevated crea. Strict I&O. Stable u/o. Mora to gravity. Appreciate nephrology assistance. Replace/correct electrolytes. HD per nephrology. Heme/ID. Hemorrhagic shock resolved. Uremia, which may impact platelet function. No further sanguineous drainage from IV access, OGT or ETT suction tubing. Some bleeding during oral care. Hgb stable. No evidence of active bleeding. Epistaxis resolved. VW Ag high. Inflammatory reaction. Dr. Barry will discuss with pt family tomorrow. INR, PT and PTT normal. Minimizing blood draw frequency to avoid worsening anemia. Repeat labs AM. Appreciate hematology assistance. Repeat Bld Cx done, Remain negative.D/C Vancomycin tomorrow. Endocrine: Tight glycemic control. Skin: Skin care and pressure ulcer precautions. Plan discussed with: Other (Mother, brother and RN) My Orders My Orders Orders - JITENDRA ZAMORA MD Procedure Category Date Status Time Amino Acid PHA 02/16/25 In Process Infusion... W/Fat 22:00 Tpn Per Pharmacy YANET 02/16/25 In Process 22:00 Communication Order ORDERS 02/16/25 Transmitted 07:10 Obtain Consent For: ORDERS 02/17/25 Transmitted 09:00 Abg W/ Co-Ox RT 02/17/25 Logged 06:00 Chest Portable XY 02/17/25 Logged 09:17 Amino Acid PHA 02/17/25 In Process Infusion... W/Fat 22:00 Comprehensive LAB 02/18/25 Verified Metabolic Panel 05:00 Magnesium LAB 02/18/25 Verified 05:00 Phosphorus LAB 02/18/25 Verified 05:00 Tpn Per Pharmacy [facility]ANET 02/17/25 In Process 09:23 Dietary Evaluation Review Recommendations by RD: PPN/TPN Comments: 1) Increase TPN rate to meet at least 75% of estimated daily needs 2) Advance to renal cardiac diet when medically feasible, pending ST approval 3) Follow-up with cardiology, pulmonology, nephrology, neurology, and gastroenterology 4) Continue to monitor I&O, labs, and skin integrity Expected Outcomes/Goals: 1) nutritional support to meet at least 75% of estimated daily needs 2) labs and wound to improve 3) diet to advance 4) gradual wt loss 5) f/u in 2-3 days JITENDRA ZAMORA MD Feb 17, 2025 09:35
--- NOTE | 2025-02-17 09:54 | DVH ---
CHEST RADIOGRAPH Indication: post trach Technique: Single frontal view of the chest was obtained COMPARISON: XY CHEST PORTABLE on DOS: 02/16/25, XY CHEST PORTABLE on DOS: 02/15/25, XY CHEST PORTABLE o n DOS: 02/14/25, XY CHEST PORTABLE on DOS: 02/13/25, XY CHEST PORTABLE on DOS: 02/12/25 FINDINGS: Lines and Tubes: Tracheostomy in satisfactory position, enteric catheter in satisfactory position, ri ght PICC in satisfactory position, tunneled right central venous catheter in satisfactory position. Lungs: Pulmonary vascular congestion. Pleura: No effusion. No pneumothorax. Cardiomediastinal contours: Unremarkable. Bones: Unremarkable. IMPRESSION: Lines and tubes in satisfactory position. No significant interval change.
--- NOTE | 2025-02-17 10:27 | DVHOP ---
DATE OF SURGERY: 02/17/2025 PREOPERATIVE DIAGNOSIS: Anoxic brain injury. POSTOPERATIVE DIAGNOSIS: Anoxic brain injury. PROCEDURE: Tracheostomy. SURGEON: Robbin Ledesma MD BRANCH CONTROLLER: None. ANESTHESIOLOGIST: Dr. Cantu. ANESTHESIA: General. INTRAOPERATIVE FINDINGS: Excellent tidal volume at completion of tracheostomy. ESTIMATED BLOOD LOSS: Minimal. INTRAVENOUS FLUIDS: Per Anesthesia charting. URINE OUTPUT: Per RN charting. DRAINS: None. IMPLANTS: A 7-Guinean tracheostomy. SPECIMENS: None. COMPLICATIONS: None other than difficult procedure given the patient's obese state. Procedure well tolerated and transferred to recovery room in a stable condition. INDICATIONS FOR PROCEDURE: The patient is an unfortunate 24-year-old male with an anoxic brain injury. The patient's family have decided to proceed with full care. Therefore, tracheostomy and percutaneous endoscopic gastrostomy were advised. The percutaneous endoscopic gastrectomy will be performed by GI. A lengthy discussion was held with the patient's family yesterday and presented with the tracheostomy procedure along with its inherent risks and benefits. Everything was explained in a detailed and extensive fashion. Their questions were answered. They understood and agreed to proceed. DESCRIPTION OF PROCEDURE: The patient was taken to the operating room. He was placed in a dorsal decubitus position on the operating table with a shoulder roll, with both arms tucked to his side, paying careful attention and providing adequate positioning as well as padding to prevent any potential injuries. The head of the bed was extended in order to obtain maximum extension of the neck to displace the trachea anteriorly to facilitate access. Careful attention was undertaken not to overextend the neck. At this time, the cervicothoracic region widely prepped and draped in the usual sterile fashion. The area was anesthetized with 1% lidocaine and 0.5% Marcaine. A transverse cervical incision was made at the estimated area of the first tracheal ring. The dermis and subcutaneous tissue were incised with electrocautery, gaining access to the platysma. The platysma was then divided with electrocautery. A bridging a vein was identified overlying the strap muscles. It carefully, circumferentially dissected, proximally and distally tied off with 0 Vicryl ties and divided between ties wit Metzenbaum scissors. The strap muscles were carefully dissected along the midline to the level of the pretracheal fascia. Flaps were created around the trachea, obtaining excellent exposure of the anterior portion of the trachea. At the level of the first tracheal ring, a cruciate tracheotomy was made with an 11 blade. The trachea was dilated. The endotracheal tube was retrieved carefully by the anesthesiologist under my direction. A 7-Guinean tracheostomy was inserted into the trachea. The balloon was inflated and the anesthesia machine circuit was connected to the tracheostomy. Proper position was confirmed by observing "an excellent tidal volume" per the anesthesiologist. During the entire procedure, hemostasis was achieved and confirmed. The skin was closed on each side with a single 2-0 silk suture. The tracheostomy was then fixated to the skin with five 2-0 silk sutures. A Xeroform gauze was placed between the skin and the tracheostomy. A tracheal strap will be placed in the intensive care unit, as it is not available in the OR. After the completion of the procedure, the left subclavian hemodialysis catheter was removed and pressure was held until achieving adequate hemostasis. Dermabond was applied to the incision site. The patient was then transported to the intensive care unit, remaining in a guarded condition. The patient's family were met in the family waiting room. They were informed about the procedure being successful without any complications. The patient's family were very grateful for the news and the procedure. MD LAYA Mora/DANA/LIEN TID: [id number] RECEIPT: [id number] MTDD
[2025-02-17 11:03] LABS: Hematocrit 27.1 % (41.0-53.0); Hemoglobin 8.4 g/dL (13.5-17.5); Mean Corpuscular Hemoglobin 29.3 pg (28.0-32.0); Mean Corpuscular Volume 94.3 fL (80.0-100.0); Nucleated Red Blood Cells % 0.1 %
--- NOTE | 2025-02-17 11:20 | DVHPN2 ---
Progress Note Date Seen: Feb 17, 2025 Has the PT tested + for MRSA If YES, has PT been informed?: No Medical Necessity Reason Pt with a Central, PICC or Fol: Yes The following are medically ne: Mora Catheter Reason for mora catheter: Nakul. Abd Surgery, Strict I&O, Total Immobilization Subjective Review of Systems: RESPIRATORY:Abnormal Other Systems: Patient seen and examined by myself today in follow-up, patient remained intubated on ventilator Patient examined hemodialysis, blood pressure stable Objective vital signs Vital Sign Date Time Temp Pulse Resp B/P (MAP) Pulse Ox O2 Delivery O2 Flow Rate FiO2 02/17/25 10:21 80 24 113/70 (84) 94 30 02/17/25 10:00 Mechanical Ventilator+ 02/17/25 08:00 97.6 97.6 Total Intake and Output 02/16/25 02/16/25 02/17/25 15:00 23:00 07:00 Intake Total 451.316 ml 519.925 ml 510.00 ml Output Total 750 ml 465 ml Balance 451.316 ml -230.075 ml 45.00 ml medications Current Medications Medications Dose Ordered Sig/Serenity Route Start Time Stop Time Status Last Admin Dose Admin Midazolam HCl 50 ml @ 1 mls/hr Q24H IV 01/29/25 14:15 01/29/25 15:56 5 MLS/HR Phenylephrine HCl 250 ml @ 30 mls/hr Q8H20M IV 01/29/25 19:30 01/30/25 01:39 116.25 MLS/HR Levalbuterol HCl 0.625 mg Q4HR PRN NEB 01/29/25 20:00 02/16/25 12:12 0.625 MG Ipratropium Stur[place] 0.5 mg Q4HPRN PRN NEB 01/29/25 20:00 02/16/25 12:13 0.5 MG Epinephrine HCl 250 ml @ 7.5 mls/hr Q24H IV 01/30/25 00:15 Vasopressin 20 units/Sodium Chloride 100 ml @ 9 mls/hr Q11H7M IV 01/30/25 07:30 02/03/25 13:09 9 MLS/HR Amino Acids 0 ml @ 0 mls/hr PER PHARMACY IV 02/01/25 11:15 Diagnostic Test (Pha) 1 strip Q6HR 02/01/25 18:00 02/17/25 06:33 1 STRIP Insulin Human Regular FOLLOW SLIDING SCALE Q6HR SC 02/01/25 18:00 02/02/25 11:36 2 UNITS Dextrose 50 ml UD IV 02/01/25 12:30 Vancomycin HCl 0 ml @ 0 mls/hr UD IV 02/04/25 09:00 Sodium Chloride 10 ml QSHIFT@10,22 IV 02/04/25 22:00 02/16/25 22:21 10 ML Neomycin/ Polymyxin/ Bacitracin 1 applic DAILY TOP 02/06/25 10:00 02/16/25 10:47 1 APPLIC Bumetanide 2 mg BIDD IV 02/06/25 18:00 02/17/25 06:32 2 MG Norepinephrine Bitartrate 250 ml @ 0.938 mls/ hr Q24H IV 02/07/25 11:30 02/16/25 11:44 0.938 MLS/HR Artificial Tears 1 drop Q4HP PRN EACHEYE 02/08/25 07:30 Pantoprazole Sodium 40 mg Q12HR IV 02/08/25 22:00 02/16/25 22:29 40 MG Enteral Nutritional Formula 1,000 ml 20 NG 02/11/25 23:15 02/12/25 09:15 1,000 ML Epoetin Gunnar-epbx 8,000 unit MWF@2100 MT 02/17/25 21:00 Fat Emulsion Intravenous 100 ml/Sodium Chloride 60 meq/ Magnesium Sulfate 2 meq/ Multivitamins 10 ml/Amino Acids/ Dextrose 1,475.5 ml @ 60 mls/hr [id number] IV 02/16/25 22:00 02/17/25 21:59 02/16/25 22:18 60 MLS/HR Fat Emulsion Intravenous 100 ml/Sodium Chloride 80 meq/ Magnesium Sulfate 2 meq/ Multivitamins 10 ml/Amino Acids/ Dextrose 1,480.5 ml @ 62 mls/hr [id number] IV 02/17/25 22:00 02/18/25 21:59 Examination: LUNGS:Normal, CVS:Normal, MSK:Normal laboratory and microbiology Laboratory Tests 02/17/25 10:00 Test 02/17/25 10:00 Range/Units Serum Glucose Pending Microbiology Date/Time Source Procedure Growth Status 02/09/25 03:40 Blood Blood Culture - Final NO GROWTH AFTER 5 DAYS OF INCUBATION. Complete 02/02/25 22:00 Urine - Mora [place] Urine Culture - Final Complete 01/30/25 00:00 Nose MRSA Screen - Final Complete 01/29/25 10:43 Sputum Gram Stain - Final Complete 01/29/25 10:43 Sputum Respiratory Culture - Final Complete Problem List/Assessment/Plan Problem List/Assessment/Plan Acute kidney injury likely ischemic ATN in the setting of shock, FeNa > 2%, nonoliguric Acute respiratory failure, intubated on ventilator Status post cardiac arrest Hyperkalemia secondary to above Metabolic acidosis anion gap secondary to lactic acidosis secondary to reduced perfusion from hemorrhage Hemodynamic shock from bleeding Acute blood loss anemia/post op Status post laparoscopic cholecystectomy on 01/28/25 [facility] Status post ex lap, 01/29 Positive troponins NSTEMI--likely demand ischemia Shock liver Vitamin-D deficiency Recommendations Continue with UF 1-2 L as tolerated Epogen 51908 subQ 3 times weekly Increased urine output Mora catheter strict I&Os Vitamin-D replacement Packed red blood cell transfusion p.r.n. IV antibiotics IV pressors for blood pressure support We will continue to follow . Total care time 30 minutes I discussed my plan of care with mother and the primary nurse at the bedside Plan discussed with: Other (Nurse) Dietary Evaluation Review Recommendations by RD: PPN/TPN Comments: 1) Increase TPN rate to meet at least 75% of estimated daily needs 2) Advance to renal cardiac diet when medically feasible, pending ST approval 3) Follow-up with cardiology, pulmonology, nephrology, neurology, and gastroenterology 4) Continue to monitor I&O, labs, and skin integrity Expected Outcomes/Goals: 1) nutritional support to meet at least 75% of estimated daily needs 2) labs and wound to improve 3) diet to advance 4) gradual wt loss 5) f/u in 2-3 days FELICIANO KHAN MD Feb 17, 2025 11:20
[2025-02-17 12:11] LABS: Chloride 97 mmol/L (98-107); Potassium 4.6 mmol/L (3.5-5.1); Sodium 137 mmol/L (136-145)
[2025-02-17 12:13] LABS: Anion Gap 15 (5-15)
[2025-02-17 12:14] LABS: Calcium 9.3 mg/dL (8.7-10.4); Carbon Dioxide 25 mmol/L (20-31)
[2025-02-17 12:20] LABS: Glucose 135 mg/dL (74-106)
[2025-02-17 12:21] LABS: Alanine Aminotransferase 42 U/L (7-40); Albumin 3.2 g/dL (3.2-4.8); BUN/Creatinine Ratio 11.6 (10.0-20.0); Total Protein 7.3 g/dL (5.7-8.2)
[2025-02-17 12:22] LABS: Bilirubin, Total 3.4 mg/dL (0.2-1.0); Blood Urea Nitrogen 82 mg/dL (9-23)
[2025-02-17 12:29] LABS: Alkaline Phosphatase 1264 U/L (46-116)
--- NOTE | 2025-02-17 13:53 | DVHOP ---
DATE OF SURGERY: 02/17/2025 REFERRING PHYSICIAN: Dr. Robbin Ledesma. PREOPERATIVE DIAGNOSIS: Endoscopic gastrostomy for difficulty swallowing. POSTOPERATIVE DIAGNOSIS: Failed endoscopic gastrostomy tube placement. SEDATION ADMINISTERED: None. PROCEDURE CONSENT: The risks, benefits, and alternatives of diagnostic EGD procedure were discussed with the patient's family. The risks include infection, perforation, bleeding, need for immediate surgery, and possibly from all related complications. The patient's family had agreed to provide consent for the EGD with possible PEG tube placement. PROCEDURE DETAILED: The procedure was performed in ICU bed #103. The patient was kept in the supine position. After consent was obtained, a diagnostic upper endoscope from [employer] was inserted atraumatically beyond a posterior bite block into the posterior pharynx and down the proximal, mid, and distal esophagus. The endoscope was then advanced beyond the gastric lumen and beyond the prepyloric opening into the proximal duodenal bulb and descending duodenum. The endoscope was then slowly retracted into the gastric antrum and retroflexion was performed to visualize the gastrocnemius incisura. Endoscope was then forwarded into the distal gastric body/proximal antrum. 1:1 finger indentation and light transillumination was attempted. Multiple attempts were made to position the patient in order to get a proper 1:1 finger indentation as well as transillumination through the endoscope. Unfortunately, despite multiple attempts, I was unable to get a proper transillumination or 1:1 finger to light indentation due to the patient's large body habitus. Despite multiple attempts, this was unsuccessful and the decision was made to abort the procedure to avoid any further complication. The endoscope was then removed from the patient's body and the patient was kept in the ICU for recovery. RECOMMENDATIONS: * Failed EGD attempt, discussed with Dr. Ledesma. * Possible plan for laparoscopic-assisted endoscopic gastrostomy tube placement per Dr. Ledesma's request later this week. DO KAPIL Garcia/RICO TID: [id number] RECEIPT: [id number]
--- NOTE | 2025-02-17 18:48 | DVHPN2 ---
Progress Note Date Seen: Feb 17, 2025 Has the PT tested + for MRSA If YES, has PT been informed?: No Medical Necessity Reason Pt with a Central, PICC or Fol: Yes The following are medically ne: Mora Catheter Reason for mora catheter: Nakul. Abd Surgery, Strict I&O, Total Immobilization Subjective Review of Systems Per RN, pt O2 saturation decrease to 90. RT suctioned, no phlegm. No changes with tracheostomy. FIO2 increased to 50%. Pt is also tachycardic with HR 100's. I was not notified of these changes. Has a BM. He is receiving HD at the moment. Dr. Mack not able to complete PEG. Objective vital signs Vital Sign Date Time Temp Pulse Resp B/P (MAP) Pulse Ox O2 Delivery O2 Flow Rate FiO2 02/17/25 18:18 113/62 02/17/25 18:00 107 02/17/25 18:00 14 93 Mechanical Ventilator+ 50 50 02/17/25 16:00 99.4 99.4 Total Intake and Output 02/16/25 02/16/25 02/17/25 15:00 23:00 07:00 Intake Total 451.316 ml 519.925 ml 510.00 ml Output Total 750 ml 465 ml Balance 451.316 ml -230.075 ml 45.00 ml medications Current Medications Medications Dose Ordered Sig/Serenity Route Start Time Stop Time Status Last Admin Dose Admin Midazolam HCl 50 ml @ 1 mls/hr Q24H IV 01/29/25 14:15 01/29/25 15:56 5 MLS/HR Phenylephrine HCl 250 ml @ 30 mls/hr Q8H20M IV 01/29/25 19:30 01/30/25 01:39 116.25 MLS/HR Levalbuterol HCl 0.625 mg Q4HR PRN NEB 01/29/25 20:00 02/17/25 17:50 0.625 MG Ipratropium Isabel 0.5 mg Q4HPRN PRN NEB 01/29/25 20:00 02/17/25 17:50 0.5 MG Epinephrine HCl 250 ml @ 7.5 mls/hr Q24H IV 01/30/25 00:15 Vasopressin 20 units/Sodium Chloride 100 ml @ 9 mls/hr Q11H7M IV 01/30/25 07:30 02/03/25 13:09 9 MLS/HR Amino Acids 0 ml @ 0 mls/hr PER PHARMACY IV 02/01/25 11:15 Diagnostic Test (Pha) 1 strip Q6HR 02/01/25 18:00 02/17/25 12:35 1 STRIP Insulin Human Regular FOLLOW SLIDING SCALE Q6HR SC 02/01/25 18:00 02/17/25 18:22 4 UNITS Dextrose 50 ml UD IV 02/01/25 12:30 Vancomycin HCl 0 ml @ 0 mls/hr UD IV 02/04/25 09:00 Sodium Chloride 10 ml QSHIFT@10,22 IV 02/04/25 22:00 02/17/25 12:33 10 ML Neomycin/ Polymyxin/ Bacitracin 1 applic DAILY TOP 02/06/25 10:00 02/17/25 12:33 1 APPLIC Bumetanide 2 mg BIDD IV 02/06/25 18:00 02/17/25 18:18 2 MG Norepinephrine Bitartrate 250 ml @ 0.938 mls/ hr Q24H IV 02/07/25 11:30 02/16/25 11:44 0.938 MLS/HR Artificial Tears 1 drop Q4HP PRN EACHEYE 02/08/25 07:30 Pantoprazole Sodium 40 mg Q12HR IV 02/08/25 22:00 02/17/25 12:33 40 MG Enteral Nutritional Formula 1,000 ml 20 NG 02/11/25 23:15 02/12/25 09:15 1,000 ML Epoetin Gunnar-epbx 8,000 unit MWF@2100 GA 02/17/25 21:00 Fat Emulsion Intravenous 100 ml/Sodium Chloride 60 meq/ Magnesium Sulfate 2 meq/ Multivitamins 10 ml/Amino Acids/ Dextrose 1,475.5 ml @ 60 mls/hr [id number] IV 02/16/25 22:00 02/17/25 21:59 02/16/25 22:18 60 MLS/HR Fat Emulsion Intravenous 100 ml/Sodium Chloride 80 meq/ Magnesium Sulfate 2 meq/ Multivitamins 10 ml/Amino Acids/ Dextrose 1,480.5 ml @ 62 mls/hr [id number] IV 02/17/25 22:00 02/18/25 21:59 Examination Neuro. Unchanged. Dilated fixed pupils. No reflexes. CV. Hr 100s.Levophed held. SBP 110's. Previous LSCV HD catheter site C/DI. Right PC and PICC catheter exit sites remain C/D/I. Epistaxis, resolved. Some minimal blood during oral care. Pulmonary: Tracheostomy in place. Mechanical ventilator support 500/14/50%/+7. RR 18/min. Suction tubing clean. GI: Soft, obese, nondistended and non tender. Incisions and dressing C/D/I. OGT removed. Uncertain why. RN asked to replace and resume previous suction . Mora catheter in place. Clear yellow urine in collection bag Extremities. No edema Resolved facial and neck edema. Mild orbital edema laboratory and microbiology Laboratory Tests 02/17/25 11:40 02/17/25 10:00 Test 02/17/25 11:40 Range/Units Serum Glucose 135 H 74-106 mg/dL Microbiology Date/Time Source Procedure Growth Status 02/09/25 03:40 Blood Blood Culture - Final NO GROWTH AFTER 5 DAYS OF INCUBATION. 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 CT revealed cerebral edema and tonsillar herniation.EEG no electric activity. Cerebral perfusion study confirmed no perfusion radiographically consistent with brain which was concordant with initial clinical diagnosis and EEG. However, pt continues demonstrating brainstem function as he is breathing over vent set rate of 14. RR. There seems to be autonomic dysfunction. Pt's BP fluctuating and RR. F/U (3rd) CT brain worsening cerebral edema and tonsillar herniation. Mother and brother informed. CV: Tachycardic. Occasional episodes of hypotension, likely autonomic deregulation secondary to brain injury.Vasopressors held at this time. Cardiology assistance appreciated. Mechanical DVT prophylaxis. Unlikely PE (can't rule it out) but patient oxygenating well, no tachycardia. Pulmonary hypertension possibly unknowingly preexistent. Pulmonary: VDRF. S/p tracheostomy. CXR no PTX. Continue ventilator.Increase demand. Asked RN to obtain CXR after HD. Appreciate pulmonary medicine assistance. No expectoration/phlegm upon suctioning. Pulmonary medicine following. Pt approved for preferred subacute [facility] facility with inpatient HD. GI: Replace NGT/OGT and resume previous suction settings. Continue TPN. Continue BID GI prophylaxis. Hepatic shock. PEG not possible. Arrangements made for Dx Lap and PEG, possible surgical gastrostomy with Dr. Mack on Monday at 12. Procedure,risk and benefits explained to mother and brother. Aware of bleeding, infection, leak, tube dislodgement, injury to internal organs, blood vessels or nerves, blood clots in legs/veins, heart complications and/ or . She understood and agree to proceed. . ARF/ATN secondary to hemorrhagic shock. Uremia and elevated crea. Strict I&O. Stable u/o. Mora to gravity. Appreciate nephrology assistance. Replace/correct electrolytes. HD per nephrology. Heme/ID. Hemorrhagic shock resolved. Uremia, which may impact platelet function. No further sanguineous drainage from IV access, OGT or ETT suction tubing. Some bleeding during oral care. Hgb stable. I do not think Hgb 9.7 is realistic value given pt did not receive any blood products. VW Ag high. Inflammatory reaction. Dr. Barry will discuss with pt family. Minimizing blood draw frequency to avoid worsening anemia. Repeat labs AM. Appreciate hematology assistance. Repeat Bld Cx done, Remain negative.D/C Vancomycin tomorrow. Endocrine: Tight glycemic control. Skin: Skin care and pressure ulcer precautions. Plan discussed with: Other (Mother, brother and RN) My Orders My Orders Orders - JITENDRA ZAMORA MD Procedure Category Date Status Time Abg W/ Co-Ox RT 02/17/25 Logged 06:00 Chest Portable XY 02/17/25 Resulted 09:17 Amino Acid PHA 02/17/25 In Process Infusion... W/Fat 22:00 Comprehensive LAB 02/18/25 Verified Metabolic Panel 05:00 Magnesium LAB 02/18/25 Verified 05:00 Phosphorus LAB 02/18/25 Verified 05:00 Tpn Per Pharmacy YANET 02/17/25 In Process 09:23 Vancomycin,Random LAB 02/18/25 Verified 05:00 Creatinine LAB 02/18/25 Verified 05:00 Dietary Evaluation Review Recommendations by RD: PPN/TPN Comments: 1) Increase TPN rate to meet at least 75% of estimated daily needs 2) Advance to renal cardiac diet when medically feasible, pending ST approval 3) Follow-up with cardiology, pulmonology, nephrology, neurology, and gastroenterology 4) Continue to monitor I&O, labs, and skin integrity Expected Outcomes/Goals: 1) nutritional support to meet at least 75% of estimated daily needs 2) labs and wound to improve 3) diet to advance 4) gradual wt loss 5) f/u in 2-3 days JITENDRA ZAMORA MD Feb 17, 2025 18:47
--- NOTE | 2025-02-17 20:20 | DVHPNRES ---
Progress Note Date Seen: Feb 17, 2025 Resident Creating Document: ARNOLD MUHAMMAD DALE Has the PT tested + for MRSA If YES, has PT been informed?: No Medical Necessity Reason Pt with a Central, PICC or Fol: Yes The following are medically ne: Mora Catheter Reason for mora catheter: Nakul. Abd Surgery, Strict I&O, Total Immobilization Subjective Review of Systems Patient seen and examined at the bedside. Patient is on mechanical ventilation, off from sedation. Objective vital signs Vital Sign Date Time Temp Pulse Resp B/P (MAP) Pulse Ox O2 Delivery O2 Flow Rate FiO2 02/17/25 19:52 94 15 99/55 (70) 96 50 02/17/25 18:00 Mechanical Ventilator+ 02/17/25 16:00 99.4 99.4 Total Intake and Output 02/16/25 02/16/25 02/17/25 15:00 23:00 07:00 Intake Total 451.316 ml 519.925 ml 510.00 ml Output Total 750 ml 465 ml Balance 451.316 ml -230.075 ml 45.00 ml medications Current Medications Medications Dose Ordered Sig/Serenity Route Start Time Stop Time Status Last Admin Dose Admin Midazolam HCl 50 ml @ 1 mls/hr Q24H IV 01/29/25 14:15 01/29/25 15:56 5 MLS/HR Phenylephrine HCl 250 ml @ 30 mls/hr Q8H20M IV 01/29/25 19:30 01/30/25 01:39 116.25 MLS/HR Levalbuterol HCl 0.625 mg Q4HR PRN NEB 01/29/25 20:00 02/17/25 17:50 0.625 MG Ipratropium Chassell 0.5 mg Q4HPRN PRN NEB 01/29/25 20:00 02/17/25 17:50 0.5 MG Epinephrine HCl 250 ml @ 7.5 mls/hr Q24H IV 01/30/25 00:15 Vasopressin 20 units/Sodium Chloride 100 ml @ 9 mls/hr Q11H7M IV 01/30/25 07:30 02/03/25 13:09 9 MLS/HR Amino Acids 0 ml @ 0 mls/hr PER PHARMACY IV 02/01/25 11:15 Diagnostic Test (Pha) 1 strip Q6HR 02/01/25 18:00 02/17/25 12:35 1 STRIP Insulin Human Regular FOLLOW SLIDING SCALE Q6HR SC 02/01/25 18:00 02/17/25 18:22 4 UNITS Dextrose 50 ml UD IV 02/01/25 12:30 Vancomycin HCl 0 ml @ 0 mls/hr UD IV 02/04/25 09:00 Sodium Chloride 10 ml QSHIFT@10,22 IV 02/04/25 22:00 02/17/25 12:33 10 ML Neomycin/ Polymyxin/ Bacitracin 1 applic DAILY TOP 02/06/25 10:00 02/17/25 12:33 1 APPLIC Bumetanide 2 mg BIDD IV 02/06/25 18:00 02/17/25 18:18 2 MG Norepinephrine Bitartrate 250 ml @ 0.938 mls/ hr Q24H IV 02/07/25 11:30 02/16/25 11:44 0.938 MLS/HR Artificial Tears 1 drop Q4HP PRN EACHEYE 02/08/25 07:30 Pantoprazole Sodium 40 mg Q12HR IV 02/08/25 22:00 02/17/25 12:33 40 MG Enteral Nutritional Formula 1,000 ml 20 NG 02/11/25 23:15 02/12/25 09:15 1,000 ML Epoetin Fiona-epbx 8,000 unit MWF@2100 PA 02/17/25 21:00 Fat Emulsion Intravenous 100 ml/Sodium Chloride 60 meq/ Magnesium Sulfate 2 meq/ Multivitamins 10 ml/Amino Acids/ Dextrose 1,475.5 ml @ 60 mls/hr [id number] IV 02/16/25 22:00 02/17/25 21:59 02/16/25 22:18 60 MLS/HR Fat Emulsion Intravenous 100 ml/Sodium Chloride 80 meq/ Magnesium Sulfate 2 meq/ Multivitamins 10 ml/Amino Acids/ Dextrose 1,480.5 ml @ 62 mls/hr [id number] IV 02/17/25 22:00 02/18/25 21:59 Examination General: RASS -5, afebrile, mucosae are moist Cardiovascular: Normal S1 and S2. No murmurs, gallops or rubs Respiratory: Mechanically assisted ventilation, equal bilateral airway entree. Clear lung sounds on auscultation Abdomen: Soft, nontender, no organomegaly, with surgical wound on abdomin MSK/skin: Mobilization of limbs cannot be evaluated. Skin is dry and warm. Neurological: Orientation cannot be assessed. Pupils are dilated and nonreactive to light, absent brainstem reflexes laboratory and microbiology Laboratory Tests 02/17/25 11:40 02/17/25 10:00 Test 02/17/25 11:40 Range/Units Serum Glucose 135 H 74-106 mg/dL Microbiology Date/Time Source Procedure Growth Status 02/09/25 03:40 Blood Blood Culture - Final NO GROWTH AFTER 5 DAYS OF INCUBATION. Complete 02/02/25 22:00 Urine - Mora Port Urine Culture - Final Complete 01/30/25 00:00 Nose MRSA Screen - Final Complete 01/29/25 10:43 Sputum Gram Stain - Final Complete 01/29/25 10:43 Sputum Respiratory Culture - Final Complete Labs and/or images reviewed: Labs reviewed by me Problem List/Assessment/Plan Problem List/Assessment/Plan This is a 24-year-old male with no significant past medical history underwent elective laparoscopic cholecystectomy on 01/28 at [facility] (due to cholelithiasis), on 2nd day postop at home became lethargic and subsequently coded. ROSC was achieved with CPR, abdominal CT scan showed intra-abdominal hematoma, underwent emergent laparotomy and drained about 500-750 thrombosed and dark blood. NEURO: Hypoxic encephalopathy, due to cardiac arrest Anoxic brain injury * RASS Score -5 * Head CT from 01/30 shows, Cerebellar tonsilar herniation. There is sulcal and ventricular effacement. The basal cisterns are effaced. Loss of mario-white matter differentiation is noted. * Head CT on 02/11 shows worsening diffuse cerebral edema in the setting of anoxic brain injury * BRNNM-brain imaging, shows absence blood flow, findings suggest brain in the appropriate clinical setting * Plan: Tracheostomy and transfering to LTAC CARDIOVASCULAR: NSTEMI possible type 2 Status post cardiac arrest Distributive shock (vasoplegia)/neurogenic shock/septic shock vasopressin * Cardiology on the board, recommended medical management * Echo from 01/30 shows,Technically limited study secondary to poor acoustic windows, normal LV size and function, 55-60% PULMONARY: Acute hypoxic respiratory failure, likely due to anoxic brain injury Cxr showed bilateral mild pulmonary vascular congestion GASTROINTESTINAL: Acute transaminitis secondary to hypovolemic shock Coagulopathy Hypoalbuminemia Status post laparoscopic cholecystectomy Status post exploratory laparotomy for hemoperitoneum Transaminitis, likely due to TPN GENITOURINARY: HARLEEN secondary to hypovolemic shock * Nephrology on the board, performed dialysis on 02/03 * IV Bumex 2 mg b.i.d. METABOLIC: Severe anion gap metabolic acidosis due to lactic acidosis Hypernatremia Grade 2 obesity, BMI 35.7 kg per m2 Hypoglycemia HEME: Severe anemia, due to bleeding * Received 3 units of PRBC, 2 units of FFP and 1 unit of cryoprecipitate * Monitor H&H and epoetin fiona INFECTIOUS DISEASE: Leucocytosis Lactic acidosis * Urine culture, blood culture and respiratory culture shows no growth * On Zosyn and vancomycin DIET: TPN DVT prophylax: Hold GI prophylaxis: Protonix Code status: Full code LINES/DRAINS/ACCESS: ETT: Intubated on 01/29 IV access: Lt IJ placed on 01/29/25 left subclavian, tunneled dialysis catheter placed on 02/14 Drips: On Levophed Mora catheter: Placed on 01/29 DISPOSITION: ICU status Patient's status discussed with the patient's mother at the bedside. Critical care time spent more than 57 minutes, including patient care, chart review, and updating the family. Excluding any procedures. Case discussed with Dr. Troy Plan discussed with: Other Dietary Evaluation Review Recommendations by RD: PPN/TPN Comments: 1) Increase TPN rate to meet at least 75% of estimated daily needs 2) Advance to renal cardiac diet when medically feasible, pending ST approval 3) Follow-up with cardiology, pulmonology, nephrology, neurology, and gastroenterology 4) Continue to monitor I&O, labs, and skin integrity Expected Outcomes/Goals: 1) nutritional support to meet at least 75% of estimated daily needs 2) labs and wound to improve 3) diet to advance 4) gradual wt loss 5) f/u in 2-3 days Date of Service: Feb 17, 2025 Billing Provider: JEFFREY TROY MD Common Visit Codes: 08218-CMPTVSKT CARE 30-74 MIN FELICITASSUEFELICITAS ASTORGAArnulfo RESDIENT Feb 17, 2025 20:19 JEFFREY TROY MD Feb 18, 2025 12:22
[2025-02-17] MEDS: TPN PER PHARMACY IV NR (21:06)
[2025-02-17] MEDS: EPOETIN ALFA-EPBX 4,000 UNIT/ML VIAL SC SCH (21:07)
[2025-02-17] MEDS: SODIUM CHL 0.9% 1000 ML BAG XX ONE (21:08)
[2025-02-17] MEDS: VANCOMYCIN 500mg/100mL 100 ML IV ONE (21:54)
--- NOTE | 2025-02-17 23:07 | DVH ---
Bilateral lower extremity venous duplex Clinical History: rule out DVT Comparison: US RT LOWER DVT on DOS: 01/30/25 Technique: Duplex Doppler evaluation of the deep venous systems of both lower extremities from the common femora l veins to the popliteal veins including color Doppler and spectral/pulsed waveform analysis was perf ormed. Findings: RIGHT SIDE: The common femoral vein demonstrates appropriate compressibility and waveform variability. There is compressibility/patency of the great saphenous vein at the proximal thigh. The femoral vein demonstrates appropriate compressibility and waveform variability. The deep femoral vein demonstrates appropriate compressibility and waveform variability. The popliteal vein demonstrates appropriate compressibility and waveform variability. There is normal compressibility at the tibioperoneal trunk. LEFT SIDE: The common femoral vein demonstrates appropriate compressibility and waveform variability. There is compressibility/patency of the great saphenous vein at the proximal thigh. The femoral vein demonstrates appropriate compressibility and waveform variability. The deep femoral vein demonstrates appropriate compressibility and waveform variability. The popliteal vein demonstrates appropriate compressibility and waveform variability. There is normal compressibility at the tibioperoneal trunk. Impression: 1. No right or left femoropopliteal venous thrombosis.
--- NOTE | 2025-02-17 23:25 | DVH ---
CLINICAL HISTORY: NGT Placement Confirmation/Lung Status Post HD TECHNIQUE: Single view of the chest was obtained. COMPARISON: XY CHEST PORTABLE on DOS: 02/17/25, XY CHEST PORTABLE on DOS: 02/16/25, XY CHEST PORTABLE o n DOS: 02/15/25, XY CHEST PORTABLE on DOS: 02/14/25, XY CHEST PORTABLE on DOS: 02/13/25 FINDINGS: The heart size and pulmonary vasculature are normal. There are unchanged bibasilar opacities. A right 1 more tunneled catheter terminates cavoatrial junction. NG tube terminates at the stomach. R ight PICC is unchanged. IMPRESSION: Unchanged bibasilar opacities, likely atelectasis with small pleural effusions
[2025-02-18] VITALS (109 sets, daily range): BP systolic 85–113; BP diastolic 36–71; PULSE 75–105; RESP 12–15; TEMP 97.2–99; O2SAT 89–100
[2025-02-18 04:18] LABS: Albumin 3.5 g/dL (3.2-4.8); Anion Gap 12 (5-15); BUN/Creatinine Ratio 10.9 (10.0-20.0); Calcium 9.2 mg/dL (8.7-10.4); Carbon Dioxide 29 mmol/L (20-31); Magnesium 2.1 mg/dL (1.6-2.6); Potassium 4.4 mmol/L (3.5-5.1); Sodium 137 mmol/L (136-145); Total Protein 8.1 g/dL (5.7-8.2)
[2025-02-18 04:23] LABS: Hematocrit 27.2 % (41.0-53.0); Hemoglobin 9.1 g/dL (13.5-17.5); Mean Corpuscular Hemoglobin 28.8 pg (28.0-32.0); Mean Corpuscular Volume 85.9 fL (80.0-100.0)
[2025-02-18 04:33] LABS: Alanine Aminotransferase 47 U/L (7-40); Alkaline Phosphatase 1277 U/L (46-116); Bilirubin, Total 3.4 mg/dL (0.2-1.0); Blood Urea Nitrogen 58 mg/dL (9-23); Chloride 96 mmol/L (98-107); Glucose 149 mg/dL (74-106)
[2025-02-18 04:57] LABS: Total Cells Counted 100.0 (100)
--- NOTE | 2025-02-18 06:01 | DVHPN2 ---
Progress Note Date Seen: Feb 18, 2025 Has the PT tested + for MRSA If YES, has PT been informed?: No Medical Necessity Reason Pt with a Central, PICC or Fol: Yes The following are medically ne: Mora Catheter Reason for mora catheter: Nakul. Abd Surgery, Strict I&O, Total Immobilization Subjective Review of Systems Per RN, no changes overnight. Has a smear BM. Levophed .5 mcg/kg. FIO2 down to 30%. NGT placed. 100 mL output. Objective vital signs Vital Sign Date Time Temp Pulse Resp B/P (MAP) Pulse Ox O2 Delivery O2 Flow Rate FiO2 02/18/25 04:03 99 14 102/50 (67) 92 30 02/18/25 02:00 Mechanical Ventilator+ 02/18/25 02:00 97.9 208.2 Total Intake and Output 02/17/25 02/17/25 02/18/25 15:00 23:00 07:00 Intake Total 506.25 ml 584 ml 186 ml Output Total 650 ml Balance 506.25 ml -66 ml 186 ml medications Current Medications Medications Dose Ordered Sig/Serenity Route Start Time Stop Time Status Last Admin Dose Admin Midazolam HCl 50 ml @ 1 mls/hr Q24H IV 01/29/25 14:15 01/29/25 15:56 5 MLS/HR Phenylephrine HCl 250 ml @ 30 mls/hr Q8H20M IV 01/29/25 19:30 01/30/25 01:39 116.25 MLS/HR Levalbuterol HCl 0.625 mg Q4HR PRN NEB 01/29/25 20:00 02/18/25 02:04 0.625 MG Ipratropium [place] 0.5 mg Q4HPRN PRN NEB 01/29/25 20:00 02/18/25 02:04 0.5 MG Epinephrine HCl 250 ml @ 7.5 mls/hr Q24H IV 01/30/25 00:15 Vasopressin 20 units/Sodium Chloride 100 ml @ 9 mls/hr Q11H7M IV 01/30/25 07:30 02/03/25 13:09 9 MLS/HR Amino Acids 0 ml @ 0 mls/hr PER PHARMACY IV 02/01/25 11:15 Diagnostic Test (Pha) 1 strip Q6HR 02/01/25 18:00 02/18/25 00:11 1 STRIP Insulin Human Regular FOLLOW SLIDING SCALE Q6HR SC 02/01/25 18:00 02/18/25 00:15 4 UNITS Dextrose 50 ml UD IV 02/01/25 12:30 Vancomycin HCl 0 ml @ 0 mls/hr UD IV 02/04/25 09:00 Sodium Chloride 10 ml QSHIFT@10,22 IV 02/04/25 22:00 02/17/25 21:07 10 ML Neomycin/ Polymyxin/ Bacitracin 1 applic DAILY TOP 02/06/25 10:00 02/17/25 12:33 1 APPLIC Bumetanide 2 mg BIDD IV 02/06/25 18:00 02/17/25 18:18 2 MG Norepinephrine Bitartrate 250 ml @ 0.938 mls/ hr Q24H IV 02/07/25 11:30 02/16/25 11:44 0.938 MLS/HR Artificial Tears 1 drop Q4HP PRN EACHEYE 02/08/25 07:30 Pantoprazole Sodium 40 mg Q12HR IV 02/08/25 22:00 02/17/25 21:04 40 MG Enteral Nutritional Formula 1,000 ml 20 NG 02/11/25 23:15 02/12/25 09:15 1,000 ML Epoetin Gunnar-epbx 8,000 unit MWF@2100 MS 02/17/25 21:00 02/17/25 21:07 8,000 UNIT Fat Emulsion Intravenous 100 ml/Sodium Chloride 80 meq/ Magnesium Sulfate 2 meq/ Multivitamins 10 ml/Amino Acids/ Dextrose 1,480.5 ml @ 62 mls/hr [id number] IV 02/17/25 22:00 02/18/25 21:59 02/17/25 21:06 62 MLS/HR Examination Neuro. Unchanged. Dilated fixed pupils. No reflexes. CV. Hr 90s.Levophed held. Levophed .5 mcg.kg. Previous LSCV HD catheter site C/DI. Right PC and PICC catheter exit sites remain C/D/I. Epistaxis, resolved. Some minimal blood during oral care. Pulmonary: Tracheostomy in place. C/D/I. Mechanical ventilator support 500/14/30%/+7. RR 14/min. Suction tubing clean. GI: Soft, obese, nondistended and non tender. Incisions and dressing C/D/I. NGT to suction. Minimal output. . Mora catheter in place. Clear yellow urine in collection bag Extremities. No edema Resolved facial and neck edema. Mild orbital edema laboratory and microbiology Laboratory Tests 02/18/25 03:03 Test 02/18/25 03:03 Range/Units Serum Glucose 149 H 74-106 mg/dL Microbiology Date/Time Source Procedure Growth Status 02/09/25 03:40 Blood Blood Culture - Final NO GROWTH AFTER 5 DAYS OF INCUBATION. 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 CT revealed cerebral edema and tonsillar herniation.EEG no electric activity. Cerebral perfusion study confirmed no perfusion radiographically consistent with brain which was concordant with initial clinical diagnosis and EEG. However, pt continues demonstrating brainstem function as he is breathing over vent set rate of 14. RR. There seems to be autonomic dysfunction. Pt's BP fluctuating and RR. F/U (3rd) CT brain worsening cerebral edema and tonsillar herniation. Mother and brother aware. CV: Occasional episodes of hypotension, likely autonomic deregulation secondary to brain injury. Levophed .5mcg/kg. Cardiology assistance appreciated. Mechanical DVT prophylaxis. Unlikely PE (can't rule it out) but patient oxygenating well, no tachycardia. Pulmonary hypertension possibly unknowingly preexistent. Duplex negative for DVT Pulmonary: VDRF. S/p tracheostomy. CXR no PTX. ATX and small pleural effusion.Consider increasing Vt and decreasing RR to improve ATX. Pending ABG. Continue ventilator. Appreciate pulmonary medicine assistance. No expectoration/phlegm upon suctioning. Pulmonary medicine following. Pt approved for preferred subacute [facility] facility with inpatient HD. GI: Replace NGT/OGT and resume previous suction settings. Continue TPN. Continue BID GI prophylaxis. Hepatic shock. PEG not possible. Arrangements made for Dx Lap and PEG, possible surgical gastrostomy with Dr. Mack on tomorrow at 12. Procedure, risk and benefits explained to mother and brother. Aware of bleeding, infection, leak, tube dislodgement, injury to internal organs, blood vessels or nerves, blood clots in legs/veins, heart complications and/ or . She understood and agree to proceed. . ARF/ATN secondary to hemorrhagic shock. Uremia and elevated crea. Strict I&O. Stable u/o. Mora to gravity. Appreciate nephrology assistance. Replace/correct electrolytes. HD per nephrology. Heme/ID. Hemorrhagic shock resolved. Uremia, which may impact platelet function. No further sanguineous drainage from IV access, OGT or ETT suction tubing. Some bleeding during oral care. Hgb stable. VW Ag high. Inflammatory reaction. Dr. Barry will discuss with pt family. Minimizing blood draw frequency to avoid worsening anemia. Leukocytosis 12. Possibly reactive after surgery. Repeat labs AM. Appreciate hematology assistance. Continue Vancomycin for now, given leukocytosis. If persists will require workup. Endocrine: Tight glycemic control. Skin: Skin care and pressure ulcer precautions. Plan discussed with: Other (RN) My Orders My Orders Orders - JITENDRA ZAMORA MD Procedure Category Date Status Time Abg W/ Co-Ox RT 02/17/25 Logged 06:00 Chest Portable XY 02/17/25 Resulted 09:17 Amino Acid PHA 02/17/25 In Process Infusion... W/Fat 22:00 Tpn Per Pharmacy YANET 02/17/25 In Process 09:23 Obtain Consent For: ORDERS 02/17/25 Transmitted 18:31 Obtain Consent For YANET 02/17/25 In Process Anesthesia 18:31 Communication Order ORDERS 02/17/25 Transmitted 18:50 Bilat Lower Dvt US 02/17/25 Resulted 19:00 Chest Xray 1 View XY 02/17/25 Resulted 22:02 Dietary Evaluation Review Recommendations by RD: PPN/TPN Comments: 1) Increase TPN rate to meet at least 75% of estimated daily needs 2) Advance to renal cardiac diet when medically feasible, pending ST approval 3) Follow-up with cardiology, pulmonology, nephrology, neurology, and gastroenterology 4) Continue to monitor I&O, labs, and skin integrity Expected Outcomes/Goals: 1) nutritional support to meet at least 75% of estimated daily needs 2) labs and wound to improve 3) diet to advance 4) gradual wt loss 5) f/u in 2-3 days JITENDRA ZAMORA MD Feb 18, 2025 06:01
--- NOTE | 2025-02-18 07:47 | DVHPN2 ---
Progress Note - Dictate Date Seen: Feb 18, 2025 Has the PT tested + for MRSA If YES, has PT been informed?: No Medical Necessity Reason Pt with a Central, PICC or Fol: Yes The following are medically ne: Mora Catheter Reason for mora catheter: Nakul. Abd Surgery, Strict I&O, Total Immobilization vital signs Vital Sign Date Time Temp Pulse Resp B/P (MAP) Pulse Ox O2 Delivery O2 Flow Rate FiO2 02/18/25 07:00 97.7 96 14 98/55 (69) 91 207.9 02/18/25 06:26 30 02/18/25 06:00 Mechanical Ventilator+ Total Intake and Output 02/17/25 02/17/25 02/18/25 15:00 23:00 07:00 Intake Total 506.25 ml 584 ml 500.690 ml Output Total 650 ml 425 ml Balance 506.25 ml -66 ml 75.690 ml medications Current Medications Medications Dose Ordered Sig/Serenity Route Start Time Stop Time Status Last Admin Dose Admin Midazolam HCl 50 ml @ 1 mls/hr Q24H IV 01/29/25 14:15 01/29/25 15:56 5 MLS/HR Phenylephrine HCl 250 ml @ 30 mls/hr Q8H20M IV 01/29/25 19:30 01/30/25 01:39 116.25 MLS/HR Levalbuterol HCl 0.625 mg Q4HR PRN NEB 01/29/25 20:00 02/18/25 02:04 0.625 MG Ipratropium [place] 0.5 mg Q4HPRN PRN NEB 01/29/25 20:00 02/18/25 02:04 0.5 MG Epinephrine HCl 250 ml @ 7.5 mls/hr Q24H IV 01/30/25 00:15 Vasopressin 20 units/Sodium Chloride 100 ml @ 9 mls/hr Q11H7M IV 01/30/25 07:30 02/03/25 13:09 9 MLS/HR Amino Acids 0 ml @ 0 mls/hr PER PHARMACY IV 02/01/25 11:15 Diagnostic Test (Pha) 1 strip Q6HR 02/01/25 18:00 02/18/25 05:38 1 STRIP Insulin Human Regular FOLLOW SLIDING SCALE Q6HR SC 02/01/25 18:00 02/18/25 06:16 2 UNITS Dextrose 50 ml UD IV 02/01/25 12:30 Vancomycin HCl 0 ml @ 0 mls/hr UD IV 02/04/25 09:00 Sodium Chloride 10 ml QSHIFT@10,22 IV 02/04/25 22:00 02/17/25 21:07 10 ML Neomycin/ Polymyxin/ Bacitracin 1 applic DAILY TOP 02/06/25 10:00 02/17/25 12:33 1 APPLIC Bumetanide 2 mg BIDD IV 02/06/25 18:00 02/18/25 06:14 2 MG Norepinephrine Bitartrate 250 ml @ 0.938 mls/ hr Q24H IV 02/07/25 11:30 02/16/25 11:44 0.938 MLS/HR Artificial Tears 1 drop Q4HP PRN EACHEYE 02/08/25 07:30 Pantoprazole Sodium 40 mg Q12HR IV 02/08/25 22:00 02/17/25 21:04 40 MG Enteral Nutritional Formula 1,000 ml 20 NG 02/11/25 23:15 02/12/25 09:15 1,000 ML Epoetin Gunnar-epbx 8,000 unit MWF@2100 SC 02/17/25 21:00 02/17/25 21:07 8,000 UNIT Fat Emulsion Intravenous 100 ml/Sodium Chloride 80 meq/ Magnesium Sulfate 2 meq/ Multivitamins 10 ml/Amino Acids/ Dextrose 1,480.5 ml @ 62 mls/hr [id number] IV 02/17/25 22:00 02/18/25 21:59 02/17/25 21:06 62 MLS/HR laboratory and microbiology Laboratory Tests 02/18/25 03:03 Test 02/18/25 03:03 Range/Units Serum Glucose 149 H 74-106 mg/dL Assessment/Plan Still in ICU. On vent support. No gross higher brain reflexes. Pupils are dilated and fixed. Anoxic/Hypoxic Encephalopathy No reported arrhythmia overnight s/p Tracheostomy Back on low dose Levophed To tentatively go for PEG tomorrow Echocardiogram revealed no WMA and also revealed good EF. It also revealed increased Pulmonary Artery Pressure in favor of component of Pulmonary Hypertension. s/p Hemodialysis Received blood and platelet transfusion repeatedly Patient is a 24-year-old gentleman who was originally brought to the hospital for post arrest. Patient is seen in postop area. Patient is intubated and on multiple pressor supports. Patient is not source of history. Information was obtained by reviewing the chart, talking to patient's family/mother and communicating with staff and reviewing outside records ([facility]). Patient did have elective outpatient laparoscopic cholecystectomy in [facility] on January 28 2025. As per mother, after going home, patient was feeling very hungry and was eating and drinking a lot. He started feeling abdominal pain with nausea at night and in the morning was short of breath. As per mother: patient has stopped breathing in the morning and family called 911. As per mother, as per guidance of 911, family started CPR until EMS arrived. Patient was intubated and was brought to the hospital by EMS. Since arrival to [facility], patient was seen by surgeon who took the patient to operating room and performed laparotomy (there was hepatic hematoma). Postoperatively, the patient has remained hypotensive. There is signs for multiorgan involvement. Patient was not alert and did not complain of any chest pains. Labs revealed increased troponin. Cardiology is involved for cardiac aspects of care and abnormal troponin. First available EKG reveals sinus tachycardia with no specific ST-T changes. Telemetry had revealed sinus tachycardia throughout the stay. Patient is found to have significant anemia and is receiving blood transfusion at the time of evaluation. It is of note that at the time of evaluation patient does not have any reflexes. Intubated. Mucosa pale. Dilated and fixed pupils, Scattered rhonchi in the lungs. Cardiac: Tachycardic. No murmur. Abdomen is covered by dressing. Extremities do not reveal any edema. Dorsalis pedis is 1+ bilateral. Patient does not respond to any stimuli. Reported past medical history includes asthma and obesity. Reportedly, on January 23, 2025: Patient presented to [facility] for abdominal pain/nausea/vomiting. At that point the problems were ongoing for few weeks. In [facility], CT of the abdomen and MRCP were performed. Patient was seen by GI/surgery. Patient was found to have gallstones. Patient was discharged and later on January 28, 2025 presented back to [facility] for elective laparoscopy cholecystectomy. Patient was discharged home from [facility] after laparoscopic cholecystectomy. As per mother, patient does not have baseline history of any cardiac history. As per mother, patient was using marijuana. Mother denies any previous substance abuse besides marijuana. No specific family history is reported On January 23, 2025, labs in [facility] revealed creatinine of 0.84, hemoglobin of 15.2 and troponin (high sensitive) of <3. At that point EKG was normal WBC: 20.1 - 19.0 - 22.7 - 20.6 - 28.4 - 20.3 - 21.0 - 25.2 - 29.8 - 29.5 - 29.0 - 26.2 - 21.7 - 19.7 - 17.7 - 15.3 - 12.2 - 10.5 - 11.2 - 13.0 - 10.7 - 9.0 - 9.0 - 10.3 - 10.3 - 10.1 - 11.0 - 12.4 Hemoglobin: 8.3 - 6.5 - 12.1 - 11.1 - 12.1 - 9.3 - 9.2 - 9.1 - 8.4 - 9.0 - 9.5 - 8.8 - 8.4 - 8.0 - 9.7 - 9.6 - 9.8 - 9.6 - 9.7 - 9.8 - 9.1 - 8.5 - 8.8 - 8.9 - 8.7 - 8.8 - 9.7 - 9.1 Fibrinogen: 108 - 316 - 537 - 689 - >860 Creatinine: 4.02 - 3.78 - 3.90 - 3.95 - 4.34 - 5.44 - 6.05 - 6.73 - 7.31 - 7.77 - 6.64 - 7.30 - 4.91 - 5.32 - 7.40 - 5.98 - 7.66 - 6.28 - 7.71 - 8.67 - 6.87 - 5.62 - 7.59 - 8.95 - 7.51 - 9.04 - 6.23 - 7.09 - 5.33 Potassium: 5.6 - 4.6 - 4.8 - 3.9 - 2.9 - 2.9 - 3.6 - 3.8 - 4.9 - 5.4 - 6.0 - 5.1 - 5.3 - 6.1 - 6.0 - 4.6 - 4.4 - 4.3 - 3.5 - 3.4 - 3.7 - 4.5 - 5.7 - 5.2 - 4.0 - 3.8 - 4.1 - 4.5 - 4.9 - 4.7 - 4.6 - 4.4 AST/ALT: 676/700 - 2327/2056 - 4636/2521 - -/1995 - 2500/1990 - 1780/1821 - 808/995 - 586/735 - 456/444 - 312/290 - 237/163 - 215/125 - 190/87 - 200/74 - 202/66 - 189/53 - 186/44 - 186/45 - 192/38 - 193/34 - 214/34 - 195/30 - 261/42 - 241/47 Lactic acid: 17.9 - 17.2 - 11.4 Troponin (high sensitive): 2973 - 9382 - 4364 - 7493 - 7997 TSH: 11.05 Urine Toxicology: positive for Fentanyl and Benzodiazepine Chest x-ray revealed: Lines and Tubes: Endotracheal tube projects 2.2 cm above the meghan. Right internal jugular central venous catheter tip projects over superior vena cava. Lungs: No focal consolidation. Low lung volumes. Pleura: No effusion. No pneumothorax. Cardiomediastinal contours: Unremarkable Bones: No acute osseous abnormality. IMPRESSION: Lines and tubes as above. Low lung volumes. Repeat chest x-ray revealed: IMPRESSION: Lines and tubes in satisfactory position. Mild increased pulmonary vascular congestion Repeat chest xry revealed: IMPRESSION: Lines and tubes in satisfactory position. Mild increased pulmonary vascular congestion Repeat chest xry revealed: IMPRESSION: 1. Low lung volumes with concomitant crowding of the pulmonary vasculature. 2. No evidence of focal consolidation. 3. Lines and tubes unchanged. Repeat chest xry revealed: IMPRESSION: 1. Slight interval retraction of the endotracheal tube such that the tip now projects approximately 4.7 cm above the level of the meghan. Remaining lines and tubes unchanged. 2. Otherwise no significant change compared to prior exam. Repeat chest xry revealed: IMPRESSION: 1. Slight interval advancement of endotracheal tube such that the tip now projects approximately 1.7 cm above the level of the meghan. Remaining lines and tubes unchanged. 2. Otherwise no significant change compared to prior exam. Repeat chest xry revealed: IMPRESSION: 1. Slight interval retraction of the endotracheal tube such that the tip now projects approximately 3.3 cm above the level of the meghan. Remaining lines and tubes unchanged. 2. No evidence of acute cardiopulmonary process. Repeat chest xry revealed: IMPRESSION: 1. Endotracheal tube in appropriate position. Remaining lines and tubes unchanged. 2. No evidence of acute cardiopulmonary process. Repeat chest xry revealed: IMPRESSION: 1. Small right pleural effusion. 2. Lines and tubes unchanged. Repeat chest xry revealed: IMPRESSION: 1. Small right pleural effusion. 2. Lines and tubes unchanged. Repeat chest xry revealed: IMPRESSION: 1. Small bilateral pleural effusions. 2. Lines and tubes unchanged. Repeat chest xry revealed: IMPRESSION: 1. Slight interval advancement of the endotracheal tube. Remaining lines and tubes unchanged. 2. No evidence of acute cardiopulmonary process. Repeat chest xry revealed: IMPRESSION: 1. Slight interval retraction of the endotracheal tube such that the tip now projects approximately 3.3 cm above the level of the meghan. Remaining lines and tubes unchanged. 2. No evidence of acute cardiopulmonary process. Repeat chest xry revealed: Bowel gas pattern is unremarkable. Enteric tube tip projects over the expected region of the stomach. The lung bases demonstrates bibasilar atelectasis. The lower pelvis is collimated from field of view. No acute osseous abnormality identified. Repeat chest xry revealed: Lines and Tubes: Endotracheal tube tip projects approximately 5.1 cm above the level of the meghan. Enteric catheter terminates within the gastric lumen. Right peripherally inserted central catheter tip and left subclavian central venous catheter tip project over the distal superior vena cava. Lungs: Clear Pleura: No effusion. No pneumothorax. Cardiomediastinal contours: Unremarkable Bones: Unremarkable IMPRESSION: 1. No radiographic evidence of acute cardiopulmonary abnormality. 2. Lines and tubes as above. Repeat chest xry revealed: IMPRESSION: 1. Stable position of the support lines and tubes. 2. Bibasilar airspace disease which may reflect atelectasis and/or pneumonia. Possible small bilateral pleural effusions. Repeat chest xry revealed: IMPRESSION: 1. Lines and tubes unchanged. 2. Persistently diminished lung volumes with concomitant exaggeration of the pulmonary vasculature. No evidence of acute cardiopulmonary process. Repeat chest xry revealed: IMPRESSION: 1. No acute cardiopulmonary disease. 2. Lines and tubes as above. Repeat chest xry revealed: IMPRESSION: 1. Intervally placed right IJ catheter projects in appropriate remaining support devices are stable.2. No other significant change from the previous study. Persistent low lung volumes with vascular crowding and basilar atelectasis. Repeat chest xry revealed: IMPRESSION: Heart is stable in size. There are low lung volumes with probable small left pleural effusion and bibasilar atelectasis. Support lines and tubes appear unchanged in satisfactory position. No pneumothorax. No significant interval change. Repeat chest xry revealed: IMPRESSION: Unchanged bibasilar opacities, likely atelectasis with small pleural effusions Brain scan revealed: FINDINGS: Absence of cerebral blood flow is noted along with no brain parenchymal radiotracer uptake. Increased activity is seen in the central face likely representing vascular shunting consistent with the so-called "hot nose" sign. Findings suggest brain however clinical correlation is necessary. IMPRESSION: Findings described above, which would be consistent with brain in the appropriate clinical setting, however clinical correlation is needed. CT of the chest/abdomen/pelvis revealed: IMPRESSION: 1. Hepatic hematoma measuring up to approximately 8.6 cm in greatest dimension, as described above, with hemorrhage extending beyond the liver capsule and into the right pericolic gutter as well as into the pelvis. No definite active arterial bleeding is seen on this exam, although limited evaluation due to the timing of contrast, as this was not a CTA exam. 2. Postsurgical changes of cholecystectomy. 3. Dilated fluid-filled small bowel loops, may be due to postoperative ileus. No small bowel obstruction. 4. Small volume pneumoperitoneum, likely due to recent surgery. Small volume of gas are seen in the upper ventral abdomen from the recent surgery. 5. Dependent atelectasis in the lower lobes. Otherwise, no acute disease in the chest. 6. Endotracheal tube and enteric tube in place. 7. Atrophic right kidney incidentally noted. 8. Additional findings as described above. Critical findings Critical Result: Acute hepatic hematoma with hemorrhage extending beyond the liver capsule into the adjacent portions of the abdomen and into the pelvis as detailed above. Repeat CT of chest/abdomen/pelvis revealed: There is limited interpretation of the chest, abdomen and pelvis without administration of intravenous contrast. Endotracheal tube tip terminates just at the meghan / left main bronchus. Diffuse bilateral pulmonary airspace consolidation bilaterally significantly increased. Bilateral lower lobe lobar consolidation/ atelectasis, increased from prior. Small bilateral pleural effusions. There is extensive edema/ stranding within the upper anterior chest, neck region/supraclavicular region. There is some hyperdensity within this region which could represent components of hematoma / blood products. Heterogeneous appearance of the thyroid gland. Right IJ catheter terminating at the cavoatrial junction. Adrenal glands unremarkable in shape. Perisplenic hematoma. Interval postsurgical changes in the right upper quadrant of the abdomen. There appears to be surgicel/gaseous collection within the previous hematoma cavity, likely representing surgicel. There is a radiopaque density within the resection cavity as well which measures 6.2 x 4.6 cm.. Postoperative changes of the right anterior abdomen with soft tissue emphysema. Small amount of pneumoperitoneum Surgical drainage catheter terminating in the right upper quadrant of the abdomen Right renal parenchymal atrophy. Left kidney demonstrates perinephric edema / stranding. No left hydronephrosis. Nasogastric tube projects towards the distal stomach. Moderate distention small bowel loops. Rectal catheter. Moderate distention of the large bowel loops. Normal appendix. Abdominal aorta normal in caliber. Small amount of ascites fluid/ mesenteric edema. Bladder decompressed by Mora catheter. Soft tissue edema /anasarca. Mesenteric edema. Small amount of ascites fluid. The osseous structures are stable. IMPRESSION: Limited evaluation without contrast. Interval evacuation of the right upper quadrant hematoma. Surgicel within the resection cavity. No significant interval development of new hematoma. There are 2 radiopaque lap pads within the resection cavity . Findings reviewed with Dr. Ledesma at 11:51 a.m. on 01/30/2025 Perisplenic hematoma, similar to previous examination. Extensive bilateral pulmonary airspace consolidation, significantly increased from previous examination. Small bilateral pleural effusions. Right upper quadrant drainage catheter. Pneumoperitoneum. Soft tissue edema / anasarca. Small amount of ascites fluid/ mesenteric edema. Extensive edema within the anterior chest, neck region. Heterogeneous appearance thyroid gland. Other findings as described. CT of the head revealed: IMPRESSION: 1. No evidence of acute intracranial abnormality. Repeat CT of head revealed: FINDINGS: Cerebellar tonsilar herniation. There is sulcal and ventricular effacement. The basal cisterns are effaced. Loss of mario-white matter differentiation is noted. The skull and visible facial bones are intact. The paranasal sinuses, mastoid air cells and middle ear cavities are well-aerated. The soft tissues of the scalp are unremarkable. IMPRESSION: Diffuse cerebral edema with cerebellar tonsillar herniation. Recommend MRI brain for further evaluation. Repeat CT of head revealed: FINDINGS: There is diffuse low attenuation throughout the brain with increased effacement of the ventricles and complete sulcal effacement. There is cerebellar tonsillar herniation. The orbits are normal. There is moderate mucosal thickening within the paranasal sinuses and mastoid air cells. The soft tissues and osseous structures appear within normal limits. IMPRESSION: 1. Findings as above suggesting worsening diffuse cerebral edema in the setting of anoxic brain injury in the given clinical setting. Further clinical correlation is suggested. CT of Neck revealed: IMPRESSION: Limited evaluation without contrast. Extensive soft tissue edema within the neck extending into the anterior / upper chest and anterior mediastinum . Retropharyngeal edema. Heterogeneous appearance of the thyroid gland. Inferior cerebellar tonsillar herniation better seen on the prior CT Renal Ultrasound revealed: IMPRESSION: 1. Right kidney not visible. 2. Left kidney is enlarged. 3. No hydronephrosis. Venous duplex of lower ext revealed: IMPRESSION: NO SONOGRAPHIC EVIDENCE FOR DEEP VENOUS THROMBOSIS IN THE RIGHT LOWER EXTREMITY VEINS. Repeat (bilateral) Venous duplex of lower ext revealed: Impression: 1. No right or left femoropopliteal venous thrombosis. EEG reported: This is a remarkably abnormal EEG, this EEG seen in severe cerebral dysfunction due to metabolic/hypoxic encephalopathy or medication effects, unless this is caused by reversible etiology, this EEG is suggestive of a poor prognosis for meaningful recovery, please correlate clinically. Arrival EKG revealed sinus tachycardia with nonspecific ST-T changes Tele reveals sinus tachycardia Echocardiogram revealed: Technically limited study secondary to poor acoustic windows. Left ventricle: Left ventricle was normal-sized with normal systolic function. LVEF was 55-60%. No gross wall motion abnormality was seen. Right ventricle was mildly dilated with normal systolic function. Left atrium was normal-sized. Right atrium was mildly dilated. Aortic valve: Aortic valve was not well visualized. There was no aortic insufficiency/stenosis. There was no mitral regurgitation. There was trace tricuspid regurgitation. Pulmonary valve was not well visualized. IVC was not visualized. Right ventricular systolic pressure was assessed around 48 mm Hg. There was no pericardial effusion. Patient is a 24-year-old gentleman who presented with post arrest. It seems that the patient had hemorrhagic (intra-abdominal) presentation. Patient did have elective laparoscopic cholecystectomy the day before presentation. On the day of presentation, the patient was taken back to operating room and this time Laparotomy was done for hepatic hematoma. Patient does have multiorgan involvement. Clinically there is no brainstem reflexes. Shock liver/acute renal failure is considered. Troponin has been high. EKG did not reveal any STEMI. Presentation could be high troponin secondary to demand physiology. Patient does not have any risk factors for baseline coronary artery disease. In ideal scenario, ischemic workup/cardiac catheterization could be more revealing. Unfortunately, the patient does have acute renal failure which could be worsened by cardiac catheterization at this point. As there was no higher brain functions the suggestion is to wait and see if patient regains any higher brain function. It is of note that during cardiac catheterization, the patient may need some anticoagulation/antiplatelets. At this point patient is having significant anemia/bleeding and receiving blood transfusion and holding off of scenario forcing Anticoagulation/antiplatelets is advised. I had a long discussion with family members and Mother (repeatedly). Clinically patient has multiorgan failure. Secondary to active bleeding, we will avoid anticoagulation/antiplatelets for now. Being managed in ICU. Was taken to OR repeatedly. Still no reflexes. Echocardiogram revealed no WMA and also revealed good EF. It also revealed increased Pulmonary Artery Pressure in favor of component of Pulmonary Hypertension. Review of Echo images revealed good right ventricular systolic function. Not typical for Pulmonary Emboli. Still, PE cannot be ruled out. If PE is ruled out, then it is possible that patient had Pulmonary Hypertension from before (Baseline history of Asthma may actually reflect it). s/p PRBC transfusion (multiple). Being followed by Surgery, Nephrology, Hematology, Pulmonary, Neurology and GI. . Repeat imaging revealed cerebellar tonsillar herniation. Neurology diagnosed Hypoxic/Metabolic Encephalopathy also. EEG findings question meaningful recovery. Neurology declared patient: brain . Neurology second opinion was in favor of Anoxic/Hypoxic Encephalopathy. Repeat imaging of brain revealed worsening diffuse cerebral edema and also again revealed cerebellar tonsillar herniation. Family are contemplating Trach/PEG. Patient is seen by GI. s/p Tracheostomy s/ p Arrest Intra-abdominal bleeding Hepatic hematoma Multiorgan failure, due to shock Shock liver Lactic Acidosis Acute renal failure Acute respiratory failure, on vent support Status post laparotomy Status post laparoscopic cholecystectomy Abnormal troponin, evaluated to reflect possible demand physiology History of gallstones History of asthma Obesity History of marijuana abuse Consumptive Coagulopathy / DIC Pulmonary Hypertension Cerebellar tonsillar Herniation. Encephalopathy, hypoxic/metabolic Renal failure, started on hemodialysis Brain scan questions brain Anoxic Encephalopathy s/p Tracheostomy Cardiac suggestion for management: Manage in ICU Follow-up electrolytes and kidney function tests and correct abnormalities Evaluation and management of respiratory failure as per Pulmonary Evaluation and management of Cerebellar tonsillar herniation and worsening cerebral edema as per Neurology/surgery/primary team V/Q scan could not be completed Anoxic/Hypoxic Encephalopathy Echocardiogram revealed no WMA and also revealed good EF. It also revealed increased Pulmonary Artery Pressure in favor of component of Pulmonary Hypertension. Hematology follow up (to comment on prophylaxis / treatment of Pulmonary Emboli) Surgical follow up Nephrology follow up (started on hemodialysis) and Hematology follow up Patient is seen by GI Cardiac vidales, moderate risk patient for PEG placement. Avoid Hypotension. DVT prophylaxis as per primary team (compression stocking Vs Lovenox..) Long-term prognosis depends on the above and most importantly regaining of the higher brain function: looks very grim Ischemic workup may be considered only after regaining higher brain function or any special change in clinical presentation Further evaluation and management depends on the above and clinical course A total of 75 minutes was spent reviewing the patient record, examining the patient, making a diagnostic and therapeutic plan, discussing this plan with medical personnel, following up on diagnostic studies and following the patient for clinical stability excluding any and all procedures. At least 50% of this time was spent in direct, [id number] contact. Thank you for allowing me to participate in this patient's care. Further recommendations will depend on patient's clinical course. Please do not hesitate to contact me if you have any questions or concerns. This medical document was created using electronic medical record system with [employer] computerized dictation system. Although this document has been carefully reviewed, there may still be some phonetic and typographical errors. These areas are purely typographical due to the imperfection of the software programs, and do not reflect any compromise in the patient's medical care. Dietary Evaluation Review Recommendations by RD: PPN/TPN Comments: 1) Increase TPN rate to meet at least 75% of estimated daily needs 2) Advance to renal cardiac diet when medically feasible, pending ST approval 3) Follow-up with cardiology, pulmonology, nephrology, neurology, and gastroenterology 4) Continue to monitor I&O, labs, and skin integrity Expected Outcomes/Goals: 1) nutritional support to meet at least 75% of estimated daily needs 2) labs and wound to improve 3) diet to advance 4) gradual wt loss 5) f/u in 2-3 days Plan discussed with: Other (nurse) KATHLEEN COHEN MD Feb 18, 2025 07:47
[2025-02-18 09:25] LABS: Base Excess 4.6 mmol/L (-2.0-3.0)
--- NOTE | 2025-02-18 11:08 | DVHPN2 ---
Progress Note Date Seen: Feb 18, 2025 Has the PT tested + for MRSA If YES, has PT been informed?: No Medical Necessity Reason Pt with a Central, PICC or Fol: Yes The following are medically ne: Mora Catheter Reason for mora catheter: Nakul. Abd Surgery, Strict I&O, Total Immobilization Subjective Review of Systems: RESPIRATORY:Abnormal Other Systems: Patient seen and examined by myself today in follow-up, patient remained intubated on ventilator Objective vital signs Vital Sign Date Time Temp Pulse Resp B/P (MAP) Pulse Ox O2 Delivery O2 Flow Rate FiO2 02/18/25 10:05 101 14 97/53 (68) 92 30 02/18/25 07:00 97.7 207.9 02/18/25 06:00 Mechanical Ventilator+ Total Intake and Output 02/17/25 02/17/25 02/18/25 15:00 23:00 07:00 Intake Total 506.25 ml 584 ml 500.690 ml Output Total 650 ml 425 ml Balance 506.25 ml -66 ml 75.690 ml medications Current Medications Medications Dose Ordered Sig/Serenity Route Start Time Stop Time Status Last Admin Dose Admin Midazolam HCl 50 ml @ 1 mls/hr Q24H IV 01/29/25 14:15 01/29/25 15:56 5 MLS/HR Phenylephrine HCl 250 ml @ 30 mls/hr Q8H20M IV 01/29/25 19:30 01/30/25 01:39 116.25 MLS/HR Levalbuterol HCl 0.625 mg Q4HR PRN NEB 01/29/25 20:00 02/18/25 02:04 0.625 MG Ipratropium [place] 0.5 mg Q4HPRN PRN NEB 01/29/25 20:00 02/18/25 02:04 0.5 MG Epinephrine HCl 250 ml @ 7.5 mls/hr Q24H IV 01/30/25 00:15 Vasopressin 20 units/Sodium Chloride 100 ml @ 9 mls/hr Q11H7M IV 01/30/25 07:30 02/03/25 13:09 9 MLS/HR Amino Acids 0 ml @ 0 mls/hr PER PHARMACY IV 02/01/25 11:15 Diagnostic Test (Pha) 1 strip Q6HR 02/01/25 18:00 02/18/25 05:38 1 STRIP Insulin Human Regular FOLLOW SLIDING SCALE Q6HR SC 02/01/25 18:00 02/18/25 06:16 2 UNITS Dextrose 50 ml UD IV 02/01/25 12:30 Vancomycin HCl 0 ml @ 0 mls/hr UD IV 02/04/25 09:00 Sodium Chloride 10 ml QSHIFT@10,22 IV 02/04/25 22:00 02/18/25 10:21 10 ML Neomycin/ Polymyxin/ Bacitracin 1 applic DAILY TOP 02/06/25 10:00 02/18/25 10:21 1 APPLIC Bumetanide 2 mg BIDD IV 02/06/25 18:00 02/18/25 06:14 2 MG Norepinephrine Bitartrate 250 ml @ 0.938 mls/ hr Q24H IV 02/07/25 11:30 02/16/25 11:44 0.938 MLS/HR Artificial Tears 1 drop Q4HP PRN EACHEYE 02/08/25 07:30 Pantoprazole Sodium 40 mg Q12HR IV 02/08/25 22:00 02/18/25 10:21 40 MG Enteral Nutritional Formula 1,000 ml 20 NG 02/11/25 23:15 02/12/25 09:15 1,000 ML Epoetin Gunnar-epbx 8,000 unit MWF@2100 [place] 02/17/25 21:00 02/17/25 21:07 8,000 UNIT Fat Emulsion Intravenous 100 ml/Sodium Chloride 80 meq/ Magnesium Sulfate 2 meq/ Multivitamins 10 ml/Amino Acids/ Dextrose 1,480.5 ml @ 62 mls/hr [id number] IV 02/17/25 22:00 02/18/25 21:59 02/17/25 21:06 62 MLS/HR Fat Emulsion Intravenous 50 ml/ Sodium Chloride 100 meq/Magnesium Sulfate 2 meq/ Multivitamins 10 ml/Amino Acids/ Dextrose 1,435.5 ml @ 60 mls/hr [id number] IV 02/18/25 22:00 02/19/25 21:59 Examination: LUNGS:Normal, CVS:Normal, MSK:Normal laboratory and microbiology Laboratory Tests 02/18/25 03:03 Test 02/18/25 03:03 Range/Units Serum Glucose 149 H 74-106 mg/dL Microbiology Date/Time Source Procedure Growth Status 02/09/25 03:40 Blood Blood Culture - Final NO GROWTH AFTER 5 DAYS OF INCUBATION. Complete 02/02/25 22:00 Urine - Mora Port Urine Culture - Final Complete 01/30/25 00:00 Nose MRSA Screen - Final Complete 01/29/25 10:43 Sputum Gram Stain - Final Complete 01/29/25 10:43 Sputum Respiratory Culture - Final Complete Problem List/Assessment/Plan Problem List/Assessment/Plan Acute kidney injury likely ischemic ATN in the setting of shock, FeNa > 2%, nonoliguric Acute respiratory failure, intubated on ventilator Status post cardiac arrest Anoxic encephalopathy Hyperkalemia secondary to above Metabolic acidosis anion gap secondary to lactic acidosis secondary to reduced perfusion from hemorrhage Hemodynamic shock from bleeding Acute blood loss anemia/post op Status post laparoscopic cholecystectomy on 01/28/25 [facility] Status post ex lap, 01/29 Positive troponins NSTEMI--likely demand ischemia Shock liver Vitamin-D deficiency Recommendations Hemodialysis tomorrow Epogen [id number] subQ 3 times weekly Increased urine output Mora catheter strict I&Os Vitamin-D replacement Packed red blood cell transfusion p.r.n. IV antibiotics IV pressors for blood pressure support We will continue to follow . Total care time 30 minutes I discussed my plan of care with mother and the primary nurse at the bedside Plan discussed with: Other (Nurse) My Orders My Orders Orders - FELICIANO KHAN MD Procedure Category Date Status Time Hemodialysis Orders ORDERS 02/17/25 Transmitted 17:56 Dietary Evaluation Review Recommendations by RD: PPN/TPN Comments: 1) Increase TPN rate to meet at least 75% of estimated daily needs 2) Advance to renal cardiac diet when medically feasible, pending ST approval 3) Follow-up with cardiology, pulmonology, nephrology, neurology, and gastroenterology 4) Continue to monitor I&O, labs, and skin integrity Expected Outcomes/Goals: 1) nutritional support to meet at least 75% of estimated daily needs 2) labs and wound to improve 3) diet to advance 4) gradual wt loss 5) f/u in 2-3 days FELICIANO KHAN MD Feb 18, 2025 11:08
--- NOTE | 2025-02-18 19:10 | DVHPNRES ---
Progress Note Date Seen: Feb 18, 2025 Resident Creating Document: ARNOLD MUHAMMAD RESZENENT Has the PT tested + for MRSA If YES, has PT been informed?: No Medical Necessity Reason Pt with a Central, PICC or Fol: Yes The following are medically ne: Mora Catheter Reason for mora catheter: Nakul. Abd Surgery, Strict I&O, Total Immobilization Subjective Review of Systems Patient seen and examined at the bedside. Patient is on mechanical ventilation, off from sedation. Objective vital signs Vital Sign Date Time Temp Pulse Resp B/P (MAP) Pulse Ox O2 Delivery O2 Flow Rate FiO2 02/18/25 18:58 93 Mechanical Ventilator+ 30 30 02/18/25 18:17 14 02/18/25 18:17 82 02/18/25 18:09 96/51 02/18/25 16:00 98.2 208.8 Total Intake and Output 02/17/25 02/17/25 02/18/25 15:00 23:00 07:00 Intake Total 506.25 ml 584 ml 500.690 ml Output Total 650 ml 425 ml Balance 506.25 ml -66 ml 75.690 ml medications Current Medications Medications Dose Ordered Sig/Serenity Route Start Time Stop Time Status Last Admin Dose Admin Midazolam HCl 50 ml @ 1 mls/hr Q24H IV 01/29/25 14:15 01/29/25 15:56 5 MLS/HR Phenylephrine HCl 250 ml @ 30 mls/hr Q8H20M IV 01/29/25 19:30 01/30/25 01:39 116.25 MLS/HR Levalbuterol HCl 0.625 mg Q4HR PRN NEB 01/29/25 20:00 02/18/25 02:04 0.625 MG Ipratropium [place] 0.5 mg Q4HPRN PRN NEB 01/29/25 20:00 02/18/25 02:04 0.5 MG Epinephrine HCl 250 ml @ 7.5 mls/hr Q24H IV 01/30/25 00:15 Vasopressin 20 units/Sodium Chloride 100 ml @ 9 mls/hr Q11H7M IV 01/30/25 07:30 02/03/25 13:09 9 MLS/HR Amino Acids 0 ml @ 0 mls/hr PER PHARMACY IV 02/01/25 11:15 Diagnostic Test (Pha) 1 strip Q6HR 9/20/25 18:00 02/18/25 17:37 1 STRIP Insulin Human Regular FOLLOW SLIDING SCALE Q6HR SC 02/01/25 18:00 02/18/25 06:16 2 UNITS Dextrose 50 ml UD IV 02/01/25 12:30 Vancomycin HCl 0 ml @ 0 mls/hr UD IV 02/04/25 09:00 Sodium Chloride 10 ml QSHIFT@10,22 IV 02/04/25 22:00 02/18/25 10:21 10 ML Neomycin/ Polymyxin/ Bacitracin 1 applic DAILY TOP 02/06/25 10:00 02/18/25 10:21 1 APPLIC Bumetanide 2 mg BIDD IV 02/06/25 18:00 02/18/25 18:09 2 MG Norepinephrine Bitartrate 250 ml @ 0.938 mls/ hr Q24H IV 02/07/25 11:30 02/16/25 11:44 0.938 MLS/HR Artificial Tears 1 drop Q4HP PRN EACHEYE 02/08/25 07:30 Pantoprazole Sodium 40 mg Q12HR IV 02/08/25 22:00 02/18/25 10:21 40 MG Enteral Nutritional Formula 1,000 ml 20 NG 02/11/25 23:15 02/12/25 09:15 1,000 ML Epoetin [place]iona-epbx 8,000 unit MWF@2100 [place] 02/17/25 21:00 02/17/25 21:07 8,000 UNIT Fat Emulsion Intravenous 100 ml/Sodium Chloride 80 meq/ Magnesium Sulfate 2 meq/ Multivitamins 10 ml/Amino Acids/ Dextrose 1,480.5 ml @ 62 mls/hr [id number] IV 02/17/25 22:00 02/18/25 21:59 02/17/25 21:06 62 MLS/HR Fat Emulsion Intravenous 50 ml/ Sodium Chloride 100 meq/Magnesium Sulfate 2 meq/ Multivitamins 10 ml/Amino Acids/ Dextrose 1,435.5 ml @ 60 mls/hr [id number] IV 02/18/25 22:00 02/19/25 21:59 Examination General: RASS -5, afebrile, mucosae are moist Cardiovascular: Normal S1 and S2. No murmurs, gallops or rubs Respiratory: Mechanically assisted ventilation, equal bilateral airway entree. Clear lung sounds on auscultation Abdomen: Soft, nontender, no organomegaly, with surgical wound on abdomin MSK/skin: Mobilization of limbs cannot be evaluated. Skin is dry and warm. Neurological: Orientation cannot be assessed. Pupils are dilated and nonreactive to light, absent brainstem reflexes laboratory and microbiology Laboratory Tests 02/18/25 03:03 Test 02/18/25 03:03 Range/Units Serum Glucose 149 H 74-106 mg/dL Microbiology Date/Time Source Procedure Growth Status 02/09/25 03:40 Blood Blood Culture - Final NO GROWTH AFTER 5 DAYS OF INCUBATION. Complete 02/02/25 22:00 Urine - Mora [place] Urine Culture - Final Complete 01/30/25 00:00 Nose MRSA Screen - Final Complete 01/29/25 10:43 Sputum Gram Stain - Final Complete 01/29/25 10:43 Sputum Respiratory Culture - Final Complete Labs and/or images reviewed: Labs reviewed by me Problem List/Assessment/Plan Problem List/Assessment/Plan This is a 24-year-old male with no significant past medical history underwent elective laparoscopic cholecystectomy on 01/28 at [facility] (due to cholelithiasis), on 2nd day postop at home became lethargic and subsequently coded. ROSC was achieved with CPR, abdominal CT scan showed intra-abdominal hematoma, underwent emergent laparotomy and drained about 500-750 thrombosed and dark blood. NEURO: Hypoxic encephalopathy, due to cardiac arrest Anoxic brain injury * RASS Score -5 * Head CT from 01/30 shows, Cerebellar tonsilar herniation. There is sulcal and ventricular effacement. The basal cisterns are effaced. Loss of mario-white matter differentiation is noted. * Head CT on 02/11 shows worsening diffuse cerebral edema in the setting of anoxic brain injury * BRNNM-brain imaging, shows absence blood flow, findings suggest brain in the appropriate clinical setting * Plan: PEG tube placement and transfering to LTAC CARDIOVASCULAR: NSTEMI possible type 2 Status post cardiac arrest Distributive shock (vasoplegia)/neurogenic shock/septic shock vasopressin * Cardiology on the board, recommended medical management * Echo from 01/30 shows,Technically limited study secondary to poor acoustic windows, normal LV size and function, 55-60% PULMONARY: Acute hypoxic respiratory failure, likely due to anoxic brain injury Cxr showed bilateral mild pulmonary vascular congestion GASTROINTESTINAL: Acute transaminitis secondary to hypovolemic shock Coagulopathy Hypoalbuminemia Status post laparoscopic cholecystectomy Status post exploratory laparotomy for hemoperitoneum Transaminitis, likely due to TPN GENITOURINARY: HARLEEN secondary to hypovolemic shock * Nephrology on the board, performed dialysis on 02/03 * IV Bumex 2 mg b.i.d. METABOLIC: Severe anion gap metabolic acidosis due to lactic acidosis Hypernatremia Grade 2 obesity, BMI 35.7 kg per m2 Hypoglycemia HEME: Severe anemia, due to bleeding * Received 3 units of PRBC, 2 units of FFP and 1 unit of cryoprecipitate * Monitor H&H and epoetin fiona INFECTIOUS DISEASE: Leucocytosis Lactic acidosis * Urine culture, blood culture and respiratory culture shows no growth * On Zosyn and vancomycin DIET: TPN DVT prophylax: Hold GI prophylaxis: Protonix Code status: Full code LINES/DRAINS/ACCESS: ETT: Intubated on 01/29 IV access: Lt IJ placed on 01/29/25 left subclavian, tunneled dialysis catheter placed on 02/14 Drips: On Levophed Mora catheter: Placed on 01/29 DISPOSITION: ICU status Patient's status discussed with the patient's mother at the bedside. Critical care time spent more than 47 minutes, including patient care, chart review, and updating the family. Excluding any procedures. Case discussed with Dr. Troy Plan discussed with: Other My Orders My Orders Orders - ARNOLD MUHAMMAD RESDIRONNI Procedure Category Date Status Time Abg W/ Co-Ox RT 02/18/25 Logged 06:00 Dietary Evaluation Review Recommendations by RD: PPN/TPN Comments: 1) Increase TPN rate to meet at least 75% of estimated daily needs 2) Advance to renal cardiac diet when medically feasible, pending ST approval 3) Follow-up with cardiology, pulmonology, nephrology, neurology, and gastroenterology 4) Continue to monitor I&O, labs, and skin integrity Expected Outcomes/Goals: 1) nutritional support to meet at least 75% of estimated daily needs 2) labs and wound to improve 3) diet to advance 4) gradual wt loss 5) f/u in 2-3 days Date of Service: Feb 18, 2025 Billing Provider: JEFFREY TROY MD Common Visit Codes: 72910-[id number] CARE 30-74 MIN ARNOLD MUHAMMAD Feb 18, 2025 19:10 JEFFREY TROY MD Feb 19, 2025 14:26
--- NOTE | 2025-02-18 19:37 | DVHPN2 ---
Progress Note Date Seen: Feb 18, 2025 Has the PT tested + for MRSA If YES, has PT been informed?: No Medical Necessity Reason Pt with a Central, PICC or Fol: Yes The following are medically ne: Mora Catheter Reason for mora catheter: Nakul. Abd Surgery, Strict I&O, Total Immobilization Subjective Review of Systems Pt's mother and brother at bedside. Per RN, no changes. Levophed off. Objective vital signs Vital Sign Date Time Temp Pulse Resp B/P (MAP) Pulse Ox O2 Delivery O2 Flow Rate FiO2 02/18/25 18:58 93 Mechanical Ventilator+ 30 30 02/18/25 18:17 14 02/18/25 18:17 82 02/18/25 18:09 96/51 02/18/25 16:00 98.2 208.8 Total Intake and Output 02/17/25 02/17/25 02/18/25 15:00 23:00 07:00 Intake Total 506.25 ml 584 ml 500.690 ml Output Total 650 ml 425 ml Balance 506.25 ml -66 ml 75.690 ml medications Current Medications Medications Dose Ordered Sig/Serentiy Route Start Time Stop Time Status Last Admin Dose Admin Midazolam HCl 50 ml @ 1 mls/hr Q24H IV 01/29/25 14:15 01/29/25 15:56 5 MLS/HR Phenylephrine HCl 250 ml @ 30 mls/hr Q8H20M IV 01/29/25 19:30 01/30/25 01:39 116.25 MLS/HR Levalbuterol HCl 0.625 mg Q4HR PRN NEB 01/29/25 20:00 02/18/25 02:04 0.625 MG Ipratropium [place] 0.5 mg Q4HPRN PRN NEB 01/29/25 20:00 02/18/25 02:04 0.5 MG Epinephrine HCl 250 ml @ 7.5 mls/hr Q24H IV 01/30/25 00:15 Vasopressin 20 units/Sodium Chloride 100 ml @ 9 mls/hr Q11H7M IV 01/30/25 07:30 02/03/25 13:09 9 MLS/HR Amino Acids 0 ml @ 0 mls/hr PER PHARMACY IV 02/01/25 11:15 Diagnostic Test (Pha) 1 strip Q6HR 02/01/25 18:00 02/18/25 17:37 1 STRIP Insulin Human Regular FOLLOW SLIDING SCALE Q6HR SC 02/01/25 18:00 02/18/25 06:16 2 UNITS Dextrose 50 ml UD IV 02/01/25 12:30 Vancomycin HCl 0 ml @ 0 mls/hr UD IV 02/04/25 09:00 Sodium Chloride 10 ml QSHIFT@10,22 IV 02/04/25 22:00 02/18/25 10:21 10 ML Neomycin/ Polymyxin/ Bacitracin 1 applic DAILY TOP 02/06/25 10:00 02/18/25 10:21 1 APPLIC Bumetanide 2 mg BIDD IV 02/06/25 18:00 02/18/25 18:09 2 MG Norepinephrine Bitartrate 250 ml @ 0.938 mls/ hr Q24H IV 02/07/25 11:30 02/16/25 11:44 0.938 MLS/HR Artificial Tears 1 drop Q4HP PRN EACHEYE 02/08/25 07:30 Pantoprazole Sodium 40 mg Q12HR IV 02/08/25 22:00 02/18/25 10:21 40 MG Enteral Nutritional Formula 1,000 ml 20 NG 02/11/25 23:15 02/12/25 09:15 1,000 ML Epoetin Gunnar-epbx 8,000 unit MWF@2100 [place] 02/17/25 21:00 02/17/25 21:07 8,000 UNIT Fat Emulsion Intravenous 100 ml/Sodium Chloride 80 meq/ Magnesium Sulfate 2 meq/ Multivitamins 10 ml/Amino Acids/ Dextrose 1,480.5 ml @ 62 mls/hr [id number] IV 02/17/25 22:00 02/18/25 21:59 02/17/25 21:06 62 MLS/HR Fat Emulsion Intravenous 50 ml/ Sodium Chloride 100 meq/Magnesium Sulfate 2 meq/ Multivitamins 10 ml/Amino Acids/ Dextrose 1,435.5 ml @ 60 mls/hr [id number] IV 02/18/25 22:00 02/19/25 21:59 Examination Neuro. Unchanged. Dilated fixed pupils. No reflexes. CV. Hr 80s. SBP 95. Previous LSCV HD catheter site C/D/I. Right PC and PICC catheter exit sites remain C/D/I. Epistaxis, resolved. Some minimal blood during oral care. Pulmonary: Tracheostomy in place. C/D/I. Mechanical ventilator support 500/14/30%/+7. RR 14/min. Suction tubing clean. GI: Soft, obese, nondistended and non tender. Incisions and dressing C/D/I. NGT to suction. 100 mL output/shift. . Mora catheter in place. Clear yellow urine in collection bag Extremities. No edema Resolved facial and neck edema. Mild orbital edema laboratory and microbiology Laboratory Tests 02/18/25 03:03 Test 02/18/25 03:03 Range/Units Serum Glucose 149 H 74-106 mg/dL Microbiology Date/Time Source Procedure Growth Status 02/09/25 03:40 Blood Blood Culture - Final NO GROWTH AFTER 5 DAYS OF INCUBATION. Complete 02/02/25 22:00 Urine - Mora [place] Urine Culture - Final Complete 01/30/25 00:00 Nose MRSA Screen - Final Complete 01/29/25 10:43 Sputum Gram Stain - Final Complete 01/29/25 10:43 Sputum Respiratory Culture - Final Complete Labs and/or images reviewed: Labs reviewed by me, Image(s) reviewed by me Problem List/Assessment/Plan Problems(with codes): (1) ARF (acute renal failure) (2) Ventilator dependent (3) Tonsillar hernia into foramen magnum (4) Cerebral edema (5) Cerebral edema due to anoxia (6) Cardiopulmonary arrest with successful resuscitation (7) Hypoxic ischemic encephalopathy due to cardiac arrest (8) Coma after cardiorespiratory arrest (9) Shock liver Problem List/Assessment/Plan Neuro: Appreciate neurology input and assistance. CT revealed cerebral edema and tonsillar herniation.EEG no electric activity. Cerebral perfusion study confirmed no perfusion radiographically consistent with brain which was concordant with initial clinical diagnosis and EEG. However, pt continues demonstrating brainstem function as he is breathing over vent set rate of 14. RR. There seems to be autonomic dysfunction. Pt's BP fluctuating and RR. F/U (3rd) CT brain worsening cerebral edema and tonsillar herniation. Mother and brother aware. CV: Occasional episodes of hypotension, likely autonomic deregulation secondary to brain injury. Levophed off. Midodrine 2.5 mg BID via NGT to maintain BP Cardiology assistance appreciated. Mechanical DVT prophylaxis. Unlikely PE (can't rule it out) but patient oxygenating well, no tachycardia. Pulmonary hypertension possibly unknowingly preexistent. Duplex negative for DVT Pulmonary: VDRF. S/p tracheostomy. CXR no PTX. Low lung volumet, ATX and small pleural effusion.Increase Vt 550 and decreasing RR to 12, FIO2 40%. ABG reviewed. Continue ventilator. Appreciate pulmonary medicine assistance. No expectoration/phlegm upon suctioning. Pulmonary medicine following. Pt approved for preferred [facility] facility with inpatient HD. GI: NGT to suction. Hold TPN tonight. Continue BID GI prophylaxis. Hepatic shock. PEG not possible. Arrangements made for Dx Lap and PEG, possible surgical gastrostomy with Dr. Mack on tomorrow at 12. Procedure, risk and benefits explained to mother and brother. Aware of bleeding, infection, leak, tube dislodgement, injury to internal organs, blood vessels or nerves, blood clots in legs/veins, heart complications and/ or . She understood and agree to proceed. . ARF/ATN secondary to hemorrhagic shock. Uremia and elevated crea. D5/1/2 NS at 50 mL/hr. Strict I&O. Stable u/o. Mora to gravity. Appreciate nephrology assistance. Replace/correct electrolytes. HD per nephrology. Heme/ID. Hemorrhagic shock resolved. Uremia, which may impact platelet function. No further sanguineous drainage from IV access, OGT or ETT suction tubing. Some bleeding during oral care. Pts' mother stated that pt had been bleeding from his mouth while brushing his teeth (Martha RN present). Hgb stable. VW Ag high. Inflammatory reaction. Dr. Barry will discuss with pt family. Minimizing blood draw frequency to avoid worsening anemia. Leukocytosis 12. Possibly reactive after surgery. Repeat labs AM. Appreciate hematology assistance. Continue Vancomycin for now, given leukocytosis. If persists will require workup. Endocrine: Tight glycemic control. Skin: Skin care and pressure ulcer precautions. Plan discussed with: Other (Mother, brother and RN) My Orders My Orders Orders - JITENDRA ZAMORA MD Procedure Category Date Status Time Chest Xray 1 View XY 02/17/25 Resulted 22:02 Amino Acid PHA 02/18/25 In Process Infusion... W/Fat 22:00 Comprehensive LAB 02/19/25 Verified Metabolic Panel 05:00 Magnesium LAB 02/19/25 Verified 05:00 Phosphorus LAB 02/19/25 Verified 05:00 Tpn Per Pharmacy [facility] 02/18/25 In Process 10:03 Vancomycin Per [facility] 02/18/25 In Process Pharmacy Protoc 11:00 Chest Portable XY 02/19/25 Logged 05:00 Chest Portable XY 02/20/25 Logged 05:00 Chest Portable XY 02/21/25 Logged 05:00 Midodrine Tablet PHA 02/18/25 Logged (Proamatine Tablet) 22:00 Ventilator Orders RT 02/18/25 Transmitted 19:08 Abg W/ Co-Ox RT 02/18/25 Logged 20:00 Dietary Evaluation Review Recommendations by RD: PPN/TPN Comments: 1) Increase TPN rate to meet at least 75% of estimated daily needs 2) Advance to renal cardiac diet when medically feasible, pending ST approval 3) Follow-up with cardiology, pulmonology, nephrology, neurology, and gastroenterology 4) Continue to monitor I&O, labs, and skin integrity Expected Outcomes/Goals: 1) nutritional support to meet at least 75% of estimated daily needs 2) labs and wound to improve 3) diet to advance 4) gradual wt loss 5) f/u in 2-3 days JITENDRA ZAMORA MD Feb 18, 2025 19:37
[2025-02-18] MEDS: MIDODRINE HCL 10 MG TAB PO SCH (20:05)
[2025-02-18 21:12] LABS: Base Excess 3.6 mmol/L (-2.0-3.0)
[2025-02-18] MEDS: D5W/SOD CHL 0.45% 1,000 ML IV SCH (21:45)
[2025-02-18] MEDS: TPN PER PHARMACY IV NR (22:24)
[2025-02-19] VITALS (111 sets, daily range): BP systolic 77–136; BP diastolic 33–95; PULSE 60–97; RESP 12–20; TEMP 96.3–99.1; O2SAT 92–100
--- NOTE | 2025-02-19 04:40 | DVH ---
CHEST RADIOGRAPH Indication: VDRF Technique: 1 view Comparison: XY CHEST XRAY 1 VIEW on DOS: 02/17/25, XY CHEST PORTABLE on DOS: 02/17/25, XY CHEST PORTABL E on DOS: 02/16/25, XY CHEST PORTABLE on DOS: 02/15/25, XY CHEST PORTABLE on DOS: 02/14/25 FINDINGS: The lung apices are excluded. Lines and Tubes: Unchanged. Lungs/Pleura: Unchanged. Cardiomediastinum: Unchanged. Other: Unchanged osseous structures. IMPRESSION: 1. No significant change from the previous study. Stable support devices. Persistent left pleural ef fusion and bibasilar airspace disease.
[2025-02-19 04:55] LABS: Albumin 3.5 g/dL (3.2-4.8); Anion Gap 19 (5-15); BUN/Creatinine Ratio 13.5 (10.0-20.0); Calcium 9.1 mg/dL (8.7-10.4); Carbon Dioxide 23 mmol/L (20-31); Glucose 79 mg/dL (74-106); Magnesium 2.2 mg/dL (1.6-2.6); Potassium 4.6 mmol/L (3.5-5.1); Sodium 138 mmol/L (136-145); Total Protein 7.8 g/dL (5.7-8.2)
[2025-02-19 04:57] LABS: Alanine Aminotransferase 63 U/L (7-40); Bilirubin, Total 2.9 mg/dL (0.2-1.0); Chloride 96 mmol/L (98-107)
[2025-02-19 04:58] LABS: Blood Urea Nitrogen 93 mg/dL (9-23)
[2025-02-19 05:03] LABS: Alkaline Phosphatase 1274 U/L (46-116)
--- NOTE | 2025-02-19 07:35 | DVHPN2 ---
Progress Note Date Seen: Feb 19, 2025 Has the PT tested + for MRSA If YES, has PT been informed?: No Medical Necessity Reason Pt with a Central, PICC or Fol: Yes The following are medically ne: Mora Catheter Reason for mora catheter: Nakul. Abd Surgery, Strict I&O, Total Immobilization Subjective Review of Systems Per RN pt hypotensive, needed to star Levophed. Currently at 1.4 mcg/kg. MAP 73. Per RT clear secretions with slight yellow tinge Objective vital signs Vital Sign Date Time Temp Pulse Resp B/P (MAP) Pulse Ox O2 Delivery O2 Flow Rate FiO2 02/19/25 06:45 98.8 92 12 111/70 (84) 99 209.8 02/19/25 06:23 40 02/19/25 06:00 Mechanical Ventilator+ Total Intake and Output 02/18/25 02/18/25 02/19/25 15:00 23:00 07:00 Intake Total 501.628 ml 286 ml 865.1 ml Output Total 625 ml 300 ml Balance 501.628 ml -339 ml 565.1 ml medications Current Medications Medications Dose Ordered Sig/Serenity Route Start Time Stop Time Status Last Admin Dose Admin Midazolam HCl 50 ml @ 1 mls/hr Q24H IV 01/29/25 14:15 01/29/25 15:56 5 MLS/HR Phenylephrine HCl 250 ml @ 30 mls/hr Q8H20M IV 01/29/25 19:30 01/30/25 01:39 116.25 MLS/HR Levalbuterol HCl 0.625 mg Q4HR PRN NEB 01/29/25 20:00 02/19/25 06:23 0.625 MG Ipratropium Fenton 0.5 mg Q4HPRN PRN NEB 01/29/25 20:00 02/19/25 06:23 0.5 MG Epinephrine HCl 250 ml @ 7.5 mls/hr Q24H IV 01/30/25 00:15 Vasopressin 20 units/Sodium Chloride 100 ml @ 9 mls/hr Q11H7M IV 01/30/25 07:30 02/03/25 13:09 9 MLS/HR Amino Acids 0 ml @ 0 mls/hr PER PHARMACY IV 02/01/25 11:15 Diagnostic Test (Pha) 1 strip Q6HR 02/01/25 18:00 02/19/25 06:00 1 STRIP Insulin Human Regular FOLLOW SLIDING SCALE Q6HR SC 02/01/25 18:00 02/18/25 06:16 2 UNITS Dextrose 50 ml UD IV 02/01/25 12:30 Vancomycin HCl 0 ml @ 0 mls/hr UD IV 02/04/25 09:00 Sodium Chloride 10 ml QSHIFT@10,22 IV 02/04/25 22:00 02/18/25 22:00 10 ML Neomycin/ Polymyxin/ Bacitracin 1 applic DAILY TOP 02/06/25 10:00 02/18/25 10:21 1 APPLIC Bumetanide 2 mg BIDD IV 02/06/25 18:00 02/19/25 06:16 2 MG Norepinephrine Bitartrate 250 ml @ 0.938 mls/ hr Q24H IV 02/07/25 11:30 02/19/25 01:24 0.938 MLS/HR Artificial Tears 1 drop Q4HP PRN EACHEYE 02/08/25 07:30 Pantoprazole Sodium 40 mg Q12HR IV 02/08/25 22:00 02/18/25 22:24 40 MG Enteral Nutritional Formula 1,000 ml 20 NG 02/11/25 23:15 02/12/25 09:15 1,000 ML Epoetin Gunnar-epbx 8,000 unit MWF@2100 [place] 02/17/25 21:00 02/17/25 21:07 8,000 UNIT Fat Emulsion Intravenous 50 ml/ Sodium Chloride 100 meq/Magnesium Sulfate 2 meq/ Multivitamins 10 ml/Amino Acids/ Dextrose 1,435.5 ml @ 60 mls/hr [id number] IV 02/18/25 22:00 02/19/25 21:59 Midodrine 2.5 mg BIDD PO 02/18/25 19:30 02/19/25 06:16 2.5 MG Dextrose/Sodium Chloride 1,000 ml @ 50 mls/hr Q20H IV 02/18/25 21:45 02/18/25 21:45 50 MLS/HR Examination Neuro. Unchanged. Dilated fixed pupils. No reflexes. CV. Hr 80s. SBP 113, MAP 73. Previous LSCV HD catheter site C/D/I. Right PC and PICC catheter exit sites remain C/D/I. Epistaxis, resolved. Some minimal blood during oral care. Pulmonary: Tracheostomy in place. C/D/I. Mechanical ventilator support 500/14/30%/+7. RR 14/min. Suction tubing with clear secretions, slight yellow tinge. GI: Soft, obese, nondistended and non tender. Incisions and dressing C/D/I. NGT to suction. Minimal brown output. . Mora catheter in place. Clear yellow urine in collection bag Extremities. No edema Resolved facial and neck edema. Mild orbital edema laboratory and microbiology Laboratory Tests 02/19/25 03:30 Test 02/19/25 03:30 Range/Units Serum Glucose 79 74-106 mg/dL Microbiology Date/Time Source Procedure Growth Status 02/09/25 03:40 Blood Blood Culture - Final NO GROWTH AFTER 5 DAYS OF INCUBATION. 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 CT revealed cerebral edema and tonsillar herniation.EEG no electric activity. Cerebral perfusion study confirmed no perfusion radiographically consistent with brain which was concordant with initial clinical diagnosis and EEG. However, pt continues demonstrating brainstem function as he is breathing over vent set rate of 14. RR. There seems to be autonomic dysfunction. Pt's BP fluctuating and RR. F/U (3rd) CT brain worsening cerebral edema and tonsillar herniation. Mother and brother aware. CV: Occasional episodes of hypotension, likely autonomic deregulation secondary to brain injury. Levophed off. Midodrine 2.5 mg BID via NGT to maintain BP. Still requiring low dose Levophed. Cardiology assistance appreciated. Mechanical DVT prophylaxis. Unlikely PE (can't rule it out) but patient oxygenating well, no tachycardia. Pulmonary hypertension possibly unknowingly preexistent. Duplex negative for DVT Pulmonary: VDRF. S/p tracheostomy. CXR no PTX. Low lung volumes, slight improvement. ATX and small pleural effusion. Sputum culture. R/O PNA. ABG reviewed, slight improvement on PaO2. Continue ventilator. Appreciate pulmonary medicine assistance. Pulmonary medicine following. Pt approved for preferred subacute [facility] facility with inpatient HD. GI: NGT to suction. Continue BID GI prophylaxis. Hepatic shock. PEG not possible. Arrangements made for Dx Lap and PEG, possible surgical gastrostomy with Dr. Mack today. Procedure, risk and benefits explained to mother and brother. Aware of bleeding, infection, leak, tube dislodgement, injury to internal organs, blood vessels or nerves, blood clots in legs/veins, heart complications and/ or . She understood and agree to proceed. . ARF/ATN secondary to hemorrhagic shock. Uremia and elevated crea. D5/1/2 NS at 50 mL/hr. Strict I&O. Stable u/o. Mora to gravity. Appreciate nephrology assistance. Replace/correct electrolytes. HD per nephrology. Heme/ID. Hemorrhagic shock resolved. Uremia, which may impact platelet function. No further sanguineous drainage from IV access, OGT or ETT suction tubing. Some bleeding during oral care. Hgb stable. VW Ag high. Inflammatory reaction. Dr. Barry will discuss with pt family. Minimizing blood draw frequency to avoid worsening anemia. Pending CBC. Possibly reactive after surgery. Repeat labs AM. Appreciate hematology assistance. Continue Vancomycin for now, given leukocytosis. If persists will require workup. Endocrine: Tight glycemic control. Skin: Skin care and pressure ulcer precautions. Plan discussed with: Other (RN and RT) My Orders My Orders Orders - JITENDRA ZAMORA MD Procedure Category Date Status Time Amino Acid PHA 02/18/25 In Process Infusion... W/Fat 22:00 Tpn Per Pharmacy YANET 02/18/25 In Process 10:03 Vancomycin Per [facility]ANET 02/18/25 In Process Pharmacy Protoc 11:00 Chest Portable XY 02/19/25 Resulted 05:00 Chest Portable XY 02/20/25 Logged 05:00 Chest Portable XY 02/21/25 Logged 05:00 Midodrine Tablet PHA 02/18/25 In Process (Proamatine Tablet) 19:30 Ventilator Orders RT 02/18/25 Transmitted 19:08 Abg W/ Co-Ox RT 02/18/25 Logged 20:00 D5w/Sod Chl 0.45% PHA 02/18/25 In Process (D5w 1/2ns) 21:45 Respiratory Culture [id number] 02/19/25 Verified W/ Gs 07:11 Dietary Evaluation Review Recommendations by RD: PPN/TPN Comments: 1) Increase TPN rate to meet at least 75% of estimated daily needs 2) Advance to renal cardiac diet when medically feasible, pending ST approval 3) Follow-up with cardiology, pulmonology, nephrology, neurology, and gastroenterology 4) Continue to monitor I&O, labs, and skin integrity Expected Outcomes/Goals: 1) nutritional support to meet at least 75% of estimated daily needs 2) labs and wound to improve 3) diet to advance 4) gradual wt loss 5) f/u in 2-3 days JITENDRA ZAMORA MD Feb 19, 2025 07:35
[2025-02-19 07:55] LABS: Base Excess 2.0 mmol/L (-2.0-3.0)
[2025-02-19 09:28] LABS: Hematocrit 24.0 % (41.0-53.0); Hemoglobin 7.9 g/dL (13.5-17.5); Mean Corpuscular Hemoglobin 28.8 pg (28.0-32.0); Mean Corpuscular Volume 87.2 fL (80.0-100.0); Nucleated Red Blood Cells % 0.1 %
[2025-02-19] MEDS: ALBUMIN 25% 100 ML IV ONE ×2 (10:59→11:32)
[2025-02-19] MEDS ORDERED: fentaNYL CITRATE 5 ML ONE (11:09)
[2025-02-19] MEDS ORDERED: KETAMINE 50mg/ML 10ml Vial 0 ML ONE (11:09)
[2025-02-19] MEDS ORDERED: SODIUM CHLORIDE LOCK 40 ML ONE (11:09)
[2025-02-19] MEDS ORDERED: MIDAZOLAM HCL 2MG/2ML 2ml VIAL (1mg/ml) ONE (11:09)
[2025-02-19] MEDS ORDERED: LIDOCAINE 1% INJ PF 5ML AMP ONE (11:09)
[2025-02-19] MEDS ORDERED: ROCURONIUM 10MG/ML 10ML VIAL IV ONE ×2 (11:09→19:42)
[2025-02-19] MEDS ORDERED: HYDROmorphone HCL 2 MG/ML VL/or syr ONE (11:09)
--- NOTE | 2025-02-19 11:14 | DVHPN2 ---
Progress Note - Dictate Date Seen: Feb 19, 2025 Has the PT tested + for MRSA If YES, has PT been informed?: No Medical Necessity Reason Pt with a Central, PICC or Fol: Yes The following are medically ne: Mora Catheter Reason for mora catheter: Nakul. Abd Surgery, Strict I&O, Total Immobilization vital signs Vital Sign Date Time Temp Pulse Resp B/P (MAP) Pulse Ox O2 Delivery O2 Flow Rate FiO2 02/19/25 11:00 97.3 75 12 97/57 (70) 100 207.1 02/19/25 10:00 40 02/19/25 10:00 Mechanical Ventilator+ Total Intake and Output 02/18/25 02/18/25 02/19/25 15:00 23:00 07:00 Intake Total 501.628 ml 286 ml 917.9 ml Output Total 625 ml 300 ml Balance 501.628 ml -339 ml 617.9 ml medications Current Medications Medications Dose Ordered Sig/Serenity Route Start Time Stop Time Status Last Admin Dose Admin Midazolam HCl 50 ml @ 1 mls/hr Q24H IV 01/29/25 14:15 01/29/25 15:56 5 MLS/HR Phenylephrine HCl 250 ml @ 30 mls/hr Q8H20M IV 01/29/25 19:30 01/30/25 01:39 116.25 MLS/HR Levalbuterol HCl 0.625 mg Q4HR PRN NEB 01/29/25 20:00 02/19/25 06:23 0.625 MG Ipratropium [place] 0.5 mg Q4HPRN PRN NEB 01/29/25 20:00 02/19/25 06:23 0.5 MG Epinephrine HCl 250 ml @ 7.5 mls/hr Q24H IV 01/30/25 00:15 Vasopressin 20 units/Sodium Chloride 100 ml @ 9 mls/hr Q11H7M IV 01/30/25 07:30 02/03/25 13:09 9 MLS/HR Amino Acids 0 ml @ 0 mls/hr PER PHARMACY IV 02/01/25 11:15 Diagnostic Test (Pha) 1 strip Q6HR 02/01/25 18:00 02/19/25 06:00 1 STRIP Insulin Human Regular FOLLOW SLIDING SCALE Q6HR SC 02/01/25 18:00 02/18/25 06:16 2 UNITS Dextrose 50 ml UD IV 02/01/25 12:30 Vancomycin HCl 0 ml @ 0 mls/hr UD IV 02/04/25 09:00 Sodium Chloride 10 ml QSHIFT@10,22 IV 02/04/25 22:00 02/19/25 10:05 10 ML Neomycin/ Polymyxin/ Bacitracin 1 applic DAILY TOP 02/06/25 10:00 02/19/25 10:05 1 APPLIC Bumetanide 2 mg BIDD IV 02/06/25 18:00 02/19/25 06:16 2 MG Norepinephrine Bitartrate 250 ml @ 0.938 mls/ hr Q24H IV 02/07/25 11:30 02/19/25 01:24 0.938 MLS/HR Artificial Tears 1 drop Q4HP PRN EACHEYE 02/08/25 07:30 Pantoprazole Sodium 40 mg Q12HR IV 02/08/25 22:00 02/19/25 10:05 40 MG Enteral Nutritional Formula 1,000 ml 20 NG 02/11/25 23:15 02/12/25 09:15 1,000 ML Epoetin Gunnar-epbx 8,000 unit MWF@2100 SC 02/17/25 21:00 02/17/25 21:07 8,000 UNIT Fat Emulsion Intravenous 50 ml/ Sodium Chloride 100 meq/Magnesium Sulfate 2 meq/ Multivitamins 10 ml/Amino Acids/ Dextrose 1,435.5 ml @ 60 mls/hr [id number] IV 02/18/25 22:00 02/19/25 21:59 Midodrine 2.5 mg BIDD PO 02/18/25 19:30 02/19/25 06:16 2.5 MG Dextrose/Sodium Chloride 1,000 ml @ 50 mls/hr Q20H IV 02/18/25 21:45 02/18/25 21:45 50 MLS/HR Fat Emulsion Intravenous 50 ml/ Sodium Chloride 100 meq/ Multivitamins 10 ml/Amino Acids/ Dextrose 1,435 ml @ 60 mls/hr [id number] IV 02/19/25 22:00 02/20/25 21:59 laboratory and microbiology Laboratory Tests 02/19/25 09:01 02/19/25 03:30 Test 02/19/25 03:30 Range/Units Serum Glucose 79 74-106 mg/dL Assessment/Plan Still in ICU. On vent support. No gross higher brain reflexes. Pupils are dilated and fixed. Anoxic/Hypoxic Encephalopathy No reported arrhythmia overnight s/p Tracheostomy Back on low dose Levophed To tentatively go for PEG today Echocardiogram revealed no WMA and also revealed good EF. It also revealed increased Pulmonary Artery Pressure in favor of component of Pulmonary Hypertension. s/p Hemodialysis Received blood and platelet transfusion repeatedly Patient is a 24-year-old gentleman who was originally brought to the hospital for post arrest. Patient is seen in postop area. Patient is intubated and on multiple pressor supports. Patient is not source of history. Information was obtained by reviewing the chart, talking to patient's family/mother and communicating with staff and reviewing outside records ([facility]). Patient did have elective outpatient laparoscopic cholecystectomy in [facility] on January 28 2025. As per mother, after going home, patient was feeling very hungry and was eating and drinking a lot. He started feeling abdominal pain with nausea at night and in the morning was short of breath. As per mother: patient has stopped breathing in the morning and family called 911. As per mother, as per guidance of 911, family started CPR until EMS arrived. Patient was intubated and was brought to the hospital by EMS. Since arrival to [facility], patient was seen by surgeon who took the patient to operating room and performed laparotomy (there was hepatic hematoma). Postoperatively, the patient has remained hypotensive. There is signs for multiorgan involvement. Patient was not alert and did not complain of any chest pains. Labs revealed increased troponin. Cardiology is involved for cardiac aspects of care and abnormal troponin. First available EKG reveals sinus tachycardia with no specific ST-T changes. Telemetry had revealed sinus tachycardia throughout the stay. Patient is found to have significant anemia and is receiving blood transfusion at the time of evaluation. It is of note that at the time of evaluation patient does not have any reflexes. Intubated. Mucosa pale. Dilated and fixed pupils, Scattered rhonchi in the lungs. Cardiac: Tachycardic. No murmur. Abdomen is covered by dressing. Extremities do not reveal any edema. Dorsalis pedis is 1+ bilateral. Patient does not respond to any stimuli. Reported past medical history includes asthma and obesity. Reportedly, on January 23, 2025: Patient presented to [facility] for abdominal pain/nausea/vomiting. At that point the problems were ongoing for few weeks. In [facility], CT of the abdomen and MRCP were performed. Patient was seen by GI/surgery. Patient was found to have gallstones. Patient was discharged and later on January 28, 2025 presented back to [facility] for elective laparoscopy cholecystectomy. Patient was discharged home from [facility] after laparoscopic cholecystectomy. As per mother, patient does not have baseline history of any cardiac history. As per mother, patient was using marijuana. Mother denies any previous substance abuse besides marijuana. No specific family history is reported On January 23, 2025, labs in [facility] revealed creatinine of 0.84, hemoglobin of 15.2 and troponin (high sensitive) of <3. At that point EKG was normal WBC: 20.1 - 19.0 - 22.7 - 20.6 - 28.4 - 20.3 - 21.0 - 25.2 - 29.8 - 29.5 - 29.0 - 26.2 - 21.7 - 19.7 - 17.7 - 15.3 - 12.2 - 10.5 - 11.2 - 13.0 - 10.7 - 9.0 - 9.0 - 10.3 - 10.3 - 10.1 - 11.0 - 12.4 - 13.0 Hemoglobin: 8.3 - 6.5 - 12.1 - 11.1 - 12.1 - 9.3 - 9.2 - 9.1 - 8.4 - 9.0 - 9.5 - 8.8 - 8.4 - 8.0 - 9.7 - 9.6 - 9.8 - 9.6 - 9.7 - 9.8 - 9.1 - 8.5 - 8.8 - 8.9 - 8.7 - 8.8 - 9.7 - 9.1 - 7.9 Fibrinogen: 108 - 316 - 537 - 689 - >860 Creatinine: 4.02 - 3.78 - 3.90 - 3.95 - 4.34 - 5.44 - 6.05 - 6.73 - 7.31 - 7.77 - 6.64 - 7.30 - 4.91 - 5.32 - 7.40 - 5.98 - 7.66 - 6.28 - 7.71 - 8.67 - 6.87 - 5.62 - 7.59 - 8.95 - 7.51 - 9.04 - 6.23 - 7.09 - 5.33 - 6.90 Potassium: 5.6 - 4.6 - 4.8 - 3.9 - 2.9 - 2.9 - 3.6 - 3.8 - 4.9 - 5.4 - 6.0 - 5.1 - 5.3 - 6.1 - 6.0 - 4.6 - 4.4 - 4.3 - 3.5 - 3.4 - 3.7 - 4.5 - 5.7 - 5.2 - 4.0 - 3.8 - 4.1 - 4.5 - 4.9 - 4.7 - 4.6 - 4.4 - 4.6 AST/ALT: 676/700 - 2327/6 - 4636/2521 - -/1996 - 2500/1989 - 1780/1821 - 808/995 - 586/735 - 456/444 - 312/290 - 237/163 - 215/125 - 190/87 - 200/74 - 202/66 - 189/53 - 186/44 - 186/45 - 192/38 - 193/34 - 214/34 - 195/30 - 261/42 - 241/47 - 246/63 Lactic acid: 17.9 - 17.2 - 11.4 Troponin (high sensitive): 2973 - 2712 - 4364 - 7493 - 7476 TSH: 11.05 Urine Toxicology: positive for Fentanyl and Benzodiazepine Chest x-ray revealed: Lines and Tubes: Endotracheal tube projects 2.2 cm above the meghan. Right internal jugular central venous catheter tip projects over superior vena cava. Lungs: No focal consolidation. Low lung volumes. Pleura: No effusion. No pneumothorax. Cardiomediastinal contours: Unremarkable Bones: No acute osseous abnormality. IMPRESSION: Lines and tubes as above. Low lung volumes. Repeat chest x-ray revealed: IMPRESSION: Lines and tubes in satisfactory position. Mild increased pulmonary vascular congestion Repeat chest xry revealed: IMPRESSION: Lines and tubes in satisfactory position. Mild increased pulmonary vascular congestion Repeat chest xry revealed: IMPRESSION: 1. Low lung volumes with concomitant crowding of the pulmonary vasculature. 2. No evidence of focal consolidation. 3. Lines and tubes unchanged. Repeat chest xry revealed: IMPRESSION: 1. Slight interval retraction of the endotracheal tube such that the tip now projects approximately 4.7 cm above the level of the meghan. Remaining lines and tubes unchanged. 2. Otherwise no significant change compared to prior exam. Repeat chest xry revealed: IMPRESSION: 1. Slight interval advancement of endotracheal tube such that the tip now projects approximately 1.7 cm above the level of the meghan. Remaining lines and tubes unchanged. 2. Otherwise no significant change compared to prior exam. Repeat chest xry revealed: IMPRESSION: 1. Slight interval retraction of the endotracheal tube such that the tip now projects approximately 3.3 cm above the level of the meghan. Remaining lines and tubes unchanged. 2. No evidence of acute cardiopulmonary process. Repeat chest xry revealed: IMPRESSION: 1. Endotracheal tube in appropriate position. Remaining lines and tubes unchanged. 2. No evidence of acute cardiopulmonary process. Repeat chest xry revealed: IMPRESSION: 1. Small right pleural effusion. 2. Lines and tubes unchanged. Repeat chest xry revealed: IMPRESSION: 1. Small right pleural effusion. 2. Lines and tubes unchanged. Repeat chest xry revealed: IMPRESSION: 1. Small bilateral pleural effusions. 2. Lines and tubes unchanged. Repeat chest xry revealed: IMPRESSION: 1. Slight interval advancement of the endotracheal tube. Remaining lines and tubes unchanged. 2. No evidence of acute cardiopulmonary process. Repeat chest xry revealed: IMPRESSION: 1. Slight interval retraction of the endotracheal tube such that the tip now projects approximately 3.3 cm above the level of the meghan. Remaining lines and tubes unchanged. 2. No evidence of acute cardiopulmonary process. Repeat chest xry revealed: Bowel gas pattern is unremarkable. Enteric tube tip projects over the expected region of the stomach. The lung bases demonstrates bibasilar atelectasis. The lower pelvis is collimated from field of view. No acute osseous abnormality identified. Repeat chest xry revealed: Lines and Tubes: Endotracheal tube tip projects approximately 5.1 cm above the level of the meghan. Enteric catheter terminates within the gastric lumen. Right peripherally inserted central catheter tip and left subclavian central venous catheter tip project over the distal superior vena cava. Lungs: Clear Pleura: No effusion. No pneumothorax. Cardiomediastinal contours: Unremarkable Bones: Unremarkable IMPRESSION: 1. No radiographic evidence of acute cardiopulmonary abnormality. 2. Lines and tubes as above. Repeat chest xry revealed: IMPRESSION: 1. Stable position of the support lines and tubes. 2. Bibasilar airspace disease which may reflect atelectasis and/or pneumonia. Possible small bilateral pleural effusions. Repeat chest xry revealed: IMPRESSION: 1. Lines and tubes unchanged. 2. Persistently diminished lung volumes with concomitant exaggeration of the pulmonary vasculature. No evidence of acute cardiopulmonary process. Repeat chest xry revealed: IMPRESSION: 1. No acute cardiopulmonary disease. 2. Lines and tubes as above. Repeat chest xry revealed: IMPRESSION: 1. Intervally placed right IJ catheter projects in appropriate remaining support devices are stable.2. No other significant change from the previous study. Persistent low lung volumes with vascular crowding and basilar atelectasis. Repeat chest xry revealed: IMPRESSION: Heart is stable in size. There are low lung volumes with probable small left pleural effusion and bibasilar atelectasis. Support lines and tubes appear unchanged in satisfactory position. No pneumothorax. No significant interval change. Repeat chest xry revealed: IMPRESSION: Unchanged bibasilar opacities, likely atelectasis with small pleural effusions Repeat chest xry revealed: IMPRESSION: 1. No significant change from the previous study. Stable support devices. Persistent left pleural effusion and bibasilar airspace disease. Brain scan revealed: FINDINGS: Absence of cerebral blood flow is noted along with no brain parenchymal radiotracer uptake. Increased activity is seen in the central face likely representing vascular shunting consistent with the so-called "hot nose" sign. Findings suggest brain however clinical correlation is necessary. IMPRESSION: Findings described above, which would be consistent with brain in the appropriate clinical setting, however clinical correlation is needed. CT of the chest/abdomen/pelvis revealed: IMPRESSION: 1. Hepatic hematoma measuring up to approximately 8.6 cm in greatest dimension, as described above, with hemorrhage extending beyond the liver capsule and into the right pericolic gutter as well as into the pelvis. No definite active arterial bleeding is seen on this exam, although limited evaluation due to the timing of contrast, as this was not a CTA exam. 2. Postsurgical changes of cholecystectomy. 3. Dilated fluid-filled small bowel loops, may be due to postoperative ileus. No small bowel obstruction. 4. Small volume pneumoperitoneum, likely due to recent surgery. Small volume of gas are seen in the upper ventral abdomen from the recent surgery. 5. Dependent atelectasis in the lower lobes. Otherwise, no acute disease in the chest. 6. Endotracheal tube and enteric tube in place. 7. Atrophic right kidney incidentally noted. 8. Additional findings as described above. Critical findings Critical Result: Acute hepatic hematoma with hemorrhage extending beyond the liver capsule into the adjacent portions of the abdomen and into the pelvis as detailed above. Repeat CT of chest/abdomen/pelvis revealed: There is limited interpretation of the chest, abdomen and pelvis without administration of intravenous contrast. Endotracheal tube tip terminates just at the meghan / left main bronchus. Diffuse bilateral pulmonary airspace consolidation bilaterally significantly increased. Bilateral lower lobe lobar consolidation/ atelectasis, increased from prior. Small bilateral pleural effusions. There is extensive edema/ stranding within the upper anterior chest, neck region/supraclavicular region. There is some hyperdensity within this region which could represent components of hematoma / blood products. Heterogeneous appearance of the thyroid gland. Right IJ catheter terminating at the cavoatrial junction. Adrenal glands unremarkable in shape. Perisplenic hematoma. Interval postsurgical changes in the right upper quadrant of the abdomen. There appears to be surgicel/gaseous collection within the previous hematoma cavity, likely representing surgicel. There is a radiopaque density within the resection cavity as well which measures 6.2 x 4.6 cm.. Postoperative changes of the right anterior abdomen with soft tissue emphysema. Small amount of pneumoperitoneum Surgical drainage catheter terminating in the right upper quadrant of the abdomen Right renal parenchymal atrophy. Left kidney demonstrates perinephric edema / stranding. No left hydronephrosis. Nasogastric tube projects towards the distal stomach. Moderate distention small bowel loops. Rectal catheter. Moderate distention of the large bowel loops. Normal appendix. Abdominal aorta normal in caliber. Small amount of ascites fluid/ mesenteric edema. Bladder decompressed by Mora catheter. Soft tissue edema /anasarca. Mesenteric edema. Small amount of ascites fluid. The osseous structures are stable. IMPRESSION: Limited evaluation without contrast. Interval evacuation of the right upper quadrant hematoma. Surgicel within the resection cavity. No significant interval development of new hematoma. There are 2 radiopaque lap pads within the resection cavity . Findings reviewed with Dr. Ledesma at 11:51 a.m. on 01/30/2025 Perisplenic hematoma, similar to previous examination. Extensive bilateral pulmonary airspace consolidation, significantly increased from previous examination. Small bilateral pleural effusions. Right upper quadrant drainage catheter. Pneumoperitoneum. Soft tissue edema / anasarca. Small amount of ascites fluid/ mesenteric edema. Extensive edema within the anterior chest, neck region. Heterogeneous appearance thyroid gland. Other findings as described. CT of the head revealed: IMPRESSION: 1. No evidence of acute intracranial abnormality. Repeat CT of head revealed: FINDINGS: Cerebellar tonsilar herniation. There is sulcal and ventricular effacement. The basal cisterns are effaced. Loss of mario-white matter differentiation is noted. The skull and visible facial bones are intact. The paranasal sinuses, mastoid air cells and middle ear cavities are well-aerated. The soft tissues of the scalp are unremarkable. IMPRESSION: Diffuse cerebral edema with cerebellar tonsillar herniation. Recommend MRI brain for further evaluation. Repeat CT of head revealed: FINDINGS: There is diffuse low attenuation throughout the brain with increased effacement of the ventricles and complete sulcal effacement. There is cerebellar tonsillar herniation. The orbits are normal. There is moderate mucosal thickening within the paranasal sinuses and mastoid air cells. The soft tissues and osseous structures appear within normal limits. IMPRESSION: 1. Findings as above suggesting worsening diffuse cerebral edema in the setting of anoxic brain injury in the given clinical setting. Further clinical correlation is suggested. CT of Neck revealed: IMPRESSION: Limited evaluation without contrast. Extensive soft tissue edema within the neck extending into the anterior / upper chest and anterior mediastinum . Retropharyngeal edema. Heterogeneous appearance of the thyroid gland. Inferior cerebellar tonsillar herniation better seen on the prior CT Renal Ultrasound revealed: IMPRESSION: 1. Right kidney not visible. 2. Left kidney is enlarged. 3. No hydronephrosis. Venous duplex of lower ext revealed: IMPRESSION: NO SONOGRAPHIC EVIDENCE FOR DEEP VENOUS THROMBOSIS IN THE RIGHT LOWER EXTREMITY VEINS. Repeat (bilateral) Venous duplex of lower ext revealed: Impression: 1. No right or left femoropopliteal venous thrombosis. EEG reported: This is a remarkably abnormal EEG, this EEG seen in severe cerebral dysfunction due to metabolic/hypoxic encephalopathy or medication effects, unless this is caused by reversible etiology, this EEG is suggestive of a poor prognosis for meaningful recovery, please correlate clinically. Arrival EKG revealed sinus tachycardia with nonspecific ST-T changes Tele reveals sinus tachycardia Echocardiogram revealed: Technically limited study secondary to poor acoustic windows. Left ventricle: Left ventricle was normal-sized with normal systolic function. LVEF was 55-60%. No gross wall motion abnormality was seen. Right ventricle was mildly dilated with normal systolic function. Left atrium was normal-sized. Right atrium was mildly dilated. Aortic valve: Aortic valve was not well visualized. There was no aortic insufficiency/stenosis. There was no mitral regurgitation. There was trace tricuspid regurgitation. Pulmonary valve was not well visualized. IVC was not visualized. Right ventricular systolic pressure was assessed around 48 mm Hg. There was no pericardial effusion. Patient is a 24-year-old gentleman who presented with post arrest. It seems that the patient had hemorrhagic (intra-abdominal) presentation. Patient did have elective laparoscopic cholecystectomy the day before presentation. On the day of presentation, the patient was taken back to operating room and this time Laparotomy was done for hepatic hematoma. Patient does have multiorgan involvement. Clinically there is no brainstem reflexes. Shock liver/acute renal failure is considered. Troponin has been high. EKG did not reveal any STEMI. Presentation could be high troponin secondary to demand physiology. Patient does not have any risk factors for baseline coronary artery disease. In ideal scenario, ischemic workup/cardiac catheterization could be more revealing. Unfortunately, the patient does have acute renal failure which could be worsened by cardiac catheterization at this point. As there was no higher brain functions the suggestion is to wait and see if patient regains any higher brain function. It is of note that during cardiac catheterization, the patient may need some anticoagulation/antiplatelets. At this point patient is having significant anemia/bleeding and receiving blood transfusion and holding off of scenario forcing Anticoagulation/antiplatelets is advised. I had a long discussion with family members and Mother (repeatedly). Clinically patient has multiorgan failure. Secondary to active bleeding, we will avoid anticoagulation/antiplatelets for now. Being managed in ICU. Was taken to OR repeatedly. Still no reflexes. Echocardiogram revealed no WMA and also revealed good EF. It also revealed increased Pulmonary Artery Pressure in favor of component of Pulmonary Hypertension. Review of Echo images revealed good right ventricular systolic function. Not typical for Pulmonary Emboli. Still, PE cannot be ruled out. If PE is ruled out, then it is possible that patient had Pulmonary Hypertension from before (Baseline history of Asthma may actually reflect it). s/p PRBC transfusion (multiple). Being followed by Surgery, Nephrology, Hematology, Pulmonary, Neurology and GI. . Repeat imaging revealed cerebellar tonsillar herniation. Neurology diagnosed Hypoxic/Metabolic Encephalopathy also. EEG findings question meaningful recovery. Neurology declared patient: brain . Neurology second opinion was in favor of Anoxic/Hypoxic Encephalopathy. Repeat imaging of brain revealed worsening diffuse cerebral edema and also again revealed cerebellar tonsillar herniation. Family are contemplating Trach/PEG. Patient is seen by GI. s/p Tracheostomy s/ p Arrest Intra-abdominal bleeding Hepatic hematoma Multiorgan failure, due to shock Shock liver Lactic Acidosis Acute renal failure Acute respiratory failure, on vent support Status post laparotomy Status post laparoscopic cholecystectomy Abnormal troponin, evaluated to reflect possible demand physiology History of gallstones History of asthma Obesity History of marijuana abuse Consumptive Coagulopathy / DIC Pulmonary Hypertension Cerebellar tonsillar Herniation. Encephalopathy, hypoxic/metabolic Renal failure, started on hemodialysis Brain scan questions brain Anoxic Encephalopathy s/p Tracheostomy Cardiac suggestion for management: Manage in ICU Follow-up electrolytes and kidney function tests and correct abnormalities Evaluation and management of respiratory failure as per Pulmonary Evaluation and management of Cerebellar tonsillar herniation and worsening cerebral edema as per Neurology/surgery/primary team V/Q scan could not be completed Anoxic/Hypoxic Encephalopathy Echocardiogram revealed no WMA and also revealed good EF. It also revealed increased Pulmonary Artery Pressure in favor of component of Pulmonary Hypertension. Hematology follow up (to comment on prophylaxis / treatment of Pulmonary Emboli) Surgical follow up Nephrology follow up (started on hemodialysis) and Hematology follow up Patient is seen by GI Cardiac vidales, moderate risk patient for PEG placement. Avoid Hypotension. DVT prophylaxis as per primary team (compression stocking Vs Lovenox..) Long-term prognosis depends on the above and most importantly regaining of the higher brain function: looks very grim Ischemic workup may be considered only after regaining higher brain function or any special change in clinical presentation Further evaluation and management depends on the above and clinical course A total of 75 minutes was spent reviewing the patient record, examining the patient, making a diagnostic and therapeutic plan, discussing this plan with medical personnel, following up on diagnostic studies and following the patient for clinical stability excluding any and all procedures. At least 50% of this time was spent in direct, mamm-ye-afxt contact. Thank you for allowing me to participate in this patient's care. Further recommendations will depend on patient's clinical course. Please do not hesitate to contact me if you have any questions or concerns. This medical document was created using electronic medical record system with MModal computerized dictation system. Although this document has been carefully reviewed, there may still be some phonetic and typographical errors. These areas are purely typographical due to the imperfection of the software programs, and do not reflect any compromise in the patient's medical care. Dietary Evaluation Review Recommendations by RD: PPN/TPN Comments: 1) Increase TPN rate to meet at least 75% of estimated daily needs 2) Advance to renal cardiac diet when medically feasible, pending ST approval 3) Follow-up with cardiology, pulmonology, nephrology, neurology, and gastroenterology 4) Continue to monitor I&O, labs, and skin integrity Expected Outcomes/Goals: 1) nutritional support to meet at least 75% of estimated daily needs 2) labs and wound to improve 3) diet to advance 4) gradual wt loss 5) f/u in 2-3 days Plan discussed with: Other (nurse) KATHLEEN COHEN MD Feb 19, 2025 11:14
--- NOTE | 2025-02-19 11:15 | DVHPN2 ---
Progress Note Date Seen: Feb 19, 2025 Has the PT tested + for MRSA If YES, has PT been informed?: No Medical Necessity Reason Pt with a Central, PICC or Fol: Yes The following are medically ne: Mora Catheter Reason for mora catheter: Nakul. Abd Surgery, Strict I&O, Total Immobilization Subjective Review of Systems: RESPIRATORY:Abnormal Other Systems: Patient seen and examined by myself today in follow-up, patient trached on ventilator Patient examined hemodialysis, blood pressure stable Objective vital signs Vital Sign Date Time Temp Pulse Resp B/P (MAP) Pulse Ox O2 Delivery O2 Flow Rate FiO2 02/19/25 11:00 97.3 75 12 97/57 (70) 100 207.1 02/19/25 10:00 40 02/19/25 10:00 Mechanical Ventilator+ Total Intake and Output 02/18/25 02/18/25 02/19/25 15:00 23:00 07:00 Intake Total 501.628 ml 286 ml 917.9 ml Output Total 625 ml 300 ml Balance 501.628 ml -339 ml 617.9 ml medications Current Medications Medications Dose Ordered Sig/Serenity Route Start Time Stop Time Status Last Admin Dose Admin Midazolam HCl 50 ml @ 1 mls/hr Q24H IV 01/29/25 14:15 01/29/25 15:56 5 MLS/HR Phenylephrine HCl 250 ml @ 30 mls/hr Q8H20M IV 01/29/25 19:30 01/30/25 01:39 116.25 MLS/HR Levalbuterol HCl 0.625 mg Q4HR PRN NEB 01/29/25 20:00 02/19/25 06:23 0.625 MG Ipratropium [place] 0.5 mg Q4HPRN PRN NEB 01/29/25 20:00 02/19/25 06:23 0.5 MG Epinephrine HCl 250 ml @ 7.5 mls/hr Q24H IV 01/30/25 00:15 Vasopressin 20 units/Sodium Chloride 100 ml @ 9 mls/hr Q11H7M IV 01/30/25 07:30 02/03/25 13:09 9 MLS/HR Amino Acids 0 ml @ 0 mls/hr PER PHARMACY IV 02/01/25 11:15 Diagnostic Test (Pha) 1 strip Q6HR 02/01/25 18:00 02/19/25 06:00 1 STRIP Insulin Human Regular FOLLOW SLIDING SCALE Q6HR SC 02/01/25 18:00 02/18/25 06:16 2 UNITS Dextrose 50 ml UD IV 02/01/25 12:30 Vancomycin HCl 0 ml @ 0 mls/hr UD IV 02/04/25 09:00 Sodium Chloride 10 ml QSHIFT@10,22 IV 02/04/25 22:00 02/19/25 10:05 10 ML Neomycin/ Polymyxin/ Bacitracin 1 applic DAILY TOP 02/06/25 10:00 02/19/25 10:05 1 APPLIC Bumetanide 2 mg BIDD IV 02/06/25 18:00 02/19/25 06:16 2 MG Norepinephrine Bitartrate 250 ml @ 0.938 mls/ hr Q24H IV 02/07/25 11:30 02/19/25 01:24 0.938 MLS/HR Artificial Tears 1 drop Q4HP PRN EACHEYE 02/08/25 07:30 Pantoprazole Sodium 40 mg Q12HR IV 02/08/25 22:00 02/19/25 10:05 40 MG Enteral Nutritional Formula 1,000 ml 20 NG 02/11/25 23:15 02/12/25 09:15 1,000 ML Epoetin Gunnar-epbx 8,000 unit MWF@2100 NE 02/17/25 21:00 02/17/25 21:07 8,000 UNIT Fat Emulsion Intravenous 50 ml/ Sodium Chloride 100 meq/Magnesium Sulfate 2 meq/ Multivitamins 10 ml/Amino Acids/ Dextrose 1,435.5 ml @ 60 mls/hr [id number] IV 02/18/25 22:00 02/19/25 21:59 Midodrine 2.5 mg BIDD PO 02/18/25 19:30 02/19/25 06:16 2.5 MG Dextrose/Sodium Chloride 1,000 ml @ 50 mls/hr Q20H IV 02/18/25 21:45 02/18/25 21:45 50 MLS/HR Fat Emulsion Intravenous 50 ml/ Sodium Chloride 100 meq/ Multivitamins 10 ml/Amino Acids/ Dextrose 1,435 ml @ 60 mls/hr [id number] IV 02/19/25 22:00 02/20/25 21:59 Examination: LUNGS:Normal, CVS:Normal, MSK:Abnormal laboratory and microbiology Laboratory Tests 02/19/25 09:01 02/19/25 03:30 Test 02/19/25 03:30 Range/Units Serum Glucose 79 74-106 mg/dL Microbiology Date/Time Source Procedure Growth Status 02/09/25 03:40 Blood Blood Culture - Final NO GROWTH AFTER 5 DAYS OF INCUBATION. Complete 02/02/25 22:00 Urine - [place] Urine Culture - Final Complete 01/30/25 00:00 Nose MRSA Screen - Final Complete 01/29/25 10:43 Sputum Gram Stain - Final Complete 01/29/25 10:43 Sputum Respiratory Culture - Final Complete Problem List/Assessment/Plan Problem List/Assessment/Plan Acute kidney injury likely ischemic ATN in the setting of shock, FeNa > 2%, nonoliguric Acute respiratory failure, intubated on ventilator Status post cardiac arrest Anoxic encephalopathy Hyperkalemia secondary to above Metabolic acidosis anion gap secondary to lactic acidosis secondary to reduced perfusion from hemorrhage Hemodynamic shock from bleeding Acute blood loss anemia/post op Status post laparoscopic cholecystectomy on 01/28/25 [facility] Status post ex lap, 01/29 Positive troponins NSTEMI--likely demand ischemia Shock liver Vitamin-D deficiency Recommendations Continue with dialysis minimal UF 0-1 L as tolerated Epogen 44850 subQ 3 times weekly Increased urine output Mora catheter strict I&Os Vitamin-D replacement Packed red blood cell transfusion p.r.n. IV antibiotics IV pressors for blood pressure support Noted plan for surgery after dialysis today We will continue to follow . Total care time 30 minutes I discussed my plan of care with mother and the primary nurse at the bedside Plan discussed with: Other (Nurse) My Orders My Orders Orders - FELICIANO KHAN MD Procedure Category Date Status Time Albumin 25% (Albutein) PHA 02/19/25 In Process 10:45 Albumin Ivpb PHA 02/19/25 Transmitted 11:15 Dietary Evaluation Review Recommendations by RD: PPN/TPN Comments: 1) Increase TPN rate to meet at least 75% of estimated daily needs 2) Advance to renal cardiac diet when medically feasible, pending ST approval 3) Follow-up with cardiology, pulmonology, nephrology, neurology, and gastroenterology 4) Continue to monitor I&O, labs, and skin integrity Expected Outcomes/Goals: 1) nutritional support to meet at least 75% of estimated daily needs 2) labs and wound to improve 3) diet to advance 4) gradual wt loss 5) f/u in 2-3 days FELICIANO KHAN MD Feb 19, 2025 11:15
[2025-02-19] MEDS ORDERED: PIPERACILLIN-TAZOB 2.25GM 50 ML IV SCH (12:15)
[2025-02-19] MEDS: VANCOMYCIN 500mg/100mL 100 ML IV ONE (12:58)
[2025-02-19] MEDS: SODIUM CHL 0.9% 1000 ML BAG XX ONE (14:23)
[2025-02-19] MEDS: PIPERACILLIN-TAZOB 3.375GM 100 ML IV ONE (14:23)
[2025-02-19] MEDS: MIDODRINE HCL 10 MG TAB PO SCH ×2 (14:52→17:36)
[2025-02-19 15:31] LABS: Hemoglobin 8.2 g/dL (13.5-17.5)
[2025-02-19 15:32] LABS: Hematocrit 24.8 % (41.0-53.0); Mean Corpuscular Hemoglobin 28.8 pg (28.0-32.0); Mean Corpuscular Volume 87.6 fL (80.0-100.0)
[2025-02-19 15:33] LABS: Chloride 99 mmol/L (98-107); Potassium 3.7 mmol/L (3.5-5.1); Sodium 140 mmol/L (136-145)
[2025-02-19 15:34] LABS: Anion Gap 15 (5-15); Calcium 8.5 mg/dL (8.7-10.4); Carbon Dioxide 26 mmol/L (20-31)
[2025-02-19 15:39] LABS: BUN/Creatinine Ratio 13.3 (10.0-20.0)
[2025-02-19 15:44] LABS: Blood Urea Nitrogen 66 mg/dL (9-23); Glucose 70 mg/dL (74-106)
[2025-02-19 16:45] LABS: Total Cells Counted 100.0 (100)
[2025-02-19 17:09] LABS: Hepatitis A Total Antibody Positive (Negative); Hepatitis B Surface Antigen Negative (Negative); Hepatitis C Antibody Negative (Negative)
--- NOTE | 2025-02-19 17:26 | DVHPNRES ---
Progress Note Date Seen: Feb 19, 2025 Resident Creating Document: ARNOLD MUHAMMAD RESZENENT Has the PT tested + for MRSA If YES, has PT been informed?: No Medical Necessity Reason Pt with a Central, PICC or Fol: Yes The following are medically ne: Mora Catheter Reason for mora catheter: Nakul. Abd Surgery, Strict I&O, Total Immobilization Subjective Review of Systems Patient seen and examined at the bedside. Patient is on mechanical ventilation, off from sedation. Objective vital signs Vital Sign Date Time Temp Pulse Resp B/P (MAP) Pulse Ox O2 Delivery O2 Flow Rate FiO2 02/19/25 16:55 97.2 71 12 103/59 97.2 02/19/25 16:45 100 02/19/25 16:00 40 02/19/25 16:00 Mechanical Ventilator+ Total Intake and Output 02/18/25 02/18/25 02/19/25 14:59 22:59 06:59 Intake Total 502.566 ml 298 ml 915.1 ml Output Total 625 ml 300 ml Balance 502.566 ml -327 ml 615.1 ml medications Current Medications Medications Dose Ordered Sig/Serenity Route Start Time Stop Time Status Last Admin Dose Admin Midazolam HCl 50 ml @ 1 mls/hr Q24H IV 01/29/25 14:15 01/29/25 15:56 5 MLS/HR Phenylephrine HCl 250 ml @ 30 mls/hr Q8H20M IV 01/29/25 19:30 01/30/25 01:39 116.25 MLS/HR Levalbuterol HCl 0.625 mg Q4HR PRN NEB 01/29/25 20:00 02/19/25 06:23 0.625 MG Ipratropium [place] 0.5 mg Q4HPRN PRN NEB 01/29/25 20:00 02/19/25 06:23 0.5 MG Epinephrine HCl 250 ml @ 7.5 mls/hr Q24H IV 01/30/25 00:15 Vasopressin 20 units/Sodium Chloride 100 ml @ 9 mls/hr Q11H7M IV 01/30/25 07:30 02/03/25 13:09 9 MLS/HR Amino Acids 0 ml @ 0 mls/hr PER PHARMACY IV 02/01/25 11:15 Diagnostic Test (Pha) 1 strip Q6HR 02/01/25 18:00 02/19/25 12:11 1 STRIP Insulin Human Regular FOLLOW SLIDING SCALE Q6HR SC 02/01/25 18:00 02/18/25 06:16 2 UNITS Dextrose 50 ml UD IV 02/01/25 12:30 Vancomycin HCl 0 ml @ 0 mls/hr UD IV 02/04/25 09:00 Sodium Chloride 10 ml QSHIFT@10,22 IV 02/04/25 22:00 02/19/25 10:05 10 ML Neomycin/ Polymyxin/ Bacitracin 1 applic DAILY TOP 02/06/25 10:00 02/19/25 10:05 1 APPLIC Bumetanide 2 mg BIDD IV 02/06/25 18:00 02/19/25 06:16 2 MG Norepinephrine Bitartrate 250 ml @ 0.938 mls/ hr Q24H IV 02/07/25 11:30 02/19/25 01:24 0.938 MLS/HR Artificial Tears 1 drop Q4HP PRN EACHEYE 02/08/25 07:30 Pantoprazole Sodium 40 mg Q12HR IV 02/08/25 22:00 02/19/25 10:05 40 MG Enteral Nutritional Formula 1,000 ml 20 NG 02/11/25 23:15 02/12/25 09:15 1,000 ML Epoetin Fiona-epbx 8,000 unit MWF@2100 [place] 02/17/25 21:00 Hold 02/17/25 21:07 8,000 UNIT Fat Emulsion Intravenous 50 ml/ Sodium Chloride 100 meq/Magnesium Sulfate 2 meq/ Multivitamins 10 ml/Amino Acids/ Dextrose 1,435.5 ml @ 60 mls/hr [id number] IV 02/18/25 22:00 02/19/25 21:59 Dextrose/Sodium Chloride 1,000 ml @ 50 mls/hr Q20H IV 02/18/25 21:45 02/19/25 14:52 50 MLS/HR Fat Emulsion Intravenous 50 ml/ Sodium Chloride 100 meq/ Multivitamins 10 ml/Amino Acids/ Dextrose 1,435 ml @ 60 mls/hr [id number] IV 02/19/25 22:00 02/20/25 21:59 Piperacillin Sod/ Tazobactam Sod 100 ml @ 25 mls/hr Q12HR IV 02/19/25 22:00 Midodrine 2.5 mg TID@0600,1200,1800 PO 02/19/25 14:20 02/19/25 14:52 2.5 MG Examination General: RASS -5, afebrile, mucosae are moist Cardiovascular: Normal S1 and S2. No murmurs, gallops or rubs Respiratory: Mechanically assisted ventilation, equal bilateral airway entree. Clear lung sounds on auscultation Abdomen: Soft, nontender, no organomegaly, with surgical wound on abdomin MSK/skin: Mobilization of limbs cannot be evaluated. Skin is dry and warm. Neurological: Orientation cannot be assessed. Pupils are dilated and nonreactive to light, absent brainstem reflexes laboratory and microbiology Laboratory Tests 02/19/25 14:50 Test 02/19/25 14:50 Range/Units Serum Glucose 70 L 74-106 mg/dL Microbiology Date/Time Source Procedure Growth Status 02/09/25 03:40 Blood Blood Culture - Final NO GROWTH AFTER 5 DAYS OF INCUBATION. Complete 02/02/25 22:00 Urine - [place] Urine Culture - Final Complete 01/30/25 00:00 Nose MRSA Screen - Final Complete 01/29/25 10:43 Sputum Gram Stain - Final Complete 01/29/25 10:43 Sputum Respiratory Culture - Final Complete Labs and/or images reviewed: Labs reviewed by me, Image(s) reviewed by me Problem List/Assessment/Plan Problem List/Assessment/Plan This is a 24-year-old male with no significant past medical history underwent elective laparoscopic cholecystectomy on 01/28 at [facility] (due to cholelithiasis), on 2nd day postop at home became lethargic and subsequently coded. ROSC was achieved with CPR, abdominal CT scan showed intra-abdominal hematoma, underwent emergent laparotomy and drained about 500-750 thrombosed and dark blood. NEURO: Hypoxic encephalopathy, due to cardiac arrest Anoxic brain injury * RASS Score -5 * Head CT from 01/30 shows, Cerebellar tonsilar herniation. There is sulcal and ventricular effacement. The basal cisterns are effaced. Loss of mario-white matter differentiation is noted. * Head CT on 02/11 shows worsening diffuse cerebral edema in the setting of anoxic brain injury * BRNNM-brain imaging, shows absence blood flow, findings suggest brain in the appropriate clinical setting * Plan: PEG tube placement and transfering to LTAC CARDIOVASCULAR: NSTEMI possible type 2 Status post cardiac arrest Distributive shock (vasoplegia)/neurogenic shock/septic shock vasopressin * Cardiology on the board, recommended medical management * Echo from 01/30 shows,Technically limited study secondary to poor acoustic windows, normal LV size and function, 55-60% * Plan: Levophed, midodrine 5 mg t.i.d. PULMONARY: Acute hypoxic respiratory failure, likely due to anoxic brain injury Cxr showed bilateral mild pulmonary vascular congestion GASTROINTESTINAL: Acute transaminitis secondary to hypovolemic shock Coagulopathy Hypoalbuminemia Status post laparoscopic cholecystectomy Status post exploratory laparotomy for hemoperitoneum Transaminitis, likely due to TPN GENITOURINARY: HARLEEN secondary to hypovolemic shock * Nephrology on the board, performed dialysis on 02/03 * IV Bumex 2 mg b.i.d. METABOLIC: Severe anion gap metabolic acidosis due to lactic acidosis Hypernatremia Grade 2 obesity, BMI 35.7 kg per m2 Hypoglycemia HEME: Severe anemia, due to bleeding * Received 3 units of PRBC, 2 units of FFP and 1 unit of cryoprecipitate * Monitor H&H and epoetin fiona INFECTIOUS DISEASE: Leucocytosis Lactic acidosis * Urine culture, blood culture and respiratory culture shows no growth * On Zosyn and vancomycin DIET: TPN DVT prophylax: Hold GI prophylaxis: Protonix Code status: Full code LINES/DRAINS/ACCESS: ETT: Intubated on 01/29 IV access: Lt IJ placed on 01/29/25 left subclavian, tunneled dialysis catheter placed on 02/14 Drips: On Levophed Mroa catheter: Placed on 01/29 DISPOSITION: ICU status Patient's status discussed with the patient's mother at the bedside. Critical care time spent more than 46 minutes, including patient care, chart review, and updating the family. Excluding any procedures. Case discussed with Dr. Troy Plan discussed with: Patient, Other Dietary Evaluation Review Recommendations by RD: PPN/TPN Comments: 1) Increase TPN rate to meet at least 75% of estimated daily needs 2) Advance to renal cardiac diet when medically feasible, pending ST approval 3) Follow-up with cardiology, pulmonology, nephrology, neurology, and gastroenterology 4) Continue to monitor I&O, labs, and skin integrity Expected Outcomes/Goals: 1) nutritional support to meet at least 75% of estimated daily needs 2) labs and wound to improve 3) diet to advance 4) gradual wt loss 5) f/u in 2-3 days Date of Service: Feb 19, 2025 Billing Provider: JEFFREY TROY MD Common Visit Codes: [id number] CARE 30-74 MIN ARNOLD MUHAMMAD Feb 19, 2025 17:26 JEFFREY TROY MD Feb 22, 2025 11:43
[2025-02-19] MEDS: LIDOCAINE 1%-Mpf/Epinephrine 1:200,000 30ml VIAL ONE (19:26)
[2025-02-19] MEDS: LIDOCAINE 1% HCL (LOCAL ANESTH.) INJ 20ML MDV ONE (20:10)
[2025-02-19] MEDS: BUPIVACAINE 0.25% INJ 50ML VIAL ONE (20:10)
[2025-02-19] MEDS: EPOETIN ALFA-EPBX 10,000 UNIT/1ML VIAL SC ONE (21:00)
[2025-02-19] MEDS: TPN PER PHARMACY IV NR (21:51)
[2025-02-19] MEDS: PIPERACILLIN-TAZOB 3.375GM 100 ML IV SCH (21:51)
--- NOTE | 2025-02-19 22:00 | DVHOP ---
DATE OF SURGERY: 02/19/2025 PREOPERATIVE DIAGNOSIS: Anoxic brain injury with acquired dysphagia. POSTOPERATIVE DIAGNOSIS: Anoxic brain injury with acquired dysphagia. PROCEDURE: Diagnostic laparoscopy with laparoscopic lysis of adhesions and percutaneous endoscopic gastrostomy. SURGEON: Robbin Ledesma MD FINAL TESTER: None. ANESTHESIOLOGIST: VERONICA Bravo. ANESTHESIA: General by means of tracheostomy. INTRAOPERATIVE FINDINGS: * Adipose tissue omentum adherent to the anterior surface of the stomach as well as the epigastric region. * Excellent placement of percutaneous endoscopic gastrostomy. ESTIMATED BLOOD LOSS: Minimal. IV FLUIDS: Per anesthesia charting. URINE OUTPUT: Per RN charting. DRAINS: None. IMPLANTS: Gastrostomy tube. COMPLICATIONS: None. SPECIMENS: None. DISPOSITION: Procedure well tolerated, transferred to the recovery room in a guarded condition. INDICATIONS FOR PROCEDURE: The patient is an unfortunate 24-year-old male with anoxic brain injury. The patient has acquired dysphagia. For this reason, a percutaneous endoscopic gastrostomy tube was attempted and it was aborted as there was no transillumination. Given the failed attempt, he was recommended to undergo a laparoscopic-assisted approach. A lengthy discussion was held with the patient's mother. She was made aware of the attempt to proceed with a laparoscopic approach. The procedure, the inherent risks and benefits were explained in detail in an extensive fashion by Dr. Mack and myself. All questions were answered. She understood and agreed to proceed. DESCRIPTION OF PROCEDURE: The patient was taken to the operating room. He was placed in the dorsal decubitus position on the operating table. Once lidocaine anesthesia achieved, the abdomen and pelvis were widely prepped and draped in the usual sterile fashion. My attention was directed to the supraumbilical region where local anesthesia consisting of 1% lidocaine/0.5% Marcaine was infiltrated. The previous umbilical incision was opened with an 11 blade. The abdominal wall was retracted anteriorly by means of towel clamps and a Veress needle was inserted into the abdominal cavity. Pneumoperitoneum of 15 mmHg was achieved. The Veress needle was exchanged for a 5 mm trocar. A 5 mm 30-degree laparoscope was inserted into the abdominal cavity. A thorough survey of the abdominal cavity did not reveal any evidence of injury or bleeding upon entry. There were adhesions involving the omentum against the epigastric region. The stomach was not very visible as it was also covered by omentum. In the left upper quadrant region, a 5 mm trocar was placed with preemptive local anesthesia as well as under direct laparoscopic visualization. The adhesions involving the omentum against the epigastric region were dissected with the LigaSure device. The adhesions involving the omentum against the stomach were carefully dissected by peeling the omentum away from the stomach without injury or bleeding to involved structures. At this time, Dr. Mack proceeded to perform an endoscopy and insufflated the stomach. The endoscopic part of the procedure will be dictated in a separate operative report by Dr. Mack. Once the gastrostomy tube was placed, the abdominal cavity was inspected. There was no evidence of active bleeding or injury. The gastrostomy tube was in perfect location. The gastrostomy tube was in a satisfactory position/location. The pneumoperitoneum was evacuated. The laparoscopic equipment was removed from the patient. The wounds were washed and dried. The skin was closed with 4-0 Monocryl in a subcuticular fashion. Sterile glue was applied. The patient tolerated well the procedure. There were no complications. He was successfully transferred to the intensive care unit in a guarded condition. After the completion of the procedure, the patient's mother and brother were met in the waiting area and informed about the success of the procedure. She expressed extreme gratitude towards the care and services she received. MD LAYA Mora/PIERRE TID: [id number] RECEIPT: [id number]
[2025-02-20] VITALS (111 sets, daily range): BP systolic 77–110; BP diastolic 39–71; PULSE 59–96; RESP 12–20; TEMP 94.6–98.4; O2SAT 93–100
[2025-02-20] MEDS: D5W/SOD CHLO 0.9% 1,000 ML IV SCH (03:45)
[2025-02-20 03:50] LABS: Hematocrit 30.1 % (41.0-53.0); Hemoglobin 10.1 g/dL (13.5-17.5); Mean Corpuscular Hemoglobin 29.7 pg (28.0-32.0); Mean Corpuscular Volume 88.4 fL (80.0-100.0)
[2025-02-20 04:14] LABS: Anion Gap 18 (5-15); BUN/Creatinine Ratio 10.6 (10.0-20.0); Calcium 9.6 mg/dL (8.7-10.4); Carbon Dioxide 24 mmol/L (20-31); Magnesium 2.3 mg/dL (1.6-2.6); Sodium 139 mmol/L (136-145); Total Protein 7.6 g/dL (5.7-8.2)
[2025-02-20 04:15] LABS: Alanine Aminotransferase 69 U/L (7-40); Albumin 3.7 g/dL (3.2-4.8); Blood Urea Nitrogen 67 mg/dL (9-23); Chloride 97 mmol/L (98-107); Glucose 65 mg/dL (74-106); Potassium 3.5 mmol/L (3.5-5.1)
[2025-02-20 04:16] LABS: Bilirubin, Total 5.4 mg/dL (0.2-1.0)
[2025-02-20 04:31] LABS: Alkaline Phosphatase 1202 U/L (46-116)
--- NOTE | 2025-02-20 05:21 | DVH ---
CHEST RADIOGRAPH Indication: VDRF Technique: Single frontal view of the chest was obtained COMPARISON: XY CHEST PORTABLE on DOS: 02/19/25, XY CHEST XRAY 1 VIEW on DOS: 02/17/25, XY CHEST PORTABL E on DOS: 02/17/25, XY CHEST PORTABLE on DOS: 02/16/25, XY CHEST PORTABLE on DOS: 02/15/25 FINDINGS: Lines and Tubes: Interval removal of enteric catheter. Remaining lines and tubes unchanged. Lungs: Stable appearing small left pleural effusion and minimal bibasilar pulmonary airspace disease. No pneumothorax. Cardiomediastinal contours: Unremarkable Bones: Unremarkable IMPRESSION: 1. Interval removal of enteric catheter. Remaining Lines and tubes unchanged. 2. Otherwise, no significant change compared to prior exam allowing for differences in technique.
[2025-02-20 06:02] LABS: Total Cells Counted 100.0 (100)
[2025-02-20 06:59] LABS: Base Excess -0.5 mmol/L (-2.0-3.0)
[2025-02-20] MEDS: ARTIFICIAL TEARS 15ml EACHEYE PRN (08:17)
--- NOTE | 2025-02-20 08:39 | DVHPN2 ---
Progress Note - Dictate Date Seen: Feb 20, 2025 Has the PT tested + for MRSA If YES, has PT been informed?: No Medical Necessity Reason Pt with a Central, PICC or Fol: Yes The following are medically ne: Mora Catheter Reason for mora catheter: [place]. Abd Surgery, Strict I&O, Total Immobilization vital signs Vital Sign Date Time Temp Pulse Resp B/P (MAP) Pulse Ox O2 Delivery O2 Flow Rate FiO2 02/20/25 08:00 68 12 100 Mechanical Ventilator+ 40 40 02/20/25 07:54 90/51 (64) 02/20/25 06:45 98.1 208.6 Total Intake and Output 02/19/25 02/19/25 02/20/25 15:00 23:00 07:00 Intake Total 636.3 ml 751.00 ml 540.4 ml Output Total 175 ml 300 ml Balance 636.3 ml 576.00 ml 240.4 ml medications Current Medications Medications Dose Ordered Sig/Serenity Route Start Time Stop Time Status Last Admin Dose Admin Midazolam HCl 50 ml @ 1 mls/hr Q24H IV 01/29/25 14:15 01/29/25 15:56 5 MLS/HR Phenylephrine HCl 250 ml @ 30 mls/hr Q8H20M IV 01/29/25 19:30 01/30/25 01:39 116.25 MLS/HR Levalbuterol HCl 0.625 mg Q4HR PRN NEB 01/29/25 20:00 02/19/25 06:23 0.625 MG Ipratropium [place] 0.5 mg Q4HPRN PRN NEB 01/29/25 20:00 02/19/25 06:23 0.5 MG Epinephrine HCl 250 ml @ 7.5 mls/hr Q24H IV 01/30/25 00:15 Vasopressin 20 units/Sodium Chloride 100 ml @ 9 mls/hr Q11H7M IV 01/30/25 07:30 02/03/25 13:09 9 MLS/HR Amino Acids 0 ml @ 0 mls/hr PER PHARMACY IV 02/01/25 11:15 Diagnostic Test (Pha) 1 strip Q6HR 02/01/25 18:00 02/20/25 05:32 1 STRIP Insulin Human Regular FOLLOW SLIDING SCALE Q6HR SC 02/01/25 18:00 02/18/25 06:16 2 UNITS Dextrose 50 ml UD IV 02/01/25 12:30 Sodium Chloride 10 ml QSHIFT@10,22 IV 02/04/25 22:00 02/19/25 21:51 10 ML Neomycin/ Polymyxin/ Bacitracin 1 applic DAILY TOP 02/06/25 10:00 02/19/25 10:05 1 APPLIC Bumetanide 2 mg BIDD IV 02/06/25 18:00 02/19/25 17:36 2 MG Norepinephrine Bitartrate 250 ml @ 0.938 mls/ hr Q24H IV 02/07/25 11:30 02/19/25 01:24 0.938 MLS/HR Artificial Tears 1 drop Q4HP PRN EACHEYE 02/08/25 07:30 02/20/25 08:17 1 DROP Pantoprazole Sodium 40 mg Q12HR IV 02/08/25 22:00 02/19/25 21:51 40 MG Enteral Nutritional Formula 1,000 ml 20 NG 02/11/25 23:15 02/12/25 09:15 1,000 ML Epoetin Gunnar-epbx 8,000 unit MWF@2100 SC 02/17/25 21:00 Hold 02/19/25 21:49 8,000 UNIT Fat Emulsion Intravenous 50 ml/ Sodium Chloride 100 meq/ Multivitamins 10 ml/Amino Acids/ Dextrose 1,435 ml @ 60 mls/hr [id number] IV 02/19/25 22:00 02/20/25 21:59 Piperacillin Sod/ Tazobactam Sod 100 ml @ 25 mls/hr Q12HR IV 02/19/25 22:00 02/19/25 21:51 25 MLS/HR Midodrine 5 mg TID@0600,1200,1800 PO 02/19/25 18:00 02/20/25 05:32 5 MG Dextrose/Sodium Chloride 1,000 ml @ 75 mls/hr [id number] IV 02/20/25 03:45 02/20/25 03:45 75 MLS/HR laboratory and microbiology Laboratory Tests 02/20/25 02:46 Test 02/20/25 02:46 Range/Units Serum Glucose 65 L 74-106 mg/dL Assessment/Plan Still in ICU. On vent support. No gross higher brain reflexes. Pupils are dilated and fixed. Anoxic/Hypoxic Encephalopathy No reported arrhythmia overnight s/p Tracheostomy s/p PEG placement Back on Levophed Had Hemodialysis yesterday s/p PRBC transfusion yesterday On Midodrine Echocardiogram revealed no WMA and also revealed good EF. It also revealed increased Pulmonary Artery Pressure in favor of component of Pulmonary Hypertension. s/p Hemodialysis Received blood and platelet transfusion repeatedly Patient is a 24-year-old gentleman who was originally brought to the hospital for post arrest. Patient is seen in postop area. Patient is intubated and on multiple pressor supports. Patient is not source of history. Information was obtained by reviewing the chart, talking to patient's family/mother and communicating with staff and reviewing outside records ([facility]). Patient did have elective outpatient laparoscopic cholecystectomy in [facility] on January 28 2025. As per mother, after going home, patient was feeling very hungry and was eating and drinking a lot. He started feeling abdominal pain with nausea at night and in the morning was short of breath. As per mother: patient has stopped breathing in the morning and family called 911. As per mother, as per guidance of 911, family started CPR until EMS arrived. Patient was intubated and was brought to the hospital by EMS. Since arrival to [facility], patient was seen by surgeon who took the patient to operating room and performed laparotomy (there was hepatic hematoma). Postoperatively, the patient has remained hypotensive. There is signs for multiorgan involvement. Patient was not alert and did not complain of any chest pains. Labs revealed increased troponin. Cardiology is involved for cardiac aspects of care and abnormal troponin. First available EKG reveals sinus tachycardia with no specific ST-T changes. Telemetry had revealed sinus tachycardia throughout the stay. Patient is found to have significant anemia and is receiving blood transfusion at the time of evaluation. It is of note that at the time of evaluation patient does not have any reflexes. Intubated. Mucosa pale. Dilated and fixed pupils, Scattered rhonchi in the lungs. Cardiac: Tachycardic. No murmur. Abdomen is covered by dressing. Extremities do not reveal any edema. Dorsalis pedis is 1+ bilateral. Patient does not respond to any stimuli. Reported past medical history includes asthma and obesity. Reportedly, on January 23, 2025: Patient presented to [facility] for abdominal pain/nausea/vomiting. At that point the problems were ongoing for few weeks. In [facility], CT of the abdomen and MRCP were performed. Patient was seen by GI/surgery. Patient was found to have gallstones. Patient was discharged and later on January 28, 2025 presented back to [facility] for elective laparoscopy cholecystectomy. Patient was discharged home from [facility] after laparoscopic cholecystectomy. As per mother, patient does not have baseline history of any cardiac history. As per mother, patient was using marijuana. Mother denies any previous substance abuse besides marijuana. No specific family history is reported On January 23, 2025, labs in [facility] revealed creatinine of 0.84, hemoglobin of 15.2 and troponin (high sensitive) of <3. At that point EKG was normal WBC: 20.1 - 19.0 - 22.7 - 20.6 - 28.4 - 20.3 - 21.0 - 25.2 - 29.8 - 29.5 - 29.0 - 26.2 - 21.7 - 19.7 - 17.7 - 15.3 - 12.2 - 10.5 - 11.2 - 13.0 - 10.7 - 9.0 - 9.0 - 10.3 - 10.3 - 10.1 - 11.0 - 12.4 - 13.0 - 12.0 - 15.1 Hemoglobin: 8.3 - 6.5 - 12.1 - 11.1 - 12.1 - 9.3 - 9.2 - 9.1 - 8.4 - 9.0 - 9.5 - 8.8 - 8.4 - 8.0 - 9.7 - 9.6 - 9.8 - 9.6 - 9.7 - 9.8 - 9.1 - 8.5 - 8.8 - 8.9 - 8.7 - 8.8 - 9.7 - 9.1 - 7.9 - 8.2 - 10.1 Fibrinogen: 108 - 316 - 537 - 689 - >860 Creatinine: 4.02 - 3.78 - 3.90 - 3.95 - 4.34 - 5.44 - 6.05 - 6.73 - 7.31 - 7.77 - 6.64 - 7.30 - 4.91 - 5.32 - 7.40 - 5.98 - 7.66 - 6.28 - 7.71 - 8.67 - 6.87 - 5.62 - 7.59 - 8.95 - 7.51 - 9.04 - 6.23 - 7.09 - 5.33 - 6.90 - 4.95 - 6.31 Potassium: 5.6 - 4.6 - 4.8 - 3.9 - 2.9 - 2.9 - 3.6 - 3.8 - 4.9 - 5.4 - 6.0 - 5.1 - 5.3 - 6.1 - 6.0 - 4.6 - 4.4 - 4.3 - 3.5 - 3.4 - 3.7 - 4.5 - 5.7 - 5.2 - 4.0 - 3.8 - 4.1 - 4.5 - 4.9 - 4.7 - 4.6 - 4.4 - 4.6 - 3.7 - 3.5 AST/ALT: 676/700 - 4447/2055 - 4636/2521 - -/1995 - 2500/1990 - 1780/1821 - 808/995 - 586/735 - 456/444 - 312/290 - 237/163 - 215/125 - 190/87 - 200/74 - 202/66 - 189/53 - 186/44 - 186/45 - 192/38 - 193/34 - 214/34 - 195/30 - 261/42 - 241/47 - 246/63 - 265/69 Lactic acid: 17.9 - 17.2 - 11.4 Troponin (high sensitive): 1409 - 7949 - 8904 - 0454 - 0404 TSH: 11.05 Urine Toxicology: positive for Fentanyl and Benzodiazepine Chest x-ray revealed: Lines and Tubes: Endotracheal tube projects 2.2 cm above the meghan. Right internal jugular central venous catheter tip projects over superior vena cava. Lungs: No focal consolidation. Low lung volumes. Pleura: No effusion. No pneumothorax. Cardiomediastinal contours: Unremarkable Bones: No acute osseous abnormality. IMPRESSION: Lines and tubes as above. Low lung volumes. Repeat chest x-ray revealed: IMPRESSION: Lines and tubes in satisfactory position. Mild increased pulmonary vascular congestion Repeat chest xry revealed: IMPRESSION: Lines and tubes in satisfactory position. Mild increased pulmonary vascular congestion Repeat chest xry revealed: IMPRESSION: 1. Low lung volumes with concomitant crowding of the pulmonary vasculature. 2. No evidence of focal consolidation. 3. Lines and tubes unchanged. Repeat chest xry revealed: IMPRESSION: 1. Slight interval retraction of the endotracheal tube such that the tip now projects approximately 4.7 cm above the level of the meghan. Remaining lines and tubes unchanged. 2. Otherwise no significant change compared to prior exam. Repeat chest xry revealed: IMPRESSION: 1. Slight interval advancement of endotracheal tube such that the tip now projects approximately 1.7 cm above the level of the meghan. Remaining lines and tubes unchanged. 2. Otherwise no significant change compared to prior exam. Repeat chest xry revealed: IMPRESSION: 1. Slight interval retraction of the endotracheal tube such that the tip now projects approximately 3.3 cm above the level of the meghan. Remaining lines and tubes unchanged. 2. No evidence of acute cardiopulmonary process. Repeat chest xry revealed: IMPRESSION: 1. Endotracheal tube in appropriate position. Remaining lines and tubes unchanged. 2. No evidence of acute cardiopulmonary process. Repeat chest xry revealed: IMPRESSION: 1. Small right pleural effusion. 2. Lines and tubes unchanged. Repeat chest xry revealed: IMPRESSION: 1. Small right pleural effusion. 2. Lines and tubes unchanged. Repeat chest xry revealed: IMPRESSION: 1. Small bilateral pleural effusions. 2. Lines and tubes unchanged. Repeat chest xry revealed: IMPRESSION: 1. Slight interval advancement of the endotracheal tube. Remaining lines and tubes unchanged. 2. No evidence of acute cardiopulmonary process. Repeat chest xry revealed: IMPRESSION: 1. Slight interval retraction of the endotracheal tube such that the tip now projects approximately 3.3 cm above the level of the meghan. Remaining lines and tubes unchanged. 2. No evidence of acute cardiopulmonary process. Repeat chest xry revealed: Bowel gas pattern is unremarkable. Enteric tube tip projects over the expected region of the stomach. The lung bases demonstrates bibasilar atelectasis. The lower pelvis is collimated from field of view. No acute osseous abnormality identified. Repeat chest xry revealed: Lines and Tubes: Endotracheal tube tip projects approximately 5.1 cm above the level of the meghan. Enteric catheter terminates within the gastric lumen. Right peripherally inserted central catheter tip and left subclavian central venous catheter tip project over the distal superior vena cava. Lungs: Clear Pleura: No effusion. No pneumothorax. Cardiomediastinal contours: Unremarkable Bones: Unremarkable IMPRESSION: 1. No radiographic evidence of acute cardiopulmonary abnormality. 2. Lines and tubes as above. Repeat chest xry revealed: IMPRESSION: 1. Stable position of the support lines and tubes. 2. Bibasilar airspace disease which may reflect atelectasis and/or pneumonia. Possible small bilateral pleural effusions. Repeat chest xry revealed: IMPRESSION: 1. Lines and tubes unchanged. 2. Persistently diminished lung volumes with concomitant exaggeration of the pulmonary vasculature. No evidence of acute cardiopulmonary process. Repeat chest xry revealed: IMPRESSION: 1. No acute cardiopulmonary disease. 2. Lines and tubes as above. Repeat chest xry revealed: IMPRESSION: 1. Intervally placed right IJ catheter projects in appropriate remaining support devices are stable.2. No other significant change from the previous study. Persistent low lung volumes with vascular crowding and basilar atelectasis. Repeat chest xry revealed: IMPRESSION: Heart is stable in size. There are low lung volumes with probable small left pleural effusion and bibasilar atelectasis. Support lines and tubes appear unchanged in satisfactory position. No pneumothorax. No significant interval change. Repeat chest xry revealed: IMPRESSION: Unchanged bibasilar opacities, likely atelectasis with small pleural effusions Repeat chest xry revealed: IMPRESSION: 1. No significant change from the previous study. Stable support devices. Persistent left pleural effusion and bibasilar airspace disease. Repeat chest xry revealed: IMPRESSION: 1. Interval removal of enteric catheter. Remaining Lines and tubes unchanged. 2. Otherwise, no significant change compared to prior exam allowing for differences in technique. Brain scan revealed: FINDINGS: Absence of cerebral blood flow is noted along with no brain parenchymal radiotracer uptake. Increased activity is seen in the central face likely representing vascular shunting consistent with the so-called "hot nose" sign. Findings suggest brain however clinical correlation is necessary. IMPRESSION: Findings described above, which would be consistent with brain in the appropriate clinical setting, however clinical correlation is needed. CT of the chest/abdomen/pelvis revealed: IMPRESSION: 1. Hepatic hematoma measuring up to approximately 8.6 cm in greatest dimension, as described above, with hemorrhage extending beyond the liver capsule and into the right pericolic gutter as well as into the pelvis. No definite active arterial bleeding is seen on this exam, although limited evaluation due to the timing of contrast, as this was not a CTA exam. 2. Postsurgical changes of cholecystectomy. 3. Dilated fluid-filled small bowel loops, may be due to postoperative ileus. No small bowel obstruction. 4. Small volume pneumoperitoneum, likely due to recent surgery. Small volume of gas are seen in the upper ventral abdomen from the recent surgery. 5. Dependent atelectasis in the lower lobes. Otherwise, no acute disease in the chest. 6. Endotracheal tube and enteric tube in place. 7. Atrophic right kidney incidentally noted. 8. Additional findings as described above. Critical findings Critical Result: Acute hepatic hematoma with hemorrhage extending beyond the liver capsule into the adjacent portions of the abdomen and into the pelvis as detailed above. Repeat CT of chest/abdomen/pelvis revealed: There is limited interpretation of the chest, abdomen and pelvis without administration of intravenous contrast. Endotracheal tube tip terminates just at the meghan / left main bronchus. Diffuse bilateral pulmonary airspace consolidation bilaterally significantly increased. Bilateral lower lobe lobar consolidation/ atelectasis, increased from prior. Small bilateral pleural effusions. There is extensive edema/ stranding within the upper anterior chest, neck region/supraclavicular region. There is some hyperdensity within this region which could represent components of hematoma / blood products. Heterogeneous appearance of the thyroid gland. Right IJ catheter terminating at the cavoatrial junction. Adrenal glands unremarkable in shape. Perisplenic hematoma. Interval postsurgical changes in the right upper quadrant of the abdomen. There appears to be surgicel/gaseous collection within the previous hematoma cavity, likely representing surgicel. There is a radiopaque density within the resection cavity as well which measures 6.2 x 4.6 cm.. Postoperative changes of the right anterior abdomen with soft tissue emphysema. Small amount of pneumoperitoneum Surgical drainage catheter terminating in the right upper quadrant of the abdomen Right renal parenchymal atrophy. Left kidney demonstrates perinephric edema / stranding. No left hydronephrosis. Nasogastric tube projects towards the distal stomach. Moderate distention small bowel loops. Rectal catheter. Moderate distention of the large bowel loops. Normal appendix. Abdominal aorta normal in caliber. Small amount of ascites fluid/ mesenteric edema. Bladder decompressed by Mora catheter. Soft tissue edema /anasarca. Mesenteric edema. Small amount of ascites fluid. The osseous structures are stable. IMPRESSION: Limited evaluation without contrast. Interval evacuation of the right upper quadrant hematoma. Surgicel within the resection cavity. No significant interval development of new hematoma. There are 2 radiopaque lap pads within the resection cavity . Findings reviewed with Dr. Ledesma at 11:51 a.m. on 01/30/2025 Perisplenic hematoma, similar to previous examination. Extensive bilateral pulmonary airspace consolidation, significantly increased from previous examination. Small bilateral pleural effusions. Right upper quadrant drainage catheter. Pneumoperitoneum. Soft tissue edema / anasarca. Small amount of ascites fluid/ mesenteric edema. Extensive edema within the anterior chest, neck region. Heterogeneous appearance thyroid gland. Other findings as described. CT of the head revealed: IMPRESSION: 1. No evidence of acute intracranial abnormality. Repeat CT of head revealed: FINDINGS: Cerebellar tonsilar herniation. There is sulcal and ventricular effacement. The basal cisterns are effaced. Loss of mario-white matter differentiation is noted. The skull and visible facial bones are intact. The paranasal sinuses, mastoid air cells and middle ear cavities are well-aerated. The soft tissues of the scalp are unremarkable. IMPRESSION: Diffuse cerebral edema with cerebellar tonsillar herniation. Recommend MRI brain for further evaluation. Repeat CT of head revealed: FINDINGS: There is diffuse low attenuation throughout the brain with increased effacement of the ventricles and complete sulcal effacement. There is cerebellar tonsillar herniation. The orbits are normal. There is moderate mucosal thickening within the paranasal sinuses and mastoid air cells. The soft tissues and osseous structures appear within normal limits. IMPRESSION: 1. Findings as above suggesting worsening diffuse cerebral edema in the setting of anoxic brain injury in the given clinical setting. Further clinical correlation is suggested. CT of Neck revealed: IMPRESSION: Limited evaluation without contrast. Extensive soft tissue edema within the neck extending into the anterior / upper chest and anterior mediastinum . Retropharyngeal edema. Heterogeneous appearance of the thyroid gland. Inferior cerebellar tonsillar herniation better seen on the prior CT Renal Ultrasound revealed: IMPRESSION: 1. Right kidney not visible. 2. Left kidney is enlarged. 3. No hydronephrosis. Venous duplex of lower ext revealed: IMPRESSION: NO SONOGRAPHIC EVIDENCE FOR DEEP VENOUS THROMBOSIS IN THE RIGHT LOWER EXTREMITY VEINS. Repeat (bilateral) Venous duplex of lower ext revealed: Impression: 1. No right or left femoropopliteal venous thrombosis. EEG reported: This is a remarkably abnormal EEG, this EEG seen in severe cerebral dysfunction due to metabolic/hypoxic encephalopathy or medication effects, unless this is caused by reversible etiology, this EEG is suggestive of a poor prognosis for meaningful recovery, please correlate clinically. Arrival EKG revealed sinus tachycardia with nonspecific ST-T changes Tele reveals sinus tachycardia Echocardiogram revealed: Technically limited study secondary to poor acoustic windows. Left ventricle: Left ventricle was normal-sized with normal systolic function. LVEF was 55-60%. No gross wall motion abnormality was seen. Right ventricle was mildly dilated with normal systolic function. Left atrium was normal-sized. Right atrium was mildly dilated. Aortic valve: Aortic valve was not well visualized. There was no aortic insufficiency/stenosis. There was no mitral regurgitation. There was trace tricuspid regurgitation. Pulmonary valve was not well visualized. IVC was not visualized. Right ventricular systolic pressure was assessed around 48 mm Hg. There was no pericardial effusion. Patient is a 24-year-old gentleman who presented with post arrest. It seems that the patient had hemorrhagic (intra-abdominal) presentation. Patient did have elective laparoscopic cholecystectomy the day before presentation. On the day of presentation, the patient was taken back to operating room and this time Laparotomy was done for hepatic hematoma. Patient does have multiorgan involvement. Clinically there is no brainstem reflexes. Shock liver/acute renal failure is considered. Troponin has been high. EKG did not reveal any STEMI. Presentation could be high troponin secondary to demand physiology. Patient does not have any risk factors for baseline coronary artery disease. In ideal scenario, ischemic workup/cardiac catheterization could be more revealing. Unfortunately, the patient does have acute renal failure which could be worsened by cardiac catheterization at this point. As there was no higher brain functions the suggestion is to wait and see if patient regains any higher brain function. It is of note that during cardiac catheterization, the patient may need some anticoagulation/antiplatelets. At this point patient is having significant anemia/bleeding and receiving blood transfusion and holding off of scenario forcing Anticoagulation/antiplatelets is advised. I had a long discussion with family members and Mother (repeatedly). Clinically patient has multiorgan failure. Secondary to active bleeding, we will avoid anticoagulation/antiplatelets for now. Being managed in ICU. Was taken to OR repeatedly. Still no reflexes. Echocardiogram revealed no WMA and also revealed good EF. It also revealed increased Pulmonary Artery Pressure in favor of component of Pulmonary Hypertension. Review of Echo images revealed good right ventricular systolic function. Not typical for Pulmonary Emboli. Still, PE cannot be ruled out. If PE is ruled out, then it is possible that patient had Pulmonary Hypertension from before (Baseline history of Asthma may actually reflect it). s/p PRBC transfusion (multiple). Being followed by Surgery, Nephrology, Hematology, Pulmonary, Neurology and GI. . Repeat imaging revealed cerebellar tonsillar herniation. Neurology diagnosed Hypoxic/Metabolic Encephalopathy also. EEG findings question meaningful recovery. Neurology declared patient: brain . Neurology second opinion was in favor of Anoxic/Hypoxic Encephalopathy. Repeat imaging of brain revealed worsening diffuse cerebral edema and also again revealed cerebellar tonsillar herniation. Family are contemplating Trach/PEG. Patient is seen by GI. s/p Tracheostomy. s/p PEG. s/p repeated PRBC transfusion. s/ p Arrest Intra-abdominal bleeding Hepatic hematoma Multiorgan failure, due to shock Shock liver Lactic Acidosis Acute renal failure Acute respiratory failure, on vent support Status post laparotomy Status post laparoscopic cholecystectomy Abnormal troponin, evaluated to reflect possible demand physiology History of gallstones History of asthma Obesity History of marijuana abuse Consumptive Coagulopathy / DIC Pulmonary Hypertension Cerebellar tonsillar Herniation. Encephalopathy, hypoxic/metabolic Renal failure, started on hemodialysis Brain scan questions brain Anoxic Encephalopathy s/p Tracheostomy s/p PEG Cardiac suggestion for management: Manage in ICU Follow-up electrolytes and kidney function tests and correct abnormalities Evaluation and management of respiratory failure as per Pulmonary Evaluation and management of Cerebellar tonsillar herniation and worsening cerebral edema as per Neurology/surgery/primary team V/Q scan could not be completed Anoxic/Hypoxic Encephalopathy Echocardiogram revealed no WMA and also revealed good EF. It also revealed increased Pulmonary Artery Pressure in favor of component of Pulmonary Hypertension. Hematology follow up (to comment on prophylaxis / treatment of Pulmonary Emboli) Surgical follow up Nephrology follow up (started on hemodialysis) and Hematology follow up Patient is seen by GI On levophed: goal of MAP: above 55 mmHg On Midodrine: 5 mg TID, if needed can be tapered up to 10 TID by tomorrow DVT prophylaxis as per primary team (compression stocking Vs Lovenox..) Long-term prognosis depends on the above and most importantly regaining of the higher brain function: looks very grim Ischemic workup may be considered only after regaining higher brain function or any special change in clinical presentation Further evaluation and management depends on the above and clinical course A total of 75 minutes was spent reviewing the patient record, examining the patient, making a diagnostic and therapeutic plan, discussing this plan with medical personnel, following up on diagnostic studies and following the patient for clinical stability excluding any and all procedures. At least 50% of this time was spent in direct, [id number] contact. Thank you for allowing me to participate in this patient's care. Further recommendations will depend on patient's clinical course. Please do not hesitate to contact me if you have any questions or concerns. This medical document was created using electronic medical record system with [employer] dictation system. Although this document has been carefully reviewed, there may still be some phonetic and typographical errors. These areas are purely typographical due to the imperfection of the software programs, and do not reflect any compromise in the patient's medical care. Dietary Evaluation Review Recommendations by RD: PPN/TPN Comments: 1) Increase TPN rate to meet at least 75% of estimated daily needs 2) Advance to renal cardiac diet when medically feasible, pending ST approval 3) Follow-up with cardiology, pulmonology, nephrology, neurology, and gastroenterology 4) Continue to monitor I&O, labs, and skin integrity Expected Outcomes/Goals: 1) nutritional support to meet at least 75% of estimated daily needs 2) labs and wound to improve 3) diet to advance 4) gradual wt loss 5) f/u in 2-3 days Plan discussed with: Other (nurse) KATHLEEN COHEN MD Feb 20, 2025 08:39
[2025-02-20] MEDS: ALBUMIN 25% 50 ML IV SCH (09:32)
[2025-02-20] MEDS: SODIUM CHLORIDE 0.9% 500 ML IV ONE (09:33)
--- NOTE | 2025-02-20 10:44 | DVHOP ---
DATE OF SURGERY: 02/19/2025 REFERRING PHYSICIAN: Dr. Robbin Ledesma. PROCEDURE PERFORMED: Intraoperative endoscopic gastrostomy tube placement. PREOPERATIVE DIAGNOSES: 1. Feeding difficulties. 2. Successful intraoperative endoscopic gastrostomy tube placement. PROCEDURE CONSENT: The risks, benefits and alternatives of diagnostic intraoperative EGD with PEG tube placement were discussed with the patient's family. The risks that were discussed with the patient's family include perforation, bleeding, infection, need for immediate surgery and possibly from all related complications. The patient's family had provided consent to proceed with the evaluation. PROCEDURE DETAILED: The patient was brought to the operating room #[address] [facility]. The patient was kept in the supine position. An abdominal laparoscopy was performed by Dr. Ledesma. These findings will be placed under a separate dictation. During the laparoscopy, an adult upper endoscope from [employer] was inserted atraumatically beyond a bite block into the posterior pharynx and down the proximal, mid and distal esophagus. The endoscope was advanced down the esophagus into the gastric lumen and through the pyloric opening into the proximal duodenal bulb and descending duodenum. The endoscope was then slowly retracted back to the gastric antrum where retroflexion was performed to visualize the gastric cardia and incisura. Next, the endoscope was then straightened and pushed along the greater curvature of the gastric body. With laparoscopic assistance, a 1:1 light indentation and finger to light indentation was not possible given the patient's obesity and the excessive amounts of subcutaneous fat. Nonetheless, with laparoscopic guidance, a trocar device was inserted through the abdominal wall and seen to puncture through the gastric wall. Guidewire was then pushed through the trocar device. The guidewire was then grasped from the gastric lumen and pulled out of the patient's mouth using a snare device. The guidewire was then attached to a 20-Turkmen hole PEG tube. The PEG tube was then slowly retracted into position by applying external traction on the portion of the wire external to the abdominal wall. The final external marking of the bumper of the external tubing was approximately 5 cm at the skin line. The external tubing was then fitted with an external bumper and a clamp as well as a tube fitting. The endoscope was then reinserted into the gastric lumen to confirm position of the internal bumper seen affixed to the gastric wall. The endoscopic instruments were then removed from the patient's body. There was very minimal bleeding encountered. There were no immediate complications. The patient was then taken by Anesthesia to PACU recovery. The final results were discussed with the patient's family in the waiting area. RECOMMENDATIONS: 1. Okay to start using the G-tube for medication and flushes. 2. I would recommend waiting 24 hours before starting the patient on tube feeding. 3. Avoid any anticoagulation including NSAIDs or aspirin therapy. DO KAPIL Garcia/NELIA TID: [id number] RECEIPT: [id number]
--- NOTE | 2025-02-20 13:30 | DVHPN2 ---
Progress Note Date Seen: Feb 20, 2025 Has the PT tested + for MRSA If YES, has PT been informed?: No Medical Necessity Reason Pt with a Central, PICC or Fol: Yes The following are medically ne: Mora Catheter Reason for mora catheter: Nakul. Abd Surgery, Strict I&O, Total Immobilization Subjective Review of Systems: RESPIRATORY:Abnormal Other Systems: Patient seen and examined by myself, patient is trached on ventilator Objective vital signs Vital Sign Date Time Temp Pulse Resp B/P (MAP) Pulse Ox O2 Delivery O2 Flow Rate FiO2 02/20/25 12:45 98.1 76 12 96/60 (72) 99 208.6 02/20/25 12:00 40 02/20/25 12:00 Mechanical Ventilator+ Total Intake and Output 02/19/25 02/19/25 02/20/25 14:59 22:59 06:59 Intake Total 633.5 ml 801.00 ml 459.8 ml Output Total 175 ml 300 ml Balance 633.5 ml 626.00 ml 159.8 ml medications Current Medications Medications Dose Ordered Sig/Serenity Route Start Time Stop Time Status Last Admin Dose Admin Midazolam HCl 50 ml @ 1 mls/hr Q24H IV 01/29/25 14:15 01/29/25 15:56 5 MLS/HR Phenylephrine HCl 250 ml @ 30 mls/hr Q8H20M IV 01/29/25 19:30 01/30/25 01:39 116.25 MLS/HR Levalbuterol HCl 0.625 mg Q4HR PRN NEB 01/29/25 20:00 02/19/25 06:23 0.625 MG Ipratropium [place] 0.5 mg Q4HPRN PRN NEB 01/29/25 20:00 02/19/25 06:23 0.5 MG Epinephrine HCl 250 ml @ 7.5 mls/hr Q24H IV 01/30/25 00:15 Vasopressin 20 units/Sodium Chloride 100 ml @ 9 mls/hr Q11H7M IV 01/30/25 07:30 02/03/25 13:09 9 MLS/HR Amino Acids 0 ml @ 0 mls/hr PER PHARMACY IV 02/01/25 11:15 Diagnostic Test (Pha) 1 strip Q6HR 02/01/25 18:00 02/20/25 11:48 1 STRIP Insulin Human Regular FOLLOW SLIDING SCALE Q6HR SC 02/01/25 18:00 02/18/25 06:16 2 UNITS Dextrose 50 ml UD IV 02/01/25 12:30 Sodium Chloride 10 ml QSHIFT@10,22 IV 02/04/25 22:00 02/20/25 09:33 10 ML Neomycin/ Polymyxin/ Bacitracin 1 applic DAILY TOP 02/06/25 10:00 02/20/25 09:33 1 APPLIC Bumetanide 2 mg BIDD IV 02/06/25 18:00 02/19/25 17:36 2 MG Norepinephrine Bitartrate 250 ml @ 0.938 mls/ hr Q24H IV 02/07/25 11:30 02/20/25 11:08 0.938 MLS/HR Artificial Tears 1 drop Q4HP PRN EACHEYE 02/08/25 07:30 02/20/25 08:17 1 DROP Pantoprazole Sodium 40 mg Q12HR IV 02/08/25 22:00 02/20/25 09:32 40 MG Enteral Nutritional Formula 1,000 ml 20 NG 02/11/25 23:15 02/12/25 09:15 1,000 ML Epoetin Gunnar-epbx 8,000 unit MWF@2100 HI 02/17/25 21:00 Hold 02/19/25 21:49 8,000 UNIT Fat Emulsion Intravenous 50 ml/ Sodium Chloride 100 meq/ Multivitamins 10 ml/Amino Acids/ Dextrose 1,435 ml @ 60 mls/hr [id number] IV 02/19/25 22:00 02/20/25 21:59 Piperacillin Sod/ Tazobactam Sod 100 ml @ 25 mls/hr Q12HR IV 02/19/25 22:00 02/20/25 09:32 25 MLS/HR Midodrine 5 mg TID@0600,1200,1800 PO 02/19/25 18:00 02/20/25 11:37 5 MG Dextrose/Sodium Chloride 1,000 ml @ 75 mls/hr [id number] IV 02/20/25 03:45 02/20/25 11:08 75 MLS/HR Albumin Human 50 ml @ 100 mls/hr Q8H IV 02/20/25 08:45 02/21/25 01:14 02/20/25 09:32 100 MLS/HR Examination: LUNGS:Normal, CVS:Normal, MSK:Normal laboratory and microbiology Laboratory Tests 02/20/25 02:46 Test 02/20/25 02:46 Range/Units Serum Glucose 65 L 74-106 mg/dL Microbiology Date/Time Source Procedure Growth Status 02/19/25 11:44 Trachea Gram Stain - Final Resulted 02/19/25 11:44 Trachea Respiratory Culture - Preliminary Resulted 02/09/25 03:40 Blood Blood Culture - Final NO GROWTH AFTER 5 DAYS OF INCUBATION. Complete 02/02/25 22:00 Urine - [place] Urine Culture - Final Complete 01/29/25 10:43 Sputum Gram Stain - Final Complete 01/29/25 10:43 Sputum Respiratory Culture - Final Complete Problem List/Assessment/Plan Problem List/Assessment/Plan Acute kidney injury likely ischemic ATN in the setting of shock, FeNa > 2%, nonoliguric Acute respiratory failure, patient is trached on the ventilator Status post cardiac arrest Anoxic encephalopathy Hyperkalemia secondary to above Metabolic acidosis anion gap secondary to lactic acidosis secondary to reduced perfusion from hemorrhage Hemodynamic shock from bleeding Acute blood loss anemia/post op Status post laparoscopic cholecystectomy on 01/28/25 [facility] Status post ex lap, 01/29 Positive troponins NSTEMI--likely demand ischemia Shock liver Vitamin-D deficiency Status post tracheostomy and gastric tube placement 02/19 Recommendations Hemodialysis tomorrow Epogen 08320 subQ 3 times weekly Increased urine output Mora catheter strict I&Os Vitamin-D replacement Packed red blood cell transfusion p.r.n. IV antibiotics IV pressors for blood pressure support We will continue to follow . Total care time 25 minute minutes I discussed my plan of care with mother and the primary nurse at the bedside Plan discussed with: Other (Nurse) Dietary Evaluation Review Recommendations by RD: PPN/TPN Comments: 1) Increase TPN rate to meet at least 75% of estimated daily needs 2) Advance to renal cardiac diet when medically feasible, pending ST approval 3) Follow-up with cardiology, pulmonology, nephrology, neurology, and gastroenterology 4) Continue to monitor I&O, labs, and skin integrity Expected Outcomes/Goals: 1) nutritional support to meet at least 75% of estimated daily needs 2) labs and wound to improve 3) diet to advance 4) gradual wt loss 5) f/u in 2-3 days FELICIANO KHAN MD Feb 20, 2025 13:29
[2025-02-20] MEDS: POTASSIUM CHL 20MEQ/100ML 100 ML IV SCH (14:43)
--- NOTE | 2025-02-20 18:55 | DVHPNRES ---
Progress Note Date Seen: Feb 20, 2025 Resident Creating Document: ARNOLD MUHAMMAD DALE Has the PT tested + for MRSA If YES, has PT been informed?: No Medical Necessity Reason Pt with a Central, PICC or Fol: Yes The following are medically ne: Mora Catheter Reason for mora catheter: Nakul. Abd Surgery, Strict I&O, Total Immobilization Subjective Review of Systems Patient seen and examined at the bedside. Patient is on mechanical ventilation, off from sedation. Objective vital signs Vital Sign Date Time Temp Pulse Resp B/P (MAP) Pulse Ox O2 Delivery O2 Flow Rate FiO2 02/20/25 18:45 98.4 94 12 102/62 (75) 93 209.1 02/20/25 18:23 30 02/20/25 18:00 Mechanical Ventilator+ Total Intake and Output 02/19/25 02/19/25 02/20/25 15:00 23:00 07:00 Intake Total 636.3 ml 751.00 ml 540.4 ml Output Total 175 ml 300 ml Balance 636.3 ml 576.00 ml 240.4 ml medications Current Medications Medications Dose Ordered Sig/Serenity Route Start Time Stop Time Status Last Admin Dose Admin Midazolam HCl 50 ml @ 1 mls/hr Q24H IV 01/29/25 14:15 01/29/25 15:56 5 MLS/HR Phenylephrine HCl 250 ml @ 30 mls/hr Q8H20M IV 01/29/25 19:30 01/30/25 01:39 116.25 MLS/HR Levalbuterol HCl 0.625 mg Q4HR PRN NEB 01/29/25 20:00 02/19/25 06:23 0.625 MG Ipratropium [place] 0.5 mg Q4HPRN PRN NEB 01/29/25 20:00 02/19/25 06:23 0.5 MG Epinephrine HCl 250 ml @ 7.5 mls/hr Q24H IV 01/30/25 00:15 Vasopressin 20 units/Sodium Chloride 100 ml @ 9 mls/hr Q11H7M IV 01/30/25 07:30 02/03/25 13:09 9 MLS/HR Amino Acids 0 ml @ 0 mls/hr PER PHARMACY IV 02/01/25 11:15 Diagnostic Test (Pha) 1 strip Q6HR 02/01/25 18:00 10/9/25 18:08 1 STRIP Insulin Human Regular FOLLOW SLIDING SCALE Q6HR SC 02/01/25 18:00 02/18/25 06:16 2 UNITS Dextrose 50 ml UD IV 02/01/25 12:30 Sodium Chloride 10 ml QSHIFT@10,22 IV 02/04/25 22:00 02/20/25 09:33 10 ML Neomycin/ Polymyxin/ Bacitracin 1 applic DAILY TOP 02/06/25 10:00 02/20/25 09:33 1 APPLIC Bumetanide 2 mg BIDD IV 02/06/25 18:00 02/19/25 17:36 2 MG Norepinephrine Bitartrate 250 ml @ 0.938 mls/ hr Q24H IV 02/07/25 11:30 02/20/25 11:08 0.938 MLS/HR Artificial Tears 1 drop Q4HP PRN EACHEYE 02/08/25 07:30 02/20/25 08:17 1 DROP Pantoprazole Sodium 40 mg Q12HR IV 02/08/25 22:00 02/20/25 09:32 40 MG Enteral Nutritional Formula 1,000 ml 20 NG 02/11/25 23:15 02/12/25 09:15 1,000 ML Epoetin Fiona-epbx 8,000 unit MWF@2100 CT 02/17/25 21:00 Hold 02/19/25 21:49 8,000 UNIT Fat Emulsion Intravenous 50 ml/ Sodium Chloride 100 meq/ Multivitamins 10 ml/Amino Acids/ Dextrose 1,435 ml @ 60 mls/hr [id number] IV 02/19/25 22:00 02/20/25 21:59 Piperacillin Sod/ Tazobactam Sod 100 ml @ 25 mls/hr Q12HR IV 02/19/25 22:00 02/20/25 09:32 25 MLS/HR Midodrine 5 mg TID@0600,1200,1800 PO 02/19/25 18:00 02/20/25 17:46 5 MG Dextrose/Sodium Chloride 1,000 ml @ 75 mls/hr [id number] IV 02/20/25 03:45 02/20/25 11:08 75 MLS/HR Albumin Human 50 ml @ 100 mls/hr Q8H IV 02/20/25 08:45 02/21/25 01:14 02/20/25 16:57 100 MLS/HR Examination General: RASS -5, afebrile, mucosae are moist Cardiovascular: Normal S1 and S2. No murmurs, gallops or rubs Respiratory: Mechanically assisted ventilation, equal bilateral airway entree. Clear lung sounds on auscultation Abdomen: Soft, nontender, no organomegaly, with surgical wound on abdomin MSK/skin: Mobilization of limbs cannot be evaluated. Skin is dry and warm. Neurological: Orientation cannot be assessed. Pupils are dilated and nonreactive to light, absent brainstem reflexes laboratory and microbiology Laboratory Tests 02/20/25 02:46 Test 02/20/25 02:46 Range/Units Serum Glucose 65 L 74-106 mg/dL Microbiology Date/Time Source Procedure Growth Status 02/19/25 11:44 Trachea Gram Stain - Final Resulted 02/19/25 11:44 Trachea Respiratory Culture - Preliminary Resulted 02/09/25 03:40 Blood Blood Culture - Final NO GROWTH AFTER 5 DAYS OF INCUBATION. Complete 02/02/25 22:00 Urine - [place] Urine Culture - Final Complete 01/29/25 10:43 Sputum Gram Stain - Final Complete 01/29/25 10:43 Sputum Respiratory Culture - Final Complete Labs and/or images reviewed: Labs reviewed by me, Image(s) reviewed by me Problem List/Assessment/Plan Problem List/Assessment/Plan This is a 24-year-old male with no significant past medical history underwent elective laparoscopic cholecystectomy on 01/28 at [facility] (due to cholelithiasis), on 2nd day postop at home became lethargic and subsequently coded. ROSC was achieved with CPR, abdominal CT scan showed intra-abdominal hematoma, underwent emergent laparotomy and drained about 500-750 thrombosed and dark blood. NEURO: Hypoxic encephalopathy, due to cardiac arrest Anoxic brain injury * RASS Score -5 * Head CT from 01/30 shows, Cerebellar tonsilar herniation. There is sulcal and ventricular effacement. The basal cisterns are effaced. Loss of mario-white matter differentiation is noted. * Head CT on 02/11 shows worsening diffuse cerebral edema in the setting of anoxic brain injury * BRNNM-brain imaging, shows absence blood flow, findings suggest brain in the appropriate clinical setting * Plan: transfering to LTAC CARDIOVASCULAR: NSTEMI possible type 2 Status post cardiac arrest Distributive shock (vasoplegia)/neurogenic shock/septic shock vasopressin * Cardiology on the board, recommended medical management * Echo from 01/30 shows,Technically limited study secondary to poor acoustic windows, normal LV size and function, 55-60% * Plan: Levophed, midodrine 5 mg t.i.d. PULMONARY: Acute hypoxic respiratory failure, likely due to anoxic brain injury Cxr showed bilateral mild pulmonary vascular congestion GASTROINTESTINAL: Acute transaminitis secondary to hypovolemic shock Coagulopathy Hypoalbuminemia Status post laparoscopic cholecystectomy Status post exploratory laparotomy for hemoperitoneum Transaminitis, likely due to TPN GENITOURINARY: HARLEEN secondary to hypovolemic shock * Nephrology on the board, performed dialysis on 02/03 * IV Bumex 2 mg b.i.d. METABOLIC: Severe anion gap metabolic acidosis due to lactic acidosis Hypernatremia Grade 2 obesity, BMI 35.7 kg per m2 Hypoglycemia HEME: Severe anemia, due to bleeding * Received 3 units of PRBC, 2 units of FFP and 1 unit of cryoprecipitate * Monitor H&H and epoetin fiona INFECTIOUS DISEASE: Leucocytosis Lactic acidosis * Urine culture, blood culture and respiratory culture shows no growth * On Zosyn and vancomycin DIET: TPN DVT prophylax: Hold GI prophylaxis: Protonix Code status: Full code LINES/DRAINS/ACCESS: ETT: Intubated on 01/29 IV access: Lt IJ placed on 01/29/25 left subclavian, tunneled dialysis catheter placed on 02/14 Drips: On Levophed Mora catheter: Placed on 01/29 DISPOSITION: ICU status Patient's status discussed with the patient's mother at the bedside. Critical care time spent more than 46 minutes, including patient care, chart review, and updating the family. Excluding any procedures. Case discussed with Dr. Troy Plan discussed with: Other Dietary Evaluation Review Recommendations by RD: PPN/TPN Comments: 1) Increase TPN rate to meet at least 75% of estimated daily needs 2) Advance to renal cardiac diet when medically feasible, pending ST approval 3) Follow-up with cardiology, pulmonology, nephrology, neurology, and gastroenterology 4) Continue to monitor I&O, labs, and skin integrity Expected Outcomes/Goals: 1) nutritional support to meet at least 75% of estimated daily needs 2) labs and wound to improve 3) diet to advance 4) gradual wt loss 5) f/u in 2-3 days Date of Service: Feb 20, 2025 Billing Provider: JEFFREY TROY MD Common Visit Codes: 41878-[id number] CARE 30-74 MIN ARNOLD MUHAMMAD RESDIRONNI Feb 20, 2025 18:55 JEFFREY TROY MD Feb 22, 2025 11:59
--- NOTE | 2025-02-20 19:54 | DVHPN2 ---
Progress Note Date Seen: Feb 20, 2025 Has the PT tested + for MRSA If YES, has PT been informed?: No Medical Necessity Reason Pt with a Central, PICC or Fol: Yes The following are medically ne: Mora Catheter Reason for mora catheter: Nakul. Abd Surgery, Strict I&O, Total Immobilization Subjective Review of Systems Pt's mother and brother at the bedside. Per RN, u/o 160 mL for shift and smear BM. No other changes. MRCP ordered earlier today to r/o possibility of retained CBD stone. Mother and brother informed about the purpose (Increasing TB with persistent elevation of remaining LFT). Unfortunately, can't get MRCP. Requested Sputum Cx (as it seems it was not done, although ordered yesterday and verbally asked RT to obtain), and Blood Cx for increasing WBC. Objective vital signs Vital Sign Date Time Temp Pulse Resp B/P (MAP) Pulse Ox O2 Delivery O2 Flow Rate FiO2 02/20/25 18:45 98.4 94 12 102/62 (75) 93 209.1 02/20/25 18:23 30 02/20/25 18:00 Mechanical Ventilator+ Total Intake and Output 02/19/25 02/19/25 02/20/25 15:00 23:00 07:00 Intake Total 636.3 ml 751.00 ml 540.4 ml Output Total 175 ml 300 ml Balance 636.3 ml 576.00 ml 240.4 ml medications Current Medications Medications Dose Ordered Sig/Serenity Route Start Time Stop Time Status Last Admin Dose Admin Midazolam HCl 50 ml @ 1 mls/hr Q24H IV 01/29/25 14:15 01/29/25 15:56 5 MLS/HR Phenylephrine HCl 250 ml @ 30 mls/hr Q8H20M IV 01/29/25 19:30 01/30/25 01:39 116.25 MLS/HR Levalbuterol HCl 0.625 mg Q4HR PRN NEB 01/29/25 20:00 02/19/25 06:23 0.625 MG Ipratropium [place] 0.5 mg Q4HPRN PRN NEB 01/29/25 20:00 02/19/25 06:23 0.5 MG Epinephrine HCl 250 ml @ 7.5 mls/hr Q24H IV 01/30/25 00:15 Vasopressin 20 units/Sodium Chloride 100 ml @ 9 mls/hr Q11H7M IV 01/30/25 07:30 02/03/25 13:09 9 MLS/HR Amino Acids 0 ml @ 0 mls/hr PER PHARMACY IV 02/01/25 11:15 Diagnostic Test (Pha) 1 strip Q6HR 02/01/25 18:00 02/20/25 18:08 1 STRIP Insulin Human Regular FOLLOW SLIDING SCALE Q6HR SC 02/01/25 18:00 02/18/25 06:16 2 UNITS Dextrose 50 ml UD IV 02/01/25 12:30 Sodium Chloride 10 ml QSHIFT@10,22 IV 02/04/25 22:00 02/20/25 09:33 10 ML Neomycin/ Polymyxin/ Bacitracin 1 applic DAILY TOP 02/06/25 10:00 02/20/25 09:33 1 APPLIC Bumetanide 2 mg BIDD IV 02/06/25 18:00 02/19/25 17:36 2 MG Norepinephrine Bitartrate 250 ml @ 0.938 mls/ hr Q24H IV 02/07/25 11:30 02/20/25 11:08 0.938 MLS/HR Artificial Tears 1 drop Q4HP PRN EACHEYE 02/08/25 07:30 02/20/25 08:17 1 DROP Pantoprazole Sodium 40 mg Q12HR IV 02/08/25 22:00 02/20/25 09:32 40 MG Enteral Nutritional Formula 1,000 ml 20 NG 02/11/25 23:15 02/12/25 09:15 1,000 ML Epoetin Gunnar-epbx 8,000 unit MWF@2100 NV 02/17/25 21:00 Hold 02/19/25 21:49 8,000 UNIT Fat Emulsion Intravenous 50 ml/ Sodium Chloride 100 meq/ Multivitamins 10 ml/Amino Acids/ Dextrose 1,435 ml @ 60 mls/hr [id number] IV 02/19/25 22:00 02/20/25 21:59 Piperacillin Sod/ Tazobactam Sod 100 ml @ 25 mls/hr Q12HR IV 02/19/25 22:00 02/20/25 09:32 25 MLS/HR Midodrine 5 mg TID@0600,1200,1800 PO 02/19/25 18:00 02/20/25 17:46 5 MG Dextrose/Sodium Chloride 1,000 ml @ 75 mls/hr [id number] IV 02/20/25 03:45 02/20/25 11:08 75 MLS/HR Albumin Human 50 ml @ 100 mls/hr Q8H IV 02/20/25 08:45 02/21/25 01:14 02/20/25 16:57 100 MLS/HR Examination Neuro. Unchanged. Dilated fixed pupils. No reflexes. CV. Hr 90. SBP 90, Levophed ta 5 mcg/kg. Previous LSCV HD catheter site C/D/I. Right PC and PICC catheter exit sites remain C/D/I. Epistaxis, resolved. Some minimal blood during oral care. Pulmonary: Tracheostomy in place. C/D/I. Mechanical ventilator support 500/14/30%/+7. RR 14/min. Suction tubing with clear secretions, slight yellow tinge. GI: Soft, obese, nondistended and non tender. Incisions and dressing C/D/I. PEG in place. Clean site. . Mora catheter in place. Clear yellow urine in collection bag Extremities. No edema Resolved facial and neck edema. Mild orbital edema Skin: Jaundice was noted last night and it is still present today. laboratory and microbiology Laboratory Tests 02/20/25 02:46 Test 02/20/25 02:46 Range/Units Serum Glucose 65 L 74-106 mg/dL Microbiology Date/Time Source Procedure Growth Status 02/19/25 11:44 Trachea Gram Stain - Final Resulted 02/19/25 11:44 Trachea Respiratory Culture - Preliminary Resulted 02/09/25 03:40 Blood Blood Culture - Final NO GROWTH AFTER 5 DAYS OF INCUBATION. 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 CT revealed cerebral edema and tonsillar herniation.EEG no electric activity. Cerebral perfusion study confirmed no perfusion radiographically consistent with brain which was concordant with initial clinical diagnosis and EEG. However, pt continues demonstrating brainstem function as he is breathing over vent set rate of 14. RR. There seems to be autonomic dysfunction. Pt's BP fluctuating and RR. F/U (3rd) CT brain worsening cerebral edema and tonsillar herniation. Mother and brother aware. CV: Hypotension. Levophed 5 mcg/kg. Midodrine 5 mg TID via PEG. Albumin to increase oncotic pressure. Cardiology assistance appreciated. Mechanical DVT prophylaxis. Unlikely PE (can't rule it out) but patient oxygenating well, no tachycardia. Pulmonary hypertension possibly unknowingly preexistent. Duplex negative for DVT Pulmonary: VDRF. S/p tracheostomy. CXR no PTX. Low lung volumes, slight improvement. ATX and small pleural effusion. Pending sputum culture. R/O PNA. ABG reviewed, respiratory alkalosis. Continue ventilator. Appreciate pulmonary medicine assistance. Pulmonary medicine following. GI: Continue BID GI prophylaxis. Hepatic shock. Elevated LFTs. Increasing TB. Cholestasis versus retained stone. Can't obtain MRCP. . ARF/ATN secondary to hemorrhagic shock. D5/1/2 NS at 75 mL/hr. Strict I&O. Stable u/o. Mora to gravity. Appreciate nephrology assistance. Replace/correct electrolytes. HD per nephrology. Consider volume neutral HD. If possible. Heme/ID. Some bleeding during oral care. 1 u PRBC, disproportionate increase.. VW Ag high. Inflammatory reaction. Minimizing blood draw frequency to avoid worsening anemia. Repeat labs AM. Appreciate hematology assistance. Infectious workup. Continue Empiric Zosyn and Vancomycin. Endocrine: Tight glycemic control. Skin: Skin care and pressure ulcer precautions. Plan discussed with: Other (Mother, brother and RN.) My Orders My Orders Orders - JITENDRA ZAMORA MD Procedure Category Date Status Time Communication Order ORDERS 02/19/25 Transmitted 20:47 D5w/Sod Chlo 0.9% PHA 02/20/25 In Process (D5w Ns 0.9%) 03:45 Abg W/ Co-Ox RT 02/20/25 Logged 05:24 Albumin 25% (Albutein) PHA 02/20/25 In Process 08:45 Blood Culture [email or web address] 02/20/25 In Process 08:42 Tpn Per Pharmacy YANET 02/20/25 In Process 22:00 Comprehensive LAB 02/21/25 Verified Metabolic Panel 05:00 Phosphorus LAB 02/21/25 Verified 05:00 Magnesium LAB 02/21/25 Verified 05:00 Dietary Evaluation Review Recommendations by RD: PPN/TPN Comments: 1) Increase TPN rate to meet at least 75% of estimated daily needs 2) Advance to renal cardiac diet when medically feasible, pending ST approval 3) Follow-up with cardiology, pulmonology, nephrology, neurology, and gastroenterology 4) Continue to monitor I&O, labs, and skin integrity Expected Outcomes/Goals: 1) nutritional support to meet at least 75% of estimated daily needs 2) labs and wound to improve 3) diet to advance 4) gradual wt loss 5) f/u in 2-3 days JITENDRA ZAMORA MD Feb 20, 2025 19:54
[2025-02-21] VITALS (110 sets, daily range): BP systolic 78–156; BP diastolic 35–103; PULSE 67–86; RESP 10–19; TEMP 95.5–98.2; O2SAT 88–100
[2025-02-21 04:00] LABS: Hematocrit 29.2 % (41.0-53.0); Hemoglobin 9.5 g/dL (13.5-17.5); Mean Corpuscular Hemoglobin 29.2 pg (28.0-32.0); Mean Corpuscular Volume 90.1 fL (80.0-100.0)
[2025-02-21 04:06] LABS: Albumin 3.4 g/dL (3.2-4.8); Anion Gap 18 (5-15); BUN/Creatinine Ratio 9.1 (10.0-20.0); Calcium 9.1 mg/dL (8.7-10.4); Carbon Dioxide 20 mmol/L (20-31); Chloride 103 mmol/L (98-107); Glucose 75 mg/dL (74-106); Magnesium 2.2 mg/dL (1.6-2.6); Potassium 4.5 mmol/L (3.5-5.1); Sodium 141 mmol/L (136-145); Total Protein 6.8 g/dL (5.7-8.2)
[2025-02-21 04:24] LABS: Alanine Aminotransferase 52 U/L (7-40); Alkaline Phosphatase 1023 U/L (46-116); Bilirubin, Total 6.6 mg/dL (0.2-1.0); Blood Urea Nitrogen 68 mg/dL (9-23)
[2025-02-21 04:57] LABS: Bilirubin, Direct 4.8 mg/dL (<0.3)
[2025-02-21 06:07] LABS: Total Cells Counted 100.0 (100)
--- NOTE | 2025-02-21 08:01 | DVHPN2 ---
Progress Note - Dictate Date Seen: Feb 21, 2025 Has the PT tested + for MRSA If YES, has PT been informed?: No Medical Necessity Reason Pt with a Central, PICC or Fol: Yes The following are medically ne: Mora Catheter Reason for mora catheter: Nakul. Abd Surgery, Strict I&O, Total Immobilization vital signs Vital Sign Date Time Temp Pulse Resp B/P (MAP) Pulse Ox O2 Delivery O2 Flow Rate FiO2 02/21/25 06:45 98.1 77 12 91/49 (63) 98 208.6 02/21/25 06:27 30 02/21/25 05:58 Mechanical Ventilator+ Total Intake and Output 02/20/25 02/20/25 02/21/25 15:00 23:00 07:00 Intake Total 957.1 ml 992.389 ml 794.064 ml Output Total 160 ml 275 ml Balance 957.1 ml 832.389 ml 519.064 ml medications Current Medications Medications Dose Ordered Sig/Serenity Route Start Time Stop Time Status Last Admin Dose Admin Midazolam HCl 50 ml @ 1 mls/hr Q24H IV 01/29/25 14:15 01/29/25 15:56 5 MLS/HR Phenylephrine HCl 250 ml @ 30 mls/hr Q8H20M IV 01/29/25 19:30 01/30/25 01:39 116.25 MLS/HR Levalbuterol HCl 0.625 mg Q4HR PRN NEB 01/29/25 20:00 02/19/25 06:23 0.625 MG Ipratropium [place] 0.5 mg Q4HPRN PRN NEB 01/29/25 20:00 02/19/25 06:23 0.5 MG Epinephrine HCl 250 ml @ 7.5 mls/hr Q24H IV 01/30/25 00:15 Vasopressin 20 units/Sodium Chloride 100 ml @ 9 mls/hr Q11H7M IV 01/30/25 07:30 02/03/25 13:09 9 MLS/HR Amino Acids 0 ml @ 0 mls/hr PER PHARMACY IV 02/01/25 11:15 Diagnostic Test (Pha) 1 strip Q6HR 02/01/25 18:00 02/21/25 05:49 1 STRIP Insulin Human Regular FOLLOW SLIDING SCALE Q6HR SC 02/01/25 18:00 02/18/25 06:16 2 UNITS Dextrose 50 ml UD IV 02/01/25 12:30 Sodium Chloride 10 ml QSHIFT@10,22 IV 02/04/25 22:00 02/20/25 21:18 10 ML Neomycin/ Polymyxin/ Bacitracin 1 applic DAILY TOP 02/06/25 10:00 02/20/25 09:33 1 APPLIC Bumetanide 2 mg BIDD IV 02/06/25 18:00 02/21/25 05:48 2 MG Norepinephrine Bitartrate 250 ml @ 0.938 mls/ hr Q24H IV 02/07/25 11:30 02/20/25 21:37 9.375 MLS/HR Artificial Tears 1 drop Q4HP PRN EACHEYE 02/08/25 07:30 02/21/25 02:01 1 DROP Pantoprazole Sodium 40 mg Q12HR IV 02/08/25 22:00 02/20/25 21:18 40 MG Enteral Nutritional Formula 1,000 ml 20 NG 02/11/25 23:15 02/12/25 09:15 1,000 ML Epoetin Gunnar-epbx 8,000 unit MWF@2100 SC 02/17/25 21:00 Hold 02/19/25 21:49 8,000 UNIT Piperacillin Sod/ Tazobactam Sod 100 ml @ 25 mls/hr Q12HR IV 02/19/25 22:00 02/20/25 21:19 25 MLS/HR Midodrine 5 mg TID@0600,1200,1800 PO 02/19/25 18:00 02/21/25 05:49 5 MG Dextrose/Sodium Chloride 1,000 ml @ 75 mls/hr [id number] IV 02/20/25 03:45 02/20/25 23:54 75 MLS/HR laboratory and microbiology Laboratory Tests 02/21/25 03:05 Test 02/21/25 03:05 Range/Units Serum Glucose 75 74-106 mg/dL Assessment/Plan Still in ICU. On vent support. No gross higher brain reflexes. Pupils are dilated and fixed. Anoxic/Hypoxic Encephalopathy No reported arrhythmia overnight s/p Tracheostomy s/p PEG placement Back on Levophed Had Hemodialysis yesterday s/p PRBC transfusion yesterday On Midodrine Echocardiogram revealed no WMA and also revealed good EF. It also revealed increased Pulmonary Artery Pressure in favor of component of Pulmonary Hypertension. s/p Hemodialysis Received blood and platelet transfusion repeatedly Patient is a 24-year-old gentleman who was originally brought to the hospital for post arrest. Patient is seen in postop area. Patient is intubated and on multiple pressor supports. Patient is not source of history. Information was obtained by reviewing the chart, talking to patient's family/mother and communicating with staff and reviewing outside records ([facility]). Patient did have elective outpatient laparoscopic cholecystectomy in [facility] on January 28 2025. As per mother, after going home, patient was feeling very hungry and was eating and drinking a lot. He started feeling abdominal pain with nausea at night and in the morning was short of breath. As per mother: patient has stopped breathing in the morning and family called 911. As per mother, as per guidance of 911, family started CPR until EMS arrived. Patient was intubated and was brought to the hospital by EMS. Since arrival to [facility], patient was seen by surgeon who took the patient to operating room and performed laparotomy (there was hepatic hematoma). Postoperatively, the patient has remained hypotensive. There is signs for multiorgan involvement. Patient was not alert and did not complain of any chest pains. Labs revealed increased troponin. Cardiology is involved for cardiac aspects of care and abnormal troponin. First available EKG reveals sinus tachycardia with no specific ST-T changes. Telemetry had revealed sinus tachycardia throughout the stay. Patient is found to have significant anemia and is receiving blood transfusion at the time of evaluation. It is of note that at the time of evaluation patient does not have any reflexes. Intubated. Mucosa pale. Dilated and fixed pupils, Scattered rhonchi in the lungs. Cardiac: Tachycardic. No murmur. Abdomen is covered by dressing. Extremities do not reveal any edema. Dorsalis pedis is 1+ bilateral. Patient does not respond to any stimuli. Reported past medical history includes asthma and obesity. Reportedly, on January 23, 2025: Patient presented to [facility] for abdominal pain/nausea/vomiting. At that point the problems were ongoing for few weeks. In [facility], CT of the abdomen and MRCP were performed. Patient was seen by GI/surgery. Patient was found to have gallstones. Patient was discharged and later on January 28, 2025 presented back to [facility] for elective laparoscopy cholecystectomy. Patient was discharged home from [facility] after laparoscopic cholecystectomy. As per mother, patient does not have baseline history of any cardiac history. As per mother, patient was using marijuana. Mother denies any previous substance abuse besides marijuana. No specific family history is reported On January 23, 2025, labs in [facility] revealed creatinine of 0.84, hemoglobin of 15.2 and troponin (high sensitive) of <3. At that point EKG was normal WBC: 20.1 - 19.0 - 22.7 - 20.6 - 28.4 - 20.3 - 21.0 - 25.2 - 29.8 - 29.5 - 29.0 - 26.2 - 21.7 - 19.7 - 17.7 - 15.3 - 12.2 - 10.5 - 11.2 - 13.0 - 10.7 - 9.0 - 9.0 - 10.3 - 10.3 - 10.1 - 11.0 - 12.4 - 13.0 - 12.0 - 15.1 - 13.8 Hemoglobin: 8.3 - 6.5 - 12.1 - 11.1 - 12.1 - 9.3 - 9.2 - 9.1 - 8.4 - 9.0 - 9.5 - 8.8 - 8.4 - 8.0 - 9.7 - 9.6 - 9.8 - 9.6 - 9.7 - 9.8 - 9.1 - 8.5 - 8.8 - 8.9 - 8.7 - 8.8 - 9.7 - 9.1 - 7.9 - 8.2 - 10.1 - 9.5 Fibrinogen: 108 - 316 - 537 - 689 - >860 Creatinine: 4.02 - 3.78 - 3.90 - 3.95 - 4.34 - 5.44 - 6.05 - 6.73 - 7.31 - 7.77 - 6.64 - 7.30 - 4.91 - 5.32 - 7.40 - 5.98 - 7.66 - 6.28 - 7.71 - 8.67 - 6.87 - 5.62 - 7.59 - 8.95 - 7.51 - 9.04 - 6.23 - 7.09 - 5.33 - 6.90 - 4.95 - 6.31 - 7.51 Potassium: 5.6 - 4.6 - 4.8 - 3.9 - 2.9 - 2.9 - 3.6 - 3.8 - 4.9 - 5.4 - 6.0 - 5.1 - 5.3 - 6.1 - 6.0 - 4.6 - 4.4 - 4.3 - 3.5 - 3.4 - 3.7 - 4.5 - 5.7 - 5.2 - 4.0 - 3.8 - 4.1 - 4.5 - 4.9 - 4.7 - 4.6 - 4.4 - 4.6 - 3.7 - 3.5 - 4.5 AST/ALT: 676/700 - 2327/6 - 4636/2521 - -/1995 - 2500/1990 - 1780/1821 - 808/995 - 586/735 - 456/444 - 312/290 - 237/163 - 215/125 - 190/87 - 200/74 - 202/66 - 189/53 - 186/44 - 186/45 - 192/38 - 193/34 - 214/34 - 195/30 - 261/42 - 241/47 - 246/63 - 265/69 - 208/52 Lactic acid: 17.9 - 17.2 - 11.4 Troponin (high sensitive): 2973 - 2712 - 4364 - 7493 - 7474 TSH: 11.05 Urine Toxicology: positive for Fentanyl and Benzodiazepine Chest x-ray revealed: Lines and Tubes: Endotracheal tube projects 2.2 cm above the meghan. Right internal jugular central venous catheter tip projects over superior vena cava. Lungs: No focal consolidation. Low lung volumes. Pleura: No effusion. No pneumothorax. Cardiomediastinal contours: Unremarkable Bones: No acute osseous abnormality. IMPRESSION: Lines and tubes as above. Low lung volumes. Repeat chest x-ray revealed: IMPRESSION: Lines and tubes in satisfactory position. Mild increased pulmonary vascular congestion Repeat chest xry revealed: IMPRESSION: Lines and tubes in satisfactory position. Mild increased pulmonary vascular congestion Repeat chest xry revealed: IMPRESSION: 1. Low lung volumes with concomitant crowding of the pulmonary vasculature. 2. No evidence of focal consolidation. 3. Lines and tubes unchanged. Repeat chest xry revealed: IMPRESSION: 1. Slight interval retraction of the endotracheal tube such that the tip now projects approximately 4.7 cm above the level of the meghan. Remaining lines and tubes unchanged. 2. Otherwise no significant change compared to prior exam. Repeat chest xry revealed: IMPRESSION: 1. Slight interval advancement of endotracheal tube such that the tip now projects approximately 1.7 cm above the level of the meghan. Remaining lines and tubes unchanged. 2. Otherwise no significant change compared to prior exam. Repeat chest xry revealed: IMPRESSION: 1. Slight interval retraction of the endotracheal tube such that the tip now projects approximately 3.3 cm above the level of the meghan. Remaining lines and tubes unchanged. 2. No evidence of acute cardiopulmonary process. Repeat chest xry revealed: IMPRESSION: 1. Endotracheal tube in appropriate position. Remaining lines and tubes unchanged. 2. No evidence of acute cardiopulmonary process. Repeat chest xry revealed: IMPRESSION: 1. Small right pleural effusion. 2. Lines and tubes unchanged. Repeat chest xry revealed: IMPRESSION: 1. Small right pleural effusion. 2. Lines and tubes unchanged. Repeat chest xry revealed: IMPRESSION: 1. Small bilateral pleural effusions. 2. Lines and tubes unchanged. Repeat chest xry revealed: IMPRESSION: 1. Slight interval advancement of the endotracheal tube. Remaining lines and tubes unchanged. 2. No evidence of acute cardiopulmonary process. Repeat chest xry revealed: IMPRESSION: 1. Slight interval retraction of the endotracheal tube such that the tip now projects approximately 3.3 cm above the level of the meghan. Remaining lines and tubes unchanged. 2. No evidence of acute cardiopulmonary process. Repeat chest xry revealed: Bowel gas pattern is unremarkable. Enteric tube tip projects over the expected region of the stomach. The lung bases demonstrates bibasilar atelectasis. The lower pelvis is collimated from field of view. No acute osseous abnormality identified. Repeat chest xry revealed: Lines and Tubes: Endotracheal tube tip projects approximately 5.1 cm above the level of the meghan. Enteric catheter terminates within the gastric lumen. Right peripherally inserted central catheter tip and left subclavian central venous catheter tip project over the distal superior vena cava. Lungs: Clear Pleura: No effusion. No pneumothorax. Cardiomediastinal contours: Unremarkable Bones: Unremarkable IMPRESSION: 1. No radiographic evidence of acute cardiopulmonary abnormality. 2. Lines and tubes as above. Repeat chest xry revealed: IMPRESSION: 1. Stable position of the support lines and tubes. 2. Bibasilar airspace disease which may reflect atelectasis and/or pneumonia. Possible small bilateral pleural effusions. Repeat chest xry revealed: IMPRESSION: 1. Lines and tubes unchanged. 2. Persistently diminished lung volumes with concomitant exaggeration of the pulmonary vasculature. No evidence of acute cardiopulmonary process. Repeat chest xry revealed: IMPRESSION: 1. No acute cardiopulmonary disease. 2. Lines and tubes as above. Repeat chest xry revealed: IMPRESSION: 1. Intervally placed right IJ catheter projects in appropriate remaining support devices are stable.2. No other significant change from the previous study. Persistent low lung volumes with vascular crowding and basilar atelectasis. Repeat chest xry revealed: IMPRESSION: Heart is stable in size. There are low lung volumes with probable small left pleural effusion and bibasilar atelectasis. Support lines and tubes appear unchanged in satisfactory position. No pneumothorax. No significant interval change. Repeat chest xry revealed: IMPRESSION: Unchanged bibasilar opacities, likely atelectasis with small pleural effusions Repeat chest xry revealed: IMPRESSION: 1. No significant change from the previous study. Stable support devices. Persistent left pleural effusion and bibasilar airspace disease. Repeat chest xry revealed: IMPRESSION: 1. Interval removal of enteric catheter. Remaining Lines and tubes unchanged. 2. Otherwise, no significant change compared to prior exam allowing for differences in technique. Brain scan revealed: FINDINGS: Absence of cerebral blood flow is noted along with no brain parenchymal radiotracer uptake. Increased activity is seen in the central face likely representing vascular shunting consistent with the so-called "hot nose" sign. Findings suggest brain however clinical correlation is necessary. IMPRESSION: Findings described above, which would be consistent with brain in the appropriate clinical setting, however clinical correlation is needed. CT of the chest/abdomen/pelvis revealed: IMPRESSION: 1. Hepatic hematoma measuring up to approximately 8.6 cm in greatest dimension, as described above, with hemorrhage extending beyond the liver capsule and into the right pericolic gutter as well as into the pelvis. No definite active arterial bleeding is seen on this exam, although limited evaluation due to the timing of contrast, as this was not a CTA exam. 2. Postsurgical changes of cholecystectomy. 3. Dilated fluid-filled small bowel loops, may be due to postoperative ileus. No small bowel obstruction. 4. Small volume pneumoperitoneum, likely due to recent surgery. Small volume of gas are seen in the upper ventral abdomen from the recent surgery. 5. Dependent atelectasis in the lower lobes. Otherwise, no acute disease in the chest. 6. Endotracheal tube and enteric tube in place. 7. Atrophic right kidney incidentally noted. 8. Additional findings as described above. Critical findings Critical Result: Acute hepatic hematoma with hemorrhage extending beyond the liver capsule into the adjacent portions of the abdomen and into the pelvis as detailed above. Repeat CT of chest/abdomen/pelvis revealed: There is limited interpretation of the chest, abdomen and pelvis without administration of intravenous contrast. Endotracheal tube tip terminates just at the meghan / left main bronchus. Diffuse bilateral pulmonary airspace consolidation bilaterally significantly increased. Bilateral lower lobe lobar consolidation/ atelectasis, increased from prior. Small bilateral pleural effusions. There is extensive edema/ stranding within the upper anterior chest, neck region/supraclavicular region. There is some hyperdensity within this region which could represent components of hematoma / blood products. Heterogeneous appearance of the thyroid gland. Right IJ catheter terminating at the cavoatrial junction. Adrenal glands unremarkable in shape. Perisplenic hematoma. Interval postsurgical changes in the right upper quadrant of the abdomen. There appears to be surgicel/gaseous collection within the previous hematoma cavity, likely representing surgicel. There is a radiopaque density within the resection cavity as well which measures 6.2 x 4.6 cm.. Postoperative changes of the right anterior abdomen with soft tissue emphysema. Small amount of pneumoperitoneum Surgical drainage catheter terminating in the right upper quadrant of the abdomen Right renal parenchymal atrophy. Left kidney demonstrates perinephric edema / stranding. No left hydronephrosis. Nasogastric tube projects towards the distal stomach. Moderate distention small bowel loops. Rectal catheter. Moderate distention of the large bowel loops. Normal appendix. Abdominal aorta normal in caliber. Small amount of ascites fluid/ mesenteric edema. Bladder decompressed by Mora catheter. Soft tissue edema /anasarca. Mesenteric edema. Small amount of ascites fluid. The osseous structures are stable. IMPRESSION: Limited evaluation without contrast. Interval evacuation of the right upper quadrant hematoma. Surgicel within the resection cavity. No significant interval development of new hematoma. There are 2 radiopaque lap pads within the resection cavity . Findings reviewed with Dr. Ledesma at 11:51 a.m. on 01/30/2025 Perisplenic hematoma, similar to previous examination. Extensive bilateral pulmonary airspace consolidation, significantly increased from previous examination. Small bilateral pleural effusions. Right upper quadrant drainage catheter. Pneumoperitoneum. Soft tissue edema / anasarca. Small amount of ascites fluid/ mesenteric edema. Extensive edema within the anterior chest, neck region. Heterogeneous appearance thyroid gland. Other findings as described. CT of the head revealed: IMPRESSION: 1. No evidence of acute intracranial abnormality. Repeat CT of head revealed: FINDINGS: Cerebellar tonsilar herniation. There is sulcal and ventricular effacement. The basal cisterns are effaced. Loss of mario-white matter differentiation is noted. The skull and visible facial bones are intact. The paranasal sinuses, mastoid air cells and middle ear cavities are well-aerated. The soft tissues of the scalp are unremarkable. IMPRESSION: Diffuse cerebral edema with cerebellar tonsillar herniation. Recommend MRI brain for further evaluation. Repeat CT of head revealed: FINDINGS: There is diffuse low attenuation throughout the brain with increased effacement of the ventricles and complete sulcal effacement. There is cerebellar tonsillar herniation. The orbits are normal. There is moderate mucosal thickening within the paranasal sinuses and mastoid air cells. The soft tissues and osseous structures appear within normal limits. IMPRESSION: 1. Findings as above suggesting worsening diffuse cerebral edema in the setting of anoxic brain injury in the given clinical setting. Further clinical correlation is suggested. CT of Neck revealed: IMPRESSION: Limited evaluation without contrast. Extensive soft tissue edema within the neck extending into the anterior / upper chest and anterior mediastinum . Retropharyngeal edema. Heterogeneous appearance of the thyroid gland. Inferior cerebellar tonsillar herniation better seen on the prior CT Renal Ultrasound revealed: IMPRESSION: 1. Right kidney not visible. 2. Left kidney is enlarged. 3. No hydronephrosis. Venous duplex of lower ext revealed: IMPRESSION: NO SONOGRAPHIC EVIDENCE FOR DEEP VENOUS THROMBOSIS IN THE RIGHT LOWER EXTREMITY VEINS. Repeat (bilateral) Venous duplex of lower ext revealed: Impression: 1. No right or left femoropopliteal venous thrombosis. EEG reported: This is a remarkably abnormal EEG, this EEG seen in severe cerebral dysfunction due to metabolic/hypoxic encephalopathy or medication effects, unless this is caused by reversible etiology, this EEG is suggestive of a poor prognosis for meaningful recovery, please correlate clinically. Arrival EKG revealed sinus tachycardia with nonspecific ST-T changes Tele reveals sinus tachycardia Echocardiogram revealed: Technically limited study secondary to poor acoustic windows. Left ventricle: Left ventricle was normal-sized with normal systolic function. LVEF was 55-60%. No gross wall motion abnormality was seen. Right ventricle was mildly dilated with normal systolic function. Left atrium was normal-sized. Right atrium was mildly dilated. Aortic valve: Aortic valve was not well visualized. There was no aortic insufficiency/stenosis. There was no mitral regurgitation. There was trace tricuspid regurgitation. Pulmonary valve was not well visualized. IVC was not visualized. Right ventricular systolic pressure was assessed around 48 mm Hg. There was no pericardial effusion. Patient is a 24-year-old gentleman who presented with post arrest. It seems that the patient had hemorrhagic (intra-abdominal) presentation. Patient did have elective laparoscopic cholecystectomy the day before presentation. On the day of presentation, the patient was taken back to operating room and this time Laparotomy was done for hepatic hematoma. Patient does have multiorgan involvement. Clinically there is no brainstem reflexes. Shock liver/acute renal failure is considered. Troponin has been high. EKG did not reveal any STEMI. Presentation could be high troponin secondary to demand physiology. Patient does not have any risk factors for baseline coronary artery disease. In ideal scenario, ischemic workup/cardiac catheterization could be more revealing. Unfortunately, the patient does have acute renal failure which could be worsened by cardiac catheterization at this point. As there was no higher brain functions the suggestion is to wait and see if patient regains any higher brain function. It is of note that during cardiac catheterization, the patient may need some anticoagulation/antiplatelets. At this point patient is having significant anemia/bleeding and receiving blood transfusion and holding off of scenario forcing Anticoagulation/antiplatelets is advised. I had a long discussion with family members and Mother (repeatedly). Clinically patient has multiorgan failure. Secondary to active bleeding, we will avoid anticoagulation/antiplatelets for now. Being managed in ICU. Was taken to OR repeatedly. Still no reflexes. Echocardiogram revealed no WMA and also revealed good EF. It also revealed increased Pulmonary Artery Pressure in favor of component of Pulmonary Hypertension. Review of Echo images revealed good right ventricular systolic function. Not typical for Pulmonary Emboli. Still, PE cannot be ruled out. If PE is ruled out, then it is possible that patient had Pulmonary Hypertension from before (Baseline history of Asthma may actually reflect it). s/p PRBC transfusion (multiple). Being followed by Surgery, Nephrology, Hematology, Pulmonary, Neurology and GI. . Repeat imaging revealed cerebellar tonsillar herniation. Neurology diagnosed Hypoxic/Metabolic Encephalopathy also. EEG findings question meaningful recovery. Neurology declared patient: brain . Neurology second opinion was in favor of Anoxic/Hypoxic Encephalopathy. Repeat imaging of brain revealed worsening diffuse cerebral edema and also again revealed cerebellar tonsillar herniation. Family are contemplating Trach/PEG. Patient is seen by GI. s/p Tracheostomy. s/p PEG. s/p repeated PRBC transfusion. s/ p Arrest Intra-abdominal bleeding Hepatic hematoma Multiorgan failure, due to shock Shock liver Lactic Acidosis Acute renal failure Acute respiratory failure, on vent support Status post laparotomy Status post laparoscopic cholecystectomy Abnormal troponin, evaluated to reflect possible demand physiology History of gallstones History of asthma Obesity History of marijuana abuse Consumptive Coagulopathy / DIC Pulmonary Hypertension Cerebellar tonsillar Herniation. Encephalopathy, hypoxic/metabolic Renal failure, started on hemodialysis Brain scan questions brain Anoxic Encephalopathy s/p Tracheostomy s/p PEG Hypotension on Levophed, Cardiac suggestion for management: Manage in ICU Follow-up electrolytes and kidney function tests and correct abnormalities Evaluation and management of respiratory failure as per Pulmonary Evaluation and management of Cerebellar tonsillar herniation and worsening cerebral edema as per Neurology/surgery/primary team V/Q scan could not be completed Anoxic/Hypoxic Encephalopathy Echocardiogram revealed no WMA and also revealed good EF. It also revealed increased Pulmonary Artery Pressure in favor of component of Pulmonary Hypertension. Hematology follow up (to comment on prophylaxis / treatment of Pulmonary Emboli) Surgical follow up Nephrology follow up (started on hemodialysis) and Hematology follow up Patient is seen by GI On levophed: goal of MAP: above 55 mmHg On Midodrine: you can taper up to 10 mg TID DVT prophylaxis as per primary team (compression stocking Vs Lovenox..) Long-term prognosis depends on the above and most importantly regaining of the higher brain function: looks very grim Ischemic workup may be considered only after regaining higher brain function or any special change in clinical presentation Further evaluation and management depends on the above and clinical course A total of 75 minutes was spent reviewing the patient record, examining the patient, making a diagnostic and therapeutic plan, discussing this plan with medical personnel, following up on diagnostic studies and following the patient for clinical stability excluding any and all procedures. At least 50% of this time was spent in direct, [id number] contact. Thank you for allowing me to participate in this patient's care. Further recommendations will depend on patient's clinical course. Please do not hesitate to contact me if you have any questions or concerns. This medical document was created using electronic medical record system with [employer] computerized dictation system. Although this document has been carefully reviewed, there may still be some phonetic and typographical errors. These areas are purely typographical due to the imperfection of the software programs, and do not reflect any compromise in the patient's medical care. Dietary Evaluation Review Recommendations by RD: PPN/TPN Comments: 1) Increase TPN rate to meet at least 75% of estimated daily needs 2) Advance to renal cardiac diet when medically feasible, pending ST approval 3) Follow-up with cardiology, pulmonology, nephrology, neurology, and gastroenterology 4) Continue to monitor I&O, labs, and skin integrity Expected Outcomes/Goals: 1) nutritional support to meet at least 75% of estimated daily needs 2) labs and wound to improve 3) diet to advance 4) gradual wt loss 5) f/u in 2-3 days Plan discussed with: Other (nurse, primary team) KATHLEEN COHEN MD Feb 21, 2025 08:01
--- NOTE | 2025-02-21 08:06 | DVHPN2 ---
Progress Note Date Seen: Feb 21, 2025 Has the PT tested + for MRSA If YES, has PT been informed?: No Medical Necessity Reason Pt with a Central, PICC or Fol: Yes The following are medically ne: Mora Catheter Reason for mora catheter: Nakul. Abd Surgery, Strict I&O, Total Immobilization Subjective Review of Systems Pt condition unchanged. No events overnight. Per RN had BM, Levophed decreased dose to 4 mcg/kg and 260 mL u/o Objective vital signs Vital Sign Date Time Temp Pulse Resp B/P (MAP) Pulse Ox O2 Delivery O2 Flow Rate FiO2 02/21/25 06:45 98.1 77 12 91/49 (63) 98 208.6 02/21/25 06:27 30 02/21/25 05:58 Mechanical Ventilator+ Total Intake and Output 02/20/25 02/20/25 02/21/25 15:00 23:00 07:00 Intake Total 957.1 ml 992.389 ml 794.064 ml Output Total 160 ml 275 ml Balance 957.1 ml 832.389 ml 519.064 ml medications Current Medications Medications Dose Ordered Sig/Serenity Route Start Time Stop Time Status Last Admin Dose Admin Midazolam HCl 50 ml @ 1 mls/hr Q24H IV 01/29/25 14:15 01/29/25 15:56 5 MLS/HR Phenylephrine HCl 250 ml @ 30 mls/hr Q8H20M IV 01/29/25 19:30 01/30/25 01:39 116.25 MLS/HR Levalbuterol HCl 0.625 mg Q4HR PRN NEB 01/29/25 20:00 02/19/25 06:23 0.625 MG Ipratropium [place] 0.5 mg Q4HPRN PRN NEB 01/29/25 20:00 02/19/25 06:23 0.5 MG Epinephrine HCl 250 ml @ 7.5 mls/hr Q24H IV 01/30/25 00:15 Vasopressin 20 units/Sodium Chloride 100 ml @ 9 mls/hr Q11H7M IV 01/30/25 07:30 02/03/25 13:09 9 MLS/HR Amino Acids 0 ml @ 0 mls/hr PER PHARMACY IV 02/01/25 11:15 Diagnostic Test (Pha) 1 strip Q6HR 02/01/25 18:00 02/21/25 05:49 1 STRIP Insulin Human Regular FOLLOW SLIDING SCALE Q6HR SC 02/01/25 18:00 02/18/25 06:16 2 UNITS Dextrose 50 ml UD IV 02/01/25 12:30 Sodium Chloride 10 ml QSHIFT@10,22 IV 02/04/25 22:00 02/20/25 21:18 10 ML Neomycin/ Polymyxin/ Bacitracin 1 applic DAILY TOP 02/06/25 10:00 02/20/25 09:33 1 APPLIC Bumetanide 2 mg BIDD IV 02/06/25 18:00 02/21/25 05:48 2 MG Norepinephrine Bitartrate 250 ml @ 0.938 mls/ hr Q24H IV 02/07/25 11:30 02/20/25 21:37 9.375 MLS/HR Artificial Tears 1 drop Q4HP PRN EACHEYE 02/08/25 07:30 02/21/25 02:01 1 DROP Pantoprazole Sodium 40 mg Q12HR IV 02/08/25 22:00 02/20/25 21:18 40 MG Enteral Nutritional Formula 1,000 ml 20 NG 02/11/25 23:15 02/12/25 09:15 1,000 ML Epoetin Gunnar-epbx 8,000 unit MWF@2100 [place] 02/17/25 21:00 Hold 02/19/25 21:49 8,000 UNIT Piperacillin Sod/ Tazobactam Sod 100 ml @ 25 mls/hr Q12HR IV 02/19/25 22:00 02/20/25 21:19 25 MLS/HR Midodrine 5 mg TID@0600,1200,1800 PO 02/19/25 18:00 02/21/25 05:49 5 MG Dextrose/Sodium Chloride 1,000 ml @ 75 mls/hr [id number] IV 02/20/25 03:45 02/20/25 23:54 75 MLS/HR Examination Neuro. Unchanged. Dilated fixed pupils. No reflexes. CV. Hr 78. LATOYA 114/75, Levophed at 4 mcg/kg. Previous LSCV HD catheter site C/D/I. Right PC and PICC catheter exit sites remain C/D/I. Epistaxis, resolved. Some minimal blood during oral care. Pulmonary: Tracheostomy in place. C/D/I. Mechanical ventilator support 500/12/30%/+7. RR 12/min. Suction tubing with clear secretions. GI: Soft, obese, nondistended and non tender. Incisions and dressing C/D/I. PEG in place. Clean site. . Mora catheter in place. Clear yellow urine in collection bag Extremities. No edema Resolved facial and neck edema. Mild orbital edema Skin: Remains with jaundice. laboratory and microbiology Laboratory Tests 02/21/25 03:05 Test 02/21/25 03:05 Range/Units Serum Glucose 75 74-106 mg/dL Microbiology Date/Time Source Procedure Growth Status 02/19/25 11:44 Trachea Gram Stain - Final Resulted 02/19/25 11:44 Trachea Respiratory Culture - Preliminary Resulted 02/09/25 03:40 Blood Blood Culture - Final NO GROWTH AFTER 5 DAYS OF INCUBATION. 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 CT revealed cerebral edema and tonsillar herniation.EEG no electric activity. Cerebral perfusion study confirmed no perfusion radiographically consistent with brain which was concordant with initial clinical diagnosis and EEG. However, pt continues demonstrating brainstem function as he is breathing over vent set rate of 14. RR. There seems to be autonomic dysfunction. Pt's BP fluctuating and RR. F/U (3rd) CT brain worsening cerebral edema and tonsillar herniation. Mother and brother aware. CV: Hypotension. Levophed 5 mcg/kg. Midodrine 5 mg TID via PEG. D/W Dr. Hernandes. Will increase Midodrine to 10 mg TID. He believes it may be autonomic dysfunction from anoxic brain injury. Cardiology assistance appreciated. Mechanical DVT prophylaxis. Unlikely PE (can't rule it out) but patient oxygenating well, no tachycardia. Pulmonary hypertension possibly unknowingly preexistent. Duplex negative for DVT Pulmonary: VDRF. S/p tracheostomy. CXR no PTX. Low lung volumes, slight improvement. ATX and small pleural effusion. Sputum Cx GNR, GPC in pairs and rare yeast. Pending identification and sensitivity. Will inquire about empiric antifungal therapy ABG reviewed, respiratory alkalosis. Consider decreasing rate to 10. Continue ventilator. Appreciate pulmonary medicine assistance. Pulmonary medicine following. GI: Continue BID GI prophylaxis. Hepatic shock. Elevated LFTs. Increasing TB, Mostly direct. Cholestasis versus retained stone. Can't obtain MRCP. Initiate trickle feeding 10 mL/hr. Measure residual volume every 6 hrs. Hold for RV of 150 mL. . ARF/ATN secondary to hemorrhagic shock. D5/1/2 NS at 75 mL/hr. Strict I&O. Stable u/o. Mora to gravity. Appreciate nephrology assistance. Replace/correct electrolytes. HD per nephrology. Consider volume neutral HD. If possible. Heme/ID. Hgb 9.5, appropriate response after 1 u PRBC. VW Ag high. Hematology believes secondary to inflammatory response/reaction. Minimizing blood draw frequency to avoid worsening anemia. Repeat labs AM. Appreciate hematology assistance. Infectious workup. Continue Empiric Zosyn and Vancomycin. Endocrine: Tight glycemic control. Skin: Skin care and pressure ulcer precautions. Plan discussed with: Other (RN) My Orders My Orders Orders - JITENDRA ZAMORA MD Procedure Category Date Status Time Blood Culture [id number] 02/20/25 In Process 08:42 Tpn Per Pharmacy YANET 02/20/25 In Process 22:00 Chest Portable XY 02/22/25 Logged 04:00 Comprehensive LAB 02/22/25 Verified Metabolic Panel 05:00 Comprehensive LAB 02/23/25 Verified Metabolic Panel 05:00 Comprehensive LAB 02/24/25 Verified Metabolic Panel 05:00 Comprehensive LAB 02/25/25 Verified Metabolic Panel 05:00 Comprehensive LAB 02/26/25 Verified Metabolic Panel 05:00 Comprehensive LAB 02/27/25 Verified Metabolic Panel 05:00 Comprehensive LAB 02/28/25 Verified Metabolic Panel 05:00 Comprehensive LAB 03/01/25 Verified Metabolic Panel 05:00 Comprehensive LAB 03/02/25 Verified Metabolic Panel 05:00 Comprehensive LAB 03/03/25 Verified Metabolic Panel 05:00 Abg W/ Co-Ox RT 02/21/25 Logged 06:00 Dietary Evaluation Review Recommendations by RD: PPN/TPN Comments: 1) Increase TPN rate to meet at least 75% of estimated daily needs 2) Advance to renal cardiac diet when medically feasible, pending ST approval 3) Follow-up with cardiology, pulmonology, nephrology, neurology, and gastroenterology 4) Continue to monitor I&O, labs, and skin integrity Expected Outcomes/Goals: 1) nutritional support to meet at least 75% of estimated daily needs 2) labs and wound to improve 3) diet to advance 4) gradual wt loss 5) f/u in 2-3 days JITENDRA ZAMORA MD Feb 21, 2025 08:06
[2025-02-21 08:11] LABS: Base Excess -3.5 mmol/L (-2.0-3.0)
--- NOTE | 2025-02-21 10:56 | DVHPNRES ---
Progress Note Date Seen: Feb 21, 2025 Resident Creating Document: ARNOLD MUHAMMAD DALE Has the PT tested + for MRSA If YES, has PT been informed?: No Medical Necessity Reason Pt with a Central, PICC or Fol: Yes The following are medically ne: Mora Catheter Reason for mora catheter: Nakul. Abd Surgery, Strict I&O, Total Immobilization Subjective Review of Systems Patient seen and examined at the bedside. Patient is on mechanical ventilation, off from sedation. Objective vital signs Vital Sign Date Time Temp Pulse Resp B/P (MAP) Pulse Ox O2 Delivery O2 Flow Rate FiO2 02/21/25 10:00 12 99 Mechanical Ventilator+ 30 30 02/21/25 10:00 73 02/21/25 08:24 90/49 (63) 02/21/25 06:45 98.1 208.6 Total Intake and Output 02/20/25 02/20/25 02/21/25 15:00 23:00 07:00 Intake Total 957.1 ml 992.389 ml 794.064 ml Output Total 160 ml 275 ml Balance 957.1 ml 832.389 ml 519.064 ml medications Current Medications Medications Dose Ordered Sig/Serenity Route Start Time Stop Time Status Last Admin Dose Admin Midazolam HCl 50 ml @ 1 mls/hr Q24H IV 01/29/25 14:15 01/29/25 15:56 5 MLS/HR Phenylephrine HCl 250 ml @ 30 mls/hr Q8H20M IV 01/29/25 19:30 01/30/25 01:39 116.25 MLS/HR Levalbuterol HCl 0.625 mg Q4HR PRN NEB 01/29/25 20:00 02/19/25 06:23 0.625 MG Ipratropium [place] 0.5 mg Q4HPRN PRN NEB 01/29/25 20:00 02/19/25 06:23 0.5 MG Epinephrine HCl 250 ml @ 7.5 mls/hr Q24H IV 01/30/25 00:15 Vasopressin 20 units/Sodium Chloride 100 ml @ 9 mls/hr Q11H7M IV 01/30/25 07:30 02/03/25 13:09 9 MLS/HR Amino Acids 0 ml @ 0 mls/hr PER PHARMACY IV 02/01/25 11:15 Diagnostic Test (Pha) 1 strip Q6HR 02/01/25 18:00 02/21/25 05:49 1 STRIP Insulin Human Regular FOLLOW SLIDING SCALE Q6HR SC 02/01/25 18:00 02/18/25 06:16 2 UNITS Dextrose 50 ml UD IV 02/01/25 12:30 Sodium Chloride 10 ml QSHIFT@10,22 IV 02/04/25 22:00 02/21/25 10:01 10 ML Neomycin/ Polymyxin/ Bacitracin 1 applic DAILY TOP 02/06/25 10:00 02/21/25 10:03 1 APPLIC Bumetanide 2 mg BIDD IV 02/06/25 18:00 02/21/25 05:48 2 MG Norepinephrine Bitartrate 250 ml @ 0.938 mls/ hr Q24H IV 02/07/25 11:30 02/20/25 21:37 9.375 MLS/HR Artificial Tears 1 drop Q4HP PRN EACHEYE 02/08/25 07:30 02/21/25 02:01 1 DROP Pantoprazole Sodium 40 mg Q12HR IV 02/08/25 22:00 02/21/25 10:00 40 MG Enteral Nutritional Formula 1,000 ml 20 NG 02/11/25 23:15 02/21/25 09:28 1,000 ML Epoetin Fiona-epbx 8,000 unit MWF@2100 [place] 02/17/25 21:00 Hold 02/19/25 21:49 8,000 UNIT Piperacillin Sod/ Tazobactam Sod 100 ml @ 25 mls/hr Q12HR IV 02/19/25 22:00 02/21/25 10:03 25 MLS/HR Dextrose/Sodium Chloride 1,000 ml @ 75 mls/hr [id number] IV 02/20/25 03:45 02/20/25 23:54 75 MLS/HR Midodrine 10 mg TID@0600,1200,1800 PO 02/21/25 12:00 Examination General: RASS -5, afebrile, mucosae are moist Cardiovascular: Normal S1 and S2. No murmurs, gallops or rubs Respiratory: Mechanically assisted ventilation, equal bilateral airway entree. Clear lung sounds on auscultation Abdomen: Soft, nontender, no organomegaly, with surgical wound on abdomin MSK/skin: Mobilization of limbs cannot be evaluated. Skin is dry and warm. Neurological: Orientation cannot be assessed. Pupils are dilated and nonreactive to light, absent brainstem reflexes laboratory and microbiology Laboratory Tests 02/21/25 03:05 Test 02/21/25 03:05 Range/Units Serum Glucose 75 74-106 mg/dL Microbiology Date/Time Source Procedure Growth Status 02/20/25 09:30 Blood Blood Culture - Preliminary NO GROWTH AFTER 24 HOURS OF INCUBATION. Resulted 02/19/25 11:44 Trachea Gram Stain - Final Resulted 02/19/25 11:44 Trachea Respiratory Culture - Preliminary Resulted 02/02/25 22:00 Urine - Mora [place] Urine Culture - Final Complete 01/29/25 10:43 Sputum Gram Stain - Final Complete 01/29/25 10:43 Sputum Respiratory Culture - Final Complete Problem List/Assessment/Plan Problem List/Assessment/Plan This is a 24-year-old male with no significant past medical history underwent elective laparoscopic cholecystectomy on 01/28 at [facility] (due to cholelithiasis), on 2nd day postop at home became lethargic and subsequently coded. ROSC was achieved with CPR, abdominal CT scan showed intra-abdominal hematoma, underwent emergent laparotomy and drained about 500-750 thrombosed and dark blood. NEURO: Hypoxic encephalopathy, due to cardiac arrest Anoxic brain injury * RASS Score -5 * Head CT from 01/30 shows, Cerebellar tonsilar herniation. There is sulcal and ventricular effacement. The basal cisterns are effaced. Loss of mario-white matter differentiation is noted. * Head CT on 02/11 shows worsening diffuse cerebral edema in the setting of anoxic brain injury * BRNNM-brain imaging, shows absence blood flow, findings suggest brain in the appropriate clinical setting * Plan: transfering to LTAC CARDIOVASCULAR: NSTEMI possible type 2 Status post cardiac arrest Distributive shock (vasoplegia)/neurogenic shock/septic shock vasopressin * Cardiology on the board, recommended medical management * Echo from 01/30 shows,Technically limited study secondary to poor acoustic windows, normal LV size and function, 55-60% * Plan: Levophed, midodrine 5 mg t.i.d. PULMONARY: Acute hypoxic respiratory failure, likely due to anoxic brain injury Cxr showed bilateral mild pulmonary vascular congestion GASTROINTESTINAL: Acute transaminitis secondary to hypovolemic shock Coagulopathy Hypoalbuminemia Status post laparoscopic cholecystectomy Status post exploratory laparotomy for hemoperitoneum Transaminitis, likely due to TPN GENITOURINARY: HARLEEN secondary to hypovolemic shock * Nephrology on the board, performed dialysis on 02/03 * IV Bumex 2 mg b.i.d. METABOLIC: Severe anion gap metabolic acidosis due to lactic acidosis Hypernatremia Grade 2 obesity, BMI 35.7 kg per m2 Hypoglycemia HEME: Severe anemia, due to bleeding * Received 3 units of PRBC, 2 units of FFP and 1 unit of cryoprecipitate * Monitor H&H and epoetin fiona INFECTIOUS DISEASE: Leucocytosis Lactic acidosis * Urine culture, blood culture and respiratory culture shows no growth * On Zosyn and vancomycin DIET: TPN DVT prophylax: Hold GI prophylaxis: Protonix Code status: Full code LINES/DRAINS/ACCESS: ETT: Intubated on 01/29 IV access: Lt IJ placed on 01/29/25 left subclavian, tunneled dialysis catheter placed on 02/14 Drips: On Levophed Mora catheter: Placed on 01/29 DISPOSITION: ICU status Patient's status discussed with the patient's mother at the bedside. Critical care time spent more than 57 minutes, including patient care, chart review, and updating the family. Excluding any procedures. Case discussed with Dr. Kay Plan discussed with: Other Dietary Evaluation Review Recommendations by RD: PPN/TPN Comments: 1) Increase TPN rate to meet at least 75% of estimated daily needs 2) Advance to renal cardiac diet when medically feasible, pending ST approval 3) Follow-up with cardiology, pulmonology, nephrology, neurology, and gastroenterology 4) Continue to monitor I&O, labs, and skin integrity Expected Outcomes/Goals: 1) nutritional support to meet at least 75% of estimated daily needs 2) labs and wound to improve 3) diet to advance 4) gradual wt loss 5) f/u in 2-3 days ARNOLD MUHAMMAD Feb 21, 2025 10:56
[2025-02-21] MEDS: SODIUM CHL 0.9% 1000 ML BAG XX ONE (11:35)
--- NOTE | 2025-02-21 11:48 | DVHPN2 ---
Progress Note Date Seen: Feb 21, 2025 Has the PT tested + for MRSA If YES, has PT been informed?: No Medical Necessity Reason Pt with a Central, PICC or Fol: Yes The following are medically ne: Mora Catheter Reason for mora catheter: Nakul. Abd Surgery, Strict I&O, Total Immobilization Subjective Review of Systems: RESPIRATORY:Abnormal Other Systems: Patient seen and examined by myself today in follow-up, patient trached on the ventilator Patient examined hemodialysis, blood pressure stable Objective vital signs Vital Sign Date Time Temp Pulse Resp B/P (MAP) Pulse Ox O2 Delivery O2 Flow Rate FiO2 02/21/25 10:09 72 12 98/49 (65) 97 30 02/21/25 10:00 Mechanical Ventilator+ 02/21/25 06:45 98.1 208.6 Total Intake and Output 02/20/25 02/20/25 02/21/25 15:00 23:00 07:00 Intake Total 957.1 ml 992.389 ml 876.564 ml Output Total 160 ml 275 ml Balance 957.1 ml 832.389 ml 601.564 ml medications Current Medications Medications Dose Ordered Sig/Serenity Route Start Time Stop Time Status Last Admin Dose Admin Midazolam HCl 50 ml @ 1 mls/hr Q24H IV 01/29/25 14:15 01/29/25 15:56 5 MLS/HR Phenylephrine HCl 250 ml @ 30 mls/hr Q8H20M IV 01/29/25 19:30 01/30/25 01:39 116.25 MLS/HR Levalbuterol HCl 0.625 mg Q4HR PRN NEB 01/29/25 20:00 02/19/25 06:23 0.625 MG Ipratropium [place] 0.5 mg Q4HPRN PRN NEB 01/29/25 20:00 02/19/25 06:23 0.5 MG Epinephrine HCl 250 ml @ 7.5 mls/hr Q24H IV 01/30/25 00:15 Vasopressin 20 units/Sodium Chloride 100 ml @ 9 mls/hr Q11H7M IV 01/30/25 07:30 02/03/25 13:09 9 MLS/HR Amino Acids 0 ml @ 0 mls/hr PER PHARMACY IV 02/01/25 11:15 Diagnostic Test (Pha) 1 strip Q6HR 02/01/25 18:00 02/21/25 05:49 1 STRIP Insulin Human Regular FOLLOW SLIDING SCALE Q6HR SC 02/01/25 18:00 02/18/25 06:16 2 UNITS Dextrose 50 ml UD IV 02/01/25 12:30 Sodium Chloride 10 ml QSHIFT@10,22 IV 02/04/25 22:00 02/21/25 10:01 10 ML Neomycin/ Polymyxin/ Bacitracin 1 applic DAILY TOP 02/06/25 10:00 02/21/25 10:03 1 APPLIC Bumetanide 2 mg BIDD IV 02/06/25 18:00 02/21/25 05:48 2 MG Norepinephrine Bitartrate 250 ml @ 0.938 mls/ hr Q24H IV 02/07/25 11:30 02/20/25 21:37 9.375 MLS/HR Artificial Tears 1 drop Q4HP PRN EACHEYE 02/08/25 07:30 02/21/25 02:01 1 DROP Pantoprazole Sodium 40 mg Q12HR IV 02/08/25 22:00 02/21/25 10:00 40 MG Enteral Nutritional Formula 1,000 ml 20 NG 02/11/25 23:15 02/21/25 09:28 1,000 ML Epoetin Gunnar-epbx 8,000 unit MWF@2100 [place] 02/17/25 21:00 Hold 02/19/25 21:49 8,000 UNIT Piperacillin Sod/ Tazobactam Sod 100 ml @ 25 mls/hr Q12HR IV 02/19/25 22:00 02/21/25 10:03 25 MLS/HR Dextrose/Sodium Chloride 1,000 ml @ 75 mls/hr [id number] IV 02/20/25 03:45 02/20/25 23:54 75 MLS/HR Midodrine 10 mg TID@0600,1200,1800 PO 02/21/25 12:00 Examination: LUNGS:Normal, CVS:Normal, MSK:Abnormal laboratory and microbiology Laboratory Tests 02/21/25 03:05 Test 02/21/25 03:05 Range/Units Serum Glucose 75 74-106 mg/dL Microbiology Date/Time Source Procedure Growth Status 02/20/25 09:30 Blood Blood Culture - Preliminary NO GROWTH AFTER 24 HOURS OF INCUBATION. Resulted 02/19/25 11:44 Trachea Gram Stain - Final Resulted 02/19/25 11:44 Trachea Respiratory Culture - Preliminary Resulted 02/02/25 22:00 Urine - Mora [place] Urine Culture - Final Complete 01/29/25 10:43 Sputum Gram Stain - Final Complete 01/29/25 10:43 Sputum Respiratory Culture - Final Complete Problem List/Assessment/Plan Problem List/Assessment/Plan Acute kidney injury likely ischemic ATN in the setting of shock, FeNa > 2%, nonoliguric Acute respiratory failure, patient is trached on the ventilator Status post cardiac arrest Anoxic encephalopathy Hyperkalemia secondary to above Metabolic acidosis anion gap secondary to lactic acidosis secondary to reduced perfusion from hemorrhage Hemodynamic shock from bleeding Acute blood loss anemia/post op Status post laparoscopic cholecystectomy on 01/28/25 [facility] Status post ex lap, 01/29 Positive troponins NSTEMI--likely demand ischemia Shock liver Vitamin-D deficiency Status post tracheostomy and gastric tube placement 02/19 Recommendations Continue with UF to 3 L as tolerated Epogen 86831 subQ 3 times weekly Albumin 25% p.r.n. hemodialysis Increased urine output Mora catheter strict I&Os Vitamin-D replacement Packed red blood cell transfusion p.r.n. IV antibiotics IV pressors for blood pressure support We will continue to follow . Total care time 25 minute minutes I discussed my plan of care with mother and the primary nurse at the bedside Plan discussed with: Other (Mother and nurse) My Orders My Orders Orders - FELICIANO KHAN MD Procedure Category Date Status Time Hemodialysis Orders ORDERS 02/21/25 Transmitted 07:00 Dialysis Nursing YANET 02/21/25 In Process Message 07:00 Document Fluid Input YANET 02/21/25 In Process And Outpu 07:00 Epoetin Gunnar-Epbx PHA 02/21/25 In Process (Retacrit) 21:00 Dietary Evaluation Review Recommendations by RD: PPN/TPN Comments: 1) Increase TPN rate to meet at least 75% of estimated daily needs 2) Advance to renal cardiac diet when medically feasible, pending ST approval 3) Follow-up with cardiology, pulmonology, nephrology, neurology, and gastroenterology 4) Continue to monitor I&O, labs, and skin integrity Expected Outcomes/Goals: 1) nutritional support to meet at least 75% of estimated daily needs 2) labs and wound to improve 3) diet to advance 4) gradual wt loss 5) f/u in 2-3 days FELICIANO KHAN MD Feb 21, 2025 11:48
[2025-02-21] MEDS: MIDODRINE HCL 10 MG TAB PO SCH (12:09)
[2025-02-21] MEDS: ALBUMIN 25% 100 ML IV ONE (12:10)
[2025-02-21] MEDS: EPOETIN ALFA-EPBX 10,000 UNIT/1ML VIAL SC ONE (21:28)
[2025-02-22] VITALS (111 sets, daily range): BP systolic 76–128; BP diastolic 35–87; PULSE 68–89; RESP 9–17; TEMP 97.7–98.6; O2SAT 90–99
[2025-02-22 03:49] LABS: Albumin 3.9 g/dL (3.2-4.8); Anion Gap 17 (5-15); BUN/Creatinine Ratio 8.3 (10.0-20.0); Calcium 9.6 mg/dL (8.7-10.4); Carbon Dioxide 26 mmol/L (20-31); Chloride 100 mmol/L (98-107); Glucose 83 mg/dL (74-106); Magnesium 2.2 mg/dL (1.6-2.6); Potassium 3.7 mmol/L (3.5-5.1); Sodium 143 mmol/L (136-145); Total Protein 7.4 g/dL (5.7-8.2)
[2025-02-22 03:51] LABS: Alanine Aminotransferase 46 U/L (7-40); Alkaline Phosphatase 958 U/L (46-116); Bilirubin, Total 7.8 mg/dL (0.2-1.0); Blood Urea Nitrogen 50 mg/dL (9-23)
--- NOTE | 2025-02-22 06:34 | DVHPN2 ---
Progress Note - Dictate Date Seen: Feb 22, 2025 Has the PT tested + for MRSA If YES, has PT been informed?: No Medical Necessity Reason Pt with a Central, PICC or Fol: Yes The following are medically ne: Mora Catheter Reason for mora catheter: Nakul. Abd Surgery, Strict I&O, Total Immobilization vital signs Vital Sign Date Time Temp Pulse Resp B/P (MAP) Pulse Ox O2 Delivery O2 Flow Rate FiO2 02/22/25 06:15 97.9 70 10 87/47 (60) 94 208.2 02/22/25 05:49 30 02/22/25 05:49 Mechanical Ventilator+ Total Intake and Output 02/21/25 02/21/25 02/22/25 15:00 23:00 07:00 Intake Total 865.00 ml 766.438 ml 830.252 ml Output Total 2220 ml 150 ml Balance 865.00 ml -1453.562 ml 680.252 ml medications Current Medications Medications Dose Ordered Sig/Serenity Route Start Time Stop Time Status Last Admin Dose Admin Phenylephrine HCl 250 ml @ 30 mls/hr Q8H20M IV 01/29/25 19:30 01/30/25 01:39 116.25 MLS/HR Levalbuterol HCl 0.625 mg Q4HR PRN NEB 01/29/25 20:00 02/22/25 06:31 0.625 MG Ipratropium Ackley 0.5 mg Q4HPRN PRN NEB 01/29/25 20:00 02/22/25 06:31 0.5 MG Epinephrine HCl 250 ml @ 7.5 mls/hr Q24H IV 01/30/25 00:15 Vasopressin 20 units/Sodium Chloride 100 ml @ 9 mls/hr Q11H7M IV 01/30/25 07:30 02/03/25 13:09 9 MLS/HR Dextrose 50 ml UD IV 02/01/25 12:30 Sodium Chloride 10 ml QSHIFT@10,22 IV 02/04/25 22:00 02/21/25 21:28 10 ML Neomycin/ Polymyxin/ Bacitracin 1 applic DAILY TOP 02/06/25 10:00 02/21/25 10:03 1 APPLIC Bumetanide 2 mg BIDD IV 02/06/25 18:00 02/22/25 05:37 2 MG Norepinephrine Bitartrate 250 ml @ 0.938 mls/ hr Q24H IV 02/07/25 11:30 02/21/25 18:09 11.25 MLS/HR Artificial Tears 1 drop Q4HP PRN EACHEYE 02/08/25 07:30 02/21/25 21:29 1 DROP Pantoprazole Sodium 40 mg Q12HR IV 02/08/25 22:00 02/21/25 21:28 40 MG Enteral Nutritional Formula 1,000 ml 20 NG 02/11/25 23:15 02/21/25 09:28 1,000 ML Epoetin Gunnar-epbx 8,000 unit MWF@2100 SC 02/17/25 21:00 Hold 02/19/25 21:49 8,000 UNIT Piperacillin Sod/ Tazobactam Sod 100 ml @ 25 mls/hr Q12HR IV 02/19/25 22:00 02/21/25 21:28 25 MLS/HR Dextrose/Sodium Chloride 1,000 ml @ 75 mls/hr [id number] IV 02/20/25 03:45 02/22/25 01:43 75 MLS/HR Midodrine 10 mg TID@0600,1200,1800 PO 02/21/25 12:00 02/22/25 05:37 10 MG laboratory and microbiology Laboratory Tests 02/22/25 02:25 02/21/25 03:05 Test 02/22/25 02:25 Range/Units Serum Glucose 83 74-106 mg/dL Assessment/Plan Still in ICU. On vent support. No gross higher brain reflexes. Pupils are dilated and fixed. Anoxic/Hypoxic Encephalopathy No reported arrhythmia overnight s/p Tracheostomy s/p PEG placement Back on Levophed Had Hemodialysis yesterday s/p PRBC transfusion yesterday On Midodrine Echocardiogram revealed no WMA and also revealed good EF. It also revealed increased Pulmonary Artery Pressure in favor of component of Pulmonary Hypertension. s/p Hemodialysis Received blood and platelet transfusion repeatedly Patient is a 24-year-old gentleman who was originally brought to the hospital for post arrest. Patient is seen in postop area. Patient is intubated and on multiple pressor supports. Patient is not source of history. Information was obtained by reviewing the chart, talking to patient's family/mother and communicating with staff and reviewing outside records ([facility]). Patient did have elective outpatient laparoscopic cholecystectomy in [facility] on January 28 2025. As per mother, after going home, patient was feeling very hungry and was eating and drinking a lot. He started feeling abdominal pain with nausea at night and in the morning was short of breath. As per mother: patient has stopped breathing in the morning and family called 911. As per mother, as per guidance of 911, family started CPR until EMS arrived. Patient was intubated and was brought to the hospital by EMS. Since arrival to [facility], patient was seen by surgeon who took the patient to operating room and performed laparotomy (there was hepatic hematoma). Postoperatively, the patient has remained hypotensive. There is signs for multiorgan involvement. Patient was not alert and did not complain of any chest pains. Labs revealed increased troponin. Cardiology is involved for cardiac aspects of care and abnormal troponin. First available EKG reveals sinus tachycardia with no specific ST-T changes. Telemetry had revealed sinus tachycardia throughout the stay. Patient is found to have significant anemia and is receiving blood transfusion at the time of evaluation. It is of note that at the time of evaluation patient does not have any reflexes. Intubated. Mucosa pale. Dilated and fixed pupils, Scattered rhonchi in the lungs. Cardiac: Tachycardic. No murmur. Abdomen is covered by dressing. Extremities do not reveal any edema. Dorsalis pedis is 1+ bilateral. Patient does not respond to any stimuli. Reported past medical history includes asthma and obesity. Reportedly, on January 23, 2025: Patient presented to [facility] for abdominal pain/nausea/vomiting. At that point the problems were ongoing for few weeks. In [facility], CT of the abdomen and MRCP were performed. Patient was seen by GI/surgery. Patient was found to have gallstones. Patient was discharged and later on January 28, 2025 presented back to [facility] for elective laparoscopy cholecystectomy. Patient was discharged home from [facility] after laparoscopic cholecystectomy. As per mother, patient does not have baseline history of any cardiac history. As per mother, patient was using marijuana. Mother denies any previous substance abuse besides marijuana. No specific family history is reported On January 23, 2025, labs in [facility] revealed creatinine of 0.84, hemoglobin of 15.2 and troponin (high sensitive) of <3. At that point EKG was normal WBC: 20.1 - 19.0 - 22.7 - 20.6 - 28.4 - 20.3 - 21.0 - 25.2 - 29.8 - 29.5 - 29.0 - 26.2 - 21.7 - 19.7 - 17.7 - 15.3 - 12.2 - 10.5 - 11.2 - 13.0 - 10.7 - 9.0 - 9.0 - 10.3 - 10.3 - 10.1 - 11.0 - 12.4 - 13.0 - 12.0 - 15.1 - 13.8 - 14.9 Hemoglobin: 8.3 - 6.5 - 12.1 - 11.1 - 12.1 - 9.3 - 9.2 - 9.1 - 8.4 - 9.0 - 9.5 - 8.8 - 8.4 - 8.0 - 9.7 - 9.6 - 9.8 - 9.6 - 9.7 - 9.8 - 9.1 - 8.5 - 8.8 - 8.9 - 8.7 - 8.8 - 9.7 - 9.1 - 7.9 - 8.2 - 10.1 - 9.5 - 99.7 Fibrinogen: 108 - 316 - 537 - 689 - >860 Creatinine: 4.02 - 3.78 - 3.90 - 3.95 - 4.34 - 5.44 - 6.05 - 6.73 - 7.31 - 7.77 - 6.64 - 7.30 - 4.91 - 5.32 - 7.40 - 5.98 - 7.66 - 6.28 - 7.71 - 8.67 - 6.87 - 5.62 - 7.59 - 8.95 - 7.51 - 9.04 - 6.23 - 7.09 - 5.33 - 6.90 - 4.95 - 6.31 - 7.51 - 6.00 Potassium: 5.6 - 4.6 - 4.8 - 3.9 - 2.9 - 2.9 - 3.6 - 3.8 - 4.9 - 5.4 - 6.0 - 5.1 - 5.3 - 6.1 - 6.0 - 4.6 - 4.4 - 4.3 - 3.5 - 3.4 - 3.7 - 4.5 - 5.7 - 5.2 - 4.0 - 3.8 - 4.1 - 4.5 - 4.9 - 4.7 - 4.6 - 4.4 - 4.6 - 3.7 - 3.5 - 4.5 - 3.7 AST/ALT: 676/700 - 2327/6 - 4636/2521 - -/1995 - 2500/1989 - 1780/1821 - 808/995 - 586/735 - 456/444 - 312/290 - 237/163 - 215/125 - 190/87 - 200/74 - 202/66 - 189/53 - 186/44 - 186/45 - 192/38 - 193/34 - 214/34 - 195/30 - 261/42 - 241/47 - 246/63 - 265/69 - 208/52 - 177/46 Lactic acid: 17.9 - 17.2 - 11.4 Troponin (high sensitive): 6053 - 3393 - 1424 - 5341 - 6034 TSH: 11.05 Urine Toxicology: positive for Fentanyl and Benzodiazepine Chest x-ray revealed: Lines and Tubes: Endotracheal tube projects 2.2 cm above the meghan. Right internal jugular central venous catheter tip projects over superior vena cava. Lungs: No focal consolidation. Low lung volumes. Pleura: No effusion. No pneumothorax. Cardiomediastinal contours: Unremarkable Bones: No acute osseous abnormality. IMPRESSION: Lines and tubes as above. Low lung volumes. Repeat chest x-ray revealed: IMPRESSION: Lines and tubes in satisfactory position. Mild increased pulmonary vascular congestion Repeat chest xry revealed: IMPRESSION: Lines and tubes in satisfactory position. Mild increased pulmonary vascular congestion Repeat chest xry revealed: IMPRESSION: 1. Low lung volumes with concomitant crowding of the pulmonary vasculature. 2. No evidence of focal consolidation. 3. Lines and tubes unchanged. Repeat chest xry revealed: IMPRESSION: 1. Slight interval retraction of the endotracheal tube such that the tip now projects approximately 4.7 cm above the level of the meghan. Remaining lines and tubes unchanged. 2. Otherwise no significant change compared to prior exam. Repeat chest xry revealed: IMPRESSION: 1. Slight interval advancement of endotracheal tube such that the tip now projects approximately 1.7 cm above the level of the meghan. Remaining lines and tubes unchanged. 2. Otherwise no significant change compared to prior exam. Repeat chest xry revealed: IMPRESSION: 1. Slight interval retraction of the endotracheal tube such that the tip now projects approximately 3.3 cm above the level of the meghan. Remaining lines and tubes unchanged. 2. No evidence of acute cardiopulmonary process. Repeat chest xry revealed: IMPRESSION: 1. Endotracheal tube in appropriate position. Remaining lines and tubes unchanged. 2. No evidence of acute cardiopulmonary process. Repeat chest xry revealed: IMPRESSION: 1. Small right pleural effusion. 2. Lines and tubes unchanged. Repeat chest xry revealed: IMPRESSION: 1. Small right pleural effusion. 2. Lines and tubes unchanged. Repeat chest xry revealed: IMPRESSION: 1. Small bilateral pleural effusions. 2. Lines and tubes unchanged. Repeat chest xry revealed: IMPRESSION: 1. Slight interval advancement of the endotracheal tube. Remaining lines and tubes unchanged. 2. No evidence of acute cardiopulmonary process. Repeat chest xry revealed: IMPRESSION: 1. Slight interval retraction of the endotracheal tube such that the tip now projects approximately 3.3 cm above the level of the meghan. Remaining lines and tubes unchanged. 2. No evidence of acute cardiopulmonary process. Repeat chest xry revealed: Bowel gas pattern is unremarkable. Enteric tube tip projects over the expected region of the stomach. The lung bases demonstrates bibasilar atelectasis. The lower pelvis is collimated from field of view. No acute osseous abnormality identified. Repeat chest xry revealed: Lines and Tubes: Endotracheal tube tip projects approximately 5.1 cm above the level of the meghan. Enteric catheter terminates within the gastric lumen. Right peripherally inserted central catheter tip and left subclavian central venous catheter tip project over the distal superior vena cava. Lungs: Clear Pleura: No effusion. No pneumothorax. Cardiomediastinal contours: Unremarkable Bones: Unremarkable IMPRESSION: 1. No radiographic evidence of acute cardiopulmonary abnormality. 2. Lines and tubes as above. Repeat chest xry revealed: IMPRESSION: 1. Stable position of the support lines and tubes. 2. Bibasilar airspace disease which may reflect atelectasis and/or pneumonia. Possible small bilateral pleural effusions. Repeat chest xry revealed: IMPRESSION: 1. Lines and tubes unchanged. 2. Persistently diminished lung volumes with concomitant exaggeration of the pulmonary vasculature. No evidence of acute cardiopulmonary process. Repeat chest xry revealed: IMPRESSION: 1. No acute cardiopulmonary disease. 2. Lines and tubes as above. Repeat chest xry revealed: IMPRESSION: 1. Intervally placed right IJ catheter projects in appropriate remaining support devices are stable.2. No other significant change from the previous study. Persistent low lung volumes with vascular crowding and basilar atelectasis. Repeat chest xry revealed: IMPRESSION: Heart is stable in size. There are low lung volumes with probable small left pleural effusion and bibasilar atelectasis. Support lines and tubes appear unchanged in satisfactory position. No pneumothorax. No significant interval change. Repeat chest xry revealed: IMPRESSION: Unchanged bibasilar opacities, likely atelectasis with small pleural effusions Repeat chest xry revealed: IMPRESSION: 1. No significant change from the previous study. Stable support devices. Persistent left pleural effusion and bibasilar airspace disease. Repeat chest xry revealed: IMPRESSION: 1. Interval removal of enteric catheter. Remaining Lines and tubes unchanged. 2. Otherwise, no significant change compared to prior exam allowing for differences in technique. Repeat chest xry revealed: IMPRESSION: Low lung volumes with bibasilar subsegmental atelectasis. Brain scan revealed: FINDINGS: Absence of cerebral blood flow is noted along with no brain parenchymal radiotracer uptake. Increased activity is seen in the central face likely representing vascular shunting consistent with the so-called "hot nose" sign. Findings suggest brain however clinical correlation is necessary. IMPRESSION: Findings described above, which would be consistent with brain in the appropriate clinical setting, however clinical correlation is needed. CT of the chest/abdomen/pelvis revealed: IMPRESSION: 1. Hepatic hematoma measuring up to approximately 8.6 cm in greatest dimension, as described above, with hemorrhage extending beyond the liver capsule and into the right pericolic gutter as well as into the pelvis. No definite active arterial bleeding is seen on this exam, although limited evaluation due to the timing of contrast, as this was not a CTA exam. 2. Postsurgical changes of cholecystectomy. 3. Dilated fluid-filled small bowel loops, may be due to postoperative ileus. No small bowel obstruction. 4. Small volume pneumoperitoneum, likely due to recent surgery. Small volume of gas are seen in the upper ventral abdomen from the recent surgery. 5. Dependent atelectasis in the lower lobes. Otherwise, no acute disease in the chest. 6. Endotracheal tube and enteric tube in place. 7. Atrophic right kidney incidentally noted. 8. Additional findings as described above. Critical findings Critical Result: Acute hepatic hematoma with hemorrhage extending beyond the liver capsule into the adjacent portions of the abdomen and into the pelvis as detailed above. Repeat CT of chest/abdomen/pelvis revealed: There is limited interpretation of the chest, abdomen and pelvis without administration of intravenous contrast. Endotracheal tube tip terminates just at the meghan / left main bronchus. Diffuse bilateral pulmonary airspace consolidation bilaterally significantly increased. Bilateral lower lobe lobar consolidation/ atelectasis, increased from prior. Small bilateral pleural effusions. There is extensive edema/ stranding within the upper anterior chest, neck region/supraclavicular region. There is some hyperdensity within this region which could represent components of hematoma / blood products. Heterogeneous appearance of the thyroid gland. Right IJ catheter terminating at the cavoatrial junction. Adrenal glands unremarkable in shape. Perisplenic hematoma. Interval postsurgical changes in the right upper quadrant of the abdomen. There appears to be surgicel/gaseous collection within the previous hematoma cavity, likely representing surgicel. There is a radiopaque density within the resection cavity as well which measures 6.2 x 4.6 cm.. Postoperative changes of the right anterior abdomen with soft tissue emphysema. Small amount of pneumoperitoneum Surgical drainage catheter terminating in the right upper quadrant of the abdomen Right renal parenchymal atrophy. Left kidney demonstrates perinephric edema / stranding. No left hydronephrosis. Nasogastric tube projects towards the distal stomach. Moderate distention small bowel loops. Rectal catheter. Moderate distention of the large bowel loops. Normal appendix. Abdominal aorta normal in caliber. Small amount of ascites fluid/ mesenteric edema. Bladder decompressed by Mora catheter. Soft tissue edema /anasarca. Mesenteric edema. Small amount of ascites fluid. The osseous structures are stable. IMPRESSION: Limited evaluation without contrast. Interval evacuation of the right upper quadrant hematoma. Surgicel within the resection cavity. No significant interval development of new hematoma. There are 2 radiopaque lap pads within the resection cavity . Findings reviewed with Dr. Ledesma at 11:51 a.m. on 01/30/2025 Perisplenic hematoma, similar to previous examination. Extensive bilateral pulmonary airspace consolidation, significantly increased from previous examination. Small bilateral pleural effusions. Right upper quadrant drainage catheter. Pneumoperitoneum. Soft tissue edema / anasarca. Small amount of ascites fluid/ mesenteric edema. Extensive edema within the anterior chest, neck region. Heterogeneous appearance thyroid gland. Other findings as described. CT of the head revealed: IMPRESSION: 1. No evidence of acute intracranial abnormality. Repeat CT of head revealed: FINDINGS: Cerebellar tonsilar herniation. There is sulcal and ventricular effacement. The basal cisterns are effaced. Loss of mario-white matter differentiation is noted. The skull and visible facial bones are intact. The paranasal sinuses, mastoid air cells and middle ear cavities are well-aerated. The soft tissues of the scalp are unremarkable. IMPRESSION: Diffuse cerebral edema with cerebellar tonsillar herniation. Recommend MRI brain for further evaluation. Repeat CT of head revealed: FINDINGS: There is diffuse low attenuation throughout the brain with increased effacement of the ventricles and complete sulcal effacement. There is cerebellar tonsillar herniation. The orbits are normal. There is moderate mucosal thickening within the paranasal sinuses and mastoid air cells. The soft tissues and osseous structures appear within normal limits. IMPRESSION: 1. Findings as above suggesting worsening diffuse cerebral edema in the setting of anoxic brain injury in the given clinical setting. Further clinical correlation is suggested. CT of Neck revealed: IMPRESSION: Limited evaluation without contrast. Extensive soft tissue edema within the neck extending into the anterior / upper chest and anterior mediastinum . Retropharyngeal edema. Heterogeneous appearance of the thyroid gland. Inferior cerebellar tonsillar herniation better seen on the prior CT Renal Ultrasound revealed: IMPRESSION: 1. Right kidney not visible. 2. Left kidney is enlarged. 3. No hydronephrosis. Venous duplex of lower ext revealed: IMPRESSION: NO SONOGRAPHIC EVIDENCE FOR DEEP VENOUS THROMBOSIS IN THE RIGHT LOWER EXTREMITY VEINS. Repeat (bilateral) Venous duplex of lower ext revealed: Impression: 1. No right or left femoropopliteal venous thrombosis. EEG reported: This is a remarkably abnormal EEG, this EEG seen in severe cerebral dysfunction due to metabolic/hypoxic encephalopathy or medication effects, unless this is caused by reversible etiology, this EEG is suggestive of a poor prognosis for meaningful recovery, please correlate clinically. Arrival EKG revealed sinus tachycardia with nonspecific ST-T changes Tele reveals sinus tachycardia Echocardiogram revealed: Technically limited study secondary to poor acoustic windows. Left ventricle: Left ventricle was normal-sized with normal systolic function. LVEF was 55-60%. No gross wall motion abnormality was seen. Right ventricle was mildly dilated with normal systolic function. Left atrium was normal-sized. Right atrium was mildly dilated. Aortic valve: Aortic valve was not well visualized. There was no aortic insufficiency/stenosis. There was no mitral regurgitation. There was trace tricuspid regurgitation. Pulmonary valve was not well visualized. IVC was not visualized. Right ventricular systolic pressure was assessed around 48 mm Hg. There was no pericardial effusion. Patient is a 24-year-old gentleman who presented with post arrest. It seems that the patient had hemorrhagic (intra-abdominal) presentation. Patient did have elective laparoscopic cholecystectomy the day before presentation. On the day of presentation, the patient was taken back to operating room and this time Laparotomy was done for hepatic hematoma. Patient does have multiorgan involvement. Clinically there is no brainstem reflexes. Shock liver/acute renal failure is considered. Troponin has been high. EKG did not reveal any STEMI. Presentation could be high troponin secondary to demand physiology. Patient does not have any risk factors for baseline coronary artery disease. In ideal scenario, ischemic workup/cardiac catheterization could be more revealing. Unfortunately, the patient does have acute renal failure which could be worsened by cardiac catheterization at this point. As there was no higher brain functions the suggestion is to wait and see if patient regains any higher brain function. It is of note that during cardiac catheterization, the patient may need some anticoagulation/antiplatelets. At this point patient is having significant anemia/bleeding and receiving blood transfusion and holding off of scenario forcing Anticoagulation/antiplatelets is advised. I had a long discussion with family members and Mother (repeatedly). Clinically patient has multiorgan failure. Secondary to active bleeding, we will avoid anticoagulation/antiplatelets for now. Being managed in ICU. Was taken to OR repeatedly. Still no reflexes. Echocardiogram revealed no WMA and also revealed good EF. It also revealed increased Pulmonary Artery Pressure in favor of component of Pulmonary Hypertension. Review of Echo images revealed good right ventricular systolic function. Not typical for Pulmonary Emboli. Still, PE cannot be ruled out. If PE is ruled out, then it is possible that patient had Pulmonary Hypertension from before (Baseline history of Asthma may actually reflect it). s/p PRBC transfusion (multiple). Being followed by Surgery, Nephrology, Hematology, Pulmonary, Neurology and GI. . Repeat imaging revealed cerebellar tonsillar herniation. Neurology diagnosed Hypoxic/Metabolic Encephalopathy also. EEG findings question meaningful recovery. Neurology declared patient: brain . Neurology second opinion was in favor of Anoxic/Hypoxic Encephalopathy. Repeat imaging of brain revealed worsening diffuse cerebral edema and also again revealed cerebellar tonsillar herniation. Family are contemplating Trach/PEG. Patient is seen by GI. s/p Tracheostomy. s/p PEG. s/p repeated PRBC transfusion. s/ p Arrest Intra-abdominal bleeding Hepatic hematoma Multiorgan failure, due to shock Shock liver Lactic Acidosis Acute renal failure Acute respiratory failure, on vent support Status post laparotomy Status post laparoscopic cholecystectomy Abnormal troponin, evaluated to reflect possible demand physiology History of gallstones History of asthma Obesity History of marijuana abuse Consumptive Coagulopathy / DIC Pulmonary Hypertension Cerebellar tonsillar Herniation. Encephalopathy, hypoxic/metabolic Renal failure, started on hemodialysis Brain scan questions brain Anoxic Encephalopathy s/p Tracheostomy s/p PEG Hypotension on Levophed, Cardiac suggestion for management: Manage in ICU Follow-up electrolytes and kidney function tests and correct abnormalities Evaluation and management of respiratory failure as per Pulmonary Evaluation and management of Cerebellar tonsillar herniation and worsening cerebral edema as per Neurology/surgery/primary team V/Q scan could not be completed Anoxic/Hypoxic Encephalopathy Echocardiogram revealed no WMA and also revealed good EF. It also revealed increased Pulmonary Artery Pressure in favor of component of Pulmonary Hypertension. Hematology follow up (to comment on prophylaxis / treatment of Pulmonary Emboli) Surgical follow up Nephrology follow up (started on hemodialysis) and Hematology follow up Patient is seen by GI On levophed: goal of MAP: above 55 mmHg On Midodrine: you can taper up to 10 mg TID Florinef 0.1mg once daily for now DVT prophylaxis as per primary team (compression stocking Vs Lovenox..) Long-term prognosis depends on the above and most importantly regaining of the higher brain function: looks very grim Ischemic workup may be considered only after regaining higher brain function or any special change in clinical presentation Further evaluation and management depends on the above and clinical course A total of 75 minutes was spent reviewing the patient record, examining the patient, making a diagnostic and therapeutic plan, discussing this plan with medical personnel, following up on diagnostic studies and following the patient for clinical stability excluding any and all procedures. At least 50% of this time was spent in direct, [id number] contact. Thank you for allowing me to participate in this patient's care. Further recommendations will depend on patient's clinical course. Please do not hesitate to contact me if you have any questions or concerns. This medical document was created using electronic medical record system with [employer] computerized dictation system. Although this document has been carefully reviewed, there may still be some phonetic and typographical errors. These areas are purely typographical due to the imperfection of the software programs, and do not reflect any compromise in the patient's medical care. Dietary Evaluation Review Recommendations by RD: PPN/TPN Comments: 1) Increase TPN rate to meet at least 75% of estimated daily needs 2) Advance to renal cardiac diet when medically feasible, pending ST approval 3) Follow-up with cardiology, pulmonology, nephrology, neurology, and gastroenterology 4) Continue to monitor I&O, labs, and skin integrity Expected Outcomes/Goals: 1) nutritional support to meet at least 75% of estimated daily needs 2) labs and wound to improve 3) diet to advance 4) gradual wt loss 5) f/u in 2-3 days Plan discussed with: Other (primary rn ) TERELL MATHEWS Feb 22, 2025 06:34
--- NOTE | 2025-02-22 08:27 | DVH ---
CHEST RADIOGRAPH Indication: VDRF Technique: Single frontal view of the chest was obtained COMPARISON: XY CHEST PORTABLE on DOS: 02/20/25, XY CHEST PORTABLE on DOS: 02/19/25, XY CHEST XRAY 1 VIE W on DOS: 02/17/25, XY CHEST PORTABLE on DOS: 02/17/25, XY CHEST PORTABLE on DOS: 02/16/25 FINDINGS: Lines and Tubes: Tracheostomy and right central venous catheter in satisfactory position. Right PICC in satisfactory position. Lungs: Low lung volumes. Bibasilar subsegmental atelectasis. Pleura: No effusion. No pneumothorax. Cardiomediastinal contours: Unremarkable. Bones: Unremarkable. IMPRESSION: Low lung volumes with bibasilar subsegmental atelectasis.
--- NOTE | 2025-02-22 08:35 | DVHPN2 ---
Progress Note Date Seen: Feb 22, 2025 Has the PT tested + for MRSA If YES, has PT been informed?: No Medical Necessity Reason Pt with a Central, PICC or Fol: Yes The following are medically ne: Mora Catheter Reason for mora catheter: Nakul. Abd Surgery, Strict I&O, Total Immobilization Subjective Review of Systems Pt was seen last night. Mother and brother were at bedside. Updated about condition. Worsening TB. Cholestasis versus retained stone. However, can't r/o as RN relayed that can't undergo MRCP, according to radiology department. They were made aware about autonomic dysfunction probably being the cause for hypotension. Midodrine dose was increased. Per RN no significant changes other than high residual volume. TF held, and u/o 150 mL Objective vital signs Vital Sign Date Time Temp Pulse Resp B/P (MAP) Pulse Ox O2 Delivery O2 Flow Rate FiO2 02/22/25 06:45 98.1 78 10 80/42 (55) 95 208.6 02/22/25 06:30 30 02/22/25 05:49 Mechanical Ventilator+ Total Intake and Output 02/21/25 02/21/25 02/22/25 15:00 23:00 07:00 Intake Total 865.00 ml 766.438 ml 830.252 ml Output Total 2220 ml 150 ml Balance 865.00 ml -1453.562 ml 680.252 ml medications Current Medications Medications Dose Ordered Sig/Serenity Route Start Time Stop Time Status Last Admin Dose Admin Phenylephrine HCl 250 ml @ 30 mls/hr Q8H20M IV 01/29/25 19:30 01/30/25 01:39 116.25 MLS/HR Levalbuterol HCl 0.625 mg Q4HR PRN NEB 01/29/25 20:00 02/22/25 06:31 0.625 MG Ipratropium [place] 0.5 mg Q4HPRN PRN NEB 01/29/25 20:00 02/22/25 06:31 0.5 MG Epinephrine HCl 250 ml @ 7.5 mls/hr Q24H IV 01/30/25 00:15 Vasopressin 20 units/Sodium Chloride 100 ml @ 9 mls/hr Q11H7M IV 01/30/25 07:30 02/03/25 13:09 9 MLS/HR Dextrose 50 ml UD IV 02/01/25 12:30 Sodium Chloride 10 ml QSHIFT@10,22 IV 02/04/25 22:00 02/21/25 21:28 10 ML Neomycin/ Polymyxin/ Bacitracin 1 applic DAILY TOP 02/06/25 10:00 02/21/25 10:03 1 APPLIC Bumetanide 2 mg BIDD IV 02/06/25 18:00 02/22/25 05:37 2 MG Norepinephrine Bitartrate 250 ml @ 0.938 mls/ hr Q24H IV 02/07/25 11:30 02/21/25 18:09 11.25 MLS/HR Artificial Tears 1 drop Q4HP PRN EACHEYE 02/08/25 07:30 02/21/25 21:29 1 DROP Pantoprazole Sodium 40 mg Q12HR IV 02/08/25 22:00 02/21/25 21:28 40 MG Enteral Nutritional Formula 1,000 ml 20 NG 02/11/25 23:15 02/21/25 09:28 1,000 ML Epoetin Gunnar-epbx 8,000 unit MWF@2100 SC 02/17/25 21:00 Hold 02/19/25 21:49 8,000 UNIT Piperacillin Sod/ Tazobactam Sod 100 ml @ 25 mls/hr Q12HR IV 02/19/25 22:00 02/21/25 21:28 25 MLS/HR Dextrose/Sodium Chloride 1,000 ml @ 75 mls/hr [id number] IV 02/20/25 03:45 02/22/25 01:43 75 MLS/HR Midodrine 10 mg TID@0600,1200,1800 PO 02/21/25 12:00 02/22/25 05:37 10 MG Examination Neuro. Unchanged. Dilated fixed pupils. No reflexes. CV. Hr 80s. BP 86/47, Levophed at 6.4 mcg/kg. Previous LSCV HD catheter site C/D/I. Right PC and PICC catheter exit sites remain C/D/I. Some minimal blood during oral care. Pulmonary: Tracheostomy in place. C/D/I. Mechanical ventilator support 500/10/30%/+7. RR 12/min at the time of rounds on vent display. Suction tubing with clear secretions. GI: Soft, obese, nondistended and non tender. Incisions and dressing C/D/I. PEG in place. Clean site. TF on hold . Mora catheter in place. Clear yellow urine in collection bag Extremities. No edema Resolved facial and neck edema. Mild orbital edema Skin: Remains with jaundice. laboratory and microbiology Laboratory Tests 02/22/25 02:25 02/21/25 03:05 Test 02/22/25 02:25 Range/Units Serum Glucose 83 74-106 mg/dL Microbiology Date/Time Source Procedure Growth Status 02/20/25 09:30 Blood Blood Culture - Preliminary NO GROWTH AFTER 24 HOURS OF INCUBATION. 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 CT revealed cerebral edema and tonsillar herniation.EEG no electric activity. Cerebral perfusion study confirmed no perfusion radiographically consistent with brain which was concordant with initial clinical diagnosis and EEG. However, pt continues demonstrating brainstem function as he is breathing over vent set rate of 14. RR. There seems to be autonomic dysfunction. Pt's BP fluctuating and RR. F/U (3rd) CT brain worsening cerebral edema and tonsillar herniation. Mother and brother aware. CV: Persistent hypotension. Levophed 6.4 mcg/kg. Midodrine 5 mg TID via PEG. D/W Dr. Hernandes. Will increase Midodrine to 10 mg TID. He believes it may be autonomic dysfunction from anoxic brain injury. Cardiology assistance appreciated. Mechanical DVT prophylaxis. Unlikely PE (can't rule it out) but patient oxygenating well, no tachycardia. Pulmonary hypertension possibly unknowingly preexistent. Duplex negative for DVT Pulmonary: VDRF. S/p tracheostomy. CXR seems clear, pending official report. Sputum Cx Klebsiella pneumoniae sensitive to Zosyn. Pending ABG. Continue ventilator support. Appreciate pulmonary medicine assistance. Pulmonary medicine following. GI: Continue BID GI prophylaxis. Hepatic shock. Elevated LFTs. Increasing TB, Mostly direct. Cholestasis versus retained stone. Can't obtain MRCP. Asked RN to inquire about MRCP again and reasoning for not being able to do it. D/C TPN in event LFT's elevated secondary to cholestasis. TF on hold.. Hold for 6 hrs, check if any residual volume after being held. If no RV or low, restart at 10 mL/hr. Measure residual volume every 6 hrs. Hold for RV of 150 mL. : ARF/ATN secondary to hemorrhagic shock. D5/1/2 NS at 75 mL/hr. Strict I&O. Low u/o. Mora to gravity. Appreciate nephrology assistance. Replace/correct electrolytes. HD per nephrology. Consider volume neutral HD. If possible. Heme/ID: Pending CBC. VW Ag high. Hematology believes secondary to inflammatory response/reaction. Minimizing blood draw frequency to avoid worsening anemia. Repeat labs AM. Appreciate hematology assistance. Infectious workup. Continue Empiric Zosyn. Vanocmycin discontinues last night Endocrine: Tight glycemic control. Skin: Skin care and pressure ulcer precautions. Plan discussed with: Other (RN) My Orders My Orders Orders - JITENDRA ZAMORA MD Procedure Category Date Status Time Complete Blood Count LAB 02/22/25 Logged 08:00 Complete Blood Count LAB 02/23/25 Verified 08:00 Complete Blood Count LAB 02/24/25 Verified 08:00 Complete Blood Count LAB 02/25/25 Verified 08:00 Complete Blood Count LAB 02/26/25 Verified 08:00 Complete Blood Count LAB 02/27/25 Verified 08:00 Complete Blood Count LAB 02/28/25 Verified 08:00 Complete Blood Count LAB 03/01/25 Verified 08:00 Complete Blood Count LAB 03/02/25 Verified 08:00 Complete Blood Count LAB 03/03/25 Verified 08:00 Dietary Evaluation Review Recommendations by RD: PPN/TPN Comments: 1) Increase TPN rate to meet at least 75% of estimated daily needs 2) Advance to renal cardiac diet when medically feasible, pending ST approval 3) Follow-up with cardiology, pulmonology, nephrology, neurology, and gastroenterology 4) Continue to monitor I&O, labs, and skin integrity Expected Outcomes/Goals: 1) nutritional support to meet at least 75% of estimated daily needs 2) labs and wound to improve 3) diet to advance 4) gradual wt loss 5) f/u in 2-3 days JITENDRA ZAMORA MD Feb 22, 2025 08:35
[2025-02-22 08:42] LABS: Hematocrit 29.1 % (41.0-53.0); Hemoglobin 9.7 g/dL (13.5-17.5); Mean Corpuscular Hemoglobin 29.3 pg (28.0-32.0); Mean Corpuscular Volume 88.6 fL (80.0-100.0); Nucleated Red Blood Cells % 0.0 %
[2025-02-22] MEDS: FLUDROCORTISONE ACETATE 0.1 MG TAB PEG SCH (10:00)
--- NOTE | 2025-02-22 10:05 | DVHPN2 ---
Progress Note Date Seen: Feb 22, 2025 Has the PT tested + for MRSA If YES, has PT been informed?: No Medical Necessity Reason Pt with a Central, PICC or Fol: Yes The following are medically ne: Mora Catheter Reason for mora catheter: Nakul. Abd Surgery, Strict I&O, Total Immobilization Subjective Review of Systems: RESPIRATORY:Abnormal Other Systems: Patient seen and examined by myself today in follow-up, patient trached on the ventilator Objective vital signs Vital Sign Date Time Temp Pulse Resp B/P (MAP) Pulse Ox O2 Delivery O2 Flow Rate FiO2 02/22/25 06:45 98.1 78 10 80/42 (55) 95 208.6 02/22/25 06:30 30 02/22/25 05:49 Mechanical Ventilator+ Total Intake and Output 02/21/25 02/21/25 02/22/25 15:00 23:00 07:00 Intake Total 865.00 ml 766.438 ml 830.252 ml Output Total 2220 ml 150 ml Balance 865.00 ml -1453.562 ml 680.252 ml medications Current Medications Medications Dose Ordered Sig/Serenity Route Start Time Stop Time Status Last Admin Dose Admin Phenylephrine HCl 250 ml @ 30 mls/hr Q8H20M IV 01/29/25 19:30 01/30/25 01:39 116.25 MLS/HR Levalbuterol HCl 0.625 mg Q4HR PRN NEB 01/29/25 20:00 02/22/25 06:31 0.625 MG Ipratropium [place] 0.5 mg Q4HPRN PRN NEB 01/29/25 20:00 02/22/25 06:31 0.5 MG Epinephrine HCl 250 ml @ 7.5 mls/hr Q24H IV 01/30/25 00:15 Vasopressin 20 units/Sodium Chloride 100 ml @ 9 mls/hr Q11H7M IV 01/30/25 07:30 02/03/25 13:09 9 MLS/HR Dextrose 50 ml UD IV 02/01/25 12:30 Sodium Chloride 10 ml QSHIFT@10,22 IV 02/04/25 22:00 02/22/25 09:41 10 ML Neomycin/ Polymyxin/ Bacitracin 1 applic DAILY TOP 02/06/25 10:00 02/22/25 09:41 1 APPLIC Bumetanide 2 mg BIDD IV 02/06/25 18:00 02/22/25 05:37 2 MG Norepinephrine Bitartrate 250 ml @ 0.938 mls/ hr Q24H IV 02/07/25 11:30 02/21/25 18:09 11.25 MLS/HR Artificial Tears 1 drop Q4HP PRN EACHEYE 02/08/25 07:30 02/21/25 21:29 1 DROP Pantoprazole Sodium 40 mg Q12HR IV 02/08/25 22:00 02/22/25 09:40 40 MG Enteral Nutritional Formula 1,000 ml 20 NG 02/11/25 23:15 02/21/25 09:28 1,000 ML Epoetin Gunnar-epbx 8,000 unit MWF@2100 SC 02/17/25 21:00 Hold 02/19/25 21:49 8,000 UNIT Piperacillin Sod/ Tazobactam Sod 100 ml @ 25 mls/hr Q12HR IV 02/19/25 22:00 02/22/25 09:40 25 MLS/HR Dextrose/Sodium Chloride 1,000 ml @ 75 mls/hr [id number] IV 02/20/25 03:45 02/22/25 01:43 75 MLS/HR Midodrine 10 mg TID@0600,1200,1800 PO 02/21/25 12:00 02/22/25 05:37 10 MG Fludrocortisone Acetate 0.1 mg DAILY PEG 02/22/25 10:00 UNV Examination: LUNGS:Normal, CVS:Normal, MSK:Abnormal laboratory and microbiology Laboratory Tests 02/22/25 02:25 Test 02/22/25 02:25 Range/Units Serum Glucose 83 74-106 mg/dL Microbiology Date/Time Source Procedure Growth Status 02/20/25 09:30 Blood Blood Culture - Preliminary NO GROWTH AFTER 48 HOURS OF INCUBATION. Resulted 02/19/25 11:44 Trachea Gram Stain - Final Complete 02/19/25 11:44 Respiratory Culture - Final Klebsiella pneumoniae Complete 02/02/25 22:00 Urine - [place] Urine Culture - Final Complete 01/29/25 10:43 Sputum Gram Stain - Final Complete 01/29/25 10:43 Sputum Respiratory Culture - Final Complete Problem List/Assessment/Plan Problem List/Assessment/Plan Acute kidney injury likely ischemic ATN in the setting of shock, FeNa > 2%, nonoliguric Acute respiratory failure, patient is trached on the ventilator Status post cardiac arrest Anoxic encephalopathy Hyperkalemia secondary to above Metabolic acidosis anion gap secondary to lactic acidosis secondary to reduced perfusion from hemorrhage Hemodynamic shock from bleeding Acute blood loss anemia/post op Status post laparoscopic cholecystectomy on 01/28/25 [facility] Status post ex lap, 01/29 Positive troponins NSTEMI--likely demand ischemia Shock liver Vitamin-D deficiency Status post tracheostomy and gastric tube placement 02/19 Recommendations Next hemodialysis 02/24 Epogen [id number] subQ 3 times weekly Albumin 25% p.r.n. hemodialysis Bumex 0.5 mg/hr Mora catheter strict I&Os Vitamin-D replacement Packed red blood cell transfusion p.r.n. IV antibiotics Vasopressin drip for blood pressure support We will continue to follow . Total care time 25 minute minutes I discussed my plan of care with mother and the primary nurse at the bedside Plan discussed with: Other (Nurse, mother) My Orders My Orders Orders - FELICIANO KHAN MD Procedure Category Date Status Time Communication Order ORDERS 02/21/25 Transmitted 11:54 Dietary Evaluation Review Recommendations by RD: PPN/TPN Comments: 1) Increase TPN rate to meet at least 75% of estimated daily needs 2) Advance to renal cardiac diet when medically feasible, pending ST approval 3) Follow-up with cardiology, pulmonology, nephrology, neurology, and gastroenterology 4) Continue to monitor I&O, labs, and skin integrity Expected Outcomes/Goals: 1) nutritional support to meet at least 75% of estimated daily needs 2) labs and wound to improve 3) diet to advance 4) gradual wt loss 5) f/u in 2-3 days FELICIANO KHAN MD Feb 22, 2025 10:05
--- NOTE | 2025-02-22 11:49 | DVHPNRES ---
Progress Note Date Seen: Feb 22, 2025 Resident Creating Document: SAUL SCHWARTZ RESIDENT Has the PT tested + for MRSA If YES, has PT been informed?: No Medical Necessity Reason Pt with a Central, PICC or Fol: Yes The following are medically ne: Mora Catheter Reason for mora catheter: Nakul. Abd Surgery, Strict I&O, Total Immobilization Subjective Review of Systems Patient seen and evaluated in bedside today. Patient currently on mechanical ventilation, vent setting peep 7, tidal volume 500, FiO2 55, respiratory rate 10. Labs reviewed. Objective vital signs Vital Sign Date Time Temp Pulse Resp B/P (MAP) Pulse Ox O2 Delivery O2 Flow Rate FiO2 02/22/25 10:50 79/37 02/22/25 09:45 78 10 97 30 02/22/25 06:45 98.1 208.6 02/22/25 05:49 Mechanical Ventilator+ Total Intake and Output 02/21/25 02/21/25 02/22/25 15:00 23:00 07:00 Intake Total 865.00 ml 766.438 ml 830.252 ml Output Total 2220 ml 150 ml Balance 865.00 ml -1453.562 ml 680.252 ml medications Current Medications Medications Dose Ordered Sig/Serenity Route Start Time Stop Time Status Last Admin Dose Admin Phenylephrine HCl 250 ml @ 30 mls/hr Q8H20M IV 01/29/25 19:30 01/30/25 01:39 116.25 MLS/HR Levalbuterol HCl 0.625 mg Q4HR PRN NEB 01/29/25 20:00 02/22/25 06:31 0.625 MG Ipratropium [place] 0.5 mg Q4HPRN PRN NEB 01/29/25 20:00 02/22/25 06:31 0.5 MG Epinephrine HCl 250 ml @ 7.5 mls/hr Q24H IV 01/30/25 00:15 Dextrose 50 ml UD IV 02/01/25 12:30 Sodium Chloride 10 ml QSHIFT@10,22 IV 02/04/25 22:00 02/22/25 09:41 10 ML Neomycin/ Polymyxin/ Bacitracin 1 applic DAILY TOP 02/06/25 10:00 02/22/25 09:41 1 APPLIC Norepinephrine Bitartrate 250 ml @ 0.938 mls/ hr Q24H IV 02/07/25 11:30 02/21/25 18:09 11.25 MLS/HR Artificial Tears 1 drop Q4HP PRN EACHEYE 02/08/25 07:30 02/21/25 21:29 1 DROP Pantoprazole Sodium 40 mg Q12HR IV 02/08/25 22:00 02/22/25 09:40 40 MG Enteral Nutritional Formula 1,000 ml 20 NG 02/11/25 23:15 02/21/25 09:28 1,000 ML Epoetin [place]-epbx 8,000 unit MWF@2100 SC 02/17/25 21:00 Hold 02/19/25 21:49 8,000 UNIT Piperacillin Sod/ Tazobactam Sod 100 ml @ 25 mls/hr Q12HR IV 02/19/25 22:00 02/22/25 09:40 25 MLS/HR Dextrose/Sodium Chloride 1,000 ml @ 75 mls/hr [id number] IV 02/20/25 03:45 02/22/25 01:43 75 MLS/HR Midodrine 10 mg TID@0600,1200,1800 PO 02/21/25 12:00 02/22/25 05:37 10 MG Fludrocortisone Acetate 0.1 mg DAILY PEG 02/22/25 10:00 Vasopressin 20 units/Sodium Chloride 100 ml @ 9 mls/hr Q11H7M IV 02/22/25 10:00 Bumetanide 12.5 mg/Miscellaneous 50 ml @ 2 mls/hr Q24H IV 02/22/25 10:00 Examination General: RASS -5, afebrile, mucosae are moist Cardiovascular: Normal S1 and S2. No murmurs, gallops or rubs Respiratory: Mechanically assisted ventilation, equal bilateral airway entree. Clear lung sounds on auscultation Abdomen: Soft, nontender, no organomegaly, with surgical wound on abdomin MSK/skin: Mobilization of limbs cannot be evaluated. Skin is dry and warm. Neurological: Orientation cannot be assessed. Pupils are dilated and nonreactive to light, absent brainstem reflexes. laboratory and microbiology Laboratory Tests 02/22/25 02:25 Test 02/22/25 02:25 Range/Units Serum Glucose 83 74-106 mg/dL Microbiology Date/Time Source Procedure Growth Status 02/20/25 09:30 Blood Blood Culture - Preliminary NO GROWTH AFTER 48 HOURS OF INCUBATION. Resulted 02/19/25 11:44 Trachea Gram Stain - Final Complete 02/19/25 11:44 Respiratory Culture - Final Klebsiella pneumoniae Complete 02/02/25 22:00 Urine - [place] Urine Culture - Final Complete 01/29/25 10:43 Sputum Gram Stain - Final Complete 01/29/25 10:43 Sputum Respiratory Culture - Final Complete Problem List/Assessment/Plan Problem List/Assessment/Plan laboratory and microbiology Laboratory Tests 02/21/25 03:05 Test 02/21/25 03:05 Range/Units Serum Glucose 75 74-106 mg/dL Microbiology Date/Time Source Procedure Growth Status 02/20/25 09:30 Blood Blood Culture - Preliminary NO GROWTH AFTER 24 HOURS OF INCUBATION. Resulted 02/19/25 11:44 Trachea Gram Stain - Final Resulted 02/19/25 11:44 Trachea Respiratory Culture - Preliminary Resulted 02/02/25 22:00 Urine - [place] Urine Culture - Final Complete 01/29/25 10:43 Sputum Gram Stain - Final Complete 01/29/25 10:43 Sputum Respiratory Culture - Final Complete Problem List/Assessment/Plan Problem List/Assessment/Plan This is a 24-year-old male with no significant past medical history underwent elective laparoscopic cholecystectomy on 01/28 at [facility] (due to cholelithiasis), on 2nd day postop at home became lethargic and subsequently coded. ROSC was achieved with CPR, abdominal CT scan showed intra-abdominal hematoma, underwent emergent laparotomy and drained about 500-750 thrombosed and dark blood. NEURO: Hypoxic encephalopathy, due to cardiac arrest Anoxic brain injury * RASS Score -5 * Head CT from 01/30 shows, Cerebellar tonsilar herniation. There is sulcal and ventricular effacement. The basal cisterns are effaced. Loss of mario-white matter differentiation is noted. * Head CT on 02/11 shows worsening diffuse cerebral edema in the setting of anoxic brain injury * BRNNM-brain imaging, shows absence blood flow, findings suggest brain in the appropriate clinical setting * Plan: transfering to LTAC CARDIOVASCULAR: NSTEMI possible type 2 Status post cardiac arrest Distributive shock (vasoplegia)/neurogenic shock/septic shock vasopressin * Cardiology on the board, recommended medical management * Echo from 01/30 shows,Technically limited study secondary to poor acoustic windows, normal LV size and function, 55-60% * Plan: Levophed, midodrine 5 mg t.i.d. PULMONARY: Acute hypoxic respiratory failure, likely due to anoxic brain injury Cxr showed bilateral mild pulmonary vascular congestion GASTROINTESTINAL: Acute transaminitis secondary to hypovolemic shock Coagulopathy Hypoalbuminemia Status post laparoscopic cholecystectomy Status post exploratory laparotomy for hemoperitoneum Transaminitis, likely due to TPN GENITOURINARY: HARLEEN secondary to hypovolemic shock * Nephrology on the board, performed dialysis on 02/03 * IV Bumex 2 mg b.i.d. * Strict Is&Os * Albumin 25% p.r.n. hemodialysis METABOLIC: Severe anion gap metabolic acidosis due to lactic acidosis Hypernatremia Grade 2 obesity, BMI 35.7 kg per m2 Hypoglycemia Vitamin-D deficiency HEME: Severe anemia, due to bleeding * Received 3 units of PRBC, 2 units of FFP and 1 unit of cryoprecipitate * Monitor H&H and epoetin fiona INFECTIOUS DISEASE: Leucocytosis Lactic acidosis * Urine culture, blood culture and respiratory culture shows no growth * On Zosyn and vancomycin DIET: TPN DVT prophylax: Hold GI prophylaxis: Protonix Code status: Full code LINES/DRAINS/ACCESS: ETT: Intubated on 01/29 IV access: Lt IJ placed on 01/29/25 left subclavian, tunneled dialysis catheter placed on 02/14 Drips: On Levophed Mora catheter: Placed on 01/29 DISPOSITION: ICU status Patient's status discussed with the patient's mother at the bedside. Critical care time spent more than 59 minutes, including patient care, chart review, and updating the family. Excluding any procedures. Case discussed with Dr. Kay Plan discussed with: Other (Nurse) Dietary Evaluation Review Recommendations by RD: PPN/TPN Comments: 1) Increase TPN rate to meet at least 75% of estimated daily needs 2) Advance to renal cardiac diet when medically feasible, pending ST approval 3) Follow-up with cardiology, pulmonology, nephrology, neurology, and gastroenterology 4) Continue to monitor I&O, labs, and skin integrity Expected Outcomes/Goals: 1) nutritional support to meet at least 75% of estimated daily needs 2) labs and wound to improve 3) diet to advance 4) gradual wt loss 5) f/u in 2-3 days SAUL SCHWARTZ RESIDENT Feb 22, 2025 11:49
[2025-02-22] MEDS: VASOPRESSIN 20 UNITS in SODIUM CHL 0.9% 99 ML IV SCH (13:00)
[2025-02-22] MEDS: BUMETANIDE INJECTION 12.5 MG in GIVE UN-DILUTED 0 ML IV SCH (13:01)
--- NOTE | 2025-02-22 19:31 | DVHPN2 ---
Progress Note Date Seen: Feb 22, 2025 Has the PT tested + for MRSA If YES, has PT been informed?: No Medical Necessity Reason Pt with a Central, PICC or Fol: Yes The following are medically ne: Mora Catheter Reason for mora catheter: Nakul. Abd Surgery, Strict I&O, Total Immobilization Subjective Review of Systems Pt's mother and brother at the bedside. Updated about current condition. Aware may hypotension and clinical deterioration may be secondary to combination of autonomic dysfunction and PNA. Per RN tolerating TF for now. Residual volume 40mL. U/O 150 mL for shoft. Nephrology initiated Vasopressin and Bumex gtt. Per mother pt looks less jaundiced. It does appear he has less jaundice. Objective vital signs Vital Sign Date Time Temp Pulse Resp B/P (MAP) Pulse Ox O2 Delivery O2 Flow Rate FiO2 02/22/25 18:45 97.9 81 10 114/78 (90) 96 208.2 02/22/25 18:33 30 02/22/25 16:00 Mechanical Ventilator+ Total Intake and Output 02/21/25 02/21/25 02/22/25 15:00 23:00 07:00 Intake Total 865.00 ml 766.438 ml 917.440 ml Output Total 2220 ml 150 ml Balance 865.00 ml -1453.562 ml 767.440 ml medications Current Medications Medications Dose Ordered Sig/Serenity Route Start Time Stop Time Status Last Admin Dose Admin Phenylephrine HCl 250 ml @ 30 mls/hr Q8H20M IV 01/29/25 19:30 01/30/25 01:39 116.25 MLS/HR Levalbuterol HCl 0.625 mg Q4HR PRN NEB 01/29/25 20:00 02/22/25 06:31 0.625 MG Ipratropium [place] 0.5 mg Q4HPRN PRN NEB 01/29/25 20:00 02/22/25 06:31 0.5 MG Epinephrine HCl 250 ml @ 7.5 mls/hr Q24H IV 01/30/25 00:15 Dextrose 50 ml UD IV 02/01/25 12:30 Sodium Chloride 10 ml QSHIFT@10,22 IV 02/04/25 22:00 02/22/25 09:41 10 ML Neomycin/ Polymyxin/ Bacitracin 1 applic DAILY TOP 02/06/25 10:00 02/22/25 09:41 1 APPLIC Norepinephrine Bitartrate 250 ml @ 0.938 mls/ hr Q24H IV 02/07/25 11:30 02/22/25 12:17 14.063 MLS/HR Artificial Tears 1 drop Q4HP PRN EACHEYE 02/08/25 07:30 02/21/25 21:29 1 DROP Pantoprazole Sodium 40 mg Q12HR IV 02/08/25 22:00 02/22/25 09:40 40 MG Enteral Nutritional Formula 1,000 ml 20 NG 02/11/25 23:15 02/21/25 09:28 1,000 ML Epoetin Gunnar-epbx 8,000 unit MWF@2100 SC 02/17/25 21:00 Hold 02/19/25 21:49 8,000 UNIT Piperacillin Sod/ Tazobactam Sod 100 ml @ 25 mls/hr Q12HR IV 02/19/25 22:00 02/22/25 09:40 25 MLS/HR Dextrose/Sodium Chloride 1,000 ml @ 75 mls/hr [id number] IV 02/20/25 03:45 02/22/25 14:45 75 MLS/HR Midodrine 10 mg TID@0600,1200,1800 PO 02/21/25 12:00 02/22/25 18:32 10 MG Vasopressin 20 units/Sodium Chloride 100 ml @ 9 mls/hr Q11H7M IV 02/22/25 10:00 02/22/25 13:00 9 MLS/HR Bumetanide 12.5 mg/Miscellaneous 50 ml @ 2 mls/hr Q24H IV 02/22/25 10:00 02/22/25 13:01 2 MLS/HR Examination Neuro. Unchanged. Dilated fixed pupils. No reflexes. CV. Hr 80s. BP 111/79, Levophed at4 mcg/kg. Vasopressin .03 mcg. Previous LSCV HD catheter site C/D/I. Right PC and PICC catheter exit sites remain C/D/I. Pulmonary: Tracheostomy in place. C/D/I. Mechanical ventilator support 500/10/30%/+7. RR 12/min at the time on vent display. GI: Soft, obese, nondistended and non tender. Incisions and dressing C/D/I. PEG in place. Small amount of sanguineous drainage.Tolerating TF for now . Mora catheter in place. Clear yellow urine in collection bag Extremities. No edema Resolved facial and neck edema. Mild orbital edema Skin: Appears less jaundiced. laboratory and microbiology Laboratory Tests 02/22/25 02:25 Test 02/22/25 02:25 Range/Units Serum Glucose 83 74-106 mg/dL Microbiology Date/Time Source Procedure Growth Status 02/20/25 09:30 Blood Blood Culture - Preliminary NO GROWTH AFTER 48 HOURS OF INCUBATION. Resulted 02/19/25 11:44 Trachea Gram Stain - Final Complete 02/19/25 11:44 Respiratory Culture - Final Klebsiella pneumoniae Complete 02/02/25 22:00 Urine - [place] Urine Culture - Final Complete 01/29/25 10:43 Sputum Gram Stain - Final Complete 01/29/25 10:43 Sputum Respiratory Culture - Final Complete Labs and/or images reviewed: Labs reviewed by me, Image(s) reviewed by me Problem List/Assessment/Plan Problem List/Assessment/Plan Neuro: Appreciate neurology input and assistance. CT revealed cerebral edema and tonsillar herniation.EEG no electric activity. Cerebral perfusion study confirmed no perfusion radiographically consistent with brain which was concordant with initial clinical diagnosis and EEG. However, pt continues demonstrating brainstem function as he is breathing over vent set rate of 14. RR. There seems to be autonomic dysfunction. Pt's BP fluctuating and RR. F/U (3rd) CT brain worsening cerebral edema and tonsillar herniation. Mother and brother aware. CV: Hypotension, possible autonomic dysfunction and/or septic shock. Levophed 4 mcg/kg, vasopressin .03 mcg. Midodrine 10 mg TID via PEG. Fluodrocortisone initated. Discontinued as random cortisol level is not low. Cardiology assistance appreciated. Mechanical DVT prophylaxis. Unlikely PE (can't rule it out) but patient oxygenating well, no tachycardia. Pulmonary hypertension possibly unknowingly preexistent. Duplex negative for DVT Pulmonary: VDRF. S/p tracheostomy. CXR seems clear, pending official report. Sputum Cx Klebsiella pneumoniae sensitive to Zosyn. O2 Sat 97%. ABG tomorrow.. Continue ventilator support. Appreciate pulmonary medicine assistance. Pulmonary medicine following. GI: Continue BID GI prophylaxis. Hepatic shock. Elevated LFTs. Increasing TB, Mostly direct. Cholestasis versus retained stone. Can't obtain MRCP "secondary to ventilator". TF at 10 mL/hr.Measure residual volume every 6 hrs. Hold for RV of 150 m or higher. : ARF/ATN. D5/1/2 NS at 75 mL/hr. Strict I&O. Low u/o. Bumex gtt. Mora to gravity. Appreciate nephrology assistance. Replace/correct electrolytes. HD per nephrology. Consider volume neutral HD. If possible. Heme/ID: WBC 14.9. UCx. Hgb stable. VW Ag high. Hematology believes secondary to inflammatory response/reaction. Minimizing blood draw frequency to avoid worsening anemia. Repeat labs AM. Appreciate hematology assistance.Continue Empiric Zosyn. Endocrine: Tight glycemic control. Skin: Skin care and pressure ulcer precautions. Plan discussed with: Other (Mother and brother) My Orders My Orders Orders - JITENDRA ZAMORA MD Procedure Category Date Status Time Complete Blood Count LAB 02/24/25 Verified 08:00 Complete Blood Count LAB 02/25/25 Verified 08:00 Complete Blood Count LAB 02/26/25 Verified 08:00 Complete Blood Count LAB 02/27/25 Verified 08:00 Complete Blood Count LAB 02/28/25 Verified 08:00 Complete Blood Count LAB 03/01/25 Verified 08:00 Complete Blood Count LAB 03/02/25 Verified 08:00 Complete Blood Count LAB 03/03/25 Verified 08:00 Abg W/ Co-Ox RT 02/23/25 Logged 05:00 Abg W/ Co-Ox RT 02/24/25 Logged 05:00 Abg W/ Co-Ox RT 02/25/25 Logged 05:00 Abg W/ Co-Ox RT 02/26/25 Logged 05:00 Abg W/ Co-Ox RT 02/27/25 Logged 05:00 Abg W/ Co-Ox RT 02/28/25 Logged 05:00 Abg W/ Co-Ox RT 03/01/25 Logged 05:00 Abg W/ Co-Ox RT 03/02/25 Logged 05:00 Abg W/ Co-Ox RT 03/03/25 Logged 05:00 Urine Bacterial EDMUNDO 02/22/25 Uncollected Culture 19:02 Dietary Evaluation Review Recommendations by RD: PPN/TPN Comments: 1) Increase TPN rate to meet at least 75% of estimated daily needs 2) Advance to renal cardiac diet when medically feasible, pending ST approval 3) Follow-up with cardiology, pulmonology, nephrology, neurology, and gastroenterology 4) Continue to monitor I&O, labs, and skin integrity Expected Outcomes/Goals: 1) nutritional support to meet at least 75% of estimated daily needs 2) labs and wound to improve 3) diet to advance 4) gradual wt loss 5) f/u in 2-3 days JITENDRA ZAMORA MD Feb 22, 2025 19:31
[2025-02-23] VITALS (107 sets, daily range): BP systolic 72–160; BP diastolic 34–112; PULSE 75–98; RESP 10–23; TEMP 95.2–98.1; O2SAT 93–99
[2025-02-23 04:04] LABS: Hematocrit 29.4 % (41.0-53.0); Hemoglobin 9.6 g/dL (13.5-17.5); Mean Corpuscular Hemoglobin 29.4 pg (28.0-32.0); Mean Corpuscular Volume 90.1 fL (80.0-100.0); Nucleated Red Blood Cells % 0.4 %
[2025-02-23 04:13] LABS: Albumin 3.6 g/dL (3.2-4.8); Anion Gap 16 (5-15); BUN/Creatinine Ratio 5.8 (10.0-20.0); Calcium 9.2 mg/dL (8.7-10.4); Chloride 105 mmol/L (98-107); Glucose 81 mg/dL (74-106); Potassium 5.1 mmol/L (3.5-5.1); Sodium 141 mmol/L (136-145); Total Protein 7.3 g/dL (5.7-8.2)
[2025-02-23 05:11] LABS: Alanine Aminotransferase 42 U/L (7-40); Alkaline Phosphatase 909 U/L (46-116); Bilirubin, Total 7.7 mg/dL (0.2-1.0); Blood Urea Nitrogen 43 mg/dL (9-23); Carbon Dioxide 20 mmol/L (20-31)
--- NOTE | 2025-02-23 05:44 | DVH ---
EXAM: XY CHEST PORTABLE HISTORY: Position of the ET tube COMPARISON: XY CHEST PORTABLE on DOS: 02/22/25, XY CHEST PORTABLE on DOS: 02/20/25, XY CHEST PORTABLE on DOS: 02/19/25, XY CHEST XRAY 1 VIEW on DOS: 02/17/25, XY CHEST PORTABLE on DOS: 02/17/25, CT scan of the chest dated 01/30/2025 TECHNIQUE: Portable AP view of the chest was performed. FINDINGS: Tracheostomy and right chest tunneled dialysis catheter are re-identified. Lung volumes are low, sta ble. There is mild central interstitial prominence. There is bilateral lung base atelectasis or scarr ing. No pneumothorax. The heart is not enlarged. IMPRESSION: 1. Tracheostomy ventilation. 2. Low lung volumes and bilateral lung base atelectasis versus scarring re-identified.
--- NOTE | 2025-02-23 06:55 | DVHPN2 ---
Progress Note Date Seen: Feb 23, 2025 Has the PT tested + for MRSA If YES, has PT been informed?: No Medical Necessity Reason Pt with a Central, PICC or Fol: Yes The following are medically ne: Mora Catheter Reason for mora catheter: Nakul. Abd Surgery, Strict I&O, Total Immobilization Subjective Review of Systems Per RN, pt developed spontaneous bleeding from PEG site, small amount of thrombus from residual and tracheostomy site. U/O 400 mL, Levophed 2 mcg/kg. Vasopressin .03 mcg Objective vital signs Vital Sign Date Time Temp Pulse Resp B/P (MAP) Pulse Ox O2 Delivery O2 Flow Rate FiO2 02/23/25 06:32 137/103 02/23/25 06:00 10 97 Mechanical Ventilator+ 30 30 02/23/25 06:00 77 02/23/25 03:30 97.2 207.0 Total Intake and Output 02/22/25 02/22/25 02/23/25 15:00 23:00 07:00 Intake Total 749.878 ml 816.313 ml 631.5 ml Output Total 150 ml 400 ml Balance 749.878 ml 666.313 ml 231.5 ml medications Current Medications Medications Dose Ordered Sig/Serenity Route Start Time Stop Time Status Last Admin Dose Admin Phenylephrine HCl 250 ml @ 30 mls/hr Q8H20M IV 01/29/25 19:30 01/30/25 01:39 116.25 MLS/HR Levalbuterol HCl 0.625 mg Q4HR PRN NEB 01/29/25 20:00 02/22/25 06:31 0.625 MG Ipratropium [place] 0.5 mg Q4HPRN PRN NEB 01/29/25 20:00 02/22/25 06:31 0.5 MG Epinephrine HCl 250 ml @ 7.5 mls/hr Q24H IV 01/30/25 00:15 Dextrose 50 ml UD IV 02/01/25 12:30 Sodium Chloride 10 ml QSHIFT@10,22 IV 02/04/25 22:00 02/22/25 21:51 10 ML Neomycin/ Polymyxin/ Bacitracin 1 applic DAILY TOP 02/06/25 10:00 02/22/25 09:41 1 APPLIC Norepinephrine Bitartrate 250 ml @ 0.938 mls/ hr Q24H IV 02/07/25 11:30 02/22/25 12:17 14.063 MLS/HR Artificial Tears 1 drop Q4HP PRN EACHEYE 02/08/25 07:30 02/21/25 21:29 1 DROP Pantoprazole Sodium 40 mg Q12HR IV 02/08/25 22:00 02/22/25 21:51 40 MG Enteral Nutritional Formula 1,000 ml 20 NG 02/11/25 23:15 02/21/25 09:28 1,000 ML Epoetin Gunnar-epbx 8,000 unit MWF@2100 SC 02/17/25 21:00 Hold 02/19/25 21:49 8,000 UNIT Piperacillin Sod/ Tazobactam Sod 100 ml @ 25 mls/hr Q12HR IV 02/19/25 22:00 02/22/25 21:51 25 MLS/HR Dextrose/Sodium Chloride 1,000 ml @ 75 mls/hr [id number] IV 02/20/25 03:45 02/23/25 04:19 75 MLS/HR Midodrine 10 mg TID@0600,1200,1800 PO 02/21/25 12:00 02/23/25 06:32 10 MG Vasopressin 20 units/Sodium Chloride 100 ml @ 9 mls/hr Q11H7M IV 02/22/25 10:00 02/22/25 21:32 9 MLS/HR Bumetanide 12.5 mg/Miscellaneous 50 ml @ 2 mls/hr Q24H IV 02/22/25 10:00 02/22/25 21:26 2 MLS/HR Examination Neuro. Unchanged. Dilated fixed pupils. No reflexes. CV. Hr 70s. BP 123/75, Levophed at 2 mcg/kg. Vasopressin .03 mcg. Previous LSCV HD catheter site C/D/I. Right PC and PICC catheter exit sites remain C/D/I. Pulmonary: Tracheostomy in place. Very small amount of oozing from site.C/D/I. Mechanical ventilator support 500/10/30%/+7. RR 11/min at the time on vent display. GI: Soft, obese, nondistended and non tender. Incisions and dressing C/D/I. PEG in place. Small amount of sanguineous drainage.Continues tolerating TF for now . Mora catheter in place. Clear yellow urine in collection bag Extremities. No edema Resolved facial and neck edema. Mild orbital edema Skin: Stable jaundice. laboratory and microbiology Laboratory Tests 02/23/25 03:20 Test 02/23/25 03:20 Range/Units Serum Glucose 81 74-106 mg/dL Microbiology Date/Time Source Procedure Growth Status 02/20/25 09:30 Blood Blood Culture - Preliminary NO GROWTH AFTER 48 HOURS OF INCUBATION. Resulted 02/19/25 11:44 Trachea Gram Stain - Final Complete 02/19/25 11:44 Respiratory Culture - Final Klebsiella pneumoniae Complete 02/02/25 22:00 Urine - [place] Urine Culture - Final Complete 01/29/25 10:43 Sputum Gram Stain - Final Complete 01/29/25 10:43 Sputum Respiratory Culture - Final Complete Labs and/or images reviewed: Labs reviewed by me, Image(s) reviewed by me Problem List/Assessment/Plan Problem List/Assessment/Plan Neuro: Appreciate neurology input and assistance. CT revealed cerebral edema and tonsillar herniation.EEG no electric activity. Cerebral perfusion study confirmed no perfusion radiographically consistent with brain which was concordant with initial clinical diagnosis and EEG. However, pt continues demonstrating brainstem function as he is breathing over vent set rate. There seems to be autonomic dysfunction. Pt's BP fluctuating and RR. F/U (3rd) CT brain worsening cerebral edema and tonsillar herniation. CV: Hypotension, possible autonomic dysfunction and/or septic shock. Levophed 2 mcg/kg, vasopressin .03 mcg. Midodrine 10 mg TID via PEG. Cardiology assistance appreciated. Mechanical DVT prophylaxis. Unlikely PE (can't rule it out) but patient oxygenating well, no tachycardia. Pulmonary hypertension possibly unknowingly preexistent. Duplex negative for DVT Pulmonary: VDRF. S/p tracheostomy. CXR seems clear, x ATX and low lung voulmes. Sputum Cx Klebsiella pneumoniae sensitive to Zosyn. O2 Sat 98%. ABG pending.. Continue ventilator support. Appreciate pulmonary medicine assistance. Pulmonary medicine following. GI: Continue BID GI prophylaxis. Hepatic shock. Elevated LFTs. Increasing TB, Mostly direct. Cholestasis versus retained stone. Doubt retaines stones as rest of LFTs not increasing. Can't obtain MRCP "secondary to ventilator". Continue TF at 10 mL/hr. Will attempt to further wean from vasopressors before advancing. Measure residual volume every 6 hrs. Hold for RV of 150 m or higher. : ARF/ATN. D5/1/2 NS at 75 mL/hr. Strict I&O. Bumex gtt. Mora to gravity. Appreciate nephrology assistance. Replace/correct electrolytes. HD per nephrology. Consider volume neutral HD. If possible. Heme/ID: WBC 13.9. Pending UCx. Hgb stable. VW Ag high. Hematology believes secondary to inflammatory response/reaction. Minimizing blood draw frequency to avoid worsening anemia. Repeat labs AM. Appreciate hematology assistance. Continue Zosyn for Klebsiella pneumoniae PNA. Endocrine: Tight glycemic control. Skin: Skin care and pressure ulcer precautions. Plan discussed with: Other (RN) My Orders My Orders Orders - JITENDRA ZAMORA MD Procedure Category Date Status Time Abg W/ Co-Ox RT 02/23/25 Logged 05:00 Abg W/ Co-Ox RT 02/24/25 Logged 05:00 Abg W/ Co-Ox RT 02/25/25 Logged 05:00 Abg W/ Co-Ox RT 02/26/25 Logged 05:00 Abg W/ Co-Ox RT 02/27/25 Logged 05:00 Abg W/ Co-Ox RT 02/28/25 Logged 05:00 Abg W/ Co-Ox RT 03/01/25 Logged 05:00 Abg W/ Co-Ox RT 03/02/25 Logged 05:00 Abg W/ Co-Ox RT 03/03/25 Logged 05:00 Urine Bacterial EDMUNDO 02/22/25 In Process Culture 21:21 Dietary Evaluation Review Recommendations by RD: PPN/TPN Comments: 1) Increase TPN rate to meet at least 75% of estimated daily needs 2) Advance to renal cardiac diet when medically feasible, pending ST approval 3) Follow-up with cardiology, pulmonology, nephrology, neurology, and gastroenterology 4) Continue to monitor I&O, labs, and skin integrity Expected Outcomes/Goals: 1) nutritional support to meet at least 75% of estimated daily needs 2) labs and wound to improve 3) diet to advance 4) gradual wt loss 5) f/u in 2-3 days JITENDRA ZAMORA MD Feb 23, 2025 06:55
--- NOTE | 2025-02-23 06:59 | DVHPN2 ---
Progress Note - Dictate Date Seen: Feb 23, 2025 Has the PT tested + for MRSA If YES, has PT been informed?: No Medical Necessity Reason Pt with a Central, PICC or Fol: Yes The following are medically ne: Mora Catheter Reason for mora catheter: Nakul. Abd Surgery, Strict I&O, Total Immobilization vital signs Vital Sign Date Time Temp Pulse Resp B/P (MAP) Pulse Ox O2 Delivery O2 Flow Rate FiO2 02/23/25 06:55 83/49 02/23/25 06:45 97.7 77 10 96 207.9 02/23/25 06:40 30 02/23/25 06:00 Mechanical Ventilator+ Total Intake and Output 02/22/25 02/22/25 02/23/25 15:00 23:00 07:00 Intake Total 749.878 ml 816.313 ml 820.3 ml Output Total 150 ml 400 ml Balance 749.878 ml 666.313 ml 420.3 ml medications Current Medications Medications Dose Ordered Sig/Serenity Route Start Time Stop Time Status Last Admin Dose Admin Phenylephrine HCl 250 ml @ 30 mls/hr Q8H20M IV 01/29/25 19:30 01/30/25 01:39 116.25 MLS/HR Levalbuterol HCl 0.625 mg Q4HR PRN NEB 01/29/25 20:00 02/22/25 06:31 0.625 MG Ipratropium Dupont 0.5 mg Q4HPRN PRN NEB 01/29/25 20:00 02/22/25 06:31 0.5 MG Epinephrine HCl 250 ml @ 7.5 mls/hr Q24H IV 01/30/25 00:15 Dextrose 50 ml UD IV 02/01/25 12:30 Sodium Chloride 10 ml QSHIFT@10,22 IV 02/04/25 22:00 02/22/25 21:51 10 ML Neomycin/ Polymyxin/ Bacitracin 1 applic DAILY TOP 02/06/25 10:00 02/22/25 09:41 1 APPLIC Norepinephrine Bitartrate 250 ml @ 0.938 mls/ hr Q24H IV 02/07/25 11:30 02/22/25 12:17 14.063 MLS/HR Artificial Tears 1 drop Q4HP PRN EACHEYE 02/08/25 07:30 02/21/25 21:29 1 DROP Pantoprazole Sodium 40 mg Q12HR IV 02/08/25 22:00 02/22/25 21:51 40 MG Enteral Nutritional Formula 1,000 ml 20 NG 02/11/25 23:15 02/21/25 09:28 1,000 ML Epoetin Gunnar-epbx 8,000 unit MWF@2100 SC 02/17/25 21:00 Hold 02/19/25 21:49 8,000 UNIT Piperacillin Sod/ Tazobactam Sod 100 ml @ 25 mls/hr Q12HR IV 02/19/25 22:00 02/22/25 21:51 25 MLS/HR Dextrose/Sodium Chloride 1,000 ml @ 75 mls/hr [id number] IV 02/20/25 03:45 02/23/25 04:19 75 MLS/HR Midodrine 10 mg TID@0600,1200,1800 PO 02/21/25 12:00 02/23/25 06:32 10 MG Vasopressin 20 units/Sodium Chloride 100 ml @ 9 mls/hr Q11H7M IV 02/22/25 10:00 02/22/25 21:32 9 MLS/HR Bumetanide 12.5 mg/Miscellaneous 50 ml @ 2 mls/hr Q24H IV 02/22/25 10:00 02/22/25 21:26 2 MLS/HR laboratory and microbiology Laboratory Tests 02/23/25 03:20 Test 02/23/25 03:20 Range/Units Serum Glucose 81 74-106 mg/dL Assessment/Plan Still in ICU. On vent support. No gross higher brain reflexes. Pupils are dilated and fixed. Anoxic/Hypoxic Encephalopathy No reported arrhythmia overnight s/p Tracheostomy s/p PEG placement Back on Levophed Had Hemodialysis yesterday s/p PRBC transfusion yesterday On Midodrine Echocardiogram revealed no WMA and also revealed good EF. It also revealed increased Pulmonary Artery Pressure in favor of component of Pulmonary Hypertension. s/p Hemodialysis Received blood and platelet transfusion repeatedly Patient is a 24-year-old gentleman who was originally brought to the hospital for post arrest. Patient is seen in postop area. Patient is intubated and on multiple pressor supports. Patient is not source of history. Information was obtained by reviewing the chart, talking to patient's family/mother and communicating with staff and reviewing outside records ([facility]). Patient did have elective outpatient laparoscopic cholecystectomy in [facility] on January 28 2025. As per mother, after going home, patient was feeling very hungry and was eating and drinking a lot. He started feeling abdominal pain with nausea at night and in the morning was short of breath. As per mother: patient has stopped breathing in the morning and family called 911. As per mother, as per guidance of 911, family started CPR until EMS arrived. Patient was intubated and was brought to the hospital by EMS. Since arrival to [facility], patient was seen by surgeon who took the patient to operating room and performed laparotomy (there was hepatic hematoma). Postoperatively, the patient has remained hypotensive. There is signs for multiorgan involvement. Patient was not alert and did not complain of any chest pains. Labs revealed increased troponin. Cardiology is involved for cardiac aspects of care and abnormal troponin. First available EKG reveals sinus tachycardia with no specific ST-T changes. Telemetry had revealed sinus tachycardia throughout the stay. Patient is found to have significant anemia and is receiving blood transfusion at the time of evaluation. It is of note that at the time of evaluation patient does not have any reflexes. Intubated. Mucosa pale. Dilated and fixed pupils, Scattered rhonchi in the lungs. Cardiac: Tachycardic. No murmur. Abdomen is covered by dressing. Extremities do not reveal any edema. Dorsalis pedis is 1+ bilateral. Patient does not respond to any stimuli. Reported past medical history includes asthma and obesity. Reportedly, on January 23, 2025: Patient presented to [facility] for abdominal pain/nausea/vomiting. At that point the problems were ongoing for few weeks. In [facility], CT of the abdomen and MRCP were performed. Patient was seen by GI/surgery. Patient was found to have gallstones. Patient was discharged and later on January 28, 2025 presented back to [facility] for elective laparoscopy cholecystectomy. Patient was discharged home from [facility] after laparoscopic cholecystectomy. As per mother, patient does not have baseline history of any cardiac history. As per mother, patient was using marijuana. Mother denies any previous substance abuse besides marijuana. No specific family history is reported On January 23, 2025, labs in [facility] revealed creatinine of 0.84, hemoglobin of 15.2 and troponin (high sensitive) of <3. At that point EKG was normal WBC: 20.1 - 19.0 - 22.7 - 20.6 - 28.4 - 20.3 - 21.0 - 25.2 - 29.8 - 29.5 - 29.0 - 26.2 - 21.7 - 19.7 - 17.7 - 15.3 - 12.2 - 10.5 - 11.2 - 13.0 - 10.7 - 9.0 - 9.0 - 10.3 - 10.3 - 10.1 - 11.0 - 12.4 - 13.0 - 12.0 - 15.1 - 13.8 - 14.9 - 13.1 Hemoglobin: 8.3 - 6.5 - 12.1 - 11.1 - 12.1 - 9.3 - 9.2 - 9.1 - 8.4 - 9.0 - 9.5 - 8.8 - 8.4 - 8.0 - 9.7 - 9.6 - 9.8 - 9.6 - 9.7 - 9.8 - 9.1 - 8.5 - 8.8 - 8.9 - 8.7 - 8.8 - 9.7 - 9.1 - 7.9 - 8.2 - 10.1 - 9.5 - 9.7 - 9.6 Fibrinogen: 108 - 316 - 537 - 689 - >860 Creatinine: 4.02 - 3.78 - 3.90 - 3.95 - 4.34 - 5.44 - 6.05 - 6.73 - 7.31 - 7.77 - 6.64 - 7.30 - 4.91 - 5.32 - 7.40 - 5.98 - 7.66 - 6.28 - 7.71 - 8.67 - 6.87 - 5.62 - 7.59 - 8.95 - 7.51 - 9.04 - 6.23 - 7.09 - 5.33 - 6.90 - 4.95 - 6.31 - 7.51 - 6.00 - 7.40 Potassium: 5.6 - 4.6 - 4.8 - 3.9 - 2.9 - 2.9 - 3.6 - 3.8 - 4.9 - 5.4 - 6.0 - 5.1 - 5.3 - 6.1 - 6.0 - 4.6 - 4.4 - 4.3 - 3.5 - 3.4 - 3.7 - 4.5 - 5.7 - 5.2 - 4.0 - 3.8 - 4.1 - 4.5 - 4.9 - 4.7 - 4.6 - 4.4 - 4.6 - 3.7 - 3.5 - 4.5 - 3.7 - 5.1 AST/ALT: 676/700 - 2327/6 - 4636/2521 - -/1996 - 2500/1990 - 1780/1821 - 808/995 - 586/735 - 456/444 - 312/290 - 237/163 - 215/125 - 190/87 - 200/74 - 202/66 - 189/53 - 186/44 - 186/45 - 192/38 - 193/34 - 214/34 - 195/30 - 261/42 - 241/47 - 246/63 - 265/69 - 208/52 - 177/46 - 168/42 Lactic acid: 17.9 - 17.2 - 11.4 Troponin (high sensitive): 0596 - 6319 - 0688 - 4756 - 3584 TSH: 11.05 Urine Toxicology: positive for Fentanyl and Benzodiazepine Chest x-ray revealed: Lines and Tubes: Endotracheal tube projects 2.2 cm above the meghan. Right internal jugular central venous catheter tip projects over superior vena cava. Lungs: No focal consolidation. Low lung volumes. Pleura: No effusion. No pneumothorax. Cardiomediastinal contours: Unremarkable Bones: No acute osseous abnormality. IMPRESSION: Lines and tubes as above. Low lung volumes. Repeat chest x-ray revealed: IMPRESSION: Lines and tubes in satisfactory position. Mild increased pulmonary vascular congestion Repeat chest xry revealed: IMPRESSION: Lines and tubes in satisfactory position. Mild increased pulmonary vascular congestion Repeat chest xry revealed: IMPRESSION: 1. Low lung volumes with concomitant crowding of the pulmonary vasculature. 2. No evidence of focal consolidation. 3. Lines and tubes unchanged. Repeat chest xry revealed: IMPRESSION: 1. Slight interval retraction of the endotracheal tube such that the tip now projects approximately 4.7 cm above the level of the meghan. Remaining lines and tubes unchanged. 2. Otherwise no significant change compared to prior exam. Repeat chest xry revealed: IMPRESSION: 1. Slight interval advancement of endotracheal tube such that the tip now projects approximately 1.7 cm above the level of the meghan. Remaining lines and tubes unchanged. 2. Otherwise no significant change compared to prior exam. Repeat chest xry revealed: IMPRESSION: 1. Slight interval retraction of the endotracheal tube such that the tip now projects approximately 3.3 cm above the level of the meghan. Remaining lines and tubes unchanged. 2. No evidence of acute cardiopulmonary process. Repeat chest xry revealed: IMPRESSION: 1. Endotracheal tube in appropriate position. Remaining lines and tubes unchanged. 2. No evidence of acute cardiopulmonary process. Repeat chest xry revealed: IMPRESSION: 1. Small right pleural effusion. 2. Lines and tubes unchanged. Repeat chest xry revealed: IMPRESSION: 1. Small right pleural effusion. 2. Lines and tubes unchanged. Repeat chest xry revealed: IMPRESSION: 1. Small bilateral pleural effusions. 2. Lines and tubes unchanged. Repeat chest xry revealed: IMPRESSION: 1. Slight interval advancement of the endotracheal tube. Remaining lines and tubes unchanged. 2. No evidence of acute cardiopulmonary process. Repeat chest xry revealed: IMPRESSION: 1. Slight interval retraction of the endotracheal tube such that the tip now projects approximately 3.3 cm above the level of the meghan. Remaining lines and tubes unchanged. 2. No evidence of acute cardiopulmonary process. Repeat chest xry revealed: Bowel gas pattern is unremarkable. Enteric tube tip projects over the expected region of the stomach. The lung bases demonstrates bibasilar atelectasis. The lower pelvis is collimated from field of view. No acute osseous abnormality identified. Repeat chest xry revealed: Lines and Tubes: Endotracheal tube tip projects approximately 5.1 cm above the level of the meghan. Enteric catheter terminates within the gastric lumen. Right peripherally inserted central catheter tip and left subclavian central venous catheter tip project over the distal superior vena cava. Lungs: Clear Pleura: No effusion. No pneumothorax. Cardiomediastinal contours: Unremarkable Bones: Unremarkable IMPRESSION: 1. No radiographic evidence of acute cardiopulmonary abnormality. 2. Lines and tubes as above. Repeat chest xry revealed: IMPRESSION: 1. Stable position of the support lines and tubes. 2. Bibasilar airspace disease which may reflect atelectasis and/or pneumonia. Possible small bilateral pleural effusions. Repeat chest xry revealed: IMPRESSION: 1. Lines and tubes unchanged. 2. Persistently diminished lung volumes with concomitant exaggeration of the pulmonary vasculature. No evidence of acute cardiopulmonary process. Repeat chest xry revealed: IMPRESSION: 1. No acute cardiopulmonary disease. 2. Lines and tubes as above. Repeat chest xry revealed: IMPRESSION: 1. Intervally placed right IJ catheter projects in appropriate remaining support devices are stable.2. No other significant change from the previous study. Persistent low lung volumes with vascular crowding and basilar atelectasis. Repeat chest xry revealed: IMPRESSION: Heart is stable in size. There are low lung volumes with probable small left pleural effusion and bibasilar atelectasis. Support lines and tubes appear unchanged in satisfactory position. No pneumothorax. No significant interval change. Repeat chest xry revealed: IMPRESSION: Unchanged bibasilar opacities, likely atelectasis with small pleural effusions Repeat chest xry revealed: IMPRESSION: 1. No significant change from the previous study. Stable support devices. Persistent left pleural effusion and bibasilar airspace disease. Repeat chest xry revealed: IMPRESSION: 1. Interval removal of enteric catheter. Remaining Lines and tubes unchanged. 2. Otherwise, no significant change compared to prior exam allowing for differences in technique. Repeat chest xry revealed: IMPRESSION: Low lung volumes with bibasilar subsegmental atelectasis. Brain scan revealed: FINDINGS: Absence of cerebral blood flow is noted along with no brain parenchymal radiotracer uptake. Increased activity is seen in the central face likely representing vascular shunting consistent with the so-called "hot nose" sign. Findings suggest brain however clinical correlation is necessary. IMPRESSION: Findings described above, which would be consistent with brain in the appropriate clinical setting, however clinical correlation is needed. CT of the chest/abdomen/pelvis revealed: IMPRESSION: 1. Hepatic hematoma measuring up to approximately 8.6 cm in greatest dimension, as described above, with hemorrhage extending beyond the liver capsule and into the right pericolic gutter as well as into the pelvis. No definite active arterial bleeding is seen on this exam, although limited evaluation due to the timing of contrast, as this was not a CTA exam. 2. Postsurgical changes of cholecystectomy. 3. Dilated fluid-filled small bowel loops, may be due to postoperative ileus. No small bowel obstruction. 4. Small volume pneumoperitoneum, likely due to recent surgery. Small volume of gas are seen in the upper ventral abdomen from the recent surgery. 5. Dependent atelectasis in the lower lobes. Otherwise, no acute disease in the chest. 6. Endotracheal tube and enteric tube in place. 7. Atrophic right kidney incidentally noted. 8. Additional findings as described above. Critical findings Critical Result: Acute hepatic hematoma with hemorrhage extending beyond the liver capsule into the adjacent portions of the abdomen and into the pelvis as detailed above. Repeat CT of chest/abdomen/pelvis revealed: There is limited interpretation of the chest, abdomen and pelvis without administration of intravenous contrast. Endotracheal tube tip terminates just at the meghan / left main bronchus. Diffuse bilateral pulmonary airspace consolidation bilaterally significantly increased. Bilateral lower lobe lobar consolidation/ atelectasis, increased from prior. Small bilateral pleural effusions. There is extensive edema/ stranding within the upper anterior chest, neck region/supraclavicular region. There is some hyperdensity within this region which could represent components of hematoma / blood products. Heterogeneous appearance of the thyroid gland. Right IJ catheter terminating at the cavoatrial junction. Adrenal glands unremarkable in shape. Perisplenic hematoma. Interval postsurgical changes in the right upper quadrant of the abdomen. There appears to be surgicel/gaseous collection within the previous hematoma cavity, likely representing surgicel. There is a radiopaque density within the resection cavity as well which measures 6.2 x 4.6 cm.. Postoperative changes of the right anterior abdomen with soft tissue emphysema. Small amount of pneumoperitoneum Surgical drainage catheter terminating in the right upper quadrant of the abdomen Right renal parenchymal atrophy. Left kidney demonstrates perinephric edema / stranding. No left hydronephrosis. Nasogastric tube projects towards the distal stomach. Moderate distention small bowel loops. Rectal catheter. Moderate distention of the large bowel loops. Normal appendix. Abdominal aorta normal in caliber. Small amount of ascites fluid/ mesenteric edema. Bladder decompressed by Mora catheter. Soft tissue edema /anasarca. Mesenteric edema. Small amount of ascites fluid. The osseous structures are stable. IMPRESSION: Limited evaluation without contrast. Interval evacuation of the right upper quadrant hematoma. Surgicel within the resection cavity. No significant interval development of new hematoma. There are 2 radiopaque lap pads within the resection cavity . Findings reviewed with Dr. Ledesma at 11:51 a.m. on 01/30/2025 Perisplenic hematoma, similar to previous examination. Extensive bilateral pulmonary airspace consolidation, significantly increased from previous examination. Small bilateral pleural effusions. Right upper quadrant drainage catheter. Pneumoperitoneum. Soft tissue edema / anasarca. Small amount of ascites fluid/ mesenteric edema. Extensive edema within the anterior chest, neck region. Heterogeneous appearance thyroid gland. Other findings as described. CT of the head revealed: IMPRESSION: 1. No evidence of acute intracranial abnormality. Repeat CT of head revealed: FINDINGS: Cerebellar tonsilar herniation. There is sulcal and ventricular effacement. The basal cisterns are effaced. Loss of mario-white matter differentiation is noted. The skull and visible facial bones are intact. The paranasal sinuses, mastoid air cells and middle ear cavities are well-aerated. The soft tissues of the scalp are unremarkable. IMPRESSION: Diffuse cerebral edema with cerebellar tonsillar herniation. Recommend MRI brain for further evaluation. Repeat CT of head revealed: FINDINGS: There is diffuse low attenuation throughout the brain with increased effacement of the ventricles and complete sulcal effacement. There is cerebellar tonsillar herniation. The orbits are normal. There is moderate mucosal thickening within the paranasal sinuses and mastoid air cells. The soft tissues and osseous structures appear within normal limits. IMPRESSION: 1. Findings as above suggesting worsening diffuse cerebral edema in the setting of anoxic brain injury in the given clinical setting. Further clinical correlation is suggested. CT of Neck revealed: IMPRESSION: Limited evaluation without contrast. Extensive soft tissue edema within the neck extending into the anterior / upper chest and anterior mediastinum . Retropharyngeal edema. Heterogeneous appearance of the thyroid gland. Inferior cerebellar tonsillar herniation better seen on the prior CT Renal Ultrasound revealed: IMPRESSION: 1. Right kidney not visible. 2. Left kidney is enlarged. 3. No hydronephrosis. Venous duplex of lower ext revealed: IMPRESSION: NO SONOGRAPHIC EVIDENCE FOR DEEP VENOUS THROMBOSIS IN THE RIGHT LOWER EXTREMITY VEINS. Repeat (bilateral) Venous duplex of lower ext revealed: Impression: 1. No right or left femoropopliteal venous thrombosis. EEG reported: This is a remarkably abnormal EEG, this EEG seen in severe cerebral dysfunction due to metabolic/hypoxic encephalopathy or medication effects, unless this is caused by reversible etiology, this EEG is suggestive of a poor prognosis for meaningful recovery, please correlate clinically. Arrival EKG revealed sinus tachycardia with nonspecific ST-T changes Tele reveals sinus tachycardia Echocardiogram revealed: Technically limited study secondary to poor acoustic windows. Left ventricle: Left ventricle was normal-sized with normal systolic function. LVEF was 55-60%. No gross wall motion abnormality was seen. Right ventricle was mildly dilated with normal systolic function. Left atrium was normal-sized. Right atrium was mildly dilated. Aortic valve: Aortic valve was not well visualized. There was no aortic insufficiency/stenosis. There was no mitral regurgitation. There was trace tricuspid regurgitation. Pulmonary valve was not well visualized. IVC was not visualized. Right ventricular systolic pressure was assessed around 48 mm Hg. There was no pericardial effusion. Patient is a 24-year-old gentleman who presented with post arrest. It seems that the patient had hemorrhagic (intra-abdominal) presentation. Patient did have elective laparoscopic cholecystectomy the day before presentation. On the day of presentation, the patient was taken back to operating room and this time Laparotomy was done for hepatic hematoma. Patient does have multiorgan involvement. Clinically there is no brainstem reflexes. Shock liver/acute renal failure is considered. Troponin has been high. EKG did not reveal any STEMI. Presentation could be high troponin secondary to demand physiology. Patient does not have any risk factors for baseline coronary artery disease. In ideal scenario, ischemic workup/cardiac catheterization could be more revealing. Unfortunately, the patient does have acute renal failure which could be worsened by cardiac catheterization at this point. As there was no higher brain functions the suggestion is to wait and see if patient regains any higher brain function. It is of note that during cardiac catheterization, the patient may need some anticoagulation/antiplatelets. At this point patient is having significant anemia/bleeding and receiving blood transfusion and holding off of scenario forcing Anticoagulation/antiplatelets is advised. I had a long discussion with family members and Mother (repeatedly). Clinically patient has multiorgan failure. Secondary to active bleeding, we will avoid anticoagulation/antiplatelets for now. Being managed in ICU. Was taken to OR repeatedly. Still no reflexes. Echocardiogram revealed no WMA and also revealed good EF. It also revealed increased Pulmonary Artery Pressure in favor of component of Pulmonary Hypertension. Review of Echo images revealed good right ventricular systolic function. Not typical for Pulmonary Emboli. Still, PE cannot be ruled out. If PE is ruled out, then it is possible that patient had Pulmonary Hypertension from before (Baseline history of Asthma may actually reflect it). s/p PRBC transfusion (multiple). Being followed by Surgery, Nephrology, Hematology, Pulmonary, Neurology and GI. . Repeat imaging revealed cerebellar tonsillar herniation. Neurology diagnosed Hypoxic/Metabolic Encephalopathy also. EEG findings question meaningful recovery. Neurology declared patient: brain . Neurology second opinion was in favor of Anoxic/Hypoxic Encephalopathy. Repeat imaging of brain revealed worsening diffuse cerebral edema and also again revealed cerebellar tonsillar herniation. Family are contemplating Trach/PEG. Patient is seen by GI. s/p Tracheostomy. s/p PEG. s/p repeated PRBC transfusion. s/ p Arrest Intra-abdominal bleeding Hepatic hematoma Multiorgan failure, due to shock Shock liver Lactic Acidosis Acute renal failure Acute respiratory failure, on vent support Status post laparotomy Status post laparoscopic cholecystectomy Abnormal troponin, evaluated to reflect possible demand physiology History of gallstones History of asthma Obesity History of marijuana abuse Consumptive Coagulopathy / DIC Pulmonary Hypertension Cerebellar tonsillar Herniation. Encephalopathy, hypoxic/metabolic Renal failure, started on hemodialysis Brain scan questions brain Anoxic Encephalopathy s/p Tracheostomy s/p PEG Hypotension on Levophed, Cardiac suggestion for management: Manage in ICU Follow-up electrolytes and kidney function tests and correct abnormalities Evaluation and management of respiratory failure as per Pulmonary Evaluation and management of Cerebellar tonsillar herniation and worsening cerebral edema as per Neurology/surgery/primary team V/Q scan could not be completed Anoxic/Hypoxic Encephalopathy Echocardiogram revealed no WMA and also revealed good EF. It also revealed increased Pulmonary Artery Pressure in favor of component of Pulmonary Hypertension. Hematology follow up (to comment on prophylaxis / treatment of Pulmonary Emboli) Surgical follow up Nephrology follow up (started on hemodialysis) and Hematology follow up Patient is seen by GI On levophed: goal of MAP: above 55 mmHg On Midodrine: you can taper up to 10 mg TID Florinef 0.1mg once daily for now DVT prophylaxis as per primary team (compression stocking Vs Lovenox..) Long-term prognosis depends on the above and most importantly regaining of the higher brain function: looks very grim Ischemic workup may be considered only after regaining higher brain function or any special change in clinical presentation Further evaluation and management depends on the above and clinical course A total of 75 minutes was spent reviewing the patient record, examining the patient, making a diagnostic and therapeutic plan, discussing this plan with medical personnel, following up on diagnostic studies and following the patient for clinical stability excluding any and all procedures. At least 50% of this time was spent in direct, [id number] contact. Thank you for allowing me to participate in this patient's care. Further recommendations will depend on patient's clinical course. Please do not hesitate to contact me if you have any questions or concerns. This medical document was created using electronic medical record system with [employer] computerized dictation system. Although this document has been carefully reviewed, there may still be some phonetic and typographical errors. These areas are purely typographical due to the imperfection of the software programs, and do not reflect any compromise in the patient's medical care. Dietary Evaluation Review Recommendations by RD: PPN/TPN Comments: 1) Increase TPN rate to meet at least 75% of estimated daily needs 2) Advance to renal cardiac diet when medically feasible, pending ST approval 3) Follow-up with cardiology, pulmonology, nephrology, neurology, and gastroenterology 4) Continue to monitor I&O, labs, and skin integrity Expected Outcomes/Goals: 1) nutritional support to meet at least 75% of estimated daily needs 2) labs and wound to improve 3) diet to advance 4) gradual wt loss 5) f/u in 2-3 days Plan discussed with: Other (primary rn ) TERELL MATHEWS Feb 23, 2025 06:59
[2025-02-23 07:51] LABS: Base Excess -2.0 mmol/L (-2.0-3.0)
[2025-02-23 09:41] LABS: INR 1.34 (0.9-1.15); Partial Thromboplastin Time 35.8 SEC (24.5-34.5); Prothrombin Time 13.8 sec (9.3-11.8)
[2025-02-23] MEDS: PIPERACILLIN-TAZOB 2.25GM 50 ML IV SCH (10:32)
--- NOTE | 2025-02-23 10:39 | DVHPN2 ---
Progress Note Date Seen: Feb 23, 2025 Has the PT tested + for MRSA If YES, has PT been informed?: No Medical Necessity Reason Pt with a Central, PICC or Fol: Yes The following are medically ne: Mora Catheter Reason for mora catheter: Nakul. Abd Surgery, Strict I&O, Total Immobilization Subjective Review of Systems: RESPIRATORY:Abnormal Other Systems: Patient seen and examined by myself today in follow-up, patient trached on ventilator Objective vital signs Vital Sign Date Time Temp Pulse Resp B/P (MAP) Pulse Ox O2 Delivery O2 Flow Rate FiO2 02/23/25 10:20 81 10 103/70 (81) 99 30 02/23/25 06:45 97.7 207.9 02/23/25 06:00 Mechanical Ventilator+ Total Intake and Output 02/22/25 02/22/25 02/23/25 15:00 23:00 07:00 Intake Total 749.878 ml 816.313 ml 820.3 ml Output Total 150 ml 400 ml Balance 749.878 ml 666.313 ml 420.3 ml medications Current Medications Medications Dose Ordered Sig/Serenity Route Start Time Stop Time Status Last Admin Dose Admin Phenylephrine HCl 250 ml @ 30 mls/hr Q8H20M IV 01/29/25 19:30 01/30/25 01:39 116.25 MLS/HR Levalbuterol HCl 0.625 mg Q4HR PRN NEB 01/29/25 20:00 02/22/25 06:31 0.625 MG Ipratropium [place] 0.5 mg Q4HPRN PRN NEB 01/29/25 20:00 02/22/25 06:31 0.5 MG Epinephrine HCl 250 ml @ 7.5 mls/hr Q24H IV 01/30/25 00:15 Dextrose 50 ml UD IV 02/01/25 12:30 Sodium Chloride 10 ml QSHIFT@10,22 IV 02/04/25 22:00 02/22/25 21:51 10 ML Neomycin/ Polymyxin/ Bacitracin 1 applic DAILY TOP 02/06/25 10:00 02/22/25 09:41 1 APPLIC Norepinephrine Bitartrate 250 ml @ 0.938 mls/ hr Q24H IV 02/07/25 11:30 02/22/25 12:17 14.063 MLS/HR Artificial Tears 1 drop Q4HP PRN EACHEYE 02/08/25 07:30 02/21/25 21:29 1 DROP Pantoprazole Sodium 40 mg Q12HR IV 02/08/25 22:00 02/22/25 21:51 40 MG Enteral Nutritional Formula 1,000 ml 20 NG 02/11/25 23:15 02/21/25 09:28 1,000 ML Epoetin Gunnar-epbx 8,000 unit MWF@2100 SC 02/17/25 21:00 Hold 02/19/25 21:49 8,000 UNIT Dextrose/Sodium Chloride 1,000 ml @ 75 mls/hr [id number] IV 02/20/25 03:45 02/23/25 04:19 75 MLS/HR Midodrine 10 mg TID@0600,1200,1800 PO 02/21/25 12:00 02/23/25 06:32 10 MG Vasopressin 20 units/Sodium Chloride 100 ml @ 9 mls/hr Q11H7M IV 02/22/25 10:00 02/23/25 08:24 9 MLS/HR Bumetanide 12.5 mg/Miscellaneous 50 ml @ 2 mls/hr Q24H IV 02/22/25 10:00 02/22/25 21:26 2 MLS/HR Piperacillin Sod/ Tazobactam Sod 50 ml @ 12.5 mls/hr Q8H IV 02/23/25 10:00 Examination: LUNGS:Normal, CVS:Normal, MSK:Abnormal laboratory and microbiology Laboratory Tests 02/23/25 03:20 Test 02/23/25 03:20 Range/Units Serum Glucose 81 74-106 mg/dL Microbiology Date/Time Source Procedure Growth Status 02/20/25 09:30 Blood Blood Culture - Preliminary NO GROWTH AFTER 72 HOURS OF INCUBATION. Resulted 02/19/25 11:44 Trachea Gram Stain - Final Complete 02/19/25 11:44 Respiratory Culture - Final Klebsiella pneumoniae Complete 02/02/25 22:00 Urine - [place] Urine Culture - Final Complete 01/29/25 10:43 Sputum Gram Stain - Final Complete 01/29/25 10:43 Sputum Respiratory Culture - Final Complete Problem List/Assessment/Plan Problem List/Assessment/Plan Acute kidney injury likely ischemic ATN in the setting of shock, FeNa > 2%, nonoliguric Acute respiratory failure, patient is trached on the ventilator Status post cardiac arrest Anoxic encephalopathy Hyperkalemia secondary to above Metabolic acidosis anion gap secondary to lactic acidosis secondary to reduced perfusion from hemorrhage Hemodynamic shock from bleeding Acute blood loss anemia/post op Status post laparoscopic cholecystectomy on 01/28/25 [facility] Status post ex lap, 01/29 Positive troponins NSTEMI--likely demand ischemia Shock liver Vitamin-D deficiency Status post tracheostomy and gastric tube placement 02/19 Recommendations Hemodialysis tomorrow Epogen 22967 subQ 3 times weekly Albumin 25% p.r.n. hemodialysis Bumex 0.5 mg/hr Mora catheter strict I&Os Vitamin-D replacement Packed red blood cell transfusion p.r.n. IV antibiotics Vasopressin drip for blood pressure support We will continue to follow . Total care time 25 minute minutes I discussed my plan of care with mother and the primary nurse at the bedside Plan discussed with: Other (Nurse) Dietary Evaluation Review Recommendations by RD: PPN/TPN Comments: 1) Increase TPN rate to meet at least 75% of estimated daily needs 2) Advance to renal cardiac diet when medically feasible, pending ST approval 3) Follow-up with cardiology, pulmonology, nephrology, neurology, and gastroenterology 4) Continue to monitor I&O, labs, and skin integrity Expected Outcomes/Goals: 1) nutritional support to meet at least 75% of estimated daily needs 2) labs and wound to improve 3) diet to advance 4) gradual wt loss 5) f/u in 2-3 days FELICIANO KHAN MD Feb 23, 2025 10:39
--- NOTE | 2025-02-23 13:41 | DVHPNRES ---
Progress Note Date Seen: Feb 23, 2025 Resident Creating Document: ARNOLD MUHAMMAD DALE Has the PT tested + for MRSA If YES, has PT been informed?: No Medical Necessity Reason Pt with a Central, PICC or Fol: Yes The following are medically ne: Mora Catheter Reason for mora catheter: Nakul. Abd Surgery, Strict I&O, Total Immobilization Subjective Review of Systems Patient seen and evaluated in bedside today. Patient currently on mechanical ventilation, vent setting peep 7, tidal volume 500, FiO2 55, respiratory rate 10. Labs reviewed. Objective vital signs Vital Sign Date Time Temp Pulse Resp B/P (MAP) Pulse Ox O2 Delivery O2 Flow Rate FiO2 02/23/25 12:23 81 10 124/89 (101) 98 30 02/23/25 10:45 97.9 208.2 02/23/25 10:00 Mechanical Ventilator+ Total Intake and Output 02/22/25 02/22/25 02/23/25 15:00 23:00 07:00 Intake Total 749.878 ml 816.313 ml 911.9 ml Output Total 150 ml 400 ml Balance 749.878 ml 666.313 ml 511.9 ml medications Current Medications Medications Dose Ordered Sig/Serenity Route Start Time Stop Time Status Last Admin Dose Admin Phenylephrine HCl 250 ml @ 30 mls/hr Q8H20M IV 01/29/25 19:30 01/30/25 01:39 116.25 MLS/HR Levalbuterol HCl 0.625 mg Q4HR PRN NEB 01/29/25 20:00 02/22/25 06:31 0.625 MG Ipratropium [place] 0.5 mg Q4HPRN PRN NEB 01/29/25 20:00 02/22/25 06:31 0.5 MG Epinephrine HCl 250 ml @ 7.5 mls/hr Q24H IV 01/30/25 00:15 Dextrose 50 ml UD IV 02/01/25 12:30 Sodium Chloride 10 ml QSHIFT@10,22 IV 02/04/25 22:00 02/23/25 10:27 10 ML Neomycin/ Polymyxin/ Bacitracin 1 applic DAILY TOP 02/06/25 10:00 02/23/25 10:27 1 APPLIC Norepinephrine Bitartrate 250 ml @ 0.938 mls/ hr Q24H IV 02/07/25 11:30 02/22/25 12:17 14.063 MLS/HR Artificial Tears 1 drop Q4HP PRN EACHEYE 02/08/25 07:30 02/21/25 21:29 1 DROP Pantoprazole Sodium 40 mg Q12HR IV 02/08/25 22:00 02/23/25 10:27 40 MG Enteral Nutritional Formula 1,000 ml 20 NG 02/11/25 23:15 02/21/25 09:28 1,000 ML Epoetin Fiona-epbx 8,000 unit MWF@2100 SC 02/17/25 21:00 Hold 02/19/25 21:49 8,000 UNIT Dextrose/Sodium Chloride 1,000 ml @ 75 mls/hr [id number] IV 02/20/25 03:45 02/23/25 04:19 75 MLS/HR Midodrine 10 mg TID@0600,1200,1800 PO 02/21/25 12:00 02/23/25 12:03 10 MG Vasopressin 20 units/Sodium Chloride 100 ml @ 9 mls/hr Q11H7M IV 02/22/25 10:00 02/23/25 08:24 9 MLS/HR Bumetanide 12.5 mg/Miscellaneous 50 ml @ 2 mls/hr Q24H IV 02/22/25 10:00 02/22/25 21:26 2 MLS/HR Piperacillin Sod/ Tazobactam Sod 50 ml @ 12.5 mls/hr Q8H IV 02/23/25 10:00 02/23/25 10:32 12.5 MLS/HR Examination General: RASS -5, afebrile, mucosae are moist Cardiovascular: Normal S1 and S2. No murmurs, gallops or rubs Respiratory: Mechanically assisted ventilation, equal bilateral airway entree. Clear lung sounds on auscultation Abdomen: Soft, nontender, no organomegaly, with surgical wound on abdomin MSK/skin: Mobilization of limbs cannot be evaluated. Skin is dry and warm. Neurological: Orientation cannot be assessed. Pupils are dilated and nonreactive to light, absent brainstem reflexes. laboratory and microbiology Laboratory Tests 02/23/25 03:20 Test 02/23/25 03:20 Range/Units Serum Glucose 81 74-106 mg/dL Microbiology Date/Time Source Procedure Growth Status 02/20/25 09:30 Blood Blood Culture - Preliminary NO GROWTH AFTER 72 HOURS OF INCUBATION. Resulted 02/19/25 11:44 Trachea Gram Stain - Final Complete 02/19/25 11:44 Respiratory Culture - Final Klebsiella pneumoniae Complete 02/02/25 22:00 Urine - [place] Urine Culture - Final Complete 01/29/25 10:43 Sputum Gram Stain - Final Complete 01/29/25 10:43 Sputum Respiratory Culture - Final Complete Labs and/or images reviewed: Labs reviewed by me, Image(s) reviewed by me Problem List/Assessment/Plan Problem List/Assessment/Plan This is a 24-year-old male with no significant past medical history underwent elective laparoscopic cholecystectomy on 01/28 at [facility] (due to cholelithiasis), on 2nd day postop at home became lethargic and subsequently coded. ROSC was achieved with CPR, abdominal CT scan showed intra-abdominal hematoma, underwent emergent laparotomy and drained about 500-750 thrombosed and dark blood. NEURO: Hypoxic encephalopathy, due to cardiac arrest Anoxic brain injury * RASS Score -5 * Head CT from 01/30 shows, Cerebellar tonsilar herniation. There is sulcal and ventricular effacement. The basal cisterns are effaced. Loss of mario-white matter differentiation is noted. * Head CT on 02/11 shows worsening diffuse cerebral edema in the setting of anoxic brain injury * BRNNM-brain imaging, shows absence blood flow, findings suggest brain in the appropriate clinical setting * Plan: transfering to LTAC CARDIOVASCULAR: NSTEMI possible type 2 Status post cardiac arrest Distributive shock (vasoplegia)/neurogenic shock/septic shock vasopressin * Cardiology on the board, recommended medical management * Echo from 01/30 shows,Technically limited study secondary to poor acoustic windows, normal LV size and function, 55-60% * Plan: Levophed, midodrine 10 mg t.i.d. hydrocortisone 50 mg q.6 hours PULMONARY: Acute hypoxic respiratory failure, likely due to anoxic brain injury Cxr showed bilateral mild pulmonary vascular congestion GASTROINTESTINAL: Acute transaminitis secondary to hypovolemic shock Coagulopathy Hypoalbuminemia Status post laparoscopic cholecystectomy Status post exploratory laparotomy for hemoperitoneum Transaminitis, likely due to TPN GENITOURINARY: HARLEEN secondary to hypovolemic shock * Nephrology on the board, performed dialysis on 09/22 * IV Bumex 2 mg b.i.d. METABOLIC: Severe anion gap metabolic acidosis due to lactic acidosis Hypernatremia Grade 2 obesity, BMI 35.7 kg per m2 Hypoglycemia HEME: Severe anemia, due to bleeding * Received 3 units of PRBC, 2 units of FFP and 1 unit of cryoprecipitate * Monitor H&H and epoetin fiona INFECTIOUS DISEASE: Leucocytosis Lactic acidosis * Urine culture, blood culture and respiratory culture shows no growth * On Zosyn DIET: TPN DVT prophylax: Hold GI prophylaxis: Protonix Code status: Full code LINES/DRAINS/ACCESS: ETT: Intubated on 01/29 IV access: Lt IJ placed on 01/29/25 left subclavian, tunneled dialysis catheter placed on 02/14 Drips: On Levophed Mora catheter: Placed on 01/29 DISPOSITION: ICU status Patient's status discussed with the patient's mother at the bedside. Critical care time spent more than 57 minutes, including patient care, chart review, and updating the family. Excluding any procedures. Case discussed with Dr. Kay Plan discussed with: Other Dietary Evaluation Review Recommendations by RD: PPN/TPN Comments: 1) Increase TPN rate to meet at least 75% of estimated daily needs 2) Advance to renal cardiac diet when medically feasible, pending ST approval 3) Follow-up with cardiology, pulmonology, nephrology, neurology, and gastroenterology 4) Continue to monitor I&O, labs, and skin integrity Expected Outcomes/Goals: 1) nutritional support to meet at least 75% of estimated daily needs 2) labs and wound to improve 3) diet to advance 4) gradual wt loss 5) f/u in 2-3 days ARNOLD MUHAMMAD RESDIRONNI Feb 23, 2025 13:40
[2025-02-23] MEDS: HYDROCORTISONE SOD SUCC 100 MG/2ML INJ VIAL IV ONE (15:04)
[2025-02-23] MEDS: HYDROCORTISONE SOD SUCC 100 MG/2ML INJ VIAL IV SCH (17:48)
[2025-02-23] MEDS: phytonadione 5 MG in SODIUM CHL 0.9% 50 ML IV ONE (19:41)
--- NOTE | 2025-02-23 20:06 | DVHPN2 ---
Progress Note Date Seen: Feb 23, 2025 Has the PT tested + for MRSA If YES, has PT been informed?: No Medical Necessity Reason Pt with a Central, PICC or Fol: Yes The following are medically ne: Mora Catheter Reason for mora catheter: Nakul. Abd Surgery, Strict I&O, Total Immobilization Subjective Review of Systems Pt's mother and bother at the bedside. 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 it was a very beautiful experience and they were evidently very moved, emotional and uplifted by the experience. Per RN had high RV (>300 mL). TB restarted after 6 hrs. Still oozing from PEG and tracheostomy. Levophed off. Vasopressin was just weaned to 0.02 mcg. Producing urine. Hypothermic Objective vital signs Vital Sign Date Time Temp Pulse Resp B/P (MAP) Pulse Ox O2 Delivery O2 Flow Rate FiO2 02/23/25 19:36 141/109 02/23/25 18:45 96.1 79 10 95 205.0 02/23/25 18:40 30 02/23/25 18:00 Mechanical Ventilator+ Total Intake and Output 02/22/25 02/22/25 02/23/25 15:00 23:00 07:00 Intake Total 749.878 ml 816.313 ml 911.9 ml Output Total 150 ml 400 ml Balance 749.878 ml 666.313 ml 511.9 ml medications Current Medications Medications Dose Ordered Sig/Serenity Route Start Time Stop Time Status Last Admin Dose Admin Levalbuterol HCl 0.625 mg Q4HR PRN NEB 01/29/25 20:00 02/22/25 06:31 0.625 MG Ipratropium [place] 0.5 mg Q4HPRN PRN NEB 01/29/25 20:00 02/22/25 06:31 0.5 MG Dextrose 50 ml UD IV 02/01/25 12:30 Sodium Chloride 10 ml QSHIFT@10,22 IV 02/04/25 22:00 02/23/25 10:27 10 ML Neomycin/ Polymyxin/ Bacitracin 1 applic DAILY TOP 02/06/25 10:00 02/23/25 10:27 1 APPLIC Norepinephrine Bitartrate 250 ml @ 0.938 mls/ hr Q24H IV 02/07/25 11:30 02/22/25 12:17 14.063 MLS/HR Artificial Tears 1 drop Q4HP PRN EACHEYE 02/08/25 07:30 02/21/25 21:29 1 DROP Enteral Nutritional Formula 1,000 ml 20 NG 02/11/25 23:15 02/21/25 09:28 1,000 ML Epoetin Gunnar-epbx 8,000 unit MWF@2100 SC 02/17/25 21:00 Hold 02/19/25 21:49 8,000 UNIT Dextrose/Sodium Chloride 1,000 ml @ 75 mls/hr [id number] IV 02/20/25 03:45 02/23/25 18:00 75 MLS/HR Midodrine 10 mg TID@0600,1200,1800 PO 02/21/25 12:00 02/23/25 18:00 10 MG Vasopressin 20 units/Sodium Chloride 100 ml @ 9 mls/hr Q11H7M IV 02/22/25 10:00 02/23/25 08:24 9 MLS/HR Bumetanide 12.5 mg/Miscellaneous 50 ml @ 2 mls/hr Q24H IV 02/22/25 10:00 02/22/25 21:26 2 MLS/HR Piperacillin Sod/ Tazobactam Sod 50 ml @ 12.5 mls/hr Q8H IV 02/23/25 10:00 02/23/25 18:00 12.5 MLS/HR Pantoprazole Sodium 40 mg DAILY IV 02/24/25 10:00 Hydrocortisone Sodium Succinate 50 mg Q6HR IV 02/23/25 18:00 Metoclopramide HCl 5 mg Q6HR IV 02/24/25 00:00 Examination Neuro. Unchanged. Dilated fixed pupils. No reflexes. CV. Hr 80s. BP 133/100, Levophed off. Vasopressin .02 mcg. Previous LSCV HD catheter site C/D/I. Right PC and PICC catheter exit sites remain C/D/I. Pulmonary: Tracheostomy in place. Sutures removed, Slit gauze replaced. Very small amount of oozing from site.C/D/I. Mechanical ventilator support 500/10/30%/+7. RR 10/min on vent display. GI: Soft, obese, nondistended and non tender. Incisions and dressing C/D/I. PEG in place. Small amount of sanguineous drainage. TF at 10 mL/hr . Mora catheter in place. Clear yellow urine in collection bag Extremities. No edema Resolved facial and neck edema. Mild orbital edema Skin: Stable jaundice. laboratory and microbiology Laboratory Tests 02/23/25 03:20 Test 02/23/25 03:20 Range/Units Serum Glucose 81 74-106 mg/dL Microbiology Date/Time Source Procedure Growth Status 02/20/25 09:30 Blood Blood Culture - Preliminary NO GROWTH AFTER 72 HOURS OF INCUBATION. Resulted 02/19/25 11:44 Trachea Gram Stain - Final Complete 02/19/25 11:44 Respiratory Culture - Final Klebsiella pneumoniae Complete 02/02/25 22:00 Urine - [place] Urine Culture - Final Complete 01/29/25 10:43 Sputum Gram Stain - Final Complete 01/29/25 10:43 Sputum Respiratory Culture - Final Complete Labs and/or images reviewed: Labs reviewed by me, Image(s) reviewed by me Problem List/Assessment/Plan Problem List/Assessment/Plan Neuro: Appreciate neurology input and assistance. CT revealed cerebral edema and tonsillar herniation.EEG no electric activity. Cerebral perfusion study confirmed no perfusion radiographically consistent with brain which was concordant with initial clinical diagnosis and EEG. However, pt continues demonstrating brainstem function as he is breathing over vent set rate. There seems to be autonomic dysfunction. Pt's BP fluctuating and RR. F/U (3rd) CT brain worsening cerebral edema and tonsillar herniation. CV: Hypotension, possible autonomic dysfunction and/or septic shock. Vasopressin .02 mcg. Wean as tolerated. Midodrine 10 mg TID via PEG. Cardiology assistance appreciated. Mechanical DVT prophylaxis. Unlikely PE (can't rule it out) but patient oxygenating well, no tachycardia. Pulmonary hypertension possibly unknowingly preexistent. Duplex negative for DVT Pulmonary: VDRF. S/p tracheostomy. CXR clear, x ATX and low lung voulmes. Sputum Cx Klebsiella pneumoniae sensitive to Zosyn. O2 Sat 95%. ABG normal. Continue ventilator support. Appreciate pulmonary medicine assistance. Pulmonary medicine following. GI: Continue BID GI prophylaxis. Hepatic shock. Elevated LFTs. Increasing TB, Mostly direct. Cholestasis versus retained stone. Doubt retained stones as rest of LFTs not increasing. Can't obtain MRCP "secondary to ventilator". Continue TF at 10 mL/hr. Reglan trial. Will attempt to further wean from vasopressors before advancing. Measure residual volume every 6 hrs. Hold for RV of 150 m or higher. : ARF/ATN. D5/1/2 NS at 75 mL/hr. Strict I&O. Bumex gtt. Mora to gravity. Appreciate nephrology assistance. Replace/correct electrolytes. HD per nephrology. Consider volume neutral HD. If possible. Heme/ID: WBC 13.9. Pending UCx. Hgb stable. VW Ag high. INR, pT and PPT mildly elevated. Vit K 5 mg IV x 1. Hematology believes secondary to inflammatory response/reaction. Minimizing blood draw frequency to avoid worsening anemia. Repeat labs AM. Appreciate hematology assistance. Continue Zosyn for Klebsiella pneumoniae PNA. Endocrine: Tight glycemic control. Skin: Skin care and pressure ulcer precautions. Plan discussed with: Other (RN. mother and brother) My Orders My Orders Orders - JITENDRA ZAMORA MD Procedure Category Date Status Time Piperacillin-Tazob PHA 02/23/25 In Process 2.25gm (Zosyn 2.25gm) 10:00 Metoclopramide PHA 02/24/25 In Process Injection (Reglan 00:00 Dietary Evaluation Review Recommendations by RD: PPN/TPN Comments: 1) Increase TPN rate to meet at least 75% of estimated daily needs 2) Advance to renal cardiac diet when medically feasible, pending ST approval 3) Follow-up with cardiology, pulmonology, nephrology, neurology, and gastroenterology 4) Continue to monitor I&O, labs, and skin integrity Expected Outcomes/Goals: 1) nutritional support to meet at least 75% of estimated daily needs 2) labs and wound to improve 3) diet to advance 4) gradual wt loss 5) f/u in 2-3 days JITENDRA ZAMORA MD Feb 23, 2025 20:06
[2025-02-23] MEDS: METOCLOPRAMIDE HCL 5MG/ml INJ 2ml VIAL IV SCH (23:49)
[2025-02-24] VITALS (118 sets, daily range): BP systolic 69–165; BP diastolic 30–111; PULSE 80–122; RESP 9–13; TEMP 96.1–98.1; O2SAT 89–100
[2025-02-24 04:31] LABS: Hematocrit 30.7 % (41.0-53.0); Hemoglobin 10.0 g/dL (13.5-17.5); Mean Corpuscular Hemoglobin 29.2 pg (28.0-32.0); Mean Corpuscular Volume 89.6 fL (80.0-100.0); Nucleated Red Blood Cells % 0.4 %
[2025-02-24 04:56] LABS: Alanine Aminotransferase 37 U/L (7-40); Anion Gap 18 (5-15); Calcium 8.9 mg/dL (8.7-10.4); Carbon Dioxide 21 mmol/L (20-31); Chloride 104 mmol/L (98-107); Sodium 143 mmol/L (136-145)
[2025-02-24 04:57] LABS: BUN/Creatinine Ratio 8.1 (10.0-20.0)
[2025-02-24 04:58] LABS: Albumin 3.8 g/dL (3.2-4.8); Total Protein 7.8 g/dL (5.7-8.2)
[2025-02-24 05:03] LABS: INR 1.25 (0.9-1.15); Partial Thromboplastin Time 36.7 SEC (24.5-34.5); Prothrombin Time 13.0 sec (9.3-11.8)
[2025-02-24 05:10] LABS: Alkaline Phosphatase 827 U/L (46-116); Bilirubin, Total 4.4 mg/dL (0.2-1.0); Blood Urea Nitrogen 70 mg/dL (9-23); Glucose 110 mg/dL (74-106); Potassium 6.0 mmol/L (3.5-5.1)
[2025-02-24] MEDS: InsuLIN REG 1unit/0.01ml Soln (100units/ml) IV ONE (05:45)
[2025-02-24] MEDS: CALCIUM GLUC 1,000mg/50ml-NS 50 ML IV ONE (05:50)
[2025-02-24] MEDS: SODIUM BICARB 8.4% 50Meq/50ml SYR INJ IV ONE (05:50)
[2025-02-24] MEDS: DEXTROSE (50%) 50ML SYRG IV ONE (05:50)
[2025-02-24] MEDS: FUROSEMIDE 20 MG/2 ML VIAL IV ONE (05:51)
[2025-02-24] MEDS: SODIUM ZIRCONIUM CYCL 10 GM PAK PO ONE (06:00)
[2025-02-24] MEDS: ALBUTEROL SULF 2.5 MG/0.5ML(0.5%) NEB SOLN NEB ONE (06:00)
[2025-02-24 06:02] LABS: Base Excess -5.6 mmol/L (-2.0-3.0)
[2025-02-24] MEDS ORDERED: PHYTONADIONE (VIT K)10 MG/ML 1ML VIAL SUBCUT ONE (07:00)
[2025-02-24] MEDS: SODIUM CHL 0.9% 1000 ML BAG XX ONE (07:00)
--- NOTE | 2025-02-24 07:03 | DVHPN2 ---
Progress Note Date Seen: Feb 24, 2025 Has the PT tested + for MRSA If YES, has PT been informed?: No Medical Necessity Reason Pt with a Central, PICC or Fol: Yes The following are medically ne: Mora Catheter Reason for mora catheter: Nakul. Abd Surgery, Strict I&O, Total Immobilization Subjective Review of Systems Per RN, off pressors until recently. Back on Vasopressin 0.01 mcg. Tachycardic 120s. Hyperkalemic. Given albuterol per Hyperkalemia protocol. High TF RV 600 mL. Had liquid green bowel movement. Still oozing from PEG and tracheostomy site Objective vital signs Vital Sign Date Time Temp Pulse Resp B/P (MAP) Pulse Ox O2 Delivery O2 Flow Rate FiO2 02/24/25 06:31 89/32 02/24/25 06:18 121 10 94 30 02/24/25 06:15 97.3 207.1 02/24/25 06:00 Mechanical Ventilator+ Total Intake and Output 02/23/25 02/23/25 02/24/25 15:00 23:00 07:00 Intake Total 756.751 ml 814 ml 642 ml Output Total 400 ml 670 ml Balance 756.751 ml 414 ml -28 ml medications Current Medications Medications Dose Ordered Sig/Serenity Route Start Time Stop Time Status Last Admin Dose Admin Levalbuterol HCl 0.625 mg Q4HR PRN NEB 01/29/25 20:00 02/22/25 06:31 0.625 MG Ipratropium Bishop 0.5 mg Q4HPRN PRN NEB 01/29/25 20:00 02/22/25 06:31 0.5 MG Dextrose 50 ml UD IV 02/01/25 12:30 Sodium Chloride 10 ml QSHIFT@10,22 IV 02/04/25 22:00 02/23/25 22:00 10 ML Neomycin/ Polymyxin/ Bacitracin 1 applic DAILY TOP 02/06/25 10:00 02/23/25 10:27 1 APPLIC Norepinephrine Bitartrate 250 ml @ 0.938 mls/ hr Q24H IV 02/07/25 11:30 02/22/25 12:17 14.063 MLS/HR Artificial Tears 1 drop Q4HP PRN EACHEYE 02/08/25 07:30 02/21/25 21:29 1 DROP Enteral Nutritional Formula 1,000 ml 20 NG 02/11/25 23:15 02/21/25 09:28 1,000 ML Epoetin Gunnar-epbx 8,000 unit MWF@2100 SC 02/17/25 21:00 02/19/25 21:49 8,000 UNIT Dextrose/Sodium Chloride 1,000 ml @ 75 mls/hr [id number] IV 02/20/25 03:45 02/23/25 18:00 75 MLS/HR Midodrine 10 mg TID@0600,1200,1800 PO 02/21/25 12:00 02/24/25 06:02 10 MG Vasopressin 20 units/Sodium Chloride 100 ml @ 9 mls/hr Q11H7M IV 02/22/25 10:00 02/23/25 08:24 9 MLS/HR Bumetanide 12.5 mg/Miscellaneous 50 ml @ 2 mls/hr Q24H IV 02/22/25 10:00 02/22/25 21:26 2 MLS/HR Piperacillin Sod/ Tazobactam Sod 50 ml @ 12.5 mls/hr Q8H IV 02/23/25 10:00 02/24/25 02:00 12.5 MLS/HR Pantoprazole Sodium 40 mg DAILY IV 02/24/25 10:00 Hydrocortisone Sodium Succinate 50 mg Q6HR IV 02/23/25 18:00 02/24/25 06:02 50 MG Metoclopramide HCl 5 mg Q6HR IV 02/24/25 00:00 02/24/25 06:02 5 MG Examination Neuro. Unchanged. Dilated fixed pupils. No reflexes. CV. Hr 110s-120s. BP 98/61. Vasopressin .01 mcg. Previous LSCV HD catheter site C/D/I. Right PC and PICC catheter exit sites remain C/D/I. Pulmonary: Tracheostomy in place. Sutures removed, Slit gauze replaced. No active bleeding at this time. C/D/I. Mechanical ventilator support 500/10/30%/+7. RR 10/min on vent display. GI: Soft, obese, nondistended and non tender. Incisions and dressing C/D/I. PEG in place.No active oozing at the time. TF held . Mora catheter in place. Clear yellow urine in collection bag Extremities. No edema Resolved facial and neck edema. Mild orbital edema Skin: Appears more jaundice. laboratory and microbiology Laboratory Tests 02/24/25 03:05 Test 02/24/25 03:05 Range/Units Serum Glucose 110 H 74-106 mg/dL Microbiology Date/Time Source Procedure Growth Status 02/20/25 09:30 Blood Blood Culture - Preliminary NO GROWTH AFTER 72 HOURS OF INCUBATION. Resulted 02/19/25 11:44 Trachea Gram Stain - Final Complete 02/19/25 11:44 Respiratory Culture - Final Klebsiella pneumoniae Complete 02/02/25 22:00 Urine - Mora [place] Urine Culture - Final Complete 01/29/25 10:43 Sputum Gram Stain - Final Complete 01/29/25 10:43 Sputum Respiratory Culture - Final Complete Labs and/or images reviewed: Labs reviewed by me Problem List/Assessment/Plan Problems(with codes): (1) ARF (acute renal failure) (2) Ventilator dependent (3) Tonsillar hernia into foramen magnum (4) Cerebral edema (5) Cerebral edema due to anoxia (6) Cardiopulmonary arrest with successful resuscitation (7) 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 CT revealed cerebral edema and tonsillar herniation.EEG no electric activity. Cerebral perfusion study confirmed no perfusion radiographically consistent with brain which was concordant with initial clinical diagnosis and EEG. However, pt continues demonstrating brainstem function as he is breathing over vent set rate. Fluctuating HR, RR, BP and temperature. Could be secondary to autonomic dysfunction. F/U (3rd) CT brain worsening cerebral edema and tonsillar herniation. CV: Tachycardia and hypotension, possible autonomic dysfunction and/or septic shock. Vasopressin .01 mcg. Wean as tolerated. Midodrine 10 mg TID via PEG. Cardiology assistance appreciated. Mechanical DVT prophylaxis. Unlikely PE (can't rule it out) but patient oxygenating well, no tachycardia. Pulmonary hypertension possibly unknowingly preexistent. Duplex negative for DVT Pulmonary: VDRF. S/p tracheostomy. Will obtain CXR. ABG- Metabolic acidosis. Will increase Vt to 550. Sputum Cx Klebsiella pneumoniae sensitive to Zosyn. O2 Sat 95%. ABG normal. Continue ventilator support. Appreciate pulmonary medicine assistance. Pulmonary medicine following. GI: Continue BID GI prophylaxis. Hepatic shock. Elevated LFTs. Increasing TB, Mostly direct. Cholestasis versus retained stone. Doubt retained stones as rest of LFTs not increasing. Can't obtain MRCP "secondary to ventilator". Hold TF. : Hyperkalemia. Per RN scheduled for HD today. ARF/ATN. D5/1/2 NS at 75 mL/hr. Strict I&O. Bumex gtt. Mora to gravity. Appreciate nephrology assistance. Replace/correct electrolytes. HD per nephrology. Consider volume neutral HD. If possible. Heme/ID: WBC normal. Pending UCx. Hgb stable. VW Ag high. Improving INR, PT and PPT mildly elevated. Vit K 5 mg SQ x 1. Hematology believes secondary to inflammatory response/reaction. Minimizing blood draw frequency to avoid worsening anemia. Repeat labs AM. Appreciate hematology assistance. Continue Zosyn for Klebsiella pneumoniae PNA. RN has stated twice that UCx was collected when ordered. However, no records of collection. Will follow up. Endocrine: Tight glycemic control. Skin: Skin care and pressure ulcer precautions. Plan discussed with: Other (RN) My Orders My Orders Orders - JITENDRA ZAMORA MD Procedure Category Date Status Time Piperacillin-Tazob PHA 02/23/25 In Process 2.25gm (Zosyn 2.25gm) 10:00 Metoclopramide PHA 02/24/25 In Process Injection (Reglan 00:00 Abg W/ Co-Ox RT 02/24/25 Logged 05:25 Phytonadione (Vitamin PHA 02/24/25 Logged K) 07:00 Chest Portable XY 02/24/25 Verified 06:51 Dietary Evaluation Review Recommendations by RD: PPN/TPN Comments: 1) Increase TPN rate to meet at least 75% of estimated daily needs 2) Advance to renal cardiac diet when medically feasible, pending ST approval 3) Follow-up with cardiology, pulmonology, nephrology, neurology, and gastroenterology 4) Continue to monitor I&O, labs, and skin integrity Expected Outcomes/Goals: 1) nutritional support to meet at least 75% of estimated daily needs 2) labs and wound to improve 3) diet to advance 4) gradual wt loss 5) f/u in 2-3 days JITENDRA ZAMORA MD Feb 24, 2025 07:03
[2025-02-24] MEDS: NOREPINEPHRINE 8 MG/250ML KIT 250 ML IV SCH (07:30)
--- NOTE | 2025-02-24 07:43 | ECG ---
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
[2025-02-24] MEDS: ALBUMIN 25% 100 ML IV PRN (07:50)
[2025-02-24] MEDS: ALBUMIN 25% 100 ML IV ONE (07:52)
--- NOTE | 2025-02-24 09:09 | DVH ---
EXAM: XY CHEST PORTABLE HISTORY: VDRF COMPARISON: XY CHEST PORTABLE on DOS: 02/23/25, XY CHEST PORTABLE on DOS: 02/22/25, XY CHEST PORTABLE on DOS: 02/20/25, XY CHEST PORTABLE on DOS: 02/19/25, XY CHEST XRAY 1 VIEW on DOS: 02/17/25 TECHNIQUE: Portable upright AP view of the chest was performed. FINDINGS: Tracheostomy and right chest tunneled dialysis catheter are re-identified. Lung volumes are low. The re are bilateral lung base infiltrates and effusions, greater on the left. There is interstitial pro minence, increased on the left since the previous chest x-rays. No pneumothorax. Cardiac margins are obscured. IMPRESSION: 1. Tracheostomy ventilation. 2. Increased interstitial prominence in the left lung may be due to asymmetric CHF or interstitial pn eumonia. 3. Low lung volumes and bilateral lung base opacities.
--- NOTE | 2025-02-24 10:17 | DVHPN2 ---
Progress Note - Dictate Date Seen: Feb 24, 2025 Has the PT tested + for MRSA If YES, has PT been informed?: No Medical Necessity Reason Pt with a Central, PICC or Fol: Yes The following are medically ne: Mora Catheter Reason for mora catheter: Nakul. Abd Surgery, Strict I&O, Total Immobilization vital signs Vital Sign Date Time Temp Pulse Resp B/P (MAP) Pulse Ox O2 Delivery O2 Flow Rate FiO2 02/24/25 09:32 101 10 112/76 (88) 94 30 02/24/25 08:15 97.3 207.1 02/24/25 08:00 Mechanical Ventilator+ Total Intake and Output 02/23/25 02/23/25 02/24/25 15:00 23:00 07:00 Intake Total 756.751 ml 814 ml 719 ml Output Total 400 ml 670 ml Balance 756.751 ml 414 ml 49 ml medications Current Medications Medications Dose Ordered Sig/Serenity Route Start Time Stop Time Status Last Admin Dose Admin Levalbuterol HCl 0.625 mg Q4HR PRN NEB 01/29/25 20:00 02/22/25 06:31 0.625 MG Ipratropium [place] 0.5 mg Q4HPRN PRN NEB 01/29/25 20:00 02/22/25 06:31 0.5 MG Dextrose 50 ml UD IV 02/01/25 12:30 Sodium Chloride 10 ml QSHIFT@10,22 IV 02/04/25 22:00 02/23/25 22:00 10 ML Neomycin/ Polymyxin/ Bacitracin 1 applic DAILY TOP 02/06/25 10:00 02/23/25 10:27 1 APPLIC Artificial Tears 1 drop Q4HP PRN EACHEYE 02/08/25 07:30 02/21/25 21:29 1 DROP Enteral Nutritional Formula 1,000 ml 20 NG 02/11/25 23:15 02/21/25 09:28 1,000 ML Epoetin Gunnar-epbx 8,000 unit MWF@2100 SC 02/17/25 21:00 Hold 02/19/25 21:49 8,000 UNIT Dextrose/Sodium Chloride 1,000 ml @ 75 mls/hr [id number] IV 02/20/25 03:45 02/23/25 18:00 75 MLS/HR Midodrine 10 mg TID@0600,1200,1800 PO 02/21/25 12:00 02/24/25 06:02 10 MG Vasopressin 20 units/Sodium Chloride 100 ml @ 9 mls/hr Q11H7M IV 02/22/25 10:00 02/23/25 08:24 9 MLS/HR Bumetanide 12.5 mg/Miscellaneous 50 ml @ 2 mls/hr Q24H IV 02/22/25 10:00 02/22/25 21:26 2 MLS/HR Piperacillin Sod/ Tazobactam Sod 50 ml @ 12.5 mls/hr Q8H IV 02/23/25 10:00 02/24/25 02:00 12.5 MLS/HR Pantoprazole Sodium 40 mg DAILY IV 02/24/25 10:00 Hydrocortisone Sodium Succinate 50 mg Q6HR IV 02/23/25 18:00 02/24/25 06:02 50 MG Metoclopramide HCl 5 mg Q6HR IV 02/24/25 00:00 02/24/25 06:02 5 MG Albumin Human 100 ml @ 100 mls/hr PRN PRN IV 02/24/25 07:45 02/24/25 23:59 02/24/25 09:05 100 MLS/HR Norepinephrine Bitartrate 250 ml @ 3.75 mls/hr Q24H IV 02/24/25 08:45 laboratory and microbiology Laboratory Tests 02/24/25 03:05 Test 02/24/25 03:05 Range/Units Serum Glucose 110 H 74-106 mg/dL Assessment/Plan Still in ICU. On vent support. No gross higher brain reflexes. Pupils are dilated and fixed. 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 It also revealed increased Pulmonary Artery Pressure in favor of component of Pulmonary Hypertension. s/p Hemodialysis Received blood and platelet transfusion repeatedly Patient is a 24-year-old gentleman who was originally brought to the hospital for post arrest. Patient is seen in postop area. Patient is intubated and on multiple pressor supports. Patient is not source of history. Information was obtained by reviewing the chart, talking to patient's family/mother and communicating with staff and reviewing outside records ([facility]). Patient did have elective outpatient laparoscopic cholecystectomy in [facility] on January 28 2025. As per mother, after going home, patient was feeling very hungry and was eating and drinking a lot. He started feeling abdominal pain with nausea at night and in the morning was short of breath. As per mother: patient has stopped breathing in the morning and family called 911. As per mother, as per guidance of 911, family started CPR until EMS arrived. Patient was intubated and was brought to the hospital by EMS. Since arrival to [facility], patient was seen by surgeon who took the patient to operating room and performed laparotomy (there was hepatic hematoma). Postoperatively, the patient has remained hypotensive. There is signs for multiorgan involvement. Patient was not alert and did not complain of any chest pains. Labs revealed increased troponin. Cardiology is involved for cardiac aspects of care and abnormal troponin. First available EKG reveals sinus tachycardia with no specific ST-T changes. Telemetry had revealed sinus tachycardia throughout the stay. Patient is found to have significant anemia and is receiving blood transfusion at the time of evaluation. It is of note that at the time of evaluation patient does not have any reflexes. Intubated. Mucosa pale. Dilated and fixed pupils, Scattered rhonchi in the lungs. Cardiac: Tachycardic. No murmur. Abdomen is covered by dressing. Extremities do not reveal any edema. Dorsalis pedis is 1+ bilateral. Patient does not respond to any stimuli. Reported past medical history includes asthma and obesity. Reportedly, on January 23, 2025: Patient presented to [facility] for abdominal pain/nausea/vomiting. At that point the problems were ongoing for few weeks. In [facility], CT of the abdomen and MRCP were performed. Patient was seen by GI/surgery. Patient was found to have gallstones. Patient was discharged and later on January 28, 2025 presented back to [facility] for elective laparoscopy cholecystectomy. Patient was discharged home from [facility] after laparoscopic cholecystectomy. As per mother, patient does not have baseline history of any cardiac history. As per mother, patient was using marijuana. Mother denies any previous substance abuse besides marijuana. No specific family history is reported On January 23, 2025, labs in [facility] revealed creatinine of 0.84, hemoglobin of 15.2 and troponin (high sensitive) of <3. At that point EKG was normal WBC: 20.1 - 19.0 - 22.7 - 20.6 - 28.4 - 20.3 - 21.0 - 25.2 - 29.8 - 29.5 - 29.0 - 26.2 - 21.7 - 19.7 - 17.7 - 15.3 - 12.2 - 10.5 - 11.2 - 13.0 - 10.7 - 9.0 - 9.0 - 10.3 - 10.3 - 10.1 - 11.0 - 12.4 - 13.0 - 12.0 - 15.1 - 13.8 - 14.9 - 13.1 - 10.2 Hemoglobin: 8.3 - 6.5 - 12.1 - 11.1 - 12.1 - 9.3 - 9.2 - 9.1 - 8.4 - 9.0 - 9.5 - 8.8 - 8.4 - 8.0 - 9.7 - 9.6 - 9.8 - 9.6 - 9.7 - 9.8 - 9.1 - 8.5 - 8.8 - 8.9 - 8.7 - 8.8 - 9.7 - 9.1 - 7.9 - 8.2 - 10.1 - 9.5 - 9.7 - 9.6 - 10.0 Fibrinogen: 108 - 316 - 537 - 689 - >860 Creatinine: 4.02 - 3.78 - 3.90 - 3.95 - 4.34 - 5.44 - 6.05 - 6.73 - 7.31 - 7.77 - 6.64 - 7.30 - 4.91 - 5.32 - 7.40 - 5.98 - 7.66 - 6.28 - 7.71 - 8.67 - 6.87 - 5.62 - 7.59 - 8.95 - 7.51 - 9.04 - 6.23 - 7.09 - 5.33 - 6.90 - 4.95 - 6.31 - 7.51 - 6.00 - 7.40 - 8.68 Potassium: 5.6 - 4.6 - 4.8 - 3.9 - 2.9 - 2.9 - 3.6 - 3.8 - 4.9 - 5.4 - 6.0 - 5.1 - 5.3 - 6.1 - 6.0 - 4.6 - 4.4 - 4.3 - 3.5 - 3.4 - 3.7 - 4.5 - 5.7 - 5.2 - 4.0 - 3.8 - 4.1 - 4.5 - 4.9 - 4.7 - 4.6 - 4.4 - 4.6 - 3.7 - 3.5 - 4.5 - 3.7 - 5.1 - 6.0 AST/ALT: 676/700 - 2327/6 - 4636/2521 - -/1995 - 2500/1989 - 0/1821 - 808/995 - 586/735 - 456/444 - 312/290 - 237/163 - 215/125 - 190/87 - 200/74 - 202/66 - 189/53 - 186/44 - 186/45 - 192/38 - 193/34 - 214/34 - 195/30 - 261/42 - 241/47 - 246/63 - 265/69 - 208/52 - 177/46 - 168/42 - 146/37 Lactic acid: 17.9 - 17.2 - 11.4 Troponin (high sensitive): 2973 - 2712 - 4364 - 7493 - 7474 TSH: 11.05 Urine Toxicology: positive for Fentanyl and Benzodiazepine Chest x-ray revealed: Lines and Tubes: Endotracheal tube projects 2.2 cm above the meghan. Right internal jugular central venous catheter tip projects over superior vena cava. Lungs: No focal consolidation. Low lung volumes. Pleura: No effusion. No pneumothorax. Cardiomediastinal contours: Unremarkable Bones: No acute osseous abnormality. IMPRESSION: Lines and tubes as above. Low lung volumes. Repeat chest x-ray revealed: IMPRESSION: Lines and tubes in satisfactory position. Mild increased pulmonary vascular congestion Repeat chest xry revealed: IMPRESSION: Lines and tubes in satisfactory position. Mild increased pulmonary vascular congestion Repeat chest xry revealed: IMPRESSION: 1. Low lung volumes with concomitant crowding of the pulmonary vasculature. 2. No evidence of focal consolidation. 3. Lines and tubes unchanged. Repeat chest xry revealed: IMPRESSION: 1. Slight interval retraction of the endotracheal tube such that the tip now projects approximately 4.7 cm above the level of the meghan. Remaining lines and tubes unchanged. 2. Otherwise no significant change compared to prior exam. Repeat chest xry revealed: IMPRESSION: 1. Slight interval advancement of endotracheal tube such that the tip now projects approximately 1.7 cm above the level of the meghan. Remaining lines and tubes unchanged. 2. Otherwise no significant change compared to prior exam. Repeat chest xry revealed: IMPRESSION: 1. Slight interval retraction of the endotracheal tube such that the tip now projects approximately 3.3 cm above the level of the meghan. Remaining lines and tubes unchanged. 2. No evidence of acute cardiopulmonary process. Repeat chest xry revealed: IMPRESSION: 1. Endotracheal tube in appropriate position. Remaining lines and tubes unchanged. 2. No evidence of acute cardiopulmonary process. Repeat chest xry revealed: IMPRESSION: 1. Small right pleural effusion. 2. Lines and tubes unchanged. Repeat chest xry revealed: IMPRESSION: 1. Small right pleural effusion. 2. Lines and tubes unchanged. Repeat chest xry revealed: IMPRESSION: 1. Small bilateral pleural effusions. 2. Lines and tubes unchanged. Repeat chest xry revealed: IMPRESSION: 1. Slight interval advancement of the endotracheal tube. Remaining lines and tubes unchanged. 2. No evidence of acute cardiopulmonary process. Repeat chest xry revealed: IMPRESSION: 1. Slight interval retraction of the endotracheal tube such that the tip now projects approximately 3.3 cm above the level of the meghan. Remaining lines and tubes unchanged. 2. No evidence of acute cardiopulmonary process. Repeat chest xry revealed: Bowel gas pattern is unremarkable. Enteric tube tip projects over the expected region of the stomach. The lung bases demonstrates bibasilar atelectasis. The lower pelvis is collimated from field of view. No acute osseous abnormality identified. Repeat chest xry revealed: Lines and Tubes: Endotracheal tube tip projects approximately 5.1 cm above the level of the meghan. Enteric catheter terminates within the gastric lumen. Right peripherally inserted central catheter tip and left subclavian central venous catheter tip project over the distal superior vena cava. Lungs: Clear Pleura: No effusion. No pneumothorax. Cardiomediastinal contours: Unremarkable Bones: Unremarkable IMPRESSION: 1. No radiographic evidence of acute cardiopulmonary abnormality. 2. Lines and tubes as above. Repeat chest xry revealed: IMPRESSION: 1. Stable position of the support lines and tubes. 2. Bibasilar airspace disease which may reflect atelectasis and/or pneumonia. Possible small bilateral pleural effusions. Repeat chest xry revealed: IMPRESSION: 1. Lines and tubes unchanged. 2. Persistently diminished lung volumes with concomitant exaggeration of the pulmonary vasculature. No evidence of acute cardiopulmonary process. Repeat chest xry revealed: IMPRESSION: 1. No acute cardiopulmonary disease. 2. Lines and tubes as above. Repeat chest xry revealed: IMPRESSION: 1. Intervally placed right IJ catheter projects in appropriate remaining support devices are stable.2. No other significant change from the previous study. Persistent low lung volumes with vascular crowding and basilar atelectasis. Repeat chest xry revealed: IMPRESSION: Heart is stable in size. There are low lung volumes with probable small left pleural effusion and bibasilar atelectasis. Support lines and tubes appear unchanged in satisfactory position. No pneumothorax. No significant interval change. Repeat chest xry revealed: IMPRESSION: Unchanged bibasilar opacities, likely atelectasis with small pleural effusions Repeat chest xry revealed: IMPRESSION: 1. No significant change from the previous study. Stable support devices. Persistent left pleural effusion and bibasilar airspace disease. Repeat chest xry revealed: IMPRESSION: 1. Interval removal of enteric catheter. Remaining Lines and tubes unchanged. 2. Otherwise, no significant change compared to prior exam allowing for differences in technique. Repeat chest xry revealed: IMPRESSION: Low lung volumes with bibasilar subsegmental atelectasis. Repeat chest xry revealed: IMPRESSION: 1. Tracheostomy ventilation. 2. Low lung volumes and bilateral lung base atelectasis versus scarring re-identified. Repeat chest xry revealed: IMPRESSION: 1. Tracheostomy ventilation. 2. Increased interstitial prominence in the left lung may be due to asymmetric CHF or interstitial pneumonia. 3. Low lung volumes and bilateral lung base opacities. Brain scan revealed: FINDINGS: Absence of cerebral blood flow is noted along with no brain parenchymal radiotracer uptake. Increased activity is seen in the central face likely representing vascular shunting consistent with the so-called "hot nose" sign. Findings suggest brain however clinical correlation is necessary. IMPRESSION: Findings described above, which would be consistent with brain in the appropriate clinical setting, however clinical correlation is needed. CT of the chest/abdomen/pelvis revealed: IMPRESSION: 1. Hepatic hematoma measuring up to approximately 8.6 cm in greatest dimension, as described above, with hemorrhage extending beyond the liver capsule and into the right pericolic gutter as well as into the pelvis. No definite active arterial bleeding is seen on this exam, although limited evaluation due to the timing of contrast, as this was not a CTA exam. 2. Postsurgical changes of cholecystectomy. 3. Dilated fluid-filled small bowel loops, may be due to postoperative ileus. No small bowel obstruction. 4. Small volume pneumoperitoneum, likely due to recent surgery. Small volume of gas are seen in the upper ventral abdomen from the recent surgery. 5. Dependent atelectasis in the lower lobes. Otherwise, no acute disease in the chest. 6. Endotracheal tube and enteric tube in place. 7. Atrophic right kidney incidentally noted. 8. Additional findings as described above. Critical findings Critical Result: Acute hepatic hematoma with hemorrhage extending beyond the liver capsule into the adjacent portions of the abdomen and into the pelvis as detailed above. Repeat CT of chest/abdomen/pelvis revealed: There is limited interpretation of the chest, abdomen and pelvis without administration of intravenous contrast. Endotracheal tube tip terminates just at the meghan / left main bronchus. Diffuse bilateral pulmonary airspace consolidation bilaterally significantly increased. Bilateral lower lobe lobar consolidation/ atelectasis, increased from prior. Small bilateral pleural effusions. There is extensive edema/ stranding within the upper anterior chest, neck region/supraclavicular region. There is some hyperdensity within this region which could represent components of hematoma / blood products. Heterogeneous appearance of the thyroid gland. Right IJ catheter terminating at the cavoatrial junction. Adrenal glands unremarkable in shape. Perisplenic hematoma. Interval postsurgical changes in the right upper quadrant of the abdomen. There appears to be surgicel/gaseous collection within the previous hematoma cavity, likely representing surgicel. There is a radiopaque density within the resection cavity as well which measures 6.2 x 4.6 cm.. Postoperative changes of the right anterior abdomen with soft tissue emphysema. Small amount of pneumoperitoneum Surgical drainage catheter terminating in the right upper quadrant of the abdomen Right renal parenchymal atrophy. Left kidney demonstrates perinephric edema / stranding. No left hydronephrosis. Nasogastric tube projects towards the distal stomach. Moderate distention small bowel loops. Rectal catheter. Moderate distention of the large bowel loops. Normal appendix. Abdominal aorta normal in caliber. Small amount of ascites fluid/ mesenteric edema. Bladder decompressed by Mora catheter. Soft tissue edema /anasarca. Mesenteric edema. Small amount of ascites fluid. The osseous structures are stable. IMPRESSION: Limited evaluation without contrast. Interval evacuation of the right upper quadrant hematoma. Surgicel within the resection cavity. No significant interval development of new hematoma. There are 2 radiopaque lap pads within the resection cavity . Findings reviewed with Dr. Ledesma at 11:51 a.m. on 01/30/2025 Perisplenic hematoma, similar to previous examination. Extensive bilateral pulmonary airspace consolidation, significantly increased from previous examination. Small bilateral pleural effusions. Right upper quadrant drainage catheter. Pneumoperitoneum. Soft tissue edema / anasarca. Small amount of ascites fluid/ mesenteric edema. Extensive edema within the anterior chest, neck region. Heterogeneous appearance thyroid gland. Other findings as described. CT of the head revealed: IMPRESSION: 1. No evidence of acute intracranial abnormality. Repeat CT of head revealed: FINDINGS: Cerebellar tonsilar herniation. There is sulcal and ventricular effacement. The basal cisterns are effaced. Loss of mario-white matter differentiation is noted. The skull and visible facial bones are intact. The paranasal sinuses, mastoid air cells and middle ear cavities are well-aerated. The soft tissues of the scalp are unremarkable. IMPRESSION: Diffuse cerebral edema with cerebellar tonsillar herniation. Recommend MRI brain for further evaluation. Repeat CT of head revealed: FINDINGS: There is diffuse low attenuation throughout the brain with increased effacement of the ventricles and complete sulcal effacement. There is cerebellar tonsillar herniation. The orbits are normal. There is moderate mucosal thickening within the paranasal sinuses and mastoid air cells. The soft tissues and osseous structures appear within normal limits. IMPRESSION: 1. Findings as above suggesting worsening diffuse cerebral edema in the setting of anoxic brain injury in the given clinical setting. Further clinical correlation is suggested. CT of Neck revealed: IMPRESSION: Limited evaluation without contrast. Extensive soft tissue edema within the neck extending into the anterior / upper chest and anterior mediastinum . Retropharyngeal edema. Heterogeneous appearance of the thyroid gland. Inferior cerebellar tonsillar herniation better seen on the prior CT Renal Ultrasound revealed: IMPRESSION: 1. Right kidney not visible. 2. Left kidney is enlarged. 3. No hydronephrosis. Venous duplex of lower ext revealed: IMPRESSION: NO SONOGRAPHIC EVIDENCE FOR DEEP VENOUS THROMBOSIS IN THE RIGHT LOWER EXTREMITY VEINS. Repeat (bilateral) Venous duplex of lower ext revealed: Impression: 1. No right or left femoropopliteal venous thrombosis. EEG reported: This is a remarkably abnormal EEG, this EEG seen in severe cerebral dysfunction due to metabolic/hypoxic encephalopathy or medication effects, unless this is caused by reversible etiology, this EEG is suggestive of a poor prognosis for meaningful recovery, please correlate clinically. Arrival EKG revealed sinus tachycardia with nonspecific ST-T changes Tele reveals sinus tachycardia Echocardiogram revealed: Technically limited study secondary to poor acoustic windows. Left ventricle: Left ventricle was normal-sized with normal systolic function. LVEF was 55-60%. No gross wall motion abnormality was seen. Right ventricle was mildly dilated with normal systolic function. Left atrium was normal-sized. Right atrium was mildly dilated. Aortic valve: Aortic valve was not well visualized. There was no aortic insufficiency/stenosis. There was no mitral regurgitation. There was trace tricuspid regurgitation. Pulmonary valve was not well visualized. IVC was not visualized. Right ventricular systolic pressure was assessed around 48 mm Hg. There was no pericardial effusion. Patient is a 24-year-old gentleman who presented with post arrest. It seems that the patient had hemorrhagic (intra-abdominal) presentation. Patient did have elective laparoscopic cholecystectomy the day before presentation. On the day of presentation, the patient was taken back to operating room and this time Laparotomy was done for hepatic hematoma. Patient does have multiorgan involvement. Clinically there is no brainstem reflexes. Shock liver/acute renal failure is considered. Troponin has been high. EKG did not reveal any STEMI. Presentation could be high troponin secondary to demand physiology. Patient does not have any risk factors for baseline coronary artery disease. In ideal scenario, ischemic workup/cardiac catheterization could be more revealing. Unfortunately, the patient does have acute renal failure which could be worsened by cardiac catheterization at this point. As there was no higher brain functions the suggestion is to wait and see if patient regains any higher brain function. It is of note that during cardiac catheterization, the patient may need some anticoagulation/antiplatelets. At this point patient is having significant anemia/bleeding and receiving blood transfusion and holding off of scenario forcing Anticoagulation/antiplatelets is advised. I had a long discussion with family members and Mother (repeatedly). Clinically patient has multiorgan failure. Secondary to active bleeding, we will avoid anticoagulation/antiplatelets for now. Being managed in ICU. Was taken to OR repeatedly. Still no reflexes. Echocardiogram revealed no WMA and also revealed good EF. It also revealed increased Pulmonary Artery Pressure in favor of component of Pulmonary Hypertension. Review of Echo images revealed good right ventricular systolic function. Not typical for Pulmonary Emboli. Still, PE cannot be ruled out. If PE is ruled out, then it is possible that patient had Pulmonary Hypertension from before (Baseline history of Asthma may actually reflect it). s/p PRBC transfusion (multiple). Being followed by Surgery, Nephrology, Hematology, Pulmonary, Neurology and GI. . Repeat imaging revealed cerebellar tonsillar herniation. Neurology diagnosed Hypoxic/Metabolic Encephalopathy also. EEG findings question meaningful recovery. Neurology declared patient: brain . Neurology second opinion was in favor of Anoxic/Hypoxic Encephalopathy. Repeat imaging of brain revealed worsening diffuse cerebral edema and also again revealed cerebellar tonsillar herniation. Family are contemplating Trach/PEG. Patient is seen by GI. s/p Tracheostomy. s/p PEG. s/p repeated PRBC transfusion. On pressure support. s/ p Arrest Intra-abdominal bleeding Hepatic hematoma Multiorgan failure, due to shock Shock liver Lactic Acidosis Acute renal failure Acute respiratory failure, on vent support Status post laparotomy Status post laparoscopic cholecystectomy Abnormal troponin, evaluated to reflect possible demand physiology History of gallstones History of asthma Obesity History of marijuana abuse Consumptive Coagulopathy / DIC Pulmonary Hypertension Cerebellar tonsillar Herniation. Encephalopathy, hypoxic/metabolic Renal failure, started on hemodialysis Brain scan questions brain Anoxic Encephalopathy s/p Tracheostomy s/p PEG Hypotension on pressure support, Cardiac suggestion for management: Manage in ICU Follow-up electrolytes and kidney function tests and correct abnormalities Evaluation and management of respiratory failure as per Pulmonary Evaluation and management of Cerebellar tonsillar herniation and worsening cerebral edema as per Neurology/surgery/primary team V/Q scan could not be completed Anoxic/Hypoxic Encephalopathy Echocardiogram revealed no WMA and also revealed good EF. It also revealed increased Pulmonary Artery Pressure in favor of component of Pulmonary Hypertension. Hematology follow up (to comment on prophylaxis / treatment of Pulmonary Emboli) Surgical follow up Nephrology follow up (started on hemodialysis) and Hematology follow up Patient is seen by GI On levophed/vasopressin: goal of MAP: above 55 mmHg On Midodrine: 10 mg TID DVT prophylaxis as per primary team (compression stocking Vs Lovenox..) Long-term prognosis depends on the above and most importantly regaining of the higher brain function: looks very grim Ischemic workup may be considered only after regaining higher brain function or any special change in clinical presentation Further evaluation and management depends on the above and clinical course A total of 75 minutes was spent reviewing the patient record, examining the patient, making a diagnostic and therapeutic plan, discussing this plan with medical personnel, following up on diagnostic studies and following the patient for clinical stability excluding any and all procedures. At least 50% of this time was spent in direct, [id number] contact. Thank you for allowing me to participate in this patient's care. Further recommendations will depend on patient's clinical course. Please do not hesitate to contact me if you have any questions or concerns. This medical document was created using electronic medical record system with [employer] computerized dictation system. Although this document has been carefully reviewed, there may still be some phonetic and typographical errors. These areas are purely typographical due to the imperfection of the software programs, and do not reflect any compromise in the patient's medical care. Dietary Evaluation Review Recommendations by RD: PPN/TPN Comments: 1) Increase TPN rate to meet at least 75% of estimated daily needs 2) Advance to renal cardiac diet when medically feasible, pending ST approval 3) Follow-up with cardiology, pulmonology, nephrology, neurology, and gastroenterology 4) Continue to monitor I&O, labs, and skin integrity Expected Outcomes/Goals: 1) nutritional support to meet at least 75% of estimated daily needs 2) labs and wound to improve 3) diet to advance 4) gradual wt loss 5) f/u in 2-3 days Plan discussed with: Other (nurse) KATHLEEN COHEN MD Feb 24, 2025 10:17
[2025-02-24] MEDS: PANTOPRAZOLE 40 MG/10 ML VIAL INJ IV SCH (10:49)
[2025-02-24] MEDS: PHYTONADIONE (VIT K)10 MG/ML 1ML VIAL SUBCUT ONE (11:25)
--- NOTE | 2025-02-24 12:46 | DVHPN2 ---
Progress Note - Dictate Date Seen: Feb 24, 2025 Has the PT tested + for MRSA If YES, has PT been informed?: No Medical Necessity Reason Pt with a Central, PICC or Fol: Yes The following are medically ne: Mora Catheter Reason for mora catheter: Nakul. Abd Surgery, Strict I&O, Total Immobilization Subjective Mr. Gillis is a 24 years old gentleman with a history of asthma, gallstone, obesity, the patient was brought to the [facility] on 01/29/2025 with a chief complaint of witnessed cardiopulmonary arrest. I have seen and examined the patient, I have discussed with his nurse, I have discussed with his nurse, mother and brother He is status post tracheostomy, and PEG tube insertion, he is nonresponsive to strong painful stimuli, pupils are dilated and fixed, no corneal reflexes, no doll's eye, no gag reflexes He was breathing over the event in the end of 01/2025 He has active bleeding from the PEG insertion site (according to mother, since 02/22/2025) UDS, 01/29/2025 1616: Fentanyl, benzo Urinalysis, 01/29/2025: WBC: 1, urine leukocyte esterase: Negative ABG, 01/29/2025: Metabolic acidosis, 01/30/25: Metabolic acidosis VWF, 02/11/25: 380 WBC/HB/PLT/MCV, 01/29/2025: 20.1/8.3/234/107.4. 01/30/2025: 28.4/12.1/127/91.2, 02/24/2025: 10.2/10/417/89.6 PT/INR/PTT, 01/29/2025: 19.6/1.98/53.8. 01/30/2025: 13.6/1.32/28.7, 02/15/2025: 11.5/1.09/32.1, 02/24/25: 13/1.25/36.7 Na 01/29/2025: 146, 152, 01/30/2025: 147 BUN/CR, 01/30/2025: 29/4.34, 02/24/2025: 70/8.68 Lactic acid, 01/29/2025: 1749, 01/30/2025: 11.4 Troponin one high sensitivity, 01/29/2025: 2273, 4364, 7474 TBI/AST/ALT/AP, 01/29/2025: 1.3/676/700/136. /: 2.10/4635/2521/137 02/24/2025: 4.4/146/37/827 EEG, 02/01/2025: This is a remarkably abnormal EEG, this EEG seen in severe cerebral dysfunction due to metabolic/hypoxic encephalopathy or medication effects, unless this is caused by reversible etiology, this EEG is suggestive of a poor prognosis for meaningful recovery, please correlate clinically. CT head, 01/29/2025:No evidence of acute intracranial abnormality (I see signs suggestive of diffuse brain edema) CT head 01/30/2025: Diffuse cerebral edema with cerebellar tonsillar herniation. Recommend MRI brain for further evaluation. Critical Result: above finding CT head, 02/10/2025: Findings as above suggesting worsening diffuse cerebral edema in the setting of anoxic brain injury in the given clinical setting. Further clinical correlation is suggested. CT abdomen, pelvis, 01/29/2025: 1. Hepatic hematoma measuring up to approximately 8.6 cm in greatest dimension, as described above, with hemorrhage extending beyond the liver capsule and into the right pericolic gutter as well as into the pelvis. No definite active arterial bleeding is seen on this exam, although limited evaluation due to the timing of contrast, as this was not a CTA exam. 2. Postsurgical changes of cholecystectomy. 3. Dilated fluid-filled small bowel loops, may be due to postoperative ileus. No small bowel obstruction. 4. Small volume pneumoperitoneum, likely due to recent surgery. Small volume of gas are seen in the upper ventral abdomen from the recent surgery. 5. Dependent atelectasis in the lower lobes. Otherwise, no acute disease in the chest. 6. Endotracheal tube and enteric tube in place. 7. Atrophic right kidney incidentally noted. 8. Additional findings as described above Brain imaging flow, 02/03/2025: Findings described above, which would be consistent with brain in the appropriate clinical setting, however clinical correlation is needed. vital signs Vital Sign Date Time Temp Pulse Resp B/P (MAP) Pulse Ox O2 Delivery O2 Flow Rate FiO2 02/24/25 11:45 99 10 108/67 (81) 93 30 02/24/25 11:00 98.1 208.6 02/24/25 10:00 Mechanical Ventilator+ Total Intake and Output 02/23/25 02/23/25 02/24/25 15:00 23:00 07:00 Intake Total 756.751 ml 814 ml 719 ml Output Total 400 ml 670 ml Balance 756.751 ml 414 ml 49 ml medications Current Medications Medications Dose Ordered Sig/Serenity Route Start Time Stop Time Status Last Admin Dose Admin Levalbuterol HCl 0.625 mg Q4HR PRN NEB 01/29/25 20:00 02/22/25 06:31 0.625 MG Ipratropium [place] 0.5 mg Q4HPRN PRN NEB 01/29/25 20:00 02/22/25 06:31 0.5 MG Dextrose 50 ml UD IV 02/01/25 12:30 Sodium Chloride 10 ml QSHIFT@10,22 IV 02/04/25 22:00 02/24/25 10:49 10 ML Neomycin/ Polymyxin/ Bacitracin 1 applic DAILY TOP 02/06/25 10:00 02/24/25 10:49 1 APPLIC Artificial Tears 1 drop Q4HP PRN EACHEYE 02/08/25 07:30 02/21/25 21:29 1 DROP Enteral Nutritional Formula 1,000 ml 20 NG 02/11/25 23:15 02/21/25 09:28 1,000 ML Epoetin Gunn[place]-epbx 8,000 unit MWF@2100 SC 02/17/25 21:00 Hold 02/19/25 21:49 8,000 UNIT Dextrose/Sodium Chloride 1,000 ml @ 75 mls/hr [id number] IV 02/20/25 03:45 02/23/25 18:00 75 MLS/HR Midodrine 10 mg TID@0600,1200,1800 PO 02/21/25 12:00 02/24/25 06:02 10 MG Vasopressin 20 units/Sodium Chloride 100 ml @ 9 mls/hr Q11H7M IV 02/22/25 10:00 02/23/25 08:24 9 MLS/HR Bumetanide 12.5 mg/Miscellaneous 50 ml @ 2 mls/hr Q24H IV 02/22/25 10:00 02/22/25 21:26 2 MLS/HR Piperacillin Sod/ Tazobactam Sod 50 ml @ 12.5 mls/hr Q8H IV 02/23/25 10:00 02/24/25 10:49 12.5 MLS/HR Pantoprazole Sodium 40 mg DAILY IV 02/24/25 10:00 02/24/25 10:49 40 MG Hydrocortisone Sodium Succinate 50 mg Q6HR IV 02/23/25 18:00 02/24/25 06:02 50 MG Metoclopramide HCl 5 mg Q6HR IV 02/24/25 00:00 02/24/25 06:02 5 MG Albumin Human 100 ml @ 100 mls/hr PRN PRN IV 02/24/25 07:45 02/24/25 23:59 02/24/25 09:05 100 MLS/HR Norepinephrine Bitartrate 250 ml @ 3.75 mls/hr Q24H IV 02/24/25 08:45 objective The patient is well-nourished and well-developed with no distress, he has jaundice. MENTAL STATUS: Subjective CRANIAL NERVES: Pupils are equal, round, dilated and fixed. There are no corneal reflexes, no doll's eyes phenomenon. No signs of facial weakness. There are no gagging or coughing reflexes SENSATION: No responses to pain stimuli. MOTOR: Normal tone in the upper and lower extremity. Normal muscle bulk. No fasciculations. No spontaneous movement. REFLEXES: Deep tendon reflexes are symmetrical. No pathological reflexes. CEREBELLAR/COORDINATION: Deferred GAIT/STATION: deferred. laboratory and microbiology Laboratory Tests 02/24/25 03:05 Test 02/24/25 03:05 Range/Units Serum Glucose 110 H 74-106 mg/dL Problem List Cardiopulmonary arrest Status post CPR Coma Hypoxic encephalopathy Metabolic encephalopathy Diffuse brain edema Brain herniation Hepatic hematoma Sepsis Septic shock Hypovolemic shock Liver failure Acute kidney failure Anemia Bleeding from the PEG site/coagulopathy He also had bleeding from the trach) Assessment/Plan Monitoring Supportive treatment Follow-up labs ICU care Respiratory support/vent management Stabilize vitals/pressor drip Oxygen IV antibiotics GI prophylaxis Surgery on case Infectious disease on case Cardiology on case Nephrology on case Pulmonolog on case More recommendation per clinical course This medical document was created using an electronic medical record system with [employer] dictation system. Although this document has been carefully reviewed, there may still be some phonetic and typographical errors. These areas are purely typographical due to imperfections of the software programs, and do not reflect any compromise in the patient's medical care. More recommendation per clinical course Prognosis guarded Dietary Evaluation Review Recommendations by RD: PPN/TPN Comments: 1) Increase TPN rate to meet at least 75% of estimated daily needs 2) Advance to renal cardiac diet when medically feasible, pending ST approval 3) Follow-up with cardiology, pulmonology, nephrology, neurology, and gastroenterology 4) Continue to monitor I&O, labs, and skin integrity Expected Outcomes/Goals: 1) nutritional support to meet at least 75% of estimated daily needs 2) labs and wound to improve 3) diet to advance 4) gradual wt loss 5) f/u in 2-3 days Plan discussed with: Other ALONZO MILLARD MD Feb 24, 2025 12:45
[2025-02-24 14:28] LABS: Base Excess -3.4 mmol/L (-2.0-3.0)
--- NOTE | 2025-02-24 15:46 | DVHPN2 ---
Progress Note Date Seen: Feb 24, 2025 Has the PT tested + for MRSA If YES, has PT been informed?: No Medical Necessity Reason Pt with a Central, PICC or Fol: Yes The following are medically ne: Mora Catheter Reason for mora catheter: Nakul. Abd Surgery, Strict I&O, Total Immobilization Subjective Patient reports: Other Review of Systems: Deferred Objective vital signs Vital Sign Date Time Temp Pulse Resp B/P (MAP) Pulse Ox O2 Delivery O2 Flow Rate FiO2 02/24/25 15:15 96.8 92 10 105/68 (80) 95 206.2 02/24/25 14:43 30 02/24/25 14:00 Mechanical Ventilator+ Total Intake and Output 02/23/25 02/23/25 02/24/25 15:00 23:00 07:00 Intake Total 756.751 ml 814 ml 719 ml Output Total 400 ml 670 ml Balance 756.751 ml 414 ml 49 ml medications Current Medications Medications Dose Ordered Sig/Serenity Route Start Time Stop Time Status Last Admin Dose Admin Levalbuterol HCl 0.625 mg Q4HR PRN NEB 01/29/25 20:00 02/22/25 06:31 0.625 MG Ipratropium [place] 0.5 mg Q4HPRN PRN NEB 01/29/25 20:00 02/22/25 06:31 0.5 MG Dextrose 50 ml UD IV 02/01/25 12:30 Sodium Chloride 10 ml QSHIFT@10,22 IV 02/04/25 22:00 02/24/25 10:49 10 ML Neomycin/ Polymyxin/ Bacitracin 1 applic DAILY TOP 02/06/25 10:00 02/24/25 10:49 1 APPLIC Artificial Tears 1 drop Q4HP PRN EACHEYE 02/08/25 07:30 02/21/25 21:29 1 DROP Enteral Nutritional Formula 1,000 ml 20 NG 02/11/25 23:15 02/21/25 09:28 1,000 ML Epoetin Gunnar-epbx 8,000 unit MWF@2100 SC 02/17/25 21:00 Hold 02/19/25 21:49 8,000 UNIT Dextrose/Sodium Chloride 1,000 ml @ 75 mls/hr [id number] IV 02/20/25 03:45 02/23/25 18:00 75 MLS/HR Midodrine 10 mg TID@0600,1200,1800 PO 02/21/25 12:00 02/24/25 12:49 10 MG Vasopressin 20 units/Sodium Chloride 100 ml @ 9 mls/hr Q11H7M IV 02/22/25 10:00 02/23/25 08:24 9 MLS/HR Bumetanide 12.5 mg/Miscellaneous 50 ml @ 2 mls/hr Q24H IV 02/22/25 10:00 02/22/25 21:26 2 MLS/HR Piperacillin Sod/ Tazobactam Sod 50 ml @ 12.5 mls/hr Q8H IV 02/23/25 10:00 02/24/25 10:49 12.5 MLS/HR Pantoprazole Sodium 40 mg DAILY IV 02/24/25 10:00 02/24/25 10:49 40 MG Hydrocortisone Sodium Succinate 50 mg Q6HR IV 02/23/25 18:00 02/24/25 12:49 50 MG Metoclopramide HCl 5 mg Q6HR IV 02/24/25 00:00 02/24/25 12:48 5 MG Albumin Human 100 ml @ 100 mls/hr PRN PRN IV 02/24/25 07:45 02/24/25 23:59 02/24/25 09:05 100 MLS/HR Norepinephrine Bitartrate 250 ml @ 3.75 mls/hr Q24H IV 02/24/25 08:45 02/24/25 07:30 3.75 MLS/HR Examination: GENERAL:Abnormal, LUNGS:Abnormal, NEURO:Abnormal laboratory and microbiology Laboratory Tests 02/24/25 14:05 02/24/25 03:05 Test 02/24/25 03:05 Range/Units Serum Glucose 110 H 74-106 mg/dL Microbiology Date/Time Source Procedure Growth Status 02/22/25 21:21 Urine - [place] Urine Culture - Preliminary Resulted 02/20/25 09:30 Blood Blood Culture - Preliminary NO GROWTH AFTER 72 HOURS OF INCUBATION. Resulted 02/19/25 11:44 Trachea Gram Stain - Final Complete 02/19/25 11:44 Respiratory Culture - Final Klebsiella pneumoniae Complete 01/29/25 10:43 Sputum Gram Stain - Final Complete 01/29/25 10:43 Sputum Respiratory Culture - Final Complete Problem List/Assessment/Plan Problem List/Assessment/Plan Acute kidney injury likely ischemic ATN in the setting of shock, FeNa > 2%, nonoliguric Acute respiratory failure, intubated on ventilator Status post cardiac arrest Anoxic encephalopathy//brain herniation Hyperkalemia secondary to above Metabolic acidosis anion gap secondary to lactic acidosis secondary to reduced perfusion from hemorrhage Hemodynamic shock from bleeding Acute blood loss anemia/post op Status post laparoscopic cholecystectomy on 01/28/25 [facility] Status post ex lap, 01/29 Positive troponins NSTEMI--likely demand ischemia Shock liver Hypokalemia Recommendations Hemodialysis today repeat K Plan discussed with: Other My Orders My Orders Orders - SILVIA NOONAN MD Procedure Category Date Status Time Communication Order ORDERS 02/24/25 Transmitted 06:53 Albumin 25% (Albutein) PHA 02/24/25 In Process 07:45 Dietary Evaluation Review Recommendations by RD: PPN/TPN Comments: 1) Increase TPN rate to meet at least 75% of estimated daily needs 2) Advance to renal cardiac diet when medically feasible, pending ST approval 3) Follow-up with cardiology, pulmonology, nephrology, neurology, and gastroenterology 4) Continue to monitor I&O, labs, and skin integrity Expected Outcomes/Goals: 1) nutritional support to meet at least 75% of estimated daily needs 2) labs and wound to improve 3) diet to advance 4) gradual wt loss 5) f/u in 2-3 days SILVIA NOONAN MD Feb 24, 2025 15:46
--- NOTE | 2025-02-24 16:59 | DVHPNRES ---
Progress Note Date Seen: Feb 24, 2025 Resident Creating Document: ARNOLD MUHAMMAD RESDIENT Has the PT tested + for MRSA If YES, has PT been informed?: No Medical Necessity Reason Pt with a Central, PICC or Fol: Yes The following are medically ne: Mora Catheter Reason for mora catheter: Nakul. Abd Surgery, Strict I&O, Total Immobilization Subjective Review of Systems Patient seen and evaluated in bedside today. Patient currently on mechanical ventilation, vent setting peep 7, tidal volume 500, FiO2 55, respiratory rate 10. Labs reviewed. Objective vital signs Vital Sign Date Time Temp Pulse Resp B/P (MAP) Pulse Ox O2 Delivery O2 Flow Rate FiO2 02/24/25 15:15 96.8 92 10 105/68 (80) 95 206.2 02/24/25 14:43 30 02/24/25 14:00 Mechanical Ventilator+ Total Intake and Output 02/23/25 02/23/25 02/24/25 15:00 23:00 07:00 Intake Total 756.751 ml 814 ml 719 ml Output Total 400 ml 670 ml Balance 756.751 ml 414 ml 49 ml medications Current Medications Medications Dose Ordered Sig/Serenity Route Start Time Stop Time Status Last Admin Dose Admin Levalbuterol HCl 0.625 mg Q4HR PRN NEB 01/29/25 20:00 02/22/25 06:31 0.625 MG Ipratropium [place] 0.5 mg Q4HPRN PRN NEB 01/29/25 20:00 02/22/25 06:31 0.5 MG Dextrose 50 ml UD IV 02/01/25 12:30 Sodium Chloride 10 ml QSHIFT@10,22 IV 02/04/25 22:00 02/24/25 10:49 10 ML Neomycin/ Polymyxin/ Bacitracin 1 applic DAILY TOP 02/06/25 10:00 02/24/25 10:49 1 APPLIC Artificial Tears 1 drop Q4HP PRN EACHEYE 02/08/25 07:30 02/21/25 21:29 1 DROP Enteral Nutritional Formula 1,000 ml 20 NG 02/11/25 23:15 02/21/25 09:28 1,000 ML Epoetin [place]iona-epbx 8,000 unit MWF@2100 SC 02/17/25 21:00 Hold 02/19/25 21:49 8,000 UNIT Dextrose/Sodium Chloride 1,000 ml @ 75 mls/hr [id number] IV 02/20/25 03:45 02/23/25 18:00 75 MLS/HR Midodrine 10 mg TID@0600,1200,1800 PO 02/21/25 12:00 02/24/25 12:49 10 MG Vasopressin 20 units/Sodium Chloride 100 ml @ 9 mls/hr Q11H7M IV 02/22/25 10:00 02/23/25 08:24 9 MLS/HR Bumetanide 12.5 mg/Miscellaneous 50 ml @ 2 mls/hr Q24H IV 02/22/25 10:00 02/22/25 21:26 2 MLS/HR Piperacillin Sod/ Tazobactam Sod 50 ml @ 12.5 mls/hr Q8H IV 02/23/25 10:00 02/24/25 10:49 12.5 MLS/HR Pantoprazole Sodium 40 mg DAILY IV 02/24/25 10:00 02/24/25 10:49 40 MG Hydrocortisone Sodium Succinate 50 mg Q6HR IV 02/23/25 18:00 02/24/25 12:49 50 MG Metoclopramide HCl 5 mg Q6HR IV 02/24/25 00:00 02/24/25 12:48 5 MG Albumin Human 100 ml @ 100 mls/hr PRN PRN IV 02/24/25 07:45 02/24/25 23:59 02/24/25 09:05 100 MLS/HR Norepinephrine Bitartrate 250 ml @ 3.75 mls/hr Q24H IV 02/24/25 08:45 02/24/25 07:30 3.75 MLS/HR Examination General: RASS -5, afebrile, mucosae are moist Cardiovascular: Normal S1 and S2. No murmurs, gallops or rubs Respiratory: Mechanically assisted ventilation, equal bilateral airway entree. Clear lung sounds on auscultation Abdomen: Soft, nontender, no organomegaly, with surgical wound on abdomin MSK/skin: Mobilization of limbs cannot be evaluated. Skin is dry and warm. Neurological: Orientation cannot be assessed. Pupils are dilated and nonreactive to light, absent brainstem reflexes. laboratory and microbiology Laboratory Tests 02/24/25 14:05 02/24/25 03:05 Test 02/24/25 03:05 Range/Units Serum Glucose 110 H 74-106 mg/dL Microbiology Date/Time Source Procedure Growth Status 02/22/25 21:21 Urine - [place] Urine Culture - Preliminary Resulted 02/20/25 09:30 Blood Blood Culture - Preliminary NO GROWTH AFTER 72 HOURS OF INCUBATION. Resulted 02/19/25 11:44 Trachea Gram Stain - Final Complete 02/19/25 11:44 Respiratory Culture - Final Klebsiella pneumoniae Complete 01/29/25 10:43 Sputum Gram Stain - Final Complete 01/29/25 10:43 Sputum Respiratory Culture - Final Complete Labs and/or images reviewed: Labs reviewed by me, Image(s) reviewed by me Problem List/Assessment/Plan Problem List/Assessment/Plan This is a 24-year-old male with no significant past medical history underwent elective laparoscopic cholecystectomy on 01/28 at [facility] (due to cholelithiasis), on 2nd day postop at home became lethargic and subsequently coded. ROSC was achieved with CPR, abdominal CT scan showed intra-abdominal hematoma, underwent emergent laparotomy and drained about 500-750 thrombosed and dark blood. NEURO: Hypoxic encephalopathy, due to cardiac arrest Anoxic brain injury * RASS Score -5 * Head CT from 01/30 shows, Cerebellar tonsilar herniation. There is sulcal and ventricular effacement. The basal cisterns are effaced. Loss of mario-white matter differentiation is noted. * Head CT on 02/11 shows worsening diffuse cerebral edema in the setting of anoxic brain injury * BRNNM-brain imaging, shows absence blood flow, findings suggest brain in the appropriate clinical setting * Plan: transfering to LTAC CARDIOVASCULAR: NSTEMI possible type 2 Status post cardiac arrest Distributive shock (vasoplegia)/neurogenic shock/septic shock vasopressin * Cardiology on the board, recommended medical management * Echo from 01/30 shows,Technically limited study secondary to poor acoustic windows, normal LV size and function, 55-60% * Plan: Levophed, midodrine 10 mg t.i.d. hydrocortisone 50 mg q.6 hours PULMONARY: Acute hypoxic respiratory failure, likely due to anoxic brain injury Cxr showed bilateral mild pulmonary vascular congestion GASTROINTESTINAL: Acute transaminitis secondary to hypovolemic shock Coagulopathy Hypoalbuminemia Status post laparoscopic cholecystectomy Status post exploratory laparotomy for hemoperitoneum Transaminitis, likely due to TPN GENITOURINARY: HARLEEN secondary to hypovolemic shock * Nephrology on the board, performed dialysis on 02/03 * IV Bumex 2 mg b.i.d. METABOLIC: Severe anion gap metabolic acidosis due to lactic acidosis Hypernatremia Grade 2 obesity, BMI 35.7 kg per m2 Hypoglycemia HEME: Severe anemia, due to bleeding * Received 3 units of PRBC, 2 units of FFP and 1 unit of cryoprecipitate * Monitor H&H and epoetin fiona INFECTIOUS DISEASE: Leucocytosis Lactic acidosis * Urine culture, blood culture and respiratory culture shows no growth * On Zosyn DIET: TPN DVT prophylax: Hold GI prophylaxis: Protonix Code status: Full code LINES/DRAINS/ACCESS: ETT: Intubated on 01/29 IV access: Lt IJ placed on 01/29/25 left subclavian, tunneled dialysis catheter placed on 02/14 Drips: On Levophed Mora catheter: Placed on 01/29 DISPOSITION: ICU status Patient's status discussed with the patient's mother at the bedside. Critical care time spent more than 57 minutes, including patient care, chart review, and updating the family. Excluding any procedures. Case discussed with Dr. Troy Plan discussed with: Other My Orders My Orders Orders - ARNOLD MUHAMMAD Procedure Category Date Status Time Norepinephrine 8 PHA 02/24/25 In Process Mg/250ml Kit 08:45 Dietary Evaluation Review Recommendations by RD: PPN/TPN Comments: 1) Increase TPN rate to meet at least 75% of estimated daily needs 2) Advance to renal cardiac diet when medically feasible, pending ST approval 3) Follow-up with cardiology, pulmonology, nephrology, neurology, and gastroenterology 4) Continue to monitor I&O, labs, and skin integrity Expected Outcomes/Goals: 1) nutritional support to meet at least 75% of estimated daily needs 2) labs and wound to improve 3) diet to advance 4) gradual wt loss 5) f/u in 2-3 days Date of Service: Feb 24, 2025 Billing Provider: JEFFREY TROY MD Common Visit Codes: 21888-[id number] CARE 30-74 MIN ARNOLD MUHAMMAD Feb 24, 2025 16:59 JEFFREY TROY MD Feb 25, 2025 14:59
--- NOTE | 2025-02-24 17:40 | DVHPN2 ---
Progress Note Date Seen: Feb 24, 2025 Has the PT tested + for MRSA If YES, has PT been informed?: No Medical Necessity Reason Pt with a Central, PICC or Fol: Yes The following are medically ne: Mora Catheter Reason for mora catheter: Nakul. Abd Surgery, Strict I&O, Total Immobilization Subjective Review of Systems Pt's mother and brother at the bedside. Updated. Off Vasopressin. No further bleeding from Tracheostomy. Bleeding from PEG. BM this morning. Per RN, RV 300 mL bilious Objective vital signs Vital Sign Date Time Temp Pulse Resp B/P (MAP) Pulse Ox O2 Delivery O2 Flow Rate FiO2 02/24/25 17:15 96.3 89 10 115/79 (91) 93 205.3 02/24/25 16:00 30 02/24/25 16:00 Mechanical Ventilator+ Total Intake and Output 02/23/25 02/23/25 02/24/25 15:00 23:00 07:00 Intake Total 756.751 ml 814 ml 719 ml Output Total 400 ml 670 ml Balance 756.751 ml 414 ml 49 ml medications Current Medications Medications Dose Ordered Sig/Serenity Route Start Time Stop Time Status Last Admin Dose Admin Levalbuterol HCl 0.625 mg Q4HR PRN NEB 01/29/25 20:00 02/22/25 06:31 0.625 MG Ipratropium [place] 0.5 mg Q4HPRN PRN NEB 01/29/25 20:00 02/22/25 06:31 0.5 MG Dextrose 50 ml UD IV 02/01/25 12:30 Sodium Chloride 10 ml QSHIFT@10,22 IV 02/04/25 22:00 02/24/25 10:49 10 ML Neomycin/ Polymyxin/ Bacitracin 1 applic DAILY TOP 02/06/25 10:00 02/24/25 10:49 1 APPLIC Artificial Tears 1 drop Q4HP PRN EACHEYE 02/08/25 07:30 02/21/25 21:29 1 DROP Enteral Nutritional Formula 1,000 ml 20 NG 02/11/25 23:15 02/21/25 09:28 1,000 ML Epoetin Gunnar-epbx 8,000 unit MWF@2100 SC 02/17/25 21:00 Hold 02/19/25 21:49 8,000 UNIT Dextrose/Sodium Chloride 1,000 ml @ 75 mls/hr [id number] IV 02/20/25 03:45 02/24/25 10:00 75 MLS/HR Midodrine 10 mg TID@0600,1200,1800 PO 02/21/25 12:00 02/24/25 12:49 10 MG Vasopressin 20 units/Sodium Chloride 100 ml @ 9 mls/hr Q11H7M IV 02/22/25 10:00 02/23/25 08:24 9 MLS/HR Bumetanide 12.5 mg/Miscellaneous 50 ml @ 2 mls/hr Q24H IV 02/22/25 10:00 02/22/25 21:26 2 MLS/HR Piperacillin Sod/ Tazobactam Sod 50 ml @ 12.5 mls/hr Q8H IV 02/23/25 10:00 02/24/25 10:49 12.5 MLS/HR Pantoprazole Sodium 40 mg DAILY IV 02/24/25 10:00 02/24/25 10:49 40 MG Hydrocortisone Sodium Succinate 50 mg Q6HR IV 02/23/25 18:00 02/24/25 12:49 50 MG Metoclopramide HCl 5 mg Q6HR IV 02/24/25 00:00 02/24/25 12:48 5 MG Albumin Human 100 ml @ 100 mls/hr PRN PRN IV 02/24/25 07:45 02/24/25 23:59 02/24/25 09:05 100 MLS/HR Norepinephrine Bitartrate 250 ml @ 3.75 mls/hr Q24H IV 02/24/25 08:45 02/24/25 07:30 3.75 MLS/HR Erythromycin 250 mg Q6HR PO 02/24/25 18:00 UNV Examination Neuro. Unchanged. Dilated fixed pupils. No reflexes. CV. HR 80s. BP 120/81. Off pressors. Previous LSCV HD catheter site C/D/I. Right PC and PICC catheter exit sites remain C/D/I. Pulmonary: Tracheostomy in place. Sutures removed, Slit gauze replaced. No active bleeding at this time. C/D/I. Mechanical ventilator support 520/10/30%/+7. RR 10/min on vent display. GI: Soft, obese, nondistended and non tender. Incisions and dressing C/D/I. PEG in place. Oozing again. TF held. High RV . Mora catheter in place. Clear yellow urine in collection bag Extremities. No edema Mild orbital edema Skin: Appears more jaundice. laboratory and microbiology Laboratory Tests 02/24/25 14:05 02/24/25 03:05 Test 02/24/25 03:05 Range/Units Serum Glucose 110 H 74-106 mg/dL Microbiology Date/Time Source Procedure Growth Status 02/22/25 21:21 Urine - Mora Port Urine Culture - Preliminary Resulted 02/20/25 09:30 Blood Blood Culture - Preliminary NO GROWTH AFTER 72 HOURS OF INCUBATION. 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 CT revealed cerebral edema and tonsillar herniation.EEG no electric activity. Cerebral perfusion study confirmed no perfusion radiographically consistent with brain which was concordant with initial clinical diagnosis and EEG. However, pt continues demonstrating brainstem function as he is breathing over vent set rate. Fluctuating HR, RR, BP and temperature. Could be secondary to autonomic dysfunction. F/U (3rd) CT brain worsening cerebral edema and tonsillar herniation. CV:Hemodynamically stable. Normal HR and BP. Possible autonomic dysfunction. Off pressors. Continue Midodrine 10 mg TID via PEG. Cardiology assistance appreciated. Mechanical DVT prophylaxis. Unlikely PE (can't rule it out) but patient oxygenating well, no tachycardia. Pulmonary hypertension possibly unknowingly preexistent. Duplex negative for DVT Pulmonary: VDRF. S/p tracheostomy. CXR reviewed. Agree with PVC. ABG with mild hypoxemia. Vt to 550, FIO2 40%, repeat ABG AM. Sputum Cx Klebsiella pneumoniae sensitive to Zosyn. O2 Sat 95%. ABG normal. Continue ventilator support. Appreciate pulmonary medicine assistance. Pulmonary medicine following. GI: Continue BID GI prophylaxis. Hepatic shock. Elevated LFTs. Increasing TB, Mostly direct. Possible TPN related cholestasis. Doubt retained stones as rest of LFTs not increasing. Can't obtain MRCP "secondary to ventilator". Hold TF. Erythromycin as prokinetic. Clinimix for now. PEG site oozing. Will get laceration tray and suture. D/W mother to place u stitch under local anesthesia. SHe understood and agreed. : Hyperkalemia resolved after HD. ARF/ATN. Strict I&O. Bumex gtt. Mora to gravity. Appreciate nephrology assistance. Replace/correct electrolytes. HD per nephrology. Consider volume neutral HD. If possible. Heme/ID: WBC normal. UCx NGTD. Hgb stable. VW Ag high. Improving INR, PT and PPT mildly elevated. Hematology believes secondary to inflammatory response/reaction. Minimizing blood draw frequency to avoid worsening anemia. Repeat labs AM. Appreciate hematology assistance. Continue Zosyn for Klebsiella pneumoniae PNA. Endocrine: Tight glycemic control. Skin: Skin care and pressure ulcer precautions. Plan discussed with: Other (Mother, brother and RN) My Orders My Orders Orders - JITENDRA ZAMORA MD Procedure Category Date Status Time Metoclopramide PHA 02/24/25 In Process Injection (Reglan 00:00 Abg W/ Co-Ox RT 02/24/25 Logged 05:25 Chest Portable XY 02/24/25 Resulted 06:51 Abg W/ Co-Ox RT 02/24/25 Logged 13:58 Ventilator Orders RT 02/24/25 Transmitted 13:59 Erythromycin Tablet PHA 02/24/25 Logged 18:00 Communication Order ORDERS 02/24/25 Transmitted 17:21 Dietary Evaluation Review Recommendations by RD: PPN/TPN Comments: 1) Increase TPN rate to meet at least 75% of estimated daily needs 2) Advance to renal cardiac diet when medically feasible, pending ST approval 3) Follow-up with cardiology, pulmonology, nephrology, neurology, and gastroenterology 4) Continue to monitor I&O, labs, and skin integrity Expected Outcomes/Goals: 1) nutritional support to meet at least 75% of estimated daily needs 2) labs and wound to improve 3) diet to advance 4) gradual wt loss 5) f/u in 2-3 days JITENDRA ZAMORA MD Feb 24, 2025 17:40
--- NOTE | 2025-02-24 19:44 | DVH ---
ABDOMEN, (KUB) ONE VIEW REASON FOR EXAM: Ileus COMPARISON: None TECHNIQUE: A single view of the abdomen is obtained. FINDINGS: There is a percutaneous gastrostomy tube. There is trace contrast outlining gastric rugae in the gastric body and fundus. There is partial visualization of a dialysis catheter projecting over the right atrium. Surgical clips project over the right upper quadrant. The bowel gas pattern is non obstructive. IMPRESSION: No evidence of ileus or small-bowel obstruction.
[2025-02-24] MEDS ORDERED: CLINIMIX PER PHARMACY 0 ML IV SCH (21:00)
[2025-02-24] MEDS: AMINO ACID INFUSION IN D10W 1,000 ML IV SCH (21:45)
[2025-02-24] MEDS: EPOETIN ALFA-EPBX 10,000 UNIT/1ML VIAL SC ONE (22:04)
[2025-02-25] VITALS (101 sets, daily range): BP systolic 115–149; BP diastolic 64–110; PULSE 94–109; RESP 10–19; TEMP 94.8–99.1; O2SAT 91–98
[2025-02-25 03:37] LABS: Hemoglobin 7.9 g/dL (13.5-17.5)
[2025-02-25 03:40] LABS: Hematocrit 23.7 % (41.0-53.0); Mean Corpuscular Hemoglobin 29.0 pg (28.0-32.0); Mean Corpuscular Volume 86.9 fL (80.0-100.0)
[2025-02-25 03:58] LABS: Alanine Aminotransferase 28 U/L (7-40); Albumin 4.0 g/dL (3.2-4.8); Anion Gap 18 (5-15); BUN/Creatinine Ratio 8.3 (10.0-20.0); Carbon Dioxide 24 mmol/L (20-31); Chloride 104 mmol/L (98-107); Magnesium 2.1 mg/dL (1.6-2.6); Potassium 4.9 mmol/L (3.5-5.1); Total Protein 7.6 g/dL (5.7-8.2)
[2025-02-25 04:08] LABS: Alkaline Phosphatase 628 U/L (46-116); Bilirubin, Total 2.6 mg/dL (0.2-1.0); Blood Urea Nitrogen 62 mg/dL (9-23); Calcium 8.6 mg/dL (8.7-10.4); Glucose 118 mg/dL (74-106); Sodium 146 mmol/L (136-145)
[2025-02-25 05:41] LABS: Total Cells Counted 100.0 (100)
[2025-02-25] MEDS: LIDOCAINE 1% HCL (LOCAL ANESTH.) INJ 20ML MDV ID ONE (06:35)
--- NOTE | 2025-02-25 06:50 | DVHPN2 ---
Progress Note Date Seen: Feb 25, 2025 Has the PT tested + for MRSA If YES, has PT been informed?: No Medical Necessity Reason Pt with a Central, PICC or Fol: Yes The following are medically ne: Mora Catheter Reason for mora catheter: Nakul. Abd Surgery, Strict I&O, Total Immobilization Subjective Review of Systems Per RN, 10 mL RV from PEG. Continues oozing from PEG site. Was not informed about lab results. Continue hemodynamically stable. Clinimix initiated. Objective vital signs Vital Sign Date Time Temp Pulse Resp B/P (MAP) Pulse Ox O2 Delivery O2 Flow Rate FiO2 02/25/25 06:15 97 10 135/96 (109) 98 35 02/25/25 05:53 Mechanical Ventilator+ 02/24/25 18:45 96.3 96.3 Total Intake and Output 02/24/25 02/24/25 02/25/25 15:00 23:00 07:00 Intake Total 703.5 ml 986 ml 100 ml Output Total 250 ml 650 ml Balance 703.5 ml 736 ml -550 ml medications Current Medications Medications Dose Ordered Sig/Serenity Route Start Time Stop Time Status Last Admin Dose Admin Levalbuterol HCl 0.625 mg Q4HR PRN NEB 01/29/25 20:00 02/22/25 06:31 0.625 MG Ipratropium [place] 0.5 mg Q4HPRN PRN NEB 01/29/25 20:00 02/22/25 06:31 0.5 MG Dextrose 50 ml UD IV 02/01/25 12:30 Sodium Chloride 10 ml QSHIFT@10,22 IV 02/04/25 22:00 02/24/25 22:04 10 ML Neomycin/ Polymyxin/ Bacitracin 1 applic DAILY TOP 02/06/25 10:00 02/24/25 10:49 1 APPLIC Artificial Tears 1 drop Q4HP PRN EACHEYE 02/08/25 07:30 02/21/25 21:29 1 DROP Enteral Nutritional Formula 1,000 ml 20 NG 02/11/25 23:15 02/21/25 09:28 1,000 ML Epoetin Gunnar-epbx 8,000 unit MWF@2100 SC 02/17/25 21:00 Hold 02/19/25 21:49 8,000 UNIT Dextrose/Sodium Chloride 1,000 ml @ 75 mls/hr [id number] IV 02/20/25 03:45 02/24/25 21:40 75 MLS/HR Midodrine 10 mg TID@0600,1200,1800 PO 02/21/25 12:00 02/25/25 05:40 10 MG Vasopressin 20 units/Sodium Chloride 100 ml @ 9 mls/hr Q11H7M IV 02/22/25 10:00 02/23/25 08:24 9 MLS/HR Bumetanide 12.5 mg/Miscellaneous 50 ml @ 2 mls/hr Q24H IV 02/22/25 10:00 02/22/25 21:26 2 MLS/HR Piperacillin Sod/ Tazobactam Sod 50 ml @ 12.5 mls/hr Q8H IV 02/23/25 10:00 02/25/25 00:49 12.5 MLS/HR Pantoprazole Sodium 40 mg DAILY IV 02/24/25 10:00 02/24/25 10:49 40 MG Hydrocortisone Sodium Succinate 50 mg Q6HR IV 02/23/25 18:00 02/25/25 05:40 50 MG Metoclopramide HCl 5 mg Q6HR IV 02/24/25 00:00 02/25/25 05:40 5 MG Norepinephrine Bitartrate 250 ml @ 3.75 mls/hr Q24H IV 02/24/25 08:45 02/24/25 07:30 3.75 MLS/HR Erythromycin 250 mg Q6HR PO 02/24/25 18:00 02/25/25 05:40 250 MG Amino Acids 0 ml @ 0 mls/hr PER PHARMACY IV 02/24/25 21:00 UNV Amino Acids/ Electrolytes/ Dextrose 1,000 ml @ 42 mls/hr DAILY@2200 IV 02/24/25 22:00 02/24/25 21:45 42 MLS/HR Examination Neuro. Unchanged. Dilated fixed pupils. No reflexes. CV. HR 90s. BP 149/109. Previous LSCV HD catheter site C/D/I. Right PC and PICC catheter exit sites remain C/D/I. Pulmonary: Tracheostomy in place. No active bleeding at this time. C/D/I. Mechanical ventilator support 520/10/35%/+7. RR 10/min on vent display. GI: Soft, obese, nondistended and non tender. Incisions and dressing C/D/I. PEG in place. U stitch placed. Bumper loose, RN place snow again. No further bleeding. TF held. RV 10 mL . Mora catheter in place. Clear yellow urine in collection bag Extremities. No edema Mild orbital edema Skin: Stable jaundice. laboratory and microbiology Laboratory Tests 02/25/25 02:56 Test 02/25/25 02:56 Range/Units Serum Glucose 118 H 74-106 mg/dL Microbiology Date/Time Source Procedure Growth Status 02/22/25 21:21 Urine - Mora [place] Urine Culture - Preliminary Resulted 02/20/25 09:30 Blood Blood Culture - Preliminary NO GROWTH AFTER 72 HOURS OF INCUBATION. Resulted 02/19/25 11:44 Trachea Gram Stain - Final Complete 02/19/25 11:44 Respiratory Culture - Final Klebsiella pneumoniae Complete 01/29/25 10:43 Sputum Gram Stain - Final Complete 01/29/25 10:43 Sputum Respiratory Culture - Final Complete Labs and/or images reviewed: Labs reviewed by me, Image(s) reviewed by me Problem List/Assessment/Plan Problems(with codes): (1) ARF (acute renal failure) (2) Ventilator dependent (3) Tonsillar hernia into foramen magnum (4) Cerebral edema (5) Cerebral edema due to anoxia (6) Cardiopulmonary arrest with successful resuscitation (7) Coma after cardiorespiratory arrest (8) 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 CT revealed cerebral edema and tonsillar herniation.EEG no electric activity. Cerebral perfusion study confirmed no perfusion radiographically consistent with brain which was concordant with initial clinical diagnosis and EEG. However, pt continues demonstrating brainstem function as he is breathing over vent set rate. Fluctuating HR, RR, BP and temperature. Could be secondary to autonomic dysfunction. F/U (3rd) CT brain worsening cerebral edema and tonsillar herniation. CV:Hemodynamically stable. Normal HR and BP. Possible autonomic dysfunction. Continues off pressors. Continue Midodrine 10 mg via PEG. May have to adjust dose. Will defer to cardiology. Cardiology assistance appreciated. Mechanical DVT prophylaxis. Unlikely PE (can't rule it out) but patient oxygenating well, no tachycardia. Pulmonary hypertension possibly unknowingly preexistent. Duplex negative for DVT Pulmonary: VDRF. S/p tracheostomy. Pending ABG. Vt to 550, FIO2 back to 40%, Pending ABG. Sputum Cx Klebsiella pneumoniae sensitive to Zosyn. O2 Sat 95%. Continue ventilator support. Appreciate pulmonary medicine assistance. Pulmonary medicine following. GI: Continue BID GI prophylaxis. Hepatic shock. Improving LFTs.decreasing TB. Possible TPN related cholestasis. initiate Vital AF 10 mL/hr TF. Measure RV, hold for RV 150 mL or higher. Erythromycin as prokinetic.Continue Clinimix for now. PEG site no longer oozing after U stitch. : Hyperkalemia resolved after HD. ARF/ATN. Strict I&O. Bumex gtt. Mora to gravity. Appreciate nephrology assistance. Replace/correct electrolytes. HD per nephrology. Consider volume neutral HD. If possible. Heme/ID: WBC 12, likely inflammatory. Hgb 7.9. Likely from oozing. UCx NGTD. VW Ag high. Improving INR, PT and PPT mildly elevated. Hematology believes secondary to inflammatory response/reaction. Minimizing blood draw frequency to avoid worsening anemia. Repeat labs AM. Appreciate hematology assistance. Continue Zosyn for Klebsiella pneumoniae PNA. Endocrine: Tight glycemic control. Skin: Skin care and pressure ulcer precautions. Plan discussed with: Other (RN) My Orders My Orders Orders - JITENDRA ZAMORA MD Procedure Category Date Status Time Chest Portable XY 02/24/25 Resulted 06:51 Abg W/ Co-Ox RT 02/24/25 Logged 13:58 Ventilator Orders RT 02/24/25 Transmitted 13:59 Erythromycin Tablet PHA 02/24/25 In Process 18:00 Communication Order ORDERS 02/24/25 Transmitted 17:21 Communication Order ORDERS 02/24/25 Transmitted 17:40 Kub Abdomen Single XY 02/24/25 Resulted View 17:40 Communication Order ORDERS 02/24/25 Transmitted 17:45 Clinimix Per Pharmacy PHA 02/24/25 Pending 21:00 Amino Acid Infusion PHA 02/24/25 In Process In D10w (Clinimix 4. 22:00 Dietary Evaluation Review Recommendations by RD: PPN/TPN Comments: 1) Increase TPN rate to meet at least 75% of estimated daily needs 2) Advance to renal cardiac diet when medically feasible, pending ST approval 3) Follow-up with cardiology, pulmonology, nephrology, neurology, and gastroenterology 4) Continue to monitor I&O, labs, and skin integrity Expected Outcomes/Goals: 1) nutritional support to meet at least 75% of estimated daily needs 2) labs and wound to improve 3) diet to advance 4) gradual wt loss 5) f/u in 2-3 days JITENDRA ZAMORA MD Feb 25, 2025 06:50
[2025-02-25 07:16] LABS: Hematocrit 24.9 % (41.0-53.0); Hemoglobin 8.0 g/dL (13.5-17.5)
[2025-02-25 07:39] LABS: INR 1.15 (0.9-1.15); Partial Thromboplastin Time 34.5 SEC (24.5-34.5); Prothrombin Time 12.0 sec (9.3-11.8)
[2025-02-25 07:40] LABS: Fibrinogen 422.0 mg/dL (177-375)
--- NOTE | 2025-02-25 08:57 | DVHPN2 ---
Progress Note - Dictate Date Seen: Feb 25, 2025 Has the PT tested + for MRSA If YES, has PT been informed?: No Medical Necessity Reason Pt with a Central, PICC or Fol: Yes The following are medically ne: Mora Catheter Reason for mora catheter: Nakul. Abd Surgery, Strict I&O, Total Immobilization vital signs Vital Sign Date Time Temp Pulse Resp B/P (MAP) Pulse Ox O2 Delivery O2 Flow Rate FiO2 02/25/25 06:15 97 10 135/96 (109) 98 35 02/25/25 05:53 Mechanical Ventilator+ 02/25/25 04:45 97.7 207.9 Total Intake and Output 02/24/25 02/24/25 02/25/25 15:00 23:00 07:00 Intake Total 703.5 ml 1186 ml 1025 ml Output Total 250 ml 650 ml Balance 703.5 ml 936 ml 375 ml medications Current Medications Medications Dose Ordered Sig/Serenity Route Start Time Stop Time Status Last Admin Dose Admin Levalbuterol HCl 0.625 mg Q4HR PRN NEB 01/29/25 20:00 02/22/25 06:31 0.625 MG Ipratropium Stanton 0.5 mg Q4HPRN PRN NEB 01/29/25 20:00 02/22/25 06:31 0.5 MG Dextrose 50 ml UD IV 02/01/25 12:30 Sodium Chloride 10 ml QSHIFT@10,22 IV 02/04/25 22:00 02/24/25 22:04 10 ML Neomycin/ Polymyxin/ Bacitracin 1 applic DAILY TOP 02/06/25 10:00 02/24/25 10:49 1 APPLIC Artificial Tears 1 drop Q4HP PRN EACHEYE 02/08/25 07:30 02/21/25 21:29 1 DROP Enteral Nutritional Formula 1,000 ml 20 NG 02/11/25 23:15 02/21/25 09:28 1,000 ML Epoetin Gunnar-epbx 8,000 unit MWF@2100 SC 02/17/25 21:00 Hold 02/19/25 21:49 8,000 UNIT Dextrose/Sodium Chloride 1,000 ml @ 75 mls/hr [id number] IV 02/20/25 03:45 02/24/25 21:40 75 MLS/HR Midodrine 10 mg TID@0600,1200,1800 PO 02/21/25 12:00 02/25/25 05:40 10 MG Vasopressin 20 units/Sodium Chloride 100 ml @ 9 mls/hr Q11H7M IV 02/22/25 10:00 02/23/25 08:24 9 MLS/HR Bumetanide 12.5 mg/Miscellaneous 50 ml @ 2 mls/hr Q24H IV 02/22/25 10:00 02/22/25 21:26 2 MLS/HR Piperacillin Sod/ Tazobactam Sod 50 ml @ 12.5 mls/hr Q8H IV 02/23/25 10:00 02/25/25 00:49 12.5 MLS/HR Pantoprazole Sodium 40 mg DAILY IV 02/24/25 10:00 02/24/25 10:49 40 MG Hydrocortisone Sodium Succinate 50 mg Q6HR IV 02/23/25 18:00 02/25/25 05:40 50 MG Metoclopramide HCl 5 mg Q6HR IV 02/24/25 00:00 02/25/25 05:40 5 MG Norepinephrine Bitartrate 250 ml @ 3.75 mls/hr Q24H IV 02/24/25 08:45 02/24/25 07:30 3.75 MLS/HR Erythromycin 250 mg Q6HR PO 02/24/25 18:00 02/25/25 05:40 250 MG Amino Acids 0 ml @ 0 mls/hr PER PHARMACY IV 02/24/25 21:00 UNV Amino Acids/ Electrolytes/ Dextrose 1,000 ml @ 42 mls/hr DAILY@2200 IV 02/24/25 22:00 02/24/25 21:45 42 MLS/HR Enteral Nutritional Formula 1,000 ml 1000 GT 02/25/25 10:00 laboratory and microbiology Laboratory Tests 02/25/25 06:42 02/25/25 02:56 Test 02/25/25 02:56 Range/Units Serum Glucose 118 H 74-106 mg/dL Assessment/Plan Still in ICU. On vent support. No gross higher brain reflexes. Pupils are dilated and fixed. Anoxic/Hypoxic Encephalopathy No reported arrhythmia overnight s/p Tracheostomy s/p PEG placement s/p PRBC transfusion (repeated) On Midodrine Off IV pressure support residential Prognosis: Poor Echocardiogram revealed no WMA and also revealed good EF. It also revealed increased Pulmonary Artery Pressure in favor of component of Pulmonary Hypertension. s/p Hemodialysis Received blood and platelet transfusion repeatedly Patient is a 24-year-old gentleman who was originally brought to the hospital for post arrest. Patient is seen in postop area. Patient is intubated and on multiple pressor supports. Patient is not source of history. Information was obtained by reviewing the chart, talking to patient's family/mother and communicating with staff and reviewing outside records ([facility]). Patient did have elective outpatient laparoscopic cholecystectomy in [facility] on January 28 2025. As per mother, after going home, patient was feeling very hungry and was eating and drinking a lot. He started feeling abdominal pain with nausea at night and in the morning was short of breath. As per mother: patient has stopped breathing in the morning and family called 911. As per mother, as per guidance of 911, family started CPR until EMS arrived. Patient was intubated and was brought to the hospital by EMS. Since arrival to [facility], patient was seen by surgeon who took the patient to operating room and performed laparotomy (there was hepatic hematoma). Postoperatively, the patient has remained hypotensive. There is signs for multiorgan involvement. Patient was not alert and did not complain of any chest pains. Labs revealed increased troponin. Cardiology is involved for cardiac aspects of care and abnormal troponin. First available EKG reveals sinus tachycardia with no specific ST-T changes. Telemetry had revealed sinus tachycardia throughout the stay. Patient is found to have significant anemia and is receiving blood transfusion at the time of evaluation. It is of note that at the time of evaluation patient does not have any reflexes. Intubated. Mucosa pale. Dilated and fixed pupils, Scattered rhonchi in the lungs. Cardiac: Tachycardic. No murmur. Abdomen is covered by dressing. Extremities do not reveal any edema. Dorsalis pedis is 1+ bilateral. Patient does not respond to any stimuli. Reported past medical history includes asthma and obesity. Reportedly, on January 23, 2025: Patient presented to [facility] for abdominal pain/nausea/vomiting. At that point the problems were ongoing for few weeks. In [facility], CT of the abdomen and MRCP were performed. Patient was seen by GI/surgery. Patient was found to have gallstones. Patient was discharged and later on January 28, 2025 presented back to [facility] for elective laparoscopy cholecystectomy. Patient was discharged home from [facility] after laparoscopic cholecystectomy. As per mother, patient does not have baseline history of any cardiac history. As per mother, patient was using marijuana. Mother denies any previous substance abuse besides marijuana. No specific family history is reported On January 23, 2025, labs in [facility] revealed creatinine of 0.84, hemoglobin of 15.2 and troponin (high sensitive) of <3. At that point EKG was normal WBC: 20.1 - 19.0 - 22.7 - 20.6 - 28.4 - 20.3 - 21.0 - 25.2 - 29.8 - 29.5 - 29.0 - 26.2 - 21.7 - 19.7 - 17.7 - 15.3 - 12.2 - 10.5 - 11.2 - 13.0 - 10.7 - 9.0 - 9.0 - 10.3 - 10.3 - 10.1 - 11.0 - 12.4 - 13.0 - 12.0 - 15.1 - 13.8 - 14.9 - 13.1 - 10.2 - 12.4 Hemoglobin: 8.3 - 6.5 - 12.1 - 11.1 - 12.1 - 9.3 - 9.2 - 9.1 - 8.4 - 9.0 - 9.5 - 8.8 - 8.4 - 8.0 - 9.7 - 9.6 - 9.8 - 9.6 - 9.7 - 9.8 - 9.1 - 8.5 - 8.8 - 8.9 - 8.7 - 8.8 - 9.7 - 9.1 - 7.9 - 8.2 - 10.1 - 9.5 - 9.7 - 9.6 - 10.0 - 7.9 - 8.0 Fibrinogen: 108 - 316 - 537 - 689 - >860 - 422 Creatinine: 4.02 - 3.78 - 3.90 - 3.95 - 4.34 - 5.44 - 6.05 - 6.73 - 7.31 - 7.77 - 6.64 - 7.30 - 4.91 - 5.32 - 7.40 - 5.98 - 7.66 - 6.28 - 7.71 - 8.67 - 6.87 - 5.62 - 7.59 - 8.95 - 7.51 - 9.04 - 6.23 - 7.09 - 5.33 - 6.90 - 4.95 - 6.31 - 7.51 - 6.00 - 7.40 - 8.68 - 7.46 Potassium: 5.6 - 4.6 - 4.8 - 3.9 - 2.9 - 2.9 - 3.6 - 3.8 - 4.9 - 5.4 - 6.0 - 5.1 - 5.3 - 6.1 - 6.0 - 4.6 - 4.4 - 4.3 - 3.5 - 3.4 - 3.7 - 4.5 - 5.7 - 5.2 - 4.0 - 3.8 - 4.1 - 4.5 - 4.9 - 4.7 - 4.6 - 4.4 - 4.6 - 3.7 - 3.5 - 4.5 - 3.7 - 5.1 - 6.0 - 4.4 - 4.9 AST/ALT: 676/700 - 2327/6 - 4636/2521 - -/1996 - 2500/1990 - 1780/1821 - 808/995 - 586/735 - 456/444 - 312/290 - 237/163 - 215/125 - 190/87 - 200/74 - 202/66 - 189/53 - 186/44 - 186/45 - 192/38 - 193/34 - 214/34 - 195/30 - 261/42 - 241/47 - 246/63 - 265/69 - 208/52 - 177/46 - 168/42 - 146/37 - 98/28 Lactic acid: 17.9 - 17.2 - 11.4 Troponin (high sensitive): 0323 - 5987 - 1108 - 2194 - 5640 TSH: 11.05 Urine Toxicology: positive for Fentanyl and Benzodiazepine Chest x-ray revealed: Lines and Tubes: Endotracheal tube projects 2.2 cm above the meghan. Right internal jugular central venous catheter tip projects over superior vena cava. Lungs: No focal consolidation. Low lung volumes. Pleura: No effusion. No pneumothorax. Cardiomediastinal contours: Unremarkable Bones: No acute osseous abnormality. IMPRESSION: Lines and tubes as above. Low lung volumes. Repeat chest x-ray revealed: IMPRESSION: Lines and tubes in satisfactory position. Mild increased pulmonary vascular congestion Repeat chest xry revealed: IMPRESSION: Lines and tubes in satisfactory position. Mild increased pulmonary vascular congestion Repeat chest xry revealed: IMPRESSION: 1. Low lung volumes with concomitant crowding of the pulmonary vasculature. 2. No evidence of focal consolidation. 3. Lines and tubes unchanged. Repeat chest xry revealed: IMPRESSION: 1. Slight interval retraction of the endotracheal tube such that the tip now projects approximately 4.7 cm above the level of the meghan. Remaining lines and tubes unchanged. 2. Otherwise no significant change compared to prior exam. Repeat chest xry revealed: IMPRESSION: 1. Slight interval advancement of endotracheal tube such that the tip now projects approximately 1.7 cm above the level of the meghan. Remaining lines and tubes unchanged. 2. Otherwise no significant change compared to prior exam. Repeat chest xry revealed: IMPRESSION: 1. Slight interval retraction of the endotracheal tube such that the tip now projects approximately 3.3 cm above the level of the meghan. Remaining lines and tubes unchanged. 2. No evidence of acute cardiopulmonary process. Repeat chest xry revealed: IMPRESSION: 1. Endotracheal tube in appropriate position. Remaining lines and tubes unchanged. 2. No evidence of acute cardiopulmonary process. Repeat chest xry revealed: IMPRESSION: 1. Small right pleural effusion. 2. Lines and tubes unchanged. Repeat chest xry revealed: IMPRESSION: 1. Small right pleural effusion. 2. Lines and tubes unchanged. Repeat chest xry revealed: IMPRESSION: 1. Small bilateral pleural effusions. 2. Lines and tubes unchanged. Repeat chest xry revealed: IMPRESSION: 1. Slight interval advancement of the endotracheal tube. Remaining lines and tubes unchanged. 2. No evidence of acute cardiopulmonary process. Repeat chest xry revealed: IMPRESSION: 1. Slight interval retraction of the endotracheal tube such that the tip now projects approximately 3.3 cm above the level of the meghan. Remaining lines and tubes unchanged. 2. No evidence of acute cardiopulmonary process. Repeat chest xry revealed: Bowel gas pattern is unremarkable. Enteric tube tip projects over the expected region of the stomach. The lung bases demonstrates bibasilar atelectasis. The lower pelvis is collimated from field of view. No acute osseous abnormality identified. Repeat chest xry revealed: Lines and Tubes: Endotracheal tube tip projects approximately 5.1 cm above the level of the meghan. Enteric catheter terminates within the gastric lumen. Right peripherally inserted central catheter tip and left subclavian central venous catheter tip project over the distal superior vena cava. Lungs: Clear Pleura: No effusion. No pneumothorax. Cardiomediastinal contours: Unremarkable Bones: Unremarkable IMPRESSION: 1. No radiographic evidence of acute cardiopulmonary abnormality. 2. Lines and tubes as above. Repeat chest xry revealed: IMPRESSION: 1. Stable position of the support lines and tubes. 2. Bibasilar airspace disease which may reflect atelectasis and/or pneumonia. Possible small bilateral pleural effusions. Repeat chest xry revealed: IMPRESSION: 1. Lines and tubes unchanged. 2. Persistently diminished lung volumes with concomitant exaggeration of the pulmonary vasculature. No evidence of acute cardiopulmonary process. Repeat chest xry revealed: IMPRESSION: 1. No acute cardiopulmonary disease. 2. Lines and tubes as above. Repeat chest xry revealed: IMPRESSION: 1. Intervally placed right IJ catheter projects in appropriate remaining support devices are stable.2. No other significant change from the previous study. Persistent low lung volumes with vascular crowding and basilar atelectasis. Repeat chest xry revealed: IMPRESSION: Heart is stable in size. There are low lung volumes with probable small left pleural effusion and bibasilar atelectasis. Support lines and tubes appear unchanged in satisfactory position. No pneumothorax. No significant interval change. Repeat chest xry revealed: IMPRESSION: Unchanged bibasilar opacities, likely atelectasis with small pleural effusions Repeat chest xry revealed: IMPRESSION: 1. No significant change from the previous study. Stable support devices. Persistent left pleural effusion and bibasilar airspace disease. Repeat chest xry revealed: IMPRESSION: 1. Interval removal of enteric catheter. Remaining Lines and tubes unchanged. 2. Otherwise, no significant change compared to prior exam allowing for differences in technique. Repeat chest xry revealed: IMPRESSION: Low lung volumes with bibasilar subsegmental atelectasis. Repeat chest xry revealed: IMPRESSION: 1. Tracheostomy ventilation. 2. Low lung volumes and bilateral lung base atelectasis versus scarring re-identified. Repeat chest xry revealed: IMPRESSION: 1. Tracheostomy ventilation. 2. Increased interstitial prominence in the left lung may be due to asymmetric CHF or interstitial pneumonia. 3. Low lung volumes and bilateral lung base opacities. KUB revealed: IMPRESSION: No evidence of ileus or small-bowel obstruction. Brain scan revealed: FINDINGS: Absence of cerebral blood flow is noted along with no brain parenchymal radiotracer uptake. Increased activity is seen in the central face likely representing vascular shunting consistent with the so-called "hot nose" sign. Findings suggest brain however clinical correlation is necessary. IMPRESSION: Findings described above, which would be consistent with brain in the appropriate clinical setting, however clinical correlation is needed. CT of the chest/abdomen/pelvis revealed: IMPRESSION: 1. Hepatic hematoma measuring up to approximately 8.6 cm in greatest dimension, as described above, with hemorrhage extending beyond the liver capsule and into the right pericolic gutter as well as into the pelvis. No definite active arterial bleeding is seen on this exam, although limited evaluation due to the timing of contrast, as this was not a CTA exam. 2. Postsurgical changes of cholecystectomy. 3. Dilated fluid-filled small bowel loops, may be due to postoperative ileus. No small bowel obstruction. 4. Small volume pneumoperitoneum, likely due to recent surgery. Small volume of gas are seen in the upper ventral abdomen from the recent surgery. 5. Dependent atelectasis in the lower lobes. Otherwise, no acute disease in the chest. 6. Endotracheal tube and enteric tube in place. 7. Atrophic right kidney incidentally noted. 8. Additional findings as described above. Critical findings Critical Result: Acute hepatic hematoma with hemorrhage extending beyond the liver capsule into the adjacent portions of the abdomen and into the pelvis as detailed above. Repeat CT of chest/abdomen/pelvis revealed: There is limited interpretation of the chest, abdomen and pelvis without administration of intravenous contrast. Endotracheal tube tip terminates just at the meghan / left main bronchus. Diffuse bilateral pulmonary airspace consolidation bilaterally significantly increased. Bilateral lower lobe lobar consolidation/ atelectasis, increased from prior. Small bilateral pleural effusions. There is extensive edema/ stranding within the upper anterior chest, neck region/supraclavicular region. There is some hyperdensity within this region which could represent components of hematoma / blood products. Heterogeneous appearance of the thyroid gland. Right IJ catheter terminating at the cavoatrial junction. Adrenal glands unremarkable in shape. Perisplenic hematoma. Interval postsurgical changes in the right upper quadrant of the abdomen. There appears to be surgicel/gaseous collection within the previous hematoma cavity, likely representing surgicel. There is a radiopaque density within the resection cavity as well which measures 6.2 x 4.6 cm.. Postoperative changes of the right anterior abdomen with soft tissue emphysema. Small amount of pneumoperitoneum Surgical drainage catheter terminating in the right upper quadrant of the abdomen Right renal parenchymal atrophy. Left kidney demonstrates perinephric edema / stranding. No left hydronephrosis. Nasogastric tube projects towards the distal stomach. Moderate distention small bowel loops. Rectal catheter. Moderate distention of the large bowel loops. Normal appendix. Abdominal aorta normal in caliber. Small amount of ascites fluid/ mesenteric edema. Bladder decompressed by Mora catheter. Soft tissue edema /anasarca. Mesenteric edema. Small amount of ascites fluid. The osseous structures are stable. IMPRESSION: Limited evaluation without contrast. Interval evacuation of the right upper quadrant hematoma. Surgicel within the resection cavity. No significant interval development of new hematoma. There are 2 radiopaque lap pads within the resection cavity . Findings reviewed with Dr. Ledesma at 11:51 a.m. on 01/30/2025 Perisplenic hematoma, similar to previous examination. Extensive bilateral pulmonary airspace consolidation, significantly increased from previous examination. Small bilateral pleural effusions. Right upper quadrant drainage catheter. Pneumoperitoneum. Soft tissue edema / anasarca. Small amount of ascites fluid/ mesenteric edema. Extensive edema within the anterior chest, neck region. Heterogeneous appearance thyroid gland. Other findings as described. CT of the head revealed: IMPRESSION: 1. No evidence of acute intracranial abnormality. Repeat CT of head revealed: FINDINGS: Cerebellar tonsilar herniation. There is sulcal and ventricular effacement. The basal cisterns are effaced. Loss of mario-white matter differentiation is noted. The skull and visible facial bones are intact. The paranasal sinuses, mastoid air cells and middle ear cavities are well-aerated. The soft tissues of the scalp are unremarkable. IMPRESSION: Diffuse cerebral edema with cerebellar tonsillar herniation. Recommend MRI brain for further evaluation. Repeat CT of head revealed: FINDINGS: There is diffuse low attenuation throughout the brain with increased effacement of the ventricles and complete sulcal effacement. There is cerebellar tonsillar herniation. The orbits are normal. There is moderate mucosal thickening within the paranasal sinuses and mastoid air cells. The soft tissues and osseous structures appear within normal limits. IMPRESSION: 1. Findings as above suggesting worsening diffuse cerebral edema in the setting of anoxic brain injury in the given clinical setting. Further clinical correlation is suggested. CT of Neck revealed: IMPRESSION: Limited evaluation without contrast. Extensive soft tissue edema within the neck extending into the anterior / upper chest and anterior mediastinum . Retropharyngeal edema. Heterogeneous appearance of the thyroid gland. Inferior cerebellar tonsillar herniation better seen on the prior CT Renal Ultrasound revealed: IMPRESSION: 1. Right kidney not visible. 2. Left kidney is enlarged. 3. No hydronephrosis. Venous duplex of lower ext revealed: IMPRESSION: NO SONOGRAPHIC EVIDENCE FOR DEEP VENOUS THROMBOSIS IN THE RIGHT LOWER EXTREMITY VEINS. Repeat (bilateral) Venous duplex of lower ext revealed: Impression: 1. No right or left femoropopliteal venous thrombosis. EEG reported: This is a remarkably abnormal EEG, this EEG seen in severe cerebral dysfunction due to metabolic/hypoxic encephalopathy or medication effects, unless this is caused by reversible etiology, this EEG is suggestive of a poor prognosis for meaningful recovery, please correlate clinically. Arrival EKG revealed sinus tachycardia with nonspecific ST-T changes Tele reveals sinus tachycardia Echocardiogram revealed: Technically limited study secondary to poor acoustic windows. Left ventricle: Left ventricle was normal-sized with normal systolic function. LVEF was 55-60%. No gross wall motion abnormality was seen. Right ventricle was mildly dilated with normal systolic function. Left atrium was normal-sized. Right atrium was mildly dilated. Aortic valve: Aortic valve was not well visualized. There was no aortic insufficiency/stenosis. There was no mitral regurgitation. There was trace tricuspid regurgitation. Pulmonary valve was not well visualized. IVC was not visualized. Right ventricular systolic pressure was assessed around 48 mm Hg. There was no pericardial effusion. Patient is a 24-year-old gentleman who presented with post arrest. It seems that the patient had hemorrhagic (intra-abdominal) presentation. Patient did have elective laparoscopic cholecystectomy the day before presentation. On the day of presentation, the patient was taken back to operating room and this time Laparotomy was done for hepatic hematoma. Patient does have multiorgan involvement. Clinically there is no brainstem reflexes. Shock liver/acute renal failure is considered. Troponin has been high. EKG did not reveal any STEMI. Presentation could be high troponin secondary to demand physiology. Patient does not have any risk factors for baseline coronary artery disease. In ideal scenario, ischemic workup/cardiac catheterization could be more revealing. Unfortunately, the patient does have acute renal failure which could be worsened by cardiac catheterization at this point. As there was no higher brain functions the suggestion is to wait and see if patient regains any higher brain function. It is of note that during cardiac catheterization, the patient may need some anticoagulation/antiplatelets. At this point patient is having significant anemia/bleeding and receiving blood transfusion and holding off of scenario forcing Anticoagulation/antiplatelets is advised. I had a long discussion with family members and Mother (repeatedly). Clinically patient has multiorgan failure. Secondary to active bleeding, we will avoid anticoagulation/antiplatelets for now. Being managed in ICU. Was taken to OR repeatedly. Still no reflexes. Echocardiogram revealed no WMA and also revealed good EF. It also revealed increased Pulmonary Artery Pressure in favor of component of Pulmonary Hypertension. Review of Echo images revealed good right ventricular systolic function. Not typical for Pulmonary Emboli. Still, PE cannot be ruled out. If PE is ruled out, then it is possible that patient had Pulmonary Hypertension from before (Baseline history of Asthma may actually reflect it). s/p PRBC transfusion (multiple). Being followed by Surgery, Nephrology, Hematology, Pulmonary, Neurology and GI. . Repeat imaging revealed cerebellar tonsillar herniation. Neurology diagnosed Hypoxic/Metabolic Encephalopathy also. EEG findings question meaningful recovery. Neurology declared patient: brain . Neurology second opinion was in favor of Anoxic/Hypoxic Encephalopathy. Repeat imaging of brain revealed worsening diffuse cerebral edema and also again revealed cerebellar tonsillar herniation. Family are contemplating Trach/PEG. Patient is seen by GI. s/p Tracheostomy. s/p PEG. s/p repeated PRBC transfusion. Was on pressure support. s/ p Arrest Intra-abdominal bleeding Hepatic hematoma Multiorgan failure, due to shock Shock liver Lactic Acidosis Acute renal failure Acute respiratory failure, on vent support Status post laparotomy Status post laparoscopic cholecystectomy Abnormal troponin, evaluated to reflect possible demand physiology History of gallstones History of asthma Obesity History of marijuana abuse Consumptive Coagulopathy / DIC Pulmonary Hypertension Cerebellar tonsillar Herniation. Encephalopathy, hypoxic/metabolic Renal failure, started on hemodialysis Brain scan questions brain Anoxic Encephalopathy s/p Tracheostomy s/p PEG Hypotension, Cardiac suggestion for management: Manage in ICU Follow-up electrolytes and kidney function tests and correct abnormalities Evaluation and management of respiratory failure as per Pulmonary Evaluation and management of Cerebellar tonsillar herniation and worsening cerebral edema as per Neurology/surgery/primary team V/Q scan could not be completed Anoxic/Hypoxic Encephalopathy Echocardiogram revealed no WMA and also revealed good EF. It also revealed increased Pulmonary Artery Pressure in favor of component of Pulmonary Hypertension. Hematology follow up (to comment on prophylaxis / treatment of Pulmonary Emboli) Surgical follow up Nephrology follow up (started on hemodialysis) and Hematology follow up Patient is seen by GI On Midodrine: 10 mg TID Off IV pressure support for now DVT prophylaxis as per primary team (compression stocking Vs Lovenox..) Long-term prognosis depends on the above and most importantly regaining of the higher brain function: looks very grim Ischemic workup may be considered only after regaining higher brain function or any special change in clinical presentation Further evaluation and management depends on the above and clinical course A total of 75 minutes was spent reviewing the patient record, examining the patient, making a diagnostic and therapeutic plan, discussing this plan with medical personnel, following up on diagnostic studies and following the patient for clinical stability excluding any and all procedures. At least 50% of this time was spent in direct, [id number] contact. Thank you for allowing me to participate in this patient's care. Further recommendations will depend on patient's clinical course. Please do not hesitate to contact me if you have any questions or concerns. This medical document was created using electronic medical record system with [employer] computerized dictation system. Although this document has been carefully reviewed, there may still be some phonetic and typographical errors. These areas are purely typographical due to the imperfection of the software programs, and do not reflect any compromise in the patient's medical care. Dietary Evaluation Review Recommendations by RD: PPN/TPN Comments: 1) Increase TPN rate to meet at least 75% of estimated daily needs 2) Advance to renal cardiac diet when medically feasible, pending ST approval 3) Follow-up with cardiology, pulmonology, nephrology, neurology, and gastroenterology 4) Continue to monitor I&O, labs, and skin integrity Expected Outcomes/Goals: 1) nutritional support to meet at least 75% of estimated daily needs 2) labs and wound to improve 3) diet to advance 4) gradual wt loss 5) f/u in 2-3 days Plan discussed with: Other (nurse) KATHLEEN COHEN MD Feb 25, 2025 08:57
[2025-02-25 09:09] LABS: Base Excess -2.0 mmol/L (-2.0-3.0)
[2025-02-25] MEDS: Vital AF 1.2 Cal 1 liter bottle GT SCH (15:42)
[2025-02-25] MEDS: ACCU-CHEK COMFORT CURVE STRIP VI SCH (17:33)
[2025-02-25] MEDS: InsuLIN REG 1unit/0.01ml Soln (100units/ml) SC SCH (17:42)
--- NOTE | 2025-02-25 17:54 | DVHPNRES ---
Progress Note Date Seen: Feb 25, 2025 Resident Creating Document: ARNOLD MUHAMMAD RESDIENT Has the PT tested + for MRSA If YES, has PT been informed?: No Medical Necessity Reason Pt with a Central, PICC or Fol: Yes The following are medically ne: Mora Catheter Reason for mora catheter: Nakul. Abd Surgery, Strict I&O, Total Immobilization Subjective Review of Systems Patient seen and evaluated in bedside today. Patient currently on mechanical ventilation, vent setting peep 7, tidal volume 500, FiO2 55, respiratory rate 10. Labs reviewed. Objective vital signs Vital Sign Date Time Temp Pulse Resp B/P (MAP) Pulse Ox O2 Delivery O2 Flow Rate FiO2 02/25/25 16:30 98.2 98 10 132/96 (108) 97 208.8 02/25/25 16:00 40 02/25/25 16:00 Mechanical Ventilator+ 02/25/25 11:25 40.0 Total Intake and Output 02/24/25 02/24/25 02/25/25 15:00 23:00 07:00 Intake Total 703.5 ml 1186 ml 1144 ml Output Total 250 ml 650 ml Balance 703.5 ml 936 ml 494 ml medications Current Medications Medications Dose Ordered Sig/Serenity Route Start Time Stop Time Status Last Admin Dose Admin Levalbuterol HCl 0.625 mg Q4HR PRN NEB 01/29/25 20:00 02/22/25 06:31 0.625 MG Ipratropium [place] 0.5 mg Q4HPRN PRN NEB 01/29/25 20:00 02/22/25 06:31 0.5 MG Sodium Chloride 10 ml QSHIFT@10,22 IV 02/04/25 22:00 02/25/25 10:21 10 ML Artificial Tears 1 drop Q4HP PRN EACHEYE 02/08/25 07:30 02/21/25 21:29 1 DROP Epoetin Fiona-epbx 8,000 unit MWF@2100 SC 02/17/25 21:00 Hold 02/19/25 21:49 8,000 UNIT Dextrose/Sodium Chloride 1,000 ml @ 75 mls/hr [id number] IV 02/20/25 03:45 02/25/25 17:32 75 MLS/HR Midodrine 10 mg TID@0600,1200,1800 PO 02/21/25 12:00 02/25/25 17:32 10 MG Vasopressin 20 units/Sodium Chloride 100 ml @ 9 mls/hr Q11H7M IV 02/22/25 10:00 02/23/25 08:24 9 MLS/HR Piperacillin Sod/ Tazobactam Sod 50 ml @ 12.5 mls/hr Q8H IV 02/23/25 10:00 02/25/25 17:32 12.5 MLS/HR Pantoprazole Sodium 40 mg DAILY IV 02/24/25 10:00 02/25/25 10:22 40 MG Metoclopramide HCl 5 mg Q6HR IV 02/24/25 00:00 02/25/25 17:31 5 MG Norepinephrine Bitartrate 250 ml @ 3.75 mls/hr Q24H IV 02/24/25 08:45 02/24/25 07:30 3.75 MLS/HR Erythromycin 250 mg Q6HR PO 02/24/25 18:00 02/25/25 17:33 250 MG Amino Acids 0 ml @ 0 mls/hr PER PHARMACY IV 02/24/25 21:00 Amino Acids/ Electrolytes/ Dextrose 1,000 ml @ 42 mls/hr DAILY@2200 IV 02/24/25 22:00 02/24/25 21:45 42 MLS/HR Enteral Nutritional Formula 1,000 ml 1000 GT 02/25/25 10:00 02/25/25 15:42 1,000 ML Diagnostic Test (Pha) 1 strip Q6HR 02/25/25 18:00 02/25/25 17:33 1 STRIP Insulin Human Regular FOLLOW SLIDING SCALE Q6HR SC 02/25/25 18:00 Dextrose 50 ml UD IV 02/25/25 18:00 Hydrocortisone Sodium Succinate 50 mg BID IV 02/25/25 22:00 Examination General: RASS -5, afebrile, mucosae are moist Cardiovascular: Normal S1 and S2. No murmurs, gallops or rubs Respiratory: Mechanically assisted ventilation, equal bilateral airway entree. Clear lung sounds on auscultation Abdomen: Soft, nontender, no organomegaly, with surgical wound on abdomin MSK/skin: Mobilization of limbs cannot be evaluated. Skin is dry and warm. Neurological: Orientation cannot be assessed. Pupils are dilated and nonreactive to light, absent brainstem reflexes. laboratory and microbiology Laboratory Tests 02/25/25 06:42 02/25/25 02:56 Test 02/25/25 02:56 Range/Units Serum Glucose 118 H 74-106 mg/dL Microbiology Date/Time Source Procedure Growth Status 02/22/25 21:21 Urine - [place]a [place] Urine Culture - Final Complete 02/20/25 09:30 Blood Blood Culture - Final NO GROWTH AFTER 5 DAYS OF INCUBATION. Complete 02/19/25 11:44 Trachea Gram Stain - Final Complete 02/19/25 11:44 Respiratory Culture - Final Klebsiella pneumoniae Complete 01/29/25 10:43 Sputum Gram Stain - Final Complete 01/29/25 10:43 Sputum Respiratory Culture - Final Complete Labs and/or images reviewed: Labs reviewed by me, Image(s) reviewed by me Problem List/Assessment/Plan Problem List/Assessment/Plan This is a 24-year-old male with no significant past medical history underwent elective laparoscopic cholecystectomy on 01/28 at [facility] (due to cholelithiasis), on 2nd day postop at home became lethargic and subsequently coded. ROSC was achieved with CPR, abdominal CT scan showed intra-abdominal hematoma, underwent emergent laparotomy and drained about 500-750 thrombosed and dark blood. NEURO: Hypoxic encephalopathy, due to cardiac arrest Anoxic brain injury * RASS Score -5 * Head CT from 01/30 shows, Cerebellar tonsilar herniation. There is sulcal and ventricular effacement. The basal cisterns are effaced. Loss of mario-white matter differentiation is noted. * Head CT on 02/11 shows worsening diffuse cerebral edema in the setting of anoxic brain injury * BRNNM-brain imaging, shows absence blood flow, findings suggest brain in the appropriate clinical setting * Plan: transfering to LTAC CARDIOVASCULAR: NSTEMI possible type 2 Status post cardiac arrest Distributive shock (vasoplegia)/neurogenic shock/septic shock vasopressin * Cardiology on the board, recommended medical management * Echo from 01/30 shows,Technically limited study secondary to poor acoustic windows, normal LV size and function, 55-60% * Plan: Levophed, midodrine 10 mg t.i.d. hydrocortisone 50 mg q.6 hours PULMONARY: Acute hypoxic respiratory failure, likely due to anoxic brain injury Cxr showed bilateral mild pulmonary vascular congestion GASTROINTESTINAL: Acute transaminitis secondary to hypovolemic shock Coagulopathy Hypoalbuminemia Status post laparoscopic cholecystectomy Status post exploratory laparotomy for hemoperitoneum Transaminitis, likely due to TPN GENITOURINARY: HARLEEN secondary to hypovolemic shock * Nephrology on the board, performed dialysis on 02/03 * IV Bumex 2 mg b.i.d. METABOLIC: Severe anion gap metabolic acidosis due to lactic acidosis Hypernatremia Grade 2 obesity, BMI 35.7 kg per m2 Hypoglycemia HEME: Severe anemia, due to bleeding * Received 3 units of PRBC, 2 units of FFP and 1 unit of cryoprecipitate * Monitor H&H and epoetin fiona INFECTIOUS DISEASE: Leucocytosis Lactic acidosis * Urine culture, blood culture and respiratory culture shows no growth * On Zosyn DIET: TPN DVT prophylax: Hold GI prophylaxis: Protonix Code status: Full code LINES/DRAINS/ACCESS: ETT: Intubated on 01/29 IV access: Lt IJ placed on 01/29/25 left subclavian, tunneled dialysis catheter placed on 02/14 Drips: On Levophed Mora catheter: Placed on 01/29 DISPOSITION: ICU status Patient's status discussed with the patient's mother at the bedside. Critical care time spent more than 47 minutes, including patient care, chart review, and updating the family. Excluding any procedures. Case discussed with Dr. Troy Plan discussed with: Other Dietary Evaluation Review Recommendations by RD: PPN/TPN Comments: 1) Increase TPN rate to meet at least 75% of estimated daily needs 2) Advance to renal cardiac diet when medically feasible, pending ST approval 3) Follow-up with cardiology, pulmonology, nephrology, neurology, and gastroenterology 4) Continue to monitor I&O, labs, and skin integrity Expected Outcomes/Goals: 1) nutritional support to meet at least 75% of estimated daily needs 2) labs and wound to improve 3) diet to advance 4) gradual wt loss 5) f/u in 2-3 days ARNOLD MUHAMMAD Feb 25, 2025 17:54 JEFFREY TROY MD Feb 26, 2025 13:24
--- NOTE | 2025-02-25 17:58 | DVHPN2 ---
Progress Note Date Seen: Feb 25, 2025 Has the PT tested + for MRSA If YES, has PT been informed?: No Medical Necessity Reason Pt with a Central, PICC or Fol: Yes The following are medically ne: Mora Catheter Reason for mora catheter: Nakul. Abd Surgery, Strict I&O, Total Immobilization Subjective Review of Systems Pt's mother and brother at the bedside. Per RN, no changes. Remains stable and TB were initiated 2 hrs ago. However, remains bleeding/oozing from PEG site. Not notified until now. Objective vital signs Vital Sign Date Time Temp Pulse Resp B/P (MAP) Pulse Ox O2 Delivery O2 Flow Rate FiO2 02/25/25 16:30 98.2 98 10 132/96 (108) 97 208.8 02/25/25 16:00 40 02/25/25 16:00 Mechanical Ventilator+ 02/25/25 11:25 40.0 Total Intake and Output 02/24/25 02/24/25 02/25/25 15:00 23:00 07:00 Intake Total 703.5 ml 1186 ml 1144 ml Output Total 250 ml 650 ml Balance 703.5 ml 936 ml 494 ml medications Current Medications Medications Dose Ordered Sig/Serenity Route Start Time Stop Time Status Last Admin Dose Admin Levalbuterol HCl 0.625 mg Q4HR PRN NEB 01/29/25 20:00 02/22/25 06:31 0.625 MG Ipratropium [place] 0.5 mg Q4HPRN PRN NEB 01/29/25 20:00 02/22/25 06:31 0.5 MG Sodium Chloride 10 ml QSHIFT@10,22 IV 02/04/25 22:00 02/25/25 10:21 10 ML Artificial Tears 1 drop Q4HP PRN EACHEYE 02/08/25 07:30 02/21/25 21:29 1 DROP Epoetin Gunn[place]-epbx 8,000 unit MWF@2100 SC 02/17/25 21:00 Hold 02/19/25 21:49 8,000 UNIT Dextrose/Sodium Chloride 1,000 ml @ 75 mls/hr [id number] IV 02/20/25 03:45 02/25/25 17:32 75 MLS/HR Midodrine 10 mg TID@0600,1200,1800 PO 02/21/25 12:00 02/25/25 17:32 10 MG Vasopressin 20 units/Sodium Chloride 100 ml @ 9 mls/hr Q11H7M IV 02/22/25 10:00 02/23/25 08:24 9 MLS/HR Piperacillin Sod/ Tazobactam Sod 50 ml @ 12.5 mls/hr Q8H IV 02/23/25 10:00 02/25/25 17:32 12.5 MLS/HR Pantoprazole Sodium 40 mg DAILY IV 02/24/25 10:00 02/25/25 10:22 40 MG Metoclopramide HCl 5 mg Q6HR IV 02/24/25 00:00 02/25/25 17:31 5 MG Norepinephrine Bitartrate 250 ml @ 3.75 mls/hr Q24H IV 02/24/25 08:45 02/24/25 07:30 3.75 MLS/HR Erythromycin 250 mg Q6HR PO 02/24/25 18:00 02/25/25 17:33 250 MG Amino Acids 0 ml @ 0 mls/hr PER PHARMACY IV 02/24/25 21:00 Amino Acids/ Electrolytes/ Dextrose 1,000 ml @ 42 mls/hr DAILY@2200 IV 02/24/25 22:00 02/24/25 21:45 42 MLS/HR Enteral Nutritional Formula 1,000 ml 1000 GT 02/25/25 10:00 02/25/25 15:42 1,000 ML Diagnostic Test (Pha) 1 strip Q6HR 02/25/25 18:00 02/25/25 17:33 1 STRIP Insulin Human Regular FOLLOW SLIDING SCALE Q6HR SC 02/25/25 18:00 Dextrose 50 ml UD IV 02/25/25 18:00 Hydrocortisone Sodium Succinate 50 mg BID IV 02/25/25 22:00 Examination Neuro. Unchanged. Dilated fixed pupils. No reflexes. CV. HR 90s. BP 139/96. Previous LSCV HD catheter site C/D/I. Right PC and PICC catheter exit sites remain C/D/I. Pulmonary: Tracheostomy in place. No active bleeding. C/D/I. Mechanical ventilator support 550/10/35%/+7. RR 10/min on vent display. GI: Soft, obese, nondistended and non tender. Incisions and dressing C/D/I. PEG in place. Oozing. Will remove previous suture and place another one. TF at 10 mL/hr. . Mora catheter in place. Clear yellow urine in collection bag Extremities. No edema Mild orbital edema Skin: Stable jaundice. laboratory and microbiology Laboratory Tests 02/25/25 06:42 02/25/25 02:56 Test 02/25/25 02:56 Range/Units Serum Glucose 118 H 74-106 mg/dL Microbiology Date/Time Source Procedure Growth Status 02/22/25 21:21 Urine - Mora [place] Urine Culture - Final Complete 02/20/25 09:30 Blood Blood Culture - Final NO GROWTH AFTER 5 DAYS OF INCUBATION. Complete 02/19/25 11:44 Trachea Gram Stain - Final Complete 02/19/25 11:44 Respiratory Culture - Final Klebsiella pneumoniae Complete 01/29/25 10:43 Sputum Gram Stain - Final Complete 01/29/25 10:43 Sputum Respiratory Culture - Final Complete Labs and/or images reviewed: Labs reviewed by me, Image(s) reviewed by me Problem List/Assessment/Plan Problems(with codes): (1) ARF (acute renal failure) (2) Ventilator dependent (3) Tonsillar hernia into foramen magnum (4) Cerebral edema (5) Cerebral edema due to anoxia (6) Cardiopulmonary arrest with successful resuscitation (7) 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 CT revealed cerebral edema and tonsillar herniation.EEG no electric activity. Cerebral perfusion study confirmed no perfusion radiographically consistent with brain which was concordant with initial clinical diagnosis and EEG. However, pt continues demonstrating brainstem function as he is breathing over vent set rate. Fluctuating HR, RR, BP and temperature. Could be secondary to autonomic dysfunction. F/U (3rd) CT brain worsening cerebral edema and tonsillar herniation. CV:Hemodynamically stable. Normal HR and BP. Possible autonomic dysfunction. Continues off pressors. Continue Midodrine 10 mg via PEG. May have to adjust dose. Will defer to cardiology. Cardiology assistance appreciated. Mechanical DVT prophylaxis.Pulmonary hypertension possibly unknowingly preexistent. Duplex negative for DVT Pulmonary: VDRF. S/p tracheostomy. Pending ABG. VT to 550, FIO2 40%, ABG normal. Sputum Cx Klebsiella pneumoniae sensitive to Zosyn. O2 Sat 95%. Continue ventilator support. Appreciate pulmonary medicine assistance. Pulmonary medicine following. GI: Continue BID GI prophylaxis. Hepatic shock. Improving LFTs.decreasing TB. Possible TPN related cholestasis. Vital AF 10 mL/hr TF. Measure RV, hold for RV 150 mL or higher. Erythromycin as prokinetic.Continue Clinimix for now. PEG site suture will be revised. Contonued oozing. : Hyperkalemia resolved after HD. ARF/ATN. Strict I&O. Bumex gtt. Mora to gravity. Appreciate nephrology assistance. Replace/correct electrolytes. HD per nephrology. Consider volume neutral HD. If possible. Decrease IVF to 30 mL/hr. Cliniix at 42 mL/hr. Heme/ID: WBC 12, likely inflammatory. Hgb 8. Likely from oozing. 1 u PRBC. UCx NGTD. Improving INR, PT and PPT normalized,nearly normal. Normal fibrinogen. Elevated VWF. Hematology believes secondary to inflammatory response/reaction. Minimizing blood draw frequency to avoid worsening anemia. Repeat labs AM. Appreciate hematology assistance. Continue Zosyn for Klebsiella pneumoniae PNA. Endocrine: Tight glycemic control. Hold hydrocortisone.Observe BP. Skin: Skin care and pressure ulcer precautions. Pending Txfr to subacute rehab Plan discussed with: Other (Mother, brother and RN) My Orders My Orders Orders - JITENDRA ZAMORA MD Procedure Category Date Status Time Communication Order ORDERS 02/24/25 Transmitted 17:45 Clinimix Per Pharmacy PHA 02/24/25 In Process 21:00 Amino Acid Infusion PHA 02/24/25 In Process In D10w (Clinimix 4. 22:00 Nutritional PHA 02/25/25 In Process Supplements (Vital Af 10:00 Communication Order ORDERS 02/25/25 Transmitted 07:00 Glucose Blood PHA 02/25/25 In Process (Accu-Chek Comfort 18:00 Insulin R (Human) PHA 02/25/25 In Process (Insulin R) 18:00 Dextrose 50% Syringe PHA 02/25/25 In Process 18:00 Magnesium LAB 02/26/25 Verified 05:00 Phosphorus LAB 02/26/25 Verified 05:00 Clinimix Per Pharmacy YANET 02/25/25 In Process 22:00 Dietary Evaluation Review Recommendations by RD: PPN/TPN Comments: 1) Increase TPN rate to meet at least 75% of estimated daily needs 2) Advance to renal cardiac diet when medically feasible, pending ST approval 3) Follow-up with cardiology, pulmonology, nephrology, neurology, and gastroenterology 4) Continue to monitor I&O, labs, and skin integrity Expected Outcomes/Goals: 1) nutritional support to meet at least 75% of estimated daily needs 2) labs and wound to improve 3) diet to advance 4) gradual wt loss 5) f/u in 2-3 days JITENDRA ZAMORA MD Feb 25, 2025 17:58
[2025-02-25] MEDS ORDERED: DEXTROSE (50%) 50ML SYRG IV SCH (18:00)
[2025-02-25] MEDS: LIDOCAINE 1% HCL (LOCAL ANESTH.) INJ 20ML MDV IJ ONE (18:33)
[2025-02-25] MEDS: LIDOCAINE 1% (LOCAL ANESTH.) PF 5ml SDV ONE (18:33)
--- NOTE | 2025-02-25 20:54 | DVHPN2 ---
Progress Note Date Seen: Feb 25, 2025 Has the PT tested + for MRSA If YES, has PT been informed?: No Medical Necessity Reason Pt with a Central, PICC or Fol: Yes The following are medically ne: Mora Catheter Reason for mora catheter: Nakul. Abd Surgery, Strict I&O, Total Immobilization Subjective Patient reports: Other (no new events) Review of Systems: Deferred Objective vital signs Vital Sign Date Time Temp Pulse Resp B/P (MAP) Pulse Ox O2 Delivery O2 Flow Rate FiO2 02/25/25 20:24 96 10 131/92 (105) 97 40 02/25/25 20:15 98.2 208.8 02/25/25 20:00 Mechanical Ventilator+ 02/25/25 11:25 40.0 Total Intake and Output 02/24/25 02/24/25 02/25/25 15:00 23:00 07:00 Intake Total 703.5 ml 1186 ml 1144 ml Output Total 250 ml 650 ml Balance 703.5 ml 936 ml 494 ml medications Current Medications Medications Dose Ordered Sig/Serenity Route Start Time Stop Time Status Last Admin Dose Admin Levalbuterol HCl 0.625 mg Q4HR PRN NEB 01/29/25 20:00 02/22/25 06:31 0.625 MG Ipratropium [place] 0.5 mg Q4HPRN PRN NEB 01/29/25 20:00 02/22/25 06:31 0.5 MG Sodium Chloride 10 ml QSHIFT@10,22 IV 02/04/25 22:00 02/25/25 10:21 10 ML Artificial Tears 1 drop Q4HP PRN EACHEYE 02/08/25 07:30 02/21/25 21:29 1 DROP Epoetin Gunnar-epbx 8,000 unit MWF@2100 SC 02/17/25 21:00 Hold 02/19/25 21:49 8,000 UNIT Dextrose/Sodium Chloride 1,000 ml @ 75 mls/hr [id number] IV 02/20/25 03:45 02/25/25 17:32 75 MLS/HR Midodrine 10 mg TID@0600,1200,1800 PO 02/21/25 12:00 02/25/25 17:32 10 MG Vasopressin 20 units/Sodium Chloride 100 ml @ 9 mls/hr Q11H7M IV 02/22/25 10:00 02/23/25 08:24 9 MLS/HR Piperacillin Sod/ Tazobactam Sod 50 ml @ 12.5 mls/hr Q8H IV 02/23/25 10:00 02/25/25 17:32 12.5 MLS/HR Pantoprazole Sodium 40 mg DAILY IV 02/24/25 10:00 02/25/25 10:22 40 MG Metoclopramide HCl 5 mg Q6HR IV 02/24/25 00:00 02/25/25 17:31 5 MG Norepinephrine Bitartrate 250 ml @ 3.75 mls/hr Q24H IV 02/24/25 08:45 02/24/25 07:30 3.75 MLS/HR Erythromycin 250 mg Q6HR PO 02/24/25 18:00 02/25/25 17:33 250 MG Amino Acids 0 ml @ 0 mls/hr PER PHARMACY IV 02/24/25 21:00 Amino Acids/ Electrolytes/ Dextrose 1,000 ml @ 42 mls/hr DAILY@2200 IV 02/24/25 22:00 02/24/25 21:45 42 MLS/HR Enteral Nutritional Formula 1,000 ml 1000 GT 02/25/25 10:00 02/25/25 15:42 1,000 ML Diagnostic Test (Pha) 1 strip Q6HR 02/25/25 18:00 02/25/25 17:33 1 STRIP Insulin Human Regular FOLLOW SLIDING SCALE Q6HR SC 02/25/25 18:00 Dextrose 50 ml UD IV 02/25/25 18:00 Examination: GENERAL:Abnormal, LUNGS:Abnormal, MSK:Abnormal, NEURO:Abnormal laboratory and microbiology Laboratory Tests 02/25/25 06:42 02/25/25 02:56 Test 02/25/25 02:56 Range/Units Serum Glucose 118 H 74-106 mg/dL Microbiology Date/Time Source Procedure Growth Status 02/22/25 21:21 Urine - Mora [place] Urine Culture - Final Complete 02/20/25 09:30 Blood Blood Culture - Final NO GROWTH AFTER 5 DAYS OF INCUBATION. Complete 02/19/25 11:44 Trachea Gram Stain - Final Complete 02/19/25 11:44 Respiratory Culture - Final Klebsiella pneumoniae Complete 01/29/25 10:43 Sputum Gram Stain - Final Complete 01/29/25 10:43 Sputum Respiratory Culture - Final Complete Problem List/Assessment/Plan Problem List/Assessment/Plan Acute kidney injury likely ischemic ATN in the setting of shock, FeNa > 2%, nonoliguric Acute respiratory failure, intubated on ventilator Status post cardiac arrest Anoxic encephalopathy//brain herniation Hyperkalemia secondary to above Metabolic acidosis anion gap secondary to lactic acidosis secondary to reduced perfusion from hemorrhage Hemodynamic shock from bleeding Acute blood loss anemia/post op Status post laparoscopic cholecystectomy on 01/28/25 [facility] Status post ex lap, 01/29 Positive troponins NSTEMI--likely demand ischemia Shock liver Hypokalemia Recommendations Hemodialysis tomorrow dc bumex drip dc ivf Plan discussed with: Other My Orders My Orders Orders - SILVIA NOONAN MD Procedure Category Date Status Time Communication Order ORDERS 02/25/25 Transmitted 16:18 Hemodialysis Orders ORDERS 02/26/25 Verified 04:00 Dietary Evaluation Review Recommendations by RD: PPN/TPN Comments: 1) Increase TPN rate to meet at least 75% of estimated daily needs 2) Advance to renal cardiac diet when medically feasible, pending approval 3) Follow-up with cardiology, pulmonology, nephrology, neurology, and gastroenterology 4) Continue to monitor I&O, labs, and skin integrity Expected Outcomes/Goals: 1) nutritional support to meet at least 75% of estimated daily needs 2) labs and wound to improve 3) diet to advance 4) gradual wt loss 5) f/u in 2-3 days SILVIA NOONAN MD Feb 25, 2025 20:54
[2025-02-25] MEDS ORDERED: HYDROCORTISONE SOD SUCC 100 MG/2ML INJ VIAL IV SCH (22:00)
--- NOTE | 2025-02-25 22:55 | DVHPN2 ---
Progress Note - Dictate Date Seen: Feb 25, 2025 Has the PT tested + for MRSA If YES, has PT been informed?: No Medical Necessity Reason Pt with a Central, PICC or Fol: Yes The following are medically ne: Mora Catheter Reason for mora catheter: Nakul. Abd Surgery, Strict I&O, Total Immobilization Subjective Mr. Gillis is a 24 years old gentleman with a history of asthma, gallstone, obesity, the patient was brought to the [facility] on 01/29/2025 with a chief complaint of witnessed cardiopulmonary arrest. I have seen and examined the patient, I have discussed with his nurse, I have discussed with his nurse, he remained nonresponsive, no change in the neurologic physical examination He has been more seizures to the stomach, I do not see active bleeding from the PEG site UDS, 01/29/2025 1616: Fentanyl, benzo Urinalysis, 01/29/2025: WBC: 1, urine leukocyte esterase: Negative ABG, 01/29/2025: Metabolic acidosis, 01/30/25: Metabolic acidosis VWF, 02/11/25: 380 WBC/HB/PLT/MCV, 01/29/2025: 20.1/8.3/234/107.4. 01/30/2025: 28.4/12.1/127/91.2, 02/24/2025: 10.2/10/417/89.6 PT/INR/PTT, 01/29/2025: 19.6/1.98/53.8. 01/30/2025: 13.6/1.32/28.7, 02/15/2025: 11.5/1.09/32.1, 02/24/25: 13/1.25/36.7 Na 01/29/2025: 146, 152, 01/30/2025: 147 BUN/CR, 01/30/2025: 29/4.34, 02/24/2025: 70/8.68 Lactic acid, 01/29/2025: 1749, 01/30/2025: 11.4 Troponin one high sensitivity, 01/29/2025: 2273, 4364, 7474 TBI/AST/ALT/AP, 01/29/2025: 1.3/676/700/136. 9/: 2.10/4635/2521/137 02/24/2025: 4.4/146/37/827 EEG, 02/01/2025: This is a remarkably abnormal EEG, this EEG seen in severe cerebral dysfunction due to metabolic/hypoxic encephalopathy or medication effects, unless this is caused by reversible etiology, this EEG is suggestive of a poor prognosis for meaningful recovery, please correlate clinically. CT head, 01/29/2025:No evidence of acute intracranial abnormality (I see signs suggestive of diffuse brain edema) CT head 01/30/2025: Diffuse cerebral edema with cerebellar tonsillar herniation. Recommend MRI brain for further evaluation. Critical Result: above finding CT head, 02/10/2025: Findings as above suggesting worsening diffuse cerebral edema in the setting of anoxic brain injury in the given clinical setting. Further clinical correlation is suggested. CT abdomen, pelvis, 01/29/2025: 1. Hepatic hematoma measuring up to approximately 8.6 cm in greatest dimension, as described above, with hemorrhage extending beyond the liver capsule and into the right pericolic gutter as well as into the pelvis. No definite active arterial bleeding is seen on this exam, although limited evaluation due to the timing of contrast, as this was not a CTA exam. 2. Postsurgical changes of cholecystectomy. 3. Dilated fluid-filled small bowel loops, may be due to postoperative ileus. No small bowel obstruction. 4. Small volume pneumoperitoneum, likely due to recent surgery. Small volume of gas are seen in the upper ventral abdomen from the recent surgery. 5. Dependent atelectasis in the lower lobes. Otherwise, no acute disease in the chest. 6. Endotracheal tube and enteric tube in place. 7. Atrophic right kidney incidentally noted. 8. Additional findings as described above Brain imaging flow, 02/03/2025: Findings described above, which would be consistent with brain in the appropriate clinical setting, however clinical correlation is needed. vital signs Vital Sign Date Time Temp Pulse Resp B/P (MAP) Pulse Ox O2 Delivery O2 Flow Rate FiO2 02/25/25 22:30 98.4 97 10 125/88 (100) 96 209.1 02/25/25 22:00 Mechanical Ventilator+ 40 40 02/25/25 11:25 40.0 Total Intake and Output 02/24/25 02/24/25 02/25/25 15:00 23:00 07:00 Intake Total 703.5 ml 1186 ml 1144 ml Output Total 250 ml 650 ml Balance 703.5 ml 936 ml 494 ml medications Current Medications Medications Dose Ordered Sig/Serenity Route Start Time Stop Time Status Last Admin Dose Admin Levalbuterol HCl 0.625 mg Q4HR PRN NEB 01/29/25 20:00 02/22/25 06:31 0.625 MG Ipratropium [place] 0.5 mg Q4HPRN PRN NEB 01/29/25 20:00 02/22/25 06:31 0.5 MG Sodium Chloride 10 ml QSHIFT@10,22 IV 02/04/25 22:00 02/25/25 21:31 10 ML Artificial Tears 1 drop Q4HP PRN EACHEYE 02/08/25 07:30 02/21/25 21:29 1 DROP Epoetin Gunnar-epbx 8,000 unit MWF@2100 SC 02/17/25 21:00 Hold 02/19/25 21:49 8,000 UNIT Midodrine 10 mg TID@0600,1200,1800 PO 02/21/25 12:00 02/25/25 17:32 10 MG Vasopressin 20 units/Sodium Chloride 100 ml @ 9 mls/hr Q11H7M IV 02/22/25 10:00 02/23/25 08:24 9 MLS/HR Piperacillin Sod/ Tazobactam Sod 50 ml @ 12.5 mls/hr Q8H IV 02/23/25 10:00 02/25/25 17:32 12.5 MLS/HR Pantoprazole Sodium 40 mg DAILY IV 02/24/25 10:00 02/25/25 10:22 40 MG Metoclopramide HCl 5 mg Q6HR IV 02/24/25 00:00 02/25/25 17:31 5 MG Norepinephrine Bitartrate 250 ml @ 3.75 mls/hr Q24H IV 02/24/25 08:45 02/24/25 07:30 3.75 MLS/HR Erythromycin 250 mg Q6HR PO 02/24/25 18:00 02/25/25 17:33 250 MG Amino Acids 0 ml @ 0 mls/hr PER PHARMACY IV 02/24/25 21:00 Amino Acids/ Electrolytes/ Dextrose 1,000 ml @ 42 mls/hr DAILY@2200 IV 02/24/25 22:00 02/25/25 21:31 42 MLS/HR Enteral Nutritional Formula 1,000 ml 1000 GT 02/25/25 10:00 02/25/25 15:42 1,000 ML Diagnostic Test (Pha) 1 strip Q6HR 02/25/25 18:00 02/25/25 17:33 1 STRIP Insulin Human Regular FOLLOW SLIDING SCALE Q6HR SC 02/25/25 18:00 Dextrose 50 ml UD IV 02/25/25 18:00 objective The patient is well-nourished and well-developed with no distress, he has jaundice. MENTAL STATUS: Subjective CRANIAL NERVES: Pupils are equal, round, dilated and fixed. There are no corneal reflexes, no doll's eyes phenomenon. No signs of facial weakness. There are no gagging or coughing reflexes SENSATION: No responses to pain stimuli. MOTOR: Normal tone in the upper and lower extremity. Normal muscle bulk. No fasciculations. No spontaneous movement. REFLEXES: Deep tendon reflexes are symmetrical. No pathological reflexes. CEREBELLAR/COORDINATION: Deferred GAIT/STATION: deferred. laboratory and microbiology Laboratory Tests 02/25/25 06:42 02/25/25 02:56 Test 02/25/25 02:56 Range/Units Serum Glucose 118 H 74-106 mg/dL Problem List Cardiopulmonary arrest Status post CPR Coma Hypoxic encephalopathy Metabolic encephalopathy Diffuse brain edema Brain herniation Hepatic hematoma Sepsis Septic shock Hypovolemic shock Liver failure Acute kidney failure Anemia Bleeding from the PEG site/coagulopathy He also had bleeding from the trach) Assessment/Plan Monitoring Supportive treatment Follow-up labs ICU care Respiratory support/vent management Stabilize vitals/pressor drip Oxygen IV antibiotics GI prophylaxis Surgery on case Infectious disease on case Cardiology on case Nephrology on case Pulmonolog on case More recommendation per clinical course This medical document was created using an electronic medical record system with [employer] dictation system. Although this document has been carefully reviewed, there may still be some phonetic and typographical errors. These areas are purely typographical due to imperfections of the software programs, and do not reflect any compromise in the patient's medical care. More recommendation per clinical course Prognosis guarded Dietary Evaluation Review Recommendations by RD: PPN/TPN Comments: 1) Increase TPN rate to meet at least 75% of estimated daily needs 2) Advance to renal cardiac diet when medically feasible, pending ST approval 3) Follow-up with cardiology, pulmonology, nephrology, neurology, and gastroenterology 4) Continue to monitor I&O, labs, and skin integrity Expected Outcomes/Goals: 1) nutritional support to meet at least 75% of estimated daily needs 2) labs and wound to improve 3) diet to advance 4) gradual wt loss 5) f/u in 2-3 days Plan discussed with: Other ALONZO MILLARD MD Feb 25, 2025 22:55
[2025-02-26] VITALS (111 sets, daily range): BP systolic 85–159; BP diastolic 22–115; PULSE 69–100; RESP 10; TEMP 96.6–98.6; O2SAT 95–100
[2025-02-26 03:53] LABS: Hematocrit 26.0 % (41.0-53.0); Hemoglobin 8.7 g/dL (13.5-17.5); Mean Corpuscular Hemoglobin 28.6 pg (28.0-32.0); Mean Corpuscular Volume 85.8 fL (80.0-100.0)
[2025-02-26 04:06] LABS: Alanine Aminotransferase 30 U/L (7-40); Albumin 3.6 g/dL (3.2-4.8); Anion Gap 19 (5-15); BUN/Creatinine Ratio 11.1 (10.0-20.0); Carbon Dioxide 23 mmol/L (20-31); Chloride 104 mmol/L (98-107); Glucose 90 mg/dL (74-106); Magnesium 2.2 mg/dL (1.6-2.6); Potassium 4.2 mmol/L (3.5-5.1); Total Protein 7.1 g/dL (5.7-8.2)
[2025-02-26 04:34] LABS: Alkaline Phosphatase 548 U/L (46-116); Bilirubin, Total 2.0 mg/dL (0.2-1.0); Calcium 8.1 mg/dL (8.7-10.4); Sodium 146 mmol/L (136-145)
[2025-02-26 04:35] LABS: Blood Urea Nitrogen 95 mg/dL (9-23)
[2025-02-26 05:07] LABS: Total Cells Counted 100.0 (100)
--- NOTE | 2025-02-26 05:11 | DVH ---
CHEST RADIOGRAPH Indication: TRACHEOSTOMY PLACEMENT Technique: Single frontal view of the chest was obtained Comparison: XY CHEST PORTABLE on DOS: 02/24/25, XY CHEST PORTABLE on DOS: 02/23/25, XY CHEST PORTABLE on DOS: 02/22/25 FINDINGS: Lines and Tubes: Tracheostomy tube is unchanged. There is a right central venous catheter with the t ip terminating in the cavoatrial junction. There is a right PICC with its tip terminating in the supe rior vena cava. Lungs: Left basilar airspace disease. Pleura: No effusion. No pneumothorax. Cardiomediastinal contours: Unremarkable Bones: No acute osseous abnormality. IMPRESSION: 1. Left basilar airspace disease.
--- NOTE | 2025-02-26 06:48 | DVHPN2 ---
Progress Note Date Seen: Feb 26, 2025 Has the PT tested + for MRSA If YES, has PT been informed?: No Medical Necessity Reason Pt with a Central, PICC or Fol: Yes The following are medically ne: Mora Catheter Reason for mora catheter: Nakul. Abd Surgery, Strict I&O, Total Immobilization Subjective Review of Systems Per RN, patient has had 2 large BM. Tolerating TF at10 mL/hr with borderline RV. He is schedule dto undergo HD today. CM working on D/C planning. Objective vital signs Vital Sign Date Time Temp Pulse Resp B/P (MAP) Pulse Ox O2 Delivery O2 Flow Rate FiO2 02/26/25 06:30 97.2 84 10 144/106 (119) 97 207.0 02/26/25 06:00 Mechanical Ventilator+ 40 40 02/25/25 11:25 40.0 Total Intake and Output 02/25/25 02/25/25 02/26/25 15:00 23:00 07:00 Intake Total 1302 ml 845 ml 484 ml Output Total 700 ml 700 ml Balance 1302 ml 145 ml -216 ml medications Current Medications Medications Dose Ordered Sig/Serenity Route Start Time Stop Time Status Last Admin Dose Admin Levalbuterol HCl 0.625 mg Q4HR PRN NEB 01/29/25 20:00 02/22/25 06:31 0.625 MG Ipratropium [place] 0.5 mg Q4HPRN PRN NEB 01/29/25 20:00 02/22/25 06:31 0.5 MG Sodium Chloride 10 ml QSHIFT@10,22 IV 02/04/25 22:00 02/25/25 21:31 10 ML Artificial Tears 1 drop Q4HP PRN EACHEYE 02/08/25 07:30 02/21/25 21:29 1 DROP Epoetin Gunnar-epbx 8,000 unit MWF@2100 SC 02/17/25 21:00 Hold 02/19/25 21:49 8,000 UNIT Midodrine 10 mg TID@0600,1200,1800 PO 02/21/25 12:00 02/26/25 05:11 10 MG Vasopressin 20 units/Sodium Chloride 100 ml @ 9 mls/hr Q11H7M IV 02/22/25 10:00 02/23/25 08:24 9 MLS/HR Piperacillin Sod/ Tazobactam Sod 50 ml @ 12.5 mls/hr Q8H IV 02/23/25 10:00 02/26/25 03:13 12.5 MLS/HR Pantoprazole Sodium 40 mg DAILY IV 02/24/25 10:00 02/25/25 10:22 40 MG Metoclopramide HCl 5 mg Q6HR IV 02/24/25 00:00 02/26/25 05:10 5 MG Norepinephrine Bitartrate 250 ml @ 3.75 mls/hr Q24H IV 02/24/25 08:45 02/24/25 07:30 3.75 MLS/HR Erythromycin 250 mg Q6HR PO 02/24/25 18:00 02/26/25 05:11 250 MG Amino Acids 0 ml @ 0 mls/hr PER PHARMACY IV 02/24/25 21:00 Amino Acids/ Electrolytes/ Dextrose 1,000 ml @ 42 mls/hr DAILY@2200 IV 02/24/25 22:00 02/25/25 21:31 42 MLS/HR Enteral Nutritional Formula 1,000 ml 1000 GT 02/25/25 10:00 02/25/25 15:42 1,000 ML Diagnostic Test (Pha) 1 strip Q6HR 02/25/25 18:00 02/26/25 05:11 1 STRIP Insulin Human Regular FOLLOW SLIDING SCALE Q6HR SC 02/25/25 18:00 Dextrose 50 ml UD IV 02/25/25 18:00 Examination Neuro. Unchanged. Dilated fixed pupils. No reflexes. Pt has been moving for last 1-2 weeks. Do not seem purposeful. They have been made aware that these movements are likely involuntary and prognosis remains unchanged. Family taking this as a sign of improvement and remain hopeful he will recover. CV. HR 80s. BP 140/96. Previous LSCV HD catheter site C/D/I. Right PC and PICC catheter exit sites remain C/D/I. Pulmonary: Tracheostomy in place. No active bleeding. C/D/I. Mechanical ventilator support 550/10/35%/+7. RR 10/min on vent display. GI: Soft, obese, nondistended and non tender. Incisions and dressing C/D/I. PEG in place. No further bleeding from PEG. TF at 10 mL/hr. . Mora catheter in place. Clear yellow urine in collection bag Extremities. No edema Mild orbital edema Skin: Improving jaundice. laboratory and microbiology Laboratory Tests 02/26/25 02:26 Test 02/26/25 02:26 Range/Units Serum Glucose 90 74-106 mg/dL Microbiology Date/Time Source Procedure Growth Status 02/22/25 21:21 Urine - Mora Port Urine Culture - Final Complete 02/20/25 09:30 Blood Blood Culture - Final NO GROWTH AFTER 5 DAYS OF INCUBATION. Complete 02/19/25 11:44 Trachea Gram Stain - Final Complete 02/19/25 11:44 Respiratory Culture - Final Klebsiella pneumoniae Complete 01/29/25 10:43 Sputum Gram Stain - Final Complete 01/29/25 10:43 Sputum Respiratory Culture - Final Complete Labs and/or images reviewed: Labs reviewed by me, Image(s) reviewed by me Problem List/Assessment/Plan Problems(with codes): (1) ARF (acute renal failure) (2) Ventilator dependent (3) Tonsillar hernia into foramen magnum (4) Cerebral edema (5) Cerebral edema due to anoxia (6) Cardiopulmonary arrest with successful resuscitation (7) 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 CT revealed cerebral edema and tonsillar herniation.EEG no electric activity. Cerebral perfusion study confirmed no perfusion radiographically consistent with brain which was concordant with initial clinical diagnosis and EEG. However, pt continues demonstrating brainstem function as he is breathing over vent set rate. Fluctuating HR, RR, BP and temperature. Could be secondary to autonomic dysfunction. F/U (3rd) CT brain worsening cerebral edema and tonsillar herniation. CV:Hemodynamically stable. Normal HR (with episodes of HTN) and BP. Possible autonomic dysfunction. Continues off pressors. Continue Midodrine 10 mg via PEG. May have to adjust dose/frequency. Will defer to cardiology. Cardiology assistance appreciated. Mechanical DVT prophylaxis.Pulmonary hypertension possibly unknowingly preexistent. Duplex negative for DVT Pulmonary: VDRF. S/p tracheostomy. Pending ABG. Continue vent as is, hanges dependent on ABG and clinical condition. ABG pending. Sputum Cx Klebsiella pneumoniae sensitive to Zosyn. O2 Sat 95%. Continue ventilator support. Appreciate pulmonary medicine assistance. Pulmonary medicine following. GI: Continue BID GI prophylaxis. Hepatic shock. Improving LFTs.decreasing TB. Possible TPN related cholestasis. Vital AF 10 mL/hr TF. Measure RV, hold for RV 150 mL or higher. Erythromycin as prokinetic.Continue Clinimix for now. PEG site suture will be revised. Contonued oozing. : ARF/ATN. Strict I&O. Bumex gtt. Mora to gravity. Appreciate nephrology assistance. Replace/correct electrolytes. HD per nephrology. Consider volume neutral HD. If possible. Nephrology D/C's IVF. Cliniix at 42 mL/hr. Heme/ID: WBC 15, likely inflammatory response after bleeding and transfusion. Stool for C diff. Pt with prolonged Abx Tx, watery BM and increasing WBC. Cx negative besides Kelbsiella PNA, which continues under Tx. Hgb 8.7. Expected after 1 u PRBC and oozing. UCx NGTD. Minimizing blood draw frequency to avoid worsening anemia. Repeat labs AM. Appreciate hematology assistance. Continue Zosyn for Klebsiella pneumoniae PNA. Endocrine: Tight glycemic control. Hold hydrocortisone.Observe BP. Skin: Skin care and pressure ulcer precautions. Pending Txfr to subacute rehab or LTAC Plan discussed with: Other (RN) My Orders My Orders Orders - JITENDRA ZAMORA MD Procedure Category Date Status Time Nutritional PHA 02/25/25 In Process Supplements (Vital Af 10:00 Communication Order ORDERS 02/25/25 Transmitted 07:00 Glucose Blood PHA 02/25/25 In Process (Accu-Chek Comfort 18:00 Insulin R (Human) PHA 02/25/25 In Process (Insulin R) 18:00 Dextrose 50% Syringe PHA 02/25/25 In Process 18:00 Clinimix Per Pharmacy YANET 02/25/25 In Process 22:00 Chest Portable XY 02/26/25 Resulted 04:00 Abg W/ Co-Ox RT 02/26/25 Logged 06:00 Dietary Evaluation Review Recommendations by RD: PPN/TPN Comments: 1) Increase TPN rate to meet at least 75% of estimated daily needs 2) Advance to renal cardiac diet when medically feasible, pending ST approval 3) Follow-up with cardiology, pulmonology, nephrology, neurology, and gastroenterology 4) Continue to monitor I&O, labs, and skin integrity Expected Outcomes/Goals: 1) nutritional support to meet at least 75% of estimated daily needs 2) labs and wound to improve 3) diet to advance 4) gradual wt loss 5) f/u in 2-3 days JITENDRA ZAMORA MD Feb 26, 2025 06:48
[2025-02-26 07:15] LABS: Base Excess -4.0 mmol/L (-2.0-3.0)
--- NOTE | 2025-02-26 07:24 | DVHPN2 ---
Progress Note - Dictate Date Seen: Feb 26, 2025 Has the PT tested + for MRSA If YES, has PT been informed?: No Medical Necessity Reason Pt with a Central, PICC or Fol: Yes The following are medically ne: Mora Catheter Reason for mora catheter: Nakul. Abd Surgery, Strict I&O, Total Immobilization vital signs Vital Sign Date Time Temp Pulse Resp B/P (MAP) Pulse Ox O2 Delivery O2 Flow Rate FiO2 02/26/25 06:50 84 10 149/107 (121) 98 40 02/26/25 06:45 97.2 207.0 02/26/25 06:00 Mechanical Ventilator+ 02/25/25 11:25 40.0 Total Intake and Output 02/25/25 02/25/25 02/26/25 15:00 23:00 07:00 Intake Total 1302 ml 845 ml 484 ml Output Total 700 ml 700 ml Balance 1302 ml 145 ml -216 ml medications Current Medications Medications Dose Ordered Sig/Serenity Route Start Time Stop Time Status Last Admin Dose Admin Levalbuterol HCl 0.625 mg Q4HR PRN NEB 01/29/25 20:00 02/26/25 06:50 0.625 MG Ipratropium Lanexa 0.5 mg Q4HPRN PRN NEB 01/29/25 20:00 02/26/25 06:50 0.5 MG Sodium Chloride 10 ml QSHIFT@10,22 IV 02/04/25 22:00 02/25/25 21:31 10 ML Artificial Tears 1 drop Q4HP PRN EACHEYE 02/08/25 07:30 02/21/25 21:29 1 DROP Epoetin Gunnar-epbx 8,000 unit MWF@2100 SC 02/17/25 21:00 Hold 02/19/25 21:49 8,000 UNIT Midodrine 10 mg TID@0600,1200,1800 PO 02/21/25 12:00 02/26/25 05:11 10 MG Vasopressin 20 units/Sodium Chloride 100 ml @ 9 mls/hr Q11H7M IV 02/22/25 10:00 02/23/25 08:24 9 MLS/HR Piperacillin Sod/ Tazobactam Sod 50 ml @ 12.5 mls/hr Q8H IV 02/23/25 10:00 02/26/25 03:13 12.5 MLS/HR Pantoprazole Sodium 40 mg DAILY IV 02/24/25 10:00 02/25/25 10:22 40 MG Metoclopramide HCl 5 mg Q6HR IV 02/24/25 00:00 02/26/25 05:10 5 MG Norepinephrine Bitartrate 250 ml @ 3.75 mls/hr Q24H IV 02/24/25 08:45 02/24/25 07:30 3.75 MLS/HR Erythromycin 250 mg Q6HR PO 02/24/25 18:00 02/26/25 05:11 250 MG Amino Acids 0 ml @ 0 mls/hr PER PHARMACY IV 02/24/25 21:00 Amino Acids/ Electrolytes/ Dextrose 1,000 ml @ 42 mls/hr DAILY@2200 IV 02/24/25 22:00 02/25/25 21:31 42 MLS/HR Enteral Nutritional Formula 1,000 ml 1000 GT 02/25/25 10:00 02/25/25 15:42 1,000 ML Diagnostic Test (Pha) 1 strip Q6HR 02/25/25 18:00 02/26/25 05:11 1 STRIP Insulin Human Regular FOLLOW SLIDING SCALE Q6HR SC 02/25/25 18:00 Dextrose 50 ml UD IV 02/25/25 18:00 laboratory and microbiology Laboratory Tests 02/26/25 02:26 Test 02/26/25 02:26 Range/Units Serum Glucose 90 74-106 mg/dL Assessment/Plan Still in ICU. On vent support. No gross higher brain reflexes. Pupils are dilated and fixed. Anoxic/Hypoxic Encephalopathy No reported arrhythmia overnight s/p Tracheostomy s/p PEG placement s/p PRBC transfusion (repeated) On Midodrine BP on higher side: to taper down the Midodrine halfway Prognosis: Poor Echocardiogram revealed no WMA and also revealed good EF. It also revealed increased Pulmonary Artery Pressure in favor of component of Pulmonary Hypertension. s/p Hemodialysis Received blood and platelet transfusion repeatedly Patient is a 24-year-old gentleman who was originally brought to the hospital for post arrest. Patient is seen in postop area. Patient is intubated and on multiple pressor supports. Patient is not source of history. Information was obtained by reviewing the chart, talking to patient's family/mother and communicating with staff and reviewing outside records ([facility]). Patient did have elective outpatient laparoscopic cholecystectomy in [facility] on January 28 2025. As per mother, after going home, patient was feeling very hungry and was eating and drinking a lot. He started feeling abdominal pain with nausea at night and in the morning was short of breath. As per mother: patient has stopped breathing in the morning and family called 911. As per mother, as per guidance of 911, family started CPR until EMS arrived. Patient was intubated and was brought to the hospital by EMS. Since arrival to [facility], patient was seen by surgeon who took the patient to operating room and performed laparotomy (there was hepatic hematoma). Postoperatively, the patient has remained hypotensive. There is signs for multiorgan involvement. Patient was not alert and did not complain of any chest pains. Labs revealed increased troponin. Cardiology is involved for cardiac aspects of care and abnormal troponin. First available EKG reveals sinus tachycardia with no specific ST-T changes. Telemetry had revealed sinus tachycardia throughout the stay. Patient is found to have significant anemia and is receiving blood transfusion at the time of evaluation. It is of note that at the time of evaluation patient does not have any reflexes. Intubated. Mucosa pale. Dilated and fixed pupils, Scattered rhonchi in the lungs. Cardiac: Tachycardic. No murmur. Abdomen is covered by dressing. Extremities do not reveal any edema. Dorsalis pedis is 1+ bilateral. Patient does not respond to any stimuli. Reported past medical history includes asthma and obesity. Reportedly, on January 23, 2025: Patient presented to [facility] for abdominal pain/nausea/vomiting. At that point the problems were ongoing for few weeks. In [facility], CT of the abdomen and MRCP were performed. Patient was seen by GI/surgery. Patient was found to have gallstones. Patient was discharged and later on January 28, 2025 presented back to [facility] for elective laparoscopy cholecystectomy. Patient was discharged home from [facility] after laparoscopic cholecystectomy. As per mother, patient does not have baseline history of any cardiac history. As per mother, patient was using marijuana. Mother denies any previous substance abuse besides marijuana. No specific family history is reported On January 23, 2025, labs in [facility] revealed creatinine of 0.84, hemoglobin of 15.2 and troponin (high sensitive) of <3. At that point EKG was normal WBC: 20.1 - 19.0 - 22.7 - 20.6 - 28.4 - 20.3 - 21.0 - 25.2 - 29.8 - 29.5 - 29.0 - 26.2 - 21.7 - 19.7 - 17.7 - 15.3 - 12.2 - 10.5 - 11.2 - 13.0 - 10.7 - 9.0 - 9.0 - 10.3 - 10.3 - 10.1 - 11.0 - 12.4 - 13.0 - 12.0 - 15.1 - 13.8 - 14.9 - 13.1 - 10.2 - 12.4 - 15.0 Hemoglobin: 8.3 - 6.5 - 12.1 - 11.1 - 12.1 - 9.3 - 9.2 - 9.1 - 8.4 - 9.0 - 9.5 - 8.8 - 8.4 - 8.0 - 9.7 - 9.6 - 9.8 - 9.6 - 9.7 - 9.8 - 9.1 - 8.5 - 8.8 - 8.9 - 8.7 - 8.8 - 9.7 - 9.1 - 7.9 - 8.2 - 10.1 - 9.5 - 9.7 - 9.6 - 10.0 - 7.9 - 8.0 - 8.7 Fibrinogen: 108 - 316 - 537 - 689 - >860 - 422 Creatinine: 4.02 - 3.78 - 3.90 - 3.95 - 4.34 - 5.44 - 6.05 - 6.73 - 7.31 - 7.77 - 6.64 - 7.30 - 4.91 - 5.32 - 7.40 - 5.98 - 7.66 - 6.28 - 7.71 - 8.67 - 6.87 - 5.62 - 7.59 - 8.95 - 7.51 - 9.04 - 6.23 - 7.09 - 5.33 - 6.90 - 4.95 - 6.31 - 7.51 - 6.00 - 7.40 - 8.68 - 7.46 - 8.53 Potassium: 5.6 - 4.6 - 4.8 - 3.9 - 2.9 - 2.9 - 3.6 - 3.8 - 4.9 - 5.4 - 6.0 - 5.1 - 5.3 - 6.1 - 6.0 - 4.6 - 4.4 - 4.3 - 3.5 - 3.4 - 3.7 - 4.5 - 5.7 - 5.2 - 4.0 - 3.8 - 4.1 - 4.5 - 4.9 - 4.7 - 4.6 - 4.4 - 4.6 - 3.7 - 3.5 - 4.5 - 3.7 - 5.1 - 6.0 - 4.4 - 4.9 - 4.2 AST/ALT: 676/700 - 2327/6 - 4636/2521 - -/1995 - 2500/1989 - 1780/1821 - 808/995 - 586/735 - 456/444 - 312/290 - 237/163 - 215/125 - 190/87 - 200/74 - 202/66 - 189/53 - 186/44 - 186/45 - 192/38 - 193/34 - 214/34 - 195/30 - 261/42 - 241/47 - 246/63 - 265/69 - 208/52 - 177/46 - 168/42 - 146/37 - 98/28 - 94/30 Lactic acid: 17.9 - 17.2 - 11.4 Troponin (high sensitive): 2973 - 2712 - 4364 - 7493 - 7474 TSH: 11.05 Urine Toxicology: positive for Fentanyl and Benzodiazepine Chest x-ray revealed: Lines and Tubes: Endotracheal tube projects 2.2 cm above the meghan. Right internal jugular central venous catheter tip projects over superior vena cava. Lungs: No focal consolidation. Low lung volumes. Pleura: No effusion. No pneumothorax. Cardiomediastinal contours: Unremarkable Bones: No acute osseous abnormality. IMPRESSION: Lines and tubes as above. Low lung volumes. Repeat chest x-ray revealed: IMPRESSION: Lines and tubes in satisfactory position. Mild increased pulmonary vascular congestion Repeat chest xry revealed: IMPRESSION: Lines and tubes in satisfactory position. Mild increased pulmonary vascular congestion Repeat chest xry revealed: IMPRESSION: 1. Low lung volumes with concomitant crowding of the pulmonary vasculature. 2. No evidence of focal consolidation. 3. Lines and tubes unchanged. Repeat chest xry revealed: IMPRESSION: 1. Slight interval retraction of the endotracheal tube such that the tip now projects approximately 4.7 cm above the level of the meghan. Remaining lines and tubes unchanged. 2. Otherwise no significant change compared to prior exam. Repeat chest xry revealed: IMPRESSION: 1. Slight interval advancement of endotracheal tube such that the tip now projects approximately 1.7 cm above the level of the meghan. Remaining lines and tubes unchanged. 2. Otherwise no significant change compared to prior exam. Repeat chest xry revealed: IMPRESSION: 1. Slight interval retraction of the endotracheal tube such that the tip now projects approximately 3.3 cm above the level of the meghan. Remaining lines and tubes unchanged. 2. No evidence of acute cardiopulmonary process. Repeat chest xry revealed: IMPRESSION: 1. Endotracheal tube in appropriate position. Remaining lines and tubes unchanged. 2. No evidence of acute cardiopulmonary process. Repeat chest xry revealed: IMPRESSION: 1. Small right pleural effusion. 2. Lines and tubes unchanged. Repeat chest xry revealed: IMPRESSION: 1. Small right pleural effusion. 2. Lines and tubes unchanged. Repeat chest xry revealed: IMPRESSION: 1. Small bilateral pleural effusions. 2. Lines and tubes unchanged. Repeat chest xry revealed: IMPRESSION: 1. Slight interval advancement of the endotracheal tube. Remaining lines and tubes unchanged. 2. No evidence of acute cardiopulmonary process. Repeat chest xry revealed: IMPRESSION: 1. Slight interval retraction of the endotracheal tube such that the tip now projects approximately 3.3 cm above the level of the meghan. Remaining lines and tubes unchanged. 2. No evidence of acute cardiopulmonary process. Repeat chest xry revealed: Bowel gas pattern is unremarkable. Enteric tube tip projects over the expected region of the stomach. The lung bases demonstrates bibasilar atelectasis. The lower pelvis is collimated from field of view. No acute osseous abnormality identified. Repeat chest xry revealed: Lines and Tubes: Endotracheal tube tip projects approximately 5.1 cm above the level of the meghan. Enteric catheter terminates within the gastric lumen. Right peripherally inserted central catheter tip and left subclavian central venous catheter tip project over the distal superior vena cava. Lungs: Clear Pleura: No effusion. No pneumothorax. Cardiomediastinal contours: Unremarkable Bones: Unremarkable IMPRESSION: 1. No radiographic evidence of acute cardiopulmonary abnormality. 2. Lines and tubes as above. Repeat chest xry revealed: IMPRESSION: 1. Stable position of the support lines and tubes. 2. Bibasilar airspace disease which may reflect atelectasis and/or pneumonia. Possible small bilateral pleural effusions. Repeat chest xry revealed: IMPRESSION: 1. Lines and tubes unchanged. 2. Persistently diminished lung volumes with concomitant exaggeration of the pulmonary vasculature. No evidence of acute cardiopulmonary process. Repeat chest xry revealed: IMPRESSION: 1. No acute cardiopulmonary disease. 2. Lines and tubes as above. Repeat chest xry revealed: IMPRESSION: 1. Intervally placed right IJ catheter projects in appropriate remaining support devices are stable.2. No other significant change from the previous study. Persistent low lung volumes with vascular crowding and basilar atelectasis. Repeat chest xry revealed: IMPRESSION: Heart is stable in size. There are low lung volumes with probable small left pleural effusion and bibasilar atelectasis. Support lines and tubes appear unchanged in satisfactory position. No pneumothorax. No significant interval change. Repeat chest xry revealed: IMPRESSION: Unchanged bibasilar opacities, likely atelectasis with small pleural effusions Repeat chest xry revealed: IMPRESSION: 1. No significant change from the previous study. Stable support devices. Persistent left pleural effusion and bibasilar airspace disease. Repeat chest xry revealed: IMPRESSION: 1. Interval removal of enteric catheter. Remaining Lines and tubes unchanged. 2. Otherwise, no significant change compared to prior exam allowing for differences in technique. Repeat chest xry revealed: IMPRESSION: Low lung volumes with bibasilar subsegmental atelectasis. Repeat chest xry revealed: IMPRESSION: 1. Tracheostomy ventilation. 2. Low lung volumes and bilateral lung base atelectasis versus scarring re-identified. Repeat chest xry revealed: IMPRESSION: 1. Tracheostomy ventilation. 2. Increased interstitial prominence in the left lung may be due to asymmetric CHF or interstitial pneumonia. 3. Low lung volumes and bilateral lung base opacities. Repeat chest xry revealed: Lines and Tubes: Tracheostomy tube is unchanged. There is a right central venous catheter with the tip terminating in the cavoatrial junction. There is a right PICC with its tip terminating in the superior vena cava. Lungs: Left basilar airspace disease. Pleura: No effusion. No pneumothorax. Cardiomediastinal contours: Unremarkable Bones: No acute osseous abnormality. IMPRESSION: 1. Left basilar airspace disease. KUB revealed: IMPRESSION: No evidence of ileus or small-bowel obstruction. Brain scan revealed: FINDINGS: Absence of cerebral blood flow is noted along with no brain parenchymal radiotracer uptake. Increased activity is seen in the central face likely representing vascular shunting consistent with the so-called "hot nose" sign. Findings suggest brain however clinical correlation is necessary. IMPRESSION: Findings described above, which would be consistent with brain in the appropriate clinical setting, however clinical correlation is needed. CT of the chest/abdomen/pelvis revealed: IMPRESSION: 1. Hepatic hematoma measuring up to approximately 8.6 cm in greatest dimension, as described above, with hemorrhage extending beyond the liver capsule and into the right pericolic gutter as well as into the pelvis. No definite active arterial bleeding is seen on this exam, although limited evaluation due to the timing of contrast, as this was not a CTA exam. 2. Postsurgical changes of cholecystectomy. 3. Dilated fluid-filled small bowel loops, may be due to postoperative ileus. No small bowel obstruction. 4. Small volume pneumoperitoneum, likely due to recent surgery. Small volume of gas are seen in the upper ventral abdomen from the recent surgery. 5. Dependent atelectasis in the lower lobes. Otherwise, no acute disease in the chest. 6. Endotracheal tube and enteric tube in place. 7. Atrophic right kidney incidentally noted. 8. Additional findings as described above. Critical findings Critical Result: Acute hepatic hematoma with hemorrhage extending beyond the liver capsule into the adjacent portions of the abdomen and into the pelvis as detailed above. Repeat CT of chest/abdomen/pelvis revealed: There is limited interpretation of the chest, abdomen and pelvis without administration of intravenous contrast. Endotracheal tube tip terminates just at the meghan / left main bronchus. Diffuse bilateral pulmonary airspace consolidation bilaterally significantly increased. Bilateral lower lobe lobar consolidation/ atelectasis, increased from prior. Small bilateral pleural effusions. There is extensive edema/ stranding within the upper anterior chest, neck region/supraclavicular region. There is some hyperdensity within this region which could represent components of hematoma / blood products. Heterogeneous appearance of the thyroid gland. Right IJ catheter terminating at the cavoatrial junction. Adrenal glands unremarkable in shape. Perisplenic hematoma. Interval postsurgical changes in the right upper quadrant of the abdomen. There appears to be surgicel/gaseous collection within the previous hematoma cavity, likely representing surgicel. There is a radiopaque density within the resection cavity as well which measures 6.2 x 4.6 cm.. Postoperative changes of the right anterior abdomen with soft tissue emphysema. Small amount of pneumoperitoneum Surgical drainage catheter terminating in the right upper quadrant of the abdomen Right renal parenchymal atrophy. Left kidney demonstrates perinephric edema / stranding. No left hydronephrosis. Nasogastric tube projects towards the distal stomach. Moderate distention small bowel loops. Rectal catheter. Moderate distention of the large bowel loops. Normal appendix. Abdominal aorta normal in caliber. Small amount of ascites fluid/ mesenteric edema. Bladder decompressed by Mora catheter. Soft tissue edema /anasarca. Mesenteric edema. Small amount of ascites fluid. The osseous structures are stable. IMPRESSION: Limited evaluation without contrast. Interval evacuation of the right upper quadrant hematoma. Surgicel within the resection cavity. No significant interval development of new hematoma. There are 2 radiopaque lap pads within the resection cavity . Findings reviewed with Dr. Ledesma at 11:51 a.m. on 01/30/2025 Perisplenic hematoma, similar to previous examination. Extensive bilateral pulmonary airspace consolidation, significantly increased from previous examination. Small bilateral pleural effusions. Right upper quadrant drainage catheter. Pneumoperitoneum. Soft tissue edema / anasarca. Small amount of ascites fluid/ mesenteric edema. Extensive edema within the anterior chest, neck region. Heterogeneous appearance thyroid gland. Other findings as described. CT of the head revealed: IMPRESSION: 1. No evidence of acute intracranial abnormality. Repeat CT of head revealed: FINDINGS: Cerebellar tonsilar herniation. There is sulcal and ventricular effacement. The basal cisterns are effaced. Loss of mario-white matter differentiation is noted. The skull and visible facial bones are intact. The paranasal sinuses, mastoid air cells and middle ear cavities are well-aerated. The soft tissues of the scalp are unremarkable. IMPRESSION: Diffuse cerebral edema with cerebellar tonsillar herniation. Recommend MRI brain for further evaluation. Repeat CT of head revealed: FINDINGS: There is diffuse low attenuation throughout the brain with increased effacement of the ventricles and complete sulcal effacement. There is cerebellar tonsillar herniation. The orbits are normal. There is moderate mucosal thickening within the paranasal sinuses and mastoid air cells. The soft tissues and osseous structures appear within normal limits. IMPRESSION: 1. Findings as above suggesting worsening diffuse cerebral edema in the setting of anoxic brain injury in the given clinical setting. Further clinical correlation is suggested. CT of Neck revealed: IMPRESSION: Limited evaluation without contrast. Extensive soft tissue edema within the neck extending into the anterior / upper chest and anterior mediastinum . Retropharyngeal edema. Heterogeneous appearance of the thyroid gland. Inferior cerebellar tonsillar herniation better seen on the prior CT Renal Ultrasound revealed: IMPRESSION: 1. Right kidney not visible. 2. Left kidney is enlarged. 3. No hydronephrosis. Venous duplex of lower ext revealed: IMPRESSION: NO SONOGRAPHIC EVIDENCE FOR DEEP VENOUS THROMBOSIS IN THE RIGHT LOWER EXTREMITY VEINS. Repeat (bilateral) Venous duplex of lower ext revealed: Impression: 1. No right or left femoropopliteal venous thrombosis. EEG reported: This is a remarkably abnormal EEG, this EEG seen in severe cerebral dysfunction due to metabolic/hypoxic encephalopathy or medication effects, unless this is caused by reversible etiology, this EEG is suggestive of a poor prognosis for meaningful recovery, please correlate clinically. Arrival EKG revealed sinus tachycardia with nonspecific ST-T changes Tele reveals sinus tachycardia Echocardiogram revealed: Technically limited study secondary to poor acoustic windows. Left ventricle: Left ventricle was normal-sized with normal systolic function. LVEF was 55-60%. No gross wall motion abnormality was seen. Right ventricle was mildly dilated with normal systolic function. Left atrium was normal-sized. Right atrium was mildly dilated. Aortic valve: Aortic valve was not well visualized. There was no aortic insufficiency/stenosis. There was no mitral regurgitation. There was trace tricuspid regurgitation. Pulmonary valve was not well visualized. IVC was not visualized. Right ventricular systolic pressure was assessed around 48 mm Hg. There was no pericardial effusion. Patient is a 24-year-old gentleman who presented with post arrest. It seems that the patient had hemorrhagic (intra-abdominal) presentation. Patient did have elective laparoscopic cholecystectomy the day before presentation. On the day of presentation, the patient was taken back to operating room and this time Laparotomy was done for hepatic hematoma. Patient does have multiorgan involvement. Clinically there is no brainstem reflexes. Shock liver/acute renal failure is considered. Troponin has been high. EKG did not reveal any STEMI. Presentation could be high troponin secondary to demand physiology. Patient does not have any risk factors for baseline coronary artery disease. In ideal scenario, ischemic workup/cardiac catheterization could be more revealing. Unfortunately, the patient does have acute renal failure which could be worsened by cardiac catheterization at this point. As there was no higher brain functions the suggestion is to wait and see if patient regains any higher brain function. It is of note that during cardiac catheterization, the patient may need some anticoagulation/antiplatelets. At this point patient is having significant anemia/bleeding and receiving blood transfusion and holding off of scenario forcing Anticoagulation/antiplatelets is advised. I had a long discussion with family members and Mother (repeatedly). Clinically patient has multiorgan failure. Secondary to active bleeding, we will avoid anticoagulation/antiplatelets for now. Being managed in ICU. Was taken to OR repeatedly. Still no reflexes. Echocardiogram revealed no WMA and also revealed good EF. It also revealed increased Pulmonary Artery Pressure in favor of component of Pulmonary Hypertension. Review of Echo images revealed good right ventricular systolic function. Not typical for Pulmonary Emboli. Still, PE cannot be ruled out. If PE is ruled out, then it is possible that patient had Pulmonary Hypertension from before (Baseline history of Asthma may actually reflect it). s/p PRBC transfusion (multiple). Being followed by Surgery, Nephrology, Hematology, Pulmonary, Neurology and GI. . Repeat imaging revealed cerebellar tonsillar herniation. Neurology diagnosed Hypoxic/Metabolic Encephalopathy also. EEG findings question meaningful recovery. Neurology declared patient: brain . Neurology second opinion was in favor of Anoxic/Hypoxic Encephalopathy. Repeat imaging of brain revealed worsening diffuse cerebral edema and also again revealed cerebellar tonsillar herniation. Family are contemplating Trach/PEG. Patient is seen by GI. s/p Tracheostomy. s/p PEG. s/p repeated PRBC transfusion. Was on pressure support. s/ p Arrest Intra-abdominal bleeding Hepatic hematoma Multiorgan failure, due to shock Shock liver Lactic Acidosis Acute renal failure Acute respiratory failure, on vent support Status post laparotomy Status post laparoscopic cholecystectomy Abnormal troponin, evaluated to reflect possible demand physiology History of gallstones History of asthma Obesity History of marijuana abuse Consumptive Coagulopathy / DIC Pulmonary Hypertension Cerebellar tonsillar Herniation. Encephalopathy, hypoxic/metabolic Renal failure, started on hemodialysis Brain scan questions brain Anoxic Encephalopathy s/p Tracheostomy s/p PEG Hypotension, Cardiac suggestion for management: Manage in ICU Follow-up electrolytes and kidney function tests and correct abnormalities Evaluation and management of respiratory failure as per Pulmonary Evaluation and management of Cerebellar tonsillar herniation and worsening cerebral edema as per Neurology/surgery/primary team V/Q scan could not be completed Anoxic/Hypoxic Encephalopathy Echocardiogram revealed no WMA and also revealed good EF. It also revealed increased Pulmonary Artery Pressure in favor of component of Pulmonary Hypertension. Hematology follow up (to comment on prophylaxis / treatment of Pulmonary Emboli) Surgical follow up Nephrology follow up (started on hemodialysis) and Hematology follow up Patient is seen by GI On Midodrine DVT prophylaxis as per primary team (compression stocking Vs Lovenox..) Long-term prognosis depends on the above and most importantly regaining of the higher brain function: looks very grim Ischemic workup may be considered only after regaining higher brain function or any special change in clinical presentation Further evaluation and management depends on the above and clinical course A total of 75 minutes was spent reviewing the patient record, examining the patient, making a diagnostic and therapeutic plan, discussing this plan with medical personnel, following up on diagnostic studies and following the patient for clinical stability excluding any and all procedures. At least 50% of this time was spent in direct, [id number] contact. Thank you for allowing me to participate in this patient's care. Further recommendations will depend on patient's clinical course. Please do not hesitate to contact me if you have any questions or concerns. This medical document was created using electronic medical record system with ZO[employer]I computerized dictation system. Although this document has been carefully reviewed, there may still be some phonetic and typographical errors. These areas are purely typographical due to the imperfection of the software programs, and do not reflect any compromise in the patient's medical care. Dietary Evaluation Review Recommendations by RD: PPN/TPN Comments: 1) Increase TPN rate to meet at least 75% of estimated daily needs 2) Advance to renal cardiac diet when medically feasible, pending ST approval 3) Follow-up with cardiology, pulmonology, nephrology, neurology, and gastroenterology 4) Continue to monitor I&O, labs, and skin integrity Expected Outcomes/Goals: 1) nutritional support to meet at least 75% of estimated daily needs 2) labs and wound to improve 3) diet to advance 4) gradual wt loss 5) f/u in 2-3 days Plan discussed with: Other (nurse) KATHLEEN COHEN MD Feb 26, 2025 07:24
--- NOTE | 2025-02-26 09:45 | DVHPN2 ---
Progress Note - Dictate Date Seen: Feb 26, 2025 Has the PT tested + for MRSA If YES, has PT been informed?: No Medical Necessity Reason Pt with a Central, PICC or Fol: Yes The following are medically ne: Mora Catheter Reason for mora catheter: Nakul. Abd Surgery, Strict I&O, Total Immobilization Subjective Mr. Gillis is a 24 years old gentleman with a history of asthma, gallstone, obesity, the patient was brought to the [facility] on 01/29/2025 with a chief complaint of witnessed cardiopulmonary arrest. I have seen and examined the patient, I have discussed with his nurse and other medical staff, he remained nonresponsive, no change in the neurologic physical examination he received a few stitches to the stomach yesterday, I do not see active bleeding from the PEG site Hemodialysis today UDS, 01/29/2025 1616: Fentanyl, benzo Urinalysis, 01/29/2025: WBC: 1, urine leukocyte esterase: Negative ABG, 01/29/2025: Metabolic acidosis, 01/30/25: Metabolic acidosis VWF, 02/11/25: 380 WBC/HB/PLT/MCV, 01/29/2025: 20.1/8.3/234/107.4. 01/30/2025: 28.4/12.1/127/91.2, 02/24/2025: 10.2/10/417/89.6 PT/INR/PTT, 01/29/2025: 19.6/1.98/53.8. 01/30/2025: 13.6/1.32/28.7, 02/15/2025: 11.5/1.09/32.1, 02/24/25: 13/1.25/36.7 Na 01/29/2025: 146, 152, 01/30/2025: 147 BUN/CR, 01/30/2025: 29/4.34, 02/24/2025: 70/8.68 Lactic acid, 01/29/2025: 1749, 01/30/2025: 11.4 Troponin one high sensitivity, 01/29/2025: 2273, 4364, 7474 TBI/AST/ALT/AP, 01/29/2025: 1.3/676/700/136. 9/: 2.10/4635/2521/137 02/24/2025: 4.4/146/37/827 EEG, 02/01/2025: This is a remarkably abnormal EEG, this EEG seen in severe cerebral dysfunction due to metabolic/hypoxic encephalopathy or medication effects, unless this is caused by reversible etiology, this EEG is suggestive of a poor prognosis for meaningful recovery, please correlate clinically. CT head, 01/29/2025:No evidence of acute intracranial abnormality (I see signs suggestive of diffuse brain edema) CT head 01/30/2025: Diffuse cerebral edema with cerebellar tonsillar herniation. Recommend MRI brain for further evaluation. Critical Result: above finding CT head, 02/10/2025: Findings as above suggesting worsening diffuse cerebral edema in the setting of anoxic brain injury in the given clinical setting. Further clinical correlation is suggested. CT abdomen, pelvis, 01/29/2025: 1. Hepatic hematoma measuring up to approximately 8.6 cm in greatest dimension, as described above, with hemorrhage extending beyond the liver capsule and into the right pericolic gutter as well as into the pelvis. No definite active arterial bleeding is seen on this exam, although limited evaluation due to the timing of contrast, as this was not a CTA exam. 2. Postsurgical changes of cholecystectomy. 3. Dilated fluid-filled small bowel loops, may be due to postoperative ileus. No small bowel obstruction. 4. Small volume pneumoperitoneum, likely due to recent surgery. Small volume of gas are seen in the upper ventral abdomen from the recent surgery. 5. Dependent atelectasis in the lower lobes. Otherwise, no acute disease in the chest. 6. Endotracheal tube and enteric tube in place. 7. Atrophic right kidney incidentally noted. 8. Additional findings as described above Brain imaging flow, 02/03/2025: Findings described above, which would be consistent with brain in the appropriate clinical setting, however clinical correlation is needed. vital signs Vital Sign Date Time Temp Pulse Resp B/P (MAP) Pulse Ox O2 Delivery O2 Flow Rate FiO2 02/26/25 08:51 88 10 113/80 (91) 99 40 02/26/25 06:45 97.2 207.0 02/26/25 06:00 Mechanical Ventilator+ 02/25/25 11:25 40.0 Total Intake and Output 02/25/25 02/25/2525 15:00 23:00 07:00 Intake Total 1302 ml 845 ml 484 ml Output Total 700 ml 700 ml Balance 1302 ml 145 ml -216 ml medications Current Medications Medications Dose Ordered Sig/Serenity Route Start Time Stop Time Status Last Admin Dose Admin Levalbuterol HCl 0.625 mg Q4HR PRN NEB 01/29/25 20:00 02/26/25 06:50 0.625 MG Ipratropium [place] 0.5 mg Q4HPRN PRN NEB 01/29/25 20:00 02/26/25 06:50 0.5 MG Sodium Chloride 10 ml QSHIFT@10,22 IV 02/04/25 22:00 02/25/25 21:31 10 ML Artificial Tears 1 drop Q4HP PRN EACHEYE 02/08/25 07:30 02/21/25 21:29 1 DROP Epoetin Gunnar-epbx 8,000 unit MWF@2100 SC 02/17/25 21:00 Hold 02/19/25 21:49 8,000 UNIT Vasopressin 20 units/Sodium Chloride 100 ml @ 9 mls/hr Q11H7M IV 02/22/25 10:00 02/23/25 08:24 9 MLS/HR Piperacillin Sod/ Tazobactam Sod 50 ml @ 12.5 mls/hr Q8H IV 02/23/25 10:00 02/26/25 03:13 12.5 MLS/HR Pantoprazole Sodium 40 mg DAILY IV 02/24/25 10:00 02/25/25 10:22 40 MG Metoclopramide HCl 5 mg Q6HR IV 02/24/25 00:00 02/26/25 05:10 5 MG Norepinephrine Bitartrate 250 ml @ 3.75 mls/hr Q24H IV 02/24/25 08:45 02/24/25 07:30 3.75 MLS/HR Erythromycin 250 mg Q6HR PO 02/24/25 18:00 02/26/25 05:11 250 MG Amino Acids 0 ml @ 0 mls/hr PER PHARMACY IV 02/24/25 21:00 Amino Acids/ Electrolytes/ Dextrose 1,000 ml @ 42 mls/hr DAILY@2200 IV 02/24/25 22:00 02/25/25 21:31 42 MLS/HR Enteral Nutritional Formula 1,000 ml 1000 GT 02/25/25 10:00 02/25/25 15:42 1,000 ML Diagnostic Test (Pha) 1 strip Q6HR 02/25/25 18:00 02/26/25 05:11 1 STRIP Insulin Human Regular FOLLOW SLIDING SCALE Q6HR SC 02/25/25 18:00 Dextrose 50 ml UD IV 02/25/25 18:00 Midodrine 5 mg TID@0600,1200,1800 PO 02/26/25 12:00 objective The patient is well-nourished and well-developed with no distress MENTAL STATUS: Subjective CRANIAL NERVES: Pupils are equal, round, dilated and fixed. There are no corneal reflexes, no doll's eyes phenomenon. No signs of facial weakness. There are no gagging or coughing reflexes SENSATION: No responses to pain stimuli. MOTOR: Normal tone in the upper and lower extremity. Normal muscle bulk. No fasciculations. No spontaneous movement. REFLEXES: Deep tendon reflexes are symmetrical. No pathological reflexes. CEREBELLAR/COORDINATION: Deferred GAIT/STATION: deferred. laboratory and microbiology Laboratory Tests 02/26/25 02:26 Test 02/26/25 02:26 Range/Units Serum Glucose 90 74-106 mg/dL Problem List Cardiopulmonary arrest Status post CPR Coma Hypoxic encephalopathy Metabolic encephalopathy Diffuse brain edema Brain herniation Hepatic hematoma Sepsis Septic shock Hypovolemic shock Liver failure Acute kidney failure Anemia Assessment/Plan Monitoring Supportive treatment Follow-up labs ICU care Respiratory support/vent management Stabilize vitals/pressor drip p.r.n. Oxygen IV antibiotics GI prophylaxis Surgery on case Infectious disease on case Cardiology on case Nephrology on case Pulmonolog on case More recommendation per clinical course He likely has a poor prognosis for meaningful/overall recovery This medical document was created using an electronic medical record system with [employer] dictation system. Although this document has been carefully reviewed, there may still be some phonetic and typographical errors. These areas are purely typographical due to imperfections of the software programs, and do not reflect any compromise in the patient's medical care. More recommendation per clinical course Prognosis Guarded Dietary Evaluation Review Recommendations by RD: PPN/TPN Comments: 1) Increase TPN rate to meet at least 75% of estimated daily needs 2) Advance to renal cardiac diet when medically feasible, pending ST approval 3) Follow-up with cardiology, pulmonology, nephrology, neurology, and gastroenterology 4) Continue to monitor I&O, labs, and skin integrity Expected Outcomes/Goals: 1) nutritional support to meet at least 75% of estimated daily needs 2) labs and wound to improve 3) diet to advance 4) gradual wt loss 5) f/u in 2-3 days Plan discussed with: Other ALONZO MILLARD MD Feb 26, 2025 09:45
[2025-02-26] MEDS: ALBUMIN 25% 100 ML IV SCH (11:24)
[2025-02-26] MEDS: MIDODRINE HCL 10 MG TAB PO SCH (12:02)
--- NOTE | 2025-02-26 16:06 | DVHPNRES ---
Progress Note Date Seen: Feb 26, 2025 Resident Creating Document: ARNOLD MUHAMMAD RESDIENT Has the PT tested + for MRSA If YES, has PT been informed?: No Medical Necessity Reason Pt with a Central, PICC or Fol: Yes The following are medically ne: Mora Catheter Reason for mora catheter: Nakul. Abd Surgery, Strict I&O, Total Immobilization Subjective Review of Systems Patient seen and evaluated in bedside today. Patient currently on mechanical ventilation, vent setting peep 7, tidal volume 500, FiO2 55, respiratory rate 10. Labs reviewed. Objective vital signs Vital Sign Date Time Temp Pulse Resp B/P (MAP) Pulse Ox O2 Delivery O2 Flow Rate FiO2 02/26/25 15:30 87 10 115/78 (90) 98 02/26/25 14:15 40 02/26/25 14:00 Mechanical Ventilator+ 02/26/25 13:45 96.6 96.6 02/25/25 11:25 40.0 Total Intake and Output 02/25/25 02/25/25 02/26/25 15:00 23:00 07:00 Intake Total 1302 ml 845 ml 526 ml Output Total 700 ml 700 ml Balance 1302 ml 145 ml -174 ml medications Current Medications Medications Dose Ordered Sig/Serenity Route Start Time Stop Time Status Last Admin Dose Admin Levalbuterol HCl 0.625 mg Q4HR PRN NEB 01/29/25 20:00 02/26/25 14:15 0.625 MG Ipratropium [place] 0.5 mg Q4HPRN PRN NEB 01/29/25 20:00 02/26/25 14:15 0.5 MG Sodium Chloride 10 ml QSHIFT@10,22 IV 02/04/25 22:00 02/26/25 12:00 10 ML Artificial Tears 1 drop Q4HP PRN EACHEYE 02/08/25 07:30 02/21/25 21:29 1 DROP Epoetin Fiona-epbx 8,000 unit MWF@2100 SC 02/17/25 21:00 Hold 02/19/25 21:49 8,000 UNIT Vasopressin 20 units/Sodium Chloride 100 ml @ 9 mls/hr Q11H7M IV 02/22/25 10:00 02/23/25 08:24 9 MLS/HR Piperacillin Sod/ Tazobactam Sod 50 ml @ 12.5 mls/hr Q8H IV 02/23/25 10:00 02/26/25 11:58 12.5 MLS/HR Pantoprazole Sodium 40 mg DAILY IV 02/24/25 10:00 02/26/25 11:54 40 MG Metoclopramide HCl 5 mg Q6HR IV 02/24/25 00:00 02/26/25 11:56 5 MG Norepinephrine Bitartrate 250 ml @ 3.75 mls/hr Q24H IV 02/24/25 08:45 02/24/25 07:30 3.75 MLS/HR Erythromycin 250 mg Q6HR PO 02/24/25 18:00 02/26/25 12:08 250 MG Amino Acids 0 ml @ 0 mls/hr PER PHARMACY IV 02/24/25 21:00 Amino Acids/ Electrolytes/ Dextrose 1,000 ml @ 42 mls/hr DAILY@2200 IV 02/24/25 22:00 02/25/25 21:31 42 MLS/HR Enteral Nutritional Formula 1,000 ml 1000 GT 02/25/25 10:00 02/25/25 15:42 1,000 ML Diagnostic Test (Pha) 1 strip Q6HR 02/25/25 18:00 02/26/25 11:38 1 STRIP Insulin Human Regular FOLLOW SLIDING SCALE Q6HR SC 02/25/25 18:00 Dextrose 50 ml UD IV 02/25/25 18:00 Midodrine 5 mg TID@0600,1200,1800 PO 02/26/25 12:00 02/26/25 12:02 5 MG Examination General: RASS -5, afebrile, mucosae are moist Cardiovascular: Normal S1 and S2. No murmurs, gallops or rubs Respiratory: Mechanically assisted ventilation, equal bilateral airway entree. Clear lung sounds on auscultation Abdomen: Soft, nontender, no organomegaly, with surgical wound on abdomin MSK/skin: Mobilization of limbs cannot be evaluated. Skin is dry and warm. Neurological: Orientation cannot be assessed. Pupils are dilated and nonreactive to light, absent brainstem reflexes. laboratory and microbiology Laboratory Tests 02/26/25 02:26 Test 02/26/25 02:26 Range/Units Serum Glucose 90 74-106 mg/dL Microbiology Date/Time Source Procedure Growth Status 02/22/25 21:21 Urine - Mora Port Urine Culture - Final Complete 02/20/25 09:30 Blood Blood Culture - Final NO GROWTH AFTER 5 DAYS OF INCUBATION. Complete 02/19/25 11:44 Trachea Gram Stain - Final Complete 02/19/25 11:44 Respiratory Culture - Final Klebsiella pneumoniae Complete 01/29/25 10:43 Sputum Gram Stain - Final Complete 01/29/25 10:43 Sputum Respiratory Culture - Final Complete Labs and/or images reviewed: Labs reviewed by me, Image(s) reviewed by me Problem List/Assessment/Plan Problem List/Assessment/Plan This is a 24-year-old male with no significant past medical history underwent elective laparoscopic cholecystectomy on 01/28 at [facility] (due to cholelithiasis), on 2nd day postop at home became lethargic and subsequently coded. ROSC was achieved with CPR, abdominal CT scan showed intra-abdominal hematoma, underwent emergent laparotomy and drained about 500-750 thrombosed and dark blood. NEURO: Hypoxic encephalopathy, due to cardiac arrest Anoxic brain injury * RASS Score -5 * Head CT from 01/30 shows, Cerebellar tonsilar herniation. There is sulcal and ventricular effacement. The basal cisterns are effaced. Loss of mario-white matter differentiation is noted. * Head CT on 02/11 shows worsening diffuse cerebral edema in the setting of anoxic brain injury * BRNNM-brain imaging, shows absence blood flow, findings suggest brain in the appropriate clinical setting * Plan: transfering to LTAC CARDIOVASCULAR: NSTEMI possible type 2 Status post cardiac arrest Distributive shock (vasoplegia)/neurogenic shock/septic shock vasopressin * Cardiology on the board, recommended medical management * Echo from 01/30 shows,Technically limited study secondary to poor acoustic windows, normal LV size and function, 55-60% * Plan: Levophed, midodrine 10 mg t.i.d. hydrocortisone 50 mg q.6 hours PULMONARY: Acute hypoxic respiratory failure, likely due to anoxic brain injury Cxr showed bilateral mild pulmonary vascular congestion GASTROINTESTINAL: Acute transaminitis secondary to hypovolemic shock Coagulopathy Hypoalbuminemia Status post laparoscopic cholecystectomy Status post exploratory laparotomy for hemoperitoneum Transaminitis, likely due to TPN GENITOURINARY: HARLEEN secondary to hypovolemic shock * Nephrology on the board, performed dialysis on 02/03 * IV Bumex 2 mg b.i.d. METABOLIC: Severe anion gap metabolic acidosis due to lactic acidosis Hypernatremia Grade 2 obesity, BMI 35.7 kg per m2 Hypoglycemia HEME: Severe anemia, due to bleeding * Received 3 units of PRBC, 2 units of FFP and 1 unit of cryoprecipitate * Monitor H&H and epoetin fiona INFECTIOUS DISEASE: Leucocytosis Lactic acidosis * Urine culture, blood culture and respiratory culture shows no growth * On Zosyn DIET: TPN DVT prophylax: Hold GI prophylaxis: Protonix Code status: Full code LINES/DRAINS/ACCESS: ETT: Intubated on 01/29 IV access: Lt IJ placed on 01/29/25 left subclavian, tunneled dialysis catheter placed on 02/14 Drips: On Levophed Mora catheter: Placed on 01/29 DISPOSITION: ICU status Patient's status discussed with the patient's mother at the bedside. Critical care time spent more than 47 minutes, including patient care, chart review, and updating the family. Excluding any procedures. Case discussed with Dr. Troy Plan discussed with: Patient, Other Dietary Evaluation Review Recommendations by RD: PPN/TPN Comments: 1) Increase TPN rate to meet at least 75% of estimated daily needs 2) Advance to renal cardiac diet when medically feasible, pending ST approval 3) Follow-up with cardiology, pulmonology, nephrology, neurology, and gastroenterology 4) Continue to monitor I&O, labs, and skin integrity Expected Outcomes/Goals: 1) nutritional support to meet at least 75% of estimated daily needs 2) labs and wound to improve 3) diet to advance 4) gradual wt loss 5) f/u in 2-3 days Date of Service: Feb 26, 2025 Billing Provider: JEFFREY TROY MD Common Visit Codes: [id number] CARE 30-74 MIN ARNOLD MUHAMMAD RESDIENT Feb 26, 2025 16:06 JEFFREY TROY MD Feb 27, 2025 10:43
--- NOTE | 2025-02-26 18:56 | DVHPN2 ---
Progress Note Date Seen: Feb 26, 2025 Has the PT tested + for MRSA If YES, has PT been informed?: No Medical Necessity Reason Pt with a Central, PICC or Fol: Yes The following are medically ne: Mora Catheter Reason for mora catheter: Nakul. Abd Surgery, Strict I&O, Total Immobilization Subjective Patient reports: Other (intubated) Review of Systems: Deferred Objective vital signs Vital Sign Date Time Temp Pulse Resp B/P (MAP) Pulse Ox O2 Delivery O2 Flow Rate FiO2 02/26/25 18:45 74 10 98 02/26/25 18:15 96.8 96.8 02/26/25 18:00 Mechanical Ventilator+ 40 40 02/25/25 11:25 40.0 Total Intake and Output 02/25/25 02/25/25 02/26/25 15:00 23:00 07:00 Intake Total 1302 ml 845 ml 526 ml Output Total 700 ml 700 ml Balance 1302 ml 145 ml -174 ml medications Current Medications Medications Dose Ordered Sig/Serenity Route Start Time Stop Time Status Last Admin Dose Admin Levalbuterol HCl 0.625 mg Q4HR PRN NEB 01/29/25 20:00 02/26/25 14:15 0.625 MG Ipratropium [place] 0.5 mg Q4HPRN PRN NEB 01/29/25 20:00 02/26/25 14:15 0.5 MG Sodium Chloride 10 ml QSHIFT@10,22 IV 02/04/25 22:00 02/26/25 12:00 10 ML Artificial Tears 1 drop Q4HP PRN EACHEYE 02/08/25 07:30 02/21/25 21:29 1 DROP Epoetin Gunnar-epbx 8,000 unit MWF@2100 AR 02/17/25 21:00 Hold 02/19/25 21:49 8,000 UNIT Vasopressin 20 units/Sodium Chloride 100 ml @ 9 mls/hr Q11H7M IV 02/22/25 10:00 02/23/25 08:24 9 MLS/HR Piperacillin Sod/ Tazobactam Sod 50 ml @ 12.5 mls/hr Q8H IV 02/23/25 10:00 02/26/25 18:11 12.5 MLS/HR Pantoprazole Sodium 40 mg DAILY IV 02/24/25 10:00 02/26/25 11:54 40 MG Metoclopramide HCl 5 mg Q6HR IV 02/24/25 00:00 02/26/25 18:07 5 MG Norepinephrine Bitartrate 250 ml @ 3.75 mls/hr Q24H IV 02/24/25 08:45 02/24/25 07:30 3.75 MLS/HR Erythromycin 250 mg Q6HR PO 02/24/25 18:00 02/26/25 18:10 250 MG Amino Acids 0 ml @ 0 mls/hr PER PHARMACY IV 02/24/25 21:00 Amino Acids/ Electrolytes/ Dextrose 1,000 ml @ 42 mls/hr DAILY@2200 IV 02/24/25 22:00 02/25/25 21:31 42 MLS/HR Enteral Nutritional Formula 1,000 ml 1000 GT 02/25/25 10:00 02/25/25 15:42 1,000 ML Diagnostic Test (Pha) 1 strip Q6HR 02/25/25 18:00 02/26/25 17:46 1 STRIP Insulin Human Regular FOLLOW SLIDING SCALE Q6HR SC 02/25/25 18:00 Dextrose 50 ml UD IV 02/25/25 18:00 Midodrine 5 mg TID@0600,1200,1800 PO 02/26/25 12:00 02/26/25 18:10 5 MG Examination: GENERAL:Abnormal, LUNGS:Abnormal, NEURO:Abnormal laboratory and microbiology Laboratory Tests 02/26/25 02:26 Test 02/26/25 02:26 Range/Units Serum Glucose 90 74-106 mg/dL Microbiology Date/Time Source Procedure Growth Status 02/22/25 21:21 Urine - Mora Port Urine Culture - Final Complete 02/20/25 09:30 Blood Blood Culture - Final NO GROWTH AFTER 5 DAYS OF INCUBATION. Complete 02/19/25 11:44 Trachea Gram Stain - Final Complete 02/19/25 11:44 Respiratory Culture - Final Klebsiella pneumoniae Complete 01/29/25 10:43 Sputum Gram Stain - Final Complete 01/29/25 10:43 Sputum Respiratory Culture - Final Complete Problem List/Assessment/Plan Problem List/Assessment/Plan Acute kidney injury likely ischemic ATN in the setting of shock, FeNa > 2%, nonoliguric Acute respiratory failure, intubated on ventilator Status post cardiac arrest Anoxic encephalopathy//brain herniation Hyperkalemia secondary to above Metabolic acidosis anion gap secondary to lactic acidosis secondary to reduced perfusion from hemorrhage Hemodynamic shock from bleeding Acute blood loss anemia/post op Status post laparoscopic cholecystectomy on 01/28/25 [facility] Status post ex lap, 01/29 Positive troponins NSTEMI--likely demand ischemia Shock liver Hypokalemia Recommendations Hemodialysis today dc bumex drip dc ivf Plan discussed with: Other (mom) My Orders My Orders Orders - SILVIA NOONAN MD Procedure Category Date Status Time Hemodialysis Orders ORDERS 02/26/25 Transmitted 04:00 Dietary Evaluation Review Recommendations by RD: PPN/TPN Comments: 1) Increase TPN rate to meet at least 75% of estimated daily needs 2) Advance to renal cardiac diet when medically feasible, pending ST approval 3) Follow-up with cardiology, pulmonology, nephrology, neurology, and gastroenterology 4) Continue to monitor I&O, labs, and skin integrity Expected Outcomes/Goals: 1) nutritional support to meet at least 75% of estimated daily needs 2) labs and wound to improve 3) diet to advance 4) gradual wt loss 5) f/u in 2-3 days SILVIA NOONAN MD Feb 26, 2025 18:56
[2025-02-27] VITALS (107 sets, daily range): BP systolic 71–160; BP diastolic 38–116; PULSE 62–94; RESP 10–12; TEMP 95.9–97.6; O2SAT 97–100
[2025-02-27 03:33] LABS: Hematocrit 25.3 % (41.0-53.0); Hemoglobin 8.6 g/dL (13.5-17.5); Mean Corpuscular Hemoglobin 29.0 pg (28.0-32.0); Mean Corpuscular Volume 85.6 fL (80.0-100.0)
[2025-02-27 03:37] LABS: Alanine Aminotransferase 29 U/L (7-40); Albumin 3.6 g/dL (3.2-4.8); Anion Gap 14 (5-15); BUN/Creatinine Ratio 10.9 (10.0-20.0); Carbon Dioxide 27 mmol/L (20-31); Chloride 101 mmol/L (98-107); Glucose 78 mg/dL (74-106); Magnesium 2.0 mg/dL (1.6-2.6); Sodium 142 mmol/L (136-145); Total Protein 6.5 g/dL (5.7-8.2)
[2025-02-27 03:57] LABS: Alkaline Phosphatase 397 U/L (46-116); Bilirubin, Total 1.7 mg/dL (0.2-1.0); Blood Urea Nitrogen 63 mg/dL (9-23); Calcium 8.0 mg/dL (8.7-10.4); Potassium 3.0 mmol/L (3.5-5.1)
[2025-02-27 04:46] LABS: Nucleated Red Blood Cells % 1.0 %; Total Cells Counted 100.0 (100)
[2025-02-27] MEDS: MIDODRINE HCL 10 MG TAB PO SCH (05:03)
--- NOTE | 2025-02-27 06:36 | DVHPN2 ---
Progress Note Date Seen: Feb 27, 2025 Has the PT tested + for MRSA If YES, has PT been informed?: No Medical Necessity Reason Pt with a Central, PICC or Fol: Yes The following are medically ne: Mora Catheter Reason for mora catheter: Nakul. Abd Surgery, Strict I&O, Total Immobilization Subjective Review of Systems Patient became temporarily hypotensive at approximately 230 AM. Ordered increase midodrine dose to 10 mg TID and initiate vasopressin. He was on minimal dose vasopressin from 3 to 6 AM. No longer hypotensive. He just had a very large brown, pasty bowel movement. Had a previous BM last night. Tolerating TF at 10 mL/hr. U/O 350 mL. No further bleeding Objective vital signs Vital Sign Date Time Temp Pulse Resp B/P (MAP) Pulse Ox O2 Delivery O2 Flow Rate FiO2 02/27/25 05:44 65 10 98/64 (75) 99 40 02/27/25 04:15 96.9 96.9 02/27/25 04:00 Mechanical Ventilator+ 02/25/25 11:25 40.0 Total Intake and Output 02/26/25 02/26/25 02/27/25 15:00 23:00 07:00 Intake Total 386 ml 665 ml 171 ml Output Total 240 ml Balance 386 ml 425 ml 171 ml medications Current Medications Medications Dose Ordered Sig/Serentiy Route Start Time Stop Time Status Last Admin Dose Admin Levalbuterol HCl 0.625 mg Q4HR PRN NEB 01/29/25 20:00 02/26/25 14:15 0.625 MG Ipratropium Lyman 0.5 mg Q4HPRN PRN NEB 01/29/25 20:00 02/26/25 14:15 0.5 MG Sodium Chloride 10 ml QSHIFT@10,22 IV 02/04/25 22:00 02/26/25 20:55 10 ML Artificial Tears 1 drop Q4HP PRN EACHEYE 02/08/25 07:30 02/21/25 21:29 1 DROP Epoetin Gunnar-epbx 8,000 unit MWF@2100 SC 02/17/25 21:00 02/26/25 22:30 8,000 UNIT Vasopressin 20 units/Sodium Chloride 100 ml @ 9 mls/hr Q11H7M IV 02/22/25 10:00 02/27/25 02:47 3 MLS/HR Piperacillin Sod/ Tazobactam Sod 50 ml @ 12.5 mls/hr Q8H IV 02/23/25 10:00 02/27/25 01:11 12.5 MLS/HR Pantoprazole Sodium 40 mg DAILY IV 02/24/25 10:00 02/26/25 11:54 40 MG Metoclopramide HCl 5 mg Q6HR IV 02/24/25 00:00 02/27/25 05:03 5 MG Norepinephrine Bitartrate 250 ml @ 3.75 mls/hr Q24H IV 02/24/25 08:45 02/24/25 07:30 3.75 MLS/HR Erythromycin 250 mg Q6HR PO 02/24/25 18:00 02/27/25 05:03 250 MG Amino Acids 0 ml @ 0 mls/hr PER PHARMACY IV 02/24/25 21:00 Amino Acids/ Electrolytes/ Dextrose 1,000 ml @ 42 mls/hr DAILY@2200 IV 02/24/25 22:00 02/26/25 20:56 42 MLS/HR Enteral Nutritional Formula 1,000 ml 1000 GT 02/25/25 10:00 02/26/25 21:26 1,000 ML Diagnostic Test (Pha) 1 strip Q6HR 02/25/25 18:00 02/27/25 05:04 1 STRIP Insulin Human Regular FOLLOW SLIDING SCALE Q6HR SC 02/25/25 18:00 Dextrose 50 ml UD IV 02/25/25 18:00 Midodrine 10 mg TID@0600,1200,1800 PO 02/27/25 06:00 02/27/25 05:03 10 MG Examination Neuro. Unchanged. Dilated fixed pupils. No reflexes. Pt has been moving for last 1-2 weeks. Do not seem purposeful. They have been made aware that these movements are likely involuntary and prognosis remains unchanged. Family taking this as a sign of improvement and remain hopeful he will recover. CV. HR 70s BP 110/73. Off pressors. However, at the time of this note entry BP 78/43. Previous LSCV HD catheter site C/D/I. Right PC and PICC catheter exit sites remain C/D/I. Pulmonary: Tracheostomy in place. No active bleeding. C/D/I. Mechanical ventilator support 550/10/35%/+7. RR 10/min on vent display. GI: Soft, obese, nondistended and non tender. Incisions and dressing C/D/I. PEG in place. No further bleeding from PEG. TF at 10 mL/hr. . Mora catheter in place. Clear yellow urine in collection bag Extremities. No edema Mild orbital edema Skin: Nearly resolved jaundice. laboratory and microbiology Laboratory Tests 02/27/25 02:46 Test 02/27/25 02:46 Range/Units Serum Glucose 78 74-106 mg/dL Microbiology Date/Time Source Procedure Growth Status 02/22/25 21:21 Urine - Mora Port Urine Culture - Final Complete 02/20/25 09:30 Blood Blood Culture - Final NO GROWTH AFTER 5 DAYS OF INCUBATION. 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 CT revealed cerebral edema and tonsillar herniation.EEG no electric activity. Cerebral perfusion study confirmed no perfusion radiographically consistent with brain which was concordant with initial clinical diagnosis and EEG. However, pt continues demonstrating brainstem function as he is breathing over vent set rate. Fluctuating HR, RR, BP and temperature. Could be secondary to autonomic dysfunction. F/U (3rd) CT brain worsening cerebral edema and tonsillar herniation. CV:Hemodynamically labile. Vasopressin as needed. Normal HR. Possible autonomic dysfunction. increase Midodrine to 10 mg via PEG TID. Cardiology assistance appreciated. Mechanical DVT prophylaxis.Pulmonary hypertension possibly unknowingly preexistent. Duplex negative for DVT Pulmonary: VDRF. S/p tracheostomy. Pending ABG. Continue vent as is, hanges dependent on ABG and clinical condition. ABG pending. Sputum Cx Klebsiella pneumoniae sensitive to Zosyn. O2 Sat 95%. Continue ventilator support. Appreciate pulmonary medicine assistance. Pulmonary medicine following. GI: Continue BID GI prophylaxis. Hepatic shock. Improving LFTs. Decreasing TB. Possible TPN related cholestasis. Increasse Vital AF rate to 20 mL/hr TF. Measure RV, hold for RV 150 mL or higher. Erythromycin as prokinetic.Continue Clinimix for now. PEG site suture will be revised. : ARF/ATN. Strict I&O. Bumex gtt. Mora to gravity. Appreciate nephrology assistance. Replace/correct electrolytes. HD per nephrology. Consider volume neutral HD. If possible. Nephrology D/C's IVF. Cliniix at 42 mL/hr. Heme/ID: WBC 14, likely inflammatory response after bleeding and transfusion and/or effects of hydrocortisone. D/C'd 2 days ago. All Cx negative besides Rspiratory culture with Kelbsiella PNA, which continues under Tx. Hgb 8.6. UCx NGTD. Minimizing blood draw frequency to avoid worsening anemia. Repeat labs AM. Appreciate hematology assistance. Continue Zosyn for Klebsiella pneumoniae PNA. Endocrine: Tight glycemic control. Hold hydrocortisone.Observe BP. Check random cortisol, TFT. Skin: Skin care and pressure ulcer precautions. Pending Txfr to subacute rehab or LTAC Plan discussed with: Other (RN) My Orders My Orders Orders - JITENDRA ZAMORA MD Procedure Category Date Status Time Clinimix Per Pharmacy YANET 02/26/25 In Process 09:17 Discharge DISCHARGE 02/27/25 Transmitted 09:00 Midodrine Tablet PHA 02/27/25 In Process (Proamatine Tablet) 06:00 Abg W/ Co-Ox RT 02/27/25 Logged 05:16 Thyroid Stimulating LAB 02/27/25 Transmitted Hormone 06:13 Free T3 LAB 02/27/25 Transmitted 06:13 T3 Total LAB 02/27/25 Transmitted 06:13 Free T4 (Free LAB 02/27/25 Transmitted Thyroxine) 06:13 Thyroxine (T4) LAB 02/27/25 Transmitted 06:13 Cortisol Am LAB 02/27/25 Transmitted 06:13 Dietary Evaluation Review Recommendations by RD: PPN/TPN Comments: 1) Increase TPN rate to meet at least 75% of estimated daily needs 2) Advance to renal cardiac diet when medically feasible, pending ST approval 3) Follow-up with cardiology, pulmonology, nephrology, neurology, and gastroenterology 4) Continue to monitor I&O, labs, and skin integrity Expected Outcomes/Goals: 1) nutritional support to meet at least 75% of estimated daily needs 2) labs and wound to improve 3) diet to advance 4) gradual wt loss 5) f/u in 2-3 days JITENDRA ZAMORA MD Feb 27, 2025 06:36
[2025-02-27 07:06] LABS: Base Excess 0.7 mmol/L (-2.0-3.0)
--- NOTE | 2025-02-27 08:48 | DVHDS ---
DATE OF DISCHARGE: 02/26/2025 ADMITTING PHYSICIAN: Robbin Ledesma MD ADMITTING DIAGNOSES: Hemorrhagic shock from postoperative bleeding and cardiac arrest. DISCHARGE DIAGNOSES: Hemorrhagic shock, cardiac arrest, anoxic brain injury, tonsillar herniation, ventilator-dependent respiratory failure, acute renal failure, on hemodialysis. BRIEF HISTORY AND HOSPITAL COURSE: The patient is a 24-year-old male who underwent a laparoscopic cholecystectomy on 01/28/2025. The patient was discharged home in stable condition. According to the patient's mother, at 10:00 p.m., the patient was complaining of leg pain and had some shortness of breath with associated nausea and vomiting. She attributed to the anesthesia. She did not contact my office or call EMS at that time. At 8:30 in the morning, the patient's mother called concerning as the patient was somnolent and complaining of shortness of breath. During the phone call, reportedly the patient collapsed, she hung up and called 911. 911 instructed to perform CPR with verbal instructions. The patient's mother admitted that she did not know how to do CPR. Unfortunately, the patient was also on his bed and he is obese. The patient's mother stated that it took approximately 5-6 minutes for EMS to arrive. Immediately, the EMS personnel placed the patient on the floor and worked on him for approximately an hour before gaining a pulse. He was transferred to the nearest Emergency Department, which was this hospital. Upon arrival, the patient reportedly arrested again, with return of vital signs approximately 10 minutes later. The patient underwent workup with CT scan of the brain as he was found to have dilated fixed pupils as well as a CT scan of the abdomen and pelvis. The CT scan of the brain was reported as normal. The abdomen and pelvis revealed hemoperitoneum. The patient was immediately taken to the operating room for a laparotomy. Evacuation of blood and clot was identified without any significant source of bleeding. Given the lack of active bleeding source, a drain was placed and he was transported to the recovery room, remaining intubated with mechanical ventilatory support. He was immediately resuscitated and coagulopathy was corrected. The patient had significant acute hepatic insufficiency/failure secondary to shock with associated coagulopathy, an dacute renal failure. Admission hemoglobin was 8.3. Postoperatively, it was 6.5. He was transfused packed red blood cells as well as FFP in order to correct his coagulopathy. Consultations were placed for Cardiology, Pulmonary Medicine, Hematology, Internal Medicine, Neurology, Nephrology and GI to assist in the various critical conditions that the patient had at the time. During the early hours of the following day, the patient had abdominal distention per RN and the drain was collecting sanguineous fluid. The patient was immediately taken to the operating room. Again, no obvious source of active bleeding was identified. Therefore, the abdominal cavity was packed and he was then transferred back to the intensive care unit. The patient's nurse stated that he had significant swelling of the face and neck. A followup CT scan was obtained, demonstrating anoxic brain injury with tonsillar herniation. Upon discussion with the neurologist, the neurologist believes that the patient already manifested these changes on the admission CT scan of the brain. Approximately 48 hours later, the patient was taken back to the operating room for removal of the packing. Again, upon removing the packing, there was no evidence of obvious source of bleeding. Given the acute renal failure, the patient required hemodialysis. Therefore, a HD catheter had been placed. The patient had delayed episodes of bleeding from all lines placed, alternating from different sites at a time. They were all spontaneous, delayed and self- limited. PE workup could not be completed as the patient was unstable and they could not accept ventilator dependent patients for VQ scan, and the patient's mother did not want to proceed with CTA of the chest given the risk of potential further nephrotoxicity. An echocardiogram obtained revealed pulmonary hypertension thought to be preexisting. There was no heart strain to suggest pulmonary emboli. In addition, the patient has excellent oxigen saturation on blood gas and pulse oxymetry throughout the hospitalization. Venous duplex ruled out the possibility of DVT. His hospital course has been protracted given his multiple acute conditions. Ultimately, the liver demonstrated improvement. Unfortunately, kidneys are still not recovering, requiring hemodialysis for uremia as well as occasional episodes of hyperkalemia. The patient is currently off vasopressor support. He underwent a tracheostomy and remains ventilator-dependent. He also underwent a laparoscopic assisted percutaneous endoscopic gastrostomy. He also developed delayed spontaneous bleeding from the tracheostomy 4 days after placement, which was self limited. He developed bleeding from the PEG 2 days after placement, which required suture ligation. The patient's coagulopathy has corrected and he was not thrombocytopenic. The patient's family members have been made aware that his prognosis is extremely poor with regards to meaningful recovery. However, the patient's family have strong lutheran beliefs and nicko. They believe that the patient will recover in time. The patient has been accepted at [facility].He will be transferred if remains stable and once a bed is available. Robbin Ledesma MD WBRo/CASSIE/ISAAC/DALIA TID: [id number] RECEIPT: [id number] MTD
[2025-02-27] MEDS: VASOPRESSIN 20 UNITS in SODIUM CHL 0.9% 99 ML IV SCH (09:00)
--- NOTE | 2025-02-27 09:01 | DVHPN2 ---
Progress Note - Dictate Date Seen: Feb 27, 2025 Has the PT tested + for MRSA If YES, has PT been informed?: No Medical Necessity Reason Pt with a Central, PICC or Fol: Yes The following are medically ne: Mora Catheter Reason for mora catheter: Nakul. Abd Surgery, Strict I&O, Total Immobilization vital signs Vital Sign Date Time Temp Pulse Resp B/P (MAP) Pulse Ox O2 Delivery O2 Flow Rate FiO2 02/27/25 08:03 62 10 97/61 (73) 99 40 02/27/25 06:45 95.9 204.6 02/27/25 06:00 Mechanical Ventilator+ 02/25/25 11:25 40.0 Total Intake and Output 02/26/25 02/26/25 02/27/25 15:00 23:00 07:00 Intake Total 386 ml 665 ml 533 ml Output Total 240 ml 350 ml Balance 386 ml 425 ml 183 ml medications Current Medications Medications Dose Ordered Sig/Serenity Route Start Time Stop Time Status Last Admin Dose Admin Levalbuterol HCl 0.625 mg Q4HR PRN NEB 01/29/25 20:00 02/26/25 14:15 0.625 MG Ipratropium [place] 0.5 mg Q4HPRN PRN NEB 01/29/25 20:00 02/26/25 14:15 0.5 MG Sodium Chloride 10 ml QSHIFT@10,22 IV 02/04/25 22:00 02/26/25 20:55 10 ML Artificial Tears 1 drop Q4HP PRN EACHEYE 02/08/25 07:30 02/21/25 21:29 1 DROP Epoetin Gunnar-epbx 8,000 unit MWF@2100 SC 02/17/25 21:00 02/26/25 22:30 8,000 UNIT Piperacillin Sod/ Tazobactam Sod 50 ml @ 12.5 mls/hr Q8H IV 02/23/25 10:00 02/27/25 01:11 12.5 MLS/HR Pantoprazole Sodium 40 mg DAILY IV 02/24/25 10:00 02/26/25 11:54 40 MG Metoclopramide HCl 5 mg Q6HR IV 02/24/25 00:00 02/27/25 05:03 5 MG Norepinephrine Bitartrate 250 ml @ 3.75 mls/hr Q24H IV 02/24/25 08:45 02/24/25 07:30 3.75 MLS/HR Erythromycin 250 mg Q6HR PO 02/24/25 18:00 02/27/25 05:03 250 MG Amino Acids 0 ml @ 0 mls/hr PER PHARMACY IV 02/24/25 21:00 Amino Acids/ Electrolytes/ Dextrose 1,000 ml @ 42 mls/hr DAILY@2200 IV 02/24/25 22:00 02/26/25 20:56 42 MLS/HR Enteral Nutritional Formula 1,000 ml 1000 GT 02/25/25 10:00 02/26/25 21:26 1,000 ML Diagnostic Test (Pha) 1 strip Q6HR 02/25/25 18:00 02/27/25 05:04 1 STRIP Insulin Human Regular FOLLOW SLIDING SCALE Q6HR SC 02/25/25 18:00 Dextrose 50 ml UD IV 02/25/25 18:00 Midodrine 10 mg TID@0600,1200,1800 PO 02/27/25 06:00 02/27/25 05:03 10 MG Vasopressin 20 units/Sodium Chloride 100 ml @ 3 mls/hr Q24H IV 02/27/25 09:00 UNV laboratory and microbiology Laboratory Tests 02/27/25 02:46 Test 02/27/25 02:46 Range/Units Serum Glucose 78 74-106 mg/dL Assessment/Plan Still in ICU. On vent support. No gross higher brain reflexes. Pupils are dilated and fixed. Anoxic/Hypoxic Encephalopathy No reported arrhythmia overnight s/p Tracheostomy s/p PEG placement s/p PRBC transfusion (repeated) On Midodrine On low dose vasopressin [facility] Prognosis: Poor Echocardiogram revealed no WMA and also revealed good EF. It also revealed increased Pulmonary Artery Pressure in favor of component of Pulmonary Hypertension. s/p Hemodialysis Received blood and platelet transfusion repeatedly Patient is a 24-year-old gentleman who was originally brought to the hospital for post arrest. Patient is seen in postop area. Patient is intubated and on multiple pressor supports. Patient is not source of history. Information was obtained by reviewing the chart, talking to patient's family/mother and communicating with staff and reviewing outside records ([facility]). Patient did have elective outpatient laparoscopic cholecystectomy in [facility] on January 28 2025. As per mother, after going home, patient was feeling very hungry and was eating and drinking a lot. He started feeling abdominal pain with nausea at night and in the morning was short of breath. As per mother: patient has stopped breathing in the morning and family called 911. As per mother, as per guidance of 911, family started CPR until EMS arrived. Patient was intubated and was brought to the hospital by EMS. Since arrival to [facility], patient was seen by surgeon who took the patient to operating room and performed laparotomy (there was hepatic hematoma). Postoperatively, the patient has remained hypotensive. There is signs for multiorgan involvement. Patient was not alert and did not complain of any chest pains. Labs revealed increased troponin. Cardiology is involved for cardiac aspects of care and abnormal troponin. First available EKG reveals sinus tachycardia with no specific ST-T changes. Telemetry had revealed sinus tachycardia throughout the stay. Patient is found to have significant anemia and is receiving blood transfusion at the time of evaluation. It is of note that at the time of evaluation patient does not have any reflexes. Intubated. Mucosa pale. Dilated and fixed pupils, Scattered rhonchi in the lungs. Cardiac: Tachycardic. No murmur. Abdomen is covered by dressing. Extremities do not reveal any edema. Dorsalis pedis is 1+ bilateral. Patient does not respond to any stimuli. Reported past medical history includes asthma and obesity. Reportedly, on January 23, 2025: Patient presented to [facility] for abdominal pain/nausea/vomiting. At that point the problems were ongoing for few weeks. In [facility], CT of the abdomen and MRCP were performed. Patient was seen by GI/surgery. Patient was found to have gallstones. Patient was discharged and later on January 28, 2025 presented back to [facility] for elective laparoscopy cholecystectomy. Patient was discharged home from [facility] after laparoscopic cholecystectomy. As per mother, patient does not have baseline history of any cardiac history. As per mother, patient was using marijuana. Mother denies any previous substance abuse besides marijuana. No specific family history is reported On January 23, 2025, labs in [facility] revealed creatinine of 0.84, hemoglobin of 15.2 and troponin (high sensitive) of <3. At that point EKG was normal WBC: 20.1 - 19.0 - 22.7 - 20.6 - 28.4 - 20.3 - 21.0 - 25.2 - 29.8 - 29.5 - 29.0 - 26.2 - 21.7 - 19.7 - 17.7 - 15.3 - 12.2 - 10.5 - 11.2 - 13.0 - 10.7 - 9.0 - 9.0 - 10.3 - 10.3 - 10.1 - 11.0 - 12.4 - 13.0 - 12.0 - 15.1 - 13.8 - 14.9 - 13.1 - 10.2 - 12.4 - 15.0 - 14.3 Hemoglobin: 8.3 - 6.5 - 12.1 - 11.1 - 12.1 - 9.3 - 9.2 - 9.1 - 8.4 - 9.0 - 9.5 - 8.8 - 8.4 - 8.0 - 9.7 - 9.6 - 9.8 - 9.6 - 9.7 - 9.8 - 9.1 - 8.5 - 8.8 - 8.9 - 8.7 - 8.8 - 9.7 - 9.1 - 7.9 - 8.2 - 10.1 - 9.5 - 9.7 - 9.6 - 10.0 - 7.9 - 8.0 - 8.7 - 8.6 Fibrinogen: 108 - 316 - 537 - 689 - >860 - 422 Creatinine: 4.02 - 3.78 - 3.90 - 3.95 - 4.34 - 5.44 - 6.05 - 6.73 - 7.31 - 7.77 - 6.64 - 7.30 - 4.91 - 5.32 - 7.40 - 5.98 - 7.66 - 6.28 - 7.71 - 8.67 - 6.87 - 5.62 - 7.59 - 8.95 - 7.51 - 9.04 - 6.23 - 7.09 - 5.33 - 6.90 - 4.95 - 6.31 - 7.51 - 6.00 - 7.40 - 8.68 - 7.46 - 8.53 - 5.78 Potassium: 5.6 - 4.6 - 4.8 - 3.9 - 2.9 - 2.9 - 3.6 - 3.8 - 4.9 - 5.4 - 6.0 - 5.1 - 5.3 - 6.1 - 6.0 - 4.6 - 4.4 - 4.3 - 3.5 - 3.4 - 3.7 - 4.5 - 5.7 - 5.2 - 4.0 - 3.8 - 4.1 - 4.5 - 4.9 - 4.7 - 4.6 - 4.4 - 4.6 - 3.7 - 3.5 - 4.5 - 3.7 - 5.1 - 6.0 - 4.4 - 4.9 - 4.2 - 3.0 AST/ALT: 676/700 - 2327/6 - 4636/2521 - -/1995 - 2500/1989 - 1780/182 - 808/995 - 586/735 - 456/444 - 312/290 - 237/163 - 215/125 - 190/87 - 200/74 - 202/66 - 189/53 - 186/44 - 186/45 - 192/38 - 193/34 - 214/34 - 195/30 - 261/42 - 241/47 - 246/63 - 265/69 - 208/52 - 177/46 - 168/42 - 146/37 - 98/28 - 94/30 - 104/29 Lactic acid: 17.9 - 17.2 - 11.4 Troponin (high sensitive): 2973 - 2712 - 4364 - 7493 - 7474 TSH: 11.05 Urine Toxicology: positive for Fentanyl and Benzodiazepine Chest x-ray revealed: Lines and Tubes: Endotracheal tube projects 2.2 cm above the meghan. Right internal jugular central venous catheter tip projects over superior vena cava. Lungs: No focal consolidation. Low lung volumes. Pleura: No effusion. No pneumothorax. Cardiomediastinal contours: Unremarkable Bones: No acute osseous abnormality. IMPRESSION: Lines and tubes as above. Low lung volumes. Repeat chest x-ray revealed: IMPRESSION: Lines and tubes in satisfactory position. Mild increased pulmonary vascular congestion Repeat chest xry revealed: IMPRESSION: Lines and tubes in satisfactory position. Mild increased pulmonary vascular congestion Repeat chest xry revealed: IMPRESSION: 1. Low lung volumes with concomitant crowding of the pulmonary vasculature. 2. No evidence of focal consolidation. 3. Lines and tubes unchanged. Repeat chest xry revealed: IMPRESSION: 1. Slight interval retraction of the endotracheal tube such that the tip now projects approximately 4.7 cm above the level of the meghan. Remaining lines and tubes unchanged. 2. Otherwise no significant change compared to prior exam. Repeat chest xry revealed: IMPRESSION: 1. Slight interval advancement of endotracheal tube such that the tip now projects approximately 1.7 cm above the level of the meghan. Remaining lines and tubes unchanged. 2. Otherwise no significant change compared to prior exam. Repeat chest xry revealed: IMPRESSION: 1. Slight interval retraction of the endotracheal tube such that the tip now projects approximately 3.3 cm above the level of the meghan. Remaining lines and tubes unchanged. 2. No evidence of acute cardiopulmonary process. Repeat chest xry revealed: IMPRESSION: 1. Endotracheal tube in appropriate position. Remaining lines and tubes unchanged. 2. No evidence of acute cardiopulmonary process. Repeat chest xry revealed: IMPRESSION: 1. Small right pleural effusion. 2. Lines and tubes unchanged. Repeat chest xry revealed: IMPRESSION: 1. Small right pleural effusion. 2. Lines and tubes unchanged. Repeat chest xry revealed: IMPRESSION: 1. Small bilateral pleural effusions. 2. Lines and tubes unchanged. Repeat chest xry revealed: IMPRESSION: 1. Slight interval advancement of the endotracheal tube. Remaining lines and tubes unchanged. 2. No evidence of acute cardiopulmonary process. Repeat chest xry revealed: IMPRESSION: 1. Slight interval retraction of the endotracheal tube such that the tip now projects approximately 3.3 cm above the level of the meghan. Remaining lines and tubes unchanged. 2. No evidence of acute cardiopulmonary process. Repeat chest xry revealed: Bowel gas pattern is unremarkable. Enteric tube tip projects over the expected region of the stomach. The lung bases demonstrates bibasilar atelectasis. The lower pelvis is collimated from field of view. No acute osseous abnormality identified. Repeat chest xry revealed: Lines and Tubes: Endotracheal tube tip projects approximately 5.1 cm above the level of the meghan. Enteric catheter terminates within the gastric lumen. Right peripherally inserted central catheter tip and left subclavian central venous catheter tip project over the distal superior vena cava. Lungs: Clear Pleura: No effusion. No pneumothorax. Cardiomediastinal contours: Unremarkable Bones: Unremarkable IMPRESSION: 1. No radiographic evidence of acute cardiopulmonary abnormality. 2. Lines and tubes as above. Repeat chest xry revealed: IMPRESSION: 1. Stable position of the support lines and tubes. 2. Bibasilar airspace disease which may reflect atelectasis and/or pneumonia. Possible small bilateral pleural effusions. Repeat chest xry revealed: IMPRESSION: 1. Lines and tubes unchanged. 2. Persistently diminished lung volumes with concomitant exaggeration of the pulmonary vasculature. No evidence of acute cardiopulmonary process. Repeat chest xry revealed: IMPRESSION: 1. No acute cardiopulmonary disease. 2. Lines and tubes as above. Repeat chest xry revealed: IMPRESSION: 1. Intervally placed right IJ catheter projects in appropriate remaining support devices are stable.2. No other significant change from the previous study. Persistent low lung volumes with vascular crowding and basilar atelectasis. Repeat chest xry revealed: IMPRESSION: Heart is stable in size. There are low lung volumes with probable small left pleural effusion and bibasilar atelectasis. Support lines and tubes appear unchanged in satisfactory position. No pneumothorax. No significant interval change. Repeat chest xry revealed: IMPRESSION: Unchanged bibasilar opacities, likely atelectasis with small pleural effusions Repeat chest xry revealed: IMPRESSION: 1. No significant change from the previous study. Stable support devices. Persistent left pleural effusion and bibasilar airspace disease. Repeat chest xry revealed: IMPRESSION: 1. Interval removal of enteric catheter. Remaining Lines and tubes unchanged. 2. Otherwise, no significant change compared to prior exam allowing for differences in technique. Repeat chest xry revealed: IMPRESSION: Low lung volumes with bibasilar subsegmental atelectasis. Repeat chest xry revealed: IMPRESSION: 1. Tracheostomy ventilation. 2. Low lung volumes and bilateral lung base atelectasis versus scarring re-identified. Repeat chest xry revealed: IMPRESSION: 1. Tracheostomy ventilation. 2. Increased interstitial prominence in the left lung may be due to asymmetric CHF or interstitial pneumonia. 3. Low lung volumes and bilateral lung base opacities. Repeat chest xry revealed: Lines and Tubes: Tracheostomy tube is unchanged. There is a right central venous catheter with the tip terminating in the cavoatrial junction. There is a right PICC with its tip terminating in the superior vena cava. Lungs: Left basilar airspace disease. Pleura: No effusion. No pneumothorax. Cardiomediastinal contours: Unremarkable Bones: No acute osseous abnormality. IMPRESSION: 1. Left basilar airspace disease. KUB revealed: IMPRESSION: No evidence of ileus or small-bowel obstruction. Brain scan revealed: FINDINGS: Absence of cerebral blood flow is noted along with no brain parenchymal radiotracer uptake. Increased activity is seen in the central face likely representing vascular shunting consistent with the so-called "hot nose" sign. Findings suggest brain however clinical correlation is necessary. IMPRESSION: Findings described above, which would be consistent with brain in the appropriate clinical setting, however clinical correlation is needed. CT of the chest/abdomen/pelvis revealed: IMPRESSION: 1. Hepatic hematoma measuring up to approximately 8.6 cm in greatest dimension, as described above, with hemorrhage extending beyond the liver capsule and into the right pericolic gutter as well as into the pelvis. No definite active arterial bleeding is seen on this exam, although limited evaluation due to the timing of contrast, as this was not a CTA exam. 2. Postsurgical changes of cholecystectomy. 3. Dilated fluid-filled small bowel loops, may be due to postoperative ileus. No small bowel obstruction. 4. Small volume pneumoperitoneum, likely due to recent surgery. Small volume of gas are seen in the upper ventral abdomen from the recent surgery. 5. Dependent atelectasis in the lower lobes. Otherwise, no acute disease in the chest. 6. Endotracheal tube and enteric tube in place. 7. Atrophic right kidney incidentally noted. 8. Additional findings as described above. Critical findings Critical Result: Acute hepatic hematoma with hemorrhage extending beyond the liver capsule into the adjacent portions of the abdomen and into the pelvis as detailed above. Repeat CT of chest/abdomen/pelvis revealed: There is limited interpretation of the chest, abdomen and pelvis without administration of intravenous contrast. Endotracheal tube tip terminates just at the meghan / left main bronchus. Diffuse bilateral pulmonary airspace consolidation bilaterally significantly increased. Bilateral lower lobe lobar consolidation/ atelectasis, increased from prior. Small bilateral pleural effusions. There is extensive edema/ stranding within the upper anterior chest, neck region/supraclavicular region. There is some hyperdensity within this region which could represent components of hematoma / blood products. Heterogeneous appearance of the thyroid gland. Right IJ catheter terminating at the cavoatrial junction. Adrenal glands unremarkable in shape. Perisplenic hematoma. Interval postsurgical changes in the right upper quadrant of the abdomen. There appears to be surgicel/gaseous collection within the previous hematoma cavity, likely representing surgicel. There is a radiopaque density within the resection cavity as well which measures 6.2 x 4.6 cm.. Postoperative changes of the right anterior abdomen with soft tissue emphysema. Small amount of pneumoperitoneum Surgical drainage catheter terminating in the right upper quadrant of the abdomen Right renal parenchymal atrophy. Left kidney demonstrates perinephric edema / stranding. No left hydronephrosis. Nasogastric tube projects towards the distal stomach. Moderate distention small bowel loops. Rectal catheter. Moderate distention of the large bowel loops. Normal appendix. Abdominal aorta normal in caliber. Small amount of ascites fluid/ mesenteric edema. Bladder decompressed by Mora catheter. Soft tissue edema /anasarca. Mesenteric edema. Small amount of ascites fluid. The osseous structures are stable. IMPRESSION: Limited evaluation without contrast. Interval evacuation of the right upper quadrant hematoma. Surgicel within the resection cavity. No significant interval development of new hematoma. There are 2 radiopaque lap pads within the resection cavity . Findings reviewed with Dr. Ledesma at 11:51 a.m. on 01/30/2025 Perisplenic hematoma, similar to previous examination. Extensive bilateral pulmonary airspace consolidation, significantly increased from previous examination. Small bilateral pleural effusions. Right upper quadrant drainage catheter. Pneumoperitoneum. Soft tissue edema / anasarca. Small amount of ascites fluid/ mesenteric edema. Extensive edema within the anterior chest, neck region. Heterogeneous appearance thyroid gland. Other findings as described. CT of the head revealed: IMPRESSION: 1. No evidence of acute intracranial abnormality. Repeat CT of head revealed: FINDINGS: Cerebellar tonsilar herniation. There is sulcal and ventricular effacement. The basal cisterns are effaced. Loss of mario-white matter differentiation is noted. The skull and visible facial bones are intact. The paranasal sinuses, mastoid air cells and middle ear cavities are well-aerated. The soft tissues of the scalp are unremarkable. IMPRESSION: Diffuse cerebral edema with cerebellar tonsillar herniation. Recommend MRI brain for further evaluation. Repeat CT of head revealed: FINDINGS: There is diffuse low attenuation throughout the brain with increased effacement of the ventricles and complete sulcal effacement. There is cerebellar tonsillar herniation. The orbits are normal. There is moderate mucosal thickening within the paranasal sinuses and mastoid air cells. The soft tissues and osseous structures appear within normal limits. IMPRESSION: 1. Findings as above suggesting worsening diffuse cerebral edema in the setting of anoxic brain injury in the given clinical setting. Further clinical correlation is suggested. CT of Neck revealed: IMPRESSION: Limited evaluation without contrast. Extensive soft tissue edema within the neck extending into the anterior / upper chest and anterior mediastinum . Retropharyngeal edema. Heterogeneous appearance of the thyroid gland. Inferior cerebellar tonsillar herniation better seen on the prior CT Renal Ultrasound revealed: IMPRESSION: 1. Right kidney not visible. 2. Left kidney is enlarged. 3. No hydronephrosis. Venous duplex of lower ext revealed: IMPRESSION: NO SONOGRAPHIC EVIDENCE FOR DEEP VENOUS THROMBOSIS IN THE RIGHT LOWER EXTREMITY VEINS. Repeat (bilateral) Venous duplex of lower ext revealed: Impression: 1. No right or left femoropopliteal venous thrombosis. EEG reported: This is a remarkably abnormal EEG, this EEG seen in severe cerebral dysfunction due to metabolic/hypoxic encephalopathy or medication effects, unless this is caused by reversible etiology, this EEG is suggestive of a poor prognosis for meaningful recovery, please correlate clinically. Arrival EKG revealed sinus tachycardia with nonspecific ST-T changes Tele reveals sinus tachycardia Echocardiogram revealed: Technically limited study secondary to poor acoustic windows. Left ventricle: Left ventricle was normal-sized with normal systolic function. LVEF was 55-60%. No gross wall motion abnormality was seen. Right ventricle was mildly dilated with normal systolic function. Left atrium was normal-sized. Right atrium was mildly dilated. Aortic valve: Aortic valve was not well visualized. There was no aortic insufficiency/stenosis. There was no mitral regurgitation. There was trace tricuspid regurgitation. Pulmonary valve was not well visualized. IVC was not visualized. Right ventricular systolic pressure was assessed around 48 mm Hg. There was no pericardial effusion. Patient is a 24-year-old gentleman who presented with post arrest. It seems that the patient had hemorrhagic (intra-abdominal) presentation. Patient did have elective laparoscopic cholecystectomy the day before presentation. On the day of presentation, the patient was taken back to operating room and this time Laparotomy was done for hepatic hematoma. Patient does have multiorgan involvement. Clinically there is no brainstem reflexes. Shock liver/acute renal failure is considered. Troponin has been high. EKG did not reveal any STEMI. Presentation could be high troponin secondary to demand physiology. Patient does not have any risk factors for baseline coronary artery disease. In ideal scenario, ischemic workup/cardiac catheterization could be more revealing. Unfortunately, the patient does have acute renal failure which could be worsened by cardiac catheterization at this point. As there was no higher brain functions the suggestion is to wait and see if patient regains any higher brain function. It is of note that during cardiac catheterization, the patient may need some anticoagulation/antiplatelets. At this point patient is having significant anemia/bleeding and receiving blood transfusion and holding off of scenario forcing Anticoagulation/antiplatelets is advised. I had a long discussion with family members and Mother (repeatedly). Clinically patient has multiorgan failure. Secondary to active bleeding, we will avoid anticoagulation/antiplatelets for now. Being managed in ICU. Was taken to OR repeatedly. Still no reflexes. Echocardiogram revealed no WMA and also revealed good EF. It also revealed increased Pulmonary Artery Pressure in favor of component of Pulmonary Hypertension. Review of Echo images revealed good right ventricular systolic function. Not typical for Pulmonary Emboli. Still, PE cannot be ruled out. If PE is ruled out, then it is possible that patient had Pulmonary Hypertension from before (Baseline history of Asthma may actually reflect it). s/p PRBC transfusion (multiple). Being followed by Surgery, Nephrology, Hematology, Pulmonary, Neurology and GI. . Repeat imaging revealed cerebellar tonsillar herniation. Neurology diagnosed Hypoxic/Metabolic Encephalopathy also. EEG findings question meaningful recovery. Neurology declared patient: brain . Neurology second opinion was in favor of Anoxic/Hypoxic Encephalopathy. Repeat imaging of brain revealed worsening diffuse cerebral edema and also again revealed cerebellar tonsillar herniation. Family are contemplating Trach/PEG. Patient is seen by GI. s/p Tracheostomy. s/p PEG. s/p repeated PRBC transfusion. On pressure support. s/ p Arrest Intra-abdominal bleeding Hepatic hematoma Multiorgan failure, due to shock Shock liver Lactic Acidosis Acute renal failure Acute respiratory failure, on vent support Status post laparotomy Status post laparoscopic cholecystectomy Abnormal troponin, evaluated to reflect possible demand physiology History of gallstones History of asthma Obesity History of marijuana abuse Consumptive Coagulopathy / DIC Pulmonary Hypertension Cerebellar tonsillar Herniation. Encephalopathy, hypoxic/metabolic Renal failure, started on hemodialysis Brain scan questions brain Anoxic Encephalopathy s/p Tracheostomy s/p PEG Hypotension, Cardiac suggestion for management: Manage in ICU Follow-up electrolytes and kidney function tests and correct abnormalities Evaluation and management of respiratory failure as per Pulmonary Evaluation and management of Cerebellar tonsillar herniation and worsening cerebral edema as per Neurology/surgery/primary team V/Q scan could not be completed Anoxic/Hypoxic Encephalopathy Echocardiogram revealed no WMA and also revealed good EF. It also revealed increased Pulmonary Artery Pressure in favor of component of Pulmonary Hypertension. Hematology follow up (to comment on prophylaxis / treatment of Pulmonary Emboli) Surgical follow up Nephrology follow up (started on hemodialysis) and Hematology follow up Patient is seen by GI On Midodrine IV pressure support (Vasopressin) to keep MAP above 55 DVT prophylaxis as per primary team (compression stocking Vs Lovenox..) Long-term prognosis depends on the above and most importantly regaining of the higher brain function: looks very grim Ischemic workup may be considered only after regaining higher brain function or any special change in clinical presentation Further evaluation and management depends on the above and clinical course A total of 75 minutes was spent reviewing the patient record, examining the patient, making a diagnostic and therapeutic plan, discussing this plan with medical personnel, following up on diagnostic studies and following the patient for clinical stability excluding any and all procedures. At least 50% of this time was spent in direct, [id number] contact. Thank you for allowing me to participate in this patient's care. Further recommendations will depend on patient's clinical course. Please do not hesitate to contact me if you have any questions or concerns. This medical document was created using electronic medical record system with [employer] computerized dictation system. Although this document has been carefully reviewed, there may still be some phonetic and typographical errors. These areas are purely typographical due to the imperfection of the software programs, and do not reflect any compromise in the patient's medical care. Dietary Evaluation Review Recommendations by RD: PPN/TPN Comments: 1) Increase TPN rate to meet at least 75% of estimated daily needs 2) Advance to renal cardiac diet when medically feasible, pending ST approval 3) Follow-up with cardiology, pulmonology, nephrology, neurology, and gastroenterology 4) Continue to monitor I&O, labs, and skin integrity Expected Outcomes/Goals: 1) nutritional support to meet at least 75% of estimated daily needs 2) labs and wound to improve 3) diet to advance 4) gradual wt loss 5) f/u in 2-3 days Plan discussed with: Other (nurse) KATHLEEN COHEN MD Feb 27, 2025 09:01
[2025-02-27 09:04] LABS: Free T3 0.85 pg/mL (2.3-4.2); Free T4 (Free Thyroxine) 0.28 ng/dL (0.89-1.76)
[2025-02-27] MEDS: POTASSIUM CHL 20MEQ/100ML 100 ML IV ONE (09:16)
--- NOTE | 2025-02-27 10:56 | DVHPN2 ---
Progress Note - Dictate Date Seen: Feb 27, 2025 Has the PT tested + for MRSA If YES, has PT been informed?: No Medical Necessity Reason Pt with a Central, PICC or Fol: Yes The following are medically ne: Mora Catheter Reason for mora catheter: Nakul. Abd Surgery, Strict I&O, Total Immobilization Subjective Mr. Gillis is a 24 years old gentleman with a history of asthma, gallstone, obesity, the patient was brought to the [facility] on 01/29/2025 with a chief complaint of witnessed cardiopulmonary arrest. I have seen and examined the patient, I have discussed with his nurse, his mother, brother and other medical staff, he remained nonresponsive, no change in the neurologic physical examination He is off pressor drip and blood pressure is running low I do not see active bleeding from the PEG site The case was discussed with Dr. Cecilio SUERO, 01/29/2025 1616: Fentanyl, benzo Urinalysis, 01/29/2025: WBC: 1, urine leukocyte esterase: Negative ABG, 01/29/2025: Metabolic acidosis, 01/30/25: Metabolic acidosis VWF, 02/11/25: 380 WBC/HB/PLT/MCV, 01/29/2025: 20.1/8.3/234/107.4. 01/30/2025: 28.4/12.1/127/91.2, 02/24/2025: 10.2/10/417/89.6 PT/INR/PTT, 01/29/2025: 19.6/1.98/53.8. 01/30/2025: 13.6/1.32/28.7, 02/15/2025: 11.5/1.09/32.1, 02/24/25: 13/1.25/36.7 Na 01/29/2025: 146, 152, 01/30/2025: 147 BUN/CR, 01/30/2025: 29/4.34, 02/24/2025: 70/8.68 Lactic acid, 01/29/2025: 1749, 01/30/2025: 11.4 Troponin one high sensitivity, 01/29/2025: 2273, 4364, 7474 TBI/AST/ALT/AP, 01/29/2025: 1.3/676/700/136. /: 2.10/4635/2521/137 02/24/2025: 4.4/146/37/827 EEG, 02/01/2025: This is a remarkably abnormal EEG, this EEG seen in severe cerebral dysfunction due to metabolic/hypoxic encephalopathy or medication effects, unless this is caused by reversible etiology, this EEG is suggestive of a poor prognosis for meaningful recovery, please correlate clinically. CT head, 01/29/2025:No evidence of acute intracranial abnormality (I see signs suggestive of diffuse brain edema) CT head 01/30/2025: Diffuse cerebral edema with cerebellar tonsillar herniation. Recommend MRI brain for further evaluation. Critical Result: above finding CT head, 02/10/2025: Findings as above suggesting worsening diffuse cerebral edema in the setting of anoxic brain injury in the given clinical setting. Further clinical correlation is suggested. CT abdomen, pelvis, 01/29/2025: 1. Hepatic hematoma measuring up to approximately 8.6 cm in greatest dimension, as described above, with hemorrhage extending beyond the liver capsule and into the right pericolic gutter as well as into the pelvis. No definite active arterial bleeding is seen on this exam, although limited evaluation due to the timing of contrast, as this was not a CTA exam. 2. Postsurgical changes of cholecystectomy. 3. Dilated fluid-filled small bowel loops, may be due to postoperative ileus. No small bowel obstruction. 4. Small volume pneumoperitoneum, likely due to recent surgery. Small volume of gas are seen in the upper ventral abdomen from the recent surgery. 5. Dependent atelectasis in the lower lobes. Otherwise, no acute disease in the chest. 6. Endotracheal tube and enteric tube in place. 7. Atrophic right kidney incidentally noted. 8. Additional findings as described above Brain imaging flow, 02/03/2025: Findings described above, which would be consistent with brain in the appropriate clinical setting, however clinical correlation is needed. vital signs Vital Sign Date Time Temp Pulse Resp B/P (MAP) Pulse Ox O2 Delivery O2 Flow Rate FiO2 02/27/25 10:15 74/39 02/27/25 10:00 40 02/27/25 09:34 64 10 100 02/27/25 08:00 97.4 97.4 02/27/25 06:00 Mechanical Ventilator+ 02/25/25 11:25 40.0 Total Intake and Output 02/26/25 02/26/25 02/27/25 15:00 23:00 07:00 Intake Total 386 ml 665 ml 578 ml Output Total 240 ml 350 ml Balance 386 ml 425 ml 228 ml medications Current Medications Medications Dose Ordered Sig/Serenity Route Start Time Stop Time Status Last Admin Dose Admin Levalbuterol HCl 0.625 mg Q4HR PRN NEB 01/29/25 20:00 02/26/25 14:15 0.625 MG Ipratropium [place] 0.5 mg Q4HPRN PRN NEB 01/29/25 20:00 02/26/25 14:15 0.5 MG Sodium Chloride 10 ml QSHIFT@ IV 02/04/25 22:00 02/27/25 09:19 10 ML Artificial Tears 1 drop Q4HP PRN EACHEYE 02/08/25 07:30 02/21/25 21:29 1 DROP Epoetin Gunnar-epbx 8,000 unit MWF@2100 SC 02/17/25 21:00 02/26/25 22:30 8,000 UNIT Piperacillin Sod/ Tazobactam Sod 50 ml @ 12.5 mls/hr Q8H IV 02/23/25 10:00 02/27/25 09:19 12.5 MLS/HR Pantoprazole Sodium 40 mg DAILY IV 02/24/25 10:00 02/27/25 09:19 40 MG Metoclopramide HCl 5 mg Q6HR IV 02/24/25 00:00 02/27/25 05:03 5 MG Norepinephrine Bitartrate 250 ml @ 3.75 mls/hr Q24H IV 02/24/25 08:45 02/24/25 07:30 3.75 MLS/HR Erythromycin 250 mg Q6HR PO 02/24/25 18:00 02/27/25 05:03 250 MG Amino Acids 0 ml @ 0 mls/hr PER PHARMACY IV 02/24/25 21:00 Amino Acids/ Electrolytes/ Dextrose 1,000 ml @ 42 mls/hr DAILY@2200 IV 02/24/25 22:00 02/26/25 20:56 42 MLS/HR Enteral Nutritional Formula 1,000 ml 1000 GT 02/25/25 10:00 02/26/25 21:26 1,000 ML Diagnostic Test (Pha) 1 strip Q6HR 02/25/25 18:00 02/27/25 05:04 1 STRIP Insulin Human Regular FOLLOW SLIDING SCALE Q6HR SC 02/25/25 18:00 Dextrose 50 ml UD IV 02/25/25 18:00 Midodrine 10 mg TID@0600,1200,1800 PO 02/27/25 06:00 02/27/25 05:03 10 MG Vasopressin 20 units/Sodium Chloride 100 ml @ 3 mls/hr Q24H IV 02/27/25 09:00 objective The patient is well-nourished and well-developed with no distress MENTAL STATUS: Subjective CRANIAL NERVES: Pupils are equal, round, dilated and fixed. There are no corneal reflexes, no doll's eyes phenomenon. No signs of facial weakness. There are no gagging or coughing reflexes SENSATION: No responses to pain stimuli. MOTOR: Normal tone in the upper and lower extremity. Normal muscle bulk. No fasciculations. No spontaneous movement. REFLEXES: Deep tendon reflexes are symmetrical. No pathological reflexes. CEREBELLAR/COORDINATION: Deferred GAIT/STATION: deferred. laboratory and microbiology Laboratory Tests 02/27/25 02:46 Test 02/27/25 02:46 Range/Units Serum Glucose 78 74-106 mg/dL Problem List Cardiopulmonary arrest Status post CPR Coma Hypoxic encephalopathy Metabolic encephalopathy Diffuse brain edema Brain herniation Hepatic hematoma Sepsis Septic shock Hypovolemic shock Liver failure Acute kidney failure Anemia Assessment/Plan Monitoring Supportive treatment Follow-up labs ICU care Respiratory support/vent management Stabilize vitals/pressor drip p.r.n. Oxygen IV antibiotics GI prophylaxis Surgery on case Infectious disease on case Cardiology on case Nephrology on case Pulmonolog on case More recommendation per clinical course He likely has a poor prognosis for meaningful/overall recovery This medical document was created using an electronic medical record system with [employer] dictation system. Although this document has been carefully reviewed, there may still be some phonetic and typographical errors. These areas are purely typographical due to imperfections of the software programs, and do not reflect any compromise in the patient's medical care. More recommendation per clinical course Prognosis Guarded Dietary Evaluation Review Recommendations by RD: PPN/TPN Comments: 1) Increase TPN rate to meet at least 75% of estimated daily needs 2) Advance to renal cardiac diet when medically feasible, pending ST approval 3) Follow-up with cardiology, pulmonology, nephrology, neurology, and gastroenterology 4) Continue to monitor I&O, labs, and skin integrity Expected Outcomes/Goals: 1) nutritional support to meet at least 75% of estimated daily needs 2) labs and wound to improve 3) diet to advance 4) gradual wt loss 5) f/u in 2-3 days Plan discussed with: Other ALONZO MILLARD MD Feb 27, 2025 10:56
[2025-02-27] MEDS: HYDROCORTISONE SOD SUCC 100 MG/2ML INJ VIAL IV ONE (12:05)
[2025-02-27] MEDS: POTASSIUM EFFERVESENT TAB 25 MEQ GT ONE (12:06)
--- NOTE | 2025-02-27 13:40 | DVHPN2 ---
Progress Note Date Seen: Feb 27, 2025 Has the PT tested + for MRSA If YES, has PT been informed?: No Medical Necessity Reason Pt with a Central, PICC or Fol: Yes The following are medically ne: Mora Catheter Reason for mora catheter: Nakul. Abd Surgery, Strict I&O, Total Immobilization Subjective Patient reports: Other (no events ) Review of Systems: Deferred Objective vital signs Vital Sign Date Time Temp Pulse Resp B/P (MAP) Pulse Ox O2 Delivery O2 Flow Rate FiO2 02/27/25 13:00 65 10 100/66 (77) 99 02/27/25 12:00 97.5 97.5 02/27/25 12:00 40 02/27/25 06:00 Mechanical Ventilator+ 02/25/25 11:25 40.0 Total Intake and Output 02/26/25 02/26/25 02/27/25 15:00 23:00 07:00 Intake Total 386 ml 665 ml 578 ml Output Total 240 ml 350 ml Balance 386 ml 425 ml 228 ml medications Current Medications Medications Dose Ordered Sig/Serenity Route Start Time Stop Time Status Last Admin Dose Admin Levalbuterol HCl 0.625 mg Q4HR PRN NEB 01/29/25 20:00 02/26/25 14:15 0.625 MG Ipratropium [place] 0.5 mg Q4HPRN PRN NEB 01/29/25 20:00 02/26/25 14:15 0.5 MG Sodium Chloride 10 ml QSHIFT@10,22 IV 02/04/25 22:00 02/27/25 09:19 10 ML Artificial Tears 1 drop Q4HP PRN EACHEYE 02/08/25 07:30 02/27/25 12:47 1 DROP Epoetin Gunnar-epbx 8,000 unit MWF@2100 SC 02/17/25 21:00 02/26/25 22:30 8,000 UNIT Piperacillin Sod/ Tazobactam Sod 50 ml @ 12.5 mls/hr Q8H IV 02/23/25 10:00 02/27/25 09:19 12.5 MLS/HR Pantoprazole Sodium 40 mg DAILY IV 02/24/25 10:00 02/27/25 09:19 40 MG Metoclopramide HCl 5 mg Q6HR IV 02/24/25 00:00 02/27/25 12:08 5 MG Norepinephrine Bitartrate 250 ml @ 3.75 mls/hr Q24H IV 02/24/25 08:45 02/24/25 07:30 3.75 MLS/HR Erythromycin 250 mg Q6HR PO 02/24/25 18:00 02/27/25 12:07 250 MG Amino Acids 0 ml @ 0 mls/hr PER PHARMACY IV 02/24/25 21:00 Amino Acids/ Electrolytes/ Dextrose 1,000 ml @ 42 mls/hr DAILY@2200 IV 02/24/25 22:00 02/26/25 20:56 42 MLS/HR Enteral Nutritional Formula 1,000 ml 1000 GT 02/25/25 10:00 02/26/25 21:26 1,000 ML Diagnostic Test (Pha) 1 strip Q6HR 02/25/25 18:00 02/27/25 12:08 1 STRIP Insulin Human Regular FOLLOW SLIDING SCALE Q6HR SC 02/25/25 18:00 Dextrose 50 ml UD IV 02/25/25 18:00 Midodrine 10 mg TID@0600,1200,1800 PO 02/27/25 06:00 02/27/25 12:07 10 MG Vasopressin 20 units/Sodium Chloride 100 ml @ 3 mls/hr Q24H IV 02/27/25 09:00 Examination: GENERAL:Abnormal, MSK:Abnormal, NEURO:Abnormal laboratory and microbiology Laboratory Tests 02/27/25 02:46 Test 02/27/25 02:46 Range/Units Serum Glucose 78 74-106 mg/dL Microbiology Date/Time Source Procedure Growth Status 02/22/25 21:21 Urine - Mora Port Urine Culture - Final Complete 02/20/25 09:30 Blood Blood Culture - Final NO GROWTH AFTER 5 DAYS OF INCUBATION. Complete 02/19/25 11:44 Trachea Gram Stain - Final Complete 02/19/25 11:44 Respiratory Culture - Final Klebsiella pneumoniae Complete 01/29/25 10:43 Sputum Gram Stain - Final Complete 01/29/25 10:43 Sputum Respiratory Culture - Final Complete Problem List/Assessment/Plan Problem List/Assessment/Plan Acute kidney injury likely ischemic ATN in the setting of shock, FeNa > 2%, nonoliguric Acute respiratory failure, intubated on ventilator Status post cardiac arrest Anoxic encephalopathy//brain herniation Hyperkalemia secondary to above Metabolic acidosis anion gap secondary to lactic acidosis secondary to reduced perfusion from hemorrhage Hemodynamic shock from bleeding Acute blood loss anemia/post op Status post laparoscopic cholecystectomy on 01/28/25 [facility] Status post ex lap, 01/29 Positive troponins NSTEMI--likely demand ischemia Shock liver Hypokalemia Recommendations Hemodialysis tomorrow k replace Plan discussed with: Other (mom) Dietary Evaluation Review Recommendations by RD: PPN/TPN Comments: 1) Increase TPN rate to meet at least 75% of estimated daily needs 2) Advance to renal cardiac diet when medically feasible, pending ST approval 3) Follow-up with cardiology, pulmonology, nephrology, neurology, and gastroenterology 4) Continue to monitor I&O, labs, and skin integrity Expected Outcomes/Goals: 1) nutritional support to meet at least 75% of estimated daily needs 2) labs and wound to improve 3) diet to advance 4) gradual wt loss 5) f/u in 2-3 days SILVIA NOONAN MD Feb 27, 2025 13:40
--- NOTE | 2025-02-27 18:03 | DVHPNRES ---
Progress Note Date Seen: Feb 27, 2025 Resident Creating Document: ARNOLD MUHAMMAD RESDIENT Has the PT tested + for MRSA If YES, has PT been informed?: No Medical Necessity Reason Pt with a Central, PICC or Fol: Yes The following are medically ne: Mora Catheter Reason for mora catheter: Nakul. Abd Surgery, Strict I&O, Total Immobilization Subjective Review of Systems Patient seen and evaluated in bedside today. Patient currently on mechanical ventilation, vent setting peep 7, tidal volume 500, FiO2 55, respiratory rate 10. Labs reviewed. Objective vital signs Vital Sign Date Time Temp Pulse Resp B/P (MAP) Pulse Ox O2 Delivery O2 Flow Rate FiO2 02/27/25 17:15 72 12 107/69 (82) 99 02/27/25 16:00 97.6 97.6 02/27/25 16:00 Mechanical Ventilator+ 40 40 02/25/25 11:25 40.0 Total Intake and Output 02/26/25 02/26/25 02/27/25 15:00 23:00 07:00 Intake Total 386 ml 665 ml 578 ml Output Total 240 ml 350 ml Balance 386 ml 425 ml 228 ml medications Current Medications Medications Dose Ordered Sig/Serenity Route Start Time Stop Time Status Last Admin Dose Admin Levalbuterol HCl 0.625 mg Q4HR PRN NEB 01/29/25 20:00 02/26/25 14:15 0.625 MG Ipratropium [place] 0.5 mg Q4HPRN PRN NEB 01/29/25 20:00 02/26/25 14:15 0.5 MG Sodium Chloride 10 ml QSHIFT@ IV 02/04/25 22:00 02/27/25 09:19 10 ML Artificial Tears 1 drop Q4HP PRN EACHEYE 02/08/25 07:30 02/27/25 12:47 1 DROP Epoetin Fiona-epbx 8,000 unit MWF@2100 SC 02/17/25 21:00 02/26/25 22:30 8,000 UNIT Piperacillin Sod/ Tazobactam Sod 50 ml @ 12.5 mls/hr Q8H IV 02/23/25 10:00 02/27/25 17:10 12.5 MLS/HR Pantoprazole Sodium 40 mg DAILY IV 02/24/25 10:00 02/27/25 09:19 40 MG Metoclopramide HCl 5 mg Q6HR IV 02/24/25 00:00 02/27/25 17:11 5 MG Norepinephrine Bitartrate 250 ml @ 3.75 mls/hr Q24H IV 02/24/25 08:45 02/24/25 07:30 3.75 MLS/HR Erythromycin 250 mg Q6HR PO 02/24/25 18:00 02/27/25 17:11 250 MG Amino Acids 0 ml @ 0 mls/hr PER PHARMACY IV 02/24/25 21:00 Amino Acids/ Electrolytes/ Dextrose 1,000 ml @ 42 mls/hr DAILY@2200 IV 02/24/25 22:00 02/26/25 20:56 42 MLS/HR Enteral Nutritional Formula 1,000 ml 1000 GT 02/25/25 10:00 02/26/25 21:26 1,000 ML Diagnostic Test (Pha) 1 strip Q6HR 02/25/25 18:00 02/27/25 17:12 1 STRIP Insulin Human Regular FOLLOW SLIDING SCALE Q6HR SC 02/25/25 18:00 Dextrose 50 ml UD IV 02/25/25 18:00 Midodrine 10 mg TID@0600,1200,1800 PO 02/27/25 06:00 02/27/25 17:12 10 MG Vasopressin 20 units/Sodium Chloride 100 ml @ 3 mls/hr Q24H IV 02/27/25 09:00 Examination General: RASS -5, afebrile, mucosae are moist Cardiovascular: Normal S1 and S2. No murmurs, gallops or rubs Respiratory: Mechanically assisted ventilation, equal bilateral airway entree. Clear lung sounds on auscultation Abdomen: Soft, nontender, no organomegaly, with surgical wound on abdomin MSK/skin: Mobilization of limbs cannot be evaluated. Skin is dry and warm. Neurological: Orientation cannot be assessed. Pupils are dilated and nonreactive to light, absent brainstem reflexes. laboratory and microbiology Laboratory Tests 02/27/25 02:46 Test 02/27/25 02:46 Range/Units Serum Glucose 78 74-106 mg/dL Microbiology Date/Time Source Procedure Growth Status 02/22/25 21:21 Urine - Mora Port Urine Culture - Final Complete 02/20/25 09:30 Blood Blood Culture - Final NO GROWTH AFTER 5 DAYS OF INCUBATION. Complete 02/19/25 11:44 Trachea Gram Stain - Final Complete 02/19/25 11:44 Respiratory Culture - Final Klebsiella pneumoniae Complete 01/29/25 10:43 Sputum Gram Stain - Final Complete 01/29/25 10:43 Sputum Respiratory Culture - Final Complete Labs and/or images reviewed: Labs reviewed by me, Image(s) reviewed by me Problem List/Assessment/Plan Problem List/Assessment/Plan This is a 24-year-old male with no significant past medical history underwent elective laparoscopic cholecystectomy on 01/28 at [facility] (due to cholelithiasis), on 2nd day postop at home became lethargic and subsequently coded. ROSC was achieved with CPR, abdominal CT scan showed intra-abdominal hematoma, underwent emergent laparotomy and drained about 500-750 thrombosed and dark blood. NEURO: Hypoxic encephalopathy, due to cardiac arrest Anoxic brain injury * RASS Score -5 * Head CT from 01/30 shows, Cerebellar tonsilar herniation. There is sulcal and ventricular effacement. The basal cisterns are effaced. Loss of mario-white matter differentiation is noted. * Head CT on 02/11 shows worsening diffuse cerebral edema in the setting of anoxic brain injury * BRNNM-brain imaging, shows absence blood flow, findings suggest brain in the appropriate clinical setting * Plan: transfering to LTAC CARDIOVASCULAR: NSTEMI possible type 2 Status post cardiac arrest Distributive shock (vasoplegia)/neurogenic shock/septic shock vasopressin * Cardiology on the board, recommended medical management * Echo from 01/30 shows,Technically limited study secondary to poor acoustic windows, normal LV size and function, 55-60% * Plan: Levophed, midodrine 10 mg t.i.d. hydrocortisone 50 mg q.6 hours PULMONARY: Acute hypoxic respiratory failure, likely due to anoxic brain injury Cxr showed bilateral mild pulmonary vascular congestion GASTROINTESTINAL: Acute transaminitis secondary to hypovolemic shock Coagulopathy Hypoalbuminemia Status post laparoscopic cholecystectomy Status post exploratory laparotomy for hemoperitoneum Transaminitis, likely due to TPN GENITOURINARY: HARLEEN secondary to hypovolemic shock * Nephrology on the board, performed dialysis on 02/03 * IV Bumex 2 mg b.i.d. METABOLIC: Severe anion gap metabolic acidosis due to lactic acidosis Hypernatremia Grade 2 obesity, BMI 35.7 kg per m2 Hypoglycemia HEME: Severe anemia, due to bleeding * Received 3 units of PRBC, 2 units of FFP and 1 unit of cryoprecipitate * Monitor H&H and epoetin fiona INFECTIOUS DISEASE: Leucocytosis Lactic acidosis * Urine culture, blood culture and respiratory culture shows no growth * On Zosyn DIET: TPN DVT prophylax: Hold GI prophylaxis: Protonix Code status: Full code LINES/DRAINS/ACCESS: ETT: Intubated on 01/29 IV access: Lt IJ placed on 01/29/25 left subclavian, tunneled dialysis catheter placed on 02/14 Drips: On Levophed Mora catheter: Placed on 01/29 DISPOSITION: ICU status Patient's status discussed with the patient's mother at the bedside. Critical care time spent more than 42 minutes, including patient care, chart review, and updating the family. Excluding any procedures. Case discussed with Dr. Troy Plan discussed with: Patient, Other Dietary Evaluation Review Recommendations by RD: PPN/TPN Comments: 1) Increase TPN rate to meet at least 75% of estimated daily needs 2) Advance to renal cardiac diet when medically feasible, pending ST approval 3) Follow-up with cardiology, pulmonology, nephrology, neurology, and gastroenterology 4) Continue to monitor I&O, labs, and skin integrity Expected Outcomes/Goals: 1) nutritional support to meet at least 75% of estimated daily needs 2) labs and wound to improve 3) diet to advance 4) gradual wt loss 5) f/u in 2-3 days Date of Service: Feb 27, 2025 Billing Provider: JEFFREY TROY MD Common Visit Codes: [id number] CARE 30-74 MIN ARNOLD MUHAMMAD Feb 27, 2025 18:03 JEFFREY TROY MD Mar 01, 2025 11:11
--- NOTE | 2025-02-27 18:34 | DVHPN2 ---
Progress Note Date Seen: Feb 27, 2025 Has the PT tested + for MRSA If YES, has PT been informed?: No Medical Necessity Reason Pt with a Central, PICC or Fol: Yes The following are medically ne: Mora Catheter Reason for mora catheter: Nakul. Abd Surgery, Strict I&O, Total Immobilization Subjective Review of Systems Pt's mother and brother at the bedside. Per RN continues with high RV. Off pressors. Scheduled for HD tomorrow. Objective vital signs Vital Sign Date Time Temp Pulse Resp B/P (MAP) Pulse Ox O2 Delivery O2 Flow Rate FiO2 02/27/25 18:15 94 10 110/66 (81) 99 02/27/25 18:00 Mechanical Ventilator+ 40 40 02/27/25 16:00 97.6 97.6 02/25/25 11:25 40.0 Total Intake and Output 02/26/25 02/26/25 02/27/25 15:00 23:00 07:00 Intake Total 386 ml 665 ml 578 ml Output Total 240 ml 350 ml Balance 386 ml 425 ml 228 ml medications Current Medications Medications Dose Ordered Sig/Serenity Route Start Time Stop Time Status Last Admin Dose Admin Levalbuterol HCl 0.625 mg Q4HR PRN NEB 01/29/25 20:00 02/27/25 18:02 0.625 MG Ipratropium [place] 0.5 mg Q4HPRN PRN NEB 01/29/25 20:00 02/27/25 18:02 0.5 MG Sodium Chloride 10 ml QSHIFT@10,22 IV 02/04/25 22:00 02/27/25 09:19 10 ML Artificial Tears 1 drop Q4HP PRN EACHEYE 02/08/25 07:30 02/27/25 12:47 1 DROP Epoetin Gunnar-epbx 8,000 unit MWF@2100 SC 02/17/25 21:00 02/26/25 22:30 8,000 UNIT Piperacillin Sod/ Tazobactam Sod 50 ml @ 12.5 mls/hr Q8H IV 02/23/25 10:00 02/27/25 17:10 12.5 MLS/HR Pantoprazole Sodium 40 mg DAILY IV 02/24/25 10:00 02/27/25 09:19 40 MG Metoclopramide HCl 5 mg Q6HR IV 02/24/25 00:00 02/27/25 17:11 5 MG Norepinephrine Bitartrate 250 ml @ 3.75 mls/hr Q24H IV 02/24/25 08:45 02/24/25 07:30 3.75 MLS/HR Erythromycin 250 mg Q6HR PO 02/24/25 18:00 02/27/25 17:11 250 MG Amino Acids 0 ml @ 0 mls/hr PER PHARMACY IV 02/24/25 21:00 Amino Acids/ Electrolytes/ Dextrose 1,000 ml @ 42 mls/hr DAILY@2200 IV 02/24/25 22:00 02/26/25 20:56 42 MLS/HR Enteral Nutritional Formula 1,000 ml 1000 GT 02/25/25 10:00 02/26/25 21:26 1,000 ML Diagnostic Test (Pha) 1 strip Q6HR 02/25/25 18:00 02/27/25 17:12 1 STRIP Insulin Human Regular FOLLOW SLIDING SCALE Q6HR SC 02/25/25 18:00 Dextrose 50 ml UD IV 02/25/25 18:00 Midodrine 10 mg TID@0600,1200,1800 PO 02/27/25 06:00 02/27/25 17:12 10 MG Vasopressin 20 units/Sodium Chloride 100 ml @ 3 mls/hr Q24H IV 02/27/25 09:00 Examination Neuro. Unchanged. Dilated fixed pupils. No reflexes. Pt has been moving for last 1-2 weeks. Do not seem purposeful. Mother and brother been made aware that these movements are likely involuntary and prognosis remains unchanged. Family taking this as a sign of improvement and remain hopeful he will recover. CV. HR 90s BP 110/66. Off pressors.Previous LSCV HD catheter site C/D/I. Right PC and PICC catheter exit sites remain C/D/I. Pulmonary: Tracheostomy in place. No active bleeding. C/D/I. Mechanical ventilator support 550/10/35%/+7. RR 10/min on vent display. GI: Soft, obese, nondistended and non tender. Incisions and dressing C/D/I. PEG in place. No further bleeding from PEG. TF held, high RV. Tends to not tolerate TF with hypotension and/or vasopressor support, even if with minimal dose. . Mora catheter in place. Clear yellow urine in collection bag Extremities. No edema Mild orbital edema Skin: Nearly resolved jaundice. laboratory and microbiology Laboratory Tests 02/27/25 02:46 Test 02/27/25 02:46 Range/Units Serum Glucose 78 74-106 mg/dL Microbiology Date/Time Source Procedure Growth Status 02/22/25 21:21 Urine - Mora [place] Urine Culture - Final Complete 02/20/25 09:30 Blood Blood Culture - Final NO GROWTH AFTER 5 DAYS OF INCUBATION. 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 CT revealed cerebral edema and tonsillar herniation.EEG no electric activity. Cerebral perfusion study confirmed no perfusion radiographically consistent with brain which was concordant with initial clinical diagnosis and EEG. However, pt continues demonstrating brainstem function as he is breathing over vent set rate. Fluctuating HR, RR, BP and temperature. Could be secondary to autonomic dysfunction. F/U (3rd) CT brain worsening cerebral edema and tonsillar herniation. CV:Hemodynamically labile. Vasopressin as needed. Normal HR. Possible autonomic dysfunction. Midodrine to 10 mg via PEG TID. Cardiology assistance appreciated. Mechanical DVT prophylaxis.Pulmonary hypertension possibly unknowingly preexistent. Duplex negative for DVT Pulmonary: VDRF. S/p tracheostomy. ABG. Metabolic alkalosis and hypoxemia. Not informed about results. Per RT just now removed mucous plug. O2 Sta 99%. ABG in 1 hr. Continue vent as is, changes dependent on ABG and clinical condition. Sputum Cx Klebsiella pneumoniae sensitive to Zosyn. Continue ventilator support. Appreciate pulmonary medicine assistance. Pulmonary medicine following. GI: Continue BID GI prophylaxis. Hepatic shock. Improving LFTs. Decreasing TB. Possible TPN related cholestasis. Hold Vital AF for today. Erythromycin as prokinetic.Continue Clinimix for now. PEG site suture will be revised. Very large BM this morning. : ARF/ATN. Strict I&O. Mora to gravity. Appreciate nephrology assistance. Replace/correct electrolytes. HD per nephrology. Consider volume neutral HD. If possible. Nephrology D/C's IVF. Clinimix at 42 mL/hr. Heme/ID: WBC 14, likely inflammatory response after bleeding and transfusion and/or effects of hydrocortisone. D/C'd 2 days ago. Cortisol level normal. All Cx negative besides Respiratory culture with Klebsiella PNA, which continues under Tx. Hgb 8.6. UCx NGTD. Minimizing blood draw frequency to avoid worsening anemia. Repeat labs AM. Appreciate hematology assistance. Continue Zosyn for Klebsiella pneumoniae PNA. Endocrine: Tight glycemic control. Cortisol level normal. TSH normal, T3 and T4 low. ? Hypothyroidism. Will defer to IM. Skin: Skin care and pressure ulcer precautions. Pending Txfr to subacute rehab or LTAC when stable Plan discussed with: Other (Mother, brother and RN) My Orders My Orders Orders - JITENDRA ZAMORA MD Procedure Category Date Status Time Discharge DISCHARGE 02/27/25 Transmitted 09:00 Midodrine Tablet PHA 02/27/25 In Process (Proamatine Tablet) 06:00 Abg W/ Co-Ox RT 02/27/25 Logged 05:16 Thyroxine (T4) LAB 02/27/25 In Process 06:13 Magnesium LAB 02/28/25 Verified 05:00 Phosphorus LAB 02/28/25 Verified 05:00 * Aviation Project Engineer CONS 02/27/25 Transmitted Consult Chest Portable XY 02/28/25 Logged 04:00 Abg W/ Co-Ox RT 02/27/25 Logged 19:15 Dietary Evaluation Review Recommendations by RD: PPN/TPN Comments: 1) Increase TPN rate to meet at least 75% of estimated daily needs 2) Advance to renal cardiac diet when medically feasible, pending ST approval 3) Follow-up with cardiology, pulmonology, nephrology, neurology, and gastroenterology 4) Continue to monitor I&O, labs, and skin integrity Expected Outcomes/Goals: 1) nutritional support to meet at least 75% of estimated daily needs 2) labs and wound to improve 3) diet to advance 4) gradual wt loss 5) f/u in 2-3 days JITENDRA ZAMORA MD Feb 27, 2025 18:34
[2025-02-27 19:27] LABS: Base Excess -1.5 mmol/L (-2.0-3.0)
[2025-02-28] VITALS (104 sets, daily range): BP systolic 75–166; BP diastolic 38–114; PULSE 66–88; RESP 10–12; TEMP 96.1–97.8; O2SAT 96–100
[2025-02-28 03:42] LABS: Hematocrit 28.1 % (41.0-53.0); Hemoglobin 9.4 g/dL (13.5-17.5); Mean Corpuscular Hemoglobin 28.9 pg (28.0-32.0); Mean Corpuscular Volume 86.1 fL (80.0-100.0)
[2025-02-28 04:10] LABS: Alanine Aminotransferase 31 U/L (7-40); Albumin 3.6 g/dL (3.2-4.8); Anion Gap 17 (5-15); BUN/Creatinine Ratio 12.8 (10.0-20.0); Carbon Dioxide 24 mmol/L (20-31); Chloride 99 mmol/L (98-107); Glucose 85 mg/dL (74-106); Magnesium 2.0 mg/dL (1.6-2.6); Potassium 4.6 mmol/L (3.5-5.1); Sodium 140 mmol/L (136-145); Total Protein 6.9 g/dL (5.7-8.2)
[2025-02-28 04:18] LABS: Alkaline Phosphatase 367 U/L (46-116); Bilirubin, Total 1.6 mg/dL (0.2-1.0); Blood Urea Nitrogen 85 mg/dL (9-23); Calcium 8.0 mg/dL (8.7-10.4)
--- NOTE | 2025-02-28 05:43 | DVH ---
CHEST RADIOGRAPH Indication: VDRF Technique: Single frontal view of the chest was obtained COMPARISON: XY CHEST PORTABLE on DOS: 02/26/25, XY CHEST PORTABLE on DOS: 02/24/25, XY CHEST PORTABLE on DOS: 02/23/25, XY CHEST PORTABLE on DOS: 02/22/25, XY CHEST PORTABLE on DOS: 02/20/25 FINDINGS: Lines and Tubes: Tracheostomy, right central venous catheter and right PICC in satisfactory position. Lungs: Low lung volumes and bibasilar subsegmental atelectasis. Pleura: No effusion. No pneumothorax. Cardiomediastinal contours: Unremarkable. Bones: Unremarkable. IMPRESSION: Low lung volumes and bibasilar subsegmental atelectasis.
[2025-02-28 06:29] LABS: Total Cells Counted 100.0 (100)
[2025-02-28 06:50] LABS: Base Excess -1.9 mmol/L (-2.0-3.0)
--- NOTE | 2025-02-28 08:27 | DVHPN2 ---
Progress Note - Dictate Date Seen: Feb 28, 2025 Has the PT tested + for MRSA If YES, has PT been informed?: No Medical Necessity Reason Pt with a Central, PICC or Fol: Yes The following are medically ne: Mora Catheter Reason for mora catheter: Nakul. Abd Surgery, Strict I&O, Total Immobilization vital signs Vital Sign Date Time Temp Pulse Resp B/P (MAP) Pulse Ox O2 Delivery O2 Flow Rate FiO2 02/28/25 07:45 70 11 107/72 (84) 100 40 02/28/25 07:00 96.4 205.5 02/28/25 06:00 Mechanical Ventilator+ Total Intake and Output 02/27/25 02/27/25 02/28/25 15:00 23:00 07:00 Intake Total 404 ml 536 ml 424 ml Output Total 350 ml 800 ml Balance 404 ml 186 ml -376 ml medications Current Medications Medications Dose Ordered Sig/Serenity Route Start Time Stop Time Status Last Admin Dose Admin Levalbuterol HCl 0.625 mg Q4HR PRN NEB 01/29/25 20:00 02/27/25 18:02 0.625 MG Ipratropium [place] 0.5 mg Q4HPRN PRN NEB 01/29/25 20:00 02/27/25 18:02 0.5 MG Sodium Chloride 10 ml QSHIFT@10,22 IV 02/04/25 22:00 02/27/25 21:34 10 ML Artificial Tears 1 drop Q4HP PRN EACHEYE 02/08/25 07:30 02/27/25 12:47 1 DROP Epoetin Gunnar-epbx 8,000 unit MWF@2100 SC 02/17/25 21:00 02/26/25 22:30 8,000 UNIT Piperacillin Sod/ Tazobactam Sod 50 ml @ 12.5 mls/hr Q8H IV 02/23/25 10:00 02/28/25 01:30 12.5 MLS/HR Pantoprazole Sodium 40 mg DAILY IV 02/24/25 10:00 02/27/25 09:19 40 MG Metoclopramide HCl 5 mg Q6HR IV 02/24/25 00:00 02/28/25 05:31 5 MG Norepinephrine Bitartrate 250 ml @ 3.75 mls/hr Q24H IV 02/24/25 08:45 02/24/25 07:30 3.75 MLS/HR Erythromycin 250 mg Q6HR PO 02/24/25 18:00 02/28/25 05:31 250 MG Amino Acids 0 ml @ 0 mls/hr PER PHARMACY IV 02/24/25 21:00 Amino Acids/ Electrolytes/ Dextrose 1,000 ml @ 42 mls/hr DAILY@2200 IV 02/24/25 22:00 02/27/25 21:34 42 MLS/HR Enteral Nutritional Formula 1,000 ml 1000 GT 02/25/25 10:00 02/28/25 05:55 1,000 ML Diagnostic Test (Pha) 1 strip Q6HR 02/25/25 18:00 02/28/25 05:31 1 STRIP Insulin Human Regular FOLLOW SLIDING SCALE Q6HR SC 02/25/25 18:00 Dextrose 50 ml UD IV 02/25/25 18:00 Midodrine 10 mg TID@0600,1200,1800 PO 02/27/25 06:00 02/28/25 05:31 10 MG Vasopressin 20 units/Sodium Chloride 100 ml @ 3 mls/hr Q24H IV 02/27/25 09:00 laboratory and microbiology Laboratory Tests 02/28/25 03:07 Test 02/28/25 03:07 Range/Units Serum Glucose 85 74-106 mg/dL Assessment/Plan Still in ICU. On vent support. No gross higher brain reflexes. Pupils are dilated and fixed. Anoxic/Hypoxic Encephalopathy No reported arrhythmia overnight s/p Tracheostomy s/p PEG placement s/p PRBC transfusion (repeated) On Midodrine retirement Prognosis: Poor Echocardiogram revealed no WMA and also revealed good EF. It also revealed increased Pulmonary Artery Pressure in favor of component of Pulmonary Hypertension. s/p Hemodialysis Received blood and platelet transfusion repeatedly Patient is a 24-year-old gentleman who was originally brought to the hospital for post arrest. Patient is seen in postop area. Patient is intubated and on multiple pressor supports. Patient is not source of history. Information was obtained by reviewing the chart, talking to patient's family/mother and communicating with staff and reviewing outside records ([facility]). Patient did have elective outpatient laparoscopic cholecystectomy in [facility] on January 28 2025. As per mother, after going home, patient was feeling very hungry and was eating and drinking a lot. He started feeling abdominal pain with nausea at night and in the morning was short of breath. As per mother: patient has stopped breathing in the morning and family called 911. As per mother, as per guidance of 911, family started CPR until EMS arrived. Patient was intubated and was brought to the hospital by EMS. Since arrival to [facility], patient was seen by surgeon who took the patient to operating room and performed laparotomy (there was hepatic hematoma). Postoperatively, the patient has remained hypotensive. There is signs for multiorgan involvement. Patient was not alert and did not complain of any chest pains. Labs revealed increased troponin. Cardiology is involved for cardiac aspects of care and abnormal troponin. First available EKG reveals sinus tachycardia with no specific ST-T changes. Telemetry had revealed sinus tachycardia throughout the stay. Patient is found to have significant anemia and is receiving blood transfusion at the time of evaluation. It is of note that at the time of evaluation patient does not have any reflexes. On vent via tracheostomy. Mucosa pale. Dilated and fixed pupils, Scattered rhonchi in the lungs. Cardiac: Tachycardic. No murmur. Abdomen is covered by dressing. Extremities do not reveal any edema. Dorsalis pedis is 1+ bilateral. Patient does not respond to any stimuli. Reported past medical history includes asthma and obesity. Reportedly, on January 23, 2025: Patient presented to [facility] for abdominal pain/nausea/vomiting. At that point the problems were ongoing for few weeks. In [facility], CT of the abdomen and MRCP were performed. Patient was seen by GI/surgery. Patient was found to have gallstones. Patient was discharged and later on January 28, 2025 presented back to [facility] for elective laparoscopy cholecystectomy. Patient was discharged home from [facility] after laparoscopic cholecystectomy. As per mother, patient does not have baseline history of any cardiac history. As per mother, patient was using marijuana. Mother denies any previous substance abuse besides marijuana. No specific family history is reported On January 23, 2025, labs in [facility] revealed creatinine of 0.84, hemoglobin of 15.2 and troponin (high sensitive) of <3. At that point EKG was normal WBC: 20.1 - 19.0 - 22.7 - 20.6 - 28.4 - 20.3 - 21.0 - 25.2 - 29.8 - 29.5 - 29.0 - 26.2 - 21.7 - 19.7 - 17.7 - 15.3 - 12.2 - 10.5 - 11.2 - 13.0 - 10.7 - 9.0 - 9.0 - 10.3 - 10.3 - 10.1 - 11.0 - 12.4 - 13.0 - 12.0 - 15.1 - 13.8 - 14.9 - 13.1 - 10.2 - 12.4 - 15.0 - 14.3 - 18.0 Hemoglobin: 8.3 - 6.5 - 12.1 - 11.1 - 12.1 - 9.3 - 9.2 - 9.1 - 8.4 - 9.0 - 9.5 - 8.8 - 8.4 - 8.0 - 9.7 - 9.6 - 9.8 - 9.6 - 9.7 - 9.8 - 9.1 - 8.5 - 8.8 - 8.9 - 8.7 - 8.8 - 9.7 - 9.1 - 7.9 - 8.2 - 10.1 - 9.5 - 9.7 - 9.6 - 10.0 - 7.9 - 8.0 - 8.7 - 8.6 - 9.4 Fibrinogen: 108 - 316 - 537 - 689 - >860 - 422 Creatinine: 4.02 - 3.78 - 3.90 - 3.95 - 4.34 - 5.44 - 6.05 - 6.73 - 7.31 - 7.77 - 6.64 - 7.30 - 4.91 - 5.32 - 7.40 - 5.98 - 7.66 - 6.28 - 7.71 - 8.67 - 6.87 - 5.62 - 7.59 - 8.95 - 7.51 - 9.04 - 6.23 - 7.09 - 5.33 - 6.90 - 4.95 - 6.31 - 7.51 - 6.00 - 7.40 - 8.68 - 7.46 - 8.53 - 5.78 - 6.63 Potassium: 5.6 - 4.6 - 4.8 - 3.9 - 2.9 - 2.9 - 3.6 - 3.8 - 4.9 - 5.4 - 6.0 - 5.1 - 5.3 - 6.1 - 6.0 - 4.6 - 4.4 - 4.3 - 3.5 - 3.4 - 3.7 - 4.5 - 5.7 - 5.2 - 4.0 - 3.8 - 4.1 - 4.5 - 4.9 - 4.7 - 4.6 - 4.4 - 4.6 - 3.7 - 3.5 - 4.5 - 3.7 - 5.1 - 6.0 - 4.4 - 4.9 - 4.2 - 3.0 - 4.6 AST/ALT: 676/700 - 2327/6 - 4636/2521 - -/1995 - 2500/1989 - 1780/182 - 808/995 - 586/735 - 456/444 - 312/290 - 237/163 - 215/125 - 190/87 - 200/74 - 202/66 - 189/53 - 186/44 - 186/45 - 192/38 - 193/34 - 214/34 - 195/30 - 261/42 - 241/47 - 246/63 - 265/69 - 208/52 - 177/46 - 168/42 - 146/37 - 98/28 - 94/30 - 104/29 - 125/31 Lactic acid: 17.9 - 17.2 - 11.4 Troponin (high sensitive): 2973 - 2712 - 4364 - 7493 - 6395 TSH: 11.05 Urine Toxicology: positive for Fentanyl and Benzodiazepine Chest x-ray revealed: Lines and Tubes: Endotracheal tube projects 2.2 cm above the meghan. Right internal jugular central venous catheter tip projects over superior vena cava. Lungs: No focal consolidation. Low lung volumes. Pleura: No effusion. No pneumothorax. Cardiomediastinal contours: Unremarkable Bones: No acute osseous abnormality. IMPRESSION: Lines and tubes as above. Low lung volumes. Repeat chest x-ray revealed: IMPRESSION: Lines and tubes in satisfactory position. Mild increased pulmonary vascular congestion Repeat chest xry revealed: IMPRESSION: Lines and tubes in satisfactory position. Mild increased pulmonary vascular congestion Repeat chest xry revealed: IMPRESSION: 1. Low lung volumes with concomitant crowding of the pulmonary vasculature. 2. No evidence of focal consolidation. 3. Lines and tubes unchanged. Repeat chest xry revealed: IMPRESSION: 1. Slight interval retraction of the endotracheal tube such that the tip now projects approximately 4.7 cm above the level of the meghan. Remaining lines and tubes unchanged. 2. Otherwise no significant change compared to prior exam. Repeat chest xry revealed: IMPRESSION: 1. Slight interval advancement of endotracheal tube such that the tip now projects approximately 1.7 cm above the level of the meghan. Remaining lines and tubes unchanged. 2. Otherwise no significant change compared to prior exam. Repeat chest xry revealed: IMPRESSION: 1. Slight interval retraction of the endotracheal tube such that the tip now projects approximately 3.3 cm above the level of the meghan. Remaining lines and tubes unchanged. 2. No evidence of acute cardiopulmonary process. Repeat chest xry revealed: IMPRESSION: 1. Endotracheal tube in appropriate position. Remaining lines and tubes unchanged. 2. No evidence of acute cardiopulmonary process. Repeat chest xry revealed: IMPRESSION: 1. Small right pleural effusion. 2. Lines and tubes unchanged. Repeat chest xry revealed: IMPRESSION: 1. Small right pleural effusion. 2. Lines and tubes unchanged. Repeat chest xry revealed: IMPRESSION: 1. Small bilateral pleural effusions. 2. Lines and tubes unchanged. Repeat chest xry revealed: IMPRESSION: 1. Slight interval advancement of the endotracheal tube. Remaining lines and tubes unchanged. 2. No evidence of acute cardiopulmonary process. Repeat chest xry revealed: IMPRESSION: 1. Slight interval retraction of the endotracheal tube such that the tip now projects approximately 3.3 cm above the level of the meghan. Remaining lines and tubes unchanged. 2. No evidence of acute cardiopulmonary process. Repeat chest xry revealed: Bowel gas pattern is unremarkable. Enteric tube tip projects over the expected region of the stomach. The lung bases demonstrates bibasilar atelectasis. The lower pelvis is collimated from field of view. No acute osseous abnormality identified. Repeat chest xry revealed: Lines and Tubes: Endotracheal tube tip projects approximately 5.1 cm above the level of the meghan. Enteric catheter terminates within the gastric lumen. Right peripherally inserted central catheter tip and left subclavian central venous catheter tip project over the distal superior vena cava. Lungs: Clear Pleura: No effusion. No pneumothorax. Cardiomediastinal contours: Unremarkable Bones: Unremarkable IMPRESSION: 1. No radiographic evidence of acute cardiopulmonary abnormality. 2. Lines and tubes as above. Repeat chest xry revealed: IMPRESSION: 1. Stable position of the support lines and tubes. 2. Bibasilar airspace disease which may reflect atelectasis and/or pneumonia. Possible small bilateral pleural effusions. Repeat chest xry revealed: IMPRESSION: 1. Lines and tubes unchanged. 2. Persistently diminished lung volumes with concomitant exaggeration of the pulmonary vasculature. No evidence of acute cardiopulmonary process. Repeat chest xry revealed: IMPRESSION: 1. No acute cardiopulmonary disease. 2. Lines and tubes as above. Repeat chest xry revealed: IMPRESSION: 1. Intervally placed right IJ catheter projects in appropriate remaining support devices are stable.2. No other significant change from the previous study. Persistent low lung volumes with vascular crowding and basilar atelectasis. Repeat chest xry revealed: IMPRESSION: Heart is stable in size. There are low lung volumes with probable small left pleural effusion and bibasilar atelectasis. Support lines and tubes appear unchanged in satisfactory position. No pneumothorax. No significant interval change. Repeat chest xry revealed: IMPRESSION: Unchanged bibasilar opacities, likely atelectasis with small pleural effusions Repeat chest xry revealed: IMPRESSION: 1. No significant change from the previous study. Stable support devices. Persistent left pleural effusion and bibasilar airspace disease. Repeat chest xry revealed: IMPRESSION: 1. Interval removal of enteric catheter. Remaining Lines and tubes unchanged. 2. Otherwise, no significant change compared to prior exam allowing for differences in technique. Repeat chest xry revealed: IMPRESSION: Low lung volumes with bibasilar subsegmental atelectasis. Repeat chest xry revealed: IMPRESSION: 1. Tracheostomy ventilation. 2. Low lung volumes and bilateral lung base atelectasis versus scarring re-identified. Repeat chest xry revealed: IMPRESSION: 1. Tracheostomy ventilation. 2. Increased interstitial prominence in the left lung may be due to asymmetric CHF or interstitial pneumonia. 3. Low lung volumes and bilateral lung base opacities. Repeat chest xry revealed: Lines and Tubes: Tracheostomy tube is unchanged. There is a right central venous catheter with the tip terminating in the cavoatrial junction. There is a right PICC with its tip terminating in the superior vena cava. Lungs: Left basilar airspace disease. Pleura: No effusion. No pneumothorax. Cardiomediastinal contours: Unremarkable Bones: No acute osseous abnormality. IMPRESSION: 1. Left basilar airspace disease. Repeat chest xry revealed: IMPRESSION: Low lung volumes and bibasilar subsegmental atelectasis. KUB revealed: IMPRESSION: No evidence of ileus or small-bowel obstruction. Brain scan revealed: FINDINGS: Absence of cerebral blood flow is noted along with no brain parenchymal radiotracer uptake. Increased activity is seen in the central face likely representing vascular shunting consistent with the so-called "hot nose" sign. Findings suggest brain however clinical correlation is necessary. IMPRESSION: Findings described above, which would be consistent with brain in the appropriate clinical setting, however clinical correlation is needed. CT of the chest/abdomen/pelvis revealed: IMPRESSION: 1. Hepatic hematoma measuring up to approximately 8.6 cm in greatest dimension, as described above, with hemorrhage extending beyond the liver capsule and into the right pericolic gutter as well as into the pelvis. No definite active arterial bleeding is seen on this exam, although limited evaluation due to the timing of contrast, as this was not a CTA exam. 2. Postsurgical changes of cholecystectomy. 3. Dilated fluid-filled small bowel loops, may be due to postoperative ileus. No small bowel obstruction. 4. Small volume pneumoperitoneum, likely due to recent surgery. Small volume of gas are seen in the upper ventral abdomen from the recent surgery. 5. Dependent atelectasis in the lower lobes. Otherwise, no acute disease in the chest. 6. Endotracheal tube and enteric tube in place. 7. Atrophic right kidney incidentally noted. 8. Additional findings as described above. Critical findings Critical Result: Acute hepatic hematoma with hemorrhage extending beyond the liver capsule into the adjacent portions of the abdomen and into the pelvis as detailed above. Repeat CT of chest/abdomen/pelvis revealed: There is limited interpretation of the chest, abdomen and pelvis without administration of intravenous contrast. Endotracheal tube tip terminates just at the meghan / left main bronchus. Diffuse bilateral pulmonary airspace consolidation bilaterally significantly increased. Bilateral lower lobe lobar consolidation/ atelectasis, increased from prior. Small bilateral pleural effusions. There is extensive edema/ stranding within the upper anterior chest, neck region/supraclavicular region. There is some hyperdensity within this region which could represent components of hematoma / blood products. Heterogeneous appearance of the thyroid gland. Right IJ catheter terminating at the cavoatrial junction. Adrenal glands unremarkable in shape. Perisplenic hematoma. Interval postsurgical changes in the right upper quadrant of the abdomen. There appears to be surgicel/gaseous collection within the previous hematoma cavity, likely representing surgicel. There is a radiopaque density within the resection cavity as well which measures 6.2 x 4.6 cm.. Postoperative changes of the right anterior abdomen with soft tissue emphysema. Small amount of pneumoperitoneum Surgical drainage catheter terminating in the right upper quadrant of the abdomen Right renal parenchymal atrophy. Left kidney demonstrates perinephric edema / stranding. No left hydronephrosis. Nasogastric tube projects towards the distal stomach. Moderate distention small bowel loops. Rectal catheter. Moderate distention of the large bowel loops. Normal appendix. Abdominal aorta normal in caliber. Small amount of ascites fluid/ mesenteric edema. Bladder decompressed by Mora catheter. Soft tissue edema /anasarca. Mesenteric edema. Small amount of ascites fluid. The osseous structures are stable. IMPRESSION: Limited evaluation without contrast. Interval evacuation of the right upper quadrant hematoma. Surgicel within the resection cavity. No significant interval development of new hematoma. There are 2 radiopaque lap pads within the resection cavity . Findings reviewed with Dr. Ledesma at 11:51 a.m. on 01/30/2025 Perisplenic hematoma, similar to previous examination. Extensive bilateral pulmonary airspace consolidation, significantly increased from previous examination. Small bilateral pleural effusions. Right upper quadrant drainage catheter. Pneumoperitoneum. Soft tissue edema / anasarca. Small amount of ascites fluid/ mesenteric edema. Extensive edema within the anterior chest, neck region. Heterogeneous appearance thyroid gland. Other findings as described. CT of the head revealed: IMPRESSION: 1. No evidence of acute intracranial abnormality. Repeat CT of head revealed: FINDINGS: Cerebellar tonsilar herniation. There is sulcal and ventricular effacement. The basal cisterns are effaced. Loss of mario-white matter differentiation is noted. The skull and visible facial bones are intact. The paranasal sinuses, mastoid air cells and middle ear cavities are well-aerated. The soft tissues of the scalp are unremarkable. IMPRESSION: Diffuse cerebral edema with cerebellar tonsillar herniation. Recommend MRI brain for further evaluation. Repeat CT of head revealed: FINDINGS: There is diffuse low attenuation throughout the brain with increased effacement of the ventricles and complete sulcal effacement. There is cerebellar tonsillar herniation. The orbits are normal. There is moderate mucosal thickening within the paranasal sinuses and mastoid air cells. The soft tissues and osseous structures appear within normal limits. IMPRESSION: 1. Findings as above suggesting worsening diffuse cerebral edema in the setting of anoxic brain injury in the given clinical setting. Further clinical correlation is suggested. CT of Neck revealed: IMPRESSION: Limited evaluation without contrast. Extensive soft tissue edema within the neck extending into the anterior / upper chest and anterior mediastinum . Retropharyngeal edema. Heterogeneous appearance of the thyroid gland. Inferior cerebellar tonsillar herniation better seen on the prior CT Renal Ultrasound revealed: IMPRESSION: 1. Right kidney not visible. 2. Left kidney is enlarged. 3. No hydronephrosis. Venous duplex of lower ext revealed: IMPRESSION: NO SONOGRAPHIC EVIDENCE FOR DEEP VENOUS THROMBOSIS IN THE RIGHT LOWER EXTREMITY VEINS. Repeat (bilateral) Venous duplex of lower ext revealed: Impression: 1. No right or left femoropopliteal venous thrombosis. EEG reported: This is a remarkably abnormal EEG, this EEG seen in severe cerebral dysfunction due to metabolic/hypoxic encephalopathy or medication effects, unless this is caused by reversible etiology, this EEG is suggestive of a poor prognosis for meaningful recovery, please correlate clinically. Arrival EKG revealed sinus tachycardia with nonspecific ST-T changes Tele reveals sinus tachycardia Echocardiogram revealed: Technically limited study secondary to poor acoustic windows. Left ventricle: Left ventricle was normal-sized with normal systolic function. LVEF was 55-60%. No gross wall motion abnormality was seen. Right ventricle was mildly dilated with normal systolic function. Left atrium was normal-sized. Right atrium was mildly dilated. Aortic valve: Aortic valve was not well visualized. There was no aortic insufficiency/stenosis. There was no mitral regurgitation. There was trace tricuspid regurgitation. Pulmonary valve was not well visualized. IVC was not visualized. Right ventricular systolic pressure was assessed around 48 mm Hg. There was no pericardial effusion. Patient is a 24-year-old gentleman who presented with post arrest. It seems that the patient had hemorrhagic (intra-abdominal) presentation. Patient did have elective laparoscopic cholecystectomy the day before presentation. On the day of presentation, the patient was taken back to operating room and this time Laparotomy was done for hepatic hematoma. Patient does have multiorgan involvement. Clinically there is no brainstem reflexes. Shock liver/acute renal failure is considered. Troponin has been high. EKG did not reveal any STEMI. Presentation could be high troponin secondary to demand physiology. Patient does not have any risk factors for baseline coronary artery disease. In ideal scenario, ischemic workup/cardiac catheterization could be more revealing. Unfortunately, the patient does have acute renal failure which could be worsened by cardiac catheterization at this point. As there was no higher brain functions the suggestion is to wait and see if patient regains any higher brain function. It is of note that during cardiac catheterization, the patient may need some anticoagulation/antiplatelets. At this point patient is having significant anemia/bleeding and receiving blood transfusion and holding off of scenario forcing Anticoagulation/antiplatelets is advised. I had a long discussion with family members and Mother (repeatedly). Clinically patient has multiorgan failure. Secondary to active bleeding, we will avoid anticoagulation/antiplatelets for now. Being managed in ICU. Was taken to OR repeatedly. Still no reflexes. Echocardiogram revealed no WMA and also revealed good EF. It also revealed increased Pulmonary Artery Pressure in favor of component of Pulmonary Hypertension. Review of Echo images revealed good right ventricular systolic function. Not typical for Pulmonary Emboli. Still, PE cannot be ruled out. If PE is ruled out, then it is possible that patient had Pulmonary Hypertension from before (Baseline history of Asthma may actually reflect it). s/p PRBC transfusion (multiple). Being followed by Surgery, Nephrology, Hematology, Pulmonary, Neurology and GI. . Repeat imaging revealed cerebellar tonsillar herniation. Neurology diagnosed Hypoxic/Metabolic Encephalopathy also. EEG findings question meaningful recovery. Neurology declared patient: brain . Neurology second opinion was in favor of Anoxic/Hypoxic Encephalopathy. Repeat imaging of brain revealed worsening diffuse cerebral edema and also again revealed cerebellar tonsillar herniation. Family are contemplating Trach/PEG. Patient is seen by GI. s/p Tracheostomy. s/p PEG. s/p repeated PRBC transfusion. On pressure support. s/ p Arrest Intra-abdominal bleeding Hepatic hematoma Multiorgan failure, due to shock Shock liver Lactic Acidosis Acute renal failure Acute respiratory failure, on vent support Status post laparotomy Status post laparoscopic cholecystectomy Abnormal troponin, evaluated to reflect possible demand physiology History of gallstones History of asthma Obesity History of marijuana abuse Consumptive Coagulopathy / DIC Pulmonary Hypertension Cerebellar tonsillar Herniation. Encephalopathy, hypoxic/metabolic Renal failure, started on hemodialysis Brain scan questions brain Anoxic Encephalopathy s/p Tracheostomy s/p PEG Hypotension, Cardiac suggestion for management: Manage in ICU Follow-up electrolytes and kidney function tests and correct abnormalities Evaluation and management of respiratory failure as per Pulmonary Evaluation and management of Cerebellar tonsillar herniation and worsening cerebral edema as per Neurology/surgery/primary team V/Q scan could not be completed Anoxic/Hypoxic Encephalopathy Echocardiogram revealed no WMA and also revealed good EF. It also revealed increased Pulmonary Artery Pressure in favor of component of Pulmonary Hypertension. Hematology follow up (to comment on prophylaxis / treatment of Pulmonary Emboli) Surgical follow up Nephrology follow up (started on hemodialysis) and Hematology follow up Patient is seen by GI On Midodrine IV pressure support (Vasopressin) to keep MAP above 55: if needed DVT prophylaxis as per primary team (compression stocking Vs Lovenox..) Long-term prognosis depends on the above and most importantly regaining of the higher brain function: looks very grim Ischemic workup may be considered only after regaining higher brain function or any special change in clinical presentation Further evaluation and management depends on the above and clinical course A total of 75 minutes was spent reviewing the patient record, examining the patient, making a diagnostic and therapeutic plan, discussing this plan with medical personnel, following up on diagnostic studies and following the patient for clinical stability excluding any and all procedures. At least 50% of this time was spent in direct, [id number] contact. Thank you for allowing me to participate in this patient's care. Further recommendations will depend on patient's clinical course. Please do not hesitate to contact me if you have any questions or concerns. This medical document was created using electronic medical record system with [employer] computerized dictation system. Although this document has been carefully reviewed, there may still be some phonetic and typographical errors. These areas are purely typographical due to the imperfection of the software programs, and do not reflect any compromise in the patient's medical care. Dietary Evaluation Review Recommendations by RD: PPN/TPN Comments: 1) Increase TPN rate to meet at least 75% of estimated daily needs 2) Advance to renal cardiac diet when medically feasible, pending ST approval 3) Follow-up with cardiology, pulmonology, nephrology, neurology, and gastroenterology 4) Continue to monitor I&O, labs, and skin integrity Expected Outcomes/Goals: 1) nutritional support to meet at least 75% of estimated daily needs 2) labs and wound to improve 3) diet to advance 4) gradual wt loss 5) f/u in 2-3 days Plan discussed with: Other (nurse) KATHLEEN COHEN MD Feb 28, 2025 08:27
--- NOTE | 2025-02-28 08:31 | DVHPN2 ---
Progress Note Date Seen: Feb 28, 2025 Has the PT tested + for MRSA If YES, has PT been informed?: No Medical Necessity Reason Pt with a Central, PICC or Fol: Yes The following are medically ne: Mora Catheter Reason for mora catheter: Nakul. Abd Surgery, Strict I&O, Total Immobilization Subjective Review of Systems Per RN, No significant changes overnight. Remains off vasopressors. TF initiated at 10 mL/hr. No RV. Continues having BM Objective vital signs Vital Sign Date Time Temp Pulse Resp B/P (MAP) Pulse Ox O2 Delivery O2 Flow Rate FiO2 02/28/25 07:45 70 11 107/72 (84) 100 40 02/28/25 07:00 96.4 205.5 02/28/25 06:00 Mechanical Ventilator+ Total Intake and Output 02/27/25 02/27/25 02/28/25 15:00 23:00 07:00 Intake Total 404 ml 536 ml 424 ml Output Total 350 ml 800 ml Balance 404 ml 186 ml -376 ml medications Current Medications Medications Dose Ordered Sig/Serenity Route Start Time Stop Time Status Last Admin Dose Admin Levalbuterol HCl 0.625 mg Q4HR PRN NEB 01/29/25 20:00 02/27/25 18:02 0.625 MG Ipratropium [place] 0.5 mg Q4HPRN PRN NEB 01/29/25 20:00 02/27/25 18:02 0.5 MG Sodium Chloride 10 ml QSHIFT@10,22 IV 02/04/25 22:00 02/27/25 21:34 10 ML Artificial Tears 1 drop Q4HP PRN EACHEYE 02/08/25 07:30 02/27/25 12:47 1 DROP Epoetin Gunnar-epbx 8,000 unit MWF@2100 SC 02/17/25 21:00 02/26/25 22:30 8,000 UNIT Piperacillin Sod/ Tazobactam Sod 50 ml @ 12.5 mls/hr Q8H IV 02/23/25 10:00 02/28/25 01:30 12.5 MLS/HR Pantoprazole Sodium 40 mg DAILY IV 02/24/25 10:00 02/27/25 09:19 40 MG Metoclopramide HCl 5 mg Q6HR IV 02/24/25 00:00 02/28/25 05:31 5 MG Norepinephrine Bitartrate 250 ml @ 3.75 mls/hr Q24H IV 02/24/25 08:45 02/24/25 07:30 3.75 MLS/HR Erythromycin 250 mg Q6HR PO 02/24/25 18:00 02/28/25 05:31 250 MG Amino Acids 0 ml @ 0 mls/hr PER PHARMACY IV 02/24/25 21:00 Amino Acids/ Electrolytes/ Dextrose 1,000 ml @ 42 mls/hr DAILY@2200 IV 02/24/25 22:00 02/27/25 21:34 42 MLS/HR Enteral Nutritional Formula 1,000 ml 1000 GT 02/25/25 10:00 02/28/25 05:55 1,000 ML Diagnostic Test (Pha) 1 strip Q6HR 02/25/25 18:00 02/28/25 05:31 1 STRIP Insulin Human Regular FOLLOW SLIDING SCALE Q6HR SC 02/25/25 18:00 Dextrose 50 ml UD IV 02/25/25 18:00 Midodrine 10 mg TID@0600,1200,1800 PO 02/27/25 06:00 02/28/25 05:31 10 MG Vasopressin 20 units/Sodium Chloride 100 ml @ 3 mls/hr Q24H IV 02/27/25 09:00 Examination Neuro. Unchanged. Dilated fixed pupils. No reflexes. Pt has been moving for last 1-2 weeks. Do not seem purposeful. Mother and brother been made aware that these movements are likely involuntary and prognosis remains unchanged. Family taking this as a sign of improvement and remain hopeful he will recover. CV. HR 60s BP 106/69. Off pressors.Previous LSCV HD catheter site C/D/I. Right PC and PICC catheter exit sites remain C/D/I. Pulmonary: Tracheostomy in place. No active bleeding. C/D/I. Mechanical ventilator support 550/10/35%/+7. RR 10/min on vent display. GI: Soft, obese, nondistended and non tender. Incisions and dressing C/D/I. PEG in place. No further bleeding from PEG. TF at mL/hr. Tolerating so far . Mora catheter in place. Clear yellow urine in collection bag Extremities. No edema Mild orbital edema Skin: Nearly resolved jaundice. laboratory and microbiology Laboratory Tests 02/28/25 03:07 Test 02/28/25 03:07 Range/Units Serum Glucose 85 74-106 mg/dL Microbiology Date/Time Source Procedure Growth Status 02/22/25 21:21 Urine - Mora Port Urine Culture - Final Complete 02/20/25 09:30 Blood Blood Culture - Final NO GROWTH AFTER 5 DAYS OF INCUBATION. Complete 02/19/25 11:44 Trachea Gram Stain - Final Complete 02/19/25 11:44 Respiratory Culture - Final Klebsiella pneumoniae Complete 01/29/25 10:43 Sputum Gram Stain - Final Complete 01/29/25 10:43 Sputum Respiratory Culture - Final Complete Labs and/or images reviewed: Labs reviewed by me, Image(s) reviewed by me Problem List/Assessment/Plan Problems(with codes): (1) ARF (acute renal failure) (2) Ventilator dependent (3) Tonsillar hernia into foramen magnum (4) Cerebral edema (5) Cerebral edema due to anoxia (6) Cardiopulmonary arrest with successful resuscitation (7) 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 CT revealed cerebral edema and tonsillar herniation.EEG no electric activity. Cerebral perfusion study confirmed no perfusion radiographically consistent with brain which was concordant with initial clinical diagnosis and EEG. However, pt continues demonstrating brainstem function as he is breathing over vent set rate. Fluctuating HR, RR, BP and temperature. Could be secondary to autonomic dysfunction. F/U (3rd) CT brain worsening cerebral edema and tonsillar herniation. CV:Hemodynamically labile. Vasopressin as needed. Normal HR. Possible autonomic dysfunction. Continue Midodrine to 10 mg via PEG TID. Cardiology assistance appreciated. Mechanical DVT prophylaxis.Pulmonary hypertension possibly unknowingly preexistent. Duplex negative for DVT Pulmonary: VDRF. S/p tracheostomy. O2 Sta 100%. Continue ventilator. Sputum Cx Klebsiella pneumoniae sensitive to Zosyn. Anticipated D/C date 03/05. Continue ventilator support. Appreciate pulmonary medicine assistance. Pulmonary medicine following. GI: Continue BID GI prophylaxis. Continuously improving LFTs. Decreasing TB. Possible TPN related cholestasis. Vital AF at 10 mL/hr. measure RV q 6 hrs, hold if >150 mL.. Erythromycin as prokinetic.Continue Clinimix for now. Continues having BM. Several AXR negative for ielus or SBO. : ARF/ATN. Strict I&O. Mora to gravity. Appreciate nephrology assistance. Replace/correct electrolytes, and HD per nephrology. Clinimix at 42 mL/hr. Heme/ID: WBC 18, I do not believe it is a true value as Hgb also increased by nearly a point without any transfusion. All Cx negative besides respiratory culture with Klebsiella PNA, which continues under Tx. Hgb 9.4. UCx final negative. Minimizing blood draw frequency to avoid worsening anemia. Repeat labs AM. Appreciate hematology assistance. Continue Zosyn for Klebsiella pneumoniae PNA, D/C date 03/05. Endocrine: Tight glycemic control. Cortisol level normal. TSH normal, T3 and T4 low. ? Hypothyroidism. Asked RN to contact IM for evaluation and possible treatment today. Skin: Skin care and pressure ulcer precautions. Stable for txfr to subacute rehab or LTAC Plan discussed with: Other (RN) My Orders My Orders Orders - JITENDRA ZAMORA MD Procedure Category Date Status Time * Conveyor Mechanic CONS 02/27/25 Transmitted Consult Chest Portable XY 02/28/25 Resulted 04:00 Abg W/ Co-Ox RT 02/27/25 Logged 19:15 Abg W/ Co-Ox RT 02/28/25 Logged 05:19 Dietary Evaluation Review Recommendations by RD: PPN/TPN Comments: 1) Increase TPN rate to meet at least 75% of estimated daily needs 2) Advance to renal cardiac diet when medically feasible, pending ST approval 3) Follow-up with cardiology, pulmonology, nephrology, neurology, and gastroenterology 4) Continue to monitor I&O, labs, and skin integrity Expected Outcomes/Goals: 1) nutritional support to meet at least 75% of estimated daily needs 2) labs and wound to improve 3) diet to advance 4) gradual wt loss 5) f/u in 2-3 days JITENDRA ZAMORA MD Feb 28, 2025 08:31
--- NOTE | 2025-02-28 14:22 | DVHPNRES ---
Progress Note Date Seen: Feb 28, 2025 Resident Creating Document: ARNOLD MUHAMMAD RESZENENT Has the PT tested + for MRSA If YES, has PT been informed?: No Medical Necessity Reason Pt with a Central, PICC or Fol: Yes The following are medically ne: Mora Catheter Reason for mora catheter: Nakul. Abd Surgery, Strict I&O, Total Immobilization Subjective Review of Systems Patient seen and evaluated in bedside today. Patient currently on mechanical ventilation, vent setting peep 7, tidal volume 500, FiO2 55, respiratory rate 10. Labs reviewed. Objective vital signs Vital Sign Date Time Temp Pulse Resp B/P (MAP) Pulse Ox O2 Delivery O2 Flow Rate FiO2 02/28/25 14:15 78 10 148/103 (118) 99 40 02/28/25 07:00 96.4 205.5 02/28/25 06:00 Mechanical Ventilator+ Total Intake and Output 02/27/25 02/27/25 02/28/25 15:00 23:00 07:00 Intake Total 404 ml 536 ml 424 ml Output Total 350 ml 800 ml Balance 404 ml 186 ml -376 ml medications Current Medications Medications Dose Ordered Sig/Serenity Route Start Time Stop Time Status Last Admin Dose Admin Levalbuterol HCl 0.625 mg Q4HR PRN NEB 01/29/25 20:00 02/27/25 18:02 0.625 MG Ipratropium [place] 0.5 mg Q4HPRN PRN NEB 01/29/25 20:00 02/27/25 18:02 0.5 MG Sodium Chloride 10 ml QSHIFT@,22 IV 02/04/25 22:00 02/28/25 09:58 10 ML Artificial Tears 1 drop Q4HP PRN EACHEYE 02/08/25 07:30 02/27/25 12:47 1 DROP Epoetin Fiona-epbx 8,000 unit MWF@2100 SC 02/17/25 21:00 02/26/25 22:30 8,000 UNIT Piperacillin Sod/ Tazobactam Sod 50 ml @ 12.5 mls/hr Q8H IV 02/23/25 10:00 02/28/25 09:58 12.5 MLS/HR Pantoprazole Sodium 40 mg DAILY IV 02/24/25 10:00 02/28/25 09:57 40 MG Metoclopramide HCl 5 mg Q6HR IV 02/24/25 00:00 02/28/25 12:34 5 MG Norepinephrine Bitartrate 250 ml @ 3.75 mls/hr Q24H IV 02/24/25 08:45 02/28/25 13:19 3.75 MLS/HR Erythromycin 250 mg Q6HR PO 02/24/25 18:00 02/28/25 12:34 250 MG Amino Acids 0 ml @ 0 mls/hr PER PHARMACY IV 02/24/25 21:00 Amino Acids/ Electrolytes/ Dextrose 1,000 ml @ 42 mls/hr DAILY@2200 IV 02/24/25 22:00 02/27/25 21:34 42 MLS/HR Enteral Nutritional Formula 1,000 ml 1000 GT 02/25/25 10:00 02/28/25 05:55 1,000 ML Diagnostic Test (Pha) 1 strip Q6HR 02/25/25 18:00 02/28/25 12:28 1 STRIP Insulin Human Regular FOLLOW SLIDING SCALE Q6HR SC 02/25/25 18:00 Dextrose 50 ml UD IV 02/25/25 18:00 Midodrine 10 mg TID@0600,1200,1800 PO 02/27/25 06:00 02/28/25 12:34 10 MG Vasopressin 20 units/Sodium Chloride 100 ml @ 3 mls/hr Q24H IV 02/27/25 09:00 Examination General: RASS -5, afebrile, mucosae are moist Cardiovascular: Normal S1 and S2. No murmurs, gallops or rubs Respiratory: Mechanically assisted ventilation, equal bilateral airway entree. Clear lung sounds on auscultation Abdomen: Soft, nontender, no organomegaly, with surgical wound on abdomin MSK/skin: Mobilization of limbs cannot be evaluated. Skin is dry and warm. Neurological: Orientation cannot be assessed. Pupils are dilated and nonreactive to light, absent brainstem reflexes. laboratory and microbiology Laboratory Tests 02/28/25 03:07 Test 02/28/25 03:07 Range/Units Serum Glucose 85 74-106 mg/dL Microbiology Date/Time Source Procedure Growth Status 02/22/25 21:21 Urine - Mora Port Urine Culture - Final Complete 02/20/25 09:30 Blood Blood Culture - Final NO GROWTH AFTER 5 DAYS OF INCUBATION. Complete 02/19/25 11:44 Trachea Gram Stain - Final Complete 02/19/25 11:44 Respiratory Culture - Final Klebsiella pneumoniae Complete 01/29/25 10:43 Sputum Gram Stain - Final Complete 01/29/25 10:43 Sputum Respiratory Culture - Final Complete Labs and/or images reviewed: Labs reviewed by me, Image(s) reviewed by me Problem List/Assessment/Plan Problem List/Assessment/Plan This is a 24-year-old male with no significant past medical history underwent elective laparoscopic cholecystectomy on 01/28 at [facility] (due to cholelithiasis), on 2nd day postop at home became lethargic and subsequently coded. ROSC was achieved with CPR, abdominal CT scan showed intra-abdominal hematoma, underwent emergent laparotomy and drained about 500-750 thrombosed and dark blood. NEURO: Hypoxic encephalopathy, due to cardiac arrest Anoxic brain injury * RASS Score -5 * Head CT from 01/30 shows, Cerebellar tonsilar herniation. There is sulcal and ventricular effacement. The basal cisterns are effaced. Loss of mario-white matter differentiation is noted. * Head CT on 02/11 shows worsening diffuse cerebral edema in the setting of anoxic brain injury * BRNNM-brain imaging, shows absence blood flow, findings suggest brain in the appropriate clinical setting * Plan: transfering to LTAC CARDIOVASCULAR: NSTEMI possible type 2 Status post cardiac arrest Distributive shock (vasoplegia)/neurogenic shock/septic shock vasopressin * Cardiology on the board, recommended medical management * Echo from 01/30 shows,Technically limited study secondary to poor acoustic windows, normal LV size and function, 55-60% * Plan: Levophed, midodrine 10 mg t.i.d. hydrocortisone 50 mg q.6 hours PULMONARY: Acute hypoxic respiratory failure, likely due to anoxic brain injury Cxr showed bilateral mild pulmonary vascular congestion GASTROINTESTINAL: Acute transaminitis secondary to hypovolemic shock Coagulopathy Hypoalbuminemia Status post laparoscopic cholecystectomy Status post exploratory laparotomy for hemoperitoneum Transaminitis, likely due to TPN GENITOURINARY: HARLEEN secondary to hypovolemic shock * Nephrology on the board, performed dialysis on 02/03 * IV Bumex 2 mg b.i.d. METABOLIC: Severe anion gap metabolic acidosis due to lactic acidosis Hypernatremia Grade 2 obesity, BMI 35.7 kg per m2 Hypoglycemia HEME: Severe anemia, due to bleeding * Received 3 units of PRBC, 2 units of FFP and 1 unit of cryoprecipitate * Monitor H&H and epoetin fiona INFECTIOUS DISEASE: Leucocytosis Lactic acidosis * Urine culture, blood culture and respiratory culture shows no growth * On Zosyn DIET: TPN DVT prophylax: Hold GI prophylaxis: Protonix Code status: Full code LINES/DRAINS/ACCESS: ETT: Intubated on 01/29 IV access: Lt IJ placed on 01/29/25 left subclavian, tunneled dialysis catheter placed on 02/14 Drips: On Levophed Mora catheter: Placed on 01/29 DISPOSITION: ICU status Patient's status discussed with the patient's mother at the bedside. Critical care time spent more than 57 minutes, including patient care, chart review, and updating the family. Excluding any procedures. Case discussed with Dr. Kay Plan discussed with: Patient, Other (RN) Dietary Evaluation Review Recommendations by RD: PPN/TPN Comments: 1) Increase TPN rate to meet at least 75% of estimated daily needs 2) Advance to renal cardiac diet when medically feasible, pending ST approval 3) Follow-up with cardiology, pulmonology, nephrology, neurology, and gastroenterology 4) Continue to monitor I&O, labs, and skin integrity Expected Outcomes/Goals: 1) nutritional support to meet at least 75% of estimated daily needs 2) labs and wound to improve 3) diet to advance 4) gradual wt loss 5) f/u in 2-3 days ARNOLD MUHAMMAD Feb 28, 2025 14:22
[2025-02-28] MEDS: VASOPRESSIN 20 UNITS in SODIUM CHL 0.9% 99 ML IV SCH (17:30)
[2025-02-28] MEDS ORDERED: NOREPINEPHRINE 8 MG/250ML KIT 250 ML IV SCH (17:30)
--- NOTE | 2025-02-28 17:32 | DVHPN2 ---
Progress Note Date Seen: Feb 28, 2025 Has the PT tested + for MRSA If YES, has PT been informed?: No Medical Necessity Reason Pt with a Central, PICC or Fol: Yes The following are medically ne: Mora Catheter Reason for mora catheter: Nakul. Abd Surgery, Strict I&O, Total Immobilization Subjective Review of Systems Pt's mother and brother at the bedside. Per RN, he became hypotensive during HD, which has been occasionally occurring. He continues tolerating TF with 10 mL RV. Had another large BM. Objective vital signs Vital Sign Date Time Temp Pulse Resp B/P (MAP) Pulse Ox O2 Delivery O2 Flow Rate FiO2 02/28/25 16:41 67 10 85/55 99 40.0 02/28/25 15:53 40 02/28/25 15:30 97.4 97.4 02/28/25 06:00 Mechanical Ventilator+ Total Intake and Output 02/27/25 02/27/25 02/28/25 15:00 23:00 07:00 Intake Total 404 ml 536 ml 466 ml Output Total 350 ml 800 ml Balance 404 ml 186 ml -334 ml medications Current Medications Medications Dose Ordered Sig/Serenity Route Start Time Stop Time Status Last Admin Dose Admin Levalbuterol HCl 0.625 mg Q4HR PRN NEB 01/29/25 20:00 02/27/25 18:02 0.625 MG Ipratropium [place] 0.5 mg Q4HPRN PRN NEB 01/29/25 20:00 02/27/25 18:02 0.5 MG Sodium Chloride 10 ml QSHIFT@10,22 IV 02/04/25 22:00 02/28/25 09:58 10 ML Artificial Tears 1 drop Q4HP PRN EACHEYE 02/08/25 07:30 02/27/25 12:47 1 DROP Epoetin Gunnar-epbx 8,000 unit MWF@2100 SC 02/17/25 21:00 02/26/25 22:30 8,000 UNIT Piperacillin Sod/ Tazobactam Sod 50 ml @ 12.5 mls/hr Q8H IV 02/23/25 10:00 02/28/25 09:58 12.5 MLS/HR Pantoprazole Sodium 40 mg DAILY IV 02/24/25 10:00 02/28/25 09:57 40 MG Metoclopramide HCl 5 mg Q6HR IV 02/24/25 00:00 02/28/25 12:34 5 MG Norepinephrine Bitartrate 250 ml @ 3.75 mls/hr Q24H IV 02/24/25 08:45 02/28/25 13:19 3.75 MLS/HR Erythromycin 250 mg Q6HR PO 02/24/25 18:00 02/28/25 12:34 250 MG Amino Acids 0 ml @ 0 mls/hr PER PHARMACY IV 02/24/25 21:00 Amino Acids/ Electrolytes/ Dextrose 1,000 ml @ 42 mls/hr DAILY@2200 IV 02/24/25 22:00 02/27/25 21:34 42 MLS/HR Enteral Nutritional Formula 1,000 ml 1000 GT 02/25/25 10:00 02/28/25 05:55 1,000 ML Diagnostic Test (Pha) 1 strip Q6HR 02/25/25 18:00 02/28/25 12:28 1 STRIP Insulin Human Regular FOLLOW SLIDING SCALE Q6HR SC 02/25/25 18:00 Dextrose 50 ml UD IV 02/25/25 18:00 Midodrine 10 mg TID@0600,1200,1800 PO 02/27/25 06:00 02/28/25 12:34 10 MG Vasopressin 20 units/Sodium Chloride 100 ml @ 3 mls/hr Q24H IV 02/27/25 09:00 02/28/25 16:03 9 MLS/HR Examination Neuro. Unchanged. Dilated fixed pupils. No reflexes. Pt has been moving for last 1-2 weeks. Do not seem purposeful. Mother and brother been made aware that these movements are likely involuntary and prognosis remains unchanged. Family taking this as a sign of improvement and remain hopeful he will recover. CV. HR 70s BP 133/100. Vasopressin 0..03 and Levophed 2 mcg/kg. Levophed decreased. .Previous LSCV HD catheter site C/D/I. Right PC and PICC catheter exit sites remain C/D/I. Pulmonary: Tracheostomy in place. No active bleeding. C/D/I. Mechanical ventilator support 550/10/35%/+7. RR 10/min on vent display. GI: Soft, obese, nondistended and non tender. Incisions and dressing C/D/I. PEG in place. No further bleeding from PEG. TF at 10 mL/hr. Continues tolerating . Mora catheter in place. Clear yellow urine in collection bag Extremities. No edema Mild orbital edema Skin: Nearly resolved jaundice laboratory and microbiology Laboratory Tests 02/28/25 03:07 Test 02/28/25 03:07 Range/Units Serum Glucose 85 74-106 mg/dL Microbiology Date/Time Source Procedure Growth Status 02/22/25 21:21 Urine - Mora Port Urine Culture - Final Complete 02/20/25 09:30 Blood Blood Culture - Final NO GROWTH AFTER 5 DAYS OF INCUBATION. 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 CT revealed cerebral edema and tonsillar herniation.EEG no electric activity. Cerebral perfusion study confirmed no perfusion radiographically consistent with brain which was concordant with initial clinical diagnosis and EEG. However, pt continues demonstrating brainstem function as he is breathing over vent set rate. Fluctuating HR, RR, BP and temperature. Could be secondary to autonomic dysfunction. F/U (3rd) CT brain worsening cerebral edema and tonsillar herniation. CV:Hemodynamically labile. Vasopressin as needed. Slowly wean Levophed first, then vasopressin. Normal HR. Possible autonomic dysfunction. Continue Midodrine to 10 mg via PEG TID. Cardiology assistance appreciated. Mechanical DVT prophylaxis.Pulmonary hypertension possibly unknowingly preexistent. Duplex negative for DVT Pulmonary: VDRF. S/p tracheostomy. O2 Sta 99%. Continue ventilator. Sputum Cx Klebsiella pneumoniae sensitive to Zosyn. Anticipated D/C date 03/05. Continue ventilator support. Appreciate pulmonary medicine assistance. Pulmonary medicine following. GI: Continue BID GI prophylaxis. Continuously improving LFTs. Decreasing TB. Possible TPN related cholestasis. Vital AF at 10 mL/hr. measure RV q 6 hrs, hold if >150 mL.. Erythromycin as prokinetic.Continue Clinimix for now. Continues having BM. Several AXR negative for ielus or SBO. : ARF/ATN. Strict I&O. Mora to gravity. Appreciate nephrology assistance. Replace/correct electrolytes, and HD per nephrology. Clinimix at 42 mL/hr. Heme/ID: WBC 18, I do not believe it is a true value as Hgb also increased by nearly a point without any transfusion. All Cx negative besides respiratory culture with Klebsiella PNA, which continues under Tx. Hgb 9.4. UCx final negative. Minimizing blood draw frequency to avoid worsening anemia. Repeat labs AM. Appreciate hematology assistance. Continue Zosyn for Klebsiella pneumoniae PNA, D/C date 03/05. Endocrine: Tight glycemic control. Cortisol level normal. TSH normal, T3 and T4 low. ? subclinical hypothyroidism. IM stated that normal TSH, no need for replacement therapy. Will attempt endocrinology consultation. Skin: Skin care and pressure ulcer precautions. Hold Txfr. C/W Dr. Patten accepting physician at [facility]. He was informed pt was unstable for transfer with increased vasopressor requirement. He will be monitored and wean as tolerated. He agreed to save the bed and discuss tomorrow. D/W Pt's mother and brother, even if stable, will consider transferring on low dose vasopressin to ensure a safe transfer. They understood and agreed. Plan discussed with: Other (Mother, brother and RN.) My Orders My Orders Orders - JITENDRA ZAMORA MD Procedure Category Date Status Time Chest Portable XY 02/28/25 Resulted 04:00 Abg W/ Co-Ox RT 02/27/25 Logged 19:15 Abg W/ Co-Ox RT 02/28/25 Logged 05:19 Magnesium LAB 03/01/25 Verified 05:00 Phosphorus LAB 03/01/25 Verified 05:00 Clinimix Per Pharmacy [facility] 02/28/25 In Process 22:00 Dietary Evaluation Review Recommendations by RD: PPN/TPN Comments: 1) Increase TPN rate to meet at least 75% of estimated daily needs 2) Advance to renal cardiac diet when medically feasible, pending ST approval 3) Follow-up with cardiology, pulmonology, nephrology, neurology, and gastroenterology 4) Continue to monitor I&O, labs, and skin integrity Expected Outcomes/Goals: 1) nutritional support to meet at least 75% of estimated daily needs 2) labs and wound to improve 3) diet to advance 4) gradual wt loss 5) f/u in 2-3 days JITENDRA ZAMORA MD Feb 28, 2025 17:32
[2025-02-28] MEDS: NOREPINEPHRINE 8 MG/250ML KIT 250 ML IV SCH (18:00)
--- NOTE | 2025-02-28 22:39 | DVHPN2 ---
Progress Note - Dictate Date Seen: Feb 28, 2025 Has the PT tested + for MRSA If YES, has PT been informed?: No Medical Necessity Reason Pt with a Central, PICC or Fol: Yes The following are medically ne: Mora Catheter Reason for mora catheter: Nakul. Abd Surgery, Strict I&O, Total Immobilization Subjective Mr. Gillis is a 24 years old gentleman with a history of asthma, gallstone, obesity, the patient was brought to the [facility] on 01/29/2025 with a chief complaint of witnessed cardiopulmonary arrest. I have seen and examined the patient, I have discussed with his nurse, he remained nonresponsive, no change in the neurologic physical examination He is on pressor drip because of hemodialysis related hypotension UDS, 01/29/2025 1616: Fentanyl, benzo Urinalysis, 01/29/2025: WBC: 1, urine leukocyte esterase: Negative ABG, 01/29/2025: Metabolic acidosis, 01/30/25: Metabolic acidosis VWF, 02/11/25: 380 WBC/HB/PLT/MCV, 01/29/2025: 20.1/8.3/234/107.4. 01/30/2025: 28.4/12.1/127/91.2, 02/24/2025: 10.2/10/417/89.6 PT/INR/PTT, 01/29/2025: 19.6/1.98/53.8. 01/30/2025: 13.6/1.32/28.7, 02/15/2025: 11.5/1.09/32.1, 02/24/25: 13/1.25/36.7 Na 01/29/2025: 146, 152, 01/30/2025: 147 BUN/CR, 01/30/2025: 29/4.34, 02/24/2025: 70/8.68 Lactic acid, 01/29/2025: 1749, 01/30/2025: 11.4 Troponin one high sensitivity, 01/29/2025: 2273, 4364, 7474 TBI/AST/ALT/AP, 01/29/2025: 1.3/676/700/136. 9/: 2.10/4635/2521/137 02/24/2025: 4.4/146/37/827 EEG, 02/01/2025: This is a remarkably abnormal EEG, this EEG seen in severe cerebral dysfunction due to metabolic/hypoxic encephalopathy or medication effects, unless this is caused by reversible etiology, this EEG is suggestive of a poor prognosis for meaningful recovery, please correlate clinically. CT head, 01/29/2025:No evidence of acute intracranial abnormality (I see signs suggestive of diffuse brain edema) CT head 01/30/2025: Diffuse cerebral edema with cerebellar tonsillar herniation. Recommend MRI brain for further evaluation. Critical Result: above finding CT head, 02/10/2025: Findings as above suggesting worsening diffuse cerebral edema in the setting of anoxic brain injury in the given clinical setting. Further clinical correlation is suggested. CT abdomen, pelvis, 01/29/2025: 1. Hepatic hematoma measuring up to approximately 8.6 cm in greatest dimension, as described above, with hemorrhage extending beyond the liver capsule and into the right pericolic gutter as well as into the pelvis. No definite active arterial bleeding is seen on this exam, although limited evaluation due to the timing of contrast, as this was not a CTA exam. 2. Postsurgical changes of cholecystectomy. 3. Dilated fluid-filled small bowel loops, may be due to postoperative ileus. No small bowel obstruction. 4. Small volume pneumoperitoneum, likely due to recent surgery. Small volume of gas are seen in the upper ventral abdomen from the recent surgery. 5. Dependent atelectasis in the lower lobes. Otherwise, no acute disease in the chest. 6. Endotracheal tube and enteric tube in place. 7. Atrophic right kidney incidentally noted. 8. Additional findings as described above Brain imaging flow, 02/03/2025: Findings described above, which would be consistent with brain in the appropriate clinical setting, however clinical correlation is needed. vital signs Vital Sign Date Time Temp Pulse Resp B/P (MAP) Pulse Ox O2 Delivery O2 Flow Rate FiO2 02/28/25 22:32 67 10 92/57 (69) 98 40 02/28/25 21:59 Mechanical Ventilator+ 02/28/25 20:00 97.8 97.8 02/28/25 16:41 40.0 Total Intake and Output 02/27/25 02/27/25 02/28/25 15:00 23:00 07:00 Intake Total 404 ml 536 ml 466 ml Output Total 350 ml 800 ml Balance 404 ml 186 ml -334 ml medications Current Medications Medications Dose Ordered Sig/Serenity Route Start Time Stop Time Status Last Admin Dose Admin Levalbuterol HCl 0.625 mg Q4HR PRN NEB 01/29/25 20:00 02/27/25 18:02 0.625 MG Ipratropium [place] 0.5 mg Q4HPRN PRN NEB 01/29/25 20:00 02/27/25 18:02 0.5 MG Sodium Chloride 10 ml QSHIFT@10,22 IV 02/04/25 22:00 02/28/25 20:48 10 ML Artificial Tears 1 drop Q4HP PRN EACHEYE 02/08/25 07:30 02/27/25 12:47 1 DROP Epoetin Gunnar-epbx 8,000 unit MWF@2100 SC 02/17/25 21:00 02/28/25 20:48 8,000 UNIT Piperacillin Sod/ Tazobactam Sod 50 ml @ 12.5 mls/hr Q8H IV 02/23/25 10:00 02/28/25 18:13 12.5 MLS/HR Pantoprazole Sodium 40 mg DAILY IV 02/24/25 10:00 02/28/25 09:57 40 MG Metoclopramide HCl 5 mg Q6HR IV 02/24/25 00:00 02/28/25 18:15 5 MG Erythromycin 250 mg Q6HR PO 02/24/25 18:00 02/28/25 18:59 250 MG Amino Acids 0 ml @ 0 mls/hr PER PHARMACY IV 02/24/25 21:00 Amino Acids/ Electrolytes/ Dextrose 1,000 ml @ 42 mls/hr DAILY@2200 IV 02/24/25 22:00 02/28/25 20:46 42 MLS/HR Enteral Nutritional Formula 1,000 ml 1000 GT 02/25/25 10:00 02/28/25 05:55 1,000 ML Diagnostic Test (Pha) 1 strip Q6HR 02/25/25 18:00 02/28/25 18:16 1 STRIP Insulin Human Regular FOLLOW SLIDING SCALE Q6HR SC 02/25/25 18:00 Dextrose 50 ml UD IV 02/25/25 18:00 Midodrine 10 mg TID@0600,1200,1800 PO 02/27/25 06:00 02/28/25 18:15 10 MG Vasopressin 20 units/Sodium Chloride 100 ml @ 3 mls/hr Q24H IV 02/28/25 17:30 Norepinephrine Bitartrate 250 ml @ 1.875 mls/ hr Q24H IV 02/28/25 18:00 objective The patient is well-nourished and well-developed with no distress MENTAL STATUS: Subjective CRANIAL NERVES: Pupils are equal, round, dilated and fixed. There are no corneal reflexes, no doll's eyes phenomenon. No signs of facial weakness. There are no gagging or coughing reflexes SENSATION: No responses to pain stimuli. MOTOR: Normal tone in the upper and lower extremity. Normal muscle bulk. No fasciculations. No spontaneous movement. REFLEXES: Deep tendon reflexes are symmetrical. No pathological reflexes. CEREBELLAR/COORDINATION: Deferred GAIT/STATION: deferred. laboratory and microbiology Laboratory Tests 02/28/25 03:07 Test 02/28/25 03:07 Range/Units Serum Glucose 85 74-106 mg/dL Problem List Cardiopulmonary arrest Status post CPR Coma Hypoxic encephalopathy Metabolic encephalopathy Diffuse brain edema Brain herniation Hepatic hematoma Sepsis Septic shock Hypovolemic shock Liver failure Acute kidney failure Anemia Assessment/Plan Monitoring Supportive treatment Follow-up labs ICU care Respiratory support/vent management Stabilize vitals/pressor drip p.r.n. Oxygen IV antibiotics GI prophylaxis Surgery on case Infectious disease on case Cardiology on case Nephrology on case Pulmonolog on case More recommendation per clinical course He likely has a poor prognosis for meaningful/overall recovery This medical document was created using an electronic medical record system with [employer] dictation system. Although this document has been carefully reviewed, there may still be some phonetic and typographical errors. These areas are purely typographical due to imperfections of the software programs, and do not reflect any compromise in the patient's medical care. More recommendation per clinical course Prognosis Guarded Dietary Evaluation Review Recommendations by RD: PPN/TPN Comments: 1) Increase TPN rate to meet at least 75% of estimated daily needs 2) Advance to renal cardiac diet when medically feasible, pending ST approval 3) Follow-up with cardiology, pulmonology, nephrology, neurology, and gastroenterology 4) Continue to monitor I&O, labs, and skin integrity Expected Outcomes/Goals: 1) nutritional support to meet at least 75% of estimated daily needs 2) labs and wound to improve 3) diet to advance 4) gradual wt loss 5) f/u in 2-3 days Plan discussed with: Other ALONZO MILLARD MD Feb 28, 2025 22:39
[2025-03-01] VITALS (107 sets, daily range): BP systolic 77–111; BP diastolic 35–82; PULSE 61–76; RESP 10–12; TEMP 97.1–98.6; O2SAT 97–100
[2025-03-01 04:25] LABS: Hematocrit 25.1 % (41.0-53.0); Hemoglobin 8.4 g/dL (13.5-17.5); Mean Corpuscular Hemoglobin 29.1 pg (28.0-32.0); Mean Corpuscular Volume 87.2 fL (80.0-100.0); Nucleated Red Blood Cells % 0.3 %
[2025-03-01 04:38] LABS: Alanine Aminotransferase 29 U/L (7-40); Anion Gap 16 (5-15); BUN/Creatinine Ratio 11.2 (10.0-20.0); Carbon Dioxide 25 mmol/L (20-31); Chloride 99 mmol/L (98-107); Glucose 84 mg/dL (74-106); Sodium 140 mmol/L (136-145)
[2025-03-01 04:39] LABS: Magnesium 1.9 mg/dL (1.6-2.6); Total Protein 6.7 g/dL (5.7-8.2)
[2025-03-01 04:40] LABS: Albumin 3.5 g/dL (3.2-4.8)
[2025-03-01 04:43] LABS: Alkaline Phosphatase 302 U/L (46-116); Bilirubin, Total 1.4 mg/dL (0.2-1.0); Blood Urea Nitrogen 62 mg/dL (9-23); Calcium 7.9 mg/dL (8.7-10.4); Potassium 3.0 mmol/L (3.5-5.1)
--- NOTE | 2025-03-01 07:18 | DVHPN2 ---
Progress Note Date Seen: Mar 01, 2025 Has the PT tested + for MRSA If YES, has PT been informed?: No Medical Necessity Reason Pt with a Central, PICC or Fol: Yes The following are medically ne: Mora Catheter Reason for mora catheter: Nakul. Abd Surgery, Strict I&O, Total Immobilization Subjective Review of Systems Per RN, pt had been stable, off pressors. However, remains slightly labile. Currently on Vaopressin 0.2 mcg. Had high RV, which is a common occurrence. Once he requires vasopressor support (even minimal dosage, he develops intolerance.) TF on hold. Objective vital signs Vital Sign Date Time Temp Pulse Resp B/P (MAP) Pulse Ox O2 Delivery O2 Flow Rate FiO2 03/01/25 06:45 64 10 96/63 (74) 100 03/01/25 06:25 40 03/01/25 06:00 Mechanical Ventilator+ 03/01/25 04:00 97.7 97.7 02/28/25 16:41 40.0 Total Intake and Output 02/28/25 02/28/25 03/01/25 15:00 23:00 07:00 Intake Total 411.5 ml 762.975 ml 471 ml Output Total 550 ml 400 ml Balance 411.5 ml 212.975 ml 71 ml medications Current Medications Medications Dose Ordered Sig/Serenity Route Start Time Stop Time Status Last Admin Dose Admin Sodium Chloride 10 ml QSHIFT@10,22 IV 02/04/25 22:00 02/28/25 20:48 10 ML Artificial Tears 1 drop Q4HP PRN EACHEYE 02/08/25 07:30 02/27/25 12:47 1 DROP Epoetin Gunnar-epbx 8,000 unit MWF@2100 SC 02/17/25 21:00 02/28/25 20:48 8,000 UNIT Piperacillin Sod/ Tazobactam Sod 50 ml @ 12.5 mls/hr Q8H IV 02/23/25 10:00 03/01/25 02:42 12.5 MLS/HR Pantoprazole Sodium 40 mg DAILY IV 02/24/25 10:00 02/28/25 09:57 40 MG Metoclopramide HCl 5 mg Q6HR IV 02/24/25 00:00 03/01/25 05:34 5 MG Erythromycin 250 mg Q6HR PO 02/24/25 18:00 03/01/25 05:34 250 MG Amino Acids 0 ml @ 0 mls/hr PER PHARMACY IV 02/24/25 21:00 Amino Acids/ Electrolytes/ Dextrose 1,000 ml @ 42 mls/hr DAILY@2200 IV 02/24/25 22:00 02/28/25 20:46 42 MLS/HR Enteral Nutritional Formula 1,000 ml 1000 GT 02/25/25 10:00 02/28/25 05:55 1,000 ML Diagnostic Test (Pha) 1 strip Q6HR 02/25/25 18:00 03/01/25 05:34 1 STRIP Insulin Human Regular FOLLOW SLIDING SCALE Q6HR SC 02/25/25 18:00 Dextrose 50 ml UD IV 02/25/25 18:00 Midodrine 10 mg TID@0600,1200,1800 PO 02/27/25 06:00 03/01/25 05:34 10 MG Vasopressin 20 units/Sodium Chloride 100 ml @ 3 mls/hr Q24H IV 02/28/25 17:30 03/01/25 02:43 9 MLS/HR Norepinephrine Bitartrate 250 ml @ 1.875 mls/ hr Q24H IV 02/28/25 18:00 Examination Neuro. Unchanged. Dilated fixed pupils. No reflexes. Pt has been moving for last 1-2 weeks. Do not seem purposeful. CV. HR 65-68s BP 101/64. Vasopressin 0.02 mcg/kg. Previous LSCV HD catheter site C/D/I. Right PC and PICC catheter exit sites remain C/D/I. Pulmonary: Tracheostomy in place. No active bleeding. C/D/I. Mechanical ventilator support 550/10/35%/+7. RR 10/min on vent display. GI: Soft, obese, nondistended and non tender. Incisions and dressing C/D/I. PEG in place. No further bleeding from PEG. TF on hold . Mora catheter in place. Clear yellow urine in collection bag Extremities. No edema Mild orbital edema Skin: Resolved jaundice laboratory and microbiology Laboratory Tests 03/01/25 03:45 Test 03/01/25 03:45 Range/Units Serum Glucose 84 74-106 mg/dL Microbiology Date/Time Source Procedure Growth Status 02/22/25 21:21 Urine - Mora Port Urine Culture - Final Complete 02/20/25 09:30 Blood Blood Culture - Final NO GROWTH AFTER 5 DAYS OF INCUBATION. Complete 02/19/25 11:44 Trachea Gram Stain - Final Complete 02/19/25 11:44 Respiratory Culture - Final Klebsiella pneumoniae Complete 01/29/25 10:43 Sputum Gram Stain - Final Complete 01/29/25 10:43 Sputum Respiratory Culture - Final Complete Labs and/or images reviewed: Labs reviewed by me Problem List/Assessment/Plan Problem List/Assessment/Plan Neuro: Appreciate neurology input and assistance. CT revealed cerebral edema and tonsillar herniation.EEG no electric activity. Cerebral perfusion study confirmed no perfusion radiographically consistent with brain which was concordant with initial clinical diagnosis and EEG. However, pt continues demonstrating brainstem function as he is breathing over vent set rate. Fluctuating HR, RR, BP and temperature. Could be secondary to autonomic dysfunction. F/U (3rd) CT brain worsening cerebral edema and tonsillar herniation. CV:Hemodynamically labile. Vasopressin as needed. Normal HR. Possible autonomic dysfunction. Continue Midodrine to 10 mg via PEG TID. Cardiology assistance appreciated. Mechanical DVT prophylaxis.Pulmonary hypertension possibly unknowingly preexistent. Duplex negative for DVT Pulmonary: VDRF. S/p tracheostomy. O2 Sta 100%. Continue ventilator. Sputum Cx Klebsiella pneumoniae sensitive to Zosyn. Anticipated D/C date 03/05 to complete 2 weeks of IV Abx. Continue ventilator support. Appreciate pulmonary medicine assistance. Pulmonary medicine following. GI: Continue BID GI prophylaxis. Continuously improving LFTs. Decreasing TB. Possible TPN related cholestasis. Vital AF at 10 mL/hr. measure RV q 6 hrs, hold if >150 mL.. Erythromycin as prokinetic.Continue Clinimix for now. Continues having BM. Several AXR negative for ielus or SBO. : ARF/ATN. Strict I&O. Mora to gravity. Appreciate nephrology assistance. Replace/correct electrolytes, and HD per nephrology. Clinimix at 42 mL/hr. Heme/ID: WBC 12. As expected lab error. Hgb 8.4 (stable). All Cx negative besides respiratory culture with Klebsiella PNA, which continues under Tx. UCx final negative. Minimizing blood draw frequency to avoid worsening anemia. Repeat labs AM. Appreciate hematology assistance. Continue Zosyn for Klebsiella pneumoniae PNA, D/C date 03/05 to complete 2 weeks. Endocrine: Tight glycemic control. Cortisol level normal. TSH normal, T3 and T4 low. ? subclinical hypothyroidism. IM stated that normal TSH, no need for replacement therapy. Skin: Skin care and pressure ulcer precautions. May transfer to Dr. Patten accepting physician at [facility]. Has not required increased vasopressor support. Minimal vasopressor support. Hemodynamic instability likely secondary to autonomic dysfunction. Assistance from all medical and nursing staff is greatly appreciated by family and myself. Plan discussed with: Other (RN) My Orders My Orders Orders - JITENDRA ZAMORA MD Procedure Category Date Status Time Clinimix Per Pharmacy [facility] 02/28/25 In Process 22:00 Sodium Chl 0.9% PHA 02/28/25 In Process (So... W/Vasopressin 17:30 Norepinephrine 8 PHA 02/28/25 In Process Mg/250ml Kit 18:00 Dietary Evaluation Review Recommendations by RD: PPN/TPN Comments: 1) Increase TPN rate to meet at least 75% of estimated daily needs 2) Advance to renal cardiac diet when medically feasible, pending ST approval 3) Follow-up with cardiology, pulmonology, nephrology, neurology, and gastroenterology 4) Continue to monitor I&O, labs, and skin integrity Expected Outcomes/Goals: 1) nutritional support to meet at least 75% of estimated daily needs 2) labs and wound to improve 3) diet to advance 4) gradual wt loss 5) f/u in 2-3 days JITENDRA ZAMORA MD Mar 01, 2025 07:18
[2025-03-01 08:32] LABS: Base Excess -0.8 mmol/L (-2.0-3.0)
[2025-03-01] MEDS: POTASSIUM CHLORIDE 40 MEQ, LIDOCAINE 1% (LOCAL ANESTH.) 4 ML in SODIUM CHL 0.9% 250 ML IV ONE (10:45)
--- NOTE | 2025-03-01 10:45 | DVHPN2 ---
Progress Note - Dictate Date Seen: Mar 01, 2025 Has the PT tested + for MRSA If YES, has PT been informed?: No Medical Necessity Reason Pt with a Central, PICC or Fol: Yes The following are medically ne: Mora Catheter Reason for mora catheter: Nakul. Abd Surgery, Strict I&O, Total Immobilization Subjective labile hemodynamics with dialysis 02/28 vital signs Vital Sign Date Time Temp Pulse Resp B/P (MAP) Pulse Ox O2 Delivery O2 Flow Rate FiO2 03/01/25 10:30 111/80 03/01/25 10:15 66 10 99 03/01/25 10:08 40 03/01/25 10:00 Mechanical Ventilator+ 03/01/25 08:00 97.1 97.1 02/28/25 16:41 40.0 Total Intake and Output 02/28/25 02/28/25 03/01/25 15:00 23:00 07:00 Intake Total 411.5 ml 762.975 ml 519 ml Output Total 550 ml 400 ml Balance 411.5 ml 212.975 ml 119 ml medications Current Medications Medications Dose Ordered Sig/Serenity Route Start Time Stop Time Status Last Admin Dose Admin Sodium Chloride 10 ml QSHIFT@10,22 IV 02/04/25 22:00 03/01/25 07:44 10 ML Artificial Tears 1 drop Q4HP PRN EACHEYE 02/08/25 07:30 02/27/25 12:47 1 DROP Epoetin Gunnar-epbx 8,000 unit MWF@2100 SC 02/17/25 21:00 02/28/25 20:48 8,000 UNIT Piperacillin Sod/ Tazobactam Sod 50 ml @ 12.5 mls/hr Q8H IV 02/23/25 10:00 03/01/25 07:44 12.5 MLS/HR Pantoprazole Sodium 40 mg DAILY IV 02/24/25 10:00 03/01/25 07:44 40 MG Metoclopramide HCl 5 mg Q6HR IV 02/24/25 00:00 03/01/25 05:34 5 MG Erythromycin 250 mg Q6HR PO 02/24/25 18:00 03/01/25 05:34 250 MG Amino Acids 0 ml @ 0 mls/hr PER PHARMACY IV 02/24/25 21:00 Amino Acids/ Electrolytes/ Dextrose 1,000 ml @ 42 mls/hr DAILY@2200 IV 02/24/25 22:00 02/28/25 20:46 42 MLS/HR Enteral Nutritional Formula 1,000 ml 1000 GT 02/25/25 10:00 02/28/25 05:55 1,000 ML Diagnostic Test (Pha) 1 strip Q6HR 02/25/25 18:00 03/01/25 05:34 1 STRIP Insulin Human Regular FOLLOW SLIDING SCALE Q6HR SC 02/25/25 18:00 Dextrose 50 ml UD IV 02/25/25 18:00 Midodrine 10 mg TID@0600,1200,1800 PO 02/27/25 06:00 03/01/25 05:34 10 MG Vasopressin 20 units/Sodium Chloride 100 ml @ 3 mls/hr Q24H IV 02/28/25 17:30 03/01/25 02:43 9 MLS/HR Norepinephrine Bitartrate 250 ml @ 1.875 mls/ hr Q24H IV 02/28/25 18:00 objective gen: intubated, unresponsive lungs: occ ronchi cvs: no rub ext: no edema laboratory and microbiology Laboratory Tests 03/01/25 03:45 Test 03/01/25 03:45 Range/Units Serum Glucose 84 74-106 mg/dL Assessment/Plan Problem List/Assessment/Plan 1) HARLEEN / ischemic ATN. 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 - will continue to monitor for signs of meaningful renal recovery - supplemental potassium Dietary Evaluation Review Recommendations by RD: PPN/TPN Comments: 1) Increase TPN rate to meet at least 75% of estimated daily needs 2) Advance to renal cardiac diet when medically feasible, pending ST approval 3) Follow-up with cardiology, pulmonology, nephrology, neurology, and gastroenterology 4) Continue to monitor I&O, labs, and skin integrity Expected Outcomes/Goals: 1) nutritional support to meet at least 75% of estimated daily needs 2) labs and wound to improve 3) diet to advance 4) gradual wt loss 5) f/u in 2-3 days Plan discussed with: JACINDA Moeller MD Mar 01, 2025 10:45
[2025-03-01] MEDS: CALCIUM GLUC 1,000mg/50ml-NS 50 ML IV ONE (12:19)
--- NOTE | 2025-03-01 12:33 | DVHPN2 ---
Progress Note - Dictate Date Seen: Mar 01, 2025 Has the PT tested + for MRSA If YES, has PT been informed?: No Medical Necessity Reason Pt with a Central, PICC or Fol: Yes The following are medically ne: Mora Catheter Reason for mora catheter: Nakul. Abd Surgery, Strict I&O, Total Immobilization Subjective Mr. Gillis is a 24 years old gentleman with a history of asthma, gallstone, obesity, the patient was brought to the [facility] on 01/29/2025 with a chief complaint of witnessed cardiopulmonary arrest. I have seen and examined the patient, I have discussed with his nurse, his mouth brother in the room. he remained nonresponsive, no change in the neurologic physical examination Blood pressure is better today, he still on vasopressor drip UDS, 01/29/2025 1616: Fentanyl, benzo Urinalysis, 01/29/2025: WBC: 1, urine leukocyte esterase: Negative ABG, 01/29/2025: Metabolic acidosis, 01/30/25: Metabolic acidosis VWF, 02/11/25: 380 WBC/HB/PLT/MCV, 01/29/2025: 20.1/8.3/234/107.4. 01/30/2025: 28.4/12.1/127/91.2, 02/24/2025: 10.2/10/417/89.6 PT/INR/PTT, 01/29/2025: 19.6/1.98/53.8. 01/30/2025: 13.6/1.32/28.7, 02/15/2025: 11.5/1.09/32.1, 02/24/25: 13/1.25/36.7 Na 01/29/2025: 146, 152, 01/30/2025: 147 BUN/CR, 01/30/2025: 29/4.34, 02/24/2025: 70/8.68 Lactic acid, 01/29/2025: 1749, 01/30/2025: 11.4 Troponin one high sensitivity, 01/29/2025: 2273, 4364, 7474 TBI/AST/ALT/AP, 01/29/2025: 1.3/676/700/136. 9/18/25: 2.10/4635/2521/137 02/24/2025: 4.4/146/37/827 EEG, 02/01/2025: This is a remarkably abnormal EEG, this EEG seen in severe cerebral dysfunction due to metabolic/hypoxic encephalopathy or medication effects, unless this is caused by reversible etiology, this EEG is suggestive of a poor prognosis for meaningful recovery, please correlate clinically. CT head, 01/29/2025:No evidence of acute intracranial abnormality (I see signs suggestive of diffuse brain edema) CT head 01/30/2025: Diffuse cerebral edema with cerebellar tonsillar herniation. Recommend MRI brain for further evaluation. Critical Result: above finding CT head, 02/10/2025: Findings as above suggesting worsening diffuse cerebral edema in the setting of anoxic brain injury in the given clinical setting. Further clinical correlation is suggested. CT abdomen, pelvis, 01/29/2025: 1. Hepatic hematoma measuring up to approximately 8.6 cm in greatest dimension, as described above, with hemorrhage extending beyond the liver capsule and into the right pericolic gutter as well as into the pelvis. No definite active arterial bleeding is seen on this exam, although limited evaluation due to the timing of contrast, as this was not a CTA exam. 2. Postsurgical changes of cholecystectomy. 3. Dilated fluid-filled small bowel loops, may be due to postoperative ileus. No small bowel obstruction. 4. Small volume pneumoperitoneum, likely due to recent surgery. Small volume of gas are seen in the upper ventral abdomen from the recent surgery. 5. Dependent atelectasis in the lower lobes. Otherwise, no acute disease in the chest. 6. Endotracheal tube and enteric tube in place. 7. Atrophic right kidney incidentally noted. 8. Additional findings as described above Brain imaging flow, 02/03/2025: Findings described above, which would be consistent with brain in the appropriate clinical setting, however clinical correlation is needed. vital signs Vital Sign Date Time Temp Pulse Resp B/P (MAP) Pulse Ox O2 Delivery O2 Flow Rate FiO2 03/01/25 12:05 65 10 93/52 (66) 99 40 03/01/25 10:00 Mechanical Ventilator+ 03/01/25 08:00 97.1 97.1 02/28/25 16:41 40.0 Total Intake and Output 02/28/25 02/28/25 03/01/25 15:00 23:00 07:00 Intake Total 411.5 ml 762.975 ml 519 ml Output Total 550 ml 400 ml Balance 411.5 ml 212.975 ml 119 ml medications Current Medications Medications Dose Ordered Sig/Serenity Route Start Time Stop Time Status Last Admin Dose Admin Sodium Chloride 10 ml QSHIFT@10,22 IV 02/04/25 22:00 03/01/25 07:44 10 ML Artificial Tears 1 drop Q4HP PRN EACHEYE 02/08/25 07:30 02/27/25 12:47 1 DROP Epoetin Gunnar-epbx 8,000 unit MWF@2100 SC 02/17/25 21:00 02/28/25 20:48 8,000 UNIT Piperacillin Sod/ Tazobactam Sod 50 ml @ 12.5 mls/hr Q8H IV 02/23/25 10:00 03/01/25 07:44 12.5 MLS/HR Pantoprazole Sodium 40 mg DAILY IV 02/24/25 10:00 03/01/25 07:44 40 MG Metoclopramide HCl 5 mg Q6HR IV 02/24/25 00:00 03/01/25 12:19 5 MG Erythromycin 250 mg Q6HR PO 02/24/25 18:00 03/01/25 12:19 250 MG Amino Acids 0 ml @ 0 mls/hr PER PHARMACY IV 02/24/25 21:00 Amino Acids/ Electrolytes/ Dextrose 1,000 ml @ 42 mls/hr DAILY@2200 IV 02/24/25 22:00 02/28/25 20:46 42 MLS/HR Enteral Nutritional Formula 1,000 ml 1000 GT 02/25/25 10:00 02/28/25 05:55 1,000 ML Diagnostic Test (Pha) 1 strip Q6HR 02/25/25 18:00 03/01/25 12:17 1 STRIP Insulin Human Regular FOLLOW SLIDING SCALE Q6HR SC 02/25/25 18:00 Dextrose 50 ml UD IV 02/25/25 18:00 Midodrine 10 mg TID@0600,1200,1800 PO 02/27/25 06:00 03/01/25 12:19 10 MG Vasopressin 20 units/Sodium Chloride 100 ml @ 3 mls/hr Q24H IV 02/28/25 17:30 03/01/25 02:43 9 MLS/HR Norepinephrine Bitartrate 250 ml @ 1.875 mls/ hr Q24H IV 02/28/25 18:00 objective The patient is well-nourished and well-developed with no distress MENTAL STATUS: Subjective CRANIAL NERVES: Pupils are equal, round, dilated and fixed. There are no corneal reflexes, no doll's eyes phenomenon. No signs of facial weakness. There are no gagging or coughing reflexes SENSATION: No responses to pain stimuli. MOTOR: Normal tone in the upper and lower extremity. Normal muscle bulk. No fasciculations. No spontaneous movement. REFLEXES: Deep tendon reflexes are symmetrical. No pathological reflexes. CEREBELLAR/COORDINATION: Deferred GAIT/STATION: deferred. laboratory and microbiology Laboratory Tests 03/01/25 03:45 Test 03/01/25 03:45 Range/Units Serum Glucose 84 74-106 mg/dL Problem List Cardiopulmonary arrest Status post CPR Coma Hypoxic encephalopathy Metabolic encephalopathy Diffuse brain edema Brain herniation Hepatic hematoma Sepsis Septic shock Hypovolemic shock Liver failure Acute kidney failure Anemia Assessment/Plan Monitoring Supportive treatment Follow-up labs ICU care Respiratory support/vent management Stabilize vitals/pressor drip p.r.n. Oxygen IV antibiotics GI prophylaxis Surgery on case Infectious disease on case Cardiology on case Nephrology on case Pulmonolog on case More recommendation per clinical course He likely has a poor prognosis for meaningful/overall recovery This medical document was created using an electronic medical record system with [employer] dictation system. Although this document has been carefully reviewed, there may still be some phonetic and typographical errors. These areas are purely typographical due to imperfections of the software programs, and do not reflect any compromise in the patient's medical care. More recommendation per clinical course Prognosis Guarded Dietary Evaluation Review Recommendations by RD: PPN/TPN Comments: 1) Increase TPN rate to meet at least 75% of estimated daily needs 2) Advance to renal cardiac diet when medically feasible, pending ST approval 3) Follow-up with cardiology, pulmonology, nephrology, neurology, and gastroenterology 4) Continue to monitor I&O, labs, and skin integrity Expected Outcomes/Goals: 1) nutritional support to meet at least 75% of estimated daily needs 2) labs and wound to improve 3) diet to advance 4) gradual wt loss 5) f/u in 2-3 days Plan discussed with: ALONZO Sawyer MD Mar 01, 2025 12:33
--- NOTE | 2025-03-01 14:26 | DVHPN2 ---
Progress Note - Dictate Date Seen: Mar 01, 2025 Has the PT tested + for MRSA If YES, has PT been informed?: No Medical Necessity Reason Pt with a Central, PICC or Fol: Yes The following are medically ne: Mora Catheter Reason for mora catheter: Nakul. Abd Surgery, Strict I&O, Total Immobilization vital signs Vital Sign Date Time Temp Pulse Resp B/P (MAP) Pulse Ox O2 Delivery O2 Flow Rate FiO2 03/01/25 13:45 66 10 88/48 (61) 100 03/01/25 12:05 40 03/01/25 12:00 Mechanical Ventilator+ 03/01/25 12:00 97.2 97.2 02/28/25 16:41 40.0 Total Intake and Output 02/28/25 02/28/25 03/01/25 15:00 23:00 07:00 Intake Total 411.5 ml 762.975 ml 519 ml Output Total 550 ml 400 ml Balance 411.5 ml 212.975 ml 119 ml medications Current Medications Medications Dose Ordered Sig/Serenity Route Start Time Stop Time Status Last Admin Dose Admin Sodium Chloride 10 ml QSHIFT@10,22 IV 02/04/25 22:00 03/01/25 07:44 10 ML Artificial Tears 1 drop Q4HP PRN EACHEYE 02/08/25 07:30 02/27/25 12:47 1 DROP Epoetin Gunnar-epbx 8,000 unit MWF@2100 SC 02/17/25 21:00 02/28/25 20:48 8,000 UNIT Piperacillin Sod/ Tazobactam Sod 50 ml @ 12.5 mls/hr Q8H IV 02/23/25 10:00 03/01/25 07:44 12.5 MLS/HR Pantoprazole Sodium 40 mg DAILY IV 02/24/25 10:00 03/01/25 07:44 40 MG Metoclopramide HCl 5 mg Q6HR IV 02/24/25 00:00 03/01/25 12:19 5 MG Erythromycin 250 mg Q6HR PO 02/24/25 18:00 03/01/25 12:19 250 MG Amino Acids 0 ml @ 0 mls/hr PER PHARMACY IV 02/24/25 21:00 Amino Acids/ Electrolytes/ Dextrose 1,000 ml @ 42 mls/hr DAILY@2200 IV 02/24/25 22:00 02/28/25 20:46 42 MLS/HR Enteral Nutritional Formula 1,000 ml 1000 GT 02/25/25 10:00 02/28/25 05:55 1,000 ML Diagnostic Test (Pha) 1 strip Q6HR 02/25/25 18:00 03/01/25 12:17 1 STRIP Insulin Human Regular FOLLOW SLIDING SCALE Q6HR SC 02/25/25 18:00 Dextrose 50 ml UD IV 02/25/25 18:00 Midodrine 10 mg TID@0600,1200,1800 PO 02/27/25 06:00 03/01/25 12:19 10 MG Vasopressin 20 units/Sodium Chloride 100 ml @ 3 mls/hr Q24H IV 02/28/25 17:30 03/01/25 02:43 9 MLS/HR Norepinephrine Bitartrate 250 ml @ 1.875 mls/ hr Q24H IV 02/28/25 18:00 laboratory and microbiology Laboratory Tests 03/01/25 03:45 Test 03/01/25 03:45 Range/Units Serum Glucose 84 74-106 mg/dL Assessment/Plan Still in ICU. On vent support. No gross higher brain reflexes. Pupils are dilated and fixed. 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 It also revealed increased Pulmonary Artery Pressure in favor of component of Pulmonary Hypertension. s/p Hemodialysis Received blood and platelet transfusion repeatedly Patient is a 24-year-old gentleman who was originally brought to the hospital for post arrest. Patient is seen in postop area. Patient is intubated and on multiple pressor supports. Patient is not source of history. Information was obtained by reviewing the chart, talking to patient's family/mother and communicating with staff and reviewing outside records ([facility]). Patient did have elective outpatient laparoscopic cholecystectomy in [facility] on January 28 2025. As per mother, after going home, patient was feeling very hungry and was eating and drinking a lot. He started feeling abdominal pain with nausea at night and in the morning was short of breath. As per mother: patient has stopped breathing in the morning and family called 911. As per mother, as per guidance of 911, family started CPR until EMS arrived. Patient was intubated and was brought to the hospital by EMS. Since arrival to [facility], patient was seen by surgeon who took the patient to operating room and performed laparotomy (there was hepatic hematoma). Postoperatively, the patient has remained hypotensive. There is signs for multiorgan involvement. Patient was not alert and did not complain of any chest pains. Labs revealed increased troponin. Cardiology is involved for cardiac aspects of care and abnormal troponin. First available EKG reveals sinus tachycardia with no specific ST-T changes. Telemetry had revealed sinus tachycardia throughout the stay. Patient is found to have significant anemia and is receiving blood transfusion at the time of evaluation. It is of note that at the time of evaluation patient does not have any reflexes. On vent via tracheostomy. Mucosa pale. Dilated and fixed pupils, Scattered rhonchi in the lungs. Cardiac: Tachycardic. No murmur. Abdomen is covered by dressing. Extremities do not reveal any edema. Dorsalis pedis is 1+ bilateral. Patient does not respond to any stimuli. Reported past medical history includes asthma and obesity. Reportedly, on January 23, 2025: Patient presented to [facility] for abdominal pain/nausea/vomiting. At that point the problems were ongoing for few weeks. In [facility], CT of the abdomen and MRCP were performed. Patient was seen by GI/surgery. Patient was found to have gallstones. Patient was discharged and later on January 28, [address] [facility] for elective laparoscopy cholecystectomy. Patient was discharged home from [facility] after laparoscopic cholecystectomy. As per mother, patient does not have baseline history of any cardiac history. As per mother, patient was using marijuana. Mother denies any previous substance abuse besides marijuana. No specific family history is reported On January 23, 2025, labs in [facility] revealed creatinine of 0.84, hemoglobin of 15.2 and troponin (high sensitive) of <3. At that point EKG was normal WBC: 20.1 - 19.0 - 22.7 - 20.6 - 28.4 - 20.3 - 21.0 - 25.2 - 29.8 - 29.5 - 29.0 - 26.2 - 21.7 - 19.7 - 17.7 - 15.3 - 12.2 - 10.5 - 11.2 - 13.0 - 10.7 - 9.0 - 9.0 - 10.3 - 10.3 - 10.1 - 11.0 - 12.4 - 13.0 - 12.0 - 15.1 - 13.8 - 14.9 - 13.1 - 10.2 - 12.4 - 15.0 - 14.3 - 18.0 - 12.8 Hemoglobin: 8.3 - 6.5 - 12.1 - 11.1 - 12.1 - 9.3 - 9.2 - 9.1 - 8.4 - 9.0 - 9.5 - 8.8 - 8.4 - 8.0 - 9.7 - 9.6 - 9.8 - 9.6 - 9.7 - 9.8 - 9.1 - 8.5 - 8.8 - 8.9 - 8.7 - 8.8 - 9.7 - 9.1 - 7.9 - 8.2 - 10.1 - 9.5 - 9.7 - 9.6 - 10.0 - 7.9 - 8.0 - 8.7 - 8.6 - 9.4 - 8.4 Fibrinogen: 108 - 316 - 537 - 689 - >860 - 422 Creatinine: 4.02 - 3.78 - 3.90 - 3.95 - 4.34 - 5.44 - 6.05 - 6.73 - 7.31 - 7.77 - 6.64 - 7.30 - 4.91 - 5.32 - 7.40 - 5.98 - 7.66 - 6.28 - 7.71 - 8.67 - 6.87 - 5.62 - 7.59 - 8.95 - 7.51 - 9.04 - 6.23 - 7.09 - 5.33 - 6.90 - 4.95 - 6.31 - 7.51 - 6.00 - 7.40 - 8.68 - 7.46 - 8.53 - 5.78 - 6.63 - 5.55 Potassium: 5.6 - 4.6 - 4.8 - 3.9 - 2.9 - 2.9 - 3.6 - 3.8 - 4.9 - 5.4 - 6.0 - 5.1 - 5.3 - 6.1 - 6.0 - 4.6 - 4.4 - 4.3 - 3.5 - 3.4 - 3.7 - 4.5 - 5.7 - 5.2 - 4.0 - 3.8 - 4.1 - 4.5 - 4.9 - 4.7 - 4.6 - 4.4 - 4.6 - 3.7 - 3.5 - 4.5 - 3.7 - 5.1 - 6.0 - 4.4 - 4.9 - 4.2 - 3.0 - 4.6 - 3.0 AST/ALT: 676/700 - 2327/6 - 4636/2521 - -/1996 - 2500/1990 - 1780/1821 - 808/995 - 586/735 - 456/444 - 312/290 - 237/163 - 215/125 - 190/87 - 200/74 - 202/66 - 189/53 - 186/44 - 186/45 - 192/38 - 193/34 - 214/34 - 195/30 - 261/42 - 241/47 - 246/63 - 265/69 - 208/52 - 177/46 - 168/42 - 146/37 - 98/28 - 94/30 - 104/29 - 125/31 - 139/29 Lactic acid: 17.9 - 17.2 - 11.4 Troponin (high sensitive): 2973 - 7222 - 4364 - 9893 - 9003 TSH: 11.05 Urine Toxicology: positive for Fentanyl and Benzodiazepine Chest x-ray revealed: Lines and Tubes: Endotracheal tube projects 2.2 cm above the meghan. Right internal jugular central venous catheter tip projects over superior vena cava. Lungs: No focal consolidation. Low lung volumes. Pleura: No effusion. No pneumothorax. Cardiomediastinal contours: Unremarkable Bones: No acute osseous abnormality. IMPRESSION: Lines and tubes as above. Low lung volumes. Repeat chest x-ray revealed: IMPRESSION: Lines and tubes in satisfactory position. Mild increased pulmonary vascular congestion Repeat chest xry revealed: IMPRESSION: Lines and tubes in satisfactory position. Mild increased pulmonary vascular congestion Repeat chest xry revealed: IMPRESSION: 1. Low lung volumes with concomitant crowding of the pulmonary vasculature. 2. No evidence of focal consolidation. 3. Lines and tubes unchanged. Repeat chest xry revealed: IMPRESSION: 1. Slight interval retraction of the endotracheal tube such that the tip now projects approximately 4.7 cm above the level of the meghan. Remaining lines and tubes unchanged. 2. Otherwise no significant change compared to prior exam. Repeat chest xry revealed: IMPRESSION: 1. Slight interval advancement of endotracheal tube such that the tip now projects approximately 1.7 cm above the level of the meghan. Remaining lines and tubes unchanged. 2. Otherwise no significant change compared to prior exam. Repeat chest xry revealed: IMPRESSION: 1. Slight interval retraction of the endotracheal tube such that the tip now projects approximately 3.3 cm above the level of the meghan. Remaining lines and tubes unchanged. 2. No evidence of acute cardiopulmonary process. Repeat chest xry revealed: IMPRESSION: 1. Endotracheal tube in appropriate position. Remaining lines and tubes unchanged. 2. No evidence of acute cardiopulmonary process. Repeat chest xry revealed: IMPRESSION: 1. Small right pleural effusion. 2. Lines and tubes unchanged. Repeat chest xry revealed: IMPRESSION: 1. Small right pleural effusion. 2. Lines and tubes unchanged. Repeat chest xry revealed: IMPRESSION: 1. Small bilateral pleural effusions. 2. Lines and tubes unchanged. Repeat chest xry revealed: IMPRESSION: 1. Slight interval advancement of the endotracheal tube. Remaining lines and tubes unchanged. 2. No evidence of acute cardiopulmonary process. Repeat chest xry revealed: IMPRESSION: 1. Slight interval retraction of the endotracheal tube such that the tip now projects approximately 3.3 cm above the level of the meghan. Remaining lines and tubes unchanged. 2. No evidence of acute cardiopulmonary process. Repeat chest xry revealed: Bowel gas pattern is unremarkable. Enteric tube tip projects over the expected region of the stomach. The lung bases demonstrates bibasilar atelectasis. The lower pelvis is collimated from field of view. No acute osseous abnormality identified. Repeat chest xry revealed: Lines and Tubes: Endotracheal tube tip projects approximately 5.1 cm above the level of the meghan. Enteric catheter terminates within the gastric lumen. Right peripherally inserted central catheter tip and left subclavian central venous catheter tip project over the distal superior vena cava. Lungs: Clear Pleura: No effusion. No pneumothorax. Cardiomediastinal contours: Unremarkable Bones: Unremarkable IMPRESSION: 1. No radiographic evidence of acute cardiopulmonary abnormality. 2. Lines and tubes as above. Repeat chest xry revealed: IMPRESSION: 1. Stable position of the support lines and tubes. 2. Bibasilar airspace disease which may reflect atelectasis and/or pneumonia. Possible small bilateral pleural effusions. Repeat chest xry revealed: IMPRESSION: 1. Lines and tubes unchanged. 2. Persistently diminished lung volumes with concomitant exaggeration of the pulmonary vasculature. No evidence of acute cardiopulmonary process. Repeat chest xry revealed: IMPRESSION: 1. No acute cardiopulmonary disease. 2. Lines and tubes as above. Repeat chest xry revealed: IMPRESSION: 1. Intervally placed right IJ catheter projects in appropriate remaining support devices are stable.2. No other significant change from the previous study. Persistent low lung volumes with vascular crowding and basilar atelectasis. Repeat chest xry revealed: IMPRESSION: Heart is stable in size. There are low lung volumes with probable small left pleural effusion and bibasilar atelectasis. Support lines and tubes appear unchanged in satisfactory position. No pneumothorax. No significant interval change. Repeat chest xry revealed: IMPRESSION: Unchanged bibasilar opacities, likely atelectasis with small pleural effusions Repeat chest xry revealed: IMPRESSION: 1. No significant change from the previous study. Stable support devices. Persistent left pleural effusion and bibasilar airspace disease. Repeat chest xry revealed: IMPRESSION: 1. Interval removal of enteric catheter. Remaining Lines and tubes unchanged. 2. Otherwise, no significant change compared to prior exam allowing for differences in technique. Repeat chest xry revealed: IMPRESSION: Low lung volumes with bibasilar subsegmental atelectasis. Repeat chest xry revealed: IMPRESSION: 1. Tracheostomy ventilation. 2. Low lung volumes and bilateral lung base atelectasis versus scarring re-identified. Repeat chest xry revealed: IMPRESSION: 1. Tracheostomy ventilation. 2. Increased interstitial prominence in the left lung may be due to asymmetric CHF or interstitial pneumonia. 3. Low lung volumes and bilateral lung base opacities. Repeat chest xry revealed: Lines and Tubes: Tracheostomy tube is unchanged. There is a right central venous catheter with the tip terminating in the cavoatrial junction. There is a right PICC with its tip terminating in the superior vena cava. Lungs: Left basilar airspace disease. Pleura: No effusion. No pneumothorax. Cardiomediastinal contours: Unremarkable Bones: No acute osseous abnormality. IMPRESSION: 1. Left basilar airspace disease. Repeat chest xry revealed: IMPRESSION: Low lung volumes and bibasilar subsegmental atelectasis. KUB revealed: IMPRESSION: No evidence of ileus or small-bowel obstruction. Brain scan revealed: FINDINGS: Absence of cerebral blood flow is noted along with no brain parenchymal radiotracer uptake. Increased activity is seen in the central face likely representing vascular shunting consistent with the so-called "hot nose" sign. Findings suggest brain however clinical correlation is necessary. IMPRESSION: Findings described above, which would be consistent with brain in the appropriate clinical setting, however clinical correlation is needed. CT of the chest/abdomen/pelvis revealed: IMPRESSION: 1. Hepatic hematoma measuring up to approximately 8.6 cm in greatest dimension, as described above, with hemorrhage extending beyond the liver capsule and into the right pericolic gutter as well as into the pelvis. No definite active arterial bleeding is seen on this exam, although limited evaluation due to the timing of contrast, as this was not a CTA exam. 2. Postsurgical changes of cholecystectomy. 3. Dilated fluid-filled small bowel loops, may be due to postoperative ileus. No small bowel obstruction. 4. Small volume pneumoperitoneum, likely due to recent surgery. Small volume of gas are seen in the upper ventral abdomen from the recent surgery. 5. Dependent atelectasis in the lower lobes. Otherwise, no acute disease in the chest. 6. Endotracheal tube and enteric tube in place. 7. Atrophic right kidney incidentally noted. 8. Additional findings as described above. Critical findings Critical Result: Acute hepatic hematoma with hemorrhage extending beyond the liver capsule into the adjacent portions of the abdomen and into the pelvis as detailed above. Repeat CT of chest/abdomen/pelvis revealed: There is limited interpretation of the chest, abdomen and pelvis without administration of intravenous contrast. Endotracheal tube tip terminates just at the meghan / left main bronchus. Diffuse bilateral pulmonary airspace consolidation bilaterally significantly increased. Bilateral lower lobe lobar consolidation/ atelectasis, increased from prior. Small bilateral pleural effusions. There is extensive edema/ stranding within the upper anterior chest, neck region/supraclavicular region. There is some hyperdensity within this region which could represent components of hematoma / blood products. Heterogeneous appearance of the thyroid gland. Right IJ catheter terminating at the cavoatrial junction. Adrenal glands unremarkable in shape. Perisplenic hematoma. Interval postsurgical changes in the right upper quadrant of the abdomen. There appears to be surgicel/gaseous collection within the previous hematoma cavity, likely representing surgicel. There is a radiopaque density within the resection cavity as well which measures 6.2 x 4.6 cm.. Postoperative changes of the right anterior abdomen with soft tissue emphysema. Small amount of pneumoperitoneum Surgical drainage catheter terminating in the right upper quadrant of the abdomen Right renal parenchymal atrophy. Left kidney demonstrates perinephric edema / stranding. No left hydronephrosis. Nasogastric tube projects towards the distal stomach. Moderate distention small bowel loops. Rectal catheter. Moderate distention of the large bowel loops. Normal appendix. Abdominal aorta normal in caliber. Small amount of ascites fluid/ mesenteric edema. Bladder decompressed by Mora catheter. Soft tissue edema /anasarca. Mesenteric edema. Small amount of ascites fluid. The osseous structures are stable. IMPRESSION: Limited evaluation without contrast. Interval evacuation of the right upper quadrant hematoma. Surgicel within the resection cavity. No significant interval development of new hematoma. There are 2 radiopaque lap pads within the resection cavity . Findings reviewed with Dr. Ledesma at 11:51 a.m. on 01/30/2025 Perisplenic hematoma, similar to previous examination. Extensive bilateral pulmonary airspace consolidation, significantly increased from previous examination. Small bilateral pleural effusions. Right upper quadrant drainage catheter. Pneumoperitoneum. Soft tissue edema / anasarca. Small amount of ascites fluid/ mesenteric edema. Extensive edema within the anterior chest, neck region. Heterogeneous appearance thyroid gland. Other findings as described. CT of the head revealed: IMPRESSION: 1. No evidence of acute intracranial abnormality. Repeat CT of head revealed: FINDINGS: Cerebellar tonsilar herniation. There is sulcal and ventricular effacement. The basal cisterns are effaced. Loss of mario-white matter differentiation is noted. The skull and visible facial bones are intact. The paranasal sinuses, mastoid air cells and middle ear cavities are well-aerated. The soft tissues of the scalp are unremarkable. IMPRESSION: Diffuse cerebral edema with cerebellar tonsillar herniation. Recommend MRI brain for further evaluation. Repeat CT of head revealed: FINDINGS: There is diffuse low attenuation throughout the brain with increased effacement of the ventricles and complete sulcal effacement. There is cerebellar tonsillar herniation. The orbits are normal. There is moderate mucosal thickening within the paranasal sinuses and mastoid air cells. The soft tissues and osseous structures appear within normal limits. IMPRESSION: 1. Findings as above suggesting worsening diffuse cerebral edema in the setting of anoxic brain injury in the given clinical setting. Further clinical correlation is suggested. CT of Neck revealed: IMPRESSION: Limited evaluation without contrast. Extensive soft tissue edema within the neck extending into the anterior / upper chest and anterior mediastinum . Retropharyngeal edema. Heterogeneous appearance of the thyroid gland. Inferior cerebellar tonsillar herniation better seen on the prior CT Renal Ultrasound revealed: IMPRESSION: 1. Right kidney not visible. 2. Left kidney is enlarged. 3. No hydronephrosis. Venous duplex of lower ext revealed: IMPRESSION: NO SONOGRAPHIC EVIDENCE FOR DEEP VENOUS THROMBOSIS IN THE RIGHT LOWER EXTREMITY VEINS. Repeat (bilateral) Venous duplex of lower ext revealed: Impression: 1. No right or left femoropopliteal venous thrombosis. EEG reported: This is a remarkably abnormal EEG, this EEG seen in severe cerebral dysfunction due to metabolic/hypoxic encephalopathy or medication effects, unless this is caused by reversible etiology, this EEG is suggestive of a poor prognosis for meaningful recovery, please correlate clinically. Arrival EKG revealed sinus tachycardia with nonspecific ST-T changes Tele reveals sinus tachycardia Echocardiogram revealed: Technically limited study secondary to poor acoustic windows. Left ventricle: Left ventricle was normal-sized with normal systolic function. LVEF was 55-60%. No gross wall motion abnormality was seen. Right ventricle was mildly dilated with normal systolic function. Left atrium was normal-sized. Right atrium was mildly dilated. Aortic valve: Aortic valve was not well visualized. There was no aortic insufficiency/stenosis. There was no mitral regurgitation. There was trace tricuspid regurgitation. Pulmonary valve was not well visualized. IVC was not visualized. Right ventricular systolic pressure was assessed around 48 mm Hg. There was no pericardial effusion. Patient is a 24-year-old gentleman who presented with post arrest. It seems that the patient had hemorrhagic (intra-abdominal) presentation. Patient did have elective laparoscopic cholecystectomy the day before presentation. On the day of presentation, the patient was taken back to operating room and this time Laparotomy was done for hepatic hematoma. Patient does have multiorgan involvement. Clinically there is no brainstem reflexes. Shock liver/acute renal failure is considered. Troponin has been high. EKG did not reveal any STEMI. Presentation could be high troponin secondary to demand physiology. Patient does not have any risk factors for baseline coronary artery disease. In ideal scenario, ischemic workup/cardiac catheterization could be more revealing. Unfortunately, the patient does have acute renal failure which could be worsened by cardiac catheterization at this point. As there was no higher brain functions the suggestion is to wait and see if patient regains any higher brain function. It is of note that during cardiac catheterization, the patient may need some anticoagulation/antiplatelets. At this point patient is having significant anemia/bleeding and receiving blood transfusion and holding off of scenario forcing Anticoagulation/antiplatelets is advised. I had a long discussion with family members and Mother (repeatedly). Clinically patient has multiorgan failure. Secondary to active bleeding, we will avoid anticoagulation/antiplatelets for now. Being managed in ICU. Was taken to OR repeatedly. Still no reflexes. Echocardiogram revealed no WMA and also revealed good EF. It also revealed increased Pulmonary Artery Pressure in favor of component of Pulmonary Hypertension. Review of Echo images revealed good right ventricular systolic function. Not typical for Pulmonary Emboli. Still, PE cannot be ruled out. If PE is ruled out, then it is possible that patient had Pulmonary Hypertension from before (Baseline history of Asthma may actually reflect it). s/p PRBC transfusion (multiple). Being followed by Surgery, Nephrology, Hematology, Pulmonary, Neurology and GI. . Repeat imaging revealed cerebellar tonsillar herniation. Neurology diagnosed Hypoxic/Metabolic Encephalopathy also. EEG findings question meaningful recovery. Neurology declared patient: brain . Neurology second opinion was in favor of Anoxic/Hypoxic Encephalopathy. Repeat imaging of brain revealed worsening diffuse cerebral edema and also again revealed cerebellar tonsillar herniation. Family are contemplating Trach/PEG. Patient is seen by GI. s/p Tracheostomy. s/p PEG. s/p repeated PRBC transfusion. On pressure support. s/ p Arrest Intra-abdominal bleeding Hepatic hematoma Multiorgan failure, due to shock Shock liver Lactic Acidosis Acute renal failure Acute respiratory failure, on vent support Status post laparotomy Status post laparoscopic cholecystectomy Abnormal troponin, evaluated to reflect possible demand physiology History of gallstones History of asthma Obesity History of marijuana abuse Consumptive Coagulopathy / DIC Pulmonary Hypertension Cerebellar tonsillar Herniation. Encephalopathy, hypoxic/metabolic Renal failure, started on hemodialysis Brain scan questions brain Anoxic Encephalopathy s/p Tracheostomy s/p PEG Hypotension, Cardiac suggestion for management: Manage in ICU Follow-up electrolytes and kidney function tests and correct abnormalities Evaluation and management of respiratory failure as per Pulmonary Evaluation and management of Cerebellar tonsillar herniation and worsening cerebral edema as per Neurology/surgery/primary team V/Q scan could not be completed Anoxic/Hypoxic Encephalopathy Echocardiogram revealed no WMA and also revealed good EF. It also revealed increased Pulmonary Artery Pressure in favor of component of Pulmonary Hypertension. Hematology follow up (to comment on prophylaxis / treatment of Pulmonary Emboli) Surgical follow up Nephrology follow up (started on hemodialysis) and Hematology follow up On Midodrine IV pressure support (Vasopressin) to keep MAP above 55: if needed DVT prophylaxis as per primary team (compression stocking Vs Lovenox..) Long-term prognosis depends on the above and most importantly regaining of the higher brain function: looks very grim Ischemic workup may be considered only after regaining higher brain function or any special change in clinical presentation Further evaluation and management depends on the above and clinical course A total of 75 minutes was spent reviewing the patient record, examining the patient, making a diagnostic and therapeutic plan, discussing this plan with medical personnel, following up on diagnostic studies and following the patient for clinical stability excluding any and all procedures. At least 50% of this time was spent in direct, [id number] contact. Thank you for allowing me to participate in this patient's care. Further recommendations will depend on patient's clinical course. Please do not hesitate to contact me if you have any questions or concerns. This medical document was created using electronic medical record system with [employer] computerized dictation system. Although this document has been carefully reviewed, there may still be some phonetic and typographical errors. These areas are purely typographical due to the imperfection of the software programs, and do not reflect any compromise in the patient's medical care. Dietary Evaluation Review Recommendations by RD: PPN/TPN Comments: 1) Increase TPN rate to meet at least 75% of estimated daily needs 2) Advance to renal cardiac diet when medically feasible, pending ST approval 3) Follow-up with cardiology, pulmonology, nephrology, neurology, and gastroenterology 4) Continue to monitor I&O, labs, and skin integrity Expected Outcomes/Goals: 1) nutritional support to meet at least 75% of estimated daily needs 2) labs and wound to improve 3) diet to advance 4) gradual wt loss 5) f/u in 2-3 days Plan discussed with: Other (nurse) KATHLEEN COHEN MD Mar 01, 2025 14:26
--- NOTE | 2025-03-01 15:40 | DVHPNRES ---
Progress Note Date Seen: Mar 01, 2025 Resident Creating Document: ARNOLD MUHAMMAD RESZENENT Has the PT tested + for MRSA If YES, has PT been informed?: No Medical Necessity Reason Pt with a Central, PICC or Fol: Yes The following are medically ne: Mora Catheter Reason for mora catheter: Nakul. Abd Surgery, Strict I&O, Total Immobilization Subjective Review of Systems Patient seen and evaluated in bedside today. Patient currently on mechanical ventilation, vent setting peep 7, tidal volume 500, FiO2 55, respiratory rate 10. Labs reviewed. Objective vital signs Vital Sign Date Time Temp Pulse Resp B/P (MAP) Pulse Ox O2 Delivery O2 Flow Rate FiO2 03/01/25 14:45 63 10 89/41 (57) 99 03/01/25 14:17 40 03/01/25 14:00 Mechanical Ventilator+ 03/01/25 12:00 97.2 97.2 02/28/25 16:41 40.0 Total Intake and Output 02/28/25 02/28/25 03/01/25 15:00 23:00 07:00 Intake Total 411.5 ml 762.975 ml 519 ml Output Total 550 ml 400 ml Balance 411.5 ml 212.975 ml 119 ml medications Current Medications Medications Dose Ordered Sig/Serenity Route Start Time Stop Time Status Last Admin Dose Admin Sodium Chloride 10 ml QSHIFT@10,22 IV 02/04/25 22:00 03/01/25 07:44 10 ML Artificial Tears 1 drop Q4HP PRN EACHEYE 02/08/25 07:30 02/27/25 12:47 1 DROP Epoetin Fiona-epbx 8,000 unit MWF@2100 SC 02/17/25 21:00 02/28/25 20:48 8,000 UNIT Piperacillin Sod/ Tazobactam Sod 50 ml @ 12.5 mls/hr Q8H IV 02/23/25 10:00 03/01/25 07:44 12.5 MLS/HR Pantoprazole Sodium 40 mg DAILY IV 02/24/25 10:00 03/01/25 07:44 40 MG Metoclopramide HCl 5 mg Q6HR IV 02/24/25 00:00 03/01/25 12:19 5 MG Erythromycin 250 mg Q6HR PO 02/24/25 18:00 03/01/25 12:19 250 MG Amino Acids 0 ml @ 0 mls/hr PER PHARMACY IV 02/24/25 21:00 Amino Acids/ Electrolytes/ Dextrose 1,000 ml @ 42 mls/hr DAILY@2200 IV 02/24/25 22:00 02/28/25 20:46 42 MLS/HR Enteral Nutritional Formula 1,000 ml 1000 GT 02/25/25 10:00 02/28/25 05:55 1,000 ML Diagnostic Test (Pha) 1 strip Q6HR 02/25/25 18:00 03/01/25 12:17 1 STRIP Insulin Human Regular FOLLOW SLIDING SCALE Q6HR SC 02/25/25 18:00 Dextrose 50 ml UD IV 02/25/25 18:00 Midodrine 10 mg TID@0600,1200,1800 PO 02/27/25 06:00 03/01/25 12:19 10 MG Vasopressin 20 units/Sodium Chloride 100 ml @ 3 mls/hr Q24H IV 02/28/25 17:30 03/01/25 02:43 9 MLS/HR Norepinephrine Bitartrate 250 ml @ 1.875 mls/ hr Q24H IV 02/28/25 18:00 Examination General: RASS -5, afebrile, mucosae are moist Cardiovascular: Normal S1 and S2. No murmurs, gallops or rubs Respiratory: Mechanically assisted ventilation, equal bilateral airway entree. Clear lung sounds on auscultation Abdomen: Soft, nontender, no organomegaly, with surgical wound on abdomin MSK/skin: Mobilization of limbs cannot be evaluated. Skin is dry and warm. Neurological: Orientation cannot be assessed. Pupils are dilated and nonreactive to light, absent brainstem reflexes. laboratory and microbiology Laboratory Tests 03/01/25 03:45 Test 03/01/25 03:45 Range/Units Serum Glucose 84 74-106 mg/dL Microbiology Date/Time Source Procedure Growth Status 02/22/25 21:21 Urine - Mora Port Urine Culture - Final Complete 02/20/25 09:30 Blood Blood Culture - Final NO GROWTH AFTER 5 DAYS OF INCUBATION. Complete 02/19/25 11:44 Trachea Gram Stain - Final Complete 02/19/25 11:44 Respiratory Culture - Final Klebsiella pneumoniae Complete 01/29/25 10:43 Sputum Gram Stain - Final Complete 01/29/25 10:43 Sputum Respiratory Culture - Final Complete Labs and/or images reviewed: Labs reviewed by me, Image(s) reviewed by me Problem List/Assessment/Plan Problem List/Assessment/Plan This is a 24-year-old male with no significant past medical history underwent elective laparoscopic cholecystectomy on 01/28 at [facility] (due to cholelithiasis), on 2nd day postop at home became lethargic and subsequently coded. ROSC was achieved with CPR, abdominal CT scan showed intra-abdominal hematoma, underwent emergent laparotomy and drained about 500-750 thrombosed and dark blood. NEURO: Hypoxic encephalopathy, due to cardiac arrest Anoxic brain injury * RASS Score -5 * Head CT from 01/30 shows, Cerebellar tonsilar herniation. There is sulcal and ventricular effacement. The basal cisterns are effaced. Loss of mario-white matter differentiation is noted. * Head CT on 02/11 shows worsening diffuse cerebral edema in the setting of anoxic brain injury * BRNNM-brain imaging, shows absence blood flow, findings suggest brain in the appropriate clinical setting * transfering to LTAC CARDIOVASCULAR: NSTEMI possible type 2 Status post cardiac arrest Distributive shock (vasoplegia)/neurogenic shock/septic shock vasopressin * Cardiology on the board, recommended medical management * Echo from 01/30 shows,Technically limited study secondary to poor acoustic windows, normal LV size and function, 55-60% * Levophed, midodrine 10 mg t.i.d. hydrocortisone 50 mg q.6 hours PULMONARY: Acute hypoxic respiratory failure, likely due to anoxic brain injury Cxr showed bilateral mild pulmonary vascular congestion GASTROINTESTINAL: Acute transaminitis secondary to hypovolemic shock Coagulopathy Hypoalbuminemia Status post laparoscopic cholecystectomy Status post exploratory laparotomy for hemoperitoneum Transaminitis, likely due to TPN GENITOURINARY: HARLEEN secondary to hypovolemic shock * Nephrology on the board, performed dialysis on 02/03 * IV Bumex 2 mg b.i.d. METABOLIC: Severe anion gap metabolic acidosis due to lactic acidosis Hypernatremia Grade 2 obesity, BMI 35.7 kg per m2 Hypoglycemia HEME: Severe anemia, due to bleeding * Received 3 units of PRBC, 2 units of FFP and 1 unit of cryoprecipitate * Monitor H&H and epoetin fiona INFECTIOUS DISEASE: Leucocytosis Lactic acidosis * Urine culture, blood culture and respiratory culture shows no growth * On Zosyn DIET: TPN DVT prophylax: Hold GI prophylaxis: Protonix Code status: Full code LINES/DRAINS/ACCESS: ETT: Intubated on 01/29 IV access: Lt IJ placed on 01/29/25 left subclavian, tunneled dialysis catheter placed on 02/14 Drips: On Levophed Mora catheter: Placed on 01/29 DISPOSITION: ICU status Patient's status discussed with the patient's mother at the bedside. Critical care time spent more than 57 minutes, including patient care, chart review, and updating the family. Excluding any procedures. Case discussed with Dr. Kay Plan discussed with: Patient, Other (RN) My Orders My Orders Orders - ARNOLD MUHAMMAD Procedure Category Date Status Time Communication Order ORDERS 02/28/25 Transmitted 12:00 Dietary Evaluation Review Recommendations by RD: PPN/TPN Comments: 1) Increase TPN rate to meet at least 75% of estimated daily needs 2) Advance to renal cardiac diet when medically feasible, pending ST approval 3) Follow-up with cardiology, pulmonology, nephrology, neurology, and gastroenterology 4) Continue to monitor I&O, labs, and skin integrity Expected Outcomes/Goals: 1) nutritional support to meet at least 75% of estimated daily needs 2) labs and wound to improve 3) diet to advance 4) gradual wt loss 5) f/u in 2-3 days ARNOLD MUHAMMAD Mar 01, 2025 15:40
--- NOTE | 2025-03-01 20:05 | DVHPN2 ---
Progress Note Date Seen: Mar 01, 2025 Has the PT tested + for MRSA If YES, has PT been informed?: No Medical Necessity Reason Pt with a Central, PICC or Fol: Yes The following are medically ne: Mora Catheter Reason for mora catheter: Nakul. Abd Surgery, Strict I&O, Total Immobilization Subjective Review of Systems Pt's mother and brother at the bedside. No changes. Still on vasopressin 0,02 mcg. Objective vital signs Vital Sign Date Time Temp Pulse Resp B/P (MAP) Pulse Ox O2 Delivery O2 Flow Rate FiO2 03/01/25 18:45 66 10 93/53 (66) 99 03/01/25 18:14 35 03/01/25 18:00 Mechanical Ventilator+ 03/01/25 16:00 97.2 97.2 02/28/25 16:41 40.0 Total Intake and Output 02/28/25 02/28/25 03/01/25 15:00 23:00 07:00 Intake Total 411.5 ml 762.975 ml 519 ml Output Total 550 ml 400 ml Balance 411.5 ml 212.975 ml 119 ml medications Current Medications Medications Dose Ordered Sig/Serenity Route Start Time Stop Time Status Last Admin Dose Admin Sodium Chloride 10 ml QSHIFT@10,22 IV 02/04/25 22:00 03/01/25 07:44 10 ML Artificial Tears 1 drop Q4HP PRN EACHEYE 02/08/25 07:30 02/27/25 12:47 1 DROP Epoetin Gunnar-epbx 8,000 unit MWF@2100 SC 02/17/25 21:00 02/28/25 20:48 8,000 UNIT Piperacillin Sod/ Tazobactam Sod 50 ml @ 12.5 mls/hr Q8H IV 02/23/25 10:00 03/01/25 17:42 12.5 MLS/HR Pantoprazole Sodium 40 mg DAILY IV 02/24/25 10:00 03/01/25 07:44 40 MG Metoclopramide HCl 5 mg Q6HR IV 02/24/25 00:00 03/01/25 17:42 5 MG Erythromycin 250 mg Q6HR PO 02/24/25 18:00 03/01/25 17:41 250 MG Amino Acids 0 ml @ 0 mls/hr PER PHARMACY IV 02/24/25 21:00 Amino Acids/ Electrolytes/ Dextrose 1,000 ml @ 42 mls/hr DAILY@2200 IV 02/24/25 22:00 02/28/25 20:46 42 MLS/HR Enteral Nutritional Formula 1,000 ml 1000 GT 02/25/25 10:00 02/28/25 05:55 1,000 ML Diagnostic Test (Pha) 1 strip Q6HR 02/25/25 18:00 03/01/25 17:40 1 STRIP Insulin Human Regular FOLLOW SLIDING SCALE Q6HR SC 02/25/25 18:00 Dextrose 50 ml UD IV 02/25/25 18:00 Midodrine 10 mg TID@0600,1200,1800 PO 02/27/25 06:00 03/01/25 17:41 10 MG Vasopressin 20 units/Sodium Chloride 100 ml @ 3 mls/hr Q24H IV 02/28/25 17:30 03/01/25 02:43 9 MLS/HR Norepinephrine Bitartrate 250 ml @ 1.875 mls/ hr Q24H IV 02/28/25 18:00 Examination Neuro. Unchanged. Dilated fixed pupils. No reflexes. Pt has been moving for last 1-2 weeks. Do not seem purposeful. CV. HR 68 BP 90/56 MAP 69. Vasopressin 0.02 mcg/kg. Previous LSCV HD catheter site C/D/I. Right PC and PICC catheter exit sites remain C/D/I. Pulmonary: Tracheostomy in place. No active bleeding. C/D/I. Mechanical ventilator support 550/10/40%/+7. RR 11/min on vent display. GI: Soft, obese, nondistended and non tender. Incisions and dressing C/D/I. PEG in place. No further bleeding from PEG. TF on hold . Mora catheter in place. Clear yellow urine in collection bag Extremities. No edema Mild orbital edema Skin: Resolved jaundice laboratory and microbiology Laboratory Tests 03/01/25 03:45 Test 03/01/25 03:45 Range/Units Serum Glucose 84 74-106 mg/dL Microbiology Date/Time Source Procedure Growth Status 02/22/25 21:21 Urine - Mora Port Urine Culture - Final Complete 02/20/25 09:30 Blood Blood Culture - Final NO GROWTH AFTER 5 DAYS OF INCUBATION. Complete 02/19/25 11:44 Trachea Gram Stain - Final Complete 02/19/25 11:44 Respiratory Culture - Final Klebsiella pneumoniae Complete 01/29/25 10:43 Sputum Gram Stain - Final Complete 01/29/25 10:43 Sputum Respiratory Culture - Final Complete Labs and/or images reviewed: Labs reviewed by me Problem List/Assessment/Plan Problem List/Assessment/Plan Neuro: Appreciate neurology input and assistance. CT revealed cerebral edema and tonsillar herniation.EEG no electric activity. Cerebral perfusion study confirmed no perfusion radiographically consistent with brain which was concordant with initial clinical diagnosis and EEG. However, pt continues demonstrating brainstem function as he is breathing over vent set rate. Fluctuating HR, RR, BP and temperature. Could be secondary to autonomic dysfunction. F/U (3rd) CT brain worsening cerebral edema and tonsillar herniation. CV:Hemodynamically labile. Vasopressin as needed. Normal HR. Possible autonomic dysfunction. Continue Midodrine to 10 mg via PEG TID. Cardiology assistance appreciated. Mechanical DVT prophylaxis.Pulmonary hypertension possibly unknowingly preexistent. Duplex negative for DVT Pulmonary: VDRF. S/p tracheostomy. O2 Sat 100%. Continue ventilator. Sputum Cx Klebsiella pneumoniae sensitive to Zosyn. Anticipated D/C date 03/05 to complete 2 weeks of IV Abx. Continue ventilator support. Appreciate pulmonary medicine assistance. Pulmonary medicine following. GI: Continue BID GI prophylaxis. Continuously improving LFTs. Decreasing TB. Possible TPN related cholestasis. Vital AF at 10 mL/hr. measure RV q 6 hrs, hold if >150 mL.. Erythromycin as prokinetic.Continue Clinimix for now. Continues having BM. Several AXR negative for ielus or SBO. : ARF/ATN. Strict I&O. Mora to gravity. Appreciate nephrology assistance. Replace/correct electrolytes, and HD per nephrology. Clinimix at 42 mL/hr. Heme/ID: WBC 12. Hgb 8.4 (stable). All Cx negative besides respiratory culture with Klebsiella PNA, which continues under Tx. UCx final negative. Minimizing blood draw frequency to avoid worsening anemia. Repeat labs AM. Appreciate hematology assistance. Continue Zosyn for Klebsiella pneumoniae PNA, D/C date 03/05 to complete 2 weeks. Endocrine: Tight glycemic control. Cortisol level normal. TSH normal, T3 and T4 low. ? subclinical hypothyroidism. IM stated that normal TSH, no need for replacement therapy. Skin: Skin care and pressure ulcer precautions. May transfer to Dr. Patten accepting physician at [facility]. Has not required increased vasopressor support. Minimal vasopressor support. Hemodynamic instability likely secondary to autonomic dysfunction. Assistance from all medical and nursing staff is greatly appreciated by family and myself. Plan discussed with: Other (Mother and brother) My Orders My Orders Orders - JITENDRA ZAMORA MD Procedure Category Date Status Time Magnesium LAB 03/02/25 Verified 05:00 Phosphorus LAB 03/02/25 Verified 05:00 Clinimix Per Pharmacy Y[facility] 03/01/25 In Process 22:00 Imaging Transfer ORDERS 03/01/25 Transmitted Request 16:54 Dietary Evaluation Review Recommendations by RD: PPN/TPN Comments: 1) Increase TPN rate to meet at least 75% of estimated daily needs 2) Advance to renal cardiac diet when medically feasible, pending ST approval 3) Follow-up with cardiology, pulmonology, nephrology, neurology, and gastroenterology 4) Continue to monitor I&O, labs, and skin integrity Expected Outcomes/Goals: 1) nutritional support to meet at least 75% of estimated daily needs 2) labs and wound to improve 3) diet to advance 4) gradual wt loss 5) f/u in 2-3 days JITENDRA ZAMORA MD Mar 01, 2025 20:05
[2025-03-02] VITALS (93 sets, daily range): BP systolic 75–117; BP diastolic 38–87; PULSE 55–65; RESP 9–15; TEMP 96.5–98.3; O2SAT 98–100
[2025-03-02 04:42] LABS: Hemoglobin 8.3 g/dL (13.5-17.5)
[2025-03-02 04:45] LABS: Hematocrit 24.8 % (41.0-53.0); Mean Corpuscular Hemoglobin 29.1 pg (28.0-32.0); Mean Corpuscular Volume 86.9 fL (80.0-100.0); Nucleated Red Blood Cells % 0.1 %
[2025-03-02 04:59] LABS: Alanine Aminotransferase 32 U/L (7-40); Anion Gap 18 (5-15); BUN/Creatinine Ratio 14.2 (10.0-20.0); Carbon Dioxide 22 mmol/L (20-31); Glucose 86 mg/dL (74-106); Magnesium 2.0 mg/dL (1.6-2.6); Sodium 138 mmol/L (136-145); Total Protein 6.5 g/dL (5.7-8.2)
[2025-03-02 05:00] LABS: Albumin 3.5 g/dL (3.2-4.8)
[2025-03-02 05:31] LABS: Alkaline Phosphatase 301 U/L (46-116); Bilirubin, Total 1.5 mg/dL (0.2-1.0); Calcium 8.5 mg/dL (8.7-10.4); Chloride 98 mmol/L (98-107); Potassium 3.4 mmol/L (3.5-5.1)
[2025-03-02 05:35] LABS: Blood Urea Nitrogen 93 mg/dL (9-23)
[2025-03-02] MEDS: POTASSIUM CHL 20MEQ/100ML 100 ML IV ONE (06:31)
--- NOTE | 2025-03-02 06:53 | DVHPN2 ---
Progress Note Date Seen: Mar 02, 2025 Has the PT tested + for MRSA If YES, has PT been informed?: No Medical Necessity Reason Pt with a Central, PICC or Fol: Yes The following are medically ne: Mora Catheter Reason for mora catheter: Nakul. Abd Surgery, Strict I&O, Total Immobilization Subjective Review of Systems Per RN. No significant changes. No BM. High RV. Remains on Vasopressin 0.01 mcg. Objective vital signs Vital Sign Date Time Temp Pulse Resp B/P (MAP) Pulse Ox O2 Delivery O2 Flow Rate FiO2 03/02/25 05:44 58 10 95/64 (74) 99 30 03/02/25 04:00 Mechanical Ventilator+ 03/02/25 04:00 97.5 97.5 02/28/25 16:41 40.0 Total Intake and Output 03/01/25 03/01/25 03/02/25 14:59 22:59 06:59 Intake Total 693.0 ml 523.0 ml 355.5 ml Output Total 350 ml Balance 693.0 ml 173.0 ml 355.5 ml medications Current Medications Medications Dose Ordered Sig/Serenity Route Start Time Stop Time Status Last Admin Dose Admin Sodium Chloride 10 ml QSHIFT@10,22 IV 02/04/25 22:00 03/01/25 22:21 10 ML Artificial Tears 1 drop Q4HP PRN EACHEYE 02/08/25 07:30 02/27/25 12:47 1 DROP Epoetin Gunnar-epbx 8,000 unit MWF@2100 SC 02/17/25 21:00 02/28/25 20:48 8,000 UNIT Piperacillin Sod/ Tazobactam Sod 50 ml @ 12.5 mls/hr Q8H IV 02/23/25 10:00 03/02/25 02:24 12.5 MLS/HR Pantoprazole Sodium 40 mg DAILY IV 02/24/25 10:00 03/01/25 07:44 40 MG Metoclopramide HCl 5 mg Q6HR IV 02/24/25 00:00 03/02/25 06:24 5 MG Erythromycin 250 mg Q6HR PO 02/24/25 18:00 03/02/25 06:24 250 MG Amino Acids 0 ml @ 0 mls/hr PER PHARMACY IV 02/24/25 21:00 Amino Acids/ Electrolytes/ Dextrose 1,000 ml @ 42 mls/hr DAILY@2200 IV 02/24/25 22:00 03/01/25 20:44 42 MLS/HR Enteral Nutritional Formula 1,000 ml 1000 GT 02/25/25 10:00 02/28/25 05:55 1,000 ML Diagnostic Test (Pha) 1 strip Q6HR 02/25/25 18:00 03/02/25 06:24 1 STRIP Insulin Human Regular FOLLOW SLIDING SCALE Q6HR SC 02/25/25 18:00 Dextrose 50 ml UD IV 02/25/25 18:00 Midodrine 10 mg TID@0600,1200,1800 PO 02/27/25 06:00 03/02/25 06:23 10 MG Vasopressin 20 units/Sodium Chloride 100 ml @ 3 mls/hr Q24H IV 02/28/25 17:30 03/02/25 01:15 3 MLS/HR Norepinephrine Bitartrate 250 ml @ 1.875 mls/ hr Q24H IV 02/28/25 18:00 Examination Neuro. Unchanged. Dilated fixed pupils. No reflexes. Pt has been moving for last 1-2 weeks. Do not seem purposeful. CV. HR 59 BP 97/69. Vasopressin 0.01 mcg/kg. Previous LSCV HD catheter site C/D/I. Right PC and PICC catheter exit sites remain C/D/I. Pulmonary: Tracheostomy in place. No active bleeding. C/D/I. Mechanical ventilator support 550/10/35%/+7. RR 10/min on vent display. GI: Soft, obese, nondistended and non tender. Incisions and dressing C/D/I. PEG in place. No further bleeding from PEG. TF on hold . Mora catheter in place. Clear yellow urine in collection bag Extremities. No edema Orbital edema resolved Skin: Resolved jaundice laboratory and microbiology Laboratory Tests 03/02/25 04:09 Test 03/02/25 04:09 Range/Units Serum Glucose 86 74-106 mg/dL Microbiology Date/Time Source Procedure Growth Status 02/22/25 21:21 Urine - Mora Port Urine Culture - Final Complete 02/20/25 09:30 Blood Blood Culture - Final NO GROWTH AFTER 5 DAYS OF INCUBATION. 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 CT revealed cerebral edema and tonsillar herniation.EEG no electric activity. Cerebral perfusion study confirmed no perfusion radiographically consistent with brain which was concordant with initial clinical diagnosis and EEG. However, pt continues demonstrating brainstem function as he is breathing over vent set rate. Fluctuating HR, RR, BP and temperature. Could be secondary to autonomic dysfunction. F/U (3rd) CT brain worsening cerebral edema and tonsillar herniation. CV:Hemodynamically labile. Vasopressin as needed. Bradycardic. Possible autonomic dysfunction. Continue Midodrine to 10 mg via PEG TID. Cardiology assistance appreciated. Mechanical DVT prophylaxis.Pulmonary hypertension possibly unknowingly preexistent. Duplex negative for DVT Pulmonary: VDRF. S/p tracheostomy. O2 Sat 100%. Continue ventilator. Sputum Cx Klebsiella pneumoniae sensitive to Zosyn. Anticipated D/C date 03/05 to complete 2 weeks of IV Abx. Continue ventilator support. Appreciate pulmonary medicine assistance. Pulmonary medicine following. GI: Continue BID GI prophylaxis. Stable LFTs. Possible TPN related cholestasis. TF on hold. Erythromycin as prokinetic.Continue Clinimix for now. Several AXR negative for ileus or SBO. TPN and closely monitor LFTs. : ARF/ATN. Strict I&O. Mora to gravity. Appreciate nephrology assistance. Replace/correct electrolytes, and HD per nephrology. Clinimix at 42 mL/hr. Heme/ID: WBC 11. Hgb stable. All Cx negative besides respiratory culture with Klebsiella PNA, which continues under Tx. UCx final negative. Minimizing blood draw frequency to avoid worsening anemia. Repeat labs AM. Appreciate hematology assistance. Continue Zosyn for Klebsiella pneumoniae PNA, D/C date 03/05 to complete 2 weeks. Endocrine: Tight glycemic control. Cortisol level normal. TSH normal, T3 and T4 low. ? subclinical hypothyroidism. IM stated that normal TSH, no need for replacement therapy. Skin: Skin care and pressure ulcer precautions. May transfer to Dr. Patten accepting physician at [facility]. Has not required increased vasopressor support. Minimal vasopressor support. Hemodynamic instability likely secondary to autonomic dysfunction. Assistance from all medical and nursing staff is greatly appreciated by family and myself. Plan discussed with: Other (RN) My Orders My Orders Orders - JITENDRA ZAMORA MD Procedure Category Date Status Time Clinimix Per Pharmacy [facility] 03/01/25 In Process 22:00 Imaging Transfer ORDERS 03/01/25 Transmitted Request 16:54 Dietary Evaluation Review Recommendations by RD: PPN/TPN Comments: 1) Increase TPN rate to meet at least 75% of estimated daily needs 2) Advance to renal cardiac diet when medically feasible, pending ST approval 3) Follow-up with cardiology, pulmonology, nephrology, neurology, and gastroenterology 4) Continue to monitor I&O, labs, and skin integrity Expected Outcomes/Goals: 1) nutritional support to meet at least 75% of estimated daily needs 2) labs and wound to improve 3) diet to advance 4) gradual wt loss 5) f/u in 2-3 days JITENDRA ZAMORA MD Mar 02, 2025 06:53
[2025-03-02] MEDS ORDERED: TPN PER PHARMACY 0 ML IV SCH (07:15)
[2025-03-02 07:38] LABS: Base Excess -2.6 mmol/L (-2.0-3.0)
--- NOTE | 2025-03-02 09:24 | DVHPN2 ---
Progress Note - Dictate Date Seen: Mar 02, 2025 Has the PT tested + for MRSA If YES, has PT been informed?: No Medical Necessity Reason Pt with a Central, PICC or Fol: Yes The following are medically ne: Mora Catheter Reason for mora catheter: Nakul. Abd Surgery, Strict I&O, Total Immobilization vital signs Vital Sign Date Time Temp Pulse Resp B/P (MAP) Pulse Ox O2 Delivery O2 Flow Rate FiO2 03/02/25 09:15 59 10 95/62 (73) 03/02/25 09:00 98 03/02/25 08:00 Mechanical Ventilator+ 35 35 03/02/25 04:00 97.5 97.5 02/28/25 16:41 40.0 Total Intake and Output 03/01/25 03/01/25 03/02/25 15:00 23:00 07:00 Intake Total 687.0 ml 529.0 ml 410.0 ml Output Total 350 ml 550 ml Balance 687.0 ml 179.0 ml -140.0 ml medications Current Medications Medications Dose Ordered Sig/Serenity Route Start Time Stop Time Status Last Admin Dose Admin Sodium Chloride 10 ml QSHIFT@10,22 IV 02/04/25 22:00 03/02/25 07:34 10 ML Artificial Tears 1 drop Q4HP PRN EACHEYE 02/08/25 07:30 02/27/25 12:47 1 DROP Epoetin Gunnar-epbx 8,000 unit MWF@2100 SC 02/17/25 21:00 02/28/25 20:48 8,000 UNIT Piperacillin Sod/ Tazobactam Sod 50 ml @ 12.5 mls/hr Q8H IV 02/23/25 10:00 03/02/25 07:35 12.5 MLS/HR Pantoprazole Sodium 40 mg DAILY IV 02/24/25 10:00 03/02/25 07:34 40 MG Metoclopramide HCl 5 mg Q6HR IV 02/24/25 00:00 03/02/25 06:24 5 MG Erythromycin 250 mg Q6HR PO 02/24/25 18:00 03/02/25 06:24 250 MG Amino Acids/ Electrolytes/ Dextrose 1,000 ml @ 42 mls/hr DAILY@2200 IV 02/24/25 22:00 03/01/25 20:44 42 MLS/HR Enteral Nutritional Formula 1,000 ml 1000 GT 02/25/25 10:00 02/28/25 05:55 1,000 ML Diagnostic Test (Pha) 1 strip Q6HR 02/25/25 18:00 03/02/25 06:24 1 STRIP Insulin Human Regular FOLLOW SLIDING SCALE Q6HR SC 02/25/25 18:00 Dextrose 50 ml UD IV 02/25/25 18:00 Midodrine 10 mg TID@0600,1200,1800 PO 02/27/25 06:00 03/02/25 06:23 10 MG Vasopressin 20 units/Sodium Chloride 100 ml @ 3 mls/hr Q24H IV 02/28/25 17:30 03/02/25 01:15 3 MLS/HR Norepinephrine Bitartrate 250 ml @ 1.875 mls/ hr Q24H IV 02/28/25 18:00 Amino Acids 0 ml @ 0 mls/hr PER PHARMACY IV 03/02/25 07:15 UNV laboratory and microbiology Laboratory Tests 03/02/25 04:09 Test 03/02/25 04:09 Range/Units Serum Glucose 86 74-106 mg/dL Assessment/Plan Still in ICU. On vent support. No gross higher brain reflexes. Pupils are dilated and fixed. Anoxic/Hypoxic Encephalopathy No reported arrhythmia overnight s/p Tracheostomy s/p PEG placement s/p PRBC transfusion (repeated) On Midodrine longterm Prognosis: Poor Echocardiogram revealed no WMA and also revealed good EF. It also revealed increased Pulmonary Artery Pressure in favor of component of Pulmonary Hypertension. s/p Hemodialysis Received blood and platelet transfusion repeatedly Patient is a 24-year-old gentleman who was originally brought to the hospital for post arrest. Patient is seen in postop area. Patient is intubated and on multiple pressor supports. Patient is not source of history. Information was obtained by reviewing the chart, talking to patient's family/mother and communicating with staff and reviewing outside records ([facility]). Patient did have elective outpatient laparoscopic cholecystectomy in [facility] on January 28 2025. As per mother, after going home, patient was feeling very hungry and was eating and drinking a lot. He started feeling abdominal pain with nausea at night and in the morning was short of breath. As per mother: patient has stopped breathing in the morning and family called 911. As per mother, as per guidance of 911, family started CPR until EMS arrived. Patient was intubated and was brought to the hospital by EMS. Since arrival to [facility], patient was seen by surgeon who took the patient to operating room and performed laparotomy (there was hepatic hematoma). Postoperatively, the patient has remained hypotensive. There is signs for multiorgan involvement. Patient was not alert and did not complain of any chest pains. Labs revealed increased troponin. Cardiology is involved for cardiac aspects of care and abnormal troponin. First available EKG reveals sinus tachycardia with no specific ST-T changes. Telemetry had revealed sinus tachycardia throughout the stay. Patient is found to have significant anemia and is receiving blood transfusion at the time of evaluation. It is of note that at the time of evaluation patient does not have any reflexes. On vent via tracheostomy. Mucosa pale. Dilated and fixed pupils, Scattered rhonchi in the lungs. Cardiac: Tachycardic. No murmur. Abdomen is covered by dressing. Extremities do not reveal any edema. Dorsalis pedis is 1+ bilateral. Patient does not respond to any stimuli. Reported past medical history includes asthma and obesity. Reportedly, on January 23, 2025: Patient presented to [facility] for abdominal pain/nausea/vomiting. At that point the problems were ongoing for few weeks. In [facility], CT of the abdomen and MRCP were performed. Patient was seen by GI/surgery. Patient was found to have gallstones. Patient was discharged and later on January 28, 2025 presented back to [facility] for elective laparoscopy cholecystectomy. Patient was discharged home from [facility] after laparoscopic cholecystectomy. As per mother, patient does not have baseline history of any cardiac history. As per mother, patient was using marijuana. Mother denies any previous substance abuse besides marijuana. No specific family history is reported On January 23, 2025, labs in [facility] revealed creatinine of 0.84, hemoglobin of 15.2 and troponin (high sensitive) of <3. At that point EKG was normal WBC: 20.1 - 19.0 - 22.7 - 20.6 - 28.4 - 20.3 - 21.0 - 25.2 - 29.8 - 29.5 - 29.0 - 26.2 - 21.7 - 19.7 - 17.7 - 15.3 - 12.2 - 10.5 - 11.2 - 13.0 - 10.7 - 9.0 - 9.0 - 10.3 - 10.3 - 10.1 - 11.0 - 12.4 - 13.0 - 12.0 - 15.1 - 13.8 - 14.9 - 13.1 - 10.2 - 12.4 - 15.0 - 14.3 - 18.0 - 12.8 - 11.7 Hemoglobin: 8.3 - 6.5 - 12.1 - 11.1 - 12.1 - 9.3 - 9.2 - 9.1 - 8.4 - 9.0 - 9.5 - 8.8 - 8.4 - 8.0 - 9.7 - 9.6 - 9.8 - 9.6 - 9.7 - 9.8 - 9.1 - 8.5 - 8.8 - 8.9 - 8.7 - 8.8 - 9.7 - 9.1 - 7.9 - 8.2 - 10.1 - 9.5 - 9.7 - 9.6 - 10.0 - 7.9 - 8.0 - 8.7 - 8.6 - 9.4 - 8.4 - 8.3 Fibrinogen: 108 - 316 - 537 - 689 - >860 - 422 Creatinine: 4.02 - 3.78 - 3.90 - 3.95 - 4.34 - 5.44 - 6.05 - 6.73 - 7.31 - 7.77 - 6.64 - 7.30 - 4.91 - 5.32 - 7.40 - 5.98 - 7.66 - 6.28 - 7.71 - 8.67 - 6.87 - 5.62 - 7.59 - 8.95 - 7.51 - 9.04 - 6.23 - 7.09 - 5.33 - 6.90 - 4.95 - 6.31 - 7.51 - 6.00 - 7.40 - 8.68 - 7.46 - 8.53 - 5.78 - 6.63 - 5.55 - 6.57 Potassium: 5.6 - 4.6 - 4.8 - 3.9 - 2.9 - 2.9 - 3.6 - 3.8 - 4.9 - 5.4 - 6.0 - 5.1 - 5.3 - 6.1 - 6.0 - 4.6 - 4.4 - 4.3 - 3.5 - 3.4 - 3.7 - 4.5 - 5.7 - 5.2 - 4.0 - 3.8 - 4.1 - 4.5 - 4.9 - 4.7 - 4.6 - 4.4 - 4.6 - 3.7 - 3.5 - 4.5 - 3.7 - 5.1 - 6.0 - 4.4 - 4.9 - 4.2 - 3.0 - 4.6 - 3.0 - 3.4 AST/ALT: 676/700 - 2327/6 - 4636/2521 - -/1995 - 2500/1989 - 1780/1821 - 808/995 - 586/735 - 456/444 - 312/290 - 237/163 - 215/125 - 190/87 - 200/74 - 202/66 - 189/53 - 186/44 - 186/45 - 192/38 - 193/34 - 214/34 - 195/30 - 261/42 - 241/47 - 246/63 - 265/69 - 208/52 - 177/46 - 168/42 - 146/37 - 98/28 - 94/30 - 104/29 - 125/31 - 139/29 - 159/32 Lactic acid: 17.9 - 17.2 - 11.4 Troponin (high sensitive): 2973 - 2712 - 4364 - 1290 - 4385 TSH: 11.05 Urine Toxicology: positive for Fentanyl and Benzodiazepine Chest x-ray revealed: Lines and Tubes: Endotracheal tube projects 2.2 cm above the meghan. Right internal jugular central venous catheter tip projects over superior vena cava. Lungs: No focal consolidation. Low lung volumes. Pleura: No effusion. No pneumothorax. Cardiomediastinal contours: Unremarkable Bones: No acute osseous abnormality. IMPRESSION: Lines and tubes as above. Low lung volumes. Repeat chest x-ray revealed: IMPRESSION: Lines and tubes in satisfactory position. Mild increased pulmonary vascular congestion Repeat chest xry revealed: IMPRESSION: Lines and tubes in satisfactory position. Mild increased pulmonary vascular congestion Repeat chest xry revealed: IMPRESSION: 1. Low lung volumes with concomitant crowding of the pulmonary vasculature. 2. No evidence of focal consolidation. 3. Lines and tubes unchanged. Repeat chest xry revealed: IMPRESSION: 1. Slight interval retraction of the endotracheal tube such that the tip now projects approximately 4.7 cm above the level of the meghan. Remaining lines and tubes unchanged. 2. Otherwise no significant change compared to prior exam. Repeat chest xry revealed: IMPRESSION: 1. Slight interval advancement of endotracheal tube such that the tip now projects approximately 1.7 cm above the level of the meghan. Remaining lines and tubes unchanged. 2. Otherwise no significant change compared to prior exam. Repeat chest xry revealed: IMPRESSION: 1. Slight interval retraction of the endotracheal tube such that the tip now projects approximately 3.3 cm above the level of the meghan. Remaining lines and tubes unchanged. 2. No evidence of acute cardiopulmonary process. Repeat chest xry revealed: IMPRESSION: 1. Endotracheal tube in appropriate position. Remaining lines and tubes unchanged. 2. No evidence of acute cardiopulmonary process. Repeat chest xry revealed: IMPRESSION: 1. Small right pleural effusion. 2. Lines and tubes unchanged. Repeat chest xry revealed: IMPRESSION: 1. Small right pleural effusion. 2. Lines and tubes unchanged. Repeat chest xry revealed: IMPRESSION: 1. Small bilateral pleural effusions. 2. Lines and tubes unchanged. Repeat chest xry revealed: IMPRESSION: 1. Slight interval advancement of the endotracheal tube. Remaining lines and tubes unchanged. 2. No evidence of acute cardiopulmonary process. Repeat chest xry revealed: IMPRESSION: 1. Slight interval retraction of the endotracheal tube such that the tip now projects approximately 3.3 cm above the level of the meghan. Remaining lines and tubes unchanged. 2. No evidence of acute cardiopulmonary process. Repeat chest xry revealed: Bowel gas pattern is unremarkable. Enteric tube tip projects over the expected region of the stomach. The lung bases demonstrates bibasilar atelectasis. The lower pelvis is collimated from field of view. No acute osseous abnormality identified. Repeat chest xry revealed: Lines and Tubes: Endotracheal tube tip projects approximately 5.1 cm above the level of the meghan. Enteric catheter terminates within the gastric lumen. Right peripherally inserted central catheter tip and left subclavian central venous catheter tip project over the distal superior vena cava. Lungs: Clear Pleura: No effusion. No pneumothorax. Cardiomediastinal contours: Unremarkable Bones: Unremarkable IMPRESSION: 1. No radiographic evidence of acute cardiopulmonary abnormality. 2. Lines and tubes as above. Repeat chest xry revealed: IMPRESSION: 1. Stable position of the support lines and tubes. 2. Bibasilar airspace disease which may reflect atelectasis and/or pneumonia. Possible small bilateral pleural effusions. Repeat chest xry revealed: IMPRESSION: 1. Lines and tubes unchanged. 2. Persistently diminished lung volumes with concomitant exaggeration of the pulmonary vasculature. No evidence of acute cardiopulmonary process. Repeat chest xry revealed: IMPRESSION: 1. No acute cardiopulmonary disease. 2. Lines and tubes as above. Repeat chest xry revealed: IMPRESSION: 1. Intervally placed right IJ catheter projects in appropriate remaining support devices are stable.2. No other significant change from the previous study. Persistent low lung volumes with vascular crowding and basilar atelectasis. Repeat chest xry revealed: IMPRESSION: Heart is stable in size. There are low lung volumes with probable small left pleural effusion and bibasilar atelectasis. Support lines and tubes appear unchanged in satisfactory position. No pneumothorax. No significant interval change. Repeat chest xry revealed: IMPRESSION: Unchanged bibasilar opacities, likely atelectasis with small pleural effusions Repeat chest xry revealed: IMPRESSION: 1. No significant change from the previous study. Stable support devices. Persistent left pleural effusion and bibasilar airspace disease. Repeat chest xry revealed: IMPRESSION: 1. Interval removal of enteric catheter. Remaining Lines and tubes unchanged. 2. Otherwise, no significant change compared to prior exam allowing for differences in technique. Repeat chest xry revealed: IMPRESSION: Low lung volumes with bibasilar subsegmental atelectasis. Repeat chest xry revealed: IMPRESSION: 1. Tracheostomy ventilation. 2. Low lung volumes and bilateral lung base atelectasis versus scarring re-identified. Repeat chest xry revealed: IMPRESSION: 1. Tracheostomy ventilation. 2. Increased interstitial prominence in the left lung may be due to asymmetric CHF or interstitial pneumonia. 3. Low lung volumes and bilateral lung base opacities. Repeat chest xry revealed: Lines and Tubes: Tracheostomy tube is unchanged. There is a right central venous catheter with the tip terminating in the cavoatrial junction. There is a right PICC with its tip terminating in the superior vena cava. Lungs: Left basilar airspace disease. Pleura: No effusion. No pneumothorax. Cardiomediastinal contours: Unremarkable Bones: No acute osseous abnormality. IMPRESSION: 1. Left basilar airspace disease. Repeat chest xry revealed: IMPRESSION: Low lung volumes and bibasilar subsegmental atelectasis. KUB revealed: IMPRESSION: No evidence of ileus or small-bowel obstruction. Brain scan revealed: FINDINGS: Absence of cerebral blood flow is noted along with no brain parenchymal radiotracer uptake. Increased activity is seen in the central face likely representing vascular shunting consistent with the so-called "hot nose" sign. Findings suggest brain however clinical correlation is necessary. IMPRESSION: Findings described above, which would be consistent with brain in the appropriate clinical setting, however clinical correlation is needed. CT of the chest/abdomen/pelvis revealed: IMPRESSION: 1. Hepatic hematoma measuring up to approximately 8.6 cm in greatest dimension, as described above, with hemorrhage extending beyond the liver capsule and into the right pericolic gutter as well as into the pelvis. No definite active arterial bleeding is seen on this exam, although limited evaluation due to the timing of contrast, as this was not a CTA exam. 2. Postsurgical changes of cholecystectomy. 3. Dilated fluid-filled small bowel loops, may be due to postoperative ileus. No small bowel obstruction. 4. Small volume pneumoperitoneum, likely due to recent surgery. Small volume of gas are seen in the upper ventral abdomen from the recent surgery. 5. Dependent atelectasis in the lower lobes. Otherwise, no acute disease in the chest. 6. Endotracheal tube and enteric tube in place. 7. Atrophic right kidney incidentally noted. 8. Additional findings as described above. Critical findings Critical Result: Acute hepatic hematoma with hemorrhage extending beyond the liver capsule into the adjacent portions of the abdomen and into the pelvis as detailed above. Repeat CT of chest/abdomen/pelvis revealed: There is limited interpretation of the chest, abdomen and pelvis without administration of intravenous contrast. Endotracheal tube tip terminates just at the meghan / left main bronchus. Diffuse bilateral pulmonary airspace consolidation bilaterally significantly increased. Bilateral lower lobe lobar consolidation/ atelectasis, increased from prior. Small bilateral pleural effusions. There is extensive edema/ stranding within the upper anterior chest, neck region/supraclavicular region. There is some hyperdensity within this region which could represent components of hematoma / blood products. Heterogeneous appearance of the thyroid gland. Right IJ catheter terminating at the cavoatrial junction. Adrenal glands unremarkable in shape. Perisplenic hematoma. Interval postsurgical changes in the right upper quadrant of the abdomen. There appears to be surgicel/gaseous collection within the previous hematoma cavity, likely representing surgicel. There is a radiopaque density within the resection cavity as well which measures 6.2 x 4.6 cm.. Postoperative changes of the right anterior abdomen with soft tissue emphysema. Small amount of pneumoperitoneum Surgical drainage catheter terminating in the right upper quadrant of the abdomen Right renal parenchymal atrophy. Left kidney demonstrates perinephric edema / stranding. No left hydronephrosis. Nasogastric tube projects towards the distal stomach. Moderate distention small bowel loops. Rectal catheter. Moderate distention of the large bowel loops. Normal appendix. Abdominal aorta normal in caliber. Small amount of ascites fluid/ mesenteric edema. Bladder decompressed by Mora catheter. Soft tissue edema /anasarca. Mesenteric edema. Small amount of ascites fluid. The osseous structures are stable. IMPRESSION: Limited evaluation without contrast. Interval evacuation of the right upper quadrant hematoma. Surgicel within the resection cavity. No significant interval development of new hematoma. There are 2 radiopaque lap pads within the resection cavity . Findings reviewed with Dr. Ledesma at 11:51 a.m. on 01/30/2025 Perisplenic hematoma, similar to previous examination. Extensive bilateral pulmonary airspace consolidation, significantly increased from previous examination. Small bilateral pleural effusions. Right upper quadrant drainage catheter. Pneumoperitoneum. Soft tissue edema / anasarca. Small amount of ascites fluid/ mesenteric edema. Extensive edema within the anterior chest, neck region. Heterogeneous appearance thyroid gland. Other findings as described. CT of the head revealed: IMPRESSION: 1. No evidence of acute intracranial abnormality. Repeat CT of head revealed: FINDINGS: Cerebellar tonsilar herniation. There is sulcal and ventricular effacement. The basal cisterns are effaced. Loss of mario-white matter differentiation is noted. The skull and visible facial bones are intact. The paranasal sinuses, mastoid air cells and middle ear cavities are well-aerated. The soft tissues of the scalp are unremarkable. IMPRESSION: Diffuse cerebral edema with cerebellar tonsillar herniation. Recommend MRI brain for further evaluation. Repeat CT of head revealed: FINDINGS: There is diffuse low attenuation throughout the brain with increased effacement of the ventricles and complete sulcal effacement. There is cerebellar tonsillar herniation. The orbits are normal. There is moderate mucosal thickening within the paranasal sinuses and mastoid air cells. The soft tissues and osseous structures appear within normal limits. IMPRESSION: 1. Findings as above suggesting worsening diffuse cerebral edema in the setting of anoxic brain injury in the given clinical setting. Further clinical correlation is suggested. CT of Neck revealed: IMPRESSION: Limited evaluation without contrast. Extensive soft tissue edema within the neck extending into the anterior / upper chest and anterior mediastinum . Retropharyngeal edema. Heterogeneous appearance of the thyroid gland. Inferior cerebellar tonsillar herniation better seen on the prior CT Renal Ultrasound revealed: IMPRESSION: 1. Right kidney not visible. 2. Left kidney is enlarged. 3. No hydronephrosis. Venous duplex of lower ext revealed: IMPRESSION: NO SONOGRAPHIC EVIDENCE FOR DEEP VENOUS THROMBOSIS IN THE RIGHT LOWER EXTREMITY VEINS. Repeat (bilateral) Venous duplex of lower ext revealed: Impression: 1. No right or left femoropopliteal venous thrombosis. EEG reported: This is a remarkably abnormal EEG, this EEG seen in severe cerebral dysfunction due to metabolic/hypoxic encephalopathy or medication effects, unless this is caused by reversible etiology, this EEG is suggestive of a poor prognosis for meaningful recovery, please correlate clinically. Arrival EKG revealed sinus tachycardia with nonspecific ST-T changes Tele reveals sinus tachycardia Echocardiogram revealed: Technically limited study secondary to poor acoustic windows. Left ventricle: Left ventricle was normal-sized with normal systolic function. LVEF was 55-60%. No gross wall motion abnormality was seen. Right ventricle was mildly dilated with normal systolic function. Left atrium was normal-sized. Right atrium was mildly dilated. Aortic valve: Aortic valve was not well visualized. There was no aortic insufficiency/stenosis. There was no mitral regurgitation. There was trace tricuspid regurgitation. Pulmonary valve was not well visualized. IVC was not visualized. Right ventricular systolic pressure was assessed around 48 mm Hg. There was no pericardial effusion. Patient is a 24-year-old gentleman who presented with post arrest. It seems that the patient had hemorrhagic (intra-abdominal) presentation. Patient did have elective laparoscopic cholecystectomy the day before presentation. On the day of presentation, the patient was taken back to operating room and this time Laparotomy was done for hepatic hematoma. Patient does have multiorgan involvement. Clinically there is no brainstem reflexes. Shock liver/acute renal failure is considered. Troponin has been high. EKG did not reveal any STEMI. Presentation could be high troponin secondary to demand physiology. Patient does not have any risk factors for baseline coronary artery disease. In ideal scenario, ischemic workup/cardiac catheterization could be more revealing. Unfortunately, the patient does have acute renal failure which could be worsened by cardiac catheterization at this point. As there was no higher brain functions the suggestion is to wait and see if patient regains any higher brain function. It is of note that during cardiac catheterization, the patient may need some anticoagulation/antiplatelets. At this point patient is having significant anemia/bleeding and receiving blood transfusion and holding off of scenario forcing Anticoagulation/antiplatelets is advised. I had a long discussion with family members and Mother (repeatedly). Clinically patient has multiorgan failure. Secondary to active bleeding, we will avoid anticoagulation/antiplatelets for now. Being managed in ICU. Was taken to OR repeatedly. Still no reflexes. Echocardiogram revealed no WMA and also revealed good EF. It also revealed increased Pulmonary Artery Pressure in favor of component of Pulmonary Hypertension. Review of Echo images revealed good right ventricular systolic function. Not typical for Pulmonary Emboli. Still, PE cannot be ruled out. If PE is ruled out, then it is possible that patient had Pulmonary Hypertension from before (Baseline history of Asthma may actually reflect it). s/p PRBC transfusion (multiple). Being followed by Surgery, Nephrology, Hematology, Pulmonary, Neurology and GI. . Repeat imaging revealed cerebellar tonsillar herniation. Neurology diagnosed Hypoxic/Metabolic Encephalopathy also. EEG findings question meaningful recovery. Neurology declared patient: brain . Neurology second opinion was in favor of Anoxic/Hypoxic Encephalopathy. Repeat imaging of brain revealed worsening diffuse cerebral edema and also again revealed cerebellar tonsillar herniation. Family are contemplating Trach/PEG. Patient is seen by GI. s/p Tracheostomy. s/p PEG. s/p repeated PRBC transfusion. On pressure support. s/ p Arrest Intra-abdominal bleeding Hepatic hematoma Multiorgan failure, due to shock Shock liver Lactic Acidosis Acute renal failure Acute respiratory failure, on vent support Status post laparotomy Status post laparoscopic cholecystectomy Abnormal troponin, evaluated to reflect possible demand physiology History of gallstones History of asthma Obesity History of marijuana abuse Consumptive Coagulopathy / DIC Pulmonary Hypertension Cerebellar tonsillar Herniation. Encephalopathy, hypoxic/metabolic Renal failure, started on hemodialysis Brain scan questions brain Anoxic Encephalopathy s/p Tracheostomy s/p PEG Hypotension, Cardiac suggestion for management: Manage in ICU Follow-up electrolytes and kidney function tests and correct abnormalities Evaluation and management of respiratory failure as per Pulmonary Evaluation and management of Cerebellar tonsillar herniation and worsening cerebral edema as per Neurology/surgery/primary team V/Q scan could not be completed Anoxic/Hypoxic Encephalopathy Echocardiogram revealed no WMA and also revealed good EF. It also revealed increased Pulmonary Artery Pressure in favor of component of Pulmonary Hypertension. Hematology follow up (to comment on prophylaxis / treatment of Pulmonary Emboli) Surgical follow up Nephrology follow up (started on hemodialysis) and Hematology follow up On Midodrine IV pressure support (Vasopressin) to keep MAP above 55: if needed DVT prophylaxis as per primary team (compression stocking Vs Lovenox..) Long-term prognosis depends on the above and most importantly regaining of the higher brain function: looks very grim Ischemic workup may be considered only after regaining higher brain function or any special change in clinical presentation Further evaluation and management depends on the above and clinical course A total of 75 minutes was spent reviewing the patient record, examining the patient, making a diagnostic and therapeutic plan, discussing this plan with medical personnel, following up on diagnostic studies and following the patient for clinical stability excluding any and all procedures. At least 50% of this time was spent in direct, [id number] contact. Thank you for allowing me to participate in this patient's care. Further recommendations will depend on patient's clinical course. Please do not hesitate to contact me if you have any questions or concerns. This medical document was created using electronic medical record system with [employer] computerized dictation system. Although this document has been carefully reviewed, there may still be some phonetic and typographical errors. These areas are purely typographical due to the imperfection of the software programs, and do not reflect any compromise in the patient's medical care. Dietary Evaluation Review Recommendations by RD: PPN/TPN Comments: 1) Increase TPN rate to meet at least 75% of estimated daily needs 2) Advance to renal cardiac diet when medically feasible, pending ST approval 3) Follow-up with cardiology, pulmonology, nephrology, neurology, and gastroenterology 4) Continue to monitor I&O, labs, and skin integrity Expected Outcomes/Goals: 1) nutritional support to meet at least 75% of estimated daily needs 2) labs and wound to improve 3) diet to advance 4) gradual wt loss 5) f/u in 2-3 days Plan discussed with: Other (nurse) KATHLEEN COHEN MD Mar 02, 2025 09:24
--- NOTE | 2025-03-02 10:55 | DVHPNRES ---
Progress Note Date Seen: Mar 02, 2025 Resident Creating Document: SAUL SCHWARTZ RESIDENT Has the PT tested + for MRSA If YES, has PT been informed?: No Medical Necessity Reason Pt with a Central, PICC or Fol: Yes The following are medically ne: Mora Catheter Reason for mora catheter: Nakul. Abd Surgery, Strict I&O, Total Immobilization Subjective Review of Systems Patient seen and evaluated in bedside today. Patient currently on mechanical ventilation, vent setting peep 7, tidal volume 550, FiO2 35, respiratory rate 10. Labs reviewed leukocytosis trending down. Objective vital signs Vital Sign Date Time Temp Pulse Resp B/P (MAP) Pulse Ox O2 Delivery O2 Flow Rate FiO2 03/02/25 10:15 56 10 86/42 (57) 98 03/02/25 10:00 35 03/02/25 10:00 Mechanical Ventilator+ 03/02/25 04:00 97.5 97.5 02/28/25 16:41 40.0 Total Intake and Output 03/01/25 03/01/25 03/02/25 15:00 23:00 07:00 Intake Total 687.0 ml 529.0 ml 410.0 ml Output Total 350 ml 550 ml Balance 687.0 ml 179.0 ml -140.0 ml medications Current Medications Medications Dose Ordered Sig/Serenity Route Start Time Stop Time Status Last Admin Dose Admin Sodium Chloride 10 ml QSHIFT@10,22 IV 02/04/25 22:00 03/02/25 07:34 10 ML Artificial Tears 1 drop Q4HP PRN EACHEYE 02/08/25 07:30 02/27/25 12:47 1 DROP Epoetin Fiona-epbx 8,000 unit MWF@2100 SC 02/17/25 21:00 02/28/25 20:48 8,000 UNIT Piperacillin Sod/ Tazobactam Sod 50 ml @ 12.5 mls/hr Q8H IV 02/23/25 10:00 03/02/25 07:35 12.5 MLS/HR Pantoprazole Sodium 40 mg DAILY IV 02/24/25 10:00 03/02/25 07:34 40 MG Metoclopramide HCl 5 mg Q6HR IV 02/24/25 00:00 03/02/25 06:24 5 MG Erythromycin 250 mg Q6HR PO 02/24/25 18:00 03/02/25 06:24 250 MG Amino Acids/ Electrolytes/ Dextrose 1,000 ml @ 42 mls/hr DAILY@2200 IV 02/24/25 22:00 03/02/25 21:59 03/01/25 20:44 42 MLS/HR Enteral Nutritional Formula 1,000 ml 1000 GT 02/25/25 10:00 02/28/25 05:55 1,000 ML Diagnostic Test (Pha) 1 strip Q6HR 02/25/25 18:00 03/02/25 06:24 1 STRIP Insulin Human Regular FOLLOW SLIDING SCALE Q6HR SC 02/25/25 18:00 Dextrose 50 ml UD IV 02/25/25 18:00 Midodrine 10 mg TID@0600,1200,1800 PO 02/27/25 06:00 03/02/25 06:23 10 MG Vasopressin 20 units/Sodium Chloride 100 ml @ 3 mls/hr Q24H IV 02/28/25 17:30 03/02/25 01:15 3 MLS/HR Norepinephrine Bitartrate 250 ml @ 1.875 mls/ hr Q24H IV 02/28/25 18:00 Amino Acids 0 ml @ 0 mls/hr PER PHARMACY IV 03/02/25 07:15 Examination General: RASS -5, afebrile, mucosae are moist, currently on vent Cardiovascular: Normal S1 and S2. No murmurs, gallops or rubs Respiratory: Mechanically assisted ventilation, equal bilateral airway entree. Clear lung sounds on auscultation Abdomen: Soft, nontender, no organomegaly, with surgical wound on abdomin MSK/skin: Mobilization of limbs cannot be evaluated. Skin is dry and warm. Neurological: Orientation cannot be assessed. Pupils are dilated and nonreactive to light, absent brainstem reflexes. laboratory and microbiology Laboratory Tests 03/02/25 04:09 Test 03/02/25 04:09 Range/Units Serum Glucose 86 74-106 mg/dL Microbiology Date/Time Source Procedure Growth Status 02/22/25 21:21 Urine - Mora Port Urine Culture - Final Complete 02/20/25 09:30 Blood Blood Culture - Final NO GROWTH AFTER 5 DAYS OF INCUBATION. Complete 02/19/25 11:44 Trachea Gram Stain - Final Complete 02/19/25 11:44 Respiratory Culture - Final Klebsiella pneumoniae Complete 01/29/25 10:43 Sputum Gram Stain - Final Complete 01/29/25 10:43 Sputum Respiratory Culture - Final Complete Problem List/Assessment/Plan Problem List/Assessment/Plan This is a 24-year-old male with no significant past medical history underwent elective laparoscopic cholecystectomy on 01/28 at [facility] (due to cholelithiasis), on 2nd day postop at home became lethargic and subsequently coded. ROSC was achieved with CPR, abdominal CT scan showed intra-abdominal hematoma, underwent emergent laparotomy and drained about 500-750 thrombosed and dark blood. NEURO: Hypoxic encephalopathy, due to cardiac arrest Anoxic brain injury * RASS Score -5 * Head CT from 01/30 shows, Cerebellar tonsilar herniation. There is sulcal and ventricular effacement. The basal cisterns are effaced. Loss of mario-white matter differentiation is noted. * Head CT on 02/11 shows worsening diffuse cerebral edema in the setting of anoxic brain injury * BRNNM-brain imaging, shows absence blood flow, findings suggest brain in the appropriate clinical setting * transfering to LTAC CARDIOVASCULAR: NSTEMI possible type 2 Status post cardiac arrest Distributive shock (vasoplegia)/neurogenic shock/septic shock vasopressin * Cardiology on the board, recommended medical management * Echo from 01/30 shows,Technically limited study secondary to poor acoustic windows, normal LV size and function, 55-60% * Levophed, midodrine 10 mg t.i.d. hydrocortisone 50 mg q.6 hours PULMONARY: Acute hypoxic respiratory failure, likely due to anoxic brain injury Cxr showed bilateral mild pulmonary vascular congestion GASTROINTESTINAL: Acute transaminitis secondary to hypovolemic shock Coagulopathy Hypoalbuminemia Status post laparoscopic cholecystectomy Status post exploratory laparotomy for hemoperitoneum Transaminitis, likely due to TPN GENITOURINARY: HARLEEN secondary to hypovolemic shock * Nephrology on the board, performed dialysis on 02/03 * IV Bumex 2 mg b.i.d. METABOLIC: Severe anion gap metabolic acidosis due to lactic acidosis Hypernatremia Grade 2 obesity, BMI 35.7 kg per m2 Hypoglycemia HEME: Severe anemia, due to bleeding * Received 3 units of PRBC, 2 units of FFP and 1 unit of cryoprecipitate * Monitor H&H and epoetin fiona INFECTIOUS DISEASE: Leucocytosis Lactic acidosis * Urine culture, blood culture and respiratory culture shows no growth * On Zosyn DIET: TPN DVT prophylax: Hold GI prophylaxis: Protonix Code status: Full code LINES/DRAINS/ACCESS: ETT: Intubated on 01/29 IV access: Lt IJ placed on 01/29/25 left subclavian, tunneled dialysis catheter placed on 02/14 Drips: On Levophed Mora catheter: Placed on 01/29 DISPOSITION: ICU status Patient's status discussed with the patient's mother (Melita) at the bedside. Critical care time spent more than 51 minutes, including patient care, chart review, and updating the family. Excluding any procedures. Case discussed with Dr. Kay Plan discussed with: Other (Nurse, mother) Dietary Evaluation Review Recommendations by RD: PPN/TPN Comments: 1) Increase TPN rate to meet at least 75% of estimated daily needs 2) Advance to renal cardiac diet when medically feasible, pending ST approval 3) Follow-up with cardiology, pulmonology, nephrology, neurology, and gastroenterology 4) Continue to monitor I&O, labs, and skin integrity Expected Outcomes/Goals: 1) nutritional support to meet at least 75% of estimated daily needs 2) labs and wound to improve 3) diet to advance 4) gradual wt loss 5) f/u in 2-3 days SAUL SCHWARTZ RESIDENT Mar 02, 2025 10:55
--- NOTE | 2025-03-02 15:47 | DVHPN2 ---
Progress Note - Dictate Date Seen: Mar 02, 2025 Has the PT tested + for MRSA If YES, has PT been informed?: No Medical Necessity Reason Pt with a Central, PICC or Fol: Yes The following are medically ne: Mora Catheter Reason for mora catheter: Nakul. Abd Surgery, Strict I&O, Total Immobilization Subjective Patient's family at bedside vital signs Vital Sign Date Time Temp Pulse Resp B/P (MAP) Pulse Ox O2 Delivery O2 Flow Rate FiO2 03/02/25 15:15 60 12 106/72 (83) 99 03/02/25 14:06 35 03/02/25 14:00 Mechanical Ventilator+ 03/02/25 12:00 97.6 97.6 02/28/25 16:41 40.0 Total Intake and Output 03/01/25 03/01/25 03/02/25 15:00 23:00 07:00 Intake Total 687.0 ml 529.0 ml 410.0 ml Output Total 350 ml 550 ml Balance 687.0 ml 179.0 ml -140.0 ml medications Current Medications Medications Dose Ordered Sig/Serenity Route Start Time Stop Time Status Last Admin Dose Admin Sodium Chloride 10 ml QSHIFT@10,22 IV 02/04/25 22:00 03/02/25 07:34 10 ML Artificial Tears 1 drop Q4HP PRN EACHEYE 02/08/25 07:30 02/27/25 12:47 1 DROP Epoetin Gunnar-epbx 8,000 unit MWF@2100 SC 02/17/25 21:00 02/28/25 20:48 8,000 UNIT Piperacillin Sod/ Tazobactam Sod 50 ml @ 12.5 mls/hr Q8H IV 02/23/25 10:00 03/02/25 07:35 12.5 MLS/HR Pantoprazole Sodium 40 mg DAILY IV 02/24/25 10:00 03/02/25 07:34 40 MG Metoclopramide HCl 5 mg Q6HR IV 02/24/25 00:00 03/02/25 11:54 5 MG Erythromycin 250 mg Q6HR PO 02/24/25 18:00 03/02/25 11:54 250 MG Amino Acids/ Electrolytes/ Dextrose 1,000 ml @ 42 mls/hr DAILY@2200 IV 02/24/25 22:00 03/02/25 21:59 03/01/25 20:44 42 MLS/HR Enteral Nutritional Formula 1,000 ml 1000 GT 02/25/25 10:00 02/28/25 05:55 1,000 ML Diagnostic Test (Pha) 1 strip Q6HR 02/25/25 18:00 03/02/25 11:54 1 STRIP Insulin Human Regular FOLLOW SLIDING SCALE Q6HR SC 02/25/25 18:00 Dextrose 50 ml UD IV 02/25/25 18:00 Midodrine 10 mg TID@0600,1200,1800 PO 02/27/25 06:00 03/02/25 11:54 10 MG Vasopressin 20 units/Sodium Chloride 100 ml @ 3 mls/hr Q24H IV 02/28/25 17:30 03/02/25 01:15 3 MLS/HR Norepinephrine Bitartrate 250 ml @ 1.875 mls/ hr Q24H IV 02/28/25 18:00 Amino Acids 0 ml @ 0 mls/hr PER PHARMACY IV 03/02/25 07:15 Fat Emulsion Intravenous 100 ml/Sodium Chloride 20 meq/ Sodium Acetate 40 meq/Potassium Chloride 40 meq/ Magnesium Sulfate 4 meq/ Multivitamins 10 ml/Chromium/ Copper/Manganese/ Zinc 1 ml/Amino Acids/Dextrose 957 ml @ 40 mls/hr [id number] IV 03/02/25 22:00 03/03/25 21:59 objective gen: intubated, unresponsive lungs: occ ronchi cvs: no rub ext: no edema laboratory and microbiology Laboratory Tests 03/02/25 04:09 Test 03/02/25 04:09 Range/Units Serum Glucose 86 74-106 mg/dL Assessment/Plan Problem List/Assessment/Plan 1) HARLEEN / ischemic ATN. 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 4) Respiratory failure REC: - noted plans for transfer to long-term acute care facility today - discussed with patient's mother regarding plan of care from Nephrology perspective. Dietary Evaluation Review Recommendations by RD: PPN/TPN Comments: 1) Increase TPN rate to meet at least 75% of estimated daily needs 2) Advance to renal cardiac diet when medically feasible, pending ST approval 3) Follow-up with cardiology, pulmonology, nephrology, neurology, and gastroenterology 4) Continue to monitor I&O, labs, and skin integrity Expected Outcomes/Goals: 1) nutritional support to meet at least 75% of estimated daily needs 2) labs and wound to improve 3) diet to advance 4) gradual wt loss 5) f/u in 2-3 days Plan discussed with: Other JACINDA RUSH MD Mar 02, 2025 15:47
--- NOTE | 2025-03-02 16:23 | DVHPN2 ---
Progress Note - Dictate Date Seen: Mar 02, 2025 Has the PT tested + for MRSA If YES, has PT been informed?: No Medical Necessity Reason Pt with a Central, PICC or Fol: Yes The following are medically ne: Mora Catheter Reason for mora catheter: Nakul. Abd Surgery, Strict I&O, Total Immobilization Subjective Mr. Gillis is a 24 years old gentleman with a history of asthma, gallstone, obesity, the patient was brought to the [facility] on 01/29/2025 with a chief complaint of witnessed cardiopulmonary arrest. I have seen and examined the patient, I have discussed with his nurse, his mouth brother are in the room. he remained nonresponsive, no change in the neurologic physical examination Levo 1 mcg/minute UDS, 01/29/2025 1616: Fentanyl, benzo Urinalysis, 01/29/2025: WBC: 1, urine leukocyte esterase: Negative ABG, 01/29/2025: Metabolic acidosis, 01/30/25: Metabolic acidosis VWF, 02/11/25: 380 WBC/HB/PLT/MCV, 01/29/2025: 20.1/8.3/234/107.4. 01/30/2025: 28.4/12.1/127/91.2, 02/24/2025: 10.2/10/417/89.6 PT/INR/PTT, 01/29/2025: 19.6/1.98/53.8. 01/30/2025: 13.6/1.32/28.7, 02/15/2025: 11.5/1.09/32.1, 02/24/25: 13/1.25/36.7 Na 01/29/2025: 146, 152, 01/30/2025: 147 BUN/CR, 01/30/2025: 29/4.34, 02/24/2025: 70/8.68 Lactic acid, 01/29/2025: 1749, 01/30/2025: 11.4 Troponin one high sensitivity, 01/29/2025: 2273, 4364, 7474 TBI/AST/ALT/AP, 01/29/2025: 1.3/676/700/136. 9/: 2.10/4635/2521/137 02/24/2025: 4.4/146/37/827 EEG, 02/01/2025: This is a remarkably abnormal EEG, this EEG seen in severe cerebral dysfunction due to metabolic/hypoxic encephalopathy or medication effects, unless this is caused by reversible etiology, this EEG is suggestive of a poor prognosis for meaningful recovery, please correlate clinically. CT head, 01/29/2025:No evidence of acute intracranial abnormality (I see signs suggestive of diffuse brain edema) CT head 01/30/2025: Diffuse cerebral edema with cerebellar tonsillar herniation. Recommend MRI brain for further evaluation. Critical Result: above finding CT head, 02/10/2025: Findings as above suggesting worsening diffuse cerebral edema in the setting of anoxic brain injury in the given clinical setting. Further clinical correlation is suggested. CT abdomen, pelvis, 01/29/2025: 1. Hepatic hematoma measuring up to approximately 8.6 cm in greatest dimension, as described above, with hemorrhage extending beyond the liver capsule and into the right pericolic gutter as well as into the pelvis. No definite active arterial bleeding is seen on this exam, although limited evaluation due to the timing of contrast, as this was not a CTA exam. 2. Postsurgical changes of cholecystectomy. 3. Dilated fluid-filled small bowel loops, may be due to postoperative ileus. No small bowel obstruction. 4. Small volume pneumoperitoneum, likely due to recent surgery. Small volume of gas are seen in the upper ventral abdomen from the recent surgery. 5. Dependent atelectasis in the lower lobes. Otherwise, no acute disease in the chest. 6. Endotracheal tube and enteric tube in place. 7. Atrophic right kidney incidentally noted. 8. Additional findings as described above Brain imaging flow, 02/03/2025: Findings described above, which would be consistent with brain in the appropriate clinical setting, however clinical correlation is needed. vital signs Vital Sign Date Time Temp Pulse Resp B/P (MAP) Pulse Ox O2 Delivery O2 Flow Rate FiO2 03/02/25 16:12 100/65 03/02/25 16:00 10 98 Mechanical Ventilator+ 35 35 03/02/25 16:00 96.5 59 96.5 02/28/25 16:41 40.0 Total Intake and Output 03/01/25 03/01/25 03/02/25 15:00 23:00 07:00 Intake Total 687.0 ml 529.0 ml 410.0 ml Output Total 350 ml 550 ml Balance 687.0 ml 179.0 ml -140.0 ml medications Current Medications Medications Dose Ordered Sig/Serenity Route Start Time Stop Time Status Last Admin Dose Admin Sodium Chloride 10 ml QSHIFT@10,22 IV 02/04/25 22:00 03/02/25 07:34 10 ML Artificial Tears 1 drop Q4HP PRN EACHEYE 02/08/25 07:30 02/27/25 12:47 1 DROP Epoetin Gunnar-epbx 8,000 unit MWF@2100 SC 02/17/25 21:00 02/28/25 20:48 8,000 UNIT Piperacillin Sod/ Tazobactam Sod 50 ml @ 12.5 mls/hr Q8H IV 02/23/25 10:00 03/02/25 07:35 12.5 MLS/HR Pantoprazole Sodium 40 mg DAILY IV 02/24/25 10:00 03/02/25 07:34 40 MG Metoclopramide HCl 5 mg Q6HR IV 02/24/25 00:00 03/02/25 11:54 5 MG Erythromycin 250 mg Q6HR PO 02/24/25 18:00 03/02/25 11:54 250 MG Amino Acids/ Electrolytes/ Dextrose 1,000 ml @ 42 mls/hr DAILY@2200 IV 02/24/25 22:00 03/02/25 21:59 03/01/25 20:44 42 MLS/HR Enteral Nutritional Formula 1,000 ml 1000 GT 02/25/25 10:00 02/28/25 05:55 1,000 ML Diagnostic Test (Pha) 1 strip Q6HR 02/25/25 18:00 03/02/25 11:54 1 STRIP Insulin Human Regular FOLLOW SLIDING SCALE Q6HR SC 02/25/25 18:00 Dextrose 50 ml UD IV 02/25/25 18:00 Midodrine 10 mg TID@0600,1200,1800 PO 02/27/25 06:00 03/02/25 11:54 10 MG Vasopressin 20 units/Sodium Chloride 100 ml @ 3 mls/hr Q24H IV 02/28/25 17:30 03/02/25 01:15 3 MLS/HR Norepinephrine Bitartrate 250 ml @ 1.875 mls/ hr Q24H IV 02/28/25 18:00 03/02/25 16:12 1.875 MLS/HR Amino Acids 0 ml @ 0 mls/hr PER PHARMACY IV 03/02/25 07:15 Fat Emulsion Intravenous 100 ml/Sodium Chloride 20 meq/ Sodium Acetate 40 meq/Potassium Chloride 40 meq/ Magnesium Sulfate 4 meq/ Multivitamins 10 ml/Chromium/ Copper/Manganese/ Zinc 1 ml/Amino Acids/Dextrose 957 ml @ 40 mls/hr [id number] IV 03/02/25 22:00 03/03/25 21:59 objective The patient is well-nourished and well-developed with no distress MENTAL STATUS: Subjective CRANIAL NERVES: Pupils are equal, round, dilated and fixed. There are no corneal reflexes, no doll's eyes phenomenon. No signs of facial weakness. There are no gagging or coughing reflexes SENSATION: No responses to pain stimuli. MOTOR: Normal tone in the upper and lower extremity. Normal muscle bulk. No fasciculations. No spontaneous movement. REFLEXES: Deep tendon reflexes are symmetrical. No pathological reflexes. CEREBELLAR/COORDINATION: Deferred GAIT/STATION: deferred. laboratory and microbiology Laboratory Tests 03/02/25 04:09 Test 03/02/25 04:09 Range/Units Serum Glucose 86 74-106 mg/dL Problem List Cardiopulmonary arrest Status post CPR Coma Hypoxic encephalopathy Metabolic encephalopathy Diffuse brain edema Brain herniation Hepatic hematoma Sepsis Septic shock Hypovolemic shock Liver failure Acute kidney failure Anemia Status post tracheostomy Status post PEG insertion Assessment/Plan Monitoring Supportive treatment Follow-up labs ICU care Respiratory support/vent management Stabilize vitals/pressor drip p.r.n. Oxygen IV antibiotics GI prophylaxis Surgery on case Infectious disease on case Cardiology on case Nephrology on case Pulmonolog on case More recommendation per clinical course He likely has a poor prognosis for meaningful/overall recovery This medical document was created using an electronic medical record system with [employer] dictation system. Although this document has been carefully reviewed, there may still be some phonetic and typographical errors. These areas are purely typographical due to imperfections of the software programs, and do not reflect any compromise in the patient's medical care. More recommendation per clinical course Prognosis guarded Dietary Evaluation Review Recommendations by RD: PPN/TPN Comments: 1) Increase TPN rate to meet at least 75% of estimated daily needs 2) Advance to renal cardiac diet when medically feasible, pending ST approval 3) Follow-up with cardiology, pulmonology, nephrology, neurology, and gastroenterology 4) Continue to monitor I&O, labs, and skin integrity Expected Outcomes/Goals: 1) nutritional support to meet at least 75% of estimated daily needs 2) labs and wound to improve 3) diet to advance 4) gradual wt loss 5) f/u in 2-3 days Plan discussed with: Other ALONZO MILLARD MD Mar 02, 2025 16:23
--- NOTE | 2025-03-02 18:30 | DVHPN2 ---
Progress Note Date Seen: Mar 02, 2025 Has the PT tested + for MRSA If YES, has PT been informed?: No Medical Necessity Reason Pt with a Central, PICC or Fol: Yes The following are medically ne: Mora Catheter Reason for mora catheter: Nakul. Abd Surgery, Strict I&O, Total Immobilization Subjective Review of Systems Pt's mother and brother at the bedside. Pt has been switched to Levophed, currently at 10 mcg/kg. Vasopressin off. Had bradycardia 50s. Objective vital signs Vital Sign Date Time Temp Pulse Resp B/P (MAP) Pulse Ox O2 Delivery O2 Flow Rate FiO2 03/02/25 16:12 100/65 03/02/25 16:00 10 98 Mechanical Ventilator+ 35 35 03/02/25 16:00 96.5 59 96.5 02/28/25 16:41 40.0 Total Intake and Output 03/01/25 03/01/25 03/02/25 15:00 23:00 07:00 Intake Total 687.0 ml 529.0 ml 410.0 ml Output Total 350 ml 550 ml Balance 687.0 ml 179.0 ml -140.0 ml medications Current Medications Medications Dose Ordered Sig/Serenity Route Start Time Stop Time Status Last Admin Dose Admin Sodium Chloride 10 ml QSHIFT@10,22 IV 02/04/25 22:00 03/02/25 07:34 10 ML Artificial Tears 1 drop Q4HP PRN EACHEYE 02/08/25 07:30 02/27/25 12:47 1 DROP Epoetin Gunnar-epbx 8,000 unit MWF@2100 SC 02/17/25 21:00 02/28/25 20:48 8,000 UNIT Piperacillin Sod/ Tazobactam Sod 50 ml @ 12.5 mls/hr Q8H IV 02/23/25 10:00 03/02/25 17:42 12.5 MLS/HR Pantoprazole Sodium 40 mg DAILY IV 02/24/25 10:00 03/02/25 07:34 40 MG Metoclopramide HCl 5 mg Q6HR IV 02/24/25 00:00 03/02/25 17:42 5 MG Erythromycin 250 mg Q6HR PO 02/24/25 18:00 03/02/25 17:43 250 MG Amino Acids/ Electrolytes/ Dextrose 1,000 ml @ 42 mls/hr DAILY@2200 IV 02/24/25 22:00 03/02/25 21:59 03/01/25 20:44 42 MLS/HR Enteral Nutritional Formula 1,000 ml 1000 GT 02/25/25 10:00 02/28/25 05:55 1,000 ML Diagnostic Test (Pha) 1 strip Q6HR 02/25/25 18:00 03/02/25 17:34 1 STRIP Insulin Human Regular FOLLOW SLIDING SCALE Q6HR SC 02/25/25 18:00 Dextrose 50 ml UD IV 02/25/25 18:00 Midodrine 10 mg TID@0600,1200,1800 PO 02/27/25 06:00 03/02/25 17:43 10 MG Vasopressin 20 units/Sodium Chloride 100 ml @ 3 mls/hr Q24H IV 02/28/25 17:30 03/02/25 01:15 3 MLS/HR Norepinephrine Bitartrate 250 ml @ 1.875 mls/ hr Q24H IV 02/28/25 18:00 03/02/25 16:12 1.875 MLS/HR Amino Acids 0 ml @ 0 mls/hr PER PHARMACY IV 03/02/25 07:15 Fat Emulsion Intravenous 100 ml/Sodium Chloride 20 meq/ Sodium Acetate 40 meq/Potassium Chloride 40 meq/ Magnesium Sulfate 4 meq/ Multivitamins 10 ml/Chromium/ Copper/Manganese/ Zinc 1 ml/Amino Acids/Dextrose 957 ml @ 40 mls/hr [id number] IV 03/02/25 22:00 03/03/25 21:59 Examination Neuro. Unchanged. Dilated fixed pupils. No reflexes. Pt has been moving for last 1-2 weeks. Do not seem purposeful. CV. HR 60s BP 99/62. Levophed 10 mcg/kg. Previous LSCV HD catheter site C/D/I. Right PC and PICC catheter exit sites remain C/D/I. Pulmonary: Tracheostomy in place. wound sutures removed. No active bleeding. C/D/I. Mechanical ventilator support 550/10/35%/+7. RR 11/min on vent display. GI: Soft, obese, nondistended and non tender. Incisions and dressing C/D/I. PEG in place. No further bleeding from PEG. TF on hold . Mora catheter in place. Clear yellow urine in collection bag Extremities. No edema Mild orbital edema Skin: Resolved jaundice laboratory and microbiology Laboratory Tests 03/02/25 04:09 Test 03/02/25 04:09 Range/Units Serum Glucose 86 74-106 mg/dL Microbiology Date/Time Source Procedure Growth Status 02/22/25 21:21 Urine - Mora Port Urine Culture - Final Complete 02/20/25 09:30 Blood Blood Culture - Final NO GROWTH AFTER 5 DAYS OF INCUBATION. Complete 02/19/25 11:44 Trachea Gram Stain - Final Complete 02/19/25 11:44 Respiratory Culture - Final Klebsiella pneumoniae Complete 01/29/25 10:43 Sputum Gram Stain - Final Complete 01/29/25 10:43 Sputum Respiratory Culture - Final Complete Labs and/or images reviewed: Labs reviewed by me Problem List/Assessment/Plan Problem List/Assessment/Plan Neuro: Appreciate neurology input and assistance. CT revealed cerebral edema and tonsillar herniation.EEG no electric activity. Cerebral perfusion study confirmed no perfusion radiographically consistent with brain which was concordant with initial clinical diagnosis and EEG. However, pt continues demonstrating brainstem function as he is breathing over vent set rate. Fluctuating HR, RR, BP and temperature. Could be secondary to autonomic dysfunction. F/U (3rd) CT brain worsening cerebral edema and tonsillar herniation. CV:Hemodynamically labile. Levophed as needed. Bradycardic. Possible autonomic dysfunction. Continue Midodrine to 10 mg via PEG TID. Cardiology assistance appreciated. Mechanical DVT prophylaxis.Pulmonary hypertension possibly unknowingly preexistent. Duplex negative for DVT Pulmonary: VDRF. S/p tracheostomy. O2 Sat 99%. Continue ventilator. Sputum Cx Klebsiella pneumoniae sensitive to Zosyn. Anticipated D/C date 03/05 to complete 2 weeks of IV Abx. Continue ventilator support. Appreciate pulmonary medicine assistance. Pulmonary medicine following. GI: Continue BID GI prophylaxis. Stable LFTs. Possible TPN related cholestasis. TF on hold. Erythromycin as prokinetic.Continue Clinimix for now. Several AXR negative for ileus or SBO. TPN and closely monitor LFTs. : ARF/ATN. Strict I&O. Mora to gravity. Appreciate nephrology assistance. Replace/correct electrolytes, and HD per nephrology. Clinimix at 42 mL/hr. Initiate TPN. Heme/ID: WBC 11. Hgb stable. All Cx negative besides respiratory culture with Klebsiella PNA, which continues under Tx. UCx final negative. Minimizing blood draw frequency to avoid worsening anemia. Repeat labs AM. Appreciate hematology assistance. Continue Zosyn for Klebsiella pneumoniae PNA, D/C date 03/05 to complete 2 weeks. Endocrine: Tight glycemic control. Cortisol level normal. TSH normal, T3 and T4 low. ? subclinical hypothyroidism. IM stated that normal TSH, no need for replacement therapy. Skin: Skin care and pressure ulcer precautions. Signed out to Dr. Patten at [facility].Pt being transferred [facility]. Assistance from all medical and nursing staff is greatly appreciated by family and myself. Plan discussed with: Other (Mother, brother and RN) My Orders My Orders Orders - JITENDRA ZAMORA MD Procedure Category Date Status Time Tpn Per Pharmacy PHA 03/02/25 In Process 07:15 Ventilator Orders RT 03/02/25 Transmitted 07:45 Amino Acid PHA 03/02/25 In Process Infusion... W/Fat 22:00 Magnesium LAB 03/03/25 Verified 04:00 Phosphorus LAB 03/03/25 Verified 04:00 Triglycerides LAB 03/03/25 Verified 04:00 Tpn Per Pharmacy YANET 03/02/25 In Process 22:00 Dietary Evaluation Review Recommendations by RD: PPN/TPN Comments: 1) Increase TPN rate to meet at least 75% of estimated daily needs 2) Advance to renal cardiac diet when medically feasible, pending ST approval 3) Follow-up with cardiology, pulmonology, nephrology, neurology, and gastroenterology 4) Continue to monitor I&O, labs, and skin integrity Expected Outcomes/Goals: 1) nutritional support to meet at least 75% of estimated daily needs 2) labs and wound to improve 3) diet to advance 4) gradual wt loss 5) f/u in 2-3 days JITENDRA ZAMORA MD Mar 02, 2025 18:30
[2025-03-02] MEDS ORDERED: TPN PER PHARMACY IV NR (22:00)
== END 2025-03-02 20:50 | DRG 4 ==
LOC: ER 09:26 → EDBD 09:26 → OVERFLOW 13:50 → ICU CENTRL 18:57 → ICU WEST 01-30 04:50
PROC: 5A1955Z Respiratory Ventilation, Greater than 96 Consecutive Hours (ICD-10-PCS; 2025-01-29)
PROC: 0F9 Hepatobiliary System and Pancreas, Drainage (ICD-10-PCS; 2025-01-29)
PROC: 02HV33Z Insertion of Infusion Device into Superior Vena Cava, Percutaneous Approach (ICD-10-PCS; 2025-01-29)
PROC: 0BH17EZ Insertion of Endotracheal Airway into Trachea, Via Natural or Artificial Opening (ICD-10-PCS; 2025-01-29)
PROC: 30233K1 Transfusion of Nonautologous Frozen Plasma into Peripheral Vein, Percutaneous Approach (ICD-10-PCS; 2025-01-29)
PROC: 30233N1 Transfusion of Nonautologous Red Blood Cells into Peripheral Vein, Percutaneous Approach (ICD-10-PCS; 2025-01-29)
PROC: 30233M1 Transfusion of Nonautologous Plasma Cryoprecipitate into Peripheral Vein, Percutaneous Approach (ICD-10-PCS; 2025-01-29)
PROC: 2W43X5Z Packing of Abdominal Wall using Packing Material (ICD-10-PCS; 2025-01-30)
PROC: 02HV33Z Insertion of Infusion Device into Superior Vena Cava, Percutaneous Approach (ICD-10-PCS; 2025-02-01)
PROC: B548ZZA Ultrasonography of Superior Vena Cava, Guidance (ICD-10-PCS; 2025-02-01)
PROC: 30233R1 Transfusion of Nonautologous Platelets into Peripheral Vein, Percutaneous Approach (ICD-10-PCS; 2025-02-01)
PROC: 5A1D70Z Performance of Urinary Filtration, Intermittent, Less than 6 Hours Per Day (ICD-10-PCS; 2025-02-02)
PROC: 2W53X5Z Removal of Packing Material on Abdominal Wall (ICD-10-PCS; principal; 2025-02-02 07:39)
PROC: 5A1D70Z Performance of Urinary Filtration, Intermittent, Less than 6 Hours Per Day (ICD-10-PCS; 2025-02-03)
PROC: 02HV33Z Insertion of Infusion Device into Superior Vena Cava, Percutaneous Approach (ICD-10-PCS; 2025-02-04)
PROC: B548ZZA Ultrasonography of Superior Vena Cava, Guidance (ICD-10-PCS; 2025-02-04)
PROC: 03HY32Z Insertion of Monitoring Device into Upper Artery, Percutaneous Approach (ICD-10-PCS; 2025-02-04)
PROC: 5A1D70Z Performance of Urinary Filtration, Intermittent, Less than 6 Hours Per Day (ICD-10-PCS; 2025-02-05)
PROC: 5A1D70Z Performance of Urinary Filtration, Intermittent, Less than 6 Hours Per Day (ICD-10-PCS; 2025-02-07)
PROC: 5A1D70Z Performance of Urinary Filtration, Intermittent, Less than 6 Hours Per Day (ICD-10-PCS; 2025-02-10)
PROC: 5A1D70Z Performance of Urinary Filtration, Intermittent, Less than 6 Hours Per Day (ICD-10-PCS; 2025-02-11)
PROC: 5A1D70Z Performance of Urinary Filtration, Intermittent, Less than 6 Hours Per Day (ICD-10-PCS; 2025-02-14)
PROC: 0JH63XZ Insertion of Tunneled Vascular Access Device into Chest Subcutaneous Tissue and Fascia, Percutaneous Approach (ICD-10-PCS; 2025-02-14)
PROC: 02H633Z Insertion of Infusion Device into Right Atrium, Percutaneous Approach (ICD-10-PCS; 2025-02-14)
PROC: B5181ZA Fluoroscopy of Superior Vena Cava using Low Osmolar Contrast, Guidance (ICD-10-PCS; 2025-02-14)
PROC: B548ZZA Ultrasonography of Superior Vena Cava, Guidance (ICD-10-PCS; 2025-02-14)
PROC: 5A1D70Z Performance of Urinary Filtration, Intermittent, Less than 6 Hours Per Day (ICD-10-PCS; 2025-02-16)
PROC: 0DJ08ZZ Inspection of Upper Intestinal Tract, Via Natural or Artificial Opening Endoscopic (ICD-10-PCS; 2025-02-17)
PROC: 0B110F4 Bypass Trachea to Cutaneous with Tracheostomy Device, Open Approach (ICD-10-PCS; 2025-02-17)
PROC: 5A1D70Z Performance of Urinary Filtration, Intermittent, Less than 6 Hours Per Day (ICD-10-PCS; 2025-02-17)
PROC: 0DH63UZ Insertion of Feeding Device into Stomach, Percutaneous Approach (ICD-10-PCS; 2025-02-19)
PROC: 5A1D70Z Performance of Urinary Filtration, Intermittent, Less than 6 Hours Per Day (ICD-10-PCS; 2025-02-19)
PROC: 5A1D70Z Performance of Urinary Filtration, Intermittent, Less than 6 Hours Per Day (ICD-10-PCS; 2025-02-21)
PROC: 5A1D70Z Performance of Urinary Filtration, Intermittent, Less than 6 Hours Per Day (ICD-10-PCS; 2025-02-24)
PROC: 5A1D70Z Performance of Urinary Filtration, Intermittent, Less than 6 Hours Per Day (ICD-10-PCS; 2025-02-26)
PROC: 5A1D70Z Performance of Urinary Filtration, Intermittent, Less than 6 Hours Per Day (ICD-10-PCS; 2025-02-28)
DX: A41.9 Sepsis, unspecified organism (principal); D65 Disseminated intravascular coagulation [defibrination syndrome]; I46.9 Cardiac arrest, cause unspecified; G93.1 Anoxic brain damage, not elsewhere classified; N17.0 Acute kidney failure with tubular necrosis; K72.01 Acute and subacute hepatic failure with coma; G93.41 Metabolic encephalopathy; K66.1 Hemoperitoneum; R57.8 Other shock; R57.0 Cardiogenic shock; R65.21 Severe sepsis with septic shock; R57.1 Hypovolemic shock; K91.841 Postprocedural hemorrhage of a digestive system organ or structure following other procedure; G93.6 Cerebral edema; G93.5 Compression of brain; D62 Acute posthemorrhagic anemia; E88.09 Other disorders of plasma-protein metabolism, not elsewhere classified; J96.01 Acute respiratory failure with hypoxia; E87.5 Hyperkalemia; N26.1 Atrophy of kidney (terminal); N28.81 Hypertrophy of kidney; E16.2 Hypoglycemia, unspecified; E87.20 Acidosis, unspecified; E87.0 Hyperosmolality and hypernatremia; I27.20 Pulmonary hypertension, unspecified; I21.A1 Myocardial infarction type 2; J45.909 Unspecified asthma, uncomplicated; Y83.8 Other surgical procedures as the cause of abnormal reaction of the patient, or of later complication, without mention of misadventure at the time of the procedure; Y82.8 Other medical devices associated with adverse incidents; R74.01 Elevation of levels of liver transaminase levels; K76.89 Other specified diseases of liver; E87.6 Hypokalemia; J98.11 Atelectasis; E66.01 Morbid (severe) obesity due to excess calories; E86.1 Hypovolemia; I42.9 Cardiomyopathy, unspecified; J90 Pleural effusion, not elsewhere classified; T79.7XXA Traumatic subcutaneous emphysema, initial encounter; E55.9 Vitamin D deficiency, unspecified; K66.0 Peritoneal adhesions (postprocedural) (postinfection); R13.10 Dysphagia, unspecified; K94.21 Gastrostomy hemorrhage; Z99.11 Dependence on respirator [ventilator] status; Z68.35 Body mass index [BMI] 35.0-35.9, adult; Z90.49 Acquired absence of other specified parts of digestive tract; Y92.89 Other specified places as the place of occurrence of the external cause; Z99.2 Dependence on renal dialysis; Z79.899 Other long term (current) drug therapy
CPT/HCPCS: 31500; 36415; 36430; 36556; 36558; 36569; 36600; 36620; 70450; 70490; 71045; 71250; 71260; 74018; 74176; 74177; 76775; 78606; 80048; 80053; 80202; 80307; 81001; 82140; 82248; 82306; 82533; 82570; 82805; 82962; 83010; 83605; 83615; 83735; 84100; 84132; 84156; 84300; 84436; 84439; 84443; 84478; 84480; 84481; 84484; 85007; 85014; 85018; 85025; 85027; 85246; 85384; 85610; 85730; 86704; 86706; 86708; 86803; 86850; 86900; 86901; 86920; 87040; 87070; 87077; 87081; 87086; 87186; 87205; 87340; 90935; 93005; 93306; 93970; 93971; 94002; 94003; 94640; 95819; 99152; 99291; 99292; C1894; G0378; J0169; J0694; J1100; J1642; J1815; J2003; J2250; J2470; J2543; J3430; J3480; J3490; J7042; J7060; J7131; J7168; P9047